=== PATIENT | female | born 1950 | race Caucasian/White ===

== ENCOUNTER → 2019-11-22 09:30 | Outpatient (BNVA) | payer SELFPAY | PROVIDERS: PCP Internal Medicine; Referring Provider Internal Medicine; Visit Provider Dietitian, Registered | DX: Z76.89 Persons encountering health services in other specified circumstances (principal) ==

== ENCOUNTER → 2019-11-29 13:09 | Outpatient (BNVA) | payer SELFPAY | PROVIDERS: PCP Internal Medicine; Referring Provider Internal Medicine; Visit Provider Dietitian, Registered | DX: Z76.89 Persons encountering health services in other specified circumstances (principal) ==

== ENCOUNTER 2019-12-12 17:15 | Emergency (ER) | payer BC, SELFPAY ==
[2019-12-12 17:20] VITALS: BP 162/72; PULSE 63; RESP 16; TEMP 36.3; O2SAT 93
--- NOTE | 2019-12-12 18:13 | CT_ITS ---
EXAMINATION: CT HEAD WITHOUT CONTRAST CT FACIAL BONES WITHOUT CONTRAST CLINICAL INFORMATION: Fall. Pain. COMPARISON: CT head 12/28/2013 TECHNIQUE: Imaging was performed from the skull base to vertex without intravenous administration of contrast. In addition, helical noncontrast CT imaging was acquired through the facial bones and source images were reviewed along with axial reconstructions and sagittal and coronal MPRs. [This CT examination was performed using dose optimization techniques as appropriate, variously including the following: *Automated exposure control *Adjustment of mA and/or kV according to patient size (this includes techniques or standardized protocols for targeted exams where dose is matched to indication/reason for exam; i.e. extremities or head) *Use of iterative reconstruction technique] DLP: 831 mGy-cm FINDINGS: HEAD: No intracranial mass, hemorrhage, or midline shift is visualized. The ventricles and sulci are age-appropriate. No extra-axial collections are identified. FACIAL BONES: There is no evidence of an acute facial bone fracture. The paranasal sinuses are well aerated. The orbits are unremarkable in appearance. CT/CT facial bones wo con IMPRESSION: No acute intracranial process or discrete facial bone fracture.
--- NOTE | 2019-12-12 18:13 | CT_ITS ---
EXAMINATION: CT HEAD WITHOUT CONTRAST CT FACIAL BONES WITHOUT CONTRAST CLINICAL INFORMATION: Fall. Pain. COMPARISON: CT head 12/28/2013 TECHNIQUE: Imaging was performed from the skull base to vertex without intravenous administration of contrast. In addition, helical noncontrast CT imaging was acquired through the facial bones and source images were reviewed along with axial reconstructions and sagittal and coronal MPRs. [This CT examination was performed using dose optimization techniques as appropriate, variously including the following: *Automated exposure control *Adjustment of mA and/or kV according to patient size (this includes techniques or standardized protocols for targeted exams where dose is matched to indication/reason for exam; i.e. extremities or head) *Use of iterative reconstruction technique] DLP: 831 mGy-cm FINDINGS: HEAD: No intracranial mass, hemorrhage, or midline shift is visualized. The ventricles and sulci are age-appropriate. No extra-axial collections are identified. FACIAL BONES: There is no evidence of an acute facial bone fracture. The paranasal sinuses are well aerated. The orbits are unremarkable in appearance. CT/CT head/brain wo con IMPRESSION: No acute intracranial process or discrete facial bone fracture.
--- NOTE | 2019-12-12 18:13 | XR_ITS ---
EXAMINATION: XR HIP, RIGHT CLINICAL INFORMATION: Pain status post fall COMPARISON: 09/20/2019 TECHNIQUE: Single view pelvis with 2 additional views of the right hip. FINDINGS: Again noted is a right total hip prosthesis which appears intact and in good position. Compared with the prior studies, fragmentation of the greater trochanter and lesser trochanter is unchanged. No acute fractures are seen. A pessary is present. Marked degenerative changes present in the spine. XR/XR hip RT w PEL1V IMPRESSION: No acute pelvic or hip fracture status post fall.
--- NOTE | 2019-12-12 18:21 | ED.FALL ---
HPI - Fall General Chief Complaint: Fall Stated Complaint: fall Time Seen by Provider: 12/12/19 18:13 Source: patient Mode of arrival: ambulatory Limitations: no limitations History of Present Illness HPI Narrative: 69-year-old female presenting ambulatory via triage with complaint of states she was looking to daughter's house and she slipped and fell in her driveway falling forward hitting her left side face specifically the cheek area on the ground resulting in abrasion. States she called her primary care doctor given that she had pain at the site and slight headache told to get evaluated for this she went to urgent care and was referred here. She reports slight pain at the site where she has an abrasion on the left-sided cheek as well as slight headache and also from the fall she has pain in the right hip she does mention that she had a total right hip replacement done 6 months ago. She did ambulating from triage. She states she is up-to-date on tetanus vaccination. Denies any other injury or fall. Denies any prodromal symptoms. No recent illness. No fever chills, neck, torso or upper extremity pain. MD complaint: fall Onset (ago): hour(s) Fall from: standing Fall witnessed: yes, by family Place fall occurred: home Loss of consciousness: none Prolonged down time: no Symptoms prior to fall: none Severity: mild Severity scale (1-10): 3 Associated symptoms (after fall): denies Related Data Previous Rx's Medication Instructions Recorded doxycycline monohydrate 100 mg PO BID 7 Days #14 cap 12/12/19 Allergies Allergy/AdvReac Type Severity Reaction Status Date / Time No Known Allergies Allergy Unverified 10/27/19 15:10 [No Known Allergies*] Pt states no known allergy to Allergy Unknown Uncoded 09/20/19 00:00 Review of Systems Review of Systems: Constitutional: No Weight loss, No Fever, No Chills, No Night Sweats, No Fatigue, No Malaise ENT/Mouth: No Hearing loss, No Ear Pain, No Nasal Congestion, No Sinus Pain, No Hoarseness, No sore throat, No Rhinorrhea, No Swallowing Difficulty Eyes: No Eye Pain, No Swelling, No Redness, No Foreign Body, No Discharge, No Vision Changes Cardiovascular: No Chest Pain, No SOB, No Dyspnea on Exertion, No Orthopnea, No Edema, No Palpitations Respiratory: No Cough, No Sputum, No Wheezing, No Smoke Exposure, No Dyspnea Gastrointestinal: No Nausea, No Vomiting, No Diarrhea, No Constipation, No abdominal Pain, No Hematochezia, No Melena Genitourinary: no irregular bleeding, No Dysuria, No Urinary Frequency, No Hematuria, No Urinary Incontinence, No Urgency, No Flank Pain, No Urinary Flow Changes, No Hesitancy Musculoskeletal: as noted uin HPI Skin: No Skin Lesions, No rash Neuro: No Weakness, No Numbness, No Paresthesias, No Loss of Consciousness, No Dizziness, No Headache Psych: No Anxiety/Panic, No Depression, No SI/HI/AH/VH, No Social Issues Heme/Lymph: No Bruising, No Bleeding,No Lymphadenopathy Endocrine: No Polyuria, No Polydipsia, No Temperature Intolerance Yes all other systems are reviewed and are negative [facility] Past Medical History Attestation statement: The following information was validated with the patient. Medical History Asthma Hypertension Surgical History S/P laparoscopic sleeve gastrectomy Social History Social History Alcohol intake: never Smoked in Last 30 Days: No Use of substances other than those prescribed or required for medical reasons: No Advance Directives: No Advance Directives Information Provided: No Physical Exam Vital Signs: Vital Signs: Vital Signs Temp Pulse Resp BP Pulse Ox 12/12/19 17:20 97.4 F 63 16 162/72 H 93 Body Mass Index 0.0 Reviewed Const: General: cooperative and healthy appearing; No acute distress or intoxicated appearing Nutritional Appearance: average body habitus Orientation/consciousness: patient oriented x3 HENMT: Other: Head: Yes normal to inspection Ears: hearing grossly normal bilaterally Eyes: General: appearance normal, both eyes and all related structures Visual Beaulieu: normal visual beaulieu by confrontation Neck: Neck: Yes normal visual inspection and No tender Thyroid: Thyroid normal Chest: Chest palpation & inspection: normal inspection of the chest Resp: Effort & Inspection: normal respiratory effort Cardio: Jugular venous distension: no JVD GI: Inspection: Yes normal to inspection Percussion: Yes normal to percussion Auscultation: normal bowel sounds : General: Yes no CVA tenderness Back/Spine/Pelvis: Back: no CVA tenderness Skin: General skin exam: no rashes or lesions noted Neuro: General: patient oriented x3 Extrem: General: Yes normal to inspection Course Course Course Narrative: imaging unremarkable. Abrasion to the left side cheek with slight erythema will go ahead and start empiric antibiotics. She is already up-to-date on tetanus vaccination. Findings/ plan reviewed. Patient ambulatory with steady gait to the bathroom. Clear precaution return follow-up instructions provided. Stable for discharge. MDM - Fall Imaging Data right hip with pelvis x-ray: Radiologist's impression: [address] [address] XRay Report Signed Patient: Shilpa Hartman#: [id number] : 1950cct:[id number] Age/Sex: 69 / FADM Date: 12/12/19 Loc: HO.ED Attending Dr: Ordering Physician: José Luis Bhatia NP Date of Service: 12/12/19 Procedure(s): XR hip RT w PEL1V Accession Number(s): [id number] cc: José Luis Bhatia [employer]~ EXAMINATION: XR HIP, RIGHT CLINICAL INFORMATION: Pain status post fall COMPARISON: 09/20/2019 TECHNIQUE: Single view pelvis with 2 additional views of the right hip. FINDINGS: Again noted is a right total hip prosthesis which appears intact and in good position. Compared with the prior studies, fragmentation of the greater trochanter and lesser trochanter is unchanged. No acute fractures are seen. A pessary is present. Marked degenerative changes present in the spine. XR/XR hip RT w PEL1V IMPRESSION: No acute pelvic or hip fracture status post fall. Dictated By:ISH PARKER MD Signed By:<Electronically signed by ISH PARKER MD in [place]>12/12/19 1847 DD/ 1813 TD/TT: Information Engineer: DANA head/maxillofacial CT: Radiologist's impression: Shilpa Hartman 69 F [address] [address] [address] Scan Report Signed Patient: Shilpa Hartman#: [id number] : 1950cct:[id number] Age/Sex: 69 / FADM Date: 12/12/19 Loc: HO.ED Attending Dr: Ordering Physician: José Luis Bhatia NP Date of Service: 12/12/19 Procedure(s): CT facial bones wo con Accession Number(s): [id number] cc: José Luis Bhatia [employer]~ EXAMINATION: CT HEAD WITHOUT CONTRAST CT FACIAL BONES WITHOUT CONTRAST CLINICAL INFORMATION: Fall. Pain. COMPARISON: CT head 12/28/2013 TECHNIQUE: Imaging was performed from the skull base to vertex without intravenous administration of contrast. In addition, helical noncontrast CT imaging was acquired through the facial bones and source images were reviewed along with axial reconstructions and sagittal and coronal MPRs. [This CT examination was performed using dose optimization techniques as appropriate, variously including the following: *Automated exposure control *Adjustment of mA and/or kV according to patient size (this includes techniques or standardized protocols for targeted exams where dose is matched to indication/reason for exam; i.e. extremities or head) *Use of iterative reconstruction technique] DLP: 831 mGy-cm FINDINGS: HEAD: No intracranial mass, hemorrhage, or midline shift is visualized. The ventricles and sulci are age-appropriate. No extra-axial collections are identified. FACIAL BONES: There is no evidence of an acute facial bone fracture. The paranasal sinuses are well aerated. The orbits are unremarkable in appearance. CT/CT facial bones wo con IMPRESSION: No acute intracranial process or discrete facial bone fracture. Dictated By:ORA JC MD Signed By:<Electronically signed by ORA JC MD in [place]>12/12/191908 DD/ 12 TD/TT: Information Engineer: YOHAN Discharge Plan Discharge Clinical Impression: Abrasion of face, Fall, Contusion of hip, right Patient Disposition: Home, Self-Care Instructions: Fall Prevention for Older Adults (ED), Abrasion (ED), Hip Contusion (ED) Prescriptions: New doxycycline monohydrate 100 mg capsule 100 mg PO BID 7 Days Qty: 14 RF: 0 Referrals: Eddie Messina MD [Primary Care Provider] - 1 week
[2019-12-12] MEDS: Acetaminophen 325 MG TABLET 975 MG PO (19:18)
--- NOTE | 2019-12-12 20:10 | PC.NURSE ---
ASSUMED CARE OF PT. PT SITTING UP IN STRETCHER C/O PAIN TO FACE. PT ALERT, RESPIRATIONS EASY, N/L. PA IN ROOM FOR RE-EVAL. AWAITING FURTHER ORDERS,
== END 2019-12-12 20:36 | disposition home or self-care (01) ==
PROVIDERS: Emergency Provider Emergency Medicine; PCP Internal Medicine
DX: S00.81XA Abrasion of other part of head, initial encounter (principal); S70.01XA Contusion of right hip, initial encounter; M25.551 Pain in right hip; R51.9 Headache, unspecified; W01.0XXA Fall on same level from slipping, tripping and stumbling without subsequent striking against object, initial encounter; Y93.01 Activity, walking, marching and hiking; Y92.488 Other paved roadways as the place of occurrence of the external cause; Y99.9 Unspecified external cause status
CPT/HCPCS: 70450; 70486; 73502; 99284

== ENCOUNTER 2019-12-15 13:11 | Outpatient (REF) | payer BC, SELFPAY ==
[2019-12-15 13:40] LABS: MANUAL DIFF FLAG NO
[2019-12-15 13:48] LABS: Basophils Absolute Auto 0.1 X10*3/uL (0.0-0.2); Basophils Percent Auto 0.9 % (0-2); Eosinophils Absolute Auto 0.1 X10*3/uL (0.0-0.4); Eosinophils Percent Auto 1.3 % (0-4); Hematocrit 42.4 % (37-47); Hemoglobin 13.6 g/dl (12.0-16.0); Imm Gran Abs Auto 0.03 X10*3/uL (0.00-0.03); Imm Gran Pct Auto 0.4 % (0.0-0.4); Lymphocytes Absolute Auto 2.5 X10*3/uL (1.2-4.9); Lymphocytes Percent Auto 33.7 % (20-40); Mean Corpuscular HGB Conc 32.1 g/dl (31.0-35.0); Mean Corpuscular Hemoglobin 28.9 pg (27.0-33.0); Mean Platelet Volume 10.9 fL (9.4-12.3); Monocytes Absolute Auto 0.7 X10*3/uL (0.1-1.2); Monocytes Percent Auto 8.9 % (2-11); Neutrophils Absolute Auto 4.1 X10*3/uL (2.0-8.3); Neutrophils Percent Auto 54.8 % (45-73); Platelet Count 222 X10*3/uL (160-400); Red Blood Count 4.71 X10*6/uL (4.20-5.50); Red Cell Distribution Width 14.5 % (11.0-16.0); White Blood Count 7.5 X10*3/uL (4.8-10.8)
[2019-12-15 14:08] LABS: Alanine Aminotransferase 40 U/L (0-31); Albumin Level 4.1 g/dL (3.5-5.0); Alkaline Phosphatase 108 U/L (39-117); Anion Gap 10 (12-20); Aspartate Amino Transferase 41 U/L (5-31); Bilirubin Total 0.3 mg/dL (0.0-1.0); Blood Urea Nitrogen 25 mg/dL (9-16); Calcium 9.6 mg/dL (8.4-10.2); Carbon Dioxide 31 mmol/L (22-29); Chloride 103 mmol/L (96-108); Estimated Glomerular Filt Rate > 60; Glucose Random 76 mg/dL (60-115); Potassium 4.5 mmol/l (3.3-5.1); Sodium 139 mmol/L (135-145); Total Protein 6.9 g/dL (6.5-8.0)
[2019-12-15 14:30] LABS: Thyroid Stimulating Hormone 1.02 mIU/mL (0.32-4.0)
== END 2019-12-15 13:12 | disposition home or self-care (01) ==
LOC: HO.LAB 13:11
PROVIDERS: PCP Internal Medicine; Visit Provider Psychiatry & Neurology Psychiatry
DX: Z79.899 Other long term (current) drug therapy (principal)
CPT/HCPCS: 36415; 80053; 84443; 85025

== ENCOUNTER → 2020-01-11 14:29 | Outpatient (BNVA) | payer BC, SELFPAY | PROVIDERS: PCP Internal Medicine; Visit Provider Orthopaedic Surgery | DX: Z76.89 Persons encountering health services in other specified circumstances (principal) ==

== ENCOUNTER 2020-02-21 09:00 | Outpatient (RCR) | payer BC, SELFPAY | END 2020-02-21 09:52 | disposition other institution (70) | LOC: HO.PT 09:00 | PROVIDERS: PCP Internal Medicine; Visit Provider Nurse Practitioner Adult Health | DX: R26.81 Unsteadiness on feet (principal) | CPT/HCPCS: 97110; 97112; 97116; 97162; 97530 ==

== ENCOUNTER 2020-05-16 08:51 | Outpatient (REF) | payer BC, SELFPAY ==
--- NOTE | ~2020-05-16 | XR_ITS ---
EXAMINATION: XR HIP, RIGHT CLINICAL INFORMATION: Hip pain COMPARISON: 12/12/2019 x-ray TECHNIQUE: Pelvis 2 views. 2 views of the right hip. FINDINGS: Right hip arthroplasty is stable in position and alignment. No evidence of hardware loosening or failure. 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 Dystrophic ossification about the greater trochanter, stable from previous. Moderate left hip arthritis, joint space loss, osteophytes, sclerosis and cysts. Greater trochanteric spurring. Mild bilateral SI joint arthritis. Prominent degenerative changes in the lower lumbar spine. No acute pelvic fractures seen. XR/XR hip RT w PEL1V IMPRESSION: 1. Stable appearance of the right total hip arthroplasty. No evidence of hardware failure. 2. Moderate left hip arthritis.
== END 2020-05-16 08:52 | disposition home or self-care (01) ==
LOC: HO.HOSX 08:51
PROVIDERS: Visit Provider Orthopaedic Surgery
DX: Z96.641 Presence of right artificial hip joint (principal); T84.84XA Pain due to internal orthopedic prosthetic devices, implants and grafts, initial encounter
CPT/HCPCS: 73502

== ENCOUNTER 2020-08-09 14:20 | Outpatient (REF) | payer BC, SELFPAY ==
[2020-08-09 14:35] LABS: MANUAL DIFF FLAG NO
[2020-08-09 14:45] LABS: Basophils Percent Auto 0.5 % (0-2); Eosinophils Absolute Auto 0.2 X10*3/uL (0.0-0.4); Eosinophils Percent Auto 2.3 % (0-4); Hematocrit 43.1 % (37-47); Hemoglobin 13.4 g/dl (12.0-16.0); Imm Gran Abs Auto 0.03 X10*3/uL (0.00-0.03); Imm Gran Pct Auto 0.4 % (0.0-0.4); Lymphocytes Absolute Auto 1.6 X10*3/uL (1.2-4.9); Lymphocytes Percent Auto 20.7 % (20-40); Mean Corpuscular HGB Conc 31.1 g/dl (31.0-35.0); Mean Corpuscular Hemoglobin 28.2 pg (27.0-33.0); Mean Corpuscular Volume 90.5 fL (80-98); Mean Platelet Volume 10.6 fL (9.4-12.3); Monocytes Absolute Auto 0.4 X10*3/uL (0.1-1.2); Monocytes Percent Auto 5.7 % (2-11); Neutrophils Absolute Auto 5.4 X10*3/uL (2.0-8.3); Neutrophils Percent Auto 70.4 % (45-73); Platelet Count 233 X10*3/uL (160-400); Red Blood Count 4.76 X10*6/uL (4.20-5.50); Red Cell Distribution Width 14.8 % (11.0-16.0); White Blood Count 7.7 X10*3/uL (4.8-10.8)
[2020-08-09 14:58] LABS: Alanine Aminotransferase 35 U/L (0-31); Albumin Level 3.9 g/dL (3.5-5.0); Alkaline Phosphatase 94 U/L (39-117); Anion Gap 10 (12-20); Aspartate Amino Transferase 35 U/L (5-31); Bilirubin Total 0.6 mg/dL (0.0-1.0); Blood Urea Nitrogen 20 mg/dL (9-16); Calcium 9.9 mg/dL (8.4-10.2); Carbon Dioxide 28 mmol/L (22-29); Chloride 111 mmol/L (96-108); Estimated Glomerular Filt Rate > 60; Glucose Random 76 mg/dL (60-115); Potassium 4.2 mmol/L (3.3-5.1); Sodium 145 mmol/L (135-145); Total Protein 6.5 g/dL (6.5-8.0)
[2020-08-09 15:18] LABS: Thyroid Stimulating Hormone 0.68 uIU/mL (0.32-4.0)
== END 2020-08-09 14:21 | disposition home or self-care (01) ==
LOC: HO.LAB 14:20
PROVIDERS: PCP Internal Medicine; Visit Provider Psychiatry & Neurology Psychiatry
DX: Z79.899 Other long term (current) drug therapy (principal)
CPT/HCPCS: 36415; 80053; 84443; 85025

== ENCOUNTER → 2020-09-27 14:46 | Outpatient (BNVA) | payer BC, SELFPAY | PROVIDERS: PCP Internal Medicine; Referring Provider Internal Medicine; Visit Provider Dietitian, Registered | DX: Z90.3 Acquired absence of stomach [part of] (principal); I10 Essential (primary) hypertension; Z71.3 Dietary counseling and surveillance | CPT/HCPCS: 97803 ==

== ENCOUNTER 2020-10-07 14:32 | Emergency (ER) | payer BC, SELFPAY ==
[2020-10-07 14:39] VITALS: BP 128/99; PULSE 64; RESP 18; TEMP 36.8; O2SAT 98; BMI 25.0
[2020-10-07 14:57] LABS: Glucose Urine UA NEG (NEG); Leukocyte Esterase Urine 3+ (NEG); Nitrite Urine POS (NEG); UACC Culture Trigger YES; Urine Blood 2+ (NEG); Urine Ketones NEG (NEG); Urine Protein 1+ MG/DL (NEG-TRACE)
[2020-10-07 14:59] LABS: Appearance Urine HAZY; Color Urine YELLOW
[2020-10-07 15:12] LABS: Bacteria Urine 3+ /LPF
--- NOTE | 2020-10-07 15:50 | ED_ITS ---
HPI - Female Genitourinary General Chief complaint: Urogenital-Female Stated complaint: ?uti Time Seen by Provider: 10/07/20 15:49 Source: patient Mode of arrival: ambulatory Limitations: no limitations History of Present Illness HPI Narrative: 69 yo female presenting with increased urinary frequency/urgency, foul smelling urine, and cloudy urine for the last few days. She gets frequent UTIs and states her symptoms are exactly like her prior UTI's. No fever, chills, N/V/D or abdominal pain. She feels run down and without a lot of energy. MD elicited complaint: UTI Pertinent past history: recurrent UTIs Onset (ago): day(s) Location of symptoms: suprapubic Severity: moderate Female Urogenital Radiation: Non-Radiating Severity scale (1-10): 5 Quality of pain: aching Consistency: intermittent Vaginal discharge: none Urinary symptoms: Urgency, Frequency and Foul Smelling Urine Exacerbating factors: urination Relieving factors: none Associated symptoms: denies other symptoms Treatment prior to arrival: none Sexual activity: No Related Data Home Medications Medication Instructions Recorded Confirmed bupropion HCl 200 mg tablet,12 hr PO 01/11/20 sustained-release (Wellbutrin SR) gabapentin 300 mg capsule 300 mg PO BID 01/11/20 Previous Rx's Medication Instructions Recorded doxycycline monohydrate 100 mg 100 mg PO BID 7 Days #14 cap 12/12/19 capsule nitrofurantoin 100 mg PO Q12H 7 Days #14 cap 10/07/20 monohydrate/macrocrystals 100 mg capsule (Macrobid) Allergies Allergy/AdvReac Type Severity Reaction Status Date / Time No Known Allergies Allergy Verified 10/07/20 14:39 [No Known Allergies*] Review of Systems Review of Systems: Constitutional: No Fever, No Chills Cardiovascular: No Chest Pain, No SOB Respiratory: No Cough, No Sputum Gastrointestinal: No Nausea, No Vomiting, No Diarrhea, No abdominal Pain Genitourinary: No Dysuria, + Urinary Frequency, No Hematuria Musculoskeletal: No joint pain, No Myalgias Skin: No Skin Lesions, No rash Neuro: No Weakness, No Numbness, No Dizziness, No Headache Heme/Lymph: No Bruising, No Lymphadenopathy PMFSH Past Medical History Medical History (Updated 10/07/20 @ 15:55 by Daria Renschler, PA) Asthma Hypertension UTI (urinary tract infection) Surgical History History of total left hip arthroplasty S/P laparoscopic sleeve gastrectomy Social History Social History (Updated 12/19/19 @ 12:21 by Bernadette Gardner CMA) Alcohol intake: never Advance Directives: No Advance Directives Information Provided: No 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al status: retired 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: Right Handed Physical Exam Vital Signs: Vital Signs: Last Vital Signs Temp 98.2 F 10/07/20 14:39 Pulse 64 10/07/20 14:39 Resp 18 10/07/20 14:39 BP 128/99 H 10/07/20 14:39 Pulse Ox 98 10/07/20 14:39 Body Mass Index 25.0 Appearance: Alert. Oriented X3. No acute distress. Eyes: Normal external inspection ENT: Pharynx normal. Neck: Normal inspection. Neck supple. CVS: Normal heart rate and rhythm. Pulses normal. Respiratory: No respiratory distress. Breath sounds normal. Abdomen: Soft and nontender. Mild lower suprapubic tenderness, no guarding. +BS x4. Pelvic deferred Skin: Skin warm and dry. Normal skin color. Normal skin turgor. No rashes. Extremities: No lower extremity edema. Neuro: Oriented X 3. No motor deficit. No sensory deficit. Course Course Course Narrative: 69 y/o female presenting with urinary frequency, urgency and foul smelling urine. Patient appears well and VS are normal. She has been treated with macrobid as she has had success with that in the past. Sent to pharmacy. She has an appointment with her PCP tomorrow. Stable for d/c home. MDM - Female Genitourinary Lab Data Labs: Lab Results 10/07/20 Range/Units 14:52 Urine Color YELLOW Urine Appearance HAZY Urine pH 6.0 (5.0-8.0) Ur Specific [place] 1.010 (1.005-1.025) Urine Protein 1+ H (NEG-TRACE) MG/DL Urine Glucose (UA) NEG (NEG) MG/DL Urine Ketones NEG (NEG) MG/DL Urine Blood 2+ H (NEG) Urine Nitrite POS H (NEG) Ur Leukocyte Esterase 3+ H (NEG) Urine RBC 5-9 H (0) /HPF Urine WBC 76-150 H (0-4) /HPF Ur Squamous Epith Cells NONE /LPF Urine Bacteria 3+ /LPF Critical Care Time Critical Care Time Critical Care Time: No Discharge Plan Discharge Clinical Impression: Acute UTI Patient Disposition: Home, Self-Care Instructions: Urinary Tract Infection in Women (ED) Additional Instructions: Take the prescribed antibiotic as directed. Increase your oral hydration, drink plenty of water. Follow up with your doctor tomorrow as scheduled. If you develop new or worsening symptoms call 911 or come back to the ER for further evaluation. Prescriptions: New nitrofurantoin monohyd/m-cryst [Macrobid] 100 mg capsule 100 mg PO Q12H 7 Days Qty: 14 RF: 0 No Action doxycycline monohydrate 100 mg capsule 100 mg PO BID 7 Days Qty: 14 RF: 0 Interventions: ED Discharge Assessment Last Done: 10/07/20 16:07 Discharge Date/Time: 10/07/20 16:08
== END 2020-10-07 16:08 | disposition home or self-care (01) ==
PROVIDERS: Emergency Provider Emergency Medicine; PCP Internal Medicine
DX: N39.0 Urinary tract infection, site not specified (principal); R35.0 Frequency of micturition; Z79.899 Other long term (current) drug therapy
CPT/HCPCS: 81001; 87086; 87088; 87186; 99283; 99284

== ENCOUNTER 2020-10-16 11:12 | Emergency (ER) | payer BC, SELFPAY | END 2020-10-16 12:15 | disposition left against medical advice (07) | PROVIDERS: Emergency Provider Emergency Medicine; PCP Internal Medicine | DX: N39.0 Urinary tract infection, site not specified (principal) ==

== ENCOUNTER 2020-10-17 11:19 | Outpatient (REF) | payer BC, SELFPAY | END 2020-10-17 11:20 | disposition home or self-care (01) | LOC: HO.LNP 11:19 | PROVIDERS: Visit Provider Internal Medicine | DX: N39.0 Urinary tract infection, site not specified (principal) | CPT/HCPCS: 87086 ==

== ENCOUNTER 2020-11-30 09:00 | Outpatient (RCR) | payer BC, SELFPAY | END 2020-12-14 07:52 | disposition home or self-care (01) | LOC: HO.PT 09:00 | PROVIDERS: PCP Internal Medicine; Visit Provider Nurse Practitioner Adult Health | DX: R26.81 Unsteadiness on feet (principal) | CPT/HCPCS: 97110; 97112; 97163 ==

== ENCOUNTER → 2020-12-05 10:22 | Outpatient (BNVA) | payer BC, SELFPAY | PROVIDERS: PCP Internal Medicine; Referring Provider Psychiatry & Neurology Neurology with Special Qualifications in Child Neurology; Visit Provider Physician Assistant Surgical ==

== ENCOUNTER → 2020-12-17 13:33 | Outpatient (BNVA) | payer BC, SELFPAY | PROVIDERS: PCP Internal Medicine; Visit Provider Orthopaedic Surgery ==

== ENCOUNTER 2021-01-24 08:02 | Outpatient (REF) | payer BC, SELFPAY | END 2021-01-24 08:03 | disposition home or self-care (01) | LOC: HO.HOSX 08:02 | PROVIDERS: Visit Provider Physician Assistant | DX: Z13.89 Encounter for screening for other disorder (principal) ==

== ENCOUNTER → 2021-02-11 10:46 | Outpatient (BNVA) | payer BC, SELFPAY | PROVIDERS: PCP Internal Medicine; Visit Provider Orthopaedic Surgery ==

== ENCOUNTER → 2021-06-07 08:37 | Outpatient (BNVA) | payer BC, SELFPAY | PROVIDERS: PCP Internal Medicine; Visit Provider Physician Assistant | DX: Z13.89 Encounter for screening for other disorder (principal) ==

== ENCOUNTER 2021-08-24 07:33 | Inpatient (IN) | payer MEDICARE, BC, SELFPAY ==
[2021-08-24] VITALS (16 sets, daily range): BP systolic 98–153; BP diastolic 46–81; PULSE 87–152; RESP 16–34; TEMP 37.1–37.8; O2SAT 92–97; BMI 26.4
--- NOTE | ~2021-08-24 | XR_ITS ---
EXAMINATION: XR CHEST CLINICAL INFORMATION: Shortness of breath COMPARISON: 08/24/2021 TECHNIQUE: Frontal view of the chest was obtained. FINDINGS: Lung volumes are symmetric. There is persistent dense retrocardiac opacity and small left pleural effusion. Mild, somewhat streaky opacity is redemonstrated at the right lung base. No appreciable pneumothorax or overt pulmonary edema. The cardiomediastinal contour is unremarkable. There is severe degenerative change at the left glenohumeral joint. XR/XR chest 1V IMPRESSION: Persistent dense retrocardiac opacity and small left pleural effusion. Somewhat streaky opacity also noted at the right lung base. Overall appearance is similar to 08/24/2021.
--- NOTE | ~2021-08-24 | XR_ITS ---
EXAMINATION: XR CHEST CLINICAL INFORMATION: Persistent shortness of breath COMPARISON: 08/27/2021 TECHNIQUE: Frontal view of the chest was obtained. FINDINGS: Significant interval worsening. There is near complete opacification of the left hemithorax. This opacity appears to be predominantly due to presence of a pleural effusion which compresses the left lung. The underlying lung is poorly evaluated, probably contains combination of atelectasis and consolidation. There is persistent streaky opacity of airspace disease or atelectasis in the medial right base, and small patchy opacity is also present in right lateral base. No pneumothorax. Cardiac silhouette is obscured. Pulmonary vascular pattern is grossly normal. Old fracture deformity of the right posterior fifth rib. Osteoarthritis of glenohumeral joints, left worse than right. Multiple surgical clips in the upper abdomen. XR/XR chest 1V IMPRESSION: Interval worsening opacification of the left lung. If the patient clinically has pneumonia, then this could represent significant worsening of a parapneumonic effusion. There are persistent opacities from atelectasis or infiltrates in the right lower lung.
--- NOTE | ~2021-08-24 | XR_ITS ---
EXAMINATION: XR CHEST CLINICAL INFORMATION: Shortness of breath and cough. Covid infection. COMPARISON: Previous chest x-ray most recent April 2018 TECHNIQUE: Frontal view of the chest was obtained. FINDINGS: The cardiac and mediastinal contours are stable. There are bilateral lower lobe patchy infiltrates, left greater than right. There is a small left pleural effusion. There is no right pleural effusion. There is no pneumothorax. There are surgical changes under the left hemidiaphragm. There is an old right posterior fifth rib fracture. There are degenerative changes of the spine and scoliosis. XR/XR chest 1V IMPRESSION: Bibasilar infiltrates, left greater than right and small left pleural effusion.
--- NOTE | ~2021-08-24 | CT_ITS ---
EXAMINATION: CT ANGIOGRAM OF THE CHEST WITH AND WITHOUT CONTRAST (CT PULMONARY ANGIOGRAM FOR PE) CLINICAL INFORMATION: Reason for Exam Recent travel, SOB, elevated D-dimer COMPARISON: Previous chest x-ray most recent from earlier the same day and chest CT June 2014 TECHNIQUE: Prior to contrast administration, noncontrast localization images were obtained. Subsequently, multidetector volumetric imaging was performed from the thoracic inlet to below the diaphragms following the administration of 65 mL Omnipaque 350 intravenous contrast. No contrast reaction reported Sagittal, coronal, and MIP oblique sagittal reformatted images were obtained on the CT workstation, uploaded to PACS, and reviewed. This CT examination was performed using dose optimization techniques as appropriate, variously including the following: *Automated exposure control *Adjustment of mA and/or kV according to patient size (this includes techniques or standardized protocols for targeted exams where dose is matched to indication/reason for exam; i.e. extremities or head) *Use of iterative reconstruction technique Total exam dose-length product 221 mGy-cm FINDINGS: QUALITY OF STUDY/CONTRAST BOLUS: Satisfactory. PULMONARY ARTERIES: No central or segmental pulmonary emboli. THORACIC AORTA: No aneurysm or dissection. LUNG: There is bibasilar atelectasis and consolidation in the lingula, right middle lobe and bilateral lower lobes, left greater than right. Or nodular opacities seen in the left lower lobe measuring 1 cm the superior segment axial image 25 and 1.2 cm more centrally axial image 29 series 6. PLEURA: There is a small left pleural effusion, partially loculated in the left pleural fissure.. There is no right pleural effusion. MEDIASTINUM: The heart is upper normal in size. Mild coronary artery calcification. No pericardial effusion. Shotty bilateral hilar and mediastinal lymphadenopathy. No enlarged lymph nodes. No evidence of septal bowing or right heart strain. CHEST WALL/AXILLA: No axillary or internal mammary lymphadenopathy. OSSEOUS STRUCTURES: No acute or suspicious osseous abnormality. Degenerative changes to the spine. Mild curvature of the thoracic spine to the right. Severe arthritis at the left shoulder joint. UPPER ABDOMEN: Surgical changes to the stomach and question gastric bypass.. No reflux of contrast into the hepatic veins to suggest elevated right heart pressures. CT/CT angio chest PE protocol IMPRESSION: No evidence of pulmonary embolism. Upper normal-size heart and mild coronary artery calcification. Right basilar atelectasis/pneumonia, left greater than right. Follow-up chest x-ray following treatment to ensure resolution recommended. Small left pleural effusion. VTE: negative
--- NOTE | ~2021-08-24 | CT_ITS ---
EXAMINATION: CT CHEST WITHOUT CONTRAST CLINICAL INFORMATION: Loculated effusion, status post chemical decortication. COMPARISON: CT chest 08/28/2021 TECHNIQUE: Multidetector volumetric CT imaging of the chest was done. Axial MIP volume rendering provided. Sagittal and coronal reformatted images were obtained. This CT examination was performed using dose optimization techniques as appropriate, variously including the following: *Automated exposure control *Adjustment of mA and/or kV according to patient size (this includes techniques or standardized protocols for targeted exams where dose is matched to indication/reason for exam; i.e. extremities or head) *Use of iterative reconstruction technique DLP: 254 mGy-cm FINDINGS: LOOM TUNER: Expanded lungs. LUNGS: Status post insertion of a left chest catheter there is significant improvement in the left loculated pleural effusion. The catheter lies along the left lateral hemithorax. There is airspace consolidation in both lower lobes there is focal atelectatic changes in the right lung base with air bronchogram likely combination of consolidation or atelectasis. There is underlying small right pleural effusion. There is mild thickening of left major fissure likely from pleural effusion. MEDIASTINUM: Thyroid lobes are symmetric and normal. The central trachea and the bronchi widely patent. Heart size is enlarged with coronary artery calcifications. No pericardial effusions seen. No abnormal mediastinal adenopathy. PLEURA: There is minimal right pleural effusion. Significant improvement in the left pleural effusion status post placement of left chest catheter. AXILLA: No abnormal lymph nodes seen. The chest wasn't unremarkable. UPPER ABDOMEN: Visualized liver, spleen, pancreas and gallbladder is unremarkable. Likely changes of gastric sleeve surgery. OSSEOUS STRUCTURES: There is exaggerated thoracic kyphosis but no fracture or lytic process seen. CT/CT chest wo con IMPRESSION: Significant improvement of left pleural effusion following placement of a left chest catheter which lies along the left lateral chest wall. There is bibasilar consolidation/atelectasis. A small right pleural effusion as before. Cardiomegaly with coronary artery calcifications. No pericardial effusion seen. Fleischner guidelines were followed.
--- NOTE | ~2021-08-24 | XR_ITS ---
EXAMINATION: XR CHEST CLINICAL INFORMATION: Post chest tube removal COMPARISON: Previous chest x-ray most recent from yesterday TECHNIQUE: Frontal view of the chest was obtained. FINDINGS: The left pigtail chest tube has been removed. There may be a tiny pneumothorax lateral to the left lung base. This does not appear appreciably changed. There is a small left pleural effusion that appears unchanged. The cardiac and mediastinal contours are stable. There is atelectasis or small infiltrate in the left lower lobe. The right lung is clear. There is a right upper extremity PICC line with tip projecting over the SVC. There are degenerative changes of the spine and shoulders. XR/XR chest 1V IMPRESSION: Question tiny stable pneumothorax adjacent to the lateral left lower lung. Stable small left pleural effusion. Atelectasis/consolidation at the left lung base also stable.
--- NOTE | ~2021-08-24 | CT_ITS ---
PROCEDURE: CT GUIDED INSERTION, PLEURAL TUNNEL CATHETER CLINICAL INFORMATION: Left loculated pleural effusion. COMPARISON: 09/02/2021. TECHNIQUE: CT fluoroscopy-guided left chest tube placement. This CT examination was performed using dose optimization techniques as appropriate, variously including the following: *Automated exposure control *Adjustment of mA and/or kV according to patient size (this includes techniques or standardized protocols for targeted exams where dose is matched to indication/reason for exam; i.e. extremities or head) *Use of iterative reconstruction technique DLP: 204 mGy-cm FINDINGS: Informed consent was obtained from the patient prior to the procedure. During this process, the procedure and potential alternatives were explained, along with the intended outcome and benefits. The risks of the procedure, as well as the risk of not doing the procedure, were discussed. The patient was given the opportunity to ask questions regarding the procedure and appeared competent to make medical decisions. A signed consent form which documents this discussion was placed in the medical record. Using sterile technique and CT fluoroscopic guidance a 5 Polish Yueh needle was directed into the left pleural space from a posterior lateral approach. Approximately 3 mL of clear straw-colored fluid was removed and set aside for culture. A guidewire was then placed through the Yueh catheter and coiled within the left pleural space. Following fascial dilatation a 12 Polish drainage catheter was placed. By the time the patient left the procedure room 180 mL of pleural fluid had drained. Postprocedure scanning demonstrates residual fluid and atelectatic lung with the effusion being partially loculated. The catheter was placed to Waterseal drainage. Patient tolerated procedure without difficulty. The catheter was secured to the skin with a 3-0 monofilament suture and a StatLock. CT/CT chest tube placement IMPRESSION: Placement of 12 Polish left-sided chest tube into partially loculated pleural effusion.
--- NOTE | ~2021-08-24 | CT_ITS ---
EXAMINATION: CT head/brain wo con CLINICAL INFORMATION: Reason for Exam acute confusion COMPARISON: CT brain 12/12/2019 TECHNIQUE: Contiguous axial imaging was performed from the skull base to vertex without intravenous contrast. Sagittal and coronal reformatted images were obtained. This CT examination was performed using dose optimization techniques as appropriate, variously including the following: * Automated exposure control * Adjustment of mA and/or kV according to patient size (this includes techniques or standardized protocols for targeted exams where dose is matched to indication/reason for exam; i.e. extremities or head) Use of iterative reconstruction technique DLP: 588 mGy-cm FINDINGS: No acute osseous or soft tissue abnormality. The mastoid air cells and visualized portions of the paranasal sinuses are well aerated. There is no evidence of acute intracranial hemorrhage or territorial infarction. No abnormal mass effect or midline shift is seen. Fox to white matter differentiation is well preserved. No extra-axial fluid collections are identified. No hydrocephalus. Patchy periventricular and deep white matter hypoattenuation is consistent with mild small vessel ischemic changes. CT/CT head/brain wo con IMPRESSION: 1. No acute intracranial abnormality.
--- NOTE | ~2021-08-24 | CT_ITS ---
EXAMINATION: CT CHEST WITHOUT CONTRAST CLINICAL INFORMATION: Normal chest radiograph COMPARISON: Chest radiograph the small and 8:[address] angiogram chest 08/24/2021 TECHNIQUE: Multidetector volumetric CT imaging of the chest was done. Axial MIP volume rendering provided. Sagittal and coronal reformatted images were obtained. This CT examination was performed using dose optimization techniques as appropriate, variously including the following: *Automated exposure control *Adjustment of mA and/or kV according to patient size (this includes techniques or standardized protocols for targeted exams where dose is matched to indication/reason for exam; i.e. extremities or head) *Use of iterative reconstruction technique DLP: 260 mGy-cm FINDINGS: INCIDENT COORDINATOR: The appearance of the research engineer radiograph and chest radiograph from earlier this morning is dramatically different with significantly more aerated lung on the left. Did this patient undergo a thoracentesis today?? LUNGS AND PLEURAL: A small right effusion is present. Right basilar atelectasis is seen. There is a small 3 mm right lower lobe perifissural nodule (5:331). There is marked the left lower lobe with only a small amount of aerated left upper lobe present. The lingula is collapsed most likely as well. MEDIASTINUM: Heart size mildly enlarged. Marked coronary calcifications are present. No mediastinal or hilar lymphadenopathy is seen. Some small lymph nodes are present. AXILLA: No lymphadenopathy. UPPER ABDOMEN: Unremarkable. OSSEOUS STRUCTURES: Unremarkable. CT/CT chest wo con IMPRESSION: Collapse of left lower lobe and portion of the left upper lobe apparently improved when compared to this morning's chest radiograph. Did this patient undergo a thoracentesis? Large left-sided effusion remains. Other findings as described above. Fleischner guidelines were followed.
--- NOTE | ~2021-08-24 | XR_ITS ---
EXAMINATION: XR CHEST CLINICAL INFORMATION: Verified PICC line. COMPARISON: September 02, 2021. TECHNIQUE: Portable AP view of the chest was obtained. XR/XR chest 1V FINDINGS/IMPRESSION: The tip of a right upper extremity PICC line projects over the expected location of the superior vena cava. The tip of a left chest tube projects over the periphery of the left lung. Previously seen large left effusion has markedly improved, with only a small residual left hydropneumothorax. Small right basilar hazy and patchy density suggests pleural fluid, atelectasis and/or infiltrate. The cardiac silhouette is poorly evaluated. The aorta is atherosclerotic. There are degenerative changes of the spine, with lumbar levocurvature. Severe osteoarthritis involves the left humeral joint, and mild to moderate osteoarthritis involves the right. Surgical clips project over the left upper quadrant.
[2021-08-24 07:57] LABS: COVID-19 Test Positive (Negative)
--- NOTE | 2021-08-24 08:33 | ECG_ITS ---
Test Reason : SOB Blood Pressure : / mmHG Vent. Rate : 132 BPM Atrial Rate : 000 BPM P-R Int : 000 ms QRS Dur : 114 ms QT Int : 272 ms P-R-T Axes : 000 -44 131 degrees QTc Int : 403 ms Atrial fibrillation with rapid ventricular response Left axis deviation Incomplete left bundle branch block Moderate voltage criteria for LVH, may be normal variant ( R in aVL , [place] product ) ST & T wave abnormality, consider lateral ischemia Abnormal ECG When compared with ECG of 13-APR-2018 14:55, Atrial fibrillation with rapid ventricular response has replaced Normal sinus rhythm ST more depressed Lateral leads Referred By: Daria Johnson Electronically Signed By:MISTY HAMILTON MD
--- NOTE | 2021-08-24 08:47 | ED_ITS ---
HPI - General Adult General Chief complaint: Upper Respiratory Symptoms Stated complaint: cough just returned from [place] Time Seen by Provider: 08/24/21 07:59 Source: patient Mode of arrival: ambulatory Limitations: no limitations History of Present Illness HPI narrative: 70-year-old female came in for evaluation of generalized weakness and flu-like symptoms. Upper respiratory symptoms, sore throat, subjective fever, green sputum with coughing, sick contact somebody with COVID. Recently traveled from [place]. Decreased p.o. intake. Related Data Home Medications Medication Instructions Recorded Confirmed bupropion HCl 200 mg tablet,12 hr PO 01/11/20 06/07/21 sustained-release (Wellbutrin SR) gabapentin 300 mg capsule 300 mg PO BID 01/11/20 06/07/21 albuterol sulfate 90 mcg/actuation 0 mcg inhalation 12/05/20 06/07/21 aerosol inhaler fluticasone propionate 110 2 puff inhalation BID 12/05/20 06/07/21 mcg/actuation HFA aerosol inhaler (Flovent HFA) lamotrigine 200 mg tablet 200 mg PO DAILY 12/05/20 06/07/21 montelukast 10 mg tablet 10 mg PO DAILY 12/05/20 06/07/21 oxybutynin chloride 10 mg 10 mg PO DAILY 12/05/20 06/07/21 tablet,extended release 24 hr amlodipine 2.5 mg tablet 2.5 mg PO DAILY 06/07/21 06/07/21 celecoxib 200 mg capsule 200 mg PO DAILY 06/07/21 06/07/21 lamotrigine 25 mg tablet 50 mg PO DAILY 06/07/21 06/07/21 Previous Rx's Medication Instructions Recorded pantoprazole 40 mg tablet,delayed 40 mg PO DAILY #90 tabs 10/16/20 release Allergies Allergy/AdvReac Type Severity Reaction Status Date / Time No Known Allergies Allergy Verified 06/07/21 08:43 [No Known Allergies*] Review of Systems Review of Systems: All other systems are reviewed and are negative Constitutional: Reports as per HPI and Reports no additional constitutional complaints Eyes: Reports as per HPI and Reports no additional eye complaints Reports system reviewed and no additional complaints, except as documented Cardiovascular: Reports as per HPI and Reports no additional cardiovascular complaints Respiratory: Reports as per HPI and Reports no additional respiratory complaints Gastrointestinal: Reports as per HPI and Reports no additional gastrointestinal complaints Genitourinary: Reports no additional female genitourinary complaints Musculoskeletal: Reports no additional musculoskeletal complaints Skin/Breast: Reports system reviewed and no additional complaints, except as docu Psychiatric: Reports no additional psychiatric complaints Endocrine: Reports no additional endocrine complaints Hematologic/Lymphatic: Reports no additional hematologic/lymphatic complaints Allergic/Immunologic: Reports no additional allergic/immunologic complaints Reports system reviewed and no additional complaints, except as documented and Reports Abnormal speech present [facility] Past Medical History Medical History Asthma Hypertension UTI (urinary tract infection) Surgical History History of total left hip arthroplasty History of total right hip arthroplasty S/P laparoscopic sleeve gastrectomy Social History Social History Alcohol intake: never Patient Tobacco Use Status: Former Tobacco user Use of substances other than those prescribed or required for medical reasons: No Advance Directives: No Advance Directives Information Provided: Yes 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al status: retired 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: Right Handed Physical Exam ED Vital Signs: Vital Signs - 24 hr 08/24/21 07:36 08/24/21 09:11 08/24/21 09:12 Temperature 100.0 F 98.7 F Pulse Rate 152 H 127 H Respiratory Rate 20 28 H Blood Pressure 116/62 114/59 L Pulse Oximetry 92 93 97 Oxygen Delivery Method Room Air Room Air Nasal Cannula Oxygen Flow Rate 2 08/24/21 09:22 08/24/21 10:24 08/24/21 10:28 Temperature Pulse Rate 120 H 96 Respiratory Rate 26 H 27 H Blood Pressure 126/54 L 106/49 L Pulse Oximetry 93 96 95 Oxygen Delivery Method Room Air Room Air Oxygen Flow Rate 08/24/21 11:34 Temperature Pulse Rate 116 H Respiratory Rate 24 H Blood Pressure 153/81 H Pulse Oximetry 95 Oxygen Delivery Method Nasal Cannula Oxygen Flow Rate 2 BMI result Body Mass Index 26.4 Vital signs have been reviewed as appeared to be correct. Blood pressure normal. Heart rate normal. Respiration rate normal. Temperature normal. Oxygen saturation normal. Appearance: Alert. Oriented X3. No acute distress. Head: Normal external exam. Normocephalic. Atraumatic. No [place] signs noted. No raccoon eyes noted Eyes: PERRLA. EOMI. Conjunctiva and sclera normal. Eyelids normal. ENT: TM's Normal. Pharynx normal. Uvula midline. Moist mucous membranes. No trismus noted. No drooling noted. No muffled voice noted. Neck: Normal inspection. Neck supple. FROM. No adenopathy. Thyroid Normal. No meningeal signs. No neck mass noted. CVS: Normal heart rate and rhythm. Heart sound normal. No murmurs noted. Pulses normal throughout. Respiratory: No respiratory distress. Painless inspiration. Breath sounds normal. No wheezes/rales/rhonchi noted. Chest nontender. No accessory muscle usage noted or decreased air movement noted. Abdomen: Soft and nontender. Bowel sounds normal in all 4 quadrants. No distention noted. No organomegaly noted. No visible injury noted. Back: No CVA tenderness. Full range of motion noted. Skin: Skin warm and dry. Normal skin color. Normal skin turgor. No rashes/lesions/lacerations noted. Extremities: No lower extremity edema. Extremities exhibit normal range of motion. Extremities nontender. Neuro: Oriented X 3. Cranial nerve exam: II-XII are grossly intact No motor deficit. No sensory deficit. Reflexes normal. Course Reevaluation(s) Reevaluation #1: Patient now meet criteria for SIRS with pneumonia that was only confirmed on the CT, no severe sepsis or septic shock. Patient received 2 L of IV normal saline, Levaquin. COVID infection which causing mild dehydration and generalized weakness. New onset of rapid atrial fibrillation, improved with Cardizem IV/p.o.. Elevated troponin likely secondary to atrial fibrillation with RVR will monitor troponin in 3 hours. Time: 11:22 Medical Decision Making Lab Data Lab results reviewed: Yes I reviewed the patient's lab results. Result diagrams: 08/24/21 09:24 08/24/21 09:24 Labs: Lab Results 08/24/21 08/24/21 08/24/21 Range/Units 07:43 09:24 09:24 WBC 13.7 H (4.8-10.8) X10*3/uL RBC 4.30 (4.20-5.50) X10*6/uL Hgb 11.1 L (12.0-16.0) g/dl Hct 35.0 L (37.0-47.0) % MCV 81.4 (80.0-98.0) fL MCH 25.8 L (27.0-33.0) pg MCHC 31.7 (31.0-35.0) g/dl RDW 15.2 (11.0-16.0) % Plt Count 270 (160-400) X10*3/uL MPV 9.7 (9.4-12.3) fL Immature Gran % (Auto) 3.0 H (0.0-0.4) % Neut % (Auto) 84.6 H (45-73) % Lymph % (Auto) 5.1 L (20-40) % [place] % (Auto) 6.8 (2-11) % Eos % (Auto) 0.1 (0-4) % Baso % (Auto) 0.4 (0-2) % Lymph # (Auto) 0.7 L (1.2-4.9) X10*3/uL [place] # (Auto) 0.9 (0.1-1.2) X10*3/uL Eos # (Auto) 0.0 (0.0-0.4) X10*3/uL Baso # (Auto) 0.1 (0.0-0.2) X10*3/uL Abs Immat Gran (auto) 0.41 H (0.00-0.03) X10*3/uL Absolute Neuts (auto) 11.6 H (2.0-8.3) x10*3/uL Absolute Nucleated RBC 0.000 (0.0-0.012) X10*3/uL Nucleated RBC % (auto) 0.0 (0.0-0.2) /100WBC D-Dimer High Sensitivty NG/ML Sodium 133 L (135-145) mmol/L Potassium 3.7 (3.3-5.1) mmol/L Chloride 100 (96-108) mmol/L Carbon Dioxide 25 (22-29) mmol/L Anion Gap 12 (12-20) BUN 28 H (9-16) mg/dL Creatinine 0.95 (0.5-1.4) mg/dL Estim Creat Clear Calc 47.0 Estimated GFR 58 Random Glucose 117 H (60-115) mg/dL Lactic Acid (0.5-2.0) mmol/L Calcium 8.8 D (8.4-10.2) mg/dL Magnesium 2.0 (1.6-2.6) mg/dL Ferritin (10-250) ng/mL Total Bilirubin 1.0 (0.0-1.0) mg/dL Direct Bilirubin 0.6 H (0.0-0.5) mg/dL AST 15 D (5-31) U/L ALT 13 (0-31) U/L Alkaline Phosphatase 96 (39-117) U/L Troponin I High Sens (<3.5-17.0) ng/L C-Reactive Protein 23.68 H (< or = 0.50) mg/dL B-Natriuretic Peptide (<100) pg/mL Total Protein 5.4 L (6.5-8.0) g/dL Albumin 3.0 L D (3.5-5.0) g/dL Procalcitonin ng/mL COVID-19 ([facility]VARO) Positive A (Negative) COVID-19 Clin Com See Note 08/24/21 08/24/21 08/24/21 Range/Units 09:24 09:24 09:24 WBC (4.8-10.8) X10*3/uL RBC (4.20-5.50) X10*6/uL Hgb (12.0-16.0) g/dl Hct (37.0-47.0) % MCV (80.0-98.0) fL MCH (27.0-33.0) pg MCHC (31.0-35.0) g/dl RDW (11.0-16.0) % Plt Count (160-400) X10*3/uL MPV (9.4-12.3) fL Immature Gran % (Auto) (0.0-0.4) % Neut % (Auto) (45-73) % Lymph % (Auto) (20-40) % [place] % (Auto) (2-11) % Eos % (Auto) (0-4) % Baso % (Auto) (0-2) % Lymph # (Auto) (1.2-4.9) X10*3/uL [place] # (Auto) (0.1-1.2) X10*3/uL Eos # (Auto) (0.0-0.4) X10*3/uL Baso # (Auto) (0.0-0.2) X10*3/uL Abs Immat Gran (auto) (0.00-0.03) X10*3/uL Absolute Neuts (auto) (2.0-8.3) x10*3/uL Absolute Nucleated RBC (0.0-0.012) X10*3/uL Nucleated RBC % (auto) (0.0-0.2) /100WBC D-Dimer High Sensitivty 1179 NG/ML Sodium (135-145) mmol/L Potassium (3.3-5.1) mmol/L Chloride (96-108) mmol/L Carbon Dioxide (22-29) mmol/L Anion Gap (12-20) BUN (9-16) mg/dL Creatinine (0.5-1.4) mg/dL Estim Creat Clear Calc Estimated GFR Random Glucose (60-115) mg/dL Lactic Acid 1.6 (0.5-2.0) mmol/L Calcium (8.4-10.2) mg/dL Magnesium (1.6-2.6) mg/dL Ferritin (10-250) ng/mL Total Bilirubin (0.0-1.0) mg/dL Direct Bilirubin (0.0-0.5) mg/dL AST (5-31) U/L ALT (0-31) U/L Alkaline Phosphatase (39-117) U/L Troponin I High Sens 100.1 H* (<3.5-17.0) ng/L C-Reactive Protein (< or = 0.50) mg/dL B-Natriuretic Peptide (<100) pg/mL Total Protein (6.5-8.0) g/dL Albumin (3.5-5.0) g/dL Procalcitonin ng/mL COVID-19 ([facility]O) (Negative) COVID-19 Clin Com 08/24/21 08/24/21 08/24/21 Range/Units 09:24 09:24 09:24 WBC (4.8-10.8) X10*3/uL RBC (4.20-5.50) X10*6/uL Hgb (12.0-16.0) g/dl Hct (37.0-47.0) % MCV (80.0-98.0) fL MCH (27.0-33.0) pg MCHC (31.0-35.0) g/dl RDW (11.0-16.0) % Plt Count (160-400) X10*3/uL MPV (9.4-12.3) fL Immature Gran % (Auto) (0.0-0.4) % Neut % (Auto) (45-73) % Lymph % (Auto) (20-40) % [place] % (Auto) (2-11) % Eos % (Auto) (0-4) % Baso % (Auto) (0-2) % Lymph # (Auto) (1.2-4.9) X10*3/uL [place] # (Auto) (0.1-1.2) X10*3/uL Eos # (Auto) (0.0-0.4) X10*3/uL Baso # (Auto) (0.0-0.2) X10*3/uL Abs Immat Gran (auto) (0.00-0.03) X10*3/uL Absolute Neuts (auto) (2.0-8.3) x10*3/uL Absolute Nucleated RBC (0.0-0.012) X10*3/uL Nucleated RBC % (auto) (0.0-0.2) /100WBC D-Dimer High Sensitivty NG/ML Sodium (135-145) mmol/L Potassium (3.3-5.1) mmol/L Chloride (96-108) mmol/L Carbon Dioxide (22-29) mmol/L Anion Gap (12-20) BUN (9-16) mg/dL Creatinine (0.5-1.4) mg/dL Estim Creat Clear Calc Estimated GFR Random Glucose (60-115) mg/dL Lactic Acid (0.5-2.0) mmol/L Calcium (8.4-10.2) mg/dL Magnesium (1.6-2.6) mg/dL Ferritin 308 H (10-250) ng/mL Total Bilirubin (0.0-1.0) mg/dL Direct Bilirubin (0.0-0.5) mg/dL AST (5-31) U/L ALT (0-31) U/L Alkaline Phosphatase (39-117) U/L Troponin I High Sens (<3.5-17.0) ng/L C-Reactive Protein (< or = 0.50) mg/dL B-Natriuretic Peptide 392 H (<100) pg/mL Total Protein (6.5-8.0) g/dL Albumin (3.5-5.0) g/dL Procalcitonin 3.13 ng/mL COVID-19 ([facility]) (Negative) COVID-19 Clin Com Imaging Data CT angio g of the chest: Attestation: I personally reviewed and interpreted this imaging study as follows: Radiologist's impression: No evidence of pulmonary embolism. Upper normal-size heart and mild coronary artery calcification. Right basilar atelectasis/pneumonia, left greater than right. Follow-up chest x-ray following treatment to ensure resolution recommended. Small left pleural effusion. ECG Data Attestation: I personally reviewed and interpreted this ECG as follows: Interpretation: EKG 1. Atrial fibrillation with RVR at 132 beats per minutes, left axis deviation, LVH. EKG 2. Atrial fibrillation with RVR at 106 beats per minutes, left axis deviation, LVH. Critical Care Time Critical Care Time Critical Care Time: Yes Total Critical Care Time: 60 Attestation: I spent 60 minutes providing critical care service to the patient, this including time spent at the bedside to evaluate the patient, reassess the patient, monitoring vital signs, review labs, and radiographic studies, counseling the patient/family, discussing the case with consultants, disposition the patient. Discharge Plan Discharge Clinical Impression: COVID-19 virus infection, Pneumonia, Atrial fibrillation, new onset Patient Disposition: Admitted As Inpatient
[2021-08-24] MEDS: 0.9 % Sodium Chloride 1,000 ML 999 ML IV (09:22)
[2021-08-24 09:32] LABS: MANUAL DIFF FLAG NO
--- NOTE | 2021-08-24 09:32 | PC.NURSE ---
Pt alert/riented. appears fatigues. C/O fatigue, SOB, cough and headache with inability to eat/drink x 2-3 days d/t no appetite. Rapid A fib on tele rate 120-50s, IV established and labs obtained/sent. RA sat 93%, placed on 2lpm via nc with increase to 97%. Breathing easy without visible SOB.
[2021-08-24 09:33] LABS: Basophils Absolute Auto 0.1 X10*3/uL (0.0-0.2); Basophils Percent Auto 0.4 % (0-2); Eosinophils Percent Auto 0.1 % (0-4); Hemoglobin 11.1 g/dl (12.0-16.0); Imm Gran Abs Auto 0.41 X10*3/uL (0.00-0.03); Lymphocytes Absolute Auto 0.7 X10*3/uL (1.2-4.9); Lymphocytes Percent Auto 5.1 % (20-40); Mean Corpuscular HGB Conc 31.7 g/dl (31.0-35.0); Mean Corpuscular Hemoglobin 25.8 pg (27.0-33.0); Mean Corpuscular Volume 81.4 fL (80.0-98.0); Mean Platelet Volume 9.7 fL (9.4-12.3); Monocytes Absolute Auto 0.9 X10*3/uL (0.1-1.2); Monocytes Percent Auto 6.8 % (2-11); Neutrophils Absolute Auto 11.6 x10*3/uL (2.0-8.3); Neutrophils Percent Auto 84.6 % (45-73); Platelet Count 270 X10*3/uL (160-400); Red Cell Distribution Width 15.2 % (11.0-16.0); White Blood Count 13.7 X10*3/uL (4.8-10.8)
[2021-08-24 09:45] LABS: Lactic Acid 1.6 mmol/L (0.5-2.0)
[2021-08-24 09:46] LABS: D Dimer High Sensitivity 1179 NG/ML
[2021-08-24 09:51] LABS: Alanine Aminotransferase 13 U/L (0-31); Alkaline Phosphatase 96 U/L (39-117); Anion Gap 12 (12-20); Aspartate Amino Transferase 15 U/L (5-31); Bilirubin Direct 0.6 mg/dL (0.0-0.5); Blood Urea Nitrogen 28 mg/dL (9-16); C Reactive Protein 23.68 mg/dL (< or = 0.50); Calcium 8.8 mg/dL (8.4-10.2); Carbon Dioxide 25 mmol/L (22-29); Chloride 100 mmol/L (96-108); Estimated Glomerular Filt Rate 58; Glucose Random 117 mg/dL (60-115); Potassium 3.7 mmol/L (3.3-5.1); Sodium 133 mmol/L (135-145); Total Protein 5.4 g/dL (6.5-8.0)
[2021-08-24 09:55] LABS: B Type Natriuretic Peptide 392 pg/mL (<100)
[2021-08-24 10:02] LABS: Troponin-I High Sensitivity 100.1 ng/L (<3.5-17.0)
[2021-08-24 10:11] LABS: Ferritin 308 ng/mL (10-250)
[2021-08-24] MEDS: iohexoL 350 MG/ML 100 ML INFUS..BTL IV (10:20)
[2021-08-24] MEDS: dilTIAZem HCL 50 MG/10 ML VIAL 20 MG IVPUSH (10:23)
--- NOTE | 2021-08-24 10:42 | ECG_ITS ---
Test Reason : REPEAT, RAPID A FIB Blood Pressure : / mmHG Vent. Rate : 106 BPM Atrial Rate : 000 BPM P-R Int : 000 ms QRS Dur : 114 ms QT Int : 290 ms P-R-T Axes : 000 -40 133 degrees QTc Int : 385 ms Atrial fibrillation with rapid ventricular response Left axis deviation Minimal voltage criteria for LVH, may be normal variant ( Homar product ) Septal infarct , age undetermined ST & T wave abnormality, consider lateral ischemia Abnormal ECG When compared with ECG of 24-AUG-2021 09:10, No significant change was found Referred By: Aiden Mendiola Electronically Signed By:MISTY HAMILTON MD
[2021-08-24 10:48] LABS: Procalcitonin 3.13 ng/mL
[2021-08-24] MEDS: dilTIAZem HCL 30 MG TABLET PO (11:08)
[2021-08-24] MEDS: levoFLOXacin/D5W 750 MG/150 ML PIGGYBACK 100 MG IV (11:31)
[2021-08-24 13:07] LABS: Troponin-I High Sensitivity 107.9 ng/L (<3.5-17.0)
--- NOTE | 2021-08-24 14:02 | PM.IMHP ---
History of Present Illness Date of Service: 08/24/21 Attending physician on admission: Daniel Castrejon Chief Complaint: cough This is a 70-year-old female who recently returned from [place] who presents to the emergency department with cough and body aches. She returned from [place] on Thursday and immediately began subjective fever, diffuse body aches, cough and weakness. Her son-in-law was on a trip with her began coughing and having sore throat on the trip. Her cough is primarily dry with some intermittent dark phlegm. She states that she was treated with a course of prednisone for cough she had prior to going on a trip but her cough had completely resolved until this past Thursday. In the emergency department she was noted to be tachycardic, EKG was obtained and showed atrial fibrillation with rapid ventricular response. Patient denies any known history of atrial fibrillation. She received 2 doses of IV Cardizem but continued to be tachycardic. Lab work revealed leukocytosis of 13.7. CRP was elevated at 23.6, BNP 392, troponin 100.1, 107.9 and procalcitonin of 3.13. She tested positive for COVID-19. CTA was obtained and showed no evidence of pulmonary embolism but did show right basilar pneumonia. She was treated with IV levofloxacin. Review of Systems Review of Systems: Yes all other systems are reviewed and are negative Constitutional: Constitutional: Reports chills and Reports fever(s) ENT: Denies dizziness Cardiovascular: Cardiovascular: Denies chest pain and Denies palpitations Respiratory: Respiratory: Reports cough and Denies pain with cough Gastrointestinal: Gastrointestinal: Denies abdominal pain, Denies diarrhea, Denies nausea and Denies vomiting Neurologic: Denies dizziness Endocrine: Endocrine: Denies palpitations [facility] Medical History Asthma Hypertension UTI (urinary tract infection) Pertinent family history: Mom - dm, htn Surgical History History of total left hip arthroplasty History of total right hip arthroplasty S/P laparoscopic sleeve gastrectomy Social History Alcohol intake: never Patient Tobacco Use Status: Former Tobacco user Use of substances other than those prescribed or required for medical reasons: No Advance Directives: No Advance Directives Information Provided: Yes 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al status: retired 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 Allergies Allergy/AdvReac Type Severity Reaction Status Date / Time No Known Allergies Allergy Verified 06/07/21 08:43 [No Known Allergies*] Active Medications: Current Medications Acetaminophen (Acetaminophen 325 Mg Tablet) 650 mg PO Q6H PRN PRN Reason: Pain, Mild (Pain Scale 1-3) Benzonatate (Benzonatate 100 Mg Capsule) 100 mg PO TID PRN PRN Reason: Cough Dexamethasone Sodium Phosphate (Dexamethasone Sod Phosphate 4 Mg/Ml Vial) 6 mg IVPUSH DAILY JAKY Docusate Sodium (Docusate Sodium 100 Mg Capsule) 100 mg PO DAILY PRN PRN Reason: Constipation Enoxaparin Sodium (Enoxaparin Sodium 40 Mg/0.4 Ml Syringe) 40 mg SUBCUT Q24H JAKY Diltiazem HCl 125 mg/ Sodium (Chloride) 125 mls @ 0 mls/hr IVCONT .Q0M [facility]; Protocol Remdesivir 200 mg/ Sodium (Chloride) 210 mls @ 105 mls/hr IV ONCE ONE Stop: 08/24/21 16:59 Remdesivir 100 mg/ Sodium (Chloride) 230 mls @ 115 mls/hr IV Q24H JAKY Stop: 08/28/21 16:59 Ceftriaxone Sodium 1 gm/ (Sodium Chloride) 50 mls @ 100 mls/hr IV Q24H JAKY Azithromycin 500 mg/ Sodium (Chloride) 250 mls @ 125 mls/hr IV Q24H [facility] Ondansetron HCl (Ondansetron Hcl 4 Mg/2 Ml Vial) 4 mg IVPUSH Q8H PRN PRN Reason: Nausea and Vomiting Sodium Chloride (0.9 % Sodium Chloride Flush 3 Ml Syringe) 3 ml IVFLUSH QSHIFT [facility] Home Medications Medication Instructions Recorded Confirmed Last Taken Type bupropion HCl 200 mg tablet,12 hr 200 mg PO BID 01/11/20 08/24/21 08/23/21 History sustained-release (Wellbutrin SR) albuterol sulfate 90 mcg/actuation 2 puff inhalation Q4-6H PRN 12/05/20 08/24/21 Unknown History aerosol inhaler Shortness Of Breath fluticasone propionate 110 2 puff inhalation BID 12/05/20 08/24/21 08/23/21 History mcg/actuation HFA aerosol inhaler (Flovent HFA) lamotrigine 200 mg tablet 200 mg PO DAILY 12/05/20 08/24/21 08/23/21 History montelukast 10 mg tablet 10 mg PO DAILY 12/05/20 08/24/21 08/23/21 History oxybutynin chloride 10 mg 10 mg PO DAILY 12/05/20 08/24/21 08/23/21 History tablet,extended release 24 hr amlodipine 2.5 mg tablet 2.5 mg PO DAILY 06/07/21 08/24/21 08/23/21 History celecoxib 200 mg capsule 200 mg PO DAILY 06/07/21 08/24/21 08/23/21 History lamotrigine 25 mg tablet 50 mg PO BEDTIME 06/07/21 08/24/21 08/23/21 History pantoprazole 40 mg tablet,delayed 40 mg PO DAILY@0630 08/24/21 08/24/21 08/23/21 History release Physical Exam Vital Signs and Narrative: Vital Signs: Last Vital Signs Temp 98.7 F 08/24/21 09:11 Pulse 118 H 08/24/21 13:32 Resp 20 08/24/21 13:32 BP 112/49 L 08/24/21 13:32 Pulse Ox 96 08/24/21 13:32 O2 Del Method 08/24/21 13:32 O2 Flow Rate 2 08/24/21 13:32 BMI result Body Mass Index 26.4 Const: General: alert, awake and ill appearing Nutritional Appearance: average body habitus Orientation/consciousness: patient oriented x3 Resp: Other: frequent coughing; course breath sounds throughout Effort & Inspection: able to speak in complete sentences Cardio: Rate: tachycardic Rhythm: abnormal rhythm irregularly irregular GI: Inspection: No distended Palpation (GI): Soft to palpation and nontender Neuro: General: patient oriented x3 and CN's II-XI intact bilaterally Extrem: General: Yes no pedal edema Results Labs CBC and Chem 7: 08/24/21 09:24 08/24/21 09:24 Labs: Laboratory Results - last 24 hr 08/24/21 08/24/21 08/24/21 07:43 09:24 09:24 MCV 81.4 MCH 25.8 L MCHC 31.7 RDW 15.2 Plt Count 270 MPV 9.7 Immature Gran % (Auto) 3.0 H Neut % (Auto) 84.6 H Lymph % (Auto) 5.1 L [place] % (Auto) 6.8 Eos % (Auto) 0.1 Baso % (Auto) 0.4 Lymph # (Auto) 0.7 L [place] # (Auto) 0.9 Eos # (Auto) 0.0 Baso # (Auto) 0.1 Abs Immat Gran (auto) 0.41 H Absolute Neuts (auto) 11.6 H Absolute Nucleated RBC 0.000 Nucleated RBC % (auto) 0.0 D-Dimer High Sensitivty Anion Gap 12 Estim Creat Clear Calc 47.0 Estimated GFR 58 Random Glucose 117 H Lactic Acid Calcium 8.8 D Magnesium 2.0 Ferritin Total Bilirubin 1.0 Direct Bilirubin 0.6 H AST 15 D ALT 13 Alkaline Phosphatase 96 Troponin I High Sens C-Reactive Protein 23.68 H B-Natriuretic Peptide Total Protein 5.4 L Albumin 3.0 L D Procalcitonin COVID-19 ([facility]) Positive A COVID-19 Clin Com See Note 08/24/21 08/24/21 08/24/21 09:24 09:24 09:24 MCV MCH MCHC RDW Plt Count MPV Immature Gran % (Auto) Neut % (Auto) Lymph % (Auto) [place] % (Auto) Eos % (Auto) Baso % (Auto) Lymph # (Auto) [place] # (Auto) Eos # (Auto) Baso # (Auto) Abs Immat Gran (auto) Absolute Neuts (auto) Absolute Nucleated RBC Nucleated RBC % (auto) D-Dimer High Sensitivty 1179 Anion Gap Estim Creat Clear Calc Estimated GFR Random Glucose Lactic Acid 1.6 Calcium Magnesium Ferritin Total Bilirubin Direct Bilirubin AST ALT Alkaline Phosphatase Troponin I High Sens 100.1 H* C-Reactive Protein B-Natriuretic Peptide Total Protein Albumin Procalcitonin COVID-19 ([facility]) COVID-19 Clin [employer] 08/24/21 08/24/21 08/24/21 09:24 09:24 09:24 MCV MCH MCHC RDW Plt Count MPV Immature Gran % (Auto) Neut % (Auto) Lymph % (Auto) [place] % (Auto) Eos % (Auto) Baso % (Auto) Lymph # (Auto) [place] # (Auto) Eos # (Auto) Baso # (Auto) Abs Immat Gran (auto) Absolute Neuts (auto) Absolute Nucleated RBC Nucleated RBC % (auto) D-Dimer High Sensitivty Anion Gap Estim Creat Clear Calc Estimated GFR Random Glucose Lactic Acid Calcium Magnesium Ferritin 308 H Total Bilirubin Direct Bilirubin AST ALT Alkaline Phosphatase Troponin I High Sens C-Reactive Protein B-Natriuretic Peptide 392 H Total Protein Albumin Procalcitonin 3.13 COVID-19 ([facility]) COVID-19 Clin Com 08/24/21 12:27 MCV MCH MCHC RDW Plt Count MPV Immature Gran % (Auto) Neut % (Auto) Lymph % (Auto) [place] % (Auto) Eos % (Auto) Baso % (Auto) Lymph # (Auto) [place] # (Auto) Eos # (Auto) Baso # (Auto) Abs Immat Gran (auto) Absolute Neuts (auto) Absolute Nucleated RBC Nucleated RBC % (auto) D-Dimer High Sensitivty Anion Gap Estim Creat Clear Calc Estimated GFR Random Glucose Lactic Acid Calcium Magnesium Ferritin Total Bilirubin Direct Bilirubin AST ALT Alkaline Phosphatase Troponin I High Sens 107.9 H* C-Reactive Protein B-Natriuretic Peptide Total Protein Albumin Procalcitonin COVID-19 ([facility]) COVID-19 Clin Com Imaging Radiologist's Impressions: Impressions Chest X-Ray 08/24/21 08:13 IMPRESSION: Bibasilar infiltrates, left greater than right and small left pleural effusion. Chest CTA 08/24/21 10:31 IMPRESSION: No evidence of pulmonary embolism. Upper normal-size heart and mild coronary artery calcification. Right basilar atelectasis/pneumonia, left greater than right. Follow-up chest x-ray following treatment to ensure resolution recommended. Small left pleural effusion. VTE: negative Assessment and Plan (1) COVID-19 virus infection: Status: Acute (2) Pneumonia: Status: Acute (3) Atrial fibrillation, new onset: Status: Acute Plan This is a 70-year-old female with history of hypertension, asthma, recent trip to [place] who presents to the emergency department with cough, muscle aches found to have COVID-19, pneumonia, rapid atrial fibrillation Acute respiratory failure with hypoxia Related to underlying COVID-19, pneumonia Continue supplemental oxygen as needed COVID-19 pneumonia Will start remdesivir, Decadron Follow-up LFTs Trend inflammatory markers Probable superimposed bacterial pneumonia imaging not typical of covid 19 procalcitonin 3.13 will cover with ceftriaxone, azithromycin follow blood cultures Atrial fibrillation with rapid ventricular response Received 2 doses of IV Cardizem in the ED, persistently tachycardic Will start Cardizem drip Echocardiogram Check TSH, magnesium within normal limits Cardiology consult pending Elevated cardiac enzymes Troponin elevated around 100 but flat Likely secondary to demand Cardiology consult pending SIRS meets sirs criteria with tachycardia and leukocytosis. lactic negative Tachycardia secondary to rapid AFib. No sepsis HTN Continue Norvasc Asthma Continue Flovent, albuterol Mood continue lamotrigine, Wellbutrin DVT ppx - lovenox code status - full code HCP - Krishna Attending - dr. castrejon Due to pneumonia, hypoxia, rapid atrial fibrillation patient will likely need 2 midnight stay in the hospital for management of above and close monitoring for progressive respiratory failure. Quality Stroke Does the patient have a stroke diagnosis?: No VTE Prior VTE?: No VTE Risk Level:: Medical - moderate - high VTE Device Contraindication: N/A - Device Ordered VTE Drug Contraindication: N/A - Med Ordered
--- NOTE | 2021-08-24 14:10 | PHA.MEDREC ---
Pharmacy Consult ? Medication Reconciliation Pharmacy has completed the medication reconciliation. Spoke with patient in the ED. Patient states she is on gabapentin 600 mg bid but has not filled since 10/30 ( also checked PDMP)
[2021-08-24] MEDS: guaiFEN/Codeine SF 200/20/10ML 10 ML LIQUID 5 ML PO (14:19)
[2021-08-24] MEDS: Enoxaparin Sodium 40 MG/0.4 ML SYRINGE SUBCUT (14:54)
[2021-08-24] MEDS: dexAMETHasone sod phosphate 4 MG/ML VIAL 6 MG IVPUSH (14:54)
[2021-08-24] MEDS: dilTIAZem HCL 125 MG in 0.9 % Sodium Chloride 100 ML IVCONT (14:59)
--- NOTE | 2021-08-24 15:05 | PC.NURSE ---
Pt up to bedside commode and desat down to 87% on 2 lpm, increased to 4lpm via nc with sat now 96%. Pt started on Cardizem 5mg/hr per Martha Gil, rate 110-120s. Second IV established to right forearm. Awaiting Remdesivir from pharmacy.
[2021-08-24] MEDS: 0.9 % Sodium Chloride Flush 3 ML SYRINGE IVFLUSH (15:09)
[2021-08-24] MEDS: Remdesivir 200 MG in 0.9 % Sodium Chloride 210 ML 105 MG IV (16:23)
[2021-08-24] MEDS: Acetaminophen 325 MG TABLET 650 MG PO (16:23)
--- NOTE | 2021-08-24 17:38 | PC.NURSE ---
Pt resting comfortably, frequent non productive hoarse cough. Pt remains on Cardizem gtt at 5mg/hr, HR has trended down to 90s but increases with any activity. Last BP 107/53. Tylenol given for discomfort and low grade 99.7, skin hot to touch.
--- NOTE | 2021-08-24 18:44 | PC.NURSE ---
Last BP 98/54, HR 80s. Gorge held, Martha Gil notified. Pt asleep
[2021-08-24] MEDS: lamoTRIgine 25 MG TABLET 50 MG PO (22:58)
[2021-08-24] MEDS: Benzonatate 100 MG CAPSULE PO (23:07)
[2021-08-25] VITALS (10 sets, daily range): BP systolic 104–123; BP diastolic 39–69; PULSE 95–135; RESP 18–25; TEMP 36.8; O2SAT 93–97
--- NOTE | 2021-08-25 00:32 | PC.NURSE ---
pt placed back on cardiac cath technician and oxygen, assisted to bathroom. resting comfortably in bed at this time.
[2021-08-25] MEDS: 0.9 % Sodium Chloride Flush 3 ML SYRINGE IVFLUSH ×3 (01:34→16:02)
[2021-08-25] MEDS: vancomycin HCL 1,250 MG in 0.9 % Sodium Chloride 250 ML 166.67 MG IV (02:01)
[2021-08-25 04:49] LABS: Hematocrit 33.2 % (37.0-47.0); Hemoglobin 10.6 g/dl (12.0-16.0); Mean Corpuscular HGB Conc 31.9 g/dl (31.0-35.0); Mean Corpuscular Hemoglobin 26.1 pg (27.0-33.0); Mean Corpuscular Volume 81.8 fL (80.0-98.0); Mean Platelet Volume 9.8 fL (9.4-12.3); Platelet Count 261 X10*3/uL (160-400); Red Blood Count 4.06 X10*6/uL (4.20-5.50); Red Cell Distribution Width 15.2 % (11.0-16.0); White Blood Count 11.5 X10*3/uL (4.8-10.8)
[2021-08-25 05:10] LABS: Alanine Aminotransferase 10 U/L (0-31); Albumin Level 2.6 g/dL (3.5-5.0); Alkaline Phosphatase 80 U/L (39-117); Anion Gap 11 (12-20); Aspartate Amino Transferase 12 U/L (5-31); Bilirubin Direct 0.3 mg/dL (0.0-0.5); Bilirubin Total 0.3 mg/dL (0.0-1.0); Blood Urea Nitrogen 18 mg/dL (9-16); Calcium 8.4 mg/dL (8.4-10.2); Carbon Dioxide 24 mmol/L (22-29); Chloride 108 mmol/L (96-108); Creatinine Clr Calc Pharmacy 65.7; Estimated Glomerular Filt Rate > 60; Glucose Random 127 mg/dL (60-115); Potassium 3.6 mmol/L (3.3-5.1); Sodium 139 mmol/L (135-145); Total Protein 4.7 g/dL (6.5-8.0)
[2021-08-25 05:30] LABS: Thyroid Stimulating Hormone 0.38 uIU/mL (0.32-4.0)
[2021-08-25] MEDS: Omeprazole 20 MG CAPSULE.DR PO (06:11)
[2021-08-25] MEDS: Benzonatate 100 MG CAPSULE PO ×2 (06:11→20:37)
--- NOTE | 2021-08-25 07:38 | PHA.PROG ---
Addendum entered by Keke Zhang [facility] 08/25/21 07:43: CHANGED dose on 08/26 for 6 am x 1 then 08/27 @[address] [facility] in am will be able to review Original Note: Admission Date/Time: August 24, 2021 13:49 Indication: BACTEREMIA Weight in k.503 kg Adjusted body weight in [place] body weight in K.8 Obesity Dosing Indication % IBW: Serum Creatinine - Last 168 Hours 08/24/21 08/25/21 09:24 04:36 Creatinine 0.95 0.68 Estimated CrCl and GFR - Last 168 Hours 08/24/21 08/25/21 09:24 04:36 Estim Creat Clear Calc 47.0 65.7 Estimated GFR 58 > 60 Vancomycin Loading Dose: 1250 MG Current Vancomycin Dosing Regimen: 1250 MG Q24 Vancomycin Monitoring using AUC goal of 400 - 600 range with trough as surrogate marker: 521, 15.3 Date and Time for next Vancomycin Level to be drawn:08/27 @0400 Pharmacist Comments on Vancomycin Plan: patient has bacteremia, went with higher dosing but changed dosing time closer to when pharmacy is present. Random before 3rd dose Vancomycin dosing will take advantage of [employer] as a clinical decision support tool that uses Bayesian modeling to calculate individual patient's pharmacokinetic parameters and forecast the patient's drug concentration time course with the target goal AUC 24 range of 400 - 600 mg/L/hr.
[2021-08-25] MEDS: cefTRIAXone sodium 1 GM in 0.9 % Sodium Chloride 50 ML IV (09:19)
[2021-08-25] MEDS: Montelukast Sodium 10 MG TABLET PO (09:22)
[2021-08-25] MEDS: buPROPion HCl XL 300 MG TAB.ER.24H PO (09:22)
[2021-08-25] MEDS: buPROPion HCl XL 150 MG TAB.ER.24H PO (09:22)
[2021-08-25] MEDS: lamoTRIgine 100 MG TABLET 200 MG PO (09:23)
[2021-08-25] MEDS: amLODIPine Besylate 2.5 MG TABLET PO (09:23)
[2021-08-25] MEDS: dexAMETHasone sod phosphate 4 MG/ML VIAL 6 MG IVPUSH (09:24)
--- NOTE | 2021-08-25 09:40 | MHC.CM.PN ---
Patient is Covid (+); CM spoke with /HCP/BRANDON @ [phone]. Patient lives in a house with her and uses a cane to assist with mobility. Home/no services is the goal and CM has initiated and will follow for dc planning. PCP is DR. Eddie Messina and Patient has received [employer]/Covid vax X4.
[2021-08-25] MEDS: dilTIAZem HCL 125 MG in 0.9 % Sodium Chloride 100 ML 10 MG IVCONT (09:41)
--- NOTE | 2021-08-25 09:45 | PC.NURSE ---
pt alert and oriented, sitting on the edge of her bed, pt is having wet unproductive intermitted cough at this time, but pt does reports getting some green sputum up at times, ls slightly diminished on the bases, is reporting burning feeling in her throat all the way down to her esophagus, hr is currently fluctuating from high 130's-120's
[2021-08-25] MEDS: Azithromycin 500 MG in 0.9 % Sodium Chloride 250 ML 125 MG IV (10:09)
[2021-08-25] MEDS: Enoxaparin Sodium 40 MG/0.4 ML SYRINGE SUBCUT (13:20)
--- NOTE | 2021-08-25 13:49 | P.CONCA_ITS ---
History of Present Illness History of Present Illness Date of Service: 08/25/21 Requesting physician: Martha Gil Consult reason: atrial fibrillation Chief complaint: COVID 19/RAPID AFIB Narrative: I was consulted to see Shilpa in cardiology consultation today for atrial fibrillation with rapid ventricular response. She is a 70-year-old woman with prior history of asthma, takotsubo syndrome 5 years ago, being followed by Dr. Barboza, prior history of bariatric surgery. Present hospital with not feeling well with overall increasing shortness of breath and cough. She says that in the past she had prior to going to a long trip in [place] she was having some cough and bronchospasm. She was treated with bronchodilators but did not completely get better. She subsequently came back and continue to have cough and body aches with fever and came to the emergency room. She was noted to have COVID with right basilar pneumonia. She was also noted to have atrial fibrillation rapid ventricular response. She had minimally elevated troponins and minimally elevated BNP. She says she was brought in by the ambulance and does not remember the exact event around her coming to the hospital. However today she feels better. She has been started on Cardizem drip and rate is borderline controlled at this point in time. She denies any palpitations, lightheadedness, syncope. No neurologic symptoms. Denies any chest pain. Review of Systems Constitutional: Constitutional: Reports body ache(s), Reports chills and Reports fever(s) Eyes: Eyes: Reports no additional eye complaints Cardiovascular: Cardiovascular: Denies chest pain, Denies leg edema, Denies lightheadedness, Denies Loss of Consciousness, Denies palpitations and Reports dyspnea on exertion Respiratory: Respiratory: Reports cough, Reports dyspnea on exertion and Reports wheezing Gastrointestinal: Gastrointestinal: Reports no additional gastrointestinal complaints Genitourinary: Genitourinary: Reports no additional female genitourinary complaints Musculoskeletal: Musculoskeletal: Reports no additional musculoskeletal complaints Integumentary/Breasts: Skin/Breast: Reports system reviewed and no additional complaints, except as docu Neurologic: Reports system reviewed and no additional complaints, except as documented Psychiatric: Psychiatric: Reports no additional psychiatric complaints Endocrine: Endocrine: Reports no additional endocrine complaints and Denies palpitations Allergic/Immunologic: Allergic/Immunologic: Reports wheezing PMFSH Past Medical History Medical History Asthma Hypertension UTI (urinary tract infection) Surgical History Surgical History History of total left hip arthroplasty History of total right hip arthroplasty S/P laparoscopic sleeve gastrectomy Social History Social History Alcohol intake: never Patient Tobacco Use Status: Former Tobacco user Use of substances other than those prescribed or required for medical reasons: No Advance Directives: No Advance Directives Information Provided: Yes service: No 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al status: retired 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 Allergies Allergy/AdvReac Type Severity Reaction Status Date / Time No Known Allergies Allergy Verified 06/07/21 08:43 [No Known Allergies*] Active Medications: Current Medications Acetaminophen (Acetaminophen 325 Mg Tablet) 650 mg PO Q6H PRN PRN Reason: Pain, Mild (Pain Scale 1-3) Last Admin: 08/24/21 16:23 Dose: 650 mg Albuterol Sulfate (Albuterol Sulfate 90 Mcg 8 Gm Inhaler) 2 puff INHALE Q4H PRN PRN Reason: Shortness Of Breath Amlodipine Besylate (Amlodipine Besylate 2.5 Mg Tablet) 2.5 mg PO DAILY [facility]; Protocol Last Admin: 08/25/21 09:23 Dose: 2.5 mg Benzonatate (Benzonatate 100 Mg Capsule) 100 mg PO TID PRN PRN Reason: Cough Last Admin: 08/25/21 06:11 Dose: 100 mg Bupropion HCl (Bupropion Hcl Xl 300 Mg Tab.Er.24h) 300 mg PO DAILY [facility] Last Admin: 08/25/21 09:22 Dose: 300 mg Bupropion HCl (Bupropion Hcl Xl 150 Mg Tab.Er.24h) 150 mg PO DAILY [facility] Last Admin: 08/25/21 09:22 Dose: 150 mg Dexamethasone Sodium Phosphate (Dexamethasone Sod Phosphate 4 Mg/Ml Vial) 6 mg IVPUSH DAILY [facility] Last Admin: 08/25/21 09:24 Dose: 6 mg Docusate Sodium (Docusate Sodium 100 Mg Capsule) 100 mg PO DAILY PRN PRN Reason: Constipation Enoxaparin Sodium (Enoxaparin Sodium 40 Mg/0.4 Ml Syringe) 40 mg SUBCUT Q24H [facility] Last Admin: 08/25/21 13:20 Dose: 40 mg Fluticasone Propionate (Fluticasone Propionate 100 Mcg Blst.W.Dev) 2 puff INHALE RBID [facility] Last Admin: 08/25/21 08:22 Dose: Not Given Diltiazem HCl 125 mg/ Sodium (Chloride) 125 mls @ 0 mls/hr IVCONT .Q0M [facility]; Protocol Last Admin: 08/25/21 09:41 Dose: 10 mg/hr, 10 mls/hr Remdesivir 100 mg/ Sodium (Chloride) 230 mls @ 115 mls/hr IV Q24H [facility] Stop: 08/28/21 16:59 Ceftriaxone Sodium 1 gm/ (Sodium Chloride) 50 mls @ 100 mls/hr IV Q24H [facility] Last Infusion: 08/25/21 10:15 Dose: Infused Azithromycin 500 mg/ Sodium (Chloride) 250 mls @ 125 mls/hr IV Q24H [facility] Last Infusion: 08/25/21 13:18 Dose: Infused Vancomycin HCl 1,250 mg/ (Sodium Chloride) 250 mls @ 166.667 mls/hr IV ONCE@0600 ONE Stop: 08/26/21 07:29 Vancomycin HCl 1,250 mg/ (Sodium Chloride) 250 mls @ 166.667 mls/hr IV Q24H [facility] Lamotrigine (Lamotrigine 25 Mg Tablet) 50 mg PO BEDTIME [facility] Last Admin: 08/24/21 22:58 Dose: 50 mg Lamotrigine (Lamotrigine 100 Mg Tablet) 200 mg PO DAILY [facility] Last Admin: 08/25/21 09:23 Dose: 200 mg Montelukast Sodium (Montelukast Sodium 10 Mg Tablet) 10 mg PO DAILY [facility] Last Admin: 08/25/21 09:22 Dose: 10 mg Omeprazole (Omeprazole 20 Mg Capsule.Dr) 20 mg PO DAILY@0630 [facility] Last Admin: 08/25/21 06:11 Dose: 20 mg Ondansetron HCl (Ondansetron Hcl 4 Mg/2 Ml Vial) 4 mg IVPUSH Q8H PRN PRN Reason: Nausea and Vomiting Oxybutynin Chloride (Oxybutynin Chloride Er 5 Mg Tab.Er.24) 10 mg PO DAILY [facility] Last Admin: 08/25/21 09:22 Dose: 10 mg Pharmacy Consult (Consult Rx Perform Med Rec) 1 each MISCELLANE ONCE PRN PRN Reason: Consult order Pharmacy Consult (Consult Rx Vancomycin Dosing) 1 each MISCELLANE DAILY PRN PRN Reason: Consult order Sodium Chloride (0.9 % Sodium Chloride Flush 3 Ml Syringe) [facility] Last Admin: 08/25/21 09:24 Dose: 3 ml Home Medications Medication Instructions Recorded Confirmed Last Taken Type bupropion HCl 200 mg tablet,12 hr 200 mg PO BID 01/11/20 08/24/21 08/23/21 History sustained-release (Wellbutrin SR) albuterol sulfate 90 mcg/actuation 2 puff inhalation Q4-6H PRN 12/05/20 08/24/21 Unknown History aerosol inhaler Shortness Of Breath fluticasone propionate 110 2 puff inhalation BID 12/05/20 08/24/21 08/23/21 History mcg/actuation HFA aerosol inhaler (Flovent HFA) lamotrigine 200 mg tablet 200 mg PO DAILY 12/05/20 08/24/21 08/23/21 History montelukast 10 mg tablet 10 mg PO DAILY 12/05/20 08/24/21 08/23/21 History oxybutynin chloride 10 mg 10 mg PO DAILY 12/05/20 08/24/21 08/23/21 History tablet,extended release 24 hr amlodipine 2.5 mg tablet 2.5 mg PO DAILY 06/07/21 08/24/21 08/23/21 History celecoxib 200 mg capsule 200 mg PO DAILY 06/07/21 08/24/21 08/23/21 History lamotrigine 25 mg tablet 50 mg PO BEDTIME 06/07/21 08/24/21 08/23/21 History pantoprazole 40 mg tablet,delayed 40 mg PO DAILY@0630 08/24/21 08/24/21 08/23/21 History release Physical Exam Vital Signs: Vital Signs: Last Vital Signs Temp 98.2 F 08/25/21 05:51 Pulse 100 08/25/21 11:39 Resp 18 08/25/21 11:39 BP 104/39 L 08/25/21 11:39 Pulse Ox 94 08/25/21 09:30 O2 Del Method 08/25/21 09:30 O2 Flow Rate 3 08/25/21 09:30 BMI result Body Mass Index 26.4 Const: General: cooperative, comfortable, no acute distress, alert, awake and anxious Nutritional Appearance: thin Orientation/consciousness: patient oriented x3 HEENT: Head: Yes normocephalic and Yes atraumatic Neck: Neck: Yes trachea midline, Yes supple and Yes no JVD Chest: Chest palpation & inspection: normal inspection of the chest Resp: Effort & Inspection: normal respiratory effort Auscultation: wheezes lower bilaterally and diminished lung sounds Cardio: Jugular venous distension: no JVD Rate: tachycardic Rhythm: abnormal rhythm irregularly irregular Heart sounds: S1 normal heart sound present, S2 normal heart sound present, no click, no gallops and no murmurs GI: Auscultation: normal bowel sounds Skin: General skin exam: no rashes or lesions noted Neuro: General: patient oriented x3 and no focal motor deficits Extrem: General: Yes no clubbing, cyanosis or edema Objective Labs and Meds Result diagrams: 08/25/21 04:37 08/25/21 04:36 Lab results: Laboratory Results - last 24 hr 08/25/21 08/25/21 08/25/21 04:36 04:37 04:37 WBC 11.5 H RBC 4.06 L Hgb 10.6 L Hct 33.2 L MCV 81.8 MCH 26.1 L MCHC 31.9 RDW 15.2 Plt Count 261 MPV 9.8 Absolute Nucleated RBC 0.000 Nucleated RBC % (auto) 0.0 Sodium 139 Potassium 3.6 Chloride 108 Carbon Dioxide 24 Anion Gap 11 L BUN 18 H Creatinine 0.68 Estim Creat Clear Calc 65.7 Estimated GFR > 60 Random Glucose 127 H Calcium 8.4 Total Bilirubin 0.3 Direct Bilirubin 0.3 AST 12 ALT 10 Alkaline Phosphatase 80 Total Protein 4.7 L Albumin 2.6 L TSH 0.38 Assessment and Plan (1) Atrial fibrillation, new onset: Status: Acute Atrial fibrillation rapid ventricular response triggered by her acute viral illness and pneumonia. Clinically still having rapid heart rate on Cardizem drip. Will continue Cardizem drip and slowly transition her to p.o. Cardizem given her underlying bronchospastic airway disease. Can also give digoxin 0.25 mg IV push times 3 doses for better rate control. Continue treat underlying viral syndrome and supportive care. IV hydration and bronchodilators therapy. She has a prior diagnosis of hypertension although her blood pressure is on the lower side probably due to acute illness. CHADSVASc score of 3. Start oral anticoagulation therapy with Eliquis 5 mg b.i.d.. Will treat her for now with rate control and eventually if she remains in atrial fibrillation once her acute illnesses completed can pursue rhythm control approach as outpatient. Will avoid echocardiogram to reduce exposure at this point in time. Will sign of the case at this point time. Please consult if need be Procedures Date of Service Date of Service: 08/25/21
--- NOTE | 2021-08-25 15:47 | PC.NURSE ---
waiting for pharmacy to bring over the remdezimer
[2021-08-25] MEDS: Remdesivir 100 MG in 0.9 % Sodium Chloride 230 ML 115 MG IV (15:55)
[2021-08-25] MEDS: Digoxin 0.5 MG/2 ML AMPUL 0.25 MG IVPUSH ×2 (15:55→23:37)
--- NOTE | 2021-08-25 16:41 | HO.PM.IMPN ---
Subjective Subjective Date of Service: 08/25/21 Interval History: seen and examined this morning Follow-up for COVID-19, pneumonia, bacteremia, AFib RVR Breathing and cough improved somewhat. Appears to have more energy this morning, reports that she is feeling better Still with productive cough. No palpitations or chest pain at this time. Review of Systems Review of Systems: Yes all other systems are reviewed and are negative Constitutional Constitutional: Denies chills and Denies fever(s) Cardiovascular Cardiovascular: Denies chest pain, Denies palpitations and Denies dyspnea Respiratory Respiratory: Reports cough and Denies dyspnea Gastrointestinal Gastrointestinal: Denies abdominal pain, Denies nausea and Denies vomiting Endocrine Endocrine: Denies palpitations Physical Exam Vital Signs: Vital Signs: Last Vital Signs Temp 98.2 F 08/25/21 05:51 Pulse 110 H 08/25/21 15:56 Resp 18 08/25/21 15:56 BP 115/66 08/25/21 15:56 Pulse Ox 95 08/25/21 15:56 O2 Del Method 08/25/21 15:56 O2 Flow Rate 3 08/25/21 15:56 BMI result Body Mass Index 26.4 Const: General: alert and awake Nutritional Appearance: average body habitus Orientation/consciousness: patient oriented x3 Resp: Other: frequent coughing; course breath sounds throughout Effort & Inspection: able to speak in complete sentences Cardio: Rate: tachycardic Rhythm: abnormal rhythm irregularly irregular GI: Inspection: No distended Palpation (GI): Soft to palpation and nontender Neuro: General: patient oriented x3 and CN's II-XI intact bilaterally Extrem: General: Yes no pedal edema Objective Data Active Medications Acetaminophen (Acetaminophen 325 Mg Tablet) 650 mg PO Q6H PRN PRN Reason: Pain, Mild (Pain Scale 1-3) Last Admin: 08/24/21 16:23 Dose: 650 mg Documented By: JAYDEN Albuterol Sulfate (Albuterol Sulfate 90 Mcg 8 Gm Inhaler) 2 puff INHALE Q4H PRN PRN Reason: Shortness Of Breath Amlodipine Besylate (Amlodipine Besylate 2.5 Mg Tablet) 2.5 mg PO DAILY [facility]; Protocol Last Admin: 08/25/21 09:23 Dose: 2.5 mg Documented By: CHAPITO Apixaban (Apixaban 5 Mg Tablet) 5 mg PO BID [facility] Benzonatate (Benzonatate 100 Mg Capsule) 100 mg PO TID PRN PRN Reason: Cough Last Admin: 08/25/21 06:11 Dose: 100 mg Documented By: BEVERLY Bupropion HCl (Bupropion Hcl Xl 300 Mg Tab.Er.24h) 300 mg PO DAILY [facility] Last Admin: 08/25/21 09:22 Dose: 300 mg Documented By: CHAPITO Bupropion HCl (Bupropion Hcl Xl 150 Mg Tab.Er.24h) 150 mg PO DAILY [facility] Last Admin: 08/25/21 09:22 Dose: 150 mg Documented By: CHAPITO Dexamethasone Sodium Phosphate (Dexamethasone Sod Phosphate 4 Mg/Ml Vial) 6 mg IVPUSH DAILY [facility] Last Admin: 08/25/21 09:24 Dose: 6 mg Documented By: CHAPITO Digoxin (Digoxin 0.5 Mg/2 Ml Ampul) 0.25 mg IVPUSH Q6H [facility] Stop: 08/25/21 22:01 Last Admin: 08/25/21 15:55 Dose: 0.25 mg Documented By: CHAPITO Docusate Sodium (Docusate Sodium 100 Mg Capsule) 100 mg PO DAILY PRN PRN Reason: Constipation Fluticasone Propionate (Fluticasone Propionate 100 Mcg Blst.W.Dev) 2 puff INHALE RBID [facility] Last Admin: 08/25/21 08:22 Dose: Not Given Documented By: DAYANA Non-Admin Reason: Med Not Available Diltiazem HCl 125 mg/ Sodium (Chloride) 125 mls @ 0 mls/hr IVCONT .Q0M [facility]; Protocol Last Admin: 08/25/21 09:41 Dose: 10 mg/hr, 10 mls/hr Documented By: MARILYN Remdesivir 100 mg/ Sodium (Chloride) 230 mls @ 115 mls/hr IV Q24H [facility] Stop: 08/28/21 16:59 Last Admin: 08/25/21 15:55 Dose: 115 mls/hr Documented By: CHAPITO Ceftriaxone Sodium 1 gm/ (Sodium Chloride) 50 mls @ 100 mls/hr IV Q24H [facility] Last Infusion: 08/25/21 10:15 Dose: 0 mls/hr Documented By: MARILYN Azithromycin 500 mg/ Sodium (Chloride) 250 mls @ 125 mls/hr IV Q24H [facility] Last Infusion: 08/25/21 13:18 Dose: 0 mls/hr Documented By: CHAPITO Vancomycin HCl 1,250 mg/ (Sodium Chloride) 250 mls @ 166.667 mls/hr IV ONCE@0600 [facility] Stop: 08/26/21 07:29 Vancomycin HCl 1,250 mg/ (Sodium Chloride) 250 mls @ 166.667 mls/hr IV Q24H [facility] Lamotrigine (Lamotrigine 25 Mg Tablet) 50 mg PO BEDTIME [facility] Last Admin: 08/24/21 22:58 Dose: 50 mg Documented By: BEVERLY Lamotrigine (Lamotrigine 100 Mg Tablet) 200 mg PO DAILY [facility] Last Admin: 08/25/21 09:23 Dose: 200 mg Documented By: CHAPITO Montelukast Sodium (Montelukast Sodium 10 Mg Tablet) 10 mg PO DAILY [facility] Last Admin: 08/25/21 09:22 Dose: 10 mg Documented By: CHAPITO Omeprazole (Omeprazole 20 Mg Capsule.Dr) 20 mg PO DAILY@0630 [facility] Last Admin: 08/25/21 06:11 Dose: 20 mg Documented By: BEVERLY Ondansetron HCl (Ondansetron Hcl 4 Mg/2 Ml Vial) 4 mg IVPUSH Q8H PRN PRN Reason: Nausea and Vomiting Oxybutynin Chloride (Oxybutynin Chloride Er 5 Mg Tab.Er.24) 10 mg PO DAILY [facility] Last Admin: 08/25/21 09:22 Dose: 10 mg Documented By: CHAPITO Pharmacy Consult (Consult Rx Perform Med Rec) 1 each MISCELLANE ONCE PRN PRN Reason: Consult order Pharmacy Consult (Consult Rx Vancomycin Dosing) 1 each MISCELLANE DAILY PRN PRN Reason: Consult order Sodium Chloride (0.9 % Sodium Chloride Flush 3 Ml Syringe) 3 ml IVFLUSH QSHIFT [facility] Last Admin: 08/25/21 16:02 Dose: 3 ml Documented By: CHAPITO Labs CBC & Chem 7: 08/25/21 04:37 08/25/21 04:36 Labs: Laboratory Results - last 24 hr 08/25/21 08/25/21 08/25/21 04:36 04:37 04:37 MCV 81.8 MCH 26.1 L MCHC 31.9 RDW 15.2 Plt Count 261 MPV 9.8 Absolute Nucleated RBC 0.000 Nucleated RBC % (auto) 0.0 Anion Gap 11 L Estim Creat Clear Calc 65.7 Estimated GFR > 60 Random Glucose 127 H Calcium 8.4 Total Bilirubin 0.3 Direct Bilirubin 0.3 AST 12 ALT 10 Alkaline Phosphatase 80 Total Protein 4.7 L Albumin 2.6 L TSH 0.38 Microbiology Microbiology Results: Microbiology 08/25/21 01:04 Blood Culture - Preliminary Blood - Venous Prelim: GPC Gram Stain only 08/25/21 01:04 Blood Culture - Preliminary Blood - Venous Prelim: GPC Gram Stain only 08/24/21 09:24 Blood Culture - Preliminary Blood - Venous Prelim: GPC Gram Stain only 08/24/21 09:25 Blood Culture - Preliminary Blood - Venous Prelim: GPC Gram Stain only Assessment and Plan (1) COVID-19 virus infection: Status: Acute (2) Pneumonia: Status: Acute (3) Atrial fibrillation, new onset: Status: Acute Plan This is a 70-year-old female with history of hypertension, asthma, recent trip to [place] who presents to the emergency department with cough, muscle aches found to have COVID-19, pneumonia, rapid atrial fibrillation Acute respiratory failure with hypoxia Related to underlying COVID-19, pneumonia Continue supplemental oxygen as needed COVID-19 pneumonia Will start remdesivir, Decadron d#2 Follow-up LFTs Trend inflammatory markers Gram + bacteremia 2 sets of blood cultures positive for GPC - final cultures pending vancomycin added ID consult pending ECHO pending will need repeat BCx, will hold off to order until am since repeat from this am already + Probable superimposed bacterial pneumonia imaging not typical of covid 19 procalcitonin 3.13 continue ceftriaxone, azithromycin Blood cultures + as above Atrial fibrillation with rapid ventricular response Received 2 doses of IV Cardizem in the ED, persistently tachycardic Will start Cardizem drip Echocardiogram pending Check TSH, magnesium within normal limits will start AC with ELiquis seen by cardiology - rec dig IV to assist with rate control Elevated cardiac enzymes Troponin elevated around 100 but flat Likely secondary to demand SIRS met sirs criteria with tachycardia and leukocytosis. lactic negative Tachycardia secondary to rapid AFib. No sepsis HTN d/c norvasc while on cardizem drip Asthma Continue Flovent, albuterol Mood continue lamotrigine, Wellbutrin DVT ppx - Eliquis code status - full code HCP - Saadcharissajeff Attending - dr. Brown Will require ongoing inpatient hospitalization due to rapid atrial fibrillation, bacterial pneumonia, bacteremia Quality Stroke Does the patient have a stroke diagnosis?: No VTE Prior VTE?: No VTE Risk Level:: Medical - moderate - high VTE Device Contraindication: N/A - Device Ordered VTE Drug Contraindication: N/A - Med Ordered
[2021-08-25] MEDS: Apixaban 5 MG TABLET PO (20:29)
[2021-08-25] MEDS: lamoTRIgine 25 MG TABLET 50 MG PO (20:29)
--- NOTE | 2021-08-25 20:41 | PC.NURSE ---
bed time meds given per apr. pt reporting no pain. resting comfortably on stretcher. vital signs updated. pt wearing 3L O2 NC sat 96%.NAD. HR 110s, on diltiazem drip per apr. assisted to bedside commode. call tapia within reach. will continue to monitor closely.
[2021-08-26] VITALS (9 sets, daily range): BP systolic 101–149; BP diastolic 58–110; PULSE 83–122; RESP 17–26; TEMP 36.6–36.8; O2SAT 93–96
[2021-08-26] MEDS: Gabapentin 100 MG CAPSULE PO (00:25)
[2021-08-26] MEDS: dilTIAZem HCL 125 MG in 0.9 % Sodium Chloride 100 ML 10 MG IVCONT (00:25)
--- NOTE | 2021-08-26 02:29 | PC.NURSE ---
pt sleeping comfortably on stretcher. no respiratory distress. equal chest rise and fall. diltiazem drip paused per mar orders for HR < 90. pt on radiation monitor. HR 86. call tapia within reach. will continue to monitor closely
--- NOTE | 2021-08-26 04:02 | PC.NURSE ---
pt assisted up to bedside commode. placed back on radiation monitor. resting comfortably on stretcher. call tapia within reach.
[2021-08-26] MEDS: 0.9 % Sodium Chloride Flush 3 ML SYRINGE IVFLUSH ×2 (05:01→07:45)
[2021-08-26] MEDS: vancomycin HCL 1,250 MG in 0.9 % Sodium Chloride 250 ML 166.67 MG IV (05:48)
[2021-08-26] MEDS: Omeprazole 20 MG CAPSULE.DR PO (05:49)
[2021-08-26 07:41] LABS: MANUAL DIFF FLAG NO
[2021-08-26 07:45] LABS: Basophils Percent Auto 0.1 % (0-2); Hematocrit 31.4 % (37.0-47.0); Hemoglobin 10.2 g/dl (12.0-16.0); Imm Gran Abs Auto 0.61 X10*3/uL (0.00-0.03); Imm Gran Pct Auto 3.6 % (0.0-0.4); Lymphocytes Absolute Auto 0.9 X10*3/uL (1.2-4.9); Lymphocytes Percent Auto 5.4 % (20-40); Mean Corpuscular HGB Conc 32.5 g/dl (31.0-35.0); Mean Corpuscular Volume 80.1 fL (80.0-98.0); Mean Platelet Volume 9.9 fL (9.4-12.3); Monocytes Absolute Auto 0.6 X10*3/uL (0.1-1.2); Monocytes Percent Auto 3.7 % (2-11); Neutrophils Absolute Auto 14.8 x10*3/uL (2.0-8.3); Neutrophils Percent Auto 87.2 % (45-73); Platelet Count 310 X10*3/uL (160-400); Red Blood Count 3.92 X10*6/uL (4.20-5.50); Red Cell Distribution Width 15.5 % (11.0-16.0); White Blood Count 16.9 X10*3/uL (4.8-10.8)
[2021-08-26] MEDS: cefTRIAXone sodium 1 GM in 0.9 % Sodium Chloride 50 ML IV (07:45)
[2021-08-26 08:08] LABS: Alanine Aminotransferase 14 U/L (0-31); Albumin Level 2.6 g/dL (3.5-5.0); Alkaline Phosphatase 86 U/L (39-117); Anion Gap 9 (12-20); Aspartate Amino Transferase 15 U/L (5-31); Bilirubin Direct 0.2 mg/dL (0.0-0.5); Bilirubin Total 0.2 mg/dL (0.0-1.0); Blood Urea Nitrogen 22 mg/dL (9-16); C Reactive Protein 13.35 mg/dL (< or = 0.50); Calcium 8.5 mg/dL (8.4-10.2); Carbon Dioxide 26 mmol/L (22-29); Chloride 107 mmol/L (96-108); Creatinine Clr Calc Pharmacy 69.8; Estimated Glomerular Filt Rate > 60; Glucose Random 150 mg/dL (60-115); Lactate Dehydrogenase 159 U/L (122-220); Potassium 3.6 mmol/L (3.3-5.1); Sodium 138 mmol/L (135-145); Total Protein 4.9 g/dL (6.5-8.0)
[2021-08-26] MEDS: Azithromycin 500 MG in 0.9 % Sodium Chloride 250 ML 125 MG IV (08:23)
[2021-08-26 08:25] LABS: Ferritin 297 ng/mL (10-250)
[2021-08-26] MEDS: Montelukast Sodium 10 MG TABLET PO (08:46)
[2021-08-26] MEDS: dexAMETHasone sod phosphate 4 MG/ML VIAL 6 MG IVPUSH (08:46)
[2021-08-26] MEDS: Apixaban 5 MG TABLET PO ×2 (08:46→20:31)
[2021-08-26] MEDS: buPROPion HCl XL 150 MG TAB.ER.24H PO (08:46)
[2021-08-26] MEDS: lamoTRIgine 100 MG TABLET 200 MG PO (08:46)
[2021-08-26] MEDS: buPROPion HCl XL 300 MG TAB.ER.24H PO (08:59)
--- NOTE | 2021-08-26 08:59 | HE.PHANOTE ---
Vancomycin Dosing Addendum Patient on 1250mg Q24. Random level due 08/27 @0500. Predicted AUC 525 mg/L/hr with a Trough of 15.4 mg/L.
--- NOTE | 2021-08-26 13:34 | P.CNID_ITS ---
History of Present Illness Data of Consult Service Date: 08/26/21 Requesting physician: Elaina Poole Primary Care Provider: Eddie Messina MD HPI Reason for consult: sepsis,pneumonia She presents with six days cough ,shortness of breath and chills. SHe had just returned from [place] and [place]. She tests positive for COVID in ER. She also has oxygen need. She has RLL infiltrate. 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 Review of Systems Review of Systems: Yes all other systems are reviewed and are negative [facility] Past Medical History Medical History Asthma Hypertension UTI (urinary tract infection) Family History Family history: reviewed and not pertinent Surgical History Surgical History History of total left hip arthroplasty History of total right hip arthroplasty S/P laparoscopic sleeve gastrectomy Social History Social History Alcohol intake: never Patient Tobacco Use Status: Former Tobacco user Use of substances other than those prescribed or required for medical reasons: No Advance Directives: No Advance Directives Information Provided: Yes service: No 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al status: retired 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 Allergies Allergy/AdvReac Type Severity Reaction Status Date / Time No Known Allergies Allergy Verified 06/07/21 08:43 [No Known Allergies*] Active Medications: Current Medications Acetaminophen (Acetaminophen 325 Mg Tablet) 650 mg PO Q6H PRN PRN Reason: Pain, Mild (Pain Scale 1-3) Last Admin: 08/24/21 16:23 Dose: 650 mg Albuterol Sulfate (Albuterol Sulfate 90 Mcg 8 Gm Inhaler) 2 puff INHALE Q4H PRN PRN Reason: Shortness Of Breath Apixaban (Apixaban 5 Mg Tablet) 5 mg PO BID JAKY Last Admin: 08/26/21 08:46 Dose: 5 mg Benzonatate (Benzonatate 100 Mg Capsule) 100 mg PO TID PRN PRN Reason: Cough Last Admin: 08/25/21 20:37 Dose: 100 mg Bupropion HCl (Bupropion Hcl Xl 300 Mg Tab.Er.24h) 300 mg PO DAILY JAKY Last Admin: 08/26/21 08:59 Dose: 300 mg Bupropion HCl (Bupropion Hcl Xl 150 Mg Tab.Er.24h) 150 mg PO DAILY [facility] Last Admin: 08/26/21 08:46 Dose: 150 mg Dexamethasone Sodium Phosphate (Dexamethasone Sod Phosphate 4 Mg/Ml Vial) 6 mg IVPUSH DAILY [facility] Last Admin: 08/26/21 08:46 Dose: 6 mg Docusate Sodium (Docusate Sodium 100 Mg Capsule) 100 mg PO DAILY PRN PRN Reason: Constipation Fluticasone Propionate (Fluticasone Propionate 100 Mcg Blst.W.Dev) 2 puff INHALE RBID [facility] Last Admin: 08/26/21 11:17 Dose: Not Given Diltiazem HCl 125 mg/ Sodium (Chloride) 125 mls @ 0 mls/hr IVCONT .Q0M [facility]; Protocol Last Titration: 08/26/21 08:35 Dose: 5 mg/hr, 5 mls/hr Remdesivir 100 mg/ Sodium (Chloride) 230 mls @ 115 mls/hr IV Q24H [facility] Stop: 08/28/21 16:59 Last Infusion: 08/25/21 19:00 Dose: Infused Ceftriaxone Sodium 1 gm/ (Sodium Chloride) 50 mls @ 100 mls/hr IV Q24H [facility] Last Admin: 08/26/21 07:45 Dose: 100 mls/hr Azithromycin 500 mg/ Sodium (Chloride) 250 mls @ 125 mls/hr IV Q24H [facility] Last Admin: 08/26/21 08:23 Dose: 125 mls/hr Vancomycin HCl 1,250 mg/ (Sodium Chloride) 250 mls @ 166.667 mls/hr IV Q24H [facility] Lamotrigine (Lamotrigine 25 Mg Tablet) 50 mg PO BEDTIME [facility] Last Admin: 08/25/21 20:29 Dose: 50 mg Lamotrigine (Lamotrigine 100 Mg Tablet) 200 mg PO DAILY [facility] Last Admin: 08/26/21 08:46 Dose: 200 mg Montelukast Sodium (Montelukast Sodium 10 Mg Tablet) 10 mg PO DAILY [facility] Last Admin: 08/26/21 08:46 Dose: 10 mg Omeprazole (Omeprazole 20 Mg Capsule.Dr) 20 mg PO DAILY@0630 [facility] Last Admin: 08/26/21 05:49 Dose: 20 mg Ondansetron HCl (Ondansetron Hcl 4 Mg/2 Ml Vial) 4 mg IVPUSH Q8H PRN PRN Reason: Nausea and Vomiting Oxybutynin Chloride (Oxybutynin Chloride Er 5 Mg Tab.Er.24) 10 mg PO DAILY [facility] Last Admin: 08/26/21 08:45 Dose: 10 mg Pharmacy Consult (Consult Rx Perform Med Rec) 1 each MISCELLANE ONCE PRN PRN Reason: Consult order Pharmacy Consult (Consult Rx Vancomycin Dosing) 1 each MISCELLANE DAILY PRN PRN Reason: Consult order Sodium Chloride (0.9 % Sodium Chloride Flush 3 Ml Syringe) 3 ml IVFLUSH QSHIFT [facility] Last Admin: 08/26/21 07:45 Dose: 3 ml Home Medications Medication Instructions Recorded Confirmed Last Taken Type bupropion HCl 200 mg tablet,12 hr 200 mg PO BID 01/11/20 08/24/21 08/23/21 History sustained-release (Wellbutrin SR) albuterol sulfate 90 mcg/actuation 2 puff inhalation Q4-6H PRN 12/05/20 08/24/21 Unknown History aerosol inhaler Shortness Of Breath fluticasone propionate 110 2 puff inhalation BID 12/05/20 08/24/21 08/23/21 History mcg/actuation HFA aerosol inhaler (Flovent HFA) lamotrigine 200 mg tablet 200 mg PO DAILY 12/05/20 08/24/21 08/23/21 History montelukast 10 mg tablet 10 mg PO DAILY 12/05/20 08/24/21 08/23/21 History oxybutynin chloride 10 mg 10 mg PO DAILY 12/05/20 08/24/21 08/23/21 History tablet,extended release 24 hr amlodipine 2.5 mg tablet 2.5 mg PO DAILY 06/07/21 08/24/21 08/23/21 History celecoxib 200 mg capsule 200 mg PO DAILY 06/07/21 08/24/21 08/23/21 History lamotrigine 25 mg tablet 50 mg PO BEDTIME 06/07/21 08/24/21 08/23/21 History pantoprazole 40 mg tablet,delayed 40 mg PO DAILY@0630 08/24/21 08/24/21 08/23/21 History release Physical Exam Vital Signs: Vital Signs: Last Vital Signs Temp 97.9 F 08/26/21 05:52 Pulse 98 08/26/21 08:47 Resp 17 08/26/21 08:47 BP 101/62 08/26/21 08:47 Pulse Ox 95 08/26/21 08:47 O2 Del Method 08/26/21 08:47 O2 Flow Rate 3 08/26/21 08:47 BMI result Body Mass Index 26.4 Eyes: General: appearance normal, both eyes and all related structures Resp: Effort & Inspection: normal respiratory effort Cardio: Rate: regular rate Rhythm: regular rhythm GI: Palpation (GI): nontender Extrem: General: Yes normal to inspection Results Labs CBC & Chem 7: 08/26/21 07:34 08/26/21 07:34 Labs: Short CBC 08/26/21 Range/Units 07:34 WBC 16.9 H (4.8-10.8) X10*3/uL Hgb 10.2 L (12.0-16.0) g/dl Hct 31.4 L (37.0-47.0) % Plt Count 310 (160-400) X10*3/uL BMP 08/26/21 07:34 Sodium 138 Potassium 3.6 Chloride 107 Carbon Dioxide 26 BUN 22 H Creatinine 0.64 Calcium 8.5 Liver Function 08/26/21 Range/Units 07:34 Total Bilirubin 0.2 (0.0-1.0) mg/dL Direct Bilirubin 0.2 (0.0-0.5) mg/dL AST 15 (5-31) U/L ALT 14 (0-31) U/L Alkaline Phosphatase 86 (39-117) U/L Albumin 2.6 L (3.5-5.0) g/dL Microbiology Microbiology Results: Microbiology 08/25/21 01:04 Blood - Venous Blood Culture - Preliminary Staphylococcus species 08/25/21 01:04 Blood - Venous Blood Culture - Preliminary Staphylococcus species 08/24/21 09:24 Blood - Venous Blood Culture - Preliminary Staphylococcus species 08/24/21 09:25 Blood - Venous Blood Culture - Preliminary Staphylococcus species Assessment and Plan (1) COVID-19 virus infection: Status: Acute Oxygen demand Ceftriaxone and Zmax continue Check mrsa nares,stop Vancomycin for now; Would continue Remdesivir and Dexamethasone per protocol,nasal cannula oxygen (2) Pneumonia: Status: Acute (3) Atrial fibrillation, new onset: Status: Acute
[2021-08-26] MEDS: Remdesivir 100 MG in 0.9 % Sodium Chloride 230 ML 115 MG IV (15:06)
--- NOTE | 2021-08-26 15:50 | P.PNIM_ITS ---
Subjective Subjective Date of Service: 08/26/21 Review of Systems Follow-up for COVID-19, pneumonia, bacteremia, AFib RVR Breathing and cough improved somewhat.? Appears to have more energy this morning, reports that she is feeling better Still with productive cough.? No palpitations or chest pain at this time. Physical Exam Vital Signs: Vital Signs: Last Vital Signs Temp 97.9 F 08/26/21 05:52 Pulse 98 08/26/21 08:47 Resp 17 08/26/21 08:47 BP 101/62 08/26/21 08:47 Pulse Ox 95 08/26/21 08:47 O2 Del Method 08/26/21 08:47 O2 Flow Rate 3 08/26/21 08:47 BMI result Body Mass Index 26.4 Appearing in no acute distress lung sounds are clear to auscultation heart regular rate rhythm, clear S1, S2 positive bowel sounds, abdomen is soft, nontender neuro patient is alert x3, no focal deficits Objective Data Active Medications Acetaminophen (Acetaminophen 325 Mg Tablet) 650 mg PO Q6H PRN PRN Reason: Pain, Mild (Pain Scale 1-3) Last Admin: 08/24/21 16:23 Dose: 650 mg Documented By: JAYDEN Albuterol Sulfate (Albuterol Sulfate 90 Mcg 8 Gm Inhaler) 2 puff INHALE Q4H PRN PRN Reason: Shortness Of Breath Apixaban (Apixaban 5 Mg Tablet) 5 mg PO BID [facility] Last Admin: 08/26/21 08:46 Dose: 5 mg Documented By: AMADEO Benzonatate (Benzonatate 100 Mg Capsule) 100 mg PO TID PRN PRN Reason: Cough Last Admin: 08/25/21 20:37 Dose: 100 mg Documented By: MIGNON Bupropion HCl (Bupropion Hcl Xl 300 Mg Tab.Er.24h) 300 mg PO DAILY [facility] Last Admin: 08/26/21 08:59 Dose: 300 mg Documented By: AMADEO Bupropion HCl (Bupropion Hcl Xl 150 Mg Tab.Er.24h) 150 mg PO DAILY [facility] Last Admin: 08/26/21 08:46 Dose: 150 mg Documented By: AMADEO Dexamethasone Sodium Phosphate (Dexamethasone Sod Phosphate 4 Mg/Ml Vial) 6 mg IVPUSH DAILY [facility] Last Admin: 08/26/21 08:46 Dose: 6 mg Documented By: AMADEO Docusate Sodium (Docusate Sodium 100 Mg Capsule) 100 mg PO DAILY PRN PRN Reason: Constipation Fluticasone Propionate (Fluticasone Propionate 100 Mcg Blst.W.Dev) 2 puff INHALE RBID [facility] Last Admin: 08/26/21 11:17 Dose: Not Given Documented By: NHI Non-Admin Reason: Med Not Available Diltiazem HCl 125 mg/ Sodium (Chloride) 125 mls @ 0 mls/hr IVCONT .Q0M [facility]; Protocol Last Titration: 08/26/21 08:35 Dose: 5 mg/hr, 5 mls/hr Documented By: AMADEO Remdesivir 100 mg/ Sodium (Chloride) 230 mls @ 115 mls/hr IV Q24H [facility] Stop: 08/28/21 16:59 Last Admin: 08/26/21 15:06 Dose: 115 mls/hr Documented By: RIVERA Ceftriaxone Sodium 1 gm/ (Sodium Chloride) 50 mls @ 100 mls/hr IV Q24H [facility] Last Admin: 08/26/21 07:45 Dose: 100 mls/hr Documented By: AMADEO Azithromycin 500 mg/ Sodium (Chloride) 250 mls @ 125 mls/hr IV Q24H [facility] Last Admin: 08/26/21 08:23 Dose: 125 mls/hr Documented By: AMADEO Lamotrigine (Lamotrigine 25 Mg Tablet) 50 mg PO BEDTIME [facility] Last Admin: 08/25/21 20:29 Dose: 50 mg Documented By: MIGNON Lamotrigine (Lamotrigine 100 Mg Tablet) 200 mg PO DAILY [facility] Last Admin: 08/26/21 08:46 Dose: 200 mg Documented By: AMADEO Montelukast Sodium (Montelukast Sodium 10 Mg Tablet) 10 mg PO DAILY [facility] Last Admin: 08/26/21 08:46 Dose: 10 mg Documented By: AMADEO Omeprazole (Omeprazole 20 Mg Capsule.) 20 mg PO DAILY@0630 [facility] Last Admin: 08/26/21 05:49 Dose: 20 mg Documented By: MIGNON Ondansetron HCl (Ondansetron Hcl 4 Mg/2 Ml Vial) 4 mg IVPUSH Q8H PRN PRN Reason: Nausea and Vomiting Oxybutynin Chloride (Oxybutynin Chloride Er 5 Mg Tab.Er.24) 10 mg PO DAILY [facility] Last Admin: 08/26/21 08:45 Dose: 10 mg Documented By: AMADEO Pharmacy Consult (Consult Rx Perform Med Rec) 1 each MISCELLANE ONCE PRN PRN Reason: Consult order Pharmacy Consult (Consult Rx Vancomycin Dosing) 1 each MISCELLANE DAILY PRN PRN Reason: Consult order Sodium Chloride (0.9 % Sodium Chloride Flush 3 Ml Syringe) 3 ml IVFLUSH QSHIFT [facility] Last Admin: 08/26/21 07:45 Dose: 3 ml Documented By: AMADEO Labs CBC & Chem 7: 08/26/21 07:34 08/26/21 07:34 Labs: Laboratory Results - last 24 hr 08/26/21 08/26/21 07:34 07:34 MCV 80.1 MCH 26.0 L MCHC 32.5 RDW 15.5 Plt Count 310 MPV 9.9 Immature Gran % (Auto) 3.6 H Neut % (Auto) 87.2 H Lymph % (Auto) 5.4 L Leake % (Auto) 3.7 Eos % (Auto) 0.0 Baso % (Auto) 0.1 Lymph # (Auto) 0.9 L Leake # (Auto) 0.6 Eos # (Auto) 0.0 Baso # (Auto) 0.0 Abs Immat Gran (auto) 0.61 H Absolute Neuts (auto) 14.8 H Absolute Nucleated RBC 0.000 Nucleated RBC % (auto) 0.0 Anion Gap 9 L Estim Creat Clear Calc 69.8 Estimated GFR > 60 Random Glucose 150 H Calcium 8.5 Ferritin 297 H Total Bilirubin 0.2 Direct Bilirubin 0.2 AST 15 ALT 14 Alkaline Phosphatase 86 Lactate Dehydrogenase 159 C-Reactive Protein 13.35 H Total Protein 4.9 L Albumin 2.6 L Microbiology Microbiology Results: Microbiology 08/25/21 01:04 Blood Culture - Preliminary Blood - Venous Staphylococcus species 08/25/21 01:04 Blood Culture - Preliminary Blood - Venous Staphylococcus species 08/24/21 09:24 Blood Culture - Preliminary Blood - Venous Staphylococcus species 08/24/21 09:25 Blood Culture - Preliminary Blood - Venous Staphylococcus species Assessment and Plan (1) COVID-19 virus infection: Status: Acute Plan This is a 70-year-old female with history of hypertension, asthma, recent trip to [place] who presents to the emergency department with cough, muscle aches found to have COVID-19, pneumonia, rapid atrial fibrillation Acute respiratory failure with hypoxia Related to underlying COVID-19, pneumonia Continue supplemental oxygen as needed Will start remdesivir, Decadron Follow-up LFTs Trend inflammatory markers procalcitonin 3.13 continue ceftriaxone, azithromycin Gram + bacteremia 2 sets of blood cultures positive for GPC - final cultures pending vancomycin added ID consult ECHO pending will need repeat BCx, will hold off to order until am since repeat from this am already + Atrial fibrillation with rapid ventricular response Received 2 doses of IV Cardizem in the ED, persistently tachycardic Continue Cardizem drip Echocardiogram pending Check TSH, magnesium within normal limits will start AC with ELiquis seen by cardiology - rec dig IV to assist with rate control Elevated cardiac enzymes Troponin elevated around 100 but flat Likely secondary to demand SIRS met sirs criteria with tachycardia and leukocytosis. lactic negative Tachycardia secondary to rapid AFib.? No sepsis HTN d/c norvasc while on cardizem drip Asthma Continue Flovent, albuterol Mood continue lamotrigine, Wellbutrin DVT ppx - Eliquis code status - full code HCP - [place] Attending - dr. Brown Will require ongoing inpatient hospitalization due to rapid atrial fibrillation, bacterial pneumonia, bacteremia Quality Stroke Does the patient have a stroke diagnosis?: No VTE Prior VTE?: No VTE Risk Level:: Medical - moderate - high VTE Device Contraindication: N/A - Device Ordered VTE Drug Contraindication: N/A - Med Ordered
[2021-08-26] MEDS: lamoTRIgine 25 MG TABLET 50 MG PO (20:31)
[2021-08-26] MEDS: Benzonatate 100 MG CAPSULE PO (20:32)
[2021-08-26] MEDS: Fluticasone Propionate 100 MCG BLST.W.DEV 2 PUFF INHALE (20:33)
[2021-08-27] VITALS (10 sets, daily range): BP systolic 102–152; BP diastolic 54–90; PULSE 94–154; RESP 16–24; TEMP 36.6–36.7; O2SAT 93–99; BMI 28.0
--- NOTE | 2021-08-27 00:03 | PC.NURSE ---
Pt HR was fluctuating between 115-130 bpm. Cardizem drip titrated up to 10 mL/hr.
--- NOTE | 2021-08-27 00:46 | PC.NURSE ---
Pt complaining of SOB. Provider notified and ordered 1 mg of morphine to help work of breathing. 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 Provider will be notified. O2 increased to 4 L/min to improve SpO2 to 96%.
[2021-08-27] MEDS: Albuterol Sulfate 90 MCG 8 GM INHALER 2 PUFF INHALE (00:59)
[2021-08-27] MEDS: dilTIAZem HCL 125 MG in 0.9 % Sodium Chloride 100 ML 15 MG IVCONT (01:05)
[2021-08-27] MEDS: guaiFEN/Codeine SF 200/20/10ML 10 ML LIQUID 5 ML PO (02:09)
--- NOTE | 2021-08-27 03:52 | PC.NURSE ---
Helped pt to use the in room commode. Straightened pt bedding and cords and got pt back in bed. Will continue to monitor.
[2021-08-27 05:17] LABS: Vancomycin Random 7.1 mcg/mL (15-20)
[2021-08-27] MEDS: Omeprazole 20 MG CAPSULE.DR PO (06:37)
[2021-08-27 07:46] LABS: Creatinine Clr Calc Pharmacy 61.2; Estimated Glomerular Filt Rate > 60
[2021-08-27 08:28] LABS: MRSA Nasal PCR NEGATIVE (Negative); SA Nasal PCR POSITIVE (Negative)
[2021-08-27] MEDS: cefTRIAXone sodium 1 GM in 0.9 % Sodium Chloride 50 ML IV (08:42)
[2021-08-27] MEDS: Montelukast Sodium 10 MG TABLET PO (08:46)
[2021-08-27] MEDS: lamoTRIgine 100 MG TABLET 200 MG PO (08:48)
[2021-08-27] MEDS: dexAMETHasone sod phosphate 4 MG/ML VIAL 6 MG IVPUSH (08:49)
[2021-08-27] MEDS: Apixaban 5 MG TABLET PO ×2 (08:49→22:00)
[2021-08-27] MEDS: Azithromycin 500 MG in 0.9 % Sodium Chloride 250 ML 125 MG IV (09:53)
[2021-08-27] MEDS: buPROPion HCl XL 300 MG TAB.ER.24H PO (09:57)
[2021-08-27] MEDS: buPROPion HCl XL 150 MG TAB.ER.24H PO (09:57)
[2021-08-27] MEDS: Fluticasone Propionate 100 MCG BLST.W.DEV 2 PUFF INHALE ×2 (10:01→10:09)
--- NOTE | 2021-08-27 10:28 | P.CDIC_ITS ---
CDI Concurrent Query Documentation Clarification: PHYSICIAN'S DOCUMENTATION REQUEST Date of Query: 08/27/21 1028 Patient Name: Shilpa Hartman Admit Date: 08/24/21 Dear Doctor, A review of the medical record indicates additional documentation may be needed. Please review below and update the documentation accordingly Risk Factors/Clinical Indicators/Treatments ID: 08/26 - Sepsis, pneumonia. Covid virus infection, oxygen, Ceftriaxone, Zmax, stop Vancomycin for now. WBC 16.9 HR 114 RR 24 PN: 08/26 - Gram positive Bacteremia, 2 sets of blood cultures positive for GPC. Vancomycin added, ID consult. Sirs criteria, tachycardia, leukocytosis, no sepsis. Bacteremia GPC due to: Abnormal laboratory test - does not indicate a clinically ill patient Sepsis due to: Systemic manifestations of infection, with 2 or more SIRS criteria which include: * Fever > 100.4?F or hypothermia < 96.8?F * Leukocytosis ? WBC > 12,000 or leukopenia, WBC < 4,000, or > 10% bands * Tachycardia- > 90 beats/minute * Tachypnea- RR > 20 breaths/minute or PaCO2 < 32mmHg Source: [employer] Manual 2013 Documentation should include the known or suspected organism, and the underlying infection, such as UTI or pneumonia Based on the above information and the recognized standard for sepsis, could you please clarify in the Progress Notes if this diagnoses is still accurate and reflective of the patient's condition to ensure quality of the medical record. Clarity and consistency of diagnosis documented within the medical record: * Sepsis is/was present due to covid pneumonia * Sepsis due to other infectious process * Other (please specify) * Unable to determine Use of terms such as suspected, likely, concern for, or probable (associated with a specific diagnosis that is being evaluated, monitored, or treated as if it exists) are acceptable and can be coded in the inpatient setting, when d ocumented at the time of discharge. Thank you, Barb Fleming [facility], [facility] Extension: [phone] Please use your independent medical judgment in providing your response. THIS QUERY IS PART OF THE PERMANENT MEDICAL RECORD Other Diagnosis: sEE NOTE
--- NOTE | 2021-08-27 11:49 | P.PNIM_ITS ---
Subjective Subjective Date of Service: 08/27/21 Review of Systems Follow-up for COVID-19, pneumonia, bacteremia, AFib RVR Breathing and cough improved somewhat.? Appears to have more energy this morning, reports that she is feeling better Still with productive cough.? No palpitations or chest pain at this time. Physical Exam Vital Signs: Vital Signs: Last Vital Signs Temp 98.0 F 08/27/21 08:11 Pulse 97 08/27/21 09:58 Resp 22 H 08/27/21 09:58 BP 141/71 H 08/27/21 08:11 Pulse Ox 99 08/27/21 09:58 O2 Del Method 08/27/21 09:58 O2 Flow Rate 2 08/27/21 09:58 BMI result Body Mass Index 26.4 Appearing in no acute distress lungs normal expansion heart regular rate rhythm abdomennontender neuro patient is alert x3, no focal deficits Objective Data Active Medications Acetaminophen (Acetaminophen 325 Mg Tablet) 650 mg PO Q6H PRN PRN Reason: Pain, Mild (Pain Scale 1-3) Last Admin: 08/24/21 16:23 Dose: 650 mg Documented By: JAYDEN Albuterol Sulfate (Albuterol Sulfate 90 Mcg 8 Gm Inhaler) 2 puff INHALE Q4H PRN PRN Reason: Shortness Of Breath Last Admin: 08/27/21 00:59 Dose: 2 puff Documented By: ADARSH Apixaban (Apixaban 5 Mg Tablet) 5 mg PO BID [facility] Last Admin: 08/27/21 08:49 Dose: 5 mg Documented By: TOBIN Benzonatate (Benzonatate 100 Mg Capsule) 100 mg PO TID PRN PRN Reason: Cough Last Admin: 08/26/21 20:32 Dose: 100 mg Documented By: ADARSH Bupropion HCl (Bupropion Hcl Xl 300 Mg Tab.Er.24h) 300 mg PO DAILY [facility] Last Admin: 08/27/21 09:57 Dose: 300 mg Documented By: TOBIN Bupropion HCl (Bupropion Hcl Xl 150 Mg Tab.Er.24h) 150 mg PO DAILY [facility] Last Admin: 08/27/21 09:57 Dose: 150 mg Documented By: TOBIN Dexamethasone Sodium Phosphate (Dexamethasone Sod Phosphate 4 Mg/Ml Vial) 6 mg IVPUSH DAILY [facility] Last Admin: 08/27/21 08:49 Dose: 6 mg Documented By: TOBIN Docusate Sodium (Docusate Sodium 100 Mg Capsule) 100 mg PO DAILY PRN PRN Reason: Constipation Fluticasone Propionate (Fluticasone Propionate 100 Mcg Blst.W.Dev) 2 puff INHALE RBID [facility] Last Admin: 08/27/21 10:01 Dose: 2 puff Documented By: TOBIN Diltiazem HCl 125 mg/ Sodium (Chloride) 125 mls @ 0 mls/hr IVCONT .Q0M [facility]; Protocol Last Titration: 08/27/21 04:27 Dose: 5 mg/hr, 5 mls/hr Documented By: ADARSH Remdesivir 100 mg/ Sodium (Chloride) 230 mls @ 115 mls/hr IV Q24H [facility] Stop: 08/28/21 16:59 Last Infusion: 08/26/21 19:15 Dose: 0 mls/hr Documented By: RIVERA Ceftriaxone Sodium 1 gm/ (Sodium Chloride) 50 mls @ 100 mls/hr IV Q24H [facility] Last Infusion: 08/27/21 09:55 Dose: 0 mls/hr Documented By: TOBIN Azithromycin 500 mg/ Sodium (Chloride) 250 mls @ 125 mls/hr IV Q24H [facility] Last Admin: 08/27/21 09:53 Dose: 125 mls/hr Documented By: TOBIN Vancomycin HCl 1,500 mg/ (Sodium Chloride) 500 mls @ 333.333 mls/hr IV Q24H [facility] Lamotrigine (Lamotrigine 25 Mg Tablet) 50 mg PO BEDTIME [facility] Last Admin: 08/26/21 20:31 Dose: 50 mg Documented By: ADARSH Lamotrigine (Lamotrigine 100 Mg Tablet) 200 mg PO DAILY [facility] Last Admin: 08/27/21 08:48 Dose: 200 mg Documented By: TOBIN Montelukast Sodium (Montelukast Sodium 10 Mg Tablet) 10 mg PO DAILY [facility] Last Admin: 08/27/21 08:46 Dose: 10 mg Documented By: TOBIN Morphine Sulfate (Morphine Sulfate 2 Mg/Ml Cartridge) 1 mg IVPUSH Q4H PRN; Protocol PRN Reason: Pain/SOB Omeprazole (Omeprazole 20 Mg Capsule.) 20 mg PO DAILY@0630 [facility] Last Admin: 08/27/21 06:37 Dose: 20 mg Documented By: ADARSH Ondansetron HCl (Ondansetron Hcl 4 Mg/2 Ml Vial) 4 mg IVPUSH Q8H PRN PRN Reason: Nausea and Vomiting Oxybutynin Chloride (Oxybutynin Chloride Er 5 Mg Tab.Er.24) 10 mg PO DAILY [facility] Last Admin: 08/27/21 08:47 Dose: 10 mg Documented By: TOBIN Pharmacy Consult (Consult Rx Perform Med Rec) 1 each MISCELLANE ONCE PRN PRN Reason: Consult order Pharmacy Consult (Consult Rx Vancomycin Dosing) 1 each MISCELLANE DAILY PRN PRN Reason: Consult order Pharmacy Consult (Consult Rx Vancomycin Dosing) 1 each MISCELLANE DAILY PRN PRN Reason: Consult order Sodium Chloride (0.9 % Sodium Chloride Flush 3 Ml Syringe) 3 ml IVFLUSH QSHIFT [facility] Last Admin: 08/27/21 09:53 Dose: Not Given Documented By: TOBIN Non-Admin Reason: IV Running Labs CBC & Chem 7: 08/26/21 07:34 08/27/21 07:18 Labs: Laboratory Results - last 24 hr 08/27/21 08/27/21 08/27/21 04:34 04:51 07:18 Estim Creat Clear Calc 61.2 Estimated GFR > 60 Nasal Screen MRSA (PCR) NEGATIVE Nasal S. aureus Screen POSITIVE A Nasal MRSA/S.aureus Interp SEE NOTE Random Vancomycin 7.1 L Microbiology Microbiology Results: Microbiology 08/25/21 01:04 Blood Culture - Final Blood - Venous Staphylococcus aureus 08/25/21 01:04 Blood Culture - Final Blood - Venous Staphylococcus aureus 08/24/21 09:24 Blood Culture - Final Blood - Venous Staphylococcus aureus 08/24/21 09:25 Blood Culture - Final Blood - Venous Staphylococcus aureus Assessment and Plan (1) COVID-19 virus infection: Status: Acute Plan This is a 70-year-old female with history of hypertension, asthma, recent trip to [place] who presents to the emergency department with cough, muscle aches found to have COVID-19, pneumonia, rapid atrial fibrillation Acute respiratory failure with hypoxia Related to underlying COVID-19, pneumonia Continue supplemental oxygen as needed Will start remdesivir, Decadron Follow-up LFTs Trend inflammatory markers procalcitonin 3.13 continue ceftriaxone, azithromycin sepsis secondary to Gram + bacteremia 2 sets of blood cultures positive for GPC - final cultures pending vancomycin added ID consult ECHO pending will need repeat BCx Atrial fibrillation with rapid ventricular response Received 2 doses of IV Cardizem in the ED, persistently tachycardic Continue Cardizem drip Echocardiogram pending Check TSH, magnesium within normal limits will start AC with ELiquis seen by cardiology - rec dig IV to assist with rate control Elevated cardiac enzymes Troponin elevated around 100 but flat Likely secondary to demand SIRS met sirs criteria with tachycardia and leukocytosis. lactic negative Tachycardia secondary to rapid AFib.? No sepsis HTN d/c norvasc while on cardizem drip Asthma Continue Flovent, albuterol Mood continue lamotrigine, Wellbutrin DVT ppx - Eliquis code status - full code HCP - Krishna Attending - dr. Brown Will require ongoing inpatient hospitalization due to rapid atrial fibrillation, bacterial pneumonia, bacteremia Quality Stroke Does the patient have a stroke diagnosis?: No VTE Prior VTE?: No VTE Risk Level:: Medical - moderate - high VTE Device Contraindication: N/A - Device Ordered VTE Drug Contraindication: N/A - Med Ordered
[2021-08-27] MEDS: vancomycin HCL 1,500 MG in 0.9 % Sodium Chloride 500 ML 333.33 MG IV (12:46)
--- NOTE | 2021-08-27 13:54 | PC.NURSE ---
SPOKE WITH PTS IN THE WR REGARDING UPDATES OF HER CARE PLAN. PT DEMONSTRATES NO RESP DIFFICULTY TODAY, REMAINS ON 02NC , HR BETWEEN 90-110'S.
--- NOTE | 2021-08-27 16:06 | PC.NURSE ---
PT FOUND IN THE HALLWAY,DRESSED AND DISCONNECTED FROM HER IVS, SHE STATES SHE WAS HEADED HOME. THIS CONFUSION IS A CHANGE FROM BASELINE. SHE WAS AT 91%O2 ON ROOM AIR, HR IN LOW 100'S PER RN WHO ASSISTED HER BACK ON THE MONITOR AND MEDS PROVIDER MADE AWARE OF BASELINE CHANGE
--- NOTE | 2021-08-27 18:06 | PC.NURSE ---
PT HAD A CT SCAN FOR ACUTE BEHAVIORAL CHANGES, SHE IS STILL GETTING A CARDIZEM GTT AND IV ANTIBIOTICS. HR ON THE MONITOR IN THE 120'S. NO RESP DIFFICULTY NOTED. REMAINS ON 02 NC
[2021-08-27] MEDS: Remdesivir 100 MG in 0.9 % Sodium Chloride 230 ML 115 MG IV (18:45)
[2021-08-27] MEDS: lamoTRIgine 25 MG TABLET 50 MG PO (22:00)
[2021-08-28] VITALS (7 sets, daily range): BP systolic 129–156; BP diastolic 59–81; PULSE 85–112; RESP 17–21; TEMP 36.2–36.8; O2SAT 91–96
[2021-08-28] MEDS: 0.9 % Sodium Chloride Flush 3 ML SYRINGE IVFLUSH ×4 (00:58→20:15)
--- NOTE | 2021-08-28 04:16 | PC.NURSE ---
Pt had runs of KIMBERLYN. Asymptomatic. Cardizem drip infusing as ordered. Pt also had some confusion. She knew who she was and that she was in the hospital but she stated, when are we going to let her out of this obstacle . Pt easily redirectable and reoriented. Camera in room and bed alarm on. Will continue to monitor.
[2021-08-28] MEDS: Omeprazole 20 MG CAPSULE.DR PO (06:00)
[2021-08-28] MEDS: Azithromycin 500 MG in 0.9 % Sodium Chloride 250 ML 125 MG IV (06:01)
[2021-08-28] MEDS: dilTIAZem HCL 125 MG in 0.9 % Sodium Chloride 100 ML 15 MG IVCONT (06:25)
[2021-08-28 06:36] LABS: Creatinine Clr Calc Pharmacy 64.8; Estimated Glomerular Filt Rate > 60
[2021-08-28 06:47] LABS: Vancomycin Trough 9.5 mcg/mL (10.0-20.0)
--- NOTE | 2021-08-28 07:48 | HE.PHANOTE ---
Vancomycin Dosing Addendum Vancomycin trough 9.5. Vancomycin increased yesterday to 1500 mg q24h. Predicted AUC of 468. Continue with current regimen
[2021-08-28] MEDS: Fluticasone Propionate 100 MCG BLST.W.DEV 2 PUFF INHALE ×2 (08:10→18:32)
[2021-08-28] MEDS: cefTRIAXone sodium 1 GM in 0.9 % Sodium Chloride 50 ML IV (08:22)
[2021-08-28] MEDS: dexAMETHasone sod phosphate 4 MG/ML VIAL 6 MG IVPUSH (08:22)
[2021-08-28] MEDS: Montelukast Sodium 10 MG TABLET PO (08:23)
[2021-08-28] MEDS: lamoTRIgine 100 MG TABLET 200 MG PO (08:23)
[2021-08-28] MEDS: Apixaban 5 MG TABLET PO ×2 (08:24→20:15)
[2021-08-28] MEDS: buPROPion HCl XL 300 MG TAB.ER.24H PO (08:24)
[2021-08-28] MEDS: buPROPion HCl XL 150 MG TAB.ER.24H PO (08:25)
[2021-08-28] MEDS: vancomycin HCL 1,500 MG in 0.9 % Sodium Chloride 500 ML 333.33 MG IV (09:32)
[2021-08-28] MEDS: dilTIAZem HCL 125 MG in 0.9 % Sodium Chloride 100 ML 10 MG IVCONT (11:16)
--- NOTE | 2021-08-28 13:12 | MHC.CM.PN ---
Per MD rounds, no discharge today. Case management will continue to follow for discharge planning needs.
[2021-08-28] MEDS: dilTIAZem HCL 30 MG TABLET PO ×3 (13:36→20:14)
[2021-08-28] MEDS: Remdesivir 100 MG in 0.9 % Sodium Chloride 230 ML 115 MG IV (15:31)
--- NOTE | 2021-08-28 16:27 | HO.PM.IMPN ---
Subjective Subjective Date of Service: 08/28/21 Interval History: Feeling significantly better since admission denies fever chills overnight, less shortness of breath, ventricular rate improved, denies chest pain, no palpitations, denies nausea vomiting or abdominal pain. Review of Systems Review of Systems: Yes all other systems are reviewed and are negative Physical Exam Vital Signs: Vital Signs: Last Vital Signs Temp 98 F 08/28/21 12:00 Pulse 103 H 08/28/21 12:00 Resp 20 08/28/21 12:00 BP 137/81 08/28/21 12:00 Pulse Ox 94 08/28/21 12:00 O2 Del Method 08/28/21 12:00 O2 Flow Rate 2 08/28/21 04:00 BMI result Body Mass Index 28.0 Const: Other: General awake alert x3, no acute distress. Neck supple no JVD. CVS irregular rate rhythm, Respiratory lungs clear to auscultation, no respiratory distress, no wheeze, no rhonchi. Gastrointestinal abdomen soft, nontender, bowel sounds audible, no guarding , no rigidity. Extremities no edema. Neuro nonfocal ,moving all 4 extremity, speech clear. Skin no rash Psych appropriate affect Objective Data Active Medications Acetaminophen (Acetaminophen 325 Mg Tablet) 650 mg PO Q6H PRN PRN Reason: Pain, Mild (Pain Scale 1-3) Last Admin: 08/24/21 16:23 Dose: 650 mg Documented By: JAYDEN Albuterol Sulfate (Albuterol Sulfate 90 Mcg 8 Gm Inhaler) 2 puff INHALE Q4H PRN PRN Reason: Shortness Of Breath Last Admin: 08/27/21 00:59 Dose: 2 puff Documented By: ADARSH Apixaban (Apixaban 5 Mg Tablet) 5 mg PO BID [facility] Last Admin: 08/28/21 08:24 Dose: 5 mg Documented By: PIPPA Benzonatate (Benzonatate 100 Mg Capsule) 100 mg PO TID PRN PRN Reason: Cough Last Admin: 08/26/21 20:32 Dose: 100 mg Documented By: ADARSH Bupropion HCl (Bupropion Hcl Xl 300 Mg Tab.Er.24h) 300 mg PO DAILY [facility] Last Admin: 08/28/21 08:24 Dose: 300 mg Documented By: PIPPA Bupropion HCl (Bupropion Hcl Xl 150 Mg Tab.Er.24h) 150 mg PO DAILY [facility] Last Admin: 08/28/21 08:25 Dose: 150 mg Documented By: PIPPA Dexamethasone Sodium Phosphate (Dexamethasone Sod Phosphate 4 Mg/Ml Vial) 6 mg IVPUSH DAILY [facility] Last Admin: 08/28/21 08:22 Dose: 6 mg Documented By: PIPPA Diltiazem HCl (Diltiazem Hcl 30 Mg Tablet) 30 mg PO QID [facility]; Protocol Last Admin: 08/28/21 13:36 Dose: 30 mg Documented By: PIPPA Docusate Sodium (Docusate Sodium 100 Mg Capsule) 100 mg PO DAILY PRN PRN Reason: Constipation Fluticasone Propionate (Fluticasone Propionate 100 Mcg Blst.W.Dev) 2 puff INHALE RBID [facility] Last Admin: 08/28/21 08:10 Dose: 2 puff Documented By: BREENEDELIA Remdesivir 100 mg/ Sodium (Chloride) 230 mls @ 115 mls/hr IV Q24H [facility] Stop: 08/28/21 16:59 Last Admin: 08/28/21 15:31 Dose: 115 mls/hr Documented By: PIPPA Cefazolin Sodium 1 gm/ Sodium (Chloride) 50 mls @ 100 mls/hr IV Q8H [facility] Lamotrigine (Lamotrigine 25 Mg Tablet) 50 mg PO BEDTIME [facility] Last Admin: 08/27/21 22:00 Dose: 50 mg Documented By: CHUCKY Lamotrigine (Lamotrigine 100 Mg Tablet) 200 mg PO DAILY [facility] Last Admin: 08/28/21 08:23 Dose: 200 mg Documented By: PIPPA Montelukast Sodium (Montelukast Sodium 10 Mg Tablet) 10 mg PO DAILY [facility] Last Admin: 08/28/21 08:23 Dose: 10 mg Documented By: PIPPA Morphine Sulfate (Morphine Sulfate 2 Mg/Ml Cartridge) 1 mg IVPUSH Q4H PRN; Protocol PRN Reason: Pain/SOB Omeprazole (Omeprazole 20 Mg Capsule.) 20 mg PO DAILY@0630 [facility] Last Admin: 08/28/21 06:00 Dose: 20 mg Documented By: CHUCKY Ondansetron HCl (Ondansetron Hcl 4 Mg/2 Ml Vial) 4 mg IVPUSH Q8H PRN PRN Reason: Nausea and Vomiting Oxybutynin Chloride (Oxybutynin Chloride Er 5 Mg Tab.Er.24) 10 mg PO DAILY [facility] Last Admin: 08/28/21 08:23 Dose: 10 mg Documented By: PIPPA Pharmacy Consult (Consult Rx Perform Med Rec) 1 each MISCELLANE ONCE PRN PRN Reason: Consult order Pharmacy Consult (Consult Rx Vancomycin Dosing) 1 each MISCELLANE DAILY PRN PRN Reason: Consult order Pharmacy Consult (Consult Rx Vancomycin Dosing) 1 each MISCELLANE DAILY PRN PRN Reason: Consult order Sodium Chloride (0.9 % Sodium Chloride Flush 3 Ml Syringe) 3 ml IVFLUSH QSHIFT [facility] Last Admin: 08/28/21 15:31 Dose: 3 ml Documented By: PIPPA Labs CBC & Chem 7: 08/26/21 07:34 08/28/21 06:13 Labs: Laboratory Results - last 24 hr 08/28/21 08/28/21 06:13 06:13 Estim Creat Clear Calc 64.8 Estimated GFR > 60 Vancomycin Trough 9.5 L Microbiology Microbiology Results: Microbiology 08/27/21 09:44 Blood Culture - Preliminary Blood - Venous Prelim: GPC Gram Stain only 08/27/21 09:44 Blood Culture - Preliminary Blood - Venous No growth after 24 hours. Assessment and Plan (1) COVID-19 virus infection: Status: Acute Plan This is a 70-year-old female with history of hypertension, asthma, recent trip to [place] who presents to the emergency department with cough, muscle aches found to have COVID-19, pneumonia, rapid atrial fibrillation Acute respiratory failure with hypoxia Related to underlying COVID-19, pneumonia Chest x-ray showed dense retrocardiac opacity and small left pleural effusion and some was streaky opacity at the right lung base Continue remdesivir, IV Decadron and IV antibiotics, supplemental oxygen as needed Trend inflammatory markers procalcitonin 3.13, repeat level sepsis secondary to staph aureus bacteremia Patient clinically feeling better less shortness of breath, no fevers no chills leukocytosis likely due to steroid Case discussed with Dr. Ring will DC IV vancomycin, IV ceftriaxone and azithromycin will place patient on IV Kefzol Repeat blood cultures 1/2 bottle positive for gram-positive cocci is stain only Atrial fibrillation with rapid ventricular response Received 2 doses of IV Cardizem in the ED, tachycardia improved will DC IV Cardizem drip place patient on by mouth Cardizem 30 mg q.[address] Castillo he recommend to avoid echocardiogram to reduce exposure, continue Eliquis TSH, and magnesium within normal limits Elevated cardiac enzymes Troponin elevated around 100 but flat,Likely secondary to demand HTN d/c norvasc while on cardizem Asthma Continue Flovent, albuterol, on Decadron for COVID infection Mood continue lamotrigine, Wellbutrin DVT ppx - Eliquis code status - full code HCP - Krishna Will require ongoing inpatient hospitalization due to bacterial pneumonia, bacteremia requiring IV antibiotics. Quality Stroke Does the patient have a stroke diagnosis?: No VTE Prior VTE?: No VTE Risk Level:: Medical - moderate - high VTE Device Contraindication: N/A - Device Ordered VTE Drug Contraindication: N/A - Med Ordered
--- NOTE | 2021-08-28 16:49 | PM.IDPN ---
Subjective Subjective Date of Service: 08/28/21 Critical Care Time (minutes): 15 Comment: She has MSSA bacteremia She is on room air She has clearing blood culture Objective Data Labs CBC & Chem 7: 08/26/21 07:34 08/28/21 06:13 Labs: Laboratory Results - last 24 hr 08/28/21 08/28/21 06:13 06:13 Creatinine 0.71 Estim Creat Clear Calc 64.8 Estimated GFR > 60 Vancomycin Trough 9.5 L Microbiology Microbiology Results: Microbiology 08/27/21 09:44 Blood - Venous Blood Culture - Preliminary Prelim: GPC Gram Stain only 08/27/21 09:44 Blood - Venous Blood Culture - Preliminary No growth after 24 hours. 08/25/21 01:04 Blood - Venous Blood Culture - Final Staphylococcus aureus 08/25/21 01:04 Blood - Venous Blood Culture - Final Staphylococcus aureus 08/24/21 09:24 Blood - Venous Blood Culture - Final Staphylococcus aureus 08/24/21 09:25 Blood - Venous Blood Culture - Final Staphylococcus aureus Physical Exam Vital Signs: Vital Signs: Last Vital Signs Temp 97.9 F 08/28/21 16:00 Pulse 98 08/28/21 16:00 Resp 17 08/28/21 16:00 BP 153/74 H 08/28/21 16:00 Pulse Ox 94 08/28/21 16:00 O2 Del Method 08/28/21 16:00 O2 Flow Rate 2 08/28/21 04:00 BMI result Body Mass Index 28.0 Const: General: cooperative HEENT: Head: Yes normal to inspection Resp: Effort & Inspection: normal respiratory effort Cardio: Rate: regular rate Rhythm: regular rhythm GI: Palpation (GI): nontender Extrem: General: Yes normal to inspection Assessment and Plan Assessment and plan (1) COVID-19 virus infection: Problem details: stable stop Dexamethasone since not hypoxic on room air and stop remdesivir if still on room air tomorrow Status: Acute (2) MSSA bacteremia: Problem details: possible source would be skin or lung MSSA Check echo Kefzol for four weeks most likely cause hypoxia MSSA with immune suppression COVID Status: Acute Time Spent With Patient Time: Total time spent is greater than 50% in coordination of care (as documented) at patient's floor/unit and/or counseling patient:
[2021-08-28] MEDS: lamoTRIgine 25 MG TABLET 50 MG PO (20:15)
[2021-08-28] MEDS: Nystatin Oral Susp 500,000 UNIT/5 ML ORAL.SUSP 400000 UNIT BUCCAL (21:05)
[2021-08-29] VITALS (7 sets, daily range): BP systolic 121–155; BP diastolic 70–90; PULSE 76–99; RESP 16–20; TEMP 36.4–37.1; O2SAT 94–98
[2021-08-29] MEDS: Omeprazole 20 MG CAPSULE.DR PO (05:40)
[2021-08-29 07:44] LABS: Creatinine Clr Calc Pharmacy 63.8; Estimated Glomerular Filt Rate > 60
[2021-08-29 07:52] LABS: Vancomycin Trough 10.7 mcg/mL (10.0-20.0)
[2021-08-29] MEDS: Fluconazole 100 MG TABLET 200 MG PO (10:51)
[2021-08-29] MEDS: buPROPion HCl XL 300 MG TAB.ER.24H PO (10:52)
[2021-08-29] MEDS: Montelukast Sodium 10 MG TABLET PO (10:52)
[2021-08-29] MEDS: Apixaban 5 MG TABLET PO ×2 (10:52→21:50)
[2021-08-29] MEDS: dilTIAZem HCL CD 120 MG CAP.ER.DEG PO (10:52)
[2021-08-29] MEDS: Nystatin Oral Susp 500,000 UNIT/5 ML ORAL.SUSP 400000 UNIT BUCCAL ×4 (10:52→21:49)
[2021-08-29] MEDS: lamoTRIgine 100 MG TABLET 200 MG PO (10:52)
[2021-08-29] MEDS: 0.9 % Sodium Chloride Flush 3 ML SYRINGE IVFLUSH (10:53)
[2021-08-29] MEDS: buPROPion HCl XL 150 MG TAB.ER.24H PO (10:53)
[2021-08-29] MEDS: Acetaminophen 325 MG TABLET 650 MG PO (14:15)
--- NOTE | 2021-08-29 14:47 | P.PNIM_ITS ---
Subjective Subjective Date of Service: 08/29/21 Interval History: Complaining of sore mouth, also having diarrhea several bouts last night, denies nausea, no vomiting, no abdominal discomfort, complaining of persistent shortness of breath but better, denies chest pain, no palpitations. Review of Systems Review of Systems: Yes all other systems are reviewed and are negative Physical Exam Vital Signs: Vital Signs: Last Vital Signs Temp 97.6 F 08/29/21 11:25 Pulse 97 08/29/21 11:25 Resp 19 08/29/21 11:25 BP 140/88 H 08/29/21 11:25 Pulse Ox 94 08/29/21 11:25 O2 Del Method 08/29/21 11:25 O2 Flow Rate 2 08/29/21 11:25 BMI result Body Mass Index 28.0 Const: Other: General awake alert x3, no acute distress.? Oral mucosa tongue with white coating and mild hyperemia Neck? supple no JVD. CVS irregular rate rhythm, Respiratory lungs left lung base crepitus, no respiratory distress, no wheeze Gastrointestinal abdomen soft, nontender, bowel sounds audible, no guarding , no rigidity. Extremities no edema. Neuro nonfocal ,moving all 4 extremity, speech clear. Skin no rash Psych appropriate affect Objective Data Active Medications Acetaminophen (Acetaminophen 325 Mg Tablet) 650 mg PO Q6H PRN PRN Reason: Pain, Mild (Pain Scale 1-3) Last Admin: 08/29/21 14:15 Dose: 650 mg Documented By: MARILOU Albuterol Sulfate (Albuterol Sulfate 90 Mcg 8 Gm Inhaler) 2 puff INHALE Q4H PRN PRN Reason: Shortness Of Breath Last Admin: 08/27/21 00:59 Dose: 2 puff Documented By: ADARSH Apixaban (Apixaban 5 Mg Tablet) 5 mg PO BID [facility] Last Admin: 08/29/21 10:52 Dose: 5 mg Documented By: BROB Benzonatate (Benzonatate 100 Mg Capsule) 100 mg PO TID PRN PRN Reason: Cough Last Admin: 08/26/21 20:32 Dose: 100 mg Documented By: ADARSH Bupropion HCl (Bupropion Hcl Xl 300 Mg Tab.Er.24h) 300 mg PO DAILY [facility] Last Admin: 08/29/21 10:52 Dose: 300 mg Documented By: MARILOU Bupropion HCl (Bupropion Hcl Xl 150 Mg Tab.Er.24h) 150 mg PO DAILY [facility] Last Admin: 08/29/21 10:53 Dose: 150 mg Documented By: MARILOU Diltiazem HCl (Diltiazem Hcl Cd 120 Mg Cap.Er.Deg) 120 mg PO DAILY [facility]; Protocol Last Admin: 08/29/21 10:52 Dose: 120 mg Documented By: MARILOU Docusate Sodium (Docusate Sodium 100 Mg Capsule) 100 mg PO DAILY PRN PRN Reason: Constipation Fluticasone Propionate (Fluticasone Propionate 100 Mcg Blst.W.Dev) 2 puff INHALE RBID [facility] Last Admin: 08/28/21 18:32 Dose: 2 puff Documented By: PIPPA Cefazolin Sodium 1 gm/ Sodium (Chloride) 50 mls @ 100 mls/hr IV Q8H [facility] Last Admin: 08/29/21 14:16 Dose: 100 mls/hr Documented By: MARILOU Lamotrigine (Lamotrigine 25 Mg Tablet) 50 mg PO BEDTIME [facility] Last Admin: 08/28/21 20:15 Dose: 50 mg Documented By: YAO Lamotrigine (Lamotrigine 100 Mg Tablet) 200 mg PO DAILY [facility] Last Admin: 08/29/21 10:52 Dose: 200 mg Documented By: MARILOU Montelukast Sodium (Montelukast Sodium 10 Mg Tablet) 10 mg PO DAILY [facility] Last Admin: 08/29/21 10:52 Dose: 10 mg Documented By: MARILOU Morphine Sulfate (Morphine Sulfate 2 Mg/Ml Cartridge) 1 mg IVPUSH Q4H PRN; Protocol PRN Reason: Pain/SOB Nystatin (Nystatin Oral Susp 500,000 Unit/5 Ml Oral.Susp) 400,000 unit BUCCAL QID [facility]; Protocol Last Admin: 08/29/21 14:15 Dose: 400,000 unit Documented By: MARILOU Omeprazole (Omeprazole 20 Mg Capsule.Dr) 20 mg PO DAILY@0630 [facility] Last Admin: 08/29/21 05:40 Dose: 20 mg Documented By: YAO Ondansetron HCl (Ondansetron Hcl 4 Mg/2 Ml Vial) 4 mg IVPUSH Q8H PRN PRN Reason: Nausea and Vomiting Oxybutynin Chloride (Oxybutynin Chloride Er 5 Mg Tab.Er.24) 10 mg PO DAILY [facility] Last Admin: 08/29/21 10:51 Dose: 10 mg Documented By: MARILOU Pharmacy Consult (Consult Rx Perform Med Rec) 1 each MISCELLANE ONCE PRN PRN Reason: Consult order Pharmacy Consult (Consult Rx Vancomycin Dosing) 1 each MISCELLANE DAILY PRN PRN Reason: Consult order Pharmacy Consult (Consult Rx Vancomycin Dosing) 1 each MISCELLANE DAILY PRN PRN Reason: Consult order Sodium Chloride (0.9 % Sodium Chloride Flush 3 Ml Syringe) 3 ml IVFLUSH QSHIFT [facility] Last Admin: 08/29/21 10:53 Dose: 3 ml Documented By: MARILOU Labs CBC & Chem 7: 08/26/21 07:34 08/29/21 07:17 Labs: Laboratory Results - last 24 hr 08/29/21 08/29/21 07:17 07:17 Estim Creat Clear Calc 63.8 Estimated GFR > 60 Vancomycin Trough 10.7 Microbiology Microbiology Results: Microbiology 08/27/21 09:44 Blood Culture - Preliminary Blood - Venous No growth after 48 hours. 08/27/21 09:44 Blood Culture - Final Blood - Venous Staphylococcus aureus Assessment and Plan (1) COVID-19 virus infection: Status: Acute Plan This is a 70-year-old female with history of hypertension, asthma, recent trip to [place] who presents to the emergency department with cough, muscle aches found to have COVID-19, pneumonia, rapid atrial fibrillation Acute respiratory failure with hypoxia Related to underlying COVID-19, pneumonia Chest x-ray showed dense retrocardiac opacity and small left pleural effusion and streaky opacity at the right lung base Finish course of remdesivir, s/p IV Decadron x 5 d Continue IV antibiotics, supplemental oxygen as needed Elevated CRP/procalcitonin 3.13, repeat level at am. sepsis secondary to staph aureus bacteremia Patient clinically feeling better less shortness of breath, no fevers no chills leukocytosis likely due to steroid Case discussed with Dr. Ring continue IV Kefzol for total 4 weeks, status post IV vancomycin, IV ceftriaxone and azithromycin Repeat blood cultures 1/2 bottle positive for MSSA likely source skin versus linda ngs Will obtain echocardiogram Atrial fibrillation with rapid ventricular response Received 2 doses of IV Cardizem in the ED, tachycardia improved will place on Cardizem CD 120 mg daily continue Eliquis TSH, and magnesium within normal limits Diarrhea likely related to antibiotics check C diff if negative will place on Imodium Oral thrush Significant discomfort will give 1 dose of Diflucan/continue nystatin, likely related to antibiotics/Flovent will recommend to rinse mouth after steroid in halers Elevated cardiac enzymes Troponin elevated around 100 but flat,Likely secondary to demand HTN d/c norvasc while on cardizem , stable BP Asthma Continue Flovent, albuterol, no acute exacerbation Mood continue lamotrigine, Wellbutrin DVT ppx - Eliquis code status - full code HCP - Krishna Will require ongoing inpatient hospitalization due to bacterial pneumonia, bacteremia requiring IV antibiotics. Quality Stroke Does the patient have a stroke diagnosis?: No VTE Prior VTE?: No VTE Risk Level:: Medical - moderate - high VTE Device Contraindication: N/A - Device Ordered VTE Drug Contraindication: N/A - Med Ordered
[2021-08-29] MEDS: Albuterol Sulfate 90 MCG 8 GM INHALER 2 PUFF INHALE (18:21)
[2021-08-29] MEDS: Fluticasone Propionate 100 MCG BLST.W.DEV 2 PUFF INHALE (20:11)
[2021-08-29] MEDS: lamoTRIgine 25 MG TABLET 50 MG PO (21:49)
[2021-08-30] VITALS (8 sets, daily range): BP systolic 97–140; BP diastolic 64–77; PULSE 86–105; RESP 16–20; TEMP 36.1–37.1; O2SAT 90–96
[2021-08-30] MEDS: 0.9 % Sodium Chloride Flush 3 ML SYRINGE IVFLUSH ×3 (00:34→17:27)
[2021-08-30] MEDS: Omeprazole 20 MG CAPSULE.DR PO (05:48)
[2021-08-30] MEDS: Acetaminophen 325 MG TABLET 650 MG PO ×2 (06:24→13:21)
--- NOTE | 2021-08-30 07:00 | CA_ITS ---
Transthoracic Echocardiogram Patient (Last, First, Middle): Shilpa Hartman M Gender: Female Date of : 1950 Age: 70 Procedure Date: 08/30/2021 Procedure Type: Transthoracic Echocardiogram Location: [facility] Height: 154.94 cm Weight: 63.5 kg BSA: 1.62 m2 Heart Rate: bpm BP: 141 / 71 mmHg Tool Technician: Referring MD: Elaina Poole NP Symptoms: Gram Positive Culture, Bacteremia Study Quality: Fair ECG Rhythm: Sinus Conclusions: - Normal left ventricular size and systolic function. There is mildly increased left ventricular wall thickness. The visually estimated ejection fraction is between 60-65 - Diastolic function is indeterminate on the basis of available data. - Normal right ventricular cavity size and systolic function. - The left atrium is mildly dilated. Findings Left Ventricle Normal left ventricular size and systolic function. There is mildly increased left ventricular wall thickness. The visually estimated ejection fraction is between 60-65%. There is no evidence of regional wall motion abnormalities. Diastolic function is indeterminate on the basis of available data. Right Ventricle Normal right ventricular cavity size and systolic function. Atria The left atrium is mildly dilated. Aortic Valve Normal aortic valve structure and function. There is no aortic valve stenosis. There is trace (trivial) aortic valve regurgitation. Mitral Valve The mitral valve appears normal. There is no mitral valve regurgitation. There is no mitral valve stenosis. Pulmonic Valve The pulmonic valve is likely normal. Tricuspid Valve Normal tricuspid valve structure and function. There is mild tricuspid valve regurgitation. Normal right atrial pressure. There is no evidence of pulmonary hypertension. Great Vessels All visible segments of the aorta are normal in size. Venous The inferior vena cava is normal in size and collapses greater than 50% with inspiration. Pericardium/Pleural There is no evidence of pericardial effusion. Measurements 2D Linear Measurements IVSd: 1.30 0.6-0.9/0.6-1.0 cm LVIDd: 4.03 3.9-5.3/4.2-5.9 cm LVIDd Index: 2.49 2.4-3.2/2.2-3.1 cm/m2 LVIDs: 2.64 2.0-3.6 cm LVPWd: 1.33 0.7-1.1 cm Ao Root: 3.00 2.1-3.5 cm LA Diam: 3.60 2.7-3.8/3.0-4.0 cm LAIDs Index: 2.22 1.5-2.3 cm/m2 LV Mass: 239.16 67-162/88-224 g LV Mass Index: 147.63 43-95/49-115 g/m2 LVOT Diam: 2.00 3.0+(-)1.3 cm Mitral Valve MV Pk E: 1.01 MV Decel Time: 190.00 E'Lateral: 14.40 E'Medial: 8.05 E/E' Med: 12.50 E/E' Lat: 7.00 PHT: 56.00 MVA PHT: 3.93 Decel [place]: 5.03 Aortic Valve AoV Pk Jim: 1.43 AoV Mn Jim: 1.05 AoV VTI: 0.24 AoV Pk Grad: 8.00 Aov Mn Grad: 5.00 HERMILO Cont.VTI: 1.73 LVOT LVOT Pk Jim: 0.76 LVOT Mn Jim: 0.54 LVOT VTI: 0.13 LVOT Pk Grad: 2.00 LVOT Mn Grad: 1.00 LVOT Diam: 2.00 LVOT Area: 3.14 Diastolic Function MV Pk E: 1.01 E'Medial: 8.05 E/E' Med: 12.50 E' Laterial: 14.40 E/E' Lat: 7.00 Tricuspid Valve TR Pk Jim: 2.32 TR Pk Grad: 22.00 RVSP: 25.00 Great Vessels Aorta Ao Root-2D: 3.00 2.0-3.7 cm Ao Asc: 3.30 2.1-3.4 cm Pulmonary Valve PV Pk Jim: 1.05 Peak PV Grad: 4.00 Updated in Other Vendor System with Status of Final Edd Galvez MD electronically signed on 08/31/2021 12:04:06 AM with status of Final
[2021-08-30 07:18] LABS: Hematocrit 37.7 % (37.0-47.0); Hemoglobin 11.9 g/dl (12.0-16.0); Mean Corpuscular HGB Conc 31.6 g/dl (31.0-35.0); Mean Corpuscular Hemoglobin 25.5 pg (27.0-33.0); Mean Corpuscular Volume 80.9 fL (80.0-98.0); Mean Platelet Volume 10.2 fL (9.4-12.3); Platelet Count 335 X10*3/uL (160-400); Red Blood Count 4.66 X10*6/uL (4.20-5.50); Red Cell Distribution Width 16.1 % (11.0-16.0); White Blood Count 21.9 X10*3/uL (4.8-10.8)
[2021-08-30] MEDS: Fluticasone Propionate 100 MCG BLST.W.DEV 2 PUFF INHALE ×2 (07:35→19:53)
[2021-08-30 07:38] LABS: C Reactive Protein 2.26 mg/dL (< or = 0.50); Creatinine Clr Calc Pharmacy 66.6; Estimated Glomerular Filt Rate > 60
[2021-08-30] MEDS: buPROPion HCl XL 300 MG TAB.ER.24H PO (08:09)
[2021-08-30] MEDS: dilTIAZem HCL CD 120 MG CAP.ER.DEG PO (08:09)
[2021-08-30] MEDS: Apixaban 5 MG TABLET PO ×2 (08:09→20:23)
[2021-08-30] MEDS: buPROPion HCl XL 150 MG TAB.ER.24H PO (08:09)
[2021-08-30] MEDS: Montelukast Sodium 10 MG TABLET PO (08:09)
[2021-08-30] MEDS: lamoTRIgine 100 MG TABLET 200 MG PO (08:09)
[2021-08-30] MEDS: Nystatin Oral Susp 500,000 UNIT/5 ML ORAL.SUSP 400000 UNIT BUCCAL ×4 (08:09→20:22)
[2021-08-30 09:24] LABS: Procalcitonin 0.17 ng/mL
[2021-08-30] MEDS: metroNIDAZOLE 500 MG TABLET PO ×2 (09:41→17:26)
[2021-08-30] MEDS: Morphine Sulfate 2 MG/ML CARTRIDGE 1 MG IVPUSH ×2 (13:56→21:03)
--- NOTE | 2021-08-30 16:17 | MHC.CM.PN ---
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 ANTIC D/C EARLY NEXT WEEK, CM WILL CONT TO FOLLOW D/C NEEDS.
--- NOTE | 2021-08-30 16:54 | HO.PM.IMPN ---
Subjective Subjective Date of Service: 08/30/21 Interval History: Feels better no further episodes of loose stools, complaining of bad taste in mouth after using Flagyl, less oral discomfort, no other acute issues overnight noted to have worsening leukocytosis, no fevers, no chills. Review of Systems Review of Systems: Yes all other systems are reviewed and are negative Physical Exam Vital Signs: Vital Signs: Last Vital Signs Temp 98.8 F 08/30/21 16:00 Pulse 105 H 08/30/21 16:00 Resp 18 08/30/21 16:00 BP 126/72 08/30/21 16:00 Pulse Ox 95 08/30/21 16:00 O2 Del Method 08/30/21 16:00 O2 Flow Rate 2 08/30/21 16:00 BMI result Body Mass Index 28.0 Const: Other: General awake alert x3, no acute distress.? Oral mucosa tongue with white coating and mild hyperemia Neck? supple no JVD. CVS irregular rate rhythm, Respiratory lungs left lung base crepitus, no respiratory distress, no wheeze Gastrointestinal abdomen soft, nontender, bowel sounds audible, no guarding , no rigidity. Extremities no edema. Neuro nonfocal ,moving all 4 extremity, speech clear. Skin no rash Psych appropriate affect Objective Data Active Medications Acetaminophen (Acetaminophen 325 Mg Tablet) 650 mg PO Q6H PRN PRN Reason: Pain, Mild (Pain Scale 1-3) Last Admin: 08/30/21 13:21 Dose: 650 mg Documented By: BETINA Albuterol Sulfate (Albuterol Sulfate 90 Mcg 8 Gm Inhaler) 2 puff INHALE Q4H PRN PRN Reason: Shortness Of Breath Last Admin: 08/29/21 18:21 Dose: 2 puff Documented By: AMINATA Apixaban (Apixaban 5 Mg Tablet) 5 mg PO BID [facility] Last Admin: 08/30/21 08:09 Dose: 5 mg Documented By: BETINA Benzonatate (Benzonatate 100 Mg Capsule) 100 mg PO TID PRN PRN Reason: Cough Last Admin: 08/26/21 20:32 Dose: 100 mg Documented By: ADARSH Bupropion HCl (Bupropion Hcl Xl 300 Mg Tab.Er.24h) 300 mg PO DAILY [facility] Last Admin: 08/30/21 08:09 Dose: 300 mg Documented By: BETINA Bupropion HCl (Bupropion Hcl Xl 150 Mg Tab.Er.24h) 150 mg PO DAILY [facility] Last Admin: 08/30/21 08:09 Dose: 150 mg Documented By: BETINA Diltiazem HCl (Diltiazem Hcl Cd 120 Mg Cap.Er.Deg) 120 mg PO DAILY [facility]; Protocol Last Admin: 08/30/21 08:09 Dose: 120 mg Documented By: BETINA Docusate Sodium (Docusate Sodium 100 Mg Capsule) 100 mg PO DAILY PRN PRN Reason: Constipation Fluticasone Propionate (Fluticasone Propionate 100 Mcg Blst.W.Dev) 2 puff INHALE RBID [facility] Last Admin: 08/30/21 07:35 Dose: 2 puff Documented By: DAYANA Cefazolin Sodium 1 gm/ Sodium (Chloride) 50 mls @ 100 mls/hr IV Q8H [facility] Last Infusion: 08/30/21 14:00 Dose: 0 mls/hr Documented By: BETINA Lamotrigine (Lamotrigine 25 Mg Tablet) 50 mg PO BEDTIME [facility] Last Admin: 08/29/21 21:49 Dose: 50 mg Documented By: NINI Lamotrigine (Lamotrigine 100 Mg Tablet) 200 mg PO DAILY [facility] Last Admin: 08/30/21 08:09 Dose: 200 mg Documented By: BETINA Metronidazole (Metronidazole 500 Mg Tablet) 500 mg PO Q8H [facility] Last Admin: 08/30/21 09:41 Dose: 500 mg Documented By: BETINA Montelukast Sodium (Montelukast Sodium 10 Mg Tablet) 10 mg PO DAILY [facility] Last Admin: 08/30/21 08:09 Dose: 10 mg Documented By: BETINA Morphine Sulfate (Morphine Sulfate 2 Mg/Ml Cartridge) 1 mg IVPUSH Q4H PRN; Protocol PRN Reason: Pain/SOB Last Admin: 08/30/21 13:56 Dose: 1 mg Documented By: BETINA Nystatin (Nystatin Oral Susp 500,000 Unit/5 Ml Oral.Susp) 400,000 unit BUCCAL QID [facility]; Protocol Last Admin: 08/30/21 13:10 Dose: 400,000 unit Documented By: BETINA Omeprazole (Omeprazole 20 Mg Capsule.) 20 mg PO DAILY@0630 [facility] Last Admin: 08/30/21 05:48 Dose: 20 mg Documented By: ADOLFO Ondansetron HCl (Ondansetron Hcl 4 Mg/2 Ml Vial) 4 mg IVPUSH Q8H PRN PRN Reason: Nausea and Vomiting Oxybutynin Chloride (Oxybutynin Chloride Er 5 Mg Tab.Er.24) 10 mg PO DAILY [facility] Last Admin: 08/30/21 08:08 Dose: 10 mg Documented By: BETINA Pharmacy Consult (Consult Rx Perform Med Rec) 1 each MISCELLANE ONCE PRN PRN Reason: Consult order Pharmacy Consult (Consult Rx Vancomycin Dosing) 1 each MISCELLANE DAILY PRN PRN Reason: Consult order Pharmacy Consult (Consult Rx Vancomycin Dosing) 1 each MISCELLANE DAILY PRN PRN Reason: Consult order Sodium Chloride (0.9 % Sodium Chloride Flush 3 Ml Syringe) 3 ml IVFLUSH QSHIFT [facility] Last Admin: 08/30/21 08:10 Dose: 3 ml Documented By: BETINA Labs CBC & Chem 7: 08/30/21 06:21 08/30/21 06:21 Labs: Laboratory Results - last 24 hr 08/30/21 08/30/21 08/30/21 06:21 06:21 06:21 MCV 80.9 MCH 25.5 L MCHC 31.6 RDW 16.1 H Plt Count 335 MPV 10.2 Absolute Nucleated RBC 0.000 Nucleated RBC % (auto) 0.0 Estim Creat Clear Calc 66.6 Estimated GFR > 60 C-Reactive Protein 2.26 H Procalcitonin 0.17 Assessment and Plan (1) COVID-19 virus infection: Status: Acute Plan This is a 70-year-old female with history of hypertension, asthma, recent trip to [place] who presents to the emergency department with cough, muscle aches found to have COVID-19, pneumonia, rapid atrial fibrillation Acute respiratory failure with hypoxia Related to underlying COVID-19, pneumonia Slowly improving less shortness of breath Chest x-ray showed dense retrocardiac opacity and small left pleural effusion and streaky opacity at the right lung base Finish course of remdesivir, s/p IV Decadron x 5 d Continue IV antibiotics, supplemental oxygen as needed CRP and procalcitonin level improved significantantly sepsis secondary to staph aureus bacteremia Patient clinically feeling better less shortness of breath, no fevers no chills leukocytosis likely due to steroid question due to c.diff Case discussed with Dr. Ring will change IV Kefzol to IV nafcillin due to high risk for diarrhea and C diff with cephalosporin Repeat blood cultures 1/2 bottle positive for MSSA likely source skin versus lungs Follow echocardiogram Diarrhea resolved will check C diff empirically placed on Flagyl Atrial fibrillation with rapid ventricular response Received 2 doses of IV Cardizem in the ED, tachycardia improved continue Cardizem CD 120 mg daily continue Eliquis TSH, and magnesium within normal limits Oral thrush Significant discomfort s/p 1 dose of Diflucan/continue nystatin, likely related to antibiotics/Flovent will recommend to rinse mouth after steroid inhalers Elevated cardiac enzymes Troponin elevated around 100 but flat,Likely secondary to demand HTN d/c norvasc while on cardizem , stable BP Asthma Continue Flovent, albuterol, no acute exacerbation Mood continue lamotrigine, Wellbutrin DVT ppx - Eliquis code status - full code HCP - Krishna Will require ongoing inpatient hospitalization due to bacterial pneumonia, bacteremia requiring IV antibiotics. Quality Stroke Does the patient have a stroke diagnosis?: No VTE Prior VTE?: No VTE Risk Level:: Medical - moderate - high VTE Device Contraindication: N/A - Device Ordered VTE Drug Contraindication: N/A - Med Ordered
[2021-08-30] MEDS: Nafcillin Sodium 2 GM in 0.9 % Sodium Chloride 100 ML IV ×2 (17:42→20:23)
[2021-08-30] MEDS: lamoTRIgine 25 MG TABLET 50 MG PO (20:22)
[2021-08-31] VITALS (10 sets, daily range): BP systolic 123–136; BP diastolic 64–77; PULSE 102–126; RESP 17–20; TEMP 36.4–37.3; O2SAT 90–96
[2021-08-31] MEDS: Nafcillin Sodium 2 GM in 0.9 % Sodium Chloride 100 ML IV ×6 (01:15→20:25)
[2021-08-31] MEDS: metroNIDAZOLE 500 MG TABLET PO ×3 (01:15→16:50)
[2021-08-31] MEDS: 0.9 % Sodium Chloride Flush 3 ML SYRINGE IVFLUSH ×3 (01:15→20:26)
[2021-08-31] MEDS: Omeprazole 20 MG CAPSULE.DR PO (06:01)
[2021-08-31 06:47] LABS: Hematocrit 36.8 % (37.0-47.0); Hemoglobin 11.8 g/dl (12.0-16.0); Mean Corpuscular HGB Conc 32.1 g/dl (31.0-35.0); Mean Corpuscular Hemoglobin 26.1 pg (27.0-33.0); Mean Corpuscular Volume 81.4 fL (80.0-98.0); Mean Platelet Volume 9.3 fL (9.4-12.3); Platelet Count 415 X10*3/uL (160-400); Red Blood Count 4.52 X10*6/uL (4.20-5.50); Red Cell Distribution Width 16.1 % (11.0-16.0); White Blood Count 20.5 X10*3/uL (4.8-10.8)
[2021-08-31 07:49] LABS: Anion Gap 10 (12-20); Blood Urea Nitrogen 15 mg/dL (9-16); Calcium 8.2 mg/dL (8.4-10.2); Carbon Dioxide 31 mmol/L (22-29); Chloride 100 mmol/L (96-108); Creatinine Clr Calc Pharmacy 69.7; Estimated Glomerular Filt Rate > 60; Glucose Random 103 mg/dL (60-115); Sodium 137 mmol/L (135-145)
[2021-08-31] MEDS: Fluticasone Propionate 100 MCG BLST.W.DEV 2 PUFF INHALE ×2 (08:42→19:35)
[2021-08-31] MEDS: dilTIAZem HCL CD 120 MG CAP.ER.DEG PO (08:44)
[2021-08-31] MEDS: lamoTRIgine 100 MG TABLET 200 MG PO (08:45)
[2021-08-31] MEDS: Montelukast Sodium 10 MG TABLET PO (08:45)
[2021-08-31] MEDS: Apixaban 5 MG TABLET PO ×2 (08:46→20:25)
[2021-08-31] MEDS: buPROPion HCl XL 300 MG TAB.ER.24H PO (08:46)
[2021-08-31] MEDS: buPROPion HCl XL 150 MG TAB.ER.24H PO (08:46)
[2021-08-31] MEDS: Nystatin Oral Susp 500,000 UNIT/5 ML ORAL.SUSP 400000 UNIT BUCCAL (08:47)
[2021-08-31] MEDS: Benzonatate 100 MG CAPSULE PO ×3 (09:44→20:25)
[2021-08-31] MEDS: Fluconazole 100 MG TABLET PO (09:44)
[2021-08-31] MEDS: oxyCODONE HCl Immed Release 5 MG TABLET PO ×2 (09:45→20:36)
[2021-08-31] MEDS: Digoxin 0.5 MG/2 ML AMPUL 0.25 MG IVPUSH ×2 (11:05→15:35)
[2021-08-31] MEDS: Acetaminophen 325 MG TABLET 650 MG PO (13:02)
--- NOTE | 2021-08-31 14:38 | HO.PM.IMPN ---
Subjective Subjective Date of Service: 08/31/21 Interval History: Complaining of persistent sore throat, cough, tiredness, weakness, tele monitor showed atrial fibrillation with RVR, no fevers no chills, no other acute issues., no events overnight Review of Systems Review of Systems: Yes all other systems are reviewed and are negative Physical Exam Vital Signs: Vital Signs: Last Vital Signs Temp 99.0 F 08/31/21 12:00 Pulse 112 H 08/31/21 12:00 Resp 20 08/31/21 12:00 BP 123/69 08/31/21 12:00 Pulse Ox 95 08/31/21 12:00 O2 Del Method 08/31/21 12:00 O2 Flow Rate 2 08/31/21 12:00 BMI result Body Mass Index 28.0 Const: Other: General awake alert x3, sick, weak-looking Oral mucosa mild erythema, white coating resolved Neck? supple no JVD. CVS irregular rate rhythm, tachy Respiratory lungs left lung base crepitus, no respiratory distress, no wheeze Gastrointestinal abdomen soft, nontender, bowel sounds audible, no guarding , no rigidity. Extremities no edema. Neuro nonfocal ,moving all 4 extremity, speech clear. Skin no rash Psych appropriate affect Objective Data Active Medications Acetaminophen (Acetaminophen 325 Mg Tablet) 650 mg PO Q6H PRN PRN Reason: Pain, Mild (Pain Scale 1-3) Last Admin: 08/31/21 13:02 Dose: 650 mg Documented By: WILMAN Albuterol Sulfate (Albuterol Sulfate 90 Mcg 8 Gm Inhaler) 2 puff INHALE Q4H PRN PRN Reason: Shortness Of Breath Last Admin: 08/29/21 18:21 Dose: 2 puff Documented By: AMINATA Apixaban (Apixaban 5 Mg Tablet) 5 mg PO BID [facility] Last Admin: 08/31/21 08:46 Dose: 5 mg Documented By: WILMAN Benzonatate (Benzonatate 100 Mg Capsule) 100 mg PO TID [facility] Last Admin: 08/31/21 09:44 Dose: 100 mg Documented By: WILMAN Bupropion HCl (Bupropion Hcl Xl 300 Mg Tab.Er.24h) 300 mg PO DAILY [facility] Last Admin: 08/31/21 08:46 Dose: 300 mg Documented By: WILMAN Bupropion HCl (Bupropion Hcl Xl 150 Mg Tab.Er.24h) 150 mg PO DAILY [facility] Last Admin: 08/31/21 08:46 Dose: 150 mg Documented By: WILMAN Digoxin (Digoxin 0.5 Mg/2 Ml Ampul) 0.25 mg IVPUSH Q6H [facility] Stop: 08/31/21 16:01 Last Admin: 08/31/21 11:05 Dose: 0.25 mg Documented By: WILMAN Comments: dose late due to lack of access Diltiazem HCl (Diltiazem Hcl Cd 120 Mg Cap.Er.Deg) 120 mg PO DAILY [facility]; Protocol Last Admin: 08/31/21 08:44 Dose: 120 mg Documented By: WILMAN Docusate Sodium (Docusate Sodium 100 Mg Capsule) 100 mg PO DAILY PRN PRN Reason: Constipation Fluconazole (Fluconazole 100 Mg Tablet) 100 mg PO DAILY [facility] Last Admin: 08/31/21 09:44 Dose: 100 mg Documented By: WILMAN Fluticasone Propionate (Fluticasone Propionate 100 Mcg Blst.W.Dev) 2 puff INHALE RBID [facility] Last Admin: 08/31/21 08:42 Dose: 2 puff Documented By: NHI Nafcillin Sodium 2 gm/ Sodium (Chloride) 100 mls @ 200 mls/hr IV Q4H [facility] Last Infusion: 08/31/21 13:31 Dose: 0 mls/hr Documented By: WILMAN Lamotrigine (Lamotrigine 25 Mg Tablet) 50 mg PO BEDTIME [facility] Last Admin: 08/30/21 20:22 Dose: 50 mg Documented By: NINI Lamotrigine (Lamotrigine 100 Mg Tablet) 200 mg PO DAILY [facility] Last Admin: 08/31/21 08:45 Dose: 200 mg Documented By: WILMAN Metronidazole (Metronidazole 500 Mg Tablet) 500 mg PO Q8H [facility] Last Admin: 08/31/21 08:45 Dose: 500 mg Documented By: WILMAN Montelukast Sodium (Montelukast Sodium 10 Mg Tablet) 10 mg PO DAILY [facility] Last Admin: 08/31/21 08:45 Dose: 10 mg Documented By: WILMAN Multi-Ingred Medicated Throat [place] (Throat [place], Medicated 20 Ml Bottle) 1 spray MUCOUS MEM Q2H PRN PRN Reason: Sore Throat Omeprazole (Omeprazole 20 Mg Capsule.Dr) 20 mg PO DAILY@0630 [facility] Last Admin: 08/31/21 06:01 Dose: 20 mg Documented By: DEE Ondansetron HCl (Ondansetron Hcl 4 Mg/2 Ml Vial) 4 mg IVPUSH Q8H PRN PRN Reason: Nausea and Vomiting Oxybutynin Chloride (Oxybutynin Chloride Er 5 Mg Tab.Er.24) 10 mg PO DAILY [facility] Last Admin: 08/31/21 08:45 Dose: 10 mg Documented By: WILMAN Oxycodone HCl (Oxycodone Hcl Immed Release 5 Mg Tablet) 5 mg PO Q6H PRN PRN Reason: Pain, Moderate (Pain Scale 4-6 Last Admin: 08/31/21 09:45 Dose: 5 mg Documented By: WILMAN Pharmacy Consult (Consult Rx Perform Med Rec) 1 each MISCELLANE ONCE PRN PRN Reason: Consult order Pharmacy Consult (Consult Rx Vancomycin Dosing) 1 each MISCELLANE DAILY PRN PRN Reason: Consult order Pharmacy Consult (Consult Rx Vancomycin Dosing) 1 each MISCELLANE DAILY PRN PRN Reason: Consult order Sodium Chloride (0.9 % Sodium Chloride Flush 3 Ml Syringe) 3 ml IVFLUSH QSHIFT [facility] Last Admin: 08/31/21 09:44 Dose: Not Given Documented By: WILMAN Non-Admin Reason: No Access Labs CBC & Chem 7: 08/31/21 06:23 08/31/21 06:23 Labs: Laboratory Results - last 24 hr 08/31/21 08/31/21 06:23 06:23 MCV 81.4 MCH 26.1 L MCHC 32.1 RDW 16.1 H Plt Count 415 H MPV 9.3 L Absolute Nucleated RBC 0.000 Nucleated RBC % (auto) 0.0 Anion Gap 10 L Estim Creat Clear Calc 69.7 Estimated GFR > 60 Random Glucose 103 Calcium 8.2 L Assessment and Plan (1) COVID-19 virus infection: Status: Acute Plan This is a 70-year-old female with history of hypertension, asthma, recent trip to [place] who presents to the emergency department with cough, muscle aches found to have COVID-19, pneumonia, rapid atrial fibrillation Acute respiratory failure with hypoxia Related to underlying COVID-19, pneumonia Slowly improving persistent mild shortness of breath cough weakness Chest x-ray showed dense retrocardiac opacity and small left pleural effusion and streaky opacity at the right lung base Finish course of remdesivir, s/p IV Decadron x 5 d, will add scheduled cough medication Continue IV antibiotics, supplemental oxygen as needed CRP and procalcitonin level improved significantantly sepsis secondary to staph aureus bacteremia no fevers no chills leukocytosis likely due to steroid question due to c.diff Case discussed with Dr. Ring will change IV Kefzol to IV nafcillin day 2, due to high risk for diarrhea and C diff with cephalosporin Repeat blood cultures 1/2 bottle positive for MSSA likely source skin versus lungs echocardiogram showed EF 60-65%, indeterminate diastolic function, no vegetation seen follow cbc Diarrhea resolved , no further episode stool not collected for C diff, empirically placed on Flagyl day 2 Atrial fibrillation with rapid ventricular response Received 2 doses of IV Cardizem in the ED, on Cardizem CD 120 mg daily , will give digoxin x2 doses since off blood pressure continue Eliquis TSH, and magnesium within normal limits Oral thrush Significant discomfort likely related to antibiotics/Flovent will recommend to rinse mouth after steroid inhalers, will place on Diflucan, will add Chloraseptic spray Elevated cardiac enzymes Troponin elevated around 100 but flat,Likely secondary to demand HTN d/c norvasc while on cardizem , stable BP Asthma Continue Flovent, albuterol, no acute exacerbation Mood continue lamotrigine, Wellbutrin DVT ppx - Eliquis code status - full code HCP - Krishna Will require ongoing inpatient hospitalization due to bacterial pneumonia, bacteremia requiring IV antibiotics. Quality Stroke Does the patient have a stroke diagnosis?: No VTE Prior VTE?: No VTE Risk Level:: Medical - moderate - high VTE Device Contraindication: N/A - Device Ordered VTE Drug Contraindication: N/A - Med Ordered
[2021-08-31] MEDS: lamoTRIgine 25 MG TABLET 50 MG PO (20:25)
[2021-09-01] VITALS (8 sets, daily range): BP systolic 100–139; BP diastolic 61–74; PULSE 93–111; RESP 16–20; TEMP 36.4–37.4; O2SAT 92–96
[2021-09-01] MEDS: guaiFENesin DM 100/10/5 ML 5 ML SYRUP PO ×2 (00:51→09:22)
[2021-09-01] MEDS: Nafcillin Sodium 2 GM in 0.9 % Sodium Chloride 100 ML IV ×6 (00:51→22:54)
[2021-09-01] MEDS: Omeprazole 20 MG CAPSULE.DR PO (06:02)
[2021-09-01] MEDS: Fluticasone Propionate 100 MCG BLST.W.DEV 2 PUFF INHALE ×2 (08:01→20:02)
[2021-09-01] MEDS: Albuterol Sulfate 90 MCG 8 GM INHALER 2 PUFF INHALE ×4 (08:32→20:05)
[2021-09-01 08:35] LABS: Creatinine Clr Calc Pharmacy 77.9; Estimated Glomerular Filt Rate > 60
[2021-09-01] MEDS: 0.9 % Sodium Chloride Flush 3 ML SYRINGE IVFLUSH ×3 (09:22→22:57)
[2021-09-01] MEDS: buPROPion HCl XL 300 MG TAB.ER.24H PO (09:23)
[2021-09-01] MEDS: Apixaban 5 MG TABLET PO ×2 (09:23→22:56)
[2021-09-01] MEDS: buPROPion HCl XL 150 MG TAB.ER.24H PO (09:23)
[2021-09-01] MEDS: Fluconazole 100 MG TABLET PO (09:23)
[2021-09-01] MEDS: Benzonatate 100 MG CAPSULE PO ×3 (09:24→22:55)
[2021-09-01] MEDS: Montelukast Sodium 10 MG TABLET PO (09:24)
[2021-09-01] MEDS: lamoTRIgine 100 MG TABLET 200 MG PO (09:24)
[2021-09-01] MEDS: dilTIAZem HCL CD 180 MG CAP.ER.24H PO (09:29)
[2021-09-01] MEDS: metroNIDAZOLE 500 MG TABLET PO ×2 (10:08→17:24)
--- NOTE | 2021-09-01 13:39 | HO.PM.IMPN ---
Subjective Subjective Date of Service: 09/01/21 Interval History: Complaining of persistent dry cough, complaining of being tired, fatigued, less sore throat denies chest pain no palpitation, tele monitor showed AFib with RVR, denies abdominal pain, no diarrhea no urinary symptoms. Review of Systems Review of Systems: Yes all other systems are reviewed and are negative Physical Exam Vital Signs: Vital Signs: Last Vital Signs Temp 98.9 F 09/01/21 12:00 Pulse 107 H 09/01/21 12:00 Resp 19 09/01/21 12:00 BP 136/62 09/01/21 12:00 Pulse Ox 96 09/01/21 12:00 O2 Del Method 09/01/21 12:00 O2 Flow Rate 3 09/01/21 12:00 BMI result Body Mass Index 28.0 Const: Other: General awake alert x3, sick -looking Oral tongue no erythema, moist, white coating resolved Neck? supple no JVD. CVS irregular rate rhythm, tachy Respiratory lungs left lung base crepitus, diminished bases, no respiratory distress, no wheeze Gastrointestinal abdomen soft, nontender, bowel sounds audible, no guarding , no rigidity. Extremities no edema. Neuro nonfocal ,moving all 4 extremity, speech clear. Skin no rash Psych appropriate affect Objective Data Active Medications Acetaminophen (Acetaminophen 325 Mg Tablet) 650 mg PO Q6H PRN PRN Reason: Pain, Mild (Pain Scale 1-3) Last Admin: 08/31/21 13:02 Dose: 650 mg Documented By: WILMAN Al Hydroxide/Mg Hydroxide (Magnesium Hydrox/Alum Hydrox 30 Ml Oral.Susp) 30 ml PO Q4H PRN PRN Reason: Heartburn Albuterol Sulfate (Albuterol Sulfate 90 Mcg 8 Gm Inhaler) 2 puff INHALE Q4H PRN PRN Reason: Shortness Of Breath Last Admin: 09/01/21 13:03 Dose: 2 puff Documented By: WILMAN Apixaban (Apixaban 5 Mg Tablet) 5 mg PO BID [facility] Last Admin: 09/01/21 09:23 Dose: 5 mg Documented By: WILMAN Benzonatate (Benzonatate 100 Mg Capsule) 100 mg PO TID PRN PRN Reason: cough Bupropion HCl (Bupropion Hcl Xl 300 Mg Tab.Er.24h) 300 mg PO DAILY [facility] Last Admin: 09/01/21 09:23 Dose: 300 mg Documented By: WILMAN Bupropion HCl (Bupropion Hcl Xl 150 Mg Tab.Er.24h) 150 mg PO DAILY [facility] Last Admin: 09/01/21 09:23 Dose: 150 mg Documented By: WILMAN Diltiazem HCl (Diltiazem Hcl Cd 180 Mg Cap.Er.24h) 180 mg PO DAILY [facility]; Protocol Last Admin: 09/01/21 09:29 Dose: 180 mg Documented By: WILMAN Docusate Sodium (Docusate Sodium 100 Mg Capsule) 100 mg PO DAILY PRN PRN Reason: Constipation Fluconazole (Fluconazole 100 Mg Tablet) 100 mg PO DAILY [facility] Last Admin: 09/01/21 09:23 Dose: 100 mg Documented By: WILMAN Fluticasone Propionate (Fluticasone Propionate 100 Mcg Blst.W.Dev) 2 puff INHALE RBID [facility] Last Admin: 09/01/21 08:01 Dose: 2 puff Documented By: NHI Guaifenesin/Dextromethorphan (Guaifenesin Dm 200/20/10 Ml 10 Ml Syrup) 10 ml PO Q6H [facility] Nafcillin Sodium 2 gm/ Sodium (Chloride) 100 mls @ 200 mls/hr IV Q4H [facility] Last Admin: 09/01/21 12:59 Dose: 200 mls/hr Documented By: WILMAN Lamotrigine (Lamotrigine 25 Mg Tablet) 50 mg PO BEDTIME [facility] Last Admin: 08/31/21 20:25 Dose: 50 mg Documented By: YENY Lamotrigine (Lamotrigine 100 Mg Tablet) 200 mg PO DAILY [facility] Last Admin: 09/01/21 09:24 Dose: 200 mg Documented By: WILMAN Metronidazole (Metronidazole 500 Mg Tablet) 500 mg PO Q8H [facility] Last Admin: 09/01/21 10:08 Dose: 500 mg Documented By: WILMAN Montelukast Sodium (Montelukast Sodium 10 Mg Tablet) 10 mg PO DAILY [facility] Last Admin: 09/01/21 09:24 Dose: 10 mg Documented By: WILMAN Multi-Ingred Medicated Throat [place] (Throat [place], Medicated 20 Ml Bottle) 1 spray MUCOUS MEM Q2H PRN PRN Reason: Sore Throat Last Admin: 08/31/21 15:36 Dose: 1 spray Documented By: WILMAN Omeprazole (Omeprazole 20 Mg Capsule.) 20 mg PO DAILY@0630 [facility] Last Admin: 09/01/21 06:02 Dose: 20 mg Documented By: DEE Ondansetron HCl (Ondansetron Hcl 4 Mg/2 Ml Vial) 4 mg IVPUSH Q8H PRN PRN Reason: Nausea and Vomiting Oxybutynin Chloride (Oxybutynin Chloride Er 5 Mg Tab.Er.24) 10 mg PO DAILY [facility] Last Admin: 09/01/21 09:23 Dose: 10 mg Documented By: WILMAN Oxycodone HCl (Oxycodone Hcl Immed Release 5 Mg Tablet) 5 mg PO Q6H PRN PRN Reason: Pain, Moderate (Pain Scale 4-6 Last Admin: 08/31/21 20:36 Dose: 5 mg Documented By: YENY Pharmacy Consult (Consult Rx Perform Med Rec) 1 each MISCELLANE ONCE PRN PRN Reason: Consult order Pharmacy Consult (Consult Rx Vancomycin Dosing) 1 each MISCELLANE DAILY PRN PRN Reason: Consult order Sodium Chloride (0.9 % Sodium Chloride Flush 3 Ml Syringe) 3 ml IVFLUSH QSHIFT [facility] Last Admin: 09/01/21 09:22 Dose: 3 ml Documented By: WILMAN Labs CBC & Chem 7: 08/31/21 06:23 09/01/21 07:34 Labs: Laboratory Results - last 24 hr 09/01/21 07:34 Estim Creat Clear Calc 77.9 Estimated GFR > 60 Microbiology Microbiology Results: Microbiology 08/27/21 09:44 Blood Culture - Final Blood - Venous No growth after 5 days. Assessment and Plan (1) COVID-19 virus infection: Status: Acute Plan This is a 70-year-old female with history of hypertension, asthma, recent trip to [place] who presents to the emergency department with cough, muscle aches found to have COVID-19, pneumonia, rapid atrial fibrillation Acute respiratory failure with hypoxia Related to underlying COVID-19, pneumonia Slowly improving persistent cough, mild shortness of breath and weakness Chest x-ray showed dense retrocardiac opacity and small left pleural effusion and streaky opacity at the right lung base Finish course of remdesivir, s/p IV Decadron x 5 d, cont. cough medication Continue IV antibiotics, supplemental oxygen as needed CRP and procalcitonin level improved significantantly will repeat cxr for f/u/IS/as needed albuterol sepsis secondary to staph aureus bacteremia no fevers no chills leukocytosis likely due to steroid question due to c.diff Case discussed with Dr. Ring will change IV Kefzol to IV nafcillin day 2, due to high risk for diarrhea and C diff with cephalosporin Repeat blood cultures 1/2 bottle positive for MSSA likely source skin versus lungs echocardiogram showed EF 60-65%, indeterminate diastolic function, no vegetation seen follow cbc Diarrhea resolved , no further episode stool not collected for C diff, empirically placed on Flagyl day 3 will DC Flagyl and WBC trends down and no further bouts of diarrhea Atrial fibrillation with rapid ventricular response Received 2 doses of IV Cardizem in the ED, on Cardizem CD 120 mg daily , will increase dose to 180 mg daily status post digoxin x2 doses continue Eliquis TSH, and magnesium within normal limits Oral thrush Significant discomfort likely related to antibiotics/Flovent will recommend to rinse mouth after steroid inhalers, on Diflucan, and Chloraseptic spray Elevated cardiac enzymes Troponin elevated around 100 but flat,Likely secondary to demand HTN d/c norvasc while on cardizem , stable BP Asthma Continue Flovent, albuterol, no acute exacerbation Mood continue lamotrigine, Wellbutrin DVT ppx - Eliquis GI prophylaxis with Prilosec add Maalox code status - full code HCP - Krishna Will require ongoing inpatient hospitalization due to bacterial pneumonia, bacteremia requiring IV antibiotics. Quality Stroke Does the patient have a stroke diagnosis?: No VTE Prior VTE?: No VTE Risk Level:: Medical - moderate - high VTE Device Contraindication: N/A - Device Ordered VTE Drug Contraindication: N/A - Med Ordered
[2021-09-01] MEDS: Magnesium Hydrox/Alum Hydrox 30 ML ORAL.SUSP PO (14:02)
[2021-09-01] MEDS: guaiFENesin DM 200/20/10 ML 10 ML SYRUP PO ×2 (14:18→22:54)
[2021-09-01] MEDS: ondansetron HCL 4 MG/2 ML VIAL IVPUSH (17:49)
[2021-09-01] MEDS: lamoTRIgine 25 MG TABLET 50 MG PO (22:55)
[2021-09-02] VITALS (8 sets, daily range): BP systolic 108–133; BP diastolic 68–88; PULSE 89–122; RESP 18–22; TEMP 36.8–37.2; O2SAT 92–96
[2021-09-02] MEDS: Nafcillin Sodium 2 GM in 0.9 % Sodium Chloride 100 ML IV ×6 (01:19→20:56)
[2021-09-02] MEDS: metroNIDAZOLE 500 MG TABLET PO ×3 (01:20→17:47)
[2021-09-02] MEDS: Omeprazole 20 MG CAPSULE.DR PO (05:09)
[2021-09-02 06:52] LABS: Creatinine Clr Calc Pharmacy 76.7; Estimated Glomerular Filt Rate > 60
[2021-09-02] MEDS: Fluticasone Propionate 100 MCG BLST.W.DEV 2 PUFF INHALE (08:20)
[2021-09-02] MEDS: Albuterol Sulfate 90 MCG 8 GM INHALER 2 PUFF INHALE ×2 (08:26→16:15)
[2021-09-02 08:47] LABS: Hematocrit 33.4 % (37.0-47.0); Hemoglobin 10.9 g/dl (12.0-16.0); Mean Corpuscular HGB Conc 32.6 g/dl (31.0-35.0); Mean Corpuscular Hemoglobin 26.8 pg (27.0-33.0); Mean Corpuscular Volume 82.1 fL (80.0-98.0); Mean Platelet Volume 9.1 fL (9.4-12.3); Platelet Count 477 X10*3/uL (160-400); Red Blood Count 4.07 X10*6/uL (4.20-5.50); Red Cell Distribution Width 16.8 % (11.0-16.0); White Blood Count 14.6 X10*3/uL (4.8-10.8)
[2021-09-02] MEDS: 0.9 % Sodium Chloride Flush 3 ML SYRINGE IVFLUSH ×2 (09:22→17:47)
[2021-09-02] MEDS: lamoTRIgine 100 MG TABLET 200 MG PO (09:22)
[2021-09-02] MEDS: Digoxin 0.125 MG TABLET PO (09:23)
[2021-09-02] MEDS: buPROPion HCl XL 300 MG TAB.ER.24H PO (09:23)
[2021-09-02] MEDS: dilTIAZem HCL CD 180 MG CAP.ER.24H PO (09:23)
[2021-09-02] MEDS: Montelukast Sodium 10 MG TABLET PO (09:23)
[2021-09-02] MEDS: Apixaban 5 MG TABLET PO ×2 (09:23→20:55)
[2021-09-02] MEDS: buPROPion HCl XL 150 MG TAB.ER.24H PO (09:23)
[2021-09-02] MEDS: Fluconazole 100 MG TABLET PO (09:23)
--- NOTE | 2021-09-02 11:48 | MHC.CM.PN ---
EMR REVIEWED, PER HOSPITALIST PT WILL NEED CHEST CT, IF CT SHOWS MUCOUS PLUGGING PT WILL NEED BRONCHOSCOPY, PT ALSO CONT'S TO NEED 4 WKS IV ABX ONCE BLOOD CULTURES CLEAR, ABX CHANGED FROM KEFZOL TO NAFCILLIN ON 08/30, [facility] FOLLOWING FOR D/C.
--- NOTE | 2021-09-02 12:27 | PM.CNPUL ---
History of Present Illness History of Present Illness Consult date: 09/02/21 Requesting physician: Destiny Jane Chief complaint: COVID 19/RAPID AFIB Narrative: 70-year-old lady, former 15 pack-year smoker, quit 1986, with underlying history of asthma in hypertension and recent international travel admitted on 08/24/2021 with cough, myalgias, AFib with RVR secondary to COVID-19 with MSSA pneumonia superinfection, now complicated by copious mucus production with almost complete opacification of the left lung. Oxygen requirements remained moderate at 3 L continuous flow. Patient continues on IV nafcillin and endorse slow improvement. Review of Systems Constitutional: Constitutional: Denies daytime sleepiness, Denies excessive sweating, Denies fatigue, Denies fever(s), Denies lethargy, Denies malaise, Denies night sweats, Denies snoring and Denies weight loss Eyes: Eyes: Denies blurry vision and Denies itchy eyes ENT: Denies nasal congestion, Denies post nasal drip, Denies sinus pain, Denies sinus pressure and Denies other ( Thrush) Cardiovascular: Cardiovascular: Denies chest pain, Denies pedal edema, Reports dyspnea, Denies orthopnea and Denies paroxysmal nocturnal dyspnea Respiratory: Respiratory: Denies cough, Denies hemoptysis, Denies excessive phlegm production, Reports dyspnea, Denies snoring and Denies wheezing Gastrointestinal: Gastrointestinal: Denies abdominal pain and Denies heartburn Musculoskeletal: Musculoskeletal: Denies myalgias, Denies arthralgias and Denies joint swelling Integumentary/Breasts: Skin/Breast: Denies rash Neurologic: Denies memory loss and Denies seizure-like activity Psychiatric: Psychiatric: Denies abnormal sleep pattern, Denies anxiety and Denies memory loss Endocrine: Endocrine: Denies excessive sweating, Denies fatigue and Denies heat intolerance Hematologic/Lymphatic: Hematologic/Lymphatic: Denies easy bruising Allergic/Immunologic: Allergic/Immunologic: Denies itchy eyes, Denies seasonal rhinorrhea and Denies wheezing PMFSH Past Medical History Medical History (Updated 09/02/21 @ 12:33 by Gerardo Coffey MD) Asthma Hypertension MSSA bacteremia UTI (urinary tract infection) Family History Family history: reviewed and not pertinent Surgical History Surgical History History of total left hip arthroplasty History of total right hip arthroplasty S/P laparoscopic sleeve gastrectomy Social History Social History Household Members: Spouse Household Members Other:: Danny Housing: House Do you presently have visiting nurse or other home services: No Alcohol intake: never Patient Tobacco Use Status: Former Tobacco user service: No 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al status: retired 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 Allergies Allergy/AdvReac Type Severity Reaction Status Date / Time No Known Allergies Allergy Verified 06/07/21 08:43 [No Known Allergies*] Active Medications: Current Medications Acetaminophen (Acetaminophen 325 Mg Tablet) 650 mg PO Q6H PRN PRN Reason: Pain, Mild (Pain Scale 1-3) Last Admin: 08/31/21 13:02 Dose: 650 mg Al Hydroxide/Mg Hydroxide (Magnesium Hydrox/Alum Hydrox 30 Ml Oral.Susp) 30 ml PO Q4H PRN PRN Reason: Heartburn Last Admin: 09/01/21 14:02 Dose: 30 ml Albuterol Sulfate (Albuterol Sulfate 90 Mcg 8 Gm Inhaler) 2 puff INHALE Q4H PRN PRN Reason: Shortness Of Breath Last Admin: 09/01/21 20:05 Dose: 2 puff Albuterol Sulfate (Albuterol Sulfate 90 Mcg 8 Gm Inhaler) 2 puff INHALE RQID [facility] Last Admin: 09/02/21 08:26 Dose: 2 puff Apixaban (Apixaban 5 Mg Tablet) 5 mg PO BID [facility] Last Admin: 09/02/21 09:23 Dose: 5 mg Benzonatate (Benzonatate 100 Mg Capsule) 100 mg PO TID PRN PRN Reason: cough Last Admin: 09/01/21 22:55 Dose: 100 mg Bupropion HCl (Bupropion Hcl Xl 300 Mg Tab.Er.24h) 300 mg PO DAILY [facility] Last Admin: 09/02/21 09:23 Dose: 300 mg Bupropion HCl (Bupropion Hcl Xl 150 Mg Tab.Er.24h) 150 mg PO DAILY [facility] Last Admin: 09/02/21 09:23 Dose: 150 mg Digoxin (Digoxin 0.125 Mg Tablet) 0.125 mg PO DAILY [facility] Last Admin: 09/02/21 09:23 Dose: 0.125 mg Diltiazem HCl (Diltiazem Hcl Cd 180 Mg Cap.Er.24h) 180 mg PO DAILY [facility]; Protocol Last Admin: 09/02/21 09:23 Dose: 180 mg Docusate Sodium (Docusate Sodium 100 Mg Capsule) 100 mg PO DAILY PRN PRN Reason: Constipation Fluconazole (Fluconazole 100 Mg Tablet) 100 mg PO DAILY [facility] Last Admin: 09/02/21 09:23 Dose: 100 mg Fluticasone Propionate (Fluticasone Propionate 100 Mcg Blst.W.Dev) 2 puff INHALE RBID [facility] Last Admin: 09/02/21 08:20 Dose: 2 puff Nafcillin Sodium 2 gm/ Sodium (Chloride) 100 mls @ 200 mls/hr IV Q4H [facility] Last Infusion: 09/02/21 10:19 Dose: Infused Lamotrigine (Lamotrigine 25 Mg Tablet) 50 mg PO BEDTIME [facility] Last Admin: 09/01/21 22:55 Dose: 50 mg Lamotrigine (Lamotrigine 100 Mg Tablet) 200 mg PO DAILY [facility] Last Admin: 09/02/21 09:22 Dose: 200 mg Metronidazole (Metronidazole 500 Mg Tablet) 500 mg PO Q8H [facility] Last Admin: 09/02/21 10:17 Dose: 500 mg Montelukast Sodium (Montelukast Sodium 10 Mg Tablet) 10 mg PO DAILY [facility] Last Admin: 09/02/21 09:23 Dose: 10 mg Multi-Ingred Medicated Throat [place] (Throat [place], Medicated 20 Ml Bottle) 1 spray MUCOUS MEM Q2H PRN PRN Reason: Sore Throat Last Admin: 08/31/21 15:36 Dose: 1 spray Omeprazole (Omeprazole 20 Mg Capsule.Dr) 20 mg PO DAILY@0630 [facility] Last Admin: 09/02/21 05:09 Dose: 20 mg Ondansetron HCl (Ondansetron Hcl 4 Mg/2 Ml Vial) 4 mg IVPUSH Q8H PRN PRN Reason: Nausea and Vomiting Last Admin: 09/01/21 17:49 Dose: 4 mg Oxybutynin Chloride (Oxybutynin Chloride Er 5 Mg Tab.Er.24) 10 mg PO DAILY [facility] Last Admin: 09/02/21 09:22 Dose: 10 mg Oxycodone HCl (Oxycodone Hcl Immed Release 5 Mg Tablet) 5 mg PO Q6H PRN PRN Reason: Pain, Moderate (Pain Scale 4-6 Last Admin: 08/31/21 20:36 Dose: 5 mg Pharmacy Consult (Consult Rx Perform Med Rec) 1 each MISCELLANE ONCE PRN PRN Reason: Consult order Pharmacy Consult (Consult Rx Vancomycin Dosing) 1 each MISCELLANE DAILY PRN PRN Reason: Consult order Sodium Chloride (0.9 % Sodium Chloride Flush 3 Ml Syringe) 3 ml IVFLUSH QSHIFT [facility] Last Admin: 09/02/21 09:22 Dose: 3 ml Home Medications Medication Instructions Recorded Confirmed Last Taken Type bupropion HCl 200 mg tablet,12 hr 200 mg PO BID 01/11/20 08/24/21 08/23/21 History sustained-release (Wellbutrin SR) albuterol sulfate 90 mcg/actuation 2 puff inhalation Q4-6H PRN 12/05/20 08/24/21 Unknown History aerosol inhaler Shortness Of Breath fluticasone propionate 110 2 puff inhalation BID 12/05/20 08/24/21 08/23/21 History mcg/actuation HFA aerosol inhaler (Flovent HFA) lamotrigine 200 mg tablet 200 mg PO DAILY 12/05/20 08/24/21 08/23/21 History montelukast 10 mg tablet 10 mg PO DAILY 12/05/20 08/24/21 08/23/21 History oxybutynin chloride 10 mg 10 mg PO DAILY 12/05/20 08/24/21 08/23/21 History tablet,extended release 24 hr amlodipine 2.5 mg tablet 2.5 mg PO DAILY 06/07/21 08/24/21 08/23/21 History celecoxib 200 mg capsule 200 mg PO DAILY 06/07/21 08/24/21 08/23/21 History lamotrigine 25 mg tablet 50 mg PO BEDTIME 06/07/21 08/24/21 08/23/21 History pantoprazole 40 mg tablet,delayed 40 mg PO DAILY@0630 08/24/21 08/24/21 08/23/21 History release Physical Exam Vital Signs: Vital Signs: Last Vital Signs Temp 98.7 F 09/02/21 11:09 Pulse 89 09/02/21 11:09 Resp 20 09/02/21 11:09 BP 108/71 09/02/21 11:09 Pulse Ox 92 09/02/21 11:09 O2 Del Method 09/02/21 11:09 O2 Flow Rate 3 09/02/21 11:09 BMI result Body Mass Index 28.0 Const: General: no acute distress and alert Nutritional Appearance: not obese Orientation/consciousness: Other orientation findings ( oriented) HEENT: Head: Yes atraumatic Mouth: no other ( thrush) Throat: No postnasal drainage Eyes: General: appearance normal, both eyes and all related structures Sclerae: sclerae normal EOM: EOMs intact bilaterally Neck: Neck: Yes supple Lymphatic: no lymphadenopathy noted Resp: Effort & Inspection: normal respiratory effort and no use of accessory muscles Auscultation: other (Poor left-sided air movement) Cardio: Rate: regular rate Rhythm: regular rhythm Heart sounds: no gallops, no murmurs and no rubs GI: Palpation (GI): Soft to palpation and Other GI palpation findings present ( nontender) Skin: General skin exam: other ( warm) Rashes: no rashes Extrem: General: No clubbing, No cyanosis and No edema Results Laboratory Findings CBC and BMP: 09/02/21 08:13 09/02/21 06:19 Abnormal lab findings: Abnormal Labs 08/24/21 08/24/21 08/24/21 07:43 09:24 09:24 WBC 13.7 H RBC Hgb 11.1 L Hct 35.0 L MCH 25.8 L RDW Plt Count MPV Immature Gran % (Auto) 3.0 H Neut % (Auto) 84.6 H Lymph % (Auto) 5.1 L Lymph # (Auto) 0.7 L Abs Immat Gran (auto) 0.41 H Absolute Neuts (auto) 11.6 H Sodium 133 L Carbon Dioxide Anion Gap BUN 28 H Random Glucose 117 H Calcium Ferritin Direct Bilirubin 0.6 H Troponin I High Sens C-Reactive Protein 23.68 H B-Natriuretic Peptide Total Protein 5.4 L Albumin 3.0 L D Nasal S. aureus Screen Vancomycin Trough Random Vancomycin COVID-19 ([facility]) Positive A 08/24/21 08/24/21 08/24/21 09:24 09:24 09:24 WBC RBC Hgb Hct MCH RDW Plt Count MPV Immature Gran % (Auto) Neut % (Auto) Lymph % (Auto) Lymph # (Auto) Abs Immat Gran (auto) Absolute Neuts (auto) Sodium Carbon Dioxide Anion Gap BUN Random Glucose Calcium Ferritin 308 H Direct Bilirubin Troponin I High Sens 100.1 H* C-Reactive Protein B-Natriuretic Peptide 392 H Total Protein Albumin Nasal S. aureus Screen Vancomycin Trough Random Vancomycin COVID-19 ([facility]) 08/24/21 08/25/21 08/25/21 12:27 04:36 04:37 WBC 11.5 H RBC 4.06 L Hgb 10.6 L Hct 33.2 L MCH 26.1 L RDW Plt Count MPV Immature Gran % (Auto) Neut % (Auto) Lymph % (Auto) Lymph # (Auto) Abs Immat Gran (auto) Absolute Neuts (auto) Sodium Carbon Dioxide Anion Gap 11 L BUN 18 H Random Glucose 127 H Calcium Ferritin Direct Bilirubin Troponin I High Sens 107.9 H* C-Reactive Protein B-Natriuretic Peptide Total Protein 4.7 L Albumin 2.6 L Nasal S. aureus Screen Vancomycin Trough Random Vancomycin COVID-19 ([facility]) 08/26/21 08/26/21 08/27/21 07:34 07:34 04:34 WBC 16.9 H RBC 3.92 L Hgb 10.2 L Hct 31.4 L MCH 26.0 L RDW Plt Count MPV Immature Gran % (Auto) 3.6 H Neut % (Auto) 87.2 H Lymph % (Auto) 5.4 L Lymph # (Auto) 0.9 L Abs Immat Gran (auto) 0.61 H Absolute Neuts (auto) 14.8 H Sodium Carbon Dioxide Anion Gap 9 L BUN 22 H Random Glucose 150 H Calcium Ferritin 297 H Direct Bilirubin Troponin I High Sens C-Reactive Protein 13.35 H B-Natriuretic Peptide Total Protein 4.9 L Albumin 2.6 L Nasal S. aureus Screen Vancomycin Trough Random Vancomycin 7.1 L COVID-19 ([facility]) 08/27/21 08/28/21 08/30/21 04:51 06:13 06:21 WBC 21.9 H RBC Hgb 11.9 L Hct MCH 25.5 L RDW 16.1 H Plt Count MPV Immature Gran % (Auto) Neut % (Auto) Lymph % (Auto) Lymph # (Auto) Abs Immat Gran (auto) Absolute Neuts (auto) Sodium Carbon Dioxide Anion Gap BUN Random Glucose Calcium Ferritin Direct Bilirubin Troponin I High Sens C-Reactive Protein B-Natriuretic Peptide Total Protein Albumin Nasal S. aureus Screen POSITIVE A Vancomycin Trough 9.5 L Random Vancomycin COVID-19 ([facility]) 08/30/21 08/31/21 08/31/21 06:21 06:23 06:23 WBC 20.5 H RBC Hgb 11.8 L Hct 36.8 L MCH 26.1 L RDW 16.1 H Plt Count 415 H MPV 9.3 L Immature Gran % (Auto) Neut % (Auto) Lymph % (Auto) Lymph # (Auto) Abs Immat Gran (auto) Absolute Neuts (auto) Sodium Carbon Dioxide 31 H Anion Gap 10 L BUN Random Glucose Calcium 8.2 L Ferritin Direct Bilirubin Troponin I High Sens C-Reactive Protein 2.26 H B-Natriuretic Peptide Total Protein Albumin Nasal S. aureus Screen Vancomycin Trough Random Vancomycin COVID-19 ([facility]) 09/02/21 08:13 WBC 14.6 H RBC 4.07 L Hgb 10.9 L Hct 33.4 L MCH 26.8 L RDW 16.8 H Plt Count 477 H MPV 9.1 L Immature Gran % (Auto) Neut % (Auto) Lymph % (Auto) Lymph # (Auto) Abs Immat Gran (auto) Absolute Neuts (auto) Sodium Carbon Dioxide Anion Gap BUN Random Glucose Calcium Ferritin Direct Bilirubin Troponin I High Sens C-Reactive Protein B-Natriuretic Peptide Total Protein Albumin Nasal S. aureus Screen Vancomycin Trough Random Vancomycin COVID-19 ([facility]) Microbiology: Microbiology 08/27/21 09:44 Blood - Venous Blood Culture - Final No growth after 5 days. 08/27/21 09:44 Blood - Venous Blood Culture - Final Staphylococcus aureus 08/25/21 01:04 Blood - Venous Blood Culture - Final Staphylococcus aureus 08/25/21 01:04 Blood - Venous Blood Culture - Final Staphylococcus aureus 08/24/21 09:24 Blood - Venous Blood Culture - Final Staphylococcus aureus 08/24/21 09:25 Blood - Venous Blood Culture - Final Staphylococcus aureus Assessment and Plan (1) Pneumonia: Status: Acute (2) Acute respiratory failure with hypoxia: Status: Acute Plan Impression: 70-year-old lady admitted with bacterial superinfection of underlying COVID, recovering slowly, hospital course complicated by copious mucus production with almost complete opacification of the left lung. Recommendations: Suggest starting on chest physiotherapy and cough assist. Will repeat CT chest. Continue nafcillin. Will continue to follow. Procedures Date of Service Date of Service: 09/02/21
--- NOTE | 2021-09-02 14:34 | HO.PM.IMPN ---
Subjective Subjective Date of Service: 09/02/21 Interval History: Persistent dry cough, unable to bring up phlegm complaining of shortness of breath generalized fatigue, denies chest pain, no palpitations no recurrent bout of fever chills, no nausea no vomiting, in atrial fibrillation heart rate in 1 teens, denies lightheadedness, dizziness. Review of Systems Review of Systems: Yes all other systems are reviewed and are negative Physical Exam Vital Signs: Vital Signs: Last Vital Signs Temp 98.7 F 09/02/21 11:09 Pulse 89 09/02/21 11:09 Resp 20 09/02/21 11:09 BP 108/71 09/02/21 11:09 Pulse Ox 92 09/02/21 11:09 O2 Del Method 09/02/21 11:09 O2 Flow Rate 3 09/02/21 11:09 BMI result Body Mass Index 28.0 Const: Other: General awake aler t x3, sick -lookin g Oral tongue no e rythema, moist, wh ite coating resolv ed Neck? supple no JVD. CVS irregula r rate rhythm, tac hy Respiratory nadeen gs left lung dimin ished breath sound s, no respiratory distress, no wheez e, clear right nadeen gs Gastrointestina l abdomen soft, no ntender, bowel elana nds audible, no gu arding , no rigidi ty. Extremities no edema. Neuro nonf ocal ,moving all 4 extremity, speech clear. Skin no ra sh Psych appropria te affect Objective Data Active Medications Acetaminophen (Acetaminophen 325 Mg Tablet) 650 mg PO Q6H PRN PRN Reason: Pain, Mild (Pain Scale 1-3) Last Admin: 08/31/21 13:02 Dose: 650 mg Documented By: WILMAN Al Hydroxide/Mg Hydroxide (Magnesium Hydrox/Alum Hydrox 30 Ml Oral.Susp) 30 ml PO Q4H PRN PRN Reason: Heartburn Last Admin: 09/01/21 14:02 Dose: 30 ml Documented By: WILMAN Albuterol Sulfate (Albuterol Sulfate 90 Mcg 8 Gm Inhaler) 2 puff INHALE Q4H PRN PRN Reason: Shortness Of Breath Last Admin: 09/01/21 20:05 Dose: 2 puff Documented By: MONY Albuterol Sulfate (Albuterol Sulfate 90 Mcg 8 Gm Inhaler) 2 puff INHALE RQID [facility] Last Admin: 09/02/21 08:26 Dose: 2 puff Documented By: DAYANA Apixaban (Apixaban 5 Mg Tablet) 5 mg PO BID [facility] Last Admin: 09/02/21 09:23 Dose: 5 mg Documented By: MARILOU Benzonatate (Benzonatate 100 Mg Capsule) 100 mg PO TID PRN PRN Reason: cough Last Admin: 09/01/21 22:55 Dose: 100 mg Documented By: RADHA Bupropion HCl (Bupropion Hcl Xl 300 Mg Tab.Er.24h) 300 mg PO DAILY [facility] Last Admin: 09/02/21 09:23 Dose: 300 mg Documented By: MARILOU Bupropion HCl (Bupropion Hcl Xl 150 Mg Tab.Er.24h) 150 mg PO DAILY [facility] Last Admin: 09/02/21 09:23 Dose: 150 mg Documented By: MARILOU Digoxin (Digoxin 0.125 Mg Tablet) 0.125 mg PO DAILY [facility] Last Admin: 09/02/21 09:23 Dose: 0.125 mg Documented By: MARILOU Diltiazem HCl (Diltiazem Hcl Cd 180 Mg Cap.Er.24h) 180 mg PO DAILY [facility]; Protocol Last Admin: 09/02/21 09:23 Dose: 180 mg Documented By: MARILOU Docusate Sodium (Docusate Sodium 100 Mg Capsule) 100 mg PO DAILY PRN PRN Reason: Constipation Fluconazole (Fluconazole 100 Mg Tablet) 100 mg PO DAILY [facility] Last Admin: 09/02/21 09:23 Dose: 100 mg Documented By: MARILOU Fluticasone Propionate (Fluticasone Propionate 100 Mcg Blst.W.Dev) 2 puff INHALE RBID [facility] Last Admin: 09/02/21 08:20 Dose: 2 puff Documented By: DAYANA Nafcillin Sodium 2 gm/ Sodium (Chloride) 100 mls @ 200 mls/hr IV Q4H [facility] Last Admin: 09/02/21 14:00 Dose: 200 mls/hr Documented By: MARILOU Lamotrigine (Lamotrigine 25 Mg Tablet) 50 mg PO BEDTIME [facility] Last Admin: 09/01/21 22:55 Dose: 50 mg Documented By: RADHA Lamotrigine (Lamotrigine 100 Mg Tablet) 200 mg PO DAILY [facility] Last Admin: 09/02/21 09:22 Dose: 200 mg Documented By: MARILOU Metronidazole (Metronidazole 500 Mg Tablet) 500 mg PO Q8H [facility] Last Admin: 09/02/21 10:17 Dose: 500 mg Documented By: MARILOU Montelukast Sodium (Montelukast Sodium 10 Mg Tablet) 10 mg PO DAILY [facility] Last Admin: 09/02/21 09:23 Dose: 10 mg Documented By: MARILOU Multi-Ingred Medicated Throat [place] (Throat [place], Medicated 20 Ml Bottle) 1 spray MUCOUS MEM Q2H PRN PRN Reason: Sore Throat Last Admin: 08/31/21 15:36 Dose: 1 spray Documented By: WILMAN Omeprazole (Omeprazole 20 Mg Capsule.Dr) 20 mg PO DAILY@0630 [facility] Last Admin: 09/02/21 05:09 Dose: 20 mg Documented By: RADHA Ondansetron HCl (Ondansetron Hcl 4 Mg/2 Ml Vial) 4 mg IVPUSH Q8H PRN PRN Reason: Nausea and Vomiting Last Admin: 09/01/21 17:49 Dose: 4 mg Documented By: WILMAN Oxybutynin Chloride (Oxybutynin Chloride Er 5 Mg Tab.Er.24) 10 mg PO DAILY [facility] Last Admin: 09/02/21 09:22 Dose: 10 mg Documented By: MARILOU Oxycodone HCl (Oxycodone Hcl Immed Release 5 Mg Tablet) 5 mg PO Q6H PRN PRN Reason: Pain, Moderate (Pain Scale 4-6 Last Admin: 08/31/21 20:36 Dose: 5 mg Documented By: YENY Pharmacy Consult (Consult Rx Perform Med Rec) 1 each MISCELLANE ONCE PRN PRN Reason: Consult order Pharmacy Consult (Consult Rx Vancomycin Dosing) 1 each MISCELLANE DAILY PRN PRN Reason: Consult order Sodium Chloride (0.9 % Sodium Chloride Flush 3 Ml Syringe) 3 ml IVFLUSH QSHIFT [facility] Last Admin: 09/02/21 09:22 Dose: 3 ml Documented By: MARILOU Labs CBC & Chem 7: 09/02/21 08:13 09/02/21 06:19 Labs: Laboratory Results - last 24 hr 09/02/21 09/02/21 06:19 08:13 MCV 82.1 MCH 26.8 L MCHC 32.6 RDW 16.8 H Plt Count 477 H MPV 9.1 L Absolute Nucleated RBC 0.000 Nucleated RBC % (auto) 0.0 Estim Creat Clear Calc 76.7 Estimated GFR > 60 Microbiology Microbiology Results: Microbiology 08/27/21 09:44 Blood Culture - Final Blood - Venous No growth after 5 days. Assessment and Plan (1) COVID-19 virus infection: Status: Acute Plan This is a 70-year-old female with history of hypertension, asthma, recent trip to [place] who presents to the emergency department with cough, muscle aches found to have COVID-19, pneumonia, rapid atrial fibrillation Acute respiratory failure with hypoxia Related to underlying COVID-19, pneumonia Persistent dry cough, mild shortness of breath and weakness Repeat Chest x-ray this a.m. showed left lung completely wiped out Finish course of remdesivir, s/p IV Decadron x 5 d, cont. cough medication Obtain pulmonology consultation Dr. Coffey recommend chest PT cough assist and repeat CT chest, noted to have mucus plugging will need bronchoscopy CRP and procalcitonin level improved significantantly Place on Hycodan cough syrup sepsis secondary to staph aureus bacteremia no fevers no chills WBC trending down Continue IV nafcillin day 2, due to high risk for diarrhea and C diff with cephalosporin Repeat blood cultures 1/2 bottle positive for MSSA likely source skin versus lungs echocardiogram showed EF 60-65%, indeterminate diastolic function, no vegetation seen follow cbc Diarrhea resolved , no further episode stool not collected for C diff, empirically placed on Flagyl day 4 will DC Flagyl if WBC trends down and no further bouts of diarrhea Atrial fibrillation with rapid ventricular response Received 2 doses of IV Cardizem in the ED, on Cardizem CD 180 mg daily , status post digoxin x2 doses will continue digoxin 0.125 mg daily continue Eliquis TSH, and magnesium within normal limits Oral thrush Significant discomfort likely related to antibiotics/Flovent will recommend to rinse mouth after steroid inhalers, on Diflucan, and Chloraseptic spray Elevated cardiac enzymes Troponin elevated around 100 but flat,Likely secondary to demand HTN d/c norvasc while on cardizem , stable BP Asthma Continue Flovent, albuterol, no acute exacerbation Mood continue lamotrigine, Wellbutrin DVT ppx - Eliquis GI prophylaxis with Prilosec add Maalox code status - full code HCP - Krishna Will require ongoing inpatient hospitalization due to bacterial pneumonia, bacteremia requiring IV antibiotics and persistent symptoms of cough weakness. Quality Stroke Does the patient have a stroke diagnosis?: No VTE Prior VTE?: No VTE Risk Level:: Medical - moderate - high VTE Device Contraindication: N/A - Device Ordered VTE Drug Contraindication: N/A - Med Ordered
[2021-09-02] MEDS: Acetaminophen 325 MG TABLET 650 MG PO (15:58)
[2021-09-02] MEDS: lamoTRIgine 25 MG TABLET 50 MG PO (20:55)
[2021-09-03] VITALS (9 sets, daily range): BP systolic 109–130; BP diastolic 64–82; PULSE 101–118; RESP 16–20; TEMP 36.1–36.9; O2SAT 91–98
[2021-09-03] MEDS: metroNIDAZOLE 500 MG TABLET PO ×2 (00:46→10:20)
[2021-09-03] MEDS: Nafcillin Sodium 2 GM in 0.9 % Sodium Chloride 100 ML IV ×6 (00:46→22:06)
[2021-09-03] MEDS: 0.9 % Sodium Chloride Flush 3 ML SYRINGE IVFLUSH ×4 (01:06→22:07)
[2021-09-03] MEDS: Acetaminophen 325 MG TABLET 650 MG PO (01:07)
[2021-09-03] MEDS: Omeprazole 20 MG CAPSULE.DR PO (04:59)
[2021-09-03 06:25] LABS: Creatinine Clr Calc Pharmacy 75.4; Estimated Glomerular Filt Rate > 60
[2021-09-03] MEDS: Fluticasone Propionate 100 MCG BLST.W.DEV 2 PUFF INHALE ×2 (07:59→19:32)
[2021-09-03] MEDS: Albuterol Sulfate 90 MCG 8 GM INHALER 2 PUFF INHALE ×3 (07:59→15:46)
--- NOTE | 2021-09-03 09:08 | P.CDIC_ITS ---
CDI Concurrent Query Documentation Clarification: PHYSICIAN'S DOCUMENTATION REQUEST Date of Query: 09/03/21 09 Patient Name: Shilpa Hartman Admit Date: 08/24/21 Dear Doctor, A review of the medical record indicates additional documentation may be needed. Please review below and update the documentation accordingly. Clinical Indicators: Risk Factors/Clinical Indicators/Treatments PN 09/02 - Atrial fibrillation with RVR Received 2 doses of IV Cardizem in ED. Continue Eliquis. If possible, please provide further specificity regarding atrial fibrillation, such as: * Paroxysmal atrial fibrillation: terminates spontaneously or with intervention within 7 days of onset. * Persistent atrial fibrillation: episodes of continuous AF that last more than 7 days and do not self-terminate. * Long lasting persistent atrial fibrillation: episodes of continuous AF that last more than 12 months, * Chronic or Permanent atrial fibrillation: when a decision has been made to accept the presence of AF and there is no further attempt to restore or maintain sinus rhythm. * Other (please specify) * Unable to determine Use of terms such as suspected, likely, concern for, or probable (associated with a specific diagnosis that is being evaluated, monitored, or treated as if it exists) are acceptable and can be coded in the inpatient setting, when documented at the time of discharge. Thank you, Barb Fleming [facility], [facility] Extension: [phone] Please use your independent medical judgment in providing your response. THIS QUERY IS PART OF THE PERMANENT MEDICAL RECORD Provider Response: Other Other Diagnosis: New onset atrial fibrillation triggered by viral infection
[2021-09-03] MEDS: buPROPion HCl XL 300 MG TAB.ER.24H PO (09:50)
[2021-09-03] MEDS: Fluconazole 100 MG TABLET PO (09:50)
[2021-09-03] MEDS: buPROPion HCl XL 150 MG TAB.ER.24H PO (09:50)
[2021-09-03] MEDS: lamoTRIgine 100 MG TABLET 200 MG PO (09:50)
[2021-09-03] MEDS: Montelukast Sodium 10 MG TABLET PO (09:50)
[2021-09-03] MEDS: Digoxin 0.125 MG TABLET PO (09:51)
[2021-09-03] MEDS: dilTIAZem HCL CD 180 MG CAP.ER.24H PO (09:52)
--- NOTE | 2021-09-03 11:26 | P.PNPL_ITS ---
Subjective Subjective Date of Service: 09/03/21 Interval history: Continues with slow improvement. Results of CT chest reviewed. Objective Data Labs CBC & Chem 7: 09/02/21 08:13 09/03/21 05:52 Labs: Laboratory Results - last 24 hr 09/03/21 05:52 Creatinine 0.61 Estim Creat Clear Calc 75.4 Estimated GFR > 60 Microbiology Microbiology Results: Microbiology 09/02/21 08:13 Blood - Venous Blood Culture - Preliminary No growth after 24 hours. 09/02/21 08:22 Blood - Venous Blood Culture - Preliminary No growth after 24 hours. 08/27/21 09:44 Blood - Venous Blood Culture - Final No growth after 5 days. 08/27/21 09:44 Blood - Venous Blood Culture - Final Staphylococcus aureus 08/25/21 01:04 Blood - Venous Blood Culture - Final Staphylococcus aureus 08/25/21 01:04 Blood - Venous Blood Culture - Final Staphylococcus aureus 08/24/21 09:24 Blood - Venous Blood Culture - Final Staphylococcus aureus 08/24/21 09:25 Blood - Venous Blood Culture - Final Staphylococcus aureus Review of Systems Cardiovascular: Reports dyspnea on exertion Respiratory: Reports cough, Denies excessive phlegm production and Reports dyspnea on exertion Physical Exam Vital Signs: Vital Signs: Last Vital Signs Temp 97.0 F 09/03/21 07:38 Pulse 105 H 09/03/21 07:59 Resp 20 09/03/21 07:59 BP 109/64 09/03/21 07:38 Pulse Ox 94 09/03/21 07:38 O2 Del Method 09/03/21 07:38 O2 Flow Rate 2 09/03/21 07:38 BMI result Body Mass Index 28.0 Const: General: no acute distress, alert and awake Eyes: Sclerae: sclerae normal EOM: EOMs intact bilaterally Neck: Neck: Yes no lymphadenopathy, Yes trachea midline and Yes supple Resp: Effort & Inspection: normal respiratory effort and no respiratory distress Auscultation: other ( Poor air movement on the left-sided) Cardio: Rate: regular rate Rhythm: regular rhythm Heart sounds: no gallops, no murmurs and no rubs GI: Palpation (GI): Soft to palpation and Other GI palpation findings present ( Nontender) Auscultation: normal bowel sounds Extrem: General: Yes no pedal edema, No clubbing and No cyanosis Procedures Date of Service Date of Service: 09/03/21 Assessment and Plan Assessment and plan (1) Acute respiratory failure with hypoxia: Status: Acute (2) Pneumonia: Status: Acute (3) COVID-19 virus infection: Status: Acute (4) Pleural effusion: Status: Acute Plan Impression: 70-year-old lady admitted with bacterial superinfection of underly ing COVID, recovering slowly, hospital course complicated by copious mucus production with almost complete opacification of the left lung by large left- sided effusion with partial loculation noted CT scan. Recommendations: Continue with chest physiotherapy and cough assist. Will hold anticoagulation chest tube placement to more. Will order pleural fluid studies. Time Spent With Patient Time: Total time spent is greater than 50% in coordination of care (as documented) at patient's floor/unit and/or counseling patient: Progress Note: Quality Stroke Does the patient have a stroke diagnosis?: No
[2021-09-03] MEDS: Mag&Al/Sim/Diphenhyd/Lidocaine 10 ML ORAL.SUSP PO ×3 (13:14→22:06)
--- NOTE | 2021-09-03 13:50 | HO.PM.IMPN ---
Subjective Subjective Date of Service: 09/03/21 Interval History: Complaining of sore throat, persistent dry cough and shortness of breath had a rough night but slightly better this morning, denies fever chills, stable oxygenation 95% on 3 L, no diarrhea. Review of Systems Review of Systems: Yes all other systems are reviewed and are negative Physical Exam Vital Signs: Vital Signs: Last Vital Signs Temp 97.7 F 09/03/21 11:56 Pulse 101 H 09/03/21 12:22 Resp 16 09/03/21 12:22 BP 116/82 09/03/21 11:56 Pulse Ox 95 09/03/21 11:56 O2 Del Method 09/03/21 11:56 O2 Flow Rate 2 09/03/21 11:56 BMI result Body Mass Index 28.0 Const: Other: General awake alert x3, sick -looking Oral tongue small ulcer left side mid tongue, white coating resolved, no tonsils no erythema Neck? supple no JVD. CVS irregular rate rhythm, tachy Respiratory diminished air entry left lung, no respiratory distress, no wheeze Gastrointestinal abdomen soft, nontender, bowel sounds audible, no guarding , no rigidity. Extremities no edema. Neuro nonfocal ,moving all 4 extremity, speech clear. Skin no rash Psych appropriate affect/anxious Objective Data Active Medications Acetaminophen (Acetaminophen 325 Mg Tablet) 650 mg PO Q6H PRN PRN Reason: Pain, Mild (Pain Scale 1-3) Last Admin: 09/03/21 01:07 Dose: 650 mg Documented By: SONIDO Al Hydroxide/Mg Hydroxide (Magnesium Hydrox/Alum Hydrox 30 Ml Oral.Susp) 30 ml PO Q4H PRN PRN Reason: Heartburn Last Admin: 09/01/21 14:02 Dose: 30 ml Documented By: WILMAN Albuterol Sulfate (Albuterol Sulfate 90 Mcg 8 Gm Inhaler) 2 puff INHALE Q4H PRN PRN Reason: Shortness Of Breath Last Admin: 09/01/21 20:05 Dose: 2 puff Documented By: OMNY Albuterol Sulfate (Albuterol Sulfate 90 Mcg 8 Gm Inhaler) 2 puff INHALE RQID JAKY Last Admin: 09/03/21 12:15 Dose: 2 puff Documented By: TUAN Benzonatate (Benzonatate 100 Mg Capsule) 100 mg PO TID PRN PRN Reason: cough Last Admin: 09/01/21 22:55 Dose: 100 mg Documented By: MARJANTEKR Bupropion HCl (Bupropion Hcl Xl 300 Mg Tab.Er.24h) 300 mg PO DAILY [facility] Last Admin: 09/03/21 09:50 Dose: 300 mg Documented By: JUMA Bupropion HCl (Bupropion Hcl Xl 150 Mg Tab.Er.24h) 150 mg PO DAILY [facility] Last Admin: 09/03/21 09:50 Dose: 150 mg Documented By: JUMA Digoxin (Digoxin 0.125 Mg Tablet) 0.125 mg PO DAILY [facility] Last Admin: 09/03/21 09:51 Dose: 0.125 mg Documented By: JUMA Diltiazem HCl (Diltiazem Hcl Cd 180 Mg Cap.Er.24h) 180 mg PO DAILY [facility]; Protocol Last Admin: 09/03/21 09:52 Dose: 180 mg Documented By: JUMA Docusate Sodium (Docusate Sodium 100 Mg Capsule) 100 mg PO DAILY PRN PRN Reason: Constipation Fluconazole (Fluconazole 100 Mg Tablet) 100 mg PO DAILY [facility] Last Admin: 09/03/21 09:50 Dose: 100 mg Documented By: JUMA Fluticasone Propionate (Fluticasone Propionate 100 Mcg Blst.W.Dev) 2 puff INHALE RBID [facility] Last Admin: 09/03/21 07:59 Dose: 2 puff Documented By: DOROTEO Hydrocodone Bit/Homatropine Methylb (Hydrocodone/Homat 5/1.5/5 Ml 5 Ml Syrup) 5 ml PO Q6H PRN PRN Reason: Cough Nafcillin Sodium 2 gm/ Sodium (Chloride) 100 mls @ 200 mls/hr IV Q4H [facility] Last Admin: 09/03/21 13:14 Dose: 200 mls/hr Documented By: JUMA Lamotrigine (Lamotrigine 25 Mg Tablet) 50 mg PO BEDTIME [facility] Last Admin: 09/02/21 20:55 Dose: 50 mg Documented By: DOBROB Lamotrigine (Lamotrigine 100 Mg Tablet) 200 mg PO DAILY [facility] Last Admin: 09/03/21 09:50 Dose: 200 mg Documented By: JUMA Lidocaine/Diphenhydr/Alum/Mg/Simeth (Mag&Al/Sim/Diphenhyd/Lidocaine 10 Ml Oral.Susp) 10 ml PO Q6H [facility]; Protocol Last Admin: 09/03/21 13:14 Dose: 10 ml Documented By: JUMA Montelukast Sodium (Montelukast Sodium 10 Mg Tablet) 10 mg PO DAILY [facility] Last Admin: 09/03/21 09:50 Dose: 10 mg Documented By: JUMA Multi-Ingred Medicated Throat [place] (Throat [place], Medicated 20 Ml Bottle) 1 spray MUCOUS MEM Q2H PRN PRN Reason: Sore Throat Last Admin: 08/31/21 15:36 Dose: 1 spray Documented By: WILMAN Omeprazole (Omeprazole 20 Mg Capsule.Dr) 20 mg PO DAILY@0630 [facility] Last Admin: 09/03/21 04:59 Dose: 20 mg Documented By: SONIDO Ondansetron HCl (Ondansetron Hcl 4 Mg/2 Ml Vial) 4 mg IVPUSH Q8H PRN PRN Reason: Nausea and Vomiting Last Admin: 09/01/21 17:49 Dose: 4 mg Documented By: WILMAN Oxybutynin Chloride (Oxybutynin Chloride Er 5 Mg Tab.Er.24) 10 mg PO DAILY [facility] Last Admin: 09/03/21 09:54 Dose: 10 mg Documented By: JUMA Oxycodone HCl (Oxycodone Hcl Immed Release 5 Mg Tablet) 5 mg PO Q6H PRN PRN Reason: Pain, Moderate (Pain Scale 4-6 Last Admin: 08/31/21 20:36 Dose: 5 mg Documented By: YENY Pharmacy Consult (Consult Rx Perform Med Rec) 1 each MISCELLANE ONCE PRN PRN Reason: Consult order Sodium Chloride (0.9 % Sodium Chloride Flush 3 Ml Syringe) 3 ml IVFLUSH QSHIFT [facility] Last Admin: 09/03/21 09:49 Dose: 3 ml Documented By: JUMA Labs CBC & Chem 7: 09/02/21 08:13 09/03/21 05:52 Labs: Laboratory Results - last 24 hr 09/03/21 05:52 Estim Creat Clear Calc 75.4 Estimated GFR > 60 Microbiology Microbiology Results: Microbiology 09/02/21 08:13 Blood Culture - Preliminary Blood - Venous No growth after 24 hours. 09/02/21 08:22 Blood Culture - Preliminary Blood - Venous No growth after 24 hours. Assessment and Plan (1) COVID-19 virus infection: Status: Acute Plan This is a 70-year-old female with history of hypertension, asthma, recent trip to [place] who presents to the emergency department with cough, muscle aches found to have COVID-19, pneumonia, rapid atrial fibrillation Acute respiratory failure with hypoxia Related to underlying COVID-19, pneumonia Persistent dry cough, shortness of breath and weakness CTA chest showed no PE, elevated D-dimer likely due to COVID Repeat Chest x-ray 09/02 showed left lung completely wiped out, CT chest 09/02 evening showed large left-sided effusion with partial loculation and improvement in left lung collapse s/p iv remdesivir, s/p IV Decadron x 5 d Continue chest PT w cough assist, continue cough medication CRP and procalcitonin level improved significantantly Case discussed with Dr. Coffey he recommend chest tube placement to be done tomorrow by IR since patient on Eliquis Discussed treatment plan with patient and her at bedside sepsis secondary to staph aureus bacteremia no fevers no chills WBC trending down Continue IV nafcillin, Kefzol discontinue , due to high risk for diarrhea and C diff with cephalosporin Repeat blood cultures 1/2 bottle positive for MSSA likely source skin versus lungs echocardiogram showed EF 60-65%, indeterminate diastolic function, no vegetation seen follow cbc, repeat blood cultures 09/02 shows no growth Diarrhea resolved , no further episode stool not collected for C diff, empirically placed on Flagyl day 5 will DC Flagyl New onset Atrial fibrillation with rapid ventricular response triggered by viral infection Received 2 doses of IV Cardizem in the ED, on Cardizem CD 180 mg daily , status post digoxin x2 doses continue digoxin 0.125 mg daily continue Eliquis TSH, and magnesium within normal limits Oral thrush Significant discomfort likely related to antibiotics/Flovent will recommend to rinse mouth after steroid inhalers, on Diflucan, and Chloraseptic spray Apthous stomatitis will place on Magic mouthwash swish and swallow Elevated cardiac enzymes Troponin elevated around 100 but flat,Likely secondary to demand HTN d/c norvasc while on cardizem , stable BP Asthma Continue Flovent, albuterol, no acute exacerbation Mood continue lamotrigine, Wellbutrin DVT ppx - DC Eliquis in anticipation of chest tube placement will place on compression boots GI prophylaxis with Prilosec add Maalox code status - full code HCP - Krishna case discussed with them at bedside Will require ongoing inpatient hospitalization due to bacterial pneumonia, bacteremia requiring IV antibiotics and large left pleural effusion schedule for chest tube placement Quality Stroke Does the patient have a stroke diagnosis?: No VTE Prior VTE?: No VTE Risk Level:: Medical - moderate - high VTE Device Contraindication: N/A - Device Ordered VTE Drug Contraindication: N/A - Med Ordered
[2021-09-03] MEDS: Benzonatate 100 MG CAPSULE PO (17:12)
[2021-09-03] MEDS: lamoTRIgine 25 MG TABLET 50 MG PO (22:05)
[2021-09-04] VITALS (7 sets, daily range): BP systolic 118–152; BP diastolic 64–77; PULSE 72–112; RESP 16–20; TEMP 36.4–36.8; O2SAT 94–98
[2021-09-04] MEDS: Nafcillin Sodium 2 GM in 0.9 % Sodium Chloride 100 ML IV ×6 (03:03→22:49)
[2021-09-04 05:36] LABS: Creatinine Clr Calc Pharmacy 68.6; Estimated Glomerular Filt Rate > 60
[2021-09-04 05:40] LABS: Anion Gap 9 (12-20); Blood Urea Nitrogen 7 mg/dL (9-16); Calcium 7.9 mg/dL (8.4-10.2); Carbon Dioxide 31 mmol/L (22-29); Chloride 102 mmol/L (96-108); Creatinine Clr Calc Pharmacy 65.7; Estimated Glomerular Filt Rate > 60; Glucose Random 89 mg/dL (60-115); Magnesium 2.2 mg/dL (1.6-2.6); Sodium 139 mmol/L (135-145)
[2021-09-04] MEDS: Mag&Al/Sim/Diphenhyd/Lidocaine 10 ML ORAL.SUSP PO ×4 (06:10→22:49)
[2021-09-04] MEDS: Omeprazole 20 MG CAPSULE.DR PO (06:10)
--- NOTE | 2021-09-04 06:22 | PM.EVENT ---
Event Note Date of Service: 09/04/21 Event Note: Patient had 18 beats of V-tach. Asymptomatic. Labs done showed Mag of 2.2 and potassium 3.0, will replete
[2021-09-04] MEDS: Potassium Chloride Packet 20 MEQ PACKET 40 MEQ PO ×2 (07:41→17:10)
[2021-09-04] MEDS: Digoxin 0.125 MG TABLET PO (07:41)
[2021-09-04] MEDS: lamoTRIgine 100 MG TABLET 200 MG PO (07:42)
[2021-09-04] MEDS: Fluconazole 100 MG TABLET PO (07:43)
[2021-09-04] MEDS: buPROPion HCl XL 300 MG TAB.ER.24H PO (07:43)
[2021-09-04] MEDS: 0.9 % Sodium Chloride Flush 3 ML SYRINGE IVFLUSH ×3 (07:43→22:49)
[2021-09-04] MEDS: buPROPion HCl XL 150 MG TAB.ER.24H PO (07:43)
[2021-09-04] MEDS: Montelukast Sodium 10 MG TABLET PO (07:43)
[2021-09-04] MEDS: dilTIAZem HCL CD 180 MG CAP.ER.24H PO (07:43)
[2021-09-04] MEDS: Fluticasone Propionate 100 MCG BLST.W.DEV 2 PUFF INHALE ×2 (08:45→18:59)
[2021-09-04] MEDS: Albuterol Sulfate 90 MCG 8 GM INHALER 2 PUFF INHALE ×3 (08:45→18:59)
--- NOTE | 2021-09-04 10:33 | P.CDIC_ITS ---
CDI Concurrent Query Documentation Clarification: PHYSICIAN'S DOCUMENTATION REQUEST Date of Query: 09/04/21 1034 Patient Name: Shilpa Hartman Admit Date: 08/24/21 Dear Doctor, Please review the following and provide your response in the progress notes. Clinical Indicators: The diagnosis of asthma was documented in the record on [enter date]. Additional clinical indicators from the record include: Risk Factors/Clinical Indicators/Treatments Progress notes: Assessment/plan: Asthma, no exacerbation. Continue Flovent, Albuterol. Based on the above, please clarify in the Progress Notes further specificity regarding the type and acuity of the asthma: Specifics: Type: * Mild intermittent - less than 2x/week * Mild persistent - more than 2x/week but not daily * Moderate persistent - daily and may restrict physical activity * Severe persistent - throughout the day with frequent attacks, limiting activities * Exercise induced * Other ? please specify * Unable to determine Use of terms such as suspected, likely, concern for, or probable (associated with a specific diagnosis that is being evaluated, monitored, or treated as if it exists) are acceptable and can be coded in the inpatient setting, when documented at the time of discharge. Thank you, Barb Fleming [facility], CDIS Extension: [phone] Please use your independent medical judgment in providing your response. THIS QUERY IS PART OF THE PERMANENT MEDICAL RECORD Provider Response: Other Other Diagnosis: mild persistent
--- NOTE | 2021-09-04 11:38 | HO.PM.IMPN ---
Subjective Subjective Date of Service: 09/04/21 Interval History: feeling little better this morning, was scheduled to undergo chest tube placement today but IR declined the procedure since needs to be off Eliquis times 48 hours, events from last night noted patient had 18 beats of V-tach she remained asymptomatic and was noted to have low potassium of 3, patient denies nausea, vomiting, diarrhea, has poor appetite. complaining of persistent oral pain, shortness of breath and dry cough, no fevers no chills, no chest pain, no palpitation. Review of Systems Review of Systems: Yes all other systems are reviewed and are negative Physical Exam Vital Signs: Vital Signs: Last Vital Signs Temp 97.6 F 09/04/21 07:34 Pulse 101 H 09/04/21 08:45 Resp 20 09/04/21 08:45 BP 141/77 H 09/04/21 07:34 Pulse Ox 96 09/04/21 07:34 O2 Del Method 09/04/21 07:34 O2 Flow Rate 2.5 09/04/21 07:34 BMI result Body Mass Index 28.0 Const: Other: General awake alert x3, sick -looking Oral tongue small ulcer left side mid tongue, white coating resolved, no tonsillar erythema Neck? supple no JVD. CVS irregular rate rhythm, tachy Respiratory diminished air entry left lung > right, no respiratory distress, no wheeze Gastrointestinal abdomen soft, nontender, bowel sounds audible, no guarding , no rigidity. Extremities no edema. Neuro nonfocal ,moving all 4 extremity, speech clear. Skin no rash Psych appropriate affect/anxious Objective Data Active Medications Acetaminophen (Acetaminophen 325 Mg Tablet) 650 mg PO Q6H PRN PRN Reason: Pain, Mild (Pain Scale 1-3) Last Admin: 09/03/21 01:07 Dose: 650 mg Documented By: SONIDO Al Hydroxide/Mg Hydroxide (Magnesium Hydrox/Alum Hydrox 30 Ml Oral.Susp) 30 ml PO Q4H PRN PRN Reason: Heartburn Last Admin: 09/01/21 14:02 Dose: 30 ml Documented By: WILMAN Albuterol Sulfate (Albuterol Sulfate 90 Mcg 8 Gm Inhaler) 2 puff INHALE Q4H PRN PRN Reason: Shortness Of Breath Last Admin: 09/01/21 20:05 Dose: 2 puff Documented By: MONY Albuterol Sulfate (Albuterol Sulfate 90 Mcg 8 Gm Inhaler) 2 puff INHALE RQID [facility] Last Admin: 09/04/21 11:26 Dose: Not Given Documented By: NHI Non-Admin Reason: Patient Asleep Benzonatate (Benzonatate 100 Mg Capsule) 100 mg PO TID PRN PRN Reason: cough Last Admin: 09/03/21 17:12 Dose: 100 mg Documented By: JUMA Bupropion HCl (Bupropion Hcl Xl 300 Mg Tab.Er.24h) 300 mg PO DAILY [facility] Last Admin: 09/04/21 07:43 Dose: 300 mg Documented By: PIPPA Bupropion HCl (Bupropion Hcl Xl 150 Mg Tab.Er.24h) 150 mg PO DAILY [facility] Last Admin: 09/04/21 07:43 Dose: 150 mg Documented By: PIPPA Digoxin (Digoxin 0.125 Mg Tablet) 0.125 mg PO DAILY [facility] Last Admin: 09/04/21 07:41 Dose: 0.125 mg Documented By: PIPPA Diltiazem HCl (Diltiazem Hcl Cd 180 Mg Cap.Er.24h) 180 mg PO DAILY [facility]; Protocol Last Admin: 09/04/21 07:43 Dose: 180 mg Documented By: PIPPA Docusate Sodium (Docusate Sodium 100 Mg Capsule) 100 mg PO DAILY PRN PRN Reason: Constipation Fluconazole (Fluconazole 100 Mg Tablet) 100 mg PO DAILY [facility] Last Admin: 09/04/21 07:43 Dose: 100 mg Documented By: PIPPA Fluticasone Propionate (Fluticasone Propionate 100 Mcg Blst.W.Dev) 2 puff INHALE RBID [facility] Last Admin: 09/04/21 08:45 Dose: 2 puff Documented By: NHI Hydrocodone Bit/Homatropine Methylb (Hydrocodone/Homat 5/1.5/5 Ml 5 Ml Syrup) 5 ml PO Q6H PRN PRN Reason: Cough Nafcillin Sodium 2 gm/ Sodium (Chloride) 100 mls @ 200 mls/hr IV Q4H [facility] Last Admin: 09/04/21 10:16 Dose: 200 mls/hr Documented By: PIPPA Lamotrigine (Lamotrigine 25 Mg Tablet) 50 mg PO BEDTIME [facility] Last Admin: 09/03/21 22:05 Dose: 50 mg Documented By: KATLYN Lamotrigine (Lamotrigine 100 Mg Tablet) 200 mg PO DAILY [facility] Last Admin: 09/04/21 07:42 Dose: 200 mg Documented By: PIPPA Lidocaine/Diphenhydr/Alum/Mg/Simeth (Mag&Al/Sim/Diphenhyd/Lidocaine 10 Ml Oral.Susp) 10 ml PO Q6H [facility]; Protocol Last Admin: 09/04/21 06:10 Dose: 10 ml Documented By: KATLYN Montelukast Sodium (Montelukast Sodium 10 Mg Tablet) 10 mg PO DAILY [facility] Last Admin: 09/04/21 07:43 Dose: 10 mg Documented By: PIPPA Multi-Ingred Medicated Throat [place] (Throat [place], Medicated 20 Ml Bottle) 1 spray MUCOUS MEM Q2H PRN PRN Reason: Sore Throat Last Admin: 08/31/21 15:36 Dose: 1 spray Documented By: WILMAN Omeprazole (Omeprazole 20 Mg Capsule.Dr) 20 mg PO DAILY@0630 [facility] Last Admin: 09/04/21 06:10 Dose: 20 mg Documented By: KATLYN Ondansetron HCl (Ondansetron Hcl 4 Mg/2 Ml Vial) 4 mg IVPUSH Q8H PRN PRN Reason: Nausea and Vomiting Last Admin: 09/01/21 17:49 Dose: 4 mg Documented By: WILMAN Oxybutynin Chloride (Oxybutynin Chloride Er 5 Mg Tab.Er.24) 10 mg PO DAILY [facility] Last Admin: 09/04/21 07:42 Dose: 10 mg Documented By: PIPPA Oxycodone HCl (Oxycodone Hcl Immed Release 5 Mg Tablet) 5 mg PO Q6H PRN PRN Reason: Pain, Moderate (Pain Scale 4-6 Last Admin: 08/31/21 20:36 Dose: 5 mg Documented By: YENY Pharmacy Consult (Consult Rx Perform Med Rec) 1 each MISCELLANE ONCE PRN PRN Reason: Consult order Sodium Chloride (0.9 % Sodium Chloride Flush 3 Ml Syringe) 3 ml IVFLUSH QSHIFT [facility] Last Admin: 09/04/21 07:43 Dose: 3 ml Documented By: PIPPA Labs CBC & Chem 7: 09/02/21 08:13 09/04/21 05:01 Labs: Laboratory Results - last 24 hr 09/04/21 09/04/21 05:01 05:01 Anion Gap 9 L Estim Creat Clear Calc 68.6 65.7 Estimated GFR > 60 > 60 Random Glucose 89 Calcium 7.9 L Magnesium 2.2 Microbiology Microbiology Results: Microbiology 09/02/21 08:13 Blood Culture - Preliminary Blood - Venous No growth after 48 hours. 09/02/21 08:22 Blood Culture - Preliminary Blood - Venous No growth after 48 hours. Assessment and Plan (1) COVID-19 virus infection: Status: Acute Plan This is a 70-year-old female with history of hypertension, asthma, recent trip to [place] who presents to the emergency department with cough, muscle aches found to have COVID-19, pneumonia, rapid atrial fibrillation Acute respiratory failure with hypoxia Related to underlying COVID-19, and pneumonia Persistent dry cough, shortness of breath and weakness initial CTA chest showed no PE, elevated D-dimer likely due to COVID Repeat Chest x-ray 09/02 showed left lung completely wiped out, CT chest 09/02 evening showed large left-sided effusion with partial loculation and improvement in left lung collapse s/p iv remdesivir, s/p IV Decadron x 5 d Continue chest PT w cough assist, continue cough medication CRP and procalcitonin level improved significantantly Case discussed with Dr. Coffey he recommend chest tube placement to be done tomorrow by IR since patient was on Eliquis, pleural fluid studies ordered by [employer] Discussed treatment plan with patient and her at bedside sepsis secondary to staph aureus bacteremia no fevers no chills WBC trending down Continue IV nafcillin x 4 weeks , Kefzol discontinued , due to high risk for diarrhea and C diff with cephalosporin Repeat blood cultures 08/27 -02/10 bottle positive for MSSA likely source skin versus lungs repeat blood cultures 09/02 shows no growth echocardiogram showed EF 60-65%, indeterminate diastolic function, no vegetation seen follow CBC Diarrhea resolved , no further episode stool not collected for C diff, empirically placed on Flagyl , subsequently discontinued. Nonsustained V-tach patient remained asymptomatic continue tele monitor replete potassium keep potassium around 4 and magnesium at 2 hypokalemia will replete and repeat labs New onset Atrial fibrillation with rapid ventricular response triggered by viral infection Received 2 doses of IV Cardizem in the ED, on Cardizem CD 180 mg daily , status post digoxin x2 doses continue digoxin 0.125 mg daily Eliquis on hold for procedure, resume after procedure as per IR recommendation TSH, and magnesium within normal limits Oral thrush less discomfort likely related to antibiotics/Flovent will recommend to rinse mouth after steroid inhalers, on Diflucan day 08/18, and Chloraseptic spray Apthous stomatitis on Magic mouthwash swish and swallow day 03/21-14 Elevated cardiac enzymes Troponin elevated around 100 but flat,Likely secondary to demand HTN d/c norvasc while on cardizem , stable BP Asthma intermittent persistent,Continue Flovent, albuterol, no acute exacerbation Mood continue lamotrigine, Wellbutrin DVT ppx - DC Eliquis in anticipation of chest tube placement , on compression boots GI prophylaxis with Prilosec add Maalox code status - full code Krishna case discussed with them at bedside Will require ongoing inpatient hospitalization due to bacterial pneumonia, bacteremia requiring IV antibiotics and large left pleural effusion schedule for chest tube placement at am. Quality Stroke Does the patient have a stroke diagnosis?: No VTE Prior VTE?: No VTE Risk Level:: Medical - moderate - high VTE Device Contraindication: N/A - Device Ordered VTE Drug Contraindication: N/A - Med Ordered
--- NOTE | 2021-09-04 12:20 | MHC.CM.PN ---
Female 70 DX PNA Afib. She is scheduled to have a C.T. inserted today. DP home with IV ABX. family will provide transportation. CM will follow to assess for change in discharge needs. All needs will be addressed prior to discharge.
[2021-09-04 12:58] LABS: INTERNATIONAL NORM RATIO 1.3 (0.9-1.1); Prothrombin Time 15.5 SEC (10.0-13.1)
[2021-09-04 13:00] LABS: Partial Thromboplastin Time 41.6 SEC (24.1-38.0)
[2021-09-04] MEDS: Benzonatate 100 MG CAPSULE PO ×2 (14:02→22:49)
[2021-09-04] MEDS: lamoTRIgine 25 MG TABLET 50 MG PO (22:49)
[2021-09-05] VITALS (9 sets, daily range): BP systolic 108–160; BP diastolic 70–100; PULSE 83–120; RESP 16–20; TEMP 36.4–37.2; O2SAT 91–98
[2021-09-05] MEDS: Nafcillin Sodium 2 GM in 0.9 % Sodium Chloride 100 ML IV ×5 (01:15→21:06)
[2021-09-05] MEDS: Mag&Al/Sim/Diphenhyd/Lidocaine 10 ML ORAL.SUSP PO ×4 (06:17→22:39)
[2021-09-05 06:52] LABS: Hematocrit 32.5 % (37.0-47.0); Hemoglobin 10.2 g/dl (12.0-16.0); Mean Corpuscular HGB Conc 31.4 g/dl (31.0-35.0); Mean Corpuscular Volume 82.7 fL (80.0-98.0); Platelet Count 466 X10*3/uL (160-400); Red Blood Count 3.93 X10*6/uL (4.20-5.50); Red Cell Distribution Width 17.2 % (11.0-16.0); White Blood Count 9.4 X10*3/uL (4.8-10.8)
[2021-09-05 07:21] LABS: Anion Gap 8 (12-20); Blood Urea Nitrogen 5 mg/dL (9-16); Calcium 7.7 mg/dL (8.4-10.2); Carbon Dioxide 28 mmol/L (22-29); Chloride 104 mmol/L (96-108); Creatinine Clr Calc Pharmacy 76.7; Estimated Glomerular Filt Rate > 60; Glucose Random 86 mg/dL (60-115); Potassium 3.8 mmol/L (3.3-5.1); Sodium 136 mmol/L (135-145)
[2021-09-05] MEDS: Albuterol Sulfate 90 MCG 8 GM INHALER 2 PUFF INHALE ×2 (08:57→19:34)
[2021-09-05] MEDS: Fluticasone Propionate 100 MCG BLST.W.DEV 2 PUFF INHALE ×2 (08:57→19:33)
[2021-09-05] MEDS: 0.9 % Sodium Chloride Flush 3 ML SYRINGE IVFLUSH ×2 (11:15→17:22)
[2021-09-05] MEDS: dilTIAZem HCL CD 180 MG CAP.ER.24H PO (11:16)
[2021-09-05] MEDS: Digoxin 0.125 MG TABLET PO (11:17)
--- NOTE | 2021-09-05 12:35 | P.PNIM_ITS ---
Subjective Subjective Date of Service: 09/05/21 Interval History: seen and examined this morning Follow-up for pneumonia/COVID-19 /AFib Feeling generalized weakness, intermittent dry cough. Breathing about the same plan for chest tube placement today Review of Systems Review of Systems: Yes all other systems are reviewed and are negative Constitutional Constitutional: Denies chills and Denies fever(s) Cardiovascular Cardiovascular: Denies chest pain, Denies palpitations and Reports dyspnea Respiratory Respiratory: Reports cough and Reports dyspnea Gastrointestinal Gastrointestinal: Denies abdominal pain Endocrine Endocrine: Denies palpitations Physical Exam Vital Signs: Vital Signs: Last Vital Signs Temp 98.7 F 09/05/21 11:39 Pulse 85 09/05/21 11:39 Resp 18 09/05/21 11:39 BP 140/87 H 09/05/21 11:39 Pulse Ox 95 09/05/21 11:39 O2 Del Method 09/05/21 11:39 O2 Flow Rate 3 09/05/21 11:39 BMI result Body Mass Index 28.0 Const: General: cooperative, comfortable, alert, awake and ill appearing Nutritional Appearance: thin Orientation/consciousness: patient oriented x3 Resp: Effort & Inspection: normal respiratory effort and able to speak in complete sentences Auscultation: diminished lung sounds Cardio: Rate: regular rate Heart sounds: S1 normal heart sound present and S2 normal heart sound present GI: Inspection: No distended Palpation (GI): Soft to palpation and nontender Neuro: General: patient oriented x3 and CN's II-XI intact bilaterally Extrem: General: Yes no pedal edema Objective Data Active Medications Acetaminophen (Acetaminophen 325 Mg Tablet) 650 mg PO Q6H PRN PRN Reason: Pain, Mild (Pain Scale 1-3) Last Admin: 09/03/21 01:07 Dose: 650 mg Documented By: SONIDO Al Hydroxide/Mg Hydroxide (Magnesium Hydrox/Alum Hydrox 30 Ml Oral.Susp) 30 ml PO Q4H PRN PRN Reason: Heartburn Last Admin: 09/01/21 14:02 Dose: 30 ml Documented By: WILMAN Albuterol Sulfate (Albuterol Sulfate 90 Mcg 8 Gm Inhaler) 2 puff INHALE Q4H PRN PRN Reason: Shortness Of Breath Last Admin: 09/01/21 20:05 Dose: 2 puff Documented By: MONY Albuterol Sulfate (Albuterol Sulfate 90 Mcg 8 Gm Inhaler) 2 puff INHALE RQID [facility] Last Admin: 09/05/21 12:17 Dose: Not Given Documented By: NHI Non-Admin Reason: Patient Asleep Benzonatate (Benzonatate 100 Mg Capsule) 100 mg PO TID PRN PRN Reason: cough Last Admin: 09/04/21 22:49 Dose: 100 mg Documented By: YENY Bupropion HCl (Bupropion Hcl Xl 300 Mg Tab.Er.24h) 300 mg PO DAILY [facility] Last Admin: 09/05/21 12:32 Dose: Not Given Documented By: KERRY Non-Admin Reason: NPO Bupropion HCl (Bupropion Hcl Xl 150 Mg Tab.Er.24h) 150 mg PO DAILY [facility] Last Admin: 09/05/21 12:32 Dose: Not Given Documented By: KERRY Non-Admin Reason: NPO Digoxin (Digoxin 0.125 Mg Tablet) 0.125 mg PO DAILY [facility] Last Admin: 09/05/21 11:17 Dose: 0.125 mg Documented By: KERRY Diltiazem HCl (Diltiazem Hcl Cd 180 Mg Cap.Er.24h) 180 mg PO DAILY [facility]; Protocol Last Admin: 09/05/21 11:16 Dose: 180 mg Documented By: KERRY Docusate Sodium (Docusate Sodium 100 Mg Capsule) 100 mg PO DAILY PRN PRN Reason: Constipation Fluconazole (Fluconazole 100 Mg Tablet) 100 mg PO DAILY [facility] Last Admin: 09/05/21 12:32 Dose: Not Given Documented By: KERRY Non-Admin Reason: NPO Fluticasone Propionate (Fluticasone Propionate 100 Mcg Blst.W.Dev) 2 puff INHALE RBID [facility] Last Admin: 09/05/21 08:57 Dose: 2 puff Documented By: NHI Hydrocodone Bit/Homatropine Methylb (Hydrocodone/Homat 5/1.5/5 Ml 5 Ml Syrup) 5 ml PO Q6H PRN PRN Reason: Cough Nafcillin Sodium 2 gm/ Sodium (Chloride) 100 mls @ 200 mls/hr IV Q4H [facility] Last Infusion: 09/05/21 12:33 Dose: 0 mls/hr Documented By: KERRY Lamotrigine (Lamotrigine 25 Mg Tablet) 50 mg PO BEDTIME [facility] Last Admin: 09/04/21 22:49 Dose: 50 mg Documented By: YENY Lamotrigine (Lamotrigine 100 Mg Tablet) 200 mg PO DAILY [facility] Last Admin: 09/05/21 12:32 Dose: Not Given Documented By: KERRY Non-Admin Reason: NPO Lidocaine/Diphenhydr/Alum/Mg/Simeth (Mag&Al/Sim/Diphenhyd/Lidocaine 10 Ml Oral. Susp) 10 ml PO Q6H [facility]; Protocol Last Admin: 09/05/21 11:16 Dose: 10 ml Documented By: KERRY Montelukast Sodium (Montelukast Sodium 10 Mg Tablet) 10 mg PO DAILY [facility] Last Admin: 09/05/21 12:33 Dose: Not Given Documented By: KERRY Non-Admin Reason: NPO Multi-Ingred Medicated Throat [place] (Throat [place], Medicated 20 Ml Bottle) 1 spray MUCOUS MEM Q2H PRN PRN Reason: Sore Throat Last Admin: 08/31/21 15:36 Dose: 1 spray Documented By: WILMAN Omeprazole (Omeprazole 20 Mg Capsule.Dr) 20 mg PO DAILY@0630 [facility] Last Admin: 09/05/21 06:17 Dose: Not Given Documented By: ALISTAIR Non-Admin Reason: NPO Ondansetron HCl (Ondansetron Hcl 4 Mg/2 Ml Vial) 4 mg IVPUSH Q8H PRN PRN Reason: Nausea and Vomiting Last Admin: 09/01/21 17:49 Dose: 4 mg Documented By: WILMAN Oxybutynin Chloride (Oxybutynin Chloride Er 5 Mg Tab.Er.24) 10 mg PO DAILY [facility] Last Admin: 09/05/21 12:33 Dose: Not Given Documented By: KERRY Non-Admin Reason: NPO Pharmacy Consult (Consult Rx Perform Med Rec) 1 each MISCELLANE ONCE PRN PRN Reason: Consult order Sodium Chloride (0.9 % Sodium Chloride Flush 3 Ml Syringe) 3 ml IVFLUSH QSHIFT [facility] Last Admin: 09/05/21 11:15 Dose: 3 ml Documented By: KERRY Labs CBC & Chem 7: 09/05/21 06:32 09/05/21 06:32 Labs: Laboratory Results - last 24 hr 09/04/21 09/05/21 09/05/21 12:33 06:32 06:32 MCV 82.7 MCH 26.0 L MCHC 31.4 RDW 17.2 H Plt Count 466 H MPV 9.0 L Absolute Nucleated RBC 0.000 Nucleated RBC % (auto) 0.0 PT 15.5 H INR 1.3 H APTT 41.6 H Anion Gap 8 L Estim Creat Clear Calc 76.7 Estimated GFR > 60 Random Glucose 86 Calcium 7.7 L Microbiology Microbiology Results: Microbiology 09/02/21 08:13 Blood Culture - Preliminary Blood - Venous No growth after 48 hours. 09/02/21 08:22 Blood Culture - Preliminary Blood - Venous No growth after 48 hours. Assessment and Plan (1) Acute respiratory failure with hypoxia: Status: Acute (2) Pleural effusion: Status: Acute (3) COVID-19 virus infection: Status: Acute (4) MSSA bacteremia: Status: Acute (5) Atrial fibrillation, new onset: Status: Acute Plan This is a 70-year-old female with history of hypertension, asthma, recent trip to [place] who presents to the emergency department with cough, muscle aches found to have COVID-19, pneumonia, rapid atrial fibrillation Acute respiratory failure with hypoxia Related to underlying COVID-19, and pneumonia Persistent dry cough, shortness of breath and weakness initial CTA chest showed no PE, elevated D-dimer likely due to COVID Repeat Chest x-ray 09/02 showed left lung completely wiped out, CT chest 09/02 evening showed large left-sided effusion with partial loculation and improvement in left lung collapse s/p iv remdesivir, s/p IV Decadron Continue chest PT w cough assist, continue cough medication CRP and procalcitonin level improved significantly Case discussed with Dr. Coffey he recommend chest tube placement to be done by IR since patient was on Eliquis, pleural fluid studies ordered Discussed treatment plan with patient and her at bedside sepsis secondary to staph aureus bacteremia no fevers no chills WBC resolved Continue IV nafcillin x 4 weeks , Kefzol discontinued , due to high risk for diarrhea and C diff with cephalosporin Repeat blood cultures 08/27 -02/10 bottle positive for MSSA likely source skin versus lungs repeat blood cultures 09/02 shows no growth echocardiogram showed EF 60-65%, indeterminate diastolic function, no vegetation seen seen by ID Diarrhea resolved , no further episode stool not collected for C diff, empirically placed on Flagyl , subsequently discontinued. Nonsustained V-tach patient remained asymptomatic continue tele monitor replete potassium keep potassium around 4 and magnesium at 2 hypokalemia will replete and repeat labs New onset Atrial fibrillation with rapid ventricular response triggered by viral infection Received 2 doses of IV Cardizem in the ED, on Cardizem CD 180 mg daily , status post digoxin x2 doses continue digoxin 0.125 mg daily Eliquis on hold for procedure, resume after procedure as per IR recommendation TSH, and magnesium within normal limits Oral thrush less discomfort likely related to antibiotics/Flovent will recommend to rinse mouth after steroid inhalers, on Diflucan day 07/19, and Chloraseptic spray Apthous stomatitis on Magic mouthwash swish and swallow day 04/18-14 Elevated cardiac enzymes Troponin elevated around 100 but flat,Likely secondary to demand HTN d/c norvasc while on cardizem , stable BP Asthma intermittent persistent,Continue Flovent, albuterol, no acute exacerbation Mood continue lamotrigine, Wellbutrin DVT ppx - DC Eliquis in anticipation of chest tube placement , on compression boots GI prophylaxis with Prilosec add Maalox code status - full code Krishna case discussed with them at bedside attending -Dr. Brown Will require ongoing inpatient hospitalization due to bacterial pneumonia, bacteremia requiring IV antibiotics and large left pleural effusion schedule for chest tube placement Quality Stroke Does the patient have a stroke diagnosis?: No VTE Prior VTE?: No VTE Risk Level:: Medical - moderate - high VTE Device Contraindication: N/A - Device Ordered VTE Drug Contraindication: N/A - Med Ordered
[2021-09-05 17:59] LABS: MN% 44.8 %; PMN% 55.2 %; RBC Pleural Fluid 0.004 X10*3/uL; WBC Pleural Fluid 0.434 X10*3/uL
[2021-09-05 18:39] LABS: BF Shift QC OK YES; Lymphocytes Pleural Fluid 53 %; Monocytes Pleural Fluid 35 %; Neutrophils Pleural Fluid 12 %; Other Cells Plerual Fl 43 %
[2021-09-05] MEDS: Acetaminophen 325 MG TABLET 650 MG PO (20:19)
[2021-09-05] MEDS: lamoTRIgine 25 MG TABLET 50 MG PO (20:19)
[2021-09-06] VITALS (8 sets, daily range): BP systolic 131–139; BP diastolic 86–94; PULSE 86–121; RESP 16–20; TEMP 36.4–36.8; O2SAT 96–99
[2021-09-06] MEDS: Nafcillin Sodium 2 GM in 0.9 % Sodium Chloride 100 ML IV ×6 (01:07→21:52)
[2021-09-06] MEDS: 0.9 % Sodium Chloride Flush 3 ML SYRINGE IVFLUSH ×4 (01:07→21:26)
[2021-09-06] MEDS: Mag&Al/Sim/Diphenhyd/Lidocaine 10 ML ORAL.SUSP PO ×4 (05:45→21:40)
[2021-09-06] MEDS: Omeprazole 20 MG CAPSULE.DR PO (05:45)
[2021-09-06 07:23] LABS: Hematocrit 34.5 % (37.0-47.0); Hemoglobin 10.7 g/dl (12.0-16.0); Mean Corpuscular Hemoglobin 25.9 pg (27.0-33.0); Mean Corpuscular Volume 83.5 fL (80.0-98.0); Mean Platelet Volume 8.8 fL (9.4-12.3); Platelet Count 475 X10*3/uL (160-400); Red Blood Count 4.13 X10*6/uL (4.20-5.50); Red Cell Distribution Width 17.5 % (11.0-16.0); White Blood Count 7.7 X10*3/uL (4.8-10.8)
[2021-09-06 07:40] LABS: Anion Gap 11 (12-20); Blood Urea Nitrogen 5 mg/dL (9-16); Calcium 7.9 mg/dL (8.4-10.2); Carbon Dioxide 28 mmol/L (22-29); Chloride 105 mmol/L (96-108); Creatinine Clr Calc Pharmacy 71.8; Estimated Glomerular Filt Rate > 60; Glucose Random 77 mg/dL (60-115); Potassium 3.3 mmol/L (3.3-5.1); Sodium 141 mmol/L (135-145)
[2021-09-06] MEDS: Fluticasone Propionate 100 MCG BLST.W.DEV 2 PUFF INHALE ×2 (07:43→20:05)
[2021-09-06] MEDS: Acetaminophen 325 MG TABLET 650 MG PO ×2 (08:33→21:39)
[2021-09-06] MEDS: Montelukast Sodium 10 MG TABLET PO (08:35)
[2021-09-06] MEDS: Digoxin 0.125 MG TABLET PO (08:35)
[2021-09-06] MEDS: dilTIAZem HCL CD 180 MG CAP.ER.24H PO (08:36)
[2021-09-06] MEDS: buPROPion HCl XL 300 MG TAB.ER.24H PO (08:38)
[2021-09-06] MEDS: lamoTRIgine 100 MG TABLET 200 MG PO (08:39)
[2021-09-06] MEDS: buPROPion HCl XL 150 MG TAB.ER.24H PO (08:40)
--- NOTE | 2021-09-06 08:58 | MHC.CM.PN ---
Female 70 Covid+ PNA S/P Chest tube insertion 09/05/21. Patient will require IV ABX at discharge. [facility] have accepted the patient. CM will follow to address any change in discharge needs. Patient may require a PT eval to assist with determination of dc dispo. DP may be IV ABX @ STR R/T need for chest tube; which may cause a decline in her functional activity status.
[2021-09-06] MEDS: Albuterol Sulfate 90 MCG 8 GM INHALER 2 PUFF INHALE ×3 (11:29→20:05)
[2021-09-06] MEDS: HYDROcodone/Homat 5/1.5/5 ML 5 ML SYRUP PO (13:51)
--- NOTE | 2021-09-06 13:56 | HO.PM.IMPN ---
Subjective Subjective Date of Service: 09/06/21 Interval History: Seen and examined this morning Follow-up for COVID-19, AFib Status post left chest tube placement yesterday, breathing somewhat improved. Still feeling weak, still with dry cough. No fevers, chills Review of Systems Review of Systems: Yes all other systems are reviewed and are negative Constitutional Constitutional: Denies chills and Denies fever(s) Cardiovascular Cardiovascular: Denies chest pain, Denies palpitations and Denies dyspnea Respiratory Respiratory: Reports cough and Denies dyspnea Gastrointestinal Gastrointestinal: Denies abdominal pain, Denies nausea and Denies vomiting Endocrine Endocrine: Denies palpitations Physical Exam Vital Signs: Vital Signs: Last Vital Signs Temp 97.5 F 09/06/21 11:30 Pulse 88 09/06/21 11:30 Resp 17 09/06/21 11:30 BP 139/86 09/06/21 11:30 Pulse Ox 96 09/06/21 11:30 O2 Del Method 09/06/21 11:30 O2 Flow Rate 3 09/06/21 11:30 BMI result Body Mass Index 28.0 Const: General: cooperative, comfortable, alert, awake and ill appearing Nutritional Appearance: average body habitus and thin Orientation/consciousness: patient oriented x3 Resp: Other: frequent coughing; diminished Effort & Inspection: normal respiratory effort and able to speak in complete sentences Auscultation: diminished lung sounds Cardio: Rate: regular rate and tachycardic Rhythm: abnormal rhythm irregularly irregular Heart sounds: S1 normal heart sound present and S2 normal heart sound present GI: Inspection: No distended Palpation (GI): Soft to palpation and nontender Neuro: General: patient oriented x3 and CN's II-XI intact bilaterally Extrem: General: Yes no pedal edema Objective Data Active Medications Acetaminophen (Acetaminophen 325 Mg Tablet) 650 mg PO Q6H PRN PRN Reason: Pain, Mild (Pain Scale 1-3) Last Admin: 09/06/21 08:33 Dose: 650 mg Documented By: BARRETT Al Hydroxide/Mg Hydroxide (Magnesium Hydrox/Alum Hydrox 30 Ml Oral.Susp) 30 ml PO Q4H PRN PRN Reason: Heartburn Last Admin: 09/01/21 14:02 Dose: 30 ml Documented By: WILMAN Albuterol Sulfate (Albuterol Sulfate 90 Mcg 8 Gm Inhaler) 2 puff INHALE Q4H PRN PRN Reason: Shortness Of Breath Last Admin: 09/01/21 20:05 Dose: 2 puff Documented By: MONY Albuterol Sulfate (Albuterol Sulfate 90 Mcg 8 Gm Inhaler) 2 puff INHALE RQID [facility] Last Admin: 09/06/21 11:29 Dose: 2 puff Documented By: DAYANA Benzonatate (Benzonatate 100 Mg Capsule) 100 mg PO TID PRN PRN Reason: cough Last Admin: 09/04/21 22:49 Dose: 100 mg Documented By: YENY Bupropion HCl (Bupropion Hcl Xl 300 Mg Tab.Er.24h) 300 mg PO DAILY [facility] Last Admin: 09/06/21 08:38 Dose: 300 mg Documented By: BARRETT Bupropion HCl (Bupropion Hcl Xl 150 Mg Tab.Er.24h) 150 mg PO DAILY [facility] Last Admin: 09/06/21 08:40 Dose: 150 mg Documented By: BARRETT Digoxin (Digoxin 0.125 Mg Tablet) 0.125 mg PO DAILY [facility] Last Admin: 09/06/21 08:35 Dose: 0.125 mg Documented By: BARRETT Diltiazem HCl (Diltiazem Hcl Cd 180 Mg Cap.Er.24h) 180 mg PO DAILY [facility]; Protocol Last Admin: 09/06/21 08:36 Dose: 180 mg Documented By: BARRETT Docusate Sodium (Docusate Sodium 100 Mg Capsule) 100 mg PO DAILY PRN PRN Reason: Constipation Fluconazole (Fluconazole 100 Mg Tablet) 100 mg PO DAILY [facility] Last Admin: 09/06/21 08:37 Dose: Not Given Documented By: BARRETT Non-Admin Reason: refused, causes nausea Fluticasone Propionate (Fluticasone Propionate 100 Mcg Blst.W.Dev) 2 puff INHALE RBID [facility] Last Admin: 09/06/21 07:43 Dose: 2 puff Documented By: DAYANA Hydrocodone Bit/Homatropine Methylb (Hydrocodone/Homat 5/1.5/5 Ml 5 Ml Syrup) 5 ml PO Q6H PRN PRN Reason: Cough Last Admin: 09/06/21 13:51 Dose: 5 ml Documented By: BARRETT Nafcillin Sodium 2 gm/ Sodium (Chloride) 100 mls @ 200 mls/hr IV Q4H [facility] Last Admin: 09/06/21 13:37 Dose: 200 mls/hr Documented By: BARRETT Alteplase, Recombinant 10 mg/ (Sodium Chloride) 100 mls @ 100 mls/hr INTRAPLEUR BID [facility] Stop: 09/08/21 21:59 Last Admin: 09/06/21 13:17 Dose: 100 mls/hr Documented By: BARRETT Lamotrigine (Lamotrigine 25 Mg Tablet) 50 mg PO BEDTIME [facility] Last Admin: 09/05/21 20:19 Dose: 50 mg Documented By: SOLANGE Lamotrigine (Lamotrigine 100 Mg Tablet) 200 mg PO DAILY [facility] Last Admin: 09/06/21 08:39 Dose: 200 mg Documented By: BARRETT Lidocaine/Diphenhydr/Alum/Mg/Simeth (Mag&Al/Sim/Diphenhyd/Lidocaine 10 Ml Oral.Susp) 10 ml PO Q6H [facility]; Protocol Last Admin: 09/06/21 13:38 Dose: 10 ml Documented By: BARRETT Montelukast Sodium (Montelukast Sodium 10 Mg Tablet) 10 mg PO DAILY [facility] Last Admin: 09/06/21 08:35 Dose: 10 mg Documented By: BARRETT Multi-Ingred Medicated Throat [place] (Throat [place], Medicated 20 Ml Bottle) 1 spray MUCOUS MEM Q2H PRN PRN Reason: Sore Throat Last Admin: 08/31/21 15:36 Dose: 1 spray Documented By: WILMAN Omeprazole (Omeprazole 20 Mg Capsule.Dr) 20 mg PO DAILY@0630 [facility] Last Admin: 09/06/21 05:45 Dose: 20 mg Documented By: ALISTAIR Ondansetron HCl (Ondansetron Hcl 4 Mg/2 Ml Vial) 4 mg IVPUSH Q8H PRN PRN Reason: Nausea and Vomiting Last Admin: 09/01/21 17:49 Dose: 4 mg Documented By: WILMAN Oxybutynin Chloride (Oxybutynin Chloride Er 5 Mg Tab.Er.24) 10 mg PO DAILY [facility] Last Admin: 09/06/21 08:38 Dose: 10 mg Documented By: BARRETT Pharmacy Consult (Consult Rx Perform Med Rec) 1 each MISCELLANE ONCE PRN PRN Reason: Consult order Sodium Chloride (0.9 % Sodium Chloride Flush 3 Ml Syringe) 3 ml IVFLUSH QSHIFT [facility] Last Admin: 09/06/21 13:16 Dose: 3 ml Documented By: BARRETT Labs CBC & Chem 7: 09/06/21 07:02 09/06/21 07:02 Labs: Laboratory Results - last 24 hr 09/05/21 09/05/21 09/06/21 16:55 18:28 07:02 MCV MCH MCHC RDW Plt Count MPV Absolute Nucleated RBC Nucleated RBC % (auto) Anion Gap 11 L Estim Creat Clear Calc 71.8 Estimated GFR > 60 Random Glucose 77 Calcium 7.9 L Pleural pH Cancelled Pleural WBC 0.434 Pleural RBC 0.004 Pleural Neutrophils 12 Pleural Lymphocytes 53 Pleural Monocytes 35 Pleural Other Cells 43 09/06/21 07:02 MCV 83.5 MCH 25.9 L MCHC 31.0 RDW 17.5 H Plt Count 475 H MPV 8.8 L Absolute Nucleated RBC 0.000 Nucleated RBC % (auto) 0.0 Anion Gap Estim Creat Clear Calc Estimated GFR Random Glucose Calcium Pleural pH Pleural WBC Pleural RBC Pleural Neutrophils Pleural Lymphocytes Pleural Monocytes Pleural Other Cells Microbiology Microbiology Results: Microbiology 09/05/21 16:55 Gram Stain - Final Pleural Fluid Routine Culture - Preliminary No growth to date. Anaerobic Culture - Preliminary No growth to date. Assessment and Plan (1) Pleural effusion: Status: Acute (2) Acute respiratory failure with hypoxia: Status: Acute (3) MSSA bacteremia: Status: Acute (4) COVID-19 virus infection: Status: Acute (5) Atrial fibrillation, new onset: Status: Acute Plan This is a 70-year-old female with history of hypertension, asthma, recent trip to [place] who presents to the emergency department with cough, muscle aches found to have COVID-19, pneumonia, rapid atrial fibrillation Acute respiratory failure with hypoxia - Related to underlying COVID-19, and pneumonia Persistent dry cough, shortness of breath and weakness initial CTA chest showed no PE, elevated D-dimer likely due to COVID Repeat Chest x-ray 09/02 showed left lung completely wiped out, CT chest 09/02 evening showed large left-sided effusion with partial loculation and improvement in left lung collapse s/p iv remdesivir, s/p IV Decadron Continue chest PT w cough assist, continue cough medication CRP and procalcitonin level improved significantly Case discussed with Dr. Coffey he recommend chest tube placement by IR 09/05, pleural fluid studies pending - plan for chemical decortication x 3 days sepsis secondary to staph aureus bacteremia no fevers no chills WBC resolved Continue IV nafcillin x 4 weeks , Kefzol discontinued , due to high risk for diarrhea and C diff with cephalosporin Repeat blood cultures 08/27 -02/10 bottle positive for MSSA likely source skin versus lungs repeat blood cultures 09/02 shows no growth echocardiogram showed EF 60-65%, indeterminate diastolic function, no vegetation seen seen by ID Diarrhea resolved , no further episode stool not collected for C diff, empirically placed on Flagyl , subsequently discontinued. Nonsustained V-tach patient remained asymptomatic continue tele monitor replete potassium keep potassium around 4 and magnesium at 2 hypokalemia will replete and repeat labs New onset Atrial fibrillation with rapid ventricular response triggered by viral infection Received 2 doses of IV Cardizem in the ED, on Cardizem CD 180 mg daily , status post digoxin x2 doses continue digoxin 0.125 mg daily Eliquis on hold for procedure, resume after procedure as per IR recommendation TSH, and magnesium within normal limits Oral thrush less discomfort likely related to antibiotics/Flovent will recommend to rinse mouth after steroid inhalers on Diflucan day 08/18, and Chloraseptic spray Apthous stomatitis on Magic mouthwash swish and swallow day 05/19-14 Elevated cardiac enzymes Troponin elevated around 100 but flat,Likely secondary to demand HTN d/c norvasc while on cardizem , stable BP Asthma intermittent persistent,Continue Flovent, albuterol, no acute exacerbation Mood continue lamotrigine, Wellbutrin DVT ppx - DC Eliquis in anticipation of chest tube placement , on compression boots - resume eliquis after tpa through chest tube complete GI prophylaxis with Prilosec add Maalox code status - full code Krishna case discussed with them at bedside attending -Dr. Brown Will require ongoing inpatient hospitalization due to bacterial pneumonia, bacteremia requiring IV antibiotics and large left pleural effusion,chest tube management/chemical decortication Quality Stroke Does the patient have a stroke diagnosis?: No VTE Prior VTE?: No VTE Risk Level:: Medical - moderate - high VTE Device Contraindication: N/A - Device Ordered VTE Drug Contraindication: N/A - Med Ordered
[2021-09-06] MEDS: Potassium Chloride ER 20 MEQ TAB.ER.PRT 40 MEQ PO (14:55)
[2021-09-06] MEDS: oxyCODONE HCl Immed Release 5 MG TABLET PO (14:55)
[2021-09-06 21:09] LABS: Albumin Pleural Fluid 1.6 GM/DL; Amylase Pleural Fluid 16 U/L; Glucose Pleural Fluid 55 MG/DL; LDH Pleural Fluid 596 U/L; Total Protein Pleural Fluid 3.1 GM/DL
[2021-09-06] MEDS: Alteplase Cath Clear 10 MG, Dornase Alfa 5 MG, Lidocaine HCl 2 % MPF 10 ML in 0.9 % Sod... 50 MG INTRAPLEUR (21:21)
[2021-09-06] MEDS: lamoTRIgine 25 MG TABLET 50 MG PO (21:41)
[2021-09-07] VITALS (11 sets, daily range): BP systolic 109–138; BP diastolic 66–94; PULSE 95–113; RESP 16–20; TEMP 36.1–37.1; O2SAT 95–99
[2021-09-07] MEDS: Nafcillin Sodium 2 GM in 0.9 % Sodium Chloride 100 ML IV ×6 (01:20→21:57)
[2021-09-07] MEDS: oxyCODONE HCl Immed Release 5 MG TABLET PO ×3 (03:54→22:00)
[2021-09-07] MEDS: Omeprazole 20 MG CAPSULE.DR PO (05:43)
[2021-09-07] MEDS: Mag&Al/Sim/Diphenhyd/Lidocaine 10 ML ORAL.SUSP PO ×4 (05:43→21:57)
[2021-09-07] MEDS: Acetaminophen 325 MG TABLET 650 MG PO ×2 (05:49→23:29)
[2021-09-07 06:30] LABS: Hematocrit 36.7 % (37.0-47.0); Hemoglobin 11.4 g/dl (12.0-16.0); Mean Corpuscular HGB Conc 31.1 g/dl (31.0-35.0); Mean Corpuscular Hemoglobin 25.6 pg (27.0-33.0); Mean Corpuscular Volume 82.5 fL (80.0-98.0); Platelet Count 445 X10*3/uL (160-400); Red Blood Count 4.45 X10*6/uL (4.20-5.50); Red Cell Distribution Width 17.2 % (11.0-16.0); White Blood Count 10.8 X10*3/uL (4.8-10.8)
[2021-09-07 07:03] LABS: Anion Gap 11 (12-20); Blood Urea Nitrogen 7 mg/dL (9-16); Calcium 7.9 mg/dL (8.4-10.2); Carbon Dioxide 27 mmol/L (22-29); Chloride 104 mmol/L (96-108); Creatinine Clr Calc Pharmacy 75.4; Estimated Glomerular Filt Rate > 60; Glucose Random 95 mg/dL (60-115); Potassium 3.6 mmol/L (3.3-5.1); Sodium 138 mmol/L (135-145)
[2021-09-07] MEDS: Albuterol Sulfate 90 MCG 8 GM INHALER 2 PUFF INHALE ×4 (07:32→20:12)
[2021-09-07] MEDS: Fluticasone Propionate 100 MCG BLST.W.DEV 2 PUFF INHALE ×2 (07:33→20:11)
[2021-09-07] MEDS: Montelukast Sodium 10 MG TABLET PO (09:58)
[2021-09-07] MEDS: Fluconazole 100 MG TABLET PO (09:58)
[2021-09-07] MEDS: buPROPion HCl XL 150 MG TAB.ER.24H PO (09:58)
[2021-09-07] MEDS: buPROPion HCl XL 300 MG TAB.ER.24H PO (09:58)
[2021-09-07] MEDS: Digoxin 0.125 MG TABLET PO (09:58)
--- NOTE | 2021-09-07 10:01 | P.PNPL_ITS ---
Subjective Subjective Date of Service: 09/07/21 Interval history: Patient has had left-sided chest to put in with initial drainage of approximately 150 cc of fluid exudative by LDH criteria. Started on chemical decortication, today day 2/, now drained approximately 1.6 L with improvement in dyspnea. Objective Data Labs CBC & Chem 7: 09/07/21 06:14 09/07/21 06:14 Labs: Laboratory Results - last 24 hr 09/05/21 09/07/21 09/07/21 16:55 06:14 06:14 WBC 10.8 RBC 4.45 Hgb 11.4 L Hct 36.7 L MCV 82.5 MCH 25.6 L MCHC 31.1 RDW 17.2 H Plt Count 445 H MPV 9.0 L Absolute Nucleated RBC 0.000 Nucleated RBC % (auto) 0.0 Sodium 138 Potassium 3.6 Chloride 104 Carbon Dioxide 27 Anion Gap 11 L BUN 7 L Creatinine 0.61 Estim Creat Clear Calc 75.4 Estimated GFR > 60 Random Glucose 95 Calcium 7.9 L Magnesium 2.0 Pleural Total Protein 3.1 Pleural Albumin 1.6 Pleural LDH 596 Pleural Glucose 55 Pleural Amylase 16 Microbiology Microbiology Results: Microbiology 09/05/21 16:55 Pleural Fluid Gram Stain - Final 09/05/21 16:55 Pleural Fluid Routine Culture - Preliminary No growth to date. 09/05/21 16:55 Pleural Fluid Anaerobic Culture - Preliminary No growth to date. 09/02/21 08:13 Blood - Venous Blood Culture - Preliminary No growth after 48 hours. 09/02/21 08:22 Blood - Venous Blood Culture - Preliminary No growth after 48 hours. 08/27/21 09:44 Blood - Venous Blood Culture - Final No growth after 5 days. 08/27/21 09:44 Blood - Venous Blood Culture - Final Staphylococcus aureus 08/25/21 01:04 Blood - Venous Blood Culture - Final Staphylococcus aureus 08/25/21 01:04 Blood - Venous Blood Culture - Final Staphylococcus aureus 08/24/21 09:24 Blood - Venous Blood Culture - Final Staphylococcus aureus 08/24/21 09:25 Blood - Venous Blood Culture - Final Staphylococcus aureus Review of Systems Cardiovascular: Denies chest pain and Reports dyspnea on exertion Respiratory: Denies cough, Denies excessive phlegm production and Reports dyspnea on exertion Physical Exam Vital Signs: Vital Signs: Last Vital Signs Temp 97.9 F 09/07/21 08:00 Pulse 113 H 09/07/21 08:00 Resp 20 09/07/21 08:00 BP 138/94 H 09/07/21 08:00 Pulse Ox 96 09/07/21 08:00 O2 Del Method 09/07/21 08:00 O2 Flow Rate 3 09/07/21 08:00 BMI result Body Mass Index 28.0 Const: General: no acute distress, alert and awake Eyes: Sclerae: sclerae normal EOM: EOMs intact bilaterally Neck: Neck: Yes no lymphadenopathy, Yes trachea midline and Yes supple Resp: Effort & Inspection: normal respiratory effort and no respiratory distress Auscultation: clear to auscultation bilaterally Cardio: Rate: tachycardic Rhythm: regular rhythm Heart sounds: no gallops, no murmurs and no rubs GI: Palpation (GI): Soft to palpation and Other GI palpation findings present ( Nontender) Auscultation: normal bowel sounds Extrem: General: Yes no pedal edema, No clubbing and No cyanosis Procedures Date of Service Date of Service: 09/07/21 Assessment and Plan Assessment and plan (1) Pleural effusion: Status: Acute (2) Acute respiratory failure with hypoxia: Status: Acute (3) MSSA bacteremia: Status: Acute (4) Pneumonia: Status: Acute Plan Impression: 70-year-old lady admitted with bacterial superinfection of underlying COVID, recovering slowly, hospital course complicated by copious mucus production with almost complete opacification of the left lung by large left-sided effusion with partial loculation noted CT scan, now status post left- sided chest tube, started on chemical decortication with improved diffusion drainage and dyspnea. Recommendations: Continue with chest physiotherapy and cough assist. Continue chemical decortication for [address] chest to assess response tomorrow. Progress Note: Quality Stroke Does the patient have a stroke diagnosis?: No
[2021-09-07] MEDS: lamoTRIgine 100 MG TABLET 200 MG PO (10:07)
[2021-09-07] MEDS: 0.9 % Sodium Chloride Flush 3 ML SYRINGE IVFLUSH ×2 (10:08→21:57)
[2021-09-07] MEDS: dilTIAZem HCL CD 180 MG CAP.ER.24H PO (10:14)
[2021-09-07] MEDS: Alteplase Cath Clear 10 MG, Dornase Alfa 5 MG, Lidocaine HCl 2 % MPF 10 ML in 0.9 % Sod... 50 MG INTRAPLEUR ×2 (11:02→21:56)
--- NOTE | 2021-09-07 11:53 | P.PNIM_ITS ---
Subjective Subjective Date of Service: 09/07/21 Interval History: seen and examined this morning follow up for covid 19, afib, pleural effusion chest tube placed two days ago, tpa through chest tube started yesterday with good output, 1.6L out some improvement in breathing, feeling better today still feeling weak but was able to eat some breakfast Review of Systems Review of Systems: Yes all other systems are reviewed and are negative Constitutional Constitutional: Denies chills, Denies fever(s) and Reports lethargy ENT Ears, Nose, Mouth, and Throat: Denies dizziness Cardiovascular Cardiovascular: Denies chest pain, Denies palpitations and Denies dyspnea Respiratory Respiratory: Denies cough and Denies dyspnea Gastrointestinal Gastrointestinal: Denies abdominal pain, Denies nausea and Denies vomiting Neurologic Neurologic: Denies dizziness Endocrine Endocrine: Denies palpitations Physical Exam Vital Signs: Vital Signs: Last Vital Signs Temp 97.9 F 09/07/21 08:00 Pulse 101 H 09/07/21 11:28 Resp 16 09/07/21 11:28 BP 138/94 H 09/07/21 08:00 Pulse Ox 96 09/07/21 08:00 O2 Del Method 09/07/21 08:00 O2 Flow Rate 3 09/07/21 08:00 BMI result Body Mass Index 28.0 Const: General: cooperative, comfortable, alert, awake and ill appearing Nutritional Appearance: average body habitus and thin Orientation/consciousness: patient oriented x3 Chest: Other: left chest tube Resp: Effort & Inspection: normal respiratory effort and able to speak in complete sentences Auscultation: diminished lung sounds Cardio: Rate: regular rate Rhythm: abnormal rhythm irregularly irregular Heart sounds: S1 normal heart sound present and S2 normal heart sound present GI: Inspection: No distended Palpation (GI): Soft to palpation and nontender Neuro: General: patient oriented x3 and CN's II-XI intact bilaterally Extrem: General: Yes no pedal edema Objective Data Active Medications Acetaminophen (Acetaminophen 325 Mg Tablet) 650 mg PO Q6H PRN PRN Reason: Pain, Mild (Pain Scale 1-3) Last Admin: 09/07/21 05:49 Dose: 650 mg Documented By: YAO Al Hydroxide/Mg Hydroxide (Magnesium Hydrox/Alum Hydrox 30 Ml Oral.Susp) 30 ml PO Q4H PRN PRN Reason: Heartburn Last Admin: 09/01/21 14:02 Dose: 30 ml Documented By: WILMAN Albuterol Sulfate (Albuterol Sulfate 90 Mcg 8 Gm Inhaler) 2 puff INHALE Q4H PRN PRN Reason: Shortness Of Breath Last Admin: 09/01/21 20:05 Dose: 2 puff Documented By: MONY Albuterol Sulfate (Albuterol Sulfate 90 Mcg 8 Gm Inhaler) 2 puff INHALE RQID S Last Admin: 09/07/21 11:28 Dose: 2 puff Documented By: DAYANA Benzonatate (Benzonatate 100 Mg Capsule) 100 mg PO TID PRN PRN Reason: cough Last Admin: 09/04/21 22:49 Dose: 100 mg Documented By: YENY Bupropion HCl (Bupropion Hcl Xl 300 Mg Tab.Er.24h) 300 mg PO DAILY [facility] Last Admin: 09/07/21 09:58 Dose: 300 mg Documented By: AMINATA Bupropion HCl (Bupropion Hcl Xl 150 Mg Tab.Er.24h) 150 mg PO DAILY [facility] Last Admin: 09/07/21 09:58 Dose: 150 mg Documented By: AMINATA Digoxin (Digoxin 0.125 Mg Tablet) 0.125 mg PO DAILY [facility] Last Admin: 09/07/21 09:58 Dose: 0.125 mg Documented By: AMINATA Diltiazem HCl (Diltiazem Hcl Cd 180 Mg Cap.Er.24h) 180 mg PO DAILY [facility]; Protocol Last Admin: 09/07/21 10:14 Dose: 180 mg Documented By: AMINATA Docusate Sodium (Docusate Sodium 100 Mg Capsule) 100 mg PO DAILY PRN PRN Reason: Constipation Fluconazole (Fluconazole 100 Mg Tablet) 100 mg PO DAILY [facility] Last Admin: 09/07/21 09:58 Dose: 100 mg Documented By: AMINATA Fluticasone Propionate (Fluticasone Propionate 100 Mcg Blst.W.Dev) 2 puff INHALE RBID [facility] Last Admin: 09/07/21 07:33 Dose: 2 puff Documented By: DAYANA Hydrocodone Bit/Homatropine Methylb (Hydrocodone/Homat 5/1.5/5 Ml 5 Ml Syrup) 5 ml PO Q6H PRN PRN Reason: Cough Last Admin: 09/06/21 13:51 Dose: 5 ml Documented By: BARRETT Nafcillin Sodium 2 gm/ Sodium (Chloride) 100 mls @ 200 mls/hr IV Q4H JAKY Last Infusion: 09/07/21 11:29 Dose: 200 mls/hr Documented By: AMINATA Alteplase, Recombinant 10 mg/Dornase [place] 5 mg/ Lidocaine HCl 10 ml/ Sodium Chloride 50 mls @ 0 mls/hr INTRAPLEUR BID JAKY Stop: 09/09/21 09:01 Last Admin: 09/07/21 11:02 Dose: 50 mls/hr Documented By: AMINATA Comments: given by MD at pt bedside. Lamotrigine (Lamotrigine 25 Mg Tablet) 50 mg PO BEDTIME [facility] Last Admin: 09/06/21 21:41 Dose: 50 mg Documented By: YAO Lamotrigine (Lamotrigine 100 Mg Tablet) 200 mg PO DAILY [facility] Last Admin: 09/07/21 10:07 Dose: 200 mg Documented By: AMINATA Lidocaine/Diphenhydr/Alum/Mg/Simeth (Mag&Al/Sim/Diphenhyd/Lidocaine 10 Ml Oral.Susp) 10 ml PO Q6H [facility]; Protocol Last Admin: 09/07/21 09:59 Dose: 10 ml Documented By: AMINATA Montelukast Sodium (Montelukast Sodium 10 Mg Tablet) 10 mg PO DAILY [facility] Last Admin: 09/07/21 09:58 Dose: 10 mg Documented By: AMINATA Multi-Ingred Medicated Throat [place] (Throat [place], Medicated 20 Ml Bottle) 1 spray MUCOUS MEM Q2H PRN PRN Reason: Sore Throat Last Admin: 08/31/21 15:36 Dose: 1 spray Documented By: WILMAN Omeprazole (Omeprazole 20 Mg Capsule.Dr) 20 mg PO DAILY@0630 [facility] Last Admin: 09/07/21 05:43 Dose: 20 mg Documented By: YAO Ondansetron HCl (Ondansetron Hcl 4 Mg/2 Ml Vial) 4 mg IVPUSH Q8H PRN PRN Reason: Nausea and Vomiting Last Admin: 09/01/21 17:49 Dose: 4 mg Documented By: HO.SOLISPE Oxybutynin Chloride (Oxybutynin Chloride Er 5 Mg Tab.Er.24) 10 mg PO DAILY [facility] Last Admin: 09/07/21 09:58 Dose: 10 mg Documented By: AMINATA Oxycodone HCl (Oxycodone Hcl Immed Release 5 Mg Tablet) 5 mg PO Q6H PRN PRN Reason: Pain, Moderate (Pain Scale 4-6 Last Admin: 09/07/21 10:39 Dose: 5 mg Documented By: MARILOU Pharmacy Consult (Consult Rx Perform Med Rec) 1 each MISCELLANE ONCE PRN PRN Reason: Consult order Sodium Chloride (0.9 % Sodium Chloride Flush 3 Ml Syringe) 3 ml IVFLUSH QSHIFT [facility] Last Admin: 09/07/21 10:08 Dose: 3 ml Documented By: AMINATA Labs CBC & Chem 7: 09/07/21 06:14 09/07/21 06:14 Labs: Laboratory Results - last 24 hr 09/05/21 09/07/21 09/07/21 16:55 06:14 06:14 MCV 82.5 MCH 25.6 L MCHC 31.1 RDW 17.2 H Plt Count 445 H MPV 9.0 L Absolute Nucleated RBC 0.000 Nucleated RBC % (auto) 0.0 Anion Gap 11 L Estim Creat Clear Calc 75.4 Estimated GFR > 60 Random Glucose 95 Calcium 7.9 L Magnesium 2.0 Pleural Total Protein 3.1 Pleural Albumin 1.6 Pleural LDH 596 Pleural Glucose 55 Pleural Amylase 16 Microbiology Microbiology Results: Microbiology 09/02/21 08:13 Blood Culture - Final Blood - Venous No growth after 5 days. 09/02/21 08:22 Blood Culture - Final Blood - Venous No growth after 5 days. 09/05/21 16:55 Gram Stain - Final Pleural Fluid Routine Culture - Preliminary No growth to date. Anaerobic Culture - Preliminary No growth to date. Assessment and Plan (1) Pleural effusion: Status: Acute (2) Acute respiratory failure with hypoxia: Status: Acute (3) MSSA bacteremia: Status: Acute (4) COVID-19 virus infection: Status: Acute (5) Pneumonia: Status: Acute (6) Atrial fibrillation, new onset: Status: Acute Plan This is a 70-year-old female with history of hypertension, asthma, recent trip to [place] who presents to the emergency department with cough, muscle aches found to have COVID-19, pneumonia, rapid atrial fibrillation Acute respiratory failure with hypoxia - Related to bacterial superinfection of underlying COVID 19 Persistent dry cough, shortness of breath and weakness initial CTA chest showed no PE, elevated D-dimer likely due to COVID Repeat Chest x-ray 09/02 showed left lung completely wiped out, CT chest 09/02 evening showed large left-sided effusion with partial loculation and improvement in left lung collapse s/p iv remdesivir, s/p IV Decadron s/p course IV abx Continue chest PT w cough assist, continue cough medication CRP and procalcitonin level improved significantly Case discussed with Dr. Coffey he recommend chest tube placement by IR done 09/05 - fluid studies c/w exudative effusion plan for chemical decortication day 2 of 3, good output thus far 1.6L sepsis secondary to staph aureus bacteremia no fevers no chills WBC resolved Continue IV nafcillin x 4 weeks , Kefzol discontinued , due to high risk for diarrhea and C diff with cephalosporin Repeat blood cultures 08/27 -02/10 bottle positive for MSSA likely source skin versus lungs repeat blood cultures 09/02 shows no growth echocardiogram showed EF 60-65%, indeterminate diastolic function, no vegetation seen seen by ID Diarrhea resolved , no further episode stool not collected for C diff, empirically placed on Flagyl , subsequently discontinued. Nonsustained V-tach patient remained asymptomatic continue tele monitor replete potassium keep potassium around 4 and magnesium at 2 hypokalemia. improved New onset Atrial fibrillation with rapid ventricular response triggered by viral infection Received 2 doses of IV Cardizem in the ED, on Cardizem CD 180 mg daily , status post digoxin x2 doses continue digoxin 0.125 mg daily Eliquis on hold for procedure, resume after procedure as per IR recommendation TSH, and magnesium within normal limits Oral thrush less discomfort likely related to antibiotics/Flovent will recommend to rinse mouth after steroid inhalers on Diflucan for 10 days , and Chloraseptic spray Apthous stomatitis on Magic mouthwash swish and swallow for 10 days Elevated cardiac enzymes Troponin elevated around 100 but flat,Likely secondary to demand HTN d/c norvasc while on cardizem , stable BP Asthma intermittent persistent,Continue Flovent, albuterol, no acute exacerbation Mood continue lamotrigine, Wellbutrin DVT ppx - DC Eliquis in anticipation of chest tube placement , on compression boots - resume eliquis after tpa through chest tube complete GI prophylaxis with Prilosec add Maalox code status - full code Krishna case discussed with them at bedside attending -Dr. Mederos Will require ongoing inpatient hospitalization due to bacterial pneumonia, bacteremia requiring IV antibiotics and large left pleural effusion,chest tube management/chemical decortication Quality Stroke Does the patient have a stroke diagnosis?: No VTE Prior VTE?: No VTE Risk Level:: Medical - moderate - high VTE Device Contraindication: N/A - Device Ordered VTE Drug Contraindication: N/A - Med Ordered
[2021-09-07] MEDS: Potassium Chloride ER 20 MEQ TAB.ER.PRT 40 MEQ PO (13:11)
[2021-09-07] MEDS: lamoTRIgine 25 MG TABLET 50 MG PO (21:57)
[2021-09-07] MEDS: Benzonatate 100 MG CAPSULE PO (21:57)
[2021-09-08] VITALS (11 sets, daily range): BP systolic 118–141; BP diastolic 65–88; PULSE 89–110; RESP 16–20; TEMP 36.4–37; O2SAT 94–99
[2021-09-08] MEDS: Nafcillin Sodium 2 GM in 0.9 % Sodium Chloride 100 ML IV ×6 (00:17→21:44)
[2021-09-08] MEDS: Mag&Al/Sim/Diphenhyd/Lidocaine 10 ML ORAL.SUSP PO ×4 (06:00→21:44)
[2021-09-08] MEDS: Omeprazole 20 MG CAPSULE.DR PO (06:01)
[2021-09-08] MEDS: Albuterol Sulfate 90 MCG 8 GM INHALER 2 PUFF INHALE ×4 (07:26→19:51)
[2021-09-08] MEDS: Fluticasone Propionate 100 MCG BLST.W.DEV 2 PUFF INHALE ×2 (07:26→19:51)
[2021-09-08 08:47] LABS: Anion Gap 13 (12-20); Blood Urea Nitrogen 9 mg/dL (9-16); Calcium 7.9 mg/dL (8.4-10.2); Carbon Dioxide 24 mmol/L (22-29); Chloride 104 mmol/L (96-108); Creatinine Clr Calc Pharmacy 63.8; Estimated Glomerular Filt Rate > 60; Glucose Random 78 mg/dL (60-115); Magnesium 2.1 mg/dL (1.6-2.6); Potassium 4.4 mmol/L (3.3-5.1); Sodium 137 mmol/L (135-145)
[2021-09-08] MEDS: buPROPion HCl XL 300 MG TAB.ER.24H PO (09:35)
[2021-09-08] MEDS: Fluconazole 100 MG TABLET PO (09:35)
[2021-09-08] MEDS: 0.9 % Sodium Chloride Flush 3 ML SYRINGE IVFLUSH ×3 (09:35→21:44)
[2021-09-08] MEDS: dilTIAZem HCL CD 180 MG CAP.ER.24H PO (09:36)
[2021-09-08] MEDS: lamoTRIgine 100 MG TABLET 200 MG PO (09:36)
[2021-09-08] MEDS: buPROPion HCl XL 150 MG TAB.ER.24H PO (09:36)
[2021-09-08] MEDS: Digoxin 0.125 MG TABLET PO (09:36)
[2021-09-08] MEDS: Montelukast Sodium 10 MG TABLET PO (09:37)
[2021-09-08] MEDS: Benzonatate 100 MG CAPSULE PO ×2 (10:05→21:43)
[2021-09-08] MEDS: oxyCODONE HCl Immed Release 5 MG TABLET PO ×2 (10:05→21:43)
[2021-09-08] MEDS: Alteplase Cath Clear 10 MG, Dornase Alfa 5 MG, Lidocaine HCl 2 % MPF 10 ML in 0.9 % Sod... 50 MG INTRAPLEUR ×2 (10:23→21:15)
--- NOTE | 2021-09-08 11:48 | P.PNIM_ITS ---
Subjective Subjective Date of Service: 09/08/21 Interval History: seen and examined this morning follow up for covid, afib, plural effusion s/p chest tube placement continues with good output from chest tube slowly feeling better some dry cough, no sob; generalized fatigue. appetite improving slowly Review of Systems Review of Systems: Yes all other systems are reviewed and are negative Constitutional Constitutional: Denies chills and Denies fever(s) Cardiovascular Cardiovascular: Denies chest pain, Denies palpitations and Denies dyspnea Respiratory Respiratory: Reports cough and Denies dyspnea Gastrointestinal Gastrointestinal: Denies abdominal pain, Denies diarrhea, Denies nausea and Denies vomiting Endocrine Endocrine: Denies palpitations Physical Exam Vital Signs: Vital Signs: Last Vital Signs Temp 97.9 F 09/08/21 07:52 Pulse 94 09/08/21 11:13 Resp 16 09/08/21 11:13 BP 128/76 09/08/21 07:52 Pulse Ox 99 09/08/21 07:52 O2 Del Method 09/08/21 07:52 O2 Flow Rate 3 09/08/21 07:52 BMI result Body Mass Index 28.0 Const: General: cooperative, comfortable, no acute distress, alert and awake Nutritional Appearance: average body habitus Orientation/consciousness: patient oriented x3 Eyes: Sclerae: sclerae normal Pupils: Equal, round and reactive pupils present EOM: EOMs intact bilaterally Chest: Other: chest tube left posterior chest wall Resp: Other: improved aeration Effort & Inspection: normal respiratory effort, able to speak in complete sentences, no respiratory distress and no use of accessory muscles Auscultation: diminished lung sounds Cardio: Other: irregular Rate: regular rate GI: Inspection: No distended Palpation (GI): Soft to palpation and nontender Neuro: General: patient oriented x3 and CN's II-XI intact bilaterally Cranial nerves: Yes Equal, round and reactive pupils present Motor exam (neuro): 5/5 motor strength present throughout Extrem: General: Yes no pedal edema Objective Data Active Medications Acetaminophen (Acetaminophen 325 Mg Tablet) 650 mg PO Q6H PRN PRN Reason: Pain, Mild (Pain Scale 1-3) Last Admin: 09/07/21 23:29 Dose: 650 mg Documented By: NEALOC Al Hydroxide/Mg Hydroxide (Magnesium Hydrox/Alum Hydrox 30 Ml Oral.Susp) 30 ml PO Q4H PRN PRN Reason: Heartburn Last Admin: 09/01/21 14:02 Dose: 30 ml Documented By: WILMAN Albuterol Sulfate (Albuterol Sulfate 90 Mcg 8 Gm Inhaler) 2 puff INHALE Q4H PRN PRN Reason: Shortness Of Breath Last Admin: 09/01/21 20:05 Dose: 2 puff Documented By: MONY Albuterol Sulfate (Albuterol Sulfate 90 Mcg 8 Gm Inhaler) 2 puff INHALE RQID [facility] Last Admin: 09/08/21 11:12 Dose: 2 puff Documented By: DAYANA Benzonatate (Benzonatate 100 Mg Capsule) 100 mg PO TID PRN PRN Reason: cough Last Admin: 09/08/21 10:05 Dose: 100 mg Documented By: JUMA Bupropion HCl (Bupropion Hcl Xl 300 Mg Tab.Er.24h) 300 mg PO DAILY [facility] Last Admin: 09/08/21 09:35 Dose: 300 mg Documented By: JUMA Bupropion HCl (Bupropion Hcl Xl 150 Mg Tab.Er.24h) 150 mg PO DAILY [facility] Last Admin: 09/08/21 09:36 Dose: 150 mg Documented By: JUMA Digoxin (Digoxin 0.125 Mg Tablet) 0.125 mg PO DAILY [facility] Last Admin: 09/08/21 09:36 Dose: 0.125 mg Documented By: JUMA Diltiazem HCl (Diltiazem Hcl Cd 180 Mg Cap.Er.24h) 180 mg PO DAILY [facility]; Protocol Last Admin: 09/08/21 09:36 Dose: 180 mg Documented By: JUMA Docusate Sodium (Docusate Sodium 100 Mg Capsule) 100 mg PO DAILY PRN PRN Reason: Constipation Fluconazole (Fluconazole 100 Mg Tablet) 100 mg PO DAILY [facility] Stop: 09/10/21 09:29 Last Admin: 09/08/21 09:35 Dose: 100 mg Documented By: JUMA Fluticasone Propionate (Fluticasone Propionate 100 Mcg Blst.W.Dev) 2 puff INHALE RBID [facility] Last Admin: 09/08/21 07:26 Dose: 2 puff Documented By: DAYANA Hydrocodone Bit/Homatropine Methylb (Hydrocodone/Homat 5/1.5/5 Ml 5 Ml Syrup) 5 ml PO Q6H PRN PRN Reason: Cough Last Admin: 09/06/21 13:51 Dose: 5 ml Documented By: BARRETT Nafcillin Sodium 2 gm/ Sodium (Chloride) 100 mls @ 200 mls/hr IV Q4H [facility] Last Infusion: 09/08/21 10:46 Dose: 0 mls/hr Documented By: SONIDO Alteplase, Recombinant 10 mg/Dornase [place] 5 mg/ Lidocaine HCl 10 ml/ Sodium Chloride 50 mls @ 0 mls/hr INTRAPLEUR BID [facility] Stop: 09/09/21 09:01 Last Admin: 09/08/21 10:23 Dose: 50 mls/hr Documented By: JUMA Lamotrigine (Lamotrigine 25 Mg Tablet) 50 mg PO BEDTIME [facility] Last Admin: 09/07/21 21:57 Dose: 50 mg Documented By: YENY Lamotrigine (Lamotrigine 100 Mg Tablet) 200 mg PO DAILY [facility] Last Admin: 09/08/21 09:36 Dose: 200 mg Documented By: JUMA Lidocaine/Diphenhydr/Alum/Mg/Simeth (Mag&Al/Sim/Diphenhyd/Lidocaine 10 Ml Oral.Susp) 10 ml PO Q6H [facility]; Protocol Stop: 09/13/21 10:59 Last Admin: 09/08/21 10:06 Dose: 10 ml Documented By: JUMA Montelukast Sodium (Montelukast Sodium 10 Mg Tablet) 10 mg PO DAILY [facility] Last Admin: 09/08/21 09:37 Dose: 10 mg Documented By: JUMA Multi-Ingred Medicated Throat [place] (Throat [place], Medicated 20 Ml Bottle) 1 spray MUCOUS MEM Q2H PRN PRN Reason: Sore Throat Last Admin: 08/31/21 15:36 Dose: 1 spray Documented By: WILMAN Omeprazole (Omeprazole 20 Mg Capsule.) 20 mg PO DAILY@0630 [facility] Last Admin: 09/08/21 06:01 Dose: 20 mg Documented By: YENY Ondansetron HCl (Ondansetron Hcl 4 Mg/2 Ml Vial) 4 mg IVPUSH Q8H PRN PRN Reason: Nausea and Vomiting Last Admin: 09/01/21 17:49 Dose: 4 mg Documented By: WILMAN Oxybutynin Chloride (Oxybutynin Chloride Er 5 Mg Tab.Er.24) 10 mg PO DAILY [facility] Last Admin: 09/08/21 09:39 Dose: 10 mg Documented By: JUMA Oxycodone HCl (Oxycodone Hcl Immed Release 5 Mg Tablet) 5 mg PO Q6H PRN PRN Reason: Pain, Moderate (Pain Scale 4-6 Last Admin: 09/08/21 10:05 Dose: 5 mg Documented By: JUMA Pharmacy Consult (Consult Rx Perform Med Rec) 1 each MISCELLANE ONCE PRN PRN Reason: Consult order Sodium Chloride (0.9 % Sodium Chloride Flush 3 Ml Syringe) 3 ml IVFLUSH QSHIFT [facility] Last Admin: 09/08/21 09:35 Dose: 3 ml Documented By: JUMA Labs CBC & Chem 7: 09/07/21 06:14 09/08/21 07:39 Labs: Laboratory Results - last 24 hr 09/08/21 07:39 Anion Gap 13 Estim Creat Clear Calc 63.8 Estimated GFR > 60 Random Glucose 78 Calcium 7.9 L Magnesium 2.1 Microbiology Microbiology Results: Microbiology 09/05/21 16:55 Gram Stain - Final Pleural Fluid Routine Culture - Final No growth after 2 days Anaerobic Culture - Preliminary No growth to date. 09/02/21 08:13 Blood Culture - Final Blood - Venous No growth after 5 days. 09/02/21 08:22 Blood Culture - Final Blood - Venous No growth after 5 days. Assessment and Plan (1) Pleural effusion: Status: Acute (2) Acute respiratory failure with hypoxia: Status: Acute (3) MSSA bacteremia: Status: Acute (4) COVID-19 virus infection: Status: Acute (5) Pneumonia: Status: Acute (6) Atrial fibrillation, new onset: Status: Acute Plan This is a 70-year-old female with history of hypertension, asthma, recent trip to [place] who presents to the emergency department with cough, muscle aches found to have COVID-19, pneumonia, rapid atrial fibrillation Acute respiratory failure with hypoxia - Related to bacterial superinfection of underlying COVID 19 Persistent dry cough, and weakness. Overall improving slowly initial CTA chest showed no PE, elevated D-dimer likely due to COVID s/p iv remdesivir, s/p IV Decadron s/p course IV abx Repeat Chest x-ray 09/02 showed left lung completely wiped out, CT chest 09/02 evening showed large left-sided effusion with partial loculation and improvement in left lung collapse CRP and procalcitonin level improved significantly Case discussed with Dr. Coffey he recommend chest tube placement by IR done 09/05 - fluid studies c/w exudative effusion plan for chemical decortication day 3 of 3, good output Continue chest PT w cough assist, continue cough medication sepsis secondary to MSSA bacteremia MSSA likely source skin versus lungs. no fevers no chills WBC resolved Continue IV nafcillin x 4 weeks (Kefzol discontinued, due to high risk for diarrhea and C diff with cephalosporin) Repeat blood cultures 08/27 -02/10 bottle positive for repeat blood cultures, 09/02 shows no growth echocardiogram showed EF 60-65%, indeterminate diastolic function, no vegetation seen seen by ID Diarrhea resolved , no further episode stool not collected for C diff, empirically placed on Flagyl , subsequently discontinued. Nonsustained V-tach patient remained asymptomatic continue tele monitor replete potassium keep potassium around 4 and magnesium at 2 hypokalemia improved New onset Atrial fibrillation with rapid ventricular response triggered by viral infection Received 2 doses of IV Cardizem in the ED, on Cardizem CD 180 mg daily , status post digoxin x2 doses continue digoxin 0.125 mg daily Eliquis on hold for procedure, resume after tpa through chest tube complete TSH, and magnesium within normal limits Oral thrush less discomfort likely related to antibiotics/Flovent will recommend to rinse mouth after steroid inhalers on Diflucan for 10 days, and Chloraseptic spray Apthous stomatitis on Magic mouthwash swish and swallow for 10 days Elevated cardiac enzymes Troponin elevated around 100 but flat,Likely secondary to demand HTN d/c norvasc while on cardizem , stable BP Asthma intermittent persistent,Continue Flovent, albuterol, no acute exacerbation Mood continue lamotrigine, Wellbutrin DVT ppx - DC Eliquis in anticipation of chest tube placement , on compression boots - resume eliquis after tpa through chest tube complete GI prophylaxis with Prilosec add Maalox code status - full code HCP - Krishna attending -Dr. Mederos Will require ongoing inpatient hospitalization due to bacterial pneumonia, bacteremia requiring IV antibiotics and large left pleural effusion,chest tube management/chemical decortication Quality Stroke Does the patient have a stroke diagnosis?: No VTE Prior VTE?: No VTE Risk Level:: Medical - moderate - high VTE Device Contraindication: N/A - Device Ordered VTE Drug Contraindication: N/A - Med Ordered
[2021-09-08] MEDS: Acetaminophen 325 MG TABLET 650 MG PO (18:09)
[2021-09-08] MEDS: Docusate Sodium 100 MG CAPSULE PO (21:43)
[2021-09-08] MEDS: lamoTRIgine 25 MG TABLET 50 MG PO (21:44)
[2021-09-09] VITALS (8 sets, daily range): BP systolic 105–148; BP diastolic 67–88; PULSE 83–124; RESP 14–20; TEMP 36.6–37.2; O2SAT 92–96
[2021-09-09] MEDS: Nafcillin Sodium 2 GM in 0.9 % Sodium Chloride 100 ML IV ×6 (00:53→22:04)
[2021-09-09] MEDS: Mag&Al/Sim/Diphenhyd/Lidocaine 10 ML ORAL.SUSP PO ×4 (06:42→22:02)
[2021-09-09] MEDS: Omeprazole 20 MG CAPSULE.DR PO (06:42)
[2021-09-09 07:26] LABS: Hematocrit 34.3 % (37.0-47.0); Hemoglobin 10.5 g/dl (12.0-16.0); Mean Corpuscular HGB Conc 30.6 g/dl (31.0-35.0); Mean Corpuscular Hemoglobin 25.4 pg (27.0-33.0); Mean Corpuscular Volume 82.9 fL (80.0-98.0); Mean Platelet Volume 8.8 fL (9.4-12.3); Platelet Count 357 X10*3/uL (160-400); Red Blood Count 4.14 X10*6/uL (4.20-5.50); Red Cell Distribution Width 17.2 % (11.0-16.0); White Blood Count 10.5 X10*3/uL (4.8-10.8)
[2021-09-09 07:45] LABS: Anion Gap 11 (12-20); Blood Urea Nitrogen 9 mg/dL (9-16); Calcium 7.5 mg/dL (8.4-10.2); Carbon Dioxide 27 mmol/L (22-29); Chloride 105 mmol/L (96-108); Creatinine Clr Calc Pharmacy 65.7; Estimated Glomerular Filt Rate > 60; Glucose Random 83 mg/dL (60-115); Potassium 3.5 mmol/L (3.3-5.1); Sodium 139 mmol/L (135-145)
[2021-09-09] MEDS: Albuterol Sulfate 90 MCG 8 GM INHALER 2 PUFF INHALE ×3 (08:22→19:51)
[2021-09-09] MEDS: Fluticasone Propionate 100 MCG BLST.W.DEV 2 PUFF INHALE ×2 (08:22→19:50)
[2021-09-09] MEDS: lamoTRIgine 100 MG TABLET 200 MG PO (08:28)
[2021-09-09] MEDS: buPROPion HCl XL 300 MG TAB.ER.24H PO (08:28)
[2021-09-09] MEDS: Fluconazole 100 MG TABLET PO (08:28)
[2021-09-09] MEDS: Montelukast Sodium 10 MG TABLET PO (08:28)
[2021-09-09] MEDS: buPROPion HCl XL 150 MG TAB.ER.24H PO (08:28)
[2021-09-09] MEDS: dilTIAZem HCL CD 180 MG CAP.ER.24H PO (08:29)
[2021-09-09] MEDS: Digoxin 0.125 MG TABLET PO (08:29)
[2021-09-09] MEDS: oxyCODONE HCl Immed Release 5 MG TABLET PO ×2 (09:00→22:06)
--- NOTE | 2021-09-09 10:11 | P.PNIM_ITS ---
Subjective Subjective Date of Service: 09/09/21 Interval History: seen and examined this morning follow up for covid, afib, plural effusion s/p chest tube placement continues with good output from chest tube slowly feeling better some dry cough, no sob; generalized fatigue. appetite improving slowly Review of Systems Review of Systems: Yes all other systems are reviewed and are negative Constitutional Constitutional: Denies chills and Denies fever(s) Cardiovascular Cardiovascular: Denies chest pain, Denies palpitations and Denies dyspnea Respiratory Respiratory: Reports cough and Denies dyspnea Gastrointestinal Gastrointestinal: Denies abdominal pain, Denies diarrhea, Denies nausea and Denies vomiting Endocrine Endocrine: Denies palpitations Physical Exam Vital Signs: Vital Signs: Last Vital Signs Temp 98.1 F 09/09/21 08:00 Pulse 124 H 09/09/21 08:24 Resp 18 09/09/21 08:24 BP 137/88 09/09/21 08:00 Pulse Ox 93 09/09/21 08:00 O2 Del Method 09/09/21 08:00 O2 Flow Rate 3 09/08/21 07:52 BMI result Body Mass Index 28.0 Appearing in no acute distress lung sounds are clear to auscultation, chest tube heart regular rate rhythm, clear S1, S2 positive bowel sounds, abdomen is soft, nontender neuro patient is alert x3, no focal deficits Objective Data Active Medications Acetaminophen (Acetaminophen 325 Mg Tablet) 650 mg PO Q6H PRN PRN Reason: Pain, Mild (Pain Scale 1-3) Last Admin: 09/08/21 18:09 Dose: 650 mg Documented By: JUMA Al Hydroxide/Mg Hydroxide (Magnesium Hydrox/Alum Hydrox 30 Ml Oral.Susp) 30 ml PO Q4H PRN PRN Reason: Heartburn Last Admin: 09/01/21 14:02 Dose: 30 ml Documented By: WILMAN Albuterol Sulfate (Albuterol Sulfate 90 Mcg 8 Gm Inhaler) 2 puff INHALE Q4H PRN PRN Reason: Shortness Of Breath Last Admin: 09/01/21 20:05 Dose: 2 puff Documented By: MONY Albuterol Sulfate (Albuterol Sulfate 90 Mcg 8 Gm Inhaler) 2 puff INHALE RQID JAKY Last Admin: 09/09/21 08:22 Dose: 2 puff Documented By: DOROTEO Benzonatate (Benzonatate 100 Mg Capsule) 100 mg PO TID PRN PRN Reason: cough Last Admin: 09/08/21 21:43 Dose: 100 mg Documented By: YENY Bupropion HCl (Bupropion Hcl Xl 300 Mg Tab.Er.24h) 300 mg PO DAILY [facility] Last Admin: 09/09/21 08:28 Dose: 300 mg Documented By: SOLANGE Bupropion HCl (Bupropion Hcl Xl 150 Mg Tab.Er.24h) 150 mg PO DAILY [facility] Last Admin: 09/09/21 08:28 Dose: 150 mg Documented By: SOLANGE Digoxin (Digoxin 0.125 Mg Tablet) 0.125 mg PO DAILY [facility] Last Admin: 09/09/21 08:29 Dose: 0.125 mg Documented By: SOLANGE Diltiazem HCl (Diltiazem Hcl Cd 180 Mg Cap.Er.24h) 180 mg PO DAILY [facility]; Protocol Last Admin: 09/09/21 08:29 Dose: 180 mg Documented By: SOLANGE Docusate Sodium (Docusate Sodium 100 Mg Capsule) 100 mg PO DAILY PRN PRN Reason: Constipation Last Admin: 09/08/21 21:43 Dose: 100 mg Documented By: YENY Fluconazole (Fluconazole 100 Mg Tablet) 100 mg PO DAILY [facility] Stop: 09/10/21 09:29 Last Admin: 09/09/21 08:28 Dose: 100 mg Documented By: SOLANGE Fluticasone Propionate (Fluticasone Propionate 100 Mcg Blst.W.Dev) 2 puff INHALE RBID [facility] Last Admin: 09/09/21 08:22 Dose: 2 puff Documented By: DOROTEO Hydrocodone Bit/Homatropine Methylb (Hydrocodone/Homat 5/1.5/5 Ml 5 Ml Syrup) 5 ml PO Q6H PRN PRN Reason: Cough Last Admin: 09/06/21 13:51 Dose: 5 ml Documented By: BARRETT Nafcillin Sodium 2 gm/ Sodium (Chloride) 100 mls @ 200 mls/hr IV Q4H [facility] Last Infusion: 09/09/21 09:25 Dose: 0 mls/hr Documented By: SOLANGE Lamotrigine (Lamotrigine 25 Mg Tablet) 50 mg PO BEDTIME [facility] Last Admin: 09/08/21 21:44 Dose: 50 mg Documented By: YENY Lamotrigine (Lamotrigine 100 Mg Tablet) 200 mg PO DAILY [facility] Last Admin: 09/09/21 08:28 Dose: 200 mg Documented By: SOLANGE Lidocaine/Diphenhydr/Alum/Mg/Simeth (Mag&Al/Sim/Diphenhyd/Lidocaine 10 Ml Oral.Susp) 10 ml PO Q6H [facility]; Protocol Stop: 09/13/21 10:59 Last Admin: 09/09/21 06:42 Dose: 10 ml Documented By: YENY Montelukast Sodium (Montelukast Sodium 10 Mg Tablet) 10 mg PO DAILY [facility] Last Admin: 09/09/21 08:28 Dose: 10 mg Documented By: SOLANGE Multi-Ingred Medicated Throat [place] (Throat [place], Medicated 20 Ml Bottle) 1 spray MUCOUS MEM Q2H PRN PRN Reason: Sore Throat Last Admin: 08/31/21 15:36 Dose: 1 spray Documented By: WILMAN Omeprazole (Omeprazole 20 Mg Capsule.Dr) 20 mg PO DAILY@0630 [facility] Last Admin: 09/09/21 06:42 Dose: 20 mg Documented By: YENY Ondansetron HCl (Ondansetron Hcl 4 Mg/2 Ml Vial) 4 mg IVPUSH Q8H PRN PRN Reason: Nausea and Vomiting Last Admin: 09/01/21 17:49 Dose: 4 mg Documented By: WILMAN Oxybutynin Chloride (Oxybutynin Chloride Er 5 Mg Tab.Er.24) 10 mg PO DAILY [facility] Last Admin: 09/09/21 08:29 Dose: 10 mg Documented By: SOLANGE Oxycodone HCl (Oxycodone Hcl Immed Release 5 Mg Tablet) 5 mg PO Q6H PRN PRN Reason: Pain, Moderate (Pain Scale 4-6 Last Admin: 09/09/21 09:00 Dose: 5 mg Documented By: SOLANGE Pharmacy Consult (Consult Rx Perform Med Rec) 1 each MISCELLANE ONCE PRN PRN Reason: Consult order Sodium Chloride (0.9 % Sodium Chloride Flush 3 Ml Syringe) 3 ml IVFLUSH QSHIFT [facility] Last Admin: 09/08/21 21:44 Dose: 3 ml Documented By: YENY Labs CBC & Chem 7: 09/09/21 07:13 09/09/21 07:13 Labs: Laboratory Results - last 24 hr 09/09/21 09/09/21 07:13 07:13 MCV 82.9 MCH 25.4 L MCHC 30.6 L RDW 17.2 H Plt Count 357 MPV 8.8 L Absolute Nucleated RBC 0.000 Nucleated RBC % (auto) 0.0 Anion Gap 11 L Estim Creat Clear Calc 65.7 Estimated GFR > 60 Random Glucose 83 Calcium 7.5 L Microbiology Microbiology Results: Microbiology 09/05/21 16:55 Gram Stain - Final Pleural Fluid Routine Culture - Final No growth after 2 days Anaerobic Culture - Preliminary No growth to date. Assessment and Plan (1) Pleural effusion: Status: Acute (2) Acute respiratory failure with hypoxia: Status: Acute (3) MSSA bacteremia: Status: Acute (4) COVID-19 virus infection: Status: Acute (5) Pneumonia: Status: Acute (6) Atrial fibrillation, new onset: Status: Acute Plan This is a 70-year-old female with history of hypertension, asthma, recent trip to [place] who presents to the emergency department with cough, muscle aches found to have COVID-19, pneumonia, rapid atrial fibrillation Acute respiratory failure with hypoxia - Related to bacterial superinfection of underlying COVID 19 Persistent dry cough, and weakness. Overall improving slowly s/p iv remdesivir, IV Decadron, abx CT chest 09/02 showed large left-sided effusion with partial loculation and improvement in left lung collapse Case discussed with Dr. Coffey he recommend chest tube placement by IR done 09/05 - fluid studies c/w exudative effusion chemical decortication day 3 of 3, good output Continue chest PT w cough assist, continue cough medication sepsis secondary to MSSA bacteremia MSSA likely source skin versus lungs. no fevers, no chills, WBC resolved Continue IV nafcillin x 4 weeks (09/27/21) picc line placement follow cx from 09/02 neg seen by ID Diarrhea. resolved no further episode stool not collected for C diff, empirically placed on Flagyl , subsequently discontinued. Nonsustained V-tach patient remained asymptomatic continue tele monitor hypokalemia resolved New onset Atrial fibrillation with rapid ventricular response triggered by viral infection Cardizem CD 180 mg daily , digoxin 0.125 mg daily Eliquis on hold, resume after tpa through chest tube complete TSH, and magnesium within normal limits Oral thrush less discomfort likely related to antibiotics/Flovent will recommend to rinse mouth after steroid inhalers on Diflucan for 10 days, and Chloraseptic spray Apthous stomatitis on Magic mouthwash swish and swallow for 10 days Elevated cardiac enzymes Troponin elevated around 100 but flat,Likely secondary to demand HTN d/c norvasc while on cardizem , stable BP Asthma intermittent persistent,Continue Flovent, albuterol, no acute exacerbation Mood continue lamotrigine, Wellbutrin DVT ppx - DC Eliquis in anticipation of chest tube placement , on compression boots - resume eliquis after tpa through chest tube complete code status - full code HCP - Krishna attending -Dr. Guerrero Will require ongoing inpatient hospitalization due to bacterial pneumonia, bacteremia requiring IV antibiotics and large left pleural effusion,chest tube management/chemical decortication Quality Stroke Does the patient have a stroke diagnosis?: No VTE Prior VTE?: No VTE Risk Level:: Medical - moderate - high VTE Device Contraindication: N/A - Device Ordered VTE Drug Contraindication: N/A - Med Ordered
--- NOTE | 2021-09-09 13:16 | P.PICC_ITS ---
PICC Line Insertion [facility] Diagnosis: [MSSA bacteremia] Indication: snf antibiotics needed Pertinent Labs: reviewed Technique: Following informed consent including risks, benefits and alternatives and using sterile technique including cap and mask, sterile gown, glove and drape, the right arm was prepped and draped in the usual sterile fashion of full barrier technique with CHG. Following completion of [place] Protocol the skin and soft tissues were anesthetized with 1% Lidocaine plain. Using ultrasound guidance, right brachial vein access was attempted twice by Dash Mendosa RN without success. Right brachial vein access was obtained on first attempt by Phoebe Marie RN. Over an 0.018 wire through peel-away sheath, a [4 FR single lumen] PICC line was positioned. Catheter length is 35 CM internal length, 0 CM external length, for a total trimmed length of 35 CM. The procedure was performed in room 478. Unable to verify tip placement due to Atrial Fibrillation. Dash Poole [employer] notified to order STAT CXR. Ultrasound was used to document vein patency and for needle entry. A formal ultrasound picture was recorded. PICC line is currently dressed with a StatLock, Tegaderm, and CHG disc. Verification has been performed for blood return and line patency. Arm Circumference: [32 CM] Equipment: [employer] Power PICC Solo Catheter Type: 4FR Single Lumen PICC Lot #: [id number]
[2021-09-09] MEDS: 0.9 % Sodium Chloride Flush 3 ML SYRINGE IVFLUSH ×3 (13:26→22:04)
[2021-09-09] MEDS: lamoTRIgine 25 MG TABLET 50 MG PO (22:01)
[2021-09-10] VITALS (11 sets, daily range): BP systolic 121–147; BP diastolic 74–90; PULSE 96–108; RESP 16–20; TEMP 36.4–37; O2SAT 94–97
[2021-09-10] MEDS: Nafcillin Sodium 2 GM in 0.9 % Sodium Chloride 100 ML IV ×6 (02:23→22:18)
[2021-09-10] MEDS: Mag&Al/Sim/Diphenhyd/Lidocaine 10 ML ORAL.SUSP PO ×4 (05:58→22:16)
[2021-09-10] MEDS: Omeprazole 20 MG CAPSULE.DR PO (05:58)
[2021-09-10] MEDS: Fluticasone Propionate 100 MCG BLST.W.DEV 2 PUFF INHALE ×2 (07:52→20:31)
[2021-09-10] MEDS: Albuterol Sulfate 90 MCG 8 GM INHALER 2 PUFF INHALE ×4 (07:52→20:32)
[2021-09-10] MEDS: dilTIAZem HCL CD 180 MG CAP.ER.24H PO (09:18)
[2021-09-10] MEDS: Fluconazole 100 MG TABLET PO (09:20)
[2021-09-10] MEDS: Montelukast Sodium 10 MG TABLET PO (09:20)
[2021-09-10] MEDS: buPROPion HCl XL 300 MG TAB.ER.24H PO (09:20)
[2021-09-10] MEDS: Digoxin 0.125 MG TABLET PO (09:20)
[2021-09-10] MEDS: lamoTRIgine 100 MG TABLET 200 MG PO (09:20)
[2021-09-10] MEDS: 0.9 % Sodium Chloride Flush 3 ML SYRINGE IVFLUSH ×3 (09:21→22:21)
[2021-09-10] MEDS: buPROPion HCl XL 150 MG TAB.ER.24H PO (09:40)
--- NOTE | 2021-09-10 11:06 | HO.PM.IMPN ---
Subjective Subjective Date of Service: 09/10/21 Interval History: seen and examined this morning slowly feeling better some dry cough, no sob; generalized fatigue. appetite improving slowly Review of Systems Review of Systems: Yes all other systems are reviewed and are negative Constitutional Constitutional: Denies chills and Denies fever(s) Cardiovascular Cardiovascular: Denies chest pain, Denies palpitations and Denies dyspnea Respiratory Respiratory: Reports cough and Denies dyspnea Gastrointestinal Gastrointestinal: Denies abdominal pain, Denies diarrhea, Denies nausea and Denies vomiting Endocrine Endocrine: Denies palpitations Physical Exam Vital Signs: Vital Signs: Last Vital Signs Temp 97.8 F 09/10/21 08:00 Pulse 97 09/10/21 10:15 Resp 20 09/10/21 08:00 BP 132/74 09/10/21 10:15 Pulse Ox 94 09/10/21 10:15 O2 Del Method 09/10/21 08:00 O2 Flow Rate 3 09/08/21 07:52 BMI result Body Mass Index 28.0 Appearing in no acute distress lung sounds are clear to auscultation heart regular rate rhythm, clear S1, S2 positive bowel sounds, abdomen is soft, nontender neuro patient is alert x3, no focal deficits Objective Data Active Medications Acetaminophen (Acetaminophen 325 Mg Tablet) 650 mg PO Q6H PRN PRN Reason: Pain, Mild (Pain Scale 1-3) Last Admin: 09/08/21 18:09 Dose: 650 mg Documented By: JUMA Al Hydroxide/Mg Hydroxide (Magnesium Hydrox/Alum Hydrox 30 Ml Oral.Susp) 30 ml PO Q4H PRN PRN Reason: Heartburn Last Admin: 09/01/21 14:02 Dose: 30 ml Documented By: WILMAN Albuterol Sulfate (Albuterol Sulfate 90 Mcg 8 Gm Inhaler) 2 puff INHALE Q4H PRN PRN Reason: Shortness Of Breath Last Admin: 09/01/21 20:05 Dose: 2 puff Documented By: MONY Albuterol Sulfate (Albuterol Sulfate 90 Mcg 8 Gm Inhaler) 2 puff INHALE RQID JAKY Last Admin: 09/10/21 07:52 Dose: 2 puff Documented By: BLASCDenise Benzonatate (Benzonatate 100 Mg Capsule) 100 mg PO TID PRN PRN Reason: cough Last Admin: 09/08/21 21:43 Dose: 100 mg Documented By: YENY Bupropion HCl (Bupropion Hcl Xl 300 Mg Tab.Er.24h) 300 mg PO DAILY [facility] Last Admin: 09/10/21 09:20 Dose: 300 mg Documented By: LEEANN Bupropion HCl (Bupropion Hcl Xl 150 Mg Tab.Er.24h) 150 mg PO DAILY [facility] Last Admin: 09/10/21 09:40 Dose: 150 mg Documented By: LEEANN Digoxin (Digoxin 0.125 Mg Tablet) 0.125 mg PO DAILY [facility] Last Admin: 09/10/21 09:20 Dose: 0.125 mg Documented By: LEEANN Diltiazem HCl (Diltiazem Hcl Cd 180 Mg Cap.Er.24h) 180 mg PO DAILY [facility]; Protocol Last Admin: 09/10/21 09:18 Dose: 180 mg Documented By: LEEANN Docusate Sodium (Docusate Sodium 100 Mg Capsule) 100 mg PO DAILY PRN PRN Reason: Constipation Last Admin: 09/08/21 21:43 Dose: 100 mg Documented By: YENY Fluticasone Propionate (Fluticasone Propionate 100 Mcg Blst.W.Dev) 2 puff INHALE RBID [facility] Last Admin: 09/10/21 07:52 Dose: 2 puff Documented By: DAYANA Hydrocodone Bit/Homatropine Methylb (Hydrocodone/Homat 5/1.5/5 Ml 5 Ml Syrup) 5 ml PO Q6H PRN PRN Reason: Cough Last Admin: 09/06/21 13:51 Dose: 5 ml Documented By: BARRETT Nafcillin Sodium 2 gm/ Sodium (Chloride) 100 mls @ 200 mls/hr IV Q4H [facility] Last Infusion: 09/10/21 10:49 Dose: 0 mls/hr Documented By: LEEANN Lamotrigine (Lamotrigine 25 Mg Tablet) 50 mg PO BEDTIME [facility] Last Admin: 09/09/21 22:01 Dose: 50 mg Documented By: YAO Lamotrigine (Lamotrigine 100 Mg Tablet) 200 mg PO DAILY [facility] Last Admin: 09/10/21 09:20 Dose: 200 mg Documented By: LEEANN Lidocaine/Diphenhydr/Alum/Mg/Simeth (Mag&Al/Sim/Diphenhyd/Lidocaine 10 Ml Oral.Susp) 10 ml PO Q6H [facility]; Protocol Stop: 09/13/21 10:59 Last Admin: 09/10/21 05:58 Dose: 10 ml Documented By: YAO Montelukast Sodium (Montelukast Sodium 10 Mg Tablet) 10 mg PO DAILY [facility] Last Admin: 09/10/21 09:20 Dose: 10 mg Documented By: LEEANN Multi-Ingred Medicated Throat [place] (Throat [place], Medicated 20 Ml Bottle) 1 spray MUCOUS MEM Q2H PRN PRN Reason: Sore Throat Last Admin: 08/31/21 15:36 Dose: 1 spray Documented By: WILMAN Omeprazole (Omeprazole 20 Mg Capsule.Dr) 20 mg PO DAILY@0630 [facility] Last Admin: 09/10/21 05:58 Dose: 20 mg Documented By: YAO Ondansetron HCl (Ondansetron Hcl 4 Mg/2 Ml Vial) 4 mg IVPUSH Q8H PRN PRN Reason: Nausea and Vomiting Last Admin: 09/01/21 17:49 Dose: 4 mg Documented By: WILMAN Oxybutynin Chloride (Oxybutynin Chloride Er 5 Mg Tab.Er.24) 10 mg PO DAILY [facility] Last Admin: 09/10/21 09:18 Dose: 10 mg Documented By: LEEANN Oxycodone HCl (Oxycodone Hcl Immed Release 5 Mg Tablet) 5 mg PO Q6H PRN PRN Reason: Pain, Moderate (Pain Scale 4-6 Last Admin: 09/09/21 22:06 Dose: 5 mg Documented By: YAO Pharmacy Consult (Consult Rx Perform Med Rec) 1 each MISCELLANE ONCE PRN PRN Reason: Consult order Sodium Chloride (0.9 % Sodium Chloride Flush 3 Ml Syringe) 3 ml IVFLUSH QSHIFT [facility] Last Admin: 09/10/21 09:21 Dose: 3 ml Documented By: LEEANN Labs CBC & Chem 7: 09/09/21 07:13 09/09/21 07:13 Microbiology Microbiology Results: Microbiology 09/05/21 16:55 Gram Stain - Final Pleural Fluid Routine Culture - Final No growth after 2 days Anaerobic Culture - Preliminary No growth to date. Assessment and Plan (1) Pleural effusion: Status: Acute (2) Acute respiratory failure with hypoxia: Status: Acute (3) MSSA bacteremia: Status: Acute (4) COVID-19 virus infection: Status: Acute (5) Pneumonia: Status: Acute (6) Atrial fibrillation, new onset: Status: Acute Plan This is a 70-year-old female with history of hypertension, asthma, recent trip to [place] who presents to the emergency department with cough, muscle aches found to have COVID-19, pneumonia, rapid atrial fibrillation Acute respiratory failure with hypoxia - Related to bacterial superinfection of underlying COVID 19 Persistent dry cough, and weakness. Overall improving slowly s/p iv remdesivir, IV Decadron, abx CT chest 09/02 showed large left-sided effusion with partial loculation and improvement in left lung collapse, s/p chest tube and chemical decortication completed chest tube removed today, repeat CXR stable sepsis secondary to MSSA bacteremia MSSA likely source skin versus lungs. Continue IV nafcillin x 4 weeks (09/27/21) follow cx from 09/02 neg Resolved and chronic issues Diarrhea. resolved no further episode stool not collected for C diff, empirically placed on Flagyl , subsequently discontinued. Nonsustained V-tach patient remained asymptomatic continue tele monitor hypokalemia resolved New onset Atrial fibrillation with rapid ventricular response triggered by viral infection Cardizem CD 180 mg daily , digoxin 0.125 mg daily Eliquis resumed after tpa through chest tube TSH, and magnesium within normal limits Oral thrush less discomfort likely related to antibiotics/Flovent will recommend to rinse mouth after steroid inhalers on Diflucan for 10 days, and Chloraseptic spray Apthous stomatitis on Magic mouthwash swish and swallow for 10 days Elevated cardiac enzymes Troponin elevated around 100 but flat,Likely secondary to demand HTN d/c norvasc while on cardizem , stable BP Asthma intermittent persistent,Continue Flovent, albuterol, no acute exacerbation Mood continue lamotrigine, Wellbutrin DVT ppx - Resume eliquis code status - full code attending -Dr. Kevin MARTINO likely ok for dc tomorrow if medically stable Will require ongoing inpatient hospitalization due to bacterial pneumonia, bacteremia requiring IV antibiotics and large left pleural effusion,chest tube management/chemical decortication Quality Stroke Does the patient have a stroke diagnosis?: No VTE Prior VTE?: No VTE Risk Level:: Medical - moderate - high VTE Device Contraindication: N/A - Device Ordered VTE Drug Contraindication: N/A - Med Ordered
--- NOTE | 2021-09-10 15:57 | PM.DS ---
DS: Providers Provider Date of admission: 08/24/21 13:49 Primary care physician: Eddie Messina MD Consults: 08/24/21 13:55 Consult to Cardiology Routine Consulting Provider: Van Jin Reason for consultation: new onset afib Has provider been notified: No 08/25/21 12:25 Consult to Infectious Diseases Routine Consulting Provider: Teresa Ring Reason for consultation: covid 19, bacteremia Has provider been notified: No 09/02/21 09:07 Consult to Pulmonology Routine Consulting Provider: Gerardo Coffey Reason for consultation: left lung collpase Has provider been notified: Yes DS: Diagnosis Discharge Diagnosis (1) Pleural effusion: Status: Acute (2) Acute respiratory failure with hypoxia: Status: Acute (3) MSSA bacteremia: Status: Acute (4) COVID-19 virus infection: Status: Acute (5) Pneumonia: Status: Acute (6) Atrial fibrillation, new onset: Status: Acute DS: Summary Hospital Course Hospital Course: as poer admitting provider This is a 70-year-old female who recently returned from [place] who presents to the emergency department with cough and body aches.? She returned from [place] on Thursday and immediately began subjective fever, diffuse body aches, cough and weakness.? Her son-in-law was on a trip with her began coughing and having sore throat on the trip.? Her cough is primarily dry with some intermittent dark phlegm.? She states that she was treated with a course of prednisone for cough she had prior to going on a trip but her cough had completely resolved until this past Thursday.? In the emergency department she was noted to be tachycardic, EKG was obtained and showed atrial fibrillation with rapid ventricular response.? Patient denies any known history of atrial fibrillation.? She received 2 doses of IV Cardizem but continued to be tachycardic.? Lab work revealed leukocytosis of 13.7.? CRP was elevated at 23.6, BNP 392, troponin 100.1, 107.9 and procalcitonin of 3.13.? She tested positive for COVID-19.? CTA was obtained and showed no evidence of pulmonary embolism but did show right basilar pneumonia.? She was treated with IV levofloxacin . Acute respiratory failure with hypoxia - Related to bacterial superinfection of underlying COVID 19 Persistent dry cough, and weakness.? Overall improving slowly s/p iv remdesivir, IV Decadron, abx? CT chest 09/02 showed large left-sided effusion with partial loculation and improvement in left lung collapse, s/p chest tube and chemical decortication completed chest tube removed today, repeat CXR stable Follow-up with thoracic surgery as an outpatient in the next several weeks sepsis secondary to MSSA bacteremia MSSA likely source skin versus lungs. Continue IV nafcillin x 4 weeks (09/27/21) follow cx from 09/02 neg Diarrhea. resolved no further episode stool not collected for C diff, empirically placed on Flagyl , subsequently discontinued. Nonsustained V-tach? patient remained asymptomatic continue tele monitor hypokalemia resolved New onset Atrial fibrillation with rapid ventricular response triggered by viral infection Cardizem CD 180 mg daily , digoxin 0.125 mg daily Eliquis? resumed after tpa through chest tube TSH, and magnesium within normal limits Oral thrush less discomfort likely related to antibiotics/Flovent will recommend to rinse mouth after steroid inhalers on Diflucan for 10 days, and Chloraseptic spray. Completed course of Diflucan Apthous stomatitis? on Magic mouthwash swish and swallow for 10 days, stop 09/13/2021 Elevated cardiac enzymes Troponin elevated around 100 but flat,Likely secondary to demand HTN Now on oral diltiazem and digoxin, continue this for now and stop amlodipine Consider continuing as an outpatient if blood pressure is elevated Asthma intermittent persistent,Continue Flovent, albuterol, no acute exacerbation Mood continue lamotrigine, Wellbutrin Time Spent with Patient Time attestation: Total time spent providing and/or coordinating discharge services: Physical Exam Vital Signs: Vital Signs: Last Vital Signs Temp 98.2 F 09/10/21 15:50 Pulse 106 H 09/10/21 15:52 Resp 18 09/10/21 15:52 BP 147/90 H 09/10/21 15:50 Pulse Ox 94 09/10/21 15:50 O2 Del Method 09/10/21 15:50 O2 Flow Rate 3 09/08/21 07:52 BMI result Body Mass Index 28.0 DS: Data Data Completed and Pending Labs on day of discharge: Preliminary micro results at discharge 09/05/21 16:55 Anaerobic Culture - Preliminary Pleural Fluid No growth to date. Discharge Plan Discharge Patient Disposition: Home Health Service Discharge Diagnosis: Acute respiratory failure with hypoxia COVID-19 Sepsis secondary to MSSA bacteremia Diarrhea Nonsustained V-tach Hypokalemia New onset atrial fibrillation Oral thrush Apthous stomatitis Referrals: Eddie Messina MD [Primary Care Provider] - 1 Week Shanna Laws MD [Physician] - 3 Weeks Discharge Medications: No Action pantoprazole 40 mg tablet,delayed release (DR/EC) 40 mg PO DAILY@0630 bupropion HCl [Wellbutrin SR] 200 mg tablet sustained-release 12 hr 200 mg PO BID amlodipine 2.5 mg tablet 2.5 mg PO DAILY lamotrigine 25 mg tablet 50 mg PO BEDTIME celecoxib 200 mg capsule 200 mg PO DAILY montelukast 10 mg tablet 10 mg PO DAILY lamotrigine 200 mg tablet 200 mg PO DAILY oxybutynin chloride 10 mg tablet extended release 24hr 10 mg PO DAILY albuterol sulfate 90 mcg/actuation HFA aerosol inhaler 2 puff inhalation Q4-6H PRN (Reason: Shortness Of Breath) Flovent HFA 110 mcg/actuation HFA aerosol inhaler 2 puff inhalation BID Diet: Advance to usual diet Activity on Discharge: As tolerated Stand Alone Forms: Patient Portal Discharge page Care Plan Goals: Complete resolution of symptoms Complete antibiotics as prescribed Follow-up with thoracic surgeon within the next several weeks to reassess effusion Health Concerns: Acute respiratory failure with hypoxia COVID-19 Sepsis secondary to MSSA bacteremia Diarrhea Nonsustained V-tach Hypokalemia New onset atrial fibrillation Oral thrush Apthous stomatitis Plan of Treatment: Follow-up with your primary care provider as needed Continue nafcillin until 09/27/2021, after that time the visiting nurse may pull your midline Assessment: See discharge summary
[2021-09-10] MEDS: lamoTRIgine 25 MG TABLET 50 MG PO (22:10)
[2021-09-10] MEDS: oxyCODONE HCl Immed Release 5 MG TABLET PO (22:10)
[2021-09-10] MEDS: Benzonatate 100 MG CAPSULE PO (22:10)
[2021-09-10] MEDS: Apixaban 5 MG TABLET PO (22:10)
[2021-09-11] VITALS (11 sets, daily range): BP systolic 122–153; BP diastolic 60–88; PULSE 63–107; RESP 16–20; TEMP 36.4–36.8; O2SAT 95–96
[2021-09-11] MEDS: Nafcillin Sodium 2 GM in 0.9 % Sodium Chloride 100 ML IV ×6 (01:55→21:25)
[2021-09-11] MEDS: Acetaminophen 325 MG TABLET 650 MG PO ×2 (01:55→22:24)
[2021-09-11] MEDS: Omeprazole 20 MG CAPSULE.DR PO (05:28)
[2021-09-11] MEDS: Mag&Al/Sim/Diphenhyd/Lidocaine 10 ML ORAL.SUSP PO ×2 (05:28→19:54)
[2021-09-11] MEDS: Fluticasone Propionate 100 MCG BLST.W.DEV 2 PUFF INHALE ×2 (08:13→20:06)
[2021-09-11] MEDS: Albuterol Sulfate 90 MCG 8 GM INHALER 2 PUFF INHALE ×3 (08:13→20:06)
[2021-09-11] MEDS: lamoTRIgine 100 MG TABLET 200 MG PO (10:04)
[2021-09-11] MEDS: Montelukast Sodium 10 MG TABLET PO (10:04)
[2021-09-11] MEDS: Digoxin 0.125 MG TABLET PO (10:05)
[2021-09-11] MEDS: buPROPion HCl XL 150 MG TAB.ER.24H PO (10:05)
[2021-09-11] MEDS: Apixaban 5 MG TABLET PO ×2 (10:05→19:55)
[2021-09-11] MEDS: buPROPion HCl XL 300 MG TAB.ER.24H PO (10:05)
[2021-09-11] MEDS: dilTIAZem HCL CD 180 MG CAP.ER.24H PO (10:05)
[2021-09-11] MEDS: 0.9 % Sodium Chloride Flush 3 ML SYRINGE IVFLUSH ×3 (10:06→21:25)
--- NOTE | 2021-09-11 12:05 | MHC.CM.PN ---
Addendum entered by Mabel Melgoza 09/11/21 12:34: Home infusion services will begin tomorrow. [facility] will deliver the ABX and supplies tomorrow morning. [facility] will start services tomorrow as well. The patient has been notified of discharge tomorrow. Original Note: Female 70 DX Covid+ PNA She will dc home with Naficillin 2gm IV q4h. Flush orders have been sent to [facility]. If the IV abx can be arranged, she will discharge today. Waiting to hear back from [facility].
[2021-09-11] MEDS: dilTIAZem HCL 60 MG TABLET PO (14:04)
--- NOTE | 2021-09-11 15:14 | HO.PM.IMPN ---
Subjective Subjective Date of Service: 09/11/21 Interval History: Feels tired, concerned about generalized weakness and mild tachycardia with activity, telemetry showed atrial fibrillation with few episodes of RVR, patient denies chest pain, no palpitation, is very anxious and wants to be discharged home today. Review of Systems Review of Systems: Yes all other systems are reviewed and are negative Physical Exam Vital Signs: Vital Signs: Last Vital Signs Temp 98 F 09/11/21 11:52 Pulse 68 09/11/21 12:03 Resp 17 09/11/21 12:03 BP 122/88 09/11/21 11:52 Pulse Ox 95 09/11/21 11:52 O2 Del Method 09/11/21 11:52 O2 Flow Rate 3 09/08/21 07:52 BMI result Body Mass Index 28.0 Const: Other: General awake alert x3, no acute distress Neck? supple no JVD. CVS irregular rate rhythm Respiratory no respiratory distress, no wheeze, few basilar Crepitus at base Gastrointestinal abdomen soft, non tender, bowel sounds audible, no guarding , no rigidity. Extremities no edema. Neuro nonfocal ,moving all 4 extremity, speech clear. Skin no rash Psych appropriate affect/anxious Objective Data Active Medications Acetaminophen (Acetaminophen 325 Mg Tablet) 650 mg PO Q6H PRN PRN Reason: Pain, Mild (Pain Scale 1-3) Last Admin: 09/11/21 01:55 Dose: 650 mg Documented By: RADHA Al Hydroxide/Mg Hydroxide (Magnesium Hydrox/Alum Hydrox 30 Ml Oral.Susp) 30 ml PO Q4H PRN PRN Reason: Heartburn Last Admin: 09/01/21 14:02 Dose: 30 ml Documented By: WILMAN Albuterol Sulfate (Albuterol Sulfate 90 Mcg 8 Gm Inhaler) 2 puff INHALE Q4H PRN PRN Reason: Shortness Of Breath Last Admin: 09/01/21 20:05 Dose: 2 puff Documented By: MONY Albuterol Sulfate (Albuterol Sulfate 90 Mcg 8 Gm Inhaler) 2 puff INHALE RQID [facility] Last Admin: 09/11/21 11:43 Dose: 2 puff Documented By: TUAN Apixaban (Apixaban 5 Mg Tablet) 5 mg PO BID [facility] Last Admin: 09/11/21 10:05 Dose: 5 mg Documented By: LEEANN Benzonatate (Benzonatate 100 Mg Capsule) 100 mg PO TID PRN PRN Reason: cough Last Admin: 09/10/21 22:10 Dose: 100 mg Documented By: RADHA Bupropion HCl (Bupropion Hcl Xl 300 Mg Tab.Er.24h) 300 mg PO DAILY [facility] Last Admin: 09/11/21 10:05 Dose: 300 mg Documented By: LEEANN Bupropion HCl (Bupropion Hcl Xl 150 Mg Tab.Er.24h) 150 mg PO DAILY [facility] Last Admin: 09/11/21 10:05 Dose: 150 mg Documented By: LEEANN Digoxin (Digoxin 0.125 Mg Tablet) 0.125 mg PO DAILY [facility] Last Admin: 09/11/21 10:05 Dose: 0.125 mg Documented By: LEEANN Diltiazem HCl (Diltiazem Hcl Cd 240 Mg Cap.Er.Deg) 240 mg PO DAILY [facility]; Protocol Docusate Sodium (Docusate Sodium 100 Mg Capsule) 100 mg PO DAILY PRN PRN Reason: Constipation Last Admin: 09/08/21 21:43 Dose: 100 mg Documented By: YENY Fluticasone Propionate (Fluticasone Propionate 100 Mcg Blst.W.Dev) 2 puff INHALE RBID [facility] Last Admin: 09/11/21 08:13 Dose: 2 puff Documented By: DAYANA Hydrocodone Bit/Homatropine Methylb (Hydrocodone/Homat 5/1.5/5 Ml 5 Ml Syrup) 5 ml PO Q6H PRN PRN Reason: Cough Last Admin: 09/06/21 13:51 Dose: 5 ml Documented By: BARRETT Nafcillin Sodium 2 gm/ Sodium (Chloride) 100 mls @ 200 mls/hr IV Q4H [facility] Stop: 09/27/21 14:29 Last Infusion: 09/11/21 14:42 Dose: 0 mls/hr Documented By: LEEANN Lamotrigine (Lamotrigine 25 Mg Tablet) 50 mg PO BEDTIME [facility] Last Admin: 09/10/21 22:10 Dose: 50 mg Documented By: RADHA Lamotrigine (Lamotrigine 100 Mg Tablet) 200 mg PO DAILY [facility] Last Admin: 09/11/21 10:04 Dose: 200 mg Documented By: LEEANN Lidocaine/Diphenhydr/Alum/Mg/Simeth (Mag&Al/Sim/Diphenhyd/Lidocaine 10 Ml Oral.Susp) 10 ml PO Q6H [facility]; Protocol Stop: 09/13/21 10:59 Last Admin: 09/11/21 10:17 Dose: Not Given Documented By: LEEANN Non-Admin Reason: Patient Refused Montelukast Sodium (Montelukast Sodium 10 Mg Tablet) 10 mg PO DAILY [facility] Last Admin: 09/11/21 10:04 Dose: 10 mg Documented By: LEEANN Multi-Ingred Medicated Throat [place] (Throat [place], Medicated 20 Ml Bottle) 1 spray MUCOUS MEM Q2H PRN PRN Reason: Sore Throat Last Admin: 08/31/21 15:36 Dose: 1 spray Documented By: WILMAN Omeprazole (Omeprazole 20 Mg Capsule.Dr) 20 mg PO DAILY@0630 [facility] Last Admin: 09/11/21 05:28 Dose: 20 mg Documented By: RADHA Ondansetron HCl (Ondansetron Hcl 4 Mg/2 Ml Vial) 4 mg IVPUSH Q8H PRN PRN Reason: Nausea and Vomiting Last Admin: 09/01/21 17:49 Dose: 4 mg Documented By: WILMAN Oxybutynin Chloride (Oxybutynin Chloride Er 5 Mg Tab.Er.24) 10 mg PO DAILY [facility] Last Admin: 09/11/21 10:04 Dose: 10 mg Documented By: LEEANN Pharmacy Consult (Consult Rx Perform Med Rec) 1 each MISCELLANE ONCE PRN PRN Reason: Consult order Sodium Chloride (0.9 % Sodium Chloride Flush 3 Ml Syringe) 3 ml IVFLUSH QSHIFT [facility] Last Admin: 09/11/21 10:06 Dose: 3 ml Documented By: LEEANN Labs CBC & Chem 7: 09/09/21 07:13 09/09/21 07:13 Microbiology Microbiology Results: Microbiology 09/05/21 16:55 Gram Stain - Final Pleural Fluid Routine Culture - Final No growth after 2 days Anaerobic Culture - Final NO GROWTH AFTER 5 DAYS Assessment and Plan (1) Pleural effusion: Status: Acute (2) Acute respiratory failure with hypoxia: Status: Acute (3) MSSA bacteremia: Status: Acute (4) COVID-19 virus infection: Status: Acute (5) Pneumonia: Status: Acute (6) Atrial fibrillation, new onset: Status: Acute Plan 70-year-old female with history of hypertension, asthma, recent trip to [place] who presents to the emergency department with cough, muscle aches found to have COVID-19, pneumonia, rapid atrial fibrillation Acute respiratory failure with hypoxia - Related to bacterial superinfection of underlying COVID 19 Improved significantly currently on room air, finger oximetry 96% s/p iv remdesivir, IV Decadron, abx CT chest 09/02 showed large left-sided effusion with partial loculation and improvement in left lung collapse, s/p chest tube and chemical decortication completed chest tube removed today, repeat CXR 09/10 showed tiny stable pneumothorax adjust into the lateral left lower lung, stable small left pleural effusion, atelectasis/consolidation at the left lung base also stable sepsis secondary to MSSA bacteremia MSSA likely source skin versus lungs. Continue IV nafcillin x 4 weeks end day (09/27/21) Repeat blood culture 09/02 neg Resolved and chronic issues Diarrhea. resolved no further episode stool not collected for C diff, empirically placed on Flagyl , subsequently discontinued. Nonsustained V-tach asymptomatic , no recurrent episodes in last 24 hours, continue tele monitor hypokalemia resolved New onset Atrial fibrillation with rapid ventricular response triggered by viral infection Noted to have mild intermittent tachycardia remains in AFib, on Cardizem CD 180 mg daily , digoxin 0.125 mg daily, will increase dose of Cardizem to 240 mg for better blood pressure and heart rate control Will discuss current medication with Cardiology Continue Eliquis TSH, and magnesium within normal limits Oral thrush Resolved on likely related to antibiotics/Flovent will recommend to rinse mouth after steroid inhalers Status post po Diflucan Apthous stomatitis on Magic mouthwash swish and swallow for 10 days end date 09/13 Elevated cardiac enzymes Troponin elevated around 100 but flat,Likely secondary to demand HTN d/c norvasc while on cardizem , stable BP Asthma intermittent persistent,Continue Flovent, albuterol, no acute exacerbation Mood continue lamotrigine, Wellbutrin DVT ppx - Resume eliquis code status - full code DISPO likely for dc tomorrow Will require ongoing inpatient hospitalization due to bacteremia requiring frequent IV antibiotics nafcillin q.4 hours, healthcare social worker arranging for safe discharge with [facility] service Quality Stroke Does the patient have a stroke diagnosis?: No VTE Prior VTE?: No VTE Risk Level:: Medical - moderate - high VTE Device Contraindication: N/A - Device Ordered VTE Drug Contraindication: N/A - Med Ordered
[2021-09-11] MEDS: HYDROcodone/Homat 5/1.5/5 ML 5 ML SYRUP PO (19:53)
[2021-09-11] MEDS: lamoTRIgine 25 MG TABLET 50 MG PO (19:55)
[2021-09-12] MEDS: Nafcillin Sodium 2 GM in 0.9 % Sodium Chloride 100 ML IV ×3 (01:45→09:21)
[2021-09-12 03:15] VITALS: BP 136/79; PULSE 85; RESP 16; TEMP 36.7; O2SAT 94
[2021-09-12] MEDS: Omeprazole 20 MG CAPSULE.DR PO (05:27)
[2021-09-12] MEDS: Mag&Al/Sim/Diphenhyd/Lidocaine 10 ML ORAL.SUSP PO (05:27)
[2021-09-12 07:43] VITALS: BP 150/76; PULSE 70; RESP 20; TEMP 36.4; O2SAT 94
[2021-09-12] MEDS: Albuterol Sulfate 90 MCG 8 GM INHALER 2 PUFF INHALE (08:32)
[2021-09-12] MEDS: Fluticasone Propionate 100 MCG BLST.W.DEV 2 PUFF INHALE (08:32)
[2021-09-12 08:36] VITALS: PULSE 84; RESP 16
[2021-09-12 08:39] VITALS: PULSE 84; RESP 16
[2021-09-12] MEDS: dilTIAZem HCL CD 240 MG CAP.ER.DEG PO (09:22)
[2021-09-12] MEDS: 0.9 % Sodium Chloride Flush 3 ML SYRINGE IVFLUSH (09:22)
[2021-09-12] MEDS: lamoTRIgine 100 MG TABLET 200 MG PO (09:23)
[2021-09-12] MEDS: buPROPion HCl XL 300 MG TAB.ER.24H PO (09:23)
[2021-09-12] MEDS: buPROPion HCl XL 150 MG TAB.ER.24H PO (09:23)
[2021-09-12] MEDS: Apixaban 5 MG TABLET PO (09:23)
[2021-09-12] MEDS: Digoxin 0.125 MG TABLET PO (09:23)
[2021-09-12] MEDS: Montelukast Sodium 10 MG TABLET PO (09:23)
--- NOTE | 2021-09-12 10:26 | PM.DS ---
DS: Providers Provider Date of Service: 09/12/21 Date of admission: 08/24/21 13:49 Primary care physician: Eddie Messina MD Consults: 08/24/21 13:55 Consult to Cardiology Routine Consulting Provider: Van Jin Reason for consultation: new onset afib Has provider been notified: No 08/25/21 12:25 Consult to Infectious Diseases Routine Consulting Provider: Teresa Ring Reason for consultation: covid 19, bacteremia Has provider been notified: No 09/02/21 09:07 Consult to Pulmonology Routine Consulting Provider: Gerardo Coffey Reason for consultation: left lung collpase Has provider been notified: Yes DS: Diagnosis Discharge Diagnosis (1) Pleural effusion: Status: Acute (2) Acute respiratory failure with hypoxia: Status: Acute (3) MSSA bacteremia: Status: Acute (4) COVID-19 virus infection: Status: Acute (5) Pneumonia: Status: Acute (6) Atrial fibrillation, new onset: Status: Acute DS: Summary Hospital Course Hospital Course: HPI as per admitting provider This is a 70-year-old female who recently returned from [place] who presents to the emergency department with cough and body aches.? She returned from [place] on Thursday and immediately began subjective fever, diffuse body aches, cough and weakness.? Her son-in-law was on a trip with her began coughing and having sore throat on the trip.? Her cough is primarily dry with some intermittent dark phlegm.? She states that she was treated with a course of prednisone for cough she had prior to going on a trip but her cough had completely resolved until this past Thursday.? In the emergency department she was noted to be tachycardic, EKG was obtained and showed atrial fibrillation with rapid ventricular response.? Patient denies any known history of atrial fibrillation.? She received 2 doses of IV Cardizem but continued to be tachycardic.? Lab work revealed leukocytosis of 13.7.? CRP was elevated at 23.6, BNP 392, troponin 100.1, 107.9 and procalcitonin of 3.13.? She tested positive for COVID-19.? CTA was obtained and showed no evidence of pulmonary embolism but did show right basilar pneumonia.? She was treated with IV levofloxacin . Hospital course Acute respiratory failure with hypoxia related to bacterial superinfection of underlying COVID 19, and sepsis, patient treated with IV remdesivir, IV Decadron and IV antibiotic since blood cultures grew MSSA bacteremia likely source lungs versus skin patient was followed closely by Infectious Disease Dr. Ring initially patient was treated with Kefzol but developed diarrhea therefore empirically treated with Flagyl subsequently discontinued, stool not collected for C diff since patient diarrhea resolved within 24 hours, due to diarrhea antibiotic changed to IV nafcillin Q 4 hours end date 09/27/2021 repeat blood cultures are negative, echo showed no vegetation hospital course complicated by development of large left-sided effusion with partial loculation and left lung collapse, patient required chest tube placement and chemical decortication, chest tube has now been discontinued repeat chest x-ray is stable , patient has clinically improved currently oxygenating well on room air, therefore being discharged home on IV antibiotics PICC line has been placed and date of antibiotic is September 27 During hospital course patient also developed oral thrush and Apthous stomatitis? treated with PO Diflucan and Magic mouthwash with resolution of symptoms. On admission patient was also noted to have New onset Atrial fibrillation with rapid ventricular response likely triggered by viral infection patient initially treated with IV Cardizem drip subsequently transitioned to by mouth Cardizem,patient also required IV digoxin for better rate control, now blood pressure and heart rate is stable she is being discharged home on Cardizem CD 240 mg, digoxin 0.125 mg and Eliquis 5 mg b.i.d., patient noted to have an episode of nonsustained V-tach she remained asymptomatic her TSH and magnesium levels are within normal limits, echo showed no regional wall motion abnormality and her EF is 60-65%, she was noted to have elevated cardiac enzymes but flat likely secondary to demand with rapid ventricular response. Hypokalemia resolved HTN blood pressure is stable on diltiazem outpatient home medication Norvasc has been discontinued. Asthma intermittent persistent,Continue Flovent, albuterol, no acute exacerbation noted. Mood Disorder continue home dose of lamotrigine, and Wellbutrin. Time Spent with Patient Time attestation: Total time spent providing and/or coordinating discharge services: Discharge coordination time: Greater than 30 minutes Quality: Safe Use of Opioids Does Pt have an Active Cancer Diagnosis on the Problem List?: No Quality: Stroke Does the patient have a stroke diagnosis?: No Physical Exam Vital Signs: Vital Signs: Last Vital Signs Temp 97.6 F 09/12/21 07:43 Pulse 84 09/12/21 08:39 Resp 16 09/12/21 08:39 BP 150/76 H 09/12/21 07:43 Pulse Ox 94 09/12/21 07:43 O2 Del Method 09/12/21 07:43 O2 Flow Rate 3 09/08/21 07:52 BMI result Body Mass Index 28.0 Const: Other: General awake alert x3, no acute distress Neck? supple no JVD. CVS irregular rate rhythm Respiratory no respiratory distress, no wheeze, few basilar Crepitus at base Gastrointestinal abdomen soft, non tender, bowel sounds audible, no guarding , no rigidity. Extremities no edema. Neuro nonfocal ,moving all 4 extremity, speech clear. Skin no rash Psych appropriate affect/anxious Discharge Plan Discharge Patient Disposition: Home Health Service Discharge Diagnosis: Acute respiratory failure with hypoxia COVID-19 Sepsis secondary to MSSA bacteremia Diarrhea Nonsustained V-tach Hypokalemia New onset atrial fibrillation Oral thrush Apthous stomatitis Referrals: [facility] [Other] - 1 Week ([facility] will provide Medication, IV ABX: Nafcillin, and infusion supplies) [facility] [Outside] - 1 Week Eddie Messina MD [Primary Care Provider] - 1 Week Shanna Laws MD [Physician] - 3 Weeks Discharge Medications: New benzonatate 100 mg Capsule 100 mg PO TID PRN (Reason: cough) Qty: 20 0RF digoxin 125 mcg (0.125 mg) Tablet 0.125 mg PO DAILY Qty: 30 0RF diltiazem HCl [Cardizem CD] 240 mg capsule,extended release 24hr 240 mg PO DAILY Qty: 30 0RF Eliquis 5 mg Tablet 5 mg PO BID Qty: 60 0RF nafcillin 2 gram recon soln 2 g IV Q4H Qty: 90 0RF Continued pantoprazole 40 mg tablet,delayed release (DR/EC) 40 mg PO DAILY@0630 bupropion HCl [Wellbutrin SR] 200 mg tablet sustained-release 12 hr 200 mg PO BID lamotrigine 25 mg tablet 50 mg PO BEDTIME montelukast 10 mg tablet 10 mg PO DAILY lamotrigine 200 mg tablet 200 mg PO DAILY oxybutynin chloride 10 mg tablet extended release 24hr 10 mg PO DAILY albuterol sulfate 90 mcg/actuation HFA aerosol inhaler 2 puff inhalation Q4-6H PRN (Reason: Shortness Of Breath) Flovent HFA 110 mcg/actuation HFA aerosol inhaler 2 puff inhalation BID Discontinued amlodipine 2.5 mg tablet 2.5 mg PO DAILY celecoxib 200 mg capsule 200 mg PO DAILY Discharge Orders: Discharge Order (Routine); Ordered 09/12/21 Ordered By: Destiny Jane Diet: Advance to usual diet Activity on Discharge: As tolerated Stand Alone Forms: Patient Portal Discharge page Care Plan Goals: Complete resolution of symptoms Complete antibiotics as prescribed Return to [facility] room with any worsening symptoms of shortness of breath, high-grade fever chest pain. Fever being discharged home on IV nafcillin 2 g Q 4 hours end date 09/27/21 Follow-up with marketing operations consultant Dr. Coffey in 1-2 weeks Health Concerns: Acute respiratory failure with hypoxia COVID-19 Sepsis secondary to MSSA bacteremia Diarrhea Nonsustained V-tach Hypokalemia New onset atrial fibrillation Oral thrush Apthous stomatitis Plan of Treatment: Follow-up with your primary care provider as needed Continue nafcillin until 09/27/2021, after that time the visiting nurse may pull your PICC line, that was placed on 09/09/21 Assessment: See discharge summary Discharge Date/Time: 09/12/21 11:45
--- NOTE | 2021-09-12 11:47 | MHC.CM.PN ---
Patient is discharged home today with IV ABX. [facility] will provide home care services. [facility] is providing Medication and supplies. The patients provided transportation home.
== END 2021-09-12 11:45 | disposition home health service (06) | DRG 871 ==
LOC: HO.ED 11:27 → HO.EDOVER 13:58 → HO.IMC 08-27 19:24
PROVIDERS: Internal Medicine; Internal Medicine Pulmonary Disease; Nurse Practitioner Acute Care; Physician Assistant; Admitting Provider Physician Assistant Medical; Emergency Provider Emergency Medicine; PCP Internal Medicine; Visit Provider Hospitalist
DX: A41.01 Sepsis due to Methicillin susceptible Staphylococcus aureus (principal); J12.82 Pneumonia due to coronavirus disease 2019; J96.01 Acute respiratory failure with hypoxia; U07.1 COVID-19; J15.211 Pneumonia due to Methicillin susceptible Staphylococcus aureus; B37.0 Candidal stomatitis; J91.8 Pleural effusion in other conditions classified elsewhere; I47.1 Supraventricular tachycardia; K52.1 Toxic gastroenteritis and colitis; I48.91 Unspecified atrial fibrillation; F39 Unspecified mood [affective] disorder; K12.0 Recurrent oral aphthae; I10 Essential (primary) hypertension; J45.20 Mild intermittent asthma, uncomplicated; T36.95XA Adverse effect of unspecified systemic antibiotic, initial encounter; Z87.891 Personal history of nicotine dependence; Z96.643 Presence of artificial hip joint, bilateral; Z98.84 Bariatric surgery status; Z79.01 Long term (current) use of anticoagulants; Z79.51 Long term (current) use of inhaled steroids; Z79.899 Other long term (current) drug therapy
CPT/HCPCS: 32551; 36415; 36573; 70450; 71045; 71250; 71275; 80048; 80076; 80202; 82042; 82150; 82565; 82728; 82945; 83605; 83615; 83735; 83880; 84145; 84157; 84443; 84484; 85025; 85027; 85379; 85610; 85730; 86140; 87040; 87071; 87073; 87077; 87147; 87186; 87205; 87635; 87640; 87641; 89051; 93005; 93306; 94664; 97116; 97162; 99285; C1729; C1751; J0248; J0456; J0690; J0696; J1100; J1160; J1650; J1956; J2270; J2405; J2997; J3370; Q9967

== ENCOUNTER 2021-09-16 13:52 | Outpatient (REF) | payer MEDICARE, SELFPAY ==
[2021-09-16 17:02] LABS: Blood Urea Nitrogen 7 mg/dL (9-16); Estimated Glomerular Filt Rate > 60
[2021-09-16 17:14] LABS: Basophils Absolute Auto 0.1 X10*3/uL (0.0-0.2); Basophils Percent Auto 0.9 % (0-2); Eosinophils Absolute Auto 0.1 X10*3/uL (0.0-0.4); Eosinophils Percent Auto 1.6 % (0-4); Hematocrit 35.3 % (37.0-47.0); Hemoglobin 10.9 g/dl (12.0-16.0); Imm Gran Abs Auto 0.04 X10*3/uL (0.00-0.03); Imm Gran Pct Auto 0.6 % (0.0-0.4); Lymphocytes Absolute Auto 1.9 X10*3/uL (1.2-4.9); Lymphocytes Percent Auto 27.3 % (20-40); MANUAL DIFF FLAG NO; Mean Corpuscular HGB Conc 30.9 g/dl (31.0-35.0); Mean Corpuscular Hemoglobin 25.5 pg (27.0-33.0); Mean Corpuscular Volume 82.7 fL (80.0-98.0); Mean Platelet Volume 10.2 fL (9.4-12.3); Monocytes Absolute Auto 0.6 X10*3/uL (0.1-1.2); Neutrophils Absolute Auto 4.2 x10*3/uL (2.0-8.3); Neutrophils Percent Auto 60.6 % (45-73); Platelet Count 302 X10*3/uL (160-400); Red Blood Count 4.27 X10*6/uL (4.20-5.50); Red Cell Distribution Width 18.2 % (11.0-16.0); White Blood Count 6.9 X10*3/uL (4.8-10.8)
== END 2021-09-16 13:53 | disposition home or self-care (01) ==
LOC: HO.HVNA 13:52
PROVIDERS: Visit Provider Internal Medicine
DX: J90 Pleural effusion, not elsewhere classified (principal); R78.81 Bacteremia
CPT/HCPCS: 36415; 82565; 84520; 85025

== ENCOUNTER 2021-09-23 16:56 | Outpatient (REF) | payer MEDICARE, SELFPAY ==
[2021-09-23 16:59] LABS: MANUAL DIFF FLAG NO
[2021-09-23 17:15] LABS: Basophils Absolute Auto 0.1 X10*3/uL (0.0-0.2); Eosinophils Absolute Auto 0.1 X10*3/uL (0.0-0.4); Eosinophils Percent Auto 1.1 % (0-4); Hematocrit 34.3 % (37.0-47.0); Hemoglobin 10.6 g/dl (12.0-16.0); Imm Gran Abs Auto 0.03 X10*3/uL (0.00-0.03); Imm Gran Pct Auto 0.4 % (0.0-0.4); Lymphocytes Absolute Auto 2.4 X10*3/uL (1.2-4.9); Lymphocytes Percent Auto 34.3 % (20-40); Mean Corpuscular HGB Conc 30.9 g/dl (31.0-35.0); Mean Corpuscular Hemoglobin 26.3 pg (27.0-33.0); Mean Corpuscular Volume 85.1 fL (80.0-98.0); Mean Platelet Volume 9.8 fL (9.4-12.3); Monocytes Absolute Auto 0.7 X10*3/uL (0.1-1.2); Monocytes Percent Auto 9.2 % (2-11); Neutrophils Absolute Auto 3.8 x10*3/uL (2.0-8.3); Platelet Count 418 X10*3/uL (160-400); Red Blood Count 4.03 X10*6/uL (4.20-5.50); Red Cell Distribution Width 19.5 % (11.0-16.0); White Blood Count 7.1 X10*3/uL (4.8-10.8)
== END 2021-09-23 16:57 | disposition home or self-care (01) ==
LOC: HO.HVNA 16:56
PROVIDERS: Visit Provider Internal Medicine
DX: A41.9 Sepsis, unspecified organism (principal); Z79.2 Long term (current) use of antibiotics
CPT/HCPCS: 36415; 82310; 82565; 84520; 85025

== ENCOUNTER 2021-09-30 14:10 | Outpatient (REF) | payer MEDICARE, SELFPAY | END 2021-09-30 14:11 | disposition home or self-care (01) | LOC: HO.LAB 14:10 | PROVIDERS: PCP Internal Medicine; Visit Provider Internal Medicine | DX: R78.81 Bacteremia (principal); B95.61 Methicillin susceptible Staphylococcus aureus infection as the cause of diseases classified elsewhere | CPT/HCPCS: 87040; 99212 ==

== ENCOUNTER → 2021-10-11 10:10 | Outpatient (BNVA) | payer MEDICARE, SELFPAY | PROVIDERS: PCP Internal Medicine; Visit Provider Internal Medicine Pulmonary Disease | DX: J90 Pleural effusion, not elsewhere classified (principal); J15.211 Pneumonia due to Methicillin susceptible Staphylococcus aureus; U09.9 Post COVID-19 condition, unspecified | CPT/HCPCS: 99212 ==

== ENCOUNTER 2021-10-15 01:48 | Emergency (ER) | payer MEDICARE, SELFPAY ==
--- NOTE | ~2021-10-15 | CT_ITS ---
EXAMINATION: NONCONTRAST HEAD CT NONCONTRAST CERVICAL SPINE CT INDICATION INFORMATION: Fall, pain COMPARISON: 08/27/2021 TECHNIQUE: Separate noncontrast CT examinations of the head and cervical spine were performed. Coronal head CT images and coronal and sagittal cervical spine images were created at the technologist workstation. DLP: 867 mGy-cm DOSE LOWERING TECHNIQUES: This CT examination was performed using dose optimization techniques as appropriate, variously including the following: - Automated exposure control - Adjustment of mA and/or kV according to patient size (this includes techniques or standardized protocols for targeted exams were dose is matched to indication/reason for exam; i.e. extremities or head) - Use of iterative reconstruction technique FINDINGS: Head: There is no evidence of acute intracranial hemorrhage or territorial infarction. No abnormal mass-effect or midline shift is seen. Fox to white matter differentiation is well preserved. No extra-axial fluid collections are identified. The ventricles are normal in size. There is mild periventricular white matter hypoattenuation consistent with chronic small vessel ischemic disease. Mild volume loss is noted. The osseous structures and soft tissues are normal. The mastoid air cells and visualized portions of the paranasal sinuses are well-aerated. Cervical spine: There is anatomic alignment of the vertebral bodies and posterior elements. Vertebral body heights are maintained. There is disc space narrowing and endplate osteophyte formation throughout the mid and lower cervical spine. There is moderate to severe bilateral facet arthropathy, left-sided greater than right. There is degenerative change at the atlantodens articulation. No evidence of acute fracture. No prevertebral soft tissue swelling. Visualized portions of the lung apices are unremarkable. The thyroid gland is unremarkable. CT/CT cervical spine wo IV con IMPRESSION: No acute findings identified in the head or cervical spine. Chronic appearing and degenerative changes as noted above.
--- NOTE | ~2021-10-15 | XR_ITS ---
EXAMINATION: XR CHEST CLINICAL INFORMATION: Cough COMPARISON: 09/10/2021 TECHNIQUE: Frontal view of the chest was obtained. FINDINGS: Lung volumes are symmetric. Left basilar aeration has improved compared to prior. Residual retrocardiac opacity may reflect atelectasis. Linear atelectasis versus scarring also noted at the left base. Trace left pleural effusion. No evidence of pneumothorax. Possible trace left pleural effusion. The cardiomediastinal contour is unremarkable. No acute osseous findings are seen. XR/XR chest 1V IMPRESSION: Interval improvement in left basilar aeration since 09/10/2021. Residual retrocardiac opacity may reflect atelectasis. Trace left pleural effusion.
[2021-10-15 02:41] VITALS: BP 125/83; PULSE 80; RESP 18; TEMP 36.8; O2SAT 99; BMI 24.1
[2021-10-15 03:50] VITALS: BP 145/86; PULSE 68; RESP 18; TEMP 36.7; O2SAT 95
--- NOTE | 2021-10-15 04:04 | ECG_ITS ---
Test Reason : fall Blood Pressure : / mmHG Vent. Rate : 068 BPM Atrial Rate : 000 BPM P-R Int : 000 ms QRS Dur : 094 ms QT Int : 366 ms P-R-T Axes : 000 -13 158 degrees QTc Int : [address] & T wave abnormality, consider lateral ischemia Abnormal ECG When compared with ECG of 24-AUG-2021 10:49, Vent. rate has decreased BY 38 BPM QRS duration has decreased Non-specific change in ST segment in Anterior leads Nonspecific T wave abnormality now evident in Inferior leads Nonspecific T wave abnormality now evident in Anterior leads Referred By: Katie Canela Electronically Signed By:RAJESH LUNA
[2021-10-15 05:08] VITALS: BP 138/75; PULSE 71; RESP 18
--- NOTE | 2021-10-15 05:22 | ED_ITS ---
HPI - Fall General Chief Complaint: Wound/Laceration Stated Complaint: dizzy, fall Time Seen by Provider: 10/15/21 04:03 Source: patient Mode of arrival: ambulatory History of Present Illness HPI Narrative: 70-year-old female with atrial fibrillation and on chronic anticoagulation presents after she was out in her living room without the lights on and bent over and subsequently lost her balance and fell forward striking her head against the wall. She denies loss conscious but needs to be evaluated for laceration to the scalp. Related Data Home Medications Medication Instructions Recorded Confirmed bupropion HCl 200 mg tablet,12 hr 200 mg PO BID 01/11/20 08/24/21 sustained-release (Wellbutrin SR) albuterol sulfate 90 mcg/actuation 2 puff inhalation Q4-6H PRN 12/05/20 08/24/21 aerosol inhaler Shortness Of Breath fluticasone propionate 110 2 puff inhalation BID 12/05/20 08/24/21 mcg/actuation HFA aerosol inhaler (Flovent HFA) lamotrigine 200 mg tablet 200 mg PO DAILY 12/05/20 08/24/21 montelukast 10 mg tablet 10 mg PO DAILY 12/05/20 08/24/21 oxybutynin chloride 10 mg 10 mg PO DAILY 12/05/20 08/24/21 tablet,extended release 24 hr lamotrigine 25 mg tablet 50 mg PO BEDTIME 06/07/21 08/24/21 pantoprazole 40 mg tablet,delayed 40 mg PO DAILY@0630 08/24/21 08/24/21 release estradiol 0.01% (0.1 mg/gram) 1 g vaginal 3XW 10/11/21 vaginal cream Previous Rx's Medication Instructions Recorded benzonatate 100 mg capsule 100 mg PO TID PRN cough #20 caps 09/11/21 digoxin 125 mcg (0.125 mg) tablet 0.125 mg PO DAILY #30 tabs 09/11/21 diltiazem HCl 240 mg 240 mg PO DAILY #30 caps 09/11/21 capsule,extended release 24 hr (Cardizem CD) apixaban 5 mg tablet (Eliquis) 5 mg PO BID #60 tabs 09/12/21 nitrofurantoin 100 mg PO Q12H 5 days #10 caps 10/15/21 monohydrate/macrocrystals 100 mg capsule (Macrobid) Allergies Allergy/AdvReac Type Severity Reaction Status Date / Time No Known Allergies Allergy Verified 10/11/21 10:27 [No Known Allergies*] Review of Systems Review of Systems: Pertinent positives and negatives as stated in HPI 10 point review of systems is otherwise negative. [facility] Past Medical History Source: nursing notes reviewed Medical History Asthma Atrial fibrillation, new onset Hypertension Loculated pleural effusion MSSA bacteremia UTI (urinary tract infection) Surgical History History of total left hip arthroplasty History of total right hip arthroplasty S/P laparoscopic sleeve gastrectomy Social History Social History Household Members: Spouse Household Members Other:: Danny Housing: House Do you presently have visiting nurse or other home services: No Alcohol intake: never Patient Tobacco Use Status: Former Tobacco user Advance Directives: No Advance Directives Information Provided: Yes service: No 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al status: retired 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: Right Handed Physical Exam Vital Signs: Vital Signs: Last Vital Signs Temp 98.0 F 10/15/21 03:50 Pulse 80 10/15/21 06:03 Resp 18 10/15/21 06:03 BP 156/85 H 10/15/21 06:03 Pulse Ox 99 10/15/21 06:03 O2 Del Method 10/15/21 06:03 BMI result Body Mass Index 24.1 VITAL SIGNS: Reviewed. GENERAL: Well developed, well nourished, in no acute distress. HEAD: Normocephalic/3 cm laceration to the scalp that is currently hemostatic EYES: PERRLA, EOMI EARS: Ext canals without abnormality OROPHARYNX: no oral lesions noted, posterior pharynx clear NECK: Supple, no adenopathy LUNGS: Normal breath sounds. No adventitious sounds or accessory muscle use. SpO2<95> CARDIOVASCULAR: Regular rate and rhythm without noted murmurs, no JVD or lower extremity edema. ABDOMEN: Soft, non-tender, non-distended with bowel sounds. MUSCULOSKELETAL: No tenderness, deformities, or effusions noted on gross inspection. EXTREMITIES: No cyanosis, clubbing or edema. SKIN: Inspection of the skin reveals no rashes NEUROLOGIC: Alert and oriented x 4. Strength and sensation to light touch were grossly intact x 4. Course Course Course Narrative: 70-year-old female with history and clinical presentation consistent with mechanical fall resulting in scalp laceration. After review of all investigations patient is noted to have UTI which may have contributed to unsteadiness the patient is currently on medication for this. However, there are no other acute findings and all results were discussed with patient bedside she was discharged home in stable condition. Procedures Laceration Laceration 1: Site: scalp Size (cm): 3 Description: linear Depth: simple, single layer Pre-repair: wound explored, irrigated extensively and deep structures intact Skin layer closed with: other (Stable) Number of sutures: 3 MDM - Fall Lab Data Result diagrams: 10/15/21 05:32 10/15/21 05:32 Labs: Lab Results 10/15/21 10/15/21 10/15/21 Range/Units 05:15 05:32 05:32 WBC 7.9 (4.8-10.8) X10*3/uL RBC 4.22 (4.20-5.50) X10*6/uL Hgb 11.2 L (12.0-16.0) g/dl Hct 36.7 L (37.0-47.0) % MCV 87.0 (80.0-98.0) fL MCH 26.5 L (27.0-33.0) pg MCHC 30.5 L (31.0-35.0) g/dl RDW 19.1 H (11.0-16.0) % Plt Count 309 D (160-400) X10*3/uL MPV 9.2 L (9.4-12.3) fL Immature Gran % (Auto) 0.6 H (0.0-0.4) % Neut % (Auto) 60.1 (45-73) % Lymph % (Auto) 29.8 (20-40) % [place]ett % (Auto) 6.8 (2-11) % Eos % (Auto) 1.8 (0-4) % Baso % (Auto) 0.9 (0-2) % Lymph # (Auto) 2.4 (1.2-4.9) X10*3/uL [place]ett # (Auto) 0.5 (0.1-1.2) X10*3/uL Eos # (Auto) 0.1 (0.0-0.4) X10*3/uL Baso # (Auto) 0.1 (0.0-0.2) X10*3/uL Abs Immat Gran (auto) 0.05 H (0.00-0.03) X10*3/uL Absolute Neuts (auto) 4.8 (2.0-8.3) x10*3/uL Absolute Nucleated RBC 0.000 (0.0-0.012) X10*3/uL Nucleated RBC % (auto) 0.0 (0.0-0.2) /100WBC PT 15.0 H (10.0-13.1) SEC INR 1.3 H (0.9-1.1) Sodium (135-145) mmol/L Potassium (3.3-5.1) mmol/L Chloride (96-108) mmol/L Carbon Dioxide (22-29) mmol/L Anion Gap (12-20) BUN (9-16) mg/dL Creatinine (0.5-1.4) mg/dL Estim Creat Clear Calc Estimated GFR Random Glucose (60-115) mg/dL Lactic Acid (0.5-2.0) mmol/L Calcium (8.4-10.2) mg/dL Total Bilirubin (0.0-1.0) mg/dL AST (5-31) U/L ALT (0-31) U/L Alkaline Phosphatase (39-117) U/L Troponin I High Sens (<3.5-17.0) ng/L B-Natriuretic Peptide (<100) pg/mL Total Protein (6.5-8.0) g/dL Albumin (3.5-5.0) g/dL Urine Color Yellow Urine Appearance Clear Urine pH 6.0 (5.0-9.0) Ur Specific [place] 1.010 (1.005-1.025) Urine Protein Negative (Neg-Trace) mg/dL Urine Glucose (UA) Negative (Negative) mg/dL Urine Ketones Negative (Negative) mg/dL Urine Blood Negative (Negative) Urine Nitrite Negative (Negative) Ur Leukocyte Esterase Moderate (2+) H (Negative) Urine RBC 0-2 (0-2) /HPF Urine WBC 11-20 H (0-5) /HPF Ur Squamous Epith Cells 0-2 (0-2) /HPF Urine Bacteria None Seen (None Seen) Hyaline Casts 0-2 (0-2) /LPF 10/15/21 10/15/21 10/15/21 Range/Units 05:32 05:32 05:32 WBC (4.8-10.8) X10*3/uL RBC (4.20-5.50) X10*6/uL Hgb (12.0-16.0) g/dl Hct (37.0-47.0) % MCV (80.0-98.0) fL MCH (27.0-33.0) pg MCHC (31.0-35.0) g/dl RDW (11.0-16.0) % Plt Count (160-400) X10*3/uL MPV (9.4-12.3) fL Immature Gran % (Auto) (0.0-0.4) % Neut % (Auto) (45-73) % Lymph % (Auto) (20-40) % [place]ett % (Auto) (2-11) % Eos % (Auto) (0-4) % Baso % (Auto) (0-2) % Lymph # (Auto) (1.2-4.9) X10*3/uL [place] # (Auto) (0.1-1.2) X10*3/uL Eos # (Auto) (0.0-0.4) X10*3/uL Baso # (Auto) (0.0-0.2) X10*3/uL Abs Immat Gran (auto) (0.00-0.03) X10*3/uL Absolute Neuts (auto) (2.0-8.3) x10*3/uL Absolute Nucleated RBC (0.0-0.012) X10*3/uL Nucleated RBC % (auto) (0.0-0.2) /100WBC PT (10.0-13.1) SEC INR (0.9-1.1) Sodium 141 (135-145) mmol/L Potassium 3.8 (3.3-5.1) mmol/L Chloride 107 (96-108) mmol/L Carbon Dioxide 22 (22-29) mmol/L Anion Gap 16 (12-20) BUN 15 D (9-16) mg/dL Creatinine 0.70 (0.5-1.4) mg/dL Estim Creat Clear Calc 61.2 Estimated GFR > 60 Random Glucose 89 (60-115) mg/dL Lactic Acid 0.7 (0.5-2.0) mmol/L Calcium 9.2 D (8.4-10.2) mg/dL Total Bilirubin 0.5 (0.0-1.0) mg/dL AST 22 D (5-31) U/L ALT 17 (0-31) U/L Alkaline Phosphatase 93 (39-117) U/L Troponin I High Sens 5.3 D (<3.5-17.0) ng/L B-Natriuretic Peptide 226 H (<100) pg/mL Total Protein 7.0 D (6.5-8.0) g/dL Albumin 3.5 D (3.5-5.0) g/dL Urine Color Urine Appearance Urine pH (5.0-9.0) Ur Specific [place] (1.005-1.025) Urine Protein (Neg-Trace) mg/dL Urine Glucose (UA) (Negative) mg/dL Urine Ketones (Negative) mg/dL Urine Blood (Negative) Urine Nitrite (Negative) Ur Leukocyte Esterase (Negative) Urine RBC (0-2) /HPF Urine WBC (0-5) /HPF Ur Squamous Epith Cells (0-2) /HPF Urine Bacteria (None Seen) Hyaline Casts (0-2) /LPF ECG Data Attestation: I personally reviewed and interpreted this ECG as follows: Prior ECG tracings: available for review Interpretation: Atrial fibrillation, HR-60, no STEMI, QRS/QTC are within normal limits. Discharge Plan Discharge Clinical Impression: Fall, Acute UTI, Laceration of scalp Patient Disposition: Home, Self-Care Instructions: Laceration (ED), Fall Prevention for Older Adults (ED), Staple Care (ED) Additional Instructions: 1. Recommend [id number] Tylenol as needed for pain control. 2. Complete the entire course of antibiotics for your UTI, hold the dose of Macrobid for this morning since you received a dose here in the emergency room.. 3. Please return for removal of tisha and 7 days. You may wash your hair as usual, dry afterwards and use caution on combing your hair. 4. Follow-up with primary care provider for re-evaluation. Return to the ER for worsening symptoms. Prescriptions: New nitrofurantoin monohyd/m-cryst [Macrobid] 100 mg capsule 100 mg PO Q12H 5 Days Qty: 10 0RF Rx Instructions: must administer with a meal/food No Action pantoprazole 40 mg tablet,delayed release (DR/EC) 40 mg PO DAILY@0630 benzonatate 100 mg Capsule 100 mg PO TID PRN (Reason: cough) Qty: 20 0RF digoxin 125 mcg (0.125 mg) Tablet 0.125 mg PO DAILY Qty: 30 0RF diltiazem HCl [Cardizem CD] 240 mg capsule,extended release 24hr 240 mg PO DAILY Qty: 30 0RF Eliquis 5 mg Tablet 5 mg PO BID Qty: 60 0RF bupropion HCl [Wellbutrin SR] 200 mg tablet sustained-release 12 hr 200 mg PO BID lamotrigine 25 mg tablet 50 mg PO BEDTIME montelukast 10 mg tablet 10 mg PO DAILY lamotrigine 200 mg tablet 200 mg PO DAILY oxybutynin chloride 10 mg tablet extended release 24hr 10 mg PO DAILY albuterol sulfate 90 mcg/actuation HFA aerosol inhaler 2 puff inhalation Q4-6H PRN (Reason: Shortness Of Breath) Flovent HFA 110 mcg/actuation HFA aerosol inhaler 2 puff inhalation BID estradiol 0.01 % (0.1 mg/gram) cream 1 g vaginal 3XW Referrals: Eddie Messina MD [Primary Care Provider] -
[2021-10-15 05:24] LABS: Appearance Urine Clear; Color Urine Yellow; Glucose Urine UA Negative (Negative); Leukocyte Esterase Urine Moderate (2+) (Negative); Nitrite Urine Negative (Negative); Urine Blood Negative (Negative); Urine Ketones Negative (Negative); Urine Protein Negative (Neg-Trace)
[2021-10-15 05:28] LABS: Bacteria Urine None Seen (None Seen); Hyaline Casts Urine 0-2 /LPF (0-2); RBC Urine 0-2 /HPF (0-2); Squamous Epithelial Cell Urine 0-2 /HPF (0-2)
[2021-10-15 05:37] LABS: MANUAL DIFF FLAG NO
[2021-10-15 05:38] LABS: Basophils Absolute Auto 0.1 X10*3/uL (0.0-0.2); Basophils Percent Auto 0.9 % (0-2); Eosinophils Absolute Auto 0.1 X10*3/uL (0.0-0.4); Eosinophils Percent Auto 1.8 % (0-4); Hematocrit 36.7 % (37.0-47.0); Hemoglobin 11.2 g/dl (12.0-16.0); Imm Gran Abs Auto 0.05 X10*3/uL (0.00-0.03); Imm Gran Pct Auto 0.6 % (0.0-0.4); Lymphocytes Absolute Auto 2.4 X10*3/uL (1.2-4.9); Lymphocytes Percent Auto 29.8 % (20-40); Mean Corpuscular HGB Conc 30.5 g/dl (31.0-35.0); Mean Corpuscular Hemoglobin 26.5 pg (27.0-33.0); Mean Platelet Volume 9.2 fL (9.4-12.3); Monocytes Absolute Auto 0.5 X10*3/uL (0.1-1.2); Monocytes Percent Auto 6.8 % (2-11); Neutrophils Absolute Auto 4.8 x10*3/uL (2.0-8.3); Neutrophils Percent Auto 60.1 % (45-73); Platelet Count 309 X10*3/uL (160-400); Red Blood Count 4.22 X10*6/uL (4.20-5.50); Red Cell Distribution Width 19.1 % (11.0-16.0); White Blood Count 7.9 X10*3/uL (4.8-10.8)
[2021-10-15 05:43] LABS: INTERNATIONAL NORM RATIO 1.3 (0.9-1.1)
[2021-10-15 05:51] LABS: Lactic Acid 0.7 mmol/L (0.5-2.0)
[2021-10-15 06:03] VITALS: BP 156/85; PULSE 80; RESP 18; O2SAT 99
[2021-10-15 06:05] LABS: B Type Natriuretic Peptide 226 pg/mL (<100); Troponin-I High Sensitivity 5.3 ng/L (<3.5-17.0)
[2021-10-15 06:16] LABS: Alanine Aminotransferase 17 U/L (0-31); Albumin Level 3.5 g/dL (3.5-5.0); Alkaline Phosphatase 93 U/L (39-117); Anion Gap 16 (12-20); Aspartate Amino Transferase 22 U/L (5-31); Bilirubin Total 0.5 mg/dL (0.0-1.0); Blood Urea Nitrogen 15 mg/dL (9-16); Calcium 9.2 mg/dL (8.4-10.2); Carbon Dioxide 22 mmol/L (22-29); Chloride 107 mmol/L (96-108); Creatinine Clr Calc Pharmacy 61.2; Estimated Glomerular Filt Rate > 60; Glucose Random 89 mg/dL (60-115); Potassium 3.8 mmol/L (3.3-5.1); Sodium 141 mmol/L (135-145)
[2021-10-15] MEDS: Nitrofurantoin Monohyd/M-Cryst 100 MG CAPSULE PO (06:16)
[2021-10-15] MEDS: Diphth,Pertus(ACell),Tet Adult 0.5 ML SYRINGE IM (06:16)
== END 2021-10-15 07:05 | disposition home or self-care (01) ==
PROVIDERS: Emergency Provider Student in an Organized Health Care Education/Training Program; PCP Internal Medicine
DX: S01.01XA Laceration without foreign body of scalp, initial encounter (principal); N39.0 Urinary tract infection, site not specified; R06.02 Shortness of breath; R51.9 Headache, unspecified; M54.2 Cervicalgia; W01.0XXA Fall on same level from slipping, tripping and stumbling without subsequent striking against object, initial encounter; Y93.9 Activity, unspecified; Y92.9 Unspecified place or not applicable; Y99.9 Unspecified external cause status; Z79.899 Other long term (current) drug therapy; Z87.891 Personal history of nicotine dependence
CPT/HCPCS: 12001; 12002; 36415; 70450; 71045; 72125; 80053; 81001; 83605; 83880; 84484; 85025; 85610; 87040; 87086; 90471; 90715; 93005; 99284

== ENCOUNTER 2021-10-17 10:27 | Outpatient (REF) | payer MEDICARE, SELFPAY ==
--- NOTE | ~2021-10-17 | CT_ITS ---
EXAMINATION: CT CHEST WITHOUT CONTRAST CLINICAL INFORMATION: Pleural effusion. COMPARISON: Chest x-ray 10/15/2021. CT chest 09/08/2021. TECHNIQUE: Multidetector volumetric CT imaging of the chest was done. Axial MIP volume rendering provided. Sagittal and coronal reformatted images were obtained. This CT examination was performed using dose optimization techniques as appropriate, variously including the following: *Automated exposure control *Adjustment of mA and/or kV according to patient size (this includes techniques or standardized protocols for targeted exams where dose is matched to indication/reason for exam; i.e. 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 LUNGS: The lungs are well expanded with mild thickening of the left major and minor fissure. There is patchy airspace, chronic consolidation/atelectasis left lower lobe but much improved since the previous study. Prominent patchy reticulonodular changes left lower lobe are stable. There is a 3 mm likely intrabronchial nodule right middle lobe axial image 300/5 appears improved. Previously it was visualized on axial image 81/11. There is a 4 mm nodule along the right major fissure axial image 374/5. Not seen previously. Minimal atelectatic changes are seen in the right middle lobe. MEDIASTINUM: The thyroid lobes are symmetrical and normal. The central trachea and the bronchi are widely patent. Mild coronary artery calcification seen. There is no pericardial effusion. PLEURA: There is small left pleural effusion or pleural thickening. AXILLA: No lymphadenopathy. UPPER ABDOMEN: The visualized liver, spleen and adrenal glands are unremarkable. There is a punctate gallstone suspected. Postsurgical changes are seen along the greater curvature of the stomach, likely sleeve surgery. OSSEOUS STRUCTURES: There is mild scoliosis of the dorsal spine. CT/CT chest wo IV con IMPRESSION: Significant improvement in the patchy airspace consolidation/atelectasis in the right lower lobe. Moderate improvement in the left lower lobe consolidation/atelectasis. There is thickening of the left minor and major fissure with atelectatic changes or scarring right middle lobe, lingula and left lower lobe. There are pulmonary nodules, as described above. Some of these nodules were not seen previously due to larger consolidation. No abnormal mediastinal or axillary lymphadenopathy. Fleischner guidelines were followed.
== END 2021-10-17 10:28 | disposition home or self-care (01) ==
LOC: HO.CT 10:27
PROVIDERS: Visit Provider Internal Medicine Pulmonary Disease
DX: J90 Pleural effusion, not elsewhere classified (principal)
CPT/HCPCS: 71250

== ENCOUNTER → 2021-11-01 10:41 | Outpatient (BNVA) | payer MEDICARE, SELFPAY | PROVIDERS: PCP Internal Medicine; Visit Provider Internal Medicine Pulmonary Disease | DX: U09.9 Post COVID-19 condition, unspecified (principal); J15.211 Pneumonia due to Methicillin susceptible Staphylococcus aureus; J90 Pleural effusion, not elsewhere classified | CPT/HCPCS: 99212 ==

== ENCOUNTER → 2022-03-07 14:41 | Outpatient (BNVA) | payer MEDICARE, SELFPAY | PROVIDERS: PCP Internal Medicine; Visit Provider Internal Medicine Pulmonary Disease | DX: J90 Pleural effusion, not elsewhere classified (principal); R06.09 Other forms of dyspnea; R06.01 Orthopnea | CPT/HCPCS: 99212 ==

== ENCOUNTER 2022-03-18 09:06 | Outpatient (REF) | payer MEDICARE, SELFPAY ==
--- NOTE | ~2022-03-18 | CT_ITS ---
EXAMINATION: CT CHEST WITHOUT CONTRAST CLINICAL INFORMATION: Pleural effusion. COMPARISON: None. TECHNIQUE: Multidetector volumetric CT imaging of the chest was done. Axial MIP volume rendering provided. Sagittal and coronal reformatted images were obtained. This CT examination was performed using dose optimization techniques as appropriate, variously including the following: *Automated exposure control *Adjustment of mA and/or kV according to patient size (this includes techniques or standardized protocols for targeted exams where dose is matched to indication/reason for exam; i.e. 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 LUNGS: The lungs are well-expanded and clear of acute pneumonic process. There is mild thickening of bilateral major fissures. In addition, there are atelectatic changes in lingula and left lower lobe. There is 5 mm nodule right lower lobe adjacent to major fissure on axial image 362/5. Previously it measured 4 mm. Intrabronchial or nodule seen previously in the right middle lobe is not visualized at this time. MEDIASTINUM: The thyroid lobes are symmetrical and normal. The central trachea and bronchi are widely patent. Heart size and the great vessels are normal caliber. CORONARY ARTERY CALCIFICATION: Mild left coronary artery calcifications are visualized. PLEURA: There is no pleural effusion. No pleural mass or thickening. AXILLA: There are small shotty lymph nodes in left axilla. UPPER ABDOMEN: Unremarkable. OSSEOUS STRUCTURES: There is exaggerated thoracic kyphosis. The vertebral heights and alignment is normal. No aggressive lytic or sclerotic process seen. There are degenerative arthritic changes bilateral shoulder joints. CT/CT chest wo IV con IMPRESSION: Slight increase in the right middle lobe nodule adjacent to major fissure now measuring 5 mm compared to 4 mm previously. Right middle lobe intrabronchiolar nodule has resolved. Fleischner guidelines were followed.
== END 2022-03-18 09:07 | disposition home or self-care (01) ==
LOC: HO.CT 09:06
PROVIDERS: Visit Provider Internal Medicine Pulmonary Disease
DX: J90 Pleural effusion, not elsewhere classified (principal)
CPT/HCPCS: 71250

== ENCOUNTER 2022-04-18 17:34 | Emergency (ER) | payer MEDICARE, SELFPAY ==
--- NOTE | ~2022-04-18 | CT_ITS ---
EXAMINATION: CT head/brain wo IV con CLINICAL INFORMATION: Reason for Exam s/p fall COMPARISON: CT head without contrast 10/15/2021 TECHNIQUE: Contiguous axial imaging was performed from the skull base to vertex without intravenous contrast. Sagittal and coronal reformatted images were obtained. This CT examination was performed using dose optimization techniques as appropriate, variously including the following: * Automated exposure control * Adjustment of mA and/or kV according to patient size (this includes techniques or standardized protocols for targeted exams where dose is matched to indication/reason for exam; i.e. extremities or head) Use of iterative reconstruction technique DLP: 570.74 mGy-cm FINDINGS: No acute osseous or soft tissue abnormality. Skin tisha along the left parietal scalp. The mastoid air cells and visualized portions of the paranasal sinuses are well aerated. There is no evidence of acute intracranial hemorrhage or territorial infarction. No abnormal mass effect or midline shift is seen. Fox to white matter differentiation is well preserved. No extra-axial fluid collections are identified. No hydrocephalus. Proportional prominence of the ventricles and sulcal spaces is consistent with mild to moderate volume loss. Patchy periventricular and deep white matter hypoattenuation is consistent with mild small vessel ischemic changes. CT/CT head/brain wo IV con IMPRESSION: No acute intracranial abnormality including hemorrhage, mass effect, hydrocephalus, or acute territorial edematous infarction.
--- NOTE | ~2022-04-18 | XR_ITS ---
EXAMINATION: PORTABLE CHEST 1 VIEW CLINICAL INFORMATION: sob . COMPARISON: 10/15/2021. TECHNIQUE: Portable frontal view of the chest was obtained. FINDINGS: Lungs are well expanded. No superimposed focal infiltrate, effusion, edema, or pneumothorax with chronic appearing changes at the left lung base again noted. Cardiac silhouette within normal limits for size with a tortuous aorta. Extensive degenerative changes in the left shoulder with milder degenerative changes in the spine and contralateral right shoulder. Epigastric surgical clips noted. XR/XR chest 1V IMPRESSION: Chronic appearing changes similar to the 10/15/2021 study.
[2022-04-18 18:16] VITALS: BP 162/72; PULSE 71; RESP 18; TEMP 36.6; O2SAT 98; BMI 24.7
--- NOTE | 2022-04-18 18:20 | ECG_ITS ---
Test Reason : heat head Blood Pressure : / mmHG Vent. Rate : 060 BPM Atrial Rate : 060 BPM P-R Int : 194 ms QRS Dur : 106 ms QT Int : 412 ms P-R-T Axes : 084 -50 090 degrees QTc Int : 412 ms Normal sinus rhythm Left ventricular hypertrophy with repolarization abnormality ( R in aVL , Homar product ) Cannot rule out Septal infarct , age undetermined Abnormal ECG When compared with ECG of 15-OCT-2021 04:56, Sinus rhythm has replaced Atrial fibrillation T wave inversion less evident in Lateral leads Referred By: Generic ED Physician Electronically Signed By:JUDITH TRACY
[2022-04-18 19:18] LABS: MANUAL DIFF FLAG NO
[2022-04-18 19:20] LABS: Basophils Absolute Auto 0.1 X10*3/uL (0.0-0.2); Basophils Percent Auto 0.9 % (0-2); Eosinophils Absolute Auto 0.2 X10*3/uL (0.0-0.4); Eosinophils Percent Auto 2.4 % (0-4); Hematocrit 36.4 % (37.0-47.0); Hemoglobin 10.9 g/dl (12.0-16.0); Imm Gran Abs Auto 0.03 X10*3/uL (0.00-0.03); Imm Gran Pct Auto 0.3 % (0.0-0.4); Lymphocytes Absolute Auto 2.5 X10*3/uL (1.2-4.9); Lymphocytes Percent Auto 24.4 % (20-40); Mean Corpuscular HGB Conc 29.9 g/dl (31.0-35.0); Mean Corpuscular Hemoglobin 22.8 pg (27.0-33.0); Mean Corpuscular Volume 76.2 fL (80.0-98.0); Mean Platelet Volume 9.8 fL (9.4-12.3); Monocytes Percent Auto 9.6 % (2-11); Neutrophils Absolute Auto 6.3 x10*3/uL (2.0-8.3); Neutrophils Percent Auto 62.4 % (45-73); Platelet Count 299 X10*3/uL (160-400); Red Blood Count 4.78 X10*6/uL (4.20-5.50); Red Cell Distribution Width 17.2 % (11.0-16.0); White Blood Count 10.1 X10*3/uL (4.8-10.8)
[2022-04-18 19:24] VITALS: BP 172/63; PULSE 63; RESP 16; TEMP 36.7; O2SAT 98
--- NOTE | 2022-04-18 19:25 | MHC.EDTECH ---
pt was called to triage to do ekg ,covid swab and blood work ,vitals was re check .
[2022-04-18 19:34] LABS: Anion Gap 12 (12-20); Blood Urea Nitrogen 26 mg/dL (9-16); Calcium 9.6 mg/dL (8.4-10.2); Carbon Dioxide 27 mmol/L (22-29); Chloride 106 mmol/L (96-108); Creatinine Clr Calc Pharmacy 48.8; Estimated Glomerular Filt Rate > 60; Glucose Random 81 mg/dL (60-115); Potassium 4.9 mmol/L (3.3-5.1); Sodium 140 mmol/L (135-145)
[2022-04-18 23:23] VITALS: BP 146/68; PULSE 70; RESP 24; TEMP 36.6; O2SAT 97
--- NOTE | 2022-04-18 23:26 | ED_ITS ---
HPI - General Adult General Chief complaint: General Medical Stated complaint: hit head on car door, SOB Time Seen by Provider: 04/18/22 23:25 Source: patient Mode of arrival: ambulatory Limitations: no limitations History of Present Illness HPI narrative: Patient history of AFib on Eliquis was moving the stuffs from the car hit the car door on the left side of the head no loss of conscious no dizziness came with small laceration to left side of the head also patient has chronic lung disease post COVID. Saturating 98% on arrival Related Data Home Medications Medication Instructions Recorded Confirmed bupropion HCl 200 mg tablet,12 hr 200 mg PO BID 01/11/20 08/24/21 sustained-release (Wellbutrin SR) albuterol sulfate 90 mcg/actuation 2 puff inhalation Q4-6H PRN 12/05/20 08/24/21 aerosol inhaler Shortness Of Breath lamotrigine 200 mg tablet 200 mg PO DAILY 12/05/20 08/24/21 montelukast 10 mg tablet 10 mg PO DAILY 12/05/20 08/24/21 oxybutynin chloride 10 mg 10 mg PO DAILY 12/05/20 08/24/21 tablet,extended release 24 hr lamotrigine 25 mg tablet 50 mg PO BEDTIME 06/07/21 08/24/21 pantoprazole 40 mg tablet,delayed 40 mg PO DAILY@0630 08/24/21 08/24/21 release estradiol 0.01% (0.1 mg/gram) 1 g vaginal 3XW 10/11/21 vaginal cream Previous Rx's Medication Instructions Recorded benzonatate 100 mg capsule 100 mg PO TID PRN cough #20 caps 09/11/21 digoxin 125 mcg (0.125 mg) tablet 0.125 mg PO DAILY #30 tabs 09/11/21 diltiazem HCl 240 mg 240 mg PO DAILY #30 caps 09/11/21 capsule,extended release 24 hr (Cardizem CD) apixaban 5 mg tablet (Eliquis) 5 mg PO BID #60 tabs 09/12/21 nitrofurantoin 100 mg PO Q12H 5 days #10 caps 10/15/21 monohydrate/macrocrystals 100 mg capsule (Macrobid) furosemide 40 mg tablet 40 mg PO DAILY #7 tabs 03/07/22 Breo Ellipta 200 mcg-25 mcg/dose 1 inh inhalation DAILY 30 days #60 04/03/22 powder for inhalation (fluticasone ea furoate-vilanterol) albuterol sulfate 90 mcg/actuation 2 puff inhalation Q4-6H PRN 04/19/22 aerosol inhaler (ProAir HFA) shortness of breath or wheezing #8.5 grams Allergies Allergy/AdvReac Type Severity Reaction Status Date / Time No Known Allergies Allergy Verified 03/07/22 14:43 [No Known Allergies*] Review of Systems Review of Systems: Yes all other systems are reviewed and are negative [facility] Past Medical History Medical History Asthma Atrial fibrillation, new onset Hypertension Loculated pleural effusion MSSA bacteremia UTI (urinary tract infection) Surgical History History of total left hip arthroplasty History of total right hip arthroplasty S/P laparoscopic sleeve gastrectomy Social History Social History Household Members: Spouse Household Members Other:: Danny Housing: House Do you presently have visiting nurse or other home services: No Alcohol intake: former Patient Tobacco Use Status: Former Tobacco user Smoked in Last 30 Days: No Use of substances other than those prescribed or required for medical reasons: No Advance Directives: No Advance Directives Information Provided: No service: No 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al status: retired 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: Right Handed Physical Exam ED Vital Signs: Vital Signs - 24 hr 04/18/22 18:16 04/18/22 19:24 04/18/22 23:23 Temperature 98 F 98.0 F 97.9 F Pulse Rate 71 63 70 Respiratory Rate 18 16 24 H Blood Pressure 162/72 H 172/63 H 146/68 H Pulse Oximetry 98 98 97 Oxygen Delivery Method Room Air Room Air Room Air BMI result Body Mass Index 24.7 Appearance: Alert. Oriented X3. No acute distress. Eyes: PERRLA, No Nystagmus HEENT: Pharynx normal. Oral Mucosa moist 1.5 cm laceration left temporal area Neck: Normal inspection. Neck supple. CVS: Normal heart rate and rhythm. Pulses normal. Respiratory: No respiratory distress. Equal air entry bilateral, no wheezing/rales/rhonchi prolonged expiration Abdomen: Soft and nontender. Bowel sounds are present, no mass palpable, no CVA tenderness Skin: Skin warm and dry. Normal skin color. Normal skin turgor. Extremities: No lower extremity edema. No calf tenderness Neuro: Oriented X 3. No motor deficit. No sensory deficit.No cerebellar signs , cranial nerves II-XII intact Procedures Laceration Laceration 1: Site: scalp Side (If applicable): left Size (cm): 1.5 Description: linear Depth: simple, single layer Skin layer closed with: other (Tisha) Number of sutures: 4 Medical Decision Making Medical Decision Making [facility] Narrative: Patient with small laceration minor head injury CT scan of the head negative lungs clear to auscultation chest x-ray negative 4 tisha applied to the laceration Lab Data [facility] Lab Attestation statement: I reviewed the patient's lab results. 04/18/22 19:13 04/18/22 19:13 Labs: Lab Results 04/18/22 04/18/22 Range/Units 19:13 19:13 WBC 10.1 (4.8-10.8) X10*3/uL RBC 4.78 (4.20-5.50) X10*6/uL Hgb 10.9 L (12.0-16.0) g/dl Hct 36.4 L (37.0-47.0) % MCV 76.2 L (80.0-98.0) fL MCH 22.8 L (27.0-33.0) pg MCHC 29.9 L (31.0-35.0) g/dl RDW 17.2 H (11.0-16.0) % Plt Count 299 (160-400) X10*3/uL MPV 9.8 (9.4-12.3) fL Immature Gran % (Auto) 0.3 (0.0-0.4) % Neut % (Auto) 62.4 (45-73) % Lymph % (Auto) 24.4 (20-40) % [place] % (Auto) 9.6 (2-11) % Eos % (Auto) 2.4 (0-4) % Baso % (Auto) 0.9 (0-2) % Lymph # (Auto) 2.5 (1.2-4.9) X10*3/uL [place] # (Auto) 1.0 (0.1-1.2) X10*3/uL Eos # (Auto) 0.2 (0.0-0.4) X10*3/uL Baso # (Auto) 0.1 (0.0-0.2) X10*3/uL Abs Immat Gran (auto) 0.03 (0.00-0.03) X10*3/uL Absolute Neuts (auto) 6.3 (2.0-8.3) x10*3/uL Absolute Nucleated RBC 0.000 (0.0-0.012) X10*3/uL Nucleated RBC % (auto) 0.0 (0.0-0.2) /100WBC Sodium 140 (135-145) mmol/L Potassium 4.9 D (3.3-5.1) mmol/L Chloride 106 (96-108) mmol/L Carbon Dioxide 27 (22-29) mmol/L Anion Gap 12 (12-20) BUN 26 H (9-16) mg/dL Creatinine 0.91 (0.5-1.4) mg/dL Estim Creat Clear Calc 48.8 Estimated GFR > 60 Random Glucose 81 (60-115) mg/dL Calcium 9.6 (8.4-10.2) mg/dL Discharge Plan Discharge Clinical Impression: Minor closed head injury, Laceration of scalp Patient Disposition: Home, Self-Care Instructions: Laceration (ED), Head Injury (ED) Additional Instructions: Local care as advised Staple removal in 7-10 days Prescriptions: New albuterol sulfate [ProAir HFA] 90 mcg/actuation HFA aerosol inhaler 2 puff inhalation Q4-6H PRN (Reason: shortness of breath or wheezing) Qty: 8.5 0RF No Action fluticasone furoate-vilanterol [Breo Ellipta] 200-25 mcg/dose blister with device 1 inh inhalation DAILY 30 Days Qty: 60 6RF pantoprazole 40 mg tablet,delayed release (DR/EC) 40 mg PO DAILY@0630 benzonatate 100 mg Capsule 100 mg PO TID PRN (Reason: cough) Qty: 20 0RF digoxin 125 mcg (0.125 mg) Tablet 0.125 mg PO DAILY Qty: 30 0RF diltiazem HCl [Cardizem CD] 240 mg capsule,extended release 24hr 240 mg PO DAILY Qty: 30 0RF Eliquis 5 mg Tablet 5 mg PO BID Qty: 60 0RF nitrofurantoin monohyd/m-cryst [Macrobid] 100 mg capsule 100 mg PO Q12H 5 Days Qty: 10 0RF Rx Instructions: must administer with a meal/food bupropion HCl [Wellbutrin SR] 200 mg tablet sustained-release 12 hr 200 mg PO BID lamotrigine 25 mg tablet 50 mg PO BEDTIME furosemide 40 mg tablet 40 mg PO DAILY Qty: 7 0RF montelukast 10 mg tablet 10 mg PO DAILY lamotrigine 200 mg tablet 200 mg PO DAILY oxybutynin chloride 10 mg tablet extended release 24hr 10 mg PO DAILY albuterol sulfate 90 mcg/actuation HFA aerosol inhaler 2 puff inhalation Q4-6H PRN (Reason: Shortness Of Breath) estradiol 0.01 % (0.1 mg/gram) cream 1 g vaginal 3XW
[2022-04-21 05:46] LABS: COVID-19 Test Negative (Negative); IDNOW Serial# 16C4AD1C
== END 2022-04-19 00:53 | disposition home or self-care (01) ==
PROVIDERS: Emergency Provider Internal Medicine; PCP Internal Medicine
DX: S01.01XA Laceration without foreign body of scalp, initial encounter (principal); W22.09XA Striking against other stationary object, initial encounter; Y93.89 Activity, other specified; Y92.89 Other specified places as the place of occurrence of the external cause; Y99.9 Unspecified external cause status; I48.91 Unspecified atrial fibrillation; Z79.01 Long term (current) use of anticoagulants
CPT/HCPCS: 12001; 70450; 71045; 80048; 85025; 87635; 93005; 99284

== ENCOUNTER → 2022-05-07 12:55 | Outpatient (BNVA) | payer MEDICARE, SELFPAY | PROVIDERS: PCP Internal Medicine; Visit Provider Internal Medicine Pulmonary Disease | DX: U09.9 Post COVID-19 condition, unspecified (principal); J45.909 Unspecified asthma, uncomplicated; I10 Essential (primary) hypertension; Z71.84 Encounter for health counseling related to travel | CPT/HCPCS: 99212 ==

== ENCOUNTER 2022-05-16 09:59 | Outpatient (RCR) | payer MEDICARE, SELFPAY ==
[2022-05-23 09:50] VITALS: BP 126/64; BP 130/64
[2022-07-31 10:55] VITALS: BP 106/54; BP 126/60
[2022-08-05 11:59] VITALS: BP 120/65; BP 125/66
[2022-08-06 07:11] VITALS: BMI 25.2
--- NOTE | 2022-08-06 07:29 | MHC.PR.RE ---
[address] [phone] F: [phone] Pulmonary Rehabilitation Reassessment Shilpa Hartman is a 71 year old (F) who was referred to the Pulmonary Rehabilitation program by Gerardo Coffey. This patient who has a primary diagnosis of covid 19 has completed 3 sessions of the pulmonary rehabilitation program thus far with monitored exercise and education to optimize both physical and social performance, autonomy, increase strength and endurance, and control dypsnea. They were evaluated on 08/06/22. Reassessment Type: 90-day reassessment Topic Education/ Progress Progress Comments Education Using medications as directed Met. Pt uses medication as prescribed. Pt educated on diaphragmatic breathing techniques. Hypoxia Current oxygen Use: Room air Pt is not prescribed supplemental 02 at this time. Psychosocial PHQ-9 Score: 5 Pt verbalizes coping strategies and states she is feeling better after having pneumonia, and is happy to be back to pulmonary rehab. Activities of Daily Living Pt practices diaphragmatic breathing techniques to manage periods of shortness of breath. Pt recently was diagnosed with pneumonia after intake in May and has returned this last week. She states she is feeling much better, and able to continue rehab. Nutrition & Weight Management Current weight: 138 BMI: 25.2 Weight change: Weight Stable Goal Met Nutrition discussed with patient. Educated on the importance of protein intake and focusing on creating meals around at least one protein source. Weight stable. Tobacco Stages of Change: Tobacco Use: Cigerettes/Day: Any nicotine replacement: Any cessation medication: Smoking quit date: Smokeless tobacco use and amount: Pt is a 25 pack year former smoker. Pt quit in 1986. Medication Met, taking 100% of time Inhaled Medication Patient verbalizes correct technique of: MDI: DPI: SMI: NEBULIZER: Secretion Management Patient provides adequate return demonstration of: Controlled cough: Yes Hunter cough: Acapella/ PEP Device: No CPT: N/A Sputum management: Pt has strong effective cough. Exercise & Fitness Aerobic Exercise Frequency: Pt participates in aerobic activity 2X weekly Target heart range: Heart rate range: SpO2 Range: 92% and above. TUSHAR RPD: 3-4 Time (minutes): 31 minutes O2 use with exercise: Current HEP: TM L1.0 20 minute 2X weekly UBE L1.0 11 minute 2X weekly Recumbent 10 L1.0 2X weekly. Pt has returned and participated in pulmonary rehab for one week since being out with pneumonia since intake. Within the week patient has increased exercise time from 31 minutes 41 min. Great effort, and looking forward to increasing exercise met's, time, and levels moving forward. Center Administrator Review I have reviewed the outcome re-assessment and treatment plan. The treatment plan and goals support the patient's needs and abilities, and thereby recommend that the exercise plan be completed as documented. Special precautions or modifications to the treatment plan include:
[2022-08-07 10:55] VITALS: BP 110/66; BP 124/68
[2022-08-19 15:27] VITALS: BP 106/64; BP 118/74
[2022-08-21 12:41] VITALS: BP 128/72; BP 132/62
[2022-08-26 12:57] VITALS: BP 110/64; BP 110/70
[2022-09-03 08:50] VITALS: BMI 25.2
--- NOTE | 2022-09-03 08:52 | MHC.PR.RE ---
[address] [phone] F: [phone] Pulmonary Rehabilitation Reassessment Shilpa Hartman is a 71 year old (F) who was referred to the Pulmonary Rehabilitation program by Gerardo Coffey. This patient who has a primary diagnosis of covid 19 has completed 8 sessions of the pulmonary rehabilitation program thus far with monitored exercise and education to optimize both physical and social performance, autonomy, increase strength and endurance, and control dypsnea. They were evaluated on 09/03/22. Reassessment Type: 120-day reassessment Topic Education/ Progress Progress Comments Education Using medications as directed Met. Pt uses medication as prescribed. Pt educated on diaphragmatic breathing techniques. Hypoxia Current oxygen Use: Room air Pt is not prescribed supplemental 02 at this time. Psychosocial PHQ-9 Score: 5 Pt verbalizes coping strategies and states she is feeling better after having pneumonia, and is happy to be back to pulmonary rehab. Activities of Daily Living Pt practices diaphragmatic breathing techniques to manage periods of shortness of breath. Pt recently was diagnosed with pneumonia after intake in May and has returned this last week. She states she is feeling much better, and able to continue rehab. Nutrition & Weight Management Current weight: 138 BMI: 25.2 Weight change: Weight Stable Goal Met Nutrition discussed with patient. Educated on the importance of protein intake and focusing on creating meals around at least one protein source. Weight stable. Tobacco Stages of Change: Tobacco Use: Cigerettes/Day: Any nicotine replacement: Any cessation medication: Smoking quit date: Smokeless tobacco use and amount: Pt is a 25 pack year former smoker. Pt quit in 1986. Medication Met, taking 100% of time Inhaled Medication Patient verbalizes correct technique of: MDI: DPI: SMI: NEBULIZER: Secretion Management Patient provides adequate return demonstration of: Controlled cough: Yes Hunter cough: Acapella/ PEP Device: No CPT: N/A Sputum management: Pt has strong effective cough. Exercise & Fitness Aerobic Exercise Frequency: Pt participates in aerobic activity 2X weekly Target heart range: Heart rate range: SpO2 Range: 92% and above. TUSHAR RPD: 3-4 Time (minutes): 31 minutes O2 use with exercise: Current HEP: TM L1.0 20 minute 2X weekly UBE L1.0 11 minute 2X weekly Recumbent 10 L1.0 2X weekly. Pt has returned and participated in pulmonary rehab for one week since being out with pneumonia since intake. Within the week patient has increased exercise time from 31 minutes 41 min. Great effort, and looking forward to increasing exercise met's, time, and levels moving forward. Chemical Plant Worker Review I have reviewed the outcome re-assessment and treatment plan. The treatment plan and goals support the patient's needs and abilities, and thereby recommend that the exercise plan be completed as documented. Special precautions or modifications to the treatment plan include:
[2022-09-04 11:30] VITALS: BP 124/64; BP 140/64
== END 2023-03-20 10:31 | disposition home or self-care (01) ==
LOC: HO.PR 09:59
PROVIDERS: PCP Internal Medicine; Visit Provider Internal Medicine Pulmonary Disease
DX: U09.9 Post COVID-19 condition, unspecified (principal)
CPT/HCPCS: 94625

== ENCOUNTER 2022-05-23 22:55 | Emergency (ER) | payer MEDICARE, SELFPAY ==
--- NOTE | ~2022-05-23 | XR_ITS ---
EXAMINATION: XR SHOULDER, LEFT CLINICAL INFORMATION: Fall COMPARISON: None available. TECHNIQUE: Three views of the left shoulder. FINDINGS: No fracture or dislocation. The glenohumeral joint is aligned with severe narrowing of the joint space and flattening of the humeral head. Subchondral sclerosis and osteophyte formation. Moderate hypertrophic degenerative change of the acromioclavicular joint. The visualized lung is clear. The visualized ribs are intact. XR/XR shoulder LT min 2V IMPRESSION: No acute fracture or malalignment. Severe degenerative changes of the left shoulder.
--- NOTE | ~2022-05-23 | XR_ITS ---
EXAMINATION: XR PELVIS CLINICAL INFORMATION: Fall COMPARISON: 05/16/2020 TECHNIQUE: AP view of the pelvis. FINDINGS: There is a total right hip arthroplasty. The femoral head component articulates appropriately with the acetabular component. No periprosthetic lucency or fracture. Severe degenerative changes at the left hip with narrowing of the joint space. This has progressed since prior. There is sclerosis and osteophyte formation. The pelvic rim is intact. Degenerative changes of the visualized lumbar spine. XR/XR pelvis 1-2V IMPRESSION: 1. Total right hip arthroplasty in typical positioning and alignment. 2. Severe degenerative changes of the left hip. 3. No acute osseous abnormality.
--- NOTE | ~2022-05-23 | CT_ITS ---
EXAMINATION: NONCONTRAST HEAD CT NONCONTRAST CERVICAL SPINE CT INDICATION INFORMATION: Fall COMPARISON: 04/18/2022 TECHNIQUE: Separate noncontrast CT examinations of the head and cervical spine were performed. Coronal and sagittal images were created for each examination at the technologist workstation. This CT examination was performed using dose optimization techniques as appropriate, variously including the following: *Automated exposure control *Adjustment of mA and/or kV according to patient size (this includes techniques or standardized protocols for targeted exams where dose is matched to indication/reason for exam; i.e. extremities or head) *Use of iterative reconstruction technique DLP: 802 mGy-cm FINDINGS: Head: There is no evidence of acute intracranial hemorrhage or territorial infarction. No abnormal mass effect or midline shift is seen. Fox to white matter differentiation is well preserved. No extra-axial fluid collections are identified. No hydrocephalus. Proportional prominence of the ventricles and sulcal spaces is consistent with moderate volume loss. Patchy periventricular and deep white matter hypoattenuation is consistent with mild small vessel ischemic changes. Soft tissue swelling along the high left parietal region with laceration. No calvarial fracture. The mastoid air cells and visualized portions of the paranasal sinuses are well aerated. Cervical spine: There is anatomic alignment of the vertebral bodies and posterior elements. The atlantoaxial and atlantooccipital articulations are intact. Vertebral body heights are maintained. There is multilevel intervertebral disc space narrowing with endplate osteophyte formation and facet arthropathy. No evidence of acute fracture. No prevertebral soft tissue swelling. Mild paraseptal emphysema at the lung apices. The thyroid gland is unremarkable. CT/CT cervical spine wo IV con IMPRESSION: 1. No acute intracranial finding. 2. No acute fracture or malalignment of the cervical spine. Moderate degenerative changes.
--- NOTE | ~2022-05-23 | XR_ITS ---
EXAMINATION: XR HAND, RIGHT CLINICAL INFORMATION: Fall COMPARISON: None available. TECHNIQUE: PA, lateral, and oblique views of the right hand. FINDINGS: No fracture or dislocation. Severe degenerative change of the first carpometacarpal joint with narrowing of the joint space, sclerosis, and prominent osteophytes. Small osteophytes at the interphalangeal joints. Diffuse soft tissue swelling throughout the hand. XR/XR hand RT min 3V IMPRESSION: No fracture or malalignment. Severe degenerative changes of the first carpometacarpal joint.
[2022-05-23 23:35] VITALS: BP 163/68; PULSE 61; RESP 14; O2SAT 97; BMI 24.7
[2022-05-23 23:56] LABS: MANUAL DIFF FLAG NO
[2022-05-24 00:02] LABS: Basophils Absolute Auto 0.1 X10*3/uL (0.0-0.2); Basophils Percent Auto 0.5 % (0-2); Eosinophils Absolute Auto 0.3 X10*3/uL (0.0-0.4); Eosinophils Percent Auto 2.2 % (0-4); Hematocrit 32.3 % (37.0-47.0); Hemoglobin 9.6 g/dl (12.0-16.0); Imm Gran Abs Auto 0.04 X10*3/uL (0.00-0.03); Imm Gran Pct Auto 0.3 % (0.0-0.4); Lymphocytes Percent Auto 17.6 % (20-40); Mean Corpuscular HGB Conc 29.7 g/dl (31.0-35.0); Mean Corpuscular Hemoglobin 21.9 pg (27.0-33.0); Mean Corpuscular Volume 73.6 fL (80.0-98.0); Mean Platelet Volume 9.7 fL (9.4-12.3); Monocytes Percent Auto 9.1 % (2-11); Neutrophils Absolute Auto 8.1 x10*3/uL (2.0-8.3); Neutrophils Percent Auto 70.3 % (45-73); Platelet Count 304 X10*3/uL (160-400); Red Blood Count 4.39 X10*6/uL (4.20-5.50); White Blood Count 11.5 X10*3/uL (4.8-10.8)
--- OUTSIDE RECORDS SUMMARY | 2022-05-24 00:07 | XMS_ITS | Continuity of Care Document ---
Author Name Unknown Organization [facility] Daniel Address [address] [place] [address]- Care Team Providers Care Can Slider Name Role Phone Mayuri PASCUAL, Eddie Morales Primary Care Physician [place] [facility] [place]): [place] [facility] [address] [place] [address]- [place] Encounter Diagnosis Osteoarthritis of right hip(Discharge Diagnosis) - 02/04/19 Attending Physician: Mylene Muller NP Referring Physician: Eddie Messina MD Allergies, Adverse Reactions, Alerts Substance Reaction Severity Status NKA Active Immunizations Given and Recorded Vaccine Date Status Refusal Reason Influenza Virus Vaccine (oldterm) 12/24/18 Recorde d Zoster Vaccine Live 12/14/18 Recorded tetanus/diphtheria/pertussis, acel(Tdap) 07/21/18 Given pneumococcal 13-valent vaccine 07/21/18 Given pneumococcal 23-valent vaccine 1, 2 11/07/08 Given influenza virus vaccine, inactivated 3, 4 11/07/08 Given 1Early/Late Reason: Nursing Judgment 2Result Comment: [id number] [employer] 3Early/Late Reason: Nursing Judgment 4Result Comment: sanofi pasteur [id number] Medications albuterol 0.083% inhalation solution 3 mL = 2.5 mg, Inhalation, Every 4 hours, PRN for wheezing, # 25 each, 3 Refills, Maintenance, 03/15/18 8:02:33 EST, Solution Start Date: 03/15/18 Status: Ordered bupropion extended release = 200 mg, By Mouth, Daily, 0 Refills, Maintenance, 04/22/18 8:53:19 EDT Start Date: 04/22/18 Status: Ordered CeleBREX 200 mg oral capsule 1 capsule = 200 mg, By Mouth, Daily, # 30 capsule, 0 Refills, Maintenance, 01/21/19 11:41:54 EST, Capsule Start Date: 01/21/19 Status: Ordered gabapentin 100 mg oral capsule 100 mg, 1, capsule, By Mouth, Daily, Refills 0, Maintenance, 07/24/17 9:58:21 EDT Start Date: 07/24/17 Status: Ordered LaMICtal 200 mg oral tablet 1 tablet = 200 mg, By Mouth, Daily, # 180 tablet, 0 Refills, Maintenance, 12/15/16 2:59:16, Tablet Start Date: 12/15/16 Status: Ordered metoprolol 25 mg oral tablet, extended release 25 mg, 1, tablet, By Mouth, Daily, this is a dose decrease, # 90 tablet, Refills 1, Tot. Refills 1,Maintenance, 09/28/18 15:24:51 EDT, Route to Pharmacy Electronically, [id number], [facility]/pharmacy #[id number] Start Date: 09/28/18 Stop Date: 03/27/19 Status: Ordered montelukast 10 mg oral tablet See Instructions, # 90 tablet, Refills 1 Tot. Refills 1, TAKE 1 TABLET BY MOUTH EVERY MORNING, [facility]/pharmacy #[id number] Start Date: 11/29/18 Status: Ordered NEBULIZER MACHINE, TUBING, FACE MASK NEBULIZER MACHINE, TUBING, FACE MASK, See Instructions, # 1 each, Refills 0, Tot. Refills 0, Maintenance, DX: J40, 03/16/18 15:22:09 EST, Compound Start Date: 03/16/18 Status: Ordered oxybutynin 10 mg/24 hr oral tablet, extended release 1 tablet = 10 mg, By Mouth, Daily, # 30 tablet, 0 Refills, Maintenance, 09/16/16 13:49:50, ER Tablet Start Date: 09/16/16 Status: Ordered ProAir HFA 90 mcg/inh inhalation aerosol with adapter 180 mcg, 2, puffs, Inhalation, 4 times a day, # 3 each, Refills 11, Tot. Refills 11, Maintenance, 04/05/18 8:34:35 EST, Inhaler, Route to Pharmacy Electronically, [id number], [facility]/pharmacy #[id number] Start Date: 04/05/18 Status: Ordered Protonix 40 mg oral delayed release tablet 1 tablet = 40 mg, By Mouth, Daily, 0 Refills, Maintenance, 04/22/18 8:54:44 EDT Start Date: 04/22/18 Status: Ordered Problem List Condition Effective Dates Status Health Status Inform ant Asthma(Confirmed) Active Bronchitis(Confirmed) Active Degenerative disc disease, lumbar(Confirmed) Active Diverticulosis(Confirmed) 1 Active Erosive esophagitis(Confirmed) 2 Active GERD (gastroesophageal reflu x disease)(Confirmed) Active Hiatal hernia(Confirmed) 3 Active H/O bariatric surgery(Confirmed) Active History of colonoscopy(Confirmed) 4 Active Hoarseness of voice(Confirmed) Active Hypercalcemia(Confirmed) Active Hypercholesterolemia(Confirmed) Active HTN (hypertension)(Confirmed) Active Internal hemorrhoids(Confirmed) 5 Active Abnormal liver function test(Confirmed) Active Osteoarthritis(Confirmed) Active Osteoarthritis of right hip(Confirmed) Active Osteopenia(Confirmed) Active Takotsubo cardiomyopathy(Confirmed) Active Uterine prolapse(Confirmed) Active 1colo 2017 [id number]; repeat 2027 Diagnosis Diagnosis Type Effective Dates Health Status Clinical Service Informant Osteoarthritis of right hip Discharge Diagnosis 02/04/19 Vital Signs Most recent to oldest [Reference Range]: 1 Height 158 cm (02/04/19 11:28 AM) Weight 57.6 kg (02/04/19 11:28 AM) Oxygen Saturation [94-100 %] 98 % (02/04/19 11:28 AM) Pulse Rate [55-90 bpm] 65 bpm (02/04/19 11:28 AM) Body Mass Index [18.5-24.99] 23.07 (02/04/19 11:28 AM) Blood Pressure [90-138/55-84 mm Hg] 110/ 74mm Hg (02/04/19 11:28 AM) Blood pressure sites Arm, right (02/04/19 11:28 AM) Social History Social History Type Response Smoking Status Former smoker; Other : quit 30 years ago; entered on: 07/24/17 Sex
--- OUTSIDE RECORDS SUMMARY | 2022-05-24 00:07 | XMS_ITS | Continuity of Care Document ---
Author Name Unknown Organization [facility] Jose Daniel Address [address] [place] [address]- Care Team Providers Care Gravity Manager Name Role Phone Mayuri PASCUAL, Eddie Morales Primary Care Physician Encounter [facility] Date(s): 11/12/20 - 12/12/20 [facility] Adult [address] [place] [address]- Allergies, Adverse Reactions, Alerts Substance Reaction Severity Status NKA Active Immunizations Given and Recorded Vaccine Date Status Refusal Reason SARS-CoV-2 (COVID-19) mRNA BNT-162b2 vac 06/03/20 Recorded SARS-CoV-2 (COVID-19) mRNA BNT-162b2 vac 05/01/20 Recorded Influenza Virus Vaccine (oldterm) 12/24/18 Recorde d Zoster Vaccine Live 12/14/18 Recorded tetanus/diphtheria/pertussis, acel(Tdap) 07/21/18 Given pneumococcal 13-valent vaccine 07/21/18 Given pneumococcal 23-valent vaccine 1, 2 11/07/08 Given influenza virus vaccine, inactivated 3, 4 11/07/08 Given 1Early/Late Reason: Nursing Judgment 2Result Comment: [id number] [employer] 3Early/Late Reason: Nursing Judgment 4Result Comment: sanofi pasteur [id number] Medications albuterol 0.083% inhalation solution 3 mL = 2.5 mg, Inhalation, Every 4 hours, PRN for wheezing, # 25 each, 5 Refills, Maintenance, 10/20/19 15:51:00 EDT, Solution, [id number], 158, cm, 09/08/19 15:53:00 EDT, Height, 95.45, kg, 01/08/18 3:57:00 EST, Dry Weight Start Date: 10/20/19 Status: Ordered bupropion extended release = 200 mg, By Mouth, Daily, 0 Refills, Maintenance, 04/22/18 8:53:19 EDT Start Date: 04/22/18 Status: Ordered Chewable Calcium with Vitamin D Daily, 0 Refills, Maintenance, 01/12/20 10:08:00 EST, Partial fill upon patient request if the prescription is for a schedule II opioid drug. Start Date: 01/12/20 Status: Ordered Flonase 50 mcg/inh nasal spray 1 sprays, Nares, Both, 2 times a day, # 16 Gm, 0 Refills, Maintenance, 07/07/19 13:13:00 EDT, [place], [facility]/pharmacy #0843, 1 sprays Nares, Both 2 times a day, 158, cm, 06/16/19 15:37:00 EDT, Height, 95.45, kg, 01/08/18 3:57:00 EST, Dry Weight Start Date: 07/07/19 Status: Ordered Flovent HFA 110 mcg/inh inhalation aerosol 2 puffs, Inhalation, 2 times a day, /THROAT AFTER USE., # 36 Unknown, 1 Refills, Maintenance, 06/21/20 15:48:00 EDT, [facility]/pharmacy #0843, 158, cm, 05/28/20 9:37:00 EDT, Height Start Date: 06/21/20 Status: Ordered gabapentin 300 mg oral capsule 300 mg, 1, capsule, By Mouth, 2 times a day, Refills 0, Maintenance, 12/22/19 9:47:00 EST, Partial fill upon patient request Start Date: 12/22/19 Status: Ordered LaMICtal 200 mg oral tablet 1 tablet = 200 mg, By Mouth, Daily, # 180 tablet, 0 Refills, Maintenance, 12/15/16 2:59:16, Tablet Start Date: 12/15/16 Status: Ordered metoprolol 25 mg oral tablet, extended release 25 mg, 1, tablet, By Mouth, Daily, # 90 tablet, Refills 3, Tot. Refills 3, Maintenance, 09/21/19 9:10:00 EDT, Route to Pharmacy Electronically, [facility]/pharmacy #0843, 158, cm, 09/08/19 15:53:00 EDT, Height, 95.45, kg, 01/08/18 3:57:00 EST, Dry Weight Start Date: 09/21/19 Stop Date: 09/15/20 Status: Ordered Metoprolol Succinate ER 25 mg oral tablet, extended release 1 tablet, By Mouth, Daily, please call office and schedule appt for further refills, # 90 tablet, 0 Refills, Maintenance, 09/13/20 8:12:00 EDT, [facility]/pharmacy #0843, 158, cm, 05/28/20 9:37:00 EDT, Height Start Date: 09/13/20 Status: Ordered montelukast 10 mg oral tablet 1, tablet, By Mouth, Daily in AM, # 90 tablet, Refills 1, Tot. Refills 0, Maintenance, 07/30/20 11:29:00 EDT, Route to Pharmacy Electronically, [facility], 158, cm, 05/28/20 9:37:00 EDT, Height Start Date: 07/30/20 Status: Ordered NEBULIZER MACHINE, TUBING, FACE MASK [...] ER Tablet Start Date: 09/16/16 Status: Ordered pantoprazole 40 mg oral delayed release tablet 1 tablet = 40 mg, By Mouth, Daily, # 30 tablet, 0 Refills, Maintenance, 10/09/20 15:50:00 EDT, 158,cm, 10/08/20 7:48:00 EDT, Height Start Date: 10/09/20 Status: Ordered ProAir HFA 90 mcg/inh inhalation aerosol with adapter 180 mcg, 2, puffs, Inhalation, 4 times a day, # 3 each, Refills 1, Tot. Refills 1, Maintenance, 06/26/20 14:19:00 EDT, Inhaler, Route to Pharmacy Electronically, [id number],[facility]/pharmacy #[id number], 158, cm, 05/28/20 9:37:00 EDT,... Start Date: 06/26/20 Status: Ordered Protonix 40 mg oral delayed release tablet 1 tablet = 40 mg, By Mouth, Daily, 0 Refills, Maintenance, 04/22/18 8:54:44 EDT Start Date: 04/22/18 Status: Ordered Problem List Condition Effective Dates Status Health Status Inform ant Asthma(Confirmed) Active Degenerative disc disease, lumbar(Confirmed) Active Diverticulosis(Confirmed) 1 Active Erosive esophagitis(Confirmed) 2 Active GERD (gastroesophageal reflu x disease)(Confirmed) Active Hiatal hernia(Confirmed) 3 Active H/O bariatric surgery(Confirmed) Active History of colonoscopy(Confirmed) 4 Active Hoarseness of voice(Confirmed) Active Hypercalcemia(Confirmed) Active Hypercholesterolemia(Confirmed) Active HTN (hypertension)(Confirmed) Active Internal hemorrhoids(Confirmed) 5 Active Abnormal liver function test(Confirmed) Active Osteoarthritis(Confirmed) Active Osteoarthritis of right hip(Confirmed) Active Osteopenia(Confirmed) Active Left shoulder pain(Confirmed) Active Takotsubo cardiomyopathy(Confirmed) Active Uterine prolapse(Confirmed) Active 1colo 2017 2EGD 2017 3EGD 2017 04266; repeat 2027 5c2017 Social History Social History Type Response Smoking Status Former smoker; Other : quit 30 years ago; entered on: 07/24/17 Sex
--- OUTSIDE RECORDS SUMMARY | 2022-05-24 00:07 | XMS_ITS | Continuity of Care Document ---
Author Name Unknown Organization [facility] Mitchel Jose Daniel lt Address [address] [place] [address]- Care Team Providers Care Continuous Improvement Black Belt Name Role Phone Eddie Messina MD Primary Care Physician [phone] Encounter [facility] Date(s): 05/26/19 - 06/02/19 [facility] Adult [address] [place] [address]- [facility] Attending Physician: Mylene Muller NP Referring Physician: [...] Given 1Early/Late Reason: Nursing Judgment 2Result Comment: [id number] [employer] 3Early/Late Reason: Nursing Judgment 4Result Comment: sanofi pasteur [id number] Medications albuterol 0.083% inhalation solution 3 mL = 2.5 mg, Inhalation, Every 4 hours, PRN for wheezing, # 25 each, 3 Refills, Maintenance, 03/15/18 8:02:33 EST, Solution Start Date: 03/15/18 Status: Ordered Aleve = 330 mg, By Mouth, takes 2 bid, 0 Refills, Maintenance, 04/04/19 13:59:00 EST Start Date: 04/04/19 Status: Ordered bupropion extended release = 200 mg, By Mouth, Daily, 0 Refills, Maintenance, 04/22/18 8:53:19 EDT Start Date: 04/22/18 Status: Ordered gabapentin 100 mg oral capsule 200 mg, 2, capsule, By Mouth, 3 times a day, DOSAGE INCREASE, # 180 capsule, Refills 0, Tot. Refills 0, Maintenance, 05/26/19 14:14:00 EDT, Route to Pharmacy Electronically, [facility]/pharmacy #[id number], 158, cm, 04/04/19 13:57:00 EST, Height, 95.45, kg, ... Start Date: 05/26/19 Status: Ordered LaMICtal 200 mg oral tablet 1 tablet = 200 mg, By Mouth, Daily, # 180 tablet, 0 Refills, Maintenance, 12/15/16 2:59:16, Tablet Start Date: 12/15/16 Status: Ordered metoprolol 25 mg oral tablet, extended release 25 mg, 1, tablet, By Mouth, Daily, # 90 tablet, Refills 1, Tot. Refills 1, Maintenance, 03/29/19 9:52:00 EST, Route to Pharmacy Electronically, [facility]/pharmacy #0843, 158, cm, 02/04/19 11:28:00 EST, Height, 95.45, kg, 01/08/18 3:57:00 EST, Dry Weight Start Date: 03/29/19 Stop Date: 09/25/19 Status: Ordered montelukast 10 mg oral tablet See Instructions, # 90 tablet, Refills 1 Tot. Refills 1, TAKE 1 TABLET BY MOUTH EVERY MORNING, [facility]/pharmacy #[id number] Start Date: 11/29/18 Status: Ordered [...] each, Refills 1, Tot. Refills 1, Maintenance, 04/04/19 20:05:00 EST, Inhaler, Route to Pharmacy Electronically, [id number],[facility]/pharmacy #0843, 158, cm, 04/04/19 13:57:00 EST,... Start Date: 04/04/19 Status: Ordered Protonix 40 mg oral delayed release tablet 1 tablet = 40 mg, By Mouth, Daily, 0 Refills, Maintenance, 04/22/18 8:54:44 EDT Start Date: 04/22/18 Status: Ordered traMADol 50 mg oral tablet 2 tablet = 100 mg, By Mouth, Every 6 hours, PRN Pain , Severe, for 28 days, M16.11 - May dispense less, # 224 tablet, 0 Refills, Acute 06/10/19 10:06:00 EDT, 05/13/19 10:06:00 EDT, Tablet, [facility]/pharmacy #0843, 158, cm, 04/04/19 13:57:00 EST, Height, 95... Start Date: 05/13/19 Stop Date: 06/10/19 Status: Ordered Problem List Condition Effective Dates [...] Uterine prolapse(Confirmed) Active 1colo 2017 2EGD 2017 3E2017 75666; repeat 2027 5c2017 Social History Social History Type Response Smoking Status Former smoker; Other : quit 30 years ago; entered on: 07/24/17 Sex
--- OUTSIDE RECORDS SUMMARY | 2022-05-24 00:07 | XMS_ITS | Continuity of Care Document ---
Author Name Unknown Organization [facility] Jose Daniel lt Address [address] [place] [address]- Care Team Providers Care Supervisor Detasseling Crew Name Role Phone Eddie Messina MD Primary Care Physician [place] [facility] [place] 02/04/19 - 04/10/19 [facility] Adult [address] [place] [address]- [facility] Attending Physician: Eddie Messina MD Allergies, Adverse Reactions, [...] Given 1Early/Late Reason: Nursing Judgment 2Result Comment: [id number] [employer] 3Early/Late Reason: Nursing Judgment 4Result Comment: sanofi pasteur [id number] Medications albuterol 0.083% inhalation solution 3 mL [...] Daily, # 30 capsule, 0 Refills, Maintenance, 03/17/19 11:54:00 EST, Capsule, [facility]/pharmacy #0843, 158, cm, 02/04/19 11:28:00 EST, Height, 95.45, kg, 01/08/18 3:57:00 EST,Dry Weight Start Date: 03/17/19 Status: Ordered Gabapentin = 100 mg, By Mouth, 3 times a day, 0 Refills, Maintenance, 04/04/19 14:13:00 EST Start Date: 04/04/19 Status: Ordered gabapentin 100 mg oral capsule [...] 03/29/19 9:52:00 EST, Route to Pharmacy Electronically, [facility]/pharmacy #0843, 158, cm, 02/04/19 11:28:00 EST, Height, 95.45, kg, 01/08/18 3:57:00 EST, Dry Weight Start Date: 03/29/19 Stop Date: 09/25/19 Status: Ordered montelukast 10 mg oral tablet See Instructions, # 90 tablet, Refills 1 Tot. Refills 1, TAKE 1 TABLET BY MOUTH EVERY MORNING, [facility]/pharmacy #[id number] Start Date: 11/29/18 Status: Ordered NEBULIZER [...] 20:05:00 EST, Inhaler, Route to Pharmacy Electronically, [id number],[facility]/pharmacy #0843, 158, cm, 04/04/19 13:57:00 EST,... Start [...] Active 1colo 2017 2EGD 2017 3EGD 2017 91369; repeat 2027 5c2017 Social History Social History Type Response Smoking Status Former smoker; Other : quit 30 years ago; entered on: 07/24/17 Sex
--- OUTSIDE RECORDS SUMMARY | 2022-05-24 00:07 | XMS_ITS | Continuity of Care Document ---
Author Name Unknown Organization [facility] Jose Daniel lt Address [address] [place] [address]- Care Team Providers Care Garbage Person Name Role Phone Mayuri PASCUAL, Eddie Morales Primary Care Physician Encounter [facility] Date(s): 09/08/19 - 10/08/19 [facility] Adult [address] [place] [address]- [facility] Attending Physician: Admjermaine, Scot8 Admitting Physician: AdmtrPili Referring Physician: Admtr, Ar8 Allergies, Adverse Reactions, Alerts Substance Reaction Severity Status NKA Active Immunizations Given and Recorded Vaccine Date Status Refusal Reason Influenza Virus Vaccine (oldterm) 12/24/18 Recorde d Zoster Vaccine Live 12/14/18 Recorded tetanus/diphtheria/pertussis, acel(Tdap) 07/21/18 Given pneumococcal 13-valent vaccine 07/21/18 Given pneumococcal 23-valent vaccine 1, 2 11/07/08 Given influenza virus vaccine, inactivated 3, 4 11/07/08 Given 1Early/Late Reason: Nursing Judgment 2Result Comment: [id number] [employer] 3Early/Late Reason: Nursing Judgment 4Result Comment: sanofi pasteur [id number] Medications albuterol 0.083% inhalation solution 3 mL [...] 8:53:19 EDT Start Date: 04/22/18 Status: Ordered Flonase 50 mcg/inh nasal spray 1 sprays, Nares, Both, 2 times a day, # 16 Gm, 0 Refills, Maintenance, 07/07/19 13:13:00 EDT, [place], [facility]/pharmacy #0843, 1 sprays Nares, Both 2 times a day, 158, cm, 06/16/19 15:37:00 EDT, Height, 95.45, kg, 01/08/18 3:57:00 EST, Dry Weight Start Date: 07/07/19 Status: Ordered gabapentin 100 mg oral capsule 100 mg, 1, capsule, By Mouth, 3 times a day, DOSAGE DECREASE, # 90 capsule, Refills 0, Tot. Refills0, Maintenance, 06/30/19 13:01:00 EDT, Route to Pharmacy Electronically, [facility]/pharmacy #0843, 158, cm, 06/16/19 15:37:00 EDT, Height, 95.45, kg, ... Start Date: 06/30/19 Status: Ordered LaMICtal 200 mg oral tablet 1 tablet = 200 mg, By Mouth, Daily, # 180 tablet, 0 Refills, Maintenance, 12/15/16 2:59:16, Tablet Start Date: 12/15/16 Status: Ordered metoprolol 25 mg oral tablet, extended release 25 mg, 1, tablet, By Mouth, Daily, # 90 tablet, Refills 3, Tot. Refills 3, Maintenance, 09/21/19 9:10:00 EDT, Route to Pharmacy Electronically, [facility]/pharmacy #0843, 158, cm, 09/08/19 15:53:00 EDT, Height, 95.45, kg, 01/08/18 3:57:00 EST, Dry Weight Start Date: 09/21/19 Stop Date: 09/15/20 Status: Ordered montelukast 10 mg oral tablet 1, tablet, By Mouth, Daily in AM, # 90 tablet, Refills 1, Tot. Refills 0, Maintenance, 07/26/19 11:57:00 EDT, Route to Pharmacy Electronically, [facility] STORE [facility], 158, cm, 06/16/19 15:37:00 EDT, Height, 95.45, kg, 01/08/18 3:57:00 EST, Dry Weight Start Date: 07/26/19 Status: Ordered NEBULIZER MACHINE, TUBING, FACE MASK [...] each, Refills 1, Tot. Refills 1, Maintenance, 08/18/19 15:51:00 EDT, Inhaler, Route to Pharmacy Electronically, [id number],[facility]/pharmacy #0843, 158, cm, 08/08/19 9:42:00 EDT,... Start Date: 08/18/19 Status: Ordered Protonix 40 mg oral delayed [...] Uterine prolapse(Confirmed) Active 1colo 2017 2E2017 3E2017 71645; repeat 2027 5c2017 Social History Social History Type Response Smoking Status Former smoker; Other : quit 30 years ago; entered on: 07/24/17 Sex
--- OUTSIDE RECORDS SUMMARY | 2022-05-24 00:07 | XMS_ITS | Continuity of Care Document ---
Author Name Unknown Organization [facility] Address [address] [place] [address]- Care Team Providers Care Biomedical Engineering Aide Name Role Phone Eddie Messina MD Primary Care Physician Encounter [facility] Date(s): 01/13/22 - 02/12/22 [facility] [address] [place] [address]- [place] Allergies, Adverse Reactions, Alerts No Known Allergies Immunizations Given and Recorded Vaccine Date Status Refusal Reason pneumococcal 20-valent conjugate vaccine 1 01/26/22 Recorded [id number] bivalent booster vax 01/26/22 Recorded influenza virus vaccine, inactivated 2 01/22/22 Gi kunal influenza virus vaccine, inactivated 12/20/20 Joshua rded influenza virus vaccine, inactivated 10/23/19 Joshua rded influenza virus vaccine, inactivated 3, 4 11/07/08 Given SARS-CoV-2 mRNA ([id number]) vax 05/25/21 Recorded SARS-CoV-2 (COVID-19) mRNA BNT-162b2 vac 12/20/20 Recorded SARS-CoV-2 (COVID-19) mRNA BNT-162b2 vac 06/03/20 Recorded SARS-CoV-2 (COVID-19) mRNA BNT-162b2 vac 05/01/20 Recorded Influenza Virus Vaccine (oldterm) 12/24/18 Recorde d Zoster Vaccine Live 12/14/18 Recorded tetanus/diphtheria/pertussis, acel(Tdap) 07/21/18 Given pneumococcal 13-valent vaccine 07/21/18 Given pneumococcal 23-valent vaccine 5, 6 11/07/08 Given 1Result Comment: Record received from [facility] Pharmacy 2Result Comment: [id number] 3Early/Late Reason: Nursing Judgment 4Result Comment: sanofi pasteur [id number] 5Early/Late Reason: Nursing Judgment 6Result Comment: [id number] [employer] Medications Advair Diskus 100 mcg-50 mcg inhalation powder 1, inhalation, Inhalation, 2 times a day, rinse mouth and throat after use, # 1 pack/packet, Refills 0, Tot. Refills 0, Maintenance, 01/22/22 11:10:00 EST, Powder, Route to Pharmacy Electronically, [id number], [facility]/pharmacy #0... Start Date: 01/22/22 Status: Ordered Albuterol (Eqv-Proventil HFA) 90 mcg/inh inhalation aerosol 2 puffs, Inhalation, 4 times a day, # 20.1 each, 5 Refills, Maintenance, 10/13/21 9:29:00 EDT, [facility], 158, cm, 09/19/21 15:25:00 EDT, Height Start Date: 10/13/21 Status: Ordered bupropion extended release = 200 mg, By Mouth, Daily, 0 Refills, Maintenance, 04/22/18 8:53:19 EDT Start Date: 04/22/18 Status: Ordered digoxin 0.125 mg oral tablet 1, tablet, By Mouth, Daily, # 90 tablet, Refills 3, Tot. Refills 3, Maintenance, 11/08/21 12:38:00 EDT, Route to Pharmacy Electronically, [facility]/pharmacy #0843, 158, cm, 11/07/21 11:39:00 EDT, Height Start Date: 11/08/21 Stop Date: 11/03/22 Status: Ordered DilTIAZem (Eqv-Cardizem CD) 360 mg/24 hours oral capsule, extended release 1 capsule, By Mouth, Daily, # 60 capsule, 2 Refills, Maintenance, 01/23/22 13:54:00 EST, [facility]/pharmacy #0843, 158, cm, 01/22/22 10:05:00 EST, Height, 61, kg, 12/02/21 11:51:00 EDT, Dry Weight Start Date: 01/23/22 Status: Ordered Eliquis 5 mg oral tablet 1 tablet = 5 mg, By Mouth, 2 times a day, # 60 tablet, 6 Refills, Maintenance, 10/15/21 10:41:00 EDT, Tablet, [facility]/pharmacy #0843, Partial fill upon patient request if the prescription is for a schedule II opioid drug., 158, cm, 09/19/21 15:25:00 EDT,... Start Date: 10/15/21 Status: Ordered LaMICtal 200 mg oral tablet 1 tablet = 200 mg, By Mouth, Daily, # 180 tablet, 0 Refills, Maintenance, 12/15/16 2:59:16, Tablet Start Date: 12/15/16 Status: Ordered montelukast 10 mg oral tablet 1, tablet, By Mouth, Daily in AM, # 90 tablet, Refills 2, Maintenance, 12/31/21 13:35:00 EST, Routeto Pharmacy Electronically, [facility], 158, cm, 12/02/21 12:48:00 EDT, Height, 61, kg, 12/02/21 11:51:00 EDT, Dry Weight Start Date: 12/31/21 Status: Ordered NEBULIZER MACHINE, TUBING, FACE MASK [...] 40 mg oral delayed release tablet 1 tablet, By Mouth, Daily, # 90 tablet, 3 Refills, Maintenance, 11/05/21 15:04:00 EDT, 158, cm, 10/24/21 8:38:00 EDT, Height Start Date: 11/05/21 Status: Ordered Problem List Condition Confirmation Course Effective Dates Status Health Status Informant Asthma Confirmed Active Atrial fibrillation Confirmed Active Degenerative disc disease, lumbar Confirmed Active Diverticulosis 1 Confirmed Active Erosive esophagitis 2 Confirmed Active GERD (gastroesophageal reflux disease) Confirmed Active History of pneumothorax Confirmed Active Hiatal hernia 3 Confirmed Active H/O bariatric surgery Confirmed Active History of colonoscopy 4 Confirmed Active History of COVID-19 Confirmed Active Hoarseness of voice Confirmed Active Hypercalcemia Confirmed Active Hypercholesterolemia Confirmed Active Hypertension Confirmed Active Internal hemorrhoids 5 Confirmed Active Abnormal liver function test Confirmed Active Osteoarthritis Confirmed Active Osteoarthritis of right hip Confirmed Active Osteopenia Confirmed Active Left shoulder pain Confirmed Active Takotsubo cardiomyopathy Confirmed Active Uterine prolapse Confirmed Active 1c2017 2E2017 3E2017 52388; repeat 2027 5c2017 Social History Social History Type Response Smoking Status Former smoker; Other : quit 30 years ago; entered on: 07/24/17 Sex Patient Care team information Care Team Personnel Name: Mayuri PASCUAL, Eddie Morales Position: [facility] Primary Care Physician Member Role: PCP Address: Address: [address] [place] [address]- Care Team Related Persons Name: BRANDON CHANDRA Address: home [address] [place] [id number]
--- OUTSIDE RECORDS SUMMARY | 2022-05-24 00:07 | XMS_ITS | Continuity of Care Document ---
Author Name Unknown Organization [facility] Address [address] [place] [address]- Care Team Providers Care Magnetic Resonance Imaging Director Name Role Phone Eddie Messina MD Primary Care Physician [phone] Encounter [facility] Date(s): 01/05/21 - 01/12/21 [facility] [address] [place] [address]- Encounter Diagnosis UTI symptoms(Discharge Diagnosis) - 01/05/21 Attending Physician: Korina Cardenas MD Referring Physician: Eddie Messina MD Allergies, Adverse [...] Given 1Early/Late Reason: Nursing Judgment 2Result Comment: [id number] [employer] 3Early/Late Reason: Nursing Judgment 4Result Comment: sanofi pasteur [id number] Medications Albuterol (Eqv-ProAir HFA) 90 mcg/inh inhalation aerosol 2 puffs, Inhalation, 4 times a day, # 25.5 each, 1 Refills, [facility], 90, INHALE 2 PUFFS BY MOUTH 4 TIMES A DAY, 158, cm, 10/08/20 7:48:00 EDT, Height Start Date: 12/13/20 Status: Ordered albuterol 0.083% inhalation solution 3 mL = 2.5 mg, Inhalation, Every 4 hours, PRN for wheezing, # 25 each, 5 Refills, Maintenance, 10/20/19 15:51:00 EDT, Solution, [facility]/pharmacy #0843, 158, cm, 09/08/19 15:53:00 EDT, [...] Gm, 0 Refills, Maintenance, 07/07/19 13:13:00 EDT, [place], [facility]/pharmacy #0843, 1 sprays Nares, Both 2 times a day, 158, cm, 06/16/19 15:37:00 EDT, Height, 95.45, kg, 01/08/18 3:57:00 EST, Dry Weight Start Date: 07/07/19 Status: Ordered Flovent HFA 110 mcg/inh inhalation aerosol 2 puffs, Inhalation, 2 times a day, RINSE THROAT AFTER USE, # 36 each, 1 Refills, [facility] [address], 158, cm, 10/08/20 7:48:00 EDT, Height Start Date: 12/13/20 Status: Ordered gabapentin 300 mg oral capsule [...] 09/21/19 9:10:00 EDT, [facility], cm, 09/08/19 15:53:00 EDT, Height, 95.45, kg, 01/08/18 3:57:00 EST, Dry Weight Start Date: 09/21/19 Stop Date: 09/15/20 Status: Ordered Metoprolol Succinate ER 25 mg oral tablet, extended release 1 tablet, By Mouth, Daily, # 90 tablet, 0 Refills, Maintenance, 01/07/21 9:58:00 EST, [facility]/pharmacy #0843, 158, cm, 01/05/21 11:10:00 EST, Height Start Date: 01/07/21 Status: Ordered montelukast 10 mg oral tablet 1, tablet, By Mouth, Daily in AM, # 90 tablet, Refills 1, Tot. Refills 0, Maintenance, 07/30/20 11:29:00 EDT, Route to Pharmacy Electronically, [facility] [address], 158, cm, 05/28/20 9:37:00 EDT, Height Start [...] EDT, Height Start Date: 10/09/20 Status: Ordered Protonix 40 mg oral delayed [...] prolapse(Confirmed) Active 1colo 2017 2EGD 2017 3E2017 37085; repeat 2027 5c2017 Diagnosis Diagnosis Type Effective Dates Health Status Cl inical Service Informant UTI symptoms Discharge Diagnosis 01/05/21 Vital Signs Most recent to oldest [Reference Range]: 1 Height 158 cm (01/05/21 11:10 AM) Oxygen Saturation [94-100 %] 100 % (01/05/21 11:10 AM) Pulse Rate [55-90 bpm] 102 bpm *H* (01/05/21 11:10 AM) Blood Pressure [90-138/55-84 mm Hg] 141/ 75mm Hg *H* (01/05/21 11:10 AM) Temperature [96.8-100.4 DegF] 98.2 DegF (01/05/21 11:10 AM) Mode of Delivery (Oxygen) Room air (01/05/21 11:10 AM) Blood pressure sites Arm, right (01/05/21 11:10 AM) Temperature Route Temporal (01/05/21 11:10 AM) Social History Social History Type Response Smoking Status Former smoker; Other : quit 30 years ago; entered on: 07/24/17 Sex
--- OUTSIDE RECORDS SUMMARY | 2022-05-24 00:07 | XMS_ITS | Continuity of Care Document ---
Author Name Unknown Organization [facility] Address [address] [place] [address]- Care Team Providers Care Commercial Carpenter Name Role Phone Eddie Messina MD Primary Care Physician Encounter [facility] [place] Date(s): 04/04/19 - 04/14/19 [facility] [address] [place] [address]- [facility] Attending Physician: Pili Chung Admitting Physician: Pili Chung Referring Physician: AdmtrPili Allergies, Adverse Reactions, Alerts Substance Reaction Severity Status NKA Active Immunizations Given and Recorded Vaccine Date Status Refusal Reason Influenza Virus Vaccine (oldterm) 12/24/18 Recorde d Zoster Vaccine Live 12/14/18 Recorded tetanus/diphtheria/pertussis, acel(Tdap) 07/21/18 Given pneumococcal 13-valent vaccine 07/21/18 Given pneumococcal 23-valent vaccine 1, 2 11/07/08 Given influenza virus vaccine, inactivated 3, 4 11/07/08 Given 1Early/Late Reason: Nursing Judgment 2Result Comment: [id number] merck and co 3Early/Late Reason: Nursing Judgment 4Result Comment: sanofi pasteur [id number] Medications albuterol 0.083% inhalation solution 3 mL [...] 0 Refills, Maintenance, 03/17/19 11:54:00 EST, Capsule, [facility]/pharmacy #[id number], 158, cm, 02/04/19 11:28:00 EST, [...] 03/29/19 9:52:00 EST, Route to Pharmacy Electronically, [facility]/pharmacy #0843, 158, cm, 02/04/19 11:28:00 EST, Height, 95.45, kg, 01/08/18 3:57:00 EST, Dry Weight Start Date: 03/29/19 Stop Date: 09/25/19 Status: Ordered montelukast 10 mg oral tablet See Instructions, # 90 tablet, Refills 1 Tot. Refills 1, TAKE 1 TABLET BY MOUTH EVERY MORNING, [facility]/pharmacy #[id number] Start Date: 11/29/18 Status: Ordered [...] 20:05:00 EST, Inhaler, Route to Pharmacy Electronically, [id number],[facility]/pharmacy #0843, 158, cm, 04/04/19 13:57:00 EST,... [...] Active 1colo 2017 2EGD 2017 3EGD 2017 52499; repeat 2027 5colo 2017 Social History Social History Type Response Smoking Status Former smoker; Other : quit 30 years ago; entered on: 07/24/17 Sex
--- OUTSIDE RECORDS SUMMARY | 2022-05-24 00:07 | XMS_ITS | Continuity of Care Document ---
Author Name Unknown Organization [facility] [place] Jose Daniel Address [address] [place] [address]- Care Team Providers Care Capacity Manager Name Role Phone Mayuri PASCUAL, Eddie Morales Primary Care Physician [place] [facility] [place] 10/09[place]21 - 11/08/21 [facility] [place] Adult [address] [place] [address]- Allergies, Adverse Reactions, Alerts No Known Allergies Immunizations Given and Recorded Vaccine Date Status Refusal Reason influenza virus vaccine, inactivated 12/20/20 Joshua rded influenza virus vaccine, inactivated 10/23/19 Joshua rded influenza virus vaccine, inactivated 1, 2 11/07/08 Given SARS-CoV-2 (COVID-19) mRNA BNT-162b2 vac 12/20/20 Recorded SARS-CoV-2 (COVID-19) mRNA BNT-162b2 vac 06/03/20 Recorded SARS-CoV-2 (COVID-19) mRNA BNT-162b2 vac 05/01/20 Recorded Influenza Virus Vaccine (oldterm) 12/24/18 Recorde d Zoster Vaccine Live 12/14/18 Recorded tetanus/diphtheria/pertussis, acel(Tdap) 07/21/18 Given pneumococcal 13-valent vaccine 07/21/18 Given pneumococcal 23-valent vaccine 3, 4 11/07/08 Given 1Early/Late Reason: Nursing Judgment 2Result Comment: sanofi pasteur [id number] 3Early/Late Reason: Nursing Judgment 4Result Comment: [id number] merck and co Medications Albuterol (Eqv-Proventil HFA) 90 mcg/inh inhalation aerosol 2 puffs, Inhalation, 4 times a day, # 20.1 each, 5 Refills, Maintenance, 10/13/21 9:29:00 EDT, [facility] STORE [facility], 158, cm, 09/19/21 15:25:00 EDT, Height Start Date: 10/13/21 Status: Ordered bupropion extended release = 200 mg, By Mouth, Daily, 0 Refills, Maintenance, 04/22/18 8:53:19 EDT Start Date: 04/22/18 Status: Ordered digoxin 0.125 mg oral tablet 1, tablet, By Mouth, Daily, # 90 tablet, Refills 3, Tot. Refills 3, Maintenance, 11/08/21 12:38:00 EDT, Route to Pharmacy Electronically, [facility]/pharmacy #0843, 158, cm, 11/07/21 11:39:00 EDT, Height Start Date: 11/08/21 Stop Date: 11/03/22 Status: Ordered dilTIAZem 360 mg/24 hours oral capsule, extended release 1 capsule = 360 mg, By Mouth, Daily, # 30 capsule, 2 Refills, Maintenance, 10/09/21 16:35:00 EDT, [facility]/pharmacy #0843, dose increase, 158, cm, 09/19/21 15:25:00 EDT, Height Start Date: 10/09/21 Status: Ordered Eliquis 5 mg oral tablet 1 tablet = 5 mg, By Mouth, 2 times a day, 0 Refills, Maintenance, 09/19/21 15:39:00 EDT, Partial fill upon patient request if the prescription is for a schedule II opioid drug. Start Date: 09/19/21 Status: Ordered Eliquis 5 mg oral tablet 1 tablet = 5 mg, By Mouth, 2 times a day, # 60 tablet, 6 Refills, Maintenance, 10/15/21 10:41:00 EDT, Tablet, [facility]/pharmacy #0843, Partial fill upon patient request if the prescription is for a schedule II opioid drug., 158, cm, 09/19/21 15:25:00 EDT,... Start Date: 10/15/21 Status: Ordered Flovent HFA 110 mcg/inh inhalation aerosol 2 puffs, Inhalation, 2 times a day, RINSE THROAT AFTER USE, # 3 each, 0 Refills, Maintenance, 10/09/21 12:29:00 EDT, [facility]/pharmacy #0843, 158, cm, 09/19/21 15:25:00 EDT, Height Start Date: 10/09/21 Status: Ordered gabapentin 300 mg oral capsule [...] in AM, # 90 tablet, Refills 1, Route to Pharmacy Electronically, [facility] STORE 18550, 158, cm, 07/30/21 8:48:00 EDT, Height Start Date: 08/29/21 Status: Ordered NEBULIZER MACHINE, TUBING, FACE MASK [...] Uterine prolapse Confirmed Active 1c2017 2E2017 3E2017 87693; repeat 2027 5c2017 Social History Social History Type Response Smoking Status Former smoker; Other : quit 30 years ago; entered on: 07/24/17 Sex Patient Care team information Personnel Name: Mayuri PASCUAL, Eddie Morales Address: Address: [address] [place] [address]
--- OUTSIDE RECORDS SUMMARY | 2022-05-24 00:07 | XMS_ITS | Continuity of Care Document ---
Author Name Unknown Organization [facility] Address [address] [place] [address]- Care Team Providers Care Wildlife Rehabilitator Name Role Phone Eddie Messina MD Primary Care Physician Encounter [facility] Date(s): 01/21/19 - 01/21/[address] [address]- [facility] Attending Physician: Eddie Messina MD Allergies, Adverse Reactions, Alerts Substance Reaction Severity Status NKA Active Immunizations Given and Recorded Vaccine Date Status Refusal Reason Zoster Vaccine Live 12/14/18 Recorded tetanus/diphtheria/pertussis, acel(Tdap) 07/21/18 Given pneumococcal 13-valent vaccine 07/21/18 Given pneumococcal 23-valent vaccine 1, 2 11/07/08 Given influenza virus vaccine, inactivated 3, 4 11/07/08 Given 1Early/Late Reason: Nursing Judgment 2Result Comment: [id number] merck and co 3Early/Late Reason: Nursing Judgment 4Result Comment: sanofi pasteur [id number] Medications albuterol 0.083% inhalation solution 3 mL [...] 09/28/18 15:24:51 EDT, Route to Pharmacy Electronically, [id number], [facility]/pharmacy #0843 Start Date: 09/28/18 Stop Date: 03/27/19 Status: Ordered montelukast 10 mg oral tablet See Instructions, # 90 tablet, Refills 1 Tot. Refills 1, TAKE 1 TABLET BY MOUTH EVERY MORNING, [facility]/pharmacy #0843 Start Date: 11/29/18 Status: Ordered NEBULIZER [...] 8:34:35 EST, Inhaler, Route to Pharmacy Electronically, [id number], [facility]/pharmacy #0843 Start Date: 2/25/19 Status: Ordered Protonix 40 mg oral delayed [...] Uterine prolapse(Confirmed) Active 1colo 2017 2E2017 3E2017 [address]40; repeat 2027 5c2017 Social History Social History Type Response Smoking Status Former smoker; Other : quit 30 years ago; entered on: 07/24/17 Sex
--- OUTSIDE RECORDS SUMMARY | 2022-05-24 00:07 | XMS_ITS | Continuity of Care Document ---
Author Name Unknown Organization [facility] Jose Daniel Address [address] [place] [address]- Care Team Providers Care Hedge Fund Accountant Name Role Phone Mayuri PASCUAL, Eddie Morales Primary Care Physician [place] [facility] [place] Date(s): 08/08/19 - 08/15/19 [facility] [place] Adult [address] [place] [address]- [place] Encounter Diagnosis Left shoulder pain(Discharge Diagnosis) - 08/11/19 Attending Physician: Renee Chin NP Allergies, Adverse Reactions, Alerts Substance Reaction Severity Status NKA Active Immunizations Given and Recorded Vaccine Date Status Refusal Reason Influenza Virus Vaccine (oldterm) 12/24/18 Recorde d Zoster Vaccine Live 12/14/18 Recorded tetanus/diphtheria/pertussis, acel(Tdap) 07/21/18 Given pneumococcal 13-valent vaccine 07/21/18 Given pneumococcal 23-valent vaccine 1, 2 11/07/08 Given influenza virus vaccine, inactivated 3, 4 11/07/08 Given 1Early/Late Reason: Nursing Judgment 2Result Comment: [id number] merck and co 3Early/Late Reason: Nursing Judgment 4Result Comment: sanofi pasteur [id number] Medications albuterol 0.083% inhalation solution 3 mL [...] Gm, 0 Refills, Maintenance, 07/07/19 13:13:00 EDT, [place], [facility]/pharmacy #0843, 1 sprays Nares, Both 2 times a day, 158, cm, 06/16/19 15:37:00 EDT, Height, 95.45, kg, 01/08/18 3:57:00 EST, Dry Weight Start Date: 07/07/19 Status: Ordered gabapentin 100 mg oral capsule 100 mg, 1, capsule, By Mouth, 3 times a day, DOSAGE DECREASE, # 90 capsule, Refills 0, Tot. Refills0, Maintenance, 06/30/19 13:01:00 EDT, [facility]ically[facility] 158, cm, 06/16/19 15:37:00 EDT, Height, [...] 03/29/19 9:52:00 EST, Route to Pharmacy Electronically, [facility]/pharmacy #0843, 158, cm, 02/04/19 11:28:00 EST, Height, 95.45, kg, 01/08/18 3:57:00 EST, Dry Weight Start Date: 03/29/19 Stop Date: 09/25/19 Status: Ordered montelukast 10 mg oral tablet 1, tablet, By Mouth, Daily in AM, # 90 tablet, Refills 1, Tot. Refills 0, Maintenance, 07/26/19 11:57:00 EDT, Route to Pharmacy Electronically, [facility] STORE 47939, 158, cm, 06/16/19 15:37:00 EDT, Height, 95.45, [...] 20:05:00 EST, Inhaler, Route to Pharmacy Electronically, [id number],[facility]/pharmacy #0843, 158, cm, 04/04/19 13:57:00 EST,... [...] Active Takotsubo cardiomyopathy(Confirmed) Active Uterine prolapse(Confirmed) Active 1c2017 2E2017 3E2017 75007; repeat 2027 5c2017 Diagnosis Diagnosis Type Effective Dates Health Status Cl inical Service Informant Left shoulder pain Discharge Diagnosis 08/11/19 Vital Signs Most recent to oldest [Reference Range]: 1 Height 158 cm (08/08/19 9:42 AM) Oxygen Saturation [94-100 %] 97 % (08/08/19 9:42 AM) Pulse Rate [55-90 bpm] 68 bpm (08/08/19 9:42 AM) Blood Pressure [90-138/55-84 mm Hg] 122/ 78mm Hg (08/08/19 9:42 AM) Temperature [96.8-100.4 DegF] 98.2 DegF (08/08/19 9:42 AM) Blood pressure sites Arm, left (08/08/19 9:42 AM) Social History Social History Type Response Smoking Status Former smoker; Other : quit 30 years ago; entered on: 07/24/17 Sex
--- OUTSIDE RECORDS SUMMARY | 2022-05-24 00:07 | XMS_ITS | Continuity of Care Document ---
Author Name Unknown Organization [facility] Jose Daniel Address [address] [place] [address]- Care Team Providers Care Grinder Brake Lining Name Role Phone Eddie Messina MD Primary Care Physician Encounter [facility] [place] Date(s): 01/21/19 - 01/28/19 [facility] Adult [address] [place] [address]- [facility] Attending Physician: Eddie Messina MD Allergies, Adverse Reactions, Alerts Substance Reaction Severity Status NKA Active Immunizations Given and Recorded Vaccine Date Status Refusal Reason Zoster Vaccine Live 12/14/18 Recorded tetanus/diphtheria/pertussis, acel(Tdap) 07/21/18 Given pneumococcal 13-valent vaccine 07/21/18 Given pneumococcal 23-valent vaccine 1, 2 11/07/08 Given influenza virus vaccine, inactivated 3, 4 11/07/08 Given 1Early/Late Reason: Nursing Judgment 2Result Comment: [id number] merck and co 3Early/Late Reason: Nursing Judgment 4Result Comment: sanofi pasteur [id number] Medications albuterol 0.083% inhalation solution 3 mL [...] 09/28/18 15:24:51 EDT, Route to Pharmacy Electronically, [id number], [facility]/pharmacy #[id number] Start Date: 09/28/18 Stop Date: 03/27/19 Status: Ordered montelukast 10 mg oral tablet See Instructions, # 90 tablet, Refills 1 Tot. Refills 1, TAKE 1 TABLET BY MOUTH EVERY MORNING, [facility]/pharmacy #[id number] Start Date: 11/29/18 Status: Ordered NEBULIZER [...] 8:34:35 EST, Inhaler, Route to Pharmacy Electronically, [id number], [facility]/pharmacy #0843 Start Date: 04/05/18 Status: Ordered Protonix [...] Active 1colo 2017 2EGD 2017 3EGD 2017 [address]441; repeat 2027 5c2017 Vital Signs Most recent to oldest [Reference Range]: 1 Height 158 cm (01/21/19 11:00 AM) Weight 57.3 kg (01/21/19 11:00 AM) Oxygen Saturation [94-100 %] 99 % (01/21/19 11:00 AM) Pulse Rate [55-90 bpm] 69 bpm (01/21/19 11:00 AM) Body Mass Index [18.5-24.99] 22.95 (01/21/19 11:00 AM) Blood Pressure [90-138/55-84 mm Hg] 112/ 80mm Hg (01/21/19 11:00 AM) Mode of Delivery (Oxygen) Room air (01/21/19 11:00 AM) Blood pressure sites Arm, left (01/21/19 11:00 AM) Weight Obtained Via Standing scale (01/21/19 11:00 AM) Social History Social History Type Response Smoking Status Former smoker; Other : quit 30 years ago; entered on: 07/24/17 Sex
--- OUTSIDE RECORDS SUMMARY | 2022-05-24 00:07 | XMS_ITS | Continuity of Care Document ---
Author Name Unknown Organization [facility] Address [address] [place] [address]- Care Team Providers Care Leather Lacer Name Role Phone Eddie Messina MD Primary Care Physician [place] [facility] [place] 02/27[place]22 - 03/29/22 [facility] [address] [place] [address]- Attending Physician: Pili Chung Admitting Physician: AdmtrPili Referring Physician: Admtr, Ar8 Allergies, Adverse Reactions, Alerts No Known Allergies Immunizations Given and Recorded Vaccine Date Status Refusal Reason pneumococcal 20-valent conjugate vaccine 1 01/26/22 Recorded [id number] bivalent booster vax 01/26/22 Recorded influenza virus vaccine, inactivated 2 01/22/22 Gi kunal influenza virus vaccine, inactivated 12/20/20 Joshua rded influenza virus vaccine, inactivated 10/23/19 Joshua rded influenza virus vaccine, inactivated 3, 4 11/07/08 Given SARS-CoV-2 mRNA ([id number]) vax 05/25/21 Recorded SARS-CoV-2 (COVID-19) mRNA BNT-162b2 vac 12/20/20 Recorded SARS-CoV-2 (COVID-19) mRNA BNT-162b2 vac 06/03/20 Recorded SARS-CoV-2 (COVID-19) mRNA BNT-162b2 vac 05/01/20 Recorded Influenza Virus Vaccine (oldterm) 12/24/18 Recorde d Zoster Vaccine Live 12/14/18 Recorded tetanus/diphtheria/pertussis, acel(Tdap) 07/21/18 Given pneumococcal 13-valent vaccine 07/21/18 Given pneumococcal 23-valent vaccine 5, 6 11/07/08 Given 1Result Comment: Record received from [facility] Pharmacy 2Result Comment: [facility]-[id number] 3Early/Late Reason: Nursing Judgment 4Result Comment: sanofi pasteur [id number] 5Early/Late Reason: Nursing Judgment 6Result Comment: [id number] [id number] merck and co Medications Albuterol (Eqv-Proventil HFA) 90 mcg/inh inhalation aerosol 2 puffs, Inhalation, 4 times a day, # 20.1 each, 5 Refills, Maintenance, 10/13/21 9:29:00 EDT, [facility] STORE 58141, 158, cm, 09/19/21 15:25:00 EDT, Height Start Date: 10/13/21 Status: Ordered bupropion extended release = 200 mg, By Mouth, Daily, 0 Refills, Maintenance, 04/22/18 8:53:19 EDT Start Date: 04/22/18 Status: Ordered digoxin 0.125 mg oral tablet 1, tablet, By Mouth, Daily, # 90 tablet, Refills 3, Tot. Refills 3, Maintenance, 11/08/21 12:38:00 EDT, Route to Pharmacy Electronically, [facility]/pharmacy #0843, 158, cm, 11/07/21 11:39:00 EDT, Height Start Date: 11/08/21 Stop Date: 11/03/22 Status: Ordered DilTIAZem (Eqv-Cardizem CD) 360 mg/24 hours oral capsule, extended release 1 capsule, By Mouth, Daily, # 60 capsule, 2 Refills, Maintenance, 01/23/22 13:54:00 EST, [facility]/pharmacy #0843, 158, cm, 01/22/22 10:05:00 EST, Height, 61, kg, 12/02/21 11:51:00 EDT, Dry Weight Start Date: 01/23/22 Status: Ordered Eliquis 5 mg oral tablet 1 tablet, By Mouth, 2 times a day, # 60 tablet, 6 Refills, Maintenance, 02/13/22 15:42:00 EST, [facility] STORE 16074, 158, cm, 02/07/22 9:00:00 EST, Height, 61, kg, 12/02/21 11:51:00 EDT, Dry Weight Start Date: 02/13/22 Status: Ordered LaMICtal 200 mg oral tablet 1 tablet = 200 mg, By Mouth, Daily, # 180 tablet, 0 Refills, Maintenance, 12/15/16 2:59:16, Tablet Start Date: 12/15/16 Status: Ordered montelukast 10 mg oral tablet 1, tablet, By Mouth, Daily in AM, # 90 tablet, Refills 2, Maintenance, 12/31/21 13:35:00 EST, [facility] Electron[facility], [facility], 158, cm, 12/02/21 12:48:00 EDT, Height, 61, [...] EDT, Height Start Date: 11/05/21 Status: Ordered Wixela Inhub 100 mcg-50 mcg inhalation powder 1 inhalation, Inhalation, 2 times a day, AND THROAT AFTER USE., # 60 each, 0 Refills, Maintenance, 03/14/22 7:39:00 EST, [facility] STORE 49450, 30, INHALE 1 INHALATION 2 TIMES A DAY RINSE MOUTH AND THROAT AFTER USE, 158, cm, 03/06/22 9:29:00 EST, Height, 61... Start Date: 03/14/22 Status: Ordered Problem List Condition Confirmation Course [...] cardiomyopathy Confirmed Active Uterine prolapse Confirmed Active 1colo 2017 2EGD 2017 3EGD 2017 19078; repeat 2027 5c2017 Social History Social History Type Response Smoking Status Former smoker; Other : quit 30 years ago; entered on: 07/24/17 Sex Note * Event Display: Non Cardiovascular Results Authored Date: * Event Display: Non Cardiovascular Results Authored Date: * Event Display: Non Cardiovascular Results Authored Date: * Event Display: Non Lab Results Authored Date: * Event Display: Cardiology Office Note, Non-BH Authored Date: * Event Display: Non Lab Results Authored Date: Patient Care team information Care Team Personnel Name: Mayuri PASCUAL, Eddie Morales Position: [facility] Primary Care Physician Member Role: PCP Address: Address: [address] [place] [address]- Care Team Related Persons Name: BRANDON CHANDRA Address: [address] [address]
--- OUTSIDE RECORDS SUMMARY | 2022-05-24 00:07 | XMS_ITS | Continuity of Care Document ---
Author Name Unknown Organization [facility] [place] Jose Daniel Address [address] [place] [address]- Care Team Providers Care Nitrocellulose Maker Name Role Phone Eddie Messina MD Primary Care Physician [phone] [place] [facility] [place]s): 05/26/19 - 06/25/19 [facility] [place] Adult [address] [place] [address]- [facility] Encounter Diagnosis Osteoarthritis of right hip(Discharge Diagnosis) - 05/26/19 Attending Physician: Eddie Messina MD Allergies, Adverse [...] Given 1Early/Late Reason: Nursing Judgment 2Result Comment: [id number] merck and co 3Early/Late Reason: Nursing Judgment 4Result Comment: sanofi pasteur [id number] Medications albuterol 0.083% inhalation solution 3 mL [...] Status: Ordered gabapentin 100 mg oral capsule 300 mg, 3, capsule, By Mouth, 3 times a day, DOSAGE INCREASE, # 270 capsule, Refills 0, Tot. Refills 0, Maintenance, 06/14/19 15:23:00 EDT, Do Not Route, Dry Weight Start Date: 06/14/19 Status: Ordered LaMICtal 200 mg oral tablet 1 tablet = 200 mg, By Mouth, Daily, # 180 tablet, 0 Refills, Maintenance, 12/15/16 2:59:16, Tablet Start Date: 12/15/16 Status: Ordered metoprolol 25 mg oral tablet, extended release 25 mg, 1, tablet, By Mouth, Daily, # 90 tablet, Refills 1, Tot. Refills 1, Maintenance, 03/29/19 9:52:00 EST, Route to Pharmacy Electronically, [facility]/pharmacy #0843, 158, cm, 02/04/19 11:28:00 EST, Height, 95.45, kg, 01/08/18 3:57:00 EST, Dry Weight Start Date: 03/29/19 Stop Date: 09/25/19 Status: Ordered montelukast 10 mg oral tablet See Instructions, # 90 tablet, Refills 1 Tot. Refills 1, TAKE 1 TABLET BY MOUTH EVERY MORNING, [facility]/pharmacy #0843 Start Date: 11/29/18 Status: Ordered [...] 20:05:00 EST, Inhaler, Route to Pharmacy Electronically, [id number],[facility]/pharmacy #0843, 158, cm, 04/04/19 13:57:00 EST,... Start [...] less, # 224 tablet, 0 Refills, Acute 07/12/19 15:22:00 EDT, 06/14/19 15:22:00 EDT, Tablet, [facility]/pharmacy #0843, 158, cm, 04/04/19 13:57:00 EST, Height, 95... Start Date: 06/14/19 Stop Date: 07/12/19 Status: Ordered Problem List Condition Effective Dates [...] Active 1colo 2017 2EGD 2017 3EGD 2017 14262; repeat 2027 5colo 2017 Diagnosis Diagnosis Type Effective Dates Health Status Clinical Service Informant Osteoarthritis of right hip Discharge Diagnosis 05/26/19 Social History Social History Type Response Smoking Status Former smoker; Other : quit 30 years ago; entered on: 07/24/17 Sex
--- OUTSIDE RECORDS SUMMARY | 2022-05-24 00:08 | XMS_ITS | Continuity of Care Document ---
Author Name Unknown Organization [facility] [place] Jose Daniel Address [address] [place] [address]- Care Team Providers Care Label Rewinder Name Role Phone Eddie Messina MD Primary Care Physician [phone] Encounter [facility] [place] Date(s): 03/11/19 - 03/21/19 [facility] [place] Adult [address] [place] [address]- [facility] Attending Physician: Admjermaine, Scot8 Admitting Physician: Admtr, Scot8 Referring Physician: Admtr, Ar8 Allergies, Adverse Reactions, [...] Given 1Early/Late Reason: Nursing Judgment 2Result Comment: [id number] merck and co 3Early/Late Reason: Nursing Judgment 4Result Comment: sanofi pasteur [id number] Medications albuterol 0.083% inhalation solution 3 mL [...] 0 Refills, Maintenance, 03/17/19 11:54:00 EST, Capsule, [facility]/pharmacy #0843, 158, cm, 02/04/19 11:28:00 EST, Height, 95.45, kg, 01/08/18 3:57:00 EST,Dry Weight Start Date: 03/17/19 Status: Ordered gabapentin 100 mg oral capsule [...] 09/28/18 15:24:51 EDT, Route to Pharmacy Electronically, [id number], [facility]/pharmacy #0843 Start Date: 09/28/18 Stop Date: 03/27/19 Status: Ordered montelukast 10 mg oral tablet See Instructions, # 90 tablet, Refills 1 Tot. Refills 1, TAKE 1 TABLET BY MOUTH EVERY MORNING, [facility]/pharmacy #0843 Start Date: 11/29/18 Status: Ordered [...] 8:34:35 EST, Inhaler, Route to Pharmacy Electronically, [id number], [facility]/pharmacy #0843 Start Date: 04/05/18 Status: Ordered [...] prolapse(Confirmed) Active 1colo 2017 2EGD 2017 3E2017 58196; repeat 2027 5c2017 Social History Social History Type Response Smoking Status Former smoker; Other : quit 30 years ago; entered on: 07/24/17 Sex
--- OUTSIDE RECORDS SUMMARY | 2022-05-24 00:08 | XMS_ITS | Continuity of Care Document ---
Author Name Unknown Organization [facility] Address [address] [place] [id number]- Care Team Providers Care Gas Substation Operator Name Role Phone Eddie Messina MD Primary Care Physician [phone] Encounter [facility] Date(s): 10/09/21 - 11/08/21 [facility] [address] [place] [address]- Allergies, Adverse Reactions, Alerts No Known Allergies [...] Reason: Nursing Judgment 2Result Comment: sanofi pasteur [id number] 3Early/Late Reason: Nursing Judgment 4Result Comment: [id number] [employer] Medications Albuterol (Eqv-Proventil HFA) 90 mcg/inh inhalation aerosol 2 puffs, Inhalation, 4 times a day, # 20.1 each, 5 Refills, Maintenance, 10/13/21 9:29:00 EDT, [facility], 158, cm, 09/19/21 15:25:00 EDT, Height Start Date: 10/13/21 Status: Ordered bupropion extended release = 200 mg, By Mouth, Daily, 0 Refills, Maintenance, 04/22/18 8:53:19 EDT Start Date: 04/22/18 Status: Ordered digoxin 0.125 mg oral tablet 1, tablet, By Mouth, Daily, # 90 tablet, Refills 3, Tot. Refills 3, Maintenance, 11/08/21 12:38:00 EDT, Route to Pharmacy Electronically, [facility]/pharmacy #[id number], 158, cm, 11/07/21 11:39:00 EDT, Height Start Date: 11/08/21 Stop Date: 11/03/22 Status: Ordered dilTIAZem 360 mg/24 hours oral capsule, extended release 1 capsule = 360 mg, By Mouth, Daily, # 30 capsule, 2 Refills, Maintenance, 10/09/21 16:35:00 EDT, [facility]/pharmacy #0843, dose increase, 158, cm, 09/19/21 15:25:00 [...] 6 Refills, Maintenance, 10/15/21 10:41:00 EDT, Tablet, [facility]/pharmacy #0843, Partial fill upon patient request if the prescription is for a schedule II opioid drug., 158, cm, 09/19/21 15:25:00 EDT,... Start Date: 10/15/21 Status: Ordered Flovent HFA 110 mcg/inh inhalation aerosol 2 puffs, Inhalation, 2 times a day, RINSE THROAT AFTER USE, # 3 each, 0 Refills, Maintenance, 10/09/21 12:29:00 EDT, [id number], 158, cm, 09/19/21 15:25:00 EDT, Height [...] tablet, Refills 1, Route to Pharmacy Electronically, [facility], 158, cm, 07/30/21 8:48:00 EDT, Height Start [...] Confirmed Active Uterine prolapse Confirmed Active 1colo 2018 2E2017 3E2017 41139; repeat 2027 5c2017 Social History Social History Type Response Smoking Status Former smoker; Other : quit 30 years ago; entered on: 07/24/17 Sex Patient Care team information Personnel Name: Mayuri PASCUAL, Eddie Morales Address: Address: [address] [place] [id number]
--- OUTSIDE RECORDS SUMMARY | 2022-05-24 00:08 | XMS_ITS | Continuity of Care Document ---
Author Name Unknown Organization [facility] Jose Daniel Address [address] [place] [address]- Care Team Providers Care Fire Extinguisher Inspector Name Role Phone Mayuri PASCUAL, Eddie Morales Primary Care Physician Encounter [facility] Date(s): 01/21/22 - 02/20/22 [facility] [place] Adult [address] [place] [address]- Allergies, Adverse Reactions, Alerts No Known Allergies Immunizations Given and Recorded Vaccine Date Status Refusal Reason pneumococcal 20-valent conjugate vaccine 1 01/26/22 Recorded [id number] bivalent booster vax 01/26/22 Recorded influenza virus vaccine, inactivated 2 01/22/22 Gi kunal influenza virus vaccine, inactivated 12/20/20 Joshua rded influenza virus vaccine, inactivated 10/23/19 Joshua rded influenza virus vaccine, inactivated 3, 4 11/07/08 Given SARS-CoV-2 mRNA ([id number]) vax 05/25/21 Recorded SARS-CoV-2 (COVID-19) mRNA BNT-162b2 vac 12/20/20 Recorded SARS-CoV-2 (COVID-19) mRNA BNT-162b2 vac 06/03/20 Recorded SARS-CoV-2 (COVID-19) mRNA BNT-162b2 vac 05/01/20 Recorded Influenza Virus Vaccine (oldterm) 12/24/18 Recorde d Zoster Vaccine Live 12/14/18 Recorded tetanus/diphtheria/pertussis, acel(Tdap) 07/21/18 Given pneumococcal 13-valent vaccine 07/21/18 Given pneumococcal 23-valent vaccine 5, 6 11/07/08 Given 1Result Comment: Record received from [facility] Pharm[facility] 2Result Comment: [facility]-[id number] 3Early/Late Reason: Nursing Judgment 4Result Comment: sanofi pasteur [id number] 5Early/Late Reason: Nursing Judgment 6Result Comment: [id number] [employer] Medications Albuterol (Eqv-Proventil HFA) 90 mcg/inh inhalation aerosol 2 puffs, Inhalation, 4 times a day, # 20.1 each, 5 Refills, Maintenance, 10/13/21 9:29:00 EDT, [facility], 158, cm, 09/19/21 15:25:00 EDT, Height Start Date: 10/13/21 Status: Ordered bupropion extended release = 200 mg, By Mouth, Daily, 0 Refills, Maintenance, 04/22/18 8:53:19 EDT Start Date: 04/22/18 Status: Ordered digoxin 0.125 mg oral tablet 1, tablet, By Mouth, Daily, # 90 tablet, Refills 3, Tot. Refills 3, Maintenance, 11/08/21 12:38:00 EDT, Route to Pharmacy Electronically, [facility]/pharmacy #[id number], 158, cm, 11/07/21 11:39:00 EDT, Height Start Date: 11/08/21 Stop Date: 11/03/22 Status: Ordered DilTIAZem (Eqv-Cardizem CD) 360 mg/24 hours oral capsule, extended release 1 capsule, By Mouth, Daily, # 60 capsule, 2 Refills, Maintenance, 01/23/22 13:54:00 EST, [facility]/pharmacy #0843, 158, cm, 01/22/22 10:05:00 EST, Height, 61, kg, 12/02/21 11:51:00 EDT, Dry Weight Start Date: 01/23/22 Status: Ordered Eliquis 5 mg oral tablet 1 tablet, By Mouth, 2 times a day, # 60 tablet, 6 Refills, Maintenance, 02/13/22 15:42:00 EST, [facility], 158, cm, 02/07/22 9:00:00 EST, Height, 61, [...] tablet, Refills 2, Maintenance, 12/31/21 13:35:00 EST, [facility] Electronically, [facility], 158, cm, 12/02/21 12:48:00 EDT, Height, 61, [...] USE., # 60 each, 0 Refills, Maintenance, 02/14/22 16:14:00 EST, [facility] 279[facility], 30, INHALE 1 INHALATION 2 TIMES A DAY RINSE MOUTH AND THROATAFTER USE, 158, cm, 02/07/22 9:00:00 EST, Height, 6... Start Date: 02/14/22 Status: Ordered Problem List Condition Confirmation Course [...] prolapse Confirmed Active 1colo 2017 2EGD 2017 3E2017 70111; repeat 2027 5c2017 Social History Social History Type Response Smoking Status Former smoker; Other : quit 30 years ago; entered on: 07/24/17 Sex Patient Care team information Care Team Personnel Name: Mayuri PASCUAL, Eddie Morales Position: [facility] Primary Care Physician Member Role: PCP Address: Address: [address] [place] [address]- Care Team Related Persons Name: BRANDON CHANDRA Address: home [address] [place] [address]
--- OUTSIDE RECORDS SUMMARY | 2022-05-24 00:08 | XMS_ITS | Continuity of Care Document ---
Author Name Unknown Organization [facility] Jose Daniel Address [address] [place] [address]- Care Team Providers Care Filling Hand Name Role Phone Mayuri PASCUAL, Eddie Morales Primary Care Physician Encounter [facility] Date(s): 10/11/21 - 11/10/21 [facility] Adult [address] [place] [address]- Allergies, Adverse Reactions, Alerts No Known Allergies [...] Reason: Nursing Judgment 2Result Comment: sanofi pasteur [id number] 3Early/Late Reason: Nursing Judgment 4Result Comment: [id number] [employer] Medications Albuterol (Eqv-Proventil HFA) 90 mcg/inh inhalation aerosol 2 puffs, Inhalation, 4 times a day, # 20.1 each, 5 Refills, Maintenance, 10/13/21 9:29:00 EDT, [facility] ST[facility] 38[facility], 158, cm, 09/19/21 15:25:00 EDT, Height Start Date: 10/13/21 Status: Ordered bupropion extended release = 200 mg, By Mouth, Daily, 0 Refills, Maintenance, 04/22/18 8:53:19 EDT Start Date: 04/22/18 Status: Ordered digoxin 0.125 mg oral tablet 1, tablet, By Mouth, Daily, # 90 tablet, Refills 3, Tot. Refills 3, Maintenance, 11/08/21 12:38:00 EDT, Route to Pharmacy Electronically, [facility]/pharmacy #0843, 158, cm, 11/07/21 11:39:00 EDT, Height Start Date: 11/08/21 Stop Date: 11/03/22 Status: Ordered dilTIAZem 360 mg/24 hours oral capsule, extended release 1 capsule = 360 mg, By Mouth, Daily, # 30 capsule, 2 Refills, Maintenance, 10/09/21 16:35:00 EDT, [facility]/pharmacy #0843, dose increase, 158, cm, 09/19/21 15:25:00 [...] 6 Refills, Maintenance, 10/15/21 10:41:00 EDT, Tablet, [facility]/pharmacy #0843, Partial fill upon patient request if the prescription is for a schedule II opioid drug., 158, cm, 09/19/21 15:25:00 EDT,... Start Date: 10/15/21 Status: Ordered Flovent HFA 110 mcg/inh inhalation aerosol 2 puffs, Inhalation, 2 times a day, RINSE THROAT AFTER USE, # 3 each, 0 Refills, Maintenance, 10/09/21 12:29:00 EDT, [facility]/pharmacy #0843, 158, cm, 09/19/21 15:25:00 EDT, Height [...] tablet, Refills 1, Route to Pharmacy Electronically, [facility], 158, cm, 07/30/21 8:48:00 EDT, Height Start [...] Uterine prolapse Confirmed Active 1c2017 2E2017 3E2017 35504; repeat 2027 5c2017 Social History Social History Type Response Smoking Status Former smoker; Other : quit 30 years ago; entered on: 07/24/17 Sex Patient Care team information Personnel Name: Mayuri PASCUAL, Eddie Morales Address: Address: [address] [place] [address] [id number]
--- OUTSIDE RECORDS SUMMARY | 2022-05-24 00:08 | XMS_ITS | Continuity of Care Document ---
Author Name Unknown Organization [facility] Jose Daniel Address [address] [place] [address]- Care Team Providers Care Rivet Tapping Machine Operator Name Role Phone Eddie Messina MD Primary Care Physician Encounter [facility] Date(s): 09/19/21 - 09/26/21 [facility] Adult [address] [place] [address]- Attending Physician: Not on Staff, Attending MD Referring Physician: Eddie Messina MD Allergies, Adverse Reactions, Alerts No Known Allergies [...] Reason: Nursing Judgment 2Result Comment: sanofi pasteur [id number] 3Early/Late Reason: Nursing Judgment 4Result Comment: [id number] [employer] Medications Albuterol (Eqv-ProAir HFA) 90 mcg/inh inhalation aerosol 2 puffs, Inhalation, 4 times a day, # 3 each, 1 Refills, Maintenance, 05/15/21 9:52:00 EDT, [facility]/pharmacy #0843, 2 puffs Inhalation 4 times a day, 158, cm, 02/26/21 11:08:00 EST, Height Start Date: 05/15/21 Status: Ordered bupropion extended release = 200 mg, By Mouth, Daily, 0 Refills, Maintenance, 04/22/18 8:53:19 EDT Start Date: 04/22/18 Status: Ordered Chewable Calcium with Vitamin D Daily, 0 Refills, Maintenance, 01/12/20 10:08:00 EST, Partial fill upon patient request if the prescription is for a schedule II opioid drug. Start Date: 01/12/20 Status: Ordered Digoxin Daily, 0 Refills, Maintenance, 09/19/21 15:38:00 EDT, Partial fill upon patient request if the prescription is for a schedule II opioid drug. Start Date: 09/19/21 Status: Ordered Diltiazem 0 Refills, Maintenance, 09/19/21 15:38:00 EDT, Partial fill upon patient request if the prescription is for a schedule II opioid drug. Start Date: 09/19/21 Status: Ordered Eliquis 5 mg oral tablet 1 tablet = 5 mg, By Mouth, 2 times a day, 0 Refills, Maintenance, 09/19/21 15:39:00 EDT, Partial fill upon patient request if the prescription is for a schedule II opioid drug. Start Date: 09/19/21 Status: Ordered Flonase 50 mcg/inh nasal spray 1 sprays, Nares, Both, 2 times a day, # 16 Gm, 0 Refills, Maintenance, 07/07/19 13:13:00 EDT, [place], [facility]/pharmacy #0843, 1 sprays Nares, Both 2 times a day, 158, cm, 06/16/19 15:37:00 EDT, Height, 95.45, kg, 01/08/18 3:57:00 EST, Dry Weight Start Date: 07/07/19 Status: Ordered Flovent HFA 110 mcg/inh inhalation aerosol 2 puffs, Inhalation, 2 times a day, RINSE THROAT AFTER USE, # 3 each, 1 Refills, Maintenance, 05/15/21 9:51:00 EDT, [facility]/pharmacy #0843, 158, cm, 02/26/21 11:08:00 EST, Height Start Date: 05/15/21 Status: Ordered gabapentin 300 mg oral capsule [...] tablet, Refills 1, Route to Pharmacy Electronically, [facility], 158, cm, 07/30/21 8:48:00 EDT, Height Start Date: 08/29/21 Status: Ordered Nafcillin Every 4 hours, Maintenance, 09/19/21 15:39:00 EDT Start Date: 09/19/21 Status: Ordered NEBULIZER MACHINE, TUBING, FACE MASK [...] Mouth, Daily, # 90 tablet, 0 Refills, 158, cm, 07/30/21 8:48:00 EDT, Height Start Date: 08/04/21 Status: Ordered Tessalon Perles = 100 mg, By Mouth, 3 times a day, 0 Refills, Maintenance, 09/19/21 15:37:00 EDT, Partial fill uponpatient request if the prescription is for a schedule II opioid drug. Start Date: 09/19/21 Status: Ordered Problem List Condition Effective Dates Status Health Status Inform ant Asthma(Confirmed) Active Atrial fibrillation(Confirmed) Active Degenerative disc disease, lumbar(Confirmed) Active Diverticulosis(Confirmed) 1 Active Erosive esophagitis(Confirmed) 2 Active GERD (gastroesophageal reflu x disease)(Confirmed) Active History of pneumothorax(Confirmed) Active Hiatal hernia(Confirmed) 3 Active H/O bariatric surgery(Confirmed) Active History of colonoscopy(Confirmed) 4 Active History of COVID-19(Confirmed) Active Hoarseness of voice(Confirmed) Active Hypercalcemia(Confirmed) Active Hypercholesterolemia(Confirmed) Active Hypertension(Confirmed) Active Internal hemorrhoids(Confirmed) 5 Active Abnormal liver function test(Confirmed) Active Osteoarthritis(Confirmed) Active Osteoarthritis of right hip(Confirmed) Active Osteopenia(Confirmed) Active Left shoulder pain(Confirmed) Active Takotsubo cardiomyopathy(Confirmed) Active Uterine prolapse(Confirmed) Active 1colo 2017 2EGD 2017 3EGD 2017 28256; repeat 2027 5c2017 Vital Signs Most recent to oldest [Reference Range]: 1 Height 158 cm (09/19/21 3:25 PM) Weight 59.0 kg (09/19/21 3:25 PM) Oxygen Saturation [94-100 %] 98 % (09/19/21 3:25 PM) Pulse Rate [55-90 bpm] 105 bpm *H* (09/19/21 3:25 PM) Body Mass Index [18.5-24.99] 23.63 (09/19/21 3:25 PM) Blood Pressure [90-138/55-84 mm Hg] 118/ 68mm Hg (09/19/21 3:25 PM) Respiratory Rate [16-30 br/min] 16 br/mi n (09/19/21 3:25 PM) Blood pressure sites Arm, left (09/19/21 3:25 PM) Weight Obtained Via Patient/family state d (09/19/21 3:25 PM) Social History Social History Type Response Smoking Status Former smoker; Other : quit 30 years ago; entered on: 07/24/17 Sex
--- OUTSIDE RECORDS SUMMARY | 2022-05-24 00:08 | XMS_ITS | Continuity of Care Document ---
Author Name Unknown Organization [facility] Address [address] [place] [address]- Care Team Providers Care Cans Vacuum Tester Name Role Phone Eddie Messina MD Primary Care Physician [phone] Encounter [facility] Date(s): 05/28/21 - 06/27/[address] [address] Attending Physician: Pili Chung Admitting Physician: AdmPili dean Referring Physician: AdmtrPili Allergies, Adverse Reactions, Alerts No Known Allergies [...] Reason: Nursing Judgment 2Result Comment: sanofi pasteur [id number] 3Early/Late Reason: Nursing Judgment 4Result Comment: [id number] [employer] Medications Albuterol (Eqv-ProAir HFA) 90 mcg/inh inhalation aerosol 2 puffs, Inhalation, 4 times a day, # 3 each, 1 Refills, Maintenance, 05/15/21 9:52:00 EDT, [facility]/pharmacy #0843, 2 puffs Inhalation 4 times a day, 158, cm, 02/26/21 11:08:00 EST, Height Start Date: 05/15/21 Status: Ordered amLODIPine 2.5 mg oral tablet 2.5 mg, 1, tablet, By Mouth, Daily, # 90 tablet, Refills 1, Tot. Refills 1, Maintenance, 02/26/21 11:31:00 EST, Route to Pharmacy Electronically, [facility]/pharmacy #0843, Partial fill upon patient requestif the prescription is for a schedule II opioid jose... Start Date: 02/26/21 Status: Ordered bupropion extended release = 200 [...] Gm, 0 Refills, Maintenance, 07/07/19 13:13:00 EDT, [place], [facility], 1 sprays Nares, Both 2 times a day, 158, cm, 06/16/19 15:37:00 EDT, Height, 95.45, kg, 01/08/18 3:57:00 EST, Dry Weight Start Date: 07/07/19 Status: Ordered Flovent HFA 110 mcg/inh inhalation aerosol 2 puffs, Inhalation, 2 times a day, RINSE THROAT AFTER USE, # 3 each, 1 Refills, Maintenance, 05/15/21 9:51:00 EDT, [facility], 158, cm, 02/26/21 11:08:00 EST, Height [...] tablet, Refills 1, Route to Pharmacy Electronically, [facility], 158, cm, 01/23/21 6:49:00 EST, Height Start Date: 02/24/21 Status: Ordered NEBULIZER MACHINE, TUBING, FACE MASK [...] Daily, # 90 tablet, 0 Refills, Maintenance, 05/15/21 9:45:00 EDT, 158, cm, 02/26/21 11:08:00 EST, Height Start Date: 05/15/21 Status: Ordered Problem List Condition Effective Dates Status Health Status Inform ant Asthma(Confirmed) Active Degenerative disc disease, lumbar(Confirmed) Active Diverticulosis(Confirmed) 1 Active Erosive esophagitis(Confirmed) 2 Active GERD (gastroesophageal reflu x disease)(Confirmed) Active Hiatal hernia(Confirmed) 3 Active H/O bariatric surgery(Confirmed) Active History of colonoscopy(Confirmed) 4 Active Hoarseness of voice(Confirmed) Active Hypercalcemia(Confirmed) Active Hypercholesterolemia(Confirmed) Active HTN (hypertension)(Confirmed) Active Hypertension(Confirmed) Active Internal hemorrhoids(Confirmed) 5 Active Abnormal liver function test(Confirmed) Active Osteoarthritis(Confirmed) Active Osteoarthritis of right hip(Confirmed) Active Osteopenia(Confirmed) Active Left shoulder pain(Confirmed) Active Takotsubo cardiomyopathy(Confirmed) Active Uterine prolapse(Confirmed) Active 1colo 2017 2E2017 3E2017 51882; repeat 2027 5c2017 Social History Social History Type Response Smoking Status Former smoker; Other : quit 30 years ago; entered on: 07/24/17 Sex
--- OUTSIDE RECORDS SUMMARY | 2022-05-24 00:08 | XMS_ITS | Continuity of Care Document ---
Author Name Unknown Organization [facility] Address [address] [place] [address]- Care Team Providers Care Physical Therapy Coordinator Name Role Phone Eddie Messina MD Primary Care Physician [phone] Encounter [facility] [place] Date(s): 10/11/21 - 11/10/21 [facility] [address] [place] [address]- Allergies, Adverse Reactions, Alerts No Known Allergies [...] Reason: Nursing Judgment 2Result Comment: sanofi pasteur [id number] 3Early/Late Reason: Nursing Judgment 4Result Comment: [id number] [employer] Medications Albuterol (Eqv-Proventil HFA) 90 mcg/inh inhalation aerosol 2 puffs, Inhalation, 4 times a day, # 20.1 each, 5 Refills, Maintenance, 10/13/21 9:29:00 EDT, [facility], 158, cm, 09/19/21 15:25:00 EDT, Height Start Date: 10/13/21 Status: Ordered bupropion extended release = 200 mg, By Mouth, Daily, 0 Refills, Maintenance, 04/22/18 8:53:19 EDT Start Date: 04/22/18 Status: Ordered digoxin 0.125 mg oral tablet 1, tablet, By Mouth, Daily, # 90 tablet, Refills 3, Tot. Refills 3, Maintenance, 11/08/21 12:38:00 EDT, Route to Pharmacy Electronically, [facility]/pharmacy #0843, 158, cm, 11/07/21 11:39:00 EDT, Height Start Date: 11/08/21 Stop Date: 11/03/22 Status: Ordered dilTIAZem 360 mg/24 hours oral capsule, extended release 1 capsule = 360 mg, By Mouth, Daily, # 30 capsule, 2 Refills, Maintenance, 10/09/21 16:35:00 EDT, [facility]/pharmacy #0843, dose increase, 158, cm, 09/19/21 [...] 6 Refills, Maintenance, 10/15/21 10:41:00 EDT, Tablet, [facility]/pharmacy #0843, Partial fill upon patient request if the prescription is for a schedule II opioid drug., 158, cm, 09/19/21 15:25:00 EDT,... Start Date: 10/15/21 Status: Ordered Flovent HFA 110 mcg/inh inhalation aerosol 2 puffs, Inhalation, 2 times a day, RINSE THROAT AFTER USE, # 3 each, 0 Refills, Maintenance, 10/09/21 12:29:00 EDT, [facility]/pharmacy #0843, 158, cm, 09/19/21 15:25:00 EDT, [...] tablet, Refills 1, Route to Pharmacy Electronically, [facility], 158, cm, 07/30/21 8:48:00 EDT, Height Start [...] prolapse Confirmed Active 1colo 2018 2E2017 3E2017 05354; repeat 2027 5c2017 Social History Social History Type Response Smoking Status Former smoker; Other : quit 30 years ago; entered on: 07/24/17 Sex Patient Care team information Personnel Name: Mayuri PASCUAL, Eddie Morales Address: Address: [address] [place] [id number]
--- OUTSIDE RECORDS SUMMARY | 2022-05-24 00:08 | XMS_ITS | Continuity of Care Document ---
Author Name Unknown Organization [facility] Jose Daniel lt Address [address] [place] [address]- Care Team Providers Care Office Workforce Planner Name Role Phone Eddie Messina MD Primary Care Physician [phone] [place] [facility] [place] 05/07/22 - 05/14/22 [facility] Adult [address] [place] [address]- Attending Physician: Tray MCKEON, Nayeli Walker Referring Physician: Eddie Messina MD Allergies, Adverse Reactions, Alerts No Known Allergies Immunizations Given and Recorded Vaccine Date Status Refusal Reason pneumococcal 20-valent conjugate vaccine 1 01/26/22 Recorded [id number] bivalent booster vax 01/26/22 Recorded influenza virus vaccine, inactivated 2 01/22/22 Gi kunal influenza virus vaccine, inactivated 12/20/20 Joshua rded influenza virus vaccine, inactivated 10/23/19 Joshua rded influenza virus vaccine, inactivated 3, 4 11/07/08 Given SARS-CoV-2 mRNA (begbysx-bkvo-tgnre) vax 05/25/21 Recorded SARS-CoV-2 (COVID-19) mRNA BNT-162b2 vac 12/20/20 Recorded SARS-CoV-2 (COVID-19) mRNA BNT-162b2 vac 06/03/20 Recorded SARS-CoV-2 (COVID-19) mRNA BNT-162b2 vac 05/01/20 Recorded Influenza Virus Vaccine (oldterm) 12/24/18 Recorde d Zoster Vaccine Live 12/14/18 Recorded tetanus/diphtheria/pertussis, acel(Tdap) 07/21/18 Given pneumococcal 13-valent vaccine 07/21/18 Given pneumococcal 23-valent vaccine 5, 6 11/07/08 Given 1Result Comment: Record received from [facility] 2Result Comment: [id number] 3Early/Late Reason: Nursing Judgment 4Result Comment: sanofi pasteur [id number] 5Early/Late Reason: Nursing Judgment 6Result Comment: [id number] [employer]ck [employer] Medications Albuterol (Eqv-Proventil HFA) 90 mcg/inh inhalation aerosol 2 puffs, Inhalation, 4 times a day, # 20.1 each, 5 Refills, Maintenance, 10/13/21 9:29:00 EDT, [facility] 96991, 158, cm, 09/19/21 15:25:00 EDT, Height Start Date: 10/13/21 Status: Ordered bupropion extended release = 200 mg, By Mouth, Daily, 0 Refills, Maintenance, 04/22/18 8:53:19 EDT Start Date: 04/22/18 Status: Ordered digoxin 0.125 mg oral tablet 1, tablet, By Mouth, Daily, # 90 tablet, Refills 3, Tot. Refills 3, Maintenance, 11/08/21 12:38:00 EDT, Route to Pharmacy Electronically, [facility]/pharmacy #0843, 158, cm, 11/07/21 11:39:00 EDT, Height Start Date: 11/08/21 Stop Date: 11/03/22 Status: Ordered DilTIAZem (Eqv-Cardizem CD) 360 mg/24 hours oral capsule, extended release 1 capsule, By Mouth, Daily, # 60 capsule, 2 Refills, Maintenance, 01/23/22 13:54:00 EST, [facility]/pharmacy #0843, 158, cm, 01/22/22 10:05:00 EST, Height, 61, kg, 12/02/21 11:51:00 EDT, Dry Weight Start Date: 01/23/22 Status: Ordered Eliquis 5 mg oral tablet 1 tablet, By Mouth, 2 times a day, # 60 tablet, 3 Refills, Maintenance, 05/12/22 11:43:00 EDT, [facility] 81605, 158, cm, 05/07/22 10:57:00 EDT, Height, 61, kg, 12/02/21 11:51:00 EDT, Dry Weight Start Date: 05/12/22 Status: Ordered Flonase 50 mcg/inh nasal spray 1 sprays, Nares, Both, 2 times a day, # 16 Gm, 11 Refills, Maintenance, 04/25/22 13:28:00 EDT, [place], [facility]/pharmacy #0843, Partial fill upon patient request if the prescription is for a schedule II opioid drug., 1 sprays Nares, Both 2 times a day, 158,... Start Date: 04/25/22 Status: Ordered LaMICtal 200 mg oral tablet 1 tablet = 200 mg, By Mouth, Daily, # 180 tablet, 0 Refills, Maintenance, 12/15/16 2:59:16, Tablet Start Date: 12/15/16 Status: Ordered montelukast 10 mg oral tablet 1, tablet, By Mouth, Daily in AM, # 90 tablet, Refills 2, Maintenance, 12/31/21 13:35:00 EST, [facility] Electron[facility], [facility] 66610, 158, cm, 12/02/21 12:48:00 EDT, Height, 61, [...] EDT, Height Start Date: 11/05/21 Status: Ordered Trelegy Ellipta Inhalation, Daily, 0 Refills, Maintenance, 04/25/22 13:04:00 EDT, Partial fill upon patient requestif the prescription is for a schedule II opioid drug. Start Date: 04/25/22 Status: Ordered Problem List Condition Confirmation Course [...] Active Abnormal liver function test Confirmed Active Anticoagulant long-term use Confirmed Active Osteoarthritis Confirmed Active Osteoarthritis of right hip Confirmed Active Osteopenia Confirmed Active Left shoulder pain Confirmed Active Takotsubo cardiomyopathy Confirmed Active Uterine prolapse Confirmed Active 1c2017 2E2017 3E2017 12761; repeat 2027 Vital Signs Most recent to oldest [Reference Range]: 1 Height 158 cm (05/07/22 10:57 AM) Weight 62.2 kg (05/07/22 10:57 AM) Oxygen Saturation [94-100 %] 95 % (05/07/22 10:57 AM) Pulse Rate [55-90 bpm] 85 bpm (05/07/22 10:57 AM) Body Mass Index [18.5-24.99 kg/m2] 24.92 kg/m2 (05/07/22 10:57 AM) Blood Pressure [90-138/55-84 mm Hg] 132/ 76mm Hg (05/07/22 10:57 AM) Temperature [96.8-100.4 DegF] 97.6 DegF (05/07/22 10:57 AM) Mode of Delivery (Oxygen) Room air (05/07/22 10:57 AM) Blood pressure sites Arm, right (05/07/22 10:57 AM) Temperature Route Oral (05/07/22 10:57 AM) Weight Obtained Via Standing scale (05/07/22 10:57 AM) Social History Social History Type Response Smoking Status Former smoker; Other : quit 30 years ago; entered on: 07/24/17 Sex Patient Care team information Care Team Personnel Name: Eddie Messina MD Position: S Primary Care Physician Member Role: PCP Address: Address: [address] [place] [address]- Care Team Related Persons Name: BRANDON CHANDRA Address: home [address] [place] [address]
--- OUTSIDE RECORDS SUMMARY | 2022-05-24 00:08 | XMS_ITS | Continuity of Care Document ---
Author Name Unknown Organization [facility] Address [address] [place] [address]- Care Team Providers Care Molder Machine Name Role Phone Eddie Messina MD Primary Care Physician Encounter [facility] [place] Date(s): 12/03/21 - 01/02/22 [facility] [address] [place] [address]- Allergies, Adverse Reactions, Alerts No Known Allergies [...] Reason: Nursing Judgment 2Result Comment: sanofi pasteur [id number] 3Early/Late Reason: Nursing Judgment 4Result Comment: [id number] [employer] Medications Albuterol (Eqv-Proventil HFA) 90 mcg/inh inhalation aerosol 2 puffs, Inhalation, 4 times a day, # 20.1 each, 5 Refills, Maintenance, 10/13/21 9:29:00 EDT, [facility], 158, cm, 09/19/21 15:25:00 EDT, Height Start Date: 10/13/21 Status: Ordered bupropion extended release = 200 mg, By Mouth, Daily, 0 Refills, Maintenance, 04/22/18 8:53:19 EDT Start Date: 04/22/18 Status: Ordered digoxin 0.125 mg oral tablet 1, tablet, By Mouth, Daily, # 90 tablet, Refills 3, Tot. Refills 3, Maintenance, 11/08/21 12:38:00 EDT, Route to Pharmacy Electronically, [facility]/pharmacy #0843, 158, cm, 11/07/21 11:39:00 EDT, Height Start Date: 11/08/21 Stop Date: 11/03/22 Status: Ordered DilTIAZem (Eqv-Cardizem CD) 360 mg/24 hours oral capsule, extended release 1 capsule, By Mouth, Daily, # 60 capsule, 2 Refills, Maintenance, 11/27/21 9:57:00 EDT, [facility], 158, cm, 11/07/21 11:39:00 EDT, Height Start Date: 11/27/21 Status: Ordered Eliquis 5 mg oral tablet [...] 6 Refills, Maintenance, 10/15/21 10:41:00 EDT, Tablet, [facility]/pharmacy #0843, Partial fill upon patient request if the prescription is for a schedule II opioid drug., 158, cm, 09/19/21 15:25:00 EDT,... Start Date: 10/15/21 Status: Ordered Flovent HFA 110 mcg/inh inhalation aerosol 2 puffs, Inhalation, 2 times a day, RINSE THROAT AFTER USE, # 3 each, 0 Refills, Maintenance, 10/09/21 12:29:00 EDT, [facility]/pharmacy #0843, 158, cm, 09/19/21 15:25:00 EDT, [...] tablet, Refills 2, Maintenance, 12/31/21 13:35:00 EST, [facility] Electron[facility], [facility] 0[facility], 158, cm, 12/02/21 12:48:00 EDT, Height, 61, [...] Uterine prolapse Confirmed Active 1c2017 2E2017 3E2017 18469; repeat 2027 5c2017 Social History Social History Type Response Smoking Status Former smoker; Other : quit 30 years ago; entered on: 07/24/17 Sex Patient Care team information Care Team Personnel Name: Mayuri PASCUAL, Eddie Morales Position: [facility] Primary Care Physician Member Role: PCP Address: Address: [address] [place] [address]- Care Team Related Persons Name: BRANDON CHANDRA Address: home [address] [place] [address]
--- OUTSIDE RECORDS SUMMARY | 2022-05-24 00:08 | XMS_ITS | Continuity of Care Document ---
Author Name Unknown Organization [facility] Jose Daniel Address [address] [place] [address]- Care Team Providers Care Publication Director Name Role Phone Mayuri PASCUAL, Eddie Morales Primary Care Physician [place] [facility] [place] - 11/02/21 [facility] Adult [address] [place] [address]- Allergies, Adverse Reactions, Alerts No Known Allergies [...] Reason: Nursing Judgment 2Result Comment: sanofi pasteur [id number] 3Early/Late Reason: Nursing Judgment 4Result Comment: [id number] [employer]ck [employer] Medications Albuterol (Eqv-Proventil HFA) 90 mcg/inh inhalation aerosol 2 puffs, Inhalation, 4 times a day, # 20.1 each, 5 Refills, Maintenance, 10/13/21 9:29:00 EDT, [facility], 158, cm, 09/19/21 15:25:00 EDT, Height Start Date: 10/13/21 Status: Ordered bupropion extended release = 200 mg, By Mouth, Daily, 0 Refills, Maintenance, 04/22/18 8:53:19 EDT Start Date: 04/22/18 Status: Ordered digoxin 0.125 mg oral tablet 1, tablet, By Mouth, Daily, # 14 tablet, Refills 0, Maintenance, 10/28/21 12:58:00 EDT, Route to Pharmacy Electronically, [facility], 158, cm, 10/24/21 8:38:00 EDT, Height Start Date: 10/28/21 Status: Ordered dilTIAZem 360 mg/24 hours oral capsule, extended release 1 capsule = 360 mg, By Mouth, Daily, # 30 capsule, 2 Refills, Maintenance, 10/09/21 16:35:00 EDT, [facility], dose increase, 158, cm, 09/19/21 15:25:00 [...] 6 Refills, Maintenance, 10/15/21 10:41:00 EDT, Tablet, [facility], Partial fill upon patient request if [...] tablet, Refills 1, Route to Pharmacy Electronically, [facility] 80845, 158, cm, 07/30/21 8:48:00 EDT, Height Start [...] Daily, # 90 tablet, 0 Refills, Maintenance, 10/08/21 12:14:00 EDT, 158, cm, 09/19/21 15:25:00 EDT, Height Start Date: 10/08/21 Status: Ordered Problem List Condition Effective Dates [...] Uterine prolapse(Confirmed) Active 1colo 2017 2E2017 3E2017 94565; repeat 2027 5c2017 Social History Social History Type Response Smoking Status Former smoker; Other : quit 30 years ago; entered on: 07/24/17 Sex Care Team Personnel Name: Mayuri PASCUAL, Eddie Morales Address: [address] [place] [address] [[email or web address]]
--- OUTSIDE RECORDS SUMMARY | 2022-05-24 00:08 | XMS_ITS | Continuity of Care Document ---
Author Name Unknown Organization [facility] Jose Daniel lt Address [address] [place] [address]- Care Team Providers Care Control System Manager Name Role Phone Eddie Messina MD Primary Care Physician [phone] Encounter [facility] [place](s): 06/14/19 - 07/14/19 [facility] Adult [address] [place] [address]- [facility] Attending Physician: Mylene Muller NP Referring Physician: [...] Given 1Early/Late Reason: Nursing Judgment 2Result Comment: [id number] [employer] 3Early/Late Reason: Nursing Judgment 4Result Comment: sanofi pasteur [id number] Medications albuterol 0.083% inhalation solution 3 mL [...] Gm, 0 Refills, Maintenance, 07/07/19 13:13:00 EDT, [place], [facility]/pharmacy #0843, 1 sprays Nares, Both 2 times a day, 158, cm, 06/16/19 15:37:00 EDT, Height, 95.45, kg, 01/08/18 3:57:00 EST, Dry Weight Start Date: 07/07/19 Status: Ordered gabapentin 100 mg oral capsule 100 mg, 1, capsule, By Mouth, 3 times a day, DOSAGE DECREASE, # 90 capsule, Refills 0, Tot. Refills0, Maintenance, 06/30/19 13:01:00 EDT, Route to Pharmacy Electronically, [facility]/pharmacy #0843, 158, cm, 06/16/19 15:37:00 EDT, Height, [...] 9:52:00 EST, Route to Pharmacy Electronically, [facility]/pharmacy #0843, 158, cm, 02/04/19 11:28:00 EST, Height, 95.45, kg, 01/08/18 3:57:00 EST, Dry Weight Start Date: 03/29/19 Stop Date: 09/25/19 Status: Ordered montelukast 10 mg oral tablet See Instructions, # 90 tablet, Refills 1 Tot. Refills 1, TAKE 1 TABLET BY MOUTH EVERY MORNING, [facility]/pharmacy #0843 Start Date: 11/29/18 Status: [...] 20:05:00 EST, Inhaler, Route to Pharmacy Electronically, [id number],[facility]/pharmacy #0843, 158, cm, 04/04/19 13:57:00 [...] prolapse(Confirmed) Active 1colo 2017 2EGD 2017 3E2017 76675; repeat 2027 5c2017 Social History Social History Type Response Smoking Status Former smoker; Other : quit 30 years ago; entered on: 07/24/17 Sex
--- OUTSIDE RECORDS SUMMARY | 2022-05-24 00:08 | XMS_ITS | Continuity of Care Document ---
Author Name Unknown Organization [facility] [place] Jose Daniel Address [address] [place] [address]- Care Team Providers Care Cement Storage Worker Name Role Phone Mayuri PASCUAL, Eddie Morales Primary Care Physician [place] [facility] [place]21 [facility] [place] Adult [address] [place] [address]- Encounter Diagnosis Asthma(Discharge Diagnosis) - 07/30/21 Attending Physician: Renee Chin NP Allergies, Adverse Reactions, Alerts No Known Allergies [...] Reason: Nursing Judgment 2Result Comment: sanofi pasteur [id number] 3Early/Late Reason: Nursing Judgment 4Result Comment: [id number] [employer]ck [employer] Medications Albuterol (Eqv-ProAir HFA) 90 mcg/inh inhalation aerosol 2 puffs, Inhalation, 4 times a day, # 3 each, 1 Refills, Maintenance, 05/15/21 9:52:00 EDT, [facility]/pharmacy #0843, 2 puffs Inhalation 4 times a day, 158, cm, 02/26/21 11:08:00 EST, Height Start Date: 05/15/21 Status: Ordered amLODIPine 2.5 mg oral tablet 2.5 mg, 1, tablet, By Mouth, Daily, # 90 tablet, Refills 1, Tot. Refills 1, Maintenance, 02/26/21 11:31:00 EST, Route to Pharmacy Electronically, [facility]/pharmacy #0843, Partial fill upon patient requestif the [...] Gm, 0 Refills, Maintenance, 07/07/19 13:13:00 EDT, [place], [facility]/pharmacy #0843, 1 sprays Nares, Both 2 times a day, 158, cm, 06/16/19 15:37:00 EDT, Height, 95.45, kg, 01/08/18 3:57:00 EST, Dry Weight Start Date: 07/07/19 Status: Ordered Flovent HFA 110 mcg/inh inhalation aerosol 2 puffs, Inhalation, 2 times a day, RINSE THROAT AFTER USE, # 3 each, 1 Refills, Maintenance, 05/15/21 9:51:00 EDT, [facility]/pharmacy #0843, 158, cm, 02/26/21 11:08:00 EST, Height [...] tablet, Refills 1, Route to Pharmacy Electronically, [facility] 258[facility], 158, cm, 01/23/21 6:49:00 EST, Height Start [...] EDT, Height Start Date: 08/04/21 Status: Ordered Problem List Condition Effective Dates [...] Uterine prolapse(Confirmed) Active 1colo 2017 2E2017 3E2017 58086; repeat 2027 5colo 2017 Diagnosis Diagnosis Type Effective Dates Health Status [facility] Service Informant Asthma Discharge Diagnosis 07/30/21 Vital Signs Most recent to oldest [Reference Range]: 1 Height 158 cm (07/30/21 8:48 AM) Weight 64.54 kg (07/30/21 8:48 AM) Body Mass Index [18.5-24.99] 25.85 *H* (07/30/21 8:48 AM) Weight Obtained Via Standing scale (07/30/21 8:48 AM) Social History Social History Type Response Smoking Status Former smoker; Other : quit 30 years ago; entered on: 07/24/17 Sex
--- OUTSIDE RECORDS SUMMARY | 2022-05-24 00:08 | XMS_ITS | Continuity of Care Document ---
Author Name Unknown Organization [facility] Address [address] [place] [address]- Care Team Providers Care Mdm Sr Name Role Phone Eddie Messina MD [id number] Date[facility] - 03/14/[address] [address]- Attending Physician: Not on Staff, Attending MD Referring Physician: Not on Staff, Referring MD Allergies, Adverse Reactions, Alerts No Known [...] Reason: Nursing Judgment 2Result Comment: sanofi pasteur [id number] 3Early/Late Reason: Nursing Judgment 4Result Comment: [id number] [employer] Medications Albuterol (Eqv-ProAir HFA) 90 mcg/inh inhalation aerosol 2 puffs, Inhalation, 4 times a day, # 25.5 each, 1 Refills, [facility] STORE 16986, 90, INHALE 2 PUFFS BY MOUTH 4 TIMES A DAY, 158, cm, 10/08/20 7:48:00 EDT, Height Start Date: 12/13/20 Status: Ordered albuterol 0.083% inhalation solution 3 mL = 2.5 mg, Inhalation, Every 4 hours, PRN for wheezing, # 25 each, 5 Refills, Maintenance, 10/20/19 15:51:00 EDT, Solution, [facility]/pharmacy #0843, 158, cm, 09/08/19 15:53:00 EDT, Height, 95.45, kg, 01/08/18 3:57:00 EST, Dry Weight Start Date: 10/20/19 Status: Ordered amLODIPine 2.5 mg oral tablet 2.5 mg, 1, tablet, By Mouth, Daily, # 90 tablet, Refills 1, Tot. Refills 1, Maintenance, 02/26/21 11:31:00 EST, [facility], Partial fill upon patient requestif the [...] Gm, 0 Refills, Maintenance, 07/07/19 13:13:00 EDT, [place], [facility]/pharmacy #0843, 1 sprays Nares, Both 2 times a day, 158, cm, 06/16/19 15:37:00 EDT, Height, 95.45, kg, 01/08/18 3:57:00 EST, Dry Weight Start Date: 07/07/19 Status: Ordered Flovent HFA 110 mcg/inh inhalation aerosol 2 puffs, Inhalation, 2 times a day, RINSE THROAT AFTER USE, # 36 each, 1 Refills, [facility], 158, cm, 10/08/20 7:48:00 EDT, Height Start [...] tablet, Refills 1, Route to Pharmacy Electronically, [facility], 158, cm, 01/23/21 6:49:00 EST, Height Start [...] = 40 mg, By Mouth, Daily, # 90 tablet, 1 Refills, Maintenance, 01/21/21 9:47:00 EST, 158, cm, 01/21/21 9:08:00 EST, Height Start Date: 01/21/21 Status: Ordered Problem List Condition Effective Dates [...] prolapse(Confirmed) Active 1colo 2017 2EGD 2017 3E2017 11619; repeat 2027 5c2017 Social History Social History Type Response Smoking Status Former smoker; Other : quit 30 years ago; entered on: 07/24/17 Sex
--- OUTSIDE RECORDS SUMMARY | 2022-05-24 00:08 | XMS_ITS | Continuity of Care Document ---
Author Name Unknown Organization [facility] Address [address] [place] [address]- Care Team Providers Care Page Designer Name Role Phone Eddie Messina MD Primary Care Physician [place] [facility] [place] 11/20/21 - 12/20/21 [facility] [address] [place] [address]- Allergies, Adverse Reactions, Alerts No Known Allergies [...] Reason: Nursing Judgment 2Result Comment: sanofi pasteur [id number] 3Early/Late Reason: Nursing Judgment 4Result Comment: [id number] merck and co Medications Albuterol (Eqv-Proventil HFA) 90 mcg/inh inhalation aerosol 2 puffs, Inhalation, 4 times a day, # 20.1 each, 5 Refills, Maintenance, 10/13/21 9:29:00 EDT, [facility], 158, cm, 09/19/21 15:25:00 EDT, Height Start Date: 10/13/21 Status: Ordered bupropion extended release = 200 mg, By Mouth, Daily, 0 Refills, Maintenance, 04/22/18 8:53:19 EDT Start Date: 04/22/18 Status: Ordered digoxin 0.125 mg oral tablet 1, tablet, By Mouth, Daily, # 90 tablet, Refills 3, Tot. Refills 3, Maintenance, 11/08/21 12:38:00 EDT, Route to Pharmacy Electronically, [facility]/pharmacy #0843, 158, cm, 11/07/21 11:39:00 EDT, Height Start Date: 11/08/21 Stop Date: 11/03/22 Status: Ordered DilTIAZem (Eqv-Cardizem CD) 360 mg/24 hours oral capsule, extended release 1 capsule, By Mouth, Daily, # 60 capsule, 2 Refills, Maintenance, 11/27/21 9:57:00 EDT, [facility], 158, cm, 11/07/21 11:39:00 EDT, Height Start [...] 6 Refills, Maintenance, 10/15/21 10:41:00 EDT, Tablet, [facility]/pharmacy #0843, Partial fill upon patient request if the prescription is for a schedule II opioid drug., 158, cm, 09/19/21 15:25:00 EDT,... Start Date: 10/15/21 Status: Ordered Flovent HFA 110 mcg/inh inhalation aerosol 2 puffs, Inhalation, 2 times a day, RINSE THROAT AFTER USE, # 3 each, 0 Refills, Maintenance, 10/09/21 12:29:00 EDT, [facility]/pharmacy #0843, 158, cm, 09/19/21 15:25:00 EDT, [...] tablet, Refills 1, Route to Pharmacy Electronically, [facility] 43313, 158, cm, 07/30/21 8:48:00 EDT, Height Start [...] Active 1colo 2017 2EGD 2017 3EGD 2017 14927; repeat 2027 5c2017 Social History Social History Type Response Smoking Status Former smoker; Other : quit 30 years ago; entered on: 07/24/17 Sex Patient Care team information Care Team Personnel Name: Eddie Messina MD Position: [facility] Primary Care Physician Member Role: PCP Address: Address: [address] [place] [address]- Care Team Related Persons Name: BRANDON CHANDRA Address: home [address] [place] [address]
--- OUTSIDE RECORDS SUMMARY | 2022-05-24 00:08 | XMS_ITS | Continuity of Care Document ---
Author Name Unknown Organization [facility] Jose Daniel Address [address] [place] [address]- Care Team Providers Care Immigration Judge Name Role Phone Mayuri PASCUAL, Eddie Morales Primary Care Physician [phone] [place] [facility] [place] 10[place]28[place]21 - 11/27/21 [facility] Adult [address] [place] [address]- Allergies, Adverse Reactions, Alerts No Known Allergies [...] Reason: Nursing Judgment 2Result Comment: sanofi pasteur [id number] 3Early/Late Reason: Nursing Judgment 4Result Comment: [id number] merck and [employer] Medications Albuterol (Eqv-Proventil HFA) 90 mcg/inh inhalation aerosol 2 puffs, Inhalation, 4 times a day, # 20.1 each, 5 Refills, Maintenance, 10/13/21 9:29:00 EDT, [facility], 158, cm, 09/19/21 15:25:00 EDT, Height Start Date: 10/13/21 Status: Ordered bupropion extended release = 200 mg, By Mouth, Daily, 0 Refills, Maintenance, 04/22/18 8:53:19 EDT Start Date: 04/22/18 Status: Ordered digoxin 0.125 mg oral tablet 1, tablet, By Mouth, Daily, # 90 tablet, Refills 3, Tot. Refills 3, Maintenance, 11/08/21 12:38:00 EDT, Route to Pharmacy Electronically, [facility]/pharmacy #0843, 158, cm, 11/07/21 11:39:00 EDT, Height Start Date: 11/08/21 Stop Date: 11/03/22 Status: Ordered DilTIAZem (Eqv-Cardizem CD) 360 mg/24 hours oral capsule, extended release 1 capsule, By Mouth, Daily, # 60 capsule, 2 Refills, Maintenance, 11/27/21 9:57:00 EDT, [facility], 158, cm, 11/07/21 11:39:00 EDT, Height Start [...] 6 Refills, Maintenance, 10/15/21 10:41:00 EDT, Tablet, [facility]/pharmacy #0843, Partial fill upon patient request if [...] tablet, Refills 1, Route to Pharmacy Electronically, [facility] 12419, 158, cm, 07/30/21 8:48:00 EDT, Height Start [...] Uterine prolapse Confirmed Active 1c2017 2E2017 3E2017 60910; repeat 2027 5c2017 Social History Social History Type Response Smoking Status Former smoker; Other : quit 30 years ago; entered on: 07/24/17 Sex Patient Care team information Personnel Name: Mayuri PASCUAL, Eddie Morales Address: Address: [address] [place] [id number]
--- OUTSIDE RECORDS SUMMARY | 2022-05-24 00:09 | XMS_ITS | Continuity of Care Document ---
Author Name Unknown Organization [facility] Jose Daniel Address [address] [place] [address]- Care Team Providers Care Molder Name Role Phone Mayuri PASCUAL, Eddie Morales Primary Care Physician [place] [facility] [place]20 [facility] Adult [address] [place] [address]- Allergies, Adverse Reactions, Alerts Substance Reaction Severity [...] Given 1Early/Late Reason: Nursing Judgment 2Result Comment: [id number] merck and co 3Early/Late Reason: Nursing Judgment 4Result Comment: sanofi pasteur [id number] Medications albuterol 0.083% inhalation solution 3 mL [...] Gm, 0 Refills, Maintenance, 07/07/19 13:13:00 EDT, [place], [facility]/pharmacy #0843, 1 sprays Nares, Both 2 times a day, 158, cm, 06/16/19 15:37:00 EDT, Height, 95.45, kg, 01/08/18 3:57:00 EST, Dry Weight Start Date: 07/07/19 Status: Ordered Flovent HFA 110 mcg/inh inhalation aerosol 2 puffs, Inhalation, 2 times a day, /THROAT AFTER USE., # 36 Unknown, 1 Refills, Maintenance, 06/21/20 15:48:00 EDT, [facility]/pharmacy #0843, 158, cm, 05/28/20 9:37:00 EDT, Height [...] 09/21/19 9:10:00 EDT, Route to Pharmacy Electronically, [facility]/pharmacy #0843, 158, cm, 09/08/19 15:53:00 EDT, Height, 95.45, kg, 01/08/18 3:57:00 EST, Dry Weight Start Date: 09/21/19 Stop Date: 09/15/20 Status: Ordered Metoprolol Succinate ER 25 mg oral tablet, extended release 1 tablet, By Mouth, Daily, please call office and schedule appt for further refills, # 90 tablet, 0 Refills, Maintenance, 09/13/20 8:12:00 EDT, [facility]/pharmacy #0843, 158, cm, 05/28/20 9:37:00 EDT, Height Start Date: 09/13/20 Status: Ordered montelukast 10 mg oral tablet 1, tablet, By Mouth, Daily in AM, # 90 tablet, Refills 1, Tot. Refills 0, Maintenance, 07/30/20 11:29:00 EDT, Route to Pharmacy Electronically, [facility], 158, cm, 05/28/20 9:37:00 EDT, Height Start [...] 14:19:00 EDT, Inhaler, Route to Pharmacy Electronically, [id number],[facility]/pharmacy #0843, 158, cm, 05/28/20 9:37:00 EDT,... Start [...] Active 1colo 2017 2EGD 2017 3EGD 2017 57598; repeat 2027 5colo 2017 Social History Social History Type Response Smoking Status Former smoker; Other : quit 30 years ago; entered on: 07/24/17 Sex
--- OUTSIDE RECORDS SUMMARY | 2022-05-24 00:09 | XMS_ITS | Continuity of Care Document ---
Author Name Unknown Organization [facility] Mitchel Jose Daniel Address [address] [place] [address]- Care Team Providers Care Construction Driller Name Role Phone Mayuri PASCUAL, Eddie Morales Primary Care Physician [phone] [place] [facility] [place] 05/13/19 - 06/12/19 [facility] Adult [address] [place] [address]- [facility] Attending Physician: Renzo MCKEON, Mylene Manznao Allergies, Adverse Reactions, Alerts Substance Reaction Severity Status NKA Active Immunizations Given and Recorded Vaccine Date Status Refusal Reason Influenza Virus Vaccine (oldterm) 12/24/18 Recorde d Zoster Vaccine Live 12/14/18 Recorded tetanus/diphtheria/pertussis, acel(Tdap) 07/21/18 Given pneumococcal 13-valent vaccine 07/21/18 Given pneumococcal 23-valent vaccine 1, 2 11/07/08 Given influenza virus vaccine, inactivated 3, 4 11/07/08 Given 1Early/Late Reason: Nursing Judgment 2Result Comment: [id number] merck and co 3Early/Late Reason: Nursing Judgment 4Result Comment: sanofi pasteur [id number] Medications albuterol 0.083% inhalation solution 3 mL [...] 05/26/19 14:14:00 EDT, Route to Pharmacy Electronically, [facility]/pharmacy #0843, 158, cm, 04/04/19 13:57:00 EST, Height, [...] 03/29/19 9:52:00 EST, Route to Pharmacy Electronically, [facility]/pharmacy #0843, 158, cm, 02/04/19 11:28:00 EST, Height, 95.45, kg, 01/08/18 3:57:00 EST, Dry Weight Start Date: 03/29/19 Stop Date: 09/25/19 Status: Ordered montelukast 10 mg oral tablet See Instructions, # 90 tablet, Refills 1 Tot. Refills 1, TAKE 1 TABLET BY MOUTH EVERY MORNING, [facility]/pharmacy #0843 Start Date: 11/29/18 Status: Ordered NEBULIZER [...] 20:05:00 EST, Inhaler, Route to Pharmacy Electronically, [id number],[facility]/pharmacy #0843, 158, cm, 04/04/19 13:57:00 EST,... Start [...] Takotsubo cardiomyopathy(Confirmed) Active Uterine prolapse(Confirmed) Active 1colo 2018 2EGD 2017 3EGD 2017 99017; repeat 2027 5c2017 Social History Social History Type Response Smoking Status Former smoker; Other : quit 30 years ago; entered on: 07/24/17 Sex
--- OUTSIDE RECORDS SUMMARY | 2022-05-24 00:09 | XMS_ITS | Continuity of Care Document ---
Author Name Unknown Organization [facility] Jose Daniel Address [address] [place] [address]- Care Team Providers Care Events Manager Name Role Phone Mayuri PASCUAL, Eddie Morales Primary Care Physician [phone] [place] [facility] [place] 05/21/21 - 06/20/21 [facility] Adult [address] [place] [address]- Allergies, Adverse Reactions, Alerts No Known Allergies [...] Reason: Nursing Judgment 2Result Comment: sanofi pasteur [id number] 3Early/Late Reason: Nursing Judgment 4Result Comment: [id number] [id number] [employer]ck and co Medications Albuterol (Eqv-ProAir HFA) 90 mcg/inh inhalation aerosol 2 puffs, Inhalation, 4 times a day, # 3 each, 1 Refills, Maintenance, 05/15/21 9:52:00 EDT, [facility]/pharmacy #0843, 2 puffs Inhalation 4 times a day, 158, cm, 02/26/21 11:08:00 EST, Height Start Date: 05/15/21 Status: Ordered amLODIPine 2.5 mg oral tablet 2.5 mg, 1, tablet, By Mouth, Daily, # 90 tablet, Refills 1, Tot. Refills 1, Maintenance, 02/26/21 11:31:00 EST, Route to Pharmacy Electronically, [facility]/pharmacy #0843, Partial fill upon patient requestif the [...] Gm, 0 Refills, Maintenance, 07/07/19 13:13:00 EDT, [place], [facility]/pharmacy #0843, 1 sprays Nares, Both 2 times a day, 158, cm, 06/16/19 15:37:00 EDT, Height, 95.45, kg, 01/08/18 3:57:00 EST, Dry Weight Start Date: 07/07/19 Status: Ordered Flovent HFA 110 mcg/inh inhalation aerosol 2 puffs, Inhalation, 2 times a day, RINSE THROAT AFTER USE, # 3 each, 1 Refills, Maintenance, 05/15/21 9:51:00 EDT, [facility]/pharmacy #0843, 158, cm, 02/26/21 11:08:00 EST, Height [...] tablet, Refills 1, Route to Pharmacy Electronically, [facility], 158, cm, 01/23/21 6:49:00 EST, Height Start [...] prolapse(Confirmed) Active 1colo 2017 2EGD 2017 3E2017 64691; repeat 2027 5c2017 Social History Social History Type Response Smoking Status Former smoker; Other : quit 30 years ago; entered on: 07/24/17 Sex
--- OUTSIDE RECORDS SUMMARY | 2022-05-24 00:09 | XMS_ITS | Continuity of Care Document ---
Author Name Unknown Organization [facility] Jose Daniel lt Address [address] [place] [address]- Care Team Providers Care Flight Control Specialist Name Role Phone Eddie Messina MD Primary Care Physician [place] [facility] [place] 06/16/19 - 06/23/19 [facility] Adult [address] [place] [address]- [facility] Encounter Diagnosis Osteoarthritis of right hip(Discharge Diagnosis) - 06/16/19 Attending Physician: Eddie Messina MD Allergies, Adverse [...] Given 1Early/Late Reason: Nursing Judgment 2Result Comment: [id number] [id number] [employer] 3Early/Late Reason: Nursing Judgment 4Result Comment: sanofi pasteur [id number] Medications albuterol 0.083% inhalation solution 3 mL [...] 03/29/19 9:52:00 EST, Route to Pharmacy Electronically, [facility]/pharmacy #0843, 158, cm, 02/04/19 11:28:00 EST, Height, 95.45, kg, 01/08/18 3:57:00 EST, Dry Weight Start Date: 03/29/19 Stop Date: 09/25/19 Status: Ordered montelukast 10 mg oral tablet See Instructions, # 90 tablet, Refills 1 Tot. Refills 1, TAKE 1 TABLET BY MOUTH EVERY MORNING, [facility]/pharmacy #0843 Start Date: 11/29/18 Status: Ordered NEBULIZER [...] 20:05:00 EST, Inhaler, Route to Pharmacy Electronically, [id number],[facility]/pharmacy #0843, 158, cm, 04/04/19 13:57:00 EST,... Start [...] 07/12/19 15:22:00 EDT, 06/14/19 15:22:00 EDT, Tablet, [facility]/pharmacy #0843, 158, cm, 04/04/19 13:57:00 EST, Height, [...] Active 1colo 2017 2EGD 2017 3EGD 2017 95062; repeat 2027 5c2017 Diagnosis Diagnosis Type Effective Dates Health Status Clinical Service Informant Osteoarthritis of right hip Discharge Diagnosis 06/16/19 Vital Signs Most recent to oldest [Reference Range]: 1 Height 158 cm (06/16/19 3:37 PM) Weight 63.5 kg (06/16/19 3:37 PM) Oxygen Saturation [94-100 %] 98 % (06/16/19 3:37 PM) Pulse Rate [55-90 bpm] 74 bpm (06/16/19 3:37 PM) Body Mass Index [18.5-24.99] 25.44 *H* (06/16/19 3:37 PM) Blood Pressure [90-138/55-84 mm Hg] 126/ 82mm Hg (06/16/19 3:37 PM) Mode of Delivery (Oxygen) Room air (06/16/19 3:37 PM) Blood pressure sites Arm, left (06/16/19 3:37 PM) Weight Obtained Via 82 (06/16/19 3:37 PM) Social History Social History Type Response Smoking Status Former smoker; Other : quit 30 years ago; entered on: 07/24/17 Sex
--- OUTSIDE RECORDS SUMMARY | 2022-05-24 00:09 | XMS_ITS | Continuity of Care Document ---
Author Name Unknown Organization [facility] Jose Daniel Address [address] [place] [address]- Care Team Providers Care Cargo Router Name Role Phone Mayuri PASCUAL, Eddie Morales Primary Care Physician Encounter [facility] Date(s): 03/03/22 - 04/02/22 [facility] Adult [address] [place] [address]- Allergies, Adverse Reactions, Alerts No Known Allergies Immunizations Given and Recorded Vaccine Date Status Refusal Reason pneumococcal 20-valent conjugate vaccine 1 01/26/22 Recorded [id number] bivalent booster vax 01/26/22 Recorded influenza virus vaccine, inactivated 2 01/22/22 Gi kunal influenza virus vaccine, inactivated 12/20/20 Joshua rded influenza virus vaccine, inactivated 10/23/19 Joshua rded influenza virus vaccine, inactivated 3, 4 11/07/08 Given SARS-CoV-2 mRNA ([id number]) vax 05/25/21 Recorded SARS-CoV-2 (COVID-19) mRNA BNT-162b2 vac 12/20/20 Recorded SARS-CoV-2 (COVID-19) mRNA BNT-162b2 vac 06/03/20 Recorded SARS-CoV-2 (COVID-19) mRNA BNT-162b2 vac 05/01/20 Recorded Influenza Virus Vaccine (oldterm) 12/24/18 Recorde d Zoster Vaccine Live 12/14/18 Recorded tetanus/diphtheria/pertussis, acel(Tdap) 07/21/18 Given pneumococcal 13-valent vaccine 07/21/18 Given pneumococcal 23-valent vaccine 5, 6 11/07/08 Given 1Result Comment: Record received from [facility] Pharmacy 2Result Comment: [facility]-[id number] 3Early/Late Reason: Nursing Judgment 4Result Comment: sanofi pasteur [id number] 5Early/Late Reason: Nursing Judgment 6Result Comment: [id number] 1136y [id number] [employer]ck [employer] Medications Albuterol (Eqv-Proventil HFA) 90 mcg/inh inhalation aerosol 2 puffs, Inhalation, 4 times a day, # 20.1 each, 5 Refills, Maintenance, 10/13/21 9:29:00 EDT, [facility], 158, cm, 09/19/21 15:25:00 EDT, Height Start Date: 10/13/21 Status: Ordered bupropion extended release = 200 mg, By Mouth, Daily, 0 Refills, Maintenance, 04/22/18 8:53:19 EDT Start Date: 04/22/18 Status: Ordered digoxin 0.125 mg oral tablet 1, tablet, By Mouth, Daily, # 90 tablet, Refills 3, Tot. Refills 3, Maintenance, 11/08/21 12:38:00 EDT, Route to Pharmacy Electronically, [facility]/pharmacy #0843, 158, cm, 11/07/21 11:39:00 EDT, Height Start Date: 11/08/21 Stop Date: 11/03/22 Status: Ordered DilTIAZem (Eqv-Cardizem CD) 360 mg/24 hours oral capsule, extended release 1 capsule, By Mouth, Daily, # 60 capsule, 2 Refills, Maintenance, 01/23/22 13:54:00 EST, [facility]/pharmacy #0843, 158, cm, 01/22/22 10:05:00 EST, Height, 61, kg, 12/02/21 11:51:00 EDT, Dry Weight Start Date: 01/23/22 Status: Ordered Eliquis 5 mg oral tablet 1 tablet, By Mouth, 2 times a day, # 60 tablet, 6 Refills, Maintenance, 02/13/22 15:42:00 EST, [facility]ORE 21946, 158, cm, 02/07/22 9:00:00 EST, Height, 61, [...] tablet, Refills 2, Maintenance, 12/31/21 13:35:00 EST, [facility] Electronically, [facility], 158, cm, 12/02/21 12:48:00 EDT, Height, 61, [...] each, 0 Refills, Maintenance, 03/14/22 7:39:00 EST, [facility] ST[facility] [address], 30, INHALE 1 INHALATION 2 TIMES A [...] Active Uterine prolapse Confirmed Active 1colo 2017 2E2017 3E2017 84358; repeat 2027 5c2017 Social History Social History Type Response Smoking Status Former smoker; Other : quit 30 years ago; entered on: 07/24/17 Sex Patient Care team information Care Team Personnel Name: Mayuri PASCUAL, Eddie Morales Position: [facility] Primary Care Physician Member Role: PCP Address: Address: [address] [place] [address]- Care Team Related Persons Name: BRANDON CHANDRA Address: home [address] [place] [address]
--- OUTSIDE RECORDS SUMMARY | 2022-05-24 00:09 | XMS_ITS | Continuity of Care Document ---
Author Name Unknown Organization [facility] Mitchel Jose Daniel Address [address] [place] [address]- Care Team Providers Care Ur Coordinator Name Role Phone Mayuri PASCUAL, Eddie Morales Primary Care Physician [phone] [place] [facility] [place]): 05/13/19 - 05/20/19 [facility] Adult [address] [place] [address]- [place] Encounter Diagnosis Osteoarthritis of right hip(Discharge Diagnosis) - 05/13/19 Attending Physician: Mylene Muller NP Allergies, Adverse Reactions, Alerts Substance Reaction Severity Status NKA Active Immunizations Given and Recorded Vaccine Date Status Refusal Reason Influenza Virus Vaccine (oldterm) 12/24/18 Recorde d Zoster Vaccine Live 12/14/18 Recorded tetanus/diphtheria/pertussis, acel(Tdap) 07/21/18 Given pneumococcal 13-valent vaccine 07/21/18 Given pneumococcal 23-valent vaccine 1, 2 11/07/08 Given influenza virus vaccine, inactivated 3, 4 11/07/08 Given 1Early/Late Reason: Nursing Judgment 2Result Comment: [id number] [id number] [employer]ck [employer] 3Early/Late Reason: Nursing Judgment 4Result Comment: sanofi pasteur [id number] Medications albuterol 0.083% inhalation solution 3 mL [...] 8:53:19 EDT Start Date: 04/22/18 Status: Ordered Gabapentin = 100 mg, By [...] 03/29/19 9:52:00 EST, Route to Pharmacy Electronically, [facility]/pharmacy #0843, 158, cm, 02/04/19 11:28:00 EST, Height, 95.45, kg, 01/08/18 3:57:00 EST, Dry Weight Start Date: 03/29/19 Stop Date: 09/25/19 Status: Ordered montelukast 10 mg oral tablet See Instructions, # 90 tablet, Refills 1 Tot. Refills 1, TAKE 1 TABLET BY MOUTH EVERY MORNING, [facility]/pharmacy #0843 Start Date: 11/29/18 Status: Ordered NEBULIZER [...] 20:05:00 EST, Inhaler, Route to Pharmacy Electronically, [id number],[facility]/pharmacy #0843, 158, cm, 04/04/19 13:57:00 EST,... Start [...] 06/10/19 10:06:00 EDT, 05/13/19 10:06:00 EDT, Tablet, [facility]/pharmacy #0843, 158, cm, 04/04/19 13:57:00 EST, Height, [...] prolapse(Confirmed) Active 1colo 2017 2EGD 2017 3E2017 87524; repeat 2027 5c2017 Diagnosis Diagnosis Type Effective Dates Health Status Clinical Service Informant Osteoarthritis of right hip Discharge Diagnosis 05/13/19 Social History Social History Type Response Smoking Status Former smoker; Other : quit 30 years ago; entered on: 07/24/17 Sex
--- OUTSIDE RECORDS SUMMARY | 2022-05-24 00:09 | XMS_ITS | Continuity of Care Document ---
Author Name Unknown Organization [facility] Jose Daniel Address [address] [place] [address]- Care Team Providers Care Alarm Field Technician Name Role Phone Mayuri PASCUAL, Eddie Morales Primary Care Physician [place] [facility] [place] 01/25/21 - 02/24/21 [facility] Adult [address] [place] [address]- Allergies, Adverse Reactions, Alerts No Known Allergies Immunizations Given and Recorded Vaccine Date Status Refusal Reason influenza virus vaccine, inactivated 12/20/20 Joshua rded influenza virus vaccine, inactivated 1, [...] Reason: Nursing Judgment 2Result Comment: sanofi pasteur [id number] 3Early/Late Reason: Nursing Judgment 4Result Comment: [id number] [id number] merck [employer] Medications Albuterol (Eqv-ProAir HFA) 90 mcg/inh inhalation aerosol 2 puffs, Inhalation, 4 times a day, # 25.5 each, 1 Refills, [facility], 90, INHALE 2 PUFFS BY MOUTH 4 [...] mg, 1, tablet, By Mouth, Daily, # 30 tablet, Refills 1, Tot. Refills 1, Maintenance, 01/21/21 10:00:00 EST, Route to Pharmacy Electronically, [facility]/pharmacy #0843, Partial fill upon patient requestif the prescription is for a schedule II opioid jose... Start Date: 01/21/21 Status: Ordered bupropion extended release = 200 [...] Gm, 0 Refills, Maintenance, 07/07/19 13:13:00 EDT, [place], [facility]/pharmacy #0843, 1 sprays Nares, Both 2 times a day, 158, cm, 06/16/19 15:37:00 EDT, Height, 95.45, kg, 01/08/18 3:57:00 EST, Dry Weight Start Date: 07/07/19 Status: Ordered Flovent HFA 110 mcg/inh inhalation aerosol 2 puffs, Inhalation, 2 times a day, RINSE THROAT AFTER USE, # 36 each, 1 Refills, [facility] [address], 158, cm, 10/08/20 7:48:00 EDT, Height Start [...] tablet, Refills 1, Route to Pharmacy Electronically, [facility] 18774, 158, cm, 01/23/21 6:49:00 EST, Height Start [...] prolapse(Confirmed) Active 1colo 2017 2EGD 2017 3E2017 32391; repeat 2027 5c2017 Social History Social History Type Response Smoking Status Former smoker; Other : quit 30 years ago; entered on: 07/24/17 Sex
--- OUTSIDE RECORDS SUMMARY | 2022-05-24 00:09 | XMS_ITS | Continuity of Care Document ---
Author Name Unknown Organization [facility] Jose Daniel lt Address [address] [place] [address]- Care Team Providers Care Email Marketer Name Role Phone Mayuri PASCUAL, Eddie Morales Primary Care Physician Encounter [facility] [place] Date(s): 06/16/19 - 07/16/19 [facility] Adult [address] [place] [address]- [facility] Attending Physician: Pili Chung Admitting Physician: AdmtrPili Referring Physician: AdmtrPili Allergies, Adverse Reactions, Alerts [...] Given 1Early/Late Reason: Nursing Judgment 2Result Comment: [id number] merck and co 3Early/Late Reason: Nursing Judgment 4Result Comment: sanofi pasteur [id number] Medications albuterol 0.083% inhalation solution 3 mL [...] Gm, 0 Refills, Maintenance, 07/07/19 13:13:00 EDT, [place], [facility]/pharmacy #0843, 1 sprays Nares, Both 2 times a day, 158, cm, 06/16/19 15:37:00 EDT, Height, 95.45, kg, 01/08/18 3:57:00 EST, Dry Weight Start Date: 07/07/19 Status: Ordered gabapentin 100 mg oral capsule 100 mg, 1, capsule, By Mouth, 3 times a day, DOSAGE DECREASE, # 90 capsule, Refills 0, Tot. Refills0, Maintenance, 06/30/19 13:01:00 EDT, Route to Pharmacy Electronically, [facility]/pharmacy #0843, 158, cm, 06/16/19 15:37:00 EDT, [...] 9:52:00 EST, Route to Pharmacy Electronically, [facility]/pharmacy #0843, 158, cm, 02/04/19 11:28:00 EST, Height, 95.45, kg, 01/08/18 3:57:00 EST, Dry Weight Start Date: 03/29/19 Stop Date: 09/25/19 Status: Ordered montelukast 10 mg oral tablet See Instructions, # 90 tablet, Refills 1 Tot. Refills 1, TAKE 1 TABLET BY MOUTH EVERY MORNING, [facility]/pharmacy #0843 Start Date: 11/29/18 Status: Ordered [...] 20:05:00 EST, Inhaler, Route to Pharmacy Electronically, [id number],[facility]/pharmacy #0843, 158, cm, 04/04/19 13:57:00 EST,... [...] Active Uterine prolapse(Confirmed) Active 1c2017 2E2017 3E2017 66672; repeat 2027 5c2017 Social History Social History Type Response Smoking Status Former smoker; Other : quit 30 years ago; entered on: 07/24/17 Sex
--- OUTSIDE RECORDS SUMMARY | 2022-05-24 00:09 | XMS_ITS | Continuity of Care Document ---
Author Name Unknown Organization [facility] ter Address [address] [place] [address]- Care Team Providers Care Dormitory Keeper Name Role Phone Mayuri PASCUAL, Eddie Morales Primary Care Physician Encounter [facility] Date(s): 01/22/22 - 05/14/[address] [address] Attending Physician: Renzo MCKEON, Mylene Manzano Admitting Physician: Mylene Muller NP Referring Physician: Renzo MCKEON, Mylene Manzano Allergies, Adverse Reactions, Alerts No Known Allergies Immunizations Given and Recorded Vaccine Date Status Refusal Reason pneumococcal 20-valent conjugate vaccine 1 01/26/22 Recorded [id number] bivalent booster vax 01/26/22 Recorded influenza virus vaccine, inactivated 2 01/22/22 Gi kunal influenza virus vaccine, inactivated 12/20/20 Joshua rded influenza virus vaccine, inactivated 10/23/19 Joshua rded influenza virus vaccine, inactivated 3, 4 11/07/08 Given SARS-CoV-2 mRNA ([id number]) vax 05/25/21 Recorded SARS-CoV-2 (COVID-19) mRNA BNT-162b2 vac 12/20/20 Recorded SARS-CoV-2 (COVID-19) mRNA BNT-162b2 vac 06/03/20 Recorded SARS-CoV-2 (COVID-19) mRNA BNT-162b2 vac 05/01/20 Recorded Influenza Virus Vaccine (oldterm) 12/24/18 Recorde d Zoster Vaccine Live 12/14/18 Recorded tetanus/diphtheria/pertussis, acel(Tdap) 07/21/18 Given pneumococcal 13-valent vaccine 07/21/18 Given pneumococcal 23-valent vaccine 5, 6 11/07/08 Given 1Result Comment: Record received from [facility] Pharmacy 2Result Comment: [id number] 3Early/Late Reason: Nursing Judgment 4Result Comment: sanofi pasteur [id number] 5Early/Late Reason: Nursing Judgment 6Result Comment: [id number] merck and co Medications Albuterol (Eqv-Proventil HFA) 90 mcg/inh inhalation aerosol 2 puffs, Inhalation, 4 times a day, # 20.1 each, 5 Refills, Maintenance, 10/13/21 9:29:00 EDT, [facility] STORE 26214, 158, cm, 09/19/21 15:25:00 EDT, Height Start Date: 10/13/21 Status: Ordered bupropion extended release = 200 mg, By Mouth, Daily, 0 Refills, Maintenance, 04/22/18 8:53:19 EDT Start Date: 04/22/18 Status: Ordered digoxin 0.125 mg oral tablet 1, tablet, By Mouth, Daily, # 90 tablet, Refills 3, Tot. Refills 3, Maintenance, 11/08/21 12:38:00 EDT, Route to Pharmacy Electronically, [facility]/pharmacy #0843, 158, cm, 11/07/21 11:39:00 EDT, Height Start Date: 11/08/21 Stop Date: 11/03/22 Status: Ordered DilTIAZem (Eqv-Cardizem CD) 360 mg/24 hours oral capsule, extended release 1 capsule, By Mouth, Daily, # 60 capsule, 2 Refills, Maintenance, 01/23/22 13:54:00 EST, [facility]/pharmacy #0843, 158, cm, 01/22/22 10:05:00 EST, Height, 61, kg, 12/02/21 11:51:00 EDT, Dry Weight Start Date: 01/23/22 Status: Ordered Eliquis 5 mg oral tablet 1 tablet, By Mouth, 2 times a day, # 60 tablet, 3 Refills, Maintenance, 05/12/22 11:43:00 EDT, [facility] STORE 53878, 158, cm, 05/07/22 10:57:00 EDT, Height, 61, kg, 12/02/21 11:51:00 EDT, Dry Weight Start Date: 05/12/22 Status: Ordered Flonase 50 mcg/inh nasal spray 1 sprays, Nares, Both, 2 times a day, # 16 Gm, 11 Refills, Maintenance, 04/25/22 13:28:00 EDT, [place], [facility]/pharmacy #0843, Partial fill upon patient [...] tablet, Refills 2, Maintenance, 12/31/21 13:35:00 EST, [facility] Pharmacy Electronically, [facility] STORE [address]2834, 158, cm, 12/02/21 12:48:00 EDT, Height, 61, [...] Active 1colo 2017 2EGD 2017 3EGD 2017 92136; repeat 2027 5colo 2017 Social History Social History Type Response Smoking Status Former smoker; Other : quit 30 years ago; entered on: 07/24/17 Sex Patient Care team information Care Team Personnel Name: Eddie Messina MD Position: S Primary Care Physician Member Role: PCP Address: Address: [address] [place] [address]- Care Team Related Persons Name: BRANDON CHANDRA Address: home [address] [place] [id number]
--- OUTSIDE RECORDS SUMMARY | 2022-05-24 00:09 | XMS_ITS | Continuity of Care Document ---
Author Name Unknown Organization [facility] Jose Daniel lt Address [address] [place] [address]- Care Team Providers Care Acid Wash Operator Name Role Phone Mayuri PASCUAL, Eddie Morales Primary Care Physician Encounter [facility] Date(s): 08/09/19 - 09/08/19 [facility] Adult [address] [place] [address]- [facility] Allergies, Adverse Reactions, Alerts Substance Reaction Severity Status NKA Active Immunizations Given and Recorded Vaccine Date Status Refusal Reason Influenza Virus Vaccine (oldterm) 12/24/18 Recorde d Zoster Vaccine Live 12/14/18 Recorded tetanus/diphtheria/pertussis, acel(Tdap) 07/21/18 Given pneumococcal 13-valent vaccine 07/21/18 Given pneumococcal 23-valent vaccine 1, 2 11/07/08 Given influenza virus vaccine, inactivated 3, 4 11/07/08 Given 1Early/Late Reason: Nursing Judgment 2Result Comment: [id number] merck and co 3Early/Late Reason: Nursing Judgment 4Result Comment: sanofi pasteur [id number] Medications albuterol 0.083% inhalation solution 3 mL [...] Gm, 0 Refills, Maintenance, 07/07/19 13:13:00 EDT, [place], [facility]/pharmacy #0843, 1 sprays Nares, Both 2 times a day, 158, cm, 06/16/19 15:37:00 EDT, Height, 95.45, kg, 01/08/18 3:57:00 EST, Dry Weight Start Date: 07/07/19 Status: Ordered gabapentin 100 mg oral capsule 100 mg, 1, capsule, By Mouth, 3 times a day, DOSAGE DECREASE, # 90 capsule, Refills 0, Tot. Refills0, Maintenance, 06/30/19 13:01:00 EDT, [facility] 158, cm, 06/16/19 15:37:00 EDT, Height, [...] 9:52:00 EST, [facility]ically, [facility], 158, cm, 02/04/19 11:28:00 EST, Height, 95.45, kg, 01/08/18 3:57:00 EST, Dry Weight Start Date: 03/29/19 Stop Date: 09/25/19 Status: Ordered montelukast 10 mg oral tablet 1, tablet, By Mouth, Daily in AM, # 90 tablet, Refills 1, Tot. Refills 0, Maintenance, 07/26/19 11:57:00 EDT, Route to Pharmacy Electronically, [facility] STORE 73664, 158, cm, 06/16/19 15:37:00 EDT, Height, 95.45, [...] 15:51:00 EDT, Inhaler, Route to Pharmacy Electronically, [id number],[facility]/pharmacy #0843, 158, cm, 08/08/19 9:42:00 EDT,... Start [...] Uterine prolapse(Confirmed) Active 1colo 2017 2E2017 3E2017 26201; repeat 2027 Social History Social History Type Response Smoking Status Former smoker; Other : quit 30 years ago; entered on: 07/24/17 Sex
--- OUTSIDE RECORDS SUMMARY | 2022-05-24 00:09 | XMS_ITS | Continuity of Care Document ---
Author Name Unknown Organization [facility] Jose Daniel lt Address [address] [place] [address]- Care Team Providers Care Cocoa Roaster Name Role Phone Eddie Messina MD Primary Care Physician [phone] Encounter [facility] Date(s): 04/25/22 - 05/02/22 [facility] Adult [address] [place] [address]- Attending Physician: Not on Staff, Attending MD Allergies, Adverse Reactions, Alerts No Known Allergies Immunizations Given and Recorded Vaccine Date Status Refusal Reason pneumococcal 20-valent conjugate vaccine 1 01/26/22 Recorded [id number] bivalent booster vax 01/26/22 Recorded influenza virus vaccine, inactivated 2 01/22/22 Gi kunal influenza virus vaccine, inactivated 12/20/20 Joshua rded influenza virus vaccine, inactivated 10/23/19 Joshua rded influenza virus vaccine, inactivated 3, 4 11/07/08 Given SARS-CoV-2 mRNA ([id number]) vax 05/25/21 Recorded SARS-CoV-2 (COVID-19) mRNA BNT-162b2 vac 12/20/20 Recorded SARS-CoV-2 (COVID-19) mRNA BNT-162b2 vac 06/03/20 Recorded SARS-CoV-2 (COVID-19) mRNA BNT-162b2 vac 05/01/20 Recorded Influenza Virus Vaccine (oldterm) 12/24/18 Recorde d Zoster Vaccine Live 12/14/18 Recorded tetanus/diphtheria/pertussis, acel(Tdap) 07/21/18 Given pneumococcal 13-valent vaccine 07/21/18 Given pneumococcal 23-valent vaccine 5, 6 11/07/08 Given 1Result Comment: Record received from [facility] 2Result Comment: [id number] 3Early/Late Reason: Nursing Judgment 4Result Comment: sanofi pasteur [id number] 5Early/Late Reason: Nursing Judgment 6Result Comment: [id number] 1136y [id number] merck and co Medications Albuterol (Eqv-Proventil HFA) 90 mcg/inh inhalation aerosol 2 puffs, Inhalation, 4 times a day, # 20.1 each, 5 Refills, Maintenance, 10/13/21 9:29:00 EDT, [facility] STORE 61238, 158, cm, 09/19/21 15:25:00 EDT, Height Start Date: 10/13/21 Status: Ordered bupropion extended release = 200 mg, By Mouth, Daily, 0 Refills, Maintenance, 04/22/18 8:53:19 EDT Start Date: 04/22/18 Status: Ordered digoxin 0.125 mg oral tablet 1, tablet, By Mouth, Daily, # 90 tablet, Refills 3, Tot. Refills 3, Maintenance, 11/08/21 12:38:00 EDT, Route to Pharmacy Electronically, [facility]/pharmacy #0843, 158, cm, 11/07/21 11:39:00 EDT, Height Start Date: 11/08/21 Stop Date: 11/03/22 Status: Ordered DilTIAZem (Eqv-Cardizem CD) 360 mg/24 hours oral capsule, extended release 1 capsule, By Mouth, Daily, # 60 capsule, 2 Refills, Maintenance, 01/23/22 13:54:00 EST, [facility]/pharmacy #0843, 158, cm, 01/22/22 10:05:00 EST, Height, 61, kg, 12/02/21 11:51:00 EDT, Dry Weight Start Date: 01/23/22 Status: Ordered Eliquis 5 mg oral tablet 1 tablet, By Mouth, 2 times a day, # 60 tablet, 6 Refills, Maintenance, 02/13/22 15:42:00 EST, [facility] ST[facility] 11660, 158, cm, 02/07/22 9:00:00 EST, Height, 61, kg, 12/02/21 11:51:00 EDT, Dry Weight Start Date: 02/13/22 Status: Ordered Flonase 50 mcg/inh nasal spray 1 sprays, Nares, Both, 2 times a day, # 16 Gm, 11 Refills, Maintenance, 04/25/22 13:28:00 EDT, [place], [facility]/pharmacy #0843, Partial fill upon patient request [...] tablet, Refills 2, Maintenance, 12/31/21 13:35:00 EST, [facility], [facility] STORE 58346, 158, cm, 12/02/21 12:48:00 EDT, Height, 61, [...] opioid drug. Start Date: 04/25/22 Status: Ordered Wixela Inhub 100 mcg-50 mcg inhalation powder 1 inhalation, Inhalation, 2 times a day, AND THROAT AFTER USE., # 60 each, 0 Refills, Maintenance, 04/21/22 7:26:00 EDT, [facility], 30, INHALE 1 INHALATION 2 TIMES A DAY RINSE MOUTH AND THROAT AFTER USE, 158, cm, 03/06/22 9:29:00 EST, Height, 61... Start Date: 04/21/22 Status: Ordered Problem List Condition Confirmation Course [...] Active 1colo 2017 2EGD 2017 3EGD 2017 15714; repeat 2027 5colo 2017 Vital Signs Most recent to oldest [Reference Range]: 1 2 Height 158 cm (04/25/22 1:14 PM) 158 cm (04/25/22 12:59 PM) Weight 62.2 kg (04/25/22 12:59 PM) Oxygen Saturation [94-100 %] 98 % (04/25/22 12:59 PM) Pulse Rate [55-90 bpm] 66 bpm (04/25/22 12:59 PM) Body Mass Index [18.5-24.99 kg/m2] 24.92 kg/m2 (04/25/22 12:59 PM) Blood Pressure [90-138/55-84 mm Hg] 140/ 62mm Hg *H* (04/25/22 1:14 PM) 148/64mm Hg *H* (04/25/22 12:59 PM) Respiratory Rate [16-30 br/min] 16 br/mi n (04/25/22 12:59 PM) Mode of Delivery (Oxygen) Room air (04/25/22 12:59 PM) Blood pressure sites Arm, left (04/25/22 1:14 PM) Arm, left (04/25/22 12:59 PM) Weight Obtained Via Patient/family state d (04/25/22 12:59 PM) Social History Social History Type Response Smoking Status Former smoker; Other : quit 30 years ago; entered on: 07/24/17 Sex Patient Care team information Care Team Personnel Name: Mayuri PASCUAL, Eddie Morales Position: S Primary Care Physician Member Role: PCP Address: Address: [address] [place] [address]- Care Team Related Persons Name: BRANDON CHANDRA Address: home [address] [place] [address]
--- OUTSIDE RECORDS SUMMARY | 2022-05-24 00:09 | XMS_ITS | Continuity of Care Document ---
Author Name Unknown Organization [facility] Jose Daniel Address [address] [place] [address]- Care Team Providers Care Spray Gun Striper Name Role Phone Mayuri PASCUAL, Eddie Morales Primary Care Physician Encounter [facility] Date(s): 09/13/21 - 10/13/21 [facility] Adult [address] [place] [address]- Allergies, Adverse Reactions, Alerts No Known Allergies [...] Reason: Nursing Judgment 2Result Comment: sanofi pasteur [id number] 3Early/Late Reason: Nursing Judgment 4Result Comment: [id number] merck and co Medications Albuterol (Eqv-Proventil HFA) 90 mcg/inh inhalation aerosol 2 puffs, Inhalation, 4 times a day, # 20.1 each, 5 Refills, Maintenance, 10/13/21 9:29:00 EDT, [facility], 158, cm, 09/19/21 15:25:00 EDT, Height Start Date: 10/13/21 Status: Ordered bupropion extended release = 200 mg, By Mouth, Daily, 0 Refills, Maintenance, 04/22/18 8:53:19 EDT Start Date: 04/22/18 Status: Ordered Chewable Calcium with Vitamin D Daily, 0 Refills, Maintenance, 01/12/20 10:08:00 EST, Partial fill upon patient request if the prescription is for a schedule II opioid drug. Start Date: 01/12/20 Status: Ordered digoxin 0.125 mg oral tablet 125 mcg, 1, tablet, By Mouth, Daily, # 14 tablet, Refills 0, Tot. Refills 0, Maintenance, 10/09/21 12:26:00 EDT, Route to Pharmacy Electronically, [facility]/pharmacy #0843, Partial fill upon patient request if the prescription is for a schedule II opioid dr... Start Date: 10/09/21 Status: Ordered dilTIAZem 360 mg/24 hours oral capsule, extended release 1 capsule = 360 mg, By Mouth, Daily, # 30 capsule, 2 Refills, Maintenance, 10/09/21 16:35:00 EDT, [facility]/pharmacy #0843, dose increase, 158, cm, 09/19/21 [...] Gm, 0 Refills, Maintenance, 07/07/19 13:13:00 EDT, [place], [facility]/pharmacy #0843, 1 sprays Nares, Both 2 times a day, 158, cm, 06/16/19 15:37:00 EDT, Height, 95.45, kg, 01/08/18 3:57:00 EST, Dry Weight Start Date: 07/07/19 Status: Ordered Flovent HFA 110 mcg/inh inhalation aerosol 2 puffs, Inhalation, 2 times a day, RINSE THROAT AFTER USE, # 3 each, 0 Refills, Maintenance, 10/09/21 12:29:00 EDT, [facility]/pharmacy #0843, 158, cm, 09/19/21 15:25:00 EDT, Height [...] tablet, Refills 1, Route to Pharmacy Electronically, [facility] STORE 50340, 158, cm, 07/30/21 8:48:00 EDT, Height Start [...] EDT, Height Start Date: 10/08/21 Status: Ordered Tessalon Perles = 100 mg, [...] Active 1colo 2017 2EGD 2017 3EGD 2017 43106; repeat 2027 5colo 2017 Social History Social History Type Response Smoking Status Former smoker; Other : quit 30 years ago; entered on: 07/24/17 Sex Care Team Personnel Name: Mayuri PASCUAL, Eddie Morales Address: [address] [place] [id number]
--- OUTSIDE RECORDS SUMMARY | 2022-05-24 00:09 | XMS_ITS | Continuity of Care Document ---
Author Name Unknown Organization [facility] Jose Daniel lt Address [address] [place] [address]- Care Team Providers Care Rental Agent Name Role Phone Mayuri PASCUAL, Eddie Morales Primary Care Physician [phone] Encounter [facility] Date(s): 05/30/19 - 06/06/19 [facility] Adult [address] [place] [address]- [place] Encounter Diagnosis Osteoarthritis of right hip(Discharge Diagnosis) - 05/30/19 Shoulder pain, left(Discharge Diagnosis) - 05/30/19 Attending Physician: Mylene Muller NP Referring Physician: [...] Given 1Early/Late Reason: Nursing Judgment 2Result Comment: [id number] merck and co 3Early/Late Reason: Nursing Judgment 4Result Comment: sanofi pasteur [id number] Medications albuterol 0.083% inhalation solution 3 mL [...] 05/26/19 14:14:00 EDT, Route to Pharmacy Electronically, [facility]/pharmacy #0843, 158, cm, 04/04/19 13:57:00 EST, [...] 03/29/19 9:52:00 EST, Route to Pharmacy Electronically, [facility]/pharmacy #0843, 158, cm, 02/04/19 11:28:00 EST, Height, 95.45, kg, 01/08/18 3:57:00 EST, Dry Weight Start Date: 03/29/19 Stop Date: 09/25/19 Status: Ordered montelukast 10 mg oral tablet See Instructions, # 90 tablet, Refills 1 Tot. Refills 1, TAKE 1 TABLET BY MOUTH EVERY MORNING, [facility]/pharmacy #0843 Start Date: 11/29/18 Status: Ordered [...] 20:05:00 EST, Inhaler, Route to Pharmacy Electronically, [id number],[facility]/pharmacy #0843, 158, cm, 04/04/19 13:57:00 EST,... [...] 06/10/19 10:06:00 EDT, 05/13/19 10:06:00 EDT, Tablet, [facility]/pharmacy #0843, 158, cm, 04/04/19 13:57:00 EST, [...] prolapse(Confirmed) Active 1colo 2017 2EGD 2017 3E2017 28811; repeat 2027 Diagnosis Diagnosis Type Effective Dates Health Status Clinical Service Informant Osteoarthritis of right hip Discharge Diagnosis 05/30/19 Shoulder pain, left Discharge Diagnosis 05/30/19 Social History Social History Type Response Smoking Status Former smoker; Other : quit 30 years ago; entered on: 07/24/17 Sex
--- OUTSIDE RECORDS SUMMARY | 2022-05-24 00:09 | XMS_ITS | Continuity of Care Document ---
Author Name Unknown Organization [facility] Jose Daniel Address [address] [place] [address]- Care Team Providers Care Grinder Set Up Operator Universal Name Role Phone Eddie Messina MD Primary Care Physician Encounter [facility] Date(s): 06/01/20 - 07/01/20 [facility] Adult [address] [place] [address]- Attending Physician: Kamar Garrido MD Referring Physician: Eddie Messina MD Allergies, [...] Given 1Early/Late Reason: Nursing Judgment 2Result Comment: [id number] merck and co 3Early/Late Reason: Nursing Judgment 4Result Comment: sanofi pasteur [id number] Medications albuterol 0.083% inhalation solution 3 mL [...] Gm, 0 Refills, Maintenance, 07/07/19 13:13:00 EDT, [place], [facility]/pharmacy #0843, 1 sprays Nares, Both 2 times a day, 158, cm, 06/16/19 15:37:00 EDT, Height, 95.45, kg, 01/08/18 3:57:00 EST, Dry Weight Start Date: 07/07/19 Status: Ordered Flovent HFA 110 mcg/inh inhalation aerosol 2 puffs, Inhalation, 2 times a day, /THROAT AFTER USE., # 36 Unknown, 1 Refills, Maintenance, 06/21/20 15:48:00 EDT, [facility]/pharmacy #0843, 158, cm, 05/28/20 9:37:00 EDT, Height [...] 09/21/19 9:10:00 EDT, Route to Pharmacy Electronically, [facility]/pharmacy #0843, 158, cm, 09/08/19 15:53:00 EDT, Height, 95.45, kg, 01/08/18 3:57:00 EST, Dry Weight Start Date: 09/21/19 Stop Date: 09/15/20 Status: Ordered montelukast 10 mg oral tablet 1, tablet, By Mouth, Daily in AM, # 90 tablet, Refills 1, Tot. Refills 1, Maintenance, 01/24/20 13:15:00 EST, Route to Pharmacy Electronically, [facility]/pharmacy #0843, 158, cm, 01/12/20 9:43:00 EST, Height Start Date: 01/24/20 Status: Ordered NEBULIZER MACHINE, TUBING, FACE MASK [...] 14:19:00 EDT, Inhaler, Route to Pharmacy Electronically, [id number],[facility]/pharmacy #0843, 158, cm, 05/28/20 9:37:00 EDT,... Start [...] prolapse(Confirmed) Active 1colo 2017 2EGD 2017 3E2017 88386; repeat 2027 5c2017 Social History Social History Type Response Smoking Status Former smoker; Other : quit 30 years ago; entered on: 07/24/17 Sex
--- OUTSIDE RECORDS SUMMARY | 2022-05-24 00:09 | XMS_ITS | Continuity of Care Document ---
Author Name Unknown Organization [facility] Address [address] [place] [address]- Care Team Providers Care Bioinformatics Support Specialist Name Role Phone Eddie Messina MD Primary Care Physician [phone] Encounter [facility] Date(s): 03/08/21 - 04/07/[address] [address] Attending Physician: Pili Chung Admitting Physician: AdmPili [...] Reason: Nursing Judgment 2Result Comment: sanofi pasteur [id number] 3Early/Late Reason: Nursing Judgment 4Result Comment: [id number] merck and co Medications Albuterol (Eqv-ProAir HFA) 90 mcg/inh inhalation aerosol 2 puffs, Inhalation, 4 times a day, # 25.5 each, 1 Refills, [facility] STORE 09249, 90, INHALE 2 PUFFS BY MOUTH 4 TIMES A DAY, 158, cm, 10/08/20 7:48:00 EDT, Height Start Date: 12/13/20 Status: Ordered albuterol 0.083% inhalation solution 3 mL = 2.5 mg, Inhalation, Every 4 hours, PRN for wheezing, # 25 each, 5 Refills, Maintenance, 10/20/19 15:51:00 EDT, Solution, [facility]/pharmacy #0843, 158, cm, 09/08/19 15:53:00 EDT, Height, 95.45, kg, 01/08/18 3:57:00 EST, Dry Weight Start Date: 10/20/19 Status: Ordered amLODIPine 2.5 mg oral tablet 2.5 mg, 1, tablet, By Mouth, Daily, # 90 tablet, Refills 1, Tot. Refills 1, Maintenance, 02/26/21 11:31:00 EST, Route to Pharmacy Electronically, [facility]/pharmacy #0843, Partial fill upon patient requestif [...] Gm, 0 Refills, Maintenance, 07/07/19 13:13:00 EDT, [place], [facility]/pharmacy #0843, 1 sprays Nares, Both 2 times a day, 158, cm, 06/16/19 15:37:00 EDT, Height, 95.45, kg, 01/08/18 3:57:00 EST, Dry Weight Start Date: 07/07/19 Status: Ordered Flovent HFA 110 mcg/inh inhalation aerosol 2 puffs, Inhalation, 2 times a day, RINSE THROAT AFTER USE, # 36 each, 1 Refills, [facility], 158, cm, 10/08/20 7:48:00 EDT, Height Start [...] 1, Route to Pharmacy Electronically, [facility], 158, cm, 01/23/21 6:49:00 EST, Height Start [...] mg, By Mouth, Daily, # 90 tablet, 0 Refills, Maintenance, 03/28/21 15:17:00 EST, [facility] Tablet, 158, cm, 02/26/21 11:08:00 EST, Height Start Date: 03/28/21 Status: Ordered Problem List Condition Effective Dates [...] prolapse(Confirmed) Active 1colo 2017 2EGD 2017 3E2017 55655; repeat 2027 5c2017 Social History Social History Type Response Smoking Status Former smoker; Other : quit 30 years ago; entered on: 07/24/17 Sex
--- OUTSIDE RECORDS SUMMARY | 2022-05-24 00:09 | XMS_ITS | Continuity of Care Document ---
Author Name Unknown Organization [facility] Address [address] [place] [address]- Care Team Providers Care Transportation Museum Helper Name Role Phone Eddie Messina MD Primary Care Physician [id number] Date(s): 02/12/21 - 05/08/[address] [address]- Discharge Disposition: A-D/C Home Attending Physician: Eddie Messina MD Admitting Physician: Eddie Messina MD Referring Physician: Jennifer Avilez Allergies, Adverse Reactions, Alerts No Known Allergies [...] Reason: Nursing Judgment 2Result Comment: sanofi pasteur [id number] 3Early/Late Reason: Nursing Judgment 4Result Comment: [id number] [id number] merck and co Medications Albuterol (Eqv-ProAir HFA) 90 mcg/inh inhalation aerosol 2 puffs, Inhalation, 4 times a day, # 25.5 each, 1 Refills, [facility] 28451, 90, INHALE 2 PUFFS BY MOUTH 4 TIMES A DAY, 158, cm, 10/08/20 7:48:00 EDT, Height Start Date: 12/13/20 Status: Ordered albuterol 0.083% inhalation solution 3 mL = 2.5 mg, Inhalation, Every 4 hours, PRN for wheezing, # 25 each, 5 Refills, Maintenance, 10/20/19 15:51:00 EDT, Solution, [facility]/pharmacy #0843, 158, cm, 09/08/19 15:53:00 EDT, Height, 95.45, kg, 01/08/18 3:57:00 EST, Dry Weight Start Date: 10/20/19 Status: Ordered amLODIPine 2.5 mg oral tablet 2.5 mg, 1, tablet, By Mouth, Daily, # 90 tablet, Refills 1, Tot. Refills 1, Maintenance, 02/26/21 11:31:00 EST, Route to Pharmacy Electronically, [facility]/pharmacy #0843, Partial fill upon patient requestif [...] Gm, 0 Refills, Maintenance, 07/07/19 13:13:00 EDT, [place], [facility]/pharmacy #0843, 1 sprays Nares, Both 2 times a day, 158, cm, 06/16/19 15:37:00 EDT, Height, 95.45, kg, 01/08/18 3:57:00 EST, Dry Weight Start Date: 07/07/19 Status: Ordered Flovent HFA 110 mcg/inh inhalation aerosol 2 puffs, Inhalation, 2 times a day, RINSE THROAT AFTER USE, # 36 each, 1 Refills, [facility], 158, cm, 10/08/20 7:48:00 EDT, Height Start [...] 1, Route to Pharmacy Electronically, [facility], 158, cm, 01/23/21 6:49:00 EST, Height Start [...] Active 1colo 2017 2EGD 2017 3EGD 2017 71129; repeat 2027 5c2017 Social History Social History Type Response Smoking Status Former smoker; Other : quit 30 years ago; entered on: 07/24/17 Sex
--- OUTSIDE RECORDS SUMMARY | 2022-05-24 00:10 | XMS_ITS | Continuity of Care Document ---
Author Name Unknown Organization [facility] Jose Daniel Address [address] [place] [address]- Care Team Providers Care Eap Specialist Name Role Phone Mayuri PASCUAL, Eddie Morales Primary Care Physician [phone] Encounter [facility] Date(s): 10/22/21 - 10/29/21 [facility] Adult [address] [place] [address]- Attending Physician: Not on Staff, Attending MD [...] Reason: Nursing Judgment 2Result Comment: sanofi pasteur [id number] 3Early/Late Reason: Nursing Judgment 4Result Comment: [id number] merck and co Medications Albuterol (Eqv-Proventil HFA) 90 mcg/inh inhalation aerosol 2 puffs, Inhalation, 4 times a day, # 20.1 each, 5 Refills, Maintenance, 10/13/21 9:29:00 EDT, [facility], 158, cm, 09/19/21 15:25:00 EDT, Height Start Date: 10/13/21 Status: Ordered bupropion extended release = 200 mg, By Mouth, Daily, 0 Refills, Maintenance, 04/22/18 8:53:19 EDT Start Date: 04/22/18 Status: Ordered digoxin 0.125 mg oral tablet 1, tablet, By Mouth, Daily, # 14 tablet, Refills 0, Maintenance, 10/28/21 12:58:00 EDT, Route to Pharmacy Electronically, [facility], 158, cm, 10/24/21 8:38:00 EDT, Height Start [...] tablet, Refills 1, Route to Pharmacy Electronically, [facility], 158, cm, 07/30/21 8:48:00 EDT, Height Start [...] Active Uterine prolapse(Confirmed) Active 1c2017 2E2017 3E2017 27286; repeat 2027 Vital Signs Most recent to oldest [Reference Range]: 1 Height 158 cm (10/22/21 3:57 PM) Weight 60.0 kg (10/22/21 3:57 PM) Oxygen Saturation [94-100 %] 98 % (10/22/21 3:57 PM) Pulse Rate [55-90 bpm] 78 bpm (10/22/21 3:57 PM) Body Mass Index [18.5-24.99] 24.03 (10/22/21 3:57 PM) Blood Pressure [90-138/55-84 mm Hg] 116/ 78mm Hg (10/22/21 3:57 PM) Respiratory Rate [16-30 br/min] 20 br/mi n (10/22/21 3:57 PM) Mode of Delivery (Oxygen) Room air (10/22/21 3:57 PM) Blood pressure sites Arm, right (10/22/21 3:57 PM) Weight Obtained Via Patient/family state d (10/22/21 3:57 PM) Social History Social History Type Response Smoking Status Former smoker; Other : quit 30 years ago; entered on: 07/24/17 Sex Care Team Personnel Name: Mayrui PASCUAL, Eddie Morales Address: [address] [place] [address] [place] [address]
--- OUTSIDE RECORDS SUMMARY | 2022-05-24 00:10 | XMS_ITS | Continuity of Care Document ---
Author Name Unknown Organization [facility] Jose Daniel Address [address] [place] [address]- Care Team Providers Care Sociology Research Assistant Name Role Phone Mayuri PASCUAL, Eddie Morales Primary Care Physician Encounter [facility] Date(s): 08/10/20 - 09/14/20 [facility] Adult [address] [place] [address]- Attending Physician: Benjamin FOOD AND BEVERAGE ASSOCIATE, Julianna Boyer Allergies, Adverse Reactions, Alerts Substance Reaction Severity Status NKA Active Immunizations Given and Recorded Vaccine Date Status Refusal Reason Influenza Virus Vaccine (oldterm) 12/24/18 Recorde d Zoster Vaccine Live 12/14/18 Recorded tetanus/diphtheria/pertussis, acel(Tdap) 07/21/18 Given pneumococcal 13-valent vaccine 07/21/18 Given pneumococcal 23-valent vaccine 1, 2 11/07/08 Given influenza virus vaccine, inactivated 3, 4 11/07/08 Given 1Early/Late Reason: Nursing Judgment 2Result Comment: [id number] merck and co 3Early/Late Reason: Nursing Judgment 4Result Comment: sanofi pasteur [id number] Medications albuterol 0.083% inhalation solution 3 mL [...] Gm, 0 Refills, Maintenance, 07/07/19 13:13:00 EDT, [place], [facility]/pharmacy #0843, 1 sprays Nares, Both 2 times a day, 158, cm, 06/16/19 15:37:00 EDT, Height, 95.45, kg, 01/08/18 3:57:00 EST, Dry Weight Start Date: 07/07/19 Status: Ordered Flovent HFA 110 mcg/inh inhalation aerosol 2 puffs, Inhalation, 2 times a day, /THROAT AFTER USE., # 36 Unknown, 1 Refills, Maintenance, 06/21/20 15:48:00 EDT, [facility]/pharmacy #0843, 158, cm, 05/28/20 9:37:00 EDT, [...] 09/21/19 9:10:00 EDT, Route to Pharmacy Electronically, [facility]/pharmacy #0843, 158, cm, 09/08/19 15:53:00 EDT, Height, 95.45, kg, 01/08/18 3:57:00 EST, Dry Weight Start Date: 09/21/19 Stop Date: 09/15/20 Status: Ordered Metoprolol Succinate ER 25 mg oral tablet, extended release 1 tablet, By Mouth, Daily, please call office and schedule appt for further refills, # 90 tablet, 0 Refills, Maintenance, 09/13/20 8:12:00 EDT, [facility]/pharmacy #0843, 158, cm, 05/28/20 9:37:00 EDT, Height Start Date: 09/13/20 Status: Ordered montelukast 10 mg oral tablet 1, tablet, By Mouth, Daily in AM, # 90 tablet, Refills 1, Tot. Refills 0, Maintenance, 07/30/20 11:29:00 EDT, Route to Pharmacy Electronically, [facility] STORE 48760, 158, cm, 05/28/20 9:37:00 EDT, Height Start [...] 14:19:00 EDT, Inhaler, Route to Pharmacy Electronically, [id number],[facility]/pharmacy #0843, 158, cm, 05/28/20 9:37:00 EDT,... [...] Uterine prolapse(Confirmed) Active 1colo 2017 2E2017 3E2017 64178; repeat 2027 5c2017 Social History Social History Type Response Smoking Status Former smoker; Other : quit 30 years ago; entered on: 07/24/17 Sex
--- OUTSIDE RECORDS SUMMARY | 2022-05-24 00:10 | XMS_ITS | Continuity of Care Document ---
Author Name Unknown Organization [facility] Jose Daniel Address [address] [place] [address]- Care Team Providers Care Pot Room Tapper Name Role Phone Mayuri PASCUAL, Eddie Morales Primary Care Physician Encounter [facility] Date(s): 03/06/22 - 04/05/22 [facility] Adult [address] [place] [address]- Allergies, Adverse Reactions, Alerts No Known Allergies Immunizations Given and Recorded Vaccine Date Status Refusal Reason pneumococcal 20-valent conjugate vaccine 1 01/26/22 Recorded [id number] bivalent booster vax 01/26/22 Recorded influenza virus vaccine, inactivated 2 01/22/22 Gi kunal influenza virus vaccine, inactivated 12/20/20 Joshua rded influenza virus vaccine, inactivated 10/23/19 Joshua rded influenza virus vaccine, inactivated 3, 4 11/07/08 Given SARS-CoV-2 mRNA ([id number]) vax 05/25/21 Recorded SARS-CoV-2 (COVID-19) mRNA BNT-162b2 vac 12/20/20 Recorded SARS-CoV-2 (COVID-19) mRNA BNT-162b2 vac 06/03/20 Recorded SARS-CoV-2 (COVID-19) mRNA BNT-162b2 vac 05/01/20 Recorded Influenza Virus Vaccine (oldterm) 12/24/18 Recorde d Zoster Vaccine Live 12/14/18 Recorded tetanus/diphtheria/pertussis, acel(Tdap) 07/21/18 Given pneumococcal 13-valent vaccine 07/21/18 Given pneumococcal 23-valent vaccine 5, 6 11/07/08 Given 1Result Comment: Record received from [facility] Pharmacy 2Result Comment: [id number] 3Early/Late Reason: Nursing Judgment 4Result Comment: sanofi pasteur [id number] 5Early/Late Reason: Nursing Judgment 6Result Comment: [id number] merck and co Medications Albuterol (Eqv-Proventil HFA) 90 mcg/inh inhalation aerosol 2 puffs, Inhalation, 4 times a day, # 20.1 each, 5 Refills, Maintenance, 10/13/21 9:29:00 EDT, [facility] STORE 74570, 158, cm, 09/19/21 15:25:00 EDT, Height Start Date: 10/13/21 Status: Ordered bupropion extended release = 200 mg, By Mouth, Daily, 0 Refills, Maintenance, 04/22/18 8:53:19 EDT Start Date: 04/22/18 Status: Ordered digoxin 0.125 mg oral tablet 1, tablet, By Mouth, Daily, # 90 tablet, Refills 3, Tot. Refills 3, Maintenance, 11/08/21 12:38:00 EDT, Route to Pharmacy Electronically, [facility]/pharmacy #0843, 158, cm, 11/07/21 11:39:00 EDT, Height Start Date: 11/08/21 Stop Date: 11/03/22 Status: Ordered DilTIAZem (Eqv-Cardizem CD) 360 mg/24 hours oral capsule, extended release 1 capsule, By Mouth, Daily, # 60 capsule, 2 Refills, Maintenance, 01/23/22 13:54:00 EST, [facility]/pharmacy #0843, 158, cm, 01/22/22 10:05:00 EST, Height, 61, kg, 12/02/21 11:51:00 EDT, Dry Weight Start Date: 01/23/22 Status: Ordered Eliquis 5 mg oral tablet 1 tablet, By Mouth, 2 times a day, # 60 tablet, 6 Refills, Maintenance, 02/13/22 15:42:00 EST, [facility] STORE 97401, 158, cm, 02/07/22 9:00:00 EST, Height, 61, [...] tablet, Refills 2, Maintenance, 12/31/21 13:35:00 EST, [facility] Pharmacy Electronically, [facility], 158, cm, 12/02/21 12:48:00 EDT, Height, 61, [...] each, 0 Refills, Maintenance, 03/14/22 7:39:00 EST, [facility] STORE 76227, 30, INHALE 1 INHALATION 2 TIMES A [...] prolapse Confirmed Active 1colo 2017 2E2017 3E2017 77210; repeat 2027 5c2017 Social History Social History Type Response Smoking Status Former smoker; Other : quit 30 years ago; entered on: 07/24/17 Sex Patient Care team information Care Team Personnel Name: Mayuri PASCUAL, Eddie Morales Position: [facility] Primary Care Physician Member Role: PCP Address: Address: [address] [place] [address]- Care Team Related Persons Name: BRANDON CHANDRA Address: home [address] [place] [id number]
--- OUTSIDE RECORDS SUMMARY | 2022-05-24 00:10 | XMS_ITS | Continuity of Care Document ---
Author Name Unknown Organization [facility] Jose Daniel Address [address] [place] [address]- Care Team Providers Care Boat Hoist Operator Helper Name Role Phone Mayuri PASCUAL, Eddie Morales Primary Care Physician [phone] Encounter [facility] Date(s): 10/04/21 - 11/03/21 [facility] Adult [address] [place] [address]- Allergies, Adverse Reactions, Alerts No Known Allergies [...] Reason: Nursing Judgment 2Result Comment: sanofi pasteur [id number] 3Early/Late Reason: Nursing Judgment 4Result Comment: [id number] merck and co Medications Albuterol (Eqv-Proventil HFA) 90 mcg/inh inhalation aerosol 2 puffs, Inhalation, 4 times a day, # 20.1 each, 5 Refills, Maintenance, 10/13/21 9:29:00 EDT, [facility], 158, cm, 09/19/21 15:25:00 EDT, Height Start Date: 10/13/21 Status: Ordered bupropion extended release = 200 mg, By Mouth, Daily, 0 Refills, Maintenance, 04/22/18 8:53:19 EDT Start Date: 04/22/18 Status: Ordered digoxin 0.125 mg oral tablet 1, tablet, By Mouth, Daily, # 14 tablet, Refills 0, Maintenance, 10/28/21 12:58:00 EDT, Route to Pharmacy Electronically, [facility], 158, cm, 10/24/21 8:38:00 EDT, Height Start [...] tablet, Refills 1, Route to Pharmacy Electronically, [facility] STORE 54941, 158, cm, 07/30/21 8:48:00 EDT, Height Start [...] Uterine prolapse(Confirmed) Active 1colo 2017 2E2017 3E2017 62631; repeat 2027 5c2017 Social History Social History Type Response Smoking Status Former smoker; Other : quit 30 years ago; entered on: 07/24/17 Sex Care Team Personnel Name: Mayuri PASCUAL, Eddie Morales Address: [address] [place] [address]
--- OUTSIDE RECORDS SUMMARY | 2022-05-24 00:10 | XMS_ITS | Continuity of Care Document ---
Author Name Unknown Organization [facility] Jose Daniel Address [address] [place] [address]- Care Team Providers Care Public Relations Counselor Name Role Phone Mayuri PASCUAL, Eddie Morales Primary Care Physician [phone] Encounter [facility] Date(s): 08/27/21 - 09/26/21 [facility] Adult [address] [place] [address]- Allergies, Adverse Reactions, Alerts No Known Allergies [...] Reason: Nursing Judgment 2Result Comment: sanofi pasteur [id number] 3Early/Late Reason: Nursing Judgment 4Result Comment: [id number] merck and co Medications Albuterol (Eqv-ProAir HFA) 90 mcg/inh inhalation aerosol 2 puffs, Inhalation, 4 times a day, # 3 each, 1 Refills, Maintenance, 05/15/21 9:52:00 EDT, [facility], 2 puffs Inhalation 4 times a [...] Gm, 0 Refills, Maintenance, 07/07/19 13:13:00 EDT, [place], [facility], 1 sprays Nares, Both 2 [...] tablet, Refills 1, Route to Pharmacy Electronically, [facility] STORE 14915, 158, cm, 07/30/21 8:48:00 EDT, Height Start [...] Active 1colo 2018 2EGD 2017 3EGD 2017 90760; repeat 2027 5c2017 Social History Social History Type Response Smoking Status Former smoker; Other : quit 30 years ago; entered on: 07/24/17 Sex
--- OUTSIDE RECORDS SUMMARY | 2022-05-24 00:10 | XMS_ITS | Continuity of Care Document ---
Author Name Unknown Organization [facility] Jose Daniel Address [address] [place] [address]- Care Team Providers Care Elevator Erector Name Role Phone Mayuri PASCUAL, Eddie Morales Primary Care Physician [place] [facility] [place] 08/24/20 [facility] Adult [address] [place] [address]- Allergies, Adverse Reactions, Alerts Substance Reaction Severity Status NKA Active Immunizations Given and Recorded Vaccine Date Status Refusal Reason Influenza Virus Vaccine (oldterm) 12/24/18 Recorde d Zoster Vaccine Live 12/14/18 Recorded tetanus/diphtheria/pertussis, acel(Tdap) 07/21/18 Given pneumococcal 13-valent vaccine 07/21/18 Given pneumococcal 23-valent vaccine 1, 2 11/07/08 Given influenza virus vaccine, inactivated 3, 4 11/07/08 Given 1Early/Late Reason: Nursing Judgment 2Result Comment: [id number] merck and co 3Early/Late Reason: Nursing Judgment 4Result Comment: sanofi pasteur [id number] Medications albuterol 0.083% inhalation solution 3 mL [...] Gm, 0 Refills, Maintenance, 07/07/19 13:13:00 EDT, [place], [facility]/pharmacy #0843, 1 sprays Nares, Both 2 times a day, 158, cm, 06/16/19 15:37:00 EDT, Height, 95.45, kg, 01/08/18 3:57:00 EST, Dry Weight Start Date: 07/07/19 Status: Ordered Flovent HFA 110 mcg/inh inhalation aerosol 2 puffs, Inhalation, 2 times a day, /THROAT AFTER USE., # 36 Unknown, 1 Refills, Maintenance, 06/21/20 15:48:00 EDT, [facility]/pharmacy #0843, 158, cm, 05/28/20 9:37:00 EDT, [...] 09/21/19 9:10:00 EDT, Route to Pharmacy Electronically, [facility]/pharmacy #0843, 158, cm, 09/08/19 15:53:00 EDT, Height, 95.45, kg, 01/08/18 3:57:00 EST, Dry Weight Start Date: 09/21/19 Stop Date: 09/15/20 Status: Ordered montelukast 10 mg oral tablet 1, tablet, By Mouth, Daily in AM, # 90 tablet, Refills 1, Tot. Refills 0, Maintenance, 07/30/20 11:29:00 EDT, Route to Pharmacy Electronically, [facility] STORE 78375, 158, cm, 05/28/20 9:37:00 EDT, Height Start [...] 14:19:00 EDT, Inhaler, Route to Pharmacy Electronically, [id number],[facility]/pharmacy #0843, 158, cm, 05/28/20 9:37:00 EDT,... [...] prolapse(Confirmed) Active 1colo 2017 2EGD 2017 3E2017 58011; repeat 2027 5c2017 Social History Social History Type Response Smoking Status Former smoker; Other : quit 30 years ago; entered on: 07/24/17 Sex
--- OUTSIDE RECORDS SUMMARY | 2022-05-24 00:10 | XMS_ITS | Continuity of Care Document ---
Author Name Unknown Organization [facility] Jose Daniel Address [address] [place] [address]- Care Team Providers Care Director Of Field Coordination Name Role Phone Mayuri PASCUAL, Eddie Morales Primary Care Physician Encounter [facility] Date(s): 04/13/20 - 08/11/20 [facility] Adult [address] [place] [address]- Attending Physician: Not on Staff, Attending MD Allergies, Adverse Reactions, Alerts Substance Reaction Severity Status NKA Active Immunizations Given and Recorded Vaccine Date Status Refusal Reason Influenza Virus Vaccine (oldterm) 12/24/18 Recorde d Zoster Vaccine Live 12/14/18 Recorded tetanus/diphtheria/pertussis, acel(Tdap) 07/21/18 Given pneumococcal 13-valent vaccine 07/21/18 Given pneumococcal 23-valent vaccine 1, 2 11/07/08 Given influenza virus vaccine, inactivated 3, 4 11/07/08 Given 1Early/Late Reason: Nursing Judgment 2Result Comment: [id number] merck and co 3Early/Late Reason: Nursing Judgment 4Result Comment: sanofi pasteur [id number] Medications albuterol 0.083% inhalation solution 3 mL [...] Gm, 0 Refills, Maintenance, 07/07/19 13:13:00 EDT, [place], [facility]/pharmacy #0843, 1 sprays Nares, Both 2 times a day, 158, cm, 06/16/19 15:37:00 EDT, Height, 95.45, kg, 01/08/18 3:57:00 EST, Dry Weight Start Date: 07/07/19 Status: Ordered Flovent HFA 110 mcg/inh inhalation aerosol 2 puffs, Inhalation, 2 times a day, /THROAT AFTER USE., # 36 Unknown, 1 Refills, Maintenance, 06/21/20 15:48:00 EDT, [facility]/pharmacy #0843, 158, cm, 05/28/20 9:37:00 EDT, Height [...] 09/21/19 9:10:00 EDT, Route to Pharmacy Electronically, [facility]/pharmacy #0843, 158, cm, 09/08/19 15:53:00 EDT, Height, 95.45, kg, 01/08/18 3:57:00 EST, Dry Weight Start Date: 09/21/19 Stop Date: 09/15/20 Status: Ordered montelukast 10 mg oral tablet 1, tablet, By Mouth, Daily in AM, # 90 tablet, Refills 1, Tot. Refills 0, Maintenance, 07/30/20 11:29:00 EDT, Route to Pharmacy Electronically, [facility] STORE 52034, 158, cm, 05/28/20 9:37:00 EDT, Height Start [...] 14:19:00 EDT, Inhaler, Route to Pharmacy Electronically, [id number],[facility]/pharmacy #0843, 158, cm, 05/28/20 9:37:00 EDT,... Start [...] Uterine prolapse(Confirmed) Active 1colo 2017 2E2017 3E2017 96059; repeat 2027 5c2017 Social History Social History Type Response Smoking Status Former smoker; Other : quit 30 years ago; entered on: 07/24/17 Sex
--- OUTSIDE RECORDS SUMMARY | 2022-05-24 00:10 | XMS_ITS | Continuity of Care Document ---
Author Name Unknown Organization [facility] Jose Daniel Address [address] [place] [address]- Care Team Providers Care Health Science Specialist Name Role Phone Mayuri PASCUAL, Eddie Morales Primary Care Physician [phone] Encounter [facility] Date(s): 01/21/21 - 01/28/21 [facility] Adult [address] [place] [address]- Attending Physician: Mylene Muller NP Referring Physician: [...] Reason: Nursing Judgment 2Result Comment: sanofi pasteur [id number] 3Early/Late Reason: Nursing Judgment 4Result Comment: [id number] merck and co Medications Albuterol (Eqv-ProAir HFA) 90 mcg/inh inhalation aerosol 2 puffs, Inhalation, 4 times a day, # 25.5 each, 1 Refills, [facility] STORE 71275, 90, INHALE 2 PUFFS BY MOUTH 4 TIMES A DAY, 158, cm, 10/08/20 7:48:00 EDT, Height Start Date: 12/13/20 Status: Ordered albuterol 0.083% inhalation solution 3 mL = 2.5 mg, Inhalation, Every 4 hours, PRN for wheezing, # 25 each, 5 Refills, Maintenance, 10/20/19 15:51:00 EDT, Solution, [facility]/pharmacy #0843, 158, cm, 09/08/19 15:53:00 EDT, Height, 95.45, kg, 01/08/18 3:57:00 EST, Dry Weight Start Date: 10/20/19 Status: Ordered amLODIPine 2.5 mg oral tablet 2.5 mg, 1, tablet, By Mouth, Daily, # 30 tablet, Refills 1, Tot. Refills 1, Maintenance, 01/21/21 10:00:00 EST, [facility] Partial fill upon patient requestif the [...] Gm, 0 Refills, Maintenance, 07/07/19 13:13:00 EDT, [place], [facility]/pharmacy #0843, 1 sprays Nares, Both 2 times a day, 158, cm, 06/16/19 15:37:00 EDT, Height, 95.45, kg, 01/08/18 3:57:00 EST, Dry Weight Start Date: 07/07/19 Status: Ordered Flovent HFA 110 mcg/inh inhalation aerosol 2 puffs, Inhalation, 2 times a day, RINSE THROAT AFTER USE, # 36 each, 1 Refills, [facility], 158, cm, 10/08/20 7:48:00 EDT, Height Start [...] 07/30/20 11:29:00 EDT, Route to Pharmacy Electronically, [facility], 158, cm, 05/28/20 9:37:00 EDT, Height Start [...] Uterine prolapse(Confirmed) Active 1colo 2017 2E2017 3E2017 71145; repeat 2027 5c2017 Vital Signs Most recent to oldest [Reference Range]: 1 Height 158 cm (01/21/21 9:08 AM) Weight 65.1 kg (01/21/21 9:08 AM) Oxygen Saturation [94-100 %] 98 % (01/21/21 9:08 AM) Pulse Rate [55-90 bpm] 50 bpm *L* (01/21/21 9:08 AM) Body Mass Index [18.5-24.99] 26.08 *H* (01/21/21 9:08 AM) Blood Pressure [90-138/55-84 mm Hg] 160/ 78mm Hg *H* (01/21/21 9:08 AM) Respiratory Rate [16-30 br/min] 16 br/mi n (01/21/21 9:08 AM) Temperature [96.8-100.4 DegF] 97.8 DegF (01/21/21 9:08 AM) Mode of Delivery (Oxygen) Room air (01/21/21 9:08 AM) Blood pressure sites Arm, left (01/21/21 9:08 AM) Temperature Route Oral (01/21/21 9:08 AM) Weight Obtained Via Patient/family state d (01/21/21 9:08 AM) Social History Social History Type Response Smoking Status Former smoker; Other : quit 30 years ago; entered on: 07/24/17 Sex
--- OUTSIDE RECORDS SUMMARY | 2022-05-24 00:10 | XMS_ITS | Continuity of Care Document ---
Author Name Unknown Organization [facility] Jose Daniel Address [address] [place] [address]- Care Team Providers Care Admitting Manager Name Role Phone Mayuri PASCUAL, Eddie Morales Primary Care Physician [phone] Encounter [facility] [place] Date(s): 05/28/20 - 06/04/20 [facility] Adult [address] [place] [address]- Attending Physician: Hema PASCUAL, Kamar Morales Allergies, Adverse Reactions, Alerts Substance Reaction Severity Status NKA Active Immunizations Given and Recorded Vaccine Date Status Refusal Reason Influenza Virus Vaccine (oldterm) 12/24/18 Recorde d Zoster Vaccine Live 12/14/18 Recorded tetanus/diphtheria/pertussis, acel(Tdap) 07/21/18 Given pneumococcal 13-valent vaccine 07/21/18 Given pneumococcal 23-valent vaccine 1, 2 11/07/08 Given influenza virus vaccine, inactivated 3, 4 11/07/08 Given 1Early/Late Reason: Nursing Judgment 2Result Comment: [id number] merck and co 3Early/Late Reason: Nursing Judgment 4Result Comment: sanofi pasteur [id number] Medications albuterol 0.083% inhalation solution 3 mL = 2.5 mg, Inhalation, Every 4 hours, PRN for wheezing, # 25 each, 5 Refills, Maintenance, 10/20/19 15:51:00 EDT, [place], [facility], 158, cm, 09/08/19 15:53:00 EDT, Height, 95.45, kg, 01/08/18 3:57:00 EST, Dry Weight Start Date: 10/20/19 Status: Ordered bupropion extended release = 200 mg, By Mouth, Daily, 0 Refills, Maintenance, 03/14/19 8:53:19 EDT Start Date: 04/22/18 Status: Ordered Chewable Calcium with Vitamin D Daily, 0 Refills, Maintenance, 01/12/20 10:08:00 EST, Partial fill upon patient request if the prescription is for a schedule II opioid drug. Start Date: 01/12/20 Status: Ordered ciprofloxacin 250 mg oral tablet 1 tablet = 250 mg, By Mouth, Every 12 hours, for 5 days, # 10 tablet, 0 Refills, Acute 06/06/20 12:39:00 EDT, 06/01/20 12:39:00 EDT, Tablet, [facility]/pharmacy #0843, Partial fill upon patient request if the prescription is for a schedule II opioid drug., 1... Start Date: 06/01/20 Stop Date: 06/06/20 Status: Ordered Flonase 50 mcg/inh nasal spray 1 sprays, Nares, Both, 2 times a day, # 16 Gm, 0 Refills, Maintenance, 07/07/19 13:13:00 EDT, [place], [facility]/pharmacy #0843, 1 sprays Nares, Both 2 times a day, 158, cm, 06/16/19 15:37:00 EDT, Height, 95.45, kg, 01/08/18 3:57:00 EST, Dry Weight Start Date: 07/07/19 Status: Ordered Flovent HFA 110 mcg/inh inhalation aerosol 2 puffs, Inhalation, 2 times a day, rinse mouth and throat after use, # 12 Gm, 6 Refills, Maintenance, 12/22/19 10:15:00 EST, [place], [facility]/pharmacy #0843, Partial fill upon patient request, 158, cm, 12/22/19 9:44:00 EST, Height, 95.45, kg, 01/08/18 3:... Start Date: 12/22/19 Status: Ordered gabapentin 300 mg oral capsule [...] 09/21/19 9:10:00 EDT, Route to Pharmacy Electronically, [facility]/pharmacy #0843, 158, cm, 09/08/19 15:53:00 EDT, Height, 95.45, kg, 01/08/18 3:57:00 EST, Dry Weight Start Date: 09/21/19 Stop Date: 09/15/20 Status: Ordered montelukast 10 mg oral tablet 1, tablet, By Mouth, Daily in AM, # 90 tablet, Refills 1, Tot. Refills 1, Maintenance, 01/24/20 13:15:00 EST, Route to Pharmacy Electronically, [facility]/pharmacy #0843, 158, cm, 01/12/20 9:43:00 EST, Height [...] each, Refills 1, Tot. Refills 1, Maintenance, 12/22/19 10:13:00 EST, Inhaler, Route to Pharmacy Electronically, [id number],[facility]/pharmacy #0843, 158, cm, 12/22/19 9:44:00 EST,... Start Date: 12/22/19 Status: Ordered Protonix 40 mg oral delayed [...] Uterine prolapse(Confirmed) Active 1colo 2017 2E2017 3E2017 76006; repeat 2027 5c2017 Vital Signs Most recent to oldest [Reference Range]: 1 Height 158 cm (05/28/20 9:37 AM) Social History Social History Type Response Smoking Status Former smoker; Other : quit 30 years ago; entered on: 07/24/17 Sex
--- OUTSIDE RECORDS SUMMARY | 2022-05-24 00:10 | XMS_ITS | Continuity of Care Document ---
Author Name Unknown Organization [facility] Jose Daniel Address [address] [place] [address]- Care Team Providers Care Padder Cushion Name Role Phone Mayuri PASCUAL, Eddie Morales Primary Care Physician Encounter [facility] [place] Date(s): 10/22/21 - 11/21/21 [facility] Adult [address] [place] [address]- Attending Physician: Admtr, Scot8 Admitting Physician: Admtr, Ar8 Referring Physician: Admtr, Ar8 Allergies, Adverse Reactions, [...] Reason: Nursing Judgment 2Result Comment: sanofi pasteur [id number] 3Early/Late Reason: Nursing Judgment 4Result Comment: [id number] [employer] Medications Albuterol (Eqv-Proventil HFA) 90 mcg/inh inhalation aerosol 2 puffs, Inhalation, 4 times a day, # 20.1 each, 5 Refills, Maintenance, 10/13/21 9:29:00 EDT, [facility], 158, cm, 09/19/21 15:25:00 EDT, Height Start Date: 10/13/21 Status: Ordered bupropion extended release = 200 mg, By Mouth, Daily, 0 Refills, Maintenance, 04/22/18 8:53:19 EDT Start Date: 04/22/18 Status: Ordered digoxin 0.125 mg oral tablet 1, tablet, By Mouth, Daily, # 90 tablet, Refills 3, Tot. Refills 3, Maintenance, 11/08/21 12:38:00 EDT, [facility], cm, 11/07/21 11:39:00 EDT, Height Start Date: 11/08/21 Stop Date: 11/03/22 Status: Ordered dilTIAZem 360 mg/24 hours oral capsule, extended release 1 capsule = 360 mg, By Mouth, Daily, # 30 capsule, 2 Refills, Maintenance, 10/09/21 16:35:00 EDT, [facility]/pharmacy #0843, dose increase, 158, cm, 09/19/21 [...] 6 Refills, Maintenance, 10/15/21 10:41:00 EDT, Tablet, [facility]/pharmacy #0843, Partial fill upon patient request if the prescription is for a schedule II opioid drug., 158, cm, 09/19/21 15:25:00 EDT,... Start Date: 10/15/21 Status: Ordered Flovent HFA 110 mcg/inh inhalation aerosol 2 puffs, Inhalation, 2 times a day, RINSE THROAT AFTER USE, # 3 each, 0 Refills, Maintenance, 10/09/21 12:29:00 EDT, [facility]/pharmacy #0843, 158, cm, 09/19/21 15:25:00 EDT, [...] 1, Route to Pharmacy Electronically, [facility], 158, cm, 07/30/21 8:48:00 EDT, Height Start [...] prolapse Confirmed Active 1colo 2017 2E2017 3E2017 20082; repeat 2027 5c2017 Social History Social History Type Response Smoking Status Former smoker; Other : quit 30 years ago; entered on: 07/24/17 Sex Patient Care team information Personnel Name: Mayuri PASCUAL, Eddie Morales Address: Address: [address] [place] [id number]
--- OUTSIDE RECORDS SUMMARY | 2022-05-24 00:10 | XMS_ITS | Continuity of Care Document ---
Author Name Unknown Organization [facility] Jose Daniel Address [address] [place] [address]- Care Team Providers Care Bar Porter Name Role Phone Eddie Messina MD Primary Care Physician [phone] [place] [facility] [place](s[place] 10/08/20 - 10/15/20 [facility] Adult [address] [place] [address]- Attending Physician: Not on Staff, Attending MD [...] Given 1Early/Late Reason: Nursing Judgment 2Result Comment: [id number] [id number] [employer] 3Early/Late Reason: Nursing Judgment 4Result Comment: sanofi pasteur [id number] Medications albuterol 0.083% inhalation solution 3 mL [...] Gm, 0 Refills, Maintenance, 07/07/19 13:13:00 EDT, [place], [facility]/pharmacy #0843, 1 sprays Nares, Both 2 times a day, 158, cm, 06/16/19 15:37:00 EDT, Height, 95.45, kg, 01/08/18 3:57:00 EST, Dry Weight Start Date: 07/07/19 Status: Ordered Flovent HFA 110 mcg/inh inhalation aerosol 2 puffs, Inhalation, 2 times a day, /THROAT AFTER USE., # 36 Unknown, 1 Refills, Maintenance, 06/21/20 15:48:00 EDT, [facility]/pharmacy #0843, 158, cm, 05/28/20 9:37:00 EDT, [...] 09/21/19 9:10:00 EDT, Route to Pharmacy Electronically, [facility]/pharmacy #0843, 158, cm, 09/08/19 15:53:00 EDT, Height, 95.45, kg, 01/08/18 3:57:00 EST, Dry Weight Start Date: 09/21/19 Stop Date: 09/15/20 Status: Ordered Metoprolol Succinate ER 25 mg oral tablet, extended release 1 tablet, By Mouth, Daily, please call office and schedule appt for further refills, # 90 tablet, 0 Refills, Maintenance, 09/13/20 8:12:00 EDT, [facility]/pharmacy #0843, 158, cm, 05/28/20 9:37:00 EDT, Height Start Date: 09/13/20 Status: Ordered montelukast 10 mg oral tablet 1, tablet, By Mouth, Daily in AM, # 90 tablet, Refills 1, Tot. Refills 0, Maintenance, 07/30/20 11:29:00 EDT, Route to Pharmacy Electronically, [facility], 158, cm, 05/28/20 9:37:00 EDT, Height Start [...] 14:19:00 EDT, Inhaler, Route to Pharmacy Electronically, [id number],[facility]/pharmacy #0843, 158, cm, 05/28/20 9:37:00 EDT,... [...] Active 1colo 2017 2EGD 2017 3EGD 2017 45570; repeat 2027 5c2017 Vital Signs Most recent to oldest [Reference Range]: 1 Height 158 cm (10/08/20 7:48 AM) Oxygen Saturation [94-100 %] 98 % (10/08/20 7:48 AM) Pulse Rate [55-90 bpm] 70 bpm (10/08/20 7:48 AM) Blood Pressure [90-138/55-84 mm Hg] 134/ 82mm Hg (10/08/20 7:48 AM) Social History Social History Type Response Smoking Status Former smoker; Other : quit 30 years ago; entered on: 07/24/17 Sex
--- OUTSIDE RECORDS SUMMARY | 2022-05-24 00:10 | XMS_ITS | Continuity of Care Document ---
Author Name Unknown Organization [facility] Jose Daniel Address [address] [place] [address]- Care Team Providers Care Kiln Door Repairer Name Role Phone Mayuri PASCUAL, Eddie Morales Primary Care Physician Encounter [facility] [place] Date(s): 01/22/21 - 02/21/21 [facility] Adult [address] [place] [address]- Allergies, Adverse Reactions, Alerts No Known Allergies [...] Reason: Nursing Judgment 2Result Comment: sanofi pasteur [id number] 3Early/Late Reason: Nursing Judgment 4Result Comment: [id number] 1136y [id number] [employer] Medications Albuterol (Eqv-ProAir HFA) 90 mcg/inh inhalation aerosol 2 puffs, Inhalation, 4 times a day, # 25.5 each, 1 Refills, [facility], 90, INHALE 2 PUFFS BY MOUTH 4 TIMES A DAY, 158, cm, 10/08/20 7:48:00 EDT, Height Start Date: 12/13/20 Status: Ordered albuterol 0.083% inhalation solution 3 mL = 2.5 mg, Inhalation, Every 4 hours, PRN for wheezing, # 25 each, 5 Refills, Maintenance, 10/20/19 15:51:00 EDT, Solution, [facility]/pharmacy #0843, 158, cm, 09/08/19 15:53:00 EDT, Height, 95.45, kg, 01/08/18 3:57:00 EST, Dry Weight Start Date: 10/20/19 Status: Ordered amLODIPine 2.5 mg oral tablet 2.5 mg, 1, tablet, By Mouth, Daily, # 30 tablet, Refills 1, Tot. Refills 1, Maintenance, 01/21/21 10:00:00 EST, Route to Pharmacy Electronically, [facility]/pharmacy #0843, Partial fill upon patient requestif the [...] Gm, 0 Refills, Maintenance, 07/07/19 13:13:00 EDT, [place], [facility]/pharmacy #0843, 1 sprays Nares, Both 2 times a day, 158, cm, 06/16/19 15:37:00 EDT, Height, 95.45, kg, 01/08/18 3:57:00 EST, Dry Weight Start Date: 07/07/19 Status: Ordered Flovent HFA 110 mcg/inh inhalation aerosol 2 puffs, Inhalation, 2 times a day, RINSE THROAT AFTER USE, # 36 each, 1 Refills, [facility], 158, cm, 10/08/20 7:48:00 EDT, Height Start [...] EDT, Route to Pharmacy Electronically, [facility], 158, cm, 05/28/20 9:37:00 EDT, Height Start [...] prolapse(Confirmed) Active 1colo 2017 2EGD 2017 3E2017 79202; repeat 2027 5c2017 Social History Social History Type Response Smoking Status Former smoker; Other : quit 30 years ago; entered on: 07/24/17 Sex
--- OUTSIDE RECORDS SUMMARY | 2022-05-24 00:10 | XMS_ITS | Continuity of Care Document ---
Author Name Unknown Organization [facility] Jose Daniel lt Address [address] [place] [address]- Care Team Providers Care Manager Bar Name Role Phone Eddie Messina MD Primary Care Physician [phone] Encounter [facility] [place]s): 01/12/20 - 01/19/20 [facility] Adult [address] [place] [address]- Encounter Diagnosis Wellness examination(Discharge Diagnosis) - 01/12/20 Attending Physician: Mylene Muller NP Referring Physician: [...] Given 1Early/Late Reason: Nursing Judgment 2Result Comment: [id number] [employer] 3Early/Late Reason: Nursing Judgment 4Result Comment: sanofi pasteur [id number] Medications albuterol 0.083% inhalation solution 3 mL [...] Gm, 0 Refills, Maintenance, 07/07/19 13:13:00 EDT, [place], [facility]/pharmacy #0843, 1 sprays Nares, Both 2 times a day, 158, cm, 06/16/19 15:37:00 EDT, Height, 95.45, kg, 01/08/18 3:57:00 EST, Dry Weight Start Date: 07/07/19 Status: Ordered Flovent HFA 110 mcg/inh inhalation aerosol 2 puffs, Inhalation, 2 times a day, rinse mouth and throat after use, # 12 Gm, 6 Refills, Maintenance, 12/22/19 10:15:00 EST, Aerosol, [facility]/pharmacy #0843, Partial fill upon patient request, 158, [...] 09/21/19 9:10:00 EDT, Route to Pharmacy Electronically, [facility]/pharmacy #0843, 158, cm, 09/08/19 15:53:00 EDT, Height, 95.45, kg, 01/08/18 3:57:00 EST, Dry Weight Start Date: 09/21/19 Stop Date: 09/15/20 Status: Ordered montelukast 10 mg oral tablet 1, tablet, By Mouth, Daily in AM, # 90 tablet, Refills 1, Tot. Refills 0, Maintenance, 07/26/19 11:57:00 EDT, Route to Pharmacy Electronically, [facility], 158, cm, 06/16/19 15:37:00 EDT, Height, 95.45, [...] 10:13:00 EST, Inhaler, Route to Pharmacy Electronically, [id number],[facility]/pharmacy #0843, 158, cm, 12/22/19 9:44:00 EST,... Start [...] Uterine prolapse(Confirmed) Active 1colo 2017 2E2017 3E2017 16641; repeat 2027 5c2017 Diagnosis Diagnosis Type Effective Dates Health Status Clinical Service Informant Wellness examination Discharge Diagnosis 01/12/20 Vital Signs Most recent to oldest [Reference Range]: 1 Height 158 cm (01/12/20 9:43 AM) Weight 63.1 kg (01/12/20 9:43 AM) Oxygen Saturation [94-100 %] 98 % (01/12/20 9:43 AM) Pulse Rate [55-90 bpm] 73 bpm (01/12/20 9:43 AM) Body Mass Index [18.5-24.99] 25.28 *H* (01/12/20 9:43 AM) Blood Pressure [90-138/55-84 mm Hg] 130/ 82mm Hg (01/12/20 9:43 AM) Blood pressure sites Arm, right (01/12/20 9:43 AM) Social History Social History Type Response Smoking Status Former smoker; Other : quit 30 years ago; entered on: 07/24/17 Sex
--- OUTSIDE RECORDS SUMMARY | 2022-05-24 00:10 | XMS_ITS | Continuity of Care Document ---
Author Name Unknown Organization [facility] Address [address] [place], [place] [id number]- Care Team Providers Care Division Operations Manager Name Role Phone Eddie Messina MD Primary Care Physician Encounter [facility] Date(s): 10/24/21 - 10/31/21 [facility] [address] [place] [address]- Attending Physician: Alfonso Barboza MD Referring Physician: Eddie Messina MD Allergies, [...] Reason: Nursing Judgment 2Result Comment: sanofi pasteur [id number] 3Early/Late Reason: Nursing Judgment 4Result Comment: [id number] [id number] [employer] Medications Albuterol (Eqv-Proventil HFA) 90 mcg/inh inhalation aerosol 2 puffs, Inhalation, 4 times a day, # 20.1 each, 5 Refills, Maintenance, 10/13/21 9:29:00 EDT, [facility], 158, cm, 09/19/21 15:25:00 EDT, Height Start Date: 10/13/21 Status: Ordered bupropion extended release = 200 mg, By Mouth, Daily, 0 Refills, Maintenance, 04/22/18 8:53:19 EDT Start Date: 04/22/18 Status: Ordered digoxin 0.125 mg oral tablet 1, tablet, By Mouth, Daily, # 14 tablet, Refills 0, Maintenance, 10/28/21 12:58:00 EDT, Route to Pharmacy Electronically, [facility], 158, cm, 10/24/21 8:38:00 EDT, Height Start [...] tablet, Refills 1, Route to Pharmacy Electronically, [facility], 158, cm, 07/30/21 8:48:00 EDT, Height Start [...] Active Uterine prolapse(Confirmed) Active 1c2017 2E2017 3E2017 56475; repeat 2027 Vital Signs Most recent to oldest [Reference Range]: 1 Height 158 cm (10/24/21 8:38 AM) Weight 61 kg (10/24/21 8:38 AM) Pulse Rate [55-90 bpm] 91 bpm *H* (10/24/21 8:38 AM) Body Mass Index [18.5-24.99] 24.44 (10/24/21 8:38 AM) Blood Pressure [90-138/55-84 mm Hg] 135/ 70mm Hg (10/24/21 8:38 AM) Blood pressure sites Arm, right (10/24/21 8:38 AM) Social History Social History Type Response Smoking Status Former smoker; Other : quit 30 years ago; entered on: 07/24/17 Sex Care Team Personnel Name: Eddie Messina MD Address: [address] [place] [address] [place] [address]-
--- OUTSIDE RECORDS SUMMARY | 2022-05-24 00:10 | XMS_ITS | Continuity of Care Document ---
Author Name Unknown Organization [facility] Jose Daniel lt Address [address] [place] [address]- Care Team Providers Care Dairy Feed Worker Name Role Phone Mayuri PASCUAL, Eddie Morales Primary Care Physician [place] [facility] [place] 04/05/22 [facility] Adult [address] [place] [address]- Attending Physician: Scot Chung8 Admitting Physician: AdmtrPili Referring Physician: Admtr, Ar8 Allergies, Adverse Reactions, Alerts No Known Allergies Immunizations Given and Recorded Vaccine Date Status Refusal Reason pneumococcal 20-valent conjugate vaccine 1 01/26/22 Recorded [id number] bivalent booster vax 01/26/22 Recorded influenza virus vaccine, inactivated 2 01/22/22 Gi kunal influenza virus vaccine, inactivated 12/20/20 Joshua rded influenza virus vaccine, inactivated 10/23/19 Joshua rded influenza virus vaccine, inactivated 3, 4 11/07/08 Given SARS-CoV-2 mRNA ([id number]) vax 05/25/21 Recorded SARS-CoV-2 (COVID-19) mRNA BNT-162b2 vac 12/20/20 Recorded SARS-CoV-2 (COVID-19) mRNA BNT-162b2 vac 06/03/20 Recorded SARS-CoV-2 (COVID-19) mRNA BNT-162b2 vac 05/01/20 Recorded Influenza Virus Vaccine (oldterm) 12/24/18 Recorde d Zoster Vaccine Live 12/14/18 Recorded tetanus/diphtheria/pertussis, acel(Tdap) 07/21/18 Given pneumococcal 13-valent vaccine 07/21/18 Given pneumococcal 23-valent vaccine 5, 6 11/07/08 Given 1Result Comment: Record received from [facility] Pharmacy 2Result Comment: [id number] 3Early/Late Reason: Nursing Judgment 4Result Comment: sanofi pasteur [id number] 5Early/Late Reason: Nursing Judgment 6Result Comment: [id number] [employer]ck [employer] Medications Albuterol (Eqv-Proventil HFA) 90 mcg/inh inhalation aerosol 2 puffs, Inhalation, 4 times a day, # 20.1 each, 5 Refills, Maintenance, 10/13/21 9:29:00 EDT, [facility] ST[facility] 313[facility], 158, cm, 09/19/21 15:25:00 EDT, Height Start Date: 10/13/21 Status: Ordered bupropion extended release = 200 mg, By Mouth, Daily, 0 Refills, Maintenance, 04/22/18 8:53:19 EDT Start Date: 04/22/18 Status: Ordered digoxin 0.125 mg oral tablet 1, tablet, By Mouth, Daily, # 90 tablet, Refills 3, Tot. Refills 3, Maintenance, 11/08/21 12:38:00 EDT, Route to Pharmacy Electronically, [facility]/pharmacy #0843, 158, cm, 11/07/21 11:39:00 EDT, Height Start Date: 11/08/21 Stop Date: 11/03/22 Status: Ordered DilTIAZem (Eqv-Cardizem CD) 360 mg/24 hours oral capsule, extended release 1 capsule, By Mouth, Daily, # 60 capsule, 2 Refills, Maintenance, 01/23/22 13:54:00 EST, [facility]/pharmacy #0843, 158, cm, 01/22/22 10:05:00 EST, Height, 61, kg, 12/02/21 11:51:00 EDT, Dry Weight Start Date: 01/23/22 Status: Ordered Eliquis 5 mg oral tablet 1 tablet, By Mouth, 2 times a day, # 60 tablet, 6 Refills, Maintenance, 02/13/22 15:42:00 EST, [facility] STORE 72843, 158, cm, 02/07/22 9:00:00 EST, Height, 61, [...] tablet, Refills 2, Maintenance, 12/31/21 13:35:00 EST, [facility], 158, cm, 12/02/21 12:48:00 EDT, Height, 61, [...] each, 0 Refills, Maintenance, 03/14/22 7:39:00 EST, [facility], 30, INHALE 1 INHALATION 2 TIMES A [...] Active 1colo 2017 2EGD 2017 3EGD 2017 64931; repeat 2027 5colo 2017 Social History Social History Type Response Smoking Status Former smoker; Other : quit 30 years ago; entered on: 07/24/17 Sex Hospital Consult note * Event Display: Inpatient Consult Note, Non-BH Authored Date: * Event Display: Inpatient Consult Note, Non-BH Authored Date: * Event Display: Inpatient Consult Note, Non-BH Authored Date: Note * Event Display: Non BH Lab Results Authored Date: * Event Display: Non BH Lab Results Authored Date: * Event Display: Laboratory Result Scanned Authored Date: * Event Display: MRI Spine, Non- BH Authored Date: * Event Display: MM Mammogram, Non- BH Authored Date: * Event Display: Bone Density, Non-BH Authored Date: Patient Care team information Care Team Personnel Name: Mayuri PASCUAL, Eddie Morales Position: [facility] Primary Care Physician Member Role: PCP Address: Address: [address] [place] [address]- Care Team Related Persons Name: BRANDON CHANDRA Address: home [address] [place] [address]
[2022-05-24 00:11] LABS: Alanine Aminotransferase 17 U/L (0-31); Albumin Level 3.7 g/dL (3.5-5.0); Alkaline Phosphatase 91 U/L (39-117); Anion Gap 11 (12-20); Aspartate Amino Transferase 23 U/L (5-31); Bilirubin Total 0.2 mg/dL (0.0-1.0); Blood Urea Nitrogen 23 mg/dL (9-16); Calcium 9.3 mg/dL (8.4-10.2); Carbon Dioxide 25 mmol/L (22-29); Chloride 107 mmol/L (96-108); Creatinine Clr Calc Pharmacy 49.3; Estimated Glomerular Filt Rate > 60; Glucose Random 85 mg/dL (60-115); Sodium 139 mmol/L (135-145); Total Protein 5.9 g/dL (6.5-8.0)
--- OUTSIDE RECORDS SUMMARY | 2022-05-24 00:11 | XMS_ITS | Continuity of Care Document ---
Author Name Unknown Organization [facility] Address [address] [place] [address]- Care Team Providers Care Gut Snatcher Name Role Phone Edide Messina MD Primary Care Physician [place] [facility] [place]/21 [facility] [address] [place] [address]- Allergies, Adverse Reactions, Alerts No Known Allergies [...] Reason: Nursing Judgment 2Result Comment: sanofi pasteur [id number] 3Early/Late Reason: Nursing Judgment 4Result Comment: [id number] [employer]ck [employer] Medications Albuterol (Eqv-Proventil HFA) 90 mcg/inh inhalation aerosol 2 puffs, Inhalation, 4 times a day, # 20.1 each, 5 Refills, Maintenance, 10/13/21 9:29:00 EDT, [facility], 158, cm, 09/19/21 15:25:00 EDT, Height Start Date: 10/13/21 Status: Ordered bupropion extended release = 200 mg, By Mouth, Daily, 0 Refills, Maintenance, 04/22/18 8:53:19 EDT Start Date: 04/22/18 Status: Ordered digoxin 0.125 mg oral tablet 1, tablet, By Mouth, Daily, # 90 tablet, Refills 3, Tot. Refills 3, Maintenance, 11/08/21 12:38:00 EDT, Route to Pharmacy Electronically, [facility]/pharmacy #0843, 158, cm, 11/07/21 11:39:00 EDT, Height Start Date: 11/08/21 Stop Date: 11/03/22 Status: Ordered DilTIAZem (Eqv-Cardizem CD) 360 mg/24 hours oral capsule, extended release 1 capsule, By Mouth, Daily, # 60 capsule, 2 Refills, Maintenance, 11/27/21 9:57:00 EDT, [facility], 158, cm, 11/07/21 11:39:00 EDT, Height Start [...] 6 Refills, Maintenance, 10/15/21 10:41:00 EDT, Tablet, [facility]/pharmacy #0843, Partial fill upon patient request if the prescription is for a schedule II opioid drug., 158, cm, 09/19/21 15:25:00 EDT,... Start Date: 10/15/21 Status: Ordered Flovent HFA 110 mcg/inh inhalation aerosol 2 puffs, Inhalation, 2 times a day, RINSE THROAT AFTER USE, # 3 each, 0 Refills, Maintenance, 10/09/21 12:29:00 EDT, [facility]/pharmacy #0843, 158, cm, 09/19/21 [...] tablet, Refills 1, Route to Pharmacy Electronically, [facility] ST[facility] 29445, 158, cm, 07/30/21 8:48:00 EDT, Height Start [...] Uterine prolapse Confirmed Active 1c2017 2E2017 3E2017 01705; repeat 2027 5c2017 Social History Social History Type Response Smoking Status Former smoker; Other : quit 30 years ago; entered on: 07/24/17 Sex Patient Care team information Personnel Name: Mayuri PASCUAL, Eddie Morales Address: Address: [address] [place] [id number]
--- OUTSIDE RECORDS SUMMARY | 2022-05-24 00:11 | XMS_ITS | Continuity of Care Document ---
Author Name Unknown Organization [facility] [place] Jose Daniel Address [address] [place] [address]- Care Team Providers Care Obiee Obia Solution Architect Name Role Phone Mayuri PASCUAL, Eddie Morales Primary Care Physician [phone] Encounter [facility] Date(s): 09/08/19 - 09/15/19 [facility] Adult [address] [place] [address]- [facility] Encounter Diagnosis Left shoulder pain(Discharge Diagnosis) - 09/08/19 Attending Physician: Not on Staff, Attending MD [...] Given 1Early/Late Reason: Nursing Judgment 2Result Comment: [id number] [employer]ck [employer] 3Early/Late Reason: Nursing Judgment 4Result Comment: sanofi pasteur [id number] Medications albuterol 0.083% inhalation solution 3 mL [...] Gm, 0 Refills, Maintenance, 07/07/19 13:13:00 EDT, [place], [facility]/pharmacy #0843, 1 sprays Nares, Both 2 times a day, 158, cm, 06/16/19 15:37:00 EDT, Height, 95.45, kg, 01/08/18 3:57:00 EST, Dry Weight Start Date: 07/07/19 Status: Ordered gabapentin 100 mg oral capsule 100 mg, 1, capsule, By Mouth, 3 times a day, DOSAGE DECREASE, # 90 capsule, Refills 0, Tot. Refills0, Maintenance, 06/30/19 13:01:00 EDT, Route to Pharmacy Electronically, [facility]/pharmacy #0843, 158, cm, 06/16/19 15:37:00 [...] 03/29/19 9:52:00 EST, Route to Pharmacy Electronically, [facility]/pharmacy #0843, 158, cm, 02/04/19 11:28:00 EST, Height, 95.45, kg, 01/08/18 3:57:00 EST, Dry Weight Start Date: 03/29/19 Stop Date: 09/25/19 Status: Ordered montelukast 10 mg oral tablet 1, tablet, By Mouth, Daily in AM, # 90 tablet, Refills 1, Tot. Refills 0, Maintenance, 07/26/19 11:57:00 EDT, Route to Pharmacy Electronically, [facility] STORE 43600, 158, cm, 06/16/19 15:37:00 EDT, Height, 95.45, [...] 15:51:00 EDT, Inhaler, Route to Pharmacy Electronically, [id number],[facility]/pharmacy #0843, 158, cm, 08/08/19 9:42:00 [...] Active Uterine prolapse(Confirmed) Active 1c2017 2E2017 3E2017 49837; repeat 2027 Diagnosis Diagnosis Type Effective Dates Health Status Cl inical Service Informant Left shoulder pain Discharge Diagnosis 09/08/19 Vital Signs Most recent to oldest [Reference Range]: 1 Height 158 cm (09/08/19 3:53 PM) Oxygen Saturation [94-100 %] 97 % (09/08/19 3:53 PM) Pulse Rate [55-90 bpm] 71 bpm (09/08/19 3:53 PM) Blood Pressure [90-138/55-84 mm Hg] 120/ 72mm Hg (09/08/19 3:53 PM) Blood pressure sites Arm, right (09/08/19 3:53 PM) Social History Social History Type Response Smoking Status Former smoker; Other : quit 30 years ago; entered on: 07/24/17 Sex
--- OUTSIDE RECORDS SUMMARY | 2022-05-24 00:11 | XMS_ITS | Continuity of Care Document ---
Author Name Unknown Organization [facility] Address [address] [place] [address]- Care Team Providers Care Shake Packer Name Role Phone Eddie Messina MD Primary Care Physician Encounter [facility] [place] [place] Date(s): 01/23/22 - 02/22/22 [facility] [address] [place] [phone]- [place] Allergies, Adverse Reactions, Alerts No Known Allergies Immunizations Given and Recorded Vaccine Date Status Refusal Reason pneumococcal 20-valent conjugate vaccine 1 01/26/22 Recorded [id number] bivalent booster vax 01/26/22 Recorded influenza virus vaccine, inactivated 2 01/22/22 Gi kunal influenza virus vaccine, inactivated 12/20/20 Joshua rded influenza virus vaccine, inactivated 10/23/19 Joshua rded influenza virus vaccine, inactivated 3, 4 11/07/08 Given SARS-CoV-2 mRNA ([id number]) vax 05/25/21 Recorded SARS-CoV-2 (COVID-19) mRNA BNT-162b2 vac 12/20/20 Recorded SARS-CoV-2 (COVID-19) mRNA BNT-162b2 vac 06/03/20 Recorded SARS-CoV-2 (COVID-19) mRNA BNT-162b2 vac 05/01/20 Recorded Influenza Virus Vaccine (oldterm) 12/24/18 Recorde d Zoster Vaccine Live 12/14/18 Recorded tetanus/diphtheria/pertussis, acel(Tdap) 07/21/18 Given pneumococcal 13-valent vaccine 07/21/18 Given pneumococcal 23-valent vaccine 5, 6 11/07/08 Given 1Result Comment: Record received from [facility] Pharmacy 2Result Comment: [facility]-[id number] 3Early/Late Reason: Nursing Judgment 4Result Comment: sanofi pasteur [id number] 5Early/Late Reason: Nursing Judgment 6Result Comment: [id number] [employer]ck [employer] Medications Albuterol (Eqv-Proventil HFA) 90 mcg/inh inhalation aerosol 2 puffs, Inhalation, 4 times a day, # 20.1 each, 5 Refills, Maintenance, 10/13/21 9:29:00 EDT, [facility] STORE 52575, 158, cm, 09/19/21 15:25:00 EDT, Height Start Date: 10/13/21 Status: Ordered bupropion extended release = 200 mg, By Mouth, Daily, 0 Refills, Maintenance, 04/22/18 8:53:19 EDT Start Date: 04/22/18 Status: Ordered digoxin 0.125 mg oral tablet 1, tablet, By Mouth, Daily, # 90 tablet, Refills 3, Tot. Refills 3, Maintenance, 11/08/21 12:38:00 EDT, Route to Pharmacy Electronically, [facility]/pharmacy #0843, 158, cm, 11/07/21 11:39:00 EDT, Height Start Date: 11/08/21 Stop Date: 11/03/22 Status: Ordered DilTIAZem (Eqv-Cardizem CD) 360 mg/24 hours oral capsule, extended release 1 capsule, By Mouth, Daily, # 60 capsule, 2 Refills, Maintenance, 01/23/22 13:54:00 EST, [facility]/pharmacy #0843, 158, cm, 01/22/22 10:05:00 EST, Height, 61, kg, 12/02/21 11:51:00 EDT, Dry Weight Start Date: 01/23/22 Status: Ordered Eliquis 5 mg oral tablet 1 tablet, By Mouth, 2 times a day, # 60 tablet, 6 Refills, Maintenance, 02/13/22 15:42:00 EST, [facility] STORE 95456, 158, cm, 02/07/22 9:00:00 EST, Height, 61, [...] tablet, Refills 2, Maintenance, 12/31/21 13:35:00 EST, [facility], [facility] STORE 47929, 158, cm, 12/02/21 12:48:00 EDT, Height, 61, [...] each, 0 Refills, Maintenance, 02/14/22 16:14:00 EST, [facility] STORE 05919, 30, INHALE 1 INHALATION 2 TIMES A [...] Uterine prolapse Confirmed Active 1c2017 2E2017 3E2017 34749; repeat 2027 5c2017 Social History Social History Type Response Smoking Status Former smoker; Other : quit 30 years ago; entered on: 07/24/17 Sex Patient Care team information Care Team Personnel Name: Mayuri PASCUAL, Eddie Morales Position: [facility] Primary Care Physician Member Role: PCP Address: Address: [address] [place] [address]- Care Team Related Persons Name: BRANDON CHANDRA Address: home [address] [place] [phone]
--- OUTSIDE RECORDS SUMMARY | 2022-05-24 00:11 | XMS_ITS | Continuity of Care Document ---
Author Name Unknown Organization [facility] Jose Daniel Address [address] [place] [address]- Care Team Providers Care Computer Aided Design Technician Name Role Phone Mayuri PASCUAL, Eddie Morales Primary Care Physician [phone] Encounter [facility] [place] Date(s): 04/18/19 - 06/08/19 [facility] Adult [address] [place] [address]- [facility] Attending Physician: Renzo MCKEON, Mylene Manzano Allergies, Adverse Reactions, Alerts Substance Reaction Severity Status NKA Active Immunizations Given and Recorded Vaccine Date Status Refusal Reason Influenza Virus Vaccine (oldterm) 12/24/18 Recorde d Zoster Vaccine Live 12/14/18 Recorded tetanus/diphtheria/pertussis, acel(Tdap) 07/21/18 Given pneumococcal 13-valent vaccine 07/21/18 Given pneumococcal 23-valent vaccine 1, 2 11/07/08 Given influenza virus vaccine, inactivated 3, 4 11/07/08 Given 1Early/Late Reason: Nursing Judgment 2Result Comment: [id number] [employer]ck [employer] 3Early/Late Reason: Nursing Judgment 4Result Comment: sanofi pasteur [id number] Medications albuterol 0.083% inhalation solution 3 mL [...] 14:14:00 EDT, Route to Pharmacy Electronically, [facility]/pharmacy #0843, 158, cm, 04/04/19 13:57:00 EST, [...] 9:52:00 EST, Route to Pharmacy Electronically, [facility]/pharmacy #0843, 158, cm, 02/04/19 11:28:00 EST, Height, 95.45, kg, 01/08/18 3:57:00 EST, Dry Weight Start Date: 03/29/19 Stop Date: 09/25/19 Status: Ordered montelukast 10 mg oral tablet See Instructions, # 90 tablet, Refills 1 Tot. Refills 1, TAKE 1 TABLET BY MOUTH EVERY MORNING, [facility]/pharmacy #0843 Start Date: 11/29/18 Status: Ordered [...] 20:05:00 EST, Inhaler, Route to Pharmacy Electronically, [id number],[facility], 158, cm, 04/04/19 13:57:00 EST,... Start [...] 10:06:00 EDT, 05/13/19 10:06:00 EDT, Tablet, [facility]/pharmacy #0843, 158, cm, 04/04/19 13:57:00 EST, [...] Active Uterine prolapse(Confirmed) Active 1c2017 2E2017 3E2017 81549; repeat 2027 5c2017 Social History Social History Type Response Smoking Status Former smoker; Other : quit 30 years ago; entered on: 07/24/17 Sex
--- OUTSIDE RECORDS SUMMARY | 2022-05-24 00:11 | XMS_ITS | Continuity of Care Document ---
Author Name Unknown Organization [facility] Jose Daniel Address [address] [place] [address]- Care Team Providers Care Jacquard Fixer Name Role Phone Mayuri PASCUAL, Eddie Morales Primary Care Physician Encounter [facility] [place] Date(s): 01/14/21 - 02/13/21 [facility] Adult [address] [place] [address]- Allergies, Adverse Reactions, Alerts Substance Reaction Severity [...] Reason: Nursing Judgment 2Result Comment: sanofi pasteur [id number] 3Early/Late Reason: Nursing Judgment 4Result Comment: [id number] [employer]ck [employer] Medications Albuterol (Eqv-ProAir HFA) 90 mcg/inh inhalation aerosol 2 puffs, Inhalation, 4 times a day, # 25.5 each, 1 Refills, [facility] STORE 52215, 90, INHALE 2 PUFFS BY MOUTH 4 TIMES A DAY, 158, cm, 10/08/20 7:48:00 EDT, Height Start Date: 12/13/20 Status: Ordered albuterol 0.083% inhalation solution 3 mL = 2.5 mg, Inhalation, Every 4 hours, PRN for wheezing, # 25 each, 5 Refills, Maintenance, 10/20/19 15:51:00 EDT, Solution, [facility]/pharmacy #0843, 158, cm, 09/08/19 15:53:00 EDT, Height, 95.45, kg, 01/08/18 3:57:00 EST, Dry Weight Start Date: 10/20/19 Status: Ordered amLODIPine 2.5 mg oral tablet 2.5 mg, 1, tablet, By Mouth, Daily, # 30 tablet, Refills 1, Tot. Refills 1, Maintenance, 01/21/21 10:00:00 EST, Route to Pharmacy Electronically, [facility]/pharmacy #0843, Partial fill upon patient requestif the [...] Gm, 0 Refills, Maintenance, 07/07/19 13:13:00 EDT, [place], [facility]/pharmacy #0843, 1 sprays Nares, Both 2 times a day, 158, cm, 06/16/19 15:37:00 EDT, Height, 95.45, kg, 01/08/18 3:57:00 EST, Dry Weight Start Date: 07/07/19 Status: Ordered Flovent HFA 110 mcg/inh inhalation aerosol 2 puffs, Inhalation, 2 times a day, RINSE THROAT AFTER USE, # 36 each, 1 Refills, [facility] STORE 89167, 158, cm, 10/08/20 7:48:00 EDT, Height Start [...] EDT, Route to Pharmacy Electronically, [facility], 158, cm, 05/28/20 9:37:00 EDT, Height Start [...] prolapse(Confirmed) Active 1colo 2017 2EGD 2017 3E2017 56310; repeat 2027 5c2017 Social History Social History Type Response Smoking Status Former smoker; Other : quit 30 years ago; entered on: 07/24/17 Sex
--- OUTSIDE RECORDS SUMMARY | 2022-05-24 00:11 | XMS_ITS | Continuity of Care Document ---
Author Name Unknown Organization [facility] Jose Daniel Address [address] [place] [address]- Care Team Providers Care Multimedia Services Manager Name Role Phone Mayuri PASCUAL, Eddie Morales Primary Care Physician Encounter [facility] [place] Date(s): 12/30/21 - 01/29/22 [facility] Adult [address] [place] [address]- Allergies, Adverse Reactions, Alerts No Known Allergies Immunizations Given and Recorded Vaccine Date Status Refusal Reason influenza virus vaccine, inactivated 1 01/22/22 Gi kunal influenza virus vaccine, inactivated 12/20/20 Joshua rded influenza virus vaccine, inactivated 10/23/19 Joshua rded influenza virus vaccine, inactivated 2, 3 11/07/08 Given SARS-CoV-2 mRNA ([id number]) vax 05/25/21 Recorded SARS-CoV-2 (COVID-19) mRNA BNT-162b2 vac 12/20/20 Recorded SARS-CoV-2 (COVID-19) mRNA BNT-162b2 vac 06/03/20 Recorded SARS-CoV-2 (COVID-19) mRNA BNT-162b2 vac 05/01/20 Recorded Influenza Virus Vaccine (oldterm) 12/24/18 Recorde d Zoster Vaccine Live 12/14/18 Recorded tetanus/diphtheria/pertussis, acel(Tdap) 07/21/18 Given pneumococcal 13-valent vaccine 07/21/18 Given pneumococcal 23-valent vaccine 4, 5 11/07/08 Given 1Result Comment: [facility]-[id number] 2Early/Late Reason: Nursing Judgment 3Result Comment: sanofi pasteur [id number] 4Early/Late Reason: Nursing Judgment 5Result Comment: [id number] [employer]ck [employer] Medications Advair Diskus 100 mcg-50 mcg inhalation powder 1, inhalation, Inhalation, 2 times a day, rinse mouth and throat after use, # 1 pack/packet, Refills 0, Tot. Refills 0, Maintenance, 01/22/22 11:10:00 EST, Powder, Route to Pharmacy Electronically, [id number], [facility]/pharmacy #0... Start Date: 01/22/22 Status: Ordered Albuterol (Eqv-Proventil HFA) 90 mcg/inh inhalation aerosol 2 puffs, Inhalation, 4 times a day, # 20.1 each, 5 Refills, Maintenance, 10/13/21 9:29:00 EDT, [facility], 158, cm, 09/19/21 15:25:00 EDT, Height Start Date: 10/13/21 Status: Ordered bupropion extended release = 200 mg, By Mouth, Daily, 0 Refills, Maintenance, 04/22/18 8:53:19 EDT Start Date: 04/22/18 Status: Ordered digoxin 0.125 mg oral tablet 1, tablet, By Mouth, Daily, # 90 tablet, Refills 3, Tot. Refills 3, Maintenance, 11/08/21 12:38:00 EDT, Route to Pharmacy Electronically, [facility]/pharmacy #0843, 158, cm, 11/07/21 11:39:00 EDT, Height Start Date: 11/08/21 Stop Date: 11/03/22 Status: Ordered DilTIAZem (Eqv-Cardizem CD) 360 mg/24 hours oral capsule, extended release 1 capsule, By Mouth, Daily, # 60 capsule, 2 Refills, Maintenance, 01/23/22 13:54:00 EST, [facility], 158, cm, 01/22/22 10:05:00 EST, Height, 61, kg, 12/02/21 11:51:00 EDT, Dry Weight Start Date: 01/23/22 Status: Ordered Eliquis 5 mg oral tablet 1 tablet = 5 mg, By Mouth, 2 times a day, # 60 tablet, 6 Refills, Maintenance, 10/15/21 10:41:00 EDT, Tablet, [facility]/pharmacy #0843, Partial fill upon patient request [...] EST, [facility], [facility] STORE 50568, 158, cm, 12/02/21 12:48:00 EDT, Height, 61, [...] Uterine prolapse Confirmed Active 1c2017 2E2017 3E2017 37033; repeat 2027 5c2017 Social History Social History Type Response Smoking Status Former smoker; Other : quit 30 years ago; entered on: 07/24/17 Sex Patient Care team information Care Team Personnel Name: Mayuri PASCUAL, Eddie Morales Position: [facility] Primary Care Physician Member Role: PCP Address: Address: [address] [place] [address]- Care Team Related Persons Name: BRANDON CHANDRA Address: home [address] [place] [address]
--- OUTSIDE RECORDS SUMMARY | 2022-05-24 00:11 | XMS_ITS | Continuity of Care Document ---
Author Name Unknown Organization [facility] Address [address] [place] [address]- Care Team Providers Care Director Of Safety And Security Name Role Phone Eddie Messina MD Primary Care Physician Encounter [facility] [place] Date(s): 10/24/21 - 11/23/21 [facility] [address] [place] [address]- Allergies, Adverse Reactions, Alerts No Known Allergies [...] Reason: Nursing Judgment 2Result Comment: sanofi pasteur [id number] 3Early/Late Reason: Nursing Judgment 4Result Comment: [id number] [employer]ck [employer] Medications Albuterol (Eqv-Proventil HFA) 90 mcg/inh inhalation aerosol 2 puffs, Inhalation, 4 times a day, # 20.1 each, 5 Refills, Maintenance, 10/13/21 9:29:00 EDT, [facility], 158, cm, 09/19/21 15:25:00 EDT, Height Start Date: 10/13/21 Status: Ordered bupropion extended release = 200 mg, By Mouth, Daily, 0 Refills, Maintenance, 04/22/18 8:53:19 EDT Start Date: 04/22/18 Status: Ordered digoxin 0.125 mg oral tablet 1, tablet, By Mouth, Daily, # 90 tablet, Refills 3, Tot. Refills 3, Maintenance, 11/08/21 12:38:00 EDT, Route to Pharmacy Electronically, [facility]/pharmacy #0843, 158, cm, 11/07/21 11:39:00 EDT, Height Start Date: 11/08/21 Stop Date: 11/03/22 Status: Ordered dilTIAZem 360 mg/24 hours oral capsule, extended release 1 capsule = 360 mg, By Mouth, Daily, # 30 capsule, 2 Refills, Maintenance, 10/09/21 16:35:00 EDT, [facility]/pharmacy #0843, dose increase, 158, cm, [...] 6 Refills, Maintenance, 10/15/21 10:41:00 EDT, Tablet, [facility]/pharmacy #0843, Partial fill upon patient [...] tablet, Refills 1, Route to Pharmacy Electronically, [facility] STORE 64839, 158, cm, 07/30/21 8:48:00 EDT, Height Start [...] prolapse Confirmed Active 1colo 2018 2E2017 3E2017 47340; repeat 2027 5c2017 Social History Social History Type Response Smoking Status Former smoker; Other : quit 30 years ago; entered on: 07/24/17 Sex Patient Care team information Personnel Name: Mayuri PASCUAL, Eddie Morales Address: Address: [address] [place] [id number]
--- OUTSIDE RECORDS SUMMARY | 2022-05-24 00:11 | XMS_ITS | Continuity of Care Document ---
Author Name Unknown Organization [facility] Address [address] [place] [address]- Care Team Providers Care Toddler Caregiver Name Role Phone Mayuri PASCUAL, Eddie Morales Primary Care Physician Encounter [facility] [place] Date(s): 01/08/21 - 01/15/21 [facility] [address] [place] [address]- Attending Physician: Tamra PASCUAL, Alfonso Kirkpatrick Referring Physician: Eddie Messina MD Allergies, Adverse [...] Given 1Early/Late Reason: Nursing Judgment 2Result Comment: [id number] [employer]ck [employer] 3Early/Late Reason: Nursing Judgment 4Result Comment: sanofi pasteur [id number] Medications Albuterol (Eqv-ProAir HFA) 90 mcg/inh inhalation aerosol 2 puffs, Inhalation, 4 times a day, # 25.5 each, 1 Refills, [facility], 90, INHALE 2 PUFFS BY MOUTH 4 TIMES A DAY, 158, cm, 10/08/20 7:48:00 EDT, Height Start Date: 12/13/20 Status: Ordered albuterol 0.083% inhalation solution 3 mL = 2.5 mg, Inhalation, Every 4 hours, PRN for wheezing, # 25 each, 5 Refills, Maintenance, 10/20/19 15:51:00 EDT, Solution, [facility]/pharmacy #0843, 158, cm, 09/08/19 15:53:00 [...] Gm, 0 Refills, Maintenance, 07/07/19 13:13:00 EDT, Clear, [facility]/pharmacy #0843, 1 sprays Nares, Both 2 times a day, 158, cm, 06/16/19 15:37:00 EDT, Height, 95.45, kg, 01/08/18 3:57:00 EST, Dry Weight Start Date: 07/07/19 Status: Ordered Flovent HFA 110 mcg/inh inhalation aerosol 2 puffs, Inhalation, 2 times a day, RINSE THROAT AFTER USE, # 36 each, 1 Refills, [facility] STORE 67168, 158, cm, 10/08/20 7:48:00 EDT, Height Start [...] 09/21/19 9:10:00 EDT, [facility], cm, 09/08/19 15:53:00 EDT, Height, 95.45, kg, 01/08/18 3:57:00 EST, Dry Weight Start Date: 09/21/19 Stop Date: 09/15/20 Status: Ordered Metoprolol Succinate ER 25 mg oral tablet, extended release 1 tablet, By Mouth, Daily, # 90 tablet, 0 Refills, Maintenance, 01/07/21 9:58:00 EST, [facility]/pharmacy #0843, 158, cm, 01/05/21 11:10:00 EST, Height Start Date: 01/07/21 Status: Ordered montelukast 10 mg oral tablet 1, tablet, By Mouth, Daily in AM, # 90 tablet, Refills 1, Tot. Refills 0, Maintenance, 07/30/20 11:29:00 EDT, Route to Pharmacy Electronically, [facility] STORE 77218, 158, cm, 05/28/20 9:37:00 EDT, Height Start [...] Uterine prolapse(Confirmed) Active 1colo 2017 2E2017 3E2017 89652; repeat 2027 Vital Signs Most recent to oldest [Reference Range]: 1 Height 158 cm (01/08/21 2:29 PM) Weight 66.7 kg (01/08/21 2:29 PM) Oxygen Saturation [94-100 %] 98 % (01/08/21 2:29 PM) Pulse Rate [55-90 bpm] 70 bpm (01/08/21 2:29 PM) Body Mass Index [18.5-24.99] 26.72 *H* (01/08/21 2:29 PM) Blood Pressure [90-138/55-84 mm Hg] 126/ 74mm Hg (01/08/21 2:29 PM) Temperature [96.8-100.4 DegF] 97.6 DegF (01/08/21 2:29 PM) Blood pressure sites Arm, right (01/08/21 2:29 PM) Temperature Route Temporal (01/08/21 2:29 PM) Social History Social History Type Response Smoking Status Former smoker; Other : quit 30 years ago; entered on: 07/24/17 Sex
--- OUTSIDE RECORDS SUMMARY | 2022-05-24 00:11 | XMS_ITS | Continuity of Care Document ---
Author Name Unknown Organization [facility] [place] Jose Daniel Address [address] [place] [address]- Care Team Providers Care Aviation Program Manager Name Role Phone Mayuri PASCUAL, Eddie Morales Primary Care Physician Encounter [facility] [place] Date(s): 09/16/21 - 10/16/21 [facility] [place] Adult [address] [place] [address]- Allergies, Adverse Reactions, Alerts No Known Allergies [...] Reason: Nursing Judgment 2Result Comment: sanofi pasteur [id number] 3Early/Late Reason: Nursing Judgment 4Result Comment: [id number] [employer]ck [employer] Medications Albuterol (Eqv-Proventil HFA) 90 mcg/inh inhalation aerosol 2 puffs, Inhalation, 4 times a day, # 20.1 each, 5 Refills, Maintenance, 10/13/21 9:29:00 EDT, [facility], 158, cm, 09/19/21 15:25:00 EDT, Height Start [...] 10/09/21 12:26:00 EDT, Route to Pharmacy Electronically, [facility]/pharmacy #0843, Partial fill upon patient request if the prescription is for a schedule II opioid dr... Start Date: 10/09/21 Status: Ordered dilTIAZem 360 mg/24 hours oral capsule, extended release 1 capsule = 360 mg, By Mouth, Daily, # 30 capsule, 2 Refills, Maintenance, 10/09/21 16:35:00 EDT, [facility]/pharmacy #0843, dose increase, 158, cm, 09/19/21 15:25:00 [...] 6 Refills, Maintenance, 10/15/21 10:41:00 EDT, Tablet, [facility]/pharmacy #0843, Partial fill upon patient request if the prescription is for a schedule II opioid drug., 158, cm, 09/19/21 15:25:00 EDT,... Start Date: 10/15/21 Status: Ordered Flonase 50 mcg/inh nasal spray 1 sprays, Nares, Both, 2 times a day, # 16 Gm, 0 Refills, Maintenance, 07/07/19 13:13:00 EDT, [place], [facility]/pharmacy #0843, 1 sprays Nares, Both 2 times a day, 158, cm, 06/16/19 15:37:00 EDT, Height, 95.45, kg, 01/08/18 3:57:00 EST, Dry Weight Start Date: 07/07/19 Status: Ordered Flovent HFA 110 mcg/inh inhalation aerosol 2 puffs, Inhalation, 2 times a day, RINSE THROAT AFTER USE, # 3 each, 0 Refills, Maintenance, 10/09/21 12:29:00 EDT, [facility]/pharmacy #0843, 158, cm, 09/19/21 15:25:00 EDT, Height [...] tablet, Refills 1, Route to Pharmacy Electronically, [facility] STORE 59727, 158, cm, 07/30/21 8:48:00 EDT, Height Start [...] Active 1colo 2017 2EGD 2017 3EGD 2017 58824; repeat 2027 5colo 2017 Social History Social History Type Response Smoking Status Former smoker; Other : quit 30 years ago; entered on: 07/24/17 Sex Care Team Personnel Name: Eddie Messina MD Address: [address] [place] [address]-
--- OUTSIDE RECORDS SUMMARY | 2022-05-24 00:11 | XMS_ITS | Continuity of Care Document ---
Author Name Unknown Organization [facility] Address [address] [place] [address]- Care Team Providers Care Gift Shop Manager Name Role Phone Eddie Messina MD Primary Care Physician [place] [facility] [place] 05/22/21 - 06/27/[address] [address]- Attending Physician: Jada Mackenzie MD Admitting Physician: Jada Mackenzie MD Referring Physician: Jada Mackenzie MD Allergies, Adverse Reactions, Alerts No Known [...] Reason: Nursing Judgment 2Result Comment: sanofi pasteur [id number] 3Early/Late Reason: Nursing Judgment 4Result Comment: [id number] [employer]ck [employer] Medications Albuterol (Eqv-ProAir HFA) [...] 02/26/21 11:31:00 EST, [facility], [facility], Partial fill upon patient requestif the [...] Gm, 0 Refills, Maintenance, 07/07/19 13:13:00 EDT, [place], [facility], 1 sprays Nares, Both 2 [...] tablet, Refills 1, Route to Pharmacy Electronically, [facility] 67619, 158, cm, 01/23/21 6:49:00 EST, Height Start [...] Uterine prolapse(Confirmed) Active 1colo 2017 2E2017 3E2017 11758; repeat 2027 5c2017 Social History Social History Type Response Smoking Status Former smoker; Other : quit 30 years ago; entered on: 07/24/17 Sex
--- OUTSIDE RECORDS SUMMARY | 2022-05-24 00:11 | XMS_ITS | Continuity of Care Document ---
Author Name Unknown Organization [facility] Jose Daniel Address [address] [place] [address]- Care Team Providers Care Control Systems Eng Name Role Phone Mayuri PASCUAL, Eddie Morales Primary Care Physician [phone] Encounter [facility] Date(s): 06/05/21 - 10/03/21 [facility] Adult [address] [place] [address]- Attending Physician: Mylene Muller NP Referring Physician: [...] Reason: Nursing Judgment 2Result Comment: sanofi pasteur [id number] 3Early/Late Reason: Nursing Judgment 4Result Comment: [id number] [employer]ck [employer] Medications Albuterol (Eqv-ProAir HFA) [...] Gm, 0 Refills, Maintenance, 07/07/19 13:13:00 EDT, [place], [facility]/pharmacy #0843, 1 sprays Nares, [...] 2:59:16, Tablet Start Date: 12/15/16 Status: Ordered Macrobid macrocrystals-monohydrate 100 mg oral capsule 1 capsule = 100 mg, By Mouth, 2 times a day, for 5 days, # 10 capsule, 0 Refills, Acute 10/08/21 10:14:00 EDT, 10/03/21 10:14:00 EDT, Capsule, [facility]/pharmacy #0843, Partial fill upon patient request ifthe prescription is for a schedule II opioid drug.,... Start Date: 10/03/21 Stop Date: 10/08/21 Status: Ordered montelukast 10 mg oral tablet 1, tablet, By Mouth, Daily in AM, # 90 tablet, Refills 1, Route to Pharmacy Electronically, [facility] STORE 96700, 158, cm, 07/30/21 8:48:00 EDT, Height Start [...] Active 1colo 2018 2EGD 2017 3EGD 2017 70789; repeat 2027 5colo 2017 Social History Social History Type Response Smoking Status Former smoker; Other : quit 30 years ago; entered on: 07/24/17 Sex Care Team Personnel Name: Eddie Messina MD Address: [address] [place] [id number]
--- OUTSIDE RECORDS SUMMARY | 2022-05-24 00:11 | XMS_ITS | Continuity of Care Document ---
Author Name Unknown Organization [facility] Address [address] [place] [address]- Care Team Providers Care Renal Dialysis Rn Name Role Phone Edide Messina MD Primary Care Physician Encounter [facility] [place] Date(s): 11/08/21 - 12/08/21 [facility] [address] [place] [address]- Allergies, Adverse Reactions, Alerts No Known Allergies [...] Reason: Nursing Judgment 2Result Comment: sanofi pasteur [id number] 3Early/Late Reason: Nursing Judgment 4Result Comment: [id number] [employer] Medications Albuterol (Eqv-Proventil HFA) 90 mcg/inh inhalation aerosol 2 puffs, Inhalation, 4 times a day, # 20.1 each, 5 Refills, Maintenance, 10/13/21 9:29:00 EDT, [facility], 158, cm, 09/19/21 15:25:00 EDT, Height Start Date: 10/13/21 Status: Ordered bupropion extended release = 200 mg, By Mouth, Daily, 0 Refills, Maintenance, 04/22/18 8:53:19 EDT Start Date: 04/22/18 Status: Ordered digoxin 0.125 mg oral tablet 1, tablet, By Mouth, Daily, # 90 tablet, Refills 3, Tot. Refills 3, Maintenance, 11/08/21 12:38:00 EDT, Route to Pharmacy Electronically, [facility]/pharmacy #0843, 158, cm, 11/07/21 11:39:00 EDT, Height Start Date: 11/08/21 Stop Date: 11/03/22 Status: Ordered DilTIAZem (Eqv-Cardizem CD) 360 mg/24 hours oral capsule, extended release 1 capsule, By Mouth, Daily, # 60 capsule, 2 Refills, Maintenance, 11/27/21 9:57:00 EDT, [facility], 158, cm, 11/07/21 11:39:00 EDT, Height Start [...] 6 Refills, Maintenance, 10/15/21 10:41:00 EDT, Tablet, [facility]/pharmacy #0843, Partial fill upon patient request if the prescription is for a schedule II opioid drug., 158, cm, 09/19/21 15:25:00 EDT,... Start Date: 10/15/21 Status: Ordered Flovent HFA 110 mcg/inh inhalation aerosol 2 puffs, Inhalation, 2 times a day, RINSE THROAT AFTER USE, # 3 each, 0 Refills, Maintenance, 10/09/21 12:29:00 EDT, [facility]/pharmacy #0843, 158, cm, 09/19/21 15:25:00 EDT, [...] tablet, Refills 1, Route to Pharmacy Electronically, [facility], 158, cm, 07/30/21 8:48:00 EDT, Height Start [...] Uterine prolapse Confirmed Active 1c2017 2E2017 3E2017 71039; repeat 2027 5c2017 Social History Social History Type Response Smoking Status Former smoker; Other : quit 30 years ago; entered on: 07/24/17 Sex Patient Care team information Personnel Name: Mayuri PASCUAL, Eddie Morales Address: Address: [address] [place] [address]
--- OUTSIDE RECORDS SUMMARY | 2022-05-24 00:11 | XMS_ITS | Continuity of Care Document ---
Author Name Unknown Organization [facility] Jose Daniel Address [address] [place] [address]- Care Team Providers Care Cloth Winding Supervisor Name Role Phone Mayuri PASCUAL, Eddie Morales Primary Care Physician [phone] [place] [facility] [place] 08[place]29/21 [facility] Adult [address] [place] [address]- Allergies, Adverse Reactions, Alerts No Known Allergies [...] Reason: Nursing Judgment 2Result Comment: sanofi pasteur [id number] 3Early/Late Reason: Nursing Judgment 4Result Comment: [id number] merck [employer] Medications Albuterol (Eqv-ProAir HFA) 90 mcg/inh inhalation aerosol 2 puffs, Inhalation, 4 times a day, # 3 each, 1 Refills, Maintenance, 05/15/21 9:52:00 EDT, [facility]/pharmacy #0843, 2 puffs Inhalation 4 times a day, 158, cm, 02/26/21 11:08:00 EST, Height Start Date: 05/15/21 Status: Ordered amLODIPine 2.5 mg oral tablet 1 tablet, By Mouth, Daily, # 90 tablet, 1 Refills, [facility] ST[facility]650, 158, cm, 07/30/21 8:48:00 EDT, Height Start Date: 08/23/21 Status: Ordered bupropion extended release = 200 [...] Gm, 0 Refills, Maintenance, 07/07/19 13:13:00 EDT, [place], [facility]/pharmacy #0843, 1 sprays Nares, Both 2 times a day, 158, cm, 06/16/19 15:37:00 EDT, Height, 95.45, kg, 01/08/18 3:57:00 EST, Dry Weight Start Date: 07/07/19 Status: Ordered Flovent HFA 110 mcg/inh inhalation aerosol 2 puffs, Inhalation, 2 times a day, RINSE THROAT AFTER USE, # 3 each, 1 Refills, Maintenance, 05/15/21 9:51:00 EDT, [facility]/pharmacy #0843, 158, cm, 02/26/21 11:08:00 EST, [...] 1, Route to Pharmacy Electronically, [facility], 158, cm, 07/30/21 8:48:00 EDT, Height Start [...] Active 1colo 2017 2EGD 2017 3EGD 2017 42313; repeat 2027 5c2017 Social History Social History Type Response Smoking Status Former smoker; Other : quit 30 years ago; entered on: 07/24/17 Sex
--- OUTSIDE RECORDS SUMMARY | 2022-05-24 00:11 | XMS_ITS | Continuity of Care Document ---
Author Name Unknown Organization [facility] Jose Daniel Address [address] [place] [address]- Care Team Providers Care Labor And Delivery Nurse Name Role Phone Mayuri PASCUAL, Eddie Morales Primary Care Physician En[place] [facility] [place] Date(s): 09/02/19 - 10/08/19 [facility] Adult [address] [place] [address]- [facility] Attending Physician: Renzo MCKEON, Mylene Manzano Allergies, [...] Given 1Early/Late Reason: Nursing Judgment 2Result Comment: [id number] merck and co 3Early/Late Reason: Nursing Judgment 4Result Comment: sanofi pasteur [id number] Medications albuterol 0.083% inhalation solution 3 mL [...] Gm, 0 Refills, Maintenance, 07/07/19 13:13:00 EDT, [place], [facility]/pharmacy #0843, 1 sprays Nares, Both 2 times a day, 158, cm, 06/16/19 15:37:00 EDT, Height, 95.45, kg, 01/08/18 3:57:00 EST, Dry Weight Start Date: 07/07/19 Status: Ordered gabapentin 100 mg oral capsule 100 mg, 1, capsule, By Mouth, 3 times a day, DOSAGE DECREASE, # 90 capsule, Refills 0, Tot. Refills0, Maintenance, 06/30/19 13:01:00 EDT, [facility], cm, 06/16/19 15:37:00 EDT, Height, [...] 09/21/19 9:10:00 EDT, [facility], cm, 09/08/19 15:53:00 EDT, Height, 95.45, kg, 01/08/18 3:57:00 EST, Dry Weight Start Date: 09/21/19 Stop Date: 09/15/20 Status: Ordered montelukast 10 mg oral tablet 1, tablet, By Mouth, Daily in AM, # 90 tablet, Refills 1, Tot. Refills 0, Maintenance, 07/26/19 11:57:00 EDT, Route to Pharmacy Electronically, [facility] STORE 41368, 158, cm, 06/16/19 15:37:00 EDT, Height, 95.45, [...] 15:51:00 EDT, Inhaler, Route to Pharmacy Electronically, [id number],[facility]/pharmacy #0843, 158, cm, 08/08/19 9:42:00 EDT,... [...] cardiomyopathy(Confirmed) Active Uterine prolapse(Confirmed) Active 1c2017 2E2017 29967; repeat 2027 5colo 2017 Social History Social History Type Response Smoking Status Former smoker; Other : quit 30 years ago; entered on: 07/24/17 Sex
--- OUTSIDE RECORDS SUMMARY | 2022-05-24 00:11 | XMS_ITS | Continuity of Care Document ---
Author Name Unknown Organization [facility] Jose Daniel Address [address] [place] [address]- Care Team Providers Care Aboriginal Community Council Member Name Role Phone Eddie Messina MD Primary Care Physician [phone] Encounter [facility] [place] Date(s): 02/26/21 - 03/05/21 [facility] Adult [address] [place] [address]- Encounter Diagnosis Hypertension(Discharge Diagnosis) - 02/26/21 Attending Physician: Renzo MCKEON, Mylene Manzano Referring Physician: Eddie Messina MD Allergies, Adverse [...] Reason: Nursing Judgment 2Result Comment: sanofi pasteur [id number] 3Early/Late Reason: Nursing Judgment 4Result Comment: [id number] [employer]ck [employer] Medications Albuterol (Eqv-ProAir HFA) 90 mcg/inh inhalation aerosol 2 puffs, Inhalation, 4 times a day, # 25.5 each, 1 Refills, [facility], 90, INHALE 2 PUFFS BY MOUTH 4 TIMES A DAY, 158, cm, 10/08/20 7:48:00 EDT, Height Start Date: 12/13/20 Status: Ordered albuterol 0.083% inhalation solution 3 mL = 2.5 mg, Inhalation, Every 4 hours, PRN for wheezing, # 25 each, 5 Refills, Maintenance, 10/20/19 15:51:00 EDT, [place], [facility]/pharmacy #0843, 158, cm, 09/08/19 15:53:00 EDT, Height, 95.45, kg, 01/08/18 3:57:00 EST, Dry Weight Start Date: 10/20/19 Status: Ordered amLODIPine 2.5 mg oral tablet 2.5 mg, 1, tablet, By Mouth, Daily, # 90 tablet, Refills 1, Tot. Refills 1, Maintenance, 02/26/21 11:31:00 EST, Route to Pharmacy Electronically, [facility]/pharmacy #0843, Partial fill upon patient requestif the [...] Gm, 0 Refills, Maintenance, 07/07/19 13:13:00 EDT, [place], [facility]/pharmacy #0843, 1 sprays Nares, Both 2 times a day, 158, cm, 06/16/19 15:37:00 EDT, Height, 95.45, kg, 01/08/18 3:57:00 EST, Dry Weight Start Date: 07/07/19 Status: Ordered Flovent HFA 110 mcg/inh inhalation aerosol 2 puffs, Inhalation, 2 times a day, RINSE THROAT AFTER USE, # 36 each, 1 Refills, [facility], 158, cm, 10/08/20 7:48:00 EDT, Height Start [...] 1, Route to Pharmacy Electronically, [facility], 158, cm, 01/23/21 6:49:00 EST, Height Start [...] Uterine prolapse(Confirmed) Active 1colo 2017 2E2017 3E2017 40727; repeat 2027 5c2017 Diagnosis Diagnosis Type Effective Dates Health Status Cl inical Service Informant Hypertension Discharge Diagnosis 02/26/21 Vital Signs Most recent to oldest [Reference Range]: 1 Height 158 cm (02/26/21 11:08 AM) Weight 65.0 kg (02/26/21 11:08 AM) Oxygen Saturation [94-100 %] 93 % *L* (02/26/21 11:08 AM) Pulse Rate [55-90 bpm] 86 bpm (02/26/21 11:08 AM) Body Mass Index [18.5-24.99] 26.04 *H* (02/26/21 11:08 AM) Blood Pressure [90-138/55-84 mm Hg] 136/ 80mm Hg (02/26/21 11:08 AM) Temperature [96.8-100.4 DegF] 98.0 DegF (02/26/21 11:08 AM) Mode of Delivery (Oxygen) Room air (02/26/21 11:08 AM) Blood pressure sites Arm, left (02/26/21 11:08 AM) Temperature Route Oral (02/26/21 11:08 AM) Weight Obtained Via Standing scale (02/26/21 11:08 AM) Social History Social History Type Response Smoking Status Former smoker; Other : quit 30 years ago; entered on: 07/24/17 Sex
--- OUTSIDE RECORDS SUMMARY | 2022-05-24 00:11 | XMS_ITS | Continuity of Care Document ---
Author Name Unknown Organization [facility] Jose Daniel lt Address [address] [place] [address]- Care Team Providers Care Dev Ops Engineer Name Role Phone Mayuri PASCUAL, Eddie Morales Primary Care Physician [place] [facility] [place] 08[place]29/21 [facility] Adult [address] [place] [address]- Attending Physician: Admjermaine, Scot8 Admitting Physician: Admtr, [id number] Referring Physician: [...] Reason: Nursing Judgment 2Result Comment: sanofi pasteur [id number] 3Early/Late Reason: Nursing Judgment 4Result Comment: [id number] [employer]ck [employer] Medications Albuterol (Eqv-ProAir HFA) 90 mcg/inh inhalation aerosol 2 puffs, Inhalation, 4 times a day, # 3 each, 1 Refills, Maintenance, 05/15/21 9:52:00 EDT, [facility]/pharmacy #0843, 2 puffs Inhalation 4 times a day, 158, cm, 02/26/21 11:08:00 EST, Height Start Date: 05/15/21 Status: Ordered amLODIPine 2.5 mg oral tablet 1 tablet, By Mouth, Daily, # 90 tablet, 1 Refills, [facility], 158, cm, 07/30/21 8:48:00 EDT, Height Start [...] Gm, 0 Refills, Maintenance, 07/07/19 13:13:00 EDT, [place], [facility]/pharmacy #0843, 1 sprays Nares, Both [...] tablet, Refills 1, Route to Pharmacy Electronically, [facility], 158, cm, 07/30/21 8:48:00 EDT, Height Start [...] prolapse(Confirmed) Active 1colo 2017 2EGD 2017 3E2017 90967; repeat 2027 5c2017 Social History Social History Type Response Smoking Status Former smoker; Other : quit 30 years ago; entered on: 07/24/17 Sex
--- OUTSIDE RECORDS SUMMARY | 2022-05-24 00:11 | XMS_ITS | Continuity of Care Document ---
Author Name Unknown Organization [facility] Jose Daniel Address [address] [place] [address]- Care Team Providers Care Anesthesiologist And Critical Care Name Role Phone Mayuri PASCUAL, Eddie Morales Primary Care Physician [place] [facility] [place] 10/20/21 [facility] Adult [address] [place] [address]- Allergies, Adverse Reactions, Alerts No Known Allergies [...] Reason: Nursing Judgment 2Result Comment: sanofi pasteur [id number] 3Early/Late Reason: Nursing Judgment 4Result Comment: [id number] [id number] [employer] Medications Albuterol (Eqv-Proventil HFA) 90 mcg/inh inhalation aerosol 2 puffs, Inhalation, 4 times a day, # 20.1 each, 5 Refills, Maintenance, 10/13/21 9:29:00 EDT, [facility], 158, cm, 09/19/21 15:25:00 EDT, Height Start [...] 10/09/21 12:26:00 EDT, Route to Pharmacy Electronically, [facility]/pharmacy #0843, Partial fill upon patient request if the prescription is for a schedule II opioid dr... Start Date: 10/09/21 Status: Ordered dilTIAZem 360 mg/24 hours oral capsule, extended release 1 capsule = 360 mg, By Mouth, Daily, # 30 capsule, 2 Refills, Maintenance, 10/09/21 16:35:00 EDT, [facility]/pharmacy #0843, dose increase, 158, cm, [...] 6 Refills, Maintenance, 10/15/21 10:41:00 EDT, Tablet, [facility]/pharmacy #0843, Partial fill upon patient request if the prescription is for a schedule II opioid drug., 158, cm, 09/19/21 15:25:00 EDT,... Start Date: 10/15/21 Status: Ordered Flonase 50 mcg/inh nasal spray 1 sprays, Nares, Both, 2 times a day, # 16 Gm, 0 Refills, Maintenance, 07/07/19 13:13:00 EDT, [place], [facility]/pharmacy #0843, 1 sprays Nares, Both 2 times a day, 158, cm, 06/16/19 15:37:00 EDT, Height, 95.45, kg, 01/08/18 3:57:00 EST, Dry Weight Start Date: 07/07/19 Status: Ordered Flovent HFA 110 mcg/inh inhalation aerosol 2 puffs, Inhalation, 2 times a day, RINSE THROAT AFTER USE, # 3 each, 0 Refills, Maintenance, 10/09/21 12:29:00 EDT, [facility]/pharmacy #0843, 158, cm, 09/19/21 15:25:00 [...] tablet, Refills 1, Route to Pharmacy Electronically, [facility] 59012, 158, cm, 07/30/21 8:48:00 EDT, Height Start [...] Active 1colo 2017 2EGD 2017 3EGD 2017 08526; repeat 2027 5colo 2017 Social History Social History Type Response Smoking Status Former smoker; Other : quit 30 years ago; entered on: 07/24/17 Sex Care Team Personnel Name: Eddie Messina MD Address: [address] [place] [address]-
--- OUTSIDE RECORDS SUMMARY | 2022-05-24 00:12 | XMS_ITS | Continuity of Care Document ---
Author Name Unknown Organization [facility] Jose Daniel lt Address [address] [place] [address]- Care Team Providers Care Antisqueak Applier Name Role Phone Eddie Messina MD Primary Care Physician [place] [facility] [place] 08/14/20 - 10/06/20 [facility] Adult [address] [place] [address]- Attending Physician: Not on Staff, Attending MD [...] Given 1Early/Late Reason: Nursing Judgment 2Result Comment: [id number] [employer]ck [employer] 3Early/Late Reason: Nursing Judgment 4Result Comment: sanofi pasteur [id number] Medications albuterol 0.083% inhalation solution 3 mL [...] Gm, 0 Refills, Maintenance, 07/07/19 13:13:00 EDT, [place], [facility]/pharmacy #0843, 1 sprays Nares, Both 2 times a day, 158, cm, 06/16/19 15:37:00 EDT, Height, 95.45, kg, 01/08/18 3:57:00 EST, Dry Weight Start Date: 07/07/19 Status: Ordered Flovent HFA 110 mcg/inh inhalation aerosol 2 puffs, Inhalation, 2 times a day, /THROAT AFTER USE., # 36 Unknown, 1 Refills, Maintenance, 06/21/20 15:48:00 EDT, [facility]/pharmacy #0843, 158, cm, 05/28/20 9:37:00 EDT, [...] Route to Pharmacy Electronically, [facility]/pharmacy #0843, 158, cm, 09/08/19 15:53:00 EDT, Height, 95.45, kg, 01/08/18 3:57:00 EST, Dry Weight Start Date: 09/21/19 Stop Date: 09/15/20 Status: Ordered Metoprolol Succinate ER 25 mg oral tablet, extended release 1 tablet, By Mouth, Daily, please call office and schedule appt for further refills, # 90 tablet, 0 Refills, Maintenance, 09/13/20 8:12:00 EDT, [facility]/pharmacy #0843, 158, cm, 05/28/20 9:37:00 EDT, Height Start Date: 09/13/20 Status: Ordered montelukast 10 mg oral tablet 1, tablet, By Mouth, Daily in AM, # 90 tablet, Refills 1, Tot. Refills 0, Maintenance, 07/30/20 11:29:00 EDT, Route to Pharmacy Electronically, [facility] STORE 95710, 158, cm, 05/28/20 9:37:00 EDT, Height Start [...] 14:19:00 EDT, Inhaler, Route to Pharmacy Electronically, [id number],[facility]/pharmacy #0843, 158, cm, 05/28/20 9:37:00 EDT,... [...] Uterine prolapse(Confirmed) Active 1colo 2017 2E2017 3E2017 43981; repeat 2027 5c2017 Social History Social History Type Response Smoking Status Former smoker; Other : quit 30 years ago; entered on: 07/24/17 Sex
--- OUTSIDE RECORDS SUMMARY | 2022-05-24 00:12 | XMS_ITS | Continuity of Care Document ---
Author Name Unknown Organization [facility] Jose Daniel Address [address] [place] [address]- Care Team Providers Care City Treasurer Name Role Phone Mayuri PASCUAL, Eddie Morales Primary Care Physician [phone] Encounter [facility] Date(s): 06/26/20 - 07/26/20 [facility] Adult [address] [place] [address]- Allergies, Adverse Reactions, Alerts Substance Reaction Severity Status NKA Active Immunizations Given and Recorded Vaccine Date Status Refusal Reason Influenza Virus Vaccine (oldterm) 12/24/18 Recorde d Zoster Vaccine Live 12/14/18 Recorded tetanus/diphtheria/pertussis, acel(Tdap) 07/21/18 Given pneumococcal 13-valent vaccine 07/21/18 Given pneumococcal 23-valent vaccine 1, 2 11/07/08 Given influenza virus vaccine, inactivated 3, 4 11/07/08 Given 1Early/Late Reason: Nursing Judgment 2Result Comment: [id number] [id number] merck and co 3Early/Late Reason: Nursing Judgment 4Result Comment: sanofi pasteur [id number] Medications albuterol 0.083% inhalation solution 3 mL [...] Gm, 0 Refills, Maintenance, 07/07/19 13:13:00 EDT, [place], [facility], 1 sprays Nares, Both 2 times a day, 158, cm, 06/16/19 15:37:00 EDT, Height, 95.45, kg, 01/08/18 3:57:00 EST, Dry Weight Start Date: 07/07/19 Status: Ordered Flovent HFA 110 mcg/inh inhalation aerosol 2 puffs, Inhalation, 2 times a day, /THROAT AFTER USE., # 36 Unknown, 1 Refills, Maintenance, 06/21/20 15:48:00 EDT, [facility], 158, cm, 05/28/20 9:37:00 EDT, Height [...] By Mouth, 2 times a day, for 7 days, # 14 capsule, 0 Refills, Acute 08/01/20 11:33:00 EDT, 07/25/20 11:33:00 EDT, [facility], Partial fill upon patient request if the prescription is for a schedule II opioid drug., 158, cm,... Start Date: 07/25/20 Stop Date: 08/01/20 Status: Ordered metoprolol 25 mg oral tablet, extended release 25 mg, 1, tablet, By Mouth, Daily, # 90 tablet, Refills 3, Tot. Refills 3, Maintenance, 09/21/19 9:10:00 EDT, Route to Pharmacy Electronically, [facility]/pharmacy #0843, 158, cm, 09/08/19 15:53:00 EDT, Height, 95.45, kg, 01/08/18 3:57:00 EST, Dry Weight Start Date: 09/21/19 Stop Date: 09/15/20 Status: Ordered montelukast 10 mg oral tablet 1, tablet, By Mouth, Daily in AM, # 90 tablet, Refills 1, Tot. Refills 1, Maintenance, 01/24/20 13:15:00 EST, Route to Pharmacy Electronically, [facility]/pharmacy #0843, 158, cm, 01/12/20 9:43:00 EST, Height [...] 14:19:00 EDT, Inhaler, Route to Pharmacy Electronically, [id number],[facility]/pharmacy #0843, 158, cm, 05/28/20 9:37:00 EDT,... Start [...] prolapse(Confirmed) Active 1colo 2017 2EGD 2017 3E2017 70360; repeat 2027 5c2017 Social History Social History Type Response Smoking Status Former smoker; Other : quit 30 years ago; entered on: 07/24/17 Sex
--- OUTSIDE RECORDS SUMMARY | 2022-05-24 00:12 | XMS_ITS | Continuity of Care Document ---
Author Name Unknown Organization [facility] Jose Daniel lt Address [address] [place] [address]- Care Team Providers Care Clinical Allergist Name Role Phone Mayuri PASCUAL, Eddie Morales Primary Care Physician Encounter [facility] [place] Date(s): 12/23/21 - 01/22/22 [facility] Adult [address] [place] [address]- Allergies, Adverse Reactions, Alerts No Known Allergies Immunizations Given and Recorded Vaccine Date Status Refusal Reason influenza virus vaccine, inactivated 1 01/22/22 Gi kunal influenza virus vaccine, inactivated 12/20/20 Joshua rded influenza virus vaccine, inactivated 10/23/19 Jsohua rded influenza virus vaccine, inactivated 2, 3 11/07/08 Given SARS-CoV-2 mRNA (maopgif-xhji-tiemz) vax 05/25/21 Recorded SARS-CoV-2 (COVID-19) mRNA BNT-162b2 vac 12/20/20 Recorded SARS-CoV-2 (COVID-19) mRNA BNT-162b2 vac 06/03/20 Recorded SARS-CoV-2 (COVID-19) mRNA BNT-162b2 vac 05/01/20 Recorded Influenza Virus Vaccine (oldterm) 12/24/18 Recorde d Zoster Vaccine Live 12/14/18 Recorded tetanus/diphtheria/pertussis, acel(Tdap) 07/21/18 Given pneumococcal 13-valent vaccine 07/21/18 Given pneumococcal 23-valent vaccine 4, 5 11/07/08 Given 1Result Comment: [id number] 2Early/Late Reason: Nursing Judgment 3Result Comment: sanofi pasteur [id number] 4Early/Late Reason: Nursing Judgment 5Result Comment: [id number] [employer]ck [employer] Medications Advair Diskus 100 mcg-50 mcg inhalation powder 1, inhalation, Inhalation, 2 times a day, rinse mouth and throat after use, # 1 pack/packet, Refills 0, Tot. Refills 0, Maintenance, 01/22/22 11:10:00 EST, Pow[place], Route to Pharmacy Electronically, [id number], [facility]/pharmacy #0... Start Date: 01/22/22 Status: Ordered Albuterol (Eqv-Proventil HFA) 90 mcg/inh inhalation aerosol 2 puffs, Inhalation, 4 times a day, # 20.1 each, 5 Refills, Maintenance, 10/13/21 9:29:00 EDT, [facility], 158, cm, 09/19/21 15:25:00 EDT, Height Start Date: 10/13/21 Status: Ordered bupropion extended release = 200 mg, By Mouth, Daily, 0 Refills, Maintenance, 04/22/18 8:53:19 EDT Start Date: 04/22/18 Status: Ordered digoxin 0.125 mg oral tablet 1, tablet, By Mouth, Daily, # 90 tablet, Refills 3, Tot. Refills 3, Maintenance, 11/08/21 12:38:00 EDT, Route to Pharmacy Electronically, [facility]/pharmacy #0843, 158, cm, 11/07/21 11:39:00 EDT, Height Start Date: 11/08/21 Stop Date: 11/03/22 Status: Ordered DilTIAZem (Eqv-Cardizem CD) 360 mg/24 hours oral capsule, extended release 1 capsule, By Mouth, Daily, # 60 capsule, 2 Refills, Maintenance, 11/27/21 9:57:00 EDT, [facility], 158, cm, 11/07/21 11:39:00 EDT, Height Start [...] each, 0 Refills, Maintenance, 10/09/21 12:29:00 EDT, [facility]/pharmacy #0843, 158, cm, 09/19/21 15:25:00 EDT, Height Start Date: 10/09/21 Status: Ordered LaMICtal 200 mg oral tablet 1 tablet = 200 mg, By Mouth, Daily, # 180 tablet, 0 Refills, Maintenance, 12/15/16 2:59:16, Tablet Start Date: 12/15/16 Status: Ordered montelukast 10 mg oral tablet 1, tablet, By Mouth, Daily in AM, # 90 tablet, Refills 2, Maintenance, 12/31/21 13:35:00 EST, [facility]eto Pharmacy Electronically, [facility] ST[facility] 80228, 158, cm, 12/02/21 12:48:00 EDT, Height, 61, [...] Active 1colo 2017 2EGD 2017 3EGD 2017 45925; repeat 2027 5colo 2017 Social History Social History Type Response Smoking Status Former smoker; Other : quit 30 years ago; entered on: 07/24/17 Sex Patient Care team information Care Team Personnel Name: Eddie Messina MD Position: [facility] Primary Care Physician Member Role: PCP Address: Address: [address] [place] [address]- Care Team Related Persons Name: BRANDON CHANDRA Address: home [address] [place] [address]
--- OUTSIDE RECORDS SUMMARY | 2022-05-24 00:12 | XMS_ITS | Continuity of Care Document ---
Author Name Unknown Organization [facility] Han Grullon Jose Daniel Address [address] [place] [address]- Care Team Providers Care S Iron Worker Name Role Phone Mayuri PASCUAL, Eddie Morales Primary Care Physician [phone] Encounter [facility] Date(s): 01/22/22 - 02/21/22 [facility] Adult [address] [place] [address]- Allergies, Adverse Reactions, Alerts No Known Allergies Immunizations Given and Recorded Vaccine Date Status Refusal Reason pneumococcal 20-valent conjugate vaccine 1 01/26/22 Recorded [id number] bivalent booster vax 01/26/22 Recorded influenza virus vaccine, inactivated 2 01/22/22 Gi kunal influenza virus vaccine, inactivated 12/20/20 Josuha rded influenza virus vaccine, inactivated 10/23/19 Joshua rded influenza virus vaccine, inactivated 3, 4 11/07/08 Given SARS-CoV-2 mRNA ([id number]-ofpp-jfvik) vax 05/25/21 Recorded SARS-CoV-2 (COVID-19) mRNA BNT-162b2 vac 12/20/20 Recorded SARS-CoV-2 (COVID-19) mRNA BNT-162b2 vac 06/03/20 Recorded SARS-CoV-2 (COVID-19) mRNA BNT-162b2 vac 05/01/20 Recorded Influenza Virus Vaccine (oldterm) 12/24/18 Recorde d Zoster Vaccine Live 12/14/18 Recorded tetanus/diphtheria/pertussis, acel(Tdap) 07/21/18 Given pneumococcal 13-valent vaccine 07/21/18 Given pneumococcal 23-valent vaccine 5, 6 11/07/08 Given 1Result Comment: Record received from [facility] Pharmacy 2Result Comment: [id number] 3Early/Late Reason: Nursing Judgment 4Result Comment: sanofi pasteur [id number] 5Early/Late Reason: Nursing Judgment 6Result Comment: [id number] [employer]ck [employer] Medications Albuterol (Eqv-Proventil HFA) 90 mcg/inh inhalation aerosol 2 puffs, Inhalation, 4 times a day, # 20.1 each, 5 Refills, Maintenance, 10/13/21 9:29:00 EDT, [facility] STORE 65699, 158, cm, 09/19/21 15:25:00 EDT, Height Start Date: 10/13/21 Status: Ordered bupropion extended release = 200 mg, By Mouth, Daily, 0 Refills, Maintenance, 04/22/18 8:53:19 EDT Start Date: 04/22/18 Status: Ordered digoxin 0.125 mg oral tablet 1, tablet, By Mouth, Daily, # 90 tablet, Refills 3, Tot. Refills 3, Maintenance, 11/08/21 12:38:00 EDT, Route to Pharmacy Electronically, [facility]/pharmacy #0843, 158, cm, 11/07/21 11:39:00 EDT, Height Start Date: 11/08/21 Stop Date: 11/03/22 Status: Ordered DilTIAZem (Eqv-Cardizem CD) 360 mg/24 hours oral capsule, extended release 1 capsule, By Mouth, Daily, # 60 capsule, 2 Refills, Maintenance, 01/23/22 13:54:00 EST, [facility]/pharmacy #0843, 158, cm, 01/22/22 10:05:00 EST, Height, 61, kg, 12/02/21 11:51:00 EDT, Dry Weight Start Date: 01/23/22 Status: Ordered Eliquis 5 mg oral tablet 1 tablet, By Mouth, 2 times a day, # 60 tablet, 6 Refills, Maintenance, 02/13/22 15:42:00 EST, [facility], 158, cm, 02/07/22 9:00:00 EST, Height, 61, [...] tablet, Refills 2, Maintenance, 12/31/21 13:35:00 EST, [facility] Electron[facility], [facility] ST[facility] 38552, 158, cm, 12/02/21 12:48:00 EDT, Height, 61, [...] each, 0 Refills, Maintenance, 02/14/22 16:14:00 EST, [facility] STORE 95554, 30, INHALE 1 INHALATION 2 TIMES A [...] Confirmed Active 1colo 2017 2EGD 2017 3E2017 88600; repeat 2027 5c2017 Social History Social History Type Response Smoking Status Former smoker; Other : quit 30 years ago; entered on: 07/24/17 Sex Patient Care team information Care Team Personnel Name: Mayuri PASCUAL, Eddie Morales Position: [facility] Primary Care Physician Member Role: PCP Address: Address: [address] [place] [address]- Care Team Related Persons Name: BRANDON CHANDRA Address: home [address] [place] [address]
--- OUTSIDE RECORDS SUMMARY | 2022-05-24 00:12 | XMS_ITS | Continuity of Care Document ---
Author Name Unknown Organization [facility] Jose Daniel Address [address] [place] [address]- Care Team Providers Care Manager Division Name Role Phone Eddie Messina MD Primary Care Physician [phone] Encounter [facility] Date(s): 04/28/19 - 05/05/19 [facility] Adult [address] [place] [address]- [facility] Attending Physician: Not on Staff, Attending MD [...] Given 1Early/Late Reason: Nursing Judgment 2Result Comment: [id number] [employer]ck and [employer] 3Early/Late Reason: Nursing Judgment 4Result Comment: sanofi pasteur [id number] Medications albuterol 0.083% inhalation solution 3 mL [...] 03/29/19 9:52:00 EST, Route to Pharmacy Electronically, [facility]/pharmacy #0843, 158, cm, 02/04/19 11:28:00 EST, Height, 95.45, kg, 01/08/18 3:57:00 EST, Dry Weight Start Date: 03/29/19 Stop Date: 09/25/19 Status: Ordered montelukast 10 mg oral tablet See Instructions, # 90 tablet, Refills 1 Tot. Refills 1, TAKE 1 TABLET BY MOUTH EVERY MORNING, [facility]/pharmacy #0843 Start Date: 11/29/18 Status: Ordered NEBULIZER [...] 20:05:00 EST, Inhaler, Route to Pharmacy Electronically, [id number],[facility]/pharmacy #0843, 158, cm, 04/04/19 13:57:00 EST,... Start [...] Active 1colo 2017 2EGD 2017 3EGD 2017 22005; repeat 2027 5c2017 Social History Social History Type Response Smoking Status Former smoker; Other : quit 30 years ago; entered on: 07/24/17 Sex
--- OUTSIDE RECORDS SUMMARY | 2022-05-24 00:12 | XMS_ITS | Continuity of Care Document ---
Author Name Unknown Organization [facility] Jose Daniel Address [address] [place] [address]- Care Team Providers Care Industrial Controls Technician Name Role Phone Mayuri PASCUAL, Eddie Morales Primary Care Physician [phone] Encounter [facility] [place] [place] Date(s): 08/10/20 - 09/09/20 [facility] Adult [address] [place] [address]- Allergies, Adverse Reactions, Alerts Substance Reaction Severity Status NKA Active Immunizations Given and Recorded Vaccine Date Status Refusal Reason Influenza Virus Vaccine (oldterm) 12/24/18 Recorde d Zoster Vaccine Live 12/14/18 Recorded tetanus/diphtheria/pertussis, acel(Tdap) 07/21/18 Given pneumococcal 13-valent vaccine 07/21/18 Given pneumococcal 23-valent vaccine 1, 2 11/07/08 Given influenza virus vaccine, inactivated 3, 4 11/07/08 Given 1Early/Late Reason: Nursing Judgment 2Result Comment: [id number] merck and co 3Early/Late Reason: Nursing Judgment 4Result Comment: sanofi pasteur [id number] Medications albuterol 0.083% inhalation solution 3 mL [...] Gm, 0 Refills, Maintenance, 07/07/19 13:13:00 EDT, [place], [facility]/pharmacy #0843, 1 sprays Nares, Both 2 times a day, 158, cm, 06/16/19 15:37:00 EDT, Height, 95.45, kg, 01/08/18 3:57:00 EST, Dry Weight Start Date: 07/07/19 Status: Ordered Flovent HFA 110 mcg/inh inhalation aerosol 2 puffs, Inhalation, 2 times a day, /THROAT AFTER USE., # 36 Unknown, 1 Refills, Maintenance, 06/21/20 15:48:00 EDT, [facility]/pharmacy #0843, 158, cm, 05/28/20 9:37:00 EDT, Height [...] 09/21/19 9:10:00 EDT, Route to Pharmacy Electronically, [facility]/pharmacy #0843, 158, cm, 09/08/19 15:53:00 EDT, Height, 95.45, kg, 01/08/18 3:57:00 EST, Dry Weight Start Date: 09/21/19 Stop Date: 09/15/20 Status: Ordered montelukast 10 mg oral tablet 1, tablet, By Mouth, Daily in AM, # 90 tablet, Refills 1, Tot. Refills 0, Maintenance, 07/30/20 11:29:00 EDT, Route to Pharmacy Electronically, [facility] STORE 24251, 158, cm, 05/28/20 9:37:00 EDT, Height Start [...] 14:19:00 EDT, Inhaler, Route to Pharmacy Electronically, [id number],[facility]/pharmacy #0843, 158, cm, 05/28/20 9:37:00 EDT,... Start [...] Uterine prolapse(Confirmed) Active 1colo 2017 2E2017 3E2017 07914; repeat 2027 5c2017 Social History Social History Type Response Smoking Status Former smoker; Other : quit 30 years ago; entered on: 07/24/17 Sex
--- OUTSIDE RECORDS SUMMARY | 2022-05-24 00:12 | XMS_ITS | Continuity of Care Document ---
Author Name Unknown Organization [facility] Address [address] [place] [address]- Care Team Providers Care Head Of Research & Insights Name Role Phone Mayuri PASCUAL, Eddie Morales Primary Care Physician [phone] Encounter [facility] Date(s): 01/07/21 - 02/06/21 [facility] [address] [place] [address]- [place] Allergies, Adverse Reactions, Alerts Substance Reaction Severity [...] Reason: Nursing Judgment 2Result Comment: sanofi pasteur [id number] 3Early/Late Reason: Nursing Judgment 4Result Comment: [id number] [id number] [employer]ck [employer] co Medications Albuterol (Eqv-ProAir HFA) 90 mcg/inh inhalation aerosol 2 puffs, Inhalation, 4 times a day, # 25.5 each, 1 Refills, [facility] STORE 20381, 90, INHALE 2 PUFFS BY MOUTH 4 TIMES A DAY, 158, cm, 10/08/20 7:48:00 EDT, Height Start Date: 12/13/20 Status: Ordered albuterol 0.083% inhalation solution 3 mL = 2.5 mg, Inhalation, Every 4 hours, PRN for wheezing, # 25 each, 5 Refills, Maintenance, 10/20/19 15:51:00 EDT, Solution, [facility]/pharmacy #0843, 158, cm, 09/08/19 15:53:00 EDT, Height, 95.45, kg, 01/08/18 3:57:00 EST, Dry Weight Start Date: 10/20/19 Status: Ordered amLODIPine 2.5 mg oral tablet 2.5 mg, 1, tablet, By Mouth, Daily, # 30 tablet, Refills 1, Tot. Refills 1, Maintenance, 01/21/21 10:00:00 EST, Route to Pharmacy Electronically, [facility]/pharmacy [...] Gm, 0 Refills, Maintenance, 07/07/19 13:13:00 EDT, [place], [facility]/pharmacy #0843, 1 sprays Nares, Both 2 times a day, 158, cm, 06/16/19 15:37:00 EDT, Height, 95.45, kg, 01/08/18 3:57:00 EST, Dry Weight Start Date: 07/07/19 Status: Ordered Flovent HFA 110 mcg/inh inhalation aerosol 2 puffs, Inhalation, 2 times a day, RINSE THROAT AFTER USE, # 36 each, 1 Refills, [facility] STORE 97626, 158, cm, 10/08/20 7:48:00 EDT, Height Start [...] 07/30/20 11:29:00 EDT, Route to Pharmacy Electronically, [facility] ST[facility] 12308, 158, cm, 05/28/20 9:37:00 EDT, Height Start [...] prolapse(Confirmed) Active 1colo 2017 2EGD 2017 3E2017 95846; repeat 2027 5c2017 Social History Social History Type Response Smoking Status Former smoker; Other : quit 30 years ago; entered on: 07/24/17 Sex
--- OUTSIDE RECORDS SUMMARY | 2022-05-24 00:12 | XMS_ITS | Continuity of Care Document ---
Author Name Unknown Organization [facility] Address [address] [place] [address]- Care Team Providers Care Education Professor Name Role Phone Eddie Messina MD Primary Care Physician [place] [facility] [place] 11[place]25[place]21 - 12/25/21 [facility] [address] [place] [address]- Allergies, Adverse Reactions, Alerts No Known Allergies [...] Reason: Nursing Judgment 2Result Comment: sanofi pasteur [id number] 3Early/Late Reason: Nursing Judgment 4Result Comment: [id number] [employer]ck [employer] Medications Albuterol (Eqv-Proventil HFA) 90 mcg/inh inhalation aerosol 2 puffs, Inhalation, 4 times a day, # 20.1 each, 5 Refills, Maintenance, 10/13/21 9:29:00 EDT, [facility], 158, cm, 09/19/21 15:25:00 EDT, Height Start [...] Refills, Maintenance, 11/27/21 9:57:00 EDT, [facility], 158, cm, 11/07/21 11:39:00 EDT, Height Start [...] 6 Refills, Maintenance, 10/15/21 10:41:00 EDT, Tablet, [facility]/pharmacy #0843, Partial fill upon patient request [...] tablet, Refills 1, Route to Pharmacy Electronically, [facility] STORE 05450, 158, cm, 07/30/21 8:48:00 EDT, Height Start [...] Active 1colo 2017 2EGD 2017 3EGD 2017 19931; repeat 2027 5c2017 Social History Social History Type Response Smoking Status Former smoker; Other : quit 30 years ago; entered on: 07/24/17 Sex Patient Care team information Care Team Personnel Name: Eddie Messina MD Position: [facility] Primary Care Physician Member Role: PCP Address: Address: [address] [place] [address]- Care Team Related Persons Name: BRANDON CHANDRA Address: home [address] [place] [address]
--- OUTSIDE RECORDS SUMMARY | 2022-05-24 00:12 | XMS_ITS | Continuity of Care Document ---
Author Name Unknown Organization [facility] Jose Daniel Address [address] [place] [address]- Care Team Providers Care Clothes Designer Name Role Phone Mayuri PASCUAL, Eddie Morales Primary Care Physician Encounter [facility] Date(s): 03/26/21 - 04/25/21 [facility] Adult [address] [place] [address]- Allergies, Adverse Reactions, Alerts No Known Allergies [...] Reason: Nursing Judgment 2Result Comment: sanofi pasteur [id number] 3Early/Late Reason: Nursing Judgment 4Result Comment: [id number] [employer]ck [employer] Medications Albuterol (Eqv-ProAir HFA) 90 mcg/inh inhalation aerosol 2 puffs, Inhalation, 4 times a day, # 25.5 each, 1 Refills, [facility] STORE 37786, 90, INHALE 2 PUFFS BY MOUTH 4 TIMES A DAY, 158, cm, 10/08/20 7:48:00 EDT, Height Start Date: 12/13/20 Status: Ordered albuterol 0.083% inhalation solution 3 mL = 2.5 mg, Inhalation, Every 4 hours, PRN for wheezing, # 25 each, 5 Refills, Maintenance, 10/20/19 15:51:00 EDT, Solution, [facility]/pharmacy #0843, 158, cm, 09/08/19 15:53:00 EDT, Height, 95.45, kg, 01/08/18 3:57:00 EST, Dry Weight Start Date: 10/20/19 Status: Ordered amLODIPine 2.5 mg oral tablet 2.5 mg, 1, tablet, By Mouth, Daily, # 90 tablet, Refills 1, Tot. Refills 1, Maintenance, 02/26/21 11:31:00 EST, [facility] fill upon patient requestif [...] Gm, 0 Refills, Maintenance, 07/07/19 13:13:00 EDT, [place], [facility]/pharmacy #0843, 1 sprays Nares, Both 2 times a day, 158, cm, 06/16/19 15:37:00 EDT, Height, 95.45, kg, 01/08/18 3:57:00 EST, Dry Weight Start Date: 07/07/19 Status: Ordered Flovent HFA 110 mcg/inh inhalation aerosol 2 puffs, Inhalation, 2 times a day, RINSE THROAT AFTER USE, # 36 each, 1 Refills, [facility], 158, cm, 10/08/20 7:48:00 EDT, Height Start [...] 1, Route to Pharmacy Electronically, [facility], 158, cm, 01/23/21 6:49:00 EST, Height Start [...] prolapse(Confirmed) Active 1colo 2017 2EGD 2017 3E2017 41709; repeat 2027 5c2017 Social History Social History Type Response Smoking Status Former smoker; Other : quit 30 years ago; entered on: 07/24/17 Sex
--- OUTSIDE RECORDS SUMMARY | 2022-05-24 00:12 | XMS_ITS | Continuity of Care Document ---
Author Name Unknown Organization [facility] Address [address] [place] [address]- Care Team Providers Care Air Compressor Mechanic Name Role Phone Mayuri PASCUAL, Eddie Morales Primary Care Physician [place] [facility] [place] Date(s): 12/02/21 - 12/02/[address] [address]- Discharge Disposition: A-D/C Home Attending Physician: Maco Mendez MD Admitting Physician: Maco Mendez MD Referring Physician: Seth Johnson MD Allergies, Adverse Reactions, Alerts No Known [...] Reason: Nursing Judgment 2Result Comment: sanofi pasteur [id number] 3Early/Late Reason: Nursing Judgment 4Result Comment: [id number] [id number] [id number] merck and co Medications Albuterol (Eqv-Proventil HFA) 90 mcg/inh inhalation aerosol 2 puffs, Inhalation, 4 times a day, # 20.1 each, 5 Refills, Maintenance, 10/13/21 9:29:00 EDT, [facility] STORE 85326, 158, cm, 09/19/21 15:25:00 EDT, Height Start Date: 10/13/21 Status: Ordered bupropion extended release = 200 mg, By Mouth, Daily, 0 Refills, Maintenance, 04/22/18 8:53:19 EDT Start Date: 04/22/18 Status: Ordered digoxin 0.125 mg oral tablet 1, tablet, By Mouth, Daily, # 90 tablet, Refills 3, Tot. Refills 3, Maintenance, 11/08/21 12:38:00 EDT, Route to Pharmacy Electronically, [facility]/pharmacy #0843, 158, cm, 11/07/21 11:39:00 EDT, Height Start Date: 11/08/21 Stop Date: 11/03/22 Status: Ordered DilTIAZem (Eqv-Cardizem CD) 360 mg/24 hours oral capsule, extended release 1 capsule, By Mouth, Daily, # 60 capsule, 2 Refills, Maintenance, 11/27/21 9:57:00 EDT, [facility], 158, cm, 11/07/21 11:39:00 EDT, Height Start [...] Refills, Maintenance, 10/15/21 10:41:00 EDT, Tablet, [facility]/pharmacy #0843, Partial fill upon patient request if the prescription is for a schedule II opioid drug., 158, cm, 09/19/21 15:25:00 EDT,... Start Date: 10/15/21 Status: Ordered Flovent HFA 110 mcg/inh inhalation aerosol 2 puffs, Inhalation, 2 times a day, RINSE THROAT AFTER USE, # 3 each, 0 Refills, Maintenance, 10/09/21 12:29:00 EDT, [facility]/pharmacy #0843, 158, cm, 09/19/21 15:25:00 EDT, [...] Refills 1, Route to Pharmacy Electronically, [facility] STORE 52076, 158, cm, 07/30/21 8:48:00 EDT, Height Start [...] Uterine prolapse Confirmed Active 1c2017 2E2017 3E2017 21304; repeat 2027 5c2017 Vital Signs Most recent to oldest [Reference Range]: 1 2 3 Height 158 cm (12/02/21 12:48 PM) 158 cm (12/02/21 12:47 PM) 158 cm (12/02/21 11:51 AM) Weight 61 kg (12/02/21 12:48 PM) 61 kg (12/02/21 11:51 AM) Oxygen Saturation [94-100 %] 99 % (12/02/21 3:40 PM) 100 % (12/02/21 3:38 PM) 99 % (12/02/21 3:32 PM) Pulse Rate [55-90 bpm] 52 bpm *L* (12/02/21 3:40 PM) 54 bpm *L* (12/02/21 3:38 PM) 57 bpm (12/02/21 3:32 PM) Blood Pressure [90-138/55-84 mm Hg] 118/62mm Hg (12/02/21 3:40 PM) 114/64mm Hg (12/02/21 3:38 PM) 112/52mm Hg (12/02/21 3:32 PM) Respiratory Rate [16-30 br/min] 16 br/min (12/02/21 3:40 PM) 18 br/min (12/02/21 3:38 PM) 18 br/min (12/02/21 3:32 PM) Temperature [96.8-100.4 DegF] 98.3 DegF (12/02/21 12:47 PM) Mode of Delivery (Oxygen) Room air (12/02/21 3:40 PM) Room air (12/02/21 3:38 PM) Room air (12/02/21 3:32 PM) Blood pressure sites Arm, left (12/02/21 3:40 PM) Arm, left (12/02/21 3:38 PM) Arm, left (12/02/21 3:32 PM) Temperature Route Oral (12/02/21 12:47 PM) Dry Weight 61 kg (12/02/21 11:51 AM) Social History Social History Type Response Smoking Status Former smoker; Other : quit 30 years ago; entered on: 07/24/17 Sex Patient Care team information Personnel Name: Mayuri PASCUAL, Eddie Morales Address: Address: [address] [place] [address]-
--- OUTSIDE RECORDS SUMMARY | 2022-05-24 00:12 | XMS_ITS | Continuity of Care Document ---
Author Name Unknown Organization [facility] Jose Daniel lt Address [address] [place] [address]- Care Team Providers Care Structures Engineer Name Role Phone Mayuri PASCUAL, Eddie Morales Primary Care Physician [facility]counter [facility] Date(s): 04/21/22 - 05/21/22 [facility] Adult [address] [place] [address]- Allergies, Adverse Reactions, Alerts No Known Allergies Immunizations Given and Recorded Vaccine Date Status Refusal Reason pneumococcal 20-valent conjugate vaccine 1 01/26/22 Recorded [id number] bivalent booster vax 01/26/22 Recorded influenza virus vaccine, inactivated 2 01/22/22 Gi kunal influenza virus vaccine, inactivated 12/20/20 Joshua rded influenza virus vaccine, inactivated 10/23/19 Joshua rded influenza virus vaccine, inactivated 3, 4 11/07/08 Given SARS-CoV-2 mRNA (foqtqjj-oybr-ynakx) vax 05/25/21 Recorded SARS-CoV-2 (COVID-19) mRNA BNT-162b2 vac 12/20/20 Recorded SARS-CoV-2 (COVID-19) mRNA BNT-162b2 vac 06/03/20 Recorded SARS-CoV-2 (COVID-19) mRNA BNT-162b2 vac 05/01/20 Recorded Influenza Virus Vaccine (oldterm) 12/24/18 Recorde d Zoster Vaccine Live 12/14/18 Recorded tetanus/diphtheria/pertussis, acel(Tdap) 07/21/18 Given pneumococcal 13-valent vaccine 07/21/18 Given pneumococcal 23-valent vaccine 5, 6 11/07/08 Given 1Result Comment: Record received from [facility] Pharmacy 2Result Comment: [id number] 3Early/Late Reason: Nursing Judgment 4Result Comment: sanofi pasteur [id number] 5Early/Late Reason: Nursing Judgment 6Result Comment: [id number] [employer]ck [employer] Medications Albuterol (Eqv-Proventil HFA) 90 mcg/inh inhalation aerosol 2 puffs, Inhalation, 4 times a day, # 20.1 each, 5 Refills, Maintenance, 10/13/21 9:29:00 EDT, [facility] STORE 67677, 158, cm, 09/19/21 15:25:00 EDT, Height Start Date: 10/13/21 Status: Ordered bupropion extended release = 200 mg, By Mouth, Daily, 0 Refills, Maintenance, 04/22/18 8:53:19 EDT Start Date: 04/22/18 Status: Ordered digoxin 0.125 mg oral tablet 1, tablet, By Mouth, Daily, # 90 tablet, Refills 3, Tot. Refills 3, Maintenance, 11/08/21 12:38:00 EDT, Route to Pharmacy Electronically, [facility]/pharmacy #0843, 158, cm, 11/07/21 11:39:00 EDT, Height Start Date: 11/08/21 Stop Date: 11/03/22 Status: Ordered DilTIAZem (Eqv-Cardizem CD) 360 mg/24 hours oral capsule, extended release 1 capsule, By Mouth, Daily, # 60 capsule, 2 Refills, Maintenance, 01/23/22 13:54:00 EST, [facility]/pharmacy #0843, 158, cm, 01/22/22 10:05:00 EST, Height, 61, kg, 12/02/21 11:51:00 EDT, Dry Weight Start Date: 01/23/22 Status: Ordered Eliquis 5 mg oral tablet 1 tablet, By Mouth, 2 times a day, # 60 tablet, 3 Refills, Maintenance, 05/12/22 11:43:00 EDT, [facility] STORE 66704, 158, cm, 05/07/22 10:57:00 EDT, Height, 61, kg, 12/02/21 11:51:00 EDT, Dry Weight Start Date: 05/12/22 Status: Ordered Flonase 50 mcg/inh nasal spray 1 sprays, Nares, Both, 2 times a day, # 16 Gm, 11 Refills, Maintenance, 04/25/22 13:28:00 EDT, [place], [facility]/pharmacy #0843, Partial fill upon [...] Maintenance, 12/31/21 13:35:00 EST, [facility] Pharm[facility] Electronically, [facility] STORE 92621, 158, cm, 12/02/21 12:48:00 EDT, Height, 61, [...] Active 1colo 2017 2EGD 2017 3EGD 2017 36637; repeat 2027 5colo 2017 Social History Social History Type Response Smoking Status Former smoker; Other : quit 30 years ago; entered on: 07/24/17 Sex Patient Care team information Care Team Personnel Name: Eddie Messina MD Position: [facility] Primary Care Physician Member Role: PCP Address: Address: [address] [place] [address]- Care Team Related Persons Name: BRANDON CHANDRA Address: home [address] [place] [address]
--- OUTSIDE RECORDS SUMMARY | 2022-05-24 00:12 | XMS_ITS | Continuity of Care Document ---
Author Name Unknown Organization [facility] Address [address] [place] [address]- Care Team Providers Care House Sitter Name Role Phone Mayuri PASCUAL, Eddie Morales Primary Care Physician [facility]counter [facility] Date(s): 12/23/21 - 01/22/22 [facility] [address] [place] [address]- [place] Allergies, Adverse Reactions, Alerts No Known Allergies Immunizations Given and Recorded Vaccine Date Status Refusal Reason influenza virus vaccine, inactivated 1 01/22/22 Gi kunal influenza virus vaccine, inactivated 12/20/20 Joshua rded influenza virus vaccine, inactivated 10/23/19 Joshua rded influenza virus vaccine, inactivated 2, 3 11/07/08 Given SARS-CoV-2 mRNA ([id number]-uzgd-[id number]) vax 05/25/21 Recorded SARS-CoV-2 (COVID-19) mRNA BNT-162b2 vac 12/20/20 Recorded SARS-CoV-2 (COVID-19) mRNA BNT-162b2 vac 06/03/20 Recorded SARS-CoV-2 (COVID-19) mRNA BNT-162b2 vac 05/01/20 Recorded Influenza Virus Vaccine (oldterm) 12/24/18 Recorde d Zoster Vaccine Live 12/14/18 Recorded tetanus/diphtheria/pertussis, acel(Tdap) 07/21/18 Given pneumococcal 13-valent vaccine 07/21/18 Given pneumococcal 23-valent vaccine 4, 5 11/07/08 Given 1Result Comment: [id number] 2Early/Late Reason: Nursing Judgment 3Result Comment: sanofi pasteur [id number] 4Early/Late Reason: Nursing Judgment 5Result Comment: [id number] merck [employer] co Medications Advair Diskus 100 mcg-50 mcg inhalation powder 1, inhalation, Inhalation, 2 times a day, rinse mouth and throat after use, # 1 pack/packet, Refills 0, Tot. Refills 0, Maintenance, 01/22/22 11:10:00 EST, Powder, Route to Pharmacy Electronically, [id number], [facility]/pharmacy #0... Start Date: 01/22/22 Status: Ordered Albuterol (Eqv-Proventil HFA) 90 mcg/inh inhalation aerosol 2 puffs, Inhalation, 4 times a day, # 20.1 each, 5 Refills, Maintenance, 10/13/21 9:29:00 EDT, [facility], 158, cm, 09/19/21 15:25:00 EDT, Height Start Date: 10/13/21 Status: Ordered bupropion extended release = 200 mg, By Mouth, Daily, 0 Refills, Maintenance, 04/22/18 8:53:19 EDT Start Date: 04/22/18 Status: Ordered digoxin 0.125 mg oral tablet 1, tablet, By Mouth, Daily, # 90 tablet, Refills 3, Tot. Refills 3, Maintenance, 11/08/21 12:38:00 EDT, Route to Pharmacy Electronically, [facility]/pharmacy #0843, 158, cm, 11/07/21 11:39:00 EDT, Height Start Date: 11/08/21 Stop Date: 11/03/22 Status: Ordered DilTIAZem (Eqv-Cardizem CD) 360 mg/24 hours oral capsule, extended release 1 capsule, By Mouth, Daily, # 60 capsule, 2 Refills, Maintenance, 11/27/21 9:57:00 EDT, [facility], 158, cm, 11/07/21 11:39:00 EDT, Height Start Date: 11/27/21 Status: Ordered Eliquis 5 mg oral tablet 1 tablet = 5 mg, By Mouth, 2 times a day, # 60 tablet, 6 Refills, Maintenance, 10/15/21 10:41:00 EDT, Tablet, [facility]/pharmacy #0843, Partial fill upon patient request if the prescription is for a schedule II opioid drug., 158, cm, 09/19/21 15:25:00 EDT,... Start Date: 10/15/21 Status: Ordered Flovent HFA 110 mcg/inh inhalation aerosol 2 puffs, Inhalation, 2 times a day, RINSE THROAT AFTER USE, # 3 each, 0 Refills, Maintenance, 10/09/21 12:29:00 EDT, [facility]/pharmacy #0843, 158, cm, 09/19/21 15:25:00 EDT, Height Start Date: 10/09/21 Status: Ordered LaMICtal 200 mg oral tablet 1 tablet = 200 mg, By Mouth, Daily, # 180 tablet, 0 Refills, Maintenance, 12/15/16 2:59:16, Tablet Start Date: 12/15/16 Status: Ordered montelukast 10 mg oral tablet 1, tablet, By Mouth, Daily in AM, # 90 tablet, Refills 2, Maintenance, 12/31/21 13:35:00 [facility], 158, cm, 12/02/21 12:48:00 EDT, Height, 61, [...] Active 1colo 2017 2EGD 2017 3EGD 2017 86310; repeat 2027 5colo 2017 Social History Social History Type Response Smoking Status Former smoker; Other : quit 30 years ago; entered on: 07/24/17 Sex Patient Care team information Care Team Personnel Name: Mayuri PASCUAL, Eddie Morales Position: [facility] Primary Care Physician Member Role: PCP Address: Address: [address] [place] [address]- Care Team Related Persons Name: BRANDON CHANDRA Address: home [address] [place] [address]
--- OUTSIDE RECORDS SUMMARY | 2022-05-24 00:12 | XMS_ITS | Continuity of Care Document ---
Author Name Unknown Organization [facility] Jose Daniel Address [address] [place] [address]- Care Team Providers Care Laboratory Clerk Name Role Phone Mayuri PASCUAL, Eddie Morales Primary Care Physician [phone] Encounter [facility] Date(s): 10/08/20 - 11/07/20 [facility] Adult [address] [place] [address]- Allergies, Adverse Reactions, Alerts Substance Reaction Severity [...] Given 1Early/Late Reason: Nursing Judgment 2Result Comment: [id number] merck and co 3Early/Late Reason: Nursing Judgment 4Result Comment: sanofi pasteur [id number] Medications albuterol 0.083% inhalation solution 3 mL [...] Gm, 0 Refills, Maintenance, 07/07/19 13:13:00 EDT, [place], [facility]/pharmacy #0843, 1 sprays Nares, Both 2 times a day, 158, cm, 06/16/19 15:37:00 EDT, Height, 95.45, kg, 01/08/18 3:57:00 EST, Dry Weight Start Date: 07/07/19 Status: Ordered Flovent HFA 110 mcg/inh inhalation aerosol 2 puffs, Inhalation, 2 times a day, /THROAT AFTER USE., # 36 Unknown, 1 Refills, Maintenance, 06/21/20 15:48:00 EDT, [facility]/pharmacy #0843, 158, cm, 05/28/20 9:37:00 EDT, [...] 09/21/19 9:10:00 EDT, Route to Pharmacy Electronically, [facility]/pharmacy #0843, 158, cm, 09/08/19 15:53:00 EDT, Height, 95.45, kg, 01/08/18 3:57:00 EST, Dry Weight Start Date: 09/21/19 Stop Date: 09/15/20 Status: Ordered Metoprolol Succinate ER 25 mg oral tablet, extended release 1 tablet, By Mouth, Daily, please call office and schedule appt for further refills, # 90 tablet, 0 Refills, Maintenance, 09/13/20 8:12:00 EDT, [facility]/pharmacy #0843, 158, cm, 05/28/20 9:37:00 EDT, Height Start Date: 09/13/20 Status: Ordered montelukast 10 mg oral tablet 1, tablet, By Mouth, Daily in AM, # 90 tablet, Refills 1, Tot. Refills 0, Maintenance, 07/30/20 11:29:00 EDT, Route to Pharmacy Electronically, [facility] ST[facility] 82132, 158, cm, 05/28/20 9:37:00 EDT, Height Start [...] 14:19:00 EDT, Inhaler, Route to Pharmacy Electronically, [id number],[facility]/pharmacy #0843, 158, cm, 05/28/20 9:37:00 EDT,... [...] Active 1colo 2017 2EGD 2017 3EGD 2017 49327; repeat 2027 5colo 2017 Social History Social History Type Response Smoking Status Former smoker; Other : quit 30 years ago; entered on: 07/24/17 Sex
--- OUTSIDE RECORDS SUMMARY | 2022-05-24 00:12 | XMS_ITS | Continuity of Care Document ---
Author Name Unknown Organization [facility] Jose Daniel Address [address] [place] [address]- Care Team Providers Care Subscription Agent Name Role Phone Mayuri PASCUAL, Eddie Morales Primary Care Physician [facility]counter [facility] Date(s): 09/12/21 - 10/12/21 [facility] Adult [address] [place] [address]- Allergies, Adverse Reactions, Alerts No Known Allergies [...] Reason: Nursing Judgment 2Result Comment: sanofi pasteur [id number] 3Early/Late Reason: Nursing Judgment 4Result Comment: [id number] merck [employer] Medications Albuterol (Eqv-ProAir HFA) [...] 10/09/21 12:26:00 EDT, Route to Pharmacy Electronically, [facility]/pharmacy #0843, Partial fill upon patient request if the prescription is for a schedule II opioid drBlake.. Start Date: 10/09/21 Status: Ordered dilTIAZem 360 [...] Gm, 0 Refills, Maintenance, 07/07/19 13:13:00 EDT, [place], [facility], 1 sprays Nares, Both 2 times a day, 158, cm, 06/16/19 15:37:00 EDT, Height, 95.45, kg, 01/08/18 3:57:00 EST, Dry Weight Start Date: 07/07/19 Status: Ordered Flovent HFA 110 mcg/inh inhalation aerosol 2 puffs, Inhalation, 2 times a day, RINSE THROAT AFTER USE, # 3 each, 0 Refills, Maintenance, 10/09/21 12:29:00 EDT, [facility]/pharmacy #0843, 158, cm, 09/19/21 15:25:00 EDT, [...] tablet, Refills 1, Route to Pharmacy Electronically, [facility] STORE 56977, 158, cm, 07/30/21 8:48:00 EDT, Height Start [...] Active 1colo 2018 2EGD 2017 3EGD 2017 49010; repeat 2027 5colo 2017 Social History Social History Type Response Smoking Status Former smoker; Other : quit 30 years ago; entered on: 07/24/17 Sex Care Team Personnel Name: Eddie Messina MD Address: [address] [place] [address] [place], [place] [address]
--- OUTSIDE RECORDS SUMMARY | 2022-05-24 00:12 | XMS_ITS | Continuity of Care Document ---
Author Name Unknown Organization [facility] Address [address] [place] [address]- Care Team Providers Care Assistant Quality Manager Name Role Phone Eddie Messina MD Primary Care Physician [place] [facility] [place] 01/05/21 - 02/04/21 [facility] [address] [place] [address]- Attending Physician: Pili Chung Admitting Physician: Pili Chung Referring Physician: Pili Chung Allergies, Adverse Reactions, Alerts Substance Reaction Severity [...] Reason: Nursing Judgment 2Result Comment: sanofi pasteur [id number] 3Early/Late Reason: Nursing Judgment 4Result Comment: [id number] [employer]ck [employer] Medications Albuterol (Eqv-ProAir HFA) 90 mcg/inh inhalation aerosol 2 puffs, Inhalation, 4 times a day, # 25.5 each, 1 Refills, [facility] STORE 75494, 90, INHALE 2 PUFFS BY MOUTH 4 TIMES A DAY, 158, cm, 10/08/20 7:48:00 EDT, Height Start Date: 12/13/20 Status: Ordered albuterol 0.083% inhalation solution 3 mL = 2.5 mg, Inhalation, Every 4 hours, PRN for wheezing, # 25 each, 5 Refills, Maintenance, 10/20/19 15:51:00 EDT, Solution, [facility]/pharmacy #0843, 158, cm, 09/08/19 15:53:00 EDT, Height, 95.45, kg, 01/08/18 3:57:00 EST, Dry Weight Start Date: 10/20/19 Status: Ordered amLODIPine 2.5 mg oral tablet 2.5 mg, 1, tablet, By Mouth, Daily, # 30 tablet, Refills 1, Tot. Refills 1, Maintenance, 01/21/21 10:00:00 EST, [facility] Partial fill upon patient requestif [...] Gm, 0 Refills, Maintenance, 07/07/19 13:13:00 EDT, [place], [facility]/pharmacy #0843, 1 sprays Nares, Both 2 times a day, 158, cm, 06/16/19 15:37:00 EDT, Height, 95.45, kg, 01/08/18 3:57:00 EST, Dry Weight Start Date: 07/07/19 Status: Ordered Flovent HFA 110 mcg/inh inhalation aerosol 2 puffs, Inhalation, 2 times a day, RINSE THROAT AFTER USE, # 36 each, 1 Refills, [facility], 158, cm, 10/08/20 7:48:00 EDT, Height Start [...] 07/30/20 11:29:00 EDT, Route to Pharmacy Electronically, [facility], 158, cm, 05/28/20 9:37:00 EDT, Height Start [...] prolapse(Confirmed) Active 1colo 2017 2EGD 2017 3E2017 11989; repeat 2027 5c2017 Social History Social History Type Response Smoking Status Former smoker; Other : quit 30 years ago; entered on: 07/24/17 Sex
--- OUTSIDE RECORDS SUMMARY | 2022-05-24 00:12 | XMS_ITS | Continuity of Care Document ---
Author Name Unknown Organization [facility] Jose Daniel Address [address] [place] [address]- Care Team Providers Care Skiff Operator Name Role Phone Mayuri PASCUAL, Eddie Morales Primary Care Physician [facility] Date(s): 11/15/20 - 12/15/20 [facility] Adult [address] [place] [address]- Allergies, Adverse Reactions, Alerts Substance Reaction Severity [...] Given 1Early/Late Reason: Nursing Judgment 2Result Comment: [id number] merck and co 3Early/Late Reason: Nursing Judgment 4Result Comment: sanofi pasteur [id number] Medications Albuterol (Eqv-ProAir HFA) 90 mcg/inh inhalation aerosol 2 puffs, Inhalation, 4 times a day, # 25.5 each, 1 Refills, [facility] 59066, 90, INHALE 2 PUFFS BY MOUTH 4 TIMES A DAY, 158, cm, 10/08/20 7:48:00 EDT, Height Start Date: 12/13/20 Status: Ordered albuterol 0.083% inhalation solution 3 mL = 2.5 mg, Inhalation, Every 4 hours, PRN for wheezing, # 25 each, 5 Refills, Maintenance, 10/20/19 15:51:00 EDT, Solution, [facility]/pharmacy #0843, 158, cm, 09/08/19 [...] Gm, 0 Refills, Maintenance, 07/07/19 13:13:00 EDT, [place], [facility]/pharmacy #0843, 1 sprays Nares, Both 2 times a day, 158, cm, 06/16/19 15:37:00 EDT, Height, 95.45, kg, 01/08/18 3:57:00 EST, Dry Weight Start Date: 07/07/19 Status: Ordered Flovent HFA 110 mcg/inh inhalation aerosol 2 puffs, Inhalation, 2 times a day, RINSE THROAT AFTER USE, # 36 each, 1 Refills, [facility] 93636, 158, cm, 10/08/20 7:48:00 EDT, Height Start [...] 09/21/19 9:10:00 EDT, Route to Pharmacy Electronically, [facility]/pharmacy #0843, 158, cm, 09/08/19 15:53:00 EDT, Height, 95.45, kg, 01/08/18 3:57:00 EST, Dry Weight Start Date: 09/21/19 Stop Date: 09/15/20 Status: Ordered Metoprolol Succinate ER 25 mg oral tablet, extended release 1 tablet, By Mouth, Daily, please call office and schedule appt for further refills, # 90 tablet, 0 Refills, Maintenance, 09/13/20 8:12:00 EDT, [facility]/pharmacy #0843, 158, cm, 05/28/20 9:37:00 EDT, Height Start Date: 09/13/20 Status: Ordered montelukast 10 mg oral tablet 1, tablet, By Mouth, Daily in AM, # 90 tablet, Refills 1, Tot. Refills 0, Maintenance, 07/30/20 11:29:00 EDT, Route to Pharmacy Electronically, [facility]ORE 99423, 158, cm, 05/28/20 9:37:00 EDT, Height Start [...] Uterine prolapse(Confirmed) Active 1colo 2017 2E2017 3E2017 51278; repeat 2027 5c2017 Social History Social History Type Response Smoking Status Former smoker; Other : quit 30 years ago; entered on: 07/24/17 Sex
--- OUTSIDE RECORDS SUMMARY | 2022-05-24 00:13 | XMS_ITS | Continuity of Care Document ---
Author Name Unknown Organization [facility] Jose Daniel lt Address [address] [place] [address]- Care Team Providers Care Wood Fence Installer Name Role Phone Eddie Messina MD Primary Care Physician Encounter [facility] Date(s): 12/12/19 - 12/19/19 [facility] Adult [address] [place] [address]- Attending Physician: Mylene Muller NP Referring Physician: [...] Given 1Early/Late Reason: Nursing Judgment 2Result Comment: [id number] [employer] 3Early/Late Reason: Nursing Judgment 4Result Comment: sanofi pasteur [id number] Medications albuterol 0.083% inhalation solution 3 mL = 2.5 mg, Inhalation, Every 4 hours, PRN for wheezing, # 25 each, 5 Refills, Maintenance, 10/20/19 15:51:00 EDT, [place], [facility], 158, cm, 09/08/19 15:53:00 EDT, Height, 95.45, kg, 01/08/18 3:57:00 EST, Dry Weight Start Date: 10/20/19 Status: Ordered Aleve = 330 mg, By [...] Gm, 0 Refills, Maintenance, 07/07/19 13:13:00 EDT, [place], [facility]/pharmacy #0843, 1 sprays Nares, Both 2 times a day, 158, cm, 06/16/19 15:37:00 EDT, Height, 95.45, kg, 01/08/18 3:57:00 EST, Dry Weight Start Date: 07/07/19 Status: Ordered gabapentin 100 mg oral capsule 100 mg, 1, capsule, By Mouth, 3 times a day, DOSAGE DECREASE, # 90 capsule, Refills 0, Tot. Refills0, Maintenance, 06/30/19 13:01:00 EDT, Route to Pharmacy Electronically, [facility]/pharmacy #0843, 158, cm, 06/16/19 15:37:00 EDT, Height, [...] 9:10:00 EDT, Route to Pharmacy Electronically, [facility]/pharmacy #0843, 158, cm, 09/08/19 15:53:00 EDT, Height, 95.45, kg, 01/08/18 3:57:00 EST, Dry Weight Start Date: 09/21/19 Stop Date: 09/15/20 Status: Ordered montelukast 10 mg oral tablet 1, tablet, By Mouth, Daily in AM, # 90 tablet, Refills 1, Tot. Refills 0, Maintenance, 07/26/19 11:57:00 EDT, Route to Pharmacy Electronically, [facility] 43650, 158, cm, 06/16/19 15:37:00 EDT, Height, 95.45, [...] each, Refills 1, Tot. Refills 1, Maintenance, 11/28/19 7:24:00 EDT, Inhaler, Route to Pharmacy Electronically, [id number], [facility]/pharmacy #0843, 158, cm, 09/08/19 15:53:00 EDT,... Start Date: 11/28/19 Status: Ordered Protonix 40 mg oral delayed [...] Uterine prolapse(Confirmed) Active 1colo 2017 2E2017 3E2017 28342; repeat 2027 Vital Signs Most recent to oldest [Reference Range]: 1 Height 158 cm (12/12/19 9:55 AM) Social History Social History Type Response Smoking Status Former smoker; Other : quit 30 years ago; entered on: 07/24/17 Sex
--- OUTSIDE RECORDS SUMMARY | 2022-05-24 00:13 | XMS_ITS | Continuity of Care Document ---
Author Name Unknown Organization [facility] Jose Daniel Address [address] [place] [address]- Care Team Providers Care Mainframe Applications Developer Name Role Phone Mayuri PASCUAL, Eddie Morales Primary Care Physician Encounter [facility] Date(s): 01/22/22 - 01/29/22 [facility] Adult [address] [place] [address]- Encounter Diagnosis Asthma(Discharge Diagnosis) - 01/22/22 Atrial fibrillation(Discharge Diagnosis) - 01/22/22 Hypertension(Discharge Diagnosis) - 01/22/22 Takotsubo cardiomyopathy(Discharge Diagnosis) - 01/22/22 Attending Physician: Tray MCKEON, Nayeli Walker Allergies, Adverse Reactions, Alerts No Known Allergies Immunizations Given and Recorded Vaccine Date Status Refusal Reason influenza virus vaccine, inactivated 1 01/22/22 Gi kunal influenza virus vaccine, inactivated 12/20/20 Joshua rded influenza virus vaccine, inactivated 10/23/19 Joshua rded influenza virus vaccine, inactivated 2, 3 11/07/08 Given SARS-CoV-2 mRNA (gefesrb-qhor-dqpgg) vax 05/25/21 Recorded SARS-CoV-2 (COVID-19) mRNA BNT-162b2 vac 12/20/20 Recorded SARS-CoV-2 (COVID-19) mRNA BNT-162b2 vac 06/03/20 Recorded SARS-CoV-2 (COVID-19) mRNA BNT-162b2 vac 05/01/20 Recorded Influenza Virus Vaccine (oldterm) 12/24/18 Recorde d Zoster Vaccine Live 12/14/18 Recorded tetanus/diphtheria/pertussis, acel(Tdap) 07/21/18 Given pneumococcal 13-valent vaccine 07/21/18 Given pneumococcal 23-valent vaccine 4, 5 11/07/08 Given 1Result Comment: [id number] 2Early/Late Reason: Nursing Judgment 3Result Comment: sanofi pasteur [id number] 4Early/Late Reason: Nursing Judgment 5Result Comment: [id number] merck and co Medications Advair Diskus 100 mcg-50 mcg inhalation powder 1, inhalation, Inhalation, 2 times a day, rinse mouth and throat after use, # 1 pack/packet, Refills 0, Tot. Refills 0, Maintenance, 01/22/22 11:10:00 EST, Powder, Route to Pharmacy Electronically, [id number], [facility]/pharmacy #0... Start Date: 01/22/22 Status: Ordered Albuterol (Eqv-Proventil HFA) 90 mcg/inh inhalation aerosol 2 puffs, Inhalation, 4 times a day, # 20.1 each, 5 Refills, Maintenance, 10/13/21 9:29:00 EDT, [facility], 158, cm, 09/19/21 15:25:00 EDT, Height Start Date: 10/13/21 Status: Ordered bupropion extended release = 200 mg, By Mouth, Daily, 0 Refills, Maintenance, 04/22/18 8:53:19 EDT Start Date: 04/22/18 Status: Ordered digoxin 0.125 mg oral tablet 1, tablet, By Mouth, Daily, # 90 tablet, Refills 3, Tot. Refills 3, Maintenance, 11/08/21 12:38:00 EDT, Route to Pharmacy Electronically, [facility]acy #0843, 158, cm, 11/07/21 11:39:00 EDT, Height [...] 6 Refills, Maintenance, 10/15/21 10:41:00 EDT, Tablet, [facility]/pharmacy #0843, Partial fill upon patient [...] Refills 2, Maintenance, 12/31/21 13:35:00 EST[facility] 86653, 158, cm, 12/02/21 12:48:00 EDT, Height, 61, [...] Uterine prolapse Confirmed Active 1c2017 2E2017 3E2017 92578; repeat 2027 5colo 2017 Diagnosis Diagnosis Type Effective Dates Health Status Clinical Service Informant Asthma Discharge Diagnosis 01/22/22 Atrial fibrillation Discharge Diagnosis 01/22/22 Hypertension Discharge Diagnosis 01/22/22 Takotsubo cardiomyopathy Discharge Diagnosis 01/22/22 Vital Signs Most recent to oldest [Reference Range]: 1 Height 158 cm (01/22/22 10:05 AM) Weight 60.81 kg (01/22/22 10:05 AM) Oxygen Saturation [94-100 %] 100 % (01/22/22 10:05 AM) Pulse Rate [55-90 bpm] 71 bpm (01/22/22 10:05 AM) Body Mass Index [18.5-24.99 kg/m2] 24.36 kg/m2 (01/22/22 10:05 AM) Blood Pressure [90-138/55-84 mm Hg] 169/ 70mm Hg *H* (01/22/22 10:05 AM) Respiratory Rate [16-30 br/min] 16 br/mi n (01/22/22 10:05 AM) Temperature [96.8-100.4 DegF] 97.4 DegF (01/22/22 10:05 AM) Mode of Delivery (Oxygen) Room air (01/22/22 10:05 AM) Blood pressure sites Arm, left (01/22/22 10:05 AM) Temperature Route Oral (01/22/22 10:05 AM) Weight Obtained Via Standing scale (01/22/22 10:05 AM) Social History Social History Type Response Smoking Status Former smoker; Other : quit 30 years ago; entered on: 07/24/17 Sex Patient Care team information Care Team Personnel Name: Eddie Messina MD Position: S Primary Care Physician Member Role: PCP Address: Address: [address] [place] [address] [place] [address]- Care Team Related Persons Name: BRANDON CHANDRA Address: home [address] [place] [address]
--- OUTSIDE RECORDS SUMMARY | 2022-05-24 00:13 | XMS_ITS | Continuity of Care Document ---
Author Name Unknown Organization [facility] Jose Daniel Address [address] [place] [address]- Care Team Providers Care Chief Counsel Name Role Phone Eddie Messina MD Primary Care Physician [place] [facility] 10[place]08[place]19 [facility] Adult [address] [place] [address]- [facility] Attending Physician: Not on Staff, Attending MD [...] Given 1Early/Late Reason: Nursing Judgment 2Result Comment: [id number] [employer] 3Early/Late Reason: Nursing Judgment 4Result Comment: sanofi pasteur [id number] Medications albuterol 0.083% inhalation solution 3 mL [...] Gm, 0 Refills, Maintenance, 07/07/19 13:13:00 EDT, [place], [facility]/pharmacy #0843, 1 sprays Nares, Both 2 times a day, 158, cm, 06/16/19 15:37:00 EDT, Height, 95.45, kg, 01/08/18 3:57:00 EST, Dry Weight Start Date: 07/07/19 Status: Ordered gabapentin 100 mg oral capsule 100 mg, 1, capsule, By Mouth, 3 times a day, DOSAGE DECREASE, # 90 capsule, Refills 0, Tot. Refills0, Maintenance, 06/30/19 13:01:00 EDT, [facility], cm, 06/16/19 15:37:00 [...] 09/21/19 9:10:00 EDT, [facility] 158, cm, 09/08/19 15:53:00 EDT, Height, 95.45, kg, 01/08/18 3:57:00 EST, Dry Weight Start Date: 09/21/19 Stop Date: 09/15/20 Status: Ordered montelukast 10 mg oral tablet 1, tablet, By Mouth, Daily in AM, # 90 tablet, Refills 1, Tot. Refills 0, Maintenance, 07/26/19 11:57:00 EDT, Route to Pharmacy Electronically, [facility] STORE 89716, 158, cm, 06/16/19 15:37:00 EDT, Height, 95.45, [...] 15:51:00 EDT, Inhaler, Route to Pharmacy Electronically, [id number],[facility]/pharmacy #0843, 158, cm, 08/08/19 9:42:00 EDT,... [...] Active Uterine prolapse(Confirmed) Active 1c2017 2E2017 3E2017 40028; repeat 2027 5colo 2017 Social History Social History Type Response Smoking Status Former smoker; Other : quit 30 years ago; entered on: 07/24/17 Sex
--- OUTSIDE RECORDS SUMMARY | 2022-05-24 00:13 | XMS_ITS | Continuity of Care Document ---
Author Name Unknown Organization [facility] [place], [facility] Jose Daniel Address [address] [place] [address]- Care Team Providers Care Director Of Public Safety Name Role Phone Eddie Messina MD Primary Care Physician [phone] Encounter [facility] [place] Date(s): 06/14/19 - 06/21/19 [facility] [place] Adult [address] [place] [address]- [facility] Encounter Diagnosis Osteoarthritis of right hip(Discharge Diagnosis) - 06/14/19 Attending Physician: Renzo MCKEON, Mylene Manzano Referring [...] Given 1Early/Late Reason: Nursing Judgment 2Result Comment: [id number] [employer] 3Early/Late Reason: Nursing Judgment 4Result Comment: sanofi pasteur [id number] Medications albuterol 0.083% inhalation solution 3 mL [...] EST, Route to Pharmacy Electronically, [facility]/pharmacy #[id number], 158, cm, 02/04/19 11:28:00 EST, Height, 95.45, kg, 01/08/18 3:57:00 EST, Dry Weight Start Date: 03/29/19 Stop Date: 09/25/19 Status: Ordered montelukast 10 mg oral tablet See Instructions, # 90 tablet, Refills 1 Tot. Refills 1, TAKE 1 TABLET BY MOUTH EVERY MORNING, [facility]/pharmacy #[id number] Start Date: 11/29/18 Status: Ordered NEBULIZER [...] 20:05:00 EST, Inhaler, Route to Pharmacy Electronically, [id number],[facility]/pharmacy #0843, 158, cm, 04/04/19 13:57:00 EST,... Start [...] 07/12/19 15:22:00 EDT, 06/14/19 15:22:00 EDT, Tablet, [facility]/pharmacy #0843, 158, cm, 04/04/19 13:57:00 EST, Height, [...] Takotsubo cardiomyopathy(Confirmed) Active Uterine prolapse(Confirmed) Active 1c2017 2EGD 2017 3E2017 02563; repeat 2027 5c2017 Diagnosis Diagnosis Type Effective Dates Health Status Clinical Service Informant Osteoarthritis of right hip Discharge Diagnosis 06/14/19 Social History Social History Type Response Smoking Status Former smoker; Other : quit 30 years ago; entered on: 07/24/17 Sex
--- OUTSIDE RECORDS SUMMARY | 2022-05-24 00:13 | XMS_ITS | Continuity of Care Document ---
Author Name Unknown Organization [facility] Jose Daniel Address [address] [place] [address]- Care Team Providers Care Compressor Operator Name Role Phone Mayuri PASCUAL, Eddie Morales Primary Care Physician Encounter [facility] [place] [place] Date(s): 01/18/21 - 02/17/21 [facility] Adult [address] [place] [address]- Allergies, Adverse Reactions, Alerts Substance Reaction Severity [...] Reason: Nursing Judgment 2Result Comment: sanofi pasteur [id number] 3Early/Late Reason: Nursing Judgment 4Result Comment: [id number] [employer] Medications Albuterol (Eqv-ProAir HFA) 90 mcg/inh inhalation aerosol 2 puffs, Inhalation, 4 times a day, # 25.5 each, 1 Refills, [facility], 90, INHALE 2 PUFFS BY MOUTH 4 TIMES A DAY, 158, cm, 10/08/20 7:48:00 EDT, Height Start Date: 12/13/20 Status: Ordered albuterol 0.083% inhalation solution 3 mL = 2.5 mg, Inhalation, Every 4 hours, PRN for wheezing, # 25 each, 5 Refills, Maintenance, 10/20/19 15:51:00 EDT, Solution, [facility]/pharmacy #0843, 158, cm, 09/08/19 15:53:00 EDT, Height, 95.45, kg, 01/08/18 3:57:00 EST, Dry Weight Start Date: 10/20/19 Status: Ordered amLODIPine 2.5 mg oral tablet 2.5 mg, 1, tablet, By Mouth, Daily, # 30 tablet, Refills 1, Tot. Refills 1, Maintenance, 01/21/21 10:00:00 EST, Route to Pharmacy Electronically, [facility]/pharmacy #0843, Partial fill upon patient requestif the prescription is for a schedule II opioid ojse... Start Date: 01/21/21 Status: Ordered bupropion extended [...] Gm, 0 Refills, Maintenance, 07/07/19 13:13:00 EDT, [place], [facility]/pharmacy #0843, 1 sprays Nares, Both 2 times a day, 158, cm, 06/16/19 15:37:00 EDT, Height, 95.45, kg, 01/08/18 3:57:00 EST, Dry Weight Start Date: 07/07/19 Status: Ordered Flovent HFA 110 mcg/inh inhalation aerosol 2 puffs, Inhalation, 2 times a day, RINSE THROAT AFTER USE, # 36 each, 1 Refills, [facility], 158, cm, 10/08/20 7:48:00 EDT, Height Start [...] EDT, Route to Pharmacy Electronically, [facility], 158, cm, 05/28/20 9:37:00 EDT, Height Start [...] prolapse(Confirmed) Active 1colo 2017 2EGD 2017 3E2017 08677; repeat 2027 5c2017 Social History Social History Type Response Smoking Status Former smoker; Other : quit 30 years ago; entered on: 07/24/17 Sex
--- OUTSIDE RECORDS SUMMARY | 2022-05-24 00:13 | XMS_ITS | Continuity of Care Document ---
Author Name Unknown Organization [facility] Jose Daniel Address [address] [place] [address]- Care Team Providers Care Oracle Database Manager Name Role Phone Mayuri PASCUAL, Eddie Morales Primary Care Physician Encounter [facility] [place] Date(s): 10/15/21 - 11/14/21 [facility] Adult [address] [place] [address]- Allergies, Adverse Reactions, Alerts No Known Allergies [...] Reason: Nursing Judgment 2Result Comment: sanofi pasteur [id number] 3Early/Late Reason: Nursing Judgment 4Result Comment: [id number] [employer]ck [employer] Medications Albuterol (Eqv-Proventil HFA) 90 mcg/inh inhalation aerosol 2 puffs, Inhalation, 4 times a day, # 20.1 each, 5 Refills, Maintenance, 10/13/21 9:29:00 EDT, [facility], 158, cm, 09/19/21 15:25:00 EDT, Height Start Date: 10/13/21 Status: Ordered bupropion extended release = 200 mg, By Mouth, Daily, 0 Refills, Maintenance, 04/22/18 8:53:19 EDT Start Date: 04/22/18 Status: Ordered digoxin 0.125 mg oral tablet 1, tablet, By Mouth, Daily, # 90 tablet, Refills 3, Tot. Refills 3, Maintenance, 11/08/21 12:38:00 EDT, Route to Pharmacy Electronically, [facility]/pharmacy #0843, 158, cm, 11/07/21 11:39:00 EDT, Height Start Date: 11/08/21 Stop Date: 11/03/22 Status: Ordered dilTIAZem 360 mg/24 hours oral capsule, extended release 1 capsule = 360 mg, By Mouth, Daily, # 30 capsule, 2 Refills, Maintenance, 10/09/21 16:35:00 EDT, [facility]/pharmacy #0843, dose increase, 158, cm, 09/19/21 15:25:00 [...] 6 Refills, Maintenance, 10/15/21 10:41:00 EDT, Tablet, [facility]/pharmacy #0843, Partial fill upon patient request if the prescription is for a schedule II opioid drug., 158, cm, 09/19/21 15:25:00 EDT,... Start Date: 10/15/21 Status: Ordered Flovent HFA 110 mcg/inh inhalation aerosol 2 puffs, Inhalation, 2 times a day, RINSE THROAT AFTER USE, # 3 each, 0 Refills, Maintenance, 10/09/21 12:29:00 EDT, [facility]/pharmacy #0843, 158, cm, 09/19/21 15:25:00 EDT, Height [...] tablet, Refills 1, Route to Pharmacy Electronically, [facility], 158, cm, 07/30/21 8:48:00 EDT, Height Start [...] Uterine prolapse Confirmed Active 1c2017 2E2017 3E2017 03338; repeat 2027 5c2017 Social History Social History Type Response Smoking Status Former smoker; Other : quit 30 years ago; entered on: 07/24/17 Sex Patient Care team information Personnel Name: Mayuri PASCUAL, Eddie Morales Address: Address: [address] [place] [id number]
--- OUTSIDE RECORDS SUMMARY | 2022-05-24 00:13 | XMS_ITS | Continuity of Care Document ---
Author Name Unknown Organization [facility] Jose Daniel Address [address] [place] [address]- Care Team Providers Care Rn Oncology Name Role Phone Mayuri PASCUAL, Edide Morales Primary Care Physician Encounter [facility] [place] Date(s): 07/16/20 - 08/15/20 [facility] Adult [address] [place] [address]- Allergies, Adverse Reactions, Alerts Substance Reaction Severity Status NKA Active Immunizations Given and Recorded Vaccine Date Status Refusal Reason Influenza Virus Vaccine (oldterm) 12/24/18 Recorde d Zoster Vaccine Live 12/14/18 Recorded tetanus/diphtheria/pertussis, acel(Tdap) 07/21/18 Given pneumococcal 13-valent vaccine 07/21/18 Given pneumococcal 23-valent vaccine 1, 2 11/07/08 Given influenza virus vaccine, inactivated 3, 4 11/07/08 Given 1Early/Late Reason: Nursing Judgment 2Result Comment: [id number] [employer]ck [employer] 3Early/Late Reason: Nursing Judgment 4Result Comment: sanofi pasteur [id number] Medications albuterol 0.083% inhalation solution 3 mL [...] Gm, 0 Refills, Maintenance, 07/07/19 13:13:00 EDT, [place], [facility]/pharmacy #0843, 1 sprays Nares, Both 2 times a day, 158, cm, 06/16/19 15:37:00 EDT, Height, 95.45, kg, 01/08/18 3:57:00 EST, Dry Weight Start Date: 07/07/19 Status: Ordered Flovent HFA 110 mcg/inh inhalation aerosol 2 puffs, Inhalation, 2 times a day, /THROAT AFTER USE., # 36 Unknown, 1 Refills, Maintenance, 06/21/20 15:48:00 EDT, [facility]/pharmacy #0843, 158, cm, 05/28/20 9:37:00 EDT, [...] 09/21/19 9:10:00 EDT, Route to Pharmacy Electronically, [facility]/pharmacy #0843, 158, cm, 09/08/19 15:53:00 EDT, Height, 95.45, kg, 01/08/18 3:57:00 EST, Dry Weight Start Date: 09/21/19 Stop Date: 09/15/20 Status: Ordered montelukast 10 mg oral tablet 1, tablet, By Mouth, Daily in AM, # 90 tablet, Refills 1, Tot. Refills 0, Maintenance, 07/30/20 11:29:00 EDT, Route to Pharmacy Electronically, [facility], 158, cm, 05/28/20 9:37:00 EDT, Height Start [...] 14:19:00 EDT, Inhaler, Route to Pharmacy Electronically, [id number],[facility]/pharmacy #0843, 158, cm, 05/28/20 9:37:00 EDT,... [...] prolapse(Confirmed) Active 1colo 2017 2EGD 2017 3E2017 70073; repeat 2027 5c2017 Social History Social History Type Response Smoking Status Former smoker; Other : quit 30 years ago; entered on: 07/24/17 Sex
--- OUTSIDE RECORDS SUMMARY | 2022-05-24 00:13 | XMS_ITS | Continuity of Care Document ---
Author Name Unknown Organization [facility] Jose Daniel Address [address] [place] [address]- Care Team Providers Care Lead Web Application Developer Name Role Phone Mayuri PASCUAL, Eddie Morales Primary Care Physician Encounter [facility] [place] Date(s): 01/23/21 - 01/30/21 [facility] Adult [address] [place] [address]- Encounter Diagnosis Suspected COVID-19 virus infection(Discharge Diagnosis) - 01/23/21 Attending Physician: Jarett Valdez MD Referring Physician: Eddie Messina MD Allergies, [...] Reason: Nursing Judgment 2Result Comment: sanofi pasteur [id number] 3Early/Late Reason: Nursing Judgment 4Result Comment: [id number] [id number] merck [employer] Medications Albuterol (Eqv-ProAir HFA) 90 mcg/inh inhalation aerosol 2 puffs, Inhalation, 4 times a day, # 25.5 each, 1 Refills, [facility], 90, INHALE 2 PUFFS BY MOUTH 4 TIMES A DAY, 158, cm, 10/08/20 7:48:00 EDT, Height Start Date: 12/13/20 Status: Ordered albuterol 0.083% inhalation solution 3 mL = 2.5 mg, Inhalation, Every 4 hours, PRN for wheezing, # 25 each, 5 Refills, Maintenance, 10/20/19 15:51:00 EDT, Solution, [facility]/pharmacy #0843, 158, cm, 09/08/19 15:53:00 EDT, Height, 95.45, kg, 01/08/18 3:57:00 EST, Dry Weight Start Date: 10/20/19 Status: Ordered amLODIPine 2.5 mg oral tablet 2.5 mg, 1, tablet, By Mouth, Daily, # 30 tablet, Refills 1, Tot. Refills 1, Maintenance, 01/21/21 10:00:00 EST, Route to Pharmacy Electronically, [facility]/pharmacy #0843, Partial fill upon patient requestif [...] Gm, 0 Refills, Maintenance, 07/07/19 13:13:00 EDT, [place], [facility]/pharmacy #0843, 1 sprays Nares, Both 2 times a day, 158, cm, 06/16/19 15:37:00 EDT, Height, 95.45, kg, 01/08/18 3:57:00 EST, Dry Weight Start Date: 07/07/19 Status: Ordered Flovent HFA 110 mcg/inh inhalation aerosol 2 puffs, Inhalation, 2 times a day, RINSE THROAT AFTER USE, # 36 each, 1 Refills, [facility], 158, cm, 10/08/20 7:48:00 EDT, Height Start [...] 07/30/20 11:29:00 EDT, Route to Pharmacy Electronically, [facility], 158, cm, 05/28/20 9:37:00 EDT, Height Start [...] Active 1colo 2017 2EGD 2017 3EGD 2017 89700; repeat 2027 5c2017 Diagnosis Diagnosis Type Effective Dates Health Status Cl inical Service Informant Suspected COVID-19 virus infection Discharge Diagnosis 01/23/21 Vital Signs Most recent to oldest [Reference Range]: 1 Height 158 cm (01/23/21 6:49 AM) Social History Social History Type Response Smoking Status Former smoker; Other : quit 30 years ago; entered on: 07/24/17 Sex
--- OUTSIDE RECORDS SUMMARY | 2022-05-24 00:13 | XMS_ITS | Continuity of Care Document ---
Author Name Unknown Organization [facility] Jose Daniel Address [address] [place] [address]- Care Team Providers Care Drug Room Operator Name Role Phone Mayuri PASCUAL, Eddie Morales Primary Care Physician [phone] Encounter [facility] [place] Date(s): 09/24/21 - 10/24/21 [facility] Adult [address] [place] [address]- Allergies, Adverse Reactions, Alerts No Known Allergies [...] Reason: Nursing Judgment 2Result Comment: sanofi pasteur [id number] 3Early/Late Reason: Nursing Judgment 4Result Comment: [id number] merck and co Medications Albuterol (Eqv-Proventil HFA) 90 mcg/inh inhalation aerosol 2 puffs, Inhalation, 4 times a day, # 20.1 each, 5 Refills, Maintenance, 10/13/21 9:29:00 EDT, [facility], 158, cm, 09/19/21 15:25:00 EDT, Height Start Date: 10/13/21 Status: Ordered bupropion extended release = 200 mg, By Mouth, Daily, 0 Refills, Maintenance, 04/22/18 8:53:19 EDT Start Date: 04/22/18 Status: Ordered digoxin 0.125 mg oral tablet 125 mcg, 1, tablet, By Mouth, Daily, # 14 tablet, Refills 0, Tot. Refills 0, Maintenance, 10/09/21 12:26:00 EDT, Route to Pharmacy Electronically, [facility]/pharmacy #0843, Partial fill upon patient request if the prescription is for a schedule II opioid dr... Start Date: 10/09/21 Status: Ordered dilTIAZem 360 mg/24 hours oral capsule, extended release 1 capsule = 360 mg, By Mouth, Daily, # 30 capsule, 2 Refills, Maintenance, 10/09/21 16:35:00 EDT, [facility]/pharmacy #0843, dose increase, 158, [...] 6 Refills, Maintenance, 10/15/21 10:41:00 EDT, Tablet, [facility]/pharmacy #0843, Partial fill upon patient request if the prescription is for a schedule II opioid drug., 158, cm, 09/19/21 15:25:00 EDT,... Start Date: 10/15/21 Status: Ordered Flovent HFA 110 mcg/inh inhalation aerosol 2 puffs, Inhalation, 2 times a day, RINSE THROAT AFTER USE, # 3 each, 0 Refills, Maintenance, 10/09/21 12:29:00 EDT, [facility]/pharmacy #0843, 158, cm, 09/19/21 [...] 1, Route to Pharmacy Electronically, [facility], 158, cm, 07/30/21 8:48:00 EDT, Height Start [...] Uterine prolapse(Confirmed) Active 1colo 2017 2E2017 3E2017 47441; repeat 2027 5c2017 Social History Social History Type Response Smoking Status Former smoker; Other : quit 30 years ago; entered on: 07/24/17 Sex Care Team Personnel Name: Mayuri PASCUAL, Eddie Morales Address: [address] [place] [phone]
--- OUTSIDE RECORDS SUMMARY | 2022-05-24 00:13 | XMS_ITS | Continuity of Care Document ---
Author Name Unknown Organization [facility] Mitchel Jose Daniel Address [address] [place] [address]- Care Team Providers Care Commercial Announcer Name Role Phone Mayuri PASCUAL, Eddie Morales Primary Care Physician [phone] [place] [facility] [place]22 [facility] Adult [address] [place] [address]- Encounter Diagnosis Asthma(Discharge Diagnosis) - 02/07/22 Atrial fibrillation(Discharge Diagnosis) - 02/07/22 Left shoulder pain(Discharge Diagnosis) - 02/07/22 Osteopenia(Discharge Diagnosis) - 02/07/22 Hypercholesterolemia(Discharge Diagnosis) - 02/07/22 Cerumen impaction(Discharge Diagnosis) - 02/07/22 Attending Physician: Nayeli Feliz NP Referring Physician: Eddie Messina MD Allergies, Adverse Reactions, Alerts No Known Allergies Immunizations Given and Recorded Vaccine Date Status Refusal Reason pneumococcal 20-valent conjugate vaccine 1 01/26/22 Recorded [id number] bivalent booster vax 01/26/22 Recorded influenza virus vaccine, inactivated 2 01/22/22 Gi kunal influenza virus vaccine, inactivated 12/20/20 Joshua rded influenza virus vaccine, inactivated 10/23/19 Joshua rded influenza virus vaccine, inactivated 3, 4 11/07/08 Given SARS-CoV-2 mRNA (auqqikf-[id number]-vrfce) vax 05/25/21 Recorded SARS-CoV-2 (COVID-19) mRNA BNT-162b2 vac 12/20/20 Recorded SARS-CoV-2 (COVID-19) mRNA BNT-162b2 vac 06/03/20 Recorded SARS-CoV-2 (COVID-19) mRNA BNT-162b2 vac 05/01/20 Recorded Influenza Virus Vaccine (oldterm) 12/24/18 Recorde d Zoster Vaccine Live 12/14/18 Recorded tetanus/diphtheria/pertussis, acel(Tdap) 07/21/18 Given pneumococcal 13-valent vaccine 07/21/18 Given pneumococcal 23-valent vaccine 5, 6 11/07/08 Given 1Result Comment: Record received from [facility] 2Result Comment: [facility]-[id number] 3Early/Late Reason: Nursing Judgment 4Result Comment: sanofi pasteur [id number] 5Early/Late Reason: Nursing Judgment 6Result Comment: [id number] [employer] Medications Albuterol (Eqv-Proventil HFA) 90 mcg/inh inhalation aerosol 2 puffs, Inhalation, 4 times a day, # 20.1 each, 5 Refills, Maintenance, 10/13/21 9:29:00 EDT, [facility] STORE 87808, 158, cm, 09/19/21 15:25:00 EDT, Height Start Date: 10/13/21 Status: Ordered bupropion extended release = 200 mg, By Mouth, Daily, 0 Refills, Maintenance, 04/22/18 8:53:19 EDT Start Date: 04/22/18 Status: Ordered digoxin 0.125 mg oral tablet 1, tablet, By Mouth, Daily, # 90 tablet, Refills 3, Tot. Refills 3, Maintenance, 11/08/21 12:38:00 EDT, Route to Pharmacy Electronically, [facility]/pharmacy #0843, 158, cm, 11/07/21 11:39:00 EDT, Height Start Date: 11/08/21 Stop Date: 11/03/22 Status: Ordered DilTIAZem (Eqv-Cardizem CD) 360 mg/24 hours oral capsule, extended release 1 capsule, By Mouth, Daily, # 60 capsule, 2 Refills, Maintenance, 01/23/22 13:54:00 EST, [facility]/pharmacy #0843, 158, cm, 01/22/22 10:05:00 EST, Height, 61, kg, 12/02/21 11:51:00 EDT, Dry Weight Start Date: 01/23/22 Status: Ordered Eliquis 5 mg oral tablet 1 tablet, By Mouth, 2 times a day, # 60 tablet, 6 Refills, Maintenance, 02/13/22 15:42:00 EST, [facility], 158, cm, 02/07/22 9:00:00 EST, Height, 61, [...] tablet, Refills 2, Maintenance, 12/31/21 13:35:00 EST, [facility], 158, cm, 12/02/21 12:48:00 EDT, Height, 61, [...] each, 0 Refills, Maintenance, 02/14/22 16:14:00 EST, [facility] 85743, 30, INHALE 1 INHALATION 2 TIMES A [...] Active 1colo 2017 2EGD 2017 3EGD 2017 76557; repeat 2027 5colo 2017 Diagnosis Diagnosis Type Effective Dates Health Status Clinical Service Informant Asthma Discharge Diagnosis 02/07/22 Atrial fibrillation Discharge Diagnosis 02/07/22 Left shoulder pain Discharge Diagnosis 02/07/22 Osteopenia Discharge Diagnosis 02/07/22 Hypercholesterolemia Discharge Diagnosis 02/07/22 Cerumen impaction Discharge Diagnosis 02/07/22 Vital Signs Most recent to oldest [Reference Range]: 1 Height 158 cm (02/07/22 9:00 AM) Weight 61.3 kg (02/07/22 9:00 AM) Oxygen Saturation [94-100 %] 97 % (02/07/22 9:00 AM) Pulse Rate [55-90 bpm] 62 bpm (02/07/22 9:00 AM) Body Mass Index [18.5-24.99 kg/m2] 24.56 kg/m2 (02/07/22 9:00 AM) Blood Pressure [90-138/55-84 mm Hg] 138/ 76mm Hg (02/07/22 9:00 AM) Respiratory Rate [16-30 br/min] 16 br/mi n (02/07/22 9:00 AM) Temperature [96.8-100.4 DegF] 97.6 DegF (02/07/22 9:00 AM) Mode of Delivery (Oxygen) Room air (02/07/22 9:00 AM) Blood pressure sites Arm, right (02/07/22 9:00 AM) Temperature Route Oral (02/07/22 9:00 AM) Weight Obtained Via Patient/family state d (02/07/22 9:00 AM) Social History Social History Type Response Smoking Status Former smoker; Other : quit 30 years ago; entered on: 07/24/17 Sex Note * Josefina Ashby: VERIFY, PERFORM, SIGN Event Display: Patient Education/Instruction Authored Date: [id number] [facility] *BMP So Mitchel Pizano Clinical Summary Name DUNIA CHANDRA Age 71 Years 1950 PCP Mayuri PASCUAL, Eddie Morales [id number] Visit Date 02/07/2022 08:58:00 Additional Instructions: Scheduled Appointments?? Future Appointments ?*[facility]??Cardiology1 ?[address]??[place],??[place],??[address] ?Phone:??--?Fax:??-- ?Appt. Date:??02/27/2022?12:45 PM ?Scheduled Provider:??Austin PASCUAL , Enrique King ?[facility]??RAD ?[address]??[place],??[place],??[address] ?Phone:??[phone]?Fax:??-- ?Appt. Date:??04/14/2022?10:00 AM ?Scheduled Provider:??[facility] BD Rm 1 Follow-Up Instructions ?? Diagnosis Medications: Please continue your medications until treatment is completed or stopped by your provider. Discuss any questions related to medications with your provider. Medications to Continue with No Changes These medications were not printed or sent to your pharmacy Albuterol (Albuterol (Eqv-Proventil HFA) 90 mcg/inh inhalation aerosol) 2 puff(s) Inhalation 4 times a day. Refills: 5. Next Dose: apixaban (Eliquis 5 mg oral tablet) 1 tab(s) Oral twice a day. Refills: 6. Next Dose: BuPROpion (bupropion extended release) 200 Milligram Oral Daily. Next Dose: Digoxin (digoxin 0.125 mg oral tablet) 1 tab(s) Oral Daily for 90 Days. Refills: 3. Next Dose: Diltiazem (DilTIAZem (Eqv-Cardizem CD) 360 mg/24 hours oral capsule, extended release) 1 capsule Oral Daily. Refills: 2. Next Dose: Durable Medical Equipment (NEBULIZER MACHINE, TUBING, FACE MASK) DX: J40. Refills: 0. Next Dose: Fluticasone-Salmeterol (Advair Diskus 100 mcg-50 mcg inhalation powder) 1 inhalation Inhalation twice a day. rinse mouth and throat after use. Refills: 0. Next Dose: Lamotrigine (LaMICtal 200 mg oral tablet) 1 tab(s) Oral Daily. Next Dose: Montelukast (montelukast 10 mg oral tablet) 1 tab(s) Oral Daily in the morning. Refills: 2. Next Dose: Oxybutynin (oxybutynin 10 mg/24 hr oral tablet, extended release) 1 tab(s) Oral Daily. Next Dose: Pantoprazole (pantoprazole 40 mg oral delayed release tablet) 1 tab(s) Oral Daily. Refills: 3. Next Dose: Allergy Info:?? NKA Medications Given This Visit Future Orders ?Shoulder Min 2 Views Left? Order Date:02/07/22?- Complete on or after?02/07/22 Vital Signs Height 158 cm Weight 61.3 kg BMI 24.56 kg/m2 Blood Pressure 138 mm Hg/76 mm Hg Temperature 97.6 DegF Pulse Rate 62 bpm Respiratory Rate 16 br/min 02 Sat Mode of Delivery 97 %/Room air You can now view a summary of your hospital visit from the comfort of your home through a free online portal called [employer]. [employer] is a website that allows you to securely view your medical information including discharge summary, medications and follow-up visits. ??You can alsosend a secure electronic message to your doctor???s office to request appointments, renew medications or just ask a question. You can enroll at [email or web address] or register during your next office visit. Disclaimer:?? The information provided is of a general nature and is intended to be used in conjunction with the recommendations and advice of your health care practitioner. ??Every effort has been made to ensure that the information provided is accurate and complete at the time it is provided to you however, as your needs change, or, as new ??information becomes available, different or additional instructions may be required. If you have questions, please consult with your primary care provider or pharmacist, as appropriate. ??This information is not intended to serve as substitution for assessment and evaluation by a qualified health care provider. If you do not have a primary care provider, you may find a [facility] provider by calling [facility] [employer] at [phone]. For information about the plan of care including goals and instructions for your diagnosis, please see the patient education orders section of this document. Patient Education Materials?? The content of this educational material or handout may have been modified, supplemented, or adapted from its original content and format to support your individualized medical care. Patient Care team information Care Team Personnel Name: Mayuri PASCUAL, Eddie Morales Position: [facility] Primary Care Physician Member Role: PCP Address: Address: [address] [place] [address]- Care Team Related Persons Name: BRANDON CHANDRA Address: home [address] [place] [address]
--- OUTSIDE RECORDS SUMMARY | 2022-05-24 00:13 | XMS_ITS | Continuity of Care Document ---
Author Name Unknown Organization [facility] Address [address] [place] [address]- Care Team Providers Care Dye House Wheel Operator Name Role Phone Eddie Messina MD Primary Care Physician [place] [facility] [id number] Date(s): 02/11/21 - 09/05/[address] [address]- Discharge Disposition: A-D/C Home Attending Physician: Not on Staff, Attending MD Admitting Physician: Not on Staff, Admitting MD Referring Physician: Not on Staff, Referring [...] Reason: Nursing Judgment 2Result Comment: sanofi pasteur [id number] 3Early/Late Reason: Nursing Judgment 4Result Comment: [id number] [employer]ck [employer] Medications Albuterol (Eqv-ProAir HFA) 90 mcg/inh inhalation aerosol 2 puffs, Inhalation, 4 times a day, # 3 each, 1 Refills, Maintenance, 05/15/21 9:52:00 EDT, [facility]/pharmacy #0843, 2 puffs Inhalation 4 times a day, 158, cm, 02/26/21 11:08:00 EST, Height Start Date: 05/15/21 Status: Ordered amLODIPine 2.5 mg oral tablet 1 tablet, By Mouth, Daily, # 90 tablet, 1 Refills, [facility] STORE 22997, 158, cm, 07/30/21 8:48:00 EDT, Height Start [...] Gm, 0 Refills, Maintenance, 07/07/19 13:13:00 EDT, [place], [facility]/pharmacy #0843, 1 sprays Nares, Both 2 [...] tablet, Refills 1, Route to Pharmacy Electronically, [email or web address]0660, 158, cm, 07/30/21 8:48:00 EDT, Height Start [...] Active 1colo 2017 2EGD 2017 3EGD 2017 50464; repeat 2027 5c2017 Social History Social History Type Response Smoking Status Former smoker; Other : quit 30 years ago; entered on: 07/24/17 Sex
--- OUTSIDE RECORDS SUMMARY | 2022-05-24 00:13 | XMS_ITS | Continuity of Care Document ---
Author Name Unknown Organization [facility] Address [address] [place] [address]- Care Team Providers Care President And Ceo Name Role Phone Eddie Messina MD Primary Care Physician En[place] [facility] [place] 11/19/21 - 12/19/21 [facility] [address] [place] [address]- Allergies, Adverse Reactions, Alerts No Known Allergies [...] Reason: Nursing Judgment 2Result Comment: sanofi pasteur [id number] 3Early/Late Reason: Nursing Judgment 4Result Comment: [id number] [employer]ck [employer] Medications Albuterol (Eqv-Proventil HFA) 90 mcg/inh inhalation aerosol 2 puffs, Inhalation, 4 times a day, # 20.1 each, 5 Refills, Maintenance, 10/13/21 9:29:00 EDT, [facility], 158, cm, 09/19/21 15:25:00 EDT, Height Start Date: 10/13/21 Status: Ordered bupropion extended release = 200 mg, By Mouth, Daily, 0 Refills, Maintenance, 04/22/18 8:53:19 EDT Start Date: 04/22/18 Status: Ordered digoxin 0.125 mg oral tablet 1, tablet, By Mouth, Daily, # 90 tablet, Refills 3, Tot. Refills 3, Maintenance, 11/08/21 12:38:00 EDT, Route to Pharmacy Electronically, [facility]/pharmacy #0843, 158, cm, 11/07/21 11:39:00 EDT, Height Start Date: 11/08/21 Stop Date: 11/03/22 Status: Ordered DilTIAZem (Eqv-Cardizem CD) 360 mg/24 hours oral capsule, extended release 1 capsule, By Mouth, Daily, # 60 capsule, 2 Refills, Maintenance, 11/27/21 9:57:00 EDT, [facility], 158, cm, 11/07/21 11:39:00 EDT, Height Start [...] 6 Refills, Maintenance, 10/15/21 10:41:00 EDT, Tablet, [facility]/pharmacy #0843, Partial fill upon patient request if the prescription is for a schedule II opioid drug., 158, cm, 09/19/21 15:25:00 EDT,... Start Date: 10/15/21 Status: Ordered Flovent HFA 110 mcg/inh inhalation aerosol 2 puffs, Inhalation, 2 times a day, RINSE THROAT AFTER USE, # 3 each, 0 Refills, Maintenance, 10/09/21 12:29:00 EDT, [facility]/pharmacy #0843, 158, cm, 09/19/21 15:25:00 [...] tablet, Refills 1, Route to Pharmacy Electronically, [facility] STORE 05004, 158, cm, 07/30/21 8:48:00 EDT, Height Start [...] Active 1colo 2017 2EGD 2017 3EGD 2017 14706; repeat 2027 5c2017 Social History Social History Type Response Smoking Status Former smoker; Other : quit 30 years ago; entered on: 07/24/17 Sex Patient Care team information Care Team Personnel Name: Eddie Messina MD Position: [facility] Primary Care Physician Member Role: PCP Address: Address: [address] [place] [address]- Care Team Related Persons Name: BRNADON CHANDRA Address: home [address] [place] [address]
--- OUTSIDE RECORDS SUMMARY | 2022-05-24 00:13 | XMS_ITS | Continuity of Care Document ---
Author Name Unknown Organization [facility] Jose Daniel lt Address [address] [place] [address]- Care Team Providers Care Interior Paneler Name Role Phone Eddie Messina MD Primary Care Physician En[place] [facility] [place] Date(s): 05/17/19 - 07/14/19 [facility] Adult [address] [place] [address]- [facility] Attending Physician: Mylene Muller NP Referring Physician: [...] Given 1Early/Late Reason: Nursing Judgment 2Result Comment: [id number] [employer]ck [employer] co 3Early/Late Reason: Nursing Judgment 4Result Comment: sanofi pasteur [id number] Medications albuterol 0.083% inhalation solution 3 mL [...] Gm, 0 Refills, Maintenance, 07/07/19 13:13:00 EDT, [place], [facility]/pharmacy #0843, 1 sprays Nares, Both 2 times a day, 158, cm, 06/16/19 15:37:00 EDT, Height, 95.45, kg, 01/08/18 3:57:00 EST, Dry Weight Start Date: 07/07/19 Status: Ordered gabapentin 100 mg oral capsule 100 mg, 1, capsule, By Mouth, 3 times a day, DOSAGE DECREASE, # 90 capsule, Refills 0, Tot. Refills0, Maintenance, 06/30/19 13:01:00 EDT, Route to Pharmacy Electronically, [facility]/pharmacy #0843, 158, cm, 06/16/19 15:37:00 EDT, Height, [...] 03/29/19 9:52:00 EST, Route to Pharmacy Electronically, [facility]/pharmacy #0843, 158, cm, 02/04/19 11:28:00 EST, Height, 95.45, kg, 01/08/18 3:57:00 EST, Dry Weight Start Date: 03/29/19 Stop Date: 09/25/19 Status: Ordered montelukast 10 mg oral tablet See Instructions, # 90 tablet, Refills 1 Tot. Refills 1, TAKE 1 TABLET BY MOUTH EVERY MORNING, [facility]/pharmacy #0843 Start Date: 11/29/18 Status: Ordered NEBULIZER [...] 20:05:00 EST, Inhaler, Route to Pharmacy Electronically, [id number],[facility]/pharmacy #0843, 158, cm, 04/04/19 13:57:00 EST,... Start [...] Active 1colo 2017 2EGD 2017 3EGD 2017 [address]4020; repeat 2027 5c2017 Social History Social History Type Response Smoking Status Former smoker; Other : quit 30 years ago; entered on: 07/24/17 Sex
--- OUTSIDE RECORDS SUMMARY | 2022-05-24 00:13 | XMS_ITS | Continuity of Care Document ---
Author Name Unknown Organization [facility]eline Jose Daniel lt Address [address] [place] [address]- Care Team Providers Care Scrap Hoist Operator Name Role Phone Mayuri PASCUAL, Eddie Morales Primary Care Physician En[place] [facility] [place](s): 04/10/22 - 05/10/22 [facility] Adult [address] [place] [address]- Allergies, Adverse Reactions, Alerts No Known Allergies Immunizations Given and Recorded Vaccine Date Status Refusal Reason pneumococcal 20-valent conjugate vaccine 1 01/26/22 Recorded [id number] bivalent booster vax 01/26/22 Recorded influenza virus vaccine, inactivated 2 01/22/22 Gi kunal influenza virus vaccine, inactivated 12/20/20 Joshua rded influenza virus vaccine, inactivated 10/23/19 Joshua rded influenza virus vaccine, inactivated 3, 4 11/07/08 Given SARS-CoV-2 mRNA ([id number]) vax 05/25/21 Recorded SARS-CoV-2 (COVID-19) mRNA BNT-162b2 vac 12/20/20 Recorded SARS-CoV-2 (COVID-19) mRNA BNT-162b2 vac 06/03/20 Recorded SARS-CoV-2 (COVID-19) mRNA BNT-162b2 vac 05/01/20 Recorded Influenza Virus Vaccine (oldterm) 12/24/18 Recorde d Zoster Vaccine Live 12/14/18 Recorded tetanus/diphtheria/pertussis, acel(Tdap) 07/21/18 Given pneumococcal 13-valent vaccine 07/21/18 Given pneumococcal 23-valent vaccine 5, 6 11/07/08 Given 1Result Comment: Record received from [facility] Pharmacy 2Result Comment: [facility]-[id number] 3Early/Late Reason: Nursing Judgment 4Result Comment: sanofi pasteur [id number] 5Early/Late Reason: Nursing Judgment 6Result Comment: [id number] [employer]ck [employer] co Medications Albuterol (Eqv-Proventil HFA) 90 mcg/inh inhalation aerosol 2 puffs, Inhalation, 4 times a day, # 20.1 each, 5 Refills, Maintenance, 10/13/21 9:29:00 EDT, [facility] STORE 05873, 158, cm, 09/19/21 15:25:00 EDT, Height Start Date: 10/13/21 Status: Ordered bupropion extended release = 200 mg, By Mouth, Daily, 0 Refills, Maintenance, 04/22/18 8:53:19 EDT Start Date: 04/22/18 Status: Ordered digoxin 0.125 mg oral tablet 1, tablet, By Mouth, Daily, # 90 tablet, Refills 3, Tot. Refills 3, Maintenance, 11/08/21 12:38:00 EDT, Route to Pharmacy Electronically, [facility]/pharmacy #0843, 158, cm, 11/07/21 11:39:00 EDT, Height Start Date: 11/08/21 Stop Date: 11/03/22 Status: Ordered DilTIAZem (Eqv-Cardizem CD) 360 mg/24 hours oral capsule, extended release 1 capsule, By Mouth, Daily, # 60 capsule, 2 Refills, Maintenance, 01/23/22 13:54:00 EST, [facility]/pharmacy #0843, 158, cm, 01/22/22 10:05:00 EST, Height, 61, kg, 12/02/21 11:51:00 EDT, Dry Weight Start Date: 01/23/22 Status: Ordered Eliquis 5 mg oral tablet 1 tablet, By Mouth, 2 times a day, # 60 tablet, 6 Refills, Maintenance, 02/13/22 15:42:00 EST, [facility] STORE 54752, 158, cm, 02/07/22 9:00:00 EST, Height, 61, kg, 12/02/21 11:51:00 EDT, Dry Weight Start Date: 02/13/22 Status: Ordered Flonase 50 mcg/inh nasal spray 1 sprays, Nares, Both, 2 times a day, # 16 Gm, 11 Refills, Maintenance, 04/25/22 13:28:00 EDT, [place], [facility]/pharmacy #0843, Partial fill upon patient [...] tablet, Refills 2, Maintenance, 12/31/21 13:35:00 EST[facility] STORE 63072, 158, cm, 12/02/21 12:48:00 EDT, Height, 61, [...] Active 1colo 2017 2EGD 2017 3EGD 2017 87999; repeat 2027 5colo 2017 Social History Social History Type Response Smoking Status Former smoker; Other : quit 30 years ago; entered on: 07/24/17 Sex Patient Care team information Care Team Personnel Name: Mayuri PASCUAL, Eddie Morales Position: [facility] Primary Care Physician Member Role: PCP Address: Address: [address] [place] [address]- Care Team Related Persons Name: BRANDON CHANDRA Address: home [address] [place] [address]
--- OUTSIDE RECORDS SUMMARY | 2022-05-24 00:13 | XMS_ITS | Continuity of Care Document ---
Author Name Unknown Organization [facility] Address [address] [place] [address]- Care Team Providers Care Art Historian Name Role Phone Mayuri PASCUAL, Eddie Morales Primary Care Physician [place] [facility] [place] 02/07/21 [facility] [address] [place] [address]- Attending Physician: Admtr, Ar8 Admitting Physician: Admtr, Ar8 Referring Physician: Admtr, [...] Reason: Nursing Judgment 2Result Comment: sanofi pasteur [id number] 3Early/Late Reason: Nursing Judgment 4Result Comment: [id number] [id number] [employer] Medications Albuterol (Eqv-ProAir HFA) 90 mcg/inh inhalation aerosol 2 puffs, Inhalation, 4 times a day, # 25.5 each, 1 Refills, [facility], 90, INHALE 2 PUFFS BY MOUTH 4 TIMES A DAY, 158, cm, 10/08/20 7:48:00 EDT, Height Start Date: 12/13/20 Status: Ordered albuterol 0.083% inhalation solution 3 mL = 2.5 mg, Inhalation, Every 4 hours, PRN for wheezing, # 25 each, 5 Refills, Maintenance, 10/20/19 15:51:00 EDT, Solution, [facility]/pharmacy #0843, 158, cm, 09/08/19 15:53:00 EDT, Height, 95.45, kg, 01/08/18 3:57:00 EST, Dry Weight Start Date: 10/20/19 Status: Ordered amLODIPine 2.5 mg oral tablet 2.5 mg, 1, tablet, By Mouth, Daily, # 30 tablet, Refills 1, Tot. Refills 1, Maintenance, 01/21/21 10:00:00 EST, Route to Pharmacy Electronically, [facility]/pharmacy #0843, Partial fill upon patient requestif the [...] Gm, 0 Refills, Maintenance, 07/07/19 13:13:00 EDT, [place], 1 sprays Nares, Both 2 times a day, 158, cm, 06/16/19 15:37:00 EDT, Height, 95.45, kg, 01/08/18 3:57:00 EST, Dry Weight Start Date: 07/07/19 Status: Ordered Flovent HFA 110 mcg/inh inhalation aerosol 2 puffs, Inhalation, 2 times a day, RINSE THROAT AFTER USE, # 36 each, 1 Refills, [facility] ST[facility] 89215, 158, cm, 10/08/20 7:48:00 EDT, Height Start [...] EDT, Route to Pharmacy Electronically, [facility], 158, cm, 05/28/20 9:37:00 EDT, Height Start [...] Active 1colo 2017 2EGD 2017 3EGD 2017 60141; repeat 2027 5c2017 Social History Social History Type Response Smoking Status Former smoker; Other : quit 30 years ago; entered on: 07/24/17 Sex
--- OUTSIDE RECORDS SUMMARY | 2022-05-24 00:13 | XMS_ITS | Continuity of Care Document ---
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 Role Phone Eddie Messina MD Primary Care Physician Encounter [facility] Date(s): 10/24/21 - 11/23/21 [facility] [address] [place] [address]- Attending Physician: AdmPili dean Admitting Physician: Admtr, [id number] Referring Physician: Admtr, [...] Reason: Nursing Judgment 2Result Comment: sanofi pasteur [id number] 3Early/Late Reason: Nursing Judgment 4Result Comment: [id number] [employer] Medications Albuterol (Eqv-Proventil HFA) 90 mcg/inh inhalation aerosol 2 puffs, Inhalation, 4 times a day, # 20.1 each, 5 Refills, Maintenance, 10/13/21 9:29:00 EDT, [id number], 158, cm, 09/19/21 15:25:00 EDT, Height Start Date: 10/13/21 Status: Ordered bupropion extended release = 200 mg, By Mouth, Daily, 0 Refills, Maintenance, 04/22/18 8:53:19 EDT Start Date: 04/22/18 Status: Ordered digoxin 0.125 mg oral tablet 1, tablet, By Mouth, Daily, # 90 tablet, Refills 3, Tot. Refills 3, Maintenance, 11/08/21 12:38:00 EDT, Route to Pharmacy Electronically, [facility]/pharmacy #[id number], 158, cm, 11/07/21 11:39:00 EDT, Height Start Date: 11/08/21 Stop Date: 11/03/22 Status: Ordered dilTIAZem 360 mg/24 hours oral capsule, extended release 1 capsule = 360 mg, By Mouth, Daily, # 30 capsule, 2 Refills, Maintenance, 10/09/21 16:35:00 EDT, [facility]/pharmacy #[id number], dose increase, 158, cm, 09/19/21 [...] 6 Refills, Maintenance, 10/15/21 10:41:00 EDT, Tablet, [facility]/pharmacy #[id number], Partial fill upon patient request if the prescription is for a schedule II opioid drug., 158, cm, 09/19/21 15:25:00 EDT,... Start Date: 10/15/21 Status: Ordered Flovent HFA 110 mcg/inh inhalation aerosol 2 puffs, Inhalation, 2 times a day, RINSE THROAT AFTER USE, # 3 each, 0 Refills, Maintenance, 10/09/21 12:29:00 EDT, [facility]/pharmacy #[id number], 158, cm, 09/19/21 15:25:00 EDT, [...] 1, Route to Pharmacy Electronically, [id number], 158, cm, 07/30/21 8:48:00 EDT, Height Start [...] Uterine prolapse Confirmed Active 1c2017 2E2017 3E2017 48004; repeat 2027 5c2017 Social History Social History Type Response Smoking Status Former smoker; Other : quit 30 years ago; entered on: 07/24/17 Sex Patient Care team information Personnel Name: Mayuri PASCUAL, Eddie Morales Address: Address: [address] [place] [id number]
--- NOTE | 2022-05-24 00:21 | ED_ITS ---
HPI - Fall General Chief Complaint: Fall Stated Complaint: Fall Time Seen by Provider: 05/24/22 00:15 Source: patient Mode of arrival: ambulatory Limitations: no limitations History of Present Illness HPI Narrative: Patient came after mechanical fall with scalp laceration. Patient Eliquis for AFib was going up stairs lost balance fell backwards from about 4- 5 steps and hitting her head to the ground came with ecchymosis of her right hand pain in left hip and in the neck and the head no loss of consciousness patient complaining of pain in the left shoulder left hip right hand and neck no dizziness no chest palpitation or chest pain Related Data Home Medications Medication Instructions Recorded Confirmed bupropion HCl 200 mg tablet,12 hr PO 01/10/20 sustained-release (Wellbutrin SR) gabapentin 100 mg capsule 100 mg PO DAILY 01/10/20 lamotrigine 200 mg tablet 200 mg PO DAILY 01/10/20 metoprolol succinate 25 mg 25 mg PO DAILY 01/10/20 tablet,extended release 24 hr oxybutynin chloride 10 mg 10 mg PO DAILY 01/10/20 tablet,extended release 24 hr pantoprazole 40 mg tablet,delayed 40 mg PO DAILY 01/10/20 release Previous Rx's Medication Instructions Recorded ciprofloxacin HCl 500 mg tablet 500 mg PO BID #14 tabs 10/17/20 (Cipro) phenazopyridine 200 mg tablet 200 mg PO TID 3 days #9 tabs 10/17/20 (Pyridium) Allergies Allergy/AdvReac Type Severity Reaction Status Date / Time No Known Allergies Allergy Verified 10/17/20 08:13 Review of Systems Review of Systems: Yes all other systems are reviewed and are negative [facility] Past Medical History Medical History Hypertension MILY (obstructive sleep apnea) SOB (shortness of breath) Surgical History History of bunionectomy History of total replacement of right hip Left inguinal hernia Social History Social History Advance Directives: No Advance Directives Information Provided: Yes Physical Exam Vital Signs: Vital Signs: Last Vital Signs Pulse 61 05/23/22 23:35 Resp 14 05/23/22 23:35 BP 163/68 H 04/14/23 23:35 Pulse Ox 97 05/23/22 23:35 O2 Del Method Room Air 05/23/22 23:35 BMI result Body Mass Index 24.7 Appearance: Alert. Oriented X3. No acute distress. Eyes: PERRLA, No Nystagmus HEENT: Pharynx normal. Oral Mucosa moist like on top of the head Neck: Normal inspection. Neck supple. Diffuse tenderness no midline tenderness CVS: Irregularly irregular heart rate Pulses normal. Respiratory: No respiratory distress. Equal air entry bilateral, no wheezing/rales/rhonchi Abdomen: Soft and nontender. Bowel sounds are present, no mass palpable, no CVA tenderness Skin: Skin warm and dry. Normal skin color. Normal skin turgor. Extremities: No lower extremity edema. No calf tenderness hematoma right hand and left shoulder tender left hip area with ecchymosis with good range of movem ent Neuro: Oriented X 3. No motor deficit. No sensory deficit.No cerebellar signs , cranial nerves II-XII intact HEENT: Head images: 1. 10 cm Laceration at the top of the scalp Procedures Laceration Laceration 1: Site: scalp Size (cm): 10 Description: linear Local Anesthetic: lidocaine 1% Amount of anesthesia used (mL): 10 Skin layer closed with: other (Staple) Number of sutures: 13 Medical Decision Making Medical Decision Making [facility] Narrative: Patient's CT scan of the head C-spine negative and x-rays of the right hand showed a negative laceration stapled Lab Data [facility] Lab Attestation statement: I reviewed the patient's lab results. 05/23/22 23:48 05/23/22 23:48 Labs: Lab Results 05/23/22 05/23/22 Range/Units 23:48 23:48 WBC 11.5 H (4.8-10.8) X10*3/uL RBC 4.39 (4.20-5.50) X10*6/uL Hgb 9.6 L (12.0-16.0) g/dl Hct 32.3 L (37.0-47.0) % MCV 73.6 L (80.0-98.0) fL MCH 21.9 L (27.0-33.0) pg MCHC 29.7 L (31.0-35.0) g/dl RDW 17.0 H (11.0-16.0) % Plt Count 304 (160-400) X10*3/uL MPV 9.7 (9.4-12.3) fL Immature Gran % (Auto) 0.3 (0.0-0.4) % Neut % (Auto) 70.3 (45-73) % Lymph % (Auto) 17.6 L (20-40) % Bladen % (Auto) 9.1 (2-11) % Eos % (Auto) 2.2 (0-4) % Baso % (Auto) 0.5 (0-2) % Lymph # (Auto) 2.0 (1.2-4.9) X10*3/uL Bladen # (Auto) 1.0 (0.1-1.2) X10*3/uL Eos # (Auto) 0.3 (0.0-0.4) X10*3/uL Baso # (Auto) 0.1 (0.0-0.2) X10*3/uL Abs Immat Gran (auto) 0.04 H (0.00-0.03) X10*3/uL Absolute Neuts (auto) 8.1 (2.0-8.3) x10*3/uL Absolute Nucleated RBC 0.000 (0.0-0.012) X10*3/uL Nucleated RBC % (auto) 0.0 (0.0-0.2) /100WBC Sodium 139 (135-145) mmol/L Potassium 4.0 (3.3-5.1) mmol/L Chloride 107 (96-108) mmol/L Carbon Dioxide 25 (22-29) mmol/L Anion Gap 11 L (12-20) BUN 23 H (9-16) mg/dL Creatinine 0.90 (0.5-1.4) mg/dL Estim Creat Clear Calc 49.3 Estimated GFR > 60 Random Glucose 85 (60-115) mg/dL Calcium 9.3 (8.4-10.2) mg/dL Total Bilirubin 0.2 (0.0-1.0) mg/dL AST 23 (5-31) U/L ALT 17 (0-31) U/L Alkaline Phosphatase 91 (39-117) U/L Total Protein 5.9 L (6.5-8.0) g/dL Albumin 3.7 (3.5-5.0) g/dL Discharge Plan Discharge Clinical Impression: Fall (on) (from) other stairs and steps, initial encounter, Laceration of scalp Patient Disposition: Home, Self-Care Instructions: Laceration (ED), Fall Prevention for Older Adults (ED) Additional Instructions: Care and caution as advised Staple removal in 7-10 days Prescriptions: No Action ciprofloxacin HCl [Cipro] 500 mg tablet 500 mg PO BID Qty: 14 0RF phenazopyridine [Pyridium] 200 mg tablet 200 mg PO TID 3 Days Qty: 9 0RF
[2022-05-24 03:31] VITALS: BP 143/69; PULSE 68; RESP 20; TEMP 36.4; O2SAT 96
--- NOTE | 2022-05-24 03:59 | PC.NURSE ---
Dressing applied to head laceration. IV line removed. Pt tolerated well. Discharge instructions reviewed with pt. Pt verbalizes understanding.
== END 2022-05-24 04:00 | disposition home or self-care (01) ==
PROVIDERS: Emergency Provider Internal Medicine; PCP Internal Medicine
DX: S01.01XA Laceration without foreign body of scalp, initial encounter (principal); S60.221A Contusion of right hand, initial encounter; S40.012A Contusion of left shoulder, initial encounter; S70.02XA Contusion of left hip, initial encounter; W10.8XXA Fall (on) (from) other stairs and steps, initial encounter; I10 Essential (primary) hypertension; Y93.89 Activity, other specified; Y92.018 Other place in single-family (private) house as the place of occurrence of the external cause; Y99.9 Unspecified external cause status; Z79.899 Other long term (current) drug therapy
CPT/HCPCS: 12004; 36415; 70450; 72125; 72170; 73030; 73130; 80053; 85025; 99283; 99284

== ENCOUNTER 2022-05-27 16:03 | Observation (INO) | payer MEDICARE, SELFPAY ==
[2022-05-27] VITALS (10 sets, daily range): BP systolic 120–162; BP diastolic 48–99; PULSE 74–91; RESP 16–21; TEMP 36.6–37.2; O2SAT 97–99; BMI 24.8
--- NOTE | ~2022-05-27 | CT_ITS ---
EXAMINATION: CT ABDOMEN AND PELVIS WITHOUT CONTRAST CLINICAL INFORMATION: Ecchymosis COMPARISON: CT abdomen pelvis 11/24/2016 TECHNIQUE: Multidetector volumetric imaging was performed from the superior aspect of the liver through the pubic symphysis. Sagittal and coronal reformatted images were obtained on the technologist's workstation. This CT examination was performed using dose optimization techniques as appropriate, variously including the following: *Automated exposure control *Adjustment of mA and/or kV according to patient size (this includes techniques or standardized protocols for targeted exams where dose is matched to indication/reason for exam; i.e. extremities or head) *Use of iterative reconstruction technique DLP: 792 mGy-cm FINDINGS: LUNG BASES: Bibasilar atelectasis is present LIVER, GALLBLADDER, AND BILIARY TREE: The liver is normal in size, shape, and attenuation. No focal hepatic lesion or biliary ductal dilatation is present. The gallbladder is unremarkable with no evidence of radiopaque gallstones, gallbladder wall thickening, or obvious pericholecystic inflammatory changes. PANCREAS: Unremarkable. SPLEEN: Unremarkable. ADRENAL GLANDS: Unremarkable. KIDNEYS AND URETERS: The kidneys are normal in size, shape, and attenuation. No hydronephrosis, hydroureter, or calculi seen. No perinephric stranding. BLADDER: Unremarkable. GASTROINTESTINAL TRACT: Patient status post gastric surgery with multiple clips. Colonic diverticula are present without diverticulitis. The small and large bowel are unremarkable otherwise. The appendix is unremarkable. ABDOMINAL WALL: A left buttock hematoma is present measuring about 9.7 x 3.2 x 16.3 cm. No hernias are seen. LYMPH NODES: No retroperitoneal lymphadenopathy. VASCULAR: Calcific atherosclerotic changes are present in the aorta and iliofemoral vessels without aneurysm. PELVIC VISCERA: A pessary is present. OSSEOUS STRUCTURES: A convex thoracolumbar scoliosis is present. Severe degenerative changes seen in the spine from L3 through S1. Right total hip prosthesis is present. Severe degenerative changes are present in the left hip. CT/CT abdomen pelvis wo IV con IMPRESSION: 1. Large left buttock hematoma. 2. Incidental note made of gastric surgery, colonic diverticulosis, pessary and severe degenerative changes in the spine and left hip. Fleischner guidelines were followed.
--- NOTE | ~2022-05-27 | XR_ITS ---
EXAMINATION: XR CHEST CLINICAL INFORMATION: Chest pain. Shortness of breath. COMPARISON: 03/18/2022 TECHNIQUE: Frontal view of the chest was obtained. FINDINGS: The lungs are well expanded. There is no focal consolidation, edema, or effusion. No pneumothorax. The cardiomediastinal silhouette is within normal limits. No acute osseous abnormality. Advanced degenerative change at the left glenohumeral joint. Left upper quadrant surgical clips. XR/XR chest 1V IMPRESSION: No acute pulmonary disease.
--- NOTE | 2022-05-27 16:04 | ECG_ITS ---
Test Reason : CP Blood Pressure : / mmHG Vent. Rate : 079 BPM Atrial Rate : 079 BPM P-R Int : 184 ms QRS Dur : 106 ms QT Int : 358 ms P-R-T Axes : 064 -36 109 degrees QTc Int : 410 ms Normal sinus rhythm Left axis deviation Minimal voltage criteria for LVH, may be normal variant ( Homar product ) ST & T wave abnormality, consider lateral ischemia Abnormal ECG When compared with ECG of 18-APR-2022 19:18, No significant change was found Referred By: Generic ED Physician Electronically Signed By:JUDITH TRACY
--- NOTE | 2022-05-27 16:14 | ED_ITS ---
HPI - SOB/Dyspnea General Chief Complaint: Dyspnea <ANIYA Blount - Last Filed: 05/27/22 16:43> Stated Complaint: Difficulty breathing <ANIYA Blount - Last Filed: 05/27/22 16:43> Time Seen by Provider: 05/27/22 16:56 <ANIYA Blount - Last Filed: 05/27/22 16:43> Related Data Home Medications: Home Medications Medication Instructions Recorded Confirmed bupropion HCl 200 mg tablet,12 hr 200 mg PO BID 01/11/20 08/24/21 sustained-release (Wellbutrin SR) albuterol sulfate 90 mcg/actuation 2 puff inhalation Q4-6H PRN 12/05/20 08/24/21 aerosol inhaler Shortness Of Breath lamotrigine 200 mg tablet 200 mg PO DAILY 12/05/20 08/24/21 montelukast 10 mg tablet 10 mg PO DAILY 12/05/20 08/24/21 oxybutynin chloride 10 mg 10 mg PO DAILY 12/05/20 08/24/21 tablet,extended release 24 hr lamotrigine 25 mg tablet 50 mg PO BEDTIME 06/07/21 08/24/21 pantoprazole 40 mg tablet,delayed 40 mg PO DAILY@0630 08/24/21 08/24/21 release estradiol 0.01% (0.1 mg/gram) 1 g vaginal 3XW 10/11/21 vaginal cream Previous Rx's Medication Instructions Recorded benzonatate 100 mg capsule 100 mg PO TID PRN cough #20 caps 09/11/21 digoxin 125 mcg (0.125 mg) tablet 0.125 mg PO DAILY #30 tabs 09/11/21 diltiazem HCl 240 mg 240 mg PO DAILY #30 caps 09/11/21 capsule,extended release 24 hr (Cardizem CD) apixaban 5 mg tablet (Eliquis) 5 mg PO BID #60 tabs 09/12/21 nitrofurantoin 100 mg PO Q12H 5 days #10 caps 10/15/21 monohydrate/macrocrystals 100 mg capsule (Macrobid) furosemide 40 mg tablet 40 mg PO DAILY #7 tabs 03/07/22 fluticasone fur. 200 mcg-umeclid 1 inh inhalation DAILY 30 days #1 04/23/22 62.5 mcg-vilant 25 mcg ea inhalat.powder (Trelegy Ellipta) albuterol sulfate 90 mcg/actuation 2 puff inhalation Q4-6H PRN 05/05/22 aerosol inhaler (ProAir HFA) shortness of breath or wheezing #8.5 grams azithromycin 250 mg tablet See Rx Instructions PO .COMPLEX #6 05/07/22 tabs <ANIYA Blount - Last Filed: 05/27/22 16:43> Allergies/Adverse Reactions: Allergies Allergy/AdvReac Type Severity Reaction Status Date / Time No Known Allergies Allergy Verified 05/27/22 16:21 [No Known Allergies*] <ANIYA Blount - Last Filed: 05/27/22 16:43> FORMERLY [facility] Past Medical History Medical History: Medical History Asthma Atrial fibrillation, new onset Hypertension Loculated pleural effusion MSSA bacteremia UTI (urinary tract infection) <ANIYA Blount - Last Filed: 05/27/22 16:43> Surgical History: Surgical History History of total left hip arthroplasty History of total right hip arthroplasty S/P laparoscopic sleeve gastrectomy <ANIYA Blount - Last Filed: 05/27/22 16:43> Social History Social History: Social History Household Members: Spouse Household Members Other:: Danny Housing: House Do you presently have visiting nurse or other home services: No Alcohol intake: never Patient Tobacco Use Status: Former Tobacco user Years Smoked: 25 Smoked in Last 30 Days: No Second Hand Smoke Exposure: No Use of substances other than those prescribed or required for medical reasons: No Advance Directives: No Advance Directives Information Provided: No service: No 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al status: retired 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: Right Handed <ANIYA Blount - Last Filed: 05/27/22 16:43> Physical Exam Vital Signs: Vital Signs: Last Vital Signs Temp 98.9 F 05/27/22 21:35 Pulse 78 05/27/22 21:35 Resp 18 05/27/22 21:35 BP 154/67 H 05/27/22 21:35 Pulse Ox 98 05/27/22 21:35 O2 Del Method Room Air 05/27/22 21:35 BMI result Body Mass Index 24.8 <ANIYA Blount - Last Filed: 05/27/22 16:43> Vital Signs: Last Vital Signs Temp 98.9 F 05/27/22 21:35 Pulse 78 05/27/22 21:35 Resp 18 05/27/22 21:35 BP 154/67 H 05/27/22 21:35 Pulse Ox 98 05/27/22 21:35 O2 Del Method Room Air 05/27/22 21:35 BMI result Body Mass Index 24.8 <Marlena Caba MD - Last Filed: 05/27/22 22:03> Course Course Course Narrative: This is an RME: Additional HPI, ROS, PE not included below will be deferred to primary provider. 71-year-old female history of dyspnea on exertion, MSSA, constipation, presenting to the emergency department with complaints of shortness of breath, chest pressure since this morning patient tells me she was in hospital Thursday into Thursday for a fall, since then has not been feeling well. He reports substernal chest pressure, shortness of breath worse with exertion better at rest. She thought she was maybe in atrial fibrillation. She does tell me she has a history of AFib and is anticoagulated on Eliquis and has been taking it as prescribed. Physical exam with bruising to right hand, face, tisha in the scalp global weakness. Patient pale Plan labs, imaging, EKG, chest x-ray. No need for D-dimer patient anticoagulated. <ANIYA Blount - Last Filed: 05/27/22 16:43> This is an RME: Additional HPI, ROS, PE not included below will be deferred to primary provider. 71-year-old female history of dyspnea on exertion, MSSA, constipation, presenting to the emergency department with complaints of shortness of breath, chest pressure since this morning patient tells me she was in hospital Thursday into Thursday for a fall, since then has not been feeling well. He reports substernal chest pressure, shortness of breath worse with exertion better at rest. She thought she was maybe in atrial f ibrillation. She does tell me she has a history of AFib and is anticoagulated on Eliquis and has been taking it as prescribed. Physical exam with bruising to right hand, face, tisha in the scalp global weakness. Patient pale Plan labs, imaging, EKG, chest x-ray. No need for D-dimer patient an ticoagulated. -of note, patient has 2 charts in this hospital due to a misspelled name. By tomorrow morning, 05/28/2022, they will be emerged according to registration. <Marlena Caba MD - Last Filed: 05/27/22 22:03> Medications Administered Discontinued Medications Generic Name Dose Route Start Last Admin Trade Name Freq PRN Reason Stop Dose Admin Acetaminophen 975 mg 05/27/22 19:04 05/27/22 19:09 Acetaminophen 325 Mg Tablet PO 05/27/22 19:05 975 mg ONCE ONE Administration <ANIYA Blount - Last Filed: 05/27/22 16:43> Medications Administered Discontinued Medications Generic Name Dose Route Start Last Admin Trade Name Freq PRN Reason Stop Dose Admin Acetaminophen 975 mg 05/27/22 19:04 05/27/22 19:09 Acetaminophen 325 Mg Tablet PO 05/27/22 19:05 975 mg ONCE ONE Administration <Marlena Caba MD - Last Filed: 05/27/22 22:03> Medical Decision Making Medical Decision Making MDM Narrative: -patient's hemoglobin dropped from baseline from 10 to 6. Patient states that she had a significant bleed from the scalp. However, I cannot account for such a drop in hemoglobin from scalp bleed. -CT scan of the abdomen shows a large left buttock hematoma measuring 9.7 cm x 3.2 x 16.3 -patient states that the ecchymosis in her left buttocks/left hip is actually decreasing in size and is less painful than it was a few days ago. Active extravasation is not suspected -since patient is symptomatic with a hemoglobin of 6.0, I discussed with the patient's the risks versus benefits of a blood transfusion, patient agreeable, patient signed consent. -we will start with 2 units of pRBCs I discussed the patient with Dr. Craven, pt being admitted <Marlena Caba MD - Last Filed: 05/27/22 22:03> Differential Diagnosis Differential Diagnoses: The differential diagnosis associated with the presentation includes (Hematoma, iron deficiency anemia, blood loss anemia) <Marlena Caba MD - Last Filed: 05/27/22 22:03> Admission/Observation Consideration of admission/observation: Escalation of care including admission/observation considered <Marlena Caba MD - Last Filed: 05/27/22 22:03> Consult Healthcare Provider Management of the patient was discussed with: Hospitalist <Marlena Caba MD - Last Filed: 05/27/22 22:03> Lab Data MDM Lab Attestation statement: I reviewed the patient's lab results. <Marlena Caba MD - Last Filed: 05/27/22 22:03> Result Diagrams: 05/27/22 16:17 05/27/22 16:18 <ANIYA Blount - Last Filed: 05/27/22 16:43> Labs: Lab Results 05/27/22 05/27/22 05/27/22 Range/Units 16:17 16:17 16:17 WBC 8.1 (4.8-10.8) X10*3/uL RBC 2.67 L D (4.20-5.50) X10*6/uL Hgb 6.0 L* D (12.0-16.0) g/dl Hct 20.3 L* D (37.0-47.0) % MCV 76.0 L (80.0-98.0) fL MCH 22.5 L (27.0-33.0) pg MCHC 29.6 L (31.0-35.0) g/dl RDW 17.8 H (11.0-16.0) % Plt Count 304 (160-400) X10*3/uL MPV 9.6 (9.4-12.3) fL Immature Gran % (Auto) 0.6 H (0.0-0.4) % Neut % (Auto) 70.5 (45-73) % Lymph % (Auto) 18.3 L (20-40) % [place] % (Auto) 9.0 (2-11) % Eos % (Auto) 1.1 (0-4) % Baso % (Auto) 0.5 (0-2) % Lymph # (Auto) 1.5 (1.2-4.9) X10*3/uL [place] # (Auto) 0.7 (0.1-1.2) X10*3/uL Eos # (Auto) 0.1 (0.0-0.4) X10*3/uL Baso # (Auto) 0.0 (0.0-0.2) X10*3/uL Abs Immat Gran (auto) 0.05 H (0.00-0.03) X10*3/uL Absolute Neuts (auto) 5.7 (2.0-8.3) x10*3/uL Absolute Nucleated RBC 0.020 H (0.0-0.012) X10*3/uL Nucleated RBC % (auto) 0.2 (0.0-0.2) /100WBC Sodium (135-145) mmol/L Potassium (3.3-5.1) mmol/L Chloride (96-108) mmol/L Carbon Dioxide (22-29) mmol/L Anion Gap (12-20) BUN (9-16) mg/dL Creatinine (0.5-1.4) mg/dL Estim Creat Clear Calc Estimated GFR Random Glucose (60-115) mg/dL Calcium (8.4-10.2) mg/dL Magnesium (1.6-2.6) mg/dL Total Bilirubin (0.0-1.0) mg/dL AST (5-31) U/L ALT (0-31) U/L Alkaline Phosphatase (39-117) U/L Troponin I High Sens 7.9 (<3.5-17.0) ng/L B-Natriuretic Peptide 88 (<100) pg/mL Total Protein (6.5-8.0) g/dL Albumin (3.5-5.0) g/dL Stool Occult Blood (NEGATIVE) COVID-19 ([facility]) (Negative) COVID-19 Clin Com Blood Type Antibody Screen Crossmatch 05/27/22 05/27/22 05/27/22 Range/Units 16:17 16:18 17:21 WBC (4.8-10.8) X10*3/uL RBC (4.20-5.50) X10*6/uL Hgb (12.0-16.0) g/dl Hct (37.0-47.0) % MCV (80.0-98.0) fL MCH (27.0-33.0) pg MCHC (31.0-35.0) g/dl RDW (11.0-16.0) % Plt Count (160-400) X10*3/uL MPV (9.4-12.3) fL Immature Gran % (Auto) (0.0-0.4) % Neut % (Auto) (45-73) % Lymph % (Auto) (20-40) % [place] % (Auto) (2-11) % Eos % (Auto) (0-4) % Baso % (Auto) (0-2) % Lymph # (Auto) (1.2-4.9) X10*3/uL [place] # (Auto) (0.1-1.2) X10*3/uL Eos # (Auto) (0.0-0.4) X10*3/uL Baso # (Auto) (0.0-0.2) X10*3/uL Abs Immat Gran (auto) (0.00-0.03) X10*3/uL Absolute Neuts (auto) (2.0-8.3) x10*3/uL Absolute Nucleated RBC (0.0-0.012) X10*3/uL Nucleated RBC % (auto) (0.0-0.2) /100WBC Sodium 141 (135-145) mmol/L Potassium 4.5 (3.3-5.1) mmol/L Chloride 107 (96-108) mmol/L Carbon Dioxide 26 (22-29) mmol/L Anion Gap 13 (12-20) BUN 16 (9-16) mg/dL Creatinine 0.71 (0.5-1.4) mg/dL Estim Creat Clear Calc 62.7 Estimated GFR > 60 Random Glucose 98 (60-115) mg/dL Calcium 9.5 (8.4-10.2) mg/dL Magnesium 2.1 (1.6-2.6) mg/dL Total Bilirubin 0.6 (0.0-1.0) mg/dL AST 22 (5-31) U/L ALT 17 (0-31) U/L Alkaline Phosphatase 82 (39-117) U/L Troponin I High Sens (<3.5-17.0) ng/L B-Natriuretic Peptide (<100) pg/mL Total Protein 5.9 L (6.5-8.0) g/dL Albumin 3.6 (3.5-5.0) g/dL Stool Occult Blood (NEGATIVE) COVID-19 ([facility]) Negative (Negative) COVID-19 Clin Com See Note Blood Type O Positive Antibody Screen NEGATIVE Crossmatch See Detail 05/27/22 Range/Units 17:21 WBC (4.8-10.8) X10*3/uL RBC (4.20-5.50) X10*6/uL Hgb (12.0-16.0) g/dl Hct (37.0-47.0) % MCV (80.0-98.0) fL MCH (27.0-33.0) pg MCHC (31.0-35.0) g/dl RDW (11.0-16.0) % Plt Count (160-400) X10*3/uL MPV (9.4-12.3) fL Immature Gran % (Auto) (0.0-0.4) % Neut % (Auto) (45-73) % Lymph % (Auto) (20-40) % [place] % (Auto) (2-11) % Eos % (Auto) (0-4) % Baso % (Auto) (0-2) % Lymph # (Auto) (1.2-4.9) X10*3/uL [place] # (Auto) (0.1-1.2) X10*3/uL Eos # (Auto) (0.0-0.4) X10*3/uL Baso # (Auto) (0.0-0.2) X10*3/uL Abs Immat Gran (auto) (0.00-0.03) X10*3/uL Absolute Neuts (auto) (2.0-8.3) x10*3/uL Absolute Nucleated RBC (0.0-0.012) X10*3/uL Nucleated RBC % (auto) (0.0-0.2) /100WBC Sodium (135-145) mmol/L Potassium (3.3-5.1) mmol/L Chloride (96-108) mmol/L Carbon Dioxide (22-29) mmol/L Anion Gap (12-20) BUN (9-16) mg/dL Creatinine (0.5-1.4) mg/dL Estim Creat Clear Calc Estimated GFR Random Glucose (60-115) mg/dL Calcium (8.4-10.2) mg/dL Magnesium (1.6-2.6) mg/dL Total Bilirubin (0.0-1.0) mg/dL AST (5-31) U/L ALT (0-31) U/L Alkaline Phosphatase (39-117) U/L Troponin I High Sens (<3.5-17.0) ng/L B-Natriuretic Peptide (<100) pg/mL Total Protein (6.5-8.0) g/dL Albumin (3.5-5.0) g/dL Stool Occult Blood NEGATIVE (NEGATIVE) COVID-19 ([facility]) (Negative) COVID-19 Clin Com Blood Type Antibody Screen Crossmatch <ANIYA Blount - Last Filed: 05/27/22 16:43> Lab Results 05/27/22 05/27/22 05/27/22 Range/Units 16:17 16:17 16:17 WBC 8.1 (4.8-10.8) X10*3/uL RBC 2.67 L D (4.20-5.50) X10*6/uL Hgb 6.0 L* D (12.0-16.0) g/dl Hct 20.3 L* D (37.0-47.0) % MCV 76.0 L (80.0-98.0) fL MCH 22.5 L (27.0-33.0) pg MCHC 29.6 L (31.0-35.0) g/dl RDW 17.8 H (11.0-16.0) % Plt Count 304 (160-400) X10*3/uL MPV 9.6 (9.4-12.3) fL Immature Gran % (Auto) 0.6 H (0.0-0.4) % Neut % (Auto) 70.5 (45-73) % Lymph % (Auto) 18.3 L (20-40) % [place] % (Auto) 9.0 (2-11) % Eos % (Auto) 1.1 (0-4) % Baso % (Auto) 0.5 (0-2) % Lymph # (Auto) 1.5 (1.2-4.9) X10*3/uL [place] # (Auto) 0.7 (0.1-1.2) X10*3/uL Eos # (Auto) 0.1 (0.0-0.4) X10*3/uL Baso # (Auto) 0.0 (0.0-0.2) X10*3/uL Abs Immat Gran (auto) 0.05 H (0.00-0.03) X10*3/uL Absolute Neuts (auto) 5.7 (2.0-8.3) x10*3/uL Absolute Nucleated RBC 0.020 H (0.0-0.012) X10*3/uL Nucleated RBC % (auto) 0.2 (0.0-0.2) /100WBC Sodium (135-145) mmol/L Potassium (3.3-5.1) mmol/L Chloride (96-108) mmol/L Carbon Dioxide (22-29) mmol/L Anion Gap (12-20) BUN (9-16) mg/dL Creatinine (0.5-1.4) mg/dL Estim Creat Clear Calc Estimated GFR Random Glucose (60-115) mg/dL Calcium (8.4-10.2) mg/dL Magnesium (1.6-2.6) mg/dL Total Bilirubin (0.0-1.0) mg/dL AST (5-31) U/L ALT (0-31) U/L Alkaline Phosphatase (39-117) U/L Troponin I High Sens 7.9 (<3.5-17.0) ng/L B-Natriuretic Peptide 88 (<100) pg/mL Total Protein (6.5-8.0) g/dL Albumin (3.5-5.0) g/dL Stool Occult Blood (NEGATIVE) COVID-19 ([facility]) (Negative) COVID-19 Clin Com Blood Type Antibody Screen Crossmatch 05/27/22 05/27/22 05/27/22 Range/Units 16:17 16:18 17:21 WBC (4.8-10.8) X10*3/uL RBC (4.20-5.50) X10*6/uL Hgb (12.0-16.0) g/dl Hct (37.0-47.0) % MCV (80.0-98.0) fL MCH (27.0-33.0) pg MCHC (31.0-35.0) g/dl RDW (11.0-16.0) % Plt Count (160-400) X10*3/uL MPV (9.4-12.3) fL Immature Gran % (Auto) (0.0-0.4) % Neut % (Auto) (45-73) % Lymph % (Auto) (20-40) % [place] % (Auto) (2-11) % Eos % (Auto) (0-4) % Baso % (Auto) (0-2) % Lymph # (Auto) (1.2-4.9) X10*3/uL [place] # (Auto) (0.1-1.2) X10*3/uL Eos # (Auto) (0.0-0.4) X10*3/uL Baso # (Auto) (0.0-0.2) X10*3/uL Abs Immat Gran (auto) (0.00-0.03) X10*3/uL Absolute Neuts (auto) (2.0-8.3) x10*3/uL Absolute Nucleated RBC (0.0-0.012) X10*3/uL Nucleated RBC % (auto) (0.0-0.2) /100WBC Sodium 141 (135-145) mmol/L Potassium 4.5 (3.3-5.1) mmol/L Chloride 107 (96-108) mmol/L Carbon Dioxide 26 (22-29) mmol/L Anion Gap 13 (12-20) BUN 16 (9-16) mg/dL Creatinine 0.71 (0.5-1.4) mg/dL Estim Creat Clear Calc 62.7 Estimated GFR > 60 Random Glucose 98 (60-115) mg/dL Calcium 9.5 (8.4-10.2) mg/dL Magnesium 2.1 (1.6-2.6) mg/dL Total Bilirubin 0.6 (0.0-1.0) mg/dL AST 22 (5-31) U/L ALT 17 (0-31) U/L Alkaline Phosphatase 82 (39-117) U/L Troponin I High Sens (<3.5-17.0) ng/L B-Natriuretic Peptide (<100) pg/mL Total Protein 5.9 L (6.5-8.0) g/dL Albumin 3.6 (3.5-5.0) g/dL Stool Occult Blood (NEGATIVE) COVID-19 ([facility]) Negative (Negative) COVID-19 Clin Com See Note Blood Type O Positive Antibody Screen NEGATIVE Crossmatch See Detail 05/27/22 Range/Units 17:21 WBC (4.8-10.8) X10*3/uL RBC (4.20-5.50) X10*6/uL Hgb (12.0-16.0) g/dl Hct (37.0-47.0) % MCV (80.0-98.0) fL MCH (27.0-33.0) pg MCHC (31.0-35.0) g/dl RDW (11.0-16.0) % Plt Count (160-400) X10*3/uL MPV (9.4-12.3) fL Immature Gran % (Auto) (0.0-0.4) % Neut % (Auto) (45-73) % Lymph % (Auto) (20-40) % [place] % (Auto) (2-11) % Eos % (Auto) (0-4) % Baso % (Auto) (0-2) % Lymph # (Auto) (1.2-4.9) X10*3/uL [place] # (Auto) (0.1-1.2) X10*3/uL Eos # (Auto) (0.0-0.4) X10*3/uL Baso # (Auto) (0.0-0.2) X10*3/uL Abs Immat Gran (auto) (0.00-0.03) X10*3/uL Absolute Neuts (auto) (2.0-8.3) x10*3/uL Absolute Nucleated RBC (0.0-0.012) X10*3/uL Nucleated RBC % (auto) (0.0-0.2) /100WBC Sodium (135-145) mmol/L Potassium (3.3-5.1) mmol/L Chloride (96-108) mmol/L Carbon Dioxide (22-29) mmol/L Anion Gap (12-20) BUN (9-16) mg/dL Creatinine (0.5-1.4) mg/dL Estim Creat Clear Calc Estimated GFR Random Glucose (60-115) mg/dL Calcium (8.4-10.2) mg/dL Magnesium (1.6-2.6) mg/dL Total Bilirubin (0.0-1.0) mg/dL AST (5-31) U/L ALT (0-31) U/L Alkaline Phosphatase (39-117) U/L Troponin I High Sens (<3.5-17.0) ng/L B-Natriuretic Peptide (<100) pg/mL Total Protein (6.5-8.0) g/dL Albumin (3.5-5.0) g/dL Stool Occult Blood NEGATIVE (NEGATIVE) COVID-19 ([facility]) (Negative) COVID-19 Clin Com Blood Type Antibody Screen Crossmatch <Marlena Caba MD - Last Filed: 05/27/22 22:03> Independent Interpretation I performed an independent interpretation of an: CT Scan (My interpretation of CT scan of abdomen pelvis, there is a large ecchymosis in the left buttock) <Marlena Caba MD - Last Filed: 05/27/22 22:03> Radiology Impression Discussion of test interpretation with radiology: I have reviewed the radiologist's reading. <Marlena Caba MD - Last Filed: 05/27/22 22:03> Radiologist Impression: FINDINGS: LUNG BASES: Bibasilar atelectasis is present? LIVER, GALLBLADDER, AND BILIARY TREE: The liver is normal in size, shape, and attenuation. No focal hepatic lesion or biliary ductal dilatation is present. The gallbladder is unremarkable with no evidence of radiopaque gallstones, gallbladder wall thickening, or obvious pericholecystic inflammatory changes.? PANCREAS: Unremarkable.? SPLEEN: Unremarkable.? ADRENAL GLANDS: Unremarkable.? KIDNEYS AND URETERS: The kidneys are normal in size, shape, and attenuation. No hydronephrosis, hydroureter, or calculi seen. No perinephric stranding. ? BLADDER: Unremarkable.? GASTROINTESTINAL TRACT: Patient status post gastric surgery with multiple clips. Colonic diverticula are present without diverticulitis. The small and large bowel are unremarkable otherwise. The appendix is unremarkable.? ABDOMINAL WALL: A left buttock hematoma is present measuring about 9.7 x 3.2 x 16.3 cm. No hernias are seen. LYMPH NODES: No retroperitoneal lymphadenopathy. VASCULAR: Calcific atherosclerotic changes are present in the aorta and iliofemoral vessels without aneurysm. PELVIC VISCERA: A pessary is present.? OSSEOUS STRUCTURES: A convex thoracolumbar scoliosis is present. Severe degenerative changes seen in the spine from L3 through S1. Right total hip prosthesis is present. Severe degenerative changes are present in the left hip. CT/CT abdomen pelvis wo IV con IMPRESSION: 1.? Large left buttock hematoma. 2.? Incidental note made of gastric surgery, colonic diverticulosis, pessary and severe degenerative changes in the spine and left hip. ? Fleischner guidelines were followed. <Marlena Caba MD - Last Filed: 05/27/22 22:03> Critical Care Time Critical Care Time Critical Care Time: Yes <Marlena Caba MD - Last Filed: 05/27/22 22:03> Total Critical Care Time: 75 <Marlena Caba MD - Last Filed: 05/27/22 22:03> Attestation: I have personally provided critical care time. Time includes review of lab data, radiology results, discussion with consultants, and monitoring for potential decompensation. Intervention performed as documented. <Marlena Caba MD - Last Filed: 05/27/22 22:03> Discharge Plan Discharge Clinical Impression: Anemia, Traumatic hematoma of buttock <ANIYA Blount - Last Filed: 05/27/22 16:43> Patient Disposition: Admitted As Inpatient <ANIYA Blount - Last Filed: 05/27/22 16:43> Prescriptions: No Action Trelegy Ellipta 200-62.5-25 mcg blister with device 1 inh inhalation DAILY 30 Days Qty: 1 6RF albuterol sulfate [ProAir HFA] 90 mcg/actuation HFA aerosol inhaler 2 puff inhalation Q4-6H PRN (Reason: shortness of breath or wheezing) Qty: 8.5 6RF pantoprazole 40 mg tablet,delayed release (DR/EC) 40 mg PO DAILY@0630 benzonatate 100 mg Capsule 100 mg PO TID PRN (Reason: cough) Qty: 20 0RF digoxin 125 mcg (0.125 mg) Tablet 0.125 mg PO DAILY Qty: 30 0RF diltiazem HCl [Cardizem CD] 240 mg capsule,extended release 24hr 240 mg PO DAILY Qty: 30 0RF Eliquis 5 mg Tablet 5 mg PO BID Qty: 60 0RF nitrofurantoin monohyd/m-cryst [Macrobid] 100 mg capsule 100 mg PO Q12H 5 Days Qty: 10 0RF Rx Instructions: must administer with a meal/food bupropion HCl [Wellbutrin SR] 200 mg tablet sustained-release 12 hr 200 mg PO BID lamotrigine 25 mg tablet 50 mg PO BEDTIME furosemide 40 mg tablet 40 mg PO DAILY Qty: 7 0RF azithromycin 250 mg tablet See Rx Instructions PO .COMPLEX Qty: 6 0RF Rx Instructions: For 250 mg dose pack: take 500 mg today (day 1), then 250 mg for 4 days (days 2-5) PO montelukast 10 mg tablet 10 mg PO DAILY lamotrigine 200 mg tablet 200 mg PO DAILY oxybutynin chloride 10 mg tablet extended release 24hr 10 mg PO DAILY albuterol sulfate 90 mcg/actuation HFA aerosol inhaler 2 puff inhalation Q4-6H PRN (Reason: Shortness Of Breath) estradiol 0.01 % (0.1 mg/gram) cream 1 g vaginal 3XW <ANIYA Blount - Last Filed: 05/27/22 16:43>
[2022-05-27 16:32] LABS: MANUAL DIFF FLAG NO
[2022-05-27 16:34] LABS: Basophils Percent Auto 0.5 % (0-2); Eosinophils Absolute Auto 0.1 X10*3/uL (0.0-0.4); Eosinophils Percent Auto 1.1 % (0-4); Imm Gran Abs Auto 0.05 X10*3/uL (0.00-0.03); Imm Gran Pct Auto 0.6 % (0.0-0.4); Lymphocytes Absolute Auto 1.5 X10*3/uL (1.2-4.9); Lymphocytes Percent Auto 18.3 % (20-40); Mean Corpuscular HGB Conc 29.6 g/dl (31.0-35.0); Mean Corpuscular Hemoglobin 22.5 pg (27.0-33.0); Mean Platelet Volume 9.6 fL (9.4-12.3); Monocytes Absolute Auto 0.7 X10*3/uL (0.1-1.2); NRBC Pct Auto 0.2 /100WBC (0.0-0.2); Neutrophils Absolute Auto 5.7 x10*3/uL (2.0-8.3); Neutrophils Percent Auto 70.5 % (45-73); Platelet Count 304 X10*3/uL (160-400); Red Blood Count 2.67 X10*6/uL (4.20-5.50); Red Cell Distribution Width 17.8 % (11.0-16.0); White Blood Count 8.1 X10*3/uL (4.8-10.8)
[2022-05-27 16:43] LABS: Hematocrit 20.3 % (37.0-47.0)
[2022-05-27 16:48] LABS: IDNOW Serial# 08D9AD1C
[2022-05-27 16:49] LABS: COVID-19 Test Negative (Negative)
[2022-05-27 17:05] LABS: Alanine Aminotransferase 17 U/L (0-31); Albumin Level 3.6 g/dL (3.5-5.0); Alkaline Phosphatase 82 U/L (39-117); Anion Gap 13 (12-20); Aspartate Amino Transferase 22 U/L (5-31); Bilirubin Total 0.6 mg/dL (0.0-1.0); Blood Urea Nitrogen 16 mg/dL (9-16); Calcium 9.5 mg/dL (8.4-10.2); Carbon Dioxide 26 mmol/L (22-29); Chloride 107 mmol/L (96-108); Creatinine Clr Calc Pharmacy 62.7; Estimated Glomerular Filt Rate > 60; Glucose Random 98 mg/dL (60-115); Magnesium 2.1 mg/dL (1.6-2.6); Potassium 4.5 mmol/L (3.3-5.1); Sodium 141 mmol/L (135-145); Total Protein 5.9 g/dL (6.5-8.0)
[2022-05-27 17:08] LABS: B Type Natriuretic Peptide 88 pg/mL (<100)
[2022-05-27 17:13] LABS: Troponin-I High Sensitivity 7.9 ng/L (<3.5-17.0)
--- NOTE | 2022-05-27 17:30 | PC.NURSE ---
Late entry: two IVs placed in patient 20g placed in RAC and 22g placed in LFA for blood transfusion. Pt awake and oriented x4, calm and cooperative, lung sounds clear, respirations even and unlabored, no apparent distress. S/p fall last thursday with extensive bruising on multiple areas of the body (see above note). Pt reports feeling increasingly fatigued and dizzy over the last few days. Pt was able to get up to the commode with no assistance to use the bathroom
[2022-05-27 17:40] LABS: OBS Int Ctl Valid YES; OBS1 NEGATIVE (NEGATIVE)
[2022-05-27] MEDS: Acetaminophen 325 MG TABLET 975 MG PO (19:09)
--- NOTE | 2022-05-27 22:00 | PM.IMHP ---
History of Present Illness Date of Service: 05/27/22 Chief Complaint: sob In 1-year-old female with past medical history of asthma, AFib on Eliquis, hypertension, recent fall on Thursday comes into the hospital with complaints of shortness of breath. Patient reports that she was evaluated in the ED on Thursday for the fall, the fall was mechanical, she had bleed from the head, she was evaluated, and cleared was discharge but returns today stating shortness of breath, chronic cough that has not worsened, no wheezing, no lower extremity edema, no orthopnea or PND. She chronically uses 3 pillows to sleep on and has never laid flat on her bed. She denies any nausea vomiting, no abdominal pain, no diarrhea constipation, no urinary symptoms. Denies any melena, hematochezia, hematemesis or hemoptysis On arrival to the ED patient found to have blood pressure 120/99, satting 99% on room air. otherwise stable ' Labs are found to be significant for WBC count of 8.1, hemoglobin of 6 which dropped from 10.9 from 04/18, platelet count of 304, labs otherwise unremarkable. BNP 88, Trop negative Abdominal pelvis CT shows 9.7 x 3.2 x 16.3 cm hematoma in the left buttock. According to the patient it has improved today when compared to yesterday. Patient being transfused unit of PRBC, Patient will be admitted for further evaluation Review of Systems Review of Systems: Yes all other systems are reviewed and are negative [facility] Medical History Asthma Atrial fibrillation, new onset Hypertension Loculated pleural effusion MSSA bacteremia UTI (urinary tract infection) Surgical History History of total left hip arthroplasty History of total right hip arthroplasty S/P laparoscopic sleeve gastrectomy Social History Household Members: Spouse Household Members Other:: Danny Housing: House Do you presently have visiting nurse or other home services: No Alcohol intake: never Patient Tobacco Use Status: Former Tobacco user Years Smoked: 25 Smoked in Last 30 Days: No Second Hand Smoke Exposure: No Use of substances other than those prescribed or required for medical reasons: No Advance Directives: No Advance Directives Information Provided: No Nutrition Risks: No Nutritional Risk service: No 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al status: retired 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 Allergies Allergy/AdvReac Type Severity Reaction Status Date / Time No Known Allergies Allergy Verified 05/27/22 16:21 [No Known Allergies*] Active Medications: Current Medications Acetaminophen (Acetaminophen 325 Mg Tablet) 650 mg PO Q6H PRN PRN Reason: Pain, Mild (Pain Scale 1-3) Docusate Sodium (Docusate Sodium 100 Mg Capsule) 100 mg PO DAILY PRN PRN Reason: Constipation Ondansetron HCl (Ondansetron Hcl 4 Mg/2 Ml Vial) 4 mg IVPUSH Q8H PRN PRN Reason: Nausea and Vomiting Pharmacy Consult (Consult Rx Perform Med Rec) 1 each MISCELLANE ONCE PRN PRN Reason: Consult order Sodium Chloride (0.9 % Sodium Chloride Flush 3 Ml Syringe) 3 ml IVFLUSH [facility] Home Medications Medication Instructions Recorded Confirmed Last Taken Type bupropion HCl 200 mg tablet,12 hr 200 mg PO BID 01/11/20 05/27/22 05/27/22 History sustained-release (Wellbutrin SR) lamotrigine 200 mg tablet 200 mg PO DAILY 12/05/20 05/27/22 05/27/22 History montelukast 10 mg tablet 10 mg PO DAILY 12/05/20 05/27/22 05/27/22 History oxybutynin chloride 10 mg 10 mg PO DAILY 12/05/20 05/27/22 05/27/22 History tablet,extended release 24 hr lamotrigine 25 mg tablet 50 mg PO BEDTIME 06/07/21 05/27/22 05/27/22 History Physical Exam Vital Signs and Narrative: Vital Signs: Last Vital Signs Temp 98.9 F 05/27/22 21:35 Pulse 78 05/27/22 21:35 Resp 18 05/27/22 21:35 BP 154/67 H 05/27/22 21:35 Pulse Ox 98 05/27/22 21:35 O2 Del Method Room Air 05/27/22 21:35 BMI result Body Mass Index 24.8 Const: General: cooperative and no acute distress Orientation/consciousness: patient oriented x3 HEENT: Other: echymoses around left eye Eyes: General: appearance normal, both eyes and all related structures Pupils: Equal, round and reactive pupils present Resp: Other: no wheezing, no crackles Effort & Inspection: normal respiratory effort Auscultation: clear to auscultation bilaterally Cardio: Rate: regular rate Rhythm: regular rhythm GI: Palpation (GI): Soft to palpation Auscultation: normal bowel sounds Skin: Other: large hematome that extends from left thigh across the buttocks with echymoses that extends across her buttocks General skin exam: no rashes or lesions noted Neuro: General: patient oriented x3 Cranial nerves: Yes Equal, round and reactive pupils present Cognition (Neuro): normal cognition Extrem: Other: swelling on lateral left thigh General: Yes no pedal edema Results Labs 05/27/22 16:17 05/27/22 16:18 Labs: Laboratory Results - last 24 hr 05/27/22 05/27/22 05/27/22 16:17 16:17 16:17 MCV 76.0 L MCH 22.5 L MCHC 29.6 L RDW 17.8 H Plt Count 304 MPV 9.6 Immature Gran % (Auto) 0.6 H Neut % (Auto) 70.5 Lymph % (Auto) 18.3 L [place] % (Auto) 9.0 Eos % (Auto) 1.1 Baso % (Auto) 0.5 Lymph # (Auto) 1.5 [place] # (Auto) 0.7 Eos # (Auto) 0.1 Baso # (Auto) 0.0 Abs Immat Gran (auto) 0.05 H Absolute Neuts (auto) 5.7 Absolute Nucleated RBC 0.020 H Nucleated RBC % (auto) 0.2 Anion Gap Estim Creat Clear Calc Estimated GFR Random Glucose Calcium Magnesium Total Bilirubin AST ALT Alkaline Phosphatase Troponin I High Sens 7.9 B-Natriuretic Peptide 88 Total Protein Albumin Stool Occult Blood COVID-19 ([facility]O) COVID-19 Clin Com Blood Type Antibody Screen Crossmatch 05/27/22 05/27/22 05/27/22 16:17 16:18 17:21 MCV MCH MCHC RDW Plt Count MPV Immature Gran % (Auto) Neut % (Auto) Lymph % (Auto) [place] % (Auto) Eos % (Auto) Baso % (Auto) Lymph # (Auto) [place] # (Auto) Eos # (Auto) Baso # (Auto) Abs Immat Gran (auto) Absolute Neuts (auto) Absolute Nucleated RBC Nucleated RBC % (auto) Anion Gap 13 Estim Creat Clear Calc 62.7 Estimated GFR > 60 Random Glucose 98 Calcium 9.5 Magnesium 2.1 Total Bilirubin 0.6 AST 22 ALT 17 Alkaline Phosphatase 82 Troponin I High Sens B-Natriuretic Peptide Total Protein 5.9 L Albumin 3.6 Stool Occult Blood COVID-19 (ALVARO) Negative COVID-19 [employer] Com See Note Blood Type O Positive Antibody Screen NEGATIVE Crossmatch See Detail 05/27/22 17:21 MCV MCH MCHC RDW Plt Count MPV Immature Gran % (Auto) Neut % (Auto) Lymph % (Auto) [place] % (Auto) Eos % (Auto) Baso % (Auto) Lymph # (Auto) [place] # (Auto) Eos # (Auto) Baso # (Auto) Abs Immat Gran (auto) Absolute Neuts (auto) Absolute Nucleated RBC Nucleated RBC % (auto) Anion Gap Estim Creat Clear Calc Estimated GFR Random Glucose Calcium Magnesium Total Bilirubin AST ALT Alkaline Phosphatase Troponin I High Sens B-Natriuretic Peptide Total Protein Albumin Stool Occult Blood NEGATIVE COVID-19 ([facility]VARO) COVID-19 Clin Com Blood Type Antibody Screen Crossmatch Imaging Radiologist's Impressions: Impressions Chest X-Ray 05/27/22 16:36 IMPRESSION: No acute pulmonary disease. Abdomen/Pelvis CT 05/27/22 20:47 IMPRESSION: 1. Large left buttock hematoma. 2. Incidental note made of gastric surgery, colonic diverticulosis, pessary and severe degenerative changes in the spine and left hip. Fleischner guidelines were followed. Assessment and Plan (1) Acute anemia: Status: Acute (2) Traumatic hematoma of buttock: Status: Acute (3) Dyspnea: Status: Acute Plan 71-year-old female with past medical history of AFib on Eliquis presents the hospital with complaints of shortness of breath after experiencing a fall several days ago. Now found to have acute anemia as well as large hematoma # Acute Anemia - 2/2 acute hematoma in the setting of fall - drop of close to 4L - getting 2 units of prbc - will follow cbc # Hematoma - 2/2 mechanical fall - significantly large but appears stable - will consult general surgery for evaluation - follow cbc # Dyspnea - 2/2 acute anemia - no evidence of CHF, PNA or asthma exacerbation - no hypoxia - being transfussed with pRBC - monitor symptoms # A fib - on eliquis - rate controlled - given large hematoma with sgnificant GI bleed will hold next dose - can resume once evaluated by surgery - continue dilt for rate control # HTN - stable - continue dilt # Hx of asthma - not in exacerbation - continue home inhalers DVT ppx: SCDs Time Spent With Patient Time: Total time managing care of this patient today ____ minutes. Quality Stroke Does the patient have a stroke diagnosis?: No VTE Prior VTE?: No VTE Risk Level:: Medical - moderate - high VTE Device Contraindication: Treatment Not Indicated VTE Drug Contraindication: Treatment Not Indicated
[2022-05-27] MEDS: Apixaban 5 MG TABLET PO (22:57)
[2022-05-27] MEDS: guaiFENesin LA 600 MG TAB.ER.12H PO (22:57)
[2022-05-27] MEDS: lamoTRIgine 25 MG TABLET 50 MG PO (22:57)
[2022-05-27] MEDS: Albuterol Sulfate 90 MCG 8 GM INHALER 2 PUFF INHALE (22:57)
--- NOTE | 2022-05-27 23:12 | PC.NURSE ---
first blood transfusion completed with no issue, second transfusion starting now. Pt reports minor pain in left hip. Left hip and right hand have extensive bruising from fall pt had last week, bruising on left side of face around the eye is also bruised. Pt is calm and cooperative at this time, denies any complaints, no apparent distress, respirations even and unlabored. Continue plan of care to admit to the hospital for further observation
[2022-05-28] VITALS (8 sets, daily range): BP systolic 144–177; BP diastolic 66–89; PULSE 66–84; RESP 15–24; TEMP 36.2–37.2; O2SAT 93–97; BMI 26.6
--- NOTE | 2022-05-28 01:25 | PC.NURSE ---
pt moved into hospital bed for comfort, pt reports being much more comfortable at this time, offers no other complaints, second unit of blood almost complete at this time. No apparent distress, respirations even and unlabored, continue plan of care to admit for further observation
[2022-05-28] MEDS: Albuterol Sulfate (0.083%) 2.5 MG/3 ML VIAL.NEB INHALE (02:45)
--- NOTE | 2022-05-28 02:58 | PC.NURSE ---
second blood transfusion complete, no distress noted. Pt does report continued feeling of wheeziness with no relief from albuterol inhaler, MD Craven consulted and albuterol neb ordered and administered by respiratory
[2022-05-28] MEDS: Acetaminophen 325 MG TABLET 650 MG PO ×3 (04:19→21:50)
[2022-05-28 07:16] LABS: MANUAL DIFF FLAG NO
[2022-05-28 07:23] LABS: Basophils Absolute Auto 0.1 X10*3/uL (0.0-0.2); Basophils Percent Auto 0.6 % (0-2); Eosinophils Absolute Auto 0.1 X10*3/uL (0.0-0.4); Hematocrit 24.8 % (37.0-47.0); Hemoglobin 7.6 g/dl (12.0-16.0); Imm Gran Abs Auto 0.16 X10*3/uL (0.00-0.03); Imm Gran Pct Auto 1.8 % (0.0-0.4); Lymphocytes Absolute Auto 1.6 X10*3/uL (1.2-4.9); Lymphocytes Percent Auto 18.6 % (20-40); Mean Corpuscular HGB Conc 30.6 g/dl (31.0-35.0); Mean Corpuscular Volume 81.6 fL (80.0-98.0); Mean Platelet Volume 9.8 fL (9.4-12.3); Monocytes Absolute Auto 0.9 X10*3/uL (0.1-1.2); NRBC Pct Auto 0.8 /100WBC (0.0-0.2); Platelet Count 283 X10*3/uL (160-400); Red Blood Count 3.04 X10*6/uL (4.20-5.50); Red Cell Distribution Width 20.6 % (11.0-16.0); White Blood Count 8.8 X10*3/uL (4.8-10.8)
[2022-05-28 08:17] LABS: Anion Gap 10 (12-20); Blood Urea Nitrogen 12 mg/dL (9-16); Calcium 8.6 mg/dL (8.4-10.2); Carbon Dioxide 25 mmol/L (22-29); Chloride 110 mmol/L (96-108); Creatinine Clr Calc Pharmacy 62.1; Estimated Glomerular Filt Rate > 60; Glucose Random 135 mg/dL (60-115); Potassium 3.8 mmol/L (3.3-5.1); Sodium 141 mmol/L (135-145)
--- NOTE | 2022-05-28 08:44 | PHA.MEDREC ---
Pharmacy Consult ? Medication Reconciliation Pharmacy has completed the medication reconciliation.
[2022-05-28] MEDS: oxyBUTYnin chloride ER 5 MG TAB.ER.24 10 MG PO (09:27)
[2022-05-28] MEDS: lamoTRIgine 100 MG TABLET 200 MG PO (09:27)
[2022-05-28] MEDS: Omeprazole 20 MG CAPSULE.DR PO (09:28)
[2022-05-28] MEDS: buPROPion HCl XL 150 MG TAB.ER.24H PO (09:28)
[2022-05-28] MEDS: Digoxin 0.125 MG TABLET PO (09:28)
[2022-05-28] MEDS: dilTIAZem HCL CD 240 MG CAP.ER.DEG PO (09:28)
[2022-05-28] MEDS: Montelukast Sodium 10 MG TABLET PO (09:29)
[2022-05-28] MEDS: buPROPion HCl XL 300 MG TAB.ER.24H PO (09:29)
--- NOTE | 2022-05-28 11:56 | MHC.CM.PN ---
met with pt and both are inde[edent and had no previous servceis and do not anticipate needing servceis when dcd pt has ride home is sigifredo vax x 5
--- NOTE | 2022-05-28 12:01 | HO.PM.IMPN ---
Subjective Subjective Date of Service: 05/28/22 Interval History: Feels better already, less dizziness Hb improved to 7.6 after 2 units transfusion No other overnight events Review of Systems Review of Systems: Yes all other systems are reviewed and are negative Physical Exam Vital Signs: Vital Signs: Last Vital Signs Temp 97.1 F 05/28/22 07:36 Pulse 74 05/28/22 11:23 Resp 24 H 05/28/22 11:23 BP 172/74 H 05/28/22 11:23 Pulse Ox 96 05/28/22 11:23 O2 Del Method Room Air 05/28/22 11:23 BMI result Body Mass Index 26.6 Const: Other: Constitutional : Awake, interactive, not in distress Neck : Normal inspection, Supple Cardiovascular : RRR, no JVP, no lower extremity edema Respiratory : good bilateral air entry, no crackles, wheezes or rhonchi Gastrointestinal: soft, lax, Normal bowel sounds, Non tender Skin : Warm, Dry, left sided facial brusing, left buttock hematoma Neurological : Alert & oriented x3, No focal deficit Objective Data Active Medications Acetaminophen (Acetaminophen 325 Mg Tablet) 650 mg PO Q6H PRN PRN Reason: Pain, Mild (Pain Scale 1-3) Last Admin: 05/28/22 04:19 Dose: 650 mg Documented By: ANGELINE Albuterol Sulfate (Albuterol Sulfate 90 Mcg 8 Gm Inhaler) 2 puff INHALE Q4H PRN PRN Reason: shortness of breath or wheezing Last Admin: 05/27/22 22:57 Dose: 2 puff Documented By: DANIELA Bupropion HCl (Bupropion Hcl Xl 300 Mg Tab.Er.24h) 300 mg PO DAILY [facility] Last Admin: 05/28/22 09:29 Dose: 300 mg Documented By: CELESTE-SOFTRINITY Bupropion HCl (Bupropion Hcl Xl 150 Mg Tab.Er.24h) 150 mg PO DAILY [facility] Last Admin: 05/28/22 09:28 Dose: 150 mg Documented By: CELESTE-BEE Digoxin (Digoxin 0.125 Mg Tablet) 0.125 mg PO DAILY [facility] Last Admin: 05/28/22 09:28 Dose: 0.125 mg Documented By: SALVADOR Diltiazem HCl (Diltiazem Hcl Cd 240 Mg Cap.Er.Deg) 240 mg PO DAILY [facility]; Protocol Last Admin: 05/28/22 09:28 Dose: 240 mg Documented By: SALVADOR Docusate Sodium (Docusate Sodium 100 Mg Capsule) 100 mg PO DAILY PRN PRN Reason: Constipation Fluticasone/Vilanterol (Fluticasone/Vilanterol 200/25 Blst.W.Dev) 1 puff [facility]ALE [facility] Guaifenesin (Guaifenesin La 600 Mg Tab.Er.12h) 600 mg PO BID PRN PRN Reason: nasal congestion Last Admin: 05/27/22 22:57 Dose: 600 mg Documented By: DANIELA Lamotrigine (Lamotrigine 25 Mg Tablet) 50 mg PO BEDTIME [facility] Last Admin: 05/27/22 22:57 Dose: 50 mg Documented By: DANIELA Lamotrigine (Lamotrigine 100 Mg Tablet) 200 mg PO DAILY [facility] Last Admin: 05/28/22 09:27 Dose: 200 mg Documented By: SALVADOR Montelukast Sodium (Montelukast Sodium 10 Mg Tablet) 10 mg PO DAILY [facility] Last Admin: 05/28/22 09:29 Dose: 10 mg Documented By: SALVADOR Omeprazole (Omeprazole 20 Mg Capsule.Dr) 20 mg PO DAILY@0630 [facility] Last Admin: 05/28/22 09:28 Dose: 20 mg Documented By: SALVADOR Ondansetron HCl (Ondansetron Hcl 4 Mg/2 Ml Vial) 4 mg IVPUSH Q8H PRN PRN Reason: Nausea and Vomiting Oxybutynin Chloride (Oxybutynin Chloride Er 5 Mg Tab.Er.24) 10 mg PO DAILY [facility] Last Admin: 05/28/22 09:27 Dose: 10 mg Documented By: SALVADOR Pharmacy Consult (Consult Rx Perform Med Rec) 1 each MISCELLANE ONCE PRN PRN Reason: Consult order Sodium Chloride (0.9 % Sodium Chloride Flush 3 Ml Syringe) 3 ml IVFLUSH QSHIFT [facility] Last Admin: 05/28/22 07:20 Dose: Not Given Documented By: SALVADOR Non-Admin Reason: See Note Tiotropium Mooers (Tiotropium Mooers 18 Mcg Cap.W.Dev) 1 puff INHALE RDAILY [facility] Labs 05/28/22 06:10 05/28/22 06:10 Labs: Laboratory Results - last 24 hr 05/27/22 05/27/22 05/27/22 16:17 16:17 16:17 MCV 76.0 L MCH 22.5 L MCHC 29.6 L RDW 17.8 H Plt Count 304 MPV 9.6 Immature Gran % (Auto) 0.6 H Neut % (Auto) 70.5 Lymph % (Auto) 18.3 L [place] % (Auto) 9.0 Eos % (Auto) 1.1 Baso % (Auto) 0.5 Lymph # (Auto) 1.5 [place] # (Auto) 0.7 Eos # (Auto) 0.1 Baso # (Auto) 0.0 Abs Immat Gran (auto) 0.05 H Absolute Neuts (auto) 5.7 Absolute Nucleated RBC 0.020 H Nucleated RBC % (auto) 0.2 Anion Gap Estim Creat Clear Calc Estimated GFR Random Glucose Calcium Magnesium Total Bilirubin AST ALT Alkaline Phosphatase Troponin I High Sens 7.9 B-Natriuretic Peptide 88 Total Protein Albumin Stool Occult Blood COVID-19 ([facility]O) [facility] Clin Com Blood Type Antibody Screen Crossmatch 05/27/22 05/27/22 05/27/22 16:17 16:18 17:21 MCV MCH MCHC RDW Plt Count MPV Immature Gran % (Auto) Neut % (Auto) Lymph % (Auto) [place] % (Auto) Eos % (Auto) Baso % (Auto) Lymph # (Auto) [place] # (Auto) Eos # (Auto) Baso # (Auto) Abs Immat Gran (auto) Absolute Neuts (auto) Absolute Nucleated RBC Nucleated RBC % (auto) Anion Gap 13 Estim Creat Clear Calc 62.7 Estimated GFR > 60 Random Glucose 98 Calcium 9.5 Magnesium 2.1 Total Bilirubin 0.6 AST 22 ALT 17 Alkaline Phosphatase 82 Troponin I High Sens B-Natriuretic Peptide Total Protein 5.9 L Albumin 3.6 Stool Occult Blood COVID-19 ([facility]VARO) Negative [facility] Clin Com See Note Blood Type O Positive Antibody Screen NEGATIVE Crossmatch See Detail 05/27/22 05/28/22 05/28/22 17:21 06:10 06:10 MCV 81.6 D MCH 25.0 L MCHC 30.6 L RDW 20.6 H Plt Count 283 MPV 9.8 Immature Gran % (Auto) 1.8 H Neut % (Auto) 68.0 Lymph % (Auto) 18.6 L [place] % (Auto) 10.0 Eos % (Auto) 1.0 Baso % (Auto) 0.6 Lymph # (Auto) 1.6 [place] # (Auto) 0.9 Eos # (Auto) 0.1 Baso # (Auto) 0.1 Abs Immat Gran (auto) 0.16 H Absolute Neuts (auto) 6.0 Absolute Nucleated RBC 0.070 H Nucleated RBC % (auto) 0.8 H Anion Gap 10 L Estim Creat Clear Calc 62.1 Estimated GFR > 60 Random Glucose 135 H Calcium 8.6 D Magnesium Total Bilirubin AST ALT Alkaline Phosphatase Troponin I High Sens B-Natriuretic Peptide Total Protein Albumin Stool Occult Blood NEGATIVE COVID-19 ([facility]) COVID-19 Clin Com Blood Type Antibody Screen Crossmatch Assessment and Plan (1) Traumatic hematoma of buttock: Status: Acute (2) Acute anemia: Status: Acute Plan 71-year-old female with past medical history of AFib on Eliquis presents the hospital with complaints of shortness of breath after experiencing a fall several days ago. Now found to have acute anemia as well as large hematoma # Acute symptomatic Anemia 2/2 acute hematoma in the setting of fall Improved to 7.6 after 2 units transfusion follow cbc # Hematoma 2/2 mechanical fall significantly large but appears stable general surgery consult follow cbc # Dyspnea 2/2 acute anemia improved after transfusion # A fib Hold eliquis rate controlled continue Cardizem for rate control # HTN continue dilt # Hx of paroxysmal intermittent asthma not in exacerbation continue home inhalers DVT ppx: SCDs Will need overnight hospital stay for monitoring of blood level pending surgery evaluation Time Spent With Patient Time: Total time managing care of this patient today ____ minutes. Quality Stroke Does the patient have a stroke diagnosis?: No VTE Prior VTE?: No VTE Risk Level:: Medical - moderate - high VTE Device Contraindication: Treatment Not Indicated VTE Drug Contraindication: Treatment Not Indicated
[2022-05-28] MEDS: guaiFENesin LA 600 MG TAB.ER.12H PO (13:04)
[2022-05-28 14:21] LABS: Hematocrit 27.7 % (37.0-47.0); Hemoglobin 8.6 g/dl (12.0-16.0); Mean Corpuscular Hemoglobin 25.2 pg (27.0-33.0); Mean Corpuscular Volume 81.2 fL (80.0-98.0); Mean Platelet Volume 9.3 fL (9.4-12.3); NRBC Pct Auto 0.9 /100WBC (0.0-0.2); Platelet Count 290 X10*3/uL (160-400); Red Blood Count 3.41 X10*6/uL (4.20-5.50); Red Cell Distribution Width 20.5 % (11.0-16.0); White Blood Count 9.1 X10*3/uL (4.8-10.8)
--- NOTE | 2022-05-28 14:33 | PC.NURSE ---
informed md of pt's BP, no new orders at this time
--- NOTE | 2022-05-28 14:54 | PM.CNGS ---
History of Present Illness Consult details Consult date: 05/28/22 Narrative: Patient is a 71-year-old female who sustained a fall on Thursday while on Eliquis anticoagulation. She was initially evaluated emergency department was discharged but returned because of new onset progressive AFib and anemia. Chart was reviewed and patient evaluated [facility] Past Medical History Medical History Asthma Atrial fibrillation, new onset Hypertension Loculated pleural effusion MSSA bacteremia UTI (urinary tract infection) Surgical History Surgical History History of total left hip arthroplasty History of total right hip arthroplasty S/P laparoscopic sleeve gastrectomy Social History Social History (System 05/28/22 @ 06:59 by Irina Simental) Household Members: Spouse Household Members Other:: Danny Housing: House Do you presently have visiting nurse or other home services: No Alcohol intake: never Patient Tobacco Use Status: Former Tobacco user Quit Date: 30 years ago Tobacco use type: Cigarette Years Smoked: 16 years Second Hand Smoke Exposure: No service: No 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al status: retired 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 Allergies Allergy/AdvReac Type Severity Reaction Status Date / Time No Known Allergies Allergy Verified 05/28/22 06:59 [No Known Allergies*] Active Medications: Current Medications Acetaminophen (Acetaminophen 325 Mg Tablet) 650 mg PO Q6H PRN PRN Reason: Pain, Mild (Pain Scale 1-3) Last Admin: 05/28/22 13:04 Dose: 650 mg Albuterol Sulfate (Albuterol Sulfate 90 Mcg 8 Gm Inhaler) 2 puff INHALE Q4H PRN PRN Reason: shortness of breath or wheezing Last Admin: 05/27/22 22:57 Dose: 2 puff Bupropion HCl (Bupropion Hcl Xl 300 Mg Tab.Er.24h) 300 mg PO DAILY JAKY Last Admin: 05/28/22 09:29 Dose: 300 mg Bupropion HCl (Bupropion Hcl Xl 150 Mg Tab.Er.24h) 150 mg PO DAILY JAKY Last Admin: 05/28/22 09:28 Dose: 150 mg Digoxin (Digoxin 0.125 Mg Tablet) 0.125 mg PO DAILY [facility] Last Admin: 05/28/22 09:28 Dose: 0.125 mg Diltiazem HCl (Diltiazem Hcl Cd 240 Mg Cap.Er.Deg) 240 mg PO DAILY [facility]; Protocol Last Admin: 05/28/22 09:28 Dose: 240 mg Docusate Sodium (Docusate Sodium 100 Mg Capsule) 100 mg PO DAILY PRN PRN Reason: Constipation Fluticasone/Vilanterol (Fluticasone/Vilanterol 200/25 Blst.W.Dev) 1 puff INHALE RDAILY [facility] Guaifenesin (Guaifenesin La 600 Mg Tab.Er.12h) 600 mg PO BID PRN PRN Reason: nasal congestion Last Admin: 05/28/22 13:04 Dose: 600 mg Lamotrigine (Lamotrigine 25 Mg Tablet) 50 mg PO BEDTIME [facility] Last Admin: 05/27/22 22:57 Dose: 50 mg Lamotrigine (Lamotrigine 100 Mg Tablet) 200 mg PO DAILY [facility] Last Admin: 05/28/22 09:27 Dose: 200 mg Montelukast Sodium (Montelukast Sodium 10 Mg Tablet) 10 mg PO DAILY [facility] Last Admin: 05/28/22 09:29 Dose: 10 mg Omeprazole (Omeprazole 20 Mg Capsule.Dr) 20 mg PO DAILY@0630 [facility] Last Admin: 05/28/22 09:28 Dose: 20 mg Ondansetron HCl (Ondansetron Hcl 4 Mg/2 Ml Vial) 4 mg IVPUSH Q8H PRN PRN Reason: Nausea and Vomiting Oxybutynin Chloride (Oxybutynin Chloride Er 5 Mg Tab.Er.24) 10 mg PO DAILY [facility] Last Admin: 05/28/22 09:27 Dose: 10 mg Pharmacy Consult (Consult Rx Perform Med Rec) 1 each MISCELLANE ONCE PRN PRN Reason: Consult order Sodium Chloride (0.9 % Sodium Chloride Flush 3 Ml Syringe) 3 ml IVFLUSH QSHIFT [facility] Last Admin: 05/28/22 13:51 Dose: Not Given Tiotropium [address] (Tiotropium [address] 18 Mcg Cap.W.Dev) 1 puff INHALE RDAILY [facility] Home Medications Medication Instructions Recorded Confirmed Last Taken Type pantoprazole 40 mg tablet,delayed 40 mg PO DAILY 01/10/20 05/28/22 Unknown History release bupropion HCl 200 mg tablet,12 hr 200 mg PO BID 01/11/20 05/27/22 05/27/22 History sustained-release (Wellbutrin SR) lamotrigine 200 mg tablet 200 mg PO DAILY 12/05/20 05/27/22 05/27/22 History montelukast 10 mg tablet 10 mg PO DAILY 12/05/20 05/27/22 05/27/22 History oxybutynin chloride 10 mg 10 mg PO DAILY 12/05/20 05/27/22 05/27/22 History tablet,extended release 24 hr lamotrigine 25 mg tablet 50 mg PO BEDTIME 06/07/21 05/27/22 05/27/22 History diltiazem HCl 360 mg 360 mg PO DAILY 05/28/22 05/28/22 Unknown History capsule,extended release 24 hr Physical Exam Vital Signs: Vital Signs: Last Vital Signs Temp 97.1 F 05/28/22 07:36 Pulse 74 05/28/22 11:23 Resp 24 H 05/28/22 11:23 BP 172/74 H 05/28/22 11:23 Pulse Ox 96 05/28/22 11:23 O2 Del Method Room Air 05/28/22 11:23 BMI result Body Mass Index 26.6 Back/Spine/Pelvis: Other: Patient has multiple bruises and ecchymosis involving head neck left back and flank. There is a moderate-sized left flank/buttock hematoma which is apparently stable and by gravity is working down to her left thigh. Results Labs 05/28/22 14:14 05/28/22 06:10 Labs: Abnormal lab results 05/27/22 05/27/22 05/27/22 Range/Units 16:17 16:18 17:21 RBC 2.67 L D (4.20-5.50) X10*6/uL Hgb 6.0 L* D (12.0-16.0) g/dl Hct 20.3 L* D (37.0-47.0) % MCV 76.0 L (80.0-98.0) fL MCH 22.5 L (27.0-33.0) pg MCHC 29.6 L (31.0-35.0) g/dl RDW 17.8 H (11.0-16.0) % MPV (9.4-12.3) fL Immature Gran % (Auto) 0.6 H (0.0-0.4) % Lymph % (Auto) 18.3 L (20-40) % Abs Immat Gran (auto) 0.05 H (0.00-0.03) X10*3/uL Absolute Nucleated RBC 0.020 H (0.0-0.012) X10*3/uL Nucleated RBC % (auto) (0.0-0.2) /100WBC Chloride (96-108) mmol/L Anion Gap (12-20) Random Glucose (60-115) mg/dL Total Protein 5.9 L (6.5-8.0) g/dL Crossmatch See Detail 05/28/22 05/28/22 05/28/22 Range/Units 06:10 06:10 14:14 RBC 3.04 L 3.41 L (4.20-5.50) X10*6/uL Hgb 7.6 L D 8.6 L (12.0-16.0) g/dl Hct 24.8 L D 27.7 L (37.0-47.0) % MCV (80.0-98.0) fL MCH 25.0 L 25.2 L (27.0-33.0) pg MCHC 30.6 L (31.0-35.0) g/dl RDW 20.6 H 20.5 H (11.0-16.0) % MPV 9.3 L (9.4-12.3) fL Immature Gran % (Auto) 1.8 H (0.0-0.4) % Lymph % (Auto) 18.6 L (20-40) % Abs Immat Gran (auto) 0.16 H (0.00-0.03) X10*3/uL Absolute Nucleated RBC 0.070 H 0.080 H (0.0-0.012) X10*3/uL Nucleated RBC % (auto) 0.8 H 0.9 H (0.0-0.2) /100WBC Chloride 110 H (96-108) mmol/L Anion Gap 10 L (12-20) Random Glucose 135 H (60-115) mg/dL Total Protein (6.5-8.0) g/dL Crossmatch Short CBC 05/27/22 05/28/22 05/28/22 Range/Units 16:17 06:10 14:14 WBC 8.1 8.8 9.1 (4.8-10.8) X10*3/uL Hgb 6.0 L* D 7.6 L D 8.6 L (12.0-16.0) g/dl Hct 20.3 L* D 24.8 L D 27.7 L (37.0-47.0) % Plt Count 304 283 290 (160-400) X10*3/uL BMP 05/27/22 05/28/22 16:18 06:10 Sodium 141 141 Potassium 4.5 3.8 Chloride 107 110 H Carbon Dioxide 26 25 BUN 16 12 Creatinine 0.71 0.74 Calcium 9.5 8.6 D Liver Function 05/27/22 Range/Units 16:18 Total Bilirubin 0.6 (0.0-1.0) mg/dL AST 22 (5-31) U/L ALT 17 (0-31) U/L Alkaline Phosphatase 82 (39-117) U/L Albumin 3.6 (3.5-5.0) g/dL All other labs normal. Assessment and Plan (1) Traumatic hematoma of buttock: Status: Acute Plan At present, patient is hemodynamically stable. Resolving ecchymosis/hematoma. Anticoagulation is being held. No acute surgical issues at this time. Follow up p.r.n. Time Spent With Patient Time: Total time managing care of this patient today ____ minutes. Procedures Date of Service Date of Service: 05/28/22
[2022-05-28] MEDS: Albuterol Sulfate 90 MCG 8 GM INHALER 2 PUFF INHALE ×2 (18:41→21:26)
[2022-05-28] MEDS: lamoTRIgine 25 MG TABLET 50 MG PO ×2 (21:35→22:16)
[2022-05-28] MEDS: 0.9 % Sodium Chloride Flush 3 ML SYRINGE IVFLUSH (21:50)
[2022-05-29 04:28] VITALS: BP 145/67; PULSE 68; RESP 16; TEMP 36.6; O2SAT 94
[2022-05-29] MEDS: Omeprazole 20 MG CAPSULE.DR PO (06:04)
[2022-05-29] MEDS: Acetaminophen 325 MG TABLET 650 MG PO ×2 (06:07→17:20)
[2022-05-29 06:18] LABS: Hematocrit 26.7 % (37.0-47.0); Hemoglobin 8.2 g/dl (12.0-16.0); Mean Corpuscular HGB Conc 30.7 g/dl (31.0-35.0); Mean Corpuscular Hemoglobin 25.2 pg (27.0-33.0); Mean Corpuscular Volume 81.9 fL (80.0-98.0); Mean Platelet Volume 9.8 fL (9.4-12.3); NRBC Pct Auto 0.6 /100WBC (0.0-0.2); Platelet Count 292 X10*3/uL (160-400); Red Blood Count 3.26 X10*6/uL (4.20-5.50); Red Cell Distribution Width 20.7 % (11.0-16.0)
[2022-05-29 06:56] LABS: Anion Gap 12 (12-20); Blood Urea Nitrogen 7 mg/dL (9-16); Calcium 8.9 mg/dL (8.4-10.2); Carbon Dioxide 27 mmol/L (22-29); Chloride 110 mmol/L (96-108); Creatinine Clr Calc Pharmacy 67.6; Estimated Glomerular Filt Rate > 60; Glucose Random 76 mg/dL (60-115); Potassium 4.1 mmol/L (3.3-5.1); Sodium 145 mmol/L (135-145)
[2022-05-29 07:56] VITALS: BP 164/70; PULSE 66; RESP 18; TEMP 36.5; O2SAT 95
[2022-05-29] MEDS: Digoxin 0.125 MG TABLET PO (08:30)
[2022-05-29] MEDS: oxyBUTYnin chloride ER 5 MG TAB.ER.24 10 MG PO (08:31)
[2022-05-29] MEDS: lamoTRIgine 100 MG TABLET 200 MG PO (08:32)
[2022-05-29] MEDS: Montelukast Sodium 10 MG TABLET PO (08:32)
--- NOTE | 2022-05-29 08:50 | P.PNIM_ITS ---
Subjective Subjective Date of Service: 05/29/22 Interval History: Feels better already, less dizziness Hb improved to 8.2 after 2 units transfusion No other overnight events Review of Systems Review of Systems: Yes all other systems are reviewed and are negative Physical Exam Vital Signs: Vital Signs: Last Vital Signs Temp 97.7 F 05/29/22 07:56 Pulse 66 05/29/22 07:56 Resp 18 05/29/22 07:56 BP 164/70 H 05/29/22 07:56 Pulse Ox 95 05/29/22 07:56 O2 Del Method Room Air 05/29/22 07:56 BMI result Body Mass Index 26.6 Const: Other: Constitutional : Awake, interactive, not in distress Neck : Normal inspection, Supple Cardiovascular : RRR, no JVP, no lower extremity edema Respiratory : good bilateral air entry, no crackles, wheezes or rhonchi Gastrointestinal: soft, lax, Normal bowel sounds, Non tender Skin : Warm, Dry, left sided facial brusing, left buttock hematoma Neurological : Alert & oriented x3, No focal deficit Objective Data Active Medications Acetaminophen (Acetaminophen 325 Mg Tablet) 650 mg PO Q6H PRN PRN Reason: Pain, Mild (Pain Scale 1-3) Last Admin: 05/29/22 06:07 Dose: 650 mg Documented By: ANGELINE Albuterol Sulfate (Albuterol Sulfate 90 Mcg 8 Gm Inhaler) 2 puff INHALE Q4H PRN PRN Reason: shortness of breath or wheezing Last Admin: 05/28/22 21:26 Dose: 2 puff Documented By: DOROTEO Benzonatate (Benzonatate 100 Mg Capsule) 100 mg PO TID PRN PRN Reason: Cough Bupropion HCl (Bupropion Hcl Xl 300 Mg Tab.Er.24h) 300 mg PO DAILY [facility] Last Admin: 05/28/22 09:29 Dose: 300 mg Documented By: CELESTE-SOFFA Bupropion HCl (Bupropion Hcl Xl 150 Mg Tab.Er.24h) 150 mg PO DAILY [facility] Last Admin: 05/28/22 09:28 Dose: 150 mg Documented By: CELESTE-BEE Digoxin (Digoxin 0.125 Mg Tablet) 0.125 mg PO DAILY [facility] Last Admin: 05/29/22 08:30 Dose: 0.125 mg Documented By: ZAYDA Diltiazem HCl (Diltiazem Hcl Cd 240 Mg Cap.Er.Deg) 240 mg PO DAILY [facility]; Protocol Last Admin: 05/28/22 09:28 Dose: 240 mg Documented By: CELESTE-SOFFA Docusate Sodium (Docusate Sodium 100 Mg Capsule) 100 mg PO DAILY PRN PRN Reason: Constipation Fluticasone/Vilanterol (Fluticasone/Vilanterol 200/25 Blst.W.Dev) 1 puff INHALE RDAILY [facility] Last Admin: 05/29/22 07:57 Dose: Not Given Documented By: DAYANA Non-Admin Reason: Med Not Available Guaifenesin (Guaifenesin La 600 Mg Tab.Er.12h) 600 mg PO BID PRN PRN Reason: nasal congestion Last Admin: 05/28/22 13:04 Dose: 600 mg Documented By: RONNELL Lamotrigine (Lamotrigine 100 Mg Tablet) 200 mg PO DAILY [facility] Last Admin: 05/29/22 08:32 Dose: 200 mg Documented By: ZAYDA Lamotrigine (Lamotrigine 100 Mg Tablet) 100 mg PO BEDTIME [facility] Montelukast Sodium (Montelukast Sodium 10 Mg Tablet) 10 mg PO DAILY [facility] Last Admin: 05/29/22 08:32 Dose: 10 mg Documented By: ZAYDA Omeprazole (Omeprazole 20 Mg Capsule.Dr) 20 mg PO DAILY@0630 [facility] Last Admin: 05/29/22 06:04 Dose: 20 mg Documented By: ANGELINE Ondansetron HCl (Ondansetron Hcl 4 Mg/2 Ml Vial) 4 mg IVPUSH Q8H PRN PRN Reason: Nausea and Vomiting Oxybutynin Chloride (Oxybutynin Chloride Er 5 Mg Tab.Er.24) 10 mg PO DAILY [facility] Last Admin: 05/29/22 08:31 Dose: 10 mg Documented By: ZAYDA Pharmacy Consult (Consult Rx Perform Med Rec) 1 each MISCELLANE ONCE PRN PRN Reason: Consult order Sodium Chloride (0.9 % Sodium Chloride Flush 3 Ml Syringe) 3 ml IVFLUSH QSHIFT [facility] Last Admin: 05/28/22 21:50 Dose: 3 ml Documented By: ANGELINE Tiotropium [place] (Tiotropium [place] 18 Mcg Cap.W.Dev) 1 puff INHALE RDAILY [facility] Last Admin: 05/29/22 07:57 Dose: Not Given Documented By: DAYANA Non-Admin Reason: Med Not Available Labs 05/29/22 05:20 05/29/22 05:20 Labs: Laboratory Results - last 24 hr 05/28/22 05/29/22 05/29/22 14:14 05:20 05:20 MCV 81.2 81.9 MCH 25.2 L 25.2 L MCHC 31.0 30.7 L RDW 20.5 H 20.7 H Plt Count 290 292 MPV 9.3 L 9.8 Absolute Nucleated RBC 0.080 H 0.050 H Nucleated RBC % (auto) 0.9 H 0.6 H Anion Gap 12 Estim Creat Clear Calc 67.6 Estimated GFR > 60 Random Glucose 76 Calcium 8.9 Assessment and Plan (1) Acute anemia: Status: Acute (2) Traumatic hematoma of buttock: Status: Acute Plan 71-year-old female with past medical history of AFib on Eliquis presents the hospital with complaints of shortness of breath after experiencing a fall jerry ral days ago. Now found to have acute anemia as well as large hematoma # Acute symptomatic Anemia 2/2 acute hematoma in the setting of fall Improved to 8.2 after 2 units transfusion follow cbc # Hematoma 2/2 mechanical fall significantly large but appears stable general surgery input appreciated, no intervention needed, monitor follow cbc # Dyspnea 2/2 acute anemia improved after transfusion # A fib Hold eliquis, to discuss with surgery best timing to restart it rate controlled continue Cardizem for rate control # HTN continue dilt # Hx of paroxysmal intermittent asthma not in exacerbation continue home inhalers DVT ppx: SCDs Will need overnight hospital stay for monitoring of blood level for large hematoma on blood thinners Time Spent With Patient Time: Total time managing care of this patient today ____ minutes. Quality Stroke Does the patient have a stroke diagnosis?: No VTE Prior VTE?: No VTE Risk Level:: Medical - moderate - high VTE Device Contraindication: Treatment Not Indicated VTE Drug Contraindication: Treatment Not Indicated
[2022-05-29] MEDS: dilTIAZem HCL CD 180 MG CAP.ER.24H 360 MG PO (09:20)
[2022-05-29] MEDS: 0.9 % Sodium Chloride Flush 3 ML SYRINGE IVFLUSH ×3 (09:22→20:36)
[2022-05-29] MEDS: guaiFENesin LA 600 MG TAB.ER.12H PO ×2 (09:25→20:34)
[2022-05-29] MEDS: buPROPion HCl XL 300 MG TAB.ER.24H PO (11:12)
[2022-05-29] MEDS: buPROPion HCl XL 150 MG TAB.ER.24H PO (11:12)
[2022-05-29 16:26] VITALS: BP 148/65; PULSE 61; RESP 20; TEMP 36.8; O2SAT 97
[2022-05-29 19:43] VITALS: BP 169/72; PULSE 84; RESP 17; TEMP 36.3; O2SAT 96
[2022-05-29 20:29] VITALS: PULSE 84; RESP 16; O2SAT 96
[2022-05-29] MEDS: Albuterol Sulfate 90 MCG 8 GM INHALER 2 PUFF INHALE ×2 (20:29→23:40)
[2022-05-29] MEDS: lamoTRIgine 100 MG TABLET PO (20:32)
[2022-05-29] MEDS: Benzonatate 100 MG CAPSULE PO (23:32)
[2022-05-29 23:44] VITALS: PULSE 89; RESP 16; O2SAT 95
[2022-05-30 03:29] VITALS: BP 137/65; PULSE 62; RESP 15; TEMP 36.7; O2SAT 93
[2022-05-30] MEDS: Acetaminophen 325 MG TABLET 650 MG PO (04:13)
[2022-05-30] MEDS: Omeprazole 20 MG CAPSULE.DR PO (05:33)
[2022-05-30 06:44] LABS: Hematocrit 30.4 % (37.0-47.0); Hemoglobin 9.3 g/dl (12.0-16.0); Mean Corpuscular HGB Conc 30.6 g/dl (31.0-35.0); Mean Corpuscular Hemoglobin 25.3 pg (27.0-33.0); Mean Corpuscular Volume 82.6 fL (80.0-98.0); Mean Platelet Volume 9.7 fL (9.4-12.3); NRBC Pct Auto 0.6 /100WBC (0.0-0.2); Platelet Count 330 X10*3/uL (160-400); Red Blood Count 3.68 X10*6/uL (4.20-5.50); Red Cell Distribution Width 21.5 % (11.0-16.0); White Blood Count 8.6 X10*3/uL (4.8-10.8)
[2022-05-30 07:03] LABS: Anion Gap 11 (12-20); Blood Urea Nitrogen 9 mg/dL (9-16); Carbon Dioxide 27 mmol/L (22-29); Chloride 107 mmol/L (96-108); Creatinine Clr Calc Pharmacy 67.6; Estimated Glomerular Filt Rate > 60; Glucose Random 79 mg/dL (60-115); Potassium 3.7 mmol/L (3.3-5.1); Sodium 141 mmol/L (135-145)
[2022-05-30 07:51] VITALS: BP 145/86; PULSE 60; RESP 18; TEMP 36.4; O2SAT 94
[2022-05-30] MEDS: Albuterol Sulfate 90 MCG 8 GM INHALER 2 PUFF INHALE (08:02)
[2022-05-30 08:08] VITALS: PULSE 63; RESP 16; O2SAT 98
[2022-05-30] MEDS: dilTIAZem HCL CD 180 MG CAP.ER.24H 360 MG PO (08:33)
[2022-05-30] MEDS: Digoxin 0.125 MG TABLET PO (08:34)
[2022-05-30] MEDS: oxyBUTYnin chloride ER 5 MG TAB.ER.24 10 MG PO (08:34)
[2022-05-30] MEDS: lamoTRIgine 100 MG TABLET 200 MG PO (08:35)
[2022-05-30] MEDS: buPROPion HCl XL 300 MG TAB.ER.24H PO (08:36)
[2022-05-30] MEDS: Montelukast Sodium 10 MG TABLET PO (08:36)
[2022-05-30] MEDS: buPROPion HCl XL 150 MG TAB.ER.24H PO (08:36)
--- NOTE | 2022-05-30 09:23 | PM.DS ---
DS: Providers Provider Date of Service: 05/30/22 Date of admission: 05/27/22 21:56 Primary care physician: Eddie Messina MD Consults: 05/27/22 21:56 Consult to General Surgery Routine Consulting Provider: [facility] [place] General Surgeons Reason for consultation: hematoma Has provider been notified: No DS: Diagnosis Discharge Diagnosis (1) Acute anemia: Status: Resolved (2) Traumatic hematoma of buttock: Status: Acute DS: Summary Hospital Course Hospital Course: Chief Complaint: sob In 1-year-old female with past medical history of asthma, AFib on Eliquis, hypertension, recent fall on Thursday comes into the hospital with complaints of shortness of breath.? Patient reports that she was evaluated in the ED on Thursday for the fall, the fall was mechanical, she had bleed from the head, she was evaluated, and cleared was discharge but returns today stating shortness of breath, chronic cough that has not worsened, no wheezing, no lower extremity edema, no orthopnea or PND.? She chronically uses 3 pillows to sleep on and has never laid flat on her bed. She denies any nausea vomiting, no abdominal pain, no diarrhea constipation, no urinary symptoms.? Denies any melena, hematochezia, hematemesis or hemoptysis On arrival to the ED patient found to have blood pressure 120/99, satting 99% on room air.? otherwise stable ' Labs are found to be significant for WBC count of 8.1, hemoglobin of 6 which dropped from 10.9 from 04/18, platelet count of 304, labs otherwise unremarkable.? BNP 88, Trop negative Abdominal pelvis CT shows 9.7 x 3.2 x 16.3 cm hematoma in the left buttock.? According to the patient it has improved today when compared to yesterday. Patient being transfused unit of PRBC, Patient will be admitted for further evaluation Hospital course: She presented with shortness of breath and found to have profound anemia with Hgb of 6 in related to a fall with large buttock hematoma while on Eliquis. Her shortness of breath has resolved with transfusion, Acute blood loss anemia is improved with transfusion of 2 units of RBC and H/H has been stable. Presently hemoglobin 9.3 from 6 on admission, baselin is around 10. For the hamtoma, this was evaluated by surgery (Dr. Campos) with no indication for surgery and since H/H has been stable and no sings of active bleed, will resume Eliquis cautiously and monitor for sings of worsening of hematoma and H/H. Final diagnoses: 1 acute bloood loss anemia 2 Dyspnea d/t anemia 3 buttock hematoma Time Spent with Patient Time attestation: Total time managing care of this patient today ____ minutes. Discharge coordination time: Greater than 30 minutes Quality: Safe Use of Opioids Does Pt have an Active Cancer Diagnosis on the Problem List?: No Quality: Stroke Does the patient have a stroke diagnosis?: No Physical Exam Vital Signs: Vital Signs: Last Vital Signs Temp 97.5 F 05/30/22 07:51 Pulse 63 05/30/22 08:08 Resp 16 05/30/22 08:08 BP 145/86 H 05/30/22 07:51 Pulse Ox 94 05/30/22 07:51 O2 Del Method Room Air 05/30/22 07:51 BMI result Body Mass Index 26.6 Const: Other: General: AO X 3, no acute distress Resp: CTA bilateral CVS: S1,S2,RRR GI: +BS, NT, no distention Skin: No rash Neuro: motor grossly intact Psych: appropriate affect DS: Data Data Completed and Pending Completed studies during hospitalization [Text1]: Procedures Drainage of Left Pleural Cavity with Drainage Device, Percutaneous Approach (08/24/21) Insertion of Infusion Device into Superior Vena Cava, Percutaneous Approach (08/24/21) Introduction of Other Therapeutic Substance into Pleural Cavity, Percutaneous Approach (08/24/21) Introduction of Remdesivir Anti-infective into Peripheral Vein, Percutaneous Approach, [employer] 5 (08/24/21) Labs on day of discharge: Laboratory Results - last 24 hr 05/27/22 05/30/22 05/30/22 16:17 05:27 05:27 WBC 8.6 RBC 3.68 L Hgb 9.3 L Hct 30.4 L MCV 82.6 MCH 25.3 L MCHC 30.6 L RDW 21.5 H Plt Count 330 MPV 9.7 Absolute Nucleated RBC 0.050 H Nucleated RBC % (auto) 0.6 H Smear Path Review Sodium 141 Potassium 3.7 Chloride 107 Carbon Dioxide 27 Anion Gap 11 L BUN 9 Creatinine 0.68 Estim Creat Clear Calc 67.6 Estimated GFR > 60 Random Glucose 79 Calcium 9.0 Discharge Plan Discharge Anticipated Discharge Date/Time: 05/30/22 09:26 Patient Disposition: Home Health Service Discharge Diagnosis: Fall, hematoma, acute blood loss anemia Referrals: Kamille NU[facility] [Outside] - 1 Week Eddie Messina MD [Primary Care Provider] - 1 Week Discharge Medications: Continued Trelegy Ellipta 200-62.5-25 mcg blister with device 1 inh inhalation DAILY 30 Days Qty: 1 6RF albuterol sulfate [ProAir HFA] 90 mcg/actuation HFA aerosol inhaler 2 puff inhalation Q4-6H PRN (Reason: shortness of breath or wheezing) Qty: 8.5 6RF digoxin 125 mcg (0.125 mg) Tablet 0.125 mg PO DAILY Qty: 30 0RF Eliquis 5 mg Tablet 5 mg PO BID Qty: 60 0RF diltiazem HCl 360 mg capsule,extended release 24hr 360 mg PO DAILY lamotrigine 100 mg tablet 100 mg PO BEDTIME pantoprazole 40 mg tablet,delayed release (DR/EC) 40 mg PO DAILY bupropion HCl [Wellbutrin SR] 200 mg tablet sustained-release 12 hr 200 mg PO BID@0900,1300 montelukast 10 mg tablet 10 mg PO DAILY lamotrigine 200 mg tablet 200 mg PO DAILY oxybutynin chloride 10 mg tablet extended release 24hr 10 mg PO DAILY No Action furosemide [Lasix] 40 mg tablet 40 mg PO QAM Qty: 30 3RF fluticasone propionate 50 mcg/actuation spray,suspension 1 spray intranasal BID PRN (Reason: Allergy Symptoms) loratadine [Claritin] 10 mg Tablet 10 mg PO DAILY PRN (Reason: Allergy Symptoms) Discharge Orders: Discharge Order (Routine); Ordered 05/30/22 Ordered By: Lucas Mederos Diet: Advance to usual diet Activity on Discharge: As tolerated Stand Alone Forms: Patient Portal Discharge page Care Plan Goals: Full recovery from anemia and hematoma Health Concerns: Hematoma anemia Plan of Treatment: Take eliquis as directed starting tomorrow and if you notice hematoma to be worse or any sings of bleeding, stop taking eliquis and check with your Doctor Assessment: as above Discharge Date/Time: 05/30/22 15:27
[2022-05-30 10:23] VITALS: PULSE 63
--- NOTE | 2022-05-30 11:55 | W.MHC.F2F ---
Service Date Service Date: 05/30/22 Encounter Date of encounter: 05/30/22 Reasons for Services Signs and symptoms assessed: Fall, weakness, shortness of breath Reason for correction: CV/CP assess and/or care and medication management Reason for physical therapy: home safety and mobility and energy conservation Homebound: Leaving the home is medically contraindicated at this time without the asist of a device and/or another person due th the listed conditions above and below. Reason homebound: unsteady gait / fall risk Homebound supporting statement: Homebounds due to fall with signficant bodily injuury, shortness of breath and therefore needs the assitance of another person Certification: Based on the above findings, I certify that this patient is confined to the home and needs intermittent correction care, physical therapy and/or speech therapy, or continues to need occupational therapy. The patient is under my care, and I have initiated the establishment of the plan of care. The patient will be followed by a physician who will periodically review the plan of care. Time Spent With Patient Time: Total time managing care of this patient today ____ minutes.
--- NOTE | 2022-05-30 13:43 | MHC.CM.PN ---
PATIENT IS ACCEPTED BY [facility] WITH START OF CARE Thursday06/03/22 PATIENT AND SON AWARE
== END 2022-05-30 15:27 | disposition home health service (06) ==
LOC: HO.ED 22:03 → HO.EDOVER 22:13 → HO.S3 05-28 02:54
PROVIDERS: Physician Assistant; Student in an Organized Health Care Education/Training Program; Admitting Provider Internal Medicine; Emergency Provider Emergency Medicine; PCP Internal Medicine; Visit Provider Internal Medicine
DX: D64.9 Anemia, unspecified (principal); S30.0XXD Contusion of lower back and pelvis, subsequent encounter; S00.12XD Contusion of left eyelid and periocular area, subsequent encounter; S60.221D Contusion of right hand, subsequent encounter; S70.02XD Contusion of left hip, subsequent encounter; S70.01XD Contusion of right hip, subsequent encounter; W19.XXXD Unspecified fall, subsequent encounter; R06.2 Wheezing; R06.00 Dyspnea, unspecified; Z20.822 Contact with and (suspected) exposure to COVID-19; I10 Essential (primary) hypertension; I48.91 Unspecified atrial fibrillation; Z96.641 Presence of right artificial hip joint; Z98.84 Bariatric surgery status; Z87.891 Personal history of nicotine dependence; Z79.899 Other long term (current) drug therapy; Z79.01 Long term (current) use of anticoagulants
CPT/HCPCS: 36415; 36430; 71045; 74176; 80048; 80053; 82272; 83735; 83880; 84484; 85025; 85027; 86850; 86900; 86901; 86923; 87635; 93005; 94640; 97162; 99221; 99285; P9016

== ENCOUNTER 2022-06-10 15:20 | Inpatient (IN) | payer MEDICARE, SELFPAY ==
--- NOTE | ~2022-06-10 | XR_ITS ---
EXAMINATION: XR CHEST CLINICAL INFORMATION: Shortness of breath. History pneumonia. COMPARISON: Chest radiographs 05/27/2022, 04/18/2022, 10/15/2021, 04/19/2018; CT abdomen 05/27/2022. TECHNIQUE: 2 views of the chest were obtained. FINDINGS: There is airspace consolidation left retrocardiac region with some air bronchogram suggested on lateral view. There is likely small infiltrate posterior medial right lower lobe. The remainder lungs are clear. The cardiopericardial silhouette is upper limits of normal. The vascularity is normal. There is no pneumothorax or pleural reaction. Probable small left effusion blunting left costophrenic angle. The hilar contours are normal. There is gentle dextrocurvature lower thoracic spine again seen. No acute bony abnormality. XR/XR chest 2V IMPRESSION: -Airspace opacity left retrocardiac lower lobe. Probable trace left effusion. -Probable small infiltrate right posterior medial base.
--- NOTE | 2022-06-10 15:28 | ED.SOB ---
HPI - SOB/Dyspnea General Chief Complaint: Dyspnea <ANIYA Canales - Last Filed: 06/10/22 15:38> Stated Complaint: Diff breathing/Pneumonia <ANIYA Canales - Last Filed: 06/10/22 15:38> Time Seen by Provider: 06/10/22 16:04 <ANIYA Canales - Last Filed: 06/10/22 15:38> Source: patient, RN notes reviewed and old records reviewed <Demond Long - Last Filed: 06/10/22 20:15> Mode of arrival: ambulatory <Demond Long - Last Filed: 06/10/22 20:15> Limitations: no limitations <Demond Long - Last Filed: 06/10/22 20:15> History of Present Illness HPI Narrative: 71-year-old female with past medical history significant for osteoarthritis, malabsorption, 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 Patient reports that she has had on and off shortness of breath for the last year since she was diagnosed with COVID-19 She reports that recently she was going to respiratory physical therapy and was in She states that about 2 weeks ago she sustained a fall in feels as though her breathing has been deteriorating since then. She reports shortness of breath, cough, chest congestion Denies any leg swelling or chest pain Denies any fevers Her doctor put her on Augmentin 7 days ago in the patient feels this is not helping her symptoms Patient denies any history of COPD reported a history of asthma No other complaints or concerns at this time. <Demond Long - Last Filed: 06/10/22 20:15> Related Data Home Medications: Home Medications Medication Instructions Recorded Confirmed pantoprazole 40 mg tablet,delayed 40 mg PO DAILY 01/10/20 06/10/22 release bupropion HCl 200 mg tablet,12 hr 200 mg PO BID@0900,1300 01/11/20 06/10/22 sustained-release (Wellbutrin SR) lamotrigine 200 mg tablet 200 mg PO DAILY 12/05/20 06/10/22 montelukast 10 mg tablet 10 mg PO DAILY 12/05/20 06/10/22 oxybutynin chloride 10 mg 10 mg PO DAILY 12/05/20 06/10/22 tablet,extended release 24 hr diltiazem HCl 360 mg 360 mg PO DAILY 05/28/22 06/10/22 capsule,extended release 24 hr lamotrigine 100 mg tablet 100 mg PO BEDTIME 05/28/22 06/10/22 amoxicillin 875 mg-potassium 1 tab PO Q12H 06/10/22 06/10/22 clavulanate 125 mg tablet fluticasone propionate 50 1 spray intranasal BID PRN Allergy 06/10/22 06/10/22 mcg/actuation nasal Symptoms spray,suspension Previous Rx's Medication Instructions Recorded digoxin 125 mcg (0.125 mg) tablet 0.125 mg PO DAILY #30 tabs 09/11/21 apixaban 5 mg tablet (Eliquis) 5 mg PO BID #60 tabs 09/12/21 fluticasone fur. 200 mcg-umeclid 1 inh inhalation DAILY 30 days #1 04/23/22 62.5 mcg-vilant 25 mcg ea inhalat.powder (Trelegy Ellipta) albuterol sulfate 90 mcg/actuation 2 puff inhalation Q4-6H PRN 05/05/22 aerosol inhaler (ProAir HFA) shortness of breath or wheezing #8.5 grams <ANIYA Canales - Last Filed: 06/10/22 15:38> Allergies/Adverse Reactions: Allergies Allergy/AdvReac Type Severity Reaction Status Date / Time No Known Allergies Allergy Verified 06/10/22 15:33 [No Known Allergies*] <ANIYA Canales - Last Filed: 06/10/22 15:38> Review of Systems Constitutional: Constitutional: Reports as per HPI, Denies chills, Denies fatigue, Denies fever(s), Denies headache(s), Reports malaise and Reports weakness <Demond Long - Last Filed: 06/10/22 20:15> ENT: Denies headache(s) <Demond Long - Last Filed: 06/10/22 20:15> Cardiovascular: Cardiovascular: Denies chest pain, Denies leg edema, Reports dyspnea and Reports dyspnea on exertion <Demond Long - Last Filed: 06/10/22 20:15> Respiratory: Respiratory: Reports chest congestion, Reports cough, Reports dyspnea and Reports dyspnea on exertion <Demond Long - Last Filed: 06/10/22 20:15> Gastrointestinal: Gastrointestinal: Denies abdominal pain, Denies constipation and Denies vomiting <Demond Logn - Last Filed: 06/10/22 20:15> Genitourinary: Genitourinary: Denies dysuria <Demond Long - Last Filed: 06/10/22 20:15> Neurologic: Denies headache(s), Denies focal weakness and Reports weakness <Demond Long - Last Filed: 06/10/22 20:15> Endocrine: Endocrine: Denies fatigue <Demond Long - Last Filed: 06/10/22 20:15> [facility] Past Medical History Medical History: Medical History Asthma Atrial fibrillation, new onset Hypertension Loculated pleural effusion MSSA bacteremia UTI (urinary tract infection) <ANIYA Canales - Last Filed: 06/10/22 15:38> Surgical History: Surgical History History of total left hip arthroplasty History of total right hip arthroplasty S/P laparoscopic sleeve gastrectomy <ANIYA Canales - Last Filed: 06/10/22 15:38> Social History Social History: Social History (System 05/28/22 @ 06:59 by Irina Simental) Household Members: Spouse Household Members Other:: Danny Housing: House Do you presently have visiting nurse or other home services: No Alcohol intake: never Patient Tobacco Use Status: Former Tobacco user Quit Date: 30 years ago Tobacco use type: Cigarette Years Smoked: 16 years Smoked in Last 30 Days: No Second Hand Smoke Exposure: No Use of substances other than those prescribed or required for medical reasons: No Advance Directives: No Advance Directives Information Provided: No service: No 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al status: retired 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: Right Handed <ANIYA Canales - Last Filed: 06/10/22 15:38> Physical Exam Vital Signs: Vital Signs: Last Vital Signs Temp 99.0 F 06/10/22 19:25 Pulse 83 06/10/22 19:25 Resp 18 06/10/22 19:25 BP 167/68 H 06/10/22 19:25 Pulse Ox 97 06/10/22 19:25 O2 Del Method Nasal Cannula 06/10/22 19:25 O2 Flow Rate 4 06/10/22 19:25 BMI result Body Mass Index 31.1 <ANIYA Canales - Last Filed: 06/10/22 15:38> Vital Signs: Last Vital Signs Temp 99.0 F 06/10/22 19:25 Pulse 83 06/10/22 19:25 Resp 18 06/10/22 19:25 BP 167/68 H 06/10/22 19:25 Pulse Ox 97 06/10/22 19:25 O2 Del Method Nasal Cannula 06/10/22 19:25 O2 Flow Rate 4 06/10/22 19:25 BMI result Body Mass Index 31.1 <Demond Long - Last Filed: 06/10/22 20:15> Const: General: healthy appearing, comfortable, no acute distress, alert and awake <Demond Long - Last Filed: 06/10/22 20:15> Nutritional Appearance: well nourished <Demond OliveiraDefiance - Last Filed: 06/10/22 20:15> Orientation/consciousness: patient oriented x3 <Demond SerranoDefiance - Last Filed: 06/10/22 20:15> HEENT: Head: Yes normocephalic and Yes atraumatic <Demond SerranoDefiance - Last Filed: 06/10/22 20:15> Throat: Yes posterior oropharynx normal <Demond Boatengy - Last Filed: 06/10/22 20:15> Eyes: Eyelids: Yes eyelids normal <Demond Boatengy - Last Filed: 06/10/22 20:15> Conjunctivae: conjunctivae normal <Demond SerranoClive - Last Filed: 06/10/22 20:15> Sclerae: sclerae normal <Demond ODefiance - Last Filed: 06/10/22 20:15> Corneas: corneas normal <Demond Boateng Last Filed: 06/10/22 20:15> Pupils: Equal, round and reactive pupils present <Demond Boatengy - Last Filed: 06/10/22 20:15> EOM: EOMs intact bilaterally < Last Filed: 06/10/22 20:15> Neck: Neck: Yes full ROM < Last Filed: 06/10/22 20:15> Resp: Other: In a seated position with supplemental oxygen 2 L via nasal canula, the patient is resting quite comfortably and speaking in full, clear sentences. < Last Filed: 06/10/22 20:15> Effort & Inspection: normal respiratory effort and able to speak in complete sentences < Last Filed: 06/10/22 20:15> Auscultation: not clear to auscultation bilaterally and wheezes throughout (coarse wheeze throughout) < Last Filed: 06/10/22 20:15> Cardio: Other: No pitting edema < Last Filed: 06/10/22 20:15> Rate: regular rate < Last Filed: 06/10/22 20:15> Rhythm: regular rhythm < Last Filed: 06/10/22 20:15> GI: Inspection: No distended < Filed: 06/10/22 20:15> Palpation (GI): Soft to palpation, not firm, nontender, no guarding and not rigid < Last Filed: 06/10/22 20:15> Auscultation: normoactive bowel sounds < Last Filed: 06/10/22 20:15> Skin: General skin exam: no rashes or lesions noted and elasticity normal < Last Filed: 06/10/22 20:15> Neuro: General: patient oriented x3 < Last Filed: 06/10/22 20:15> Cranial nerves: Yes Equal, round and reactive pupils present and Yes Bilaterally intact EOM present < Last Filed: 06/10/22 20:15> Cognition (Neuro): normal cognition < Last Filed: 06/10/22 20:15> Course Course Course Narrative: RME - 71 yo female with history of MSSA PNA and bacterermia 09/2021, hx sleeve gastrectomy, afib on eliquis with recent admission to [facility] for acute blood loss anemia due to a 16cm left buttock hematoma requiring RBC transfusion who presents to the ER from home c/o SOB and worsening chest congestion for the last few days despite taking Augmentin for 7+ days. PCP told her to come into the ER for evaluation and possible abx. Rarely bringing up phlegm, has worsening SOB w/ exertion and talking. History of asthma, using inhalers at home. SpO2 90-92% on room air, slightly dyspnea w/ speaking. Coarse and wheezy on exam R>L. Plan: CXR, labs, EKG. to be brought back to treatment room now <ANIYA Canales - Last Filed: 06/10/22 15:38> Reevaluation(s) Reevaluation #1: Chest x-ray shows airspace opacity in the left retrocardiac lower lobe this is new when compared to x-ray from 05/27/2022 and indicative acute pneumonia. Given the failed outpatient treatment will give IV antibiotics and plan for admission <Demond Long - Last Filed: 06/10/22 20:15> Medications Administered Discontinued Medications Generic Name Dose Route Start Last Admin Trade Name Freq PRN Reason Stop Dose Admin Albuterol Sulfate 2.5 mg/ 0 mg 06/10/22 16:24 06/10/22 16:45 Albuterol/Ipratropium 3 ml INHALE 06/10/22 16:25 5 each ONCE ONE Administration Magnesium Sulfate 2 gm in 50 mls @ 150 mls/hr 06/10/22 16:24 06/10/22 17:10 Magnesium Sulfate/H2o IV 06/10/22 16:43 Infused ONCE ONE Infusion Ceftriaxone Sodium 1 gm/ 50 mls @ 100 mls/hr 06/10/22 17:21 06/10/22 19:15 Sodium Chloride IV 06/10/22 17:50 Infused ONCE ONE Infusion Azithromycin 500 mg/ Sodium 250 mls @ 125 mls/hr 06/10/22 17:21 06/10/22 19:31 Chloride IV 06/10/22 19:20 125 mls/hr ONCE ONE Administration Methylprednisolone Sodium Succinate 125 mg 06/10/22 16:24 06/10/22 16:44 Methylprednisolone Sod Succ 125 Mg/2 Ml Vial IVPUSH 06/10/22 16:25 125 mg ONCE ONE Administration <ANIYA Canales - Last Filed: 06/10/22 15:38> Medications Administered Discontinued Medications Generic Name Dose Route Start Last Admin Trade Name Erin PRN Reason Stop Dose Admin Albuterol Sulfate 2.5 mg/ 0 mg 06/10/22 16:24 06/10/22 16:45 Albuterol/Ipratropium 3 ml INHALE 06/10/22 16:25 5 each ONCE ONE Administration Magnesium Sulfate 2 gm in 50 mls @ 150 mls/hr 06/10/22 16:24 06/10/22 17:10 Magnesium Sulfate/H2o IV 06/10/22 16:43 Infused ONCE ONE Infusion Ceftriaxone Sodium 1 gm/ 50 mls @ 100 mls/hr 06/10/22 17:21 06/10/22 19:15 Sodium Chloride IV 06/10/22 17:50 Infused ONCE ONE Infusion Azithromycin 500 mg/ Sodium 250 mls @ 125 mls/hr 06/10/22 17:21 06/10/22 19:31 Chloride IV 06/10/22 19:20 125 mls/hr ONCE ONE Administration Methylprednisolone Sodium Succinate 125 mg 06/10/22 16:24 06/10/22 16:44 Methylprednisolone Sod Succ 125 Mg/2 Ml Vial IVPUSH 06/10/22 16:25 125 mg ONCE ONE Administration <Demond Long - Last Filed: 06/10/22 20:15> Medical Decision Making Medical Decision Making MDM Narrative: 71-year-old female presents for evaluation of worsening shortness of breath despite oral antibiotics. She has a coarse wheeze throughout. I suspect the patient has a degree of chronic obstructive pulmonary disease that is undiagnosed. Will treat with DuoNeb, Solu-Medrol, magnesium. Labs and chest x-ray pending. The patient was hypoxic 90% on room air. She is 98% on 2 L. She reports her baseline oxygen saturation is 93-95%. Low suspicion for heart failure <Demond Long - Last Filed: 06/10/22 20:15> Differential Diagnosis COPD Bronchitis Pneumonia Viral syndrome Asthma exacerbation <Demond Long - Last Filed: 05/02/23 20:15> Lab Data Result Diagrams: 06/10/22 16:22 06/10/22 16:22 <ANIYA Canales - Last Filed: 06/10/22 15:38> Labs: Lab Results 06/10/22 06/10/22 06/10/22 Range/Units 16:21 16:22 16:22 WBC 10.1 (4.8-10.8) X10*3/uL RBC 4.09 L (4.20-5.50) X10*6/uL Hgb 10.5 L (12.0-16.0) g/dl Hct 35.2 L (37.0-47.0) % MCV 86.1 (80.0-98.0) fL MCH 25.7 L (27.0-33.0) pg MCHC 29.8 L (31.0-35.0) g/dl RDW 24.4 H (11.0-16.0) % Plt Count 482 H D (160-400) X10*3/uL MPV 9.5 (9.4-12.3) fL Immature Gran % (Auto) 0.9 H (0.0-0.4) % Neut % (Auto) 69.2 (45-73) % Lymph % (Auto) 17.6 L (20-40) % Sutton % (Auto) 7.3 (2-11) % Eos % (Auto) 4.0 (0-4) % Baso % (Auto) 1.0 (0-2) % Lymph # (Auto) 1.8 (1.2-4.9) X10*3/uL Sutton # (Auto) 0.7 (0.1-1.2) X10*3/uL Eos # (Auto) 0.4 (0.0-0.4) X10*3/uL Baso # (Auto) 0.1 (0.0-0.2) X10*3/uL Abs Immat Gran (auto) 0.09 H (0.00-0.03) X10*3/uL Absolute Neuts (auto) 7.0 (2.0-8.3) x10*3/uL Absolute Nucleated RBC 0.000 (0.0-0.012) X10*3/uL Nucleated RBC % (auto) 0.0 (0.0-0.2) /100WBC Sodium 145 (135-145) mmol/L Potassium 4.3 (3.3-5.1) mmol/L Chloride 112 H (96-108) mmol/L Carbon Dioxide 24 (22-29) mmol/L Anion Gap 13 (12-20) BUN 15 (9-16) mg/dL Creatinine 0.73 (0.5-1.4) mg/dL Estim Creat Clear Calc 67.9 Estimated GFR > 60 Random Glucose 75 (60-115) mg/dL Lactic Acid 0.8 (0.5-2.0) mmol/L Calcium 9.3 (8.4-10.2) mg/dL Magnesium 2.1 (1.6-2.6) mg/dL Total Bilirubin 0.5 (0.0-1.0) mg/dL Direct Bilirubin 0.2 (0.0-0.5) mg/dL AST 17 (5-31) U/L ALT 10 (0-31) U/L Alkaline Phosphatase 97 (39-117) U/L B-Natriuretic Peptide (<100) pg/mL Total Protein 6.3 L (6.5-8.0) g/dL Albumin 3.4 L (3.5-5.0) g/dL Digoxin (0.8-2.0) ng/mL 06/10/22 06/10/22 Range/Units 16:22 19:32 WBC (4.8-10.8) X10*3/uL RBC (4.20-5.50) X10*6/uL Hgb (12.0-16.0) g/dl Hct (37.0-47.0) % MCV (80.0-98.0) fL MCH (27.0-33.0) pg MCHC (31.0-35.0) g/dl RDW (11.0-16.0) % Plt Count (160-400) X10*3/uL MPV (9.4-12.3) fL Immature Gran % (Auto) (0.0-0.4) % Neut % (Auto) (45-73) % Lymph % (Auto) (20-40) % Sutton % (Auto) (2-11) % Eos % (Auto) (0-4) % Baso % (Auto) (0-2) % Lymph # (Auto) (1.2-4.9) X10*3/uL Sutton # (Auto) (0.1-1.2) X10*3/uL Eos # (Auto) (0.0-0.4) X10*3/uL Baso # (Auto) (0.0-0.2) X10*3/uL Abs Immat Gran (auto) (0.00-0.03) X10*3/uL Absolute Neuts (auto) (2.0-8.3) x10*3/uL Absolute Nucleated RBC (0.0-0.012) X10*3/uL Nucleated RBC % (auto) (0.0-0.2) /100WBC Sodium (135-145) mmol/L Potassium (3.3-5.1) mmol/L Chloride (96-108) mmol/L Carbon Dioxide (22-29) mmol/L Anion Gap (12-20) BUN (9-16) mg/dL Creatinine (0.5-1.4) mg/dL Estim Creat Clear Calc Estimated GFR Random Glucose (60-115) mg/dL Lactic Acid (0.5-2.0) mmol/L Calcium (8.4-10.2) mg/dL Magnesium (1.6-2.6) mg/dL Total Bilirubin (0.0-1.0) mg/dL Direct Bilirubin (0.0-0.5) mg/dL AST (5-31) U/L ALT (0-31) U/L Alkaline Phosphatase (39-117) U/L B-Natriuretic Peptide 218 H (<100) pg/mL Total Protein (6.5-8.0) g/dL Albumin (3.5-5.0) g/dL Digoxin 0.8 (0.8-2.0) ng/mL <ANIYA Canales - Last Filed: 06/10/22 15:38> Lab Results 06/10/22 06/10/22 06/10/22 Range/Units 16:21 16:22 16:22 WBC 10.1 (4.8-10.8) X10*3/uL RBC 4.09 L (4.20-5.50) X10*6/uL Hgb 10.5 L (12.0-16.0) g/dl Hct 35.2 L (37.0-47.0) % MCV 86.1 (80.0-98.0) fL MCH 25.7 L (27.0-33.0) pg MCHC 29.8 L (31.0-35.0) g/dl RDW 24.4 H (11.0-16.0) % Plt Count 482 H D (160-400) X10*3/uL MPV 9.5 (9.4-12.3) fL Immature Gran % (Auto) 0.9 H (0.0-0.4) % Neut % (Auto) 69.2 (45-73) % Lymph % (Auto) 17.6 L (20-40) % Sutton % (Auto) 7.3 (2-11) % Eos % (Auto) 4.0 (0-4) % Baso % (Auto) 1.0 (0-2) % Lymph # (Auto) 1.8 (1.2-4.9) X10*3/uL Sutton # (Auto) 0.7 (0.1-1.2) X10*3/uL Eos # (Auto) 0.4 (0.0-0.4) X10*3/uL Baso # (Auto) 0.1 (0.0-0.2) X10*3/uL Abs Immat Gran (auto) 0.09 H (0.00-0.03) X10*3/uL Absolute Neuts (auto) 7.0 (2.0-8.3) x10*3/uL Absolute Nucleated RBC 0.000 (0.0-0.012) X10*3/uL Nucleated RBC % (auto) 0.0 (0.0-0.2) /100WBC Sodium 145 (135-145) mmol/L Potassium 4.3 (3.3-5.1) mmol/L Chloride 112 H (96-108) mmol/L Carbon Dioxide 24 (22-29) mmol/L Anion Gap 13 (12-20) BUN 15 (9-16) mg/dL Creatinine 0.73 (0.5-1.4) mg/dL Estim Creat Clear Calc 67.9 Estimated GFR > 60 Random Glucose 75 (60-115) mg/dL Lactic Acid 0.8 (0.5-2.0) mmol/L Calcium 9.3 (8.4-10.2) mg/dL Magnesium 2.1 (1.6-2.6) mg/dL Total Bilirubin 0.5 (0.0-1.0) mg/dL Direct Bilirubin 0.2 (0.0-0.5) mg/dL AST 17 (5-31) U/L ALT 10 (0-31) U/L Alkaline Phosphatase 97 (39-117) U/L B-Natriuretic Peptide (<100) pg/mL Total Protein 6.3 L (6.5-8.0) g/dL Albumin 3.4 L (3.5-5.0) g/dL Digoxin (0.8-2.0) ng/mL 06/10/22 06/10/22 Range/Units 16:22 19:32 WBC (4.8-10.8) X10*3/uL RBC (4.20-5.50) X10*6/uL Hgb (12.0-16.0) g/dl Hct (37.0-47.0) % MCV (80.0-98.0) fL MCH (27.0-33.0) pg MCHC (31.0-35.0) g/dl RDW (11.0-16.0) % Plt Count (160-400) X10*3/uL MPV (9.4-12.3) fL Immature Gran % (Auto) (0.0-0.4) % Neut % (Auto) (45-73) % Lymph % (Auto) (20-40) % Sutton % (Auto) (2-11) % Eos % (Auto) (0-4) % Baso % (Auto) (0-2) % Lymph # (Auto) (1.2-4.9) X10*3/uL Sutton # (Auto) (0.1-1.2) X10*3/uL Eos # (Auto) (0.0-0.4) X10*3/uL Baso # (Auto) (0.0-0.2) X10*3/uL Abs Immat Gran (auto) (0.00-0.03) X10*3/uL Absolute Neuts (auto) (2.0-8.3) x10*3/uL Absolute Nucleated RBC (0.0-0.012) X10*3/uL Nucleated RBC % (auto) (0.0-0.2) /100WBC Sodium (135-145) mmol/L Potassium (3.3-5.1) mmol/L Chloride (96-108) mmol/L Carbon Dioxide (22-29) mmol/L Anion Gap (12-20) BUN (9-16) mg/dL Creatinine (0.5-1.4) mg/dL Estim Creat Clear Calc Estimated GFR Random Glucose (60-115) mg/dL Lactic Acid (0.5-2.0) mmol/L Calcium (8.4-10.2) mg/dL Magnesium (1.6-2.6) mg/dL Total Bilirubin (0.0-1.0) mg/dL Direct Bilirubin (0.0-0.5) mg/dL AST (5-31) U/L ALT (0-31) U/L Alkaline Phosphatase (39-117) U/L B-Natriuretic Peptide 218 H (<100) pg/mL Total Protein (6.5-8.0) g/dL Albumin (3.5-5.0) g/dL Digoxin 0.8 (0.8-2.0) ng/mL <Demond Long - Last Filed: 06/10/22 20:15> Discharge Plan Discharge Clinical Impression: Community acquired pneumonia <ANIYA Canales - Last Filed: 06/10/22 15:38> Patient Disposition: Admitted As Inpatient <ANIYA Canales - Last Filed: 06/10/22 15:38> Prescriptions: No Action Trelegy Ellipta 200-62.5-25 mcg blister with device 1 inh inhalation DAILY 30 Days Qty: 1 6RF albuterol sulfate [ProAir HFA] 90 mcg/actuation HFA aerosol inhaler 2 puff inhalation Q4-6H PRN (Reason: shortness of breath or wheezing) Qty: 8.5 6RF digoxin 125 mcg (0.125 mg) Tablet 0.125 mg PO DAILY Qty: 30 0RF Eliquis 5 mg Tablet 5 mg PO BID Qty: 60 0RF fluticasone propionate 50 mcg/actuation spray,suspension 1 spray intranasal BID PRN (Reason: Allergy Symptoms) amoxicillin-pot clavulanate 875-125 mg tablet 1 tab PO Q12H diltiazem HCl 360 mg capsule,extended release 24hr 360 mg PO DAILY lamotrigine 100 mg tablet 100 mg PO BEDTIME pantoprazole 40 mg tablet,delayed release (DR/EC) 40 mg PO DAILY bupropion HCl [Wellbutrin SR] 200 mg tablet sustained-release 12 hr 200 mg PO BID@0900,1300 montelukast 10 mg tablet 10 mg PO DAILY lamotrigine 200 mg tablet 200 mg PO DAILY oxybutynin chloride 10 mg tablet extended release 24hr 10 mg PO DAILY <ANIYA Canales - Last Filed: 06/10/22 15:38>
[2022-06-10 15:33] VITALS: BP 160/65; PULSE 83; RESP 18; TEMP 36.8; O2SAT 90; BMI 31.1
--- NOTE | 2022-06-10 15:35 | ECG_ITS ---
Test Reason : sob Blood Pressure : / mmHG Vent. Rate : 066 BPM Atrial Rate : 066 BPM P-R Int : 164 ms QRS Dur : 102 ms QT Int : 380 ms P-R-T Axes : 085 -40 100 degrees QTc Int : 398 ms Normal sinus rhythm with sinus arrhythmia Left axis deviation Minimal voltage criteria for LVH, may be normal variant ( Homar product ) ST & T wave abnormality, consider lateral ischemia Abnormal ECG When compared with ECG of 27-MAY-2022 16:08, No significant change was found Referred By: Daria Johnson Electronically Signed By:MISTY HAMILTON MD
[2022-06-10 16:31] LABS: MANUAL DIFF FLAG NO
[2022-06-10] MEDS: methylPREDNISolone Sod Succ 125 MG/2 ML VIAL IVPUSH (16:44)
[2022-06-10] MEDS: Magnesium Sulfate/H2O 2 GM/50 ML PIGGYBACK IV (16:44)
[2022-06-10 16:45] LABS: Basophils Absolute Auto 0.1 X10*3/uL (0.0-0.2); Eosinophils Absolute Auto 0.4 X10*3/uL (0.0-0.4); Hematocrit 35.2 % (37.0-47.0); Hemoglobin 10.5 g/dl (12.0-16.0); Imm Gran Abs Auto 0.09 X10*3/uL (0.00-0.03); Imm Gran Pct Auto 0.9 % (0.0-0.4); Lymphocytes Absolute Auto 1.8 X10*3/uL (1.2-4.9); Lymphocytes Percent Auto 17.6 % (20-40); Mean Corpuscular HGB Conc 29.8 g/dl (31.0-35.0); Mean Corpuscular Hemoglobin 25.7 pg (27.0-33.0); Mean Corpuscular Volume 86.1 fL (80.0-98.0); Mean Platelet Volume 9.5 fL (9.4-12.3); Monocytes Absolute Auto 0.7 X10*3/uL (0.1-1.2); Monocytes Percent Auto 7.3 % (2-11); Neutrophils Percent Auto 69.2 % (45-73); Platelet Count 482 X10*3/uL (160-400); Red Blood Count 4.09 X10*6/uL (4.20-5.50); Red Cell Distribution Width 24.4 % (11.0-16.0); White Blood Count 10.1 X10*3/uL (4.8-10.8)
[2022-06-10 16:47] LABS: Alanine Aminotransferase 10 U/L (0-31); Albumin Level 3.4 g/dL (3.5-5.0); Alkaline Phosphatase 97 U/L (39-117); Anion Gap 13 (12-20); Aspartate Amino Transferase 17 U/L (5-31); Bilirubin Direct 0.2 mg/dL (0.0-0.5); Bilirubin Total 0.5 mg/dL (0.0-1.0); Blood Urea Nitrogen 15 mg/dL (9-16); Calcium 9.3 mg/dL (8.4-10.2); Carbon Dioxide 24 mmol/L (22-29); Chloride 112 mmol/L (96-108); Creatinine Clr Calc Pharmacy 67.9; Estimated Glomerular Filt Rate > 60; Glucose Random 75 mg/dL (60-115); Magnesium 2.1 mg/dL (1.6-2.6); Potassium 4.3 mmol/L (3.3-5.1); Sodium 145 mmol/L (135-145); Total Protein 6.3 g/dL (6.5-8.0)
[2022-06-10 16:50] VITALS: PULSE 69; RESP 18; O2SAT 100
[2022-06-10 16:53] LABS: Lactic Acid 0.8 mmol/L (0.5-2.0)
[2022-06-10 16:54] LABS: B Type Natriuretic Peptide 218 pg/mL (<100)
--- NOTE | 2022-06-10 17:02 | PC.NURSE ---
Patient presents with shortness of breath. patient with more labored breathing and rhonci lung sounds. Patient on 3L of O2 sating 98%. Denies pain at this time.
[2022-06-10] MEDS: cefTRIAXone sodium 1 GM in 0.9 % Sodium Chloride 50 ML IV (18:10)
--- NOTE | 2022-06-10 18:22 | PC.NURSE ---
Patient reting on stretcher looking more comfortable than before nebulizer treatment a IV medications. Patient getting IV antibiotics at this time.
--- NOTE | 2022-06-10 18:54 | PHA.MEDREC ---
Pharmacy Consult ? Medication Reconciliation Pharmacy has completed the medication reconciliation. Patient confirmed all medications. Patient brought her Trelegy inhaler with her. Lucila Salcedo, JorgeD
[2022-06-10 19:25] VITALS: BP 167/68; PULSE 83; RESP 18; TEMP 37.2; O2SAT 97
[2022-06-10] MEDS: Azithromycin 500 MG in 0.9 % Sodium Chloride 250 ML 125 MG IV (19:31)
--- NOTE | 2022-06-10 19:36 | MHC.EDTECH ---
This tech assumed care of pt at 1900,Vitals taken,Labs,UACC obtained. Patient ambulated with no assist but with this tech by her side to BR. Patient gave sample and urinated a large amount. Call tapia in reach
[2022-06-10 19:56] LABS: Digoxin 0.8 ng/mL (0.8-2.0)
--- NOTE | 2022-06-10 20:00 | PC.NURSE ---
This pattern chart writer assumed care of this Pt at 1900. Pt A&Ox4, denies any pain. Pt sitting up in stretcher, speaking in full sentences, Pt on 4L via NC sat o2 95%, RR 18, lung sounds rhonchi throughout.
[2022-06-10 20:07] LABS: Appearance Urine Clear; Color Urine Yellow; Glucose Urine UA Negative (Negative); Leukocyte Esterase Urine Trace (Negative); Nitrite Urine Negative (Negative); Specific Gravity - Urine 1.015 (1.005-1.025); UMIC TRIGGER UACC YES; Urine Blood Negative (Negative); Urine Ketones Negative (Negative); Urine Protein Negative (Neg-Trace)
[2022-06-10 20:21] LABS: Influenza A PCR NEGATIVE (Negative); Influenza B PCR NEGATIVE (Negative); Resp Syncy Virus RNA Qual PCR NEGATIVE (Negative); SARS COV2 PCR INHOUSE NEGATIVE (Negative)
[2022-06-10 20:26] LABS: Bacteria Urine None Seen (None Seen); Hyaline Casts Urine 0-2 /LPF (0-2); RBC Urine 0-2 /HPF (0-2); Squamous Epithelial Cell Urine 0-2 /HPF (0-2); WBC Urine 0-5 /HPF (0-5)
--- NOTE | 2022-06-10 21:20 | P.HPHOSP_ITS ---
failed op therapy of CAP. agree with below assessment and plan. please see below for full H&P History of Present Illness Date of Service: 06/10/22 Attending physician on admission: Dionicio Craven Chief Complaint: SOB Pt is a 71-year-old female with a PMH significant for?mild persistent asthma, paroxysmal AFib on Eliquis, HTN, history of falls, and anemia who presents to the ED from PCP for treatment with IV antibiotics of community-acquired pneumonia that has failed outpatient therapy. Patient has had a long history of respiratory issues and complains of long COVID symptoms for the past 15 months. Patient was recently admitted to the hospital on 05/27/2022 through 05/30/2022 for treatment of shortness of breath was found to have profound anemia with hemoglobin of 6 that required transfusion of 2 units of packed red blood cells. Patient was discharged and felt better until about a week ago when shortness of breath and cough returned. Patient saw her PCP who took an x-ray which showed pneumonia. Was prescribed Augmentin x10 days, which she took for 1 week without any relief to her symptoms, and was sent by her PCP to the hospital for treatment with IV antibiotics. Patient states she has had a mostly nonproductive cough, felt fatigued, had inspiratory chest tightness, wheezing, and shortness of breath that is worse with talking and exertion. Patient denies chest pain/pressure, palpitations. No fever, chills, nausea, vomiting, diarrhea, abdominal pain. Patient is not on supplemental O2 at home. In the ED patient was afebrile but slightly hypertensive at 167/68, satting at 90% O2 on RA, improved to 96% on 4 L NC. Labs were significant for stable H&H of 10.5/35.2, platelets of 482, BNP slightly elevated at 218. CXR showed probable small infiltrate of right posterior medial base and probable trace left effusion. EKG demonstrated normal sinus rhythm without evidence of ST elevations or depressions. Pt was treated with azithromycin, ceftriaxone, DuoNeb, Mag sulfate, and Solu-Medrol. Pt will be admitted to the hospital for treatment with IV antibiotics of community-acquired pneumonia that has failed outpatient therapy. Review of Systems Review of Systems: Shortness of breath Mostly nonproductive cough Fatigue Inspiratory chest tightness Wheezing Denies fever, chills, nausea, vomiting, diarrhea, abdominal pain No chest pain/pressure, palpitations Yes all other systems are reviewed and are negative [facility] Medical History Anemia Asthma Atrial fibrillation, new onset Hypertension Hypertension Loculated pleural effusion MSSA bacteremia MILY (obstructive sleep apnea) SOB (shortness of breath) UTI (urinary tract infection) Surgical History History of bunionectomy History of total left hip arthroplasty History of total replacement of right hip History of total right hip arthroplasty Left inguinal hernia S/P laparoscopic sleeve gastrectomy Social History Household Members: Spouse Household Members Other:: Danny Housing: House Do you presently have visiting nurse or other home services: No Alcohol intake: never Patient Tobacco Use Status: Former Tobacco user Quit Date: 30 years ago Tobacco use type: Cigarette Years Smoked: 16 years Smoked in Last 30 Days: No Second Hand Smoke Exposure: No Use of substances other than those prescribed or required for medical reasons: No Advance Directives: No Advance Directives Information Provided: No service: No 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al status: retired 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 Allergies Allergy/AdvReac Type Severity Reaction Status Date / Time No Known Allergies Allergy Verified 06/10/22 15:33 [No Known Allergies*] Active Medications: Current Medications Pharmacy Consult (Consult Rx Perform Med Rec) 1 each MISCELLANE ONCE PRN PRN Reason: Consult order Home Medications Medication Instructions Recorded Confirmed Last Taken Type pantoprazole 40 mg tablet,delayed 40 mg PO DAILY 01/10/20 06/10/22 Unknown History release bupropion HCl 200 mg tablet,12 hr 200 mg PO BID@0900,1300 01/11/20 06/10/22 05/27/22 History sustained-release (Wellbutrin SR) lamotrigine 200 mg tablet 200 mg PO DAILY 12/05/20 06/10/22 05/27/22 History montelukast 10 mg tablet 10 mg PO DAILY 12/05/20 06/10/22 05/27/22 History oxybutynin chloride 10 mg 10 mg PO DAILY 12/05/20 06/10/22 05/27/22 History tablet,extended release 24 hr diltiazem HCl 360 mg 360 mg PO DAILY 05/28/22 06/10/22 Unknown History capsule,extended release 24 hr lamotrigine 100 mg tablet 100 mg PO BEDTIME 05/28/22 06/10/22 Unknown History amoxicillin 875 mg-potassium 1 tab PO Q12H 06/10/22 06/10/22 Unknown History clavulanate 125 mg tablet fluticasone propionate 50 1 spray intranasal BID PRN Allergy 06/10/22 06/10/22 Unknown History mcg/actuation nasal Symptoms spray,suspension Physical Exam Vital Signs and Narrative: Vital Signs: Last Vital Signs Temp 99.0 F 06/10/22 19:25 Pulse 83 06/10/22 19:25 Resp 18 06/10/22 19:25 BP 167/68 H 06/10/22 19:25 Pulse Ox 97 06/10/22 19:25 O2 Del Method Nasal Cannula 06/10/22 19:25 O2 Flow Rate 4 06/10/22 19:25 BMI result Body Mass Index 31.1 Constitutional: Alert, in no acute distress. Mental Status: Oriented to person, place and time. Eyes: Pupils are equal, round, and reactive to light. Ear, Nose, and Throat: Oropharynx clear, mucous membranes moist. Ears and nose without deformities. Trachea midline. Respiratory: Diffuse rhonchi throughout bilaterally. Cardiovascular: S1, S2 regular. No murmurs, rubs, or gallops. Gastrointestinal: Abdomen soft, non-tender, non-distended. Normal bowel sounds. Neurologic: Cranial nerves II-XII are grossly intact bilaterally. No focal neurological deficits. Moves all extremities spontaneously. Skin: No rashes or lesions noted. Musculoskeletal: No cyanosis or clubbing. Extremities: No edema. Psychiatric: Normal mood and affect. Results Labs 06/10/22 16:22 06/10/22 16:22 Labs: Laboratory Results - last 24 hr 06/10/22 06/10/22 06/10/22 16:21 16:22 16:22 MCV 86.1 MCH 25.7 L MCHC 29.8 L RDW 24.4 H Plt Count 482 H D MPV 9.5 Immature Gran % (Auto) 0.9 H Neut % (Auto) 69.2 Lymph % (Auto) 17.6 L Wise % (Auto) 7.3 Eos % (Auto) 4.0 Baso % (Auto) 1.0 Lymph # (Auto) 1.8 Wise # (Auto) 0.7 Eos # (Auto) 0.4 Baso # (Auto) 0.1 Abs Immat Gran (auto) 0.09 H Absolute Neuts (auto) 7.0 Absolute Nucleated RBC 0.000 Nucleated RBC % (auto) 0.0 Anion Gap 13 Estim Creat Clear Calc 67.9 Estimated GFR > 60 Random Glucose 75 Lactic Acid 0.8 Calcium 9.3 Magnesium 2.1 Total Bilirubin 0.5 Direct Bilirubin 0.2 AST 17 ALT 10 Alkaline Phosphatase 97 B-Natriuretic Peptide Total Protein 6.3 L Albumin 3.4 L Urine Color Urine Appearance Urine pH Ur Specific [place] Urine Protein Urine Glucose (UA) Urine Ketones Urine Blood Urine Nitrite Ur Leukocyte Esterase Urine RBC Urine WBC Ur Squamous Epith Cells Urine Bacteria Hyaline Casts Digoxin Influenza Type A (PCR) Influenza Type B (PCR) RSV RNA Qual (PCR) SARS-CoV-2 RNA (RT-PCR) 06/10/22 06/10/22 06/10/22 16:22 19:32 19:32 MCV MCH MCHC RDW Plt Count MPV Immature Gran % (Auto) Neut % (Auto) Lymph % (Auto) Wise % (Auto) Eos % (Auto) Baso % (Auto) Lymph # (Auto) Wise # (Auto) Eos # (Auto) Baso # (Auto) Abs Immat Gran (auto) Absolute Neuts (auto) Absolute Nucleated RBC Nucleated RBC % (auto) Anion Gap Estim Creat Clear Calc Estimated GFR Random Glucose Lactic Acid Calcium Magnesium Total Bilirubin Direct Bilirubin AST ALT Alkaline Phosphatase B-Natriuretic Peptide 218 H Total Protein Albumin Urine Color Urine Appearance Urine pH Ur Specific [place] Urine Protein Urine Glucose (UA) Urine Ketones Urine Blood Urine Nitrite Ur Leukocyte Esterase Urine RBC Urine WBC Ur Squamous Epith Cells Urine Bacteria Hyaline Casts Digoxin 0.8 Influenza Type A (PCR) NEGATIVE Influenza Type B (PCR) NEGATIVE RSV RNA Qual (PCR) NEGATIVE SARS-CoV-2 RNA (RT-PCR) NEGATIVE 06/10/22 19:35 MCV MCH MCHC RDW Plt Count MPV Immature Gran % (Auto) Neut % (Auto) Lymph % (Auto) Wise % (Auto) Eos % (Auto) Baso % (Auto) Lymph # (Auto) Wise # (Auto) Eos # (Auto) Baso # (Auto) Abs Immat Gran (auto) Absolute Neuts (auto) Absolute Nucleated RBC Nucleated RBC % (auto) Anion Gap Estim Creat Clear Calc Estimated GFR Random Glucose Lactic Acid Calcium Magnesium Total Bilirubin Direct Bilirubin AST ALT Alkaline Phosphatase B-Natriuretic Peptide Total Protein Albumin Urine Color Yellow Urine Appearance Clear Urine pH 6.0 Ur Specific [place] 1.015 Urine Protein Negative Urine Glucose (UA) Negative Urine Ketones Negative Urine Blood Negative Urine Nitrite Negative Ur Leukocyte Esterase Trace H Urine RBC 0-2 Urine WBC 0-5 Ur Squamous Epith Cells 0-2 Urine Bacteria None Seen Hyaline Casts 0-2 Digoxin Influenza Type A (PCR) Influenza Type B (PCR) RSV RNA Qual (PCR) SARS-CoV-2 RNA (RT-PCR) Imaging Radiologist's Impressions: Impressions Chest X-Ray 06/10/22 15:58 IMPRESSION: -Airspace opacity left retrocardiac lower lobe. Probable trace left effusion. -Probable small infiltrate right posterior medial base. Assessment and Plan (1) Community acquired pneumonia: Status: Acute Plan Pt is a 71-year-old female with a PMH significant for?mild persistent asthma, p aroxysmal AFib on Eliquis, HTN, history of falls, and anemia who presents to the ED from PCP for treatment with IV antibiotics of community-acquired pneumonia that has failed outpatient therapy. Pt will be admitted to the hospital for treatment with IV antibiotics of community-acquired pneumonia that has failed outpatient therapy. Community-acquired pneumonia in the setting of mild persistent asthma Patient failed outpatient therapy on Augmentin x7 doses Physical exam reveals diffuse rhonci IV antibiotics: ceftriaxone and azithromycin, started 06/10/22 DuoNebs p.r.n. Solu-Medrol 40 mg q.12 Titrate supplemental O2 >92, wean as tolerated Continue home inhalers Paroxysmal AFib EKG shows normal sinus rhythm Continue Eliquis, diltiazem Normocytic anemia Patient with history of symptomatic anemia requiring transfusions Current H&H 10.5/35.2, stable at baseline HTN Reasonably controlled Contine diliazem Full Code Attending:?Dr. Craven DVT Prophylaxis: On Eliquis Pt will require a hospitalization of at least two nights for treatment with IV antibiotics of?community acquired pneumonia that has failed outpatient therapy. Time Spent With Patient Time: Total time managing care of this patient today ____ minutes. Quality Stroke Does the patient have a stroke diagnosis?: No VTE Prior VTE?: No VTE Risk Level:: Medical - moderate - high VTE Device Contraindication: Treatment Not Indicated VTE Drug Contraindication: N/A - Med Ordered
[2022-06-10 22:02] VITALS: BP 155/81; PULSE 83; RESP 18; O2SAT 95
[2022-06-10] MEDS: lamoTRIgine 100 MG TABLET PO (23:14)
[2022-06-10] MEDS: Apixaban 5 MG TABLET PO (23:14)
--- NOTE | 2022-06-10 23:20 | MHC.EDTECH ---
Patient is sitting on side of bed watching TV. Belongings list done for admission. Call tapia in reach patient is comfortable at this time.
[2022-06-10] MEDS: 0.9 % Sodium Chloride Flush 3 ML SYRINGE IVFLUSH (23:34)
[2022-06-11] VITALS (12 sets, daily range): BP systolic 144–175; BP diastolic 56–87; PULSE 62–88; RESP 16–20; TEMP 36.5–36.8; O2SAT 93–97
--- NOTE | 2022-06-11 02:14 | MHC.EDTECH ---
Patient ambulated with no assist to bathroom, Vitals taken ,patient is lying comfortable at this time. Call tapia in reach
[2022-06-11] MEDS: Acetaminophen 325 MG TABLET 650 MG PO ×3 (05:17→20:19)
[2022-06-11] MEDS: Omeprazole 20 MG CAPSULE.DR PO (06:22)
--- NOTE | 2022-06-11 06:36 | PC.NURSE ---
Pt reports effectiveness to Tylenol given for headache. Pt ambulated to the BR with steady gait.
[2022-06-11] MEDS: buPROPion HCl XL 150 MG TAB.ER.24H PO (08:18)
[2022-06-11] MEDS: buPROPion HCl XL 300 MG TAB.ER.24H PO (08:18)
[2022-06-11] MEDS: Digoxin 0.125 MG TABLET PO (08:19)
[2022-06-11] MEDS: dilTIAZem HCL CD 180 MG CAP.ER.24H 360 MG PO (08:19)
[2022-06-11] MEDS: Apixaban 5 MG TABLET PO ×2 (08:19→20:10)
[2022-06-11] MEDS: methylPREDNISolone Sod Succ 40 MG/ML VIAL IVPUSH ×2 (08:19→20:10)
[2022-06-11] MEDS: Albuterol/Iprat 2.5/0.5MG 3 ML AMPUL.NEB INHALE ×3 (08:38→20:28)
--- NOTE | 2022-06-11 09:31 | PC.NURSE ---
Meds called from pharmacy
[2022-06-11] MEDS: oxyBUTYnin chloride ER 5 MG TAB.ER.24 10 MG PO (09:45)
[2022-06-11] MEDS: Montelukast Sodium 10 MG TABLET PO (09:45)
[2022-06-11] MEDS: lamoTRIgine 100 MG TABLET 200 MG PO (09:46)
--- NOTE | 2022-06-11 10:37 | P.PNIM_ITS ---
Subjective Subjective Date of Service: 06/11/22 Interval History: f/u on PNA, asthma exacerbation Interval history: feels better but not optimal . Physical Exam Vital Signs: Vital Signs: Last Vital Signs Temp 97.9 F 06/11/22 08:03 Pulse 77 06/11/22 08:46 Resp 16 06/11/22 08:46 BP 172/84 H 06/11/22 08:03 Pulse Ox 95 06/11/22 08:03 O2 Del Method Nasal Cannula 06/11/22 08:03 O2 Flow Rate 4 06/11/22 08:03 BMI result Body Mass Index 31.1 Const: Other: General: AO X 3, no acute distress Resp: CTA bilateral CVS: S1,S2,RRR GI: +BS, NT, no distention Skin: No rash Neuro: motor grossly intact Psych: appropriate affect Objective Data Active Medications Acetaminophen (Acetaminophen 325 Mg Tablet) 650 mg PO Q6H PRN PRN Reason: Pain, Mild (Pain Scale 1-3) Last Admin: 06/11/22 05:17 Dose: 650 mg Documented By: TATIANNA Albuterol Sulfate (Albuterol Sulfate 90 Mcg 8 Gm Inhaler) 2 puff INHALE Q4H PRN PRN Reason: shortness of breath or wheezing Albuterol/Ipratropium (Albuterol/Iprat 2.5/0.5mg 3 Ml Ampul.Neb) 3 ml INHALE RQ4H WHILE AWAKE [facility] Last Admin: 06/11/22 08:38 Dose: 3 ml Documented By: ANUJA Apixaban (Apixaban 5 Mg Tablet) 5 mg PO BID [facility] Last Admin: 06/11/22 08:19 Dose: 5 mg Documented By: PITA Benzonatate (Benzonatate 100 Mg Capsule) 100 mg PO TID PRN PRN Reason: Cough Bupropion HCl (Bupropion Hcl Xl 300 Mg Tab.Er.24h) 300 mg PO DAILY [facility] Last Admin: 06/11/22 08:18 Dose: 300 mg Documented By: PITA Bupropion HCl (Bupropion Hcl Xl 150 Mg Tab.Er.24h) 150 mg PO DAILY [facility] Last Admin: 06/11/22 08:18 Dose: 150 mg Documented By: PITA Digoxin (Digoxin 0.125 Mg Tablet) 0.125 mg PO DAILY [facility] Last Admin: 06/11/22 08:19 Dose: 0.125 mg Documented By: PITA Diltiazem HCl (Diltiazem Hcl Cd 180 Mg Cap.Er.24h) 360 mg PO DAILY [facility]; Protocol Last Admin: 06/11/22 08:19 Dose: 360 mg Documented By: PITA Docusate Sodium (Docusate Sodium 100 Mg Capsule) 100 mg PO DAILY PRN PRN Reason: Constipation Fluticasone Propionate (Fluticasone Propionate Nasal 16 Gm Gove) 1 spray NOSTRIL-B BID PRN PRN Reason: Allergy Symptoms Ceftriaxone Sodium 1 gm/ (Sodium Chloride) 50 mls @ 100 mls/hr IV Q24H [facility] Azithromycin 500 mg/ Sodium (Chloride) 250 mls @ 125 mls/hr IV Q24H [facility] Lamotrigine (Lamotrigine 100 Mg Tablet) 100 mg PO BEDTIME [facility] Last Admin: 06/10/22 23:14 Dose: 100 mg Documented By: TATIANNA Lamotrigine (Lamotrigine 100 Mg Tablet) 200 mg PO DAILY [facility] Last Admin: 06/11/22 09:46 Dose: 200 mg Documented By: PITA Methylprednisolone Sodium Succinate (Methylprednisolone Sod Succ 40 Mg/Ml Vial) 40 mg IVPUSH Q12H [facility] Last Admin: 06/11/22 08:19 Dose: 40 mg Documented By: PITA Montelukast Sodium (Montelukast Sodium 10 Mg Tablet) 10 mg PO DAILY [facility] Last Admin: 06/11/22 09:45 Dose: 10 mg Documented By: PITA Non-Formulary Medication (Oqiiyztskln-Bsiyyleta-Fawmtoat [Trelegy Ellipta]) 1 inhalation INHALE RDAILY [facility] Omeprazole (Omeprazole 20 Mg Capsule.Dr) 20 mg PO DAILY@0630 [facility] Last Admin: 06/11/22 06:22 Dose: 20 mg Documented By: TATIANNA Ondansetron HCl (Ondansetron Hcl 4 Mg/2 Ml Vial) 4 mg IVPUSH Q8H PRN PRN Reason: Nausea and Vomiting Oxybutynin Chloride (Oxybutynin Chloride Er 5 Mg Tab.Er.24) 10 mg PO DAILY [facility] Last Admin: 06/11/22 09:45 Dose: 10 mg Documented By: PITA Pharmacy Consult (Consult Rx Perform Med Rec) 1 each MISCELLANE ONCE PRN PRN Reason: Consult order Sodium Chloride (0.9 % Sodium Chloride Flush 3 Ml Syringe) 3 ml IVFLUSH QSHIFT [facility] Last Admin: 06/11/22 07:08 Dose: Not Given Documented By: SYDNEE Non-Admin Reason: Med Not Available Labs 06/10/22 16:22 06/10/22 16:22 Labs: Laboratory Results - last 24 hr 06/10/22 06/10/22 06/10/22 16:21 16:22 16:22 MCV 86.1 MCH 25.7 L MCHC 29.8 L RDW 24.4 H Plt Count 482 H D MPV 9.5 Immature Gran % (Auto) 0.9 H Neut % (Auto) 69.2 Lymph % (Auto) 17.6 L [place] % (Auto) 7.3 Eos % (Auto) 4.0 Baso % (Auto) 1.0 Lymph # (Auto) 1.8 [place] # (Auto) 0.7 Eos # (Auto) 0.4 Baso # (Auto) 0.1 Abs Immat Gran (auto) 0.09 H Absolute Neuts (auto) 7.0 Absolute Nucleated RBC 0.000 Nucleated RBC % (auto) 0.0 Anion Gap 13 Estim Creat Clear Calc 67.9 Estimated GFR > 60 Random Glucose 75 Lactic Acid 0.8 Calcium 9.3 Magnesium 2.1 Total Bilirubin 0.5 Direct Bilirubin 0.2 AST 17 ALT 10 Alkaline Phosphatase 97 B-Natriuretic Peptide Total Protein 6.3 L Albumin 3.4 L Urine Color Urine Appearance Urine pH Ur Specific [place] Urine Protein Urine Glucose (UA) Urine Ketones Urine Blood Urine Nitrite Ur Leukocyte Esterase Urine RBC Urine WBC Ur Squamous Epith Cells Urine Bacteria Hyaline Casts Digoxin Influenza Type A (PCR) Influenza Type B (PCR) RSV RNA Qual (PCR) SARS-CoV-2 RNA (RT-PCR) 06/10/22 06/10/22 06/10/22 16:22 19:32 19:32 MCV MCH MCHC RDW Plt Count MPV Immature Gran % (Auto) Neut % (Auto) Lymph % (Auto) [place] % (Auto) Eos % (Auto) Baso % (Auto) Lymph # (Auto) [place] # (Auto) Eos # (Auto) Baso # (Auto) Abs Immat Gran (auto) Absolute Neuts (auto) Absolute Nucleated RBC Nucleated RBC % (auto) Anion Gap Estim Creat Clear Calc Estimated GFR Random Glucose Lactic Acid Calcium Magnesium Total Bilirubin Direct Bilirubin AST ALT Alkaline Phosphatase B-Natriuretic Peptide 218 H Total Protein Albumin Urine Color Urine Appearance Urine pH Ur Specific [place] Urine Protein Urine Glucose (UA) Urine Ketones Urine Blood Urine Nitrite Ur Leukocyte Esterase Urine RBC Urine WBC Ur Squamous Epith Cells Urine Bacteria Hyaline Casts Digoxin 0.8 Influenza Type A (PCR) NEGATIVE Influenza Type B (PCR) NEGATIVE RSV RNA Qual (PCR) NEGATIVE SARS-CoV-2 RNA (RT-PCR) NEGATIVE 06/10/22 19:35 MCV MCH MCHC RDW Plt Count MPV Immature Gran % (Auto) Neut % (Auto) Lymph % (Auto) [place] % (Auto) Eos % (Auto) Baso % (Auto) Lymph # (Auto) [place] # (Auto) Eos # (Auto) Baso # (Auto) Abs Immat Gran (auto) Absolute Neuts (auto) Absolute Nucleated RBC Nucleated RBC % (auto) Anion Gap Estim Creat Clear Calc Estimated GFR Random Glucose Lactic Acid Calcium Magnesium Total Bilirubin Direct Bilirubin AST ALT Alkaline Phosphatase B-Natriuretic Peptide Total Protein Albumin Urine Color Yellow Urine Appearance Clear Urine pH 6.0 Ur Specific [place] 1.015 Urine Protein Negative Urine Glucose (UA) Negative Urine Ketones Negative Urine Blood Negative Urine Nitrite Negative Ur Leukocyte Esterase Trace H Urine RBC 0-2 Urine WBC 0-5 Ur Squamous Epith Cells 0-2 Urine Bacteria None Seen Hyaline Casts 0-2 Digoxin Influenza Type A (PCR) Influenza Type B (PCR) RSV RNA Qual (PCR) SARS-CoV-2 RNA (RT-PCR) Assessment and Plan (1) Community acquired pneumonia: Status: Acute (2) Asthma exacerbation: Status: Acute Plan 71-year-old female with a PMH significant for?mild persistent asthma, paroxysmal AFib on Eliquis, HTN, history of falls, and anemia who presents to the ED from PCP for treatment with IV antibiotics of community-acquired pneumonia that has failed outpatient therapy. Admitted for IV antibiotics Community-acquired pneumonia in the setting of mild persistent asthma Patient failed outpatient therapy on Augmentin x7 doses IV antibiotics: ceftriaxone and azithromycin, started 06/10/22 DuoNebs p.r.n. Solu-Medrol 40 mg q.12 Titrate supplemental O2 >92, wean as tolerated Continue home inhalers Paroxysmal AFib, in sinus Continue Eliquis, diltiazem Normocytic anemia, H/H stable. HTN Reasonably controlled Contine diliazem DVT Prophylaxis: On Eliquis Need for inpatient: PNA failed outpatient Abx, exacerbation of asthma on IV steroid Probably ok to discharge by tomorrow Time Spent With Patient Time: Total time managing care of this patient today ____ minutes. Quality Stroke Does the patient have a stroke diagnosis?: No VTE Prior VTE?: No VTE Risk Level:: Medical - moderate - high VTE Device Contraindication: Treatment Not Indicated VTE Drug Contraindication: N/A - Med Ordered
[2022-06-11] MEDS: Albuterol Sulfate 90 MCG 8 GM INHALER 2 PUFF INHALE (11:24)
--- NOTE | 2022-06-11 13:39 | PC.NURSE ---
PT REPORTS MILD HEADACHE SINCE THIS AM. REQUESTING PO TYLENOL MEDICATED ORDERED LIGHTS DIMMED FOR COMFORT. WILL CONTINUE TO MONITOR
[2022-06-11] MEDS: 0.9 % Sodium Chloride Flush 3 ML SYRINGE IVFLUSH (16:38)
[2022-06-11] MEDS: cefTRIAXone sodium 1 GM in 0.9 % Sodium Chloride 50 ML IV (17:10)
[2022-06-11] MEDS: Azithromycin 500 MG in 0.9 % Sodium Chloride 250 ML 125 MG IV (18:03)
[2022-06-11] MEDS: ondansetron HCL 4 MG/2 ML VIAL IVPUSH (18:35)
[2022-06-11] MEDS: lamoTRIgine 100 MG TABLET PO (20:11)
[2022-06-11] MEDS: Benzonatate 100 MG CAPSULE PO (20:19)
[2022-06-12] VITALS (10 sets, daily range): BP systolic 124–157; BP diastolic 65–71; PULSE 63–98; RESP 16–20; TEMP 36.3–36.6; O2SAT 89–100
[2022-06-12] MEDS: Albuterol Sulfate 90 MCG 8 GM INHALER 2 PUFF INHALE ×2 (00:44→14:12)
[2022-06-12] MEDS: 0.9 % Sodium Chloride Flush 3 ML SYRINGE IVFLUSH ×4 (00:59→23:58)
[2022-06-12] MEDS: Acetaminophen 325 MG TABLET 650 MG PO ×2 (02:24→19:33)
[2022-06-12] MEDS: Omeprazole 20 MG CAPSULE.DR PO (04:49)
[2022-06-12] MEDS: Calcium Carbonate 750 MG TAB.CHEW PO (05:08)
[2022-06-12] MEDS: Benzonatate 100 MG CAPSULE PO ×3 (05:41→19:34)
[2022-06-12] MEDS: Albuterol/Iprat 2.5/0.5MG 3 ML AMPUL.NEB INHALE ×4 (08:10→20:24)
[2022-06-12] MEDS: FLUTICASONE UMECLIDIN VILANTER 1 EACH INHALE (08:12)
[2022-06-12] MEDS: Montelukast Sodium 10 MG TABLET PO (08:33)
[2022-06-12] MEDS: Digoxin 0.125 MG TABLET PO (08:33)
[2022-06-12] MEDS: lamoTRIgine 100 MG TABLET 200 MG PO (08:34)
[2022-06-12] MEDS: Apixaban 5 MG TABLET PO ×2 (08:34→19:34)
[2022-06-12] MEDS: dilTIAZem HCL CD 180 MG CAP.ER.24H 360 MG PO (08:34)
[2022-06-12] MEDS: oxyBUTYnin chloride ER 5 MG TAB.ER.24 10 MG PO (08:34)
[2022-06-12] MEDS: methylPREDNISolone Sod Succ 40 MG/ML VIAL IVPUSH (08:35)
[2022-06-12] MEDS: buPROPion HCl XL 150 MG TAB.ER.24H PO (08:35)
[2022-06-12] MEDS: buPROPion HCl XL 300 MG TAB.ER.24H PO (08:35)
--- NOTE | 2022-06-12 15:05 | P.PNIM_ITS ---
Subjective Subjective Date of Service: 06/12/22 Interval History: States no appreciable improvement in breathing since admission. Remains short of breath with minimal exertion Review of Systems Denies chest pain Admits shortness of breath with minimal exertion Denies nausea vomiting diarrhea Denies fever and chills Physical Exam Vital Signs: Vital Signs: Last Vital Signs Temp 97.9 F 06/12/22 08:00 Pulse 96 06/12/22 14:12 Resp 18 06/12/22 14:12 BP 140/65 H 06/12/22 08:00 Pulse Ox 95 06/12/22 08:00 O2 Del Method Nasal Cannula 06/12/22 08:00 O2 Flow Rate 3 06/12/22 08:00 BMI result Body Mass Index 31.1 Const: Other: Awake alert able speak in full sentences Resp: Other: Extremely diminished at bases with scattered rhonchi throughout diffuse expiratory wheezes Cardio: Other: No S4; positive S1-S2; no S3 murmurs rubs or gallops GI: Other: Soft nontender nondistended normoactive bowel sounds Extrem: Other: No edema bilaterally Objective Data Active Medications Acetaminophen (Acetaminophen 325 Mg Tablet) 650 mg PO Q6H PRN PRN Reason: Pain, Mild (Pain Scale 1-3) Last Admin: 06/12/22 02:24 Dose: 650 mg Documented By: ITFFANIE Albuterol Sulfate (Albuterol Sulfate 90 Mcg 8 Gm Inhaler) 2 puff INHALE Q4H PRN PRN Reason: shortness of breath or wheezing Last Admin: 06/12/22 14:12 Dose: 2 puff Documented By: DOROTEO Albuterol/Ipratropium (Albuterol/Iprat 2.5/0.5mg 3 Ml Ampul.Neb) 3 ml INHALE RQ4H WHILE AWAKE [facility] Last Admin: 06/12/22 11:58 Dose: 3 ml Documented By: DOROTEO Apixaban (Apixaban 5 Mg Tablet) 5 mg PO BID [facility] Last Admin: 06/12/22 08:34 Dose: 5 mg Documented By: JUMA Benzonatate (Benzonatate 100 Mg Capsule) 100 mg PO TID PRN PRN Reason: Cough Last Admin: 06/12/22 14:06 Dose: 100 mg Documented By: JUMA Bupropion HCl (Bupropion Hcl Xl 300 Mg Tab.Er.24h) 300 mg PO DAILY [facility] Last Admin: 06/12/22 08:35 Dose: 300 mg Documented By: JUMA Bupropion HCl (Bupropion Hcl Xl 150 Mg Tab.Er.24h) 150 mg PO DAILY [facility] Last Admin: 06/12/22 08:35 Dose: 150 mg Documented By: JUMA Calcium Carbonate (Calcium Carbonate 750 Mg Tab.Chew) 750 mg PO Q6H PRN PRN Reason: Heartburn Last Admin: 06/12/22 05:08 Dose: 750 mg Documented By: TIFFANIE Digoxin (Digoxin 0.125 Mg Tablet) 0.125 mg PO DAILY [facility] Last Admin: 06/12/22 08:33 Dose: 0.125 mg Documented By: JUMA Diltiazem HCl (Diltiazem Hcl Cd 180 Mg Cap.Er.24h) 360 mg PO DAILY [facility]; Protocol Last Admin: 06/12/22 08:34 Dose: 360 mg Documented By: JUMA Docusate Sodium (Docusate Sodium 100 Mg Capsule) 100 mg PO DAILY PRN PRN Reason: Constipation Fluticasone Propionate (Fluticasone Propionate Nasal 16 Gm [place]) 1 spray NOSTRIL-B BID PRN PRN Reason: Allergy Symptoms Ceftriaxone Sodium 1 gm/ (Sodium Chloride) 50 mls @ 100 mls/hr IV Q24H [facility] Last Infusion: 06/11/22 17:49 Dose: 0 mls/hr Documented By: CELIA Azithromycin 500 mg/ Sodium (Chloride) 250 mls @ 125 mls/hr IV Q24H [facility] Last Infusion: 06/11/22 20:11 Dose: 0 mls/hr Documented By: CELIA Lamotrigine (Lamotrigine 100 Mg Tablet) 100 mg PO BEDTIME [facility] Last Admin: 06/11/22 20:11 Dose: 100 mg Documented By: CELIA Lamotrigine (Lamotrigine 100 Mg Tablet) 200 mg PO DAILY [facility] Last Admin: 06/12/22 08:34 Dose: 200 mg Documented By: JUMA Methylprednisolone Sodium Succinate (Methylprednisolone Sod Succ 125 Mg/2 Ml Vial) 60 mg IVPUSH Q6H [facility] Montelukast Sodium (Montelukast Sodium 10 Mg Tablet) 10 mg PO DAILY [facility] Last Admin: 06/12/22 08:33 Dose: 10 mg Documented By: JUMA Non-Formulary Medication (Vooilrfweoo-Zwxdglcac-Yotdsyql [Trelegy Ellipta]) 1 inhalation INHALE RDAILY [facility] Last Admin: 06/12/22 08:12 Dose: 1 inhalation Documented By: DOROTEO Omeprazole (Omeprazole 20 Mg Capsule.Dr) 20 mg PO DAILY@0630 [facility] Last Admin: 06/12/22 04:49 Dose: 20 mg Documented By: TIFFANIE Ondansetron HCl (Ondansetron Hcl 4 Mg/2 Ml Vial) 4 mg IVPUSH Q8H PRN PRN Reason: Nausea and Vomiting Last Admin: 06/11/22 18:35 Dose: 4 mg Documented By: CELIA Oxybutynin Chloride (Oxybutynin Chloride Er 5 Mg Tab.Er.24) 10 mg PO DAILY [facility] Last Admin: 06/12/22 08:34 Dose: 10 mg Documented By: JUMA Pharmacy Consult (Consult Rx Perform Med Rec) 1 each MISCELLANE ONCE PRN PRN Reason: Consult order Sodium Chloride (0.9 % Sodium Chloride Flush 3 Ml Syringe) 3 ml IVFLUSH QSHIFT [facility] Last Admin: 06/12/22 08:35 Dose: 3 ml Documented By: JUMA Labs 06/10/22 16:22 06/10/22 16:22 Microbiology Microbiology Results: Microbiology 06/10/22 17:22 Blood Culture - Preliminary Blood - Venous No growth after 24 hours. 06/10/22 16:30 Blood Culture - Preliminary Blood - Venous No growth after 24 hours. Assessment and Plan (1) Community acquired pneumonia: Status: Acute (2) Asthma exacerbation: Status: Acute (3) Paroxysmal A-fib: Status: Acute (4) Hypertension: Status: Acute Plan 71-year-old female with a PMH significant for?mild persistent asthma, paroxysmal AFib on Eliquis, HTN, history of falls, and anemia who presents to the ED from PCP for treatment with IV antibiotics of community-acquired pneumonia that has failed outpatient therapy. Admitted for IV antibiotics 1.Community-acquired pneumonia in backdrop of mild persistent asthma - ceftriaxone/azithromycin, (2) -DuoNebs p.r.n. -increase Solu-Medrol to 60mg q6h -Titrate supplemental O2 >92, wean as tolerated -Continue home inhalers 2.Paroxysmal AFib -NSR @ present -Eliquis, diltiazem 3.HTN -acceptable control on current therapies -adjust as indicated Full code Hortensia Requires ongoing hospitalization for IV antibiotics to treat community-acquired pneumonia secondary to failed outpatient therapies Time Spent With Patient Time: Total time managing care of this patient today ____ minutes. Quality Stroke Does the patient have a stroke diagnosis?: No VTE Prior VTE?: No VTE Risk Level:: Medical - moderate - high VTE Device Contraindication: Treatment Not Indicated VTE Drug Contraindication: N/A - Med Ordered
[2022-06-12] MEDS: methylPREDNISolone Sod Succ 125 MG/2 ML VIAL 60 MG IVPUSH ×2 (15:23→22:06)
--- NOTE | 2022-06-12 15:27 | MHC.CM.PN ---
PATIENT LIVES WITH SPOUSE SHE RECENTLY WAS HERE UNDER OBS STATUS AND DC HOME WITH [facility] FOR RN SKILLS AND HOME P.T. REFERRAL TO BE PLACED TO FOLLOW. NO HCP ON FILE PLAN IS HERE FOR IV ABX AND MAY BE STAYING OVER THE WEEKEND. CASE MANAGEMENT FOLLOWING. IMM 06/12 IN CHART
[2022-06-12] MEDS: guaiFENesin 200 MG/10 ML 10 ML LIQUID PO (17:27)
[2022-06-12] MEDS: cefTRIAXone sodium 1 GM in 0.9 % Sodium Chloride 50 ML IV (17:28)
[2022-06-12] MEDS: Azithromycin 500 MG in 0.9 % Sodium Chloride 250 ML 125 MG IV (19:25)
[2022-06-12] MEDS: lamoTRIgine 100 MG TABLET PO (19:34)
[2022-06-13] VITALS (10 sets, daily range): BP systolic 137–164; BP diastolic 65–75; PULSE 63–88; RESP 14–20; TEMP 36.2–36.9; O2SAT 85–96
[2022-06-13] MEDS: guaiFENesin 200 MG/10 ML 10 ML LIQUID PO ×4 (00:17→21:01)
[2022-06-13] MEDS: Albuterol Sulfate 90 MCG 8 GM INHALER 2 PUFF INHALE ×2 (02:26→23:20)
[2022-06-13] MEDS: methylPREDNISolone Sod Succ 125 MG/2 ML VIAL 60 MG IVPUSH ×4 (03:48→21:01)
[2022-06-13] MEDS: Omeprazole 20 MG CAPSULE.DR PO (06:18)
[2022-06-13 07:11] LABS: Basophils Percent Auto 0.1 % (0-2); Hematocrit 32.8 % (37.0-47.0); Hemoglobin 9.8 g/dl (12.0-16.0); Imm Gran Pct Auto 1.3 % (0.0-0.4); Lymphocytes Absolute Auto 0.8 X10*3/uL (1.2-4.9); Lymphocytes Percent Auto 5.3 % (20-40); MANUAL DIFF FLAG SCAN; Mean Corpuscular HGB Conc 29.9 g/dl (31.0-35.0); Mean Corpuscular Hemoglobin 25.9 pg (27.0-33.0); Mean Corpuscular Volume 86.5 fL (80.0-98.0); Mean Platelet Volume 9.9 fL (9.4-12.3); Monocytes Absolute Auto 0.1 X10*3/uL (0.1-1.2); Monocytes Percent Auto 0.9 % (2-11); Neutrophils Percent Auto 92.4 % (45-73); Platelet Count 442 X10*3/uL (160-400); Red Blood Count 3.79 X10*6/uL (4.20-5.50); Red Cell Distribution Width 24.5 % (11.0-16.0); SCAN SMEAR FLAG 1; White Blood Count 15.2 X10*3/uL (4.8-10.8)
[2022-06-13 07:22] LABS: Alanine Aminotransferase 16 U/L (0-31); Albumin Level 3.4 g/dL (3.5-5.0); Alkaline Phosphatase 81 U/L (39-117); Anion Gap 16 (12-20); Aspartate Amino Transferase 19 U/L (5-31); Bilirubin Total 0.5 mg/dL (0.0-1.0); Blood Urea Nitrogen 16 mg/dL (9-16); Calcium 9.6 mg/dL (8.4-10.2); Carbon Dioxide 24 mmol/L (22-29); Chloride 107 mmol/L (96-108); Creatinine Clr Calc Pharmacy 70.8; Estimated Glomerular Filt Rate > 60; Glucose Fasting 124 mg/dL (60-99); Potassium 4.5 mmol/L (3.3-5.1); Sodium 142 mmol/L (135-145); Total Protein 6.2 g/dL (6.5-8.0)
[2022-06-13 07:35] LABS: SLIDE REVIEW VERIFIED
[2022-06-13] MEDS: Albuterol/Iprat 2.5/0.5MG 3 ML AMPUL.NEB INHALE ×4 (08:19→20:15)
[2022-06-13] MEDS: FLUTICASONE UMECLIDIN VILANTER 1 EACH INHALE (08:19)
[2022-06-13] MEDS: Digoxin 0.125 MG TABLET PO (08:57)
[2022-06-13] MEDS: Montelukast Sodium 10 MG TABLET PO (08:57)
[2022-06-13] MEDS: buPROPion HCl XL 300 MG TAB.ER.24H PO (08:57)
[2022-06-13] MEDS: buPROPion HCl XL 150 MG TAB.ER.24H PO (08:57)
[2022-06-13] MEDS: Apixaban 5 MG TABLET PO ×2 (08:57→21:01)
[2022-06-13] MEDS: oxyBUTYnin chloride ER 5 MG TAB.ER.24 10 MG PO (08:57)
[2022-06-13] MEDS: lamoTRIgine 100 MG TABLET 200 MG PO (08:58)
[2022-06-13] MEDS: 0.9 % Sodium Chloride Flush 3 ML SYRINGE IVFLUSH ×3 (08:58→21:02)
[2022-06-13] MEDS: dilTIAZem HCL CD 180 MG CAP.ER.24H 360 MG PO (08:58)
--- NOTE | 2022-06-13 13:11 | MHC.CM.PN ---
PATIENT IMPROVING SLOWLY. PLAN IS HERE OVER WEEKEND. [facility] MADE AWARE [facility] [place].
--- NOTE | 2022-06-13 15:35 | P.PNIM_ITS ---
Subjective Subjective Date of Service: 06/13/22 Interval History: No acute issues overnight. Minimal improvement over last 24 hours Review of Systems Denies chest pain Admits shortness of breath with minimal exertion Denies nausea vomiting diarrhea Denies fever and chills Physical Exam Vital Signs: Vital Signs: Last Vital Signs Temp 98.5 F 06/13/22 07:26 Pulse 87 06/13/22 15:19 Resp 18 06/13/22 15:19 BP 145/75 H 06/13/22 07:26 Pulse Ox 90 L 06/13/22 07:26 O2 Del Method Nasal Cannula 06/13/22 07:26 O2 Flow Rate 2.0 06/13/22 07:26 BMI result Body Mass Index 31.1 Const: Other: Awake alert able speak in full sentences Resp: Other: Extremely diminished at bases with scattered rhonchi throughout diffuse expiratory wheezes Cardio: Other: No S4; positive S1-S2; no S3 murmurs rubs or gallops GI: Other: Soft nontender nondistended normoactive bowel sounds Extrem: Other: No edema bilaterally Objective Data Active Medications Acetaminophen (Acetaminophen 325 Mg Tablet) 650 mg PO Q6H PRN PRN Reason: Pain, Mild (Pain Scale 1-3) Last Admin: 06/12/22 19:33 Dose: 650 mg Documented By: WINSOME Albuterol Sulfate (Albuterol Sulfate 90 Mcg 8 Gm Inhaler) 2 puff INHALE Q4H PRN PRN Reason: shortness of breath or wheezing Last Admin: 06/13/22 02:26 Dose: 2 puff Documented By: MOE Albuterol/Ipratropium (Albuterol/Iprat 2.5/0.5mg 3 Ml Ampul.Neb) 3 ml INHALE RQ4H WHILE AWAKE [facility] Last Admin: 06/13/22 15:18 Dose: 3 ml Documented By: NATALYA Apixaban (Apixaban 5 Mg Tablet) 5 mg PO BID [facility] Last Admin: 06/13/22 08:57 Dose: 5 mg Documented By: JUMA Benzonatate (Benzonatate 100 Mg Capsule) 100 mg PO TID PRN PRN Reason: Cough Last Admin: 06/12/22 19:34 Dose: 100 mg Documented By: WINSOME Bupropion HCl (Bupropion Hcl Xl 300 Mg Tab.Er.24h) 300 mg PO DAILY [facility] Last Admin: 06/13/22 08:57 Dose: 300 mg Documented By: JUMA Bupropion HCl (Bupropion Hcl Xl 150 Mg Tab.Er.24h) 150 mg PO DAILY [facility] Last Admin: 06/13/22 08:57 Dose: 150 mg Documented By: JUMA Calcium Carbonate (Calcium Carbonate 750 Mg Tab.Chew) 750 mg PO Q6H PRN PRN Reason: Heartburn Last Admin: 06/12/22 05:08 Dose: 750 mg Documented By: TIFFANIE Digoxin (Digoxin 0.125 Mg Tablet) 0.125 mg PO DAILY [facility] Last Admin: 06/13/22 08:57 Dose: 0.125 mg Documented By: JUMA Diltiazem HCl (Diltiazem Hcl Cd 180 Mg Cap.Er.24h) 360 mg PO DAILY [facility]; Protocol Last Admin: 06/13/22 08:58 Dose: 360 mg Documented By: JUMA Docusate Sodium (Docusate Sodium 100 Mg Capsule) 100 mg PO DAILY PRN PRN Reason: Constipation Fluticasone Propionate (Fluticasone Propionate Nasal 16 Gm [place]) 1 spray NOSTRIL-B BID PRN PRN Reason: Allergy Symptoms Guaifenesin (Guaifenesin 200 Mg/10 Ml 10 Ml Liquid) 10 ml PO Q6H PRN PRN Reason: Cough Last Admin: 06/13/22 15:20 Dose: 10 ml Documented By: JUMA Ceftriaxone Sodium 1 gm/ (Sodium Chloride) 50 mls @ 100 mls/hr IV Q24H [facility] Last Infusion: 06/12/22 19:24 Dose: 0 mls/hr Documented By: WINSOME Azithromycin 500 mg/ Sodium (Chloride) 250 mls @ 125 mls/hr IV Q24H [facility] Last Infusion: 06/12/22 21:32 Dose: 0 mls/hr Documented By: WINSOME Lamotrigine (Lamotrigine 100 Mg Tablet) 100 mg PO BEDTIME [facility] Last Admin: 06/12/22 19:34 Dose: 100 mg Documented By: WINSOME Lamotrigine (Lamotrigine 100 Mg Tablet) 200 mg PO DAILY [facility] Last Admin: 06/13/22 08:58 Dose: 200 mg Documented By: JUMA Methylprednisolone Sodium Succinate (Methylprednisolone Sod Succ 125 Mg/2 Ml Vial) 60 mg IVPUSH Q6H [facility] Last Admin: 06/13/22 15:20 Dose: 60 mg Documented By: JUMA Montelukast Sodium (Montelukast Sodium 10 Mg Tablet) 10 mg PO DAILY [facility] Last Admin: 06/13/22 08:57 Dose: 10 mg Documented By: JUMA Non-Formulary Medication (Iybswkoqdyx-Fcrlvrljr-Bbboawrb [Trelegy Ellipta]) 1 inhalation INHALE RDAILY [facility] Last Admin: 06/13/22 08:19 Dose: 1 inhalation Documented By: NATALYA Omeprazole (Omeprazole 20 Mg Capsule.Dr) 20 mg PO DAILY@0630 [facility] Last Admin: 06/13/22 06:18 Dose: 20 mg Documented By: TIFFANIE Ondansetron HCl (Ondansetron Hcl 4 Mg/2 Ml Vial) 4 mg IVPUSH Q8H PRN PRN Reason: Nausea and Vomiting Last Admin: 06/11/22 18:35 Dose: 4 mg Documented By: CELIA Oxybutynin Chloride (Oxybutynin Chloride Er 5 Mg Tab.Er.24) 10 mg PO DAILY [facility] Last Admin: 06/13/22 08:57 Dose: 10 mg Documented By: JUMA Pharmacy Consult (Consult Rx Perform Med Rec) 1 each MISCELLANE ONCE PRN PRN Reason: Consult order Sodium Chloride (0.9 % Sodium Chloride Flush 3 Ml Syringe) 3 ml IVFLUSH QSHIFT [facility] Last Admin: 06/13/22 15:20 Dose: 3 ml Documented By: JUMA Labs 06/13/22 06:13 06/13/22 06:13 Labs: Laboratory Results - last 24 hr 06/13/22 06/13/22 06:13 06:13 MCV 86.5 MCH 25.9 L MCHC 29.9 L RDW 24.5 H Plt Count 442 H MPV 9.9 Immature Gran % (Auto) 1.3 H Neut % (Auto) 92.4 H Lymph % (Auto) 5.3 L [place] % (Auto) 0.9 L Eos % (Auto) 0.0 Baso % (Auto) 0.1 Lymph # (Auto) 0.8 L [place] # (Auto) 0.1 Eos # (Auto) 0.0 Baso # (Auto) 0.0 Abs Immat Gran (auto) 0.20 H Absolute Neuts (auto) 14.0 H Absolute Nucleated RBC 0.000 Nucleated RBC % (auto) 0.0 Smear Tech's Comments VERIFIED Anion Gap 16 Estim Creat Clear Calc 70.8 Estimated GFR > 60 Fasting Glucose 124 H Calcium 9.6 Total Bilirubin 0.5 AST 19 ALT 16 Alkaline Phosphatase 81 Total Protein 6.2 L Albumin 3.4 L Microbiology Microbiology Results: Microbiology 06/10/22 17:22 Blood Culture - Preliminary Blood - Venous No growth after 48 hours. 06/10/22 16:30 Blood Culture - Preliminary Blood - Venous No growth after 48 hours. Assessment and Plan (1) Community acquired pneumonia: Status: Acute (2) Asthma exacerbation: Status: Acute (3) Paroxysmal A-fib: Status: Acute Plan 71-year-old female with a PMH significant for?mild persistent asthma, paroxysmal AFib on Eliquis, HTN, history of falls, and anemia who presents to the ED from PCP for treatment with IV antibiotics of community-acquired pneumonia that has failed outpatient therapy. Admitted for IV antibiotics 1.Community-acquired pneumonia in backdrop of mild persistent asthma... Minimal improvement thus far - ceftriaxone/azithromycin, (3) -DuoNebs p.r.n. -increase Solu-Medrol to 60mg q6h -Titrate supplemental O2 >92, wean as tolerated -Continue home inhalers 2.Paroxysmal AFib -NSR @ present -Eliquis, diltiazem 3.HTN -acceptable control on current therapies -adjust as indicated Full code Ericais Requires ongoing hospitalization for IV antibiotics to treat community-acquired pneumonia secondary to failed outpatient therapies Time Spent With Patient Time: Total time managing care of this patient today ____ minutes. Quality Stroke Does the patient have a stroke diagnosis?: No VTE Prior VTE?: No VTE Risk Level:: Medical - moderate - high VTE Device Contraindication: Treatment Not Indicated VTE Drug Contraindication: N/A - Med Ordered
[2022-06-13] MEDS: cefTRIAXone sodium 1 GM in 0.9 % Sodium Chloride 50 ML IV (17:31)
[2022-06-13] MEDS: Azithromycin 500 MG in 0.9 % Sodium Chloride 250 ML 125 MG IV (18:28)
[2022-06-13] MEDS: Benzonatate 100 MG CAPSULE PO (21:01)
[2022-06-13] MEDS: lamoTRIgine 100 MG TABLET PO (21:01)
[2022-06-13] MEDS: Docusate Sodium 100 MG CAPSULE PO (21:01)
[2022-06-13] MEDS: Acetaminophen 325 MG TABLET 650 MG PO (21:01)
[2022-06-14] VITALS (9 sets, daily range): BP systolic 122–166; BP diastolic 61–68; PULSE 70–88; RESP 16–20; TEMP 36.5–37; O2SAT 91–97
[2022-06-14] MEDS: Albuterol/Iprat 2.5/0.5MG 3 ML AMPUL.NEB INHALE ×5 (02:48→21:32)
[2022-06-14] MEDS: methylPREDNISolone Sod Succ 125 MG/2 ML VIAL 60 MG IVPUSH ×4 (04:37→21:18)
[2022-06-14] MEDS: Omeprazole 20 MG CAPSULE.DR PO (06:14)
[2022-06-14] MEDS: Digoxin 0.125 MG TABLET PO (08:42)
[2022-06-14] MEDS: Apixaban 5 MG TABLET PO ×2 (08:42→21:18)
[2022-06-14] MEDS: Montelukast Sodium 10 MG TABLET PO (08:42)
[2022-06-14] MEDS: dilTIAZem HCL CD 180 MG CAP.ER.24H 360 MG PO (08:42)
[2022-06-14] MEDS: lamoTRIgine 100 MG TABLET 200 MG PO (08:43)
[2022-06-14] MEDS: buPROPion HCl XL 150 MG TAB.ER.24H PO (08:43)
[2022-06-14] MEDS: buPROPion HCl XL 300 MG TAB.ER.24H PO (08:43)
[2022-06-14] MEDS: oxyBUTYnin chloride ER 5 MG TAB.ER.24 10 MG PO (08:44)
[2022-06-14] MEDS: 0.9 % Sodium Chloride Flush 3 ML SYRINGE IVFLUSH ×3 (08:45→21:18)
[2022-06-14] MEDS: Acetaminophen 325 MG TABLET 650 MG PO (08:47)
[2022-06-14] MEDS: guaiFENesin 200 MG/10 ML 10 ML LIQUID PO ×2 (08:50→14:20)
[2022-06-14] MEDS: Benzonatate 100 MG CAPSULE PO ×2 (08:50→17:48)
[2022-06-14] MEDS: FLUTICASONE UMECLIDIN VILANTER 1 EACH INHALE (11:51)
--- NOTE | 2022-06-14 11:51 | HO.PM.IMPN ---
Subjective Subjective Date of Service: 06/14/22 Interval History: Slowly responding to therapy. Still nonproductive cough. Remains afebrile Review of Systems Denies chest pain Admits shortness of breath with minimal exertion Denies nausea vomiting diarrhea Denies fever and chills Physical Exam Vital Signs: Vital Signs: Last Vital Signs Temp 98.4 F 06/14/22 07:31 Pulse 77 06/14/22 08:38 Resp 16 06/14/22 08:38 BP 166/67 H 06/14/22 07:31 Pulse Ox 91 L 06/14/22 07:31 O2 Del Method Nasal Cannula 06/14/22 07:31 O2 Flow Rate 3.0 06/14/22 07:31 BMI result Body Mass Index 31.1 Const: Other: Awake alert able speak in full sentences Resp: Other: Extremely diminished at bases with scattered rhonchi throughout diffuse expiratory wheezes Cardio: Other: No S4; positive S1-S2; no S3 murmurs rubs or gallops GI: Other: Soft nontender nondistended normoactive bowel sounds Extrem: Other: No edema bilaterally Objective Data Active Medications Acetaminophen (Acetaminophen 325 Mg Tablet) 650 mg PO Q6H PRN PRN Reason: Pain, Mild (Pain Scale 1-3) Last Admin: 06/14/22 08:47 Dose: 650 mg Documented By: SIOMARA Albuterol Sulfate (Albuterol Sulfate 90 Mcg 8 Gm Inhaler) 2 puff INHALE Q4H PRN PRN Reason: shortness of breath or wheezing Last Admin: 06/13/22 23:20 Dose: 2 puff Documented By: MOE Albuterol/Ipratropium (Albuterol/Iprat 2.5/0.5mg 3 Ml Ampul.Neb) 3 ml INHALE RQ4H WHILE AWAKE [facility] Last Admin: 06/14/22 11:50 Dose: 3 ml Documented By: MONY Apixaban (Apixaban 5 Mg Tablet) 5 mg PO BID [facility] Last Admin: 06/14/22 08:42 Dose: 5 mg Documented By: SIOMARA Benzonatate (Benzonatate 100 Mg Capsule) 100 mg PO TID PRN PRN Reason: Cough Last Admin: 06/14/22 08:50 Dose: 100 mg Documented By: SIOMARA Bupropion HCl (Bupropion Hcl Xl 300 Mg Tab.Er.24h) 300 mg PO DAILY [facility] Last Admin: 06/14/22 08:43 Dose: 300 mg Documented By: SIOMARA Bupropion HCl (Bupropion Hcl Xl 150 Mg Tab.Er.24h) 150 mg PO DAILY [facility] Last Admin: 06/14/22 08:43 Dose: 150 mg Documented By: SIOMARA Calcium Carbonate (Calcium Carbonate 750 Mg Tab.Chew) 750 mg PO Q6H PRN PRN Reason: Heartburn Last Admin: 06/12/22 05:08 Dose: 750 mg Documented By: TIFFANIE Digoxin (Digoxin 0.125 Mg Tablet) 0.125 mg PO DAILY [facility] Last Admin: 06/14/22 08:42 Dose: 0.125 mg Documented By: SIOMARA Diltiazem HCl (Diltiazem Hcl Cd 180 Mg Cap.Er.24h) 360 mg PO DAILY [facility]; Protocol Last Admin: 06/14/22 08:42 Dose: 360 mg Documented By: SIOMARA Docusate Sodium (Docusate Sodium 100 Mg Capsule) 100 mg PO DAILY PRN PRN Reason: Constipation Last Admin: 06/13/22 21:01 Dose: 100 mg Documented By: KARAN Fluticasone Propionate (Fluticasone Propionate Nasal 16 Gm [place]) 1 spray NOSTRIL-B BID PRN PRN Reason: Allergy Symptoms Guaifenesin (Guaifenesin 200 Mg/10 Ml 10 Ml Liquid) 10 ml PO Q6H PRN PRN Reason: Cough Last Admin: 06/14/22 08:50 Dose: 10 ml Documented By: SIOMARA Ceftriaxone Sodium 1 gm/ (Sodium Chloride) 50 mls @ 100 mls/hr IV Q24H [facility] Last Infusion: 06/13/22 18:05 Dose: 0 mls/hr Documented By: JUMA Azithromycin 500 mg/ Sodium (Chloride) 250 mls @ 125 mls/hr IV Q24H [facility] Last Infusion: 06/13/22 20:48 Dose: 0 mls/hr Documented By: KARAN Lamotrigine (Lamotrigine 100 Mg Tablet) 100 mg PO BEDTIME [facility] Last Admin: 06/13/22 21:01 Dose: 100 mg Documented By: KARAN Lamotrigine (Lamotrigine 100 Mg Tablet) 200 mg PO DAILY [facility] Last Admin: 06/14/22 08:43 Dose: 200 mg Documented By: SIOMARA Methylprednisolone Sodium Succinate (Methylprednisolone Sod Succ 125 Mg/2 Ml Vial) 60 mg IVPUSH Q6H [facility] Last Admin: 06/14/22 10:16 Dose: 60 mg Documented By: SIOMARA Montelukast Sodium (Montelukast Sodium 10 Mg Tablet) 10 mg PO DAILY [facility] Last Admin: 06/14/22 08:42 Dose: 10 mg Documented By: SIOMARA Non-Formulary Medication (Ihshqwosikj-Tjhdzzmhe-Lruoyayr [Trelegy Ellipta]) 1 inhalation INHALE RDAILY [facility] Last Admin: 06/13/22 08:19 Dose: 1 inhalation Documented By: NATALYA Omeprazole (Omeprazole 20 Mg Capsule.Dr) 20 mg PO DAILY@0630 [facility] Last Admin: 06/14/22 06:14 Dose: 20 mg Documented By: KARAN Ondansetron HCl (Ondansetron Hcl 4 Mg/2 Ml Vial) 4 mg IVPUSH Q8H PRN PRN Reason: Nausea and Vomiting Last Admin: 06/11/22 18:35 Dose: 4 mg Documented By: CELIA Oxybutynin Chloride (Oxybutynin Chloride Er 5 Mg Tab.Er.24) 10 mg PO DAILY [facility] Last Admin: 06/14/22 08:44 Dose: 10 mg Documented By: SIOMARA Pharmacy Consult (Consult Rx Perform Med Rec) 1 each MISCELLANE ONCE PRN PRN Reason: Consult order Sodium Chloride (0.9 % Sodium Chloride Flush 3 Ml Syringe) 3 ml IVFLUSH QSHIFT [facility] Last Admin: 06/14/22 08:45 Dose: 3 ml Documented By: SIOMARA Labs 06/13/22 06:13 06/13/22 06:13 Assessment and Plan (1) Community acquired pneumonia: Status: Acute (2) Asthma exacerbation: Status: Acute (3) Paroxysmal A-fib: Status: Acute Plan 71-year-old female with a PMH significant for?mild persistent asthma, paroxysmal AFib on Eliquis, HTN, history of falls, and anemia who presents to the ED from PCP for treatment with IV antibiotics of community-acquired pneumonia that has failed outpatient therapy. Admitted for IV antibiotics 1.Community-acquired pneumonia in backdrop of mild persistent asthma... Minimal improvement thus far - ceftriaxone/azithromycin, (4) -DuoNebs p.r.n. -increase Solu-Medrol to 60mg q6h -Titrate supplemental O2 >92, wean as tolerated -Continue home inhalers 2.Paroxysmal AFib -NSR @ present -Eliquis, diltiazem 3.HTN -acceptable control on current therapies -adjust as indicated Full code Hortensia Requires ongoing hospitalization for IV antibiotics to treat community-acquired pneumonia secondary to failed outpatient therapies Time Spent With Patient Time: Total time managing care of this patient today ____ minutes. Quality Stroke Does the patient have a stroke diagnosis?: No VTE Prior VTE?: No VTE Risk Level:: Medical - moderate - high VTE Device Contraindication: Treatment Not Indicated VTE Drug Contraindication: N/A - Med Ordered
[2022-06-14] MEDS: cefTRIAXone sodium 1 GM in 0.9 % Sodium Chloride 50 ML IV (17:40)
[2022-06-14] MEDS: Azithromycin 500 MG in 0.9 % Sodium Chloride 250 ML 125 MG IV (18:42)
[2022-06-14] MEDS: lamoTRIgine 100 MG TABLET PO (21:18)
[2022-06-15] VITALS (11 sets, daily range): BP systolic 126–165; BP diastolic 53–71; PULSE 69–83; RESP 12–20; TEMP 36.3–36.6; O2SAT 91–98
[2022-06-15] MEDS: Albuterol/Iprat 2.5/0.5MG 3 ML AMPUL.NEB INHALE ×5 (02:27→19:05)
[2022-06-15] MEDS: methylPREDNISolone Sod Succ 125 MG/2 ML VIAL 60 MG IVPUSH (04:32)
[2022-06-15] MEDS: Benzonatate 100 MG CAPSULE PO ×2 (04:37→16:51)
[2022-06-15] MEDS: guaiFENesin 200 MG/10 ML 10 ML LIQUID PO ×2 (04:37→16:51)
[2022-06-15] MEDS: Omeprazole 20 MG CAPSULE.DR PO (06:38)
[2022-06-15] MEDS: oxyBUTYnin chloride ER 5 MG TAB.ER.24 10 MG PO (07:47)
[2022-06-15] MEDS: Apixaban 5 MG TABLET PO ×2 (07:47→20:29)
[2022-06-15] MEDS: Acetaminophen 325 MG TABLET 650 MG PO ×2 (07:47→22:50)
[2022-06-15] MEDS: Digoxin 0.125 MG TABLET PO (07:48)
[2022-06-15] MEDS: buPROPion HCl XL 300 MG TAB.ER.24H PO (07:48)
[2022-06-15] MEDS: dilTIAZem HCL CD 180 MG CAP.ER.24H 360 MG PO (07:48)
[2022-06-15] MEDS: Montelukast Sodium 10 MG TABLET PO (07:48)
[2022-06-15] MEDS: lamoTRIgine 100 MG TABLET 200 MG PO (07:48)
[2022-06-15] MEDS: buPROPion HCl XL 150 MG TAB.ER.24H PO (07:48)
[2022-06-15] MEDS: 0.9 % Sodium Chloride Flush 3 ML SYRINGE IVFLUSH ×3 (07:49→20:34)
[2022-06-15] MEDS: FLUTICASONE UMECLIDIN VILANTER 1 EACH INHALE (08:09)
[2022-06-15 08:56] LABS: Basophils Percent Auto 0.1 % (0-2); Hemoglobin 10.9 g/dl (12.0-16.0); Imm Gran Abs Auto 0.17 X10*3/uL (0.00-0.03); Imm Gran Pct Auto 1.5 % (0.0-0.4); Lymphocytes Absolute Auto 0.5 X10*3/uL (1.2-4.9); Lymphocytes Percent Auto 4.5 % (20-40); MANUAL DIFF FLAG SCAN; Mean Corpuscular HGB Conc 30.3 g/dl (31.0-35.0); Mean Corpuscular Hemoglobin 25.8 pg (27.0-33.0); Mean Corpuscular Volume 85.3 fL (80.0-98.0); Mean Platelet Volume 9.5 fL (9.4-12.3); Monocytes Absolute Auto 0.2 X10*3/uL (0.1-1.2); Neutrophils Absolute Auto 10.5 x10*3/uL (2.0-8.3); Neutrophils Percent Auto 91.9 % (45-73); Platelet Count 434 X10*3/uL (160-400); Red Blood Count 4.22 X10*6/uL (4.20-5.50); Red Cell Distribution Width 24.3 % (11.0-16.0); SCAN SMEAR FLAG 1; White Blood Count 11.4 X10*3/uL (4.8-10.8)
[2022-06-15 09:14] LABS: SLIDE REVIEW VERIFIED
[2022-06-15 09:20] LABS: Alanine Aminotransferase 28 U/L (0-31); Albumin Level 3.8 g/dL (3.5-5.0); Alkaline Phosphatase 82 U/L (39-117); Anion Gap 15 (12-20); Aspartate Amino Transferase 33 U/L (5-31); Bilirubin Total 0.6 mg/dL (0.0-1.0); Blood Urea Nitrogen 23 mg/dL (9-16); Calcium 9.6 mg/dL (8.4-10.2); Carbon Dioxide 23 mmol/L (22-29); Chloride 104 mmol/L (96-108); Creatinine Clr Calc Pharmacy 60.4; Estimated Glomerular Filt Rate > 60; Glucose Random 195 mg/dL (60-115); Potassium 4.2 mmol/L (3.3-5.1); Sodium 138 mmol/L (135-145); Total Protein 6.7 g/dL (6.5-8.0)
--- NOTE | 2022-06-15 11:38 | HO.PM.IMPN ---
Subjective Subjective Date of Service: 06/15/22 Interval History: Breathing slowly improving. Slowly decreasing O2 requirement Review of Systems Denies chest pain Admits shortness of breath with minimal exertion Denies nausea vomiting diarrhea Denies fever and chills Physical Exam Vital Signs: Vital Signs: Last Vital Signs Temp 97.9 F 06/15/22 03:29 Pulse 73 06/15/22 08:12 Resp 20 06/15/22 10:18 BP 145/53 H 06/15/22 07:53 Pulse Ox 93 06/15/22 10:18 O2 Del Method Nasal Cannula 06/15/22 10:18 O2 Flow Rate 3.5 06/15/22 10:18 BMI result Body Mass Index 31.1 Const: Other: Awake alert able speak in full sentences Resp: Other: Extremely diminished at bases with scattered rhonchi throughout diffuse expiratory wheezes Cardio: Other: No S4; positive S1-S2; no S3 murmurs rubs or gallops GI: Other: Soft nontender nondistended normoactive bowel sounds Extrem: Other: No edema bilaterally Objective Data Active Medications Acetaminophen (Acetaminophen 325 Mg Tablet) 650 mg PO Q6H PRN PRN Reason: Pain, Mild (Pain Scale 1-3) Last Admin: 06/15/22 07:47 Dose: 650 mg Documented By: SIOMARA Albuterol Sulfate (Albuterol Sulfate 90 Mcg 8 Gm Inhaler) 2 puff INHALE Q4H PRN PRN Reason: shortness of breath or wheezing Last Admin: 06/13/22 23:20 Dose: 2 puff Documented By: MOE Albuterol/Ipratropium (Albuterol/Iprat 2.5/0.5mg 3 Ml Ampul.Neb) 3 ml INHALE RQ4H WHILE AWAKE [facility] Last Admin: 06/15/22 08:10 Dose: 3 ml Documented By: MONY Apixaban (Apixaban 5 Mg Tablet) 5 mg PO BID [facility] Last Admin: 06/15/22 07:47 Dose: 5 mg Documented By: SIOMARA Benzonatate (Benzonatate 100 Mg Capsule) 100 mg PO TID PRN PRN Reason: Cough Last Admin: 06/15/22 04:37 Dose: 100 mg Documented By: KARAN Bupropion HCl (Bupropion Hcl Xl 300 Mg Tab.Er.24h) 300 mg PO DAILY [facility] Last Admin: 06/15/22 07:48 Dose: 300 mg Documented By: SIOMARA Bupropion HCl (Bupropion Hcl Xl 150 Mg Tab.Er.24h) 150 mg PO DAILY [facility] Last Admin: 06/15/22 07:48 Dose: 150 mg Documented By: SIOMARA Calcium Carbonate (Calcium Carbonate 750 Mg Tab.Chew) 750 mg PO Q6H PRN PRN Reason: Heartburn Last Admin: 06/12/22 05:08 Dose: 750 mg Documented By: TIFFANIE Digoxin (Digoxin 0.125 Mg Tablet) 0.125 mg PO DAILY [facility] Last Admin: 06/15/22 07:48 Dose: 0.125 mg Documented By: SIOMARA Diltiazem HCl (Diltiazem Hcl Cd 180 Mg Cap.Er.24h) 360 mg PO DAILY [facility]; Protocol Last Admin: 06/15/22 07:48 Dose: 360 mg Documented By: SIOMARA Docusate Sodium (Docusate Sodium 100 Mg Capsule) 100 mg PO DAILY PRN PRN Reason: Constipation Last Admin: 06/13/22 21:01 Dose: 100 mg Documented By: KARAN Fluticasone Propionate (Fluticasone Propionate Nasal 16 Gm [place]) 1 spray NOSTRIL-B BID PRN PRN Reason: Allergy Symptoms Guaifenesin (Guaifenesin 200 Mg/10 Ml 10 Ml Liquid) 10 ml PO Q6H PRN PRN Reason: Cough Last Admin: 06/15/22 04:37 Dose: 10 ml Documented By: KARAN Ceftriaxone Sodium 1 gm/ (Sodium Chloride) 50 mls @ 100 mls/hr IV Q24H [facility] Last Infusion: 06/14/22 18:26 Dose: 0 mls/hr Documented By: SIOMARA Azithromycin 500 mg/ Sodium (Chloride) 250 mls @ 125 mls/hr IV Q24H [facility] Last Infusion: 06/14/22 21:15 Dose: 0 mls/hr Documented By: KARAN Lamotrigine (Lamotrigine 100 Mg Tablet) 100 mg PO BEDTIME [facility] Last Admin: 06/14/22 21:18 Dose: 100 mg Documented By: KARAN Lamotrigine (Lamotrigine 100 Mg Tablet) 200 mg PO DAILY [facility] Last Admin: 06/15/22 07:48 Dose: 200 mg Documented By: SIOMARA Methylprednisolone Sodium Succinate (Methylprednisolone Sod Succ 40 Mg/Ml Vial) 60 mg IVPUSH Q6H [facility] Montelukast Sodium (Montelukast Sodium 10 Mg Tablet) 10 mg PO DAILY [facility] Last Admin: 06/15/22 07:48 Dose: 10 mg Documented By: SIOMARA Non-Formulary Medication (Nwkpfqbxhub-Xksivxhqz-Qhgjcwwg [Trelegy Ellipta]) 1 inhalation INHALE RDAILY [facility] Last Admin: 06/15/22 08:09 Dose: 1 inhalation Documented By: MONY Omeprazole (Omeprazole 20 Mg Capsule.Dr) 20 mg PO DAILY@0630 [facility] Last Admin: 06/15/22 06:38 Dose: 20 mg Documented By: KARAN Ondansetron HCl (Ondansetron Hcl 4 Mg/2 Ml Vial) 4 mg IVPUSH Q8H PRN PRN Reason: Nausea and Vomiting Last Admin: 06/11/22 18:35 Dose: 4 mg Documented By: CELIA Oxybutynin Chloride (Oxybutynin Chloride Er 5 Mg Tab.Er.24) 10 mg PO DAILY [facility] Last Admin: 06/15/22 07:47 Dose: 10 mg Documented By: SIOMARA Pharmacy Consult (Consult Rx Perform Med Rec) 1 each MISCELLANE ONCE PRN PRN Reason: Consult order Sodium Chloride (0.9 % Sodium Chloride Flush 3 Ml Syringe) 3 ml IVFLUSH QSHIFT [facility] Last Admin: 06/15/22 07:49 Dose: 3 ml Documented By: SIOMARA Labs 06/15/22 08:49 06/15/22 08:49 Labs: Laboratory Results - last 24 hr 06/15/22 06/15/22 08:49 08:49 MCV 85.3 MCH 25.8 L MCHC 30.3 L RDW 24.3 H Plt Count 434 H MPV 9.5 Immature Gran % (Auto) 1.5 H Neut % (Auto) 91.9 H Lymph % (Auto) 4.5 L Mccormick % (Auto) 2.0 Eos % (Auto) 0.0 Baso % (Auto) 0.1 Lymph # (Auto) 0.5 L M[place]ormick # (Auto) 0.2 Eos # (Auto) 0.0 Baso # (Auto) 0.0 Abs Immat Gran (auto) 0.17 H Absolute Neuts (auto) 10.5 H Absolute Nucleated RBC 0.000 Nucleated RBC % (auto) 0.0 Smear Tech's Comments VERIFIED Anion Gap 15 Estim Creat Clear Calc 60.4 Estimated GFR > 60 Random Glucose 195 H Calcium 9.6 Total Bilirubin 0.6 AST 33 H ALT 28 Alkaline Phosphatase 82 Total Protein 6.7 Albumin 3.8 Assessment and Plan (1) Community acquired pneumonia: Status: Acute (2) Asthma exacerbation: Status: Acute (3) Paroxysmal A-fib: Status: Acute Plan 71-year-old female with a PMH significant for?mild persistent asthma, paroxysmal AFib on Eliquis, HTN, history of falls, and anemia who presents to the ED from PCP for treatment with IV antibiotics of community-acquired pneumonia that has failed outpatient therapy. Admitted for IV antibiotics 1.Community-acquired pneumonia in backdrop of mild persistent asthma... Minimal improvement thus far - ceftriaxone/azithromycin, (5) -DuoNebs p.r.n. -increase Solu-Medrol to 60mg q6h -Titrate supplemental O2 >92, wean as tolerated -Continue home inhalers 2.Paroxysmal AFib -NSR @ present -Eliquis, diltiazem 3.HTN -acceptable control on current therapies -adjust as indicated Full code Eliquis Requires ongoing hospitalization for IV antibiotics to treat community-acquired pneumonia secondary to failed outpatient therapies Time Spent With Patient Time: Total time managing care of this patient today ____ minutes. Quality Stroke Does the patient have a stroke diagnosis?: No VTE Prior VTE?: No VTE Risk Level:: Medical - moderate - high VTE Device Contraindication: Treatment Not Indicated VTE Drug Contraindication: N/A - Med Ordered
[2022-06-15] MEDS: methylPREDNISolone Sod Succ 40 MG/ML VIAL 60 MG IVPUSH ×3 (11:59→22:51)
[2022-06-15] MEDS: ondansetron HCL 4 MG/2 ML VIAL IVPUSH (13:23)
[2022-06-15] MEDS: Milk of Magnesia 30 ML ORAL.SUSP PO (14:28)
[2022-06-15] MEDS: cefTRIAXone sodium 1 GM in 0.9 % Sodium Chloride 50 ML IV (17:27)
[2022-06-15] MEDS: Azithromycin 500 MG in 0.9 % Sodium Chloride 250 ML 125 MG IV (18:09)
[2022-06-15] MEDS: lamoTRIgine 100 MG TABLET PO (20:28)
[2022-06-15] MEDS: Albuterol Sulfate 90 MCG 8 GM INHALER 2 PUFF INHALE (23:50)
[2022-06-16 03:11] VITALS: BP 133/50; PULSE 75; RESP 18; TEMP 36.3; O2SAT 93
[2022-06-16] MEDS: methylPREDNISolone Sod Succ 40 MG/ML VIAL 60 MG IVPUSH ×2 (06:04→11:37)
[2022-06-16] MEDS: Omeprazole 20 MG CAPSULE.DR PO (06:05)
[2022-06-16 07:48] VITALS: BP 150/70; PULSE 61; RESP 18; TEMP 36.7; O2SAT 94
[2022-06-16 08:00] VITALS: PULSE 61; RESP 18
[2022-06-16] MEDS: Albuterol/Iprat 2.5/0.5MG 3 ML AMPUL.NEB INHALE ×2 (08:00→12:05)
[2022-06-16] MEDS: Montelukast Sodium 10 MG TABLET PO (08:46)
[2022-06-16] MEDS: Digoxin 0.125 MG TABLET PO (08:46)
[2022-06-16] MEDS: oxyBUTYnin chloride ER 5 MG TAB.ER.24 10 MG PO (08:47)
[2022-06-16] MEDS: lamoTRIgine 100 MG TABLET 200 MG PO (08:47)
[2022-06-16] MEDS: Apixaban 5 MG TABLET PO (08:47)
[2022-06-16] MEDS: buPROPion HCl XL 300 MG TAB.ER.24H PO (08:48)
[2022-06-16] MEDS: buPROPion HCl XL 150 MG TAB.ER.24H PO (08:48)
[2022-06-16] MEDS: dilTIAZem HCL CD 180 MG CAP.ER.24H 360 MG PO (08:48)
[2022-06-16] MEDS: 0.9 % Sodium Chloride Flush 3 ML SYRINGE IVFLUSH (09:34)
[2022-06-16] MEDS: FLUTICASONE UMECLIDIN VILANTER 1 EACH INHALE (09:49)
[2022-06-16 12:02] VITALS: PULSE 82; PULSE 91; O2SAT 89; O2SAT 92; O2SAT 93
[2022-06-16 12:05] VITALS: PULSE 91; RESP 15; O2SAT 93
--- NOTE | 2022-06-16 13:14 | P.DS_ITS ---
DS: Providers Provider Date of Service: 06/16/22 Date of admission: 06/10/22 21:54 Date of discharge: 06/16/22 Primary care physician: Eddie Messina MD DS: Diagnosis Discharge Diagnosis (1) Community acquired pneumonia: Status: Acute (2) Asthma exacerbation: Status: Acute (3) Paroxysmal A-fib: Status: Acute DS: Summary Hospital Course Hospital Course: 71-year-old female with a PMH significant for?mild persistent asthma, paroxysmal AFib on Eliquis, HTN, history of falls, and anemia who presents to the ED from PCP for treatment with IV antibiotics of community-acquired pneumonia that has failed outpatient therapy.? Patient has had a long history of respiratory issues and complains of long COVID symptoms for the past 15 months.? Patient was recently admitted to the hospital on 05/27/2022 through 05/30/2022 for treatment of shortness of breath was found to have profound anemia with hemoglobin of 6 that required transfusion of 2 units of packed red blood cells.? Patient was discharged and felt better until about a week ago when shortness of breath and cough returned.? Patient saw her PCP who took an x-ray which showed pneumonia. Was prescribed Augmentin x10 days, which she took for 1 week without any relief to her symptoms, and was sent by her PCP to the hospital for treatment with IV antibiotics.? Patient states she has had a mostly nonproductive cough, felt fatigued, had inspiratory chest tightness, wheezing, and shortness of breath that is worse with talking and exertion.? Patient denies chest pain/pressure, palpitations.? No fever, chills, nausea, vomiting, diarrhea, abdominal pain.? Patient is not on supplemental O2 at home.?n the ED patient was afebrile but slightly hypertensive at 167/68, satting at 90% O2 on RA, improved to 96% on 4 L NC. Labs were significant for stable H&H of 10.5/35.2, platelets of 482, BNP slightly elevated at 218. CXR showed probable small infiltrate of right posterior medial base and probable trace left effusion. EKG demonstrated normal sinus rhythm without evidence of ST elevations or depressions. Pt was treated with azithromycin, ceftriaxone, DuoNeb, Mag sulfate, and Solu-Medrol. Hospital Course Admitted to general medical floor and started on ceftriaxone and azithromycin. She also was started on pulse dose steroids and was slow to respond to therapies. Physical exam improved over they admission but patient still had an O2 requirement upon discharge. At this point in time she qualifies for home O2 and is medically acceptable to be discharged home to complete a course of oral Ceftin. Time Spent with Patient Time attestation: Total time managing care of this patient today ____ minutes. Discharge coordination time: Greater than 30 minutes Quality: Safe Use of Opioids Does Pt have an Active Cancer Diagnosis on the Problem List?: No Quality: Stroke Does the patient have a stroke diagnosis?: No Physical Exam Vital Signs: Vital Signs: Last Vital Signs Temp 98.1 F 06/16/22 07:48 Pulse 91 06/16/22 12:05 Resp 15 06/16/22 12:05 BP 150/70 H 06/16/22 07:48 Pulse Ox 94 06/16/22 07:48 O2 Del Method Nasal Cannula 06/16/22 07:48 O2 Flow Rate 3.0 06/16/22 07:48 BMI result Body Mass Index 31.1 Const: Other: Awake alert able speak in full sentences Resp: Other: Improved air entry at bases; scant rhonchi right base with scant expiratory wheezes Cardio: Other: No S4; positive S1-S2; no S3 murmurs rubs or gallops GI: Other: Soft nontender nondistended normoactive bowel sounds Extrem: Other: No edema bilaterally DS: Data Data Completed and Pending Completed studies during hospitalization [Text1]: Procedures Drainage of Left Pleural Cavity with Drainage Device, Percutaneous Approach (08/24/21) Insertion of Infusion Device into Superior Vena Cava, Percutaneous Approach (08/24/21) Introduction of Other Therapeutic Substance into Pleural Cavity, Percutaneous Approach (08/24/21) Introduction of Remdesivir Anti-infective into Peripheral Vein, Percutaneous Ap proach, [employer] (08/24/21) Discharge Plan Discharge Anticipated Discharge Date/Time: 06/16/22 13:06 Patient Disposition: Home Health Service Discharge Diagnosis: Community-acquired pneumonia Referrals: Eddie Messina MD [Primary Care Provider] - 1 Week Discharge Medications: New cefuroxime axetil 500 mg tablet 500 mg PO BID 7 Days Qty: 14 0RF prednisone 10 mg tablet See Rx Instructions .Route .COMPLEX Qty: 45 0RF Rx Instructions: 10 mg orally; 5 tabs p.o. daily x3 days; 4 tabs p.o. daily x3 days; 3 tabs daily x3 days; 2 tabs daily x3 days; 1 tab daily x3 days Continued Trelegy Ellipta 200-62.5-25 mcg blister with device 1 inh inhalation DAILY 30 Days Qty: 1 6RF albuterol sulfate [ProAir HFA] 90 mcg/actuation HFA aerosol inhaler 2 puff inhalation Q4-6H PRN (Reason: shortness of breath or wheezing) Qty: 8.5 6RF digoxin 125 mcg (0.125 mg) Tablet 0.125 mg PO DAILY Qty: 30 0RF Eliquis 5 mg Tablet 5 mg PO BID Qty: 60 0RF fluticasone propionate 50 mcg/actuation spray,suspension 1 spray intranasal BID PRN (Reason: Allergy Symptoms) diltiazem HCl 360 mg capsule,extended release 24hr 360 mg PO DAILY lamotrigine 100 mg tablet 100 mg PO BEDTIME pantoprazole 40 mg tablet,delayed release (DR/EC) 40 mg PO DAILY bupropion HCl [Wellbutrin SR] 200 mg tablet sustained-release 12 hr 200 mg PO BID@0900,1300 montelukast 10 mg tablet 10 mg PO DAILY lamotrigine 200 mg tablet 200 mg PO DAILY oxybutynin chloride 10 mg tablet extended release 24hr 10 mg PO DAILY Discontinued amoxicillin-pot clavulanate 875-125 mg tablet 1 tab PO Q12H Discharge Orders: Discharge Order (Routine); Ordered 06/16/22 Ordered By: Kunal Bacon Diet: Advance to usual diet Activity on Discharge: As tolerated Stand Alone Forms: Patient Portal Discharge page Care Plan Goals: New meds include Ceftin 500 twice daily for 7 days and prednisone taper Health Concerns: Resume all other medications as taken prior to hospital Plan of Treatment: Follow-up with PCP 2 weeks Assessment: See discharge summary
--- NOTE | 2022-06-16 13:55 | MHC.CM.PN ---
PATIENT IS DC HOME WITH RESUMPTION OF HER [facility] SERVICES. IMM 06/15 IN CHART SPOUSE TO TRANSPORT
== END 2022-06-16 14:47 | disposition home health service (06) | DRG 194 ==
LOC: HO.ED 20:15 → HO.EDOVER 22:07 → HO.S3 06-11 13:53
PROVIDERS: Physician Assistant; Admitting Provider Student in an Organized Health Care Education/Training Program; Emergency Provider Emergency Medicine; PCP Internal Medicine; Visit Provider Hospitalist
DX: J18.9 Pneumonia, unspecified organism (principal); J45.31 Mild persistent asthma with (acute) exacerbation; G47.33 Obstructive sleep apnea (adult) (pediatric); I48.0 Paroxysmal atrial fibrillation; I10 Essential (primary) hypertension; D64.9 Anemia, unspecified; Z20.822 Contact with and (suspected) exposure to COVID-19; Z98.84 Bariatric surgery status; Z87.891 Personal history of nicotine dependence; Z79.01 Long term (current) use of anticoagulants; Z79.51 Long term (current) use of inhaled steroids; Z79.899 Other long term (current) drug therapy
CPT/HCPCS: 0241U; 36415; 71046; 80048; 80053; 80076; 80162; 81001; 81003; 83605; 83735; 83880; 85025; 87040; 93005; 94640; 99285; J0456; J0696; J2405; J2920; J2930; J3475

== ENCOUNTER → 2022-07-09 13:44 | Outpatient (BNVA) | payer MEDICARE, SELFPAY | PROVIDERS: PCP Internal Medicine; Visit Provider Nurse Practitioner Family ==

== ENCOUNTER 2022-07-09 14:21 | Outpatient (REF) | payer MEDICARE, SELFPAY ==
[2022-07-09 15:38] LABS: B Type Natriuretic Peptide 256 pg/mL (<100)
== END 2022-07-09 14:22 | disposition home or self-care (01) ==
LOC: HO.LAB 14:21
PROVIDERS: PCP Internal Medicine; Visit Provider Nurse Practitioner Family
DX: R06.01 Orthopnea (principal); R06.09 Other forms of dyspnea; R60.0 Localized edema
CPT/HCPCS: 36415; 83880; 99212

== ENCOUNTER 2022-07-12 18:53 | Observation (INO) | payer MEDICARE, SELFPAY ==
--- NOTE | ~2022-07-12 | XR_ITS ---
EXAMINATION: XR CHEST CLINICAL INFORMATION: Chest pain. COMPARISON: Multiple priors with last chest x-ray of 06/10/2022, selected images of the chest CT of 03/18/2022 TECHNIQUE: 2 views of the chest were obtained. FINDINGS: Cardiomediastinal silhouette is stable with mild cardiomegaly. No abnormal tracheal deviation. The lungs are adequately symmetrically expanded. There is no evidence of pleural effusions, pulmonary edema or pneumothorax. Retrocardiac left lower lobe airspace opacity is again noted with somewhat improved aeration in the region compared to previous x-ray of 06/10/2022. Multiple surgical clips in the left upper abdominal quadrant are redemonstrated. No acute osseous abnormality. Osteoarthritic changes at the bilateral shoulders. XR/XR chest 2V IMPRESSION: Mild interval improvement in the suspected left lower lobe retrocardiac opacification. No definite new airspace opacities are seen.
[2022-07-12 18:55] VITALS: BP 135/95; PULSE 142; RESP 18; TEMP 36.8; O2SAT 98; BMI 26.4
--- NOTE | 2022-07-12 18:55 | ECG_ITS ---
Test Reason : CHEST PAIN Blood Pressure : / mmHG Vent. Rate : 106 BPM Atrial Rate : 000 BPM P-R Int : 000 ms QRS Dur : 108 ms QT Int : 328 ms P-R-T Axes : 000 -54 120 degrees QTc Int : 435 ms Atrial fibrillation with rapid ventricular response Left anterior fascicular block Left ventricular hypertrophy with repolarization abnormality ( R in aVL , [employer] product ) Cannot rule out Septal infarct , age undetermined Abnormal ECG When compared with ECG of 10-JUN-2022 16:35, Atrial fibrillation has replaced Sinus rhythm Vent. rate has increased BY [address] now depressed in Lateral leads Referred By: Nicole Bunn Electronically Signed By:MISTY HAMILTON MD
--- NOTE | 2022-07-12 18:55 | ED.GENADULT ---
HPI - General Adult General Chief complaint: Chest Pain Stated complaint: chest pain Time Seen by Provider: 07/12/22 20:59 Source: patient Mode of arrival: ambulatory Limitations: no limitations History of Present Illness HPI narrative: 71-year-old female with history of Takotsubo's cardiomyopathy, paroxysmal atrial fibrillation presents with chest pain. The chest pain was substernal left-sided. It was described as a pressure/tightness. Is [id number]. The pressure radiated to her jaw. Was not associated with nausea, vomiting or shortness of breath. Patient took her heart rate on a pulse oximeter noted to be as high as 130. Patient is on blood thinning medications/Eliquis. Patient was recently told to stop taking diltiazem for swelling in the lower extremities. Her swelling has in fact gotten better. It was not replaced with another rate related medication. Patient reports having had a cardiac catheterization about 10-15 years ago and was told her coronary arteries were clean at that time. Patient is currently asymptomatic. Related Data Home Medications Medication Instructions Recorded Confirmed pantoprazole 40 mg tablet,delayed 40 mg PO DAILY 01/10/20 07/09/22 release bupropion HCl 200 mg tablet,12 hr 200 mg PO BID@0900,1300 01/11/20 07/09/22 sustained-release (Wellbutrin SR) lamotrigine 200 mg tablet 200 mg PO DAILY 12/05/20 07/09/22 montelukast 10 mg tablet 10 mg PO DAILY 12/05/20 07/09/22 oxybutynin chloride 10 mg 10 mg PO DAILY 12/05/20 07/09/22 tablet,extended release 24 hr diltiazem HCl 360 mg 360 mg PO DAILY 05/28/22 07/09/22 capsule,extended release 24 hr lamotrigine 100 mg tablet 100 mg PO BEDTIME 05/28/22 07/09/22 fluticasone propionate 50 1 spray intranasal BID PRN Allergy 06/10/22 06/10/22 mcg/actuation nasal Symptoms spray,suspension Previous Rx's Medication Instructions Recorded digoxin 125 mcg (0.125 mg) tablet 0.125 mg PO DAILY #30 tabs 09/11/21 apixaban 5 mg tablet (Eliquis) 5 mg PO BID #60 tabs 09/12/21 fluticasone fur. 200 mcg-umeclid 1 inh inhalation DAILY 30 days #1 04/23/22 62.5 mcg-vilant 25 mcg ea inhalat.powder (Trelegy Ellipta) albuterol sulfate 90 mcg/actuation 2 puff inhalation Q4-6H PRN 05/05/22 aerosol inhaler (ProAir HFA) shortness of breath or wheezing #8.5 grams cefuroxime axetil 500 mg tablet 500 mg PO BID 7 days #14 tabs 06/16/22 prednisone 10 mg tablet See Rx Instructions .Route 06/16/22 .COMPLEX #45 tabs furosemide 40 mg tablet (Lasix) 40 mg PO QAM #14 tabs 07/09/22 Allergies Allergy/AdvReac Type Severity Reaction Status Date / Time No Known Allergies Allergy Verified 07/12/22 18:54 [No Known Allergies*] Review of Systems Review of Systems: CONSTITUTIONAL: Denies weight loss, fever and chills. HEENT: Denies changes in vision and hearing. RESPIRATORY: Denies SOB and cough. CV: + palpitations + CP. GI: Denies abdominal pain, nausea, vomiting and diarrhea. : Denies dysuria and urinary frequency. MSK: Denies myalgia and joint pain. SKIN: Denies rash and pruritus. NEUROLOGICAL: Denies headache and syncope. PSYCHIATRIC: Denies recent changes in mood. Denies anxiety and depression. All other ROS are negative unless in HPI PMFSH Past Medical History Medical History Anemia Asthma Atrial fibrillation, new onset Hypertension Hypertension Loculated pleural effusion MSSA bacteremia MILY (obstructive sleep apnea) Paroxysmal A-fib SOB (shortness of breath) UTI (urinary tract infection) Surgical History History of bunionectomy History of total left hip arthroplasty History of total replacement of right hip History of total right hip arthroplasty Left inguinal hernia S/P laparoscopic sleeve gastrectomy Social History Social History Household Members: Spouse Household Members Other:: Danny Housing: House Do you presently have visiting nurse or other home services: No Alcohol intake: never Patient Tobacco Use Status: Former Tobacco user Quit Date: 1987 Tobacco use type: Cigarette Years Smoked: 16 years Smoked in Last 30 Days: No Second Hand Smoke Exposure: No Use of substances other than those prescribed or required for medical reasons: No Advance Directives: No Advance Directives Information Provided: No service: No 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al status: retired 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: Right Handed Physical Exam ED Vital Signs: Vital Signs - 24 hr 07/12/22 18:55 07/12/22 20:00 Temperature 98.2 F Pulse Rate 142 H Pulse Rate [Monitor] 109 H Respiratory Rate 18 Blood Pressure 135/95 H Pulse Oximetry 98 Oxygen Delivery Method Room Air BMI result Body Mass Index 26.4 GEN: Well developed, no acute distress, alert, oriented HEENT: Normocephalic, atraumatic, normal external ears, nose appears normal, no oropharyngeal edema or exudates Eyes: Normal to appearance Neck: Supple, no lymphadenopathy Respiratory: Talks in complete sentences, no respiratory distress, clear to auscultation bilaterally Cardiovascular: Tachycardic and irregularly irregular Abdomen: Soft, nontender, nondistended, no guarding, no rebound Back: No CVA tenderness Extremities: No clubbing cyanosis or edema Neurologic: No focal neurologic deficits, cranial nerves 2-12 intact, strength is 5/5 bilaterally Skin: No rash Course Course Course Narrative: RME performed by Nicole Bunn PA-C. Patient is a 71 year old assigned female at presenting to the emergency department with chest pain. Labs, imaging, and swab ordered. Patient placed back in the waiting room pending room availability and results. Reevaluation(s) Reevaluation #1: Patient remains in atrial fibrillation. Heart rate is approximately 100-10. She is asymptomatic. Her initial set of cardiac enzymes is negative. Repeating a set at this time. Patient likely needs rate related medication. She has been taken off diltiazem. Wondering if we should restart that or switch to a beta-jens. Attempting to get a hold of her air conditioning insulation installer, Dr. Avila of [facility]. Time: 21:18 Reevaluation #2: Spoke with the finish machine tender at [facility]. He will attempt to get a hold of the cardiology attending to reach back out to me with a decision on how best to manage their patient. Time: 21:30 Reevaluation #3: Spoke with Dr. Bonilla, covering for Dr. Avila her primary air conditioning insulation installer. She recommended intravenous diltiazem, hospitalization given EKG changes. However, she does not believe this represents a primary coronary lesion and more likely to be rate related. This was discussed with the patient. She is amenable to hospitalization. I have ordered an IV dose of diltiazem. I have also ordered omeprazole and calcium carbonate for her heartburn. Time: 22:23 Medical Decision Making Medical Decision Making [facility] Narrative: 71-year-old female with history of atrial fibrillation presents with chest pain. Chest pain started at approximately 6:30 a.m. this evening. It occurred at rest. Currently asymptomatic. She is in atrial fibrillation with rapid ventricular response. She had recently been taken off of her related medication. I suspect her chest pain is in fact cardiac in nature. She does have history of reflux. However, her heart rate was approximately 131 her symptoms started. She does have ST depressions in lateral precordial leads. Her last cardiac catheterization was approximately 10-15 years ago. Other differential diagnosis could be atypical chest pain, palpitations, cardiac dysrhythmia, GERD, esophageal spasm, pulmonary disease, doubt dissection or aneurysmal changes. Doubt pericarditis. Will check laboratory analysis including cardiac enzyme. Will place patient on a foreclosure specialist. Patient is currently on blood thinning medications which she took today. Differential Diagnosis Differential Diagnoses: The differential diagnosis associated with the presentation includes (See above) Admission/Observation Consideration of admission/observation: Escalation of care including admission/observation considered Consult Healthcare Provider Management of the patient was discussed with: [employer] (Cardiology) Lab Data [facility] Lab Attestation statement: I reviewed the patient's lab results. 07/12/22 19:30 07/12/22 19:30 Labs: Lab Results 07/12/22 07/12/22 07/12/22 Range/Units 19:30 19:30 19:30 WBC 6.6 (4.8-10.8) X10*3/uL RBC 4.77 (4.20-5.50) X10*6/uL Hgb 12.2 (12.0-16.0) g/dl Hct 40.6 (37.0-47.0) % MCV 85.1 (80.0-98.0) fL MCH 25.6 L (27.0-33.0) pg MCHC 30.0 L (31.0-35.0) g/dl RDW 21.2 H (11.0-16.0) % Plt Count 390 (160-400) X10*3/uL MPV 9.5 (9.4-12.3) fL Immature Gran % (Auto) 0.2 (0.0-0.4) % Neut % (Auto) 59.0 (45-73) % Lymph % (Auto) 28.5 (20-40) % [place] % (Auto) 9.7 (2-11) % Eos % (Auto) 1.5 (0-4) % Baso % (Auto) 1.1 (0-2) % Lymph # (Auto) 1.9 (1.2-4.9) X10*3/uL [place] # (Auto) 0.6 (0.1-1.2) X10*3/uL Eos # (Auto) 0.1 (0.0-0.4) X10*3/uL Baso # (Auto) 0.1 (0.0-0.2) X10*3/uL Abs Immat Gran (auto) 0.01 (0.00-0.03) X10*3/uL Absolute Neuts (auto) 3.9 (2.0-8.3) x10*3/uL Absolute Nucleated RBC 0.000 (0.0-0.012) X10*3/uL Nucleated RBC % (auto) 0.0 (0.0-0.2) /100WBC PT 12.1 (10.0-13.1) SEC INR 1.1 (0.9-1.1) APTT 37.8 H (26.0-36.4) SEC Sodium 149 H (135-145) mmol/L Potassium 3.8 (3.3-5.1) mmol/L Chloride 109 H (96-108) mmol/L Carbon Dioxide 32 H (22-29) mmol/L Anion Gap 12 (12-20) BUN 21 H (9-16) mg/dL Creatinine 0.92 (0.5-1.4) mg/dL Estim Creat Clear Calc 49.7 Estimated GFR > 60 Random Glucose 134 H (60-115) mg/dL Calcium 9.6 (8.4-10.2) mg/dL Magnesium 2.3 (1.6-2.6) mg/dL Total Bilirubin 0.3 (0.0-1.0) mg/dL AST 21 (5-31) U/L ALT 22 (0-31) U/L Alkaline Phosphatase 114 (39-117) U/L Troponin I High Sens (<3.5-17.0) ng/L B-Natriuretic Peptide (<100) pg/mL Total Protein 7.3 (6.5-8.0) g/dL Albumin 4.2 (3.5-5.0) g/dL COVID-19 ([facility]VARO) (Negative) COVID-19 Clin Com 07/12/22 07/12/22 07/12/22 Range/Units 19:30 19:30 19:30 WBC (4.8-10.8) X10*3/uL RBC (4.20-5.50) X10*6/uL Hgb (12.0-16.0) g/dl Hct (37.0-47.0) % MCV (80.0-98.0) fL MCH (27.0-33.0) pg MCHC (31.0-35.0) g/dl RDW (11.0-16.0) % Plt Count (160-400) X10*3/uL MPV (9.4-12.3) fL Immature Gran % (Auto) (0.0-0.4) % Neut % (Auto) (45-73) % Lymph % (Auto) (20-40) % [place] % (Auto) (2-11) % Eos % (Auto) (0-4) % Baso % (Auto) (0-2) % Lymph # (Auto) (1.2-4.9) X10*3/uL [place] # (Auto) (0.1-1.2) X10*3/uL Eos # (Auto) (0.0-0.4) X10*3/uL Baso # (Auto) (0.0-0.2) X10*3/uL Abs Immat Gran (auto) (0.00-0.03) X10*3/uL Absolute Neuts (auto) (2.0-8.3) x10*3/uL Absolute Nucleated RBC (0.0-0.012) X10*3/uL Nucleated RBC % (auto) (0.0-0.2) /100WBC PT (10.0-13.1) SEC INR (0.9-1.1) APTT (26.0-36.4) SEC Sodium (135-145) mmol/L Potassium (3.3-5.1) mmol/L Chloride (96-108) mmol/L Carbon Dioxide (22-29) mmol/L Anion Gap (12-20) BUN (9-16) mg/dL Creatinine (0.5-1.4) mg/dL Estim Creat Clear Calc Estimated GFR Random Glucose (60-115) mg/dL Calcium (8.4-10.2) mg/dL Magnesium (1.6-2.6) mg/dL Total Bilirubin (0.0-1.0) mg/dL AST (5-31) U/L ALT (0-31) U/L Alkaline Phosphatase (39-117) U/L Troponin I High Sens 8.0 (<3.5-17.0) ng/L B-Natriuretic Peptide 231 H (<100) pg/mL Total Protein (6.5-8.0) g/dL Albumin (3.5-5.0) g/dL COVID-19 ([facility]VARO) Negative (Negative) COVID-19 Clin Com See Note 07/12/22 Range/Units 21:44 WBC (4.8-10.8) X10*3/uL RBC (4.20-5.50) X10*6/uL Hgb (12.0-16.0) g/dl Hct (37.0-47.0) % MCV (80.0-98.0) fL MCH (27.0-33.0) pg MCHC (31.0-35.0) g/dl RDW (11.0-16.0) % Plt Count (160-400) X10*3/uL MPV (9.4-12.3) fL Immature Gran % (Auto) (0.0-0.4) % Neut % (Auto) (45-73) % Lymph % (Auto) (20-40) % [place] % (Auto) (2-11) % Eos % (Auto) (0-4) % Baso % (Auto) (0-2) % Lymph # (Auto) (1.2-4.9) X10*3/uL [place] # (Auto) (0.1-1.2) X10*3/uL Eos # (Auto) (0.0-0.4) X10*3/uL Baso # (Auto) (0.0-0.2) X10*3/uL Abs Immat Gran (auto) (0.00-0.03) X10*3/uL Absolute Neuts (auto) (2.0-8.3) x10*3/uL Absolute Nucleated RBC (0.0-0.012) X10*3/uL Nucleated RBC % (auto) (0.0-0.2) /100WBC PT (10.0-13.1) SEC INR (0.9-1.1) APTT (26.0-36.4) SEC Sodium (135-145) mmol/L Potassium (3.3-5.1) mmol/L Chloride (96-108) mmol/L Carbon Dioxide (22-29) mmol/L Anion Gap (12-20) BUN (9-16) mg/dL Creatinine (0.5-1.4) mg/dL Estim Creat Clear Calc Estimated GFR Random Glucose (60-115) mg/dL Calcium (8.4-10.2) mg/dL Magnesium (1.6-2.6) mg/dL Total Bilirubin (0.0-1.0) mg/dL AST (5-31) U/L ALT (0-31) U/L Alkaline Phosphatase (39-117) U/L Troponin I High Sens 7.2 (<3.5-17.0) ng/L B-Natriuretic Peptide (<100) pg/mL Total Protein (6.5-8.0) g/dL Albumin (3.5-5.0) g/dL COVID-19 ([facility]VARO) (Negative) COVID-19 Clin Com Independent Interpretation I performed an independent interpretation of an: EKG (Atrial fibrillation with rapid ventricular response, left axis deviation, LVH, lateral lead ST depressions, widening QRS compared to previous EKG possibly consistent with an intraventricular conduction delay) and Plain X-Ray (No acute cardiopulmonary disease) Independent Historian Clinical information obtained from an independent historian. History obtained from or confirmed by: Spouse External Record Review External record reviewed: Inpatient record, Prior outpatient labs and Other (Prior EKG) Prescription Management I considered prescription management with: Other (Beta-jens calcium channel jens) Chronic Conditions Patient?s care impacted by: Other (Atrial fibrillation) Critical Care Time Critical Care Time Critical Care Time: Yes Total Critical Care Time: 35 Attestation: Critical care time the amount of approximately 35 minutes spent with patient evaluation, re-evaluation, treatment, management, interpretation and medical data, consultation with Cardiology outside of medical procedures. Discharge Plan Discharge Clinical Impression: Chest pain, Atrial fibrillation with RVR Patient Disposition: Admitted As Inpatient Prescriptions: No Action Trelegy Ellipta 200-62.5-25 mcg blister with device 1 inh inhalation DAILY 30 Days Qty: 1 6RF albuterol sulfate [ProAir HFA] 90 mcg/actuation HFA aerosol inhaler 2 puff inhalation Q4-6H PRN (Reason: shortness of breath or wheezing) Qty: 8.5 6RF digoxin 125 mcg (0.125 mg) Tablet 0.125 mg PO DAILY Qty: 30 0RF Eliquis 5 mg Tablet 5 mg PO BID Qty: 60 0RF fluticasone propionate 50 mcg/actuation spray,suspension 1 spray intranasal BID PRN (Reason: Allergy Symptoms) cefuroxime axetil 500 mg tablet 500 mg PO BID 7 Days Qty: 14 0RF prednisone 10 mg tablet See Rx Instructions .Route .COMPLEX Qty: 45 0RF Rx Instructions: 10 mg orally; 5 tabs p.o. daily x3 days; 4 tabs p.o. daily x3 days; 3 tabs daily x3 days; 2 tabs daily x3 days; 1 tab daily x3 days diltiazem HCl 360 mg capsule,extended release 24hr 360 mg PO DAILY lamotrigine 100 mg tablet 100 mg PO BEDTIME pantoprazole 40 mg tablet,delayed release (DR/EC) 40 mg PO DAILY bupropion HCl [Wellbutrin SR] 200 mg tablet sustained-release 12 hr 200 mg PO BID@0900,1300 montelukast 10 mg tablet 10 mg PO DAILY lamotrigine 200 mg tablet 200 mg PO DAILY oxybutynin chloride 10 mg tablet extended release 24hr 10 mg PO DAILY furosemide [Lasix] 40 mg tablet 40 mg PO QAM Qty: 14 0RF
[2022-07-12 19:37] LABS: MANUAL DIFF FLAG NO
[2022-07-12 19:42] LABS: Basophils Absolute Auto 0.1 X10*3/uL (0.0-0.2); Basophils Percent Auto 1.1 % (0-2); Eosinophils Absolute Auto 0.1 X10*3/uL (0.0-0.4); Eosinophils Percent Auto 1.5 % (0-4); Hematocrit 40.6 % (37.0-47.0); Hemoglobin 12.2 g/dl (12.0-16.0); Imm Gran Abs Auto 0.01 X10*3/uL (0.00-0.03); Imm Gran Pct Auto 0.2 % (0.0-0.4); Lymphocytes Absolute Auto 1.9 X10*3/uL (1.2-4.9); Lymphocytes Percent Auto 28.5 % (20-40); Mean Corpuscular Hemoglobin 25.6 pg (27.0-33.0); Mean Corpuscular Volume 85.1 fL (80.0-98.0); Mean Platelet Volume 9.5 fL (9.4-12.3); Monocytes Absolute Auto 0.6 X10*3/uL (0.1-1.2); Monocytes Percent Auto 9.7 % (2-11); Neutrophils Absolute Auto 3.9 x10*3/uL (2.0-8.3); Platelet Count 390 X10*3/uL (160-400); Red Blood Count 4.77 X10*6/uL (4.20-5.50); Red Cell Distribution Width 21.2 % (11.0-16.0); White Blood Count 6.6 X10*3/uL (4.8-10.8)
[2022-07-12 19:48] LABS: INTERNATIONAL NORM RATIO 1.1 (0.9-1.1); Prothrombin Time 12.1 SEC (10.0-13.1)
[2022-07-12 19:51] LABS: Partial Thromboplastin Time 37.8 SEC (26.0-36.4)
[2022-07-12 19:54] LABS: Alanine Aminotransferase 22 U/L (0-31); Albumin Level 4.2 g/dL (3.5-5.0); Alkaline Phosphatase 114 U/L (39-117); Anion Gap 12 (12-20); Aspartate Amino Transferase 21 U/L (5-31); Bilirubin Total 0.3 mg/dL (0.0-1.0); Blood Urea Nitrogen 21 mg/dL (9-16); Calcium 9.6 mg/dL (8.4-10.2); Carbon Dioxide 32 mmol/L (22-29); Chloride 109 mmol/L (96-108); Creatinine Clr Calc Pharmacy 49.7; Estimated Glomerular Filt Rate > 60; Glucose Random 134 mg/dL (60-115); Magnesium 2.3 mg/dL (1.6-2.6); Potassium 3.8 mmol/L (3.3-5.1); Sodium 149 mmol/L (135-145); Total Protein 7.3 g/dL (6.5-8.0)
[2022-07-12 20:00] VITALS: PULSE 109
[2022-07-12 20:04] LABS: COVID-19 Test Negative (Negative); IDNOW Serial# 08D9AD1C
[2022-07-12 20:26] LABS: B Type Natriuretic Peptide 231 pg/mL (<100)
--- NOTE | 2022-07-12 20:44 | PC.NURSE ---
Pt A&Ox4, reports epigastric pain radiating to neck/jaw, states it is now resolved. States it started at 1815 this evening and feeling sharp pressure with no relief of tums taken at home. Pt placed on bedside monitor, noted A-fib with rate in the 110's. EKG obtained and reviewed by ED provider, IV line established, blood work collected and sent to lab.
--- NOTE | 2022-07-12 21:55 | PC.NURSE ---
Pt reports 10/10 pain to epigastic area. Provider Dr. Rock notified, new EKG ordered. Pt given PO fluids and gram crackers.
--- NOTE | 2022-07-12 21:58 | ECG_ITS ---
Test Reason : REPEAT Blood Pressure : / mmHG Vent. Rate : 094 BPM Atrial Rate : 000 BPM P-R Int : 000 ms QRS Dur : 110 ms QT Int : 342 ms P-R-T Axes : 000 -50 123 degrees QTc Int : 427 ms Atrial fibrillation Left anterior fascicular block Left ventricular hypertrophy with repolarization abnormality ( R in aVL , Homar product ) Abnormal ECG When compared with ECG of 12-JUL-2022 19:11, No significant change was found Referred By: Negrito Rock Electronically Signed By:MISTY HAMILTON MD
[2022-07-12 22:13] LABS: Troponin-I High Sensitivity 7.2 ng/L (<3.5-17.0)
[2022-07-12 22:44] VITALS: PULSE 109
[2022-07-12] MEDS: Omeprazole 40 MG CAPSULE.DR PO (22:47)
[2022-07-12] MEDS: Calcium Carbonate 750 MG TAB.CHEW PO (22:48)
[2022-07-12] MEDS: dilTIAZem HCL 50 MG/10 ML VIAL 10 MG IVPUSH (22:49)
[2022-07-12 22:58] VITALS: BP 128/62; PULSE 78; RESP 16; TEMP 36.9; O2SAT 96
--- NOTE | 2022-07-12 23:12 | P.HPHOSP_ITS ---
History of Present Illness Date of Service: 07/12/22 Chief Complaint: chest pain 71-year-old female past medical history of AFib on Eliquis, hypertension, asthma, presents the hospital with complaints of chest pain. Patient reports that the chest pain was midsternal, radiating to the left, as well as her jaw, intermittent, lasting 15 minutes, occurred at rest, and resolved spontaneously. reports that she has been having on of lower extremity edema and therefore recently her freight solicitor stopped her diltiazem about 3-4 days ago. She was also recently started on Lasix. And was planned for an echocardiogram outpatient. She feels palpitations in her chest, reports no nausea or vomiting, no abdominal pain diarrhea constipation, no urinary symptoms and no lower extremity edema. She does have some allergies and chronically has nasal congestion On arrival to the ED patient found to be in AFib with RVR with a heart rate of 142, patient freight solicitor was consulted at [facility], recommended resuming her di ltiazem and admission for symptomatic relief. Her labs are significant for a BNP of 630, and troponin negative x2 otherwise unremarkable Her EKG did show T-wave inversion in lead [address] depressions in lateral leads resolved after rate control. This was discussed with her freight solicitor, felt to be rate related. Chest x-ray shows mild interval improvement in the suspected left lower lobe ret rocardiac opacification with no new opacities Patient's heart rate is now controlled in the 80s, with symptoms resolved, patient will be admitted for further management Review of Systems Review of Systems: Yes all other systems are reviewed and are negative [facility] Medical History Anemia Asthma Atrial fibrillation, new onset Hypertension Hypertension Loculated pleural effusion MSSA bacteremia MILY (obstructive sleep apnea) Paroxysmal A-fib SOB (shortness of breath) UTI (urinary tract infection) Surgical History History of bunionectomy History of total left hip arthroplasty History of total replacement of right hip History of total right hip arthroplasty Left inguinal hernia S/P laparoscopic sleeve gastrectomy Social History Household Members: Spouse Household Members Other:: Danny Housing: House Do you presently have visiting nurse or other home services: No Alcohol intake: never Patient Tobacco Use Status: Former Tobacco user Quit Date: 1987 Tobacco use type: Cigarette Years Smoked: 16 years Smoked in Last 30 Days: No Second Hand Smoke Exposure: No Use of substances other than those prescribed or required for medical reasons: No Advance Directives: No Advance Directives Information Provided: No Nutrition Risks: No Nutritional Risk service: No 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al status: retired 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 Allergies Allergy/AdvReac Type Severity Reaction Status Date / Time No Known Allergies Allergy Verified 07/12/22 18:54 [No Known Allergies*] Active Medications: Current Medications Acetaminophen (Acetaminophen 325 Mg Tablet) 650 mg PO Q6H PRN PRN Reason: Pain, Mild (Pain Scale 1-3) Docusate Sodium (Docusate Sodium 100 Mg Capsule) 100 mg PO DAILY PRN PRN Reason: Constipation Nitroglycerin (Nitroglycerin 0.4 Mg Tab.Subl) 0.4 mg SUBLINGUAL Q5MX3 PRN PRN Reason: Chest Pain Ondansetron HCl (Ondansetron Hcl 4 Mg/2 Ml Vial) 4 mg IVPUSH Q8H PRN PRN Reason: Nausea and Vomiting Pharmacy Consult (Consult Rx Perform Med Rec) 1 each MISCELLANE ONCE PRN PRN Reason: Consult order Sodium Chloride (0.9 % Sodium Chloride Flush 3 Ml Syringe) 3 ml IVFLUSH [facility] Medications Medication Instructions Recorded Confirmed Last Taken Type pantoprazole 40 mg tablet,delayed 40 mg PO DAILY 01/10/20 07/12/22 Unknown Hi story release bupropion HCl 200 mg tablet,12 hr 200 mg PO BID@0900,1300 01/11/20 07/12/22 History sustained-release (Wellbutrin SR) lamotrigine 200 mg tablet 200 mg PO DAILY 12/05/20 07/12/22 05/27/22 History montelukast 10 mg tablet 10 mg PO DAILY 12/05/20 07/12/22 05/27/22 History oxybutynin chloride 10 mg 10 mg PO DAILY 12/05/20 07/12/22 05/27/22 History tablet,extended release 24 hr diltiazem HCl 360 mg 360 mg PO DAILY 05/28/22 07/12/22 Unknown History capsule,extended release 24 hr lamotrigine 100 mg tablet 100 mg PO BEDTIME 05/28/22 07/12/22 Unknown History fluticasone propionate 50 1 spray intranasal BID PRN Allergy 06/10/22 07/12/22 Unknown History mcg/actuation nasal Symptoms spray,suspension Physical Exam Vital Signs and Narrative: Vital Signs: Last Vital Signs Temp 98.5 F 07/12/22 22:58 Pulse 78 07/12/22 22:58 Resp 16 07/12/22 22:58 BP 128/62 07/12/22 22:58 Pulse Ox 96 07/12/22 22:58 O2 Del Method Room Air 07/12/22 22:58 BMI result Body Mass Index 26.4 Const: General: cooperative and no acute distress Orientation/consciousness: patient oriented x3 Eyes: General: appearance normal, both eyes and all related structures Resp: Other: Lungs clear to auscultation Effort & Inspection: normal respiratory effort Auscultation: clear to auscultation bilaterally Cardio: Other: Regular rate, irregular rhythm Rate: regular rate GI: Palpation (GI): Soft to palpation Auscultation: normal bowel sounds Skin: General skin exam: no rashes or lesions noted Neuro: General: patient oriented x3 Cognition (Neuro): normal cognition Extrem: Other: No evidence of pitting edema General: Yes normal to inspection and Yes no pedal edema Results Labs 07/12/22 19:30 07/12/22 19:30 Labs: Laboratory Results - last 24 hr 07/12/22 07/12/22 07/12/22 19:30 19:30 19:30 MCV 85.1 MCH 25.6 L MCHC 30.0 L RDW 21.2 H Plt Count 390 MPV 9.5 Immature Gran % (Auto) 0.2 Neut % (Auto) 59.0 Lymph % (Auto) 28.5 [place] % (Auto) 9.7 Eos % (Auto) 1.5 Baso % (Auto) 1.1 Lymph # (Auto) 1.9 [place] # (Auto) 0.6 Eos # (Auto) 0.1 Baso # (Auto) 0.1 Abs Immat Gran (auto) 0.01 Absolute Neuts (auto) 3.9 Absolute Nucleated RBC 0.000 Nucleated RBC % (auto) 0.0 PT 12.1 INR 1.1 APTT 37.8 H Anion Gap 12 Estim Creat Clear Calc 49.7 Estimated GFR > 60 Random Glucose 134 H Calcium 9.6 Magnesium 2.3 Total Bilirubin 0.3 AST 21 ALT 22 Alkaline Phosphatase 114 Troponin I High Sens B-Natriuretic Peptide Total Protein 7.3 Albumin 4.2 COVID-19 ([facility]) COVID-19 Clin Com 07/12/22 07/12/22 07/12/22 19:30 19:30 19:30 MCV MCH MCHC RDW Plt Count MPV Immature Gran % (Auto) Neut % (Auto) Lymph % (Auto) [place] % (Auto) Eos % (Auto) Baso % (Auto) Lymph # (Auto) [place] # (Auto) Eos # (Auto) Baso # (Auto) Abs Immat Gran (auto) Absolute Neuts (auto) Absolute Nucleated RBC Nucleated RBC % (auto) PT INR APTT Anion Gap Estim Creat Clear Calc Estimated GFR Random Glucose Calcium Magnesium Total Bilirubin AST ALT Alkaline Phosphatase Troponin I High Sens 8.0 B-Natriuretic Peptide 231 H Total Protein Albumin COVID-19 ([facility]) Negative COVID-19 Clin Com See Note 07/12/22 21:44 MCV MCH MCHC RDW Plt Count MPV Immature Gran % (Auto) Neut % (Auto) Lymph % (Auto) [place] % (Auto) Eos % (Auto) Baso % (Auto) Lymph # (Auto) [place] # (Auto) Eos # (Auto) Baso # (Auto) Abs Immat Gran (auto) Absolute Neuts (auto) Absolute Nucleated RBC Nucleated RBC % (auto) PT INR APTT Anion Gap Estim Creat Clear Calc Estimated GFR Random Glucose Calcium Magnesium Total Bilirubin AST ALT Alkaline Phosphatase Troponin I High Sens 7.2 B-Natriuretic Peptide Total Protein Albumin COVID-19 ([facility]) COVID-19 Clin Com Imaging Radiologist's Impressions: Impressions Chest X-Ray 07/12/22 20:03 IMPRESSION: Mild interval improvement in the suspected left lower lobe retrocardiac opacification. No definite new airspace opacities are seen. Assessment and Plan (1) Atrial fibrillation with RVR: Status: Acute (2) Chest pain: Status: Acute Plan 71-year-old female with past medical history of paroxysmal AFib, with recent discontinuation of diltiazem presents to the hospital with AFib in RVR # AFib with RVR - likely secondary to her discontinuation of diltiazem - states that she was not started on rate control after left has and was stopped about 3-4 days ago - this was stopped due to lower extremity edema - patient's diltiazem was resumed after discussion with her freight solicitor at [facility] with heart rate being controlled after that - at this time will obtain echocardiogram - continue diltiazem, digoxin - continue Eliquis # chest pain - typical chest pain - resolved after rate control - no troponin elevation - had ST T wave changes when in RVR, but resolved after rate control - this was also discussed with her freight solicitor, felt to be rate related - patient already on Eliquis - admit to telemetry # lower extremity edema - no lower extremity edema on exam, patient was recently started on furosemide at home - does not appear to be in acute exacerbation of CHF at this time - will obtain echocardiogram - continue home oral Lasix # history of asthma - continue home inhalers DVT prophylaxis: Eliquis Time Spent With Patient Time: Total time managing care of this patient today ____ minutes. Quality Stroke Does the patient have a stroke diagnosis?: No VTE Prior VTE?: No VTE Risk Level:: Medical - low VTE Device Contraindication: Treatment Not Indicated VTE Drug Contraindication: N/A - Med Ordered
[2022-07-12] MEDS: 0.9 % Sodium Chloride Flush 3 ML SYRINGE IVFLUSH (23:30)
[2022-07-13] MEDS: Albuterol Sulfate 90 MCG 8 GM INHALER 2 PUFF INHALE ×2 (00:28→21:00)
[2022-07-13] MEDS: Apixaban 5 MG TABLET PO ×3 (00:28→21:31)
[2022-07-13] MEDS: lamoTRIgine 100 MG TABLET PO ×2 (00:28→21:31)
[2022-07-13 02:07] VITALS: BP 130/73; PULSE 88; RESP 16; O2SAT 96
[2022-07-13 06:00] VITALS: BP 151/83; PULSE 90; RESP 19; O2SAT 95
[2022-07-13 06:39] LABS: Alanine Aminotransferase 18 U/L (0-31); Albumin Level 3.2 g/dL (3.5-5.0); Alkaline Phosphatase 84 U/L (39-117); Anion Gap 11 (12-20); Aspartate Amino Transferase 20 U/L (5-31); Bilirubin Total 0.2 mg/dL (0.0-1.0); Blood Urea Nitrogen 17 mg/dL (9-16); Calcium 8.9 mg/dL (8.4-10.2); Carbon Dioxide 26 mmol/L (22-29); Chloride 111 mmol/L (96-108); Creatinine Clr Calc Pharmacy 63.6; Estimated Glomerular Filt Rate > 60; Glucose Random 79 mg/dL (60-115); Potassium 3.4 mmol/L (3.3-5.1); Sodium 145 mmol/L (135-145); Total Protein 5.5 g/dL (6.5-8.0)
[2022-07-13 07:07] VITALS: BP 152/93; PULSE 84; RESP 20; TEMP 36.9; O2SAT 94
[2022-07-13] MEDS: dilTIAZem HCL CD 180 MG CAP.ER.24H 360 MG PO (08:59)
[2022-07-13] MEDS: oxyBUTYnin chloride ER 5 MG TAB.ER.24 10 MG PO (08:59)
[2022-07-13] MEDS: Digoxin 0.125 MG TABLET PO (08:59)
[2022-07-13] MEDS: buPROPion HCl XL 150 MG TAB.ER.24H 450 MG PO (09:00)
[2022-07-13] MEDS: Omeprazole 20 MG CAPSULE.DR PO (09:02)
[2022-07-13] MEDS: Montelukast Sodium 10 MG TABLET PO (09:02)
[2022-07-13] MEDS: Furosemide 40 MG TABLET PO (09:02)
[2022-07-13] MEDS: lamoTRIgine 100 MG TABLET 200 MG PO (09:03)
[2022-07-13] MEDS: 0.9 % Sodium Chloride Flush 3 ML SYRINGE IVFLUSH ×3 (09:05→21:31)
--- NOTE | 2022-07-13 09:06 | PC.NURSE ---
pt medicated per mar, Iv flushed.
--- NOTE | 2022-07-13 09:07 | PHA.MEDREC ---
Pharmacy Consult ? Medication Reconciliation Pharmacy has completed the medication reconciliation. Spoke to patient to confirm meds. Patient states they were taken off diltiazem for 3 days prior to hospital arrival by engineering faculty, and believes they should have been on it. Patient also states that they are on lamotrigine 200mg daily, 100mg at bedtime.
--- NOTE | 2022-07-13 10:36 | PC.NURSE ---
report given to HEMANT Thorpe. pt will be transported to room 452 by transporter, pt aware of plan. vss.
[2022-07-13 10:38] VITALS: BP 140/89; PULSE 95; RESP 16; O2SAT 99
[2022-07-13 11:01] VITALS: BP 146/78; PULSE 86; RESP 20; TEMP 37.1; O2SAT 97
[2022-07-13 11:14] VITALS: BMI 26.4
--- NOTE | 2022-07-13 13:44 | HO.PM.IMPN ---
Subjective Subjective Date of Service: 07/13/22 Interval History: seen and examined this morning follow up for afib with RVR feeling better, no chest pain or palpitations at this time Review of Systems Review of Systems: Yes all other systems are reviewed and are negative Constitutional Constitutional: Denies chills and Denies fever(s) Cardiovascular Cardiovascular: Denies chest pain, Denies palpitations and Denies dyspnea Respiratory Respiratory: Denies cough and Denies dyspnea Gastrointestinal Gastrointestinal: Denies abdominal pain, Denies nausea and Denies vomiting Endocrine Endocrine: Denies palpitations Physical Exam Vital Signs: Vital Signs: Last Vital Signs Temp 98.7 F 07/13/22 11:01 Pulse 86 07/13/22 11:01 Resp 20 07/13/22 11:01 BP 146/78 H 07/13/22 11:01 Pulse Ox 97 07/13/22 11:01 O2 Del Method Room Air 07/13/22 11:01 BMI result Body Mass Index 26.4 Const: General: cooperative, comfortable, no acute distress, alert and awake Nutritional Appearance: average body habitus Orientation/consciousness: patient oriented x3 Resp: Effort & Inspection: normal respiratory effort, able to speak in complete sentences, no respiratory distress and no use of accessory muscles Auscultation: clear to auscultation bilaterally Cardio: Rate: tachycardic Rhythm: abnormal rhythm irregularly irregular GI: Inspection: No distended Palpation (GI): Soft to palpation and nontender Neuro: General: patient oriented x3, moves all extremities and CN's II-XI intact bilaterally Extrem: General: Yes no pedal edema Objective Data Active Medications Acetaminophen (Acetaminophen 325 Mg Tablet) 650 mg PO Q6H PRN PRN Reason: Pain, Mild (Pain Scale 1-3) Albuterol Sulfate (Albuterol Sulfate 90 Mcg 8 Gm Inhaler) 2 puff INHALE Q4H PRN PRN Reason: shortness of breath or wheezing Last Admin: 07/13/22 00:28 Dose: 2 puff Documented By: TATIANNA Albuterol/Ipratropium (Albuterol/Iprat 2.5/0.5mg 3 Ml Ampul.Neb) 3 ml INHALE RQ4H PRN PRN Reason: shortness of breath,Wheezing Apixaban (Apixaban 5 Mg Tablet) 5 mg PO BID [facility] Last Admin: 07/13/22 09:02 Dose: 5 mg Documented By: PORSHA Bupropion HCl (Bupropion Hcl Xl 150 Mg Tab.Er.24h) 450 mg PO DAILY [facility] Last Admin: 07/13/22 09:00 Dose: 450 mg Documented By: PORSHA Digoxin (Digoxin 0.125 Mg Tablet) 0.125 mg PO DAILY [facility] Last Admin: 07/13/22 08:59 Dose: 0.125 mg Documented By: PORSHA Diltiazem HCl (Diltiazem Hcl Cd 180 Mg Cap.Er.24h) 360 mg PO DAILY [facility]; Protocol Last Admin: 07/13/22 08:59 Dose: 360 mg Documented By: PORSHA Docusate Sodium (Docusate Sodium 100 Mg Capsule) 100 mg PO DAILY PRN PRN Reason: Constipation Fluticasone Propionate (Fluticasone Propionate Nasal 16 Gm [place]) 1 spray NOSTRIL-B BID PRN PRN Reason: Allergy Symptoms Furosemide (Furosemide 40 Mg Tablet) 40 mg PO DAILY [facility]; Protocol Last Admin: 07/13/22 09:02 Dose: 40 mg Documented By: PORSHA Lamotrigine (Lamotrigine 100 Mg Tablet) 100 mg PO BEDTIME [facility] Last Admin: 07/13/22 00:28 Dose: 100 mg Documented By: TATIANNA Lamotrigine (Lamotrigine 100 Mg Tablet) 200 mg PO DAILY [facility] Last Admin: 07/13/22 09:03 Dose: 200 mg Documented By: PORSHA Montelukast Sodium (Montelukast Sodium 10 Mg Tablet) 10 mg PO DAILY [facility] Last Admin: 07/13/22 09:02 Dose: 10 mg Documented By: PORSHA Nitroglycerin (Nitroglycerin 0.4 Mg Tab.Subl) 0.4 mg SUBLINGUAL Q5MX3 PRN PRN Reason: Chest Pain Non-Formulary Medication (Aoidoxwviwr-Jbvukbvgw-Cxejzbnt [Trelegy Ellipta]) 1 inhalation INHALE DAILY [facility] Omeprazole (Omeprazole 20 Mg Capsule.Dr) 20 mg PO DAILY [facility] Last Admin: 07/13/22 09:02 Dose: 20 mg Documented By: PORSHA Ondansetron HCl (Ondansetron Hcl 4 Mg/2 Ml Vial) 4 mg IVPUSH Q8H PRN PRN Reason: Nausea and Vomiting Oxybutynin Chloride (Oxybutynin Chloride Er 5 Mg Tab.Er.24) 10 mg PO DAILY [facility] Last Admin: 07/13/22 08:59 Dose: 10 mg Documented By: PORSHA Pharmacy Consult (Consult Rx Perform Med Rec) 1 each MISCELLANE ONCE PRN PRN Reason: Consult order Sodium Chloride (0.9 % Sodium Chloride Flush 3 Ml Syringe) 3 ml IVFLUSH QSHIFT [facility] Last Admin: 07/13/22 09:05 Dose: 3 ml Documented By: PORSHA Labs 07/12/22 19:30 07/13/22 05:56 Labs: Laboratory Results - last 24 hr 07/12/22 07/12/22 07/12/22 19:30 19:30 19:30 MCV 85.1 MCH 25.6 L MCHC 30.0 L RDW 21.2 H Plt Count 390 MPV 9.5 Immature Gran % (Auto) 0.2 Neut % (Auto) 59.0 Lymph % (Auto) 28.5 [place] % (Auto) 9.7 Eos % (Auto) 1.5 Baso % (Auto) 1.1 Lymph # (Auto) 1.9 [place] # (Auto) 0.6 Eos # (Auto) 0.1 Baso # (Auto) 0.1 Abs Immat Gran (auto) 0.01 Absolute Neuts (auto) 3.9 Absolute Nucleated RBC 0.000 Nucleated RBC % (auto) 0.0 PT 12.1 INR 1.1 APTT 37.8 H Anion Gap 12 Estim Creat Clear Calc 49.7 Estimated GFR > 60 Random Glucose 134 H Calcium 9.6 Magnesium 2.3 Total Bilirubin 0.3 AST 21 ALT 22 Alkaline Phosphatase 114 Troponin I High Sens B-Natriuretic Peptide Total Protein 7.3 Albumin 4.2 COVID-19 ([facility]) COVID-19 Clin Com 07/12/22 07/12/22 07/12/22 19:30 19:30 19:30 MCV MCH MCHC RDW Plt Count MPV Immature Gran % (Auto) Neut % (Auto) Lymph % (Auto) [place] % (Auto) Eos % (Auto) Baso % (Auto) Lymph # (Auto) [place] # (Auto) Eos # (Auto) Baso # (Auto) Abs Immat Gran (auto) Absolute Neuts (auto) Absolute Nucleated RBC Nucleated RBC % (auto) PT INR APTT Anion Gap Estim Creat Clear Calc Estimated GFR Random Glucose Calcium Magnesium Total Bilirubin AST ALT Alkaline Phosphatase Troponin I High Sens 8.0 B-Natriuretic Peptide 231 H Total Protein Albumin COVID-19 ([facility]) Negative COVID-19 Clin Com See Note 07/12/22 07/13/22 21:44 05:56 MCV MCH MCHC RDW Plt Count MPV Immature Gran % (Auto) Neut % (Auto) Lymph % (Auto) [place] % (Auto) Eos % (Auto) Baso % (Auto) Lymph # (Auto) [place] # (Auto) Eos # (Auto) Baso # (Auto) Abs Immat Gran (auto) Absolute Neuts (auto) Absolute Nucleated RBC Nucleated RBC % (auto) PT INR APTT Anion Gap 11 L Estim Creat Clear Calc 63.6 Estimated GFR > 60 Random Glucose 79 Calcium 8.9 D Magnesium Total Bilirubin 0.2 AST 20 ALT 18 Alkaline Phosphatase 84 Troponin I High Sens 7.2 B-Natriuretic Peptide Total Protein 5.5 L Albumin 3.2 L COVID-19 ([facility]) COVID-19 Clin Com Assessment and Plan (1) Atrial fibrillation with RVR: Status: Acute Plan 71-year-old female with past medical history of paroxysmal AFib, with recent discontinuation of diltiazem presents to the hospital with AFib in RVR AFib with RVR HR intermittently elevated secondary to stopping diltiazem - discontinued by cardiology 3-4 days ago due to concern for cause of lower extremity edema diltiazem was resumed after discussion with her site safety manager at [facility] (Dr. Avila) - continue diltiazem, digoxin - if HR continues to be uncontrolled consider cardiac evaluation - continue Eliquis chest pain resolved after rate control, no further episodes thus far - no troponin elevation - had ST T wave changes when in RVR, but resolved after rate control - this was also discussed with her site safety manager, felt to be rate related - patient already on Eliquis lower extremity edema no lower extremity edema on exam, patient was recently started on furosemide at home does not appear to be in acute exacerbation of CHF at this time - continue home oral Lasix history of asthma - continue home inhalers mood continue lamicatal DVT prophylaxis: Hortensia attending - dr. sandhu requires ongoing inpatient stay for closely cardiac monitoring Time Spent With Patient Time: Total time managing care of this patient today ____ minutes. Quality Stroke Does the patient have a stroke diagnosis?: No VTE Prior VTE?: No VTE Risk Level:: Medical - low VTE Device Contraindication: Treatment Not Indicated VTE Drug Contraindication: N/A - Med Ordered
[2022-07-13 19:03] VITALS: BP 156/93; PULSE 91; RESP 20; TEMP 36.9; O2SAT 93
[2022-07-13] MEDS: traZODone HCL 25 MG HALFTAB PO (21:31)
[2022-07-14] VITALS: BP 142/65; PULSE 75; RESP 18; TEMP 37.1; O2SAT 97
[2022-07-14] MEDS: guaiFENesin DM 600/30 1 TAB TAB.ER.12H PO ×2 (00:01→09:10)
[2022-07-14 03:20] VITALS: BP 121/59; PULSE 88; RESP 18; TEMP 36.9; O2SAT 92
[2022-07-14 06:00] VITALS: BMI 26.9
[2022-07-14 07:15] VITALS: BP 139/63; PULSE 62; RESP 20; TEMP 36.5; O2SAT 93
--- NOTE | 2022-07-14 08:36 | MHC.CM.PN ---
MARLO andersonet with Patient at bedside and addressed YAGN with her, providing Patient with the original and placing a copy on the chart. Patient lives in a house with her /HCP and she uses a cane at times to assist with mobility. Home/self care is the goal and MARLO has initiated and will follow for dc planning. Patient has received Pfizer/covCarlotz vax x1 and her PCP is Dr. Eddie Messina.
[2022-07-14] MEDS: 0.9 % Sodium Chloride Flush 3 ML SYRINGE IVFLUSH (09:09)
[2022-07-14] MEDS: oxyBUTYnin chloride ER 5 MG TAB.ER.24 10 MG PO (09:10)
[2022-07-14] MEDS: dilTIAZem HCL CD 180 MG CAP.ER.24H 360 MG PO (09:10)
[2022-07-14] MEDS: lamoTRIgine 100 MG TABLET 200 MG PO (09:10)
[2022-07-14] MEDS: buPROPion HCl XL 150 MG TAB.ER.24H 450 MG PO (09:10)
[2022-07-14] MEDS: Apixaban 5 MG TABLET PO (09:11)
[2022-07-14] MEDS: Digoxin 0.125 MG TABLET PO (09:11)
[2022-07-14] MEDS: Furosemide 40 MG TABLET PO (09:11)
[2022-07-14] MEDS: Montelukast Sodium 10 MG TABLET PO (09:11)
[2022-07-14] MEDS: Omeprazole 20 MG CAPSULE.DR PO (09:11)
--- NOTE | 2022-07-14 10:18 | MHC.CM.PN ---
Per ROUNDS discussion, Patient needs close cardiac monitoring and is not yet medically cleared for dc. CM will follow.
--- NOTE | 2022-07-14 11:28 | P.DS_ITS ---
DS: Providers Provider Date of Service: 07/14/22 Date of admission: 07/12/22 23:06 Primary care physician: Eddie Messina MD DS: Diagnosis Discharge Diagnosis (1) Atrial fibrillation with RVR: Status: Acute DS: Summary Hospital Course Hospital Course: HP as per admitting provider 71-year-old female past medical history of AFib on Eliquis, hypertension, asthma, presents the hospital with complaints of chest pain.? Patient reports that the chest pain was midsternal, radiating to the left, as well as her jaw, intermittent, lasting 15 minutes, occurred at rest, and resolved spontaneously.? reports that she has been having on of lower extremity edema and therefore recently her cover cutter machine stopped her diltiazem about 3-4 days ago.? She was also recently started on Lasix.? And was planned for an echocardiogram outpatient.? She feels palpitations in her chest, reports no nausea or vomiting, no abdominal pain diarrhea constipation, no urinary symptoms and no lower extremity edema. She does have some allergies and chronically has nasal congestion. On arrival to the ED patient found to be in AFib with RVR with a heart rate of 142, patient cover cutter machine was consulted at [facility], recommended resuming her diltiazem and admission for symptomatic relief.?Her labs are significant for a BNP of 630, and troponin negative x2 otherwise unremarkable. Her EKG did show T-wave inversion in lead [address] depressions in lateral leads resolved after rate control.? This was discussed with her cover cutter machine, felt to be rate related. Chest x-ray shows mild interval improvement in the suspected left lower lobe retrocardiac opacification with no new opacities. Patient's heart rate is now controlled in the 80s, with symptoms resolved, patient will be admitted for further management . AFib with RVR. HR intermittently initially elevated secondary to stopping diltiazem - discontinued by cardiology 3-4 days ago due to concern for cause of lower extremity edema diltiazem was resumed after discussion with her cover cutter machine at [facility] (Dr. Avila), continue diltiazem, digoxin, eliquis. Follow up with cover cutter machine outpatient. Scheduled echo 07/15/22 as per patient. RVR resolved. chest pain. resolved after rate control, no further episodes thus far, no troponin elevation, had ST T wave changes when in RVR, but resolved after rate control, this was also discussed with her cover cutter machine, felt to be rate related. patient already on Eliquis lower extremity edema. no lower extremity edema on exam, patient was recently started on furosemide at home does not appear to be in acute exacerbation of CHF at this time. continue home oral Lasix. history of asthma. continue home inhalers mood. continue lamicatal Time Spent with Patient Time attestation: Total time managing care of this patient today ____ minutes. Discharge coordination time: Greater than 30 minutes Quality: Safe Use of Opioids Does Pt have an Active Cancer Diagnosis on the Problem List?: No Quality: Stroke Does the patient have a stroke diagnosis?: No Physical Exam Vital Signs: Vital Signs: Last Vital Signs Temp 97.7 F 07/14/22 07:15 Pulse 62 07/14/22 07:15 Resp 20 07/14/22 07:15 BP 139/63 07/14/22 07:15 Pulse Ox 93 07/14/22 07:15 O2 Del Method Room Air 07/14/22 07:15 BMI result Body Mass Index 26.9 Appearing in no acute distress head is normocephalic atraumatic eyes pupils are PERRLA sclera is anicteric mouth throat mucous membranes are intact and moist neck is supple no lymphadenopathy, no JVD noted lung sounds are clear to auscultation heart regular rate rhythm, clear S1, S2 positive bowel sounds, abdomen is soft, nontender neuro patient is alert x3, no focal deficits DS: Data Data Completed and Pending Completed studies during hospitalization [Text1]: Procedures Drainage of Left Pleural Cavity with Drainage Device, Percutaneous Approach (08/24/21) Insertion of Infusion Device into Superior Vena Cava, Percutaneous Approach (08/24/21) Introduction of Other Therapeutic Substance into Pleural Cavity, Percutaneous Approach (08/24/21) Introduction of Remdesivir Anti-infective into Peripheral Vein, Percutaneous Approach, [employer] (08/24/21) Discharge Plan Discharge Anticipated Discharge Date/Time: 07/14/22 11:24 Patient Disposition: Home, Self-Care Discharge Diagnosis: Afib rvr Referrals: Eddie Messina MD [Primary Care Provider] - 1 Week Discharge Medications: Continued Trelegy Ellipta 200-62.5-25 mcg blister with device 1 inh inhalation DAILY 30 Days Qty: 1 6RF albuterol sulfate [ProAir HFA] 90 mcg/actuation HFA aerosol inhaler 2 puff inhalation Q4-6H PRN (Reason: shortness of breath or wheezing) Qty: 8.5 6RF digoxin 125 mcg (0.125 mg) Tablet 0.125 mg PO DAILY Qty: 30 0RF Eliquis 5 mg Tablet 5 mg PO BID Qty: 60 0RF fluticasone propionate 50 mcg/actuation spray,suspension 1 spray intranasal BID PRN (Reason: Allergy Symptoms) loratadine [Claritin] 10 mg Tablet 10 mg PO DAILY PRN (Reason: Allergy Symptoms) diltiazem HCl 360 mg capsule,extended release 24hr 360 mg PO DAILY lamotrigine 100 mg tablet 100 mg PO BEDTIME pantoprazole 40 mg tablet,delayed release (DR/EC) 40 mg PO DAILY bupropion HCl [Wellbutrin SR] 200 mg tablet sustained-release 12 hr 200 mg PO BID@0900,1300 montelukast 10 mg tablet 10 mg PO DAILY lamotrigine 200 mg tablet 200 mg PO DAILY oxybutynin chloride 10 mg tablet extended release 24hr 10 mg PO DAILY furosemide [Lasix] 40 mg tablet 40 mg PO QAM Qty: 14 0RF Discharge Orders: Discharge Order (Routine); Ordered 07/14/22 Ordered By: Elaina Poole Diet: Advance to usual diet Activity on Discharge: As tolerated Stand Alone Forms: Patient Portal Discharge page Care Plan Goals: Complete resolution of symptoms Health Concerns: AFib RVR Plan of Treatment: Follow-up with primary care provider as needed Take all medications as prescribed Assessment: See discharge summary
[2022-07-14 11:36] VITALS: BP 102/55; PULSE 84; RESP 20; TEMP 36.6; O2SAT 95
--- NOTE | 2022-07-14 12:35 | MHC.CM.PN ---
Patient has been medically cleared for dc to home today, self care.
[2022-07-14 23:36] VITALS: BP 132/72; PULSE 69; RESP 20; TEMP 36.1; O2SAT 92
== END 2022-07-14 11:15 | disposition home or self-care (01) ==
LOC: HO.ED 22:25 → HO.EDOVER 23:13 → HO.IMC 07-13 09:29
PROVIDERS: Physician Assistant Medical; Admitting Provider Internal Medicine; Emergency Provider Emergency Medicine; PCP Internal Medicine; Visit Provider Nurse Practitioner Acute Care
DX: I48.20 Chronic atrial fibrillation, unspecified (principal); R07.9 Chest pain, unspecified; R60.0 Localized edema; Z20.822 Contact with and (suspected) exposure to COVID-19; I10 Essential (primary) hypertension; I48.0 Paroxysmal atrial fibrillation; R06.02 Shortness of breath; J45.909 Unspecified asthma, uncomplicated; Z87.891 Personal history of nicotine dependence; Z79.01 Long term (current) use of anticoagulants; Z79.899 Other long term (current) drug therapy; Z98.84 Bariatric surgery status
CPT/HCPCS: 36415; 71046; 80053; 83735; 83880; 84484; 85025; 85610; 85730; 87635; 93005; 96374; 99222; 99285

== ENCOUNTER 2022-08-26 13:42 | Emergency (ER) | payer MEDICARE, SELFPAY ==
--- NOTE | ~2022-08-26 | XR_ITS ---
EXAMINATION: XR CHEST CLINICAL INFORMATION: Chest pain 07/12/2022 COMPARISON: Multiple previous chest radiographs, most recent, 07/12/2022. Chest CT dated 03/18/2022 TECHNIQUE: 2 views of the chest were obtained. FINDINGS: Heart size upper limits of normal. Aorta is tortuous. There is no vascular congestion. No consolidations or effusions. Improved mild increased markings markings are seen in the right upper lobe from 07/12/2022. Minimal left base atelectasis. Left upper quadrant surgical clips again seen. Old right posterior rib fracture. XR/XR chest 2V IMPRESSION: Mild increased markings right upper lobe. Minimal left base atelectasis.
[2022-08-26 13:42] VITALS: BMI 25.2
--- NOTE | 2022-08-26 13:44 | ECG_ITS ---
Test Reason : CHEST PAIN Blood Pressure : / mmHG Vent. Rate : 080 BPM Atrial Rate : 000 BPM P-R Int : 000 ms QRS Dur : 112 ms QT Int : 364 ms P-R-T Axes : 000 -49 127 degrees QTc Int : 419 ms Atrial fibrillation Left anterior fascicular block Left ventricular hypertrophy with repolarization abnormality ( R in aVL , Odon product ) Cannot rule out Septal infarct , age undetermined Abnormal ECG When compared with ECG of 12-JUL-2022 22:37, No significant change was found Referred By: Generic ED Physician Electronically Signed By:Edd Galvez
[2022-08-26 14:05] LABS: MANUAL DIFF FLAG NO
[2022-08-26 14:12] LABS: Basophils Absolute Auto 0.1 X10*3/uL (0.0-0.2); Basophils Percent Auto 0.8 % (0-2); Eosinophils Absolute Auto 0.2 X10*3/uL (0.0-0.4); Eosinophils Percent Auto 1.6 % (0-4); Hematocrit 38.4 % (37.0-47.0); Hemoglobin 11.5 g/dl (12.0-16.0); Imm Gran Abs Auto 0.05 X10*3/uL (0.00-0.03); Imm Gran Pct Auto 0.5 % (0.0-0.4); Lymphocytes Absolute Auto 2.8 X10*3/uL (1.2-4.9); Lymphocytes Percent Auto 28.8 % (20-40); Mean Corpuscular HGB Conc 29.9 g/dl (31.0-35.0); Mean Corpuscular Hemoglobin 23.9 pg (27.0-33.0); Mean Corpuscular Volume 79.7 fL (80.0-98.0); Mean Platelet Volume 9.6 fL (9.4-12.3); Monocytes Absolute Auto 0.8 X10*3/uL (0.1-1.2); Neutrophils Absolute Auto 5.9 x10*3/uL (2.0-8.3); Neutrophils Percent Auto 60.3 % (45-73); Platelet Count 305 X10*3/uL (160-400); Red Blood Count 4.82 X10*6/uL (4.20-5.50); Red Cell Distribution Width 18.4 % (11.0-16.0); White Blood Count 9.7 X10*3/uL (4.8-10.8)
[2022-08-26 14:16] VITALS: BP 130/88; PULSE 82; RESP 16; TEMP 36.2; O2SAT 98; BMI 26.3
--- NOTE | 2022-08-26 14:19 | ED_ITS ---
HPI - Chest Pain General Chief Complaint: Chest Pain Stated Complaint: chest pain Time Seen by Provider: 08/26/22 18:41 Source: patient Mode of arrival: ambulatory Limitations: no limitations History of Present Illness HPI narrative: Patient is a 71-year-old female with history of atrial fibrillation, hypertension, asthma, anemia, MILY presenting to the emergency department with complaint of fatigue, shortness of breath and palpitations after pulmonary rehab today. States that she felt fatigued upon waking this morning but went to rehab any ways. [place] okay on 1st 1 or 2 exercises there, felt worsening fatigue and shortness of breath as she continued to the remainder of her exercises. Vital signs were checked there and patient states they were normal. Had to sit down several times on her way out of the building following rehab. Was able to drive herself home. Once home she continued to feel shortness of breath and palpitations. She checked her oxygen with her home pulse oximeter and states her O2 sat was normal. She denies any episodes of chest pain at any point. Reports baseline cough, denies any worsening cough. Denies fever. Denies recent calf tenderness or swelling. Reports that since having COVID 1 year prior, has had multiple episodes of pneumonia and has had difficulty returning to baseline level of functioning which is why she has been going to pulmonary rehab. states that patient has been ?pushing it? on her stationary bicycle at home and feels she has over exerted herself. complaint: other (Shortness of breath) Pertinent past history: other (Atrial fibrillation) Onset (ago): hour(s) Timing of current episode: now resolved Prior episodes: No Onset: during exertion Relieving factors: rest Exacerbating factors: movement Treatment prior to arrival: none Related Data Home Medications Medication Instructions Recorded Confirmed pantoprazole 40 mg tablet,delayed 40 mg PO DAILY 01/10/20 07/12/22 release bupropion HCl 200 mg tablet,12 hr 200 mg PO BID@0900,1300 01/11/20 07/12/22 sustained-release (Wellbutrin SR) lamotrigine 200 mg tablet 200 mg PO DAILY 12/05/20 07/12/22 montelukast 10 mg tablet 10 mg PO DAILY 12/05/20 07/12/22 oxybutynin chloride 10 mg 10 mg PO DAILY 12/05/20 07/12/22 tablet,extended release 24 hr diltiazem HCl 360 mg 360 mg PO DAILY 05/28/22 07/12/22 capsule,extended release 24 hr lamotrigine 100 mg tablet 100 mg PO BEDTIME 05/28/22 07/13/22 fluticasone propionate 50 1 spray intranasal BID PRN Allergy 06/10/22 07/12/22 mcg/actuation nasal Symptoms spray,suspension loratadine 10 mg tablet (Claritin) 10 mg PO DAILY PRN Allergy Symptoms 07/13/22 07/13/22 Previous Rx's Medication Instructions Recorded digoxin 125 mcg (0.125 mg) tablet 0.125 mg PO DAILY #30 tabs 09/11/21 apixaban 5 mg tablet (Eliquis) 5 mg PO BID #60 tabs 09/12/21 fluticasone fur. 200 mcg-umeclid 1 inh inhalation DAILY 30 days #1 04/23/22 62.5 mcg-vilant 25 mcg ea inhalat.powder (Trelegy Ellipta) albuterol sulfate 90 mcg/actuation 2 puff inhalation Q4-6H PRN 05/05/22 aerosol inhaler (ProAir HFA) shortness of breath or wheezing #8.5 grams furosemide 40 mg tablet (Lasix) 40 mg PO QAM #30 tabs 07/24/22 furosemide 20 mg tablet 20 mg PO QPM #30 tabs 08/05/22 Allergies Allergy/AdvReac Type Severity Reaction Status Date / Time No Known Allergies Allergy Verified 07/12/22 18:54 [No Known Allergies*] Review of Systems Review of Systems: As per HPI. Yes all other systems are reviewed and are negative Constitutional: Constitutional: Reports as per HPI [facility] Past Medical History Medical History Anemia Asthma Atrial fibrillation, new onset Hypertension Hypertension Loculated pleural effusion MSSA bacteremia MILY (obstructive sleep apnea) Paroxysmal A-fib SOB (shortness of breath) UTI (urinary tract infection) Surgical History History of bunionectomy History of total left hip arthroplasty History of total replacement of right hip History of total right hip arthroplasty Left inguinal hernia S/P laparoscopic sleeve gastrectomy Social History Social History Household Members: Family Household Members Other:: Danny Housing: House Do you presently have visiting nurse or other home services: No Alcohol intake: never Patient Tobacco Use Status: Former Tobacco user Quit Date: 1987 Tobacco use type: Cigarette Years Smoked: 16 years Smoked in Last 30 Days: No Second Hand Smoke Exposure: No Use of substances other than those prescribed or required for medical reasons: No Advance Directives: No Advance Directives Information Provided: No service: No 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al status: retired 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: Right Handed Physical Exam Vital Signs: Vital Signs: Last Vital Signs Temp 98.7 F 08/26/22 20:11 Pulse 77 08/26/22 20:36 Resp 22 H 08/26/22 20:36 BP 158/81 H 08/26/22 20:11 Pulse Ox 95 08/26/22 20:11 O2 Del Method Room Air 08/26/22 20:11 BMI result Body Mass Index 26.3 Vital signs have been reviewed and appear to be correct. Blood pressure normal. Heart rate normal. Respiratory rate normal. Temperature normal. Oxygen saturation normal. Const: General: cooperative, healthy appearing and no acute distress Orientation/consciousness: oriented to person, oriented to place, oriented to time and patient oriented x3 Limitations: no limitations HEENT: Head: Yes normocephalic and Yes atraumatic Ears: external ears normal General nose exam: Normal external nose present Face and sinus: Yes face symmetric Mouth: oropharynx normal and moist mucous membranes Throat: Yes uvula midline Eyes: Pupils: Equal, round and reactive pupils present Neck: Neck: Yes normal visual inspection and Yes supple Resp: Effort & Inspection: normal respiratory effort and able to speak in complete sentences Auscultation: diminished lung sounds diffuse Cardio: Rate: regular rate Rhythm: abnormal rhythm irregularly irregular Heart sounds: S1 normal heart sound present and S2 normal heart sound present GI: Palpation (GI): Soft to palpation and nontender Auscultation: normoactive bowel sounds : General: Yes no CVA tenderness Back/Spine/Pelvis: Back: no CVA tenderness Skin: General skin exam: elasticity normal and turgor normal Neuro: General: oriented to person, oriented to place, oriented to time, patient oriented x3, moves all extremities, no focal motor deficits and CN's II- XI intact bilaterally Cranial nerves: Yes Equal, round and reactive pupils present Cognition (Neuro): normal cognition Extrem: General: Yes full ROM, Yes no pedal edema and Yes no calf tenderness Psych: Mental Status: mental status grossly normal Affect: normal affect Thought process: Normal thought process present Course Course Course Narrative: This is a rapid medical exam. Deferred additional HPI, ROS, PE to primary provider. 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 Feeling overall improved here but symptoms not completely resolved. Pt is in afib in triage, rate controlled. Blood pressure stable. [place] [facility] [place] [facility] [place] obtain labs, EKG, CXR VSS Medications Administered Discontinued Medications Generic Name Dose Route Start Last Admin Trade Name Freq PRN Reason Stop Dose Admin Albuterol Sulfate 5 mg 08/26/22 20:17 08/26/22 20:34 Albuterol Sulfate (0.083%) 2.5 Mg/3 Ml Vial.Neb INHALE 08/26/22 20:18 5 mg ONCE ONE Administration Medical Decision Making Medical Decision Making MDM Narrative: Patient is a 71-year-old female with history of atrial fibrillation, hypertension, asthma, anemia, MILY presenting to the emergency department with complaint of fatigue, shortness of breath and palpitations after pulmonary rehab today. On exam patient is awake, A+Ox3, VS WNL, afebrile, normal neurological exam without focal deficits, LS diminished throughout. Given reported symptoms and physical exam findings, initial differential includes ACS, pneumonia, afib with RVR, pneumothorax. PE unlikely based on Wells score. Labs notable for initial troponin of 5.2, delta trop negative. HEART score of 5. X-ray notable for mild increased markings right upper lobe, minimal left base atelectasis which appears consistent with prior recent chest x-rays. My interpretation is in agreement with the radiologist's interpretation. Ordered albuterol neb treatment as patient states she was unable to use her albuterol inhaler today. Patient reports good improvement in symptoms after neb treatment. Feel patient is stable for discharge home at this time. Instructed patient to contact PCP tomorrow for follow-up appointment. Advised patient to continue utilizing her incentive spirometer and inhaler at home. All results discussed and questions answered. Return precautions discussed bedside. Patient verbalized understanding of an agreement with plan. Differential Diagnosis Differential Diagnoses: The differential diagnosis associated with the presentation includes As per [facility] Admission/Observation Consideration of admission/observation: Escalation of care including admission/observation considered Considered on arrival given complaint of dyspnea and palpitations Lab Data [facility] Lab Attestation statement: I reviewed the patient's lab results. As per [facility]. 08/26/22 14:02 08/26/22 14:02 Labs: Lab Results 08/26/22 08/26/22 08/26/22 Range/Units 14:02 14:02 14:02 WBC 9.7 (4.8-10.8) X10*3/uL RBC 4.82 (4.20-5.50) X10*6/uL Hgb 11.5 L (12.0-16.0) g/dl Hct 38.4 (37.0-47.0) % MCV 79.7 L (80.0-98.0) fL MCH 23.9 L (27.0-33.0) pg MCHC 29.9 L (31.0-35.0) g/dl RDW 18.4 H (11.0-16.0) % Plt Count 305 (160-400) X10*3/uL MPV 9.6 (9.4-12.3) fL Immature Gran % (Auto) 0.5 H (0.0-0.4) % Neut % (Auto) 60.3 (45-73) % Lymph % (Auto) 28.8 (20-40) % [place] % (Auto) 8.0 (2-11) % Eos % (Auto) 1.6 (0-4) % Baso % (Auto) 0.8 (0-2) % Lymph # (Auto) 2.8 (1.2-4.9) X10*3/uL [place] # (Auto) 0.8 (0.1-1.2) X10*3/uL Eos # (Auto) 0.2 (0.0-0.4) X10*3/uL Baso # (Auto) 0.1 (0.0-0.2) X10*3/uL Abs Immat Gran (auto) 0.05 H (0.00-0.03) X10*3/uL Absolute Neuts (auto) 5.9 (2.0-8.3) x10*3/uL Absolute Nucleated RBC 0.000 (0.0-0.012) X10*3/uL Nucleated RBC % (auto) 0.0 (0.0-0.2) /100WBC Sodium 141 (135-145) mmol/L Potassium 3.8 (3.3-5.1) mmol/L Chloride 104 (96-108) mmol/L Carbon Dioxide 29 (22-29) mmol/L Anion Gap 12 (12-20) BUN 19 H (9-16) mg/dL Creatinine 0.81 (0.5-1.4) mg/dL Estim Creat Clear Calc 56.4 Estimated GFR > 60 Random Glucose 84 (60-115) mg/dL Calcium 9.6 D (8.4-10.2) mg/dL Magnesium 2.1 (1.6-2.6) mg/dL Troponin I High Sens 5.2 (<3.5-17.0) ng/L 08/26/22 Range/Units 19:28 WBC (4.8-10.8) X10*3/uL RBC (4.20-5.50) X10*6/uL Hgb (12.0-16.0) g/dl Hct (37.0-47.0) % MCV (80.0-98.0) fL MCH (27.0-33.0) pg MCHC (31.0-35.0) g/dl RDW (11.0-16.0) % Plt Count (160-400) X10*3/uL MPV (9.4-12.3) fL Immature Gran % (Auto) (0.0-0.4) % Neut % (Auto) (45-73) % Lymph % (Auto) (20-40) % Marathon % (Auto) (2-11) % Eos % (Auto) (0-4) % Baso % (Auto) (0-2) % Lymph # (Auto) (1.2-4.9) X10*3/uL [place] # (Auto) (0.1-1.2) X10*3/uL Eos # (Auto) (0.0-0.4) X10*3/uL Baso # (Auto) (0.0-0.2) X10*3/uL Abs Immat Gran (auto) (0.00-0.03) X10*3/uL Absolute Neuts (auto) (2.0-8.3) x10*3/uL Absolute Nucleated RBC (0.0-0.012) X10*3/uL Nucleated RBC % (auto) (0.0-0.2) /100WBC Sodium (135-145) mmol/L Potassium (3.3-5.1) mmol/L Chloride (96-108) mmol/L Carbon Dioxide (22-29) mmol/L Anion Gap (12-20) BUN (9-16) mg/dL Creatinine (0.5-1.4) mg/dL Estim Creat Clear Calc Estimated GFR Random Glucose (60-115) mg/dL Calcium (8.4-10.2) mg/dL Magnesium (1.6-2.6) mg/dL Troponin I High Sens 6.0 (<3.5-17.0) ng/L Independent Interpretation I performed an independent interpretation of an: EKG and Plain X-Ray Interpretation: Atrial fibrillation, rate 80bpm, normal QT interval. CXR: left base atelectasis, increased markings RUL Radiology Impression Discussion of test interpretation with radiology: I have reviewed the radiologist's reading. Radiologist Impression: XR/XR chest 2V IMPRESSION: Mild increased markings right upper lobe. Minimal left base atelectasis. Independent Historian Clinical information obtained from an independent historian. History obtained from or confirmed by: Spouse External Record Review External record reviewed: Inpatient record, Office record and Outpatient record Scores Heart Score History: -0- slightly suspicious ECG: -1- non specific repolarization disturbance Age: -2- > or = 65 Risk factory: -1- 1 or 2 risk factors Troponin: -1- >1 - <3x normal limit Score: 5 Risk: 16.6% Discharge Plan Discharge Clinical Impression: Shortness of breath, Palpitations Patient Disposition: Home, Self-Care Instructions: Shortness of Breath (ED), Heart Palpitations (DC) Additional Instructions: You were evaluated in the emergency department today for shortness of breath and palpitations. Your evaluation has shown no signs of medical conditions req uiring emergent intervention at this time, however we recommend that you follow- up with your primary care physician as soon as possible for further testing as an outpatient. 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 Return to the emergency department if you experience worsening or uncontrolled chest pain, shortness of breath, lightheadedness, feeling faint, loss of consciousness, nausea, vomiting, or any other concerning symptoms. Prescriptions: No Action Trelegy Ellipta 200-62.5-25 mcg blister with device 1 inh inhalation DAILY 30 Days Qty: 1 6RF albuterol sulfate [ProAir HFA] 90 mcg/actuation HFA aerosol inhaler 2 puff inhalation Q4-6H PRN (Reason: shortness of breath or wheezing) Qty: 8.5 6RF furosemide [Lasix] 40 mg tablet 40 mg PO QAM Qty: 30 3RF furosemide 20 mg tablet 20 mg PO QPM Qty: 30 0RF digoxin 125 mcg (0.125 mg) Tablet 0.125 mg PO DAILY Qty: 30 0RF Eliquis 5 mg Tablet 5 mg PO BID Qty: 60 0RF fluticasone propionate 50 mcg/actuation spray,suspension 1 spray intranasal BID PRN (Reason: Allergy Symptoms) loratadine [Claritin] 10 mg Tablet 10 mg PO DAILY PRN (Reason: Allergy Symptoms) diltiazem HCl 360 mg capsule,extended release 24hr 360 mg PO DAILY lamotrigine 100 mg tablet 100 mg PO BEDTIME pantoprazole 40 mg tablet,delayed release (DR/EC) 40 mg PO DAILY bupropion HCl [Wellbutrin SR] 200 mg tablet sustained-release 12 hr 200 mg PO BID@0900,1300 montelukast 10 mg tablet 10 mg PO DAILY lamotrigine 200 mg tablet 200 mg PO DAILY oxybutynin chloride 10 mg tablet extended release 24hr 10 mg PO DAILY Referrals: [facility] [place] Cardiovascular Services [Provider Group]
[2022-08-26 14:23] LABS: Anion Gap 12 (12-20); Blood Urea Nitrogen 19 mg/dL (9-16); Calcium 9.6 mg/dL (8.4-10.2); Carbon Dioxide 29 mmol/L (22-29); Chloride 104 mmol/L (96-108); Creatinine Clr Calc Pharmacy 56.4; Estimated Glomerular Filt Rate > 60; Glucose Random 84 mg/dL (60-115); Potassium 3.8 mmol/L (3.3-5.1); Sodium 141 mmol/L (135-145)
[2022-08-26 14:31] LABS: Troponin-I High Sensitivity 5.2 ng/L (<3.5-17.0)
[2022-08-26 14:52] LABS: Magnesium 2.1 mg/dL (1.6-2.6)
[2022-08-26 20:11] VITALS: BP 158/81; PULSE 66; RESP 13; TEMP 37.1; O2SAT 95
[2022-08-26] MEDS: Albuterol Sulfate (0.083%) 2.5 MG/3 ML VIAL.NEB 5 MG INHALE (20:34)
[2022-08-26 20:36] VITALS: PULSE 77; RESP 22; O2SAT 95
[2022-08-26 23:04] VITALS: BP 151/73; PULSE 70; RESP 14; TEMP 36.7; O2SAT 97
--- NOTE | 2022-08-26 23:05 | PC.NURSE ---
iv removed at discharge. pt calm and cooperative. pt at bedside.vss. pt ambulatory at discharge. pt provided with discharge packet. pt verbalized understanding of discharge plan
== END 2022-08-26 23:10 | disposition home or self-care (01) ==
PROVIDERS: Nurse Practitioner Family; Registered Nurse Emergency; Emergency Provider Emergency Medicine; PCP Internal Medicine
DX: R07.89 Other chest pain (principal); R06.02 Shortness of breath; I48.91 Unspecified atrial fibrillation; R00.2 Palpitations; Z79.01 Long term (current) use of anticoagulants; Z79.899 Other long term (current) drug therapy; Z87.891 Personal history of nicotine dependence
CPT/HCPCS: 36415; 71046; 80048; 83735; 84484; 85025; 93005; 94640; 99284; 99285

== ENCOUNTER → 2022-08-26 13:44 | Outpatient (BNV) | payer MEDICARE, SELFPAY ==
[2022-08-26 13:42] VITALS: BMI 25.2
== END ==
PROVIDERS: Emergency Provider Emergency Medicine; PCP Internal Medicine; Visit Provider Internal Medicine Cardiovascular Disease
DX: I48.91 Unspecified atrial fibrillation (principal)
CPT/HCPCS: 93010

== ENCOUNTER 2022-10-21 13:06 | Outpatient (AMB) | payer MEDICARE, SELFPAY ==
[2022-10-21 13:08] VITALS: BP 102/62; PULSE 111; O2SAT 94; BMI 24.7
--- NOTE | 2022-10-21 13:08 | A.OFFVIS_ITS ---
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 At the last office visit her diuretic regimen was increased with some improvement in her dyspnea. Unfortunately patient has had several hospitalizations at [facility] for what appears to be worsening dyspnea and was discharged on supplemental oxygen 2 L for ?asthma exacerbation. She also was started on prednisone 5 mg daily by her primary care provider. Of note, patient recently had left rotator cuff surgery. She continues to complain of significant dyspnea on exertion, orthopnea, and paroxysmal nocturnal dyspnea. On physical exam patient with significant AFib with ventricular rate in 120's. [facility], [facility] Medical History Anemia Asthma Atrial fibrillation, new onset Hypertension Hypertension Loculated pleural effusion MSSA bacteremia MILY (obstructive sleep apnea) Paroxysmal A-fib SOB (shortness of breath) UTI (urinary tract infection) Surgical History History of bunionectomy History of total left hip arthroplasty History of total replacement of right hip History of total right hip arthroplasty Left inguinal hernia S/P laparoscopic sleeve gastrectomy Social History Household Members: Family Household Members Other:: Danny Housing: House Do you presently have visiting nurse or other home services: No Alcohol intake: never Patient Tobacco Use Status: Former Tobacco user Quit Date: 1987 Tobacco use type: Cigarette Years Smoked: 16 years Second Hand Smoke Exposure: No service: No 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al status: retired 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 [employer] Const Denies daytime sleepiness, Denies excessive sweating, Denies fatigue, Denies fever(s), Denies lethargy, Denies malaise, Denies night sweats, Denies snoring and Denies weight loss Eyes Denies blurry vision and Denies itchy eyes ENT Denies nasal congestion, Denies post nasal drip, Denies sinus pain, Denies sinus pressure and Denies other ( Thrush) Card Denies chest pain, Reports pedal edema (Mild), Denies dyspnea, Reports dyspnea on exertion, Reports orthopnea and Reports paroxysmal nocturnal dyspnea Resp Denies cough, Denies hemoptysis, Denies excessive phlegm production, Denies dyspnea, Reports dyspnea on exertion, Denies snoring and Reports wheezing GI Denies abdominal pain and Denies heartburn Musc Denies myalgias, Denies arthralgias and Denies joint swelling Skin/Breast Denies rash Neuro Denies memory loss and Denies seizure-like activity Psych Denies abnormal sleep pattern, Denies anxiety and Denies memory loss Endo Denies excessive sweating, Denies fatigue and Denies heat intolerance Micah/Lymph Denies easy bruising Aller/Immun Denies itchy eyes, Denies seasonal rhinorrhea and Reports wheezing Physical Exam Vital Signs: Last Vital Signs Pulse 111 H 10/21/22 13:08 BP 102/62 10/21/22 13:08 Pulse Ox 94 10/21/22 13:08 Oxygen Delivery Method Nasal Cannula 10/21/22 13:08 Oxygen Flow Rate 2 10/21/22 13:08 BMI result Body Mass Index 24.7 Const General: no acute distress and alert Nutritional Appearance: not obese Orientation/consciousness: Other orientation findings ( oriented) HEENT Head: Yes atraumatic Eyes General: appearance normal, both eyes and all related structures Sclerae: sclerae normal EOM: EOMs intact bilaterally Neck Neck: Yes supple Lymphatic: no lymphadenopathy noted Resp Effort & Inspection: normal respiratory effort and no use of accessory muscles Auscultation: clear to auscultation bilaterally Cardio Rate: tachycardic Rhythm: abnormal rhythm irregularly irregular Heart sounds: no gallops, no murmurs and no rubs Skin General skin exam: other ( warm) Extrem General: No clubbing, No cyanosis and Yes edema (Trace bilateral) Assessment & Plan Assessment & Plan (1) BOURGEOIS (dyspnea on exertion): Code(s): R06.09 - Other forms of dyspnea Plan: Appears to mostly cardiac etiology, now secondary to somewhat suboptimally controlled AFib. Patient was advised to discuss AFib control with her metallurgical inspector, or obtain 2nd opinion. Lower extremity edema is reasonably well controlled on current regimen of Lasix 40 mg in the morning and 20 mg in the afternoon. Patient states that despite using trilogy she still derive symptomatic benefit from albuterol MDI. Will at through failing for 100. Patient was counseled about possible side effect of tachycardia and advised to contact our office if it worsens. Patient also was advised to discuss discontinue in her chronic prednisone with her primary care provider. (2) Orthopnea: Code(s): R06.01 - Orthopnea Plan: Now wounds significant orthopnea paroxysmal nocturnal dyspnea it appears to be related to suboptimally controlled AFib. Patient continues to work on obtaining metallurgical inspector chronic re-evaluation. Medications: New theophylline ER 400 mg PO DAILY 30 days 30 tabs 6RF Discontinued prednisone Discontinued Reason: Doctor's Order 40 mg (2 x 20 mg) PO DAILY 5 days 10 tabs 0RF Coding Level of Care Code Est Pt Level 4 (80979) Diagnoses BOURGEOIS (dyspnea on exertion) R06.09 Orthopnea R06.01
== END 2022-10-21 13:49 | disposition home or self-care (01) ==
PROVIDERS: PCP Internal Medicine; Visit Provider Internal Medicine Pulmonary Disease
DX: R06.09 Other forms of dyspnea (principal); R06.01 Orthopnea
CPT/HCPCS: 99214

== ENCOUNTER → 2022-10-21 13:06 | Outpatient (BNVA) | payer MEDICARE, SELFPAY | PROVIDERS: PCP Internal Medicine; Visit Provider Internal Medicine Pulmonary Disease | DX: R06.09 Other forms of dyspnea (principal); R06.01 Orthopnea; R60.0 Localized edema; Z79.899 Other long term (current) drug therapy | CPT/HCPCS: 99212 ==

== ENCOUNTER 2022-11-25 13:17 | Outpatient (AMB) | payer MEDICARE, SELFPAY ==
[2022-11-25 13:22] VITALS: BP 102/77; PULSE 100; O2SAT 98; BMI 25.2
--- NOTE | 2022-11-25 13:22 | A.OFFVIS_ITS ---
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 After the last office visit patient had 2nd opinion consultation with Cardiology in [place] and she was started on new rate control medication with plan for future cardioversion, now with improving dyspnea. She also started on theophylline with some symptomatic benefit. She denies any recent exacerbations. [facility] Medical History Anemia Asthma Atrial fibrillation, new onset Hypertension Hypertension Loculated pleural effusion MSSA bacteremia MILY (obstructive sleep apnea) Paroxysmal A-fib SOB (shortness of breath) UTI (urinary tract infection) Surgical History History of bunionectomy History of total left hip arthroplasty History of total replacement of right hip History of total right hip arthroplasty Left inguinal hernia S/P laparoscopic sleeve gastrectomy Social History Household Members: Family Household Members Other:: Danny Housing: House Do you presently have visiting nurse or other home services: No Alcohol intake: never Patient Tobacco Use Status: Former Tobacco user Quit Date: 1987 Tobacco use type: Cigarette Years Smoked: 16 years Second Hand Smoke Exposure: No service: No 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al status: retired 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 [employer] Systems Const Denies daytime sleepiness, Denies excessive sweating, Denies fatigue, Denies fever(s), Denies lethargy, Denies malaise, Denies night sweats, Denies snoring and Denies weight loss Eyes Denies blurry vision and Denies itchy eyes ENT Denies nasal congestion, Denies post nasal drip, Denies sinus pain, Denies sinus pressure and Denies other ( Thrush) Card Denies chest pain, Denies pedal edema, Denies dyspnea, Denies orthopnea and Denies paroxysmal nocturnal dyspnea Resp Denies cough, Denies hemoptysis, Denies excessive phlegm production, Denies dyspnea, Denies snoring and Denies wheezing GI Denies abdominal pain and Denies heartburn Musc Denies myalgias, Denies arthralgias and Denies joint swelling Skin/Breast Denies rash Neuro Denies memory loss and Denies seizure-like activity Psych Denies abnormal sleep pattern, Denies anxiety and Denies memory loss Endo Denies excessive sweating, Denies fatigue and Denies heat intolerance Micah/Lymph Denies easy bruising Aller/Immun Denies itchy eyes, Denies seasonal rhinorrhea and Denies wheezing Physical Exam Vital Signs: Last Vital Signs Pulse 100 11/25/22 13:22 BP 102/77 11/25/22 13:22 Pulse Ox 98 11/25/22 13:22 Oxygen Delivery Method Room Air 11/25/22 13:22 BMI result Body Mass Index 25.2 Const General: no acute distress and alert Nutritional Appearance: not obese Orientation/consciousness: Other orientation findings ( oriented) HEENT Head: Yes atraumatic Eyes General: appearance normal, both eyes and all related structures Sclerae: sclerae normal EOM: EOMs intact bilaterally Neck Neck: Yes supple Lymphatic: no lymphadenopathy noted Resp Effort & Inspection: normal respiratory effort and no use of accessory muscles Auscultation: clear to auscultation bilaterally Cardio Rate: regular rate Rhythm: regular rhythm Heart sounds: no gallops, no murmurs and no rubs Skin General skin exam: other ( warm) Extrem General: No clubbing, No cyanosis and No edema Assessment & Plan Assessment & Plan (1) BOURGEOIS (dyspnea on exertion): Code(s): R06.09 - Other forms of dyspnea Plan: Pulmonary component controlled on Trelegy, theophylline, and albuterol MDI. Continue current regimen. Coding Level of Care Code Est Pt Level 3 (49750) Diagnoses BOURGEOIS (dyspnea on exertion) R06.09
== END 2022-11-25 14:20 | disposition home or self-care (01) ==
PROVIDERS: PCP Internal Medicine; Visit Provider Internal Medicine Pulmonary Disease
DX: R06.09 Other forms of dyspnea (principal)
CPT/HCPCS: 99213

== ENCOUNTER → 2022-11-25 13:17 | Outpatient (BNVA) | payer MEDICARE, SELFPAY | PROVIDERS: PCP Internal Medicine; Visit Provider Internal Medicine Pulmonary Disease | DX: R06.09 Other forms of dyspnea (principal) | CPT/HCPCS: 99212 ==

== ENCOUNTER 2022-11-26 12:49 | Emergency (ER) | payer MEDICARE, SELFPAY ==
--- NOTE | ~2022-11-26 | CT_ITS ---
EXAMINATION: CT HEAD WITHOUT CONTRAST CT CERVICAL SPINE WITHOUT CONTRAST CLINICAL INFORMATION: Head strike on thinners. COMPARISON: CT scan of the head and cervical spine 05/24/2022. TECHNIQUE: Multidetector CT imaging of the head and cervical spine was performed without the use of intravenous contrast. Coronal and sagittal reformatted images were generated at the technologist workstation. This CT examination was performed using dose optimization techniques as appropriate, variously including the following: *Automated exposure control *Adjustment of mA and/or kV according to patient size (this includes techniques or standardized protocols for targeted exams where dose is matched to indication/reason for exam; i.e. extremities or head) *Use of iterative reconstruction technique DLP: 983 mGy-cm. FINDINGS: CT head: There is no evidence of acute intracranial hemorrhage or territorial infarction. No abnormal mass-effect or midline shift is seen. Fox to white matter differentiation is well preserved. No extra-axial fluid collections are identified. There is mild commensurate prominence of the ventricles and sulci consistent with diffuse volume loss. The study redemonstrates areas of low-attenuation in the periventricular and subcortical white matter, consistent with chronic microvascular ischemic changes. There are no acute osseous or soft tissue abnormalities. There have been bilateral lens extractions. The mastoid air cells and visualized portions of the paranasal sinuses are well-aerated. CT cervical spine: There is a mild dextroscoliosis. The study redemonstrates a mild anterolisthesis of C3 on C4. There is multilevel narrowing of intervertebral disc height which is most severe at C4-C5 and C5-C6, with degenerative endplate contour changes, erosions and sclerosis. Vertebral body heights are maintained, and no acute fractures are demonstrated. The lateral masses of C1 and C2 are normally aligned and the dens is intact. The atlantooccipital articulations are maintained. Overall, bone mineralization is diffusely decreased. There is multilevel facet arthropathy, most severe on the left. The prevertebral soft tissues appear normal. The visualized lung apices are well-aerated. CT/CT cervical spine wo IV con IMPRESSION: 1. There are no acute bleeds or territorial infarcts. No masses are demonstrated. 2. There are chronic microvascular ischemic changes and there is diffuse volume loss. 3. There are no acute fractures or subluxations in the cervical spine. There is multilevel spondylosis and facet arthropathy.
--- NOTE | ~2022-11-26 | XR_ITS ---
STUDY: Left shoulder, sacrum and coccyx INDICATION: Pain after fall COMPARISON: None TECHNIQUE: 4 view left shoulder, 3 view sacrum and coccyx FINDINGS: Left shoulder: Left shoulder replacement has been performed. Prosthetic components appear appropriate in position and alignment is satisfactory. Bones are demineralized. No fracture or dislocation. Acromioclavicular degenerative changes. Visualized ribs and lung are intact. Aortic calcifications. Sacrum and coccyx: Partial visualization of lower lumbar scoliosis. Lower lumbar degenerative changes. Left pedicle is obscured, other pedicles are unremarkable. SI joints within normal limits. No fracture or dislocation. Mild sclerotic changes symphysis pubis. Near-total obliteration left hip joint. Pessary and phleboliths. XR/XR shoulder LT min 2V IMPRESSION: No acute bony pathology left shoulder and sacrum and coccyx. Left shoulder replacement. Advanced degenerative change left hip.
--- NOTE | ~2022-11-26 | XR_ITS ---
STUDY: Left shoulder, sacrum and coccyx INDICATION: Pain after fall COMPARISON: None TECHNIQUE: 4 view left shoulder, 3 view sacrum and coccyx FINDINGS: Left shoulder: Left shoulder replacement has been performed. Prosthetic components appear appropriate in position and alignment is satisfactory. Bones are demineralized. No fracture or dislocation. Acromioclavicular degenerative changes. Visualized ribs and lung are intact. Aortic calcifications. Sacrum and coccyx: Partial visualization of lower lumbar scoliosis. Lower lumbar degenerative changes. Left pedicle is obscured, other pedicles are unremarkable. SI joints within normal limits. No fracture or dislocation. Mild sclerotic changes symphysis pubis. Near-total obliteration left hip joint. Pessary and phleboliths. XR/XR sacrum coccyx min 2V IMPRESSION: No acute bony pathology left shoulder and sacrum and coccyx. Left shoulder replacement. Advanced degenerative change left hip.
[2022-11-26 12:56] VITALS: BP 127/87; PULSE 87; RESP 17; TEMP 36.2; O2SAT 97; BMI 25.6
--- NOTE | 2022-11-26 13:01 | ED_ITS ---
HPI - Fall General Chief Complaint: Fall Stated Complaint: fall 11/26/ head laceration Time Seen by Provider: 11/26/22 16:00 Source: patient, family, RN notes reviewed and old records reviewed Mode of arrival: wheelchair Limitations: no limitations History of Present Illness HPI Narrative: 72 year old female with pmhx significant for atrial fibrilation on Eliquis, MSSA pneumonia, constipation, and UTI presents to the ED for evaluation of mechanical fall today. Admits to losing her balance while stepping out of the bathtub 1hr [employer]. She reports falling back, landing on her buttocks, and hitting the back of her head on the floor. Denies LOC. On AC for afib. Able to stand and ambulate with some discomfort after fall. She states there is a laceration on the back of her head that bled for some time. Bleeding has been controlled. Her only complaint at present is buttock pain. Denies headache, dizziness, vision changes, abdominal pain, N/V, numbness/tingling/weakness of extremities, bowel/bladder incontinence or retention, or saddle paresthesias. Related Data Home Medications Medication Instructions Recorded Confirmed pantoprazole 40 mg tablet,delayed 40 mg PO DAILY 01/10/20 07/12/22 release bupropion HCl 200 mg tablet,12 hr 200 mg PO BID@0900,1300 01/11/20 07/12/22 sustained-release (Wellbutrin SR) lamotrigine 200 mg tablet 200 mg PO DAILY 12/05/20 07/12/22 montelukast 10 mg tablet 10 mg PO DAILY 12/05/20 07/12/22 oxybutynin chloride 10 mg 10 mg PO DAILY 12/05/20 07/12/22 tablet,extended release 24 hr diltiazem HCl 360 mg 360 mg PO DAILY 05/28/22 07/12/22 capsule,extended release 24 hr lamotrigine 100 mg tablet 100 mg PO BEDTIME 05/28/22 07/13/22 fluticasone propionate 50 1 spray intranasal BID PRN Allergy 06/10/22 07/12/22 mcg/actuation nasal Symptoms spray,suspension loratadine 10 mg tablet (Claritin) 10 mg PO DAILY PRN Allergy Symptoms 07/13/22 07/13/22 Previous Rx's Medication Instructions Recorded digoxin 125 mcg (0.125 mg) tablet 0.125 mg PO DAILY #30 tabs 09/11/21 apixaban 5 mg tablet (Eliquis) 5 mg PO BID #60 tabs 09/12/21 albuterol sulfate 90 mcg/actuation 2 puff inhalation Q4-6H PRN 05/05/22 aerosol inhaler (ProAir HFA) shortness of breath or wheezing #8.5 grams furosemide 40 mg tablet 40 mg PO QAM 90 days #90 tabs 09/15/22 theophylline 400 mg 400 mg PO DAILY 30 days #30 tabs 10/21/22 tablet,extended release 24 hr furosemide 20 mg tablet 20 mg PO QPM #30 tabs 11/20/22 fluticasone fur. 200 mcg-umeclid 1 ea inhalation DAILY #60 ea 11/24/22 62.5 mcg-vilant 25 mcg inhalat.powder (Trelegy Ellipta) Allergies Allergy/AdvReac Type Severity Reaction Status Date / Time No Known Allergies Allergy Verified 11/25/22 13:29 [No Known Allergies*] Review of Systems 2 Review of Systems: Constitutional: No fever, chills, fatigue, night sweats, weight changes ENT/Mouth: No ear pain, hearing loss, nasal congestion, sinus pain, rhinorrhea, sore throat Eyes: No eye pain, swelling, redness, vision changes, discharge Cardio: No chest pain, palpitations, BOURGEOIS, orthopnea, peripheral edema Pulm: No SOB, cough, sputum, wheezing, dyspnea, hemoptysis GI: No nausea, vomiting, hematemesis, abdominal pain, diarrhea, constipation, hematochezia, melena : No irregular bleeding, dysuria, frequency, urgency, hesitancy, hematuria, flank pain, urinary flow changes, urinary incontinence or retention MSK: No back pain, neck pain, joint pain, myalgias, +tailbone pain Skin: No lesions, rashes Neuro: No weakness, numbness, paresthesias, LOC, dizziness, headache All other systems reviewed and are negative. [facility] Past Medical History Attestation statement: The following information was validated with the patient. Source: old records reviewed and nursing notes reviewed Medical History Anemia Asthma Atrial fibrillation, new onset Hypertension Hypertension Loculated pleural effusion MSSA bacteremia MILY (obstructive sleep apnea) Paroxysmal A-fib SOB (shortness of breath) UTI (urinary tract infection) Surgical History History of bunionectomy History of total left hip arthroplasty History of total replacement of right hip History of total right hip arthroplasty Left inguinal hernia S/P laparoscopic sleeve gastrectomy Social History Social History Household Members: Family Household Members Other:: Danny Housing: House Do you presently have visiting nurse or other home services: No Alcohol intake: never Patient Tobacco Use Status: Former Tobacco user Quit Date: 1987 Tobacco use type: Cigarette Years Smoked: 16 years Smoked in Last 30 Days: No Second Hand Smoke Exposure: No Advance Directives: No Advance Directives Information Provided: Yes service: No 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al status: retired 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: Right Handed Physical Exam 2 Vital Signs: Vital Signs: Last Vital Signs Temp 97.0 F 11/26/22 17:28 Pulse 77 11/26/22 17:28 Resp 16 11/26/22 17:28 BP 130/77 11/26/22 17:28 Pulse Ox 98 11/26/22 17:28 O2 Del Method Room Air 11/26/22 17:28 BMI result Body Mass Index 25.6 VSS. Const: General: cooperative, no acute distress, alert and awake O rientation/consciousness: patient oriented x3 Limitations: no limitations HEENT: Head: Yes normal to inspection, Yes No palpable skull fracture present, No Middleton's sign, No hematoma, Yes laceration, No raccoon eyes and No periorbital ecchymosis Head images: 1. 1 cm superficial linear laceration Ears: hearing grossly normal bilaterally General nose exam: Normal external nose present Eyes: Other: + EOMs intact without intrapment. General: appearance normal, both eyes and all related structures C onjunctivae: conjunctivae normal Sclerae: sclerae normal Pupils: Equal, round and reactive pupils present Neck: Neck: Yes normal visual inspection and Yes full ROM Chest: Chest palpation & inspection: normal inspection of the chest, normal palpation of entire chest wall, no crepitus and no tenderness Resp: Effort & Inspection: normal respiratory effort, able to speak in complete sentences and symmetric chest movement Auscultation: clear to auscultation bilaterally Cardio: Rate: regular rate Rhythm: regular rhythm Peripheral pulses: r adial pulses present, posterior tibial pulses present and dorsalis pedis present GI: Inspection: No abdominal wall ecchymosis Palpation (GI): Soft to palpation and nontender Back/Spine/Pelvis: Other: + No midline spinous tenderness. No para spinal muscle tenderness to palpation. No step off deformity. Back: No Fox-Garcia sign present Skin: General skin exam: no rashes or lesions noted Neuro: Other: Strength 5/5 intact throughout.? No saddle anesthesia.? Sensation intact to light touch.? NV intact distally.? General: patient oriented x3, gait normal and moves all extremities C ranial nerves: Yes CN's II-XII intact bilaterally and Yes Equal, round and reactive pupils present Gait exam (Neuro): Normal gait present C oordination: [id number] test normal, [id number] test normal and Normal rapid alternating movements of the distal upper extremity present (Neuro) Extrem: General: Yes normal to inspection, Yes full ROM, Yes capillary refill normal and Yes no clubbing, cyanosis or edema Course Course Course Narrative: RME - 72 y/o female with history of afib on Eliquis, MSSA PNA, constipation, UTI who presents to the ER for evaluation of a mechanical fall today. She slipped while getting out of the tub, fell hit her back of her head and her backside. Reports tailbone pain, difficulty walking since. No headache or neck pain. +Lac to the occiput Plan: lac repair. CT head/cervical spine, XR coccyx, XR shoulder, basic labs Reevaluation(s) Reevaluation #1: CBC with mild leukocytosis to 11.7 without left shift. Chronically anemic appearing to be patient?s baseline when compared to priors. INR elevated secondary to anticoagulation. Chemistry without acute electrolyte abnormality requiring intervention. Posterior head laceration repaired with 3 tisha. Hemostasis achieved. Patient tolerated lac repair well. Discussed unremarkable lab and imaging results with patient. There is no concern for acute intracranial bleed or cervical spine/ shoulder/ or coccyx fracture/ pathology. Patient is able to ambulate with some discomfort. Her vital signs are stable. I discussed return precautions. All questions answered at this time. Patient agreeable with disposition and stable for discharge. Medications Administered Discontinued Medications Generic Name Dose Route Start Last Admin Trade Name Freq PRN Reason Stop Dose Admin Lidocaine HCl 5 ml 11/26/22 17:02 11/26/22 17:55 Lidocaine Hcl 1 % Mpf 5 Ml Vial SUBCUT 11/26/22 17:03 5 ml ONCE ONE Administration Procedures Laceration Laceration 1: Site: scalp Size (cm): 1 Description: linear Depth: simple, single layer Pre-repair: irrigated extensively Technique: other (3 TISHA) Medical Decision Making Medical Decision Making [facility] Narrative: 72 year old female with pmhx significant for atrial fibrilation on Eliquis, MSSA pneumonia, constipation, and UTI presents to the ED for evaluation of mehanical fall today. Vital signs are stable. Patient is nontoxic appearing and in NAD. There is a 1 cm linear superficial laceration to her posterior head. No active bleeding. Exam nonfocal. Cerebellum intact. PERRLA. EOMs intact without intrapment. RRR. Lungs CTA b/l. Pelvis stable. No midline spinous or paraspinal mm tenderness. No step off deformity. Ambulating with steady gait. Clinical concern for scalp laceration, skull fracture, headache, concussion, ICH, subdural or epidural hematoma, cervical sprain/ strain vs fracture, shoulder fracture vs dislocation, coccyx fracture. Labs and imaging obtained in triage. Plan to review results and re-evaluate patient. Differential Diagnosis Differential Diagnoses: The differential diagnosis associated with the presentation includes As above. Admission/Observation Not indicated. Lab Data [facility] Lab Attestation statement: I reviewed the patient's lab results. As above. 11/26/22 14:44 11/26/22 14:44 Labs: Lab Results 11/26/22 Range/Units 14:44 WBC 11.7 H (4.8-10.8) X10*3/uL RBC 4.53 (4.20-5.50) X10*6/uL Hgb 11.0 L (12.0-16.0) g/dl Hct 36.0 L (37.0-47.0) % MCV 79.5 L (80.0-98.0) fL MCH 24.3 L (27.0-33.0) pg MCHC 30.6 L (31.0-35.0) g/dl RDW 16.1 H (11.0-16.0) % Plt Count 349 (160-400) X10*3/uL MPV 9.8 (9.4-12.3) fL Immature Gran % (Auto) 1.0 H (0.0-0.4) % Neut % (Auto) 74.9 H (45-73) % Lymph % (Auto) 14.7 L (20-40) % Bollinger % (Auto) 6.4 (2-11) % Eos % (Auto) 2.3 (0-4) % Baso % (Auto) 0.7 (0-2) % Lymph # (Auto) 1.7 (1.2-4.9) X10*3/uL Bollinger # (Auto) 0.8 (0.1-1.2) X10*3/uL Eos # (Auto) 0.3 (0.0-0.4) X10*3/uL Baso # (Auto) 0.1 (0.0-0.2) X10*3/uL Abs Immat Gran (auto) 0.12 H (0.00-0.03) X10*3/uL Absolute Neuts (auto) 8.8 H (2.0-8.3) x10*3/uL Absolute Nucleated RBC 0.000 (0.0-0.012) X10*3/uL Nucleated RBC % (auto) 0.0 (0.0-0.2) /100WBC PT 20.2 H (11.1-13.3) SEC INR 1.7 H (0.9-1.1) APTT 43.1 H (26.0-36.4) SEC Sodium 142 (135-145) mmol/L Potassium 3.5 (3.3-5.1) mmol/L Chloride 102 (96-108) mmol/L Carbon Dioxide 28 (22-29) mmol/L Anion Gap 16 (12-20) BUN 22 H (9-16) mg/dL Creatinine 0.86 (0.5-1.4) mg/dL Estim Creat Clear Calc 51.8 Estimated GFR > 60 Random Glucose 85 (60-115) mg/dL Calcium 10.3 H D (8.4-10.2) mg/dL Magnesium 2.3 (1.6-2.6) mg/dL Total Bilirubin 0.2 (0.0-1.0) mg/dL Direct Bilirubin < 0.2 (0.0-0.5) mg/dL AST 25 (5-31) U/L ALT 20 (0-31) U/L Alkaline Phosphatase 115 (39-117) U/L Total Protein 7.5 (6.5-8.0) g/dL Albumin 4.0 (3.5-5.0) g/dL Independent Interpretation I performed an independent interpretation of an: CT Scan Interpretation: CT head/brain without acute bleed, agree with radiologist's interpretation. CT cervical spine without acute fracture, agree with radiologist's interpretation. XRAY left shoulder without fracture or dislocation, agree with radiologist's interpretation. XRAY coccyx without fracture, agree with radiologist's interpretation. Radiology Impression Discussion of test interpretation with radiology: I have reviewed the radiologist's reading. Radiologist Impression: CT cervical spine wo IV con IMPRESSION: 1. There are no acute bleeds or territorial infarcts. No masses are demonstrated. 2. There are chronic microvascular ischemic changes and there is diffuse volume loss. 3. There are no acute fractures or subluxations in the cervical spine. There is multilevel spondylosis and facet arthropathy. XR sacrum coccyx min 2V IMPRESSION: No acute bony pathology left shoulder and sacrum and coccyx.? Left shoulder replacement. Advanced degenerative change left hip. XR shoulder LT min 2V IMPRESSION: No acute bony pathology left shoulder and sacrum and coccyx.? Left shoulder replacement. Advanced degenerative change left hip. External Record Review External record reviewed: Inpatient record Prescription Management I considered prescription management with: Pain Medication Chronic Conditions Patient?s care impacted by: Other (afib) Social Determinants Patient?s care significantly limited by Social Determinants of Health including: Other Social Determinant of Health Critical Care Time Critical Care Time Critical Care Time: No Discharge Plan Discharge Clinical Impression: Accident due to mechanical fall without injury Laceration of scalp Qualifiers: Encounter type: initial encounter Qualified Code(s): S01.01XA - Laceration without foreign body of scalp, initial encounter Patient Disposition: Home, Self-Care Instructions: Laceration (ED), Staple Care (ED) Additional Instructions: Your labs today were reassuring. The CT of your head did not show acute bleed. The CT of your cervical spine did not show acute fracture. The x-rays of your sacrum/ coccyx and left shoulder did not show any fracture, however do so show some degenerative changes. The laceration on your scalp was closed with tisha today. Do not wet the area for at least 24-48 hours. Keep the tisha in for 7-10 days and return to the emergency department for removal. You may take Tylenol as needed for pain/ discomfort. If you develops symptoms headache, nausea vomiting or neurologic changes please return emergency department The case of an emergency call 911. Prescriptions: No Action albuterol sulfate [ProAir HFA] 90 mcg/actuation HFA aerosol inhaler 2 puff inhalation Q4-6H PRN (Reason: shortness of breath or wheezing) Qty: 8.5 6RF furosemide 40 mg tablet 40 mg PO QAM 90 Days Qty: 90 3RF furosemide 20 mg tablet 20 mg PO QPM Qty: 30 0RF Trelegy Ellipta 200-62.5-25 mcg blister with device 1 ea inhalation DAILY Qty: 60 6RF digoxin 125 mcg (0.125 mg) Tablet 0.125 mg PO DAILY Qty: 30 0RF Eliquis 5 mg Tablet 5 mg PO BID Qty: 60 0RF fluticasone propionate 50 mcg/actuation spray,suspension 1 spray intranasal BID PRN (Reason: Allergy Symptoms) loratadine [Claritin] 10 mg Tablet 10 mg PO DAILY PRN (Reason: Allergy Symptoms) diltiazem HCl 360 mg capsule,extended release 24hr 360 mg PO DAILY lamotrigine 100 mg tablet 100 mg PO BEDTIME pantoprazole 40 mg tablet,delayed release (DR/EC) 40 mg PO DAILY bupropion HCl [Wellbutrin SR] 200 mg tablet sustained-release 12 hr 200 mg PO BID@0900,1300 montelukast 10 mg tablet 10 mg PO DAILY lamotrigine 200 mg tablet 200 mg PO DAILY oxybutynin chloride 10 mg tablet extended release 24hr 10 mg PO DAILY theophylline 400 mg tablet extended release 24 hr 400 mg PO DAILY 30 Days Qty: 30 6RF Referrals: Eddie Messina MD [Primary Care Provider] - Interventions: ED Discharge Assessment Last Done: 11/26/22 18:03 Discharge Date/Time: 11/26/22 18:03
[2022-11-26 14:48] LABS: MANUAL DIFF FLAG NO
[2022-11-26 14:50] LABS: Basophils Absolute Auto 0.1 X10*3/uL (0.0-0.2); Basophils Percent Auto 0.7 % (0-2); Eosinophils Absolute Auto 0.3 X10*3/uL (0.0-0.4); Eosinophils Percent Auto 2.3 % (0-4); Imm Gran Abs Auto 0.12 X10*3/uL (0.00-0.03); Lymphocytes Absolute Auto 1.7 X10*3/uL (1.2-4.9); Lymphocytes Percent Auto 14.7 % (20-40); Mean Corpuscular HGB Conc 30.6 g/dl (31.0-35.0); Mean Corpuscular Hemoglobin 24.3 pg (27.0-33.0); Mean Corpuscular Volume 79.5 fL (80.0-98.0); Mean Platelet Volume 9.8 fL (9.4-12.3); Monocytes Absolute Auto 0.8 X10*3/uL (0.1-1.2); Monocytes Percent Auto 6.4 % (2-11); Neutrophils Absolute Auto 8.8 x10*3/uL (2.0-8.3); Neutrophils Percent Auto 74.9 % (45-73); Platelet Count 349 X10*3/uL (160-400); Red Blood Count 4.53 X10*6/uL (4.20-5.50); Red Cell Distribution Width 16.1 % (11.0-16.0); White Blood Count 11.7 X10*3/uL (4.8-10.8)
[2022-11-26 14:59] LABS: INTERNATIONAL NORM RATIO 1.7 (0.9-1.1); Prothrombin Time 20.2 SEC (11.1-13.3)
[2022-11-26 15:02] LABS: Partial Thromboplastin Time 43.1 SEC (26.0-36.4)
[2022-11-26 15:03] LABS: Alanine Aminotransferase 20 U/L (0-31); Alkaline Phosphatase 115 U/L (39-117); Anion Gap 16 (12-20); Aspartate Amino Transferase 25 U/L (5-31); Bilirubin Direct < 0.2 mg/dL (0.0-0.5); Bilirubin Total 0.2 mg/dL (0.0-1.0); Blood Urea Nitrogen 22 mg/dL (9-16); Calcium 10.3 mg/dL (8.4-10.2); Carbon Dioxide 28 mmol/L (22-29); Chloride 102 mmol/L (96-108); Creatinine Clr Calc Pharmacy 51.8; Estimated Glomerular Filt Rate > 60; Glucose Random 85 mg/dL (60-115); Magnesium 2.3 mg/dL (1.6-2.6); Potassium 3.5 mmol/L (3.3-5.1); Sodium 142 mmol/L (135-145); Total Protein 7.5 g/dL (6.5-8.0)
[2022-11-26 17:28] VITALS: BP 130/77; PULSE 77; RESP 16; TEMP 36.1; O2SAT 98
[2022-11-26] MEDS: Lidocaine HCl 1 % MPF 5 ML VIAL SUBCUT (17:55)
== END 2022-11-26 18:03 | disposition home or self-care (01) ==
PROVIDERS: Physician Assistant; Emergency Provider Student in an Organized Health Care Education/Training Program; PCP Internal Medicine
DX: S01.01XA Laceration without foreign body of scalp, initial encounter (principal); I48.91 Unspecified atrial fibrillation; R51.9 Headache, unspecified; M54.2 Cervicalgia; M25.512 Pain in left shoulder; M54.50 Low back pain, unspecified; M53.3 Sacrococcygeal disorders, not elsewhere classified; W01.10XA Fall on same level from slipping, tripping and stumbling with subsequent striking against unspecified object, initial encounter; Y93.9 Activity, unspecified; Y92.002 Bathroom of unspecified non-institutional (private) residence as the place of occurrence of the external cause; Y99.9 Unspecified external cause status; Z79.899 Other long term (current) drug therapy; Z79.01 Long term (current) use of anticoagulants; Z87.891 Personal history of nicotine dependence
CPT/HCPCS: 12001; 36415; 70450; 72125; 72220; 73030; 80048; 80076; 83735; 85025; 85610; 85730; 99284

== ENCOUNTER 2022-11-28 12:14 | Emergency (ER) | payer MEDICARE, SELFPAY ==
--- NOTE | ~2022-11-28 | CT_ITS ---
EXAMINATION: CT HEAD WITHOUT CONTRAST CT CERVICAL SPINE WITHOUT CONTRAST CLINICAL INFORMATION: Garbled speech. Lightheadedness. COMPARISON: CT scan of the head and cervical spine 11/26/2022. TECHNIQUE: Hot Punch Press Operator images were obtained. CT imaging of the head and cervical spine was performed without contrast. Data was reformatted into multiplanar images at the acquisition workstation. This CT examination was performed using dose optimization techniques as appropriate, including one or more of the following: Automated exposure control, iterative reconstruction, and adjustment of technique factors (mA and/or kVp) according to patient size (this includes techniques or standardized protocols for targeted exams where dose is matched to indication/reason for exam). Fleischner Society criteria for the followup of incidental pulmonary nodules was implemented if appropriate. DLP: 984 mGy-cm. FINDINGS: Head: There is no acute intracranial hemorrhage or abnormal extra axial collection. No intracranial mass effect or midline shift. Lateral and third ventricles are proportionate to the subarachnoid spaces. No hydrocephalus. There are scattered nonspecific foci of hypoattenuation within the periventricular white matter that most likely represent a chronic manifestation of small vessel ischemia. Fox-white matter projection is otherwise preserved and there is no evidence of acute territorial infarct. The calvarium and skull base are intact. Mastoid air cells and middle ear cavities are well aerated. No active paranasal sinus disease. There are a a few metallic skin tisha are visualized within the scalp near the vertex. Cervical spine: There is slight anterolisthesis of C3 on C4. Alignment is otherwise normal. Vertebral heights are preserved. No acute cervical spine fracture. No abnormal prevertebral soft tissues swelling. There is loss of intervertebral disc height with associated sclerotic degenerative endplate changes and hypertrophic disc osteophyte spurring at multiple levels. Canal patency is not well assessed on this examination due to inherent limitations of CT without intrathecal contrast. There is at least moderate canal stenosis at C4-C5, C5-C6, and C6-C7. Uncovertebral joint spurring in conjunction with facet degenerative change causes varying degrees of neuroforaminal encroachment at multiple levels. Visualized soft tissues of the neck are unremarkable. Pleural-parenchymal scarring is visualized at the apices of both lungs. CT/CT cervical spine wo IV con IMPRESSION: Head: There are a few retained metallic skin tisha within the scalp near the vertex. Otherwise unremarkable examination. No evidence of acute territorial infarct or hemorrhage. Cervical spine: No evidence of acute cervical spine fracture. There is advanced multilevel degenerative spondylosis of the cervical spine with at least moderate canal stenosis at multiple levels. If there are clinical symptoms of compressive myelopathy then a dedicated cervical spine MRI can be obtained for better anatomic characterization of the cord and canal.
--- NOTE | 2022-11-28 12:18 | ED_ITS ---
HPI - General Adult General Chief complaint: Dizziness Stated complaint: dizziness, hard to walk, speech prob Time Seen by Provider: 11/28/22 17:36 Source: patient and family (patient's ) Mode of arrival: wheelchair Limitations: no limitations History of Present Illness HPI narrative: Patient is a 72 year old assigned female at with a history of a gastric sleeve presenting to the emergency department today with garbled speech and lightheadedness. Patient states that she was seen here 2 days ago after a fall and had tisha placed. Patient states that today she had a brief episode of garbled speech and has been feeling lightheaded. Patient denies any dizziness, abdominal pain, nausea, vomiting, fever, chills, blurry vision, double vision, loss of vision, chest pain, difficulty breathing, shortness of breath, back pain, night sweats, pain with urination, increased urinary frequency, increased urinary urgency, blood in her urine or stool, syncope or a near syncopal episode, bowel incontinence, bladder incontinence, bowel retention, bladder retention, or any other complaints at this time. Onset (ago): hour(s) Severity: mild Relieving factors: none Exacerbating factors: none Associated symptoms: denies other symptoms Treatments prior to arrival: none Related Data Home Medications Medication Instructions Recorded Confirmed pantoprazole 40 mg tablet,delayed 40 mg PO DAILY 01/10/20 07/12/22 release bupropion HCl 200 mg tablet,12 hr 200 mg PO BID@0900,1300 01/11/20 07/12/22 sustained-release (Wellbutrin SR) lamotrigine 200 mg tablet 200 mg PO DAILY 12/05/20 07/12/22 montelukast 10 mg tablet 10 mg PO DAILY 12/05/20 07/12/22 oxybutynin chloride 10 mg 10 mg PO DAILY 12/05/20 07/12/22 tablet,extended release 24 hr diltiazem HCl 360 mg 360 mg PO DAILY 05/28/22 07/12/22 capsule,extended release 24 hr lamotrigine 100 mg tablet 100 mg PO BEDTIME 05/28/22 07/13/22 fluticasone propionate 50 1 spray intranasal BID PRN Allergy 06/10/22 07/12/22 mcg/actuation nasal Symptoms spray,suspension loratadine 10 mg tablet (Claritin) 10 mg PO DAILY PRN Allergy Symptoms 07/13/22 07/13/22 Previous Rx's Medication Instructions Recorded digoxin 125 mcg (0.125 mg) tablet 0.125 mg PO DAILY #30 tabs 09/11/21 apixaban 5 mg tablet (Eliquis) 5 mg PO BID #60 tabs 09/12/21 albuterol sulfate 90 mcg/actuation 2 puff inhalation Q4-6H PRN 05/05/22 aerosol inhaler (ProAir HFA) shortness of breath or wheezing #8.5 grams furosemide 40 mg tablet 40 mg PO QAM 90 days #90 tabs 09/15/22 theophylline 400 mg 400 mg PO DAILY 30 days #30 tabs 10/21/22 tablet,extended release 24 hr furosemide 20 mg tablet 20 mg PO QPM #30 tabs 11/20/22 fluticasone fur. 200 mcg-umeclid 1 ea inhalation DAILY #60 ea 11/24/22 62.5 mcg-vilant 25 mcg inhalat.powder (Trelegy Ellipta) cefuroxime axetil 250 mg tablet 250 mg PO BID 7 days #14 tabs 11/28/22 Allergies Allergy/AdvReac Type Severity Reaction Status Date / Time No Known Allergies Allergy Verified 11/28/22 12:20 [No Known Allergies*] Review of Systems 2 Constitutional: Constitutional: Reports no additional constitutional complaints, Denies chills, Denies fever(s) and Denies night sweats Comments: lightheadedness Eyes: Eyes: Reports no additional eye complaints, Denies blurry vision, Denies change in vision, Denies diplopia, Denies eye discharge, Denies loss of vision and Denies eye pain ENT: Denies dizziness Cardiovascular: Cardiovascular: Reports no additional cardiovascular complaints, Denies chest pain, Denies lightheadedness, Denies Loss of Consciousness and Denies dyspnea Respiratory: Respiratory: Reports no additional respiratory complaints and Denies dyspnea Gastrointestinal: Gastrointestinal: Reports no additional gastrointestinal complaints, Denies abdominal pain, Denies melena, Denies hematochezia, Denies change in bowel habits and Denies change in stool character Genitourinary: Genitourinary: Denies hematuria, Denies urinary frequency, Denies dysuria, Denies urinary incontinence, Denies urinary hesitancy and Denies urinary urgency Musculoskeletal: Musculoskeletal: Reports no additional musculoskeletal complaints, Denies numbness and Denies tingling Neurologic: Denies dizziness, Denies loss of vision, Denies numbness and Denies tingling Comments: garbled speech Psychiatric: Psychiatric: Reports no additional psychiatric complaints Endocrine: Endocrine: Reports no additional endocrine complaints Hematologic/Lymphatic: Hematologic/Lymphatic: Reports no additional hematologic/lymphatic complaints Allergic/Immunologic: Allergic/Immunologic: Reports no additional allergic/immunologic complaints PMFSH Past Medical History Attestation statement: The following information was validated with the patient. (all information validated with the patient's ) Source: old records reviewed, obtained from family (patient's provided additional history and confirmed the history provided by the patient. ) and nursing notes reviewed Medical History Cough Orthopnea Post covid-19 condition, unspecified Constipation Overweight (BMI 25.0-29.9) Malabsorption due to intolerance, not elsewhere classified Paroxysmal A-fib MILY (obstructive sleep apnea) SOB (shortness of breath) Hypertension Anemia Loculated pleural effusion MSSA bacteremia Atrial fibrillation, new onset UTI (urinary tract infection) Hypertension Asthma Surgical History (Updated 11/28/22 @ 18:50 by ANIYA Barajas) Status post total hip replacement, right History of total replacement of right hip History of bunionectomy Left inguinal hernia History of total right hip arthroplasty History of total left hip arthroplasty S/P laparoscopic sleeve gastrectomy Social History Social History Household Members: Family Household Members Other:: Danny Housing: House Do you presently have visiting nurse or other home services: No Alcohol intake: never Patient Tobacco Use Status: Former Tobacco user Quit Date: 1987 Tobacco use type: Cigarette Years Smoked: 16 years Second Hand Smoke Exposure: No Advance Directives: No Advance Directives Information Provided: No service: No 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al status: retired 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: Right Handed Physical Exam ED Vital Signs: Vital Signs - 24 hr 11/28/22 12:20 Temperature 98 F Pulse Rate 70 Respiratory Rate 18 Blood Pressure 139/61 Pulse Oximetry 98 Oxygen Delivery Method Room Air BMI result Body Mass Index 25.6 Const General: cooperative, no acute distress, alert and awake Nutritional Appearance: well nourished Orientation/consciousness: patient oriented x3 Limitations: no limitations HENMT Other: tisha in place Ears: hearing grossly normal bilaterally and external ears normal General nose exam: Normal external nose present, no nasal discharge noted and no epistaxis Face and sinus: Yes normal facial exam, No abrasion and No laceration Mouth: Normal oral and palatal mucosa present, no drooling and no muffled voice Eyes General: appearance normal, both eyes and all related structures Periorbital: periorbital findings normal Eyelids: Yes eyelids normal Conjunctivae: conjunctivae normal Pupils: Equal, round and reactive pupils present EOM: EOMs intact bilaterally Neck Neck: Yes normal visual inspection, Yes full ROM and Yes no lymphadenopathy Chest Chest palpation & inspection: normal inspection of the chest Resp Effort & Inspection: normal respiratory effort and able to speak in complete sentences GI Inspection: Yes normal to inspection Neuro General: patient oriented x3 and moves all extremities Cranial nerves: Yes Equal, round and reactive pupils present Cognition (Neuro): normal cognition Motor exam (neuro): 5/5 motor strength present throughout Sensory Exam: Normal double simultaneous stimulation for sensation Coordination: [id number] test normal Extrem General: Yes normal to inspection, Yes full ROM and Yes capillary refill normal Psych Appearance: grossly normal Mental Status: mental status grossly normal Affect: normal affect Attitude: cooperative Thought process: Normal thought process present Thought content: Normal thought content present Insight: Good insight present (Psych) Course Course Course Narrative: RME performed by Nicole Bunn PA-C. Patient is a 72 year old assigned female at presenting to the emergency department with garbled speech and feeling more unbalanced. Patient was seen 2 days ago for mechanical fall. Labs and imaging ordered. Patient placed back in the waiting room pending room availability and results. Medical Decision Making Medical Decision Making MDM Narrative: Patient is a 72 year old assigned female at with a history of recent fall and gastric sleeve presenting to the emergency department today with lightheadedness and garbled speech. Patient's physical exam was unremarkable. Patient's blood work was unremarkable. Patient's urine showed an acute infection. Patient's head and c-spine CTs showed no acute process. I explained my physical exam findings as well as all test results to the patient and the patient's . I answered all questions asked by the patient and the patient's . I stressed the importance of the patient taking her medication as prescribed. I stressed the importance of the patient following up with her primary care provider. I stressed the importance of the patient returning to the emergency department immediately if her symptoms were to worsen or if she were to develop any dizziness, shortness of breath, difficulty breathing, chest pain, blurry vision, loss of vision, nausea, vomiting, abdominal pain, fever, chills, back pain, or any other complaints. Patient and the patient's verbalized agreement and understanding with this treatment plan and discharge. Differential Diagnosis Differential Diagnoses: The differential diagnosis associated with the presentation includes UTI CVA Head injury Admission/Observation Consideration of admission/observation: Escalation of care including admission/observation considered Patient would have been admitted to the hospital had her work up had any findings where hospital admission was appropriate and her clinical presentation warranted hospital admission. Lab Data [facility] Lab Attestation statement: I reviewed the patient's lab results. My interpretation of these results are in the [facility] Rationale portion of this note. 11/28/22 12:49 11/28/22 12:49 Labs: Lab Results 11/28/22 11/28/22 Range/Units 12:49 16:31 WBC 11.3 H (4.8-10.8) X10*3/uL RBC 4.71 (4.20-5.50) X10*6/uL Hgb 11.2 L (12.0-16.0) g/dl Hct 37.4 (37.0-47.0) % MCV 79.4 L (80.0-98.0) fL MCH 23.8 L (27.0-33.0) pg MCHC 29.9 L (31.0-35.0) g/dl RDW 16.1 H (11.0-16.0) % Plt Count 337 (160-400) X10*3/uL MPV 9.9 (9.4-12.3) fL Immature Gran % (Auto) 0.7 H (0.0-0.4) % Neut % (Auto) 78.6 H (45-73) % Lymph % (Auto) 11.6 L (20-40) % [place] % (Auto) 6.1 (2-11) % Eos % (Auto) 2.5 (0-4) % Baso % (Auto) 0.5 (0-2) % Lymph # (Auto) 1.3 (1.2-4.9) X10*3/uL [place] # (Auto) 0.7 (0.1-1.2) X10*3/uL Eos # (Auto) 0.3 (0.0-0.4) X10*3/uL Baso # (Auto) 0.1 (0.0-0.2) X10*3/uL Abs Immat Gran (auto) 0.08 H (0.00-0.03) X10*3/uL Absolute Neuts (auto) 8.9 H (2.0-8.3) x10*3/uL Absolute Nucleated RBC 0.000 (0.0-0.012) X10*3/uL Nucleated RBC % (auto) 0.0 (0.0-0.2) /100WBC ESR 34 H (0-20) MM/HR Sodium 139 (135-145) mmol/L Potassium 3.5 (3.3-5.1) mmol/L Chloride 102 (96-108) mmol/L Carbon Dioxide 24 (22-29) mmol/L Anion Gap 17 (12-20) BUN 20 H (9-16) mg/dL Creatinine 0.84 (0.5-1.4) mg/dL Estim Creat Clear Calc 53.0 Estimated GFR > 60 Random Glucose 71 (60-115) mg/dL Calcium 10.1 (8.4-10.2) mg/dL Total Bilirubin 0.3 (0.0-1.0) mg/dL AST 21 (5-31) U/L ALT 18 (0-31) U/L Alkaline Phosphatase 113 (39-117) U/L C-Reactive Protein 2.46 H (< or = 0.50) mg/dL Total Protein 7.4 (6.5-8.0) g/dL Albumin 4.0 (3.5-5.0) g/dL Urine Color Yellow Urine Appearance Turbid Urine pH 6.0 (5.0-9.0) Ur Specific [place] 1.015 (1.005-1.025) Urine Protein Trace (Neg-Trace) mg/dL Urine Glucose (UA) Negative (Negative) mg/dL Urine Ketones Negative (Negative) mg/dL Urine Blood Trace H (Negative) Urine Nitrite Negative (Negative) Ur Leukocyte Esterase Large (3+) H (Negative) Urine RBC 0-2 (0-2) /HPF Urine WBC >50 (0-5) /HPF Ur Squamous Epith Cells 0-2 (0-2) /HPF Urine Bacteria 2+ (None Seen) Hyaline Casts 0-2 (0-2) /LPF Independent Interpretation I performed an independent interpretation of an: CT Scan Interpretation: My interpretation is in agreement with the radiologist's impression of these imaging studies. - EXAMINATION: CT HEAD WITHOUT CONTRAST CT CERVICAL SPINE WITHOUT CONTRAST CLINICAL INFORMATION: Garbled speech. Lightheadedness. COMPARISON: CT scan of the head and cervical spine 11/26/2022. TECHNIQUE: Technician Helper Instrument images were obtained. CT imaging of the head and cervical spine was performed without contrast. Data was reformatted into multiplanar images at the acquisition workstation. This CT examination was performed using dose optimization techniques as appropriate, including one or more of the following: Automated exposure control, iterative reconstruction, and adjustment of technique factors (mA and/or kVp) according to patient size (this includes techniques or standardized protocols for targeted exams where dose is matched to indication/reason for exam). Fleischner Society criteria for the followup of incidental pulmonary nodules was implemented if appropriate. DLP: 984 mGy-cm. FINDINGS: Head: There is no acute intracranial hemorrhage or abnormal extra axial collection. No intracranial mass effect or midline shift. Lateral and third ventricles are proportionate to the subarachnoid spaces. No hydrocephalus. There are scattered nonspecific foci of hypoattenuation within the periventricular white matter that most likely represent a chronic manifestation of small vessel ischemia. Fox-white matter projection is otherwise preserved and there is no evidence of acute territorial infarct. The calvarium and skull base are intact. Mastoid air cells and middle ear cavities are well aerated. No active paranasal sinus disease. There are a a few metallic skin tisha are visualized within the scalp near the vertex. Cervical spine: There is slight anterolisthesis of C3 on C4. Alignment is otherwise normal. Vertebral heights are preserved. No acute cervical spine fracture. No abnormal prevertebral soft tissues swelling. There is loss of intervertebral disc height with associated sclerotic degenerative endplate changes and hypertrophic disc osteophyte spurring at multiple levels. Canal patency is not well assessed on this examination due to inherent limitations of CT without intrathecal contrast. There is at least moderate canal stenosis at C4-C5, C5-C6, and C6-C7. Uncovertebral joint spurring in conjunction with facet degenerative change causes varying degrees of neuroforaminal encroachment at multiple levels. Visualized soft tissues of the neck are unremarkable. Pleural-parenchymal scarring is visualized at the apices of both lungs. CT/CT head/brain wo IV con IMPRESSION: Head: There are a few retained metallic skin tisha within the scalp near the vertex. Otherwise unremarkable examination. No evidence of acute territorial infarct or hemorrhage. Cervical spine: No evidence of acute cervical spine fracture. There is advanced multilevel degenerative spondylosis of the cervical spine with at least moderate canal stenosis at multiple levels. If there are clinical symptoms of compressive myelopathy then a dedicated cervical spine MRI can be obtained for better anatomic characterization of the cord and canal. Dictated By: Lalo Shane MD Signed By: Electronically signed by Lalo Shane MD 11/28/22 1514 Radiology Impression Discussion of test interpretation with radiology: I have reviewed the radiologist's reading. Independent Historian Clinical information obtained from an independent historian. History obtained from or confirmed by: Spouse (patient's provided additional history and confirmed the history provided by the patient.) Prescription Management I considered prescription management with: Antibiotic (patient prescribed an antibiotic for her UTI.) Discharge Plan Discharge Clinical Impression: Urinary tract infection Patient Disposition: Home, Self-Care Instructions: Urinary Tract Infection in Women (DC) Additional Instructions: Follow up with your primary care provider. Return to the emergency department immediately if your symptoms worsen or if you develop any dizziness, shortness of breath, difficulty breathing, chest pain, blurry vision, loss of vision, nausea, vomiting, abdominal pain, fever, chills, back pain, or any other complaints. Prescriptions: New cefuroxime axetil 250 mg tablet 250 mg PO BID 7 Days Qty: 14 0RF No Action albuterol sulfate [ProAir HFA] 90 mcg/actuation HFA aerosol inhaler 2 puff inhalation Q4-6H PRN (Reason: shortness of breath or wheezing) Qty: 8.5 6RF furosemide 40 mg tablet 40 mg PO QAM 90 Days Qty: 90 3RF furosemide 20 mg tablet 20 mg PO QPM Qty: 30 0RF Trelegy Ellipta 200-62.5-25 mcg blister with device 1 ea inhalation DAILY Qty: 60 6RF digoxin 125 mcg (0.125 mg) Tablet 0.125 mg PO DAILY Qty: 30 0RF Eliquis 5 mg Tablet 5 mg PO BID Qty: 60 0RF fluticasone propionate 50 mcg/actuation spray,suspension 1 spray intranasal BID PRN (Reason: Allergy Symptoms) loratadine [Claritin] 10 mg Tablet 10 mg PO DAILY PRN (Reason: Allergy Symptoms) diltiazem HCl 360 mg capsule,extended release 24hr 360 mg PO DAILY lamotrigine 100 mg tablet 100 mg PO BEDTIME pantoprazole 40 mg tablet,delayed release (DR/EC) 40 mg PO DAILY bupropion HCl [Wellbutrin SR] 200 mg tablet sustained-release 12 hr 200 mg PO BID@0900,1300 montelukast 10 mg tablet 10 mg PO DAILY lamotrigine 200 mg tablet 200 mg PO DAILY oxybutynin chloride 10 mg tablet extended release 24hr 10 mg PO DAILY theophylline 400 mg tablet extended release 24 hr 400 mg PO DAILY 30 Days Qty: 30 6RF Referrals: Eddie Messina MD [Primary Care Provider] - Discharge Date/Time: 11/28/22 17:41 Print Language: German
[2022-11-28 12:20] VITALS: BP 139/61; PULSE 70; RESP 18; TEMP 36.6; O2SAT 98; BMI 25.6
[2022-11-28 12:53] LABS: MANUAL DIFF FLAG NO
[2022-11-28 12:56] LABS: Basophils Absolute Auto 0.1 X10*3/uL (0.0-0.2); Basophils Percent Auto 0.5 % (0-2); Eosinophils Absolute Auto 0.3 X10*3/uL (0.0-0.4); Eosinophils Percent Auto 2.5 % (0-4); Hematocrit 37.4 % (37.0-47.0); Hemoglobin 11.2 g/dl (12.0-16.0); Imm Gran Abs Auto 0.08 X10*3/uL (0.00-0.03); Imm Gran Pct Auto 0.7 % (0.0-0.4); Lymphocytes Absolute Auto 1.3 X10*3/uL (1.2-4.9); Lymphocytes Percent Auto 11.6 % (20-40); Mean Corpuscular HGB Conc 29.9 g/dl (31.0-35.0); Mean Corpuscular Hemoglobin 23.8 pg (27.0-33.0); Mean Corpuscular Volume 79.4 fL (80.0-98.0); Mean Platelet Volume 9.9 fL (9.4-12.3); Monocytes Absolute Auto 0.7 X10*3/uL (0.1-1.2); Monocytes Percent Auto 6.1 % (2-11); Neutrophils Absolute Auto 8.9 x10*3/uL (2.0-8.3); Neutrophils Percent Auto 78.6 % (45-73); Platelet Count 337 X10*3/uL (160-400); Red Blood Count 4.71 X10*6/uL (4.20-5.50); Red Cell Distribution Width 16.1 % (11.0-16.0); White Blood Count 11.3 X10*3/uL (4.8-10.8)
[2022-11-28 13:11] LABS: Alanine Aminotransferase 18 U/L (0-31); Alkaline Phosphatase 113 U/L (39-117); Anion Gap 17 (12-20); Aspartate Amino Transferase 21 U/L (5-31); Bilirubin Total 0.3 mg/dL (0.0-1.0); Blood Urea Nitrogen 20 mg/dL (9-16); C Reactive Protein 2.46 mg/dL (< or = 0.50); Calcium 10.1 mg/dL (8.4-10.2); Carbon Dioxide 24 mmol/L (22-29); Chloride 102 mmol/L (96-108); Estimated Glomerular Filt Rate > 60; Glucose Random 71 mg/dL (60-115); Potassium 3.5 mmol/L (3.3-5.1); Sodium 139 mmol/L (135-145); Total Protein 7.4 g/dL (6.5-8.0)
[2022-11-28 13:42] LABS: Erythrocyte Sedimentation Rate 34 MM/HR (0-20)
[2022-11-28 16:42] LABS: Appearance Urine Turbid; Color Urine Yellow; Glucose Urine UA Negative (Negative); Leukocyte Esterase Urine Large (3+) (Negative); Nitrite Urine Negative (Negative); Specific Gravity - Urine 1.015 (1.005-1.025); UMIC TRIGGER UACC YES; Urine Blood Trace (Negative); Urine Ketones Negative (Negative); Urine Protein Trace mg/dL (Neg-Trace)
[2022-11-28 16:55] LABS: Bacteria Urine 2+ (None Seen); Hyaline Casts Urine 0-2 /LPF (0-2); RBC Urine 0-2 /HPF (0-2); Squamous Epithelial Cell Urine 0-2 /HPF (0-2); UACC Culture Trigger YES; WBC Urine >50 /HPF (0-5)
--- NOTE | 2022-11-28 17:41 | PC.NURSE ---
PT WAS SEEN AND REASSESSED BY TRIAGE PROVIDER AND DISCHARGED
== END 2022-11-28 17:41 | disposition home or self-care (01) ==
PROVIDERS: Physician Assistant Medical; Emergency Provider Emergency Medicine; PCP Internal Medicine
DX: N39.0 Urinary tract infection, site not specified (principal); R42 Dizziness and giddiness; M54.2 Cervicalgia; Z87.891 Personal history of nicotine dependence; Z79.899 Other long term (current) drug therapy
CPT/HCPCS: 36415; 70450; 72125; 80053; 81001; 85025; 85652; 86140; 87086; 87088; 87186; 99282; 99284

== ENCOUNTER 2023-01-14 16:39 | Emergency (ER) | payer MEDICARE, SELFPAY ==
--- NOTE | ~2023-01-14 | CT_ITS ---
EXAMINATION: CT cervical spine wo IV con, CT head/brain wo IV con CLINICAL INFORMATION: Reason for Exam dizziness, falls on AC COMPARISON: CT head and cervical spine 11/28/2022 TECHNIQUE: Contiguous axial imaging was performed from the skull base to vertex without intravenous contrast. Sagittal and coronal reformatted images were obtained. CT images of the cervical spine were acquired without intravenous contrast. This CT examination was performed using dose optimization techniques as appropriate, variously including the following: * Automated exposure control * Adjustment of mA and/or kV according to patient size (this includes techniques or standardized protocols for targeted exams where dose is matched to indication/reason for exam; i.e. extremities or head) Use of iterative reconstruction technique DLP: 967.41 mGy-cm mGy-cm FINDINGS: CT head: There is no evidence of acute intracranial hemorrhage. No mass-effect or ventricular shift is noted. No acute, territorial loss of murillo-white differentiation. Generalized cerebral volume loss with associated ventricular and sulcal prominence.Periventricular and subcortical white matter hypodensity, more focal in the left frontal lobe, is nonspecific but likely represents chronic microvascular ischemic change. No depressed calvarial fracture. The paranasal sinuses are well-aerated. The mastoid air cells are clear. Bilateral intraocular lens replacements. CT cervical spine: Diffuse osteopenia. No prevertebral soft tissue swelling. The craniocervical junction is intact. Reversal of the normal cervical lordosis with grade 1 anterolisthesis of C3-C4. Vertebral body heights are normal without acute compression fracture. No suspicious osseous lesion. There is multilevel cervical spondylosis. At least moderate canal stenosis at C4-C5, C5-C6, and C6-C7. Paraseptal emphysematous changes in the right upper lobe. Patulous esophagus with layering debris. CT/CT cervical spine wo IV con IMPRESSION: No acute intracranial hemorrhage, mass effect, or midline shift. Diffuse osteopenia. No acute, displaced cervical spine fracture. Redemonstrated multilevel advanced degenerative changes with multilevel at least moderate canal stenosis.
[2023-01-14 17:27] VITALS: BP 127/73; PULSE 78; RESP 18; TEMP 36.8; O2SAT 100; BMI 24.3
--- NOTE | 2023-01-14 17:27 | ED_ITS ---
HPI - General Adult General Chief complaint: Dizziness Stated complaint: vomiting/feels alittle foggy,unsteady of her feet Time Seen by Provider: 01/15/23 00:05 Source: patient Mode of arrival: ambulatory Limitations: no limitations History of Present Illness HPI narrative: Patient history of depression AFib been feeling weak and tired last few days were sleep sleeping only 2-3 hours per night under increased stress from left shoulder fracture feel like a zombie increased dizziness no urinary complaints no fever chills Related Data Home Medications Medication Instructions Recorded Confirmed pantoprazole 40 mg tablet,delayed 40 mg PO DAILY 01/10/20 07/12/22 release bupropion HCl 200 mg tablet,12 hr 200 mg PO BID@0900,1300 01/11/20 07/12/22 sustained-release (Wellbutrin SR) lamotrigine 200 mg tablet 200 mg PO DAILY 12/05/20 07/12/22 montelukast 10 mg tablet 10 mg PO DAILY 12/05/20 07/12/22 oxybutynin chloride 10 mg 10 mg PO DAILY 12/05/20 07/12/22 tablet,extended release 24 hr diltiazem HCl 360 mg 360 mg PO DAILY 05/28/22 07/12/22 capsule,extended release 24 hr lamotrigine 100 mg tablet 100 mg PO BEDTIME 05/28/22 07/13/22 fluticasone propionate 50 1 spray intranasal BID PRN Allergy 06/10/22 07/12/22 mcg/actuation nasal Symptoms spray,suspension loratadine 10 mg tablet (Claritin) 10 mg PO DAILY PRN Allergy Symptoms 07/13/22 07/13/22 Previous Rx's Medication Instructions Recorded digoxin 125 mcg (0.125 mg) tablet 0.125 mg PO DAILY #30 tabs 09/11/21 apixaban 5 mg tablet (Eliquis) 5 mg PO BID #60 tabs 09/12/21 albuterol sulfate 90 mcg/actuation 2 puff inhalation Q4-6H PRN 05/05/22 aerosol inhaler (ProAir HFA) shortness of breath or wheezing #8.5 grams furosemide 40 mg tablet 40 mg PO QAM 90 days #90 tabs 09/15/22 theophylline 400 mg 400 mg PO DAILY 30 days #30 tabs 10/21/22 tablet,extended release 24 hr fluticasone fur. 200 mcg-umeclid 1 ea inhalation DAILY #60 ea 11/24/22 62.5 mcg-vilant 25 mcg inhalat.powder (Trelegy Ellipta) cefuroxime axetil 250 mg tablet 250 mg PO BID 7 days #14 tabs 11/28/22 furosemide 20 mg tablet 20 mg PO QPM #30 tabs 01/13/23 nitrofurantoin 100 mg PO BID #14 caps 01/15/23 monohydrate/macrocrystals 100 mg capsule (Macrobid) potassium chloride 10 mEq 10 meq PO DAILY #30 caps 01/15/23 capsule,extended release zolpidem 5 mg tablet (Ambien) 5 mg PO BEDTIME PRN sleep #14 tabs 01/15/23 Allergies Allergy/AdvReac Type Severity Reaction Status Date / Time No Known Allergies Allergy Verified 01/14/23 17:30 [No Known Allergies*] Review of Systems 2 Review of Systems: Yes all other systems are reviewed and are negative PMFSH Past Medical History Medical History Cough Orthopnea Post covid-19 condition, unspecified Constipation Overweight (BMI 25.0-29.9) Malabsorption due to intolerance, not elsewhere classified Paroxysmal A-fib MILY (obstructive sleep apnea) SOB (shortness of breath) Hypertension Anemia Loculated pleural effusion MSSA bacteremia Atrial fibrillation, new onset UTI (urinary tract infection) Hypertension Asthma Surgical History Status post total hip replacement, right History of total replacement of right hip History of bunionectomy Left inguinal hernia History of total right hip arthroplasty History of total left hip arthroplasty S/P laparoscopic sleeve gastrectomy Social History Social History Household Members: Family Household Members Other:: Danny Housing: House Do you presently have visiting nurse or other home services: No Alcohol intake: never Comment: refused bed alarm Patient Tobacco Use Status: Former Tobacco user Quit Date: 1987 Tobacco use type: Cigarette Years Smoked: 16 years Smoked in Last 30 Days: No Second Hand Smoke Exposure: No Use of substances other than those prescribed or required for medical reasons: No Advance Directives: No Advance Directives Information Provided: No service: No 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al status: retired 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: Right Handed Physical Exam ED Vital Signs: Vital Signs - 24 hr 01/14/23 17:27 01/14/23 21:09 01/14/23 22:49 Temperature 98.2 F 98.0 F 97.4 F Pulse Rate 78 64 73 Respiratory Rate 18 16 16 Blood Pressure 127/73 140/67 H 145/55 H Pulse Oximetry 100 98 100 Oxygen Delivery Method Room Air Room Air Room Air 01/15/23 01:11 Temperature Pulse Rate 70 Respiratory Rate 14 Blood Pressure 128/83 Pulse Oximetry 99 Oxygen Delivery Method Room Air BMI result Body Mass Index 24.3 Appearance: Alert. Oriented X3. No acute distress. Eyes: PERRLA, No Nystagmus ENT: Pharynx normal. Oral Mucosa moist Neck: Normal inspection. Neck supple. CVS: Normal heart rate and rhythm. Pulses normal. Respiratory: No respiratory distress. Equal air entry bilateral, no wheezing/rales/rhonchi Abdomen: Soft and nontender. Bowel sounds are present, no mass palpable, no CVA tenderness Skin: Skin warm and dry. Normal skin color. Normal skin turgor. Extremities: No lower extremity edema. No calf tenderness Neuro: Oriented X 3. No motor deficit. No sensory deficit.No cerebellar signs , cranial nerves II-XII intact Course Course Course Narrative: This is an RME: Additional HPI, ROS, PE not included below will be deferred to primary provider. This is a [id number]-female, atrial fibrilation on Eliquis, hypertension, asthma, anemia, MILY, asthma, constipation, and UTI, presenting to the emergency department with a complaint of lightheadedness, nausea, vomiting x several days. Also having some shortness of breath. Reporting that she has had 2 separate falls, reports that 2 days ago she slipped off of a chair. She also states that she fell and hit herself in the bathroom yesterday. Plan: Labs, EKG, UA, CT head and neck Medications Administered Discontinued Medications Generic Name Dose Route Start Last Admin Trade Name Freq PRN Reason Stop Dose Admin Nitrofurantoin Macrocrystals 100 mg 01/15/23 00:56 01/15/23 01:04 Nitrofurantoin Monohyd/M-Cryst 100 Mg Capsule PO 01/15/23 00:57 100 mg ONCE ONE Administration Potassium Chloride 20 meq 01/15/23 00:56 01/15/23 01:04 Potassium Chloride Er 20 Meq Tab.Er.Prt PO 01/15/23 00:57 20 meq ONCE ONE Administration Zolpidem Tartrate 10 mg 01/15/23 00:56 01/15/23 01:04 Zolpidem Tartrate 5 Mg Tablet PO 01/15/23 00:57 10 mg ONCE ONE Administration Medical Decision Making Medical Decision Making [facility] Narrative: Patient with UTI hyperkalemia poor sleep likely the cause for symptoms blood workup otherwise negative will has slight UTI discharge patient home on Macrobid as she had. Enterococcus faecalis in the past which was sensitive to Macrobid. Patient vitals stable Differential Diagnosis Differential Diagnoses: The differential diagnosis associated with the presentation includes Admission/Observation Consideration of admission/observation: Escalation of care including admission/observation considered Lab Data [facility] Lab Attestation statement: I reviewed the patient's lab results. 01/14/23 17:48 01/14/23 17:48 Labs: Lab Results 01/14/23 01/14/23 Range/Units 17:48 23:48 WBC 11.0 H (4.8-10.8) X10*3/uL RBC 4.52 (4.20-5.50) X10*6/uL Hgb 10.7 L (12.0-16.0) g/dl Hct 34.7 L (37.0-47.0) % MCV 76.8 L (80.0-98.0) fL MCH 23.7 L (27.0-33.0) pg MCHC 30.8 L (31.0-35.0) g/dl RDW 17.7 H (11.0-16.0) % Plt Count 360 (160-400) X10*3/uL MPV 9.4 (9.4-12.3) fL Immature Gran % (Auto) 1.3 H (0.0-0.4) % Neut % (Auto) 71.2 (45-73) % Lymph % (Auto) 17.9 L (20-40) % [place] % (Auto) 6.8 (2-11) % Eos % (Auto) 2.1 (0-4) % Baso % (Auto) 0.7 (0-2) % Lymph # (Auto) 2.0 (1.2-4.9) X10*3/uL [place] # (Auto) 0.8 (0.1-1.2) X10*3/uL Eos # (Auto) 0.2 (0.0-0.4) X10*3/uL Baso # (Auto) 0.1 (0.0-0.2) X10*3/uL Abs Immat Gran (auto) 0.14 H (0.00-0.03) X10*3/uL Absolute Neuts (auto) 7.9 (2.0-8.3) x10*3/uL Absolute Nucleated RBC 0.000 (0.0-0.012) X10*3/uL Nucleated RBC % (auto) 0.0 (0.0-0.2) /100WBC Sodium 142 (135-145) mmol/L Potassium 3.0 L (3.3-5.1) mmol/L Chloride 101 (96-108) mmol/L Carbon Dioxide 31 H (22-29) mmol/L Anion Gap 13 (12-20) BUN 15 (9-16) mg/dL Creatinine 1.02 (0.5-1.4) mg/dL Estim Creat Clear Calc 42.6 Estimated GFR 53 Random Glucose 131 H (60-115) mg/dL Calcium 9.8 (8.4-10.2) mg/dL Total Bilirubin 0.3 (0.0-1.0) mg/dL Direct Bilirubin 0.1 (0.0-0.5) mg/dL AST 18 (5-31) U/L ALT 11 (0-31) U/L Alkaline Phosphatase 112 (39-117) U/L Troponin I High Sens 14.8 D (<3.5-17.0) ng/L Total Protein 7.4 (6.5-8.0) g/dL Albumin 3.8 (3.5-5.0) g/dL Urine Color Yellow Urine Appearance Turbid Urine pH 6.0 (5.0-9.0) Ur Specific [place] 1.020 (1.005-1.025) Urine Protein Trace (Neg-Trace) mg/dL Urine Glucose (UA) Negative (Negative) mg/dL Urine Ketones Negative (Negative) mg/dL Urine Blood Negative (Negative) Urine Nitrite Negative (Negative) Ur Leukocyte Esterase Large (3+) H (Negative) Urine RBC 0-2 (0-2) /HPF Urine WBC >50 H (0-5) /HPF Ur Squamous Epith Cells 0-2 (0-2) /HPF Urine Bacteria 3+ (None Seen) Hyaline Casts 0-2 (0-2) /LPF Independent Interpretation I performed an independent interpretation of an: EKG Interpretation: Normal sinus rhythm heart rate 55 beats per minute left axis deviation LVH no acute ST T-wave changes no acute ischemia Discharge Plan Discharge Clinical Impression: Insomnia, Acute UTI, Hypokalemia Patient Disposition: Home, Self-Care Instructions: Urinary Tract Infection in Women (ED), Hypokalemia (ED), Insomnia (ED) Additional Instructions: Take medication every night to sleep as needed Antibiotic for UTI Have extra bananas/orange juice every day as you taking furosemide which can decrease potassium level Potassium tablets once a day Follow with PCP Prescriptions: New nitrofurantoin monohyd/m-cryst [Macrobid] 100 mg capsule 100 mg PO BID Qty: 14 0RF Rx Instructions: must administer with a meal/food zolpidem [Ambien] 5 mg tablet 5 mg PO BEDTIME PRN (Reason: sleep) Qty: 14 0RF potassium chloride 10 mEq capsule, extended release 10 meq PO DAILY Qty: 30 0RF No Action albuterol sulfate [ProAir HFA] 90 mcg/actuation HFA aerosol inhaler 2 puff inhalation Q4-6H PRN (Reason: shortness of breath or wheezing) Qty: 8.5 6RF furosemide 40 mg tablet 40 mg PO QAM 90 Days Qty: 90 3RF Trelegy Ellipta 200-62.5-25 mcg blister with device 1 ea inhalation DAILY Qty: 60 6RF furosemide 20 mg tablet 20 mg PO QPM Qty: 30 0RF digoxin 125 mcg (0.125 mg) Tablet 0.125 mg PO DAILY Qty: 30 0RF Eliquis 5 mg Tablet 5 mg PO BID Qty: 60 0RF fluticasone propionate 50 mcg/actuation spray,suspension 1 spray intranasal BID PRN (Reason: Allergy Symptoms) loratadine [Claritin] 10 mg Tablet 10 mg PO DAILY PRN (Reason: Allergy Symptoms) cefuroxime axetil 250 mg tablet 250 mg PO BID 7 Days Qty: 14 0RF diltiazem HCl 360 mg capsule,extended release 24hr 360 mg PO DAILY lamotrigine 100 mg tablet 100 mg PO BEDTIME pantoprazole 40 mg tablet,delayed release (DR/EC) 40 mg PO DAILY bupropion HCl [Wellbutrin SR] 200 mg tablet sustained-release 12 hr 200 mg PO BID@0900,1300 montelukast 10 mg tablet 10 mg PO DAILY lamotrigine 200 mg tablet 200 mg PO DAILY oxybutynin chloride 10 mg tablet extended release 24hr 10 mg PO DAILY theophylline 400 mg tablet extended release 24 hr 400 mg PO DAILY 30 Days Qty: 30 6RF Interventions: ED Discharge Assessment Last Done: 01/15/23 01:15 Discharge Date/Time: 01/15/23 01:15
--- NOTE | 2023-01-14 17:29 | ECG_ITS ---
Test Reason : dizzyness Blood Pressure : / mmHG Vent. Rate : 065 BPM Atrial Rate : 065 BPM P-R Int : 230 ms QRS Dur : 132 ms QT Int : 450 ms P-R-T Axes : 067 -43 114 degrees QTc Int : 468 ms Sinus rhythm with 1st degree A-V block Left axis deviation Left ventricular hypertrophy with QRS widening ( R in aVL , Homar product ) Nonspecific T wave abnormality Abnormal ECG When compared with ECG of 26-AUG-2022 13:49, Sinus rhythm has replaced Atrial fibrillation QRS duration has increased ST elevation now present in Anterior leads Referred By: Joceline Bauer Electronically Signed By:JUDITH TRACY
[2023-01-14 17:55] LABS: MANUAL DIFF FLAG NO
[2023-01-14 18:00] LABS: Basophils Absolute Auto 0.1 X10*3/uL (0.0-0.2); Basophils Percent Auto 0.7 % (0-2); Eosinophils Absolute Auto 0.2 X10*3/uL (0.0-0.4); Eosinophils Percent Auto 2.1 % (0-4); Hematocrit 34.7 % (37.0-47.0); Hemoglobin 10.7 g/dl (12.0-16.0); Imm Gran Abs Auto 0.14 X10*3/uL (0.00-0.03); Imm Gran Pct Auto 1.3 % (0.0-0.4); Lymphocytes Percent Auto 17.9 % (20-40); Mean Corpuscular HGB Conc 30.8 g/dl (31.0-35.0); Mean Corpuscular Hemoglobin 23.7 pg (27.0-33.0); Mean Corpuscular Volume 76.8 fL (80.0-98.0); Mean Platelet Volume 9.4 fL (9.4-12.3); Monocytes Absolute Auto 0.8 X10*3/uL (0.1-1.2); Monocytes Percent Auto 6.8 % (2-11); Neutrophils Absolute Auto 7.9 x10*3/uL (2.0-8.3); Neutrophils Percent Auto 71.2 % (45-73); Platelet Count 360 X10*3/uL (160-400); Red Blood Count 4.52 X10*6/uL (4.20-5.50); Red Cell Distribution Width 17.7 % (11.0-16.0)
[2023-01-14 18:18] LABS: Alanine Aminotransferase 11 U/L (0-31); Albumin Level 3.8 g/dL (3.5-5.0); Alkaline Phosphatase 112 U/L (39-117); Anion Gap 13 (12-20); Aspartate Amino Transferase 18 U/L (5-31); Bilirubin Direct 0.1 mg/dL (0.0-0.5); Bilirubin Total 0.3 mg/dL (0.0-1.0); Blood Urea Nitrogen 15 mg/dL (9-16); Calcium 9.8 mg/dL (8.4-10.2); Carbon Dioxide 31 mmol/L (22-29); Chloride 101 mmol/L (96-108); Creatinine Clr Calc Pharmacy 42.6; Estimated Glomerular Filt Rate 53; Glucose Random 131 mg/dL (60-115); Sodium 142 mmol/L (135-145); Total Protein 7.4 g/dL (6.5-8.0)
[2023-01-14 18:20] LABS: Troponin-I High Sensitivity 14.8 ng/L (<3.5-17.0)
[2023-01-14 21:09] VITALS: BP 140/67; PULSE 64; RESP 16; TEMP 36.7; O2SAT 98
[2023-01-14 22:49] VITALS: BP 145/55; PULSE 73; RESP 16; TEMP 36.3; O2SAT 100
--- NOTE | 2023-01-14 23:39 | PC.NURSE ---
pt reports starting to take trazadone to help her sleep at night, took 3 nights and then stopped d/t woozy and dizzy and not helpful. pt also reports painting on going in her house with paint fumes. decreased PO intake, n/v, sometimes unable to take pills. gentle fall twice since dizziness started with no injuries
[2023-01-14 23:58] LABS: Appearance Urine Turbid; Color Urine Yellow; Glucose Urine UA Negative (Negative); Leukocyte Esterase Urine Large (3+) (Negative); Nitrite Urine Negative (Negative); UMIC TRIGGER UACC YES; Urine Blood Negative (Negative); Urine Ketones Negative (Negative); Urine Protein Trace mg/dL (Neg-Trace)
[2023-01-15 00:09] LABS: Bacteria Urine 3+ (None Seen); Hyaline Casts Urine 0-2 /LPF (0-2); RBC Urine 0-2 /HPF (0-2); Squamous Epithelial Cell Urine 0-2 /HPF (0-2); UACC Culture Trigger YES; WBC Urine >50 /HPF (0-5)
[2023-01-15] MEDS: Zolpidem Tartrate 5 MG TABLET 10 MG PO (01:04)
[2023-01-15] MEDS: Nitrofurantoin Monohyd/M-Cryst 100 MG CAPSULE PO (01:04)
[2023-01-15] MEDS: Potassium Chloride ER 20 MEQ TAB.ER.PRT PO (01:04)
[2023-01-15 01:11] VITALS: BP 128/83; PULSE 70; RESP 14; O2SAT 99
== END 2023-01-15 01:15 | disposition home or self-care (01) ==
PROVIDERS: Physician Assistant Medical; Emergency Provider Internal Medicine; PCP Internal Medicine
DX: G47.00 Insomnia, unspecified (principal); N39.0 Urinary tract infection, site not specified; E87.6 Hypokalemia; I10 Essential (primary) hypertension; I48.0 Paroxysmal atrial fibrillation; G47.33 Obstructive sleep apnea (adult) (pediatric); Z98.84 Bariatric surgery status; Z87.891 Personal history of nicotine dependence; Z79.01 Long term (current) use of anticoagulants; Z79.899 Other long term (current) drug therapy
CPT/HCPCS: 36415; 70450; 72125; 80048; 80076; 81001; 81003; 84484; 85025; 87086; 87088; 87186; 93005; 99284

== ENCOUNTER → 2023-01-14 17:29 | Outpatient (BNV) | payer MEDICARE, SELFPAY | PROVIDERS: Emergency Provider Internal Medicine; PCP Internal Medicine; Visit Provider Internal Medicine | DX: I44.0 Atrioventricular block, first degree (principal); R94.31 Abnormal electrocardiogram [ECG] [EKG] | CPT/HCPCS: 93010 ==

== ENCOUNTER 2023-02-10 11:02 | Emergency (ER) | payer MEDICARE, SELFPAY ==
--- NOTE | ~2023-02-10 | XR_ITS ---
EXAMINATION: XR CHEST CLINICAL INFORMATION: Shortness of breath. COMPARISON: 08/26/2012 TECHNIQUE: 2 frontal views of the chest was obtained. FINDINGS: There is no gross pneumothorax. Left total shoulder prosthesis present. Bones are diffusely demineralized. Rightward curvature of the thoracic spine with multilevel degenerative changes. Surgical clips in the left upper quadrant. Redemonstration of old posterior healed right rib fracture. Redemonstration of enlargement of the cardiac silhouette. Mild left basilar markings may represent subsegmental atelectasis/scar versus pneumonia. Mild left costophrenic angle blunting may represent trace pleural effusion versus pleural thickening. XR/XR chest 1V IMPRESSION: Redemonstration of enlargement of the cardiac silhouette. Mild left basilar markings may represent subsegmental atelectasis/scar versus pneumonia. Mild left costophrenic angle blunting may represent trace pleural effusion versus pleural thickening. Recommend follow-up imaging in 4-6 weeks to confirm resolution and exclude underlying pathology. Stat report provided as requested to the referring clinician at the time this exam was presented for interpretation on 02/10/2023 1:25 PM.
--- NOTE | 2023-02-10 11:08 | ECG_ITS ---
Test Reason : STEMI? Blood Pressure : / mmHG Vent. Rate : 076 BPM Atrial Rate : 076 BPM P-R Int : 254 ms QRS Dur : 152 ms QT Int : 410 ms P-R-T Axes : 078 -51 103 degrees QTc Int : 461 ms Sinus rhythm with 1st degree A-V block Left bundle branch block Abnormal ECG When compared with ECG of 14-JAN-2023 17:42, Left bundle branch block is now Present Referred By: Generic ED Physician Electronically Signed By:Edd Galvez
[2023-02-10 11:10] VITALS: BP 198/95; PULSE 79; O2SAT 99
[2023-02-10 11:13] VITALS: BP 155/66; PULSE 76; RESP 13; TEMP 36.6; O2SAT 97; BMI 25.2
--- NOTE | 2023-02-10 11:36 | PC.NURSE ---
patient is alert and oriented x3, aware of situation. patient refusing blood work, wants to leave AMA. aware and spoke with patient . patient at this time agrees to chest xray and no further testing
[2023-02-10 12:11] LABS: Appearance Urine Cloudy; Color Urine Yellow; Glucose Urine UA Negative (Negative); Leukocyte Esterase Urine Large (3+) (Negative); Nitrite Urine Negative (Negative); UMIC TRIGGER UACC YES; Urine Blood Small (1+) (Negative); Urine Ketones Negative (Negative); Urine Protein Negative (Neg-Trace)
[2023-02-10 12:18] LABS: Bacteria Urine 2+ (None Seen); Hyaline Casts Urine 0-2 /LPF (0-2); RBC Urine 0-2 /HPF (0-2); Squamous Epithelial Cell Urine 0-2 /HPF (0-2); UACC Culture Trigger YES; WBC Urine >50 /HPF (0-5)
--- NOTE | 2023-02-10 12:58 | PC.NURSE ---
patient sitting in stretcher, has paranoid thoughts that her set up this scam of coming to the hospital , patient keeps asking for her discharge paper work and a cab to leave. patient insisting she is not delusional, fixated on this subject. respirations equal and unlabored, patient shows no signs of distress
--- NOTE | 2023-02-10 13:45 | PC.NURSE ---
patient ambulated to bathroom with this RN, patient had steady gate, says she normally walks with a cane
[2023-02-10 14:54] VITALS: BP 152/54; PULSE 72; RESP 20; TEMP 36.7; O2SAT 96
[2023-02-10 15:55] LABS: Influenza A PCR NEGATIVE (Negative); Influenza B PCR NEGATIVE (Negative); Resp Syncy Virus RNA Qual PCR NEGATIVE (Negative); SARS COV2 PCR INHOUSE NEGATIVE (Negative)
--- NOTE | 2023-02-11 14:47 | ED.GENADULT ---
HPI - General Adult General Chief complaint: Upper Respiratory Symptoms Stated complaint: AMS,RECENT UTI PER PER EMS Time Seen by Provider: 02/10/23 11:11 History of Present Illness HPI narrative: The patient is a 72-year-old woman who arrived to the emergency room by ambulance. Apparently the ambulance had been called because of possible respiratory symptoms and a general sense of feeling unwell. Paramedics report that when they arrived the patient seemed confused and was still trying to dial 911 despite the fact that paramedics had arrived. The patient was wearing her left arm in a sling because of shoulder replacement surgery 2 months ago. Additionally the patient complained that she might be feeling unwell because she had received 3 vaccines 3 days ago including a flu shot and a COVID vaccine. Possibly also a RSV vaccine. With paramedics the patient had a 12 lead EKG done which paramedics thought might be consistent with an ST segment elevation myocardial infarction and told the patient they wanted to bring her to [facility]. However the patient did not really seem to have chest pain consistent with an [place] and the patient refused to allow paramedics to bring her to [facility]. Paramedics called the emergency for medical control for this reason and the patient was then brought here. On arrival here the patient was immediately unwilling to allow significant investigation of her symptoms. She would not answer questions about her history and insisted that she had made a mistake in calling 911 and said that she wanted to be discharged. I was ultimately able to speak to her and her daughters. The told me that the patient had gotten very upset with him today and perhaps she called 911 out of frustration. The and the patient's daughters with whom I spoke indicated that the patient's behavior today was not entirely out of character. There does not seem to have been any definite history of fever, sweats, or chills although the patient was not very forthcoming as an historian. She may have had some urinary frequency but otherwise denies burning with urination or urgency. She admits to having a pessary and she has urologist. Related Data Home Medications Medication Instructions Recorded Confirmed pantoprazole 40 mg tablet,delayed 40 mg PO DAILY 01/10/20 07/12/22 release bupropion HCl 200 mg tablet,12 hr 200 mg PO BID@0900,1300 01/11/20 07/12/22 sustained-release (Wellbutrin SR) lamotrigine 200 mg tablet 200 mg PO DAILY 12/05/20 07/12/22 montelukast 10 mg tablet 10 mg PO DAILY 12/05/20 07/12/22 oxybutynin chloride 10 mg 10 mg PO DAILY 12/05/20 07/12/22 tablet,extended release 24 hr diltiazem HCl 360 mg 360 mg PO DAILY 05/28/22 07/12/22 capsule,extended release 24 hr lamotrigine 100 mg tablet 100 mg PO BEDTIME 05/28/22 07/13/22 fluticasone propionate 50 1 spray intranasal BID PRN Allergy 06/10/22 07/12/22 mcg/actuation nasal Symptoms spray,suspension loratadine 10 mg tablet (Claritin) 10 mg PO DAILY PRN Allergy Symptoms 07/13/22 07/13/22 Previous Rx's Medication Instructions Recorded digoxin 125 mcg (0.125 mg) tablet 0.125 mg PO DAILY #30 tabs 09/11/21 apixaban 5 mg tablet (Eliquis) 5 mg PO BID #60 tabs 09/12/21 albuterol sulfate 90 mcg/actuation 2 puff inhalation Q4-6H PRN 05/05/22 aerosol inhaler (ProAir HFA) shortness of breath or wheezing #8.5 grams theophylline 400 mg 400 mg PO DAILY 30 days #30 tabs 10/21/22 tablet,extended release 24 hr fluticasone fur. 200 mcg-umeclid 1 ea inhalation DAILY #60 ea 11/24/22 62.5 mcg-vilant 25 mcg inhalat.powder (Trelegy Ellipta) cefuroxime axetil 250 mg tablet 250 mg PO BID 7 days #14 tabs 11/28/22 furosemide 20 mg tablet 20 mg PO QPM #30 tabs 01/13/23 nitrofurantoin 100 mg PO BID #14 caps 01/15/23 monohydrate/macrocrystals 100 mg capsule (Macrobid) potassium chloride 10 mEq 10 meq PO DAILY #30 caps 01/15/23 capsule,extended release zolpidem 5 mg tablet (Ambien) 5 mg PO BEDTIME PRN sleep #14 tabs 01/15/23 furosemide 40 mg tablet 40 mg PO QAM 90 days #90 tabs 02/04/23 fosfomycin tromethamine 3 gram 1 packet PO Q OTHER DAY 3 doses #3 02/10/23 oral packet packets Allergies Allergy/AdvReac Type Severity Reaction Status Date / Time No Known Allergies Allergy Verified 01/14/23 17:30 [No Known Allergies*] Review of Systems Review of Systems: Yes all other systems are reviewed and are negative [facility] Past Medical History Onset Date is defined in the Problem List Problems that require an onset date and time if occurred within 24 hrs of arrival to the ED Aortic Dissection and Rupture; Neurologic impairment; Cardiopulmonary Arrest; Endotracheal Intubation; Insertion or Replacement of Mechanical Circulatory Assist Device Medical History Cough Orthopnea Post covid-19 condition, unspecified Constipation Overweight (BMI 25.0-29.9) Malabsorption due to intolerance, not elsewhere classified Paroxysmal A-fib MILY (obstructive sleep apnea) SOB (shortness of breath) Hypertension Anemia Loculated pleural effusion MSSA bacteremia Atrial fibrillation, new onset UTI (urinary tract infection) Hypertension Asthma Surgical History Status post total hip replacement, right History of total replacement of right hip History of bunionectomy Left inguinal hernia History of total right hip arthroplasty History of total left hip arthroplasty S/P laparoscopic sleeve gastrectomy Social History Social History Household Members: Family Household Members Other:: Danny Housing: House Do you presently have visiting nurse or other home services: No Alcohol intake: never Comment: refused bed alarm Patient Tobacco Use Status: Former Tobacco user Quit Date: 1987 Tobacco use type: Cigarette Years Smoked: 16 years Second Hand Smoke Exposure: No Advance Directives: Yes Advance Directives Information Provided: Yes Advance Directives on File: No service: No 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al status: retired 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: Right Handed Physical Exam ED Vital Signs: Vital Signs - 24 hr 02/10/23 14:54 Temperature 98.0 F Pulse Rate 72 Respiratory Rate 20 Blood Pressure 152/54 H Pulse Oximetry 96 Oxygen Delivery Method Room Air BMI result Body Mass Index 25.2 Const Other: Patient was awake and alert. She was wearing a postsurgical orthopedic sling on her left arm she does not seem in obvious discomfort or respiratory distress. She was not cooperative with giving history or allowing any significant investigations. HENMT Other: The face is symmetrical. Mucous membranes are moist. Eyes Other: Pupils were round equal, conjunctivae clear, extraocular movements grossly intact. Neck Other: No apparent JVD. No neck swelling. Moving her neck easily. Resp Other: Lung seemed fairly clear bilaterally. No definite wheezes or crackles. No increased work of breathing. Cardio Other: The patient had a regular rate and rhythm with no murmur. GI Other: The abdomen was soft and nontender. Skin Other: Skin was dry and unremarkable. Neuro Other: The patient was awake and alert. She seemed reasonably well oriented. Eye movements seemed intact. Face seemed symmetrical. Speech was without aphasia or dysarthria. She moves her extremities symmetrically. She did not have an obvious focal neurological deficit. Extrem Other: The patient's left arm was in a sling but she seemed to move the left arm fairly well. She had no peripheral edema or calf swelling or asymmetry or tenderness. Psych Other: Patient was reasonably well groomed. She was recently well oriented but she seemed surprisingly uncooperative and contrary. She made passive aggressive statements and I had trouble engaging her as to why she had called the ambulance and why, having come to the emergency room, she was so unwilling to have any evaluation done here. She seemed to have some degree of paranoia in her thinking. Medical Decision Making Medical Decision Making MDM Narrative: The patient is a 72-year-old woman who arrived by ambulance after having called 911 herself with vague complaints of feeling unwell after receiving vaccinations 3 or 4 days ago. Paramedics had concerned that the patient's 12 lead EKG in the ambulance showed a STEMI. The patient had refused to be taken to [facility]. A 12 lead EKG was done immediately in the emergency room that shows a left bundle branch block but which I do not feel is significantly different from the patient's previous EKG and I think it is unlikely that the patient is having a STEMI. Beyond that the patient almost immediately became very uncooperative and insisted on being discharged. However stating her intention to be discharged she did not really have any way of leaving the hospital and although she had her cellphone she did not seem either able or willing to contact anyone who could pick her up. Ultimately I contacted her and both of her daughters. Ultimately the and 1 of the daughters came to the emergency room. The daughters and were unable to convince the patient to allow any additional testing in the emergency room (although she had submitted a urinalysis, she refused phlebotomy or x-rays). The patient's behavior seemed odd to me and whether this represents early dementia or possibly the manifestation of some underlying psychiatric condition was not entirely clear to me. The patient is not suicidal or homicidal. She continued to ask be discharged. The patient had submitted a urinalysis that was distinctly abnormal. I reviewed previous records. Previous urine cultures have shown growth of Enterococcus faecalis, both in November and early January of 2023. Most recently she was put on a course of nitrofurantoin on January 15 when she was last seen in the emergency room here. Neither the patient nor the patient's seemed aware that she had grown bacteria in her urine of the significantly resistant strain of bacteria. The patient's was concerned that the patient's behavioral changes might be the reflection of urinary tract infection. The patient's vital signs did not suggest a significant systemic infection and we were unable to obtain labs because of the patient's refusal of phlebotomy. The patient's and daughter were concerned that we were not doing more testing on the patient. I explained we could not do any additional testing without the patient's consent or without the patient being judged to lack capacity to make medical decisions. Ultimately the felt that he would like to take patient home as long as she was going to be treated for urinary tract infection in case her demeanor might improve with treatment. Therefore the patient was ultimately discharged on a course of fosfomycin. I explained to the patient and her that it was very important that they follow up both with the patient's PCP and urologist given these recurrent UTIs and the resistant nature the patient's organisms. Lab Data Labs: Lab Results 02/10/23 02/10/23 Range/Units 12:02 14:57 Urine Color Yellow Urine Appearance Cloudy Urine pH 7.0 (5.0-9.0) Ur Specific [place] 1.010 (1.005-1.025) Urine Protein Negative (Neg-Trace) mg/dL Urine Glucose (UA) Negative (Negative) mg/dL Urine Ketones Negative (Negative) mg/dL Urine Blood Small (1+) H (Negative) Urine Nitrite Negative (Negative) Ur Leukocyte Esterase Large (3+) H (Negative) Urine RBC 0-2 (0-2) /HPF Urine WBC >50 H (0-5) /HPF Ur Squamous Epith Cells 0-2 (0-2) /HPF Urine Bacteria 2+ (None Seen) Hyaline Casts 0-2 (0-2) /LPF Influenza Type A (PCR) NEGATIVE (Negative) Influenza Type B (PCR) NEGATIVE (Negative) RSV RNA Qual (PCR) NEGATIVE (Negative) SARS-CoV-2 RNA (RT-PCR) NEGATIVE (Negative) Discharge Plan Discharge Clinical Impression: Urinary tract infection Patient Disposition: Home, Self-Care Additional Instructions: You may have another urinary tract infection. Since your previous urinary tract infections were caused by a bacteria with multiple drug resistances I have prescribed the antibiotic called fosfomycin which is unusual in terms of dosing. Please hand picker the prescription today and take a dose today. Take the other doses every other day. Therefore take a dose today, on Thursday, next dose , and last dose on Thursday. In the meantime it is very important you make a follow-up appointment with your primary care doctor and your urologist to discuss these recurrent urinary infections and the fact that the cultures have grown resistant organisms (in this case Enterococcus faecalis). Is significantly worse at any time please return to the emergency department. Prescriptions: New fosfomycin tromethamine 3 gram packet 1 packet PO Q OTHER DAY Qty: 3 0RF No Action albuterol sulfate [ProAir HFA] 90 mcg/actuation HFA aerosol inhaler 2 puff inhalation Q4-6H PRN (Reason: shortness of breath or wheezing) Qty: 8.5 6RF Trelegy Ellipta 200-62.5-25 mcg blister with device 1 ea inhalation DAILY Qty: 60 6RF furosemide 20 mg tablet 20 mg PO QPM Qty: 30 0RF furosemide 40 mg tablet 40 mg PO QAM 90 Days Qty: 90 3RF digoxin 125 mcg (0.125 mg) Tablet 0.125 mg PO DAILY Qty: 30 0RF Eliquis 5 mg Tablet 5 mg PO BID Qty: 60 0RF fluticasone propionate 50 mcg/actuation spray,suspension 1 spray intranasal BID PRN (Reason: Allergy Symptoms) loratadine [Claritin] 10 mg Tablet 10 mg PO DAILY PRN (Reason: Allergy Symptoms) cefuroxime axetil 250 mg tablet 250 mg PO BID 7 Days Qty: 14 0RF diltiazem HCl 360 mg capsule,extended release 24hr 360 mg PO DAILY lamotrigine 100 mg tablet 100 mg PO BEDTIME nitrofurantoin monohyd/m-cryst [Macrobid] 100 mg capsule 100 mg PO BID Qty: 14 0RF Rx Instructions: must administer with a meal/food zolpidem [Ambien] 5 mg tablet 5 mg PO BEDTIME PRN (Reason: sleep) Qty: 14 0RF potassium chloride 10 mEq capsule, extended release 10 meq PO DAILY Qty: 30 0RF pantoprazole 40 mg tablet,delayed release (DR/EC) 40 mg PO DAILY bupropion HCl [Wellbutrin SR] 200 mg tablet sustained-release 12 hr 200 mg PO BID@0900,1300 montelukast 10 mg tablet 10 mg PO DAILY lamotrigine 200 mg tablet 200 mg PO DAILY oxybutynin chloride 10 mg tablet extended release 24hr 10 mg PO DAILY theophylline 400 mg tablet extended release 24 hr 400 mg PO DAILY 30 Days Qty: 30 6RF Discharge Date/Time: 02/10/23 15:00
== END 2023-02-10 15:00 | disposition home or self-care (01) ==
PROVIDERS: Emergency Provider Emergency Medicine; PCP Internal Medicine
DX: N39.0 Urinary tract infection, site not specified (principal); I44.7 Left bundle-branch block, unspecified; Z20.822 Contact with and (suspected) exposure to COVID-19; Z20.828 Contact with and (suspected) exposure to other viral communicable diseases; I10 Essential (primary) hypertension; I48.0 Paroxysmal atrial fibrillation; Z87.891 Personal history of nicotine dependence; Z87.440 Personal history of urinary (tract) infections; Z79.01 Long term (current) use of anticoagulants; Z79.899 Other long term (current) drug therapy
CPT/HCPCS: 0241U; 71045; 81001; 87086; 87088; 87186; 93005; 99283

== ENCOUNTER → 2023-02-10 11:08 | Outpatient (BNV) | payer MEDICARE, SELFPAY | PROVIDERS: Emergency Provider Emergency Medicine; PCP Internal Medicine; Visit Provider Internal Medicine Cardiovascular Disease | DX: I44.0 Atrioventricular block, first degree (principal); R94.31 Abnormal electrocardiogram [ECG] [EKG] | CPT/HCPCS: 93010 ==

== ENCOUNTER 2023-05-22 13:13 | Outpatient (AMB) | payer MEDICARE, SELFPAY ==
[2023-05-22 13:19] VITALS: BP 122/62; PULSE 65; O2SAT 98; BMI 23.6
--- NOTE | 2023-05-22 13:19 | MHC.OFFVIS ---
Intake Vital Signs 05/22/23 13:19 Height 5 ft 3 in Weight 133 lb BMI 23.6 BP 122/62 Blood Pressure Location Rt brachial Position Sitting Pulse 65 Pulse Source Doppler Pulse Oximetry (%) 98 Oxygen Delivery Method Room Air Intake Visit Reasons: BOURGEOIS Allergies No Known Allergies [No Known Allergies*] Allergy (Verified 01/14/23 17:30) HPI BOURGEOIS HPI Details 72-year-old lady, former 15 pack-year smoker, quit 1986, with underlying history of asthma and hypertension and recent international travel admitted on 08/24/2021 with cough, myalgias, AFib with RVR secondary to COVID-19 with MSSA pneumonia superinfection, complicated by left-sided loculated pleural effusion status post chest tube placement and chemical decortication with significant improvement.? She follows with [facility], now with good rate. She has been using trilogy, theophylline, and albuterol MDI with good control of his symptoms. She denies recent exacerbations. [facility] Medical History Cough Orthopnea Post covid-19 condition, unspecified Constipation Overweight (BMI 25.0-29.9) Malabsorption due to intolerance, not elsewhere classified Paroxysmal A-fib MILY (obstructive sleep apnea) SOB (shortness of breath) Hypertension Anemia Loculated pleural effusion MSSA bacteremia Atrial fibrillation, new onset UTI (urinary tract infection) Hypertension Asthma Surgical History Status post total hip replacement, right History of total replacement of right hip History of bunionectomy Left inguinal hernia History of total right hip arthroplasty History of total left hip arthroplasty S/P laparoscopic sleeve gastrectomy Social History Household Members: Family Household Members Other:: Danny Housing: House Do you presently have visiting nurse or other home services: No Alcohol intake: never Comment: refused bed alarm Patient Tobacco Use Status: Former Tobacco user Quit Date: 1987 Tobacco use type: Cigarette Years Smoked: 16 years Second Hand Smoke Exposure: No service: No 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al status: retired 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 of Systems Const Denies daytime sleepiness, Denies excessive sweating, Denies fatigue, Denies fever(s), Denies lethargy, Denies malaise, Denies night sweats, Denies snoring and Denies weight loss Eyes Denies blurry vision and Denies itchy eyes ENT Denies nasal congestion, Denies post nasal drip, Denies sinus pain, Denies sinus pressure and Denies other ( Thrush) Card Denies chest pain, Denies pedal edema, Denies dyspnea, Denies orthopnea and Denies paroxysmal nocturnal dyspnea Resp Denies cough, Denies hemoptysis, Denies excessive phlegm production, Denies dyspnea, Denies snoring and Denies wheezing GI Denies abdominal pain and Denies heartburn Musc Denies myalgias, Denies arthralgias and Denies joint swelling Skin/Breast Denies rash Neuro Denies memory loss and Denies seizure-like activity Psych Denies abnormal sleep pattern, Denies anxiety and Denies memory loss Endo Denies excessive sweating, Denies fatigue and Denies heat intolerance Micah/Lymph Denies easy bruising Aller/Immun Denies itchy eyes, Denies seasonal rhinorrhea and Denies wheezing Physical Exam Vital Signs: Last Vital Signs Pulse 65 05/22/23 13:19 BP 122/62 05/22/23 13:19 Pulse Ox 98 05/22/23 13:19 Oxygen Delivery Method Room Air 05/22/23 13:19 BMI result Body Mass Index 23.6 Const General: no acute distress and alert Nutritional Appearance: not obese Orientation/consciousness: Other orientation findings ( oriented) HEENT Head: Yes atraumatic Eyes General: appearance normal, both eyes and all related structures Sclerae: sclerae normal EOM: EOMs intact bilaterally Neck Neck: Yes supple Lymphatic: no lymphadenopathy noted Resp Effort & Inspection: normal respiratory effort and no use of accessory muscles Auscultation: clear to auscultation bilaterally Cardio Rate: regular rate Rhythm: regular rhythm Heart sounds: no gallops, no murmurs and no rubs Skin General skin exam: other ( warm) Extrem General: No clubbing, No cyanosis and No edema Assessment & Plan Assessment & Plan (1) BOURGEOIS (dyspnea on exertion): Code(s): R06.09 - Other forms of dyspnea Plan: Well controlled on current regimen of Trelegy, theophylline, albuterol MDI. Continue current regimen. (2) Environmental allergies: Code(s): Z91.09 - Other allergy status, other than to drugs and biological substances Plan: Now with seasonal worsening of underlying allergies. Continue Singulair. Will add nasal ipratropium. Coding Level of Care Code Est Pt Level 4 (69852) Diagnoses BOURGEOIS (dyspnea on exertion) R06.09 Environmental allergies Z91.09
== END 2023-05-22 13:37 | disposition home or self-care (01) ==
PROVIDERS: PCP Internal Medicine; Visit Provider Internal Medicine Pulmonary Disease
DX: R06.09 Other forms of dyspnea (principal); Z91.09 Other allergy status, other than to drugs and biological substances
CPT/HCPCS: 99214

== ENCOUNTER → 2023-05-22 13:13 | Outpatient (BNVA) | payer MEDICARE, SELFPAY | PROVIDERS: PCP Internal Medicine; Visit Provider Internal Medicine Pulmonary Disease | DX: R06.09 Other forms of dyspnea (principal); Z91.09 Other allergy status, other than to drugs and biological substances | CPT/HCPCS: 99212 ==

== ENCOUNTER 2023-06-26 14:12 | Outpatient (AMB) | payer MEDICARE, SELFPAY ==
--- NOTE | 2023-06-26 14:13 | A.OFFVIS_ITS ---
Vital Signs 06/26/23 14:14 Height 5 ft 3 in Weight 138 lb 2 oz BMI 24.5 BP 120/68 Blood Pressure Location Lt brachial Position Sitting Pulse 75 Pulse Source Pulse Oximeter Pulse Oximetry (%) 96 Oxygen Delivery Method Room Air Intake Visit Reasons: congested cough Allergies No Known Allergies [No Known Allergies*] Allergy (Verified 06/26/23 14:17) HPI HPI congested cough: Details: Shilpa Boyer is a pleasant 72-year-old female, former 15 pack-year smoker, quit 1986, with underlying history of asthma and hypertension and h/o AFib with RVR secondary to COVID-19 with MSSA pneumonia superinfection, complicated by left- sided loculated pleural effusion status post chest tube placement and chemical decortication with significant improvement in 2021.? She follows with [facility], now with good rate. She has been using Trelegy, theophylline, and albuterol MDI with moderate control of symptoms. Today she presents for an acute visit. She reports progressively worsening wheezing, dyspnea, chest congestion with difficulty expectorating and chest tightness over the last month. She denies any fevers, chills or sick contacts. [facility] Medical History (Updated 06/26/23 @ 15:05 by Joselin Padilla LPN) Cough Orthopnea Post covid-19 condition, unspecified Constipation Overweight (BMI 25.0-29.9) Malabsorption due to intolerance, not elsewhere classified Paroxysmal A-fib MILY (obstructive sleep apnea) SOB (shortness of breath) Hypertension Anemia Loculated pleural effusion MSSA bacteremia Atrial fibrillation, new onset UTI (urinary tract infection) Hypertension Asthma Surgical History Status post total hip replacement, right History of total replacement of right hip History of bunionectomy Left inguinal hernia History of total right hip arthroplasty History of total left hip arthroplasty S/P laparoscopic sleeve gastrectomy Social History Household Members: Family Household Members Other:: Danny Housing: House Do you presently have visiting nurse or other home services: No Alcohol intake: never Comment: refused bed alarm Patient Tobacco Use Status: Former Tobacco user Quit Date: 1987 Tobacco use type: Cigarette Years Smoked: 16 years Second Hand Smoke Exposure: No service: No 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al status: retired 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 of Systems Const Denies chills, Denies excessive sweating, Denies fever(s), Denies headache(s) and Denies night sweats Eyes Denies dry eyes, Denies irritation and Denies itchy eyes ENT Reports Normal hearing present, Denies headache(s), Denies nasal congestion, Denies nasal discharge and Denies sore throat Card Denies chest pain, Denies chest pain at rest, Denies chest pain with activity, Denies claudication, Denies leg edema, Denies orthopnea and Denies paroxysmal nocturnal dyspnea Resp Denies excessive phlegm production, Denies pain on inspiration, Denies pain with cough and Denies stridor Musc Denies myalgias Neuro Reports Normal hearing present and Denies headache(s) Endo Denies excessive sweating Micah/Lymph Denies lymphadenopathy Aller/Immun Denies itchy eyes and Denies seasonal rhinorrhea Physical Exam Vital Signs: Last Vital Signs Pulse 75 06/26/23 14:14 BP 120/68 06/26/23 14:14 Pulse Ox 96 06/26/23 14:14 Oxygen Delivery Method Room Air 06/26/23 14:14 BMI result Body Mass Index 24.5 Const General: cooperative, healthy appearing, comfortable, no acute distress, well developed and alert Orientation/consciousness: patient oriented x3 Limitations: no limitations HEENT Head: Yes normal to inspection, Yes normocephalic and Yes atraumatic Ears: hearing grossly normal bilaterally and external ears normal Eyes General: appearance normal, both eyes and all related structures Eyelids: Yes eyelids normal Sclerae: sclerae normal EOM: EOMs intact bilaterally Neck Neck: Yes normal visual inspection and Yes no lymphadenopathy Lymphatic: no lymphadenopathy noted Chest Chest palpation & inspection: normal inspection of the chest Resp Other: faint expiratory wheezes throughout, no crackles appreciated Effort & Inspection: normal respiratory effort, able to speak in complete sentences, no audible wheezes, no cough, no stridor, not tachypneic, no tripod positioning and no use of accessory muscles Cardio Jugular venous distension: no JVD Rate: regular rate Rhythm: regular rhythm Skin Other: warm, dry General skin exam: no rashes or lesions noted Neuro General: patient oriented x3 Cranial nerves: Yes Normal hearing present Cognition (Neuro): normal cognition Gait exam (Neuro): Normal gait present Extrem General: Yes normal to inspection, Yes capillary refill normal, Yes no clubbing, cyanosis or edema and Yes no pedal edema Psych Appearance: grossly normal and well kempt Speech and movement: Normal speech and movement present and Clear speech present Affect: normal affect Attitude: cooperative Thought process: Normal thought process present Thought content: Normal thought content present Insight: Good insight present (Psych) Judgement: Good judgement present (Psych) Office Procedures Nebulizer Treatment Nebulizer Treatment 41797-Cawppblwr/MDI RX initial, or Nebulizer Subsequent Treatment Office Meds ipratropium 0.5 mg-albuterol 3 mg (2.5 mg base)/3 mL nebulization soln Performing Provider: Marlena Perez NP Performing Location: [facility] Administered by: Joselin Padilla LPN on 06/26/23 15:08 Dose Route Admin Location Dispensed Lot Number Expiration Date NDC Carbonizer 3 mL inhalation 3 mL [id number] 12/09/24 60401-703-26 [employer] Assessment & Plan Assessment & Plan (1) Asthma: Code(s): J45.909 - Unspecified asthma, uncomplicated Category: Medical (2) Environmental allergies: Code(s): Z91.09 - Other allergy status, other than to drugs and biological substances Category: Medical (3) BOURGEOIS (dyspnea on exertion): Code(s): R06.09 - Other forms of dyspnea Category: Medical Plan Will treat bronchitic symptoms with doxycyline and prednisone. If patient no better in the next few days, will send for CXR. Order entered. She is aware to seek emergent care if symptoms worsen. All questions were answered and patient is in agreement of plan. Will follow up with Dr. Coffey for regularly scheduled appointment or sooner if needed. Orders: Orders AMB Nebulizer Treatment 06/26/23 J45.909 - Unspecified asthma, uncomplicated XR chest 2V Today R05.9 - Cough, unspecified Medications: New doxycycline hyclate 100 mg PO BID 14 caps 0RF prednisone see taper instructions; 40 mg Daily x3 days, 30 mg daily x3 days, 20 mg daily x3 days, 10 mg daily x3 days 10 mg PO DIRECTED 30 tabs 0RF albuterol sulfate 2.5 mg (3 mL) inhalation Q4-6H PRN 90 mL 0RF shortness of breath or wheezing Coding Level of Care Code Est Pt Level 4 (79102) Diagnoses Asthma J45.909 Environmental allergies Z91.09 BOURGEOIS (dyspnea on exertion) R06.09 CPT Codes Nebulizer Treatment - Nebulizer Treatment, initial or subsequent: [id number] ulizer/MDI RX initial, or Nebulizer Subsequent Treatment ([id number])
[2023-06-26 14:14] VITALS: BP 120/68; PULSE 75; O2SAT 96; BMI 24.5
== END 2023-06-26 15:05 | disposition home or self-care (01) ==
PROVIDERS: PCP Internal Medicine; Visit Provider Nurse Practitioner Family
DX: J45.909 Unspecified asthma, uncomplicated (principal); Z91.09 Other allergy status, other than to drugs and biological substances; R06.09 Other forms of dyspnea
CPT/HCPCS: 99214

== ENCOUNTER → 2023-06-26 14:12 | Outpatient (BNVA) | payer MEDICARE, SELFPAY | PROVIDERS: PCP Internal Medicine; Visit Provider Nurse Practitioner Family | DX: J45.909 Unspecified asthma, uncomplicated (principal); R06.09 Other forms of dyspnea; Z91.09 Other allergy status, other than to drugs and biological substances | CPT/HCPCS: 94640; 99212 ==

== ENCOUNTER 2023-09-30 13:37 | Outpatient (AMB) | payer MEDICARE, SELFPAY ==
[2023-09-24 15:56] VITALS: BMI 25.2
[2023-09-30 13:38] VITALS: BP 130/82; PULSE 78; O2SAT 100; BMI 22.0
--- NOTE | 2023-09-30 13:38 | A.OFFVIS_ITS ---
Vital Signs 09/30/23 13:38 Height 5 ft 2 in Weight 120 lb 4 oz BMI 22.0 BP 130/82 Blood Pressure Location Rt brachial Position Sitting Pulse 78 Pulse Source Pulse Oximeter Pulse Oximetry (%) 100 Oxygen Delivery Method Room Air Intake Visit Reasons: BOURGEOIS/[facility] K Surgery Allergies No Known Allergies [No Known Allergies*] Allergy (Verified 09/30/23 13:42) HPI HPI BOURGEOIS/[facility] K Surgery: Details: Shilpa Boyer is a pleasant 72-year-old female, former 15 pack-year smoker, quit 1986, with underlying history of asthma and hypertension and h/o AFib with RVR secondary to COVID-19 with MSSA pneumonia superinfection, complicated by left- sided loculated pleural effusion status post chest tube placement and chemical decortication with significant improvement in 2021.? At baseline she has been using Trelegy, theophylline, and albuterol MDI with moderate control of symptoms. She is under the care of Dr. Coffey and presents today for an acute visit. She reports having worsening control of asthma requiring two steroid bursts over the last two months, last course finished 1 week ago. She attributes exacerbations to the heat and humidity. Today she reports good control of symptoms. Of note, she has an upcoming left total knee replacement with [facility] on 10/16/23 Dr Riggs. There was no formal request for pulmonary evaluation from [facility]. [facility] Medical History (Updated 08/18/23 @ 14:30 by ANIYA Smith) Hx of uterine prolapse Arthritis Hx of transfusion of packed red blood cells GERD (gastroesophageal reflux disease) Anxiety Depression History of cardioversion Paroxysmal A-fib MILY (obstructive sleep apnea) SOB (shortness of breath) Anemia Cough Orthopnea Post covid-19 condition, unspecified Loculated pleural effusion MSSA bacteremia Atrial fibrillation, new onset Constipation Overweight (BMI 25.0-29.9) UTI (urinary tract infection) Hypertension Asthma Malabsorption due to intolerance, not elsewhere classified Surgical History (Updated 07/31/23 @ 12:28 by Rochelle Paz RN) Hx of total shoulder replacement History of esophagogastroduodenoscopy (EGD) H/O colonoscopy History of total replacement of right hip History of bunionectomy Left inguinal hernia History of total right hip arthroplasty S/P laparoscopic sleeve gastrectomy Social History Household Members: Family Household Members Other:: Danny Housing: House Are you a primary progressive care manager to a significant other at home: No Do you presently have visiting nurse or other home services: No Alcohol intake: never Comment: refused bed alarm Patient Tobacco Use Status: Former Tobacco user Tobacco use type: Cigarette Years Smoked: 16 years Second Hand Smoke Exposure: No service: No 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al status: retired 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 of Systems Const Denies chills, Denies excessive sweating, Denies fever(s), Denies headache(s) and Denies night sweats Eyes Denies dry eyes, Denies irritation and Denies itchy eyes ENT Reports Normal hearing present, Denies headache(s), Denies nasal congestion, Denies nasal discharge and Denies sore throat Card Denies chest pain, Denies chest pain at rest, Denies chest pain with activity, Denies claudication, Denies leg edema, Denies orthopnea and Denies paroxysmal nocturnal dyspnea Resp Denies excessive phlegm production, Denies pain on inspiration, Denies pain with cough and Denies stridor Musc Denies myalgias Neuro Reports Normal hearing present and Denies headache(s) Endo Denies excessive sweating Micah/Lymph Denies lymphadenopathy Aller/Immun Denies itchy eyes and Denies seasonal rhinorrhea Physical Exam Vital Signs: Last Vital Signs Pulse 78 09/30/23 13:38 BP 130/82 09/30/23 13:38 Pulse Ox 100 09/30/23 13:38 Oxygen Delivery Method Room Air 09/30/23 13:38 BMI result Body Mass Index 22.0 Const General: cooperative, healthy appearing, comfortable, no acute distress, well developed and alert Orientation/consciousness: patient oriented x3 Limitations: no limitations HEENT Head: Yes normal to inspection, Yes normocephalic and Yes atraumatic Ears: hearing grossly normal bilaterally and external ears normal Eyes General: appearance normal, both eyes and all related structures Eyelids: Yes eyelids normal Sclerae: sclerae normal EOM: EOMs intact bilaterally Neck Neck: Yes normal visual inspection and Yes no lymphadenopathy Lymphatic: no lymphadenopathy noted Chest Chest palpation & inspection: normal inspection of the chest Resp Effort & Inspection: normal respiratory effort, able to speak in complete sentences, no audible wheezes, no cough, no stridor, not tachypneic, no tripod positioning and no use of accessory muscles Auscultation: diminished lung sounds Cardio Jugular venous distension: no JVD Rate: regular rate Rhythm: regular rhythm Skin Other: warm, dry General skin exam: no rashes or lesions noted Neuro General: patient oriented x3 Cranial nerves: Yes Normal hearing present Cognition (Neuro): normal cognition Gait exam (Neuro): Normal gait present Extrem General: Yes normal to inspection, Yes capillary refill normal, Yes no clubbing, cyanosis or edema and Yes no pedal edema Psych Appearance: grossly normal and well kempt Speech and movement: Normal speech and movement present and Clear speech present Affect: normal affect Attitude: cooperative Thought process: Normal thought process present Thought content: Normal thought content present Insight: Good insight present (Psych) Judgement: Good judgement present (Psych) Assessment & Plan Assessment & Plan (1) Asthma: Code(s): J45.909 - Unspecified asthma, uncomplicated Category: Medical (2) Environmental allergies: Code(s): Z91.09 - Other allergy status, other than to drugs and biological substances Category: Medical (3) BOURGEOIS (dyspnea on exertion): Code(s): R06.09 - Other forms of dyspnea Category: Medical Plan At this time Shilpa Boyer reports symptoms are well controlled, advised to continue current regimen. If symptoms worsen, will call office and consider changes to treatment regimen. In regards to upcoming surgery, will schedule spirometry next week in the case that [facility] requests perioperative evaluation. A ll questions were answered and patient is in agreement of plan. Will follow up with Dr. Coffey for regularly scheduled appointment or sooner if needed. Coding Level of Care Code Est Pt Level 3 (78312) Diagnoses Asthma J45.909 Environmental allergies Z91.09 BOURGEOIS (dyspnea on exertion) R06.09
== END 2023-09-30 14:20 | disposition home or self-care (01) ==
PROVIDERS: PCP Internal Medicine; Visit Provider Nurse Practitioner Family
DX: J45.909 Unspecified asthma, uncomplicated (principal); Z91.09 Other allergy status, other than to drugs and biological substances; R06.09 Other forms of dyspnea
CPT/HCPCS: 99213

== ENCOUNTER → 2023-09-30 13:37 | Outpatient (BNVA) | payer MEDICARE, SELFPAY ==
[2023-09-24 15:56] VITALS: BMI 25.2
== END ==
PROVIDERS: PCP Internal Medicine; Visit Provider Nurse Practitioner Family
DX: J45.909 Unspecified asthma, uncomplicated (principal); I10 Essential (primary) hypertension; R06.09 Other forms of dyspnea; Z91.09 Other allergy status, other than to drugs and biological substances; Z87.891 Personal history of nicotine dependence
CPT/HCPCS: 99212

== ENCOUNTER 2023-10-09 10:48 | Outpatient (AMB) | payer MEDICARE, SELFPAY ==
[2023-09-24 15:56] VITALS: BMI 25.2
--- NOTE | 2023-10-09 11:14 | A.OFFVIS_ITS ---
Vital Signs 10/09/23 11:14 Height 52 ft Weight 119 lb 0.794 oz BMI 0.2 Intake Visit Reasons: Spirometry Allergies No Known Allergies [No Known Allergies*] Allergy (Verified 10/09/23 11:14) Medication List - Last Reconciled 10/09/23 by Liz Mireles LPN albuterol sulfate 90 mcg/actuation (ProAir HFA) 2 puffs inhalation Q4-6H PRN amiodarone 400 mg PO BID apixaban (Eliquis) 5 mg PO BID bisacodyl (Dulcolax (bisacodyl)) 10 mg SC DAILY PRN bupropion HCl SR (Wellbutrin SR) 200 mg PO BID@0900,1300 fluticasone propionate 50 mcg/actuation 1 spray intranasal BID PRN tzamplhqzbp-ftblyjxhx-iroqqudm 200-62.5-25 mcg (Trelegy Ellipta) 1 ea inhalation DAILY furosemide 40 mg PO QAM lamotrigine 200 mg PO DAILY loratadine (Claritin) 10 mg PO DAILY PRN oxybutynin chloride ER 10 mg PO DAILY pantoprazole 40 mg PO DAILY theophylline ER 400 mg PO DAILY 30 days [facility] Medical History (Updated 08/18/23 @ 14:30 by ANIYA Smith) Hx of uterine prolapse Arthritis Hx of transfusion of packed red blood cells GERD (gastroesophageal reflux disease) Anxiety Depression History of cardioversion Paroxysmal A-fib MILY (obstructive sleep apnea) SOB (shortness of breath) Anemia Cough Orthopnea Post covid-19 condition, unspecified Loculated pleural effusion MSSA bacteremia Atrial fibrillation, new onset Constipation Overweight (BMI 25.0-29.9) UTI (urinary tract infection) Hypertension Asthma Malabsorption due to intolerance, not elsewhere classified Surgical History (Updated 07/31/23 @ 12:28 by Rochelle Paz RN) Hx of total shoulder replacement History of esophagogastroduodenoscopy (EGD) H/O colonoscopy History of total replacement of right hip History of bunionectomy Left inguinal hernia History of total right hip arthroplasty S/P laparoscopic sleeve gastrectomy Social History Household Members: Family Household Members Other:: Danny Housing: House Are you a primary health careers instructor to a significant other at home: No Do you presently have visiting nurse or other home services: No Alcohol intake: never Comment: refused bed alarm Patient Tobacco Use Status: Former Tobacco user Tobacco use type: Cigarette Years Smoked: 16 years Second Hand Smoke Exposure: No service: No 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al status: retired 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: Right Handed Physical Exam Vital Signs: BMI result Body Mass Index 0.2 Office Procedures Spirometry Testing Spirometry Comments: Spirometry done in the office, results to Marlena Perez NP results scanned to her chart. 28245- Spirometry Assessment & Plan Assessment & Plan (1) Asthma: Code(s): J45.909 - Unspecified asthma, uncomplicated Category: Medical Plan: pt seen for nurse's visit for spirometry Orders: Orders AMB Spirometry Testing Today J45.909 - Unspecified asthma, uncomplicated Coding Level of Care Code Established Pt Est Pt Level 1 (91183) Patient Type Established Diagnoses Asthma J45.909 CPT Codes Spirometry - CPT: 43938- Spirometry ([id number]) Comment NURSE VISIT ONLY
== END 2023-10-09 11:02 | disposition home or self-care (01) ==
PROVIDERS: PCP Internal Medicine; Visit Provider Nurse Practitioner Family
DX: J45.909 Unspecified asthma, uncomplicated (principal)
CPT/HCPCS: 94010

== ENCOUNTER → 2023-10-09 10:48 | Outpatient (BNVA) | payer MEDICARE, SELFPAY ==
[2023-09-24 15:56] VITALS: BMI 25.2
== END ==
PROVIDERS: PCP Internal Medicine; Visit Provider Nurse Practitioner Family
DX: J45.909 Unspecified asthma, uncomplicated (principal)
CPT/HCPCS: 94010; 99211

== ENCOUNTER 2023-11-26 13:03 | Outpatient (AMB) | payer MEDICARE, SELFPAY ==
[2023-09-24 15:56] VITALS: BMI 25.2
[2023-11-26 13:06] VITALS: BP 119/67; PULSE 71; O2SAT 96; BMI 22.8
--- NOTE | 2023-11-26 13:06 | MHC.OFFVIS ---
Vital Signs 11/26/23 13:06 Height 5 ft 2 in Weight 124 lb 8 oz BMI 22.8 BP 119/67 Blood Pressure Location Rt brachial Position Sitting Pulse 71 Pulse Source Doppler Pulse Oximetry (%) 96 Oxygen Delivery Method Room Air Intake Visit Reasons: BOURGEOIS Allergies No Known Allergies [No Known Allergies*] Allergy (Verified 11/26/23 13:13) HPI HPI BOURGEOIS: Details: 73-year-old lady, former 15 pack-year smoker, quit 1986, with underlying history of asthma and hypertension and prior MSSA pneumonia complicated by loculated effusion status post chest tube with successful chemical decortication, now followed for asthma/COPD and dyspnea on exertion. Patient has been using trilogy and albuterol MDI with good control of his symptoms. She denies recent exacerbations. She continues to undergo workup of underlying AFib with possible ablation. [facility] Medical History (Updated 08/18/23 @ 14:30 by ANIYA Smith) Hx of uterine prolapse Arthritis Hx of transfusion of packed red blood cells GERD (gastroesophageal reflux disease) Anxiety Depression History of cardioversion Paroxysmal A-fib MILY (obstructive sleep apnea) SOB (shortness of breath) Anemia Cough Orthopnea Post covid-19 condition, unspecified Loculated pleural effusion MSSA bacteremia Atrial fibrillation, new onset Constipation Overweight (BMI 25.0-29.9) UTI (urinary tract infection) Hypertension Asthma Malabsorption due to intolerance, not elsewhere classified Surgical History (Updated 07/31/23 @ 12:28 by Rochelle Paz RN) Hx of total shoulder replacement History of esophagogastroduodenoscopy (EGD) H/O colonoscopy History of total replacement of right hip History of bunionectomy Left inguinal hernia History of total right hip arthroplasty S/P laparoscopic sleeve gastrectomy Social History Household Members: Family Household Members Other:: Danny Housing: House Are you a primary skin care technician to a significant other at home: No Do you presently have visiting nurse or other home services: No Alcohol intake: never Comment: refused bed alarm Patient Tobacco Use Status: Former Tobacco user Tobacco use type: Cigarette Years Smoked: 16 years Second Hand Smoke Exposure: No service: No 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al status: retired 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 of Systems Const Denies daytime sleepiness, Denies excessive sweating, Denies fatigue, Denies fever(s), Denies lethargy, Denies malaise, Denies night sweats, Denies snoring and Denies weight loss Eyes Denies blurry vision and Denies itchy eyes ENT Denies nasal congestion, Denies post nasal drip, Denies sinus pain, Denies sinus pressure and Denies other ( Thrush) Card Denies chest pain, Denies pedal edema, Denies dyspnea, Denies orthopnea and Denies paroxysmal nocturnal dyspnea Resp Denies cough, Denies hemoptysis, Denies excessive phlegm production, Denies dyspnea, Denies snoring and Denies wheezing GI Denies abdominal pain and Denies heartburn Musc Denies myalgias, Denies arthralgias and Denies joint swelling Skin/Breast Denies rash Neuro Denies memory loss and Denies seizure-like activity Psych Denies abnormal sleep pattern, Denies anxiety and Denies memory loss Endo Denies excessive sweating, Denies fatigue and Denies heat intolerance Micah/Lymph Denies easy bruising Aller/Immun Denies itchy eyes, Denies seasonal rhinorrhea and Denies wheezing Physical Exam Vital Signs: Last Vital Signs Pulse 71 11/26/23 13:06 BP 119/67 11/26/23 13:06 Pulse Ox 96 11/26/23 13:06 Oxygen Delivery Method Room Air 11/26/23 13:06 BMI result Body Mass Index 22.8 Const General: no acute distress and alert Nutritional Appearance: not obese Orientation/consciousness: Other orientation findings ( oriented) HEENT Head: Yes atraumatic Eyes General: appearance normal, both eyes and all related structures Sclerae: sclerae normal EOM: EOMs intact bilaterally Neck Neck: Yes supple Lymphatic: no lymphadenopathy noted Resp Effort & Inspection: normal respiratory effort and no use of accessory muscles Auscultation: clear to auscultation bilaterally Cardio Rate: regular rate Rhythm: regular rhythm Heart sounds: no gallops, no murmurs and no rubs Skin General skin exam: other ( warm) Extrem General: No clubbing, No cyanosis and No edema Assessment & Plan Assessment & Plan (1) Asthma: Code(s): J45.909 - Unspecified asthma, uncomplicated Category: Medical Plan: Well controlled on current regimen of Trelegy and albuterol MDI. Continue current regimen. (2) BOURGEOIS (dyspnea on exertion): Code(s): R06.09 - Other forms of dyspnea Category: Medical Plan: Multifactorial with significant contribution from underlying cardiac component. Pulmonary component as well controlled at this time. Patient continues to undergo workup for AFib with possible ablation. Orders: Orders Basic Metabolic Panel Today R06.09 - Other forms of dyspnea Coding Level of Care Code Est Pt Level 4 (22572) Diagnoses Asthma J45.909 BOURGEOIS (dyspnea on exertion) R06.09
== END 2023-11-26 13:30 | disposition home or self-care (01) ==
PROVIDERS: PCP Internal Medicine; Visit Provider Internal Medicine Pulmonary Disease
DX: J45.909 Unspecified asthma, uncomplicated (principal); R06.09 Other forms of dyspnea
CPT/HCPCS: 99214

== ENCOUNTER 2023-12-22 10:49 | Outpatient (AMB) | payer MEDICARE, SELFPAY ==
[2023-09-24 15:56] VITALS: BMI 25.2
[2023-12-22 10:50] VITALS: BP 147/78; PULSE 92; O2SAT 98; BMI 22.7
--- NOTE | 2023-12-22 10:50 | A.OFFVIS_ITS ---
Vital Signs 12/22/23 10:50 Height 5 ft 2 in Weight 124 lb BMI 22.7 BP 147/78 H Blood Pressure Location Rt brachial Position Sitting Pulse 92 Pulse Source Doppler Pulse Oximetry (%) 98 Oxygen Delivery Method Room Air Intake Visit Reasons: Increased dyspnea Allergies No Known Allergies [No Known Allergies*] Allergy (Verified 12/22/23 10:56) HPI HPI Increased dyspnea: Details: 73-year-old lady, former 15 pack-year smoker, quit 1986, with underlying history of asthma and hypertension and prior MSSA pneumonia complicated by loculated effusion status post chest tube with successful chemical decortication, now followed for asthma/COPD and dyspnea on exertion. Patient has been using Trelegy and albuterol MDI with good baseline control of her symptoms. She is scheduled for Watchman procedure on 12/24/2023. Today patient is complaining of wheezing on exertion, nonproductive cough, and increased dyspnea. [facility] Medical History (Updated 08/18/23 @ 14:30 by ANIYA Smith) Hx of uterine prolapse Arthritis Hx of transfusion of packed red blood cells GERD (gastroesophageal reflux disease) Anxiety Depression History of cardioversion Paroxysmal A-fib MILY (obstructive sleep apnea) SOB (shortness of breath) Anemia Cough Orthopnea Post covid-19 condition, unspecified Loculated pleural effusion MSSA bacteremia Atrial fibrillation, new onset Constipation Overweight (BMI 25.0-29.9) UTI (urinary tract infection) Hypertension Asthma Malabsorption due to intolerance, not elsewhere classified Surgical History (Updated 07/31/23 @ 12:28 by Rochelle Paz RN) Hx of total shoulder replacement History of esophagogastroduodenoscopy (EGD) H/O colonoscopy History of total replacement of right hip History of bunionectomy Left inguinal hernia History of total right hip arthroplasty S/P laparoscopic sleeve gastrectomy Social History Household Members: Family Household Members Other:: Danny Housing: House Are you a primary foster care social worker to a significant other at home: No Do you presently have visiting nurse or other home services: No Alcohol intake: never Comment: refused bed alarm Patient Tobacco Use Status: Former Tobacco user Tobacco use type: Cigarette Years Smoked: 16 years Second Hand Smoke Exposure: No service: No 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al status: retired 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 of Systems Const Denies daytime sleepiness, Denies excessive sweating, Denies fatigue, Denies fever(s), Denies lethargy, Denies malaise, Denies night sweats, Denies snoring and Denies weight loss Eyes Denies blurry vision and Denies itchy eyes ENT Denies nasal congestion, Denies post nasal drip, Denies sinus pain, Denies sinus pressure and Denies other ( Thrush) Card Denies chest pain, Denies pedal edema, Reports dyspnea, Denies orthopnea and Denies paroxysmal nocturnal dyspnea Resp Reports cough, Denies hemoptysis, Denies excessive phlegm production, Reports dyspnea, Denies snoring and Reports wheezing GI Denies abdominal pain and Denies heartburn Musc Denies myalgias, Denies arthralgias and Denies joint swelling Skin/Breast Denies rash Neuro Denies memory loss and Denies seizure-like activity Psych Denies abnormal sleep pattern, Denies anxiety and Denies memory loss Endo Denies excessive sweating, Denies fatigue and Denies heat intolerance Micah/Lymph Denies easy bruising Aller/Immun Denies itchy eyes, Denies seasonal rhinorrhea and Reports wheezing Physical Exam Vital Signs: Last Vital Signs Pulse 92 12/22/23 10:50 BP 147/78 H 12/22/23 10:50 Pulse Ox 98 12/22/23 10:50 Oxygen Delivery Method Room Air 12/22/23 10:50 BMI result Body Mass Index 22.7 Const General: no acute distress and alert Nutritional Appearance: not obese Orientation/consciousness: Other orientation findings ( oriented) HEENT Head: Yes atraumatic Eyes General: appearance normal, both eyes and all related structures Sclerae: sclerae normal EOM: EOMs intact bilaterally Neck Neck: Yes supple Lymphatic: no lymphadenopathy noted Resp Effort & Inspection: normal respiratory effort and no use of accessory muscles Auscultation: clear to auscultation bilaterally Cardio Rate: regular rate Rhythm: regular rhythm Heart sounds: no gallops, no murmurs and no rubs Skin General skin exam: other ( warm) Extrem General: No clubbing, No cyanosis and No edema Assessment & Plan Assessment & Plan (1) BOURGEOIS (dyspnea on exertion): Code(s): R06.09 - Other forms of dyspnea Category: Medical Plan: Multifactorial with contribution from underlying pulmonary and cardiac etiologies. Patient is scheduled for Watchman procedure on 12/24/2023 (2) Asthma: Code(s): J45.909 - Unspecified asthma, uncomplicated Category: Medical Plan: Baseline controlled on Trelegy and albuterol MDI. Continue current regimen. Now with possible bronchitic exacerbation, will treat with a course of prednisone and azithromycin. Medications: New azithromycin For 250 mg dose pack: take 500 mg today (day 1), then 250 mg for 4 days (days 2-5) PO 6 tabs 0RF prednisone 40 mg (2 x 20 mg) PO DAILY 10 tabs 0RF ipratropium-albuterol 0.5 mg-3 mg(2.5 mg base)/3 mL 3 mL inhalation Q4-6H PRN 90 mL 3RF wheezing Coding Level of Care Code Est Pt Level 4 (54660) Diagnoses BOURGEOIS (dyspnea on exertion) R06.09 Asthma J45.909
== END 2023-12-22 11:47 | disposition home or self-care (01) ==
PROVIDERS: PCP Internal Medicine; Visit Provider Internal Medicine Pulmonary Disease
DX: R06.09 Other forms of dyspnea (principal); J45.909 Unspecified asthma, uncomplicated
CPT/HCPCS: 99214

== ENCOUNTER → 2023-12-22 10:49 | Outpatient (BNVA) | payer MEDICARE, SELFPAY ==
[2023-09-24 15:56] VITALS: BMI 25.2
== END ==
PROVIDERS: PCP Internal Medicine; Visit Provider Internal Medicine Pulmonary Disease
DX: J44.9 Chronic obstructive pulmonary disease, unspecified (principal); I10 Essential (primary) hypertension; R06.09 Other forms of dyspnea; Z87.891 Personal history of nicotine dependence
CPT/HCPCS: 99212

== ENCOUNTER 2024-01-13 10:30 | Outpatient (AMB) | payer MEDICARE, SELFPAY ==
[2023-09-24 15:56] VITALS: BMI 25.2
--- NOTE | 2024-01-13 10:18 | A.OFFVIS_ITS ---
VS Expanded 01/13/24 10:19 Height 5 ft 2 in Weight 124 lb 4 oz BMI 22.7 Intake Visit Reasons: post op after global -PO LSG 04/13/2018 Load Out Person Required: No Allergies No Known Allergies [No Known Allergies*] Allergy (Verified 12/22/23 10:56) Medication List - Last Reconciled 01/13/24 by ANIYA Smith albuterol sulfate 90 mcg/actuation (ProAir HFA) 2 puffs inhalation Q4-6H PRN amiodarone 200 mg PO DAILY aspirin (Adult Aspirin Regimen) 81 mg PO DAILY bisacodyl (Dulcolax (bisacodyl)) 10 mg OR DAILY PRN bupropion HCl SR (Wellbutrin SR) 200 mg PO BID@0900,1300 clopidogrel (Plavix) 75 mg PO DAILY fluticasone propionate 50 mcg/actuation 1 spray intranasal BID PRN eodifxjcmhr-yhntvlgxd-tguvyoix 200-62.5-25 mcg (Trelegy Ellipta) 1 ea inhalation DAILY ipratropium bromide 2 sprays intranasal TID-QID PRN ipratropium-albuterol 0.5 mg-3 mg(2.5 mg base)/3 mL 3 mL inhalation Q4-6H PRN lamotrigine 200 mg PO DAILY loratadine (Claritin) 10 mg PO DAILY PRN losartan 50 mg PO DAILY oxybutynin chloride ER 10 mg PO DAILY pantoprazole 40 mg PO BID theophylline ER 400 mg PO DAILY HPI Comments Details: Patient is a 73-year-old female who returns to the office today in follow-up. She is approximately 5 years 9 months post sleeve gastrectomy performed 04/13/2018. She has not been seen in the office since 05/29/2021. At that time her weight was 143.2 lb. Weight today is 124.4 lb with a BMI of 22.7. Looking at the records, her weight is stable over the last 6 months. She did have episodes of upper gi discomfort. She is doing well. She has a hx AF and watchmans procedure was performed about a month ago at [facility]. She states she had another episode of AF yesterday while out at [facility], felt like chest pounding and pain, lasting an hour. She did not go to the ER as she did not want to wait in the ER. She called her field care coordinator who said that since it has resolved, no other suggestion was given. She was not given an appointment and her next f/u is end february. Seeing PCP Thursday. She is taking Amiodarone 200 mg daily, taking MVI daily. No significant complaints regarding her abdomen or p.o. intake Meal plan: oatneal meat/veg yogurt Drinking 50 water Exercise plan: None Previously going to cardiac rehab [facility] 2 months ago and was in rehab. [facility] Medical History Paroxysmal A-fib Hypertension Hx of uterine prolapse Arthritis Hx of transfusion of packed red blood cells GERD (gastroesophageal reflux disease) Anxiety Depression History of cardioversion MILY (obstructive sleep apnea) SOB (shortness of breath) Anemia Cough Orthopnea Post covid-19 condition, unspecified Loculated pleural effusion MSSA bacteremia Atrial fibrillation, new onset Constipation Overweight (BMI 25.0-29.9) UTI (urinary tract infection) Asthma Malabsorption due to intolerance, not elsewhere classified Surgical History Hx of total shoulder replacement History of esophagogastroduodenoscopy (EGD) H/O colonoscopy History of total replacement of right hip History of bunionectomy Left inguinal hernia History of total right hip arthroplasty S/P laparoscopic sleeve gastrectomy Social History Household Members: Family Household Members Other:: Danny Housing: House Are you a primary home care rn to a significant other at home: No Do you presently have visiting nurse or other home services: No Alcohol intake: never Comment: refused bed alarm Patient Tobacco Use Status: Former Tobacco user Tobacco use type: Cigarette Years Smoked: 16 years Second Hand Smoke Exposure: No service: No 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al status: retired 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: Right Handed Telehealth Telehealth Telehealth Platform: Telephone Location of provider rendering services: practice address Location of patient: address on file Patient Identification confirmed using: Name, : Yes Telehealth method: voice only Patient verbally consented to treatment: Yes Patient verbally consented to billing insurance company: Yes Patient informed of any privacy concerns related to visit: Yes Minutes spent on Phone/Video with Pt.: 25 Assessment & Plan Assessment & Plan (1) S/P laparoscopic sleeve gastrectomy: Code(s): Z98.84 - Bariatric surgery status Category: Surgical Plan: From a bariatric standpoint, she is doing fairly well. Maintaining a stable and healthy weight over the last 6 months. I did suggest decreasing oatmeal, her exercise tolerance has been limited due to multiple cardiac issues and recent total knee replacement. Her knee replacement went well although given her recent episode of AFib, she is going to discuss with her field care coordinator what to do. Her amiodarone dose has been decreased by what was previously reported at 400 mg twice a day down to 200 mg once daily. She is scheduled to follow up with her primary care physician this Thursday. She received most of her care at [facility]. We will check postop bariatric labs as she has not had any done within the last couple of years. We will have her return to the office in several months with the understanding that she will call sooner with any questions or concerns. Orders: Orders Complete Blood Count Auto Diff Today I10 - Essential (primary) hypertension, I48.0 - Paroxysmal atrial fibrillation, Z98.84 - Bariatric surgery status Lipid Panel Today I10 - Essential (primary) hypertension, I48.0 - Paroxysmal atrial fibrillation, Z98.84 - Bariatric surgery status Zinc Today I10 - Essential (primary) hypertension, I48.0 - Paroxysmal atrial fibrillation, Z98.84 - Bariatric surgery status Vitamin A Today I10 - Essential (primary) hypertension, I48.0 - Paroxysmal atrial fibrillation, Z98.84 - Bariatric surgery status Vitamin D 25-OH Total Today I10 - Essential (primary) hypertension, I48.0 - Paroxysmal atrial fibrillation, Z98.84 - Bariatric surgery status Insulin Today I10 - Essential (primary) hypertension, I48.0 - Paroxysmal atrial fibrillation, Z98.84 - Bariatric surgery status Hemoglobin A1c Today I10 - Essential (primary) hypertension, I48.0 - Paroxysmal atrial fibrillation, Z98.84 - Bariatric surgery status IRON PROFILE Today I10 - Essential (primary) hypertension, I48.0 - Paroxysmal a trial fibrillation, Z98.84 - Bariatric surgery status Comprehensive Met. Panel Today I10 - Essential (primary) hypertension, I48.0 - Paroxysmal atrial fibrillation, Z98.84 - Bariatric surgery status Vitamin B12 and Folate Today I10 - Essential (primary) hypertension, I48.0 - Paroxysmal atrial fibrillation, Z98.84 - Bariatric surgery status C Reactive Protein Today I10 - Essential (primary) hypertension, I48.0 - Paroxysmal atrial fibrillation, Z98.84 - Bariatric surgery status Vitamin B1 Today I10 - Essential (primary) hypertension, I48.0 - Paroxysmal atrial fibrillation, Z98.84 - Bariatric surgery status TSH reflex Free T4 Today I10 - Essential (primary) hypertension, I48.0 - Paroxysmal atrial fibrillation, Z98.84 - Bariatric surgery status Ferritin Today I10 - Essential (primary) hypertension, I48.0 - Paroxysmal atrial fibrillation, Z98.84 - Bariatric surgery status
[2024-01-13 10:19] VITALS: BMI 22.7
== END 2024-01-13 11:23 | disposition home or self-care (01) ==
LOC: HO.HBS 11:01
PROVIDERS: PCP Internal Medicine; Visit Provider Physician Assistant Surgical
DX: I48.0 Paroxysmal atrial fibrillation (principal); Z98.84 Bariatric surgery status
CPT/HCPCS: 98968

== ENCOUNTER 2024-03-08 14:13 | Outpatient (AMB) | payer MEDICARE, SELFPAY ==
[2023-09-24 15:56] VITALS: BMI 25.2
[2024-03-08 14:15] VITALS: BP 128/82; PULSE 102; O2SAT 99; BMI 23.1
--- NOTE | 2024-03-08 14:15 | MHC.OFFVIS ---
Vital Signs 03/08/24 14:15 Height 5 ft 2 in Weight 126 lb 2 oz BMI 23.1 BP 128/82 Blood Pressure Location Rt brachial Position Sitting Pulse 102 H Pulse Source Doppler Pulse Oximetry (%) 99 Oxygen Delivery Method Room Air Intake Visit Reasons: shortness of breath, wheeze Allergies No Known Allergies [No Known Allergies*] Allergy (Verified 03/08/24 14:20) HPI HPI shortness of breath, wheeze: Details: 73-year-old lady, former 15 pack-year smoker, quit 1986, with underlying history of asthma and hypertension and prior MSSA pneumonia complicated by loculated effusion status post chest tube with successful chemical decortication, now followed for asthma/COPD and dyspnea on exertion. Patient has been using Trelegy and albuterol MDI with good baseline control of her symptoms. She is scheduled for Watchman procedure on 12/24/2023. Today patient is presenting for sick visit complaining of cough productive of small amount of sputum for the last day in days, now slowly improving, but still significantly symptomatic. [facility] Medical History Paroxysmal A-fib Hypertension Hx of uterine prolapse Arthritis Hx of transfusion of packed red blood cells GERD (gastroesophageal reflux disease) Anxiety Depression History of cardioversion MILY (obstructive sleep apnea) SOB (shortness of breath) Anemia Cough Orthopnea Post covid-19 condition, unspecified Loculated pleural effusion MSSA bacteremia Atrial fibrillation, new onset Constipation Overweight (BMI 25.0-29.9) UTI (urinary tract infection) Asthma Malabsorption due to intolerance, not elsewhere classified Surgical History Hx of total shoulder replacement History of esophagogastroduodenoscopy (EGD) H/O colonoscopy History of total replacement of right hip History of bunionectomy Left inguinal hernia History of total right hip arthroplasty S/P laparoscopic sleeve gastrectomy Social History Household Members: Family Household Members Other:: Danny Housing: House Are you a primary post acute care nurse to a significant other at home: No Do you presently have visiting nurse or other home services: No Alcohol intake: never Comment: refused bed alarm Patient Tobacco Use Status: Former Tobacco user Tobacco use type: Cigarette Years Smoked: 16 years Second Hand Smoke Exposure: No service: No 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al status: retired 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 of Systems Const Denies daytime sleepiness, Denies excessive sweating, Denies fatigue, Denies fever(s), Denies lethargy, Denies malaise, Denies night sweats, Denies snoring and Denies weight loss Eyes Denies blurry vision and Denies itchy eyes ENT Denies nasal congestion, Denies post nasal drip, Denies sinus pain, Denies sinus pressure and Denies other ( Thrush) Card Denies chest pain, Denies pedal edema, Denies dyspnea, Denies orthopnea and Denies paroxysmal nocturnal dyspnea Resp Reports cough, Denies hemoptysis, Denies excessive phlegm production, Denies dyspnea, Denies snoring and Denies wheezing GI Denies abdominal pain and Denies heartburn Musc Denies myalgias, Denies arthralgias and Denies joint swelling Skin/Breast Denies rash Neuro Denies memory loss and Denies seizure-like activity Psych Denies abnormal sleep pattern, Denies anxiety and Denies memory loss Endo Denies excessive sweating, Denies fatigue and Denies heat intolerance Micah/Lymph Denies easy bruising Aller/Immun Denies itchy eyes, Denies seasonal rhinorrhea and Denies wheezing Physical Exam Vital Signs: Last Vital Signs Pulse 102 H 03/08/24 14:15 BP 128/82 03/08/24 14:15 Pulse Ox 99 03/08/24 14:15 Oxygen Delivery Method Room Air 03/08/24 14:15 BMI result Body Mass Index 23.1 Const General: no acute distress and alert Nutritional Appearance: not obese Orientation/consciousness: Other orientation findings ( oriented) HEENT Head: Yes atraumatic Eyes General: appearance normal, both eyes and all related structures Sclerae: sclerae normal EOM: EOMs intact bilaterally Neck Neck: Yes supple Lymphatic: no lymphadenopathy noted Resp Effort & Inspection: normal respiratory effort and no use of accessory muscles Auscultation: clear to auscultation bilaterally Cardio Rate: regular rate Rhythm: regular rhythm Heart sounds: no gallops, no murmurs and no rubs Skin General skin exam: other ( warm) Extrem General: No clubbing, No cyanosis and No edema Assessment & Plan Assessment & Plan (1) Asthma: Code(s): J45.909 - Unspecified asthma, uncomplicated Category: Medical Plan: Baseline controlled on trilogy, duo nebs, theophylline, and albuterol MDI. Continue current regimen. Now with residual bronchitic symptoms, though no wheezing, will treat with a course of prednisone. (2) BOURGEOIS (dyspnea on exertion): Code(s): R06.09 - Other forms of dyspnea Category: Medical Plan: Multifactorial with significant cardiac contribution. Medications: New prednisone 40 mg (2 x 20 mg) PO DAILY 10 tabs 0RF Coding Level of Care Code Est Pt Level 4 (08457) Diagnoses Asthma J45.909 BOURGEOIS (dyspnea on exertion) R06.09
--- OUTSIDE RECORDS SUMMARY | 2024-03-08 15:11 | XMS_ITS ---
Author Organization [facility] Address [address] [place] [id number] Care Team Providers Care Hob Mill Operator Name Role Phone Eddie Messina MD Primary Care Provider Lalo Hillman [phone] REASON FOR VISIT Patient presents today for nausea, vomitting, Encounters Encounter Location Date Provider Diagnosis [facility] [address] [place] [id number] 10/14/2023 Lalo Vaughn PLAN OF TREATMENT No Information
--- OUTSIDE RECORDS SUMMARY | 2024-03-08 15:11 | XMS_ITS | Clinical Summary ---
Author Organization Formerly [facility] Facility Address [address] [place] [address] Care Team Providers Care Industrial Sales Manager Name Role Phone Eddie Messina MD Primary Care Provider [phone] Allergies No known active allergies Medications albuterol HFA (ProAir HFA) 108 (90 Base) MCG/ACT inhaler 2 puffs by Other route every 4 (four) hours Active buPROPion SR (Wellbutrin SR) 200 MG 12 hr tablet Take 1 tablet by mouth 2 (two) times a day Active lamoTRIgine (LaMICtal) 200 MG tablet Take 1 tablet by mouth 1 (one) time each day Active metoprolol succinate XL (TOPROL-XL) 25 MG 24 hr tablet Take 1 tablet by mouth at bed time Active Naproxen Sodium (Aleve) 220 MG capsule Take 2 capsules by mouth 2 (two) times a day Active montelukast (Singulair) 10 MG tablet Take 1 tablet by mouth 1 (one) time each day Active oxybutynin XL (Ditropan XL) 10 MG 24 hr tablet 1 tablet 1 (one) time each day Active pantoprazole (PROTONIX) 40 MG EC tablet Take 1 tablet by mouth 1 (one) time each day Active Flovent HFA 110 MCG/ACT inhaler INHALE 2 PUFFS BY MOUTH TWICE DAILY*RINSE MOUTH/THROAT AFTER USE 04/26/2020 Active gabapentin (NEURONTIN) 300 MG capsule Take 300 mg by mouth BID 03/08/2020 Active traZODone (DESYREL) 50 MG tablet Take 50 mg by mouth at bed time 03/28/2020 Active cetirizine (ZyrTEC) 10 MG tablet Take 10 mg by mouth 1 (one) time each day Active Active Problems Problem Noted Date Diagnosed Date Hypercalcemia 03/21/2020 Hypertensive disorder 03/21/2020 Immunizations Name Administration Dates Next Due Influenza Split High Dose Preservative Free IM 0 10/26/2018 Pneumococcal Conjugate 13-Valent 06/01/2015 Shingrix 10/26/2018 Family History Medical History Relation Comments Diabetes Mother Heart disease Mother Hypertension Mother Relation Status Comments Father Unknown Mother Unknown Social History Tobacco Use Types Packs/Day Years Used Date Smoking Tobacco: Former Cigarettes Q uit: 01/20/1985 Comments Unknown Sex and Gender Information Value Date Recorded Sex Assigned at Not on file Legal Sex Female 4:50 PM EST Gender Identity Not on file Sexual Orientation Not on file Last Filed Vital Signs Vital Sign Reading Time Taken Comments Blood Pressure 124/60 11/26/2018 12:00 PM EDT Pulse 60 11/26/2018 12:00 PM EDT Temperature - - Respiratory Rate - - Oxygen Saturation - - Inhaled Oxygen Concentration - - Weight 60.3 kg (133 lb) 05/11/2020 1:23 PM EDT Height 160 cm (5' 3 ) 05/11/2020 1:23 PM EDT Body Mass Index 23.56 05/11/2020 1:23 PM EDT Plan of Treatment Health Maintenance Due Date Last Done Comments Breast Cancer Screening 1950 Colorectal Cancer Screening: Annual FOBT 11/20/1999 Colorectal Cancer Screening: Colonoscopy 11/20/1999 Colorectal Cancer Screening: Sigmoidoscopy 11/20/1999 Pneumococcal Vaccine: 65+ Years (2 of 2 - PPSV23 or PCV20) 05/31/2016 06/01/2015 Influenza Vaccine (#1) 2023 , 10/26/2018 Hepatitis B Vaccine Aged Out No longe r eligible based on patient's age to complete this topic Insurance [facility] Care Teams Industrial Sales Manager Relationship Specialty Start Date End Date Eddie Messina MD [employer] MACHINE OPERATOR [address] [place] [address] [place] RONDON MD PCP - General Internal Medicine 05/11/20
--- OUTSIDE RECORDS SUMMARY | 2024-03-08 15:11 | XMS_ITS | Clinical Summary ---
Author Organization Unknown Care Team Providers Care Environmental Health Technician Name Role Phone SARAH PASCUAL, PARAMJIT Unavailable Unavailable PARMINDER PATIENT OBSERVATION ASSISTANT, SY Unavailable Unavailab latisha ALFREDO PT, FERMIN Unavailable Unavailable Payers Payer Name Policy Type Policy Number Effective Date Expira tion Date [employer] MEDICARE ADVANTAGE FFS - ORDER DRIVEN [id number] [place] [facility] [id number] Problems Condition Name Condition Details Condition Category Status Onset Date Resolution Date Last Treatment Date Treating Clinician Comments UNSPECIFIED ATRIAL FIBRILLATION Active 02-09 00:00: 00 HYPERTENSIVE 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 MANAGER (CURRENT) USE OF ASPIRIN Active 02-09 00:00: 00 HALF-WAY (CURRENT) USE OF ANTITHROMBOT ICS/ANTIPLAT ELETS Active 02-09 00:00: 00 SR. MANAGER (CURRENT) USE OF INHALED STEROIDS Active 02-09 00:00: 00 TRANSPORTATI ON INSECURITY Active 02-09 00:00: 00 SOCIAL EXCLUSION AND REJECTION Active 02-09 00:00: 00 HISTORY OF FALLING Active 02-09 00:00: 00 Allergies, Adverse Reactions, Alerts Allergy Name Allergy Type Status Severity Reaction(s) Onset Date Inactive Date Treating Clinician Comments NKA Propensity to adverse reactions Active 2024-02 16:39:1 3 Medications Ordered Medication Name Filled Medication Name Start Date Stop Date Current Medication? Ordering Clinician Indication Dosage Frequency Signature (SIG) Comments Components pantoprazol e 40 mg tablet,veto yed release 02-15 00:00: 00 Yes [id number] 1 tablet DAILY 1 tablet DAILY (route: oral) Med Classific ation: Gastroint estinal Therapy Agents spironolact one 25 mg tablet 02-15 00:00: 00 Yes [id number] 1 tablet DAILY 1 tablet DAILY (route: oral) Med Classific ation: Cardiovas cular Therapy Agents theophyllin e ER 400 mg tablet,exte nded release 24 hr 2023-02 00:00: 00 Yes [id number] 1 tablet DAILY 1 tablet DAILY (route: oral) Med Classific ation: Respirato ry Therapy Agents Trelegy Ellipta 200 mcg-62.5 mcg-25 mcg powder for inhalation 2023-02 00:00: 00 Yes [id number] 1 inhalat ion DAILY 1 inhalation DAILY (route: inhalation ) Med Classific ation: Respirato ry Therapy Agents albuterol sulfate HFA 90 mcg/actuati on aerosol inhaler 2023-02 00:00: 00 Yes [id number] Per instruc tions DIRECTED Per instructio ns DIRECTED (route: inhalation ) Med Classific ation: Respirato ry Therapy Agents amiodarone 200 mg tablet 2023-02 00:00: 00 Yes [id number] 1 tablet DAILY 1 tablet DAILY (route: oral) Med Classific ation: Cardiovas cular Therapy Agents aspirin 81 mg tablet,veto yed release 2023-02 0- 00:00: 00 Yes [id number] 1 tablet DAILY 1 tablet DAILY (route: oral) Med Classific ation: Hematolog ical Agents clopidogrel 75 mg tablet 2023-02 2- 00:00: 00 Yes [id number] 1 tablet DAILY 1 tablet DAILY (route: oral) Med Classific ation: Hematolog ical Agents ipratropium 0.5 mg-albutero l 3 mg (2.5 mg base)/3 mL nebulizatio n soln 2023-02 00:00: 00 Yes [id number] Per instruc tions DIRECTED Per instructio ns DIRECTED (route: inhalation ) Med Classific ation: Respirato ry Therapy Agents Lamictal 100 mg tablet 2023-02 00:00: 00 Yes [id number] 1 tablet EVERY AM 1 tablet EVERY AM (route: oral) Med Classific ation: Central Nervous System Agents Lamictal 200 mg tablet 2023-02 00:00: 00 Yes [id number] 1 tablet DAILY 1 tablet DAILY (route: oral) Med Classific ation: Central Nervous System Agents loratadine 10 mg capsule 2023-02 00:00: 00 Yes [id number] 1 capsule DAILY 1 capsule DAILY (route: oral) Med Classific ation: Respirato ry Therapy Agents losartan 50 mg tablet 2023-02 00:00: 00 Yes [id number] 1 tablet DAILY 1 tablet DAILY (route: oral) Med Classific ation: Cardiovas cular Therapy Agents oxybutynin chloride ER 10 mg tablet,exte nded release 24 hr 2023-02 00:00: 00 Yes [id number] 1 tablet EVERY AM 1 tablet EVERY AM (route: oral) Med Classific ation: Genitouri nary Therapy tretinoin 0.025 % topical cream 2023-02 00:00: 00 Yes [id number] Per instruc tions DAILY Per instructio ns DAILY (route: topical) Med Classific ation: Dermatolo gical Wellbutrin SR 200 mg tablet, 12 hr sustained-r elease 2023-02 00:00: 00 Yes [id number] 1 tablet 2 TIMES DAILY 1 tablet 2 TIMES DAILY (route: oral) Med Classific ation: Central Nervous System Agents Vital Signs Vital Name Observation Time Observation Value Commen ts Temperature 2024-03-07 10:33:00.000 97.5 [degF] Temperature 2024-03-03 15:21:00.000 98.5 [degF] Temperature 2024-02-23 16:18:00.000 98.2 [degF] BMI (%) 2024-02-23 16:18:00.000 31 kg/m2 Height 2024-02-23 16:18:00.000 63 [in_us] Pulse 2024-03-07 10:33:00.000 68 /min Pulse 2024-03-03 15:21:00.000 75 /min Pulse 2024-02-23 16:18:00.000 75 /min O2 Saturation (%) 2024-03-07 10:33:00.000 96 % O2 Saturation (%) 2024-03-03 15:21:00.000 95 % O2 Saturation (%) 2024-02-23 16:18:00.000 98 % Respirations 2024-03-07 10:33:00.000 18 /min Respirations 2024-03-03 15:21:00.000 16 /min Respirations 2024-02-23 16:18:00.000 16 /min Weight (lbs) 2024-02-23 16:18:00.000 176 [lb_av] Systolic Blood Pressure 2024-03-07 10:33:00.000 123 mm [Hg] Systolic Blood Pressure 2024-03-03 15:21:00.000 132 mm [Hg] Systolic Blood Pressure 2024-02-23 16:18:00.000 168 mm [Hg] Diastolic Blood Pressure 2024-03-07 10:33:00.000 81 mm [Hg] Diastolic Blood Pressure 2024-03-03 15:21:00.000 72 mm [Hg] Diastolic Blood Pressure 2024-02-23 16:18:00.000 88 mm [Hg] Plan of Treatment Planned Activity Planned Date Details Comments Future Scheduled Test PHYSICAL T HERAPIST TO EVALUATE PATIENT SECONDARY TO FUNCTIONAL DEFICITS/SAFETY CONCERNS. [code = PHYSICAL THERAPIST TO EVALUATE PATIENT SECONDARY TO FUNCTIONAL DEFICITS/SAFETY CONCERNS.] Future Scheduled Test SUMMARY OF THERAPY EVAL/ASSESSMENT FINDINGS AND REASON(S) SKILLS OF A THERAPIST ARE INDICATED: SOC SUMMARY: PATIENT IS A 73-YEAR-OLD FEMALE WITH HISTORY OF LEFT KNEE OA STATUS POST LEFT TKA, TAKOTSUBO CARDIOMYOPATHY, CKD, ANEMIA, AFIB STATUS POST WATCHMAN DEVICE ON DUAL ANTIPLATELET THERAPY, ASTHMA, RECENT UTI, INSOMNIA, HYPERTENSION, STATUS POST COVID INFECTION 2023 WITH INPATIENT HOSPITALIZATION STATUS POST CHEST TUBE PLACEMENT DUE TO LUNG COLLAPSE, RECURRENT FALLS, PRESENTS REFERRAL FOR HOME PT SERVICES FOLLOWING ED PRESENTATION ON 02/16 FOR GENERALIZED WEAKNESS, NAUSEA, AND ABDOMINAL PAIN, ABDOMINAL CT SCAN AND LAB WORK NEGATIVE FOR ACUTE PATHOLOGY. PATIENT IS CURRENTLY HAVING CHANGES WITH BLOOD PRESSURE MEDS SECONDARY TO HYPERTENSION, PATIENT REPORTS SHE WAS REFERRED TO CARDIOLOGY APPROXIMATELY 6 MONTHS PRIOR BUT HAS NOT HEARD BACK. PRIMARY FOCUS OF CARE AT THIS TIME IS RELATED TO HYPERTENSION. PLOF: PATIENT LIVES IN SINGLE FAMILY HOME WITH SUPPORTIVE FAMILY NEARBY THAT ARE ABLE TO ASSIST, PATIENT IS TYPICALLY MOD I FOR LIMITED COMMUNITY DISTANCE AMBULATION WITH STRAIGHT CANE USE, MOD I USING STRAIGHT CANE FOR ADLS AND IADLS. PATIENT REPORTS SINCE COVID INFECTION LAST YEAR PATIENT HAS HAD A GENERAL DECLINE IN OVERALL MOBILITY STATUS AND INCREASED FALLS AT HOME. PATIENT REPORTS SHE HAS HAD GREATER THAN 12 FALLS IN THE LAST YEAR RELATED TO LOWER EXTREMITY WEAKNESS IN GENERAL BALANCE IMPAIRMENT. PATIENT'S PRIMARY GOAL WITH HOME PT SERVICES IS TO IMPROVE HER LOWER EXTREMITY STRENGTH AND ENDURANCE PATIENT REPORTS HER ABILITY TO AMBULATE COMMUNITY DISTANCES HAS DIMINISHED. CONSENT FORMS SIGNED, WELCOME VIDEO PLAYED FOR PATIENT. HOME SAFETY HANDOUT REVIEWED. CALL US FIRST POLICY, SURVEY, ON-CALL HOURS REVIEWED WITH PATIENT. APPROPRIATE ACTION PLAN REVIEWED WITH PATIENT. PATIENT REPORTS SHE WILL INTERMITTENTLY HAVE BILATERAL FOOT PAIN BUT THIS DOES NOT IMPACT HER ABILITY TO AMBULATE PER HER REPORT. PATIENT HYPERTENSIVE IN HI 160S OVER 80S THROUGHOUT VISIT TODAY, DENIES DIZZINESS WITH POSITION CHANGE. 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 LUNG SOUNDS CLEAR TO AUSCULTATION IN ALL [place]. NO WOUNDS ON ASSESSMENT. NO SAFETY CONCERNS WITH HOME ENVIRONMENT AFTER CLINICIAN SURVEYED PATIENT'S HOME. PATIENT DEMONSTRATES IMPAIRED DYNAMIC STANDING BALANCE EVIDENCED BY TINETTI SCORE LESS THAN 19/30, LOWER EXTREMITY WEAKNESS [code = SUMMARY OF THERAPY EVAL/ASSESSMENT FINDINGS AND REASON(S) SKILLS OF A THERAPIST ARE INDICATED: SOC SUMMARY: PATIENT IS A 73-YEAR-OLD FEMALE WITH HISTORY OF LEFT KNEE OA STATUS POST LEFT TKA, TAKOTSUBO CARDIOMYOPATHY, CKD, ANEMIA, AFIB STATUS POST WATCHMAN DEVICE ON DUAL ANTIPLATELET THERAPY, ASTHMA, RECENT UTI, INSOMNIA, HYPERTENSION, STATUS POST COVID INFECTION 2023 WITH INPATIENT HOSPITALIZATION STATUS POST CHEST TUBE PLACEMENT DUE TO LUNG COLLAPSE, RECURRENT FALLS, PRESENTS REFERRAL FOR HOME PT SERVICES FOLLOWING ED PRESENTATION ON 02/16 FOR GENERALIZED WEAKNESS, NAUSEA, AND ABDOMINAL PAIN, ABDOMINAL CT SCAN AND LAB WORK NEGATIVE FOR ACUTE PATHOLOGY. PATIENT IS CURRENTLY HAVING CHANGES WITH BLOOD PRESSURE MEDS SECONDARY TO HYPERTENSION, PATIENT REPORTS SHE WAS REFERRED TO CARDIOLOGY APPROXIMATELY 6 MONTHS PRIOR BUT HAS NOT HEARD BACK. PRIMARY FOCUS OF CARE AT THIS TIME IS RELATED TO HYPERTENSION. PLOF: PATIENT LIVES IN SINGLE FAMILY HOME WITH SUPPORTIVE FAMILY NEARBY THAT ARE ABLE TO ASSIST, PATIENT IS TYPICALLY MOD I FOR LIMITED COMMUNITY DISTANCE AMBULATION WITH STRAIGHT CANE USE, MOD I USING STRAIGHT CANE FOR ADLS AND IADLS. PATIENT REPORTS SINCE COVID INFECTION LAST YEAR PATIENT HAS HAD A GENERAL DECLINE IN OVERALL MOBILITY STATUS AND INCREASED FALLS AT HOME. PATIENT REPORTS SHE HAS HAD GREATER THAN 12 FALLS IN THE LAST YEAR RELATED TO LOWER EXTREMITY WEAKNESS IN GENERAL BALANCE IMPAIRMENT. PATIENT'S PRIMARY GOAL WITH HOME PT SERVICES IS TO IMPROVE HER LOWER EXTREMITY STRENGTH AND ENDURANCE PATIENT REPORTS HER ABILITY TO AMBULATE COMMUNITY DISTANCES HAS DIMINISHED. CONSENT FORMS SIGNED, WELCOME VIDEO PLAYED FOR PATIENT. HOME SAFETY HANDOUT REVIEWED. CALL US FIRST POLICY, SURVEY, ON-CALL HOURS REVIEWED WITH PATIENT. APPROPRIATE ACTION PLAN REVIEWED WITH PATIENT. PATIENT REPORTS SHE WILL INTERMITTENTLY HAVE BILATERAL FOOT PAIN BUT THIS DOES NOT IMPACT HER ABILITY TO AMBULATE PER HER REPORT. PATIENT HYPERTENSIVE IN HI 160S OVER 80S THROUGHOUT VISIT TODAY, DENIES DIZZINESS WITH POSITION CHANGE. 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 LUNG SOUNDS CLEAR TO AUSCULTATION IN ALL [place]. NO WOUNDS ON ASSESSMENT. NO SAFETY CONCERNS WITH HOME ENVIRONMENT AFTER CLINICIAN SURVEYED PATIENT'S HOME. PATIENT DEMONSTRATES IMPAIRED DYNAMIC STANDING BALANCE EVIDENCED BY TINETTI SCORE LESS THAN 19/30, LOWER EXTREMITY WEAKNESS ] Future Scheduled Test PHYSICAL T HERAPIST TO ASSESS BEST PRACTICE INTERVENTIONS TO ASSIST PATIENTS TO IMPROVE OR STABILIZE MEDICAL STATUS AND PREVENT RE-HOSPITALIZATION. MEASURES INCLUDING REVIEW AND IDENTIFICATION OF CONCERNS FOR THE FOLLOWING AREAS: AFIB, DEPRESSION AND DISEASE MANAGEMENT, DM FOOT CARE. [code = PHYSICAL THERAPIST TO ASSESS BEST PRACTICE INTERVENTIONS TO ASSIST PATIENTS TO IMPROVE OR STABILIZE MEDICAL STATUS AND PREVENT RE-HOSPITALIZATION. MEASURES INCLUDING REVIEW AND IDENTIFICATION OF CONCERNS FOR THE FOLLOWING AREAS: AFIB, DEPRESSION AND DISEASE MANAGEMENT, DM FOOT CARE.] Future Scheduled Test PHYSICAL T HERAPY FOR OBSERVATION AND ASSESSMENT OF PAIN, EFFECTIVENESS OF PAIN MANAGEMENT REGIMEN AND SKILLED TEACHING RELATED TO PAIN MANAGEMENT. THERAPIST TO REPORT INCREASED PAIN LEVEL TO PHYSICIAN FOR PROMPT INTERVENTION. [code = PHYSICAL THERAPY FOR OBSERVATION AND ASSESSMENT OF PAIN, EFFECTIVENESS OF PAIN MANAGEMENT REGIMEN AND SKILLED TEACHING RELATED TO PAIN MANAGEMENT. THERAPIST TO REPORT INCREASED PAIN LEVEL TO PHYSICIAN FOR PROMPT INTERVENTION.] Future Scheduled Test PHYSICAL T HERAPY TO ESTABLISH /UPGRADE/DOWNGRADE THERAPEUTIC EXERCISE PROGRAM AND INSTRUCT PATIENT/CAREGIVER ON EXERCISE PRECAUTIONS WITH WRITTEN HOME PROGRAM. MAY INCLUDE PROM, AAROM, AROM, RROM APPROPRIATE TO IMPROVE FUNCTIONAL STRENGTH AND RANGE OF MOTION. [code = PHYSICAL THERAPY TO ESTABLISH /UPGRADE/DOWNGRADE THERAPEUTIC EXERCISE PROGRAM AND INSTRUCT PATIENT/CAREGIVER ON EXERCISE PRECAUTIONS WITH WRITTEN HOME PROGRAM. MAY INCLUDE PROM, AAROM, AROM, RROM APPROPRIATE TO IMPROVE FUNCTIONAL STRENGTH AND RANGE OF MOTION.] Future Scheduled Test PHYSICAL T HERAPY TO INSTRUCT PATIENT/CAREGIVER ON SAFE TRANSFER TECHNIQUES USING PROPER BODY MECHANICS AND EQUIPMENT. [code = PHYSICAL THERAPY TO INSTRUCT PATIENT/CAREGIVER ON SAFE TRANSFER TECHNIQUES USING PROPER BODY MECHANICS AND EQUIPMENT.] Future Scheduled Test PHYSICAL T HERAPY TO INSTRUCT PATIENT/CAREGIVER ON BED MOBILITY TECHNIQUES TO IMPROVE PATIENT MOBILITY AND POSITIONING TECHNIQUES IN ORDER TO INCREASE PATIENTS COMFORT AND DECREASE RISK OF SKIN BREAKDOWN. [code = PHYSICAL THERAPY TO INSTRUCT PATIENT/CAREGIVER ON BED MOBILITY TECHNIQUES TO IMPROVE PATIENT MOBILITY AND POSITIONING TECHNIQUES IN ORDER TO INCREASE PATIENTS COMFORT AND DECREASE RISK OF SKIN BREAKDOWN.] Future Scheduled Test PHYSICAL T HERAPY TO INSTRUCT PATIENT/CAREGIVER ON GAIT TRAINING TECHNIQUES USING APPROPRIATE ASSISTIVE DEVICE, PROPER BODY MECHANICS TO IMPROVE MOBILITY, AND PREVENT INJURY OF PATIENT AND/OR CAREGIVER. [code = PHYSICAL THERAPY TO INSTRUCT PATIENT/CAREGIVER ON GAIT TRAINING TECHNIQUES USING APPROPRIATE ASSISTIVE DEVICE, PROPER BODY MECHANICS TO IMPROVE MOBILITY, AND PREVENT INJURY OF PATIENT AND/OR CAREGIVER.] Future Scheduled Test PHYSICAL T HERAPY TO INSTRUCT PATIENT/CAREGIVER ON BALANCE AND BALANCE STRATEGIES TO IMPROVE SAFE MOBILITY AND REDUCE RISK FOR FALL AND INJURY [code = PHYSICAL THERAPY TO INSTRUCT PATIENT/CAREGIVER ON BALANCE AND BALANCE STRATEGIES TO IMPROVE SAFE MOBILITY AND REDUCE RISK FOR FALL AND INJURY ] Future Scheduled Test PHYSICAL T HERAPY TO ASSESS AND RECOMMEND HOME SAFETY ADAPTATIONS AND EDUCATE PATIENT /CAREGIVER ON FALL PREVENTION STRATEGIES. [code = PHYSICAL THERAPY TO ASSESS AND RECOMMEND HOME SAFETY ADAPTATIONS AND EDUCATE PATIENT /CAREGIVER ON FALL PREVENTION STRATEGIES.] Future Scheduled Test MEDICAL SO CIAL WORKER TO EVALUATE PATIENT SECONDARY TO SOCIAL AND EMOTIONAL FACTORS IDENTIFIED DURING EVALUATION, PATIENT REQUESTED CONSTRUCTION SUPERVISOR CONSULT IN FOR EMOTIONAL SUPPORT/COMMUNITY RESOURCES PATIENT HAS HAD INCREASED DEPRESSION IN LIGHT OF LOSING FAMILY MEMBERS LAST YEAR [code = PIECE DYEING MACHINE TENDER TO EVALUATE PATIENT SECONDARY TO SOCIAL AND EMOTIONAL FACTORS IDENTIFIED DURING EVALUATION, PATIENT REQUESTED CONSTRUCTION SUPERVISOR CONSULT IN FOR EMOTIONAL SUPPORT/COMMUNITY RESOURCES PATIENT HAS HAD INCREASED DEPRESSION IN LIGHT OF LOSING FAMILY MEMBERS LAST YEAR] Goal Patient Goal - T O GET TO NORMAL OR CLOSE POSSIBLE Goal Provider Goal - PHYSICAL THERAPY EVALUATION TO BE COMPLETED WITH RECOMMENDATIONS AND/OR WRITTEN TREATMENT PLAN OF CARE ESTABLISHED FOR THE PHYSICIANS SIGNATURE Goal Provider Goal - Goal Provider Goal - PATIENT/CAREGIVER VERBALIZES UNDERSTANDING OF THE INITIAL BEST PRACTICE RECOMMENDATIONS. PHYSICIAN TO BE NOTIFIED APPROPRIATE FOR ANY CHANGES OR COMPLICATIONS THROUGHOUT THE CERTIFICATION PERIOD. Goal Provider Goal - INCREASED PAIN OR INEFFECTIVE PAIN CONTROL MEASURES WILL BE IDENTIFIED AND PROMPTLY REPORTED TO THE PHYSICIAN. PATIENT/CAREGIVER WILL DEMONSTRATE EFFECTIVE PAIN MANAGEMENT. Goal Provider Goal - PATIENT/CAREGIVER WILL PERFORM THERAPEUTIC EXERCISE/S AND DEMONSTRATE PARTICIPATION IN A HOME PROGRAM. Goal Provider Goal - PATIENT/CAREGIVER WILL DEMONSTRATE SAFE TRANSFERS USING APPROPRIATE ASSISTIVE DEVICE, BODY MECHANICS AND EQUIPMENT. Goal Provider Goal - PATIENT/CAREGIVER WILL DEMONSTRATE IMPROVED BED MOBILITY TECHNIQUES. Goal Provider Goal - PATIENT/CAREGIVER WILL DEMONSTRATE IMPROVED GAIT TECHNIQUES TO MINIMIZE RISK OF INJURY. Goal Provider Goal - PATIENT/CAREGIVER WILL DEMONSTRATE IMPROVED BALANCE AND REDUCE THE RISK OF FALLS AND INJURY. Goal Provider Goal - PATIENT/CAREGIVER WILL DEMONSTRATE/VERBALIZE UNDERSTANDING OF RECOMMENDATIONS TO INCREASE SAFETY IN THE HOME AND FALL PREVENTION. Goal Provider Goal - PIECE DYEING MACHINE TENDER TO COMPLETE EVALUATION FOR THE ENHANCEMENT OF THE PATIENTS SOCIAL AND EMOTIONAL FACTORS. Progress Notes Progress Notes <paragraph>[Visit Date: 2024 by FERMIN ALFREDO PT]:</paragraph><paragraph>03/03: PATIENT SEEN FOR FOLLOW UP VISIT. DENIES FALLS OR CHANGES TO MEDICATION REGIMENT. MEDICATIONS RECONCILED WITHOUT ISSUES. DENIES SIGNIFICANT PAIN AT TIME OF VISIT. PATIENT REPORTS FEELING SICK WITHOUT NAUSEA/VOMITING/DIARRHEA, REPORTS FEELING GENERALIZED MALAISE. VSS THROUGHOUT VISIT TODAY. HEP ESTABLISHED WITH PATIENT CONSISTING OF THE FOLLOWING: [id number] TRANSFER TRAINING FOR 2 SETS X10 REPETITIONS, STANDING MARCHES WITH SINGLE UPPER EXTREMITY SUPPORT FOR 2 SETS X30 REPETITIONS, STANDING HIP ABDUCTION WITHOUT RESISTANCE FOR 2 SETS X10 REPETITIONS, STANDING HIP EXTENSION WITH RESISTANCE FOR 2 SETS X10 REPETITIONS. PATIENT REQUIRED INTERMITTENT VERBAL/TACTILE CUES AND DEMONSTRATION FOR PROPER SEQUENCING AND TECHNIQUE AND FOR AVOIDING COMPENSATORY STRATEGIES WITH ABOVE MENTIONED LOWER EXTREMITY THEREX. PATIENT IS IMPULSIVE AND DEMONSTRATES IMPAIRED MOTOR CONTROL AT TIMES, RUSHING WITH MAJORITY OF EXERCISE. EDUCATED PATIENT ON USE OF CORRECT FORM AND PACING FOR ACHIEVING APPROPRIATE EFFECTS WITH LOWER EXTREMITY THEREX AND PATIENT VERBALIZED UNDERSTANDING, REPORTS THAT SHE IS IMPULSIVE AT BASELINE. PATIENT ABLE TO PERFORM TRANSFERS WITH SUPERVISION DUE TO INTERMITTENT NEED FOR VERBAL CUES. PATIENT ABLE TO PERFORM GAIT TRAINING 100 FEET INTERVALS X2 WITHOUT ASSISTIVE DEVICE AND CLOSE SUPERVISION, NARROW BASE OF SUPPORT WITH POOR TOE CLEARANCE APPRECIATED, EDUCATED PATIENT ON INCREASING BASE OF SUPPORT WITH USE OF GREEN THERABAND AROUND KNEES WITH EMPHASIS ON DECREASING KNEE VALGUS. PATIENT TOLERATED SESSION WELL, RP . EDUCATED PATIENT ON-CALL POLICY, SURVEY, AND ON-CALL.</paragraph> Encounters Start Date/Time End Date/Time Encounter Type Admission Type Attending [facility] Care Department Encounter ID Discharge Date Discharge Status Discharge Condition Discharge Reason Percent Goals Met 2024-02-23 00:00:00 2024-04-22 00:00:00 Outpatient NEW ADMISSION FERMIN ALFREDO [facility] [id number] 28.57
--- OUTSIDE RECORDS SUMMARY | 2024-03-08 15:11 | XMS_ITS | Clinical Summary ---
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 BALLISTICS EXPERT (CURRENT) USE OF ASPIRIN Active 02-09 00:00: 00 ALF (CURRENT) USE OF ANTITHROMBOT ICS/ANTIPLAT ELETS Active 02-09 00:00: 00 FORENSIC BALLISTICS EXPERT (CURRENT) USE OF INHALED STEROIDS Active 02-09 [...] tablet,veto yed release 02-15 00:00: 00 Yes [id number] 1 tablet DAILY 1 tablet DAILY (route: oral) Med Classific ation: Gastroint estinal Therapy Agents spironolact one 25 mg tablet 02-15 00:00: 00 Yes [id number] 1 tablet DAILY 1 tablet DAILY (route: oral) Med Classific ation: Cardiovas cular Therapy Agents theophyllin e ER 400 mg tablet,exte nded release 24 hr 2023-02 00:00: 00 Yes [id number] 1 tablet DAILY 1 tablet DAILY (route: oral) Med Classific ation: Respirato ry Therapy Agents Trelegy Ellipta 200 mcg-62.5 mcg-25 mcg powder for inhalation 2023-02 00:00: 00 Yes [id number] 1 inhalat ion DAILY 1 inhalation DAILY (route: inhalation ) Med Classific ation: Respirato ry Therapy Agents albuterol sulfate HFA 90 mcg/actuati on aerosol inhaler 2023-02 00:00: 00 Yes [id number] Per instruc tions DIRECTED Per instructio ns DIRECTED (route: inhalation ) Med Classific ation: Respirato ry Therapy Agents amiodarone 200 mg tablet 2023-02 00:00: 00 Yes [id number] 1 tablet DAILY 1 tablet DAILY (route: oral) Med Classific ation: Cardiovas cular Therapy Agents aspirin 81 mg tablet,veto yed release 2023-02 0- 00:00: 00 Yes [id number] 1 tablet DAILY 1 tablet DAILY (route: oral) Med Classific ation: Hematolog ical Agents clopidogrel 75 mg tablet 2023-02 2- 00:00: 00 Yes [id number] 1 tablet DAILY 1 tablet DAILY (route: oral) Med Classific ation: Hematolog ical Agents ipratropium 0.5 mg-albutero l 3 mg (2.5 mg base)/3 mL nebulizatio n soln 2023-02 00:00: 00 Yes [id number] Per instruc tions DIRECTED Per instructio ns DIRECTED (route: inhalation ) Med Classific ation: Respirato ry Therapy Agents Lamictal 100 mg tablet 2023-02 00:00: 00 Yes [id number] 1 tablet EVERY AM 1 tablet EVERY AM (route: oral) Med Classific ation: Central Nervous System Agents Lamictal 200 mg tablet 2023-02 00:00: 00 Yes [id number] 1 tablet DAILY 1 tablet DAILY (route: oral) Med Classific ation: Central Nervous System Agents loratadine 10 mg capsule 2023-02 00:00: 00 Yes [id number] 1 capsule DAILY 1 capsule DAILY (route: oral) Med Classific ation: Respirato ry Therapy Agents losartan 50 mg tablet 2023-02 00:00: 00 Yes [id number] 1 tablet DAILY 1 tablet DAILY (route: oral) Med Classific ation: Cardiovas cular Therapy Agents oxybutynin chloride ER 10 mg tablet,exte nded release 24 hr 2023-02 00:00: 00 Yes [id number] 1 tablet EVERY AM 1 tablet EVERY AM (route: oral) Med Classific ation: Genitouri nary Therapy tretinoin 0.025 % topical cream 2023-02 00:00: 00 Yes [id number] Per instruc tions DAILY Per instructio ns DAILY (route: topical) Med Classific ation: Dermatolo gical Wellbutrin SR 200 mg tablet, 12 hr sustained-r elease 2023-02 00:00: 00 Yes [id number] 1 tablet 2 TIMES DAILY 1 tablet [...] EMOTIONAL FACTORS IDENTIFIED DURING EVALUATION, PATIENT REQUESTED BOOKMOBILE CLERK CONSULT IN FOR EMOTIONAL SUPPORT/COMMUNITY RESOURCES PATIENT HAS HAD INCREASED DEPRESSION IN LIGHT OF LOSING FAMILY MEMBERS LAST YEAR [code = FLOAT REMOVER TO EVALUATE PATIENT SECONDARY TO SOCIAL AND EMOTIONAL FACTORS IDENTIFIED DURING EVALUATION, PATIENT REQUESTED BOOKMOBILE CLERK CONSULT IN FOR EMOTIONAL SUPPORT/COMMUNITY RESOURCES PATIENT [...] AND FALL PREVENTION. Goal Provider Goal - FLOAT REMOVER TO COMPLETE EVALUATION FOR THE ENHANCEMENT OF [...] ESTABLISHED WITH PATIENT CONSISTING OF THE FOLLOWING: [id number] TRANSFER TRAINING FOR 2 SETS X10 REPETITIONS, [...] End Date/Time Encounter Type Admission Type Attending [facility] Care Department Encounter ID Discharge Date Discharge Status Discharge Condition Discharge Reason Percent Goals Met 2024-02-23 00:00:00 2024-04-22 00:00:00 Outpatient NEW ADMISSION FERMIN ALFREDO [facility] [id number] 28.57
--- OUTSIDE RECORDS SUMMARY | 2024-03-08 15:12 | XMS_ITS | Patient Health Record ---
Author Organization [facility] Address [address] [place] [id number] Care Team Providers Care Production Cost Estimator Name Role Phone Eddie Messina MD Primary Care Provider Lalo Hillman [phone] REASON FOR REFERRAL No Information MEDICATIONS Medication SIG (Take, Route, Frequency, Duration) Notes Start Date End Date Status Advair Diskus 250-50 MCG/DOSE INHALE 1 PUFF BY MOUTH 2 TIMES A DAY Inhalation for 90 Active Singulair 10 MG 1 tablet Orally Once a day Active Claritin 10 MG 1 tablet Orally Once a day Active oxyBUTYnin Chloride ER 10 MG TAKE 1 TABLET BY MOUTH EVERY DAY IN THE MORNING Oral for 90 Active lamoTRIgine 200 MG TAKE 1 TABLET BY IAN TH TWICE A DAY Oral for 90 Active Carafate 1 GM/10ML 10 ml on an empty stomach Orally Twice a day Active Wellbutrin SR 200 MG Orally Active Vitamin D 1000 UNIT 1 tablet Orally Once a day Not-Taking Metoprolol Succinate ER 25 MG 1 tablet Orally Once a day Active Pantoprazole Sodium 40 MG 1 tablet Once a day Active Gabapentin 100 MG [address] ee times a day Active Atorvastatin Calcium 40 MG TAKE 1 TABLET BY MOUTH EVERY DAY Oral for 30 Active ProAir HFA 108 (90 Base) MCG/ACT INHALE 2 PUFFS BY MOUTH 4 TIMES A DAY Inhalation for 25 Active IMMUNIZATIONS Vaccine Route Administration Date Status Comme nts Influenza Unknown 01/12/2018 Refused Influenza Unknown 06/04/2018 Refused SOCIAL HISTORY Sex Assigned At : Social History Observation Description Sex Assigned At Unknown PROBLEMS Problem Type ICD Code Onset Dates Problem Status W/U Status Risk SNOMED Code Notes Problem History of adenomatous polyp of colon (Z86.010) Active confirmed 152767511 Problem Encounter for screening for malignant neoplasm of colon (Z12.11) Active confirmed 889952393 Problem Encounter for screening for malignant neoplasm of rectum (Z12.12) Active confirmed Screening for malignant neoplasm of rectum (722890316) Problem Irritable bowel syndrome with both constipation and diarrhea (K58.2) Active confirmed 00496844 Problem Gastroesophageal reflux disease, esophagitis presence not specified (K21.9) Active confirmed 857756527 Problem Anemia due to other cause, not classified (D64.89) Active confirmed 215953443 Problem Iron deficiency anemia, unspecified iron deficiency anemia type (D50.9) Active confirmed 10687804 Problem Gastroesophageal reflux disease with esophagitis (K21.0) Active confirmed 575412482 Problem Erosive esophagitis (K22.10) Active confirmed 00039185 Problem Hiatal hernia (K44.9) Active confirmed 27426370 Encounters Encounter Location Date Provider Diagnosis [facility] [address] [place] [address] 10/14/[address] [facility] [address] [place] [address] 10/14/2023 Lalo Vaughn PLAN OF TREATMENT Pending Test Test Name Order Date IRON + IBC (FE) 06/03/2016 IRON + IBC (FE) 07/12/2016 FERRITIN 06/03/2016 FERRITIN 07/12/2016 VITAMIN B12 AND FOLATE 06/03/2016 CBC w DIFF 06/03/2016 CBC w DIFF 07/12/2016 CELIAC PANEL #10 06/03/2016 Future Test Test Name Order Date UPPER GI ENDOSCOPY 06/03/2016 COLONOSCOPY 06/03/2016 UPPER GI ENDOSCOPY 01/12/2018 Insurance Providers Payer Name Payer Address Payer Phone Subscriber Number Group Number Insured Name Patient Relationship to Insured Coverage Start Date Coverage End Date [employer] [address] [place] [phone] [id number] DUNIA HARTMAN Self - patient is the insured MEDICAL (GENERAL) HISTORY Medical History History ICD Code Tubular adenomas removed in 2004; negative colonoscopy 09/2010 and 07/2017, except for diverticulosis Denies [place],DM,CVA,Lung disease,renal dise ase Negative cardiac cath at [facility] [place] 2011 Arthritis- goes to PT left knee Depression HTN ADHD Urinary incontinence prolapse GERD--EGD in 07/2017 erosive esophagitis with moderate-sized HH---biopsies negative for Woodard's; F/U EGD in 01/2018 revealed complete healing of the esophagitis and no Woodard's prolapse uterus / urinary incontinence Surgical History Surgery Date(Month/Year) Left inguinal hernia Right bunion/hammer toe Tonsillectomy Bariatric surgery [place] [facility] [place] Hiatal hernia repair [place] [facility] [place]2018
--- OUTSIDE RECORDS SUMMARY | 2024-03-08 15:12 | XMS_ITS | Data Portability ---
Author Organization [facility], [facility] [address] Address [address] [place] [address] Care Team Providers Care Dry Cleaning Machine Operator Helper Name Role Phone PARAMJIT SMITH Primary Care Provider Assessment No assessment recorded. Plan of Treatment Reminders Order Date Submit Date Provider Last Modified By Organization Details Last Modified Time Details Appointments None recorded. Lab rapid SARS CoV 2 Ag, QL IA, respiratory specimen 2022 023 [facility], [address] [place] [address], [id number], 3 10:28:00 Referral None recorded. Procedures None recorded. Surgeries None recorded. Imaging None recorded. Medication Orders prednisone 20 mg tablet 2022 023 [id number] [address] [place], [address], 3 09:56:02 Allergy Relief (fluticason e) 50 mcg/actuati on nasal spray,suspe nsion 2022 023 [id number], [address] [place], [address], 3 10:29:44 benzonatate 200 mg capsule 2022 023 [id number], [address] [place], [address], 3 10:29:43 prednisone 20 mg tablet 2022 023 [id number], [address] [place] [address], [address], 10:29:44 Patient TargetsNo targets recorded. Patient Instructions Encounter Date Encounter Id Patient Instructions Last Modified By Organization Details Last Modified Time 02/15/2022 [id number] As discussed in office cause of your asthma exacerbation is likely an infection or a trigger. When sick it can trigger asthma. Therefore, medications were sent to your pharmacy. Here are some of the things you can do to prevent asthma flare/exacerbation s: Remember if any shortness of breath or gasping for air call 911 or go to the nearest Emergency Department. It was nice to visit with you today and thank you for choosing [facility] for your healthcare needs! Use your ALBUTEROL (ProAir/Ventolin). This medication is to be used every 4-6 hours as needed for cough, shortness of breath, or chest tightness. Possible side effects for this medication include feeling nervous, fast heart rate, and nausea. I have prescribed you a course of steroids for your asthma exacerbation. Asthma triggers to avoid: ? dust mites, indoor mold, pet dander, pollen, and outdoor mold by dusting and vacuuming home frequently. ? Also avoid exposure to strong odors, perfumes, chemicals, paint, cosmetics, sprays, and tobacco smoke. ? Patient to also avoid strenuous exercise, especially outside activities when cold weather and environmental allergens are increased. Recommendations: ? Dust and vacuum home frequently with a HEPA (high efficiency particulate air) filter. Add HEPA filters to central air conditioning and heating. ? Do not keep windows open. Please follow up with your primary care physician if not improved in 5-7 days or sooner if your symptoms are worsening. Please go directly to the ER or call 911 for any increased work of breathing, wheezing that is worsening even after using your inhalers, confusion, inability to speak or swallow saliva, shortness of breath, or other worsening symptoms. Please message us with any questions! Take Care and I hope you feel better. [email or web address] Not available 02/15/2022 10:27:06 03/01/2022 [id number] cough: care instructions Not available 03/01/2022 10:28:00 Acute bronchitis is a condition of the lower airway with self-limited inflammation that will eventually resolve on it's own. It is usually caused by a viral infection in 95% of cases, therefore an antibiotic is not needed. Unfortunately, these symptoms can persist for approximately 3 weeks, with occasional persistence for 4-6 weeks. Treatment for bronchitis is aimed at focusing on helping to relieve your symptoms and you can implement the following remedies below, as long as they do not interfere with your current medications, past medical history, or go against advice you have received from your primary care provider and/or a specialist. If you are concerned you can always ask a pharmacist your primary care provider prior to their use. Not available 03/01/2022 10:29:38 If you test positive for COVID-19, stay home for at least 5 days and isolate from others in your home. You are likely most infectious during these first 5 days. Wear a high-quality mask if you must be around others at home and in public. Do not go places where you are unable to wear a mask. For travel guidance, see [facility]? s Travel webpage. Do not travel. Stay home and separate from others as much as possible. Use a separate bathroom, if possible. Take steps to improve ventilation at home, if possible. Don? t share personal household items, like cups, towels, and utensils. Monitor your symptoms. If you have an emergency warning sign (like trouble breathing), seek emergency medical care immediately. If you had symptoms and: Your symptoms are improving You may end isolation after day 5 if: You are fever-free for 24 hours (without the use of fever-reducing medication). Your symptoms are not improving Continue to isolate until: You are fever-free for 24 hours (without the use of fever-reducing medication). Your symptoms are improving. Regardless of when you end isolation Until at least day 11: Avoid being around people who are more likely to get very sick from COVID-19. Remember to wear a high-quality mask when indoors around others at home and in public. Do not go places where you are unable to wear a mask until you are able to discontinue masking (see below). For travel guidance, see [facility]? s Travel webpage. Not available 03/01/2022 10:29:30 Reason for Referral None Reported. Results Created Date Observation Date Name Description Value Unit Range Abnormal Flag Note LastModifiedBy Organization Detail LastModifiedTime 03/01/1903/01/2022 rapid SARS CoV 2 Ag, QL IA, respi rator y speci men Unknown Analyte Normal =Negat aki Not Available [address] [place], [address], 03/01/2022 09:52:23 03/01/19 23 03/01/2022 rapid SARS CoV 2 Ag, QL IA, respi rator y speci men Unknown Analyte negati ve Not Available [facility] [address] [facility], [place], [address], 03/01/2022 09:52:23 Result Notes None recorded. Problems Name Problem SNOMED Code Status Onset Date Resolution Date Notes Provider Name and Address Organization Details Recorded Time Asthma 349853169 Active 2022 ADRIEN LUPICA null, PA - [facility] 3 09:26:28 Hypertensive disorder 68941059 Active 2022 ADRIEN LUPICA null, PA - [facility] 3 09:26:43 Gastroesophage al reflux disease 784419735 Active 2022 ADRIEN LUPICA null, PA - [facility] 3 09:26:56 Arthritis 0762020 Active 2022 ADRIEN LUPICA null, PA - [facility] 3 09:27:07 Depressive disorder 29053536 Active 2022 ADRIEN LUPICA null, PA - [facility] 3 09:27:13 Urinary incontinence 110134603 Active 2022 ADRIEN LUPICA null, PA - [facility] 3 09:27:23 Atrial fibrillation 54190833 Active 2022 ADRIEN LUPICA null, PA - [facility] 3 09:33:19 Notes:08/2021 had covid--was in hospital x3 weeks with b/l covid pneumonia & collapsed lung Problem Notes None recorded. Procedures Surgical History Date Name Laterality Status Provider Name and Address Organization Details Recorded Time bypass of stomach completed ADRIEN Becker PA - [facility] 02/15/2022 09:29:32 excision of bunion completed ADRIEN PEDERSON PA - [facility] 02/15/2022 09:29:40 inguinal hernioplasty completed ADRIEN PEDERSON PA - [facility] 02/15/2022 09:29:49 Imaging Results None recorded. Procedure Notes None recorded. Medical Equipment None Reported. Allergies No known drug allergies Medications Name Sig Start Date Stop Date Status Note LastModified by Organization Details LastModified Time celecoxib 200 mg capsule TAKE 1 CAPSULE BY MOUTH EVERY DAY 02/15 completed Not Available Not Available Not Available amoxicillin 500 mg capsule TAKE 4 CAPS BY MOUTH 1 HOUR PRIOR TO APPOINTME NT 02/15 completed Not Available Not Available Not Available prednisone 10 mg tablet TAKE 4 TABLETS BY MOUTH EVERY DAY FOR 7 DAYS 03/01 completed Not Available Not Available Not Available lamotrigine 200 mg tablet TAKE 1 TABLET BY MOUTH EVERY DAY active Not Available Not Available No t Available oxybutynin chloride ER 10 mg tablet,exte nded release 24 hr TAKE 1 TABLET BY MOUTH EVERY DAY IN THE MORNING active Not Available Not Available No t Available benzonatate 200 mg capsule Take 1 capsule 3 times a day by oral route as directed for 5 days. 2022 active Not Available Not Available Not Avai lable diltiazem CD 240 mg capsule,ext ended release 24 hr TAKE 1 CAPSULE BY MOUTH EVERY DAY 02/15 completed Not Available Not Available Not Available prednisone 20 mg tablet Take 2 tablets every day by oral route in the morning for 5 days. 2022 active Not Available Not Available Not Avai lable diltiazem CD 360 mg capsule,ext ended release 24 hr TAKE 1 CAPSULE BY MOUTH EVERY DAY active Not Available Not Available No t Available amlodipine 2.5 mg tablet TAKE 1 TABLET BY MOUTH EVERY DAY 02/15 completed Not Available Not Available Not Available lamotrigine 25 mg tablet TAKE 2 TABLETS BY MOUTH DAILY AT NIGHT 02/15 completed Not Available Not Available Not Available nafcillin 10 gram solution for injection 02/15 completed Not Available Not Available Not Available benzonatate 100 mg capsule TAKE 1 TABLET BY MOUTH 3 TIMES A DAY NEEDED FOR COUGH 02/15 completed Not Available Not Available Not Available cephalexin 500 mg capsule TAKE 1 CAPSULE BY MOUTH TWICE A DAY FOR 7 DAYS 02/15 completed Not Available Not Available Not Available pantoprazol e 40 mg tablet,veto yed release TAKE 1 TABLET BY MOUTH EVERY DAY active Not Available Not Available No t Available montelukast 10 mg tablet TAKE 1 TABLET BY MOUTH EVERY MORNING active Not Available Not Available No t Available digoxin 125 mcg (0.125 mg) tablet TAKE 1 TABLET BY MOUTH EVERY DAY active Not Available Not Available No t Available estradiol 0.01% (0.1 mg/gram) vaginal cream INSERT 1 GRAM VAGINALLY 3 TIMES WEEKLY active Not Available Not Available No t Available albuterol sulfate HFA 90 mcg/actuati on aerosol inhaler INHALE 2 PUFFS BY MOUTH 4 TIMES A DAY active Not Available Not Available No t Available fluticasone propionate 50 mcg/actuati on nasal spray,suspe nsion USE 1 SPRAY IN EACH NOSTRIL TWICE A DAY DIRECTED active Not Available Not Available No t Available lamotrigine 100 mg tablet TAKE 1 TABLET BY MOUTH EVERY DAY AT NIGHT active Not Available Not Available No t Available amoxicillin 875 mg-potassiu m clavulanate 125 mg tablet TAKE 1 TABLET BY MOUTH 2 TIMES PER DAY FOR 10 DAYS WITH FOOD 02/15 completed Not Available Not Available Not Available bupropion HCl SR 200 mg tablet,12 hr sustained-r elease TAKE 1 TABLET BY MOUTH TWICE A DAY active Not Available Not Available No t Available nitrofurant oin monohydrate /macrocryst als 100 mg capsule TAKE 1 CAP BY MOUTH EVERY 12 HOURS WITH FOOD X 5 DAYS 02/15 completed Not Available Not Available Not Available Flovent HFA 110 mcg/actuati on aerosol inhaler INHALE 2 PUFFS TWICE A DAY RINSE THROAT AFTER USE active Not Available Not Available No t Available Eliquis 5 mg tablet TAKE 1 TABLET BY MOUTH TWICE A DAY active Not Available Not Available No t Available Wixela Inhub 100 mcg-50 mcg/dose powder for inhalation INHALE 1 INHALATIO N 2 TIMES A DAY RINSE MOUTH AND THROAT AFTER USE active Not Available Not Available No t Available Tiadylt ER 240 mg capsule,ext ended release TAKE 1 CAPSULE BY MOUTH EVERY DAY 02/15 completed Not Available Not Available Not Available Vitals Date Recorded Body height Provider Name an d Address Organization Details Last Updated DateTime 02/15/2022 157.48 cm ADRIEN PEDERSON PA - [facility] 02/15/2022 09:22:29 Date Recorded Body mass index (BMI) Body weight Provider Name and Address Organization Details Last Updated DateTime 02/15/2022 24.7 kg/m2 16450.97 g ADRIEN PEDERSON PA - [facility] 02/15/2022 09:22:32 Date Recorded Body temperature Provider Name a nd Address Organization Details Last Updated DateTime 02/15/2022 97.1 [degF] ADRIEN PEDERSON PA - [facility] 02/15/2022 09:30:16 Date Recorded Respiratory rate Provider Name a nd Address Organization Details Last Updated DateTime 02/15/2022 16 /min ADRIEN PEDERSON PA - [facility] 02/15/2022 09:30:46 Date Recorded Oxygen saturation Oxygen saturation in Arterial blood by Pulse oximetry Provider Name and Address Organization Details Last Updated DateTime 02/15/2022 100 % 100 % ADRIEN PEDERSON PA - [facility] 02/15/2022 09:31:42 Date Recorded Heart rate Provider Name an d Address Organization Details Last Updated DateTime 02/15/2022 70 /min ADRIEN PEDERSON PA - [facility] 02/15/2022 09:31:51 Date Recorded Body height Provider Name an d Address Organization Details Last Updated DateTime 03/01/2022 157.48 cm ADRIEN PEDERSON PA - [facility] 03/01/2022 09:52:12 Date Recorded Body temperature Provider Name a nd Address Organization Details Last Updated DateTime 03/01/2022 97 [degF] ADRIEN PEDERSON PA - [facility] 03/01/2022 09:52:56 Date Recorded Oxygen saturation Oxygen saturation in Arterial blood by Pulse oximetry Provider Name and Address Organization Details Last Updated DateTime 03/01/2022 98 % 98 % ADRIEN PEDERSON PA - [facility] 03/01/2022 09:53:30 Date Recorded Heart rate Provider Name an d Address Organization Details Last Updated DateTime 03/01/2022 63 /min ADRIEN PEDERSON PA - [facility] 03/01/2022 09:53:27 Date Recorded Respiratory rate Provider Name a nd Address Organization Details Last Updated DateTime 03/01/2022 16 /min ADRIEN PEDERSON PA - [facility] 03/01/2022 09:53:38 Date Recorded Body mass index (BMI) Body weight Provider Name and Address Organization Details Last Updated DateTime 03/01/2022 24.7 kg/m2 69206.97 g ADRIEN PEDERSON PA - [facility] 03/01/2022 09:53:51 Date Recorded Systolic blood pressure Diastolic blood pressure Provider Name and Address Organization Details Last Updated DateTime 02/15/2022 163 mm[Hg] 83 mm[Hg] ADRIEN PEDERSON PA - [facility] 02/15/2022 09:33:04 Date Recorded Systolic blood pressure Diastolic blood pressure Provider Name and Address Organization Details Last Updated DateTime 03/01/2022 162 mm[Hg] 81 mm[Hg] ADRIEN PEDERSON PA - [facility] 03/01/2022 09:54:56 Social History Question Answer Notes LastModified by Organizat ion Details LastModified Time Tobacco Smoking Status Former Smoker ADRIEN PEDERSON jose c, PA - [facility] 02/15/2022 09:29:00 What Is Your Level Of Alcohol Consumption? None [email or web address] Information not available 02/15/2022 Do You Use Any Illicit Or Recreational Drugs? No [email or web address] Information not available 02/15/2022 Have You Recently Traveled Abroad? No [email or web address] Information not available 02/15/2022 Do You Or Have You Ever Used Any Other Forms Of Tobacco Or Nicotine? No [email or web address] Information not available 02/15/2022 Sex: Unknown Functional Status None recorded. Mental Status None recorded. Family History Relationship Description Onset Age of this Age Resolved Age Notes LastModified by Organization Details LastModified Time Father Asthma [email or web address] Not available 02/15/2022 09:28:09 Daughter Asthma x2 daught ers [email or web address] Not available 02/15/2022 09:28:09 Medical History No medical history recorded. Gynecological HistoryNo gynecological history recorded. Obstetrics History GPAL:G 0 P 0 0 0 0 Past Encounters Encounter ID Performer Location Encounter Start Date Encounter Closed Date Diagnosis/Indication Diagnosis SNOMED-CT Code Diagnosis ICD10 Code Diagnosis Note [id number] [address] [address] [place] [address] 03/25/2019 17:45:10 03/25/2019 18:08:13 [id number] [address] [place] [address] 05/27/2018 18:40:43 05/27/2018 19:22:07 [id number] [address] [place] [address] 02/27/2019 14:56:29 02/27/2019 15:42:02 [id number] [address] [place] [address] 10/30/2017 19:21:18 10/30/2017 19:55:57 [id number] [address] [place] [address] 10/02/2018 18:49:34 10/02/2018 19:27:17 [id number] [address] [place] [address] 12/14/2020 18:12:30 12/14/2020 19:34:48 [id number] [address] [place] [address] 11/09/2018 19:59:54 11/09/2018 20:41:23 [id number] [address] [place] [address] 10/06/2021 13:31:31 10/06/2021 14:40:09 [id number] [address] [place] [address] 03/20/2017 19:22:24 03/20/2017 19:56:42 [id number] [address] [address] [place] [address] 03/12/2017 17:09:00 03/12/2017 18:31:15 [id number] [address] [place] [address] 11/22/2017 13:22:24 11/22/2017 14:43:05 [id number] [address] [facility] [place] [address] 01/02/2018 18:21:27 01/02/2018 19:54:08 [id number] [address] [facility] [place] [address] 02/15/2017 17:19:32 02/15/2017 18:04:10 [id number] [address] [place] [address] [place] [address] 01/23/2018 18:56:39 01/23/2018 19:33:12 [id number] [address] [place] [address] [place] [address] 07/03/2017 14:51:55 07/03/2017 15:50:48 [id number] ANIYA RAZO [address] [place] [address] 02/15/2022 09:04:52 02/15/2022 10:31:22 Exacerbation of intermittent asthma 715156771 J45.21 Follow up with your pulmonolog ist as scheduled at the end of this month. [id number] Brady Villarreal NP [address] [place] [address] 03/01/2022 08:38:51 03/01/2022 10:36:25 Exposure to SARS-CoV-2 096194911 Z20.822 Acute bronchitis 7483332 2 J20.9 Health Concerns Section Related Observation LastModified by Organization Detai ls LastModified Time None Recorded Concern Status LastModified by Organization Details LastModified Time None Recorded Advance Directives Directive None Recorded Payers Encounter Date Sequence Insurance Name Policy Number Policy Hay Covered Member ID Hay Member ID Guarantor Name 02/15/2022 1 [employer] (MEDICARE REPLACEMENT PPO) [id number] Shilpa Hartman [id number] Shilpa Hartman 03/01/2022 1 [employer] (MEDICARE REPLACEMENT PPO) [id number] Shilpa Hartman [id number] Shilpa Hartman Notes Date Note Type Note Provider Name and Address Organization Details Recorded Time 02/15/2022 text/html Shilpa is a 71 yo F with PMH asthma, arthritis, afib, GERD, HTN and depression here for exacerbation of asthma x 1 week. Notes medicine is not holding me . She reports wheezing on & off with congestion, cough. Denies cold symptoms. States she feels it is her asthma. PCP changed Rx to advair about a month ago. States she got covid related PNA in July and having issues with her asthma since then. No new symptoms. Had a course of prednisone for 1 week in August which helped her symptoms and asking for same. Has apt with her administrator social welfare in a couple weeks for f/u. Denies SOB. Had wheezing this morning which resolved. Notes wheezing seems to be worse in the mornings, and relates this to post nasal drip. No LE edema. ANIYA ARCEO JD [address] [place], [address], [place] [facility] 02/15/2022 10:31:07 03/01/2022 text/html CongestionReport ed bypatient.Notes:follow up for chest congestion, nasal congestion with post nasal drip x 3 days. denies any fever or fever with chills. no SOB or respiratory distress. Brady Villarreal NP [address] [place], [address], [place] [email or web address] 03/01/2022 10:30:08 OBGyn Episode No OBEpisode recorded.
--- OUTSIDE RECORDS SUMMARY | 2024-03-08 15:12 | XMS_ITS ---
Author Organization [facility] Address [address] [place] [address] Care Team Providers Care Ground Support Equipment Fitter Name Role Phone Eddie Messina MD Primary Care Provider Lalo Hillman [phone] REASON FOR VISIT Pt no show Encounters Encounter Location Date Provider Diagnosis [facility] [address] [place] [address] 10/14/2023 Lalo Vaughn PLAN OF TREATMENT No Information
--- OUTSIDE RECORDS SUMMARY | 2024-03-08 15:12 | XMS_ITS ---
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 Generated for Reba galicia/Margot/eTransmitting on:?03/08/2024 03:12 PM EST
--- OUTSIDE RECORDS SUMMARY | 2024-03-08 15:13 | XMS_ITS | Patient Health Record ---
Author Organization [facility] Address [address] [place] [address] Care Team Providers Care Pasteurizer Helper Name Role Phone Eddie Messina MD Primary Care Provider Janey Fontenot Unavailable [phone] Reason For Referral No Information Encounters Encounter Location Date Provider Diagnosis [facility] [address] [place] [address] 03/08/2024 Janey Allen Plan Of Treatment Next Appt Details Provider Name:Janey lu, 05/17/2024 02:00:00 PM, [address] [place], [address], Insurance Providers Payer Name Payer Address Payer Phone Subscriber Number Group Number Insured Name Patient Relationship to Insured Coverage Start Date Coverage End Date Medicare [facility] [address] [place] [phone] Al Hartman Self - patient is the insured [employer] [address] [place] [phone] [id number] Al Hartman Self - patient is the insured
== END 2024-03-08 14:38 | disposition home or self-care (01) ==
PROVIDERS: PCP Internal Medicine; Visit Provider Internal Medicine Pulmonary Disease
DX: J45.909 Unspecified asthma, uncomplicated (principal); R06.09 Other forms of dyspnea
CPT/HCPCS: 99214

== ENCOUNTER → 2024-03-08 14:13 | Outpatient (BNVA) | payer MEDICARE, SELFPAY ==
[2023-09-24 15:56] VITALS: BMI 25.2
== END ==
PROVIDERS: PCP Internal Medicine; Visit Provider Internal Medicine Pulmonary Disease
DX: J45.909 Unspecified asthma, uncomplicated (principal); R06.09 Other forms of dyspnea; Z87.891 Personal history of nicotine dependence
CPT/HCPCS: 99212

== ENCOUNTER → 2024-03-18 13:31 | Outpatient (AMB) | END | disposition home or self-care (01) | CPT/HCPCS: 99214 ==

== ENCOUNTER → 2024-03-18 13:31 | Outpatient (BNVA) | payer MEDICARE, SELFPAY ==
[2023-09-24 15:56] VITALS: BMI 25.2
== END ==
PROVIDERS: PCP Internal Medicine; Visit Provider Internal Medicine Pulmonary Disease
DX: J45.901 Unspecified asthma with (acute) exacerbation (principal); I10 Essential (primary) hypertension; Z87.891 Personal history of nicotine dependence
CPT/HCPCS: 99212

== ENCOUNTER 2024-03-31 13:51 | Outpatient (REF) | payer MEDICARE, SELFPAY ==
[2023-09-24 15:56] VITALS: BMI 25.2
--- OUTSIDE RECORDS SUMMARY | 2024-03-31 15:40 | XMS_ITS | Clinical Summary ---
Author Organization [facility] Facility Address [address] [place] [address] Care Team Providers Care Insights Strategist Name Role Phone Eddie Messina MD Primary Care Provider [phone] Allergies No known active allergies Medications albuterol [...] patient's age to complete this topic Insurance [facility] Care Teams Insights Strategist Relationship Specialty Start Date End Date Eddie Messina MD D[facility]BAR D[facility] PERSON [address] [place] [address] [place] PCP - General Internal Medicine 05/11/20
--- OUTSIDE RECORDS SUMMARY | 2024-03-31 15:40 | XMS_ITS | Clinical Summary ---
Author Organization Unknown Care Team Providers Care Addiction Treatment Counselor Name Role Phone SARAH PASCUAL, PARAMJIT Unavailable Unavailable PARMINDER BOOK SOLICITOR, SY Unavailable Unavailab latisha ALFREDO PT, FERMIN Unavailable Unavailable Payers Payer Name Policy Type Policy Number Effective Date Expira tion Date [employer] MEDICARE ADVANTAGE FFS - ORDER DRIVEN [id number] [place] [facility] [id number] Problems Condition Name Condition Details Condition Category [...] TRANSPORTATI ON INSECURITY Active 02-09 00:00: 00 SHELTER (CURRENT) USE OF ASPIRIN Active 02-09 00:00: 00 SHELTER (CURRENT) USE OF ANTITHROMBOT ICS/ANTIPLAT ELETS Active 02-09 00:00: 00 STATION EXAMINER (CURRENT) USE OF INHALED STEROIDS Active 02-09 [...] tablet,veto yed release 02-15 00:00: 00 Yes [id number] 1 tablet DAILY 1 tablet DAILY (route: oral) Med Classific ation: Gastroint estinal Therapy Agents spironolact one 25 mg tablet 02-15 00:00: 00 Yes [id number] 1 tablet DAILY 1 tablet DAILY (route: oral) Med Classific ation: Cardiovas cular Therapy Agents theophyllin e ER 400 mg tablet,exte nded release 24 hr 2023-02 00:00: 00 Yes [id number] 1 tablet DAILY 1 tablet DAILY (route: oral) Med Classific ation: Respirato ry Therapy Agents Trelegy Ellipta 200 mcg-62.5 mcg-25 mcg powder for inhalation 2023-02 00:00: 00 Yes [id number] 1 inhalat ion DAILY 1 inhalation DAILY (route: inhalation ) Med Classific ation: Respirato ry Therapy Agents albuterol sulfate HFA 90 mcg/actuati on aerosol inhaler 2023-02 00:00: 00 Yes [id number] Per instruc tions DIRECTED Per instructio ns DIRECTED (route: inhalation ) Med Classific ation: Respirato ry Therapy Agents amiodarone 200 mg tablet 2023-02 2-09 00:00: 00 Yes [id number] 1 tablet DAILY 1 tablet DAILY (route: oral) Med Classific ation: Cardiovas cular Therapy Agents aspirin 81 mg tablet,veto yed release 2023-02 0-31 00:00: 00 Yes [id number] 1 tablet DAILY 1 tablet DAILY (route: oral) Med Classific ation: Hematolog ical Agents clopidogrel 75 mg tablet 2023-02 2- 00:00: 00 Yes [id number] 1 tablet DAILY 1 tablet DAILY (route: oral) Med Classific ation: Hematolog ical Agents ipratropium 0.5 mg-albutero l 3 mg (2.5 mg base)/3 mL nebulizatio n soln 2023-02 2-16 00:00: 00 Yes [id number] Per instruc tions DIRECTED Per klarissa lazar DIRECTED (route: inhalation ) Med Classific ation: Respirato ry Therapy Agents Lamictal 100 mg tablet 2023-02 00:00: 00 Yes [id number] 1 tablet EVERY AM 1 tablet EVERY AM (route: oral) Med Classific ation: Central Nervous System Agents Lamictal 200 mg tablet 2023-02 00:00: 00 Yes [id number] 1 tablet DAILY 1 tablet DAILY (route: oral) Med Classific ation: Central Nervous System Agents loratadine 10 mg capsule 2023-02 00:00: 00 Yes [id number] 1 capsule DAILY 1 capsule DAILY (route: oral) Med Classific ation: Respirato ry Therapy Agents losartan 50 mg tablet 2023-02- 00:00: 00 Yes [id number] 1 tablet DAILY 1 tablet DAILY (route: oral) Med Classific ation: Cardiovas cular Therapy Agents oxybutynin chloride ER 10 mg tablet,exte nded release 24 hr 2023-02- 00:00: 00 Yes [id number] 1 tablet EVERY AM 1 tablet EVERY AM (route: oral) Med Classific ation: Genitouri nary Therapy tretinoin 0.025 % topical cream 2023-02- 00:00: 00 Yes [id number] Per instruc tions DAILY Per instructio ns DAILY (route: topical) Med Classific ation: Dermatolo gical Wellbutrin SR 200 mg tablet, 12 hr sustained-r elease 2023-02 00:00: 00 Yes [id number] 1 tablet 2 TIMES DAILY 1 tablet 2 TIMES DAILY (route: oral) Med Classific ation: Central Nervous System Agents azithromyci n 250 mg tablet 03-13 00:00: 00 03-17 23:59 :00 No [id number] Per instruc tions DIRECTED Per instructio ns DIRECTED (route: oral) Med Classific ation: Anti-Infe ctive Agents prednisone 10 mg tablet 03-12 00:00: 00 03-25 23:59 :00 No [id number] Per instruc tions DIRECTED Per instructio ns [...] EMOTIONAL FACTORS IDENTIFIED DURING EVALUATION, PATIENT REQUESTED [facility] CONSULT IN FOR EMOTIONAL SUPPORT/COMMUNITY RESOURCES PATIENT HAS HAD INCREASED DEPRESSION IN LIGHT OF LOSING FAMILY MEMBERS LAST YEAR [code = BUSH HOG OPERATOR TO EVALUATE PATIENT SECONDARY TO SOCIAL AND EMOTIONAL FACTORS IDENTIFIED DURING EVALUATION, PATIENT REQUESTED [facility] CONSULT IN FOR EMOTIONAL SUPPORT/COMMUNITY RESOURCES PATIENT [...] AND FALL PREVENTION. Goal Provider Goal - BUSH HOG OPERATOR TO COMPLETE EVALUATION FOR THE ENHANCEMENT OF THE PATIENTS SOCIAL AND EMOTIONAL FACTORS. Progress Notes Progress Notes <paragraph>[Visit Date: 2024 by RICHA ROMO]:</paragraph><paragraph>[facility] EVALUATION: DUNIA MAY IS A 73 YEAR OLD FEMALE RE[facility]ERRED [facility]ITALIZ[facility] FOR COVID AND ASHTMA EXACERBATION. PMH INCLUDES LEFT KNEE OA STATUS POST LEFT TKA, CARDIOMYOPATHY, CKD, ANEMIA, AFIB, ASTHMA, RECENT UTI, INSOMNIA AND HYPERTENSION. [facility] FACILITATED COMMUNITY RESOURCE ASSESSMENT AND LTC PLANNING [...] SERVICES TO HELP WITH CLEANING AND LAUNDRY. [facility] MADE A REFERRAL TO [facility]. DUNIA MAY ALSO WOULD LIKE A PSYCHOTHERAPIST. [facility] CALLED [facility] AND MADE REFERRAL. PATIENT IS ON THE WAITLIST. DUNIA MAY DOES NOT NEED ANY FURTHER ASSISTANCE FROM [facility] AT THIS TIME. [facility] PROVIDED CLOSURE BY RESTATING RESOURCES AVAILABLE IN THE COMMUNITY AND ENCOURAGED HER TO CONTACT [facility] IF THERE WAS ANYTHING ELSE THE RN BEHAVIORAL HEALTH COULD ASSIST WITH.</paragraph> Encounters Start Date/Time End Date/Time Encounter Type Admission Type Attending Clinicians Care Facility Care Department Encounter ID Discharge Date Discharge Status Discharge Condition Discharge Reason Percent Goals Met 2024-02-23 00:00:00 2024-04-22 00:00:00 Outpatient NEW ADMISSION FERMIN ALFREDO [facility] [id number] 38.89
[2024-03-31 17:39] LABS: Influenza A PCR NEGATIVE (Negative); Influenza B PCR NEGATIVE (Negative); Resp Syncy Virus RNA Qual PCR NEGATIVE (Negative); SARS COV2 PCR INHOUSE NEGATIVE (Negative)
== END 2024-03-31 13:52 | disposition home or self-care (01) ==
LOC: HO.LAB 13:51
PROVIDERS: Nurse Practitioner Family; PCP Internal Medicine
DX: J06.9 Acute upper respiratory infection, unspecified (principal)
CPT/HCPCS: 0241U; 99212

== ENCOUNTER 2024-03-31 13:51 | Outpatient (AMB) | payer MEDICARE, SELFPAY ==
[2023-09-24 15:56] VITALS: BMI 25.2
--- NOTE | 2024-03-31 13:55 | AM.OFFWIN_ITS ---
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 Patient Tobacco Use Status: Former Tobacco user Allergies No Known Allergies [No Known Allergies*] Allergy (Verified 03/31/24 14:04) Do you need a note to return to daycare/school/sports/work: No HPI HPI Comments History of Present Illness Details 73 y/o female patient who presents to [facility] walk in clinic with c/o URI symptoms for 2 weeks. Reports SOB, cough, chest tightness and headaches. She was seen and evaluated by her Lay Out Carpenter 2 weeks ago, prescribed Z-pack and Prednisone. [facility] Medical History (Updated 03/31/24 @ 14:14 by Peyton Waddell NP) Acute respiratory disease Paroxysmal A-fib Hypertension Hx of uterine prolapse Arthritis Hx of transfusion of packed red blood cells GERD (gastroesophageal reflux disease) Anxiety Depression History of cardioversion MILY (obstructive sleep apnea) SOB (shortness of breath) Anemia Cough Orthopnea Post covid-19 condition, unspecified Loculated pleural effusion MSSA bacteremia Atrial fibrillation, new onset Constipation Overweight (BMI 25.0-29.9) UTI (urinary tract infection) Asthma Malabsorption due to intolerance, not elsewhere classified Surgical History Hx of total shoulder replacement History of esophagogastroduodenoscopy (EGD) H/O colonoscopy History of total replacement of right hip History of bunionectomy Left inguinal hernia History of total right hip arthroplasty S/P laparoscopic sleeve gastrectomy Social History Household Members: Family Household Members Other:: Danny Housing: House Are you a primary customer care team coach to a significant other at home: No Do you presently have visiting nurse or other home services: No Alcohol intake: never Comment: refused bed alarm Patient Tobacco Use Status: Former Tobacco user Tobacco use type: Cigarette Years Smoked: 16 years Second Hand Smoke Exposure: No service: No 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al status: retired 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 of Systems Const All systems reviewed & are unremarkable except as noted in HPI and below Physical Exam Vital Signs: Last Vital Signs Temp 98.5 F 03/31/24 14:03 Pulse 79 03/31/24 14:03 BP 108/64 03/31/24 14:03 Pulse Ox 95 03/31/24 14:03 Oxygen Delivery Method Room Air 03/31/24 14:03 Const General: cooperative and no acute distress Orientation/consciousness: patient oriented x3 HEENT Head: Yes normocephalic Ears: external ears normal and TM abnormal obstructed by cerumen bilateral General nose exam: Nasal discharge present Face and sinus: Yes sinuses nontender Mouth: moist mucous membranes and tongue abnormal (Thrush) with white coating Throat: Yes uvula midline Resp Effort & Inspection: normal respiratory effort, able to speak in complete sentences, no audible wheezes and no cough Auscultation: clear to auscultation bilaterally, no crackles, no rales, no rhonchi and no wheezes Cardio Heart sounds: S1 normal heart sound present and S2 normal heart sound present Neuro General: patient oriented x3 Assessment & Plan Assessment & Plan (1) Acute respiratory disease: Code(s): J06.9 - Acute upper respiratory infection, unspecified Plan: Ordered SARs Continue on Prednisone Continue using inhalers as prescribed. Orders: Orders SARS-CoV2/FLU/RSV Today J06.9 - Acute upper respiratory infection, unspecified Coding Level of Care Code Est Pt Level 4 (79091) Diagnoses Acute respiratory disease J06.9 Time Spent (min) 20
[2024-03-31 14:03] VITALS: BP 108/64; PULSE 79; TEMP 36.9; O2SAT 95
--- OUTSIDE RECORDS SUMMARY | 2024-03-31 14:54 | XMS_ITS | Patient Health Record ---
Author Organization [facility] Address [address] [place] [address] Care Team Providers Care Cook Night Name Role Phone Eddie Messina MD Primary Care Provider Lalo Hillman [phone] REASON FOR REFERRAL No Information MEDICATIONS Medication [...] adenomatous polyp of colon (Z86.010) Active confirmed 463385671 Problem Encounter for screening for malignant neoplasm of colon (Z12.11) Active confirmed [id number] Problem Encounter for screening for malignant neoplasm of rectum (Z12.12) Active confirmed Screening for malignant neoplasm of rectum (823617956) Problem Irritable bowel syndrome with both constipation and diarrhea (K58.2) Active confirmed 38604980 Problem Gastroesophageal reflux disease, esophagitis presence not specified (K21.9) Active confirmed 153595868 Problem Anemia due to other cause, not classified (D64.89) Active confirmed 995143472 Problem Iron deficiency anemia, unspecified iron deficiency anemia type (D50.9) Active confirmed 18840511 Problem Gastroesophageal reflux disease with esophagitis (K21.0) Active confirmed 604712790 Problem Erosive esophagitis (K22.10) Active confirmed 50128865 Problem Hiatal hernia (K44.9) Active confirmed 85417325 Encounters Encounter Location Date Provider Diagnosis [facility] [address] [place] [address] 10/14/2023 Lalo Vaughn [facility] [address] [place] [address] 10/14/2023 Lalo Vaughn PLAN OF TREATMENT Pending [...] End Date [employer] [address] [place] [address] [id number] DUNIA HARTMAN Self - patient is the insured MEDICAL (GENERAL) HISTORY Medical History History ICD Code Tubular adenomas removed in 2004; negative colonoscopy 09/2010 and 07/2017, except for diverticulosis Denies NM,DM,CVA,Lung disease,renal dise ase Negative cardiac cath at [facility] [place] 2011 Arthritis- goes to [...]
--- OUTSIDE RECORDS SUMMARY | 2024-03-31 14:54 | XMS_ITS | Clinical Summary ---
Author Organization Unknown Care Team Providers Care Electrician Supervisor Substation Name Role Phone SARAH PASCUAL, PARAMJIT Unavailable Unavailable PARMINDER TREE CUTTER, SY Unavailable Unavailab latisha ALFREDO PT, FERMIN Unavailable Unavailable Payers Payer Name Policy Type Policy Number Effective Date Expira tion Date AETNA MEDICARE ADVANTAGE FFS - ORDER DRIVEN [id number] MEDICARE - [place] - [facility] [id number] Problems Condition Name Condition Details Condition Category Status Onset Date Resolution Date Last Treatment Date Treating Clinician Comments CORONAVIRUS INFECTION, UNSPECIFIED Active 02-09 00:00: 00 UNSPECIFIED ASTHMA WITH (ACUTE) EXACERBATION Active 02-09 00:00: 00 PAROXYSMAL ATRIAL FIBRILLATION Active 02-09 00:00: 00 HYP HRT AND CHR KDNY DIS W HRT FAIL AND STG 1-4/UNSP CHR KDNY Active 02-09 00:00: 00 UNSPECIFIED DIASTOLIC (CONGESTIVE) HEART FAILURE Active 02-09 00:00: 00 TYPE 2 DIABETES MELLITUS W DIABETIC CHRONIC KIDNEY DISEASE Active 02-09 00:00: 00 CHRONIC KIDNEY DISEASE, UNSPECIFIED Active 02-09 00:00: 00 TYPE 2 DIABETES MELLITUS WITH DIABETIC NEUROPATHY, UNSP Active 02-09 00:00: 00 TYPE 2 DIABETES W DIABETIC PERIPHERAL ANGIOPATH W/O GANGRENE Active 02-09 00:00: 00 ACUTE KIDNEY FAILURE, UNSPECIFIED Active 02-09 00:00: 00 BIPOLAR DISORDER, UNSPECIFIED Active 02-09 00:00: 00 UNILATERAL PRIMARY OSTEOARTHRIT IS, LEFT KNEE Active 02-09 00:00: 00 HYPERCALCEMI A Active 02-09 00:00: 00 NONRHEUMATIC AORTIC (VALVE) STENOSIS Active 02-09 00:00: 00 HYPERLIPIDEM IA, UNSPECIFIED Active 02-09 00:00: 00 GASTRO-ESOPH AGEAL REFLUX DISEASE WITHOUT ESOPHAGITIS Active 02-09 00:00: 00 ANXIETY DISORDER, UNSPECIFIED Active 02-09 00:00: 00 Problems related to health literacy Active 02-09 00:00: 00 TRANSPORTATI ON INSECURITY Active 02-09 00:00: 00 ALF (CURRENT) USE OF ASPIRIN Active 02-09 00:00: 00 ALF (CURRENT) USE OF ANTITHROMBOT ICS/ANTIPLAT ELETS Active 02-09 00:00: 00 RELIGIOUS STUDIES PROFESSOR (CURRENT) USE OF INHALED STEROIDS Active 02-09 00:00: 00 Allergies, Adverse Reactions, [...] tablet,veto yed release 02-15 00:00: 00 Yes [id number] 1 tablet DAILY 1 tablet DAILY (route: oral) Med Classific ation: Gastroint estinal Therapy Agents spironolact one 25 mg tablet 02-15 00:00: 00 Yes [id number] 1 tablet DAILY 1 tablet DAILY (route: oral) Med Classific ation: Cardiovas cular Therapy Agents theophyllin e ER 400 mg tablet,exte nded release 24 hr 2023-02 00:00: 00 Yes [id number] 1 tablet DAILY 1 tablet DAILY (route: oral) Med Classific ation: Respirato ry Therapy Agents Trelegy Ellipta 200 mcg-62.5 mcg-25 mcg powder for inhalation 2023-02 00:00: 00 Yes [id number] 1 inhalat ion DAILY 1 inhalation DAILY (route: inhalation ) Med Classific ation: Respirato ry Therapy Agents albuterol sulfate HFA 90 mcg/actuati on aerosol inhaler 2023-02 00:00: 00 Yes [id number] Per instruc tions DIRECTED Per instructio ns DIRECTED (route: inhalation ) Med Classific ation: Respirato ry Therapy Agents amiodarone 200 mg tablet 2023-02 2-09 00:00: 00 Yes [id number] 1 tablet DAILY 1 tablet DAILY (route: oral) Med Classific ation: Cardiovas cular Therapy Agents aspirin 81 mg tablet,veto yed release 2023-02 0-31 00:00: 00 Yes [id number] 1 tablet DAILY 1 tablet DAILY (route: oral) Med Classific ation: Hematolog ical Agents clopidogrel 75 mg tablet 2023-02 2- 00:00: 00 Yes [id number] 1 tablet DAILY 1 tablet DAILY (route: oral) Med Classific ation: Hematolog ical Agents ipratropium 0.5 mg-albutero l 3 mg (2.5 mg base)/3 mL nebulizatio n soln 2023-02 2-16 00:00: 00 Yes [id number] Per instruc tions DIRECTED Per klarissa lazar DIRECTED (route: inhalation ) Med Classific ation: Respirato ry Therapy Agents Lamictal 100 mg tablet 2023-02 00:00: 00 Yes [id number] 1 tablet EVERY AM 1 tablet EVERY AM (route: oral) Med Classific ation: Central Nervous System Agents Lamictal 200 mg tablet 2023-02 00:00: 00 Yes [id number] 1 tablet DAILY 1 tablet DAILY (route: oral) Med Classific ation: Central Nervous System Agents loratadine 10 mg capsule 2023-02 00:00: 00 Yes [id number] 1 capsule DAILY 1 capsule DAILY (route: oral) Med Classific ation: Respirato ry Therapy Agents losartan 50 mg tablet 2023-02- 00:00: 00 Yes [id number] 1 tablet DAILY 1 tablet DAILY (route: oral) Med Classific ation: Cardiovas cular Therapy Agents oxybutynin chloride ER 10 mg tablet,exte nded release 24 hr 2023-02- 00:00: 00 Yes [id number] 1 tablet EVERY AM 1 tablet EVERY AM (route: oral) Med Classific ation: Genitouri nary Therapy tretinoin 0.025 % topical cream 2023-02- 00:00: 00 Yes [id number] Per instruc tions DAILY Per instructio ns DAILY (route: topical) Med Classific ation: Dermatolo gical Wellbutrin SR 200 mg tablet, 12 hr sustained-r elease 2023-02 00:00: 00 Yes [id number] 1 tablet 2 TIMES DAILY 1 tablet 2 TIMES DAILY (route: oral) Med Classific ation: Central Nervous System Agents azithromyci n 250 mg tablet 03-13 00:00: 00 03-17 23:59 :00 No [id number] Per instruc tions DIRECTED Per instructio ns DIRECTED (route: oral) Med Classific ation: Anti-Infe ctive Agents prednisone 10 mg tablet 03-12 00:00: 00 03-25 23:59 :00 No [id number] Per instruc tions DIRECTED Per instructio ns DIRECTED (route: oral) Med Classific ation: Endocrine Vital Signs Vital Name Observation Time Observation Value Commen ts Temperature 2024-03-29 11:33:00.000 98.8 [degF] Temperature 2024-03-21 12:25:00.000 97.5 [degF] Temperature 2024-03-15 10:35:00.000 98.5 [degF] Temperature 2024-03-07 10:33:00.000 97.5 [degF] Temperature 2024-03-03 15:21:00.000 98.5 [degF] Temperature 2024-02-23 16:18:00.000 98.2 [degF] BMI (%) 2024-03-15 10:35:00.000 23 kg/m2 BMI (%) 2024-02-23 16:18:00.000 31 kg/m2 Height 2024-03-15 10:35:00.000 67 [in_us] Height 2024-02-23 16:18:00.000 63 [in_us] Pulse 2024-03-29 11:44:00.000 56 /min Pulse 2024-03-29 11:33:00.000 87 /min Pulse 2024-03-21 12:25:00.000 87 /min Pulse 2024-03-15 10:35:00.000 98 /min Pulse 2024-03-07 10:33:00.000 68 /min Pulse 2024-03-03 15:21:00.000 75 /min Pulse 2024-02-23 16:18:00.000 75 /min O2 Saturation (%) 2024-03-29 11:43:00.000 95 % O2 Saturation (%) 2024-03-29 11:33:00.000 97 % O2 Saturation (%) 2024-03-21 12:25:00.000 100 % O2 Saturation (%) 2024-03-15 10:35:00.000 92 % O2 Saturation (%) 2024-03-07 10:33:00.000 96 % O2 Saturation (%) 2024-03-03 15:21:00.000 95 % O2 Saturation (%) 2024-02-23 16:18:00.000 98 % Respirations 2024-03-29 11:33:00.000 18 /min Respirations 2024-03-21 12:25:00.000 18 /min Respirations 2024-03-15 10:35:00.000 16 /min Respirations 2024-03-07 10:33:00.000 18 /min Respirations 2024-03-03 15:21:00.000 16 /min Respirations 2024-02-23 16:18:00.000 16 /min Weight (lbs) 2024-03-29 11:37:00.000 129 [lb_av] Weight (lbs) 2024-03-21 12:29:00.000 128 [lb_av] Weight (lbs) 2024-03-15 10:35:00.000 149 [lb_av] Weight (lbs) 2024-02-23 16:18:00.000 176 [lb_av] Systolic Blood Pressure 2024-03-29 11:33:00.000 121 mm [Hg] Systolic Blood Pressure 2024-03-21 12:25:00.000 132 mm [Hg] Systolic Blood Pressure 2024-03-15 10:35:00.000 110 mm [Hg] Systolic Blood Pressure 2024-03-07 10:33:00.000 123 mm [Hg] Systolic Blood Pressure 2024-03-03 15:21:00.000 132 mm [Hg] Systolic Blood Pressure 2024-02-23 16:18:00.000 168 mm [Hg] Diastolic Blood Pressure 2024-03-29 11:33:00.000 51 mm [Hg] Diastolic Blood Pressure 2024-03-21 12:25:00.000 67 mm [Hg] Diastolic Blood Pressure 2024-03-15 10:35:00.000 70 mm [Hg] Diastolic Blood Pressure 2024-03-07 10:33:00.000 [...] EMOTIONAL FACTORS IDENTIFIED DURING EVALUATION, PATIENT REQUESTED VIDEO JOURNALIST CONSULT IN FOR EMOTIONAL SUPPORT/COMMUNITY RESOURCES PATIENT HAS HAD INCREASED DEPRESSION IN LIGHT OF LOSING FAMILY MEMBERS LAST YEAR [code = EMERGENCY ROOM NURSE TO EVALUATE PATIENT SECONDARY TO SOCIAL AND EMOTIONAL FACTORS IDENTIFIED DURING EVALUATION, PATIENT REQUESTED VIDEO JOURNALIST CONSULT IN FOR EMOTIONAL SUPPORT/COMMUNITY RESOURCES PATIENT HAS HAD INCREASED DEPRESSION IN LIGHT OF LOSING FAMILY MEMBERS LAST YEAR] Goal 2024-03-15 Patient Goal - T O GET TO NORMAL OR CLOSE POSSIBLE Goal Patient Goal - T O GET [...] AND FALL PREVENTION. Goal Provider Goal - EMERGENCY ROOM NURSE TO COMPLETE EVALUATION FOR THE ENHANCEMENT OF THE PATIENTS SOCIAL AND EMOTIONAL FACTORS. Progress Notes Progress Notes <paragraph>[Visit Date: 2024 by RICHA ROMO]:</paragraph><paragraph>VIDEO JOURNALIST EVALUATION: DUNIA MAY IS A 73 YEAR OLD FEMALE REFERRED TO [facility]LLOW[facility] H[facility]PITALIZATION FOR COVID AND ASHTMA EXACERBATION. PMH INCLUDES LEFT KNEE OA STATUS POST LEFT TKA, CARDIOMYOPATHY, CKD, ANEMIA, AFIB, ASTHMA, RECENT UTI, INSOMNIA AND HYPERTENSION. VIDEO JOURNALIST FACILITATED COMMUNITY RESOURCE ASSESSMENT AND LTC PLANNING ASSESSMENT. ENVIRONMENT: DUNIA MAY LIVES IN A SINGLE FAMILY HOME WITH HER . IS INVOLVED AND SUPPORTIVE. HELPS WITH CLEANING, MEALS AND TRANSPORTATION. PATIENT DOES MANAGE HER OWN MEDICATIONS. DUNIA MAY IS ABLE TO MANAGE HER OWN FINANCES WELL. DUNIA MAY HAS ADVANCED DIRECTIVES IN PLACE. PRESENTATION: DUNIA MAY IS ALERT AND ORIENTED X4. SHE WAS PLEASANT DURING VISIT. DUNIA MAY REPORTS SYMPTOMS OF DEPRESSION AND WOULD LIKE TO SEEK THERAPY. DUNIA MAY HAS NO CURRENT ETOH OR SUBSTANCE ABUSE ISSUES. INTERVENTION: DUNIA MAY WAS INTERESTED IN HOMEMAKING SERVICES TO HELP WITH CLEANING AND LAUNDRY. VIDEO JOURNALIST MADE A REFERRAL TO [facility]. DUNIA MAY ALSO WOULD LIKE A PSYCHOTHERAPIST. VIDEO JOURNALIST CALLED [facility] AND MADE REFERRAL. PATIENT IS ON THE WAITLIST. DUNIA MAY DOES NOT NEED ANY FURTHER ASSISTANCE FROM VIDEO JOURNALIST AT THIS TIME. VIDEO JOURNALIST PROVIDED CLOSURE BY RESTATING RESOURCES AVAILABLE IN THE COMMUNITY AND ENCOURAGED HER TO CONTACT VIDEO JOURNALIST IF THERE WAS ANYTHING ELSE THE VIDEO JOURNALIST COULD ASSIST WITH.</paragraph> Encounters Start Date/Time End Date/Time Encounter Type Admission Type Attending Clinicians Care Facility Care Department Encounter ID Discharge Date Discharge Status Discharge Condition Discharge Reason Percent Goals Met 2024-02-23 00:00:00 2024-04-22 00:00:00 Outpatient NEW ADMISSION [facility] ALFREDO [facility] [id number] 38.89
--- OUTSIDE RECORDS SUMMARY | 2024-03-31 14:54 | XMS_ITS | Clinical Summary ---
Author Organization Unknown Care Team Providers Care National Stormwater Leader Name Role Phone SARAH PASCUAL, PARAMJIT Unavailable Unavailable PARMINDER DIMENSION WAREHOUSE SUPERVISOR, SY Unavailable Unavailab latisha ALFREDO PT, FERMIN Unavailable Unavailable Payers Payer Name Policy Type Policy Number Effective Date Expira tion Date AETNA MEDICARE ADVANTAGE FFS - ORDER DRIVEN [id number] [place] [facility] [id number] Problems Condition Name Condition Details Condition Category [...] TRANSPORTATI ON INSECURITY Active 02-09 00:00: 00 SENIOR LIVING (CURRENT) USE OF ASPIRIN Active 02-09 00:00: 00 SENIOR LIVING (CURRENT) USE OF ANTITHROMBOT ICS/ANTIPLAT ELETS Active 02-09 00:00: 00 BUZZSAW OPERATOR HELPER (CURRENT) USE OF INHALED STEROIDS Active 02-09 [...] tablet,veto yed release 02-15 00:00: 00 Yes [id number] 1 tablet DAILY 1 tablet DAILY (route: oral) Med Classific ation: Gastroint estinal Therapy Agents spironolact one 25 mg tablet 02-15 00:00: 00 Yes [id number] 1 tablet DAILY 1 tablet DAILY (route: oral) Med Classific ation: Cardiovas cular Therapy Agents theophyllin e ER 400 mg tablet,exte nded release 24 hr 2023-02 00:00: 00 Yes [id number] 1 tablet DAILY 1 tablet DAILY (route: oral) Med Classific ation: Respirato ry Therapy Agents Trelegy Ellipta 200 mcg-62.5 mcg-25 mcg powder for inhalation 2023-02 00:00: 00 Yes [id number] 1 inhalat ion DAILY 1 inhalation DAILY (route: inhalation ) Med Classific ation: Respirato ry Therapy Agents albuterol sulfate HFA 90 mcg/actuati on aerosol inhaler 2023-02 00:00: 00 Yes [id number] Per instruc tions DIRECTED Per instructio ns DIRECTED (route: inhalation ) Med Classific ation: Respirato ry Therapy Agents amiodarone 200 mg tablet 2023-02 2-09 00:00: 00 Yes [id number] 1 tablet DAILY 1 tablet DAILY (route: oral) Med Classific ation: Cardiovas cular Therapy Agents aspirin 81 mg tablet,veto yed release 2023-02 0-31 00:00: 00 Yes [id number] 1 tablet DAILY 1 tablet DAILY (route: oral) Med Classific ation: Hematolog ical Agents clopidogrel 75 mg tablet 2023-02 2- 00:00: 00 Yes [id number] 1 tablet DAILY 1 tablet DAILY (route: oral) Med Classific ation: Hematolog ical Agents ipratropium 0.5 mg-albutero l 3 mg (2.5 mg base)/3 mL nebulizatio n soln 2023-02 2-16 00:00: 00 Yes [id number] Per instruc tions DIRECTED Per klarissa lazar DIRECTED (route: inhalation ) Med Classific ation: Respirato ry Therapy Agents Lamictal 100 mg tablet 2023-02 00:00: 00 Yes [id number] 1 tablet EVERY AM 1 tablet EVERY AM (route: oral) Med Classific ation: Central Nervous System Agents Lamictal 200 mg tablet 2023-02 00:00: 00 Yes [id number] 1 tablet DAILY 1 tablet DAILY (route: oral) Med Classific ation: Central Nervous System Agents loratadine 10 mg capsule 2023-02 00:00: 00 Yes [id number] 1 capsule DAILY 1 capsule DAILY (route: oral) Med Classific ation: Respirato ry Therapy Agents losartan 50 mg tablet 2023-02- 00:00: 00 Yes [id number] 1 tablet DAILY 1 tablet DAILY (route: oral) Med Classific ation: Cardiovas cular Therapy Agents oxybutynin chloride ER 10 mg tablet,exte nded release 24 hr 2023-02- 00:00: 00 Yes [id number] 1 tablet EVERY AM 1 tablet EVERY AM (route: oral) Med Classific ation: Genitouri nary Therapy tretinoin 0.025 % topical cream 2023-02- 00:00: 00 Yes [id number] Per instruc tions DAILY Per instructio ns DAILY (route: topical) Med Classific ation: Dermatolo gical Wellbutrin SR 200 mg tablet, 12 hr sustained-r elease 2023-02 00:00: 00 Yes [id number] 1 tablet 2 TIMES DAILY 1 tablet 2 TIMES DAILY (route: oral) Med Classific ation: Central Nervous System Agents azithromyci n 250 mg tablet 03-13 00:00: 00 03-17 23:59 :00 No [id number] Per instruc tions DIRECTED Per instructio ns DIRECTED (route: oral) Med Classific ation: Anti-Infe ctive Agents prednisone 10 mg tablet 03-12 00:00: 00 03-25 23:59 :00 No [id number] Per instruc tions DIRECTED Per instructio ns [...] EMOTIONAL FACTORS IDENTIFIED DURING EVALUATION, PATIENT REQUESTED FOUNDER CEO & PRESIDENT CONSULT IN FOR EMOTIONAL SUPPORT/COMMUNITY RESOURCES PATIENT HAS HAD INCREASED DEPRESSION IN LIGHT OF LOSING FAMILY MEMBERS LAST YEAR [code = COMMERCIAL ACCOUNT OFFICER TO EVALUATE PATIENT SECONDARY TO SOCIAL AND EMOTIONAL FACTORS IDENTIFIED DURING EVALUATION, PATIENT REQUESTED FOUNDER CEO & PRESIDENT CONSULT IN FOR EMOTIONAL SUPPORT/COMMUNITY RESOURCES PATIENT [...] AND FALL PREVENTION. Goal Provider Goal - COMMERCIAL ACCOUNT OFFICER TO COMPLETE EVALUATION FOR THE ENHANCEMENT OF THE PATIENTS SOCIAL AND EMOTIONAL FACTORS. Progress Notes Progress Notes <paragraph>[Visit Date: 2024 by RICHA ROMO]:</paragraph><paragraph>FOUNDER CEO & PRESIDENT EVALUATION: DUNIA MAY IS A 73 YEAR OLD FEMALE RE[facility]ERRED [facility]IZATION FOR COVID AND ASHTMA EXACERBATION. PMH INCLUDES LEFT KNEE OA STATUS POST LEFT TKA, CARDIOMYOPATHY, CKD, ANEMIA, AFIB, ASTHMA, RECENT UTI, INSOMNIA AND HYPERTENSION. FOUNDER CEO & PRESIDENT FACILITATED COMMUNITY RESOURCE ASSESSMENT AND LTC PLANNING [...] SERVICES TO HELP WITH CLEANING AND LAUNDRY. FOUNDER CEO & PRESIDENT MADE A REFERRAL TO [facility]. DUNIA MAY ALSO WOULD LIKE A PSYCHOTHERAPIST. FOUNDER CEO & PRESIDENT CALLED [facility] AND MADE REFERRAL. PATIENT IS ON THE WAITLIST. DUNIA MAY DOES NOT NEED ANY FURTHER ASSISTANCE FROM FOUNDER CEO & PRESIDENT AT THIS TIME. FOUNDER CEO & PRESIDENT PROVIDED CLOSURE BY RESTATING RESOURCES AVAILABLE IN THE COMMUNITY AND ENCOURAGED HER TO CONTACT FOUNDER CEO & PRESIDENT IF THERE WAS ANYTHING ELSE THE FOUNDER CEO & PRESIDENT COULD ASSIST WITH.</paragraph> Encounters Start Date/Time End Date/Time Encounter Type Admission Type Attending Clinicians Care Facility Care Department Encounter ID Discharge Date Discharge Status Discharge Condition Discharge Reason Percent Goals Met 2024-02-23 00:00:00 2024-04-22 00:00:00 Outpatient NEW ADMISSION [facility]O [facility] [id number] 38.89
--- OUTSIDE RECORDS SUMMARY | 2024-03-31 14:54 | XMS_ITS ---
Author Organization [facility] Address [address] [place] [address] Care Team Providers Care Neuroscientist Name Role Phone Eddie Messina MD Primary Care Provider Janey Fontenot [phone] REASON FOR VISIT STARCH MANGLE TENDER Encounters Encounter Location Date Provider Diagnosis [address] [address] 03/08/2024 Janey Allen Plan Of Treatment Next Appt Details Provider Name:Janey lu, 05/17/2024 02:00:00 PM, [address] [place], [address], Progress Notes * Aroldo HARTMANClaudiaOB: [birth year] (73 yo F)Acc No.[id number]:03/08/2024 Patient:?Al HARTMAN :1950???Age:73 Y???Sex:Female Address:[address] [place] [address], [address] * true * Date:? Generated for Reba galicia/Margot/eTransmitting on:?03/31/2024 02:54 PM EST
--- OUTSIDE RECORDS SUMMARY | 2024-03-31 14:54 | XMS_ITS ---
Author Organization [facility] Address [address] [place] [address] Care Team Providers Care Wax Pourer Name Role Phone Eddie Messina MD Primary Care Provider Lalo Hillman [phone] REASON FOR VISIT Patient presents today for nausea, vomitting, Encounters Encounter Location Date Provider Diagnosis [facility] [address] [place] [address] 10/14/2023 Lalo Vaughn PLAN OF TREATMENT No Information
--- OUTSIDE RECORDS SUMMARY | 2024-03-31 14:54 | XMS_ITS | Clinical Summary ---
Author Organization [facility] Facility Address [address] [place] [address] Care Team Providers Care Sr. Manager Corporate Communications Name Role Phone Eddie Messina MD Primary Care Provider [phone] Allergies No known active allergies Medications albuterol [...] patient's age to complete this topic Insurance [facility] Care Teams Sr. Manager Corporate Communications Relationship Specialty Start Date End Date Eddie Messina MD [facility] [address] [place] [address] [place] PCP - General Internal Medicine 05/11/20
--- OUTSIDE RECORDS SUMMARY | 2024-03-31 14:55 | XMS_ITS | Patient Health Record ---
Author Organization [facility] Address [address] [place] [address] Care Team Providers Care Fingerprinter Name Role Phone Eddie Messina MD Primary Care Provider Janey Fontenot Unavailable [phone] Reason For Referral No Information Encounters Encounter Location Date Provider Diagnosis [facility] [address] [place] [address] 03/08/2024 Janey Allen Plan Of Treatment Next Appt Details Provider Name:Janey lu, 05/17/2024 02:00:00 PM, [address] [place], [address], Insurance Providers Payer Name Payer Address Payer Phone Subscriber Number Group Number Insured Name Patient Relationship to Insured Coverage Start Date Coverage End Date Medicare National [facility] [address] ELBERT Friedman [phone] Al Hartman Self - patient is the insured A[employer] [address] [place] [phone] [id number] Al Hartman Self - patient is the insured
--- OUTSIDE RECORDS SUMMARY | 2024-03-31 14:55 | XMS_ITS | Data Portability ---
Author Organization [facility], [facility] Address [address] [place] [address] Care Team Providers Care Database Coordinator Name Role Phone TRINITYPARAMJIT Garcia Primary Care Provider Assessment No assessment recorded. Plan of Treatment Reminders Order Date Submit Date Provider Last Modified By Organization Details Last Modified Time Details Appointments None recorded. Lab rapid SARS CoV 2 Ag, QL IA, respiratory specimen 2022 023 [facility], [address] [place] [address], [address], 3 10:28:00 Referral None recorded. Procedures None recorded. Surgeries None recorded. Imaging None recorded. Medication Orders Allergy Relief (fluticason e) 50 mcg/actuati on nasal spray,suspe nsion 2022 023 [facility], [address] [place], [address], 3 10:29:44 benzonatate 200 mg capsule 2022 023 [facility], [address] [place], [address], 3 10:29:43 prednisone 20 mg tablet 2022 023 [facility], [address] [place], [address], 3 10:29:44 prednisone 20 mg tablet 2022 023 [facility], [address] [place] [address], [address], 09:56:02 Patient TargetsNo targets recorded. Patient Instructions Encounter Date Encounter Id Patient Instructions Last Modified By Organization Details Last Modified Time 02/15/2022 [id number] As discussed in office cause of your [...] you today and thank you for choosing [facility] for your healthcare needs! Use your ALBUTEROL [...] [email or web address] Not available 02/15/2022 10:27:06 03/01/2022 [id number] cough: care instructions Not available 03/01/2022 10:28:00 [...] wear a mask. For travel guidance, see [facility]? s Travel webpage. Do not travel. Stay [...] masking (see below). For travel guidance, see [facility]? s Travel webpage. Not available 03/01/2022 10:29:30 Reason for Referral None Reported. Results Created Date Observation Date Name Description Value Unit Range Abnormal Flag Note LastModifiedBy Organization Detail LastModifiedTime 03/01/1903/01/2022 rapid SARS CoV 2 Ag, QL IA, respi rator y speci men Unknown Analyte Normal =Negat aki Not Available [address] [place], [address], 03/01/2022 09:52:23 03/01/19 23 03/01/2022 rapid SARS CoV 2 Ag, QL IA, respi rator y speci men Unknown Analyte negati ve Not Available [address] [address] [facility], [place], [address], 03/01/2022 09:52:23 Result Notes None recorded. Problems Name Problem SNOMED Code Status Onset Date Resolution Date Notes Provider Name and Address Organization Details Recorded Time Asthma 510205123 Active 2022 ADRIEN LUPICA null, PA - [facility] 3 09:26:28 Hypertensive disorder 16215925 Active 2022 ADRIEN LUPICA null, PA - [facility] 3 09:26:43 Gastroesophage al reflux disease 248580775 Active 2022 ADRIEN LUPICA null, PA - [facility] 3 09:26:56 Arthritis 0318916 Active 2022 ADRIEN LUPICA null, PA - [facility] 3 09:27:07 Depressive disorder 14052489 Active 2022 ADRIEN LUPICA null, PA - [facility] 3 09:27:13 Urinary incontinence 189380575 Active 2022 ADRIEN LUPICA null, PA - [facility] 3 09:27:23 Atrial fibrillation 05948961 Active 2022 ADRIEN LUPICA null, PA - [...] Not Available Vitals Date Recorded Body height Body mass index (BMI) Body weight Body temperature Respiratory rate Oxygen saturation Oxygen saturation in Arterial blood by Pulse oximetry Heart rate Systolic blood pressure Diastolic blood pressure Provider Name and Address Organization Details Last Updated DateTime 3 157.48 cm 24.7 kg/m2 05980.9 7 g 97.1 [degF] 16 /min 100 % 100 % 70 /min 163 mm[Hg] 83 mm[Hg] ADRIEN BG PA - [facility] 3 09:33:04 Date Recorded Body height Body temperature Oxygen saturation Oxygen saturation in Arterial blood by Pulse oximetry Heart rate Respiratory rate Body mass index (BMI) Body weight Systolic blood pressure Diastolic blood pressure Provider Name and Address Organization Details Last Updated DateTime 3 157.48 cm 97 [degF] 98 % 98 % 63 /min 16 /min 24.7 kg/m2 28209.9 7 g 162 mm[Hg] 81 mm[Hg] ADRIEN BG PA - [facility] 3 09:54:56 Social History Question Answer Notes LastModified by [email or web address] ion Details LastModified Time Tobacco Smoking Status Former Smoker ADRIEN woodall PA - [facility] 02/15/2022 09:29:00 What Is Your Level Of Alcohol Consumption? None [email or web address] Information not available 02/15/2022 Do You Use Any Illicit Or Recreational Drugs? No [email or web address] Information not available 02/15/2022 Have You Recently Traveled Abroad? No [email or web address] Information not available 02/15/2022 Do You Or Have You Ever Used Any Other Forms Of Tobacco Or Nicotine? No [email or web address] Information not available 02/15/2022 Sex: Unknown Functional Status None recorded. Mental Status None recorded. Family History Relationship Description Onset Age of this Age Resolved Age Notes LastModified by Organization Details LastModified Time Father Asthma Not available 02/15/2022 09:28:09 Daughter Asthma x2 daught ers [email or web address] Not available 02/15/2022 09:28:09 Medical History No medical history recorded. Gynecological HistoryNo gynecological history recorded. Obstetrics History GPAL:G 0 P 0 0 0 0 Past Encounters Encounter ID Performer Location Encounter Start Date Encounter Closed Date Diagnosis/Indication Diagnosis SNOMED-CT Code Diagnosis ICD10 Code Diagnosis Note [id number] [address] [facility] [facility] [place] [address] 03/25/2019 17:45:10 03/25/2019 18:08:13 [id number] [address] [facility] [place] [address] 05/27/2018 18:40:43 05/27/2018 19:22:07 [id number] [address] [facility] [place] [address] 02/27/2019 14:56:29 02/27/2019 15:42:02 [id number] [address] [facility] [place] [address] 10/30/2017 19:21:18 10/30/2017 19:55:57 [id number] [address] [facility] [place] [address] 10/02/2018 18:49:34 10/02/2018 19:27:17 [id number] [address] [facility] [place] [address] 12/14/2020 18:12:30 12/14/2020 19:34:48 [id number] [address] [facility] [place] [address] 11/09/2018 19:59:54 11/09/2018 20:41:23 [id number] [address] [facility] [place] [address] 10/06/2021 13:31:31 10/06/2021 14:40:09 [id number] [address] [facility] [place] [address] 03/20/2017 19:22:24 03/20/2017 19:56:42 [id number] [address] [facility] [place] [address] 03/12/2017 17:09:00 03/12/2017 18:31:15 [id number] [address] [facility] [place] [address] 11/22/2017 13:22:24 11/22/2017 14:43:05 [id number] [address] [facility] [place] [address] 01/02/2018 18:21:27 01/02/2018 19:54:08 [id number] [address] [place] [address] [place] [address] 02/15/2017 17:19:32 02/15/2017 18:04:10 [id number] [address] [place] [address] [place] [address] 01/23/2018 18:56:39 01/23/2018 19:33:12 [id number] [address] [place] [address] [place] [address] 07/03/2017 14:51:55 07/03/2017 15:50:48 [id number] ANIYA RAZO [address] [facility] [place] [address] 02/15/2022 09:04:52 02/15/2022 10:31:22 Exacerbation of intermittent asthma 546308584 J45.21 Follow up with your pulmonolog ist as scheduled at the end of this month. [id number] Brady Villarreal NP [address] [place] [address] 03/01/2022 08:38:51 03/01/2022 10:36:25 Exposure to SARS-CoV-2 417964027 Z20.822 Acute bronchitis 3643645 2 J20.9 Health Concerns Section Related Observation LastModified by Organization Detai ls LastModified Time None Recorded Concern Status LastModified by Organization Details LastModified Time None Recorded Advance Directives Directive None Recorded Payers Encounter Date Sequence Insurance Name Policy Number Policy Hay Covered Member ID Hay Member ID Guarantor Name 02/15/2022 1 [employer] (MEDICARE REPLACEMENT PPO) [id number] Shilpa Hartman [id number] Shilpa Hartman 03/01/2022 1 [employer] (MEDICARE REPLACEMENT PPO) [id number] Shilpa Hartman [id number] Shilpa Hartman Notes Date Note Type Note [...] asking for same. Has apt with her pmo manager in a couple weeks for f/u. Denies SOB. Had wheezing this morning which resolved. Notes wheezing seems to be worse in the mornings, and relates this to post nasal drip. No LE edema. ANIYA ARCEO JD [address] [place], [address], PA - [facility] 02/15/2022 10:31:07 03/01/2022 text/html CongestionReport ed bypatient.Notes:follow up for chest congestion, nasal congestion with post nasal drip x 3 days. denies any fever or fever with chills. no SOB or respiratory distress. Brady Villarreal NP [address] [place], [address], PA - [facility] 03/01/2022 10:30:08 OBGyn Episode No OBEpisode recorded.
--- OUTSIDE RECORDS SUMMARY | 2024-03-31 14:55 | XMS_ITS ---
Author Organization [facility] Address [address] [place] [address] Care Team Providers Care Process Laboratory Specialist Name Role Phone Eddie Messina MD Primary Care Provider Lalo Hillman [phone] REASON FOR VISIT Pt no show Encounters Encounter Location Date Provider Diagnosis [facility] [address] [place] [address] 10/14/2023 Lalo Vaughn PLAN OF TREATMENT No Information
== END 2024-03-31 14:24 | disposition home or self-care (01) ==
PROVIDERS: PCP Internal Medicine; Visit Provider Nurse Practitioner Family
DX: J06.9 Acute upper respiratory infection, unspecified (principal)

== ENCOUNTER 2024-04-21 09:57 | Outpatient (AMB) | payer MEDICARE, SELFPAY ==
[2023-09-24 15:56] VITALS: BMI 25.2
--- NOTE | 2024-04-21 10:03 | A.OFFVIS_ITS ---
VS Expanded 04/21/24 10:11 BP 117/69 Blood Pressure Location Rt brachial Blood Pressure Position Sitting Pulse 69 Pulse Source Pulse Oximeter Temp 98.1 F Temperature Source Temporal Artery Scan Pulse Oximetry 96 Oxygen Delivery Method Room Air Height 5 ft 2 in Weight 130 lb 3.2 oz BMI 23.8 Body Fat % 17.6 Body Fat Mass 23.0 Fat Free Mass 107.2 Visceral Fat Rating 6.0 Body Water % 60.3 Body Water Mass 78.4 Muscle Mass/Score 101.6 Basal Metabolic Rate/Score 1,381 Intake Visit Reasons: (OV) PO LSG 04/13/2018 Health Administration Teacher Required: No Allergies No Known Allergies [No Known Allergies*] Allergy (Verified 04/21/24 10:16) Medication List - Last Reconciled 04/21/24 by ANIYA Smith albuterol sulfate 90 mcg/actuation (ProAir HFA) 2 puffs inhalation Q4-6H PRN amiodarone 200 mg PO DAILY aspirin (Adult Aspirin Regimen) 81 mg PO DAILY bisacodyl (Dulcolax (bisacodyl)) 10 mg UT DAILY PRN bupropion HCl SR (Wellbutrin SR) 200 mg PO BID@0900,1300 clopidogrel (Plavix) 75 mg PO DAILY fluticasone propionate 50 mcg/actuation 1 spray intranasal BID PRN nmocvlppdfh-obxdinknb-hdluynmw 200-62.5-25 mcg (Trelegy Ellipta) 1 ea inhalation DAILY ipratropium bromide 2 sprays intranasal TID-QID PRN ipratropium-albuterol 0.5 mg-3 mg(2.5 mg base)/3 mL 3 mL inhalation Q4-6H PRN lamotrigine 200 mg PO DAILY levofloxacin 500 mg PO DAILY loratadine (Claritin) 10 mg PO DAILY PRN losartan 50 mg PO DAILY oxybutynin chloride ER 10 mg PO DAILY pantoprazole 40 mg PO BID prednisone 10 mg PO DIRECTED theophylline ER 400 mg PO DAILY HPI Comments Details: Patient is a 73-year-old female who returns to the office today in follow-up. She is approximately 6 years post sleeve gastrectomy performed 04/13/2018. She was last seen in the office January 2024 with a weight of 124.4 pounds. Weight today is 130.2 lb with a BMI of 23.8. Overall, she is doing fairly well however over the last several weeks she had a bout of bronchitis, seen by pulmonology and prescribed levofloxacin. She notes to acute issues, 1 being of imbalance over the last couple of days and the other being of vertigo upon arising in the morning. She is going to discuss both of these with her primary care physician. She will additionally try to identify if the vertigo is positional in nature. She was able to identify that it is more of a room spinning sensation and not of a lightheaded sensation. Last seen in January 2024. Labs ordered at that time were not obtained Meal plan: oatneal meat/veg yogurt Drinking 50 water Exercise plan: None Previously going to cardiac rehab [facility] 2 months ago and was in rehab. [facility] Medical History (Updated 03/31/24 @ 14:14 by Peyton Waddell NP) Acute respiratory disease Paroxysmal A-fib Hypertension Hx of uterine prolapse Arthritis Hx of transfusion of packed red blood cells GERD (gastroesophageal reflux disease) Anxiety Depression History of cardioversion MILY (obstructive sleep apnea) SOB (shortness of breath) Anemia Cough Orthopnea Post covid-19 condition, unspecified Loculated pleural effusion MSSA bacteremia Atrial fibrillation, new onset Constipation Overweight (BMI 25.0-29.9) UTI (urinary tract infection) Asthma Malabsorption due to intolerance, not elsewhere classified Surgical History Hx of total shoulder replacement History of esophagogastroduodenoscopy (EGD) H/O colonoscopy History of total replacement of right hip History of bunionectomy Left inguinal hernia History of total right hip arthroplasty S/P laparoscopic sleeve gastrectomy Social History Household Members: Family Household Members Other:: Danny Housing: House Are you a primary home care consultant to a significant other at home: No Do you presently have visiting nurse or other home services: No Alcohol intake: never Comment: refused bed alarm Patient Tobacco Use Status: Former Tobacco user Tobacco use type: Cigarette Years Smoked: 16 years Second Hand Smoke Exposure: No service: No 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al status: retired 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: Right Handed Physical Exam Const General: healthy appearing and no acute distress Resp Effort & Inspection: normal respiratory effort Auscultation: clear to auscultation bilaterally Cardio Rate: regular rate Rhythm: regular rhythm GI Auscultation: normal bowel sounds Extrem General: Yes normal to inspection Assessment & Plan Assessment & Plan (1) S/P laparoscopic sleeve gastrectomy: Code(s): Z98.84 - Bariatric surgery status Category: Surgical Plan: Overall, patient is doing fairly well. She will discuss with her primary care physician the ongoing medical issues. She was reminded to get labs done which were ordered in January. We will have her return to the office in yanelis roximately 1 year
[2024-04-21 10:11] VITALS: BP 117/69; PULSE 69; TEMP 36.7; O2SAT 96; BMI 23.8
--- OUTSIDE RECORDS SUMMARY | 2024-04-21 12:20 | XMS_ITS ---
Author Organization [facility] Address [address] [place] [address] Care Team Providers Care Tiller Worker Name Role Phone Mayuri PASCUAL, Eddie Primary Care Provider Lalo Hillman [phone] REASON FOR VISIT Patient presents today for nausea, vomitting, Encounters Encounter Location Date Provider Diagnosis [facility] [address] [address] 10/14/2023 Lalo Vaughn Plan Of Treatment No Information Progress Notes * DUNIA HARTMANEDOB:1950 (73 yo F)Acc No.[id number]:10/14/2023 Progress Notes Patient:?DUNIA HARTMAN Provider:?Lalo Vaughn MD :1950???Age:72 Y???Sex:Female D ate:10/14/2023 Address:[address] [place], [place] [id number] Pcp:Eddie Messina MD Subjective: * Chief Complaints: * ???1. Patient presents today for nausea, vomitting,. * Medical History:? Objective: * Vitals:? Assessment: Plan: * Treatment: * * The named appointment provid er may or may not be the originator of this progress note, and it is not deemed complete until electronically signed by the appointment provider. Sign off status: Pending * Provider:?Lalo Vaughn MD Date:? 024 Generated for Printi ng/Faxing/eTransmitting on:?04/21/2024 12:20 PM EDT
--- OUTSIDE RECORDS SUMMARY | 2024-04-21 12:20 | XMS_ITS | Clinical Summary ---
Author Organization [facility] Facility Address [address] [place] [address] Care Team Providers Care Trench Digging Machine Operator Name Role Phone Eddie Messina MD Primary Care Provider [phone] Allergies No known active allergies Medications albuterol [...] patient's age to complete this topic Insurance [facility] Care Teams Trench Digging Machine Operator Relationship Specialty Start Date End Date Eddie Messina MD HOLDER[employer] V[employer]ER DRIER TAILER [address] [place] [address] CT RONDNO MD PCP - General Internal Medicine 05/11/20
--- OUTSIDE RECORDS SUMMARY | 2024-04-21 12:21 | XMS_ITS | Data Portability ---
Author Organization [facility], [facility] Address [address] [place] [address] Care Team Providers Care Supervisor Boat Outfitting Name Role Phone TRINITYPARAMJIT Garcia Primary Care Provider [phone] Assessment No assessment recorded. Plan of Treatment Reminders Order Date Submit Date Provider Last Modified By Organization Details Last Modified Time Details Appointments None recorded. Lab rapid SARS CoV 2 Ag, QL IA, respiratory specimen 2022 023 [facility], [address] [place] [address], [address], 3 10:28:00 Referral None recorded. Procedures None recorded. Surgeries None recorded. Imaging None recorded. Medication Orders Allergy Relief (fluticason e) 50 mcg/actuati on nasal spray,suspe nsion 2022 023 [facility] [address] [place], [address], 3 10:29:44 benzonatate 200 mg capsule 2022 023 [facility] [address] [place], [address], 3 10:29:43 prednisone 20 mg tablet 2022 023 [facility] [address] [place], [address], 3 10:29:44 prednisone 20 mg tablet 2022 023 [facility], [address] [place] [address], [address], 09:56:02 Patient TargetsNo targets recorded. Patient Instructions Encounter Date Encounter Id Patient Instructions Last Modified By Organization Details Last Modified Time 02/15/2022 [id number] As discussed in office cause of your [...] you today and thank you for choosing [facility] for your healthcare needs! Use your ALBUTEROL [...] [email or web address] Not available 02/15/2022 10:27:06 03/01/2022 [id number] cough: care instructions Not available 03/01/2022 10:28:00 [...] wear a mask. For travel guidance, see [facility]? s Travel webpage. Do not travel. [...] masking (see below). For travel guidance, see [facility]? s Travel webpage. Not available 03/01/2022 10:29:30 Reason for Referral None Reported. Results Created Date Observation Date Name Description Value Unit Range Abnormal Flag Note LastModifiedBy Organization Detail LastModifiedTime 03/01/1903/01/2022 rapid SARS CoV 2 Ag, QL IA, respi rator y speci men Unknown Analyte Normal =Negat aki Not Available [address] [address] [facility] [place], [address], 03/01/2022 09:52:23 03/01/19 23 03/01/2022 rapid SARS CoV 2 Ag, QL IA, respi rator y speci men Unknown Analyte negati ve Not Available [address] [address] [facility], [place], [address], 03/01/2022 09:52:23 Result Notes None recorded. Problems Name Problem SNOMED Code Status Onset Date Resolution Date Notes Provider Name and Address Organization Details Recorded Time Asthma 766271314 Active 2022 ADRIEN LUPICA null, PA - [facility] 3 09:26:28 Hypertensive disorder 57117377 Active 2022 ADRIEN LUPICA null, PA - [facility] 3 09:26:43 Gastroesophage al reflux disease 138117253 Active 2022 ADRIEN LUPICA null, PA - [facility] 3 09:26:56 Arthritis 6013465 Active 2022 ADRIEN LUPICA null, PA - [facility] 3 09:27:07 Depressive disorder 01057607 Active 2022 ADRIEN LUPICA null, PA - [facility] 3 09:27:13 Urinary incontinence 259395866 Active 2022 ADRIEN LUPICA null, PA - [facility] 3 09:27:23 Atrial fibrillation 88330480 Active 2022 ADRIEN LUPICA null, PA - [...] Updated DateTime 3 157.48 cm 24.7 kg/m2 54197.9 7 g 97.1 [degF] 16 /min 100 [...] % 63 /min 16 /min 24.7 kg/m2 31325.9 7 g 162 mm[Hg] 81 mm[Hg] ADRIEN BG PA - [facility] 3 09:54:56 Social History Question Answer Notes LastModified by Countdown To Buy ion Details LastModified Time Tobacco Smoking Status Former Smoker ADRIEN woodall PA - [facility] 02/15/2022 09:29:00 What Is Your Level Of Alcohol Consumption? None Information not available 02/15/2022 Do You Use Any Illicit Or Recreational Drugs? No [email or web address] Information not available 02/15/2022 Have You Recently Traveled Abroad? No Information not available 02/15/2022 Do You Or Have You Ever Used Any Other Forms Of Tobacco Or Nicotine? No [email or web address] Information not available 02/15/2022 Sex: Unknown Functional Status None recorded. Mental Status None recorded. Family History Relationship Description Onset Age of this Age Resolved Age Notes LastModified by Organization Details LastModified Time Father Asthma Not available 02/15/2022 09:28:09 Daughter Asthma x2 daught ers [email or web address] Not available 02/15/2022 09:28:09 Medical History No medical history recorded. Gynecological HistoryNo gynecological history recorded. Obstetrics History GPAL:G 0 P 0 0 0 0 Past Encounters Encounter ID Performer Location Encounter Start Date Encounter Closed Date Diagnosis/Indication Diagnosis SNOMED-CT Code Diagnosis ICD10 Code Diagnosis Note [id number] [facility] [address] [facility] [place] [address] 03/25/2019 17:45:10 03/25/2019 18:08:13 [id number] [address] [address] [facility] [place] [address] 05/27/2018 18:40:43 05/27/2018 19:22:07 [id number] [address] [facility] [facility] [place] [address] 02/27/2019 14:56:29 02/27/2019 15:42:02 [id number] [address] [address] [facility] [facility] [place] [address] 10/30/2017 19:21:18 10/30/2017 19:55:57 [id number] [address] [facility] [facility] [place] [address] 10/02/2018 18:49:34 10/02/2018 19:27:17 [id number] [address] [facility] [facility] [place] [address] 12/14/2020 18:12:30 12/14/2020 19:34:48 [id number] [address] [facility] [place] [address] 11/09/2018 19:59:54 11/09/2018 20:41:23 [id number] [address] [address] [facility] [facility] [place] [address] 10/06/2021 13:31:31 10/06/2021 14:40:09 [id number] [address] [facility] [facility] [place] [address] 03/20/2017 19:22:24 03/20/2017 19:56:42 [id number] [address] [address] [facility] [place] [address] 03/12/2017 17:09:00 03/12/2017 18:31:15 [id number] [address] [facility] [place] [address] 11/22/2017 13:22:24 11/22/2017 14:43:05 [id number] [address] [facility] [place] [address] 01/02/2018 18:21:27 01/02/2018 19:54:08 [id number] [address] [address] [place] [address] [place] [address] 02/15/2017 17:19:32 02/15/2017 18:04:10 [id number] [address] [address] [place] [address] [place] [address] 01/23/2018 18:56:39 01/23/2018 19:33:12 [id number] [address] [address] [place] [address] [place] [address] 07/03/2017 14:51:55 07/03/2017 15:50:48 [id number] ANIYA RAZO [address] [address] [facility] [place] [place] [address] 02/15/2022 09:04:52 02/15/2022 10:31:22 Exacerbation of intermittent asthma 763490573 J45.21 Follow up with your pulmonolog ist as scheduled at the end of this month. [id number] Brady Villarreal NP [address] [place] [address] 03/01/2022 08:38:51 03/01/2022 10:36:25 Exposure to SARS-CoV-2 232335724 Z20.822 Acute bronchitis 6753678 2 J20.9 Health Concerns Section Related Observation LastModified by Organization Detai ls LastModified Time None Recorded Concern Status LastModified by Organization Details LastModified Time None Recorded Advance Directives Directive None Recorded Payers Encounter Date Sequence Insurance Name Policy Number Policy Hay Covered Member ID Hay Member ID Guarantor Name 02/15/2022 1 [employer] (MEDICARE REPLACEMENT PPO) [id number] Shilpa Hartman [id number] Shilpa Hartman 03/01/2022 1 [employer] (MEDICARE REPLACEMENT PPO) [id number] Shilpa Hartman [id number] Shilpa Hartman Notes Date Note Type Note [...] asking for same. Has apt with her bicycle service technician in a couple weeks for f/u. Denies SOB. Had wheezing this morning which resolved. Notes wheezing seems to be worse in the mornings, and relates this to post nasal drip. No LE edema. ANIYA ARCEO JD [address] [place], [address], PA - [facility] 02/15/2022 10:31:07 03/01/2022 text/html CongestionReport ed bypatient.Notes:follow up for chest congestion, nasal congestion with post nasal drip x 3 days. denies any fever or fever with chills. no SOB or respiratory distress. Brady Villarreal NP [address] [place], [address], PA - [facility] 03/01/2022 10:30:08 OBGyn Episode No OBEpisode recorded.
--- OUTSIDE RECORDS SUMMARY | 2024-04-21 12:21 | XMS_ITS | Patient Health Record ---
Author Organization [facility] Address [address] [place] [address] Care Team Providers Care Ordinary Seaman Name Role Phone Eddie Messina MD Primary Care Provider Lalo Hillman [phone] Reason For Referral No Information Medications Medication SIG (Take, Route, Frequency, Duration) Notes [...] TIMES A DAY Inhalation for 25 Active Immunizations Vaccine Route Administration Date Status Comme nts Influenza Unknown 01/12/2018 Refused Influenza Unknown 06/04/2018 Refused Problems Problem Type SNOMED Code ICD Code Onset Dates Problem Status W/U Status Risk Notes Problem 086141011 Encounter for screening for malignant neoplasm of colon (Z12.11) Active confirmed Problem 516977656 History of adenomatous polyp of colon (Z86.010) Active confirmed Problem Screening for malignant neoplasm of rectum (926970954) Encounter for screening for malignant neoplasm of rectum (Z12.12) Active confirmed Problem 885313794 Gastroesophageal reflux disease with esophagitis (K21.0) Active confirmed Problem 575403478 Gastroesophageal reflux disease, esophagitis presence not specified (K21.9) Active confirmed Problem 85638988 Hiatal hernia (K44.9) Active confirmed Problem 25070436 Erosive esophagi tis (K22.10) Active confirmed Problem 33395049 Iron deficiency anemia, unspecified iron deficiency anemia type (D50.9) Active confirmed Problem 285395002 Anemia due to ot her cause, not classified (D64.89) Active confirmed Problem 81120416 Irritable bowel syndrome with both constipation and diarrhea (K58.2) Active confirmed Encounters Encounter Location Date Provider Diagnosis [facility] [address] [place] [address] 10/14/2023 Lalo Vaughn Plan Of Treatment Pending Test Test Name Order Date IRON + IBC (FE) 06/03/2016 IRON + IBC (FE) 07/12/2016 FERRITIN 07/12/2016 FERRITIN 06/03/2016 VITAMIN B12 AND FOLATE 06/03/2016 CBC w DIFF 07/12/2016 CBC w DIFF 06/03/2016 CELIAC PANEL #10 06/03/2016 Future Test Test Name Order Date UPPER GI ENDOSCOPY 06/03/2016 COLONOSCOPY 06/03/2016 UPPER GI ENDOSCOPY 01/12/2018 Insurance Providers Payer Name Payer Address Payer Phone Subscriber Number Group Number Insured Name Patient Relationship to Insured Coverage Start Date Coverage End Date [employer] [address] [place] [phone] [id number] DUNIA HARTMAN Self - patient is the insured Medical (General) History Medical History History ICD Code Tubular adenomas removed in 2004; negative colonoscopy 09/2010 and 07/2017, except for diverticulosis Denies IA,DM,CVA,Lung disease,renal dise ase Negative cardiac cath [place] [facility] [place] 2011 Arthritis- goes [...] [place] [facility] [place] [facility] [place]
--- OUTSIDE RECORDS SUMMARY | 2024-04-21 12:21 | XMS_ITS ---
Author Organization [facility] Address [address] [place] [address] Care Team Providers Care Telegraphic Typewriter Operator Chief Name Role Phone Eddie Messina MD Primary Care Provider Lalo Hillman [phone] REASON FOR VISIT Pt no show Encounters Encounter Location Date Provider Diagnosis [facility] [address] [place] [address] 10/14/2023 Lalo Vaughn Plan Of Treatment No Information Progress Notes * DUNIA HARTMANSAMPSONOB:1950 (72 yo F)Acc No.[id number]:10/14/2023 Patient:?DUNIA HARTMAN :1950???Age:72 Y???Sex:Female Address:[address] [place] [address] * true * Date:? Generated for Reba galicia/Margot/eTransmitting on:?04/21/2024 12:21 PM EDT
--- OUTSIDE RECORDS SUMMARY | 2024-04-21 12:21 | XMS_ITS | Clinical Summary ---
Author Organization Unknown Care Team Providers Care Night Baker Name Role Phone SARAH PASCUAL, PARAMJIT Unavailable Unavailable PARMINDER BIOMEDICAL ENGINEERING TECHNICIAN, SY Unavailable Unavailab latisha ALFREDO PT, FERMIN Unavailable Unavailable Payers Payer Name Policy Type Policy Number Effective Date Expira tion Date [employer] MEDICARE ADVANTAGE FFS - ORDER DRIVEN [id number] [place] - [place] - [facility] [id number] Problems Condition Name Condition Details Condition Category [...] Active 02-09 00:00: 00 HYPERCALCEMI A Active - 00:00: 00 NONRHEUMATIC AORTIC (VALVE) STENOSIS Active 02-09 00:00: 00 HYPERLIPIDEM IA, UNSPECIFIED Active 02-09 00:00: 00 GASTRO-ESOPH AGEAL REFLUX DISEASE WITHOUT ESOPHAGITIS Active 02-09 00:00: 00 ANXIETY DISORDER, UNSPECIFIED Active 02-09 00:00: 00 Problems related to health literacy Active 02-09 00:00: 00 TRANSPORTATI ON INSECURITY Active 02-09 00:00: 00 SURGEON ASSISTANT (CURRENT) USE OF ASPIRIN Active 02-09 00:00: 00 PRISON (CURRENT) USE OF ANTITHROMBOT ICS/ANTIPLAT ELETS Active 02-09 00:00: 00 SURGEON ASSISTANT (CURRENT) USE OF INHALED STEROIDS Active 02-09 [...] tablet,veto yed release 02-15 00:00: 00 Yes [id number] 1 tablet DAILY 1 tablet DAILY (route: oral) Med Classific ation: Gastroint estinal Therapy Agents spironolact one 25 mg tablet 02-15 00:00: 00 Yes [id number] 1 tablet DAILY 1 tablet DAILY (route: oral) Med Classific ation: Cardiovas cular Therapy Agents theophyllin e ER 400 mg tablet,exte nded release 24 hr 2023-02 00:00: 00 Yes [id number] 1 tablet DAILY 1 tablet DAILY (route: oral) Med Classific ation: Respirato ry Therapy Agents Trelegy Ellipta 200 mcg-62.5 mcg-25 mcg powder for inhalation 2023-02 00:00: 00 Yes [id number] 1 inhalat ion DAILY 1 inhalation DAILY (route: inhalation ) Med Classific ation: Respirato ry Therapy Agents albuterol sulfate HFA 90 mcg/actuati on aerosol inhaler 2023-02 00:00: 00 Yes [id number] Per instruc tions DIRECTED Per instructio ns DIRECTED (route: inhalation ) Med Classific ation: Respirato ry Therapy Agents amiodarone 200 mg tablet 2023-02 2-09 00:00: 00 Yes [id number] 1 tablet DAILY 1 tablet DAILY (route: oral) Med Classific ation: Cardiovas cular Therapy Agents aspirin 81 mg tablet,veto yed release 2023-02 0-31 00:00: 00 Yes [id number] 1 tablet DAILY 1 tablet DAILY (route: oral) Med Classific ation: Hematolog ical Agents clopidogrel 75 mg tablet 2023-02 2- 00:00: 00 Yes [id number] 1 tablet DAILY 1 tablet DAILY (route: oral) Med Classific ation: Hematolog ical Agents ipratropium 0.5 mg-albutero l 3 mg (2.5 mg base)/3 mL nebulizatio n soln 2023-02 2-16 00:00: 00 Yes [id number] Per instruc tions DIRECTED Per klarissa lazar DIRECTED (route: inhalation ) Med Classific ation: Respirato ry Therapy Agents Lamictal 100 mg tablet 2023-02 00:00: 00 Yes [id number] 1 tablet EVERY AM 1 tablet EVERY AM (route: oral) Med Classific ation: Central Nervous System Agents Lamictal 200 mg tablet 2023-02 00:00: 00 Yes [id number] 1 tablet DAILY 1 tablet DAILY (route: oral) Med Classific ation: Central Nervous System Agents loratadine 10 mg capsule 2023-02 00:00: 00 Yes [id number] 1 capsule DAILY 1 capsule DAILY (route: oral) Med Classific ation: Respirato ry Therapy Agents losartan 50 mg tablet 2023-02- 00:00: 00 Yes [id number] 1 tablet DAILY 1 tablet DAILY (route: oral) Med Classific ation: Cardiovas cular Therapy Agents oxybutynin chloride ER 10 mg tablet,exte nded release 24 hr 2023-02- 00:00: 00 Yes [id number] 1 tablet EVERY AM 1 tablet EVERY AM (route: oral) Med Classific ation: Genitouri nary Therapy tretinoin 0.025 % topical cream 2023-02- 00:00: 00 Yes [id number] Per instruc tions DAILY Per instructio ns DAILY (route: topical) Med Classific ation: Dermatolo gical Wellbutrin SR 200 mg tablet, 12 hr sustained-r elease 2023-02 00:00: 00 Yes [id number] 1 tablet 2 TIMES DAILY 1 tablet 2 TIMES DAILY (route: oral) Med Classific ation: Central Nervous System Agents azithromyci n 250 mg tablet 03-13 00:00: 00 03-17 23:59 :00 No [id number] Per instruc tions DIRECTED Per instructio ns DIRECTED (route: oral) Med Classific ation: Anti-Infe ctive Agents prednisone 10 mg tablet 03-12 00:00: 00 03-25 23:59 :00 No [id number] Per instruc tions DIRECTED Per instructio ns DIRECTED (route: oral) Med Classific ation: Endocrine Vital Signs Vital Name Observation Time Observation Value Commen ts Temperature 2024-04-13 12:13:00.000 97.8 [degF] Temperature 2024-04-08 10:10:00.000 98.3 [degF] Temperature 2024-03-29 11:33:00.000 98.8 [degF] Temperature 2024-03-21 12:25:00.000 97.5 [degF] Temperature 2024-03-15 10:35:00.000 98.5 [degF] Temperature 2024-03-07 10:33:00.000 97.5 [degF] Temperature 2024-03-03 15:21:00.000 98.5 [degF] Temperature 2024-02-23 16:18:00.000 98.2 [degF] BMI (%) 2024-03-15 10:35:00.000 23 kg/m2 BMI (%) 2024-02-23 16:18:00.000 31 kg/m2 Height 2024-03-15 10:35:00.000 67 [in_us] Height 2024-02-23 16:18:00.000 63 [in_us] Pulse 2024-04-13 12:13:00.000 64 /min Pulse 2024-04-08 10:10:00.000 78 /min Pulse 2024-03-29 11:44:00.000 56 /min Pulse 2024-03-29 11:33:00.000 87 /min Pulse 2024-03-21 12:25:00.000 87 /min Pulse 2024-03-15 10:35:00.000 98 /min Pulse 2024-03-07 10:33:00.000 68 /min Pulse 2024-03-03 15:21:00.000 75 /min Pulse 2024-02-23 16:18:00.000 75 /min O2 Saturation (%) 2024-04-13 12:13:00.000 96 % O2 Saturation (%) 2024-04-08 10:10:00.000 96 % O2 Saturation (%) 2024-03-29 11:43:00.000 95 % O2 Saturation (%) 2024-03-29 11:33:00.000 97 % O2 Saturation (%) 2024-03-21 12:25:00.000 100 % O2 Saturation (%) 2024-03-15 10:35:00.000 92 % O2 Saturation (%) 2024-03-07 10:33:00.000 96 % O2 Saturation (%) 2024-03-03 15:21:00.000 95 % O2 Saturation (%) 2024-02-23 16:18:00.000 98 % Respirations 2024-04-13 12:13:00.000 18 /min Respirations 2024-04-08 10:10:00.000 16 /min Respirations 2024-03-29 11:33:00.000 18 /min Respirations 2024-03-21 12:25:00.000 18 /min Respirations 2024-03-15 10:35:00.000 16 /min Respirations 2024-03-07 10:33:00.000 18 /min Respirations 2024-03-03 15:21:00.000 16 /min Respirations 2024-02-23 16:18:00.000 16 /min Weight (lbs) 2024-04-13 12:18:00.000 128 [lb_av] Weight (lbs) 2024-03-29 11:37:00.000 129 [lb_av] Weight (lbs) 2024-03-21 12:29:00.000 128 [lb_av] Weight (lbs) 2024-03-15 10:35:00.000 149 [lb_av] Weight (lbs) 2024-02-23 16:18:00.000 176 [lb_av] Systolic Blood Pressure 2024-04-13 12:13:00.000 131 mm [Hg] Systolic Blood Pressure 2024-04-08 10:10:00.000 122 mm [Hg] Systolic Blood Pressure 2024-03-29 11:33:00.000 121 mm [Hg] Systolic Blood Pressure 2024-03-21 12:25:00.000 132 mm [Hg] Systolic Blood Pressure 2024-03-15 10:35:00.000 110 mm [Hg] Systolic Blood Pressure 2024-03-07 10:33:00.000 123 mm [Hg] Systolic Blood Pressure 2024-03-03 15:21:00.000 132 mm [Hg] Systolic Blood Pressure 2024-02-23 16:18:00.000 168 mm [Hg] Diastolic Blood Pressure 2024-04-13 12:13:00.000 83 mm [Hg] Diastolic Blood Pressure 2024-04-08 10:10:00.000 70 mm [Hg] Diastolic Blood Pressure 2024-03-29 11:33:00.000 [...] EMOTIONAL FACTORS IDENTIFIED DURING EVALUATION, PATIENT REQUESTED BILLBOARD POSTER CONSULT IN FOR EMOTIONAL SUPPORT/COMMUNITY RESOURCES PATIENT HAS HAD INCREASED DEPRESSION IN LIGHT OF LOSING FAMILY MEMBERS LAST YEAR [code = DATA CONTROL CLERK SUPERVISOR TO EVALUATE PATIENT SECONDARY TO SOCIAL AND EMOTIONAL FACTORS IDENTIFIED DURING EVALUATION, PATIENT REQUESTED BILLBOARD POSTER CONSULT IN FOR EMOTIONAL SUPPORT/COMMUNITY RESOURCES PATIENT [...] AND FALL PREVENTION. Goal Provider Goal - DATA CONTROL CLERK SUPERVISOR TO COMPLETE EVALUATION FOR THE ENHANCEMENT OF THE PATIENTS SOCIAL AND EMOTIONAL FACTORS. Encounters Start Date/Time End Date/Time Encounter Type Admission Type Attending [facility] Care Facility Care Department Encounter ID Discharge Date Discharge Status Discharge Condition Discharge Reason Percent Goals Met 2024-02-23 00:00:00 2024-04-22 00:00:00 Outpatient NEW ADMISSION FERMIN ALFREDO [facility] [id number] 38.89
--- OUTSIDE RECORDS SUMMARY | 2024-04-21 12:21 | XMS_ITS ---
Author Organization [facility] Address [address] [place] [address] Care Team Providers Care Meeting Manager Name Role Phone Eddie Messina MD Primary Care Provider Janey Fontenot [phone] REASON FOR VISIT COMPOUNDER FLAVORINGS Encounters Encounter Location Date Provider Diagnosis [address] [address] 03/08/2024 Janey Allen Plan Of Treatment Next Appt Details Provider Name:Janey lu, 05/17/2024 02:00:00 PM, [address] [place] [address], [phone], Progress Notes * Aroldo HARTMANClaudiaOB: [birth year] (73 yo F)Acc No.[id number]:03/08/2024 Patient:?Al HARTMAN :1950???Age:73 Y???Sex:Female Address:[address] [place] [address], [address] * true * Date:? Generated for Reba galicia/Margot/eTransmitting on:?04/21/2024 12:20 PM EDT
--- OUTSIDE RECORDS SUMMARY | 2024-04-21 12:22 | XMS_ITS | Clinical Summary ---
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 OF ASPIRIN Active 02-09 00:00: 00 FPC (CURRENT) USE OF ANTITHROMBOT ICS/ANTIPLAT ELETS Active 02-09 00:00: 00 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) USE OF INHALED STEROIDS Active 02-09 [...] tablet,veto yed release 02-15 00:00: 00 Yes [id number] 1 tablet DAILY 1 tablet DAILY (route: oral) Med Classific ation: Gastroint estinal Therapy Agents spironolact one 25 mg tablet 02-15 00:00: 00 Yes [id number] 1 tablet DAILY 1 tablet DAILY (route: oral) Med Classific ation: Cardiovas cular Therapy Agents theophyllin e ER 400 mg tablet,exte nded release 24 hr 2023-02 00:00: 00 Yes [id number] 1 tablet DAILY 1 tablet DAILY (route: oral) Med Classific ation: Respirato ry Therapy Agents Trelegy Ellipta 200 mcg-62.5 mcg-25 mcg powder for inhalation 2023-02 00:00: 00 Yes [id number] 1 inhalat ion DAILY 1 inhalation DAILY (route: inhalation ) Med Classific ation: Respirato ry Therapy Agents albuterol sulfate HFA 90 mcg/actuati on aerosol inhaler 2023-02 00:00: 00 Yes [id number] Per instruc tions DIRECTED Per instructio ns DIRECTED (route: inhalation ) Med Classific ation: Respirato ry Therapy Agents amiodarone 200 mg tablet 2023-02 2-09 00:00: 00 Yes [id number] 1 tablet DAILY 1 tablet DAILY (route: oral) Med Classific ation: Cardiovas cular Therapy Agents aspirin 81 mg tablet,veto yed release 2023-02 0-31 00:00: 00 Yes [id number] 1 tablet DAILY 1 tablet DAILY (route: oral) Med Classific ation: Hematolog ical Agents clopidogrel 75 mg tablet 2023-02 2- 00:00: 00 Yes [id number] 1 tablet DAILY 1 tablet DAILY (route: oral) Med Classific ation: Hematolog ical Agents ipratropium 0.5 mg-albutero l 3 mg (2.5 mg base)/3 mL nebulizatio n soln 2023-02 2-16 00:00: 00 Yes [id number] Per instruc tions DIRECTED Per klarissa lazar DIRECTED (route: inhalation ) Med Classific ation: Respirato ry Therapy Agents Lamictal 100 mg tablet 2023-02 00:00: 00 Yes [id number] 1 tablet EVERY AM 1 tablet EVERY AM (route: oral) Med Classific ation: Central Nervous System Agents Lamictal 200 mg tablet 2023-02 00:00: 00 Yes [id number] 1 tablet DAILY 1 tablet DAILY (route: oral) Med Classific ation: Central Nervous System Agents loratadine 10 mg capsule 2023-02 00:00: 00 Yes [id number] 1 capsule DAILY 1 capsule DAILY (route: oral) Med Classific ation: Respirato ry Therapy Agents losartan 50 mg tablet 2023-02- 00:00: 00 Yes [id number] 1 tablet DAILY 1 tablet DAILY (route: oral) Med Classific ation: Cardiovas cular Therapy Agents oxybutynin chloride ER 10 mg tablet,exte nded release 24 hr 2023-02- 00:00: 00 Yes [id number] 1 tablet EVERY AM 1 tablet EVERY AM (route: oral) Med Classific ation: Genitouri nary Therapy tretinoin 0.025 % topical cream 2023-02- 00:00: 00 Yes [id number] Per instruc tions DAILY Per instructio ns DAILY (route: topical) Med Classific ation: Dermatolo gical Wellbutrin SR 200 mg tablet, 12 hr sustained-r elease 2023-02 00:00: 00 Yes [id number] 1 tablet 2 TIMES DAILY 1 tablet 2 TIMES DAILY (route: oral) Med Classific ation: Central Nervous System Agents azithromyci n 250 mg tablet 03-13 00:00: 00 03-17 23:59 :00 No [id number] Per instruc tions DIRECTED Per instructio ns DIRECTED (route: oral) Med Classific ation: Anti-Infe ctive Agents prednisone 10 mg tablet 03-12 00:00: 00 03-25 23:59 :00 No [id number] Per instruc tions DIRECTED Per instructio ns [...] EMOTIONAL FACTORS IDENTIFIED DURING EVALUATION, PATIENT REQUESTED COMPUTERIZED MILL MILL RECORDER CONSULT IN FOR EMOTIONAL SUPPORT/COMMUNITY RESOURCES PATIENT HAS HAD INCREASED DEPRESSION IN LIGHT OF LOSING FAMILY MEMBERS LAST YEAR [code = VULNERABILITY RESEARCHER TO EVALUATE PATIENT SECONDARY TO SOCIAL AND EMOTIONAL FACTORS IDENTIFIED DURING EVALUATION, PATIENT REQUESTED COMPUTERIZED MILL MILL RECORDER CONSULT IN FOR EMOTIONAL SUPPORT/COMMUNITY RESOURCES PATIENT [...] AND FALL PREVENTION. Goal Provider Goal - VULNERABILITY RESEARCHER TO COMPLETE EVALUATION FOR THE ENHANCEMENT OF THE PATIENTS SOCIAL AND EMOTIONAL FACTORS. Encounters Start Date/Time End Date/Time Encounter Type Admission Type [facility] Care Facility Care Department Encounter ID Discharge Date Discharge Status Discharge Condition Discharge Reason Percent Goals Met 2024-02-23 00:00:00 2024-04-22 00:00:00 Outpatient NEW ADMISSION FERMIN ALFREDO [facility] [id number] 38.89
--- OUTSIDE RECORDS SUMMARY | 2024-04-21 12:22 | XMS_ITS | Patient Health Record ---
Author Organization [facility] Address [address] [place] [address] Care Team Providers Care Warehouse Coordinator Name Role Phone Eddie Messina MD Primary Care Provider Janey Fontenot Unavailable [phone] Reason For Referral No Information Encounters Encounter Location Date Provider Diagnosis [facility] [address] [place] [address] 03/08/2024 Janey Allen Plan Of Treatment Next Appt Details Provider Name:Janey lu, 05/17/2024 02:00:00 PM, [address] [place], [address], Insurance Providers Payer Name Payer Address Payer Phone Subscriber Number Group Number Insured Name Patient Relationship to Insured Coverage Start Date Coverage End Date Medicare National [facility] [address] [place] [phone] Al Hartman Self - patient is the insured Aetna [address] [place] [phone] [id number] Al Hartman Self - patient is the insured
== END 2024-04-21 10:45 | disposition home or self-care (01) ==
LOC: HO.HBS 09:58
PROVIDERS: PCP Internal Medicine; Visit Provider Physician Assistant Surgical
DX: Z71.3 Dietary counseling and surveillance (principal); Z98.84 Bariatric surgery status
CPT/HCPCS: 99213; G2211

== ENCOUNTER → 2024-04-21 09:57 | Outpatient (BNVA) | payer MEDICARE, SELFPAY ==
[2023-09-24 15:56] VITALS: BMI 25.2
== END ==
PROVIDERS: PCP Internal Medicine; Visit Provider Physician Assistant Surgical
DX: Z98.84 Bariatric surgery status (principal)
CPT/HCPCS: 99212

== ENCOUNTER 2024-04-29 10:28 | Outpatient (REF) | payer MEDICARE, SELFPAY ==
[2023-09-24 15:56] VITALS: BMI 25.2
--- NOTE | ~2024-04-29 | XR_ITS ---
EXAMINATION: XR HAND 3 OR MORE VIEWS LEFT HISTORY: M79.642 - Pain in left hand COMPARISON: There are no prior studies available for comparison. FINDINGS: Three views of the left hand are submitted. Osseous mineralization is normal. There is no fracture or dislocation. There is severe osteoarthritis of the 1st carpometacarpal joint, with joint space narrowing and osteophyte formation. The soft tissues are unremarkable. XR/XR hand LT min 3V IMPRESSION: Severe osteoarthritis of the 1st carpometacarpal joint. Electronically signed by: Llao Rangel MD 04/29/2024 11:22 AM EDT
== END 2024-04-29 10:29 | disposition home or self-care (01) ==
LOC: HO.HMGCX 10:28
PROVIDERS: PCP Internal Medicine; Visit Provider Physician Assistant Medical
DX: M79.642 Pain in left hand (principal)
CPT/HCPCS: 73130; 99212

== ENCOUNTER 2024-04-29 10:28 | Outpatient (AMB) | payer MEDICARE, SELFPAY ==
[2023-09-24 15:56] VITALS: BMI 25.2
[2024-04-29 10:43] VITALS: BP 116/72; PULSE 88; O2SAT 99; BMI 23.8
--- NOTE | 2024-04-29 10:43 | AM.OFFWIN_ITS ---
Intake Vital Signs 04/29/24 10:43 Height 5 ft 2 in Weight 130 lb BMI 23.8 BP 116/72 Blood Pressure Location Rt brachial Position Sitting Pulse 88 Pulse Source Pulse Oximeter Pulse Oximetry (%) 99 Oxygen Delivery Method Room Air Intake Visit Reasons: EP LT Arm injury, SOB Intake Note: Patient here for left arm injury from light weight vaccum yesterday. Patient Tobacco Use Status: Former Tobacco user Allergies No Known Allergies [No Known Allergies*] Allergy (Verified 04/29/24 10:46) Do you need a note to return to daycare/school/sports/work: No HPI HPI Comments History of Present Illness Details This is a 73-year-old female who presented to the walk-in clinic complaining of left hand pain. Patient states she was using a lightweight vaccuum yesterday but she tripped and dropped the vaccuum on her left hand. She developed left hand bruising, swelling, and pain following the injury. She denies any numbness/weakness/paresthesias of the arm or hand. She denies any pain of her wrist, elbow, or shoulder. [facility] Medical History (Updated 03/31/24 @ 14:14 by Peyton Waddell NP) Acute respiratory disease Paroxysmal A-fib Hypertension Hx of uterine prolapse Arthritis Hx of transfusion of packed red blood cells GERD (gastroesophageal reflux disease) Anxiety Depression History of cardioversion MILY (obstructive sleep apnea) SOB (shortness of breath) Anemia Cough Orthopnea Post covid-19 condition, unspecified Loculated pleural effusion MSSA bacteremia Atrial fibrillation, new onset Constipation Overweight (BMI 25.0-29.9) UTI (urinary tract infection) Asthma Malabsorption due to intolerance, not elsewhere classified Surgical History Hx of total shoulder replacement History of esophagogastroduodenoscopy (EGD) H/O colonoscopy History of total replacement of right hip History of bunionectomy Left inguinal hernia History of total right hip arthroplasty S/P laparoscopic sleeve gastrectomy Social History Household Members: Family Household Members Other:: Danny Housing: House Are you a primary care services manager to a significant other at home: No Do you presently have visiting nurse or other home services: No Alcohol intake: never Comment: refused bed alarm Patient Tobacco Use Status: Former Tobacco user Tobacco use type: Cigarette Years Smoked: 16 years Second Hand Smoke Exposure: No service: No 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al status: retired 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 of Systems Const All systems reviewed & are unremarkable except as noted in HPI and below Reports no additional complaints Eyes Reports no additional complaints ENT Reports no additional complaints Card Reports no additional complaints Resp Reports no additional complaints GI Reports no additional complaints Reports no additional complaints Musc Reports no additional complaints Skin/Breast Reports system reviewed and no additional complaints, except as documented Neuro Reports no additional complaints Psych Reports no additional complaints Endo Reports no additional complaints Micah/Lymph Reports no additional complaints Aller/Immun Reports no additional complaints Physical Exam Const Other: Vital signs reviewed. Constitutional: Non-toxic appearing. No acute distress. Well-developed and well-nourished. HEENT: Normocephalic and atraumatic. Skin: Warm and dry. No rashes or lesions noted. Neck: Full and painless range of motion. No cervical lymphadenopathy. Cardio: Regular rate. No lower extremity edema. Pulmonary: No respiratory distress. No accessory muscle usage. Gastrointestinal: Soft, nontender, and nondistended in all 4 quadrants. Musculoskeletal: There is significant ecchymosis of the left hand involving the dorsal aspect of the left hand, the left wrist, phalanges, and some milder ecchymosis to the palmar aspect of the left hand. There is tenderness to palpation of the 2nd-5th metacarpals as well as an area of fluctuance located over the 2nd metacarpal. There is no tenderness to palpation of the left wrist or forearm. Neuro: Alert and oriented x4. Cranial nerves 2-12 grossly intact. No focal deficits appreciated. Psych: Normal mood and affect. Assessment & Plan Assessment & Plan (1) Left hand pain: Code(s): M79.642 - Pain in left hand Plan: This is a 73-year-old female who presented to the walk-in clinic complaining of left hand pain, swelling, and bruising. Patient states she dropped a vacuum on her left hand yesterday. Her differential diagnosis includes fracture versus contusion. An x-ray of the left hand was obtained, which was negative for acute fracture so patient very likely has an acute continue. Recommended rest/activity modification, ice to the area, compression, elevation of the extremity, and continue with acetaminophen for pain management. Patient verbalized understanding and is agreeable with the plan. Coding Level of Care Code Est Pt Level 3 (02724) Diagnoses Left hand pain M79.642
--- OUTSIDE RECORDS SUMMARY | 2024-04-29 12:29 | XMS_ITS ---
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 Generated for Reba galicia/Margot/eTransmitting on:?04/29/2024 12:29 PM EDT
--- OUTSIDE RECORDS SUMMARY | 2024-04-29 12:29 | XMS_ITS | Data Portability ---
Author Organization [facility], [facility] [address] Address [address] [place] [address] Care Team Providers Care University Librarian Name Role Phone TRINITYPARAMJIT Garcia Primary Care Provider [phone] Assessment No assessment recorded. Plan of Treatment Reminders Order Date Submit Date Provider Last Modified By Organization Details Last Modified Time Details Appointments None recorded. Lab rapid SARS CoV 2 Ag, QL IA, respiratory specimen 2022 023 [facility], [address] [place] [address], [phone], 3 10:28:00 Referral None recorded. Procedures None recorded. Surgeries None recorded. Imaging None recorded. Medication Orders Allergy Relief (fluticason e) 50 mcg/actuati on nasal spray,suspe nsion 2022 023 [id number], [address] [place], [address], 3 10:29:44 benzonatate 200 mg capsule 2022 023 [id number] [address] [place], [address], 3 10:29:43 prednisone 20 mg tablet 2022 023 [id number] [address] [place], [address], 3 10:29:44 prednisone 20 mg tablet 2022 023 [facility], [address] [place] [address], [address], 09:56:02 Patient TargetsNo targets recorded. Patient Instructions Encounter Date Encounter Id Patient Instructions Last Modified By Organization Details Last Modified Time 02/15/2022 [id number] As discussed in office cause of your [...] you today and thank you for choosing [facility] for your healthcare needs! Use your ALBUTEROL [...] [email or web address] Not available 02/15/2022 10:27:06 03/01/2022 [id number] cough: care instructions Not available 03/01/2022 10:28:00 [...] wear a mask. For travel guidance, see [facility]? s Travel webpage. Do not travel. Stay [...] masking (see below). For travel guidance, see [facility]? s Travel webpage. Not available 03/01/2022 10:29:30 Reason for Referral None Reported. Results Created Date Observation Date Name Description Value Unit Range Abnormal Flag Note LastModifiedBy Organization Detail LastModifiedTime 03/01/1903/01/2022 rapid SARS CoV 2 Ag, QL IA, respi rator y speci men Unknown Analyte Normal =Negat aki Not Available [address] [place], [address], 03/01/2022 09:52:23 03/01/19 23 03/01/2022 rapid SARS CoV 2 Ag, QL IA, respi rator y speci men Unknown Analyte negati ve Not Available [address] [address] [facility], [place], [address], 03/01/2022 09:52:23 Result Notes None recorded. Problems Name Problem SNOMED Code Status Onset Date Resolution Date Notes Provider Name and Address Organization Details Recorded Time Asthma 682847936 Active 2022 ADRIEN LUPICA null, PA - [facility] 3 09:26:28 Hypertensive disorder 46200813 Active 2022 ADRIEN LUPICA null, PA - [facility] 3 09:26:43 Gastroesophage al reflux disease 128228863 Active 2022 ADRIEN LUPICA null, PA - [facility] 3 09:26:56 Arthritis 2680405 Active 2022 ADRIEN LUPICA null, PA - [facility] 3 09:27:07 Depressive disorder 99854787 Active 2022 ADRIEN LUPICA null, PA - [facility] 3 09:27:13 Urinary incontinence 651340716 Active 2022 ADRIEN LUPICA null, PA - [facility] 3 09:27:23 Atrial fibrillation 34593082 Active 2022 ADRIEN LUPICA null, PA - [...] Updated DateTime 3 157.48 cm 24.7 kg/m2 91190.9 7 g 97.1 [degF] 16 /min 100 [...] % 63 /min 16 /min 24.7 kg/m2 40647.9 7 g 162 mm[Hg] 81 mm[Hg] ADRIEN GB PA - [facility] 3 09:54:56 Social History Question Answer Notes LastModified by [employer] ion Details LastModified Time Tobacco Smoking Status Former Smoker ADRIEN woodall PA - [facility] 02/15/2022 09:29:00 What Is Your Level Of Alcohol Consumption? None Information not available 02/15/2022 Do You Use Any Illicit Or Recreational Drugs? No [email or web address] Information not available 02/15/2022 Have You Recently Traveled Abroad? No [email or web address] Information not available 02/15/2022 Do You Or Have You Ever Used Any Other Forms Of Tobacco Or Nicotine? No [email or web address] Information not available 02/15/2022 Sex: Unknown Functional Status None recorded. Mental Status None recorded. Family History Relationship Description Onset Age of this Age Resolved Age Notes LastModified by Organization Details LastModified Time Father Asthma [email or web address] Not available 02/15/2022 09:28:09 Daughter Asthma x2 [email or web address] Not available 02/15/2022 09:28:09 Medical History No medical history recorded. Gynecological HistoryNo gynecological history recorded. Obstetrics History GPAL:G 0 P 0 0 0 0 Past Encounters Encounter ID Performer Location Encounter Start Date Encounter Closed Date Diagnosis/Indication Diagnosis SNOMED-CT Code Diagnosis ICD10 Code Diagnosis Note [id number] [address] [facility] [place] [address] 03/25/2019 17:45:10 03/25/2019 18:08:13 [id number] [address] [address] [facility] [place] [address] 05/27/2018 18:40:43 05/27/2018 19:22:07 [id number] [address] [address] [facility] [place] [address] 02/27/2019 14:56:29 02/27/2019 15:42:02 [id number] [address] [facility] [place] [address] 10/30/2017 19:21:18 10/30/2017 19:55:57 [id number] [address] [facility] [place] [address] 10/02/2018 18:49:34 10/02/2018 19:27:17 [id number] [address] [address] [facility] [facility] [place] [address] 12/14/2020 18:12:30 12/14/2020 19:34:48 [id number] [address] [address] [facility] [place] [address] 11/09/2018 19:59:54 11/09/2018 20:41:23 [id number] [address] [facility] [place] [address] 10/06/2021 13:31:31 10/06/2021 14:40:09 [id number] [address] [facility] [place] [address] 03/20/2017 19:22:24 03/20/2017 19:56:42 [id number] [address] [facility] [place] [address] 03/12/2017 17:09:00 03/12/2017 18:31:15 [id number] [address] [facility] [place] [address] 11/22/2017 13:22:24 11/22/2017 14:43:05 [id number] [address] [facility] [place] [address] 01/02/2018 18:21:27 01/02/2018 19:54:08 [id number] [address] [place] [address] [place] [address] 02/15/2017 17:19:32 02/15/2017 18:04:10 [id number] [address] [place] [address] [place] [address] 01/23/2018 18:56:39 01/23/2018 19:33:12 [id number] [address] [place] [address] [place] [address] 07/03/2017 14:51:55 07/03/2017 15:50:48 [id number] ANIYA RAZO [address] [facility] [place] [address] 02/15/2022 09:04:52 02/15/2022 10:31:22 Exacerbation of intermittent asthma 893338167 J45.21 Follow up with your pulmonolog ist as scheduled at the end of this month. [id number] Brady Villarreal NP [address] [place] [address] 03/01/2022 08:38:51 03/01/2022 10:36:25 Exposure to SARS-CoV-2 586353215 Z20.822 Acute bronchitis 3787925 2 J20.9 Health Concerns Section Related Observation LastModified by Organization Detai ls LastModified Time None Recorded Concern Status LastModified by Organization Details LastModified Time None Recorded Advance Directives Directive None Recorded Payers Encounter Date Sequence Insurance Name Policy Number Policy Hay Covered Member ID Hay Member ID Guarantor Name 02/15/2022 1 [employer] (MEDICARE REPLACEMENT PPO) [id number] Shilpa Hartman [id number] Shilpa Hartman 03/01/2022 1 [employer] (MEDICARE REPLACEMENT PPO) [id number] Shilpa Hartman [id number] Shilpa Hartman Notes Date Note Type Note [...] asking for same. Has apt with her cooker cleaner in a couple weeks for f/u. Denies SOB. Had wheezing this morning which resolved. Notes wheezing seems to be worse in the mornings, and relates this to post nasal drip. No LE edema. ANIYA ARCEO JD [address] [place], [address], [place] - [facility] 02/15/2022 10:31:07 03/01/2022 text/html CongestionReport ed bypatient.Notes:follow up for chest congestion, nasal congestion with post nasal drip x 3 days. denies any fever or fever with chills. no SOB or respiratory distress. Brady Villarreal NP [address] [place], [address], [place] - [facility] 03/01/2022 10:30:08 OBGyn Episode No OBEpisode recorded.
--- OUTSIDE RECORDS SUMMARY | 2024-04-29 12:29 | XMS_ITS | Patient Health Record ---
Author Organization [facility] Address [address] [place] [address] Care Team Providers Care Lapidarist Name Role Phone Eddie Messina MD Primary Care Provider Lalo Hillman [phone] Reason For Referral No Information Medications Medication [...] Problem Status W/U Status Risk Notes Problem 425690740 Encounter for screening for malignant neoplasm of colon (Z12.11) Active confirmed Problem 981315210 History of adenomatous polyp of colon (Z86.010) Active confirmed Problem Screening for malignant neoplasm of rectum (060135644) Encounter for screening for malignant neoplasm of rectum (Z12.12) Active confirmed Problem 671172744 Gastroesophageal reflux disease with esophagitis (K21.0) Active confirmed Problem 000331661 Gastroesophageal reflux disease, esophagitis presence not specified (K21.9) Active confirmed Problem 12209268 Hiatal hernia (K44.9) Active confirmed Problem 39065764 Erosive esophagi tis (K22.10) Active confirmed Problem 98172269 Iron deficiency anemia, unspecified iron deficiency anemia type (D50.9) Active confirmed Problem 543384273 Anemia due to ot her cause, not classified (D64.89) Active confirmed Problem 34639169 Irritable bowel syndrome with both constipation and diarrhea (K58.2) Active confirmed Encounters Encounter Location Date Provider Diagnosis [facility] [address] [place] [address] 10/14/2023 Lalo Vaughn Plan Of Treatment Pending [...] Date Coverage End Date [employer] [address] [address] [id number] DUNIA HARTMAN Self - patient is the insured Medical (General) History Medical History History ICD Code Tubular adenomas removed in 2004; negative colonoscopy 09/2010 and 07/2017, except for diverticulosis Denies SC,DM,CVA,Lung disease,renal dise ase Negative cardiac cath at [...] Bariatric surgery with sleeve gastrectom y at [facility] 04/13/2018 Hiatal hernia repair at [facility] 04/13/2018
--- OUTSIDE RECORDS SUMMARY | 2024-04-29 12:29 | XMS_ITS | Clinical Summary ---
Author Organization [facility] Address [address] [place] [address] Care Team Providers Care Earth Burner Name Role Phone Eddie Messina MD Primary Care Provider [phone] Allergies No known active allergies Medications albuterol [...] patient's age to complete this topic Insurance [facility] Care Teams Earth Burner Relationship Specialty Start Date End Date Eddie Messina MD [employer] [address] [place] [address] [place] PCP - General Internal Medicine 05/11/20
--- OUTSIDE RECORDS SUMMARY | 2024-04-29 12:29 | XMS_ITS ---
Author Organization [facility] Address [address] [place] [address] Care Team Providers Care District Recruiter Name Role Phone Eddie Messina MD Primary Care Provider Lalo Hillman [phone] REASON FOR VISIT Pt no show Encounters Encounter Location Date Provider Diagnosis [facility] [address] [place] [address] 10/14/2023 Lalo Vaughn Plan Of Treatment No Information Progress Notes * DUNIA HARTMANSAMPSONOB:1950 (72 yo F)Acc No.[id number]:10/14/2023 Patient:?DUNIA HARTMAN :1950???Age:72 Y???Sex:Female Address:[address] [place] [address] * true * Date:? Generated for Reba galicia/Margot/eTransmitting on:?04/29/2024 12:29 PM EDT
--- OUTSIDE RECORDS SUMMARY | 2024-04-29 12:29 | XMS_ITS ---
Author Organization [facility] Address [address] [place] [address] Care Team Providers Care Carton Marker Machine Name Role Phone Mayuri PASCUAL, Eddie Primary Care Provider Lalo Hillman [phone] REASON FOR VISIT Patient presents today for nausea, vomitting, Encounters Encounter Location Date Provider Diagnosis [facility] [address] [address] 10/14/2023 Lalo Vaughn Plan Of Treatment No Information Progress Notes * DUNIA HARTMANEDOB:1950 (73 yo F)Acc No.[id number]:10/14/2023 Progress Notes Patient:?DUNIA HARTMAN Provider:?Lalo Vaughn MD :1950???Age:72 Y???Sex:Female D ate:10/14/2023 Address:[address] [place], [place] [id number] Pcp:Eddie Messina MD Subjective: * Chief Complaints: [...] MD Date:? 024 Generated for Printi ng/Faxing/eTransmitting on:?04/29/2024 12:28 PM EDT
--- OUTSIDE RECORDS SUMMARY | 2024-04-29 12:30 | XMS_ITS | Patient Health Record ---
Author Organization [facility] Address [address] [place] [address] Care Team Providers Care Band Splitter Name Role Phone Eddie Messina MD Primary Care Provider Janey Fontenot Unavailable [phone] Reason For Referral No Information Encounters Encounter Location Date Provider Diagnosis [facility] [address] [place] [address] 03/08/2024 Janey Allen Plan Of Treatment Next Appt Details Provider Name:Janey lu, 05/17/2024 02:00:00 PM, [address] [place], [address], Insurance Providers Payer Name Payer Address Payer Phone Subscriber Number Group Number Insured Name Patient Relationship to Insured Coverage Start Date Coverage End Date Medicare [facility] [address] [place] [phone] Al Hartman Self - patient is the insured [employer] [address] [place] [phone] [id number] Al Hartman Self - patient is the insured
== END 2024-04-29 11:34 | disposition home or self-care (01) ==
PROVIDERS: PCP Internal Medicine; Visit Provider Physician Assistant Medical
DX: M79.642 Pain in left hand (principal)

== ENCOUNTER → 2024-04-29 10:59 | Outpatient (BNV) | payer MEDICARE, SELFPAY ==
[2023-09-24 15:56] VITALS: BMI 25.2
== END ==
PROVIDERS: PCP Internal Medicine; Visit Provider Radiology Diagnostic Radiology
DX: M18.12 Unilateral primary osteoarthritis of first carpometacarpal joint, left hand (principal)
CPT/HCPCS: 73130

== ENCOUNTER 2024-05-05 09:21 | Outpatient (REF) | payer MEDICARE, SELFPAY ==
[2023-09-24 15:56] VITALS: BMI 25.2
--- NOTE | ~2024-05-05 | XR_ITS ---
EXAMINATION: XR HAND AND WRIST COMPLETE LEFT HISTORY: S69.92XA - Unspecified injury of left wrist, hand and finger(s), initial... COMPARISON: Comparison is made with the prior examination dated 04/29/2024. FINDINGS: Three views of the left hand and wrist are submitted. Osseous mineralization is normal. There is no fracture or dislocation. Again seen is severe osteoarthritis of the 1st carpometacarpal joint, with joint space narrowing and osteophyte formation. The soft tissues are unremarkable. XR/XR hand wrist LT IMPRESSION: Severe osteoarthritis of the 1st carpometacarpal joint. No evidence of fracture of the left hand. Electronically signed by: Lalo Rangel MD 05/05/2024 09:58 AM EDT
== END 2024-05-05 09:22 | disposition home or self-care (01) ==
LOC: HO.HMGCX 09:21
PROVIDERS: PCP Internal Medicine; Visit Provider Nurse Practitioner Family
DX: S69.92XA Unspecified injury of left wrist, hand and finger(s), initial encounter (principal)
CPT/HCPCS: 73110; 73130; 99212

== ENCOUNTER 2024-05-05 09:21 | Outpatient (AMB) | payer MEDICARE, SELFPAY ==
[2023-09-24 15:56] VITALS: BMI 25.2
--- NOTE | 2024-05-05 09:22 | AM.OFFWIN_ITS ---
Intake Vital Signs 05/05/24 09:25 Weight 128 lb BP 124/78 Blood Pressure Location Rt brachial Position Sitting Pulse 67 Pulse Source Pulse Oximeter Pulse Oximetry (%) 99 Oxygen Delivery Method Room Air Intake Visit Reasons: EP Pain & swollen LT hand & wrist Intake Note: Patient here for left hand and wrist pain after a fall yesterday. Patient Tobacco Use Status: Former Tobacco user Allergies No Known Allergies [No Known Allergies*] Allergy (Verified 05/05/24 09:24) Do you need a note to return to daycare/school/sports/work: No HPI HPI Comments History of Present Illness Details 73 y/o female patient who presents to [facility] walk in clinic with c/ Left Hand/wrist injury from a Fall yesterday. She does not remember how she fell - believes happened when she was getting out of bed. She presented to [facility] 04/29 with pain left wrist/hand after a Vacuum fell on her hand. Xray showed: Severe osteoarthritis of the 1st carpometacarpal joint. She does have a Large Hematoma on the left Hand/wrist from previous injury. She is currently on Plavix due to A-Fib. [facility] Medical History (Updated 05/05/24 @ 10:20 by Peyton Waddell NP) Left wrist injury Acute respiratory disease Paroxysmal A-fib Hypertension Hx of uterine prolapse Arthritis Hx of transfusion of packed red blood cells GERD (gastroesophageal reflux disease) Anxiety Depression History of cardioversion MILY (obstructive sleep apnea) SOB (shortness of breath) Anemia Cough Orthopnea Post covid-19 condition, unspecified Loculated pleural effusion MSSA bacteremia Atrial fibrillation, new onset Constipation Overweight (BMI 25.0-29.9) UTI (urinary tract infection) Asthma Malabsorption due to intolerance, not elsewhere classified Surgical History Hx of total shoulder replacement History of esophagogastroduodenoscopy (EGD) H/O colonoscopy History of total replacement of right hip History of bunionectomy Left inguinal hernia History of total right hip arthroplasty S/P laparoscopic sleeve gastrectomy Social History Household Members: Family Household Members Other:: Danny Housing: House Are you a primary lawn care technician to a significant other at home: No Do you presently have visiting nurse or other home services: No Alcohol intake: never Comment: refused bed alarm Patient Tobacco Use Status: Former Tobacco user Tobacco use type: Cigarette Years Smoked: 16 years Second Hand Smoke Exposure: No service: No 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al status: retired 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 of Systems Const All systems reviewed & are unremarkable except as noted in HPI and below Physical Exam Vital Signs: Last Vital Signs Pulse 67 05/05/24 09:25 BP 124/78 05/05/24 09:25 Pulse Ox 99 05/05/24 09:25 Oxygen Delivery Method Room Air 05/05/24 09:25 Const General: no acute distress Nutritional Appearance: well nourished Orientation/consciousness: patient oriented x3 Skin Other: Bruises covering both upper extremities. Neuro General: patient oriented x3 Extrem Left upper extremity: hand (Large Hematoma left dorsal hand) Details: normal capillary refill, tenderness Location: of the dorsal hand Location: over the radial aspect and over the ulnar aspect, normal ROM of fingers, no swelling and ecchymosis Location: of the dorsal hand Psych Speech and movement: Normal speech and movement present Assessment & Plan Assessment & Plan (1) Left wrist injury: Code(s): S69.92XA - Unspecified injury of left wrist, hand and finger(s), initial encounter Qualifiers: Encounter type: subsequent encounter Qualified Code(s): S69.92XD - Unspecified injury of left wrist, hand and finger(s), subsequent encounter Plan: Wrapped Hand/Wrist with Mitch Bandage Applied Ice/Heat Acetaminophen for pain relief Ordered Xrays. Orders: Orders XR hand wrist LT Today S69.92XA - Unspecified injury of left wrist, hand and finger(s), initial encounter Coding Level of Care Code Est Pt Level 4 (68084) Diagnoses Injury of left wrist, subsequent encounter S69.92XD Encounter type: subsequent encounter Time Spent (min) 20
[2024-05-05 09:25] VITALS: BP 124/78; PULSE 67; O2SAT 99
== END 2024-05-05 10:24 | disposition home or self-care (01) ==
PROVIDERS: PCP Internal Medicine; Visit Provider Nurse Practitioner Family
DX: S69.92XD Unspecified injury of left wrist, hand and finger(s), subsequent encounter (principal)

== ENCOUNTER → 2024-05-05 09:39 | Outpatient (BNV) | payer MEDICARE, SELFPAY ==
[2023-09-24 15:56] VITALS: BMI 25.2
== END ==
PROVIDERS: PCP Internal Medicine; Visit Provider Radiology Diagnostic Radiology
DX: M79.642 Pain in left hand (principal)
CPT/HCPCS: 73130

== ENCOUNTER 2024-05-17 13:29 | Outpatient (AMB) | payer MEDICARE, SELFPAY ==
[2023-09-24 15:56] VITALS: BMI 25.2
[2024-05-17 13:32] VITALS: BP 142/78; PULSE 75; O2SAT 98; BMI 23.8
--- NOTE | 2024-05-17 13:32 | A.OFFVIS_ITS ---
Vital Signs 05/17/24 13:32 Height 5 ft 2 in Weight 130 lb BMI 23.8 BP 142/78 H Blood Pressure Location Rt brachial Position Sitting Pulse 75 Pulse Source Doppler Pulse Oximetry (%) 98 Oxygen Delivery Method Room Air Comment Verbal weight. patient refused scale Intake Visit Reasons: Shortness of breath Allergies No Known Allergies [No Known Allergies*] Allergy (Verified 05/17/24 13:40) HPI HPI Shortness of breath: Details: 73-year-old lady, former 15 pack-year smoker, quit 1986, with underlying history of asthma and hypertension and prior MSSA pneumonia complicated by loculated effusion status post chest tube with successful chemical decortication, now followed for asthma/COPD and dyspnea on exertion. Patient has been using Trelegy, theophylline, and albuterol MDI/Duonebs with good baseline control of her symptoms. She is scheduled for AFib ablation shortly. Patient denies recent acute exacerbations. [facility] Medical History (Updated 05/05/24 @ 10:20 by Peyton Waddell NP) Left wrist injury Acute respiratory disease Paroxysmal A-fib Hypertension Hx of uterine prolapse Arthritis Hx of transfusion of packed red blood cells GERD (gastroesophageal reflux disease) Anxiety Depression History of cardioversion MILY (obstructive sleep apnea) SOB (shortness of breath) Anemia Cough Orthopnea Post covid-19 condition, unspecified Loculated pleural effusion MSSA bacteremia Atrial fibrillation, new onset Constipation Overweight (BMI 25.0-29.9) UTI (urinary tract infection) Asthma Malabsorption due to intolerance, not elsewhere classified Surgical History Hx of total shoulder replacement History of esophagogastroduodenoscopy (EGD) H/O colonoscopy History of total replacement of right hip History of bunionectomy Left inguinal hernia History of total right hip arthroplasty S/P laparoscopic sleeve gastrectomy Social History Household Members: Family Household Members Other:: Danny Housing: House Are you a primary lpn care manager to a significant other at home: No Do you presently have visiting nurse or other home services: No Alcohol intake: never Comment: refused bed alarm Patient Tobacco Use Status: Former Tobacco user Tobacco use type: Cigarette Years Smoked: 16 years Second Hand Smoke Exposure: No service: No 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al status: retired 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 of Systems Const Denies daytime sleepiness, Denies excessive sweating, Denies fatigue, Denies fever(s), Denies lethargy, Denies malaise, Denies night sweats, Denies snoring and Denies weight loss Eyes Denies blurry vision and Denies itchy eyes ENT Denies nasal congestion, Denies post nasal drip, Denies sinus pain, Denies sinus pressure and Denies other ( Thrush) Card Denies chest pain, Denies pedal edema, Denies dyspnea, Denies orthopnea and Den ies paroxysmal nocturnal dyspnea Resp Denies cough, Denies hemoptysis, Denies excessive phlegm production, Denies dyspnea, Denies snoring and Denies wheezing GI Denies abdominal pain and Denies heartburn Musc Denies myalgias, Denies arthralgias and Denies joint swelling Skin/Breast Denies rash Neuro Denies memory loss and Denies seizure-like activity Psych Denies abnormal sleep pattern, Denies anxiety and Denies memory loss Endo Denies excessive sweating, Denies fatigue and Denies heat intolerance Micah/Lymph Denies easy bruising Aller/Immun Denies itchy eyes, Denies seasonal rhinorrhea and Denies wheezing Physical Exam Vital Signs: Last Vital Signs Pulse 75 05/17/24 13:32 BP 142/78 H 05/17/24 13:32 Pulse Ox 98 05/17/24 13:32 Oxygen Delivery Method Room Air 05/17/24 13:32 BMI result Body Mass Index 23.8 Const General: no acute distress and alert Nutritional Appearance: not obese Orientation/consciousness: Other orientation findings ( oriented) HEENT Head: Yes atraumatic Eyes General: appearance normal, both eyes and all related structures Sclerae: sclerae normal EOM: EOMs intact bilaterally Neck Neck: Yes supple Lymphatic: no lymphadenopathy noted Resp Effort & Inspection: normal respiratory effort and no use of accessory muscles Auscultation: clear to auscultation bilaterally Cardio Rate: regular rate Rhythm: regular rhythm Heart sounds: no gallops, no murmurs and no rubs Skin General skin exam: other ( warm) Extrem General: No clubbing, No cyanosis and No edema Assessment & Plan Assessment & Plan (1) Asthma: Code(s): J45.909 - Unspecified asthma, uncomplicated Category: Medical Plan: Well controlled on current regimen of Trelegy, theophylline, duo nebs, and albuterol MDI. Continue current regimen. Coding Level of Care Code Est Pt Level 3 (18122) Diagnoses Asthma J45.909
--- OUTSIDE RECORDS SUMMARY | 2024-05-17 16:25 | XMS_ITS ---
Author Organization [facility] Address [address] [place] [address] Care Team Providers Care Stock Plan Administrator Name Role Phone Eddie Messina MD Primary Care Provider Janey Fontenot [phone] REASON FOR VISIT Mailed ppwk Encounters Encounter Location Date Provider Diagnosis [address] [address] 05/10/2024 Janey Allen Plan Of Treatment Next Appt Details Provider Name:Janey lu, 07/22/2024 10:30:00 AM, [address] [place], [address], Progress Notes * Aroldo HARTMANClaudiaOB: [birth year] (73 yo F)Acc No.[id number]:05/10/2024 Patient:?Al HARTMAN :1950???Age:73 Y???Sex:Female Address:[address] [place] [address], [address] * true * Date:? Generated for Printi frida/Margot/eTransmitting on:?05/17/2024 04:25 PM EDT
--- OUTSIDE RECORDS SUMMARY | 2024-05-17 16:25 | XMS_ITS | Clinical Summary ---
Author Organization [facility] Address [address] [place] [address] Care Team Providers Care Floral Arranger Name Role Phone Eddie Messina MD Primary Care Provider [phone] Allergies No known active allergies Medications albuterol [...] PPSV23 or PCV20) 05/31/2016 06/01/2015 Influenza Vaccine (Season Ended) 2024 10/26/2018, 10/26/2018 Hepatitis B Vaccine Aged Out No longe r eligible based on patient's age to complete this topic Insurance [facility] Care Teams Floral Arranger Relationship Specialty Start Date End Date Eddie Messina MD [facility] NELA HYDROGRAPHER [address] [place] [address] [place] PCP - General Internal Medicine 05/11/20
--- OUTSIDE RECORDS SUMMARY | 2024-05-17 16:26 | XMS_ITS ---
Author Organization [facility] Address [address] [place] [address] Care Team Providers Care Miller Kiln Dried Salt Name Role Phone Eddie Messina MD Primary Care Provider Janey Fontenot Unavailable [phone] REASON FOR VISIT No PW Encounters Encounter Location Date Provider Diagnosis [address] [address] 05/17/2024 Janey Allen Plan Of Treatment Next Appt Details Provider Name:Janey lu, 07/22/2024 10:30:00 AM, [address] [place], [address], Progress Notes * Maggie HARTMANOB: [birth year] (73 yo F)Acc No.[id number]:05/17/2024 Progress Notes Patient:Al SEGAL Provider:?Janey Allen DPM :1950???Age:73 Y???Sex:Female D ate:05/17/2024 Address:[address] [place], [place] [id number] Pcp:Eddie Messina MD Subjective: * Chief Complaints: * ???1. No PW. * Medical History:? Objective: * Vitals:? Assessment: Plan: * Treatment: * Images: * The named appointment provid er may or may not be the originator of this progress note, and it is not deemed complete until electronically signed by the appointment provider. Sign off status: Pending * Provider:?Janey Allen DPM Date:?09/2024 Generated for Printi ng/Faxing/eTransmitting on:?05/17/2024 04:25 PM EDT
--- OUTSIDE RECORDS SUMMARY | 2024-05-17 16:26 | XMS_ITS ---
Author Organization [facility] Address [address] [place] [address] Care Team Providers Care Cashier General Name Role Phone Eddie Messina MD Primary Care Provider Janey Fontenot [phone] REASON FOR VISIT USER SUPPORT SPECIALIST Encounters Encounter Location Date Provider Diagnosis [address] [address] 03/08/2024 Janey Allen Plan Of Treatment Next Appt Details Provider Name:Janey lu, 07/22/2024 10:30:00 AM, [address] [place], [address], Progress Notes * Aroldo HARTMANClaudiaOB: [birth year] (73 yo F)Acc No.[id number]:03/08/2024 Patient:?Al HARTMAN :1950???Age:73 Y???Sex:Female Address:[address] [place] [address], [address] * true * Date:? Generated for Printi frida/Margot/eTransmitting on:?05/17/2024 04:26 PM EDT
--- OUTSIDE RECORDS SUMMARY | 2024-05-17 16:26 | XMS_ITS | Data Portability ---
Author Organization [facility], [address] Address [address] [place] [address] Care Team Providers Care Oven Laborer Name Role Phone TRINITYPARAMJIT Garcia Primary Care Provider Assessment No assessment recorded. Plan of Treatment Reminders Order Date Submit Date Provider Last Modified By Organization Details Last Modified Time Details Appointments None recorded. Lab rapid SARS CoV 2 Ag, QL IA, respiratory specimen 2022 023 [facility], [address] [place] [address], [address], 3 10:28:00 Referral None recorded. Procedures None recorded. Surgeries None recorded. Imaging None recorded. Medication Orders Allergy Relief (fluticason e) 50 mcg/actuati on nasal spray,suspe nsion 2022 023 [id number], [address] [place], [address], 3 10:29:44 benzonatate 200 mg capsule 2022 023 [facility], [address] [place], [address], 3 10:29:43 prednisone 20 mg tablet 2022 023 [facility], [address] [place], [address], 3 10:29:44 prednisone 20 mg tablet 2022 023 [facility], [address] [place] [address], [address], 09:56:02 Patient TargetsNo targets recorded. Patient Instructions Encounter Date Encounter Id Patient Instructions Last Modified By Organization Details Last Modified Time 02/15/2022 [id number] As discussed in office cause of your [...] you today and thank you for choosing [facility] for your healthcare needs! Use your ALBUTEROL [...] [email or web address] Not available 02/15/2022 10:27:06 03/01/2022 [id number] cough: care instructions Not available 03/01/2022 10:28:00 [...] wear a mask. For travel guidance, see [facility]? s Travel webpage. Do not [...] masking (see below). For travel guidance, see [facility]? s Travel webpage. Not available 03/01/2022 10:29:30 Reason for Referral None Reported. Results Created Date Observation Date Name Description Value Unit Range Abnormal Flag Note LastModifiedBy Organization Detail LastModifiedTime 03/01/1903/01/2022 rapid SARS CoV 2 Ag, QL IA, respi rator y speci men Unknown Analyte Normal =Negat aki Not Available [address] [place], [address], 03/01/2022 09:52:23 03/01/19 23 03/01/2022 rapid SARS CoV 2 Ag, QL IA, respi rator y speci men Unknown Analyte negati ve Not Available [address] [address] [facility], [place], [address], 03/01/2022 09:52:23 Result Notes None recorded. Problems Name Problem SNOMED Code Status Onset Date Resolution Date Notes Provider Name and Address Organization Details Recorded Time Asthma 763014262 Active 2022 ADRIEN LUPICA null, PA - [facility] 3 09:26:28 Hypertensive disorder 02211918 Active 2022 ADRIEN LUPICA null, PA - [facility] 3 09:26:43 Gastroesophage al reflux disease 214805909 Active 2022 ADRIEN LUPICA null, PA - [facility] 3 09:26:56 Arthritis 7751203 Active 2022 ADRIEN LUPICA null, PA - [facility] 3 09:27:07 Depressive disorder 97423532 Active 2022 ADRIEN LUPICA null, PA - [facility] 3 09:27:13 Urinary incontinence 045286741 Active 2022 ADRIEN LUPICA null, PA - [facility] 3 09:27:23 Atrial fibrillation 89572535 Active 2022 ADRIEN LUPICA null, PA - [...] Updated DateTime 3 157.48 cm 24.7 kg/m2 53733.9 7 g 97.1 [degF] 16 /min 100 [...] % 63 /min 16 /min 24.7 kg/m2 84578.9 7 g 162 mm[Hg] 81 mm[Hg] ADRIEN BG PA - [facility] 3 09:54:56 Social History Question Answer Notes LastModified by Favor ion Details LastModified Time Tobacco Smoking Status Former Smoker ADRIEN woodall PA - [facility] 02/15/2022 09:29:00 What Is Your Level Of Alcohol Consumption? None [email or web address] Information not available 02/15/2022 Do You Use Any Illicit Or Recreational Drugs? No Information not available 02/15/2022 Have You Recently Traveled Abroad? No [email or web address] Information not available 02/15/2022 Do You Or Have You Ever Used Any Other Forms Of Tobacco Or Nicotine? No [email or web address] Information not available 02/15/2022 Sex: Unknown Functional Status None recorded. Mental Status None recorded. Family History Relationship Description Onset Age of this Age Resolved Age Notes LastModified by Organization Details LastModified Time Father Asthma [email or web address] Not available 02/15/2022 09:28:09 Daughter Asthma x2 daught ers [email or web address] Not available 02/15/2022 09:28:09 Medical History No medical history recorded. Gynecological HistoryNo gynecological history recorded. Obstetrics History GPAL:G 0 P 0 0 0 0 Past Encounters Encounter ID Performer Location Encounter Start Date Encounter Closed Date Diagnosis/Indication Diagnosis SNOMED-CT Code Diagnosis ICD10 Code Diagnosis Note [id number] [address] [facility] [place] [address] 03/25/2019 17:45:10 03/25/2019 18:08:13 [id number] [address] [facility] [place] [address] 05/27/2018 18:40:43 05/27/2018 19:22:07 [id number] [address] [facility] [place] [address] 02/27/2019 14:56:29 02/27/2019 15:42:02 [id number] [address] [facility] [place] [address] 10/30/2017 19:21:18 10/30/2017 19:55:57 [id number] [address] [facility] [place] [address] 10/02/2018 18:49:34 10/02/2018 19:27:17 [id number] [address] [facility] [place] [address] 12/14/2020 18:12:30 12/14/2020 19:34:48 [id number] [address] [facility] [place] [address] 11/09/2018 19:59:54 11/09/2018 20:41:23 [id number] [address] [facility] [place] [address] 10/06/2021 13:31:31 10/06/2021 14:40:09 [id number] [address] [facility] [place] [address] 03/20/2017 19:22:24 03/20/2017 19:56:42 [id number] [address] [facility] [place] [address] 03/12/2017 17:09:00 03/12/2017 18:31:15 [id number] [address] [facility] [place] [address] 11/22/2017 13:22:24 11/22/2017 14:43:05 [id number] [address] [place] [address] 01/02/2018 18:21:27 01/02/2018 19:54:08 [id number] [address] [place] [address] [place] [address] 02/15/2017 17:19:32 02/15/2017 18:04:10 [id number] [address] [place] [address] [place] [address] 01/23/2018 18:56:39 01/23/2018 19:33:12 [id number] [address] [place] [address] [place] [address] 07/03/2017 14:51:55 07/03/2017 15:50:48 [id number] ANIYA RAZO [address] [facility] [place] [address] 02/15/2022 09:04:52 02/15/2022 10:31:22 Exacerbation of intermittent asthma 032628975 J45.21 Follow up with your pulmonolog ist as scheduled at the end of this month. [id number] Brady Villarreal NP [address] [place] [address] 03/01/2022 08:38:51 03/01/2022 10:36:25 Exposure to SARS-CoV-2 550667059 Z20.822 Acute bronchitis 5473930 2 J20.9 Health Concerns Section Related Observation LastModified by Organization Detai ls LastModified Time None Recorded Concern Status LastModified by Organization Details LastModified Time None Recorded Advance Directives Directive None Recorded Payers Encounter Date Sequence Insurance Name Policy Number Policy Hay Covered Member ID Hay Member ID Guarantor Name 02/15/2022 1 [employer] (MEDICARE REPLACEMENT PPO) [id number] Shilpa Hartman [id number] Shilpa Hartman 03/01/2022 1 [employer] (MEDICARE REPLACEMENT PPO) [id number] Shilpa Hartman [id number] Shilpa Hartman Notes Date Note Type Note [...] asking for same. Has apt with her user support specialist in a couple weeks for f/u. Denies SOB. Had wheezing this morning which resolved. Notes wheezing seems to be worse in the mornings, and relates this to post nasal drip. No LE edema. ANIYA ARCEO JD [address] [place], [address], [place] - [facility] 02/15/2022 10:31:07 03/01/2022 text/html CongestionReport ed bypatient.Notes:follow up for chest congestion, nasal congestion with post nasal drip x 3 days. denies any fever or fever with chills. no SOB or respiratory distress. Brady Villarreal NP [address] [place], [address], [place] - [facility] 03/01/2022 10:30:08 OBGyn Episode No OBEpisode recorded.
--- OUTSIDE RECORDS SUMMARY | 2024-05-17 16:26 | XMS_ITS | Patient Health Record ---
Author Organization [facility] Address [address] [place] [address] Care Team Providers Care Property Disposal Officer Name Role Phone Edide Messina MD Primary Care Provider Janey Fontenot Unavailable [phone] Reason For Referral No Information Encounters Encounter Location Date Provider Diagnosis [facility] [place] [address] [place] [address] 03/08/2024 Janey Allen [facility] [address] [place] [address] 05/10/2024 Janey Allen Plan Of Treatment Next Appt Details Provider Name:Janey lu, 07/22/2024 10:30:00 AM, [address] [place], [address], Insurance Providers Payer Name Payer Address Payer Phone Subscriber Number Group Number Insured Name Patient Relationship to Insured Coverage Start Date Coverage End Date Medicare [facility] [address] [facility] [place] [id number] Devan Al Self - patient is the insured [employer] [address] [place] [address] [id number] Shilpa HartmanMarie Self - patient is the insured
== END 2024-05-17 13:53 | disposition home or self-care (01) ==
LOC: HO.HPS 13:30
PROVIDERS: PCP Internal Medicine; Visit Provider Internal Medicine Pulmonary Disease
DX: J45.909 Unspecified asthma, uncomplicated (principal)
CPT/HCPCS: 99213

== ENCOUNTER → 2024-05-17 13:29 | Outpatient (BNVA) | payer MEDICARE, SELFPAY ==
[2023-09-24 15:56] VITALS: BMI 25.2
== END ==
PROVIDERS: PCP Internal Medicine; Visit Provider Internal Medicine Pulmonary Disease
DX: J45.909 Unspecified asthma, uncomplicated (principal)
CPT/HCPCS: 99212

== ENCOUNTER 2024-06-18 09:08 | Outpatient (AMB) | payer MEDICARE, SELFPAY ==
[2023-09-24 15:56] VITALS: BMI 25.2
--- OUTSIDE RECORDS SUMMARY | 2024-06-18 09:10 | XMS_ITS ---
Author Organization [facility] Address [address] [place] [address] Care Team Providers Care Reject Opener And Filler Name Role Phone Eddie Messina MD Primary Care Provider Janey Fontenot [phone] REASON FOR VISIT Mailed ppwk Encounters Encounter Location Date Provider Diagnosis [address] [address] 05/10/2024 Janey Allen Plan Of Treatment Next Appt Details Provider Name:Janey lu, 07/22/2024 10:30:00 AM, [address] [place], [address], Progress Notes * CORAZONShilpaRamilaOB: [birth year] (73 yo F)Acc No.[id number]:05/10/2024 Patient:?Al HARTMAN :1950???Age:73 Y???Sex:Female Address:[address] [place] [address], [address] * true * Date:? Generated for Printi frida/Margot/eTransmitting on:?06/18/2024 09:10 AM EDT
--- OUTSIDE RECORDS SUMMARY | 2024-06-18 09:10 | XMS_ITS | Clinical Summary ---
Author Organization Unknown Care Team Providers Care Gummed Tape Press Operator Name Role Phone SARAH PASCUAL, PARAMJIT Unavailable Unavailable PARMINDER TIMBER BUCKER, SY Unavailable Unavailab latisha ALFREDO PT, FERMIN Unavailable Unavailable Payers Payer Name Policy Type Policy Number Effective Date Expira tion Date [employer] MEDICARE ADVANTAGE FFS - ORDER DRIVEN [id number] [place]ICARE - [place] - [facility] [id number] Problems Condition Name Condition Details Condition Category Status Onset Date Resolution Date Last Treatment Date Treating Clinician Comments CORONAVIRUS INFECTION, UNSPECIFIED Active 02-09 00:00: 00 PAROXYSMAL ATRIAL FIBRILLATION [...] IS, LEFT KNEE Active 02-09 00:00: 00 UNSPECIFIED ASTHMA WITH (ACUTE) EXACERBATION Active 02-09 00:00: 00 HYPERCALCEMI A Active 02-09 00:00: 00 NONRHEUMATIC AORTIC (VALVE) STENOSIS Active 02-09 00:00: 00 PURE HYPERCHOLEST EROLEMIA, UNSPECIFIED Active 02-09 00:00: 00 GASTRO-ESOPH AGEAL REFLUX DISEASE WITHOUT ESOPHAGITIS Active 02-09 00:00: 00 INSOMNIA, UNSPECIFIED Active 02-09 00:00: 00 ANXIETY DISORDER, UNSPECIFIED Active 02-09 00:00: 00 Problems related to health literacy Active 02-09 00:00: 00 TRANSPORTATI ON INSECURITY Active 02-09 00:00: 00 [facility] (CURRENT) USE OF ASPIRIN Active 02-09 00:00: 00 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 (CURRENT) USE OF ANTITHROMBOT ICS/ANTIPLAT ELETS Active 02-09 00:00: 00 [facility] (CURRENT) USE OF INHALED STEROIDS Active 02-09 [...] tablet,veto yed release 02-15 00:00: 00 Yes [id number] 1 tablet DAILY 1 tablet DAILY (route: oral) Med Classific ation: Gastroint estinal Therapy Agents spironolact one 25 mg tablet 02-15 00:00: 00 Yes [id number] 1 tablet DAILY 1 tablet DAILY (route: oral) Med Classific ation: Cardiovas cular Therapy Agents theophyllin e ER 400 mg tablet,exte nded release 24 hr 2023-02 00:00: 00 Yes [id number] 1 tablet DAILY 1 tablet DAILY (route: oral) Med Classific ation: Respirato ry Therapy Agents Trelegy Ellipta 200 mcg-62.5 mcg-25 mcg powder for inhalation 2023-02 00:00: 00 Yes [id number] 1 inhalat ion DAILY 1 inhalation DAILY (route: inhalation ) Med Classific ation: Respirato ry Therapy Agents albuterol sulfate HFA 90 mcg/actuati on aerosol inhaler 2023-02 00:00: 00 Yes [id number] Per instruc tions DIRECTED Per instructio ns DIRECTED (route: inhalation ) Med Classific ation: Respirato ry Therapy Agents amiodarone 200 mg tablet 2023-02 2-09 00:00: 00 Yes [id number] 1 tablet DAILY 1 tablet DAILY (route: oral) Med Classific ation: Cardiovas cular Therapy Agents aspirin 81 mg tablet,veto yed release 2023-02 0-31 00:00: 00 Yes [id number] 1 tablet DAILY 1 tablet DAILY (route: oral) Med Classific ation: Hematolog ical Agents clopidogrel 75 mg tablet 2023-02 2- 00:00: 00 Yes [id number] 1 tablet DAILY 1 tablet DAILY (route: oral) Med Classific ation: Hematolog ical Agents ipratropium 0.5 mg-albutero l 3 mg (2.5 mg base)/3 mL nebulizatio n soln 2023-02 2-16 00:00: 00 Yes [id number] Per instruc tions DIRECTED Per instructio ns DIRECTED (route: inhalation ) Med Classific ation: Respirato ry Therapy Agents Lamictal 100 mg tablet 2023-02 2- 00:00: 00 Yes [id number] 1 tablet EVERY AM 1 tablet EVERY AM (route: oral) Med Classific ation: Central Nervous System Agents Lamictal 200 mg tablet 2023-02 2- 00:00: 00 Yes [id number] 1 tablet DAILY 1 tablet DAILY (route: oral) Med Classific ation: Central Nervous System Agents loratadine 10 mg capsule 2023-02 2- 00:00: 00 Yes [id number] 1 capsule DAILY 1 capsule DAILY (route: oral) Med Classific ation: Respirato ry Therapy Agents losartan 50 mg tablet 2023-02 2- 00:00: 00 Yes [id number] 1 tablet DAILY 1 tablet DAILY (route: oral) Med Classific ation: Cardiovas cular Therapy Agents oxybutynin chloride ER 10 mg tablet,exte nded release 24 hr 2023-02 1-04 00:00: 00 Yes [id number] 1 tablet EVERY AM 1 tablet EVERY AM (route: oral) Med Classific ation: Genitouri nary Therapy tretinoin 0.025 % topical cream 2023-02 00:00: 00 Yes [id number] Per instruc tions DAILY Per instructio ns DAILY (route: topical) Med Classific ation: Dermatolo gical Wellbutrin SR 200 mg tablet, 12 hr sustained-r elease 2023-02 00:00: 00 Yes [id number] 1 tablet 2 TIMES DAILY 1 tablet 2 TIMES DAILY (route: oral) Med Classific ation: Central Nervous System Agents azithromyci n 250 mg tablet 03-13 00:00: 00 03-17 23:59 :00 No [id number] Per instruc tions DIRECTED Per instructio ns DIRECTED (route: oral) Med Classific ation: Anti-Infe ctive Agents prednisone 10 mg tablet 03-12 00:00: 00 03-25 23:59 :00 No [id number] Per instruc tions DIRECTED Per instructio ns DIRECTED (route: oral) Med Classific ation: Endocrine levofloxaci n 500 mg tablet 04-23 00:00: 00 04-28 23:59 :00 No [id number] 1 tablet DAILY 1 tablet DAILY (route: oral) Med Classific ation: Anti-Infe ctive Agents Vital Signs Vital Name Observation Time Observation Value Commen ts Temperature 2024-06-09 12:01:00.000 97.4 [degF] Temperature 2024-05-30 11:22:00.000 98.5 [degF] Temperature 2024-05-25 10:44:00.000 98.7 [degF] Temperature 2024-05-16 10:26:00.000 98.5 [degF] Temperature 2024-05-09 10:11:00.000 97.8 [degF] Temperature 2024-05-06 09:28:00.000 97.7 [degF] Temperature 2024-04-28 13:24:00.000 98.5 [degF] Pulse 2024-06-09 12:01:00.000 94 /min Pulse 2024-05-30 11:22:00.000 70 /min Pulse 2024-05-25 10:44:00.000 88 /min Pulse 2024-05-16 10:26:00.000 78 /min Pulse 2024-05-09 10:11:00.000 81 /min Pulse 2024-05-06 09:28:00.000 70 /min Pulse 2024-04-28 13:24:00.000 74 /min O2 Saturation (%) 2024-06-09 12:01:00.000 98 % O2 Saturation (%) 2024-05-30 11:22:00.000 96 % O2 Saturation (%) 2024-05-25 10:44:00.000 100 % O2 Saturation (%) 2024-05-16 10:26:00.000 98 % O2 Saturation (%) 2024-05-09 10:11:00.000 100 % O2 Saturation (%) 2024-05-06 09:56:00.000 100 % O2 Saturation (%) 2024-05-06 09:28:00.000 99 % O2 Saturation (%) 2024-04-28 13:24:00.000 98 % Respirations 2024-06-09 12:01:00.000 18 /min Respirations 2024-05-30 11:22:00.000 18 /min Respirations 2024-05-25 10:44:00.000 18 /min Respirations 2024-05-16 10:26:00.000 16 /min Respirations 2024-05-09 10:11:00.000 18 /min Respirations 2024-05-06 09:28:00.000 18 /min Respirations 2024-04-28 13:24:00.000 18 /min Weight (lbs) 2024-06-09 12:04:00.000 125 [lb_av] Weight (lbs) 2024-05-30 11:28:00.000 133 [lb_av] Weight (lbs) 2024-05-25 10:47:00.000 130 [lb_av] Systolic Blood Pressure 2024-06-09 12:01:00.000 132 mm [Hg] Systolic Blood Pressure 2024-05-30 11:22:00.000 119 mm [Hg] Systolic Blood Pressure 2024-05-25 10:44:00.000 123 mm [Hg] Systolic Blood Pressure 2024-05-16 10:26:00.000 116 mm [Hg] Systolic Blood Pressure 2024-05-09 10:11:00.000 129 mm [Hg] Systolic Blood Pressure 2024-05-06 09:28:00.000 140 mm [Hg] Systolic Blood Pressure 2024-04-28 13:24:00.000 120 mm [Hg] Diastolic Blood Pressure 2024-06-09 12:01:00.000 80 mm [Hg] Diastolic Blood Pressure 2024-05-30 11:22:00.000 60 mm [Hg] Diastolic Blood Pressure 2024-05-25 10:44:00.000 99 mm [Hg] Diastolic Blood Pressure 2024-05-16 10:26:00.000 74 mm [Hg] Diastolic Blood Pressure 2024-05-09 10:11:00.000 99 mm [Hg] Diastolic Blood Pressure 2024-05-06 09:28:00.000 99 mm [Hg] Diastolic Blood Pressure 2024-04-28 13:24:00.000 90 mm [Hg] Plan of Treatment Planned Activity Planned Date Details Comments Future Scheduled Test PHYSICAL T HERAPIST TO EVALUATE PATIENT SECONDARY TO FUNCTIONAL DEFICITS/SAFETY CONCERNS. [code = PHYSICAL THERAPIST TO EVALUATE PATIENT SECONDARY TO FUNCTIONAL DEFICITS/SAFETY CONCERNS.] Future Scheduled Test SUMMARY OF THERAPY EVAL/ASSESSMENT FINDINGS AND REASON(S) SKILLS OF A THERAPIST ARE INDICATED: 04/22 RECERTIFICATION VISIT: PATIENT IS A 73-YEAR-OLD FEMALE WITH HISTORY OF AFIB STATUS POST CARDIOVERSION X2 CURRENTLY ON AMIODARONE STATUS POST WATCHMAN PROCEDURE, HEART FAILURE WITH REDUCED EJECTION FRACTION, AORTIC STENOSIS, TRICUSPID VALVE REGURGITATION, LUNG NODULES, HYPERTENSION, HYPERLIPIDEMIA, ASTHMA, ANEMIA, GERD, HIATAL HERNIA, BIPOLAR DISORDER, DEPRESSION, RESUMPTION OF CARE PERFORMED ON 03/15 FOLLOWING INPATIENT ADMISSION FOR ASTHMA EXACERBATION IN SETTING OF COVID-19 INFECTION. PATIENT SEEN FOR RECERTIFICATION VISIT FOR CONTINUATION OF HOME PT SERVICES IN ORDER FOR PATIENT TO MEET SOME MOBILITY GOALS IN PT PLAN OF CARE. PATIENT HAS BEEN INTERMITTENTLY COMPLIANT WITH HEP AND THERAPY RECOMMENDATIONS THROUGHOUT EPISODE OF CARE, PATIENT REPORTS THAT DUE TO NOT FEELING WELL AND EXTENSIVE APPOINTMENTS PATIENT HAS HAD DIFFICULTY WITH COMPLIANCE TO HEP. PATIENT REPORTS THAT SHE HAS BEEN FEELING SIGNIFICANTLY BETTER OVER THIS LAST WEEK, MEDICATIONS RECONCILED WITHOUT ISSUES AND PATIENT HAS STARTED LEVOFLOXACIN AND REPORTS FEELING BETTER SINCE THEN. EDUCATED PATIENT ON IMPORTANCE TO COMPLIANCE WITH MEDICATION REGIMEN AND FINISHING ANTIBIOTICS AND PATIENT VERBALIZED UNDERSTANDING. PATIENT IS IMPULSIVE AND DEMONSTRATES POOR SAFETY AWARENESS, CONSISTENTLY RUSHING AND MOVING QUICKLY/UNEXPECTEDLY WITH CERTAIN DIRECTION CHANGES AND HAVING SEVERAL EPISODES OF NEAR LOSS OF BALANCE THROUGHOUT VISIT TODAY, EDUCATED PATIENT ON IMPORTANCE OF INCREASING SAFETY AWARENESS/ATTENTIVENESS TO ENVIRONMENTAL SURROUNDINGS IN ORDER TO DECREASE RISK OF FALLS PARTICULARLY PATIENT DOES NOT CONSISTENTLY UTILIZED STRAIGHT CANE OR OTHER ASSISTIVE DEVICES. EDUCATED PATIENT ON IMPORTANCE OF CONSISTENT ASSISTIVE DEVICE USE IN ORDER TO DECREASE RISK OF FALLS AND PATIENT VERBALIZED UNDERSTANDING VIA TEACH BACK METHOD. PATIENT HAS DEMONSTRATED SLOW/GRADUAL PROGRESS TOWARDS MOBILITY GOALS IN PT PLAN OF CARE, SHE HAS ACHIEVED SHORT TERM GOALS AND LONG-TERM GOAL FOR 30 SECOND [id number]-[id number] WHICH IS NOW WITHIN NORMAL LIMITS FOR WOMEN IN HER AGE GROUP WHICH IS INDICATIVE OF IMPROVED LOWER EXTREMITY STRENGTH AND ABILITY TO TRANSFER WITH INCREASED INDEPENDENCE. PATIENT HAS SHOWN GRADUAL PROGRESS TOWARDS IMPROVING HER STANDING BALANCE EVIDENCED BY TINETTI SCORE IMPROVEMENT INCREASED TO 19, ANTICIPATE WITH CONTINUED HOME PT SERVICES THE PATIENT WILL BE ABLE TO IMPROVE TO NO LENORA [code = SUMMARY OF THERAPY EVAL/ASSESSMENT FINDINGS AND REASON(S) SKILLS OF A THERAPIST ARE INDICATED: 04/22 RECERTIFICATION VISIT: PATIENT IS A 73-YEAR-OLD FEMALE WITH HISTORY OF AFIB STATUS POST CARDIOVERSION X2 CURRENTLY ON AMIODARONE STATUS POST WATCHMAN PROCEDURE, HEART FAILURE WITH REDUCED EJECTION FRACTION, AORTIC STENOSIS, TRICUSPID VALVE REGURGITATION, LUNG NODULES, HYPERTENSION, HYPERLIPIDEMIA, ASTHMA, ANEMIA, GERD, HIATAL HERNIA, BIPOLAR DISORDER, DEPRESSION, RESUMPTION OF CARE PERFORMED ON 03/15 FOLLOWING INPATIENT ADMISSION FOR ASTHMA EXACERBATION IN SETTING OF COVID-19 INFECTION. PATIENT SEEN FOR RECERTIFICATION VISIT FOR CONTINUATION OF HOME PT SERVICES IN ORDER FOR PATIENT TO MEET SOME MOBILITY GOALS IN PT PLAN OF CARE. PATIENT HAS BEEN INTERMITTENTLY COMPLIANT WITH HEP AND THERAPY RECOMMENDATIONS THROUGHOUT EPISODE OF CARE, PATIENT REPORTS THAT DUE TO NOT FEELING WELL AND EXTENSIVE APPOINTMENTS PATIENT HAS HAD DIFFICULTY WITH COMPLIANCE TO HEP. PATIENT REPORTS THAT SHE HAS BEEN FEELING SIGNIFICANTLY BETTER OVER THIS LAST WEEK, MEDICATIONS RECONCILED WITHOUT ISSUES AND PATIENT HAS STARTED LEVOFLOXACIN AND REPORTS FEELING BETTER SINCE THEN. EDUCATED PATIENT ON IMPORTANCE TO COMPLIANCE WITH MEDICATION REGIMEN AND FINISHING ANTIBIOTICS AND PATIENT VERBALIZED UNDERSTANDING. PATIENT IS IMPULSIVE AND DEMONSTRATES POOR SAFETY AWARENESS, CONSISTENTLY RUSHING AND MOVING QUICKLY/UNEXPECTEDLY WITH CERTAIN DIRECTION CHANGES AND HAVING SEVERAL EPISODES OF NEAR LOSS OF BALANCE THROUGHOUT VISIT TODAY, EDUCATED PATIENT ON IMPORTANCE OF INCREASING SAFETY AWARENESS/ATTENTIVENESS TO ENVIRONMENTAL SURROUNDINGS IN ORDER TO DECREASE RISK OF FALLS PARTICULARLY PATIENT DOES NOT CONSISTENTLY UTILIZED STRAIGHT CANE OR OTHER ASSISTIVE DEVICES. EDUCATED PATIENT ON IMPORTANCE OF CONSISTENT ASSISTIVE DEVICE USE IN ORDER TO DECREASE RISK OF FALLS AND PATIENT VERBALIZED UNDERSTANDING VIA TEACH BACK METHOD. PATIENT HAS DEMONSTRATED SLOW/GRADUAL PROGRESS TOWARDS MOBILITY GOALS IN PT PLAN OF CARE, SHE HAS ACHIEVED SHORT TERM GOALS AND LONG-TERM GOAL FOR 30 SECOND [id number] WHICH IS NOW WITHIN NORMAL LIMITS FOR WOMEN IN HER AGE GROUP WHICH IS INDICATIVE OF IMPROVED LOWER EXTREMITY STRENGTH AND ABILITY TO TRANSFER WITH INCREASED INDEPENDENCE. PATIENT HAS SHOWN GRADUAL PROGRESS TOWARDS IMPROVING HER STANDING BALANCE EVIDENCED BY TINETTI SCORE IMPROVEMENT 18/30 INCREASED TO 19/30, ANTICIPATE WITH CONTINUED HOME PT SERVICES THE PATIENT WILL BE ABLE TO IMPROVE TO NO LENORA] Future Scheduled Test PHYSICAL T HERAPIST TO ASSESS BEST PRACTICE INTERVENTIONS TO ASSIST PATIENTS TO IMPROVE OR STABILIZE MEDICAL STATUS AND PREVENT RE-HOSPITALIZATION. MEASURES INCLUDING REVIEW AND IDENTIFICATION OF CONCERNS FOR THE FOLLOWING AREAS: ENVIRONMENTAL/ BEHAVIORAL SAFETY ISSUES AND FALLS, AND DISEASE MANAGEMENT. [code = PHYSICAL THERAPIST TO ASSESS BEST PRACTICE INTERVENTIONS TO ASSIST PATIENTS TO IMPROVE OR STABILIZE MEDICAL STATUS AND PREVENT RE-HOSPITALIZATION. MEASURES INCLUDING REVIEW AND IDENTIFICATION OF CONCERNS FOR THE FOLLOWING AREAS: ENVIRONMENTAL/ BEHAVIORAL SAFETY ISSUES AND FALLS, AND DISEASE MANAGEMENT.] Future Scheduled Test PHYSICAL T HERAPY FOR [...] ON FALL PREVENTION STRATEGIES.] Future Scheduled Test PHYSICAL T HERAPY TO INSTRUCT PATIENT/CAREGIVER ON BALANCE AND BALANCE STRATEGIES TO IMPROVE SAFE MOBILITY AND REDUCE RISK FOR FALL AND INJURY [code = PHYSICAL THERAPY TO INSTRUCT PATIENT/CAREGIVER ON BALANCE AND BALANCE STRATEGIES TO IMPROVE SAFE MOBILITY AND REDUCE RISK FOR FALL AND INJURY] Goal 2024-03-15 Patient Goal - T O GET TO NORMAL OR CLOSE POSSIBLE Goal Patient Goal - T O GET TO NORMAL OR CLOSE POSSIBLE Goal 2024-04-22 Patient Goal - T O GET TO [...] AND FALL PREVENTION. Goal Provider Goal - PATIENT/CAREGIVER WILL DEMONSTRATE IMPROVED BALANCE AND REDUCE THE RISK OF FALLS AND INJURY. Encounters Start Date/Time End Date/Time Encounter Type Admission Type Attending [facility] Care Department Encounter ID Discharge Date Discharge Status Discharge Condition Discharge Reason Percent Goals Met 2024-04-23 00:00:00 2024-06-21 00:00:00 Outpatient RECERTIFIC FERMIN OKEEFE [facility] [id number] 44.44
--- OUTSIDE RECORDS SUMMARY | 2024-06-18 09:10 | XMS_ITS | Data Portability ---
Author Organization ANIYA Horton s, [address] Address [address] [place] [address] Care Team Providers Care Information Services Manager Name Role Phone TRINITYPARAMJIT Garcia Primary Care Provider Assessment No assessment recorded. Plan of Treatment Reminders Order Date Submit Date Provider Last Modified By Organization Details Last Modified Time Details Appointments None recorded. Lab rapid SARS CoV 2 Ag, QL IA, respiratory specimen [address] [facility], [address] [place] [address], [phone], 3 10:28:00 Referral None recorded. Procedures None recorded. Surgeries None recorded. Imaging None recorded. Medication Orders Allergy Relief (fluticason e) 50 mcg/actuati on nasal spray,suspe nsion 2022 023 [id number], [address] [place], [address], 3 10:29:44 benzonatate 200 mg capsule 2022 023 [id number], [address] [place], [address], 3 10:29:43 prednisone 20 mg tablet 2022 023 [id number], [address] [place], [address], 3 10:29:44 prednisone 20 mg tablet 2022 023 [id number], [address] [place] [address], [address], 09:56:02 Patient TargetsNo targets recorded. Patient Instructions Encounter Date Encounter Id Patient Instructions Last Modified By Organization Details Last Modified Time 02/15/2022 [id number] As discussed in office cause of your [...] you today and thank you for choosing [facility] for your healthcare needs! Use your ALBUTEROL [...] [email or web address] Not available 02/15/2022 10:27:06 03/01/2022 [id number] cough: care instructions Not available 03/01/2022 10:28:00 [...] wear a mask. For travel guidance, see [facility]? s Travel webpage. Do not travel. [...] masking (see below). For travel guidance, see [facility]? s Travel webpage. Not available 03/01/2022 10:29:30 Reason for Referral None Reported. Results Created Date Observation Date Name Description Value Unit Range Abnormal Flag Note LastModifiedBy Organization Detail LastModifiedTime 03/01/1903/01/2022 rapid SARS CoV 2 Ag, QL IA, respi rator y speci men Unknown Analyte Normal =Negat aki Not Available [address] [place], [address], 03/01/2022 09:52:23 03/01/19 23 03/01/2022 rapid SARS CoV 2 Ag, QL IA, respi rator y speci men Unknown Analyte negati ve Not Available [address] [address] [facility], [place], [address], 03/01/2022 09:52:23 Result Notes None recorded. Problems Name Problem SNOMED Code Status Onset Date Resolution Date Notes Provider Name and Address Organization Details Recorded Time Asthma 863582230 Active 2022 ADRIEN LUPICA null, PA - [facility] 3 09:26:28 Hypertensive disorder 55492294 Active 2022 ADRIEN LUPICA null, PA - [facility] 3 09:26:43 Gastroesophage al reflux disease 326710756 Active 2022 ADRIEN LUPICA null, PA - [facility] 3 09:26:56 Arthritis 7879756 Active 2022 ADRIEN LUPICA null, PA - [facility] 3 09:27:07 Depressive disorder 48959842 Active 2022 ADRIEN LUPICA null, PA - [facility] 3 09:27:13 Urinary incontinence 357562036 Active 2022 ADRIEN LUPICA null, PA - [facility] 3 09:27:23 Atrial fibrillation 63918479 Active 2022 ADRIEN LUPICA null, PA - [...] Updated DateTime 3 157.48 cm 24.7 kg/m2 58712.9 7 g 97.1 [degF] 16 /min 100 [...] % 63 /min 16 /min 24.7 kg/m2 98085.9 7 g 162 mm[Hg] 81 mm[Hg] ADRIEN BG PA - [facility] 3 09:54:56 Social History Question Answer Notes LastModified by [employer] ion Details LastModified Time Tobacco Smoking Status Former Smoker ADRIEN woodall PA - [facility] 02/15/2022 09:29:00 What Is Your Level Of Alcohol Consumption? None [email or web address] Information not available 02/15/2022 Do You Use Any Illicit Or Recreational Drugs? No [email or web address] Information not available 02/15/2022 Have You Recently Traveled Abroad? No [email or web address] Information not available 02/15/2022 Do You Or Have You Ever Used Any Other Forms Of Tobacco Or Nicotine? No [email or web address] Information not available 02/15/2022 Sex: Unknown Functional Status None recorded. Mental Status None recorded. Family History Relationship Description Onset Age of this Age Resolved Age Notes LastModified by Organization Details LastModified Time Father Asthma [email or web address] Not available 02/15/2022 09:28:09 Daughter Asthma x2 daught ers [email or web address] Not available 02/15/2022 09:28:09 Medical History No medical history recorded. Gynecological HistoryNo gynecological history recorded. Obstetrics History GPAL:G 0 P 0 0 0 0 Past Encounters Encounter ID Performer Location Encounter Start Date Encounter Closed Date Diagnosis/Indication Diagnosis SNOMED-CT Code Diagnosis ICD10 Code Diagnosis Note [id number] [address] [place] [address] 03/25/2019 17:45:10 03/25/2019 18:08:13 [id number] [address] [place] [address] 05/27/2018 18:40:43 05/27/2018 19:22:07 [id number] [address] [place] [address] 02/27/2019 14:56:29 02/27/2019 15:42:02 [id number] [address] [place] [address] 10/30/2017 19:21:18 10/30/2017 19:55:57 [id number] [address] [place] [address] 10/02/2018 18:49:34 10/02/2018 19:27:17 [id number] [address] [place] [address] 12/14/2020 18:12:30 12/14/2020 19:34:48 [id number] [address] [place] [address] 11/09/2018 19:59:54 11/09/2018 20:41:23 [id number] [address] [place] [address] 10/06/2021 13:31:31 10/06/2021 14:40:09 [id number] [address] [place] [address] 03/20/2017 19:22:24 03/20/2017 19:56:42 [id number] [address] [facility] [place] [address] 03/12/2017 17:09:00 03/12/2017 18:31:15 [id number] [address] [place] [address] 11/22/2017 13:22:24 11/22/2017 14:43:05 [id number] [address] [place] [address] 01/02/2018 18:21:27 01/02/2018 19:54:08 [id number] [address] [place] [address] 02/15/2017 17:19:32 02/15/2017 18:04:10 [id number] [address] [facility] [place] [address] 01/23/2018 18:56:39 01/23/2018 19:33:12 [id number] [address] [facility] [place] [address] 07/03/2017 14:51:55 07/03/2017 15:50:48 [id number] ANIYA RAZO [address] [place] [address] 02/15/2022 09:04:52 02/15/2022 10:31:22 Exacerbation of intermittent asthma 271965364 J45.21 Follow up with your pulmonolog ist as scheduled at the end of this month. [id number] Brady Villarreal NP [address] [place] [address] 03/01/2022 08:38:51 03/01/2022 10:36:25 Exposure to SARS-CoV-2 928828348 Z20.822 Acute bronchitis 8573243 2 J20.9 Health Concerns Section Related Observation LastModified by Organization Detai ls LastModified Time None Recorded Concern Status LastModified by Organization Details LastModified Time None Recorded Advance Directives Directive None Recorded Payers Insurance Date Sequence Insurance Name Policy Number Policy Hay Covered Member ID Hay Member ID Guarantor Name 03/01/2022 [facility] (MEDICARE REPLACEMENT/AD VANTAGE - PPO) Shilpa Hartman [id number] Shilpa Hartman 03/01/2022 1 [employer] (MEDICARE REPLACEMENT PPO) [id number] Shilpa Hartman [id number] Shilpa Hartman Notes Date Note Type Note [...] asking for same. 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 Denies SOB. Had wheezing this morning which resolved. Notes wheezing seems to be worse in the mornings, and relates this to post nasal drip. No LE edema. ANIYA ARCEO JD [address] [place], [address], [place] - [email or web address] 02/15/2022 10:31:07 03/01/2022 text/html CongestionReport ed bypatient.Notes:follow up for chest congestion, nasal congestion with post nasal drip x 3 days. denies any fever or fever with chills. no SOB or respiratory distress. Brady Villarreal NP [address] [place], [address], [place] - [facility] 03/01/2022 10:30:08 OBGyn Episode No OBEpisode recorded.
--- OUTSIDE RECORDS SUMMARY | 2024-06-18 09:10 | XMS_ITS ---
Author Organization [facility] Address [address] [place] [address] Care Team Providers Care Grain Operations Manager Name Role Phone Mayuri PASCUAL, Eddie Primary Care Provider Lalo Hillman [phone] REASON FOR VISIT Patient presents today for nausea, vomitting, Encounters Encounter Location Date Provider Diagnosis [facility] [address] [address] 10/14/2023 Lalo Vaughn Plan Of Treatment No Information Progress Notes * DUNIA HARTMANEDOB:1950 (73 yo F)Acc No.[id number]:10/14/2023 Progress Notes Patient:?DUNIA HARTMAN Provider:?Lalo Vaughn MD :1950???Age:72 Y???Sex:Female D ate:10/14/2023 Address:[address] [place], [place] [phone] Pcp:Eddie Messina MD Subjective: * Chief Complaints: [...] MD Date:? 024 Generated for Printi ng/Faxing/eTransmitting on:?06/18/2024 09:10 AM EDT
--- OUTSIDE RECORDS SUMMARY | 2024-06-18 09:10 | XMS_ITS | Clinical Summary ---
Author Organization [facility] Facility Address [address] [place] [address] Care Team Providers Care Sales Activity Manager Name Role Phone Eddie Messina MD Primary Care Provider [phone] Allergies No known active allergies Medications albuterol [...] Date Hypercalcemia 03/21/2020 Hypertensive disorder 03/21/2020 Immunizations Immunization Administration Dates Next Due Influenza Split High [...] Colorectal Cancer Screening: Sigmoidoscopy 11/20/1999 Pneumococcal Vaccine: 50+ Years (2 of 2 - PPSV23) 05/31/2016 06/01/2015 Influenza Vaccine (Season Ended) 2024 10/26/2018, 10/26/2018 Pneumococcal Vaccine: Peds ( 0 to 5 Years) and At-Risk Patients (6 to 49 Years) Discontinued 06/01/2015 Hepatitis B Vaccine Aged Out No longe r eligible based on patient's age to complete this topic Insurance [facility] Care Teams Sales Activity Manager Relationship Specialty Start Date End Date Eddie Messina MD [employer] [address] [place] [address] PCP - General Internal Medicine 05/11/20
--- OUTSIDE RECORDS SUMMARY | 2024-06-18 09:10 | XMS_ITS | Patient Health Record ---
Author Organization [facility] Address [address] [place] [address] Care Team Providers Care Freight Brakeman Name Role Phone Eddie Messina MD Primary Care Provider Lalo Hillman [phone] Reason For Referral No Information Medications Medication [...] Problem Status W/U Status Risk Notes Problem 680446177 Encounter for screening for malignant neoplasm of colon (Z12.11) Active confirmed Problem 163998441 History of adenomatous polyp of colon (Z86.010) Active confirmed Problem Screening for malignant neoplasm of rectum (898792640) Encounter for screening for malignant neoplasm of rectum (Z12.12) Active confirmed Problem 985754382 Gastroesophageal reflux disease with esophagitis (K21.0) Active confirmed Problem 822243441 Gastroesophageal reflux disease, esophagitis presence not specified (K21.9) Active confirmed Problem 10950013 Hiatal hernia (K44.9) Active confirmed Problem 19768565 Erosive esophagi tis (K22.10) Active confirmed Problem 20974053 Iron deficiency anemia, unspecified iron deficiency anemia type (D50.9) Active confirmed Problem 373328295 Anemia due to ot her cause, not classified (D64.89) Active confirmed Problem 69136335 Irritable bowel syndrome with both constipation and diarrhea (K58.2) Active confirmed Encounters Encounter Location Date Provider Diagnosis [facility] [address] [place] [address] 10/14/2023 Lalo Vaughn Plan Of Treatment Pending [...] Date Coverage End Date [employer] [address] [place] [address] [id number] DUNIA HARTMAN Self - patient is the insured Medical (General) History Medical History History ICD Code Tubular adenomas removed in 2004; negative colonoscopy 09/2010 and 07/2017, except for diverticulosis Denies PR,DM,CVA,Lung disease,renal dise ase Negative cardiac cath at [facility] [place] 2011 Arthritis- goes to PT left knee Depression HTN ADHD Urinary incontinence prolapse GERD--EGD in 07/2017 erosive esophagitis with moderate-sized HH---biopsies negative for Woodard's; F/U EGD in 01/2018 revealed complete healing of the esophagitis and no Woodard's prolapse uterus / urinary incontinence Surgical History Surgery Date(Month/Year) Left inguinal hernia Right bunion/hammer toe Tonsillectomy [place] [facility] [place] Hiatal [place] [facility] [place]
--- OUTSIDE RECORDS SUMMARY | 2024-06-18 09:11 | XMS_ITS | Patient Health Record ---
Author Organization [facility] Address [address] [place] [address] Care Team Providers Care Brush Maker Machine Name Role Phone Eddie Messina MD Primary Care Provider Janey Fontenot Unavailable [phone] Reason For Referral No Information Social History Tobacco Use: Social History Observation Description Date Details (start date - stop date) Former Smoker NA - NA Tobacco use other than smoking: Question Answer Notes Are you an other tobacco user? No Tobacco Control (Standard) Question Answer Notes Tobacco use: Former smoker Additional Findings: Tobacco non-user Current no nsmoker AUDIT-C (Standard) Question Answer Notes Did you have a drink containing alcohol in the p ast year? No Points 0 Interpretation Negative Encounters Encounter Location Date Provider Diagnosis [facility] [address] [place] [address] 03/08/2024 Janey Allen [facility] [address] [place] [address] 05/10/2024 Janey Allen [facility] [address] [place] [address] 05/27/2024 Janey Allen Plan Of Treatment Next Appt Details Provider Name:Janey lu, 07/22/2024 10:30:00 AM, [address] [place], [address], Insurance Providers Payer Name Payer Address Payer Phone Subscriber Number Group Number Insured Name Patient Relationship to Insured Coverage Start Date Coverage End Date Medicare National Govt Sv[employer] [address] [place] [phone] [id number] Al Hartman Self - patient is the insured A[employer] [address] [place] [address] [id number] Krishna Hartman Spouse - patient is the spouse of the insured Medical (General) History Medical History History ICD Code Anxiety Arthritis asthma Cataracts Depression Fibromyalgia Hiatal hernia High Blood Pressure Paralysis Cardiac matchbone Surgical History Surgery Date(Month/Year) left knee right hip bunion repair groin hernia
--- OUTSIDE RECORDS SUMMARY | 2024-06-18 09:11 | XMS_ITS ---
Author Organization [facility] Address [address] [place] [address] Care Team Providers Care Decision Analyst Name Role Phone Eddie Messina MD Primary Care Provider Janey Fontenot [phone] REASON FOR VISIT No PW Encounters Encounter Location Date Provider Diagnosis [address] [address] 05/17/2024 Janey Allen Plan Of Treatment Next Appt Details Provider Name:Janey lu, 07/22/2024 10:30:00 AM, [address] [place] [address], [address], Progress Notes * Maggie HARTMANOB: [birth year] (73 yo F)Acc No.[id number]:05/17/2024 Progress Notes Patient:?Al HARTMAN Provider:?Janey Allen DPM :1950???Age:73 Y???Sex:Female D ate:05/17/2024 Address:[address] [place], [place] [id number] Pcp:Eddie Messina MD Subjective: * Chief Complaints: * ???1. No PW. * Medical History:? Objective: * Vitals:? Assessment: Plan: * Treatment: * Images: * The named appointment provid er may or may not be the originator of this progress note, and it is not deemed complete until electronically signed by the appointment provider. Sign off status: Pending * Provider:Shaq Allen DPM Date:?09/2024 Generated for Reba galicia/Margot/Savage on:?06/18/2024 09:10 AM EDT
--- OUTSIDE RECORDS SUMMARY | 2024-06-18 09:11 | XMS_ITS ---
Author Organization [facility] Address [address] [place] [address] Care Team Providers Care Distribution Driver Name Role Phone Eddie Messina MD Primary Care Provider Lalo Hillman [phone] REASON FOR VISIT Pt no show Encounters Encounter Location Date Provider Diagnosis [facility] [address] [place] [address] 10/14/2023 Lalo Vaughn Plan Of Treatment No Information Progress Notes * DUNIA HARTMANSAMPSONOB:1950 (72 yo F)Acc No.[id number]:10/14/2023 Patient:?DUNIA HARTMAN :1950???Age:72 Y???Sex:Female Address:[address] [place] [address] * true * Date:? Generated for Reba galicia/Margot/eTransmitting on:?06/18/2024 09:10 AM EDT
--- OUTSIDE RECORDS SUMMARY | 2024-06-18 09:11 | XMS_ITS ---
Author Organization [facility] Address [address] [place] [address] Care Team Providers Care Automobile Parts Assembler Name Role Phone Eddie Messina MD Primary Care Provider Janey Fontenot [phone] REASON FOR VISIT JAVA SOFTWARE DEVELOPER PPWK Entered Encounters Encounter Location Date Provider Diagnosis [address] [address] 05/27/2024 Janey Allen Plan Of Treatment Next Appt Details Provider Name:Janey lu, 07/22/2024 10:30:00 AM, [address] [place], [address], Progress Notes * CORAZONAroldoClaudiaOB: [birth year] (73 yo F)Acc No.[id number]:05/27/2024 Patient:?Al HARTMAN :1950???Age:73 Y???Sex:Female Address:[address] [place] [address], [address] * true * Date:? Generated for Printi frida/Margot/eTransmitting on:?06/18/2024 09:10 AM EDT
--- NOTE | 2024-06-18 09:34 | A.OFFPC_ITS ---
Intake Visit Reasons: EP-Lt ear pain Allergies No Known Allergies [No Known Allergies*] Allergy (Verified 05/17/24 13:40) PFSH Medical History (Updated 05/05/24 @ 10:20 by Peyton Waddell NP) Left wrist injury Acute respiratory disease Paroxysmal A-fib Hypertension Hx of uterine prolapse Arthritis Hx of transfusion of packed red blood cells GERD (gastroesophageal reflux disease) Anxiety Depression History of cardioversion MILY (obstructive sleep apnea) SOB (shortness of breath) Anemia Cough Orthopnea Post covid-19 condition, unspecified Loculated pleural effusion MSSA bacteremia Atrial fibrillation, new onset Constipation Overweight (BMI 25.0-29.9) UTI (urinary tract infection) Asthma Malabsorption due to intolerance, not elsewhere classified Surgical History Hx of total shoulder replacement History of esophagogastroduodenoscopy (EGD) H/O colonoscopy History of total replacement of right hip History of bunionectomy Left inguinal hernia History of total right hip arthroplasty S/P laparoscopic sleeve gastrectomy Social History Household Members: Family Household Members Other:: Danny Housing: House Are you a primary healthcare project manager to a significant other at home: No Do you presently have visiting nurse or other home services: No Alcohol intake: never Comment: refused bed alarm Patient Tobacco Use Status: Former Tobacco user Tobacco use type: Cigarette Years Smoked: 16 years Second Hand Smoke Exposure: No service: No 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al status: retired 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
[2024-06-18 09:36] VITALS: BP 100/60; PULSE 69; RESP 16; TEMP 36.9; O2SAT 100; BMI 23.8
--- NOTE | 2024-06-18 09:41 | AM.OFFWIN_ITS ---
Intake Vital Signs 06/18/24 09:36 Height 5 ft 2 in Weight 130 lb BMI 23.8 BP 100/60 Blood Pressure Location Rt brachial Position Sitting Respiration 16 Pulse 69 Pulse Source Pulse Oximeter Temp 98.5 F Temp Source Oral Pulse Oximetry (%) 100 Oxygen Delivery Method Room Air Intake Visit Reasons: EP-Lt ear pain Intake Note: Pt is here today c/o Lt ear pain Patient Tobacco Use Status: Former Tobacco user Allergies No Known Allergies [No Known Allergies*] Allergy (Verified 06/18/24 09:44) HPI EP-Lt ear pain HPI Details Complaint of left maxillary sinus pain and left ear pain. Also some left jaw pain No fevers or chills Severe sinus congestion PFSH Medical History (Updated 06/18/24 @ 10:44 by Cyrus Cabrera MD) Left wrist injury Acute respiratory disease Paroxysmal A-fib Hypertension Hx of uterine prolapse Arthritis Hx of transfusion of packed red blood cells GERD (gastroesophageal reflux disease) Anxiety Depression History of cardioversion MILY (obstructive sleep apnea) SOB (shortness of breath) Anemia Cough Orthopnea Post covid-19 condition, unspecified Loculated pleural effusion MSSA bacteremia Atrial fibrillation, new onset Constipation Overweight (BMI 25.0-29.9) UTI (urinary tract infection) Asthma Malabsorption due to intolerance, not elsewhere classified Surgical History Hx of total shoulder replacement History of esophagogastroduodenoscopy (EGD) H/O colonoscopy History of total replacement of right hip History of bunionectomy Left inguinal hernia History of total right hip arthroplasty S/P laparoscopic sleeve gastrectomy Social History Household Members: Family Household Members Other:: Danny Housing: House Are you a primary transitional care liaison to a significant other at home: No Do you presently have visiting nurse or other home services: No Alcohol intake: never Comment: refused bed alarm Patient Tobacco Use Status: Former Tobacco user Tobacco use type: Cigarette Years Smoked: 16 years Second Hand Smoke Exposure: No service: No 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al status: retired 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 of Systems Const Denies chills, Denies fatigue, Denies fever(s), Denies headache(s) and Denies weakness ENT Details: See HPI Denies dizziness and Denies headache(s) Card Denies chest pain, Denies lightheadedness, Denies dyspnea and Denies other (Palpitations) Resp Denies cough, Denies dyspnea, Denies wheezing and Denies other ( shortness of breath) Musc Denies numbness and Denies tingling Neuro Denies dizziness, Denies headache(s), Denies numbness, Denies tingling, Denies paresthesias and Denies weakness Psych Denies anxiety and Denies depression Endo Denies fatigue Aller/Immun Denies wheezing Physical Exam Vital Signs: Last Vital Signs Temp 98.5 F 06/18/24 09:36 Pulse 69 06/18/24 09:36 Resp 16 06/18/24 09:36 BP 100/60 06/18/24 09:36 Pulse Ox 100 06/18/24 09:36 Oxygen Delivery Method Room Air 06/18/24 09:36 BMI result Body Mass Index 23.8 Const General: no acute distress and well developed Nutritional Appearance: well nourished Orientation/consciousness: patient oriented x3 HEENT Other: Moderately severe nasal congestion Tenderness at right maxillary sinus and some swelling Posterior pharynx is normal Right TM mildly erythematous without pus Minimal dental/gingival swelling Head: Yes normocephalic and Yes atraumatic Eyes General: appearance normal, both eyes and all related structures Pupils: Equal, round and reactive pupils present EOM: EOMs intact bilaterally Resp Effort & Inspection: normal respiratory effort Auscultation: clear to auscultation bilaterally Cardio Rate: regular rate Rhythm: regular rhythm Heart sounds: S1 normal heart sound present, S2 normal heart sound present, no gallops, no murmurs and no rubs Neuro General: patient oriented x3 and gait normal Cranial nerves: Yes Equal, round and reactive pupils present Psych Affect: normal affect Assessment & Plan Assessment & Plan (1) Acute sinus infection: Code(s): J01.90 - Acute sinusitis, unspecified Plan: Likely acute bacterial sinus infection Start Augmentin Warm compresses on face Nasal steroid which she has at home Plenty of fluids Medications: New amoxicillin-pot clavulanate 500-125 mg (Augmentin) 1 tab PO Q12H 20 tabs 0RF 10 days Coding Level of Care Code Est Pt Level 3 (91926) Diagnoses Acute sinus infection J01.90
== END 2024-06-18 11:26 | disposition home or self-care (01) ==
LOC: HO.HMCWIC 09:08
PROVIDERS: PCP Internal Medicine; Visit Provider Family Medicine
DX: J01.90 Acute sinusitis, unspecified (principal)

== ENCOUNTER → 2024-06-18 09:08 | Outpatient (BNVA) | payer MEDICARE, SELFPAY ==
[2023-09-24 15:56] VITALS: BMI 25.2
== END ==
PROVIDERS: PCP Internal Medicine; Visit Provider Family Medicine
DX: J01.90 Acute sinusitis, unspecified (principal)
CPT/HCPCS: 99212

== ENCOUNTER 2024-11-15 13:05 | Outpatient (AMB) | payer MEDICARE, SELFPAY ==
[2023-09-24 15:56] VITALS: BMI 25.2
--- OUTSIDE RECORDS SUMMARY | 2023-10-14 12:00 | XMS_ITS ---
Author Organization [facility] Address [address] [place] [id number] Care Team Providers Care Real Estate Rep Name Role Phone Mayuri PASCUAL, Eddie Primary Care Provider Lalo Hillman [phone] REASON FOR VISIT Patient presents today for nausea, vomitting, Encounters Encounter Location Date Provider Diagnosis [facility] [address] [address] 10/14/2023 Lalo Vaughn Plan Of Treatment No Information Progress Notes * DUNIA HARTMANEDOB:1950 (73 yo F)Acc No.[id number]:10/14/2023 Progress Notes Patient: DUNIA CARDOSO Provider: Chiquita Vaughn MD :1950 A ge:72 Y S ex:Female Date:10/14/2023 Address:[address] [place], [place] [id number] Pcp:Edide Messina MD Subjective: * Chief Complaints: * 1 . Patient presents today for nausea, vomitting,. * Medical History: Objective: * Vitals: Assessment: Plan: * Treatment: * * The named appointment provid er may or may not be the originator of this progress note, and it is not deemed complete until electronically signed by the appointment provider. Sign off status: Pending * Provider: Chiquita Vaughn MD Date: 0 10/14/2023 Generated for Printi ng/Faxing/eTransmitting on: 1 04:02 PM EDT
--- OUTSIDE RECORDS SUMMARY | 2024-05-17 10:00 | XMS_ITS ---
Author Organization [facility] Address [address] [place] [address] Care Team Providers Care Cable Braider Name Role Phone Eddie Messina MD Primary Care Provider Janey Fontenot [phone] REASON FOR VISIT No PW Encounters Encounter Location Date Provider Diagnosis [facility] [address] [place] [address] 05/17/2024 Janey Aleln Plan Of Treatment No Information Progress Notes * Aroldo HARTMANieDOB: [birth year] (73 yo F)Acc No.[id number]:05/17/2024 Progress Notes Patient: Al CARDOSO Provider: Denise Allen DPM :1950 A ge:73 Y S ex:Female Date:05/17/2024 Address:[address] [place], [place] [id number] Pcp:Eddie Messina MD Subjective: * Chief Complaints: [...] DPM Date: 0 05/17/2024 Generated for Printi ng/Rajang/eTransmitting on: 1 04:02 PM EDT
[2024-11-15 13:07] VITALS: BP 112/62; PULSE 67; O2SAT 100; BMI 25.2
--- NOTE | 2024-11-15 13:07 | MHC.OFFVIS ---
Vital Signs 11/15/24 13:07 Height 5 ft 2 in Weight 138 lb BMI 25.2 BP 112/62 Blood Pressure Location Rt brachial Position Sitting Pulse 67 Pulse Source Pulse Oximeter Pulse Oximetry (%) 100 Oxygen Delivery Method Room Air Intake Visit Reasons: Shortness of breath Allergies No Known Allergies (No Known Allergies*) Allergy (Verified 11/15/24 13:15) HPI HPI Shortness of breath: Details: 73-year-old lady, former 15 pack-year smoker, quit 1986, with underlying history of asthma and hypertension and prior MSSA pneumonia complicated by loculated effusion status post chest tube with successful chemical decortication, now followed for asthma/COPD and dyspnea on exertion. Patient has been using Trelegy, theophylline, and albuterol MDI/Duonebs with good baseline control of her symptoms. Today she is complaining with worsening dyspnea on exertion lower extremity edema for which she tried 3 days of Lasix 20 mg daily with significant improvement, but not complete resolution of her worsening symptoms. [facility] Medical History (Updated 06/18/24 @ 10:44 by Cyrus Cabrera MD) Left wrist injury Acute respiratory disease Paroxysmal A-fib Hypertension Hx of uterine prolapse Arthritis Hx of transfusion of packed red blood cells GERD (gastroesophageal reflux disease) Anxiety Depression History of cardioversion MILY (obstructive sleep apnea) SOB (shortness of breath) Anemia Cough Orthopnea Post covid-19 condition, unspecified Loculated pleural effusion MSSA bacteremia Atrial fibrillation, new onset Constipation Overweight (BMI 25.0-29.9) UTI (urinary tract infection) Asthma Malabsorption due to intolerance, not elsewhere classified Surgical History Hx of total shoulder replacement History of esophagogastroduodenoscopy (EGD) H/O colonoscopy History of total replacement of right hip History of bunionectomy Left inguinal hernia History of total right hip arthroplasty S/P laparoscopic sleeve gastrectomy Social History Household Members: Family Household Members Other:: Danny Housing: House Are you a primary medicare compliance auditor to a significant other at home: No Do you presently have visiting nurse or other home services: No Alcohol intake: never Comment: refused bed alarm Patient Tobacco Use Status: Former Tobacco user Tobacco use type: Cigarette Years Smoked: 16 years Second Hand Smoke Exposure: No service: No 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al status: retired 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 of Systems Const Denies daytime sleepiness, Denies excessive sweating, Reports fatigue, Denies fever(s), Reports lethargy, Reports malaise, Denies night sweats, Denies snoring and Denies weight loss Eyes Denies blurry vision and Denies itchy eyes ENT Denies nasal congestion, Denies post nasal drip, Denies sinus pain, Denies sinus pressure and Denies other ( Thrush) Card Denies chest pain, Reports pedal edema, Denies dyspnea, Reports dyspnea on exertion, Denies orthopnea and Denies paroxysmal nocturnal dyspnea Resp Denies cough, Denies hemoptysis, Denies excessive phlegm production, Denies dyspnea, Reports dyspnea on exertion, Denies snoring and Denies wheezing GI Denies abdominal pain and Denies heartburn Musc Denies myalgias, Denies arthralgias and Denies joint swelling Skin/Breast Denies rash Neuro Denies memory loss and Denies seizure-like activity Psych Denies abnormal sleep pattern, Denies anxiety and Denies memory loss Endo Denies excessive sweating, Reports fatigue and Denies heat intolerance Micah/Lymph Denies easy bruising Aller/Immun Denies itchy eyes, Denies seasonal rhinorrhea and Denies wheezing Physical Exam Vital Signs: Last Vital Signs Pulse 67 11/15/24 13:07 BP 112/62 11/15/24 13:07 Pulse Ox 100 11/15/24 13:07 Oxygen Delivery Method Room Air 11/15/24 13:07 BMI result Body Mass Index 25.2 Const General: no acute distress and alert Nutritional Appearance: not obese Orientation/consciousness: Other orientation findings ( oriented) HEENT Head: Yes atraumatic Eyes General: appearance normal, both eyes and all related structures Sclerae: sclerae normal EOM: EOMs intact bilaterally Neck Neck: Yes supple Lymphatic: no lymphadenopathy noted Resp Effort & Inspection: normal respiratory effort and no use of accessory muscles Auscultation: crackles (Mild bibasilar) Cardio Rate: regular rate Rhythm: regular rhythm Heart sounds: no gallops, no murmurs and no rubs Skin General skin exam: other ( warm) Extrem General: No clubbing, No cyanosis and Yes edema (Trace bilateral) Assessment & Plan Assessment & Plan (1) Asthma: Code(s): J45.909 - Unspecified asthma, uncomplicated Category: Medical Plan: Baseline well controlled on Trelegy, duo nebs, theophylline, and albuterol MDI. Continue current regimen. (2) BOURGEOIS (dyspnea on exertion): Code(s): R06.09 - Other forms of dyspnea Category: Medical Plan: Now with worsening dyspnea on exertion, lower extremity edema, orthopnea with improvement on empiric furosemide. Will continue furosemide 20 mg daily. Medications: New furosemide (Lasix) 20 mg PO DAILY 30 tabs 6RF Coding Level of Care Code Est Pt Level 4 (16456) Diagnoses Asthma J45.909 BOURGEOIS (dyspnea on exertion) R06.09
--- OUTSIDE RECORDS SUMMARY | 2024-11-15 16:02 | XMS_ITS | Encounter Summary ---
Author Organization [facility] Address [facility] [address] [place] [address] Phone Care Team Providers Care Tilt Tray Driver Name Role Phone Enrique Avila MD Primary Care Provider [phone] Encounter Details Date Type Department Care Team (Late st Contact Info) Description 12/05/2022 Procedure Pass [facility] [place] EP Pacer Lab [address] [facility], [address] 1, [address] [place] [id number] Social History Tobacco Use Types Packs/Day Years Used Date Smoking Tobacco: Never Assessed Education Answer Date Recorded Are you interested in more education? Not on amara e 10/23/2022 Are you concerned about learning? Not on file 10/23/2022 No 10/23/2022 No 10/23/2022 Digital Access Answer Date Recorded No 10/23/2022 No 10/23/2022 Reliable internet access at home? Not on file 10/23/2022 Device with a working camera? Not on file Comments Unknown Sex and Gender Information Value Date Recorded Sex Assigned at Not on file Legal Sex Female 10:01 PM EDT Gender Identity Not on file Sexual Orientation Not on file documented as of this encounter Plan of Treatment Not on file documented as of this encounter Visit Diagnoses Not on filedocumented in this encounter Care Teams Tilt Tray Driver Relationship Specialty Start Date End Date Enrique Avila MD PCP - General Cardiac Electrophysiology 10/23/22 documented as of this encounter Additional Source Comments The information contained in this document represents components of the legal health record. It is not the complete legal health record.[facility]
--- OUTSIDE RECORDS SUMMARY | 2024-11-15 16:02 | XMS_ITS | Encounter Summary ---
Author Organization [facility] Address [address] [address] Phone Care Team Providers Care Pipe Organ Tuner And Repairer Name Role Phone Enrique Avila MD Primary Care Provider [phone] Encounter Details Date Type Department Care Team (Late st Contact Info) Description 10/24/2022 Procedure Pass [facility] [place] [place] Cardiology Referral Images [address] [place] [address] Social History Tobacco Use Types Packs/Day Years [...] on filedocumented in this encounter Care Teams Pipe Organ Tuner And Repairer Relationship Specialty Start Date End Date Enrique Avila MD PCP - General Cardiac Electrophysiology 10/23/22 documented as of this encounter Additional Source Comments The information contained in this document represents components of the legal health record. It is not the complete legal health record.[facility]
--- OUTSIDE RECORDS SUMMARY | 2024-11-15 16:02 | XMS_ITS | Encounter Summary ---
Author Organization [facility] Address [address] [place] [address] Phone Care Team Providers Care Estate Agent Name Role Phone Enrique Avila MD Primary Care Provider [phone] Encounter Details Date Type Department Care Team (Late st Contact Info) Description 03/10/2023 Procedure Pass [facility] Echo Lab [address] [place] [address] Social History Tobacco Use Types Packs/Day Years [...] on filedocumented in this encounter Care Teams Estate Agent Relationship Specialty Start Date End Date Enrique Avila MD PCP - General Cardiac Electrophysiology 10/23/22 documented as of this encounter Additional Source Comments The information contained in this document represents components of the legal health record. It is not the complete legal health record.[facility]
--- OUTSIDE RECORDS SUMMARY | 2024-11-15 16:02 | XMS_ITS | Clinical Summary ---
Author Organization [address] [facility] Address [address] [place] [address] Phone Care Team Providers Care Box Repairer Name Role Phone Eddie Messina MD Primary Care Provider [phone] Encounters Date Type Department Care Team Description 10/18/2024 Lab Requisition [facility] - Main Lab [address] [facility] [place] [place] [address] Danielle Callahan PA Urinary tract infection, site not specified from Last 3 Months Social History Tobacco Use Types Packs/Day Years Used Date Smoking Tobacco: Never Assessed Comments Unknown Sex and Gender Information Value Date Recorded Sex Assigned at Not on file Legal Sex Female 2:26 PM EDT Gender Identity Not on file Sexual Orientation Not on file Plan of Treatment Health Maintenance Due Date Last Done Comments Breast Cancer Screening 1950 Colorectal Cancer Screening: Colonoscopy 1950 DTaP,Tdap,and Td Vaccines (1 - Tdap) 1969 Pneumococcal Vaccine: 50+ Ye ars (1 of 1 - PCV) 2000 Zoster Vaccines (1 of 2) 2000 Depression Screening 02/10/2024 COVID-19 Vaccine (1 - 2023-2 5 season) 2024 Influenza Vaccine (#1) 2024 Falls Risk Assessment 10/18/2024 Hepatitis C Screening 10/18/2024 Medicare Annual Wellness Visit 10/18/2024 Osteoporosis Screening (Bone Density Screening) 10/18/2024 Social Influencers of Health Screening 10/18/2024 RSV Immunization Adult Patie nts (1 - 1-dose 75+ series) 2025 HIB Vaccines Aged Out No longer eligi ble based on patient's age to complete this topic HPV Vaccines Aged Out No longer eligi ble based on patient's age to complete this topic Hepatitis A Vaccines Aged Out No long er eligible based on patient's age to complete this topic Hepatitis B Vaccines Aged Out No long er eligible based on patient's age to complete this topic IPV Vaccines Aged Out No longer eligi ble based on patient's age to complete this topic MMR Vaccines Aged Out No longer eligi ble based on patient's age to complete this topic Meningococcal ACWY Vaccine Aged Out N o longer eligible based on patient's age to complete this topic Meningococcal B Vaccine Aged Out No l onger eligible based on patient's age to complete this topic RSV Immunization Patients Un funmilayo 20 months Aged Out No longer eligible b ased on patient's age to complete this topic Varicella Vaccines Aged Out No longer eligible based on patient's age to complete this topic Procedures Procedure Name Priority Date/Time Associated Diagnosis Comments CULTURE URINE Routine 10/18/2024 12:00 AM EDT Urinary tract infection, site not specified from Last 3 Months Results * (ABNORMAL) Culture urine (10/18/2024 12:00 AM EDT) [facility] Signature Culture, Urine >=100,000 CFU/mL Klebsiella pneumoniae ssp pneumoniae(A) NAHID 10/20/2024 10:31 AM EDT [facility] Comment: This is an edited result. Previous organism was Gram negative bacilli on 10/19/2024 at 0757 EDT. Urine Urine specimen obtained by clean catch procedure / Unknown 10/18/2024 10/18/2024 2:33 PM EDT Narrative Organism Antibiotic Method Susceptibility Klebsiella pneumoniae ssp pneumoniae Amoxicillin/Clavulanate NAHID <=2 ug/ml: Susceptible Klebsiella pneumoniae ssp pneumoniae Ampicillin/Sulbactam NAHID 8 ug/ml: Susceptible Klebsiella pneumoniae ssp pneumoniae Piperacillin/Tazobactam NAHID <=4 ug/ml: Susceptible Klebsiella pneumoniae ssp pneumoniae Cefazolin (Urine) NAHID 2 ug/ml: Susceptible Klebsiella pneumoniae ssp pneumoniae Cefoxitin NAHID <=4 ug/ml: Susceptible Klebsiella pneumoniae ssp pneumoniae Ceftazidime NAHID <=0.5 ug/ml: Susceptible Klebsiella pneumoniae ssp pneumoniae Ceftriaxone NAHID <=0.25 ug/ml: Susceptible Klebsiella pneumoniae ssp pneumoniae Cefepime NAHID <=0.12 ug/ml: Susceptible Klebsiella pneumoniae ssp pneumoniae Meropenem NAHID <=0.25 ug/ml: Susceptible Klebsiella pneumoniae ssp pneumoniae Amikacin NAHID <=1 ug/ml: Susceptible Klebsiella pneumoniae ssp pneumoniae Gentamicin NAHID <=1 ug/ml: Susceptible Klebsiella pneumoniae ssp pneumoniae Ciprofloxacin NAHID <=0.06 ug/ml: Susceptible Klebsiella pneumoniae ssp pneumoniae Levofloxacin NAHID <=0.12 ug/ml: Susceptible Klebsiella pneumoniae ssp pneumoniae Nitrofurantoin NAHID 64 ug/ml: Intermediate Klebsiella pneumoniae ssp pneumoniae Trimethoprim/Sulfamethoxazo le NAHID <=20 ug/ml: Susceptible us Danielle KWAN LAB MICROBIOLOGY - GENERAL ORD ERABLES Final Result [facility] LAB [address] [place] [address], from Last 3 Months Insurance [employer] MEDICARE ADVANTAGE Care Teams Box Repairer Relationship Specialty Start Date End Date Eddie Messina MD [address] [place] [address] PCP - General Internal Medicine 10/18/24
--- OUTSIDE RECORDS SUMMARY | 2024-11-15 16:02 | XMS_ITS | Encounter Summary ---
Author Organization [facility] Address [address] [place] [address] Care Team Providers Care Manager Construction Name Role Phone Eddie Messina MD Primary Care Provider [phone] Encounter Details Date Type Department Care Team (Late st Contact Info) Description 10/18/2024 Lab Requisition [facility] - Main Lab [address] [facility] [place] [address] Danielle Callahan PA [address] [place], [place] [id number] Urinary tract infection, site not specified Social History Tobacco Use Types Packs/Day Years Used Date Smoking Tobacco: Never Assessed Comments Unknown Sex and Gender Information Value Date Recorded Sex Assigned at Not on file Legal Sex Female 2:26 PM EDT Gender Identity Not on file Sexual Orientation Not on file documented as of this encounter Plan of Treatment Not on file documented as of this encounter Procedures Procedure Name Priority Date/Time Associated Diagnosis Comments CULTURE URINE Routine 10/18/2024 12:00 AM EDT Urinary tract infection, site not specified documented in this encounter Results * (ABNORMAL) Culture urine (10/18/2024 12:00 AM EDT) Culture, Urine >=100,000 CFU/mL Klebsiella pneumoniae ssp pneumoniae(A) NAHID 10/20/2024 10:31 AM EDT [facility] Comment: This is an edited result. [...] le NAHID <=20 ug/ml: Susceptible us Danielle Callahan PA LAB MICROBIOLOGY - GENERAL ORD ERABLES Final Result [facility] [address] [place] [address], documented in this encounter Visit Diagnoses Diagnosis Urinary tract infection, site not specified documented in this encounter Care Teams Manager Construction Relationship Specialty Start Date End Date Eddie Messina MD [address] [place] [address] PCP - General Internal Medicine 10/18/24 documented as of this encounter
--- OUTSIDE RECORDS SUMMARY | 2024-11-15 16:02 | XMS_ITS | Clinical Summary ---
Author Organization [facility], Address [address] [facility] [address] [place] [address] Phone Care Team Providers Care Internet Media Planner Name Role Phone Eddie Messina MD Primary Care Provider [phone] Allergies No known active allergies Medications albuterol [...] Diagnosed Date Hypercalcemia 03/21/2020 Hypertensive disorder 03/21/2020 Encounters Date Type Department Care Team Description 11/02/2024 Documentation Only [facility], [address] [address] J Luis Strauss MA from Last 3 Months Immunizations Immunization Administration Dates Next Due Influenza [...] Colonoscopy 11/20/1999 Colorectal Cancer Screening: Sigmoidoscopy 11/20/1999 Influenza Vaccine (#1) 2024 9, 10/26/2018, 10/26/2018 Pneumococcal Vaccine: 50+ Years Completed 02/05/2023, 07/21/2018, 06/01/2015, Additional history exists Pneumococcal Vaccine: Peds (0 to 5 Years) and At-Risk Patients (6 to 49 Years) Discontinued 02/05/2023, 07/21/2018, 06/01/2015, Additional history exists Hepatitis B Vaccine Aged Out No longe r eligible based on patient's age to complete this topic Insurance [place] Member Subscriber Plan / Payer (Ef fective 2019-Present) Name:DevanShilpaAfshan Relation to Subscriber:Spouse Name:BRANDON HARTMAN (Home) Address: [address] [place] [id number] Payer ID:[id number] (NAIC) Type:Not on file Address: [address] [address] [employer] [facility] PPO ([id number]) Care Teams Internet Media Planner Relationship Specialty Start Date End Date Eddie Messina MD [facility] [place] WELL[facility] NURSE [address] [place] [address] [place] PCP - General Internal Medicine 05/11/20
--- OUTSIDE RECORDS SUMMARY | 2024-11-15 16:02 | XMS_ITS | Clinical Summary ---
Author Organization [facility] Address [address] [place] [address] Phone Care Team Providers Care Rose Grading Supervisor Name Role Phone Enrique Avila MD Primary Care Provider [phone] Allergies No known active allergies Medications digoxin (LANOXIN) 125 mcg tablet Take 1 tablet by mouth every morning. 3 Active albuterol 90 mcg/actuation inhaler INHALE 2 PUFFS 4 TIMES A DAY 3 Active acetaminophen (TYLENOL) 325 mg tablet Take 975 mg by mouth. 3 Active buPROPion (WELLBUTRIN SR) 200 MG SR 12 hr tablet Take 1 tablet by mouth 2 (two) times a day. Active cetirizine (ZYRTEC) 10 MG tablet Take 10 mg by mouth. Active docusate sodium (COLACE) 100 MG capsule Take 100 mg by mouth. 3 Active fluticasone propionate (FLONASE ALLERGY RELIEF) 50 mcg/actuation nasal spray by Nasal route 2 (two) times a day as needed. 3 Active TRELEGY ELLIPTA 200-62.5-25 mcg inhaler INHALE 1 PUFF EVERY DAY 3 Active furosemide (LASIX) 40 MG tablet Take 40 mg by mouth. 3 Active furosemide (LASIX) 20 MG tablet Take 20 mg by mouth. 3 Active lamoTRIgine (LAMICTAL) 100 MG IMMEDIATE release tablet Take 100 mg by mouth. 3 Active lamoTRIgine (LAMICTAL) 200 MG IMMEDIATE release tablet Take 1 tablet by mouth. Active loratadine (CLARITIN) 10 mg tablet Take 10 mg by mouth. 3 Active montelukast (SINGULAIR) 10 mg tablet Take by mouth. 2 Active oxyBUTYnin (DITROPAN-XL) 10 MG 24 hr tablet Take 10 mg by mouth every morning. 3 Active pantoprazole (PROTONIX) 40 MG tablet Take 1 tablet by mouth every morning. 3 Active theophylline (UNIPHYL) 400 mg 24 hr tablet 3 Active dilTIAZem (CARDIZEM CD) 360 MG 24 hr capsuleIndication s:Paroxysmal atrial fibrillation Take 1 capsule (360 mg total) by mouth every morning. 30 capsule 2 4 Active ELIQUIS 5 mg tabletIndications :Paroxysmal atrial fibrillation Take 1 tablet (5 mg total) by mouth 2 (two) times a day. 60 tablet 2 4 Active flecainide (TAMBOCOR) 100 MG tabletIndications :Paroxysmal atrial fibrillation Take 1 tablet (100 mg total) by mouth 2 (two) times a day. 60 tablet 5 4 Active Active Problems Problem Noted Date Diagnosed Date Paroxysmal atrial fibrillation 03/11/2023 Overview (03/11/2023): PAF initially diagnosed in July of 2019 Initial DCCV February or March 2020 Recurred fall On digoxin Started flecainide 11/21/2022 S/P successful DCCV 12/11/2022 Symptomatic CHADS/VASC score of 3 (hypertension, age and gender) on eliquis Assessment & Plan (03/11/2023 11:18 AM EST): We discussed the anatomic and physiologic basis for atrial fibrillation and the associated risk for thromboembolic stroke were discussed in detail today. We also discussed the indications for and risks of anticoagulation for the prevention of AF-related stroke in detail. The two strategies for the management of AF including rate vs. rhythm control were reviewed in detail. The importance of rate control during AF. We discussed at length the various therapeutic options available for a rhythm control strategy in the management of symptomatic atrial fibrillation including trials of antiarrhythmic drug therapy, or radiofrequency catheter ablation directed at isolation of the pulmonary veins. The advantages, limitations, and risks of these approaches were reviewed in detail. The specifics of the pulmonary vein isolation procedure, as well as its success rate and associated risks including but not limited to cardiac tamponade, embolic stroke, and pulmonary vein stenosis were reviewed. Doing well on flecainide / diltiazem Will d/c digoxin She will reevaluate for OBSTRUCTIVE SLEEP APNEA Variable QRS duration - will schedule ETT to evaluate flecainide use dependent Repeat ECHO to ensure resolution of TMCMP Social History Tobacco Use Types Packs/Day Years [...] Sign Reading Time Taken Comments Blood Pressure 122/80 03/10/2023 3:15 PM EST Pulse 104 03/10/2023 3:15 PM EST Temperature - - Respiratory Rate - - Oxygen Saturation 97% 03/10/2023 3:15 PM EST Inhaled Oxygen Concentration - - Weight 30.7 kg (67 lb 9.4 oz) 03/10/2023 3:15 PM EST Height - - Body Mass Index - - Plan of Treatment Health Maintenance Due Date Last Done Comments Adult Td,Tdap Booster 1950 CREATININE LEVEL 1950 LIPID PANEL 1950 POTASSIUM LEVEL 1950 DEPRESSION SCREENING 1962 SMOKING Hx and SMOKELESS TOB ACCO SCREENING 11/20/1963 HEPATITIS C SCREENING 1968 MAMMOGRAM 1990 COLOGUARD 11/20/1995 COLONOSCOPY 11/20/1995 COLORECTAL CANCER SCREENING 11/20/1995 FIT TEST 11/20/1995 FOBT 11/20/1995 SIGMOIDOSCOPY 11/20/1995 VIRTUAL COLONOSCOPY 11/20/1995 PNEUMOCOCCAL VACCINES (50+ y ears) (1 of 1 - PCV) 2000 ZOSTER VACCINES (1 of 2) 2000 RSV VACCINE (1 - Risk 60-74 years 1-dose series) 2010 OSTEOPOROSIS SCREENING INITI AL (ONE-TIME) 11/20/2015 INFLUENZA VACCINE (#1) 2024 COVID-19 VACCINE (1 - 2023-2 5 season) 2024 HEPATITIS A VACCINES Aged Out No long er eligible based on patient's age to complete this topic HIB VACCINES Aged Out No longer eligi ble based on patient's age to complete this topic MENINGOCOCCAL VACCINES (ACWY) Aged Out No longer eligible based on patient's age to complete this topic MENINGOCOCCAL VACCINES (B) Aged Out N o longer eligible based on patient's age to complete this topic Medical Devices Not on file Insurance A[employer] PPO MEDICARE REPLACEMENT AETNA PPO MEDICARE REPLACEMENT AETNA PPO MEDICARE REPLACEMENT AETNA PPO MEDICARE REPLACEMENT AETNA PPO MEDICARE REPLACEMENT AET[employer] PPO MEDICARE REPLACEMENT Care Teams Rose Grading Supervisor Relationship Specialty Start Date End Date Enrique Avila MD PCP - General Cardiac Electrophysiology 10/23/22 Additional Source Comments The information contained in this document represents components of the legal health record. It is not the complete legal health record.[facility]
--- OUTSIDE RECORDS SUMMARY | 2024-11-15 16:02 | XMS_ITS | Encounter Summary ---
Author Organization [facility] Address [address] [place] [address] Phone Care Team Providers Care Distilling Department Supervisor Name Role Phone Enrique Avila MD Primary Care Provider [phone] Encounter Details Date Type Department Care Team (Late st Contact Info) Description 12/11/2022 Telephone [facility]ia [facility] [address], [address] [place] [address] Andrew Obregon MD [address] [place] [id number] [email or web address] U Social History Tobacco Use Types Packs/Day Years [...] on filedocumented in this encounter Care Teams Distilling Department Supervisor Relationship Specialty Start Date End Date Enrique Avila MD PCP - General Cardiac Electrophysiology 10/23/22 documented as of this encounter Additional Source Comments The information contained in this document represents components of the legal health record. It is not the complete legal health record.[facility]
--- OUTSIDE RECORDS SUMMARY | 2024-11-15 16:03 | XMS_ITS | Encounter Summary ---
Author Organization [facility] Address [address] [place] [address] Phone Care Team Providers Care Corporate Affairs Manager Name Role Phone Eddie Messina MD Primary Care Provider [phone] Encounter Details Date Type Department Care Team (Late st Contact Info) Description 11/02/2024 Documentation Only [facility], [address] [place] [address] J Luis [place], [place] [address] [place] [address] Social History Tobacco Use Types Packs/Day Years [...] on filedocumented in this encounter Care Teams Corporate Affairs Manager Relationship Specialty Start Date End Date Eddie Messina MD [place] NUCLEAR OPERATOR [address] [place] [address] PCP - General Internal Medicine 05/11/20 documented as of this encounter
--- OUTSIDE RECORDS SUMMARY | 2024-11-15 16:03 | XMS_ITS | Encounter Summary ---
Author Organization [facility] Address [facility]ly [facility] [address] [place] [address] Phone Care Team Providers Care New Car Make Ready Worker Name Role Phone Enrique Avila MD Primary Care Provider [phone] Encounter Details Date Type Department Care Team (Late st Contact Info) Description 12/11/2022 Procedure Pass [facility] [address], [address], [address] [place] [address] Social History Tobacco Use Types Packs/Day Years [...] on filedocumented in this encounter Care Teams New Car Make Ready Worker Relationship Specialty Start Date End Date Enrique Avila MD PCP - General Cardiac Electrophysiology 10/23/22 documented as of this encounter Additional Source Comments The information contained in this document represents components of the legal health record. It is not the complete legal health record.[facility]
--- OUTSIDE RECORDS SUMMARY | 2024-11-15 16:03 | XMS_ITS | Clinical Summary ---
Author Organization [facility] Address [address] [place] [address] Care Team Providers Care Senior Developer Name Role Phone None, Provider ADDICTION TREATMENT COUNSELOR Primary Care Provider Unavaila ble Allergies No known active allergies Social History Tobacco Use Types Packs/Day Years Used Date Smoking Tobacco: Never Assessed Comments Unknown Sex and Gender Information Value Date Recorded Sex Assigned at Not on file Legal Sex Female 14:03 EDT Gender Identity Female 08/13/2024 15:07 EDT Sexual Orientation Not on file Last Filed Vital Signs Vital Sign Reading Time Taken Comments Blood Pressure 137/63 08/13/2024 1600 EDT Pulse 79 08/13/2024 1600 EDT Temperature 36.4 C (97.5 F) 08/13/2024 1407 EDT Respiratory Rate 12 08/13/2024 1600 EDT Oxygen Saturation 98% 08/13/2024 1600 EDT Inhaled Oxygen Concentration - - Weight - - Height - - Body Mass Index - - Plan of Treatment Health Maintenance Due Date Last Done Comments Hepatitis C Screen 1950 Fall Risk Screening 11/20/2015 COVID-19 Vaccine (2023-2 5 season) 2023 02/05/2023, 05/25/2021, 12/20/2020, Additional history exists RSV Immunization ( o r 60+ Years) (1 - 1-dose 75+ series) 2025 Procedures Procedure Name Priority Date/Time Associated Diagnosis Comments ECG REPORT - SCANNED 08/15/2024 4:17 EDT from Last 3 Months Results * ECG REPORT - SCANNED (08/15/2024 4:17 EDT) 08/15/2024 4:17 EDT us Scan 2 Command Center Analyst PROCEDURE/MINOR SURGICAL OR DERABLES Final Result from Last 3 Months Insurance A[employer] Care Teams Senior Developer Relationship Specialty Start Date End Date None, Provider, ADDICTION TREATMENT COUNSELOR PCP - General 08/13/24
--- OUTSIDE RECORDS SUMMARY | 2024-11-15 16:03 | XMS_ITS | Encounter Summary ---
Author Organization [facility] Address [address] [place] [address] Phone Care Team Providers Care Kettleman Name Role Phone Enrique Avila MD Primary Care Provider [phone] Encounter Details Date Type Department Care Team (Latest Contact Info) Description 06/09/2023 Ancillary Orders [facility] Service [address], 5th [address], [address] [place] [address] Maggie Ortiz, KIRSTIN [address] [place] [address] [email or web address] Paroxysmal atrial fibrillation (Primary Dx) Social History Tobacco Use Types Packs/Day Years [...] on file documented as of this encounter Results * Stress Test Exercise Not Performed (06/09/2023 10:31 AM EDT) us Maggie Ortiz STAGE SETTING PAINTER APPRENTICE CV STRESS ORDERABLES Final R esult documented in this encounter Visit Diagnoses Diagnosis Paroxysmal atrial fibrillation- Primary Atrial fibrillation documented in this encounter Care Teams Kettleman Relationship Specialty Start Date End Date Enrique Avila MD PCP - General Cardiac Electrophysiology 10/23/22 documented as of this encounter Additional Source Comments The information contained in this document represents components of the legal health record. It is not the complete legal health record.[facility]
--- OUTSIDE RECORDS SUMMARY | 2024-11-15 16:03 | XMS_ITS | Patient Health Record ---
[facility] Address [address] [place] [address] Care Team Providers Care Keno Writer/Runner Name Role Phone Eddie Messina MD Primary Care Provider Janey Fontenot Unavailable [phone] Allergies No Known Allergies Reason For Referral No Information Medications Medication SIG (Take, Route, Frequency, Duration) Notes Start Date End Date Status Albuterol Sulfate HFA 108 (90 Base) MCG/ACT Inhalation; Duration: 17 Days Active Trelegy Ellipta 200-62.5-25 MCG/ACT INHALE 1 PUFF BY MOUTH EVERY DAY Inhalation; Duration: 30 Days Active lamoTRIgine Active Pantoprazole Sodium 40 MG Oral; Duration: 90 Days Active Losartan Potassium A ctive Clopidogrel Bisulfate 75 MG TAKE 1 TABLE T BY MOUTH EVERY DAY Oral; Duration: 90 Days Active Atorvastatin Calcium 40 MG TAKE 1 TABLET BY MOUTH EVERY DAY AT BEDTIME Oral; Duration: 90 Days Active amLODIPine Besylate 5 MG TAKE 1 TABLET B Y MOUTH EVERY DAY. Oral; Duration: 90 Days Active Wellbutrin SR 100 MG 1 tablet in the rigo marguerite Orally Once a day Active oxyBUTYnin Chloride ER 10 MG Oral; Duration: 90 Days Active Wellbutrin SR 200 MG 1 tablet in the mor marguerite Orally Once a day Active Spironolactone 25 MG TAKE 1 TABLET BY MO UTH EVERY DAY Oral; Duration: 90 Days Active Eliquis 5 MG TAKE 1 TABLET BY IAN TH TWICE A DAY FOR 30 DAYS Oral; Duration: 30 Days Active LaMICtal Active Theophylline ER 400 MG TAKE 1 TABLET BY MOUTH EVERY DAY Oral; Duration: 90 Days Active Immunizations Vaccine Route Administration Date Status Comme nts Influenza Unknown 12/25/2023 Administered Social History Tobacco Use: Social History Observation Description Date Details (start date - stop date) Never Smoker NA - NA Tobacco use other than smoking: Question Answer Notes Are you an other tobacco user? No Tobacco Control (Standard) Question Answer Notes Tobacco use: Nonsmoker Additional Findings: Tobacco non-user Current no nsmoker AUDIT-C (Standard) Question Answer Notes Did you have a drink containing alcohol in the p ast year? No Points 0 Interpretation Negative Problems Problem Type SNOMED Code ICD Code Onset Dates Problem Status W/U Status Risk Notes Problem Acquired hallux valgus (06642130) Hallux valgus (acquired), left foot (M20.12) Active confirmed Problem Acquired hammer toe of left foot (6922387670977 103) Hammer toe of left foot (M20.42) Active confirmed Vital Signs Blood pressure diastolic 60 mm Hg 07/22/2024 Height 5ft 2in in 07/22/2024 Blood pressure systolic 110 mm Hg 07/22/2024 Weight 130 lbs 07/22/2024 BMI 23.77 kg/m2 07/22/2024 Encounters Encounter Location Date [facility] [address] 07/22/2024 Janey Allen Pain in left foot M79.672 ; Hallux valgus (acquired), left foot M20.12 ; Pain in left ankle and joints of left foot M25.572 ; Bursitis of left foot M77.52 ; Hammer toe of left foot M20.42 and Tinea unguium B35.[address] [facility] [address] 03/08/2024 Janey Allen [address] [address] 05/10/2024 [facility] [address] 05/27/2024 Janey Allen Assessments Encounter Date Diagnosis (ICD Code) Assessment Notes Treatment Notes Treatment Clinical Notes Section Notes 07/22/2024 Pain in left foot (ICD-10 - M79.672) 07/22/2024 Hallux valgus (acquired), left foot (ICD-10 - M20.12) 07/22/2024 Pain in left ankle and joints of left foot (ICD-10 - M25.572) 07/22/2024 Bursitis of left foot (ICD-10 - M77.52) 07/22/2024 Hammer toe of left foot (ICD-10 - M20.42) 07/22/2024 Tinea unguium (ICD-10 - B35.1) Plan Of Treatment Pending Test Test Name Order Date X ray : Foot, left 3V 07/22/2024 Insurance Providers Payer Name Payer Address Payer Phone Subscriber Number Group Number Insured Name Patient Relationship to Insured Coverage Start Date Coverage End Date [employer] [address] [place] [address] [id number] Al Hartman Self - patient is the insured 4 Medical (General) History Medical History History ICD Code Anxiety Arthritis asthma Cataracts Depression Fibromyalgia Hiatal hernia High Blood Pressure Paralysis Cardiac matchbone Surgical History Surgery Date(Month/Year) left knee right hip bunion repair groin hernia Hospitalization History Reason Date(Month/Year) [facility] - Chest pain 05/10/2024
--- OUTSIDE RECORDS SUMMARY | 2024-11-15 16:03 | XMS_ITS | Patient Health Record ---
Author Organization [facility] Address [address] [place] [address] Care Team Providers Care Projection Printer Name Role Phone Eddie Messina MD Primary Care Provider Lalo Hillman [phone] Reason For Referral No Information Medications Medication [...] Problem Status W/U Status Risk Notes Problem 883119089 Encounter for screening for malignant neoplasm of colon (Z12.11) Active confirmed Problem 481588860 History of adenomatous polyp of colon (Z86.010) Active confirmed Problem Screening for malignant neoplasm of rectum (200365476) Encounter for screening for malignant neoplasm of rectum (Z12.12) Active confirmed Problem 320350039 Gastroesophageal reflux disease with esophagitis (K21.0) Active confirmed Problem 077373577 Gastroesophageal reflux disease, esophagitis presence not specified (K21.9) Active confirmed Problem 59710316 Hiatal hernia (K44.9) Active confirmed Problem 41615803 Erosive esophagi tis (K22.10) Active confirmed Problem 12251324 Iron deficiency anemia, unspecified iron deficiency anemia type (D50.9) Active confirmed Problem 409592685 Anemia due to ot her cause, not classified (D64.89) Active confirmed Problem 34463207 Irritable bowel syndrome with both constipation and diarrhea (K58.2) Active confirmed Plan Of Treatment Pending Test Test Name [...] Date Coverage End Date [employer] [address] [place] [address] [id number] DUNIA HARTMAN Self - patient is the insured Medical (General) History Medical History History ICD Code Tubular adenomas removed in 2004; negative colonoscopy 09/2010 and 07/2017, except for diverticulosis Denies [place],DM,CVA,Lung disease,renal dise ase Negative cardiac cath at [facility] [place] 2011 Arthritis- goes [...] Bariatric surgery with sleeve gastrectom y at [facility] [place] 04/13/2018 Hiatal hernia repair at [facility] [place] 04/13/2018
== END 2024-11-15 13:35 | disposition home or self-care (01) ==
LOC: HO.HPS 13:05
PROVIDERS: PCP Internal Medicine; Visit Provider Internal Medicine Pulmonary Disease
DX: J45.909 Unspecified asthma, uncomplicated (principal); R06.09 Other forms of dyspnea
CPT/HCPCS: 99214

== ENCOUNTER → 2024-11-15 13:05 | Outpatient (BNVA) | payer MEDICARE, SELFPAY ==
[2023-09-24 15:56] VITALS: BMI 25.2
== END ==
PROVIDERS: PCP Internal Medicine; Visit Provider Internal Medicine Pulmonary Disease
DX: J45.909 Unspecified asthma, uncomplicated (principal); R06.09 Other forms of dyspnea
CPT/HCPCS: 99212

== ENCOUNTER 2025-01-16 14:10 | Outpatient (AMB) | payer MEDICARE, SELFPAY ==
[2023-09-24 15:56] VITALS: BMI 25.2
[2025-01-16 14:13] VITALS: BP 122/64; PULSE 71; O2SAT 97; BMI 23.8
--- NOTE | 2025-01-16 14:13 | MHC.OFFVIS ---
Vital Signs 01/16/25 14:13 Height 5 ft 2 in Weight 130 lb BMI 23.8 BP 122/64 Blood Pressure Location Rt brachial Position Sitting Pulse 71 Pulse Source Pulse Oximeter Pulse Oximetry (%) 97 Oxygen Delivery Method Room Air Intake Visit Reasons: Shortness of breath Allergies No Known Allergies (No Known Allergies*) Allergy (Verified 11/15/24 13:15) HPI HPI Shortness of breath: Details: 74-year-old lady, former 15 pack-year smoker, quit 1986, with underlying history of asthma and hypertension and prior MSSA pneumonia complicated by loculated effusion status post chest tube with successful chemical decortication, now followed for asthma/COPD and dyspnea on exertion. Patient has been using Trelegy, theophylline, and albuterol MDI/Duonebs with good baseline control of her symptoms. She had recent admission to [facility] for an acute exacerbation treated with a course of steroids and antibiotics, now essentially at baseline. Her orthopnea symptoms are also well controlled on current diuretic regimen of Lasix 20 mg daily. [facility] Medical History (Updated 06/18/24 @ 10:44 by Cyrus Cabrera MD) Left wrist injury Acute respiratory disease Paroxysmal A-fib Hypertension Hx of uterine prolapse Arthritis Hx of transfusion of packed red blood cells GERD (gastroesophageal reflux disease) Anxiety Depression History of cardioversion MILY (obstructive sleep apnea) SOB (shortness of breath) Anemia Cough Orthopnea Post covid-19 condition, unspecified Loculated pleural effusion MSSA bacteremia Atrial fibrillation, new onset Constipation Overweight (BMI 25.0-29.9) UTI (urinary tract infection) Asthma Malabsorption due to intolerance, not elsewhere classified Surgical History Hx of total shoulder replacement History of esophagogastroduodenoscopy (EGD) H/O colonoscopy History of total replacement of right hip History of bunionectomy Left inguinal hernia History of total right hip arthroplasty S/P laparoscopic sleeve gastrectomy Social History Household Members: Family Household Members Other:: Danny Housing: House Are you a primary intensive care unit registered nurse to a significant other at home: No Do you presently have visiting nurse or other home services: No Alcohol intake: never Comment: refused bed alarm Patient Tobacco Use Status: Former Tobacco user Tobacco use type: Cigarette Years Smoked: 16 years Second Hand Smoke Exposure: No service: No 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al status: retired 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 of Systems Const Denies daytime sleepiness, Denies excessive sweating, Denies fatigue, Denies fever(s), Denies lethargy, Denies malaise, Denies night sweats, Denies snoring and Denies weight loss Eyes Denies blurry vision and Denies itchy eyes ENT Denies nasal congestion, Denies post nasal drip, Denies sinus pain, Denies sinus pressure and Denies other ( Thrush) Card Denies chest pain, Denies pedal edema, Denies dyspnea, Denies orthopnea and Denies paroxysmal nocturnal dyspnea Resp Denies cough, Denies hemoptysis, Denies excessive phlegm production, Denies dyspnea, Denies snoring and Denies wheezing GI Denies abdominal pain and Denies heartburn Musc Denies myalgias, Denies arthralgias and Denies joint swelling Skin/Breast Denies rash Neuro Denies memory loss and Denies seizure-like activity Psych Denies abnormal sleep pattern, Denies anxiety and Denies memory loss Endo Denies excessive sweating, Denies fatigue and Denies heat intolerance Micah/Lymph Denies easy bruising Aller/Immun Denies itchy eyes, Denies seasonal rhinorrhea and Denies wheezing Physical Exam Vital Signs: Last Vital Signs Pulse 71 01/16/25 14:13 BP 122/64 01/16/25 14:13 Pulse Ox 97 01/16/25 14:13 Oxygen Delivery Method Room Air 01/16/25 14:13 BMI result Body Mass Index 23.8 Const General: no acute distress and alert Nutritional Appearance: not obese Orientation/consciousness: Other orientation findings ( oriented) HEENT Head: Yes atraumatic Eyes General: appearance normal, both eyes and all related structures Sclerae: sclerae normal EOM: EOMs intact bilaterally Neck Neck: Yes supple Lymphatic: no lymphadenopathy noted Resp Effort & Inspection: normal respiratory effort and no use of accessory muscles Auscultation: clear to auscultation bilaterally Cardio Rate: regular rate Rhythm: regular rhythm Heart sounds: no gallops, no murmurs and no rubs Skin General skin exam: other ( warm) Extrem General: No clubbing, No cyanosis and No edema Assessment & Plan Assessment & Plan (1) Bilateral lower extremity edema: Code(s): R60.0 - Localized edema Category: Medical Plan: Now well controlled on current diuretic regimen of Lasix 20 mg daily. Continue current regimen. (2) Asthma: Code(s): J45.909 - Unspecified asthma, uncomplicated Category: Medical Plan: Well controlled on baseline regimen of trilogy, theophylline, duo nebs, and albuterol MDI. Continue current regimen. Medications: New prednisone 40 mg (2 x 20 mg) PO DAILY 14 tabs 0RF levofloxacin 500 mg PO Q24H 7 tabs 0RF Coding Level of Care Code Est Pt Level 4 (26982) Complex visit Add On G2211 Diagnoses Bilateral lower extremity edema R60.0 Asthma J45.909
--- OUTSIDE RECORDS SUMMARY | 2025-01-16 23:05 | XMS_ITS | Encounter Summary ---
Author Organization [facility] Address [address] [place] [address] Phone Care Team Providers Care Hand Umbrella Tipper Name Role Phone Enrique Avila MD Primary Care Provider [phone] Encounter Details Date Type Department Care Team (Late st Contact Info) Description 12/11/2022 Telephone [facility] [place] [address], 5[address], [address] [place] [address] Andrew Obregon MD [address] [place] [address] [email or web address] Social History Tobacco Use Types Packs/Day [...] on filedocumented in this encounter Care Teams Hand Umbrella Tipper Relationship Specialty Start Date End Date Enrique Avila MD PCP - General Cardiac Electrophysiology 10/23/22 documented as of this encounter Additional Source Comments The information contained in this document represents components of the legal health record. It is not the complete legal health record.[facility]
--- OUTSIDE RECORDS SUMMARY | 2025-01-16 23:05 | XMS_ITS | Encounter Summary ---
Author Organization [facility] Address [facility] [address] [place] [address] Phone Care Team Providers Care Doughnut Batter Mixer Name Role Phone Enrique Avila MD Primary Care Provider [phone] Encounter Details Date Type Department Care Team (Late st Contact Info) Description 12/11/2022 Procedure Pass [facility] [place] [facility] [address], [address], [address] [place] [id number] Social History Tobacco Use Types Packs/Day Years [...] on filedocumented in this encounter Care Teams Doughnut Batter Mixer Relationship Specialty Start Date End Date Enrique Avila MD PCP - General Cardiac Electrophysiology 10/23/22 documented as of this encounter Additional Source Comments The information contained in this document represents components of the legal health record. It is not the complete legal health record.[facility]
--- OUTSIDE RECORDS SUMMARY | 2025-01-16 23:05 | XMS_ITS | Encounter Summary ---
Author Organization [facility] Address [address] [address] Phone Care Team Providers Care Ski Topper Name Role Phone Enrique Avila MD Primary Care Provider [phone] Encounter Details Date Type Department Care Team (Late st Contact Info) Description 10/24/2022 Procedure Pass [facility] Cardiology Referral Images [address] [place] [address] Social History Tobacco Use Types Packs/Day Years [...] on filedocumented in this encounter Care Teams Ski Topper Relationship Specialty Start Date End Date Enrique Avlia MD PCP - General Cardiac Electrophysiology 10/23/22 documented as of this encounter Additional Source Comments The information contained in this document represents components of the legal health record. It is not the complete legal health record.[facility]
--- OUTSIDE RECORDS SUMMARY | 2025-01-16 23:05 | XMS_ITS | Encounter Summary ---
Author Organization [facility] Address [address] [place] [address] Phone Care Team Providers Care Internet Webmaster Name Role Phone Enrique Avila MD Primary Care Provider [phone] Encounter Details Date Type Department Care Team (Late st Contact Info) Description 03/10/2023 Procedure Pass [facility] Echo Lab [address] [place] [address] Social History Tobacco Use Types Packs/Day Years [...] on filedocumented in this encounter Care Teams Internet Webmaster Relationship Specialty Start Date End Date Enrique Avila MD PCP - General Cardiac Electrophysiology 10/23/22 documented as of this encounter Additional Source Comments The information contained in this document represents components of the legal health record. It is not the complete legal health record.[facility]
--- OUTSIDE RECORDS SUMMARY | 2025-01-16 23:05 | XMS_ITS | Encounter Summary ---
Author Organization [facility] Address [address] [place] [address] Phone Care Team Providers Care Cherry Sorter Name Role Phone Enrique Avila MD Primary Care Provider [phone]- [phone] Encounter Details Date Type Department Care Team (Latest Contact Info) Description 06/09/2023 [place]illary [place] [facility] [place] [address], 5th [address], [address] [place] [address] Maggie Ortiz, KIRSTIN [address] [place] [address] [email or web address] Paroxysmal atrial fibrillation (Primary Dx) Social [...] (06/09/2023 10:31 AM EDT) us Maggie Ortiz DEVELOPMENTAL MATHEMATICS INSTRUCTOR CV STRESS ORDERABLES Final R esult documented in this encounter Visit Diagnoses Diagnosis Paroxysmal atrial fibrillation- Primary Atrial fibrillation documented in this encounter Care Teams Cherry Sorter Relationship Specialty Start Date End Date Enrique Avila MD PCP - General Cardiac Electrophysiology 10/23/22 documented as of this encounter Additional Source Comments The information contained in this document represents components of the legal health record. It is not the complete legal health record.[facility]
--- OUTSIDE RECORDS SUMMARY | 2025-01-16 23:05 | XMS_ITS | Clinical Summary ---
Author Organization [facility] Address [address] [place] [address] Phone Care Team Providers Care Oceanographer Geological Name Role Phone Enrique Avila MD Primary Care Provider [phone]- [phone] Allergies No known active allergies Medications digoxin [...] 2000 ZOSTER VACCINES (1 of 2) 2000 OSTEOPOROSIS SCREENING INITI AL (ONE-TIME) 11/20/2015 INFLUENZA VACCINE (#1) 2024 COVID-19 VACCINE (1 - 2024-2 6 season) 2024 RSV VACCINE (1 - 1-dose 75+ series) 2025 HEPATITIS A VACCINES Aged Out No long [...] file Insurance [employer] PPO MEDICARE REPLACEMENT A[employer] O MEDICARE REPLACEMENT A[employer] PPO MEDICARE REPLACEMENT [employer] PPO MEDICARE REPLACEMENT [employer] PPO MEDICARE REPLACEMENT [employer] PPO MEDICARE REPLACEMENT Care Teams Oceanographer Geological Relationship Specialty Start Date End Date Enrique Avila MD PCP - General Cardiac Electrophysiology 10/23/22 Additional Source Comments The information contained in this document represents components of the legal health record. It is not the complete legal health record.[facility]
--- OUTSIDE RECORDS SUMMARY | 2025-01-16 23:05 | XMS_ITS | Data Portability ---
Author Organization [facility], [facility] Address [address] [place] [address] Care Team Providers Care Outsole Leveler Name Role Phone PARAMJIT SMITH Primary Care Provider [phone] Assessment No assessment recorded. Plan of Treatment Reminders Order Date Submit Date Provider Last Modified By Organization Details Last Modified Time Details Appointments None recorded. Lab rapid SARS CoV 2 Ag, QL IA, respiratory specimen 2022 023 [facility], [address] [place] [address], [id number], 3 10:28:00 Referral None recorded. Procedures None recorded. Surgeries None recorded. Imaging None recorded. Medication Orders Allergy Relief (fluticason e) 50 mcg/actuati on nasal spray,suspe nsion 2022 023 [id number] [address] [place], [address], 3 10:29:44 benzonatate 200 mg capsule 2022 023 [id number] [address] [place], [address], 3 10:29:43 prednisone 20 mg tablet 2022 023 [id number], [address] [place], [address], 3 10:29:44 prednisone 20 mg tablet 2022 023 [id number], [address] [place] [address], [address], 09:56:02 Patient TargetsNo targets recorded. Patient Instructions Encounter Date Encounter Id Patient Instructions Last Modified By Organization Details Last Modified Time 02/15/2022 [id number] As discussed in office cause of your [...] you today and thank you for choosing [facility] for your healthcare needs! Use your ALBUTEROL (ProAir/Ventolin). This medication is to be used every 4-6 hours as needed for cough, shortness of breath, or chest tightness. Possible side effects for this medication include feeling nervous, fast heart rate, and nausea. I have prescribed you a course of steroids for your asthma exacerbation. Asthma triggers to avoid: dust mites, indoor mold, pet dander, pollen, and outdoor mold by dusting and vacuuming home frequently. Also avoid exposure to strong odors, perfumes, chemicals, paint, cosmetics, sprays, and tobacco smoke. Patient to also avoid strenuous exercise, especially outside activities when cold weather and environmental allergens are increased. Recommendations: Dust and vacuum home frequently with a HEPA (high efficiency particulate air) filter. Add HEPA filters to central air conditioning and heating. Do not keep windows open. Please follow [...] [email or web address] Not available 02/15/2022 10:27:06 03/01/2022 [id number] cough: care instructions Not available 03/01/2022 10:28:00 [...] wear a mask. For travel guidance, see CDC s Travel webpage. Do not travel. Stay home and separate from others as much as possible. Use a separate bathroom, if possible. Take steps to improve ventilation at home, if possible. Don t share personal household items, like cups, [...] masking (see below). For travel guidance, see CDC s Travel webpage. Not available 03/01/2022 10:29:30 Reason for Referral None Reported. Results Created Date Observation Date Name Description Value Unit Range Abnormal Flag Note LastModifiedBy Organization Detail LastModifiedTime 03/01/1903/01/2022 rapid SARS CoV 2 Ag, QL IA, respi rator y speci men Unknown Analyte Normal =Negat aki Not Available [facility] [address] [place] [address], [id number], 03/01/2022 09:52:23 03/01/19 23 03/01/2022 rapid SARS CoV 2 Ag, QL IA, respi rator y speci men Unknown Analyte negati ve Not Available [facility] [address] [facility], [place], [address], 03/01/2022 09:52:23 Result Notes None recorded. Problems Name Problem SNOMED Code Status Onset Date Resolution Date Notes Provider Name and Address Organization Details Recorded Time Asthma 185168618 Active 2022 ADRIEN LUPICA null, PA - [facility] 3 09:26:28 Hypertensive disorder 85636142 Active 2022 ADRIEN LUPICA null, PA - [facility] 3 09:26:43 Gastroesophage al reflux disease 298175410 Active 2022 ADRIEN LUPICA null, PA - [facility] 3 09:26:56 Arthritis 5521261 Active 2022 ADRIEN LUPICA null, PA - [facility] 3 09:27:07 Depressive disorder 13729038 Active 2022 ADRIEN LUPICA null, PA - [facility] 3 09:27:13 Urinary incontinence 428636171 Active 2022 ADRIEN LUPICA null, PA - [facility] 3 09:27:23 Atrial fibrillation 43648518 Active 2022 ADRIEN LUPICA null, PA - [...] weight Body temperature Respiratory rate Oxygen saturation Heart rate Systolic And Diastolic Provider Name and Address Organization Details Last Updated DateTime 3 157.48 cm 24.7 kg/m2 64292.9 7 g 97.1 [degF] 16 /min 100 % 70 /min 163/83 mm[Hg] ADRIEN PEDERSON PA - [facility] 3 09:33:04 Date Recorded Body height Body temperature Oxygen saturation Heart rate Respiratory rate Body mass index (BMI) Body weight Systolic And Diastolic Provider Name and Address Organization Details Last Updated DateTime 3 157.48 cm 97 [degF] 98 % 63 /min 16 /min 24.7 kg/m2 92999.9 7 g 162/81 mm[Hg] ADRIEN PEDERSON PA - [facility] 3 09:54:56 Social History Question Answer Notes LastModified by [employer] Details LastModified Time Tobacco Smoking Status Former Smoker ADRIEN PEDERSON jose c PA - [facility] 02/15/2022 09:29:00 Have You Recently Traveled Abroad? No [email or web address] Information not available 02/15/2022 Sex: Unknown Functional Status Question Answer Note LastModified by [employer] Details LastModified Time Do you use any illicit or recreational drugs? No [email or web address] Information not available 02/15/2022 Do you or have you ever used any other forms of tobacco or nicotine? No [email or web address] Information not available 02/15/2022 What is your level of alcohol consumption? None [email or web address] Information not available 02/15/2022 Mental Status None recorded. Family History Relationship Description Onset Age of this Age Resolved Age Notes LastModified by Organization Details LastModified Time Father Asthma [email or web address] Not available 02/15/2022 09:28:09 Daughter Asthma x2 daught ers [email or web address] Not available 02/15/2022 09:28:09 Medical History No medical history recorded. Gynecological HistoryNo gynecological history recorded. Obstetrics History GPAL:G 0 P 0 0 0 0 Past Encounters Encounter ID Performer Location Encounter Start Date Encounter Closed Date Diagnosis/Indication Diagnosis SNOMED-CT Code Diagnosis ICD10 Code Diagnosis IMO Codes Diagnosis Note [id number] [facility] [address] [place] [address] 03/25/2019 17:45:10 03/25/2019 18:08:13 [id number] [facility] [address] [place] [address] 05/27/2018 18:40:43 05/27/2018 19:22:07 [id number] [facility] [address] [place] [address] 02/27/2019 14:56:29 02/27/2019 15:42:02 [id number] [facility] [address] [place] [address] 10/30/2017 19:21:18 10/30/2017 19:55:57 [id number] [facility] [address] [place] [address] 10/02/2018 18:49:34 10/02/2018 19:27:17 [id number] [facility] [address] [place] [address] 12/14/2020 18:12:30 12/14/2020 19:34:48 [id number] [facility] [address] [place] [address] 11/09/2018 19:59:54 11/09/2018 20:41:23 [id number] [facility] [address] [place] [address] 10/06/2021 13:31:31 10/06/2021 14:40:09 [id number] [facility] [address] [place] [address] 03/20/2017 19:22:24 03/20/2017 19:56:42 [id number] [facility] [address] [place] [address] 03/12/2017 17:09:00 03/12/2017 18:31:15 [id number] [facility] [address] [place] [address] 11/22/2017 13:22:24 11/22/2017 14:43:05 [id number] [facility] [address] [place] [address] 01/02/2018 18:21:27 01/02/2018 19:54:08 [id number] [facility] [address] [place] [address] 02/15/2017 17:19:32 02/15/2017 18:04:10 [id number] [facility] [address] [place] [address] 01/23/2018 18:56:39 01/23/2018 19:33:12 [id number] [facility] [address] [place] [address] 07/03/2017 14:51:55 07/03/2017 15:50:48 [id number] ANIYA RAZO [facility] [address] [place] [address] 02/15/2022 09:04:52 02/15/2022 10:31:22 Exacerbation of intermittent asthma 823330767 J45.21 Follow up with your pulmonolog ist as scheduled at the end of this month. [id number] Brady Villarreal NP [address] [address] [place] [address] 03/01/2022 08:38:51 03/01/2022 10:36:25 Exposure to SARS-CoV-2 737187131 Z20.822 Acute bronchitis 0409948 2 J20.9 Health Concerns Section Related Observation LastModified by Organization Detai ls LastModified Time None Recorded Concern Status LastModified by Organization Details LastModified Time None Recorded Advance Directives Directive None Recorded Payers Insurance Date Sequence Insurance Name Policy Number Policy Hay Covered Member ID Hay Member ID Guarantor Name 03/01/2022 [facility] (MEDICARE REPLACEMENT/A DVANTAGE - PPO) Shilpa Hartman [id number] Shilpa Hartman 03/01/2022 1 [employer] (MEDICARE REPLACEMENT/A DVANTAGE - PPO) [id number] Shilpa Hartman [id number] Shilpa Hartman Notes Date Note Type Note [...] for same. Has apt with her cooker helper in a couple weeks for f/u. Denies SOB. Had wheezing this morning which resolved. Notes wheezing seems to be worse in the mornings, and relates this to post nasal drip. No LE edema. ANIYA ARCEO JD [address] [facility] [place], [address], PA - [facility] 02/15/2022 10:31:07 03/01/2022 text/html CongestionReport ed by Patientfollow up for chest congestion, nasal congestion with post nasal drip x 3 days. denies any fever or fever with chills. no SOB or respiratory distress. CoughReported by Patient Brady Villarreal NP [address] [place], [address], PA - [facility] 03/01/2022 10:30:08 OBGyn Episode No OBEpisode recorded.
--- OUTSIDE RECORDS SUMMARY | 2025-01-16 23:05 | XMS_ITS | Encounter Summary ---
Author Organization [facility] Address [facility] [employer] [facility] [address] [place] [address] Phone Care Team Providers Care Computer Repair Engineer Name Role Phone Enrique Avila MD Primary Care Provider [phone] Encounter Details Date Type Department Care Team (Late st Contact Info) Description 12/05/2022 Procedure Pass [facility] EP Pacer Lab [address] [facility], [address] 1, Room [address] [place] [id number] Social History Tobacco Use Types Packs/Day Years [...] on filedocumented in this encounter Care Teams Computer Repair Engineer Relationship Specialty Start Date End Date Enrique Avila MD PCP - General Cardiac Electrophysiology 10/23/22 documented as of this encounter Additional Source Comments The information contained in this document represents components of the legal health record. It is not the complete legal health record.[facility]
--- OUTSIDE RECORDS SUMMARY | 2025-01-16 23:05 | XMS_ITS | Clinical Summary ---
Author Organization [facility] Address [address] [place] [address] Care Team Providers Care Survey Engineer Name Role Phone None, Provider AUTOMOTIVE TECHNICIAN INSTRUCTOR Primary Care Provider Unavaila ble Allergies No [...] 1950 Fall Risk Screening 11/20/2015 COVID-19 Vaccine (2024-2 6 season) 2024 02/05/2023, 05/25/2021, 12/20/2020, Additional history exists RSV Immunization ( o r 60+ Years) (1 - 1-dose 75+ series) 2025 Insurance [employer] Care Teams Survey Engineer Relationship Specialty Start Date End Date None, Provider, AUTOMOTIVE TECHNICIAN INSTRUCTOR PCP - General 08/13/24
== END 2025-01-16 14:40 | disposition home or self-care (01) ==
LOC: HO.HPS 14:11
PROVIDERS: PCP Internal Medicine; Visit Provider Internal Medicine Pulmonary Disease
DX: R60.0 Localized edema (principal); J45.909 Unspecified asthma, uncomplicated
CPT/HCPCS: 99214; G2211

== ENCOUNTER → 2025-01-16 14:10 | Outpatient (BNVA) | payer MEDICARE, SELFPAY ==
[2023-09-24 15:56] VITALS: BMI 25.2
== END ==
PROVIDERS: PCP Internal Medicine; Visit Provider Internal Medicine Pulmonary Disease
DX: J45.909 Unspecified asthma, uncomplicated (principal); R60.0 Localized edema; Z79.899 Other long term (current) drug therapy; Z87.891 Personal history of nicotine dependence
CPT/HCPCS: 99212

== ENCOUNTER 2025-01-30 12:15 | Outpatient (AMB) | payer MEDICARE, SELFPAY ==
[2023-09-24 15:56] VITALS: BMI 25.2
--- OUTSIDE RECORDS SUMMARY | 2023-10-14 11:00 | XMS_ITS ---
Author Organization [facility] Address [address] [place] [id number] Care Team Providers Care Glass Glazier Name Role Phone Mayuri PASCUAL, Eddie Primary Care Provider Lalo Hillman [phone] REASON FOR VISIT Patient presents today for nausea, vomitting, Encounters Encounter Location Date Provider Diagnosis [facility] [address] [address] 10/14/2023 Lalo Vaughn Plan Of Treatment No Information Progress Notes * DUNIA HARTMANEDOB:1950 (74 yo F)Acc No.[id number]:10/14/2023 Progress Notes Patient: DUNIA CARDOSO Provider: Chiquita Vaughn MD :1950 A ge:72 Y S ex:Female Date:10/14/2023 Address:[address] [place], [place] [id number] Pcp:Eddie Messina MD Subjective: * Chief Complaints: * P atient presents today for nausea, vomitting, * The named appointment provid er may or may not be the originator of this progress note, and it is not deemed complete until electronically signed by the appointment provider. Sign off status: Pending * Provider: Chiquita Vaughn MD Date: 0 10/14/2023 Generated for Printi ng/Faxing/eTransmitting on: 1 04/02/2024 03:29 PM EST
--- OUTSIDE RECORDS SUMMARY | 2024-05-17 09:00 | XMS_ITS ---
Author Organization [facility] Address [address] [place] [address] Care Team Providers Care Banking Supervisor Name Role Phone Eddie Messina MD Primary Care Provider Janey Fontenot [phone] REASON FOR VISIT No PW Encounters Encounter Location Date Provider Diagnosis [facility] [address] [place] [address] 05/17/2024 Janey Allen Plan Of Treatment No Information Progress Notes * Aroldo HARTMANieDOB: [birth year] (74 yo F)Acc No.[id number]:05/17/2024 Progress Notes Patient: Al CARDOSO Provider: Denise Allen DPM :1950 A ge:73 Y S ex:Female Date:05/17/2024 Address:[address] [place], [place] [id number] Pcp:Eddie Messina MD Subjective: * Chief Complaints: * 1 . No PW. * Medical History: Objective: * Vitals: Assessment: Plan: * Treatment: * Images: * The named appointment provid er may or may not be the originator of this progress note, and it is not deemed complete until electronically signed by the appointment provider. Sign off status: Pending * Provider: Denise Allen DPM Date: 0 05/17/2024 Generated for Printi frida/Rajang/eTransmitting on: 1 04/02/2024 03:29 PM EST
[2025-01-30 12:56] VITALS: BP 120/70; PULSE 57; O2SAT 100; BMI 23.8
--- NOTE | 2025-01-30 12:56 | MHC.OFFWIV ---
Intake Vital Signs 01/30/25 12:56 Height 5 ft 2 in Weight 130 lb BMI 23.8 BP 120/70 Blood Pressure Location Lt brachial Position Sitting Pulse 57 Pulse Source Pulse Oximeter Pulse Oximetry (%) 100 Oxygen Delivery Method Room Air Intake Visit Reasons: EP Bumps in hair Intake Note: Patient presents c/o bugs in hair & on her body x2 weeks. Patient Tobacco Use Status: Former Tobacco user Allergies No Known Allergies (No Known Allergies*) Allergy (Verified 01/30/25 13:00) HPI HPI Comments History of Present Illness Details 74 y/o female presents to the walk-in clinic with c/o generalized pruritus x 2 weeks. Patient was recently admitted at [facility] for 5 days for pneumonia and reports itching began shortly after hospital discharge. She reports seeing small ?bed bugs? crawling over her body, including her scalp. She purchased OTC NIX and has been using it with some relief. Patient reports she washed all clothes, shoes, and bedding immediately upon discharge. States itching is severe and interfering with sleep, reports difficulty falling asleep due to persistent pruritus. Denies any visible rash or identifiable bite hilton. Denies fevers, chills, nausea, or vomiting. [facility] Medical History (Updated 01/30/25 @ 13:53 by Peyton Waddell NP) Generalized pruritus Left wrist injury Acute respiratory disease Paroxysmal A-fib Hypertension Hx of uterine prolapse Arthritis Hx of transfusion of packed red blood cells GERD (gastroesophageal reflux disease) Anxiety Depression History of cardioversion MILY (obstructive sleep apnea) SOB (shortness of breath) Anemia Cough Orthopnea Post covid-19 condition, unspecified Loculated pleural effusion MSSA bacteremia Atrial fibrillation, new onset Constipation Overweight (BMI 25.0-29.9) UTI (urinary tract infection) Asthma Malabsorption due to intolerance, not elsewhere classified Surgical History Hx of total shoulder replacement History of esophagogastroduodenoscopy (EGD) H/O colonoscopy History of total replacement of right hip History of bunionectomy Left inguinal hernia History of total right hip arthroplasty S/P laparoscopic sleeve gastrectomy Social History Household Members: Family Household Members Other:: Danny Housing: House Are you a primary careers counsellor to a significant other at home: No Do you presently have visiting nurse or other home services: No Alcohol intake: never Comment: refused bed alarm Patient Tobacco Use Status: Former Tobacco user Tobacco use type: Cigarette Years Smoked: 16 years Second Hand Smoke Exposure: No service: No 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al status: retired 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 of Systems Const All systems reviewed & are unremarkable except as noted in HPI and below Physical Exam Vital Signs: Last Vital Signs Pulse 57 01/30/25 12:56 BP 120/70 01/30/25 12:56 Pulse Ox 100 01/30/25 12:56 Oxygen Delivery Method Room Air 01/30/25 12:56 BMI result Body Mass Index 23.8 Const General: no acute distress Nutritional Appearance: well nourished Orientation/consciousness: patient oriented x3 HEENT Head: Yes normal to inspection, Yes normocephalic and Yes other (Dry Scalp, no visible bugs) General nose exam: Normal external nose present Face and sinus: Yes normal facial exam Mouth: moist mucous membranes Throat: Yes uvula midline Resp Effort & Inspection: normal respiratory effort Cardio Rate: regular rate Skin Other: No visible rash, erythema, urticaria, or excoriations noted on exposed skin. No obvious bite hilton observed. General skin exam: no rashes or lesions noted Neuro General: patient oriented x3, gait normal and moves all extremities Psych Speech and movement: Normal speech and movement present Assessment & Plan Assessment & Plan (1) Generalized pruritus: Code(s): L29.9 - Pruritus, unspecified Plan: Possible parasitic infestation vs delusional Parasitosis vs post-hospital exposure (bed bugs vs lice). Ordered Permethrin cream. Ordered Hydroxyzine BID for Itching. Recommended topical emollients and soothing lotions to reduce skin irritation Reinforced environmental measures: continued laundering of bedding/clothing in hot water and high-heat drying. Advised close monitoring for development of rash, bites, or worsening symptoms Follow up with PCP or dermatology if symptoms persist or worsen ER precautions discussed for new systemic symptoms (fever, worsening respiratory symptoms, skin infection) Medications: New permethrin 5% Apply second treatment 14 days after first treatment if live Bugs still alive. 1 appl topical Q14D 60 grams 0RF 2 doses L29.9 - Pruritus, unspecified hydroxyzine HCl 25 mg PO BID 30 tabs 0RF itching L29.9 - Pruritus, unspecified Coding Level of Care Code Est Pt Level 4 (58775) Diagnoses Generalized pruritus L29.9 Time Spent (min) 20
--- OUTSIDE RECORDS SUMMARY | 2025-01-30 15:29 | XMS_ITS | Encounter Summary ---
Author Organization [facility] Address [address] [place] [address] Phone Care Team Providers Care Learning Support Resource Room Teacher Name Role Phone Eddie Messina MD Primary Care Provider [phone] Encounter Details Date Type Department Care Team (Late Contact Info) Description 11/02/2024 Documentation Only [facility], [address] [place] [address] J Luis Strauss [place] [address] [place] [address] Social History Tobacco Use Types Packs/Day Years Used Date Smoking Tobacco: Former Cigarettes 0 Q uit: 01/20/1985 Comments Unknown Sex and Gender Information Value Date Recorded Sex Assigned at Not on file Legal Sex Female 4:50 PM EST Gender Identity Not on file Sexual Orientation Not on file documented as of this encounter Plan of Treatment Upcoming Encounters Date Type Department Care Team (Late st Contact Info) Description 06/06/2025 2:15 PM EDT Office Visit [facility] [address] [place] [address] Ever Hussein MD [address] [place] [address] [place] [address] documented as of this encounter Visit Diagnoses Not on filedocumented in this encounter Care Teams Learning Support Resource Room Teacher Relationship Specialty Start Date End Date Eddie Messina MD [employer]KE TRUCK DRIVER HELPER [address] [place] [address] [address] [place], [place] PCP - General Internal Medicine 05/11/20 documented as of this encounter
--- OUTSIDE RECORDS SUMMARY | 2025-01-30 15:29 | XMS_ITS | Patient Health Record ---
Author Organization [facility] Address [address] [place] [address] Care Team Providers Care Swimmer Name Role Phone Eddie Messina MD Primary Care Provider Lalo Hillman [phone] Reason For Referral No Information Medications Medication SIG (Take, Route, Frequency, Duration) Notes Start Date End Date Status Advair Diskus 250-50 MCG/DOSE Aerosol Powder Breath Activated INHALE 1 PUFF BY MOUTH 2 TIMES A DAY Inhalation; Duration: 90 Active Singulair 10 MG Tablet 1 tablet Orally O nce a day Active Claritin 10 MG Tablet 1 tablet Orally On ce a day Active oxyBUTYnin Chloride ER 10 MG Tablet Extended Release 24 Hour TAKE 1 TABLET BY MOUTH EVERY DAY IN THE MORNING Oral; Duration: 90 Active lamoTRIgine 200 MG Tablet TAKE 1 TABLET BY MOUTH TWICE A DAY Oral; Duration: 90 Active Carafate 1 GM/10ML Suspension 10 ml on an empty stomach Orally Twice a day Active Wellbutrin SR 200 MG Tablet Extended Release 12 Hour Orally Active Vitamin D 1000 UNIT Tablet 1 tablet Orally Once a day Not-Taking/PRN Metoprolol Succinate ER 25 MG Tablet Extended Release 24 Hour 1 tablet Orally Once a day Active Pantoprazole Sodium 40 MG Tablet Delayed Release 1 tablet Once a day Active Gabapentin 100 MG Capsule 1 capsule Orally Three times a day Active Atorvastatin Calcium 40 MG Tablet TAKE 1 TABLET BY MOUTH EVERY DAY Oral; Duration: 30 Active ProAir HFA 108 (90 Base) MCG/ACT Aerosol Solution INHALE 2 PUFFS BY MOUTH 4 TIMES A DAY Inhalation; Duration: 25 Active Immunizations Vaccine Route Administration Date Status Comme nts Influenza Unknown 01/12/2018 Refused Influenza Unknown 06/04/2018 Refused Social History Social History Additional Details Category Social Info Options Details Miscellaneous: Marital status: Occupation: unemployed, Caffeine: 3-4 cups per day Section Notes: Quit smoking and alcohol ove r 30 years ago Quit smoking and alcohol ove r 30 years ago Quit smoking and alcohol ove r 30 years ago Problems Problem Type SNOMED Code ICD Code Onset Dates Problem Status W/U Status Risk Notes Problem Screening for malignant neoplasm of colon (083853095) Encounter for screening for malignant neoplasm of colon (Z12.11) Active confirmed Problem History of adenomatous polyp of colon (129297770) History of adenomatous polyp of colon (Z86.010) Active confirmed Problem Screening for malignant neoplasm of rectum (148096410) Encounter for screening for malignant neoplasm of rectum (Z12.12) Active confirmed Problem Gastroesophageal reflux disease with esophagitis (677459998) Gastroesophageal reflux disease with esophagitis (K21.0) Active confirmed Problem Gastroesophageal reflux disease (249701080) Gastroesophageal reflux disease, esophagitis presence not specified (K21.9) Active confirmed Problem Hiatal hernia (66292620) Hiatal hernia (K44.9) Active confirmed Problem Erosive esophagitis (65982721) Erosive esophagitis (K22.10) Active confirmed Problem Iron deficiency anemia (47560580) Iron deficiency anemia, unspecified iron deficiency anemia type (D50.9) Active confirmed Problem Anemia (039188312) Anemia due to other cause, not classified (D64.89) Active confirmed Problem Irritable bowel syndrome (33757315) Irritable bowel syndrome with both constipation and [...] End Date [employer] [address] [facility] [place] [address] [id number] DUNIA HARTMAN Self - patient is the insured Medical (General) History Medical History History ICD Code Tubular adenomas removed in 2004; negative colonoscopy 09/2010 and 07/2017, except for diverticulosis Denies CO,DM,CVA,Lung disease,renal dise ase Negative cardiac cath at [facility] [place] 2011 Arthritis- goes [...] Bariatric surgery with sleeve gastrectom y at [facility] 04/13/2018 Hiatal hernia repair at [facility] 04/13/2018
--- OUTSIDE RECORDS SUMMARY | 2025-01-30 15:30 | XMS_ITS | Clinical Summary ---
Author Organization [facility] Address [address] [place] [address] Phone Care Team Providers Care Help Desk Intern Name Role Phone Eddie Messina MD Primary Care Provider [phone] Social History Tobacco Use Types Packs/Day Years [...] 2) 2000 Depression Screening 02/10/2024 COVID-19 Vaccine ( - 2024-2 6 season) 2024 Influenza Vaccine (#1) 2024 Falls [...] patient's age to complete this topic Insurance [employer] MEDICARE ADVANTAGE Care Teams Help Desk Intern Relationship Specialty Start Date End Date Eddie Messina MD [address] [place] [address] PCP - General Internal Medicine 10/18/24
--- OUTSIDE RECORDS SUMMARY | 2025-01-30 15:30 | XMS_ITS | Encounter Summary ---
Author Organization [facility] Address Formerly [facility] [employer] [facility] [address] [place] [address] Phone Care Team Providers Care Rn Gyn Name Role Phone Enrique Avila MD Primary Care Provider [phone]- [phone] Encounter Details Date Type Department Care Team (Late st Contact Info) Description 12/05/2022 Procedure Pass [facility] Pacer Lab [address] [facility], Floor 1, Room [address] [place] [phone] Social History Tobacco Use Types Packs/Day Years [...] on filedocumented in this encounter Care Teams Rn Gyn Relationship Specialty Start Date End Date Enrique Avila MD PCP - General Cardiac Electrophysiology 10/23/22 documented as of this encounter Additional Source Comments The information contained in this document represents components of the legal health record. It is not the complete legal health record.[facility]
--- OUTSIDE RECORDS SUMMARY | 2025-01-30 15:30 | XMS_ITS | Encounter Summary ---
Author Organization [facility] Address [address] [address] Phone Care Team Providers Care Public Works Technician Name Role Phone Enrique Avila MD Primary Care Provider [phone] Encounter Details Date Type Department Care Team (Late st Contact Info) Description 10/24/2022 Procedure Pass [facility] Cardiology Referral Images [address] [place] [address] Social History Tobacco Use Types Packs/Day Years [...] on filedocumented in this encounter Care Teams Public Works Technician Relationship Specialty Start Date End Date Enrique Avila MD PCP - General Cardiac Electrophysiology 10/23/22 documented as of this encounter Additional Source Comments The information contained in this document represents components of the legal health record. It is not the complete legal health record.[facility]
--- OUTSIDE RECORDS SUMMARY | 2025-01-30 15:30 | XMS_ITS | Encounter Summary ---
Author Organization [facility] Address [facility] [employer] [facility] [address] [place] [address] Phone Care Team Providers Care Cardiac Monitor Technician Name Role Phone Enrique Avila MD Primary Care Provider [phone]- [phone] Encounter Details Date Type Department Care Team (Late st Contact Info) Description 03/10/2023 Procedure Pass [facility] [address] [place] [address] Social History Tobacco Use Types Packs/Day Years [...] on filedocumented in this encounter Care Teams Cardiac Monitor Technician Relationship Specialty Start Date End Date Enrique Avila MD PCP - General Cardiac Electrophysiology 10/23/22 documented as of this encounter Additional Source Comments The information contained in this document represents components of the legal health record. It is not the complete legal health record.[facility]
--- OUTSIDE RECORDS SUMMARY | 2025-01-30 15:30 | XMS_ITS | Clinical Summary ---
Author Organization [facility] Address [address] [place] [address] Care Team Providers Care Account Development Manager Name Role Phone None, Provider HOT DIE PRESS OPERATOR Primary Care Provider Unavaila ble Allergies No [...] 75+ series) 2025 Insurance [employer] Care Teams Account Development Manager Relationship Specialty Start Date End Date None, Provider, HOT DIE PRESS OPERATOR PCP - General 08/13/24
--- OUTSIDE RECORDS SUMMARY | 2025-01-30 15:30 | XMS_ITS | Encounter Summary ---
Author Organization [facility] Address [address] [place] [address] Phone Care Team Providers Care Diesel Mechanic Construction Name Role Phone Enrique Avila MD Primary Care Provider [phone]- [phone] Encounter Details Date Type Department Care Team (Latest Contact Info) Description 06/09/2023 Ancillary Orders [facility] Cardiology Arrhythmia Service at the [address], 5[address] Floor, [address] [place] [address] Maggie Ortiz, TOWING PILOT [address] [place] [address] [email or web address] Paroxysmal atrial fibrillation (Primary Dx) Social History [...] Exercise Not Performed (06/09/2023 10:31 AM EDT) Maggie Ortiz TOWING PILOT CV STRESS ORDERABLES Final R esult documented in this encounter Visit Diagnoses Diagnosis Paroxysmal atrial fibrillation- Primary Atrial fibrillation documented in this encounter Care Teams Diesel Mechanic Construction Relationship Specialty Start Date End Date Enrique Avila MD PCP - General Cardiac Electrophysiology 10/23/22 documented as of this encounter Additional Source Comments The information contained in this document represents components of the legal health record. It is not the complete legal health record.[facility]
--- OUTSIDE RECORDS SUMMARY | 2025-01-30 15:30 | XMS_ITS | Clinical Summary ---
Author Organization [facility] Address [address] [place] [address] Phone Care Team Providers Care Research Support Specialist Name Role Phone Enrique Avila MD Primary Care Provider [phone]- [phone] Allergies No known active allergies Medications digoxin [...] REPLACEMENT [employer] PPO MEDICARE REPLACEMENT Care Teams Research Support Specialist Relationship Specialty Start Date End Date Enrique Avila MD PCP - General Cardiac Electrophysiology 10/23/22 Additional Source Comments The information contained in this document represents components of the legal health record. It is not the complete legal health record.[facility]
--- OUTSIDE RECORDS SUMMARY | 2025-01-30 15:30 | XMS_ITS | Encounter Summary ---
Author Organization [facility] Address [facility] [employer] [facility] [address] [place] [address] Phone Care Team Providers Care Partridge Farmer Name Role Phone Enrique Avila MD Primary Care Provider [phone]- [phone] Encounter Details Date Type Department Care Team (Late st Contact Info) Description 12/11/2022 Procedure Pass [facility] Pacer Lab [address] [facility], Floor 1, Room [address] [place] [phone] Social History Tobacco Use Types Packs/Day Years [...] on filedocumented in this encounter Care Teams Partridge Farmer Relationship Specialty Start Date End Date Enrique Avila MD PCP - General Cardiac Electrophysiology 10/23/22 documented as of this encounter Additional Source Comments The information contained in this document represents components of the legal health record. It is not the complete legal health record.[facility]
--- OUTSIDE RECORDS SUMMARY | 2025-01-30 15:30 | XMS_ITS | Clinical Summary ---
Author Organization [facility], Address [address] [facility] [address] [place] [address] Phone Care Team Providers Care Turner And Former Automatic Name Role Phone Eddie Messina MD Primary Care Provider [phone] Allergies No known active allergies Medications albuterol [...] Active Problems Problem Noted Date Diagnosed Date Anemia 11/22/2024 Bipolar disorder 11/22/2024 Heart failure with normal ejection fraction 11/09 Stage 3a chronic kidney disease 11/22/2024 terminal supervisor use of nonsteroidal anti-inflammatorie s 11/22/2024 Paroxysmal atrial fibrillation 03/11/2023 Overview (11/22/2024): PAF initially diagnosed in July of 2019 Initial DCCV February or March 2020 Recurred fall On digoxin Started flecainide 11/21/2022 S/P successful DCCV 12/11/2022 Symptomatic CHADS/VASC score of 3 (hypertension, age and gender) on eliquis Hypercalcemia 03/21/2020 Hypertensive disorder 03/21/2020 Encounters Date Type Department Care Team Description 11/22/2024 3:00 PM EDT Office Visit [facility] [address] [place] [address] [facility] [place] [address] Ever Hussein MD terminal supervisor use of nonsteroidal anti-inflammatories (Primary Dx); Stage 3a chronic kidney disease (HCC); Hypertensive disorder; Heart failure with normal ejection fraction (HCC) 11/02/2024 Documentation Only [facility] [place], [address] [place] [address] J Luis Strauss MA from Last 3 Months Immunizations Immunization Administration Dates Next Due Influenza Split High Dose Pr eservative Free IM 10/26/2018 Influenza Whole 12/24/2018 Pfizer SARS-COV-2 12/20/2020,06/03/2020,05/02/19 21 Pneumococcal Conjugate 13-Valent 07/21/2018,05/11 Pneumococcal Polysaccharide 02/05/2023, 9 Shingrix 10/26/2018 Tdap 07/21/2018 Zoster 12/14/2018 Family History Medical History Relation Comments Diabetes [...] 05/11/2020 1:23 PM EDT Plan of Treatment Upcoming Encounters Date Type Department Care Team (Late st Contact Info) Description 06/06/2025 2:15 PM EDT Office Visit [facility] [address] [place] [address] Ever Hussein MD [address] [place] [address] Health Maintenance Due Date Last Done Comments [...] patient's age to complete this topic Insurance BC[employer] A[employer]na [facility] Adv PPO ([id number]) Care Teams Turner And Former Automatic Relationship Specialty Start Date End Date Eddie Messina MD [employer] [address] [place] [address] [place], [place] PCP - General Internal Medicine 05/11/20
--- OUTSIDE RECORDS SUMMARY | 2025-01-30 15:30 | XMS_ITS | Encounter Summary ---
Author Organization [facility] Address [address] [place] [address] Care Team Providers Care Cabin Crew Name Role Phone Eddie Messina MD Primary Care Provider [phone] Encounter Details Date Type Department Care Team (Late st Contact Info) Description 10/18/2024 Lab Requisition [facility] - Main Lab [address] [facility] [address] Danielle Callahan PA [address] [place], [place] [id number] Urinary tract infection, site not specified Social [...] ssp pneumoniae(A) NAHID 10/20/2024 10:31 AM EDT [facility] Comment: This is an edited [...] MICROBIOLOGY - GENERAL ORD ERABLES Final Result [facility] H[facility]PITAL LAB [address] [place] [address], documented in this encounter Visit Diagnoses Diagnosis Urinary tract infection, site not specified documented in this encounter Care Teams Cabin Crew Relationship Specialty Start Date End Date Eddie Messina MD [address] [place] [address] PCP - General Internal Medicine 10/18/24 documented as of this encounter
--- OUTSIDE RECORDS SUMMARY | 2025-01-30 15:30 | XMS_ITS | Encounter Summary ---
Author Organization [facility] Address [address] [place] [address] Phone Care Team Providers Care Compliance Nurse Name Role Phone Enrique Avila MD Primary Care Provider [phone] Encounter Details Date Type Department Care Team ([facility] st Contact Info) Description 12/11/2022 Telephone [facility] Cardiology Arrhythmia Service at the [address], 5[address] Floor, [address] [place] [address] Andrew Obregon MD [address] [place] [address] [email or web address] Social History Tobacco Use Types Packs/Day [...] on filedocumented in this encounter Care Teams Compliance Nurse Relationship Specialty Start Date End Date Enrique Avila MD PCP - General Cardiac Electrophysiology 10/23/22 documented as of this encounter Additional Source Comments The information contained in this document represents components of the legal health record. It is not the complete legal health record.[facility]
--- OUTSIDE RECORDS SUMMARY | 2025-01-30 15:30 | XMS_ITS | Patient Health Record ---
[facility] Address [address] [facility] [place] [address] Care Team Providers Care Construction Ironworker Name Role Phone Eddie Messina MD Primary Care Provider Janey Fontenot Unavailable [phone] Allergies No Known Allergies Reason For Referral [...] Status Risk Notes Problem Acquired hallux valgus (67374573) Hallux valgus (acquired), left foot (M20.12) Active confirmed Problem Acquired hammer toe of left foot ([id number] 103) Hammer toe of left foot (M20.42) Active confirmed Vital Signs Blood pressure diastolic 60 mm Hg 07/22/2024 Height 5ft 2in in 07/22/2024 Blood pressure systolic 110 mm Hg 07/22/2024 Weight 130 lbs 07/22/2024 BMI 23.77 kg/m2 07/22/2024 Encounters Encounter Location Date [facility] [address] 07/22/2024 Janey Allen Pain in left foot M79.672 ; Hallux valgus (acquired), left foot M20.12 ; Pain in left ankle and joints of left foot M25.572 ; Bursitis of left foot M77.52 ; Hammer toe of left foot M20.42 and Tinea unguium B35.[address] [facility] [address] 03/08/2024 Janey Allen [address] [address] 05/10/2024 [facility] [address] 05/27/2024 Janey Allen Assessments Encounter Date Diagnosis [...] Date Coverage End Date [employer] [address] [place] [address] [id number] Al Hartman Self - patient is the insured 4 Medical (General) History Medical History History ICD Code Anxiety Arthritis asthma Cataracts Depression Fibromyalgia Hiatal hernia High Blood Pressure Paralysis Cardiac matchbone Surgical History Surgery Date(Month/Year) left knee right hip bunion repair groin hernia Hospitalization History Reason Date(Month/Year) [facility] - Chest pain 05/10/2024
--- OUTSIDE RECORDS SUMMARY | 2025-03-12 19:00 | XMS_ITS | Clinical Summary ---
Author Organization Unknown Care Team Providers [employer] Vice President Name Role Phone SARAH PASCUAL, PARAMJIT Unavailable Unavailable JAIME RN, ADDIE Unavailable Unavailab Ramos PT, JERAMY Unavailable Unavailable KADE USPS LETTER CARRIER, SONIA Unavailable Unavailable PENDDONNA FORESTRY SUPPORT SPECIALIST, ELIZABETH Unavailable Unavailable Payers Payer Name Policy Type Policy Number Effective Date Expira tion Date [id number] Problems Condition Name Condition Details Condition Category Status Onset Date Resolution Date Last Treatment Date Treating Clinician Comments OTHER PNEUMONIA, UNSPECIFIED ORGANISM Active 2024-02 00:00: 00 CHRONIC OBSTRUCTIVE PULMONARY DISEASE W (ACUTE) EXACERBATION Active 2024-02 00:00: 00 UNSPECIFIED ASTHMA WITH (ACUTE) EXACERBATION Active 2024-02 00:00: 00 HYPERTENSIVE HEART DISEASE WITH HEART FAILURE Active 2024-02 00:00: 00 ACUTE ON CHRONIC DIASTOLIC (CONGESTIVE) HEART FAILURE Active 2024-02 00:00: 00 ATHSCL HEART DISEASE OF [place] CORONARY ARTERY W/O ANG PCTRS Active 2024-02 00:00: 00 PAROXYSMAL ATRIAL FIBRILLATION Active 2024-02 00:00: 00 ATRIOVENTRIC ULAR BLOCK, FIRST DEGREE Active 2024-02 00:00: 00 TAKOTSUBO SYNDROME Active 2024-02 00:00: 00 UNILATERAL PRIMARY OSTEOARTHRIT IS, RIGHT HIP Active 2024-02 00:00: 00 Oth intvrt disc degen, lum rgn w/o lum bck or lw extrm pain Active 2024-02 00:00: 00 OTH DISRD OF BONE DENSITY AND STRUCTURE, UNSPECIFIED SITE Active 2024-02 00:00: 00 BIPOLAR DISORDER, UNSPECIFIED Active 2024-02 00:00: 00 ANEMIA, UNSPECIFIED Active 2024-02 00:00: 00 DIAPHRAGMATI C HERNIA WITHOUT OBSTRUCTION OR GANGRENE Active 2024-02 00:00: 00 PURE HYPERCHOLEST EROLEMIA, UNSPECIFIED Active 2024-02 00:00: 00 HYPERCALCEMI A Active 2024-02 00:00: 00 GASTRO-ESOPH AGEAL REFLUX DISEASE WITHOUT ESOPHAGITIS Active 2024-02 00:00: 00 REPEATED FALLS Active 2024-02 00:00: 00 SOLITARY PULMONARY NODULE Active 2024-02 00:00: 00 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, UNSP Active 2024-02 00:00: 00 Allergies, Adverse Reactions, Alerts Allergy Name Allergy Type Status Severity Reaction(s) Onset Date Inactive Date Treating Clinician Comments NO KNOWN ALLERGIES Propensity to adverse reactions Active 2024-02 14:18: 51 Vital Signs Vital Name Observation Time Observation Value Commen ts Temperature 2025-01-25 08:41:00.000 98.1 [degF] Temperature 2025-01-20 11:50:00.000 97 [degF] Temperature 2025-01-13 14:00:00.000 97.9 [degF] BMI (%) 2025-01-13 14:00:00.000 23 kg/m2 Height 2025-01-13 14:00:00.000 62 [in_us] Pulse 2025-01-25 08:41:00.000 79 /min Pulse 2025-01-20 11:50:00.000 68 /min Pulse 2025-01-13 14:00:00.000 78 /min O2 Saturation (%) 2025-01-25 08:41:00.000 97 % O2 Saturation (%) 2025-01-20 11:50:00.000 99 % Respirations 2025-01-25 08:41:00.000 18 /min Respirations 2025-01-20 11:50:00.000 18 /min Respirations 2025-01-13 14:00:00.000 18 /min Weight (lbs) 2025-01-13 14:00:00.000 130 [lb_av] Systolic Blood Pressure 2025-01-25 08:41:00.000 112 mm [Hg] Systolic Blood Pressure 2025-01-20 11:50:00.000 122 mm [Hg] Systolic Blood Pressure 2025-01-13 14:00:00.000 128 mm [Hg] Diastolic Blood Pressure 2025-01-25 08:41:00.000 60 mm [Hg] Diastolic Blood Pressure 2025-01-20 11:50:00.000 64 mm [Hg] Diastolic Blood Pressure 2025-01-13 14:00:00.000 68 mm [Hg] Plan of Treatment Planned Activity Planned Date Details Comments Future Scheduled Test RN TO OBSE RVE, ASSESS, EVALUATE, AND DEVELOP AN INDIVIDUALIZED PLAN OF CARE. AGENCY MAY ACCEPT ORDERS FROM CONSULTING PHYSICIANS RN TO OBSERVE AND ASSESS, FORESTRY SUPPORT SPECIALIST/WARDROBE ATTENDANT TO OBSERVE FOR RISK FOR FALLS AND INSTRUCT IN FALL PREVENTION, HOME SAFETY, MEDICATION MANAGEMENT, INFECTION PREVENTION, AND NUTRITION MANAGEMENT. RN/FORESTRY SUPPORT SPECIALIST/WARDROBE ATTENDANT NURSE MAY PERFORM O2 SATURATION LEVEL ON ADMISSION AND PRN FOR RESP STATUS CHANGES FOR RN TO ASSESS/FORESTRY SUPPORT SPECIALIST TO OBSERVE PATIENT, WITH NOTIFICATION TO THE PHYSICIAN IF SATURATION IS 90% IN THE ABSENCE OF MORE SPECIFIC PARAMETERS FROM THE PHYSICIAN. AGENCY MAY PERFORM A RESUMPTION OF CARE VISIT FOLLOWING ANY HOSPITAL ADMISSION. RN/FORESTRY SUPPORT SPECIALIST/WARDROBE ATTENDANT TO MONITOR CO-MORBID CONDITIONS LISTED ON THE PLAN OF CARE AND ANY NEW CONDITIONS THAT PRESENT THEMSELVES DURING THIS EPISODE TO IDENTIFY CHANGES AND INTERVENE TO MINIMIZE COMPLICATIONS. [code = RN TO OBSERVE, ASSESS, EVALUATE, AND DEVELOP AN INDIVIDUALIZED PLAN OF CARE. AGENCY MAY ACCEPT ORDERS FROM CONSULTING PHYSICIANS RN TO OBSERVE AND ASSESS, FORESTRY SUPPORT SPECIALIST/WARDROBE ATTENDANT TO OBSERVE FOR RISK FOR FALLS AND INSTRUCT IN FALL PREVENTION, HOME SAFETY, MEDICATION MANAGEMENT, INFECTION PREVENTION, AND NUTRITION MANAGEMENT. RN/FORESTRY SUPPORT SPECIALIST/WARDROBE ATTENDANT NURSE MAY PERFORM O2 SATURATION LEVEL ON ADMISSION AND PRN FOR RESP STATUS CHANGES FOR RN TO ASSESS/FORESTRY SUPPORT SPECIALIST TO OBSERVE PATIENT, WITH NOTIFICATION TO THE PHYSICIAN IF SATURATION IS 90% IN THE ABSENCE OF MORE SPECIFIC PARAMETERS FROM THE PHYSICIAN. AGENCY MAY PERFORM A RESUMPTION OF CARE VISIT FOLLOWING ANY HOSPITAL ADMISSION. RN/FORESTRY SUPPORT SPECIALIST/WARDROBE ATTENDANT TO MONITOR CO-MORBID CONDITIONS LISTED ON THE PLAN OF CARE AND ANY NEW CONDITIONS THAT PRESENT THEMSELVES DURING THIS EPISODE TO IDENTIFY CHANGES AND INTERVENE TO MINIMIZE COMPLICATIONS.] Future Scheduled Test MEDICATION MANAGEMENT; RN/FORESTRY SUPPORT SPECIALIST/WARDROBE ATTENDANT TO REVIEW MEDICATIONS FOR INTERACTIONS, EFFECTIVENESS OF DRUG THERAPY, AND SIGNS/SYMPTOMS OF ADVERSE REACTIONS. MAY INSTRUCT AND REINFORCE MEDICATION TEACHING RELATED TO THE USE OF MEDICATIONS, DOSAGE, FREQUENCY, PURPOSE, SIDE EFFECTS, AND TO REPORT COMPLICATIONS. [code = MEDICATION MANAGEMENT; RN/FORESTRY SUPPORT SPECIALIST/WARDROBE ATTENDANT TO REVIEW MEDICATIONS FOR INTERACTIONS, EFFECTIVENESS OF DRUG THERAPY, AND SIGNS/SYMPTOMS OF ADVERSE REACTIONS. MAY INSTRUCT AND REINFORCE MEDICATION TEACHING RELATED TO THE USE OF MEDICATIONS, DOSAGE, FREQUENCY, PURPOSE, SIDE EFFECTS, AND TO REPORT COMPLICATIONS.] Future Scheduled Test RISK FOR H OSPITALIZATION; RN TO ASSESS/TEACH, WARDROBE ATTENDANT/FORESTRY SUPPORT SPECIALIST TO OBSERVE/TEACH PATIENT/CAREGIVER ON RISK FOR HOSPITALIZATION/EMERGENCY ROOM VISITS, TEACH SIGNS AND SYMPTOMS THAT PUT PATIENT AT RISK, WHEN TO NOTIFY NURSE/PHYSICIAN OF COMPLICATIONS/DECLINE, AND WHEN TO CALL 911. [code = RISK FOR HOSPITALIZATION; RN TO ASSESS/TEACH, WARDROBE ATTENDANT/FORESTRY SUPPORT SPECIALIST TO OBSERVE/TEACH PATIENT/CAREGIVER ON RISK FOR HOSPITALIZATION/EMERGENCY ROOM VISITS, TEACH SIGNS AND SYMPTOMS THAT PUT PATIENT AT RISK, WHEN TO NOTIFY NURSE/PHYSICIAN OF COMPLICATIONS/DECLINE, AND WHEN TO CALL 911.] Future Scheduled Test RESPIRATOR Y SYSTEM MANAGEMENT; RN TO ASSESS AND TEACH, FORESTRY SUPPORT SPECIALIST/WARDROBE ATTENDANT TO OBSERVE AND TEACH RELATED TO ALTERED RESPIRATORY STATUS TO MINIMIZE COMPLICATIONS AND REDUCE HOSPITALIZATION. [code = RESPIRATORY SYSTEM MANAGEMENT; RN TO ASSESS AND TEACH, FORESTRY SUPPORT SPECIALIST/WARDROBE ATTENDANT TO OBSERVE AND TEACH RELATED TO ALTERED RESPIRATORY STATUS TO MINIMIZE COMPLICATIONS AND REDUCE HOSPITALIZATION.] Future Scheduled Test PNEUMONIA MANAGEMENT; RN TO ASSESS AND TEACH, FORESTRY SUPPORT SPECIALIST/WARDROBE ATTENDANT TO OBSERVE AND TEACH SIGNS OF PNEUMONIA EXACERBATION AND PROVIDE EARLY INTERVENTIONS TO MINIMIZE RISK OF HOSPITALIZATION. [code = PNEUMONIA MANAGEMENT; RN TO ASSESS AND TEACH, FORESTRY SUPPORT SPECIALIST/WARDROBE ATTENDANT TO OBSERVE AND TEACH SIGNS OF PNEUMONIA EXACERBATION AND PROVIDE EARLY INTERVENTIONS TO MINIMIZE RISK OF HOSPITALIZATION.] Future Scheduled Test PAIN MANAG EMENT; RN TO ASSESS AND TEACH, WARDROBE ATTENDANT/FORESTRY SUPPORT SPECIALIST TO OBSERVE AND TEACH AND PROVIDE EDUCATION ON PAIN MANAGEMENT TECHNIQUES. [code = PAIN MANAGEMENT; RN TO ASSESS AND TEACH, WARDROBE ATTENDANT/FORESTRY SUPPORT SPECIALIST TO OBSERVE AND TEACH AND PROVIDE EDUCATION ON PAIN MANAGEMENT TECHNIQUES.] Future Scheduled Test FALL REDUC TION MANAGEMENT; RN TO ASSESS AND OBSERVE, FORESTRY SUPPORT SPECIALIST/WARDROBE ATTENDANT TO OBSERVE FALL RISK FACTORS AND EDUCATE PATIENT/CAREGIVER ON STRATEGIES TO MINIMIZE THE RISK OF FALLING. [code = FALL REDUCTION MANAGEMENT; RN TO ASSESS AND OBSERVE, FORESTRY SUPPORT SPECIALIST/WARDROBE ATTENDANT TO OBSERVE FALL RISK FACTORS AND EDUCATE PATIENT/CAREGIVER ON STRATEGIES TO MINIMIZE THE RISK OF FALLING.] Future Scheduled Test CARDIOVASC ULAR SYSTEM; RN TO ASSESS/TEACH, FORESTRY SUPPORT SPECIALIST/WARDROBE ATTENDANT TO OBSERVE/TEACH RELATED TO ALTERED CARDIOVASCULAR STATUS TO MINIMIZE COMPLICATIONS AND REDUCE HOSPITALIZATION. [code = CARDIOVASCULAR SYSTEM; RN TO ASSESS/TEACH, FORESTRY SUPPORT SPECIALIST/WARDROBE ATTENDANT TO OBSERVE/TEACH RELATED TO ALTERED CARDIOVASCULAR STATUS TO MINIMIZE COMPLICATIONS AND REDUCE HOSPITALIZATION.] Future Scheduled Test HEART FAIL URE; RN TO ASSESS/TEACH, FORESTRY SUPPORT SPECIALIST/WARDROBE ATTENDANT TO OBSERVE/TEACH CARDIOPULMONARY SYSTEM TO IDENTIFY SIGNS OF DECOMPENSATION AND INTERVENE TO MINIMIZE THE SEVERITY OF FLUID OVERLOAD. OBSERVE PATIENT ABILITY TO MONITOR AND RECORD DAILY WEIGHTS AND VITAL SIGNS, INCLUDING PULSE AND BLOOD PRESSURE; RECORD PATIENT REPORTED WEIGHT, OR WEIGH PATIENT NEEDED. REPORT INCREASED EDEMA OR WEIGHT GAIN OF >2 LBS IN 1 DAY OR >5 LBS IN 1 WEEK OR 5LBS OR MORE OVER TARGET WEIGHT. MAY MEASURE ABDOMINAL GIRTH IF UNABLE TO WEIGH. SCALES AND BP MONITOR TO BE PROVIDED IF NEEDED. [code = HEART FAILURE; RN TO ASSESS/TEACH, FORESTRY SUPPORT SPECIALIST/WARDROBE ATTENDANT TO OBSERVE/TEACH CARDIOPULMONARY SYSTEM TO IDENTIFY SIGNS OF DECOMPENSATION AND INTERVENE TO MINIMIZE THE SEVERITY OF FLUID OVERLOAD. OBSERVE PATIENT ABILITY TO MONITOR AND RECORD DAILY WEIGHTS AND VITAL SIGNS, INCLUDING PULSE AND BLOOD PRESSURE; RECORD PATIENT REPORTED WEIGHT, OR WEIGH PATIENT NEEDED. REPORT INCREASED EDEMA OR WEIGHT GAIN OF >2 LBS IN 1 DAY OR >5 LBS IN 1 WEEK OR 5LBS OR MORE OVER TARGET WEIGHT. MAY MEASURE ABDOMINAL GIRTH IF UNABLE TO WEIGH. SCALES AND BP MONITOR TO BE PROVIDED IF NEEDED.] Goal Patient Goal - T O STAY OUT OF THE HOSPITAL Goal Provider Goal - A PLAN OF CARE WILL BE ESTABLISHED THAT MEETS THE PATIENT S NEEDS. PATIENT WILL DEMONSTRATE OXYGEN SATURATION WITHIN NORMAL LIMITS OR PATIENT S OPTIMAL LEVEL ESTABLISHED BY THE PHYSICIAN THROUGHOUT CARE. CHANGES TO CO-MORBID CONDITIONS AND ANY NEW CONDITIONS WILL BE IDENTIFIED AND REPORTED TO THE PHYSICIAN. Goal Provider Goal - PATIENT/CAREGIVER TO VERBALIZE, AND CONSISTENTLY DEMONSTRATE EFFECTIVE, SAFE MANAGEMENT OF MEDICATION INCLUDING KNOWLEDGE OF EFFECTIVENESS, POTENTIAL SIDE EFFECTS AND DRUG REACTIONS AND WHEN TO CONTACT THE APPROPRIATE CARE PROVIDER. PATIENT/CAREGIVER WILL BE ABLE TO VERBALIZE UNDERSTANDING OF MEDICATION REGIMEN AND ACCURATELY TAKE MEDICATIONS PRESCRIBED WITHOUT ADVERSE EFFECTS BY 03/13/25 Goal Provider Goal - PATIENT/CAREGIVER WILL VERBALIZE UNDERSTANDING OF SIGNS AND SYMPTOMS THAT PUT THE PATIENT AT RISK FOR HOSPITALIZATION /EMERGENCY ROOM VISITS, WHEN TO NOTIFY NURSE/PHYSICIAN OF COMPLICATIONS/DECLINE AND WHEN TO CALL 911. Goal Provider Goal - PATIENT / CAREGIVER WILL VERBALIZE/DEMONSTRATE UNDERSTANDING OF MEASURES TO MANAGE ALTERED RESPIRATORY STATUS BY END OF EPISODE. Goal Provider Goal - PATIENT / CAREGIVER WILL VERBALIZE/DEMONSTRATE AN ABILITY TO ADHERE TO PNEUMONIA SELF-MANAGEMENT TO MINIMIZE COMPLICATIONS AND AVOID HOSPITALIZATION BY END OF EPISODE. Goal Provider Goal - PATIENT / CAREGIVER WILL VERBALIZE / DEMONSTRATE UNDERSTANDING OF PAIN CONTROL MEASURES BY 03/13/25 Goal Provider Goal - PATIENT/CAREGIVER WILL VERBALIZE/DEMONSTRATE UNDERSTANDING OF FALL RISK FACTORS AND IMPLEMENT STRATEGIES TO MINIMIZE FALL RISK. PATIENT/CAREGIVER WILL VERBALIZE/DEMONSTRATE AN ABILITY TO ADHERE TO FALL REDUCTION SELF-MANAGEMENT AND LIFE-STYLE CHANGES BY 03/13/25 Goal Provider Goal - PATIENT / CAREGIVER WILL VERBALIZE/DEMONSTRATE UNDERSTANDING OF MEASURES TO MANAGE ALTERED CARDIOVASCULAR STATUS BY 03/13/25 Goal Provider Goal - PATIENT / CAREGIVER WILL VERBALIZE/DEMONSTRATE AN ABILITY TO ADHERE TO SELF-MANAGEMENT OF HF TO MINIMIZE COMPLICATIONS AND AVOID HOSPITALIZATION BY END OF EPISODE. Encounters Start Date/Time End Date/Time Encounter Type Admission Type Attending [facility] Care Department Encounter ID Discharge Date Discharge Status Discharge Condition Discharge Reason Percent Goals Met 2025-01-13 00:00:00 2025-03-13 00:00:00 Outpatient NEW ADMISSION ADDIE SANDOVAL [facility] [id number]
== END 2025-01-30 13:56 | disposition home or self-care (01) ==
PROVIDERS: PCP Internal Medicine; Visit Provider Nurse Practitioner Family
DX: L29.9 Pruritus, unspecified (principal)

== ENCOUNTER → 2025-01-30 12:15 | Outpatient (BNVA) | payer MEDICARE, SELFPAY ==
[2023-09-24 15:56] VITALS: BMI 25.2
== END ==
PROVIDERS: PCP Internal Medicine; Visit Provider Nurse Practitioner Family
DX: L29.9 Pruritus, unspecified (principal)
CPT/HCPCS: 99212